=== PATIENT | female | born 1955 | race Caucasian/White ===

== ENCOUNTER 2017-06-20 05:50 | Day surgery (SDC) | payer MEDICARE, OTHER ==
[~2017-06-20] VITALS: Ht 160 cm; Wt 129.3 kg
[~2017-06-20 05:50] MED LIST: GABAPENTIN300 MG PO; LISINOPRIL-HCT1 EAC1 PO; LISINOPRIL-HCT1 EACH PO; MELOXICAM15 MG PO; NOVOLOG FL100 UNIT/1 SUB-Q; NYSTOP60 GM TOP; PROMETHAZINE HC25 M1 PO; PROVENTIL HFA6.7 GM INH; SERTRALINE HCL100 MG PO; SIMVASTATIN10 MG PO; SPACE CHAMBER1 EACH MC; TOUJEO SOL300 UNIT/1 SUB-Q; ZOFRAN ODT4 MG SL
--- NOTE | 2017-06-20 06:44 | NUR ---
0600 VOMITING APPROX 50MLS YELLOW BILE FLUID.NEED BLOOD DRAW AND IV START.
--- NOTE | 2017-06-20 08:19 | NUR ---
06/20/17 0819 [facility] 97% O2 REMOVED. PT PASSING LARGE AMOUNTS OF AIR FROM COLON.
--- NOTE | 2017-06-21 09:22 | OR ---
[facility] [address], [place] [address] Signed DATE OF PROCEDURE: 06/20/17 PREOPERATIVE DIAGNOSES Nausea and vomiting. Diabetic gastroparesis. History of diarrhea. Gastroesophageal reflux disease. POSTOPERATIVE DIAGNOSES Moderate gastroduodenitis. Multiple shallow antral gastric ulcers. Moderate distal esophagitis. Internal hemorrhoids. PROCEDURES PERFORMED Esophagogastroduodenoscopy with CLOtest and biopsies of the duodenum, pyloric bulb antrum and GE junction. Colonoscopy with random colon biopsies. ESTIMATED BLOOD LOSS: None. INDICATIONS A 62-year-old, diabetic f emale with known gastroparesis and acid reflux. She also has a long history of diarrhea. Lately, she has been having more and more trouble with nausea and vomiting. She tells me she has never had upper endoscopy. She did have a colonoscopy more than 10 years ago and to her knowledge that was negative. It was performed by Dr. Lorenz in [place], [place]. There is no family history of colon cancer or polyps. In the office, I gave her a pamphlet on both upper and lower endoscopy. We reviewed the nature of the 2 tests along with the risks including, but not limited to gas bloating, crampy abdominal pain bleeding perforation requiring surgery, and missed diagnosis. We also discussed the need for IV conscious sedation. Given her body mass index of 51 with a very heavy thick neck and her multiple medical comorbidities including her diabetes, we asked that an anesthesia provider help us with increased monitoring and sedation with Propofol. That proved to be a wide wang decision. She had expressed understanding and wished to proceed. PROCEDURE IN DETAIL Maricruz was taken into our endoscopy suite and placed in the supine semi-recumbent position. The posterior oropharynx was anesthetized with Hurricaine spray. A bite block was utilized for the case. She was given IV sedation with Propofol per our nurse cone trucker. The adult gastroscope was introduced and advanced under direct visualization of the camera out into the third portion of the duodenum. The 2nd and 3rd Electronically Signed By: GENEVA FELIX MD 06/21/17 0922 PATIENT NAME: MARICRUZ LINN OPERATIVE REPORT DATE OF : 55 PHYSICIAN: GENEVA FELIX MD REPORT #: [id number] REPORT IS CONFIDENTIAL AND NOT TO BE RELEASED WITHOUT AUTHORIZATION [facility] [address], [place] [address] Signed portions of the duodenal were unremarkable. We went ahead and took a biopsy of the duodenum because of the history of diarrhea. The pyloric channel, however, showed significant inflammatory changes but no obvious ulcerations. We went ahead and took a biopsy of the pyloric channel, as well. Once back in the stomach, she had diffuse moderate punctate hemorrhagic gastritis. She had multiple small shallow ulcers in the antrum. We went and took a biopsy of the antrum for pathologic review as well as CLOtest. Upon retroflexion of the scope, this continued in the upper stomach, although to a lesser degree. She does not appear to have an obvious hiatal hernia. There is no gastric or esophageal varices. The scope was withdrawn up through the area of the GE junction, which was compliant without stricture. The GE junction and distal esophagus were irritated consistent with vomiting. We took a biopsy at the GE junction. The middle and upper esophagus were unremarkable. After this, the gas was suctioned out the gastroscope removed. Maricruz tolerated the procedure quite well. Maricruz was then rotated into the left lateral decubitus position, she was maintained on IV sedation with the Propofol. A digital rectal exam was performed and this was unremarkable. The adult colonoscope was introduced and advanced all around into the cecum under direct visualization of the camera. Maricruz has a fairly long redundant colon. Her prep was overall good. There was some particulate stool matter I could not suction out completely. The scope was then slowly withdrawn. We saw no pathology through the entire colon or rectum. We went ahead and took several random biopsies of the colon because of the history of diarrhea. Upon retroflexion of the scope, she does have moderate internal hemorrhoid columns. After this, the gas was suctioned out and the colonoscope removed. Maricruz tolerated the procedure quite well. RECOMMENDATIONS Maricruz needs to consider doubling her proton pump inhibitor for 6-8 weeks to see if stomach will clear. If she continues to have trouble, she may need a pyloroplasty to help empty the stomach secondary to the gastroparesis. Otherwise, I will see her back in the office in 7-14 days to review her results. MD TWYLA Loya/Vivek /[id number] Electronically Signed By: GENEVA FELIX MD 06/21/17 0922 PATIENT NAME: MARICRUZ LINN [facility] OPERATIVE REPORT DATE OF : 55 PHYSICIAN: GENEVA FELIX MD REPORT #: [id number] REPORT IS CONFIDENTIAL AND NOT TO BE RELEASED WITHOUT AUTHORIZATION [place] [phone] Signed cc: JULIO Messina Electronically Signed By: GENEVA FELIX MD 06/21/17921 PATIENT NAME: MARICRUZ LINN OPERATIVE REPORT DATE OF : 55 PHYSICIAN: GENEVA FELIX MD REPORT #: [id number] REPORT IS CONFIDENTIAL AND NOT TO BE RELEASED WITHOUT AUTHORIZATION
[2017-09-22] MEDS ORDERED: FUROSEMIDE40 MG PO (12:13)
[2017-09-22] MEDS ORDERED: LISINOPRIL20 MG PO (12:13)
[2017-09-22] MEDS ORDERED: PREDNISONE20 MG PO (12:13)
== END 2017-06-20 08:53 | disposition home or self-care (01) ==
LOC: OPS 05:50 → DS 05:50 → OPS 06:45
PROVIDERS: Colon & Rectal Surgery
PROC: 0DB48ZX Excision of Esophagogastric Junction, Via Natural or Artificial Opening Endoscopic, Diagnostic (ICD-10-PCS; 2017-06-20)
PROC: 0DB68ZX Excision of Stomach, Via Natural or Artificial Opening Endoscopic, Diagnostic (ICD-10-PCS; 2017-06-20)
PROC: 0DB78ZX Excision of Stomach, Pylorus, Via Natural or Artificial Opening Endoscopic, Diagnostic (ICD-10-PCS; 2017-06-20)
PROC: 0DBE8ZX Excision of Large Intestine, Via Natural or Artificial Opening Endoscopic, Diagnostic (ICD-10-PCS; principal; 2017-06-20 06:45)
PROC: 0DB98ZX Excision of Duodenum, Via Natural or Artificial Opening Endoscopic, Diagnostic (ICD-10-PCS; 2017-06-20 06:45)
DX: K29.51 Unspecified chronic gastritis with bleeding (principal); K29.80 Duodenitis without bleeding; K64.8 Other hemorrhoids; R19.7 Diarrhea, unspecified; E11.43 Type 2 diabetes mellitus with diabetic autonomic (poly)neuropathy; K31.84 Gastroparesis; E11.42 Type 2 diabetes mellitus with diabetic polyneuropathy; K21.9 Gastro-esophageal reflux disease without esophagitis; I10 Essential (primary) hypertension; J45.909 Unspecified asthma, uncomplicated; G47.33 Obstructive sleep apnea (adult) (pediatric); E78.5 Hyperlipidemia, unspecified; E66.01 Morbid (severe) obesity due to excess calories; G89.29 Other chronic pain; M54.5 Low back pain; F32.9 Major depressive disorder, single episode, unspecified; Z90.710 Acquired absence of both cervix and uterus; Z99.81 Dependence on supplemental oxygen; Z68.43 Body mass index [BMI] 50.0-59.9, adult; Z98.890 Other specified postprocedural states; Z88.1 Allergy status to other antibiotic agents; Z79.899 Other long term (current) drug therapy
CPT/HCPCS: 00740; 80053; 86677; 88305; J2250; J2405; J2704; J3010; J7120

== ENCOUNTER 2017-08-05 00:45 | Emergency (ER) | payer MEDICARE, OTHER ==
[~2017-08-05] VITALS: Ht 160 cm; Wt 129.3 kg
[2017-08-05] MEDS ORDERED: LISINOPRIL10 MG PO (01:05)
[2017-08-05] MEDS ORDERED: SYMBICORT 16010.2 GM INH (01:06)
[2017-08-05] MEDS ORDERED: OMEPRAZOLE20 MG PO (01:06)
--- NOTE | 2017-08-05 07:28 | EKG ---
[facility] [address] [facility] [place] [address] Signed Normal sinus rhythm Septal infarct , age undetermined Abnormal ECG When compared with ECG of 14-JUN-2017 10:11, T wave inversion more evident in Lateral leads Confirmed by GREG PALOMARES MD ([id number]) on 08/05/2017 7:28:12 AM Electronically Signed By: GREG PALOMARES MD 08/05/17 0728 PATIENT NAME: LINNMARICRUZ Electrocardiogram DATE OF : 55 PHYSICIAN: GREG PALOMARES MD REPORT #: [id number] REPORT IS CONFIDENTIAL AND NOT TO BE RELEASED WITHOUT AUTHORIZATION
[2017-09-22] MEDS ORDERED: PREDNISONE20 MG PO (12:13)
[2017-09-22] MEDS ORDERED: LISINOPRIL20 MG PO (12:13)
[2017-09-22] MEDS ORDERED: FUROSEMIDE40 MG PO (12:13)
== END 2017-08-05 05:03 | disposition home or self-care (01) ==
LOC: ED 00:45
DX: J45.901 Unspecified asthma with (acute) exacerbation (principal); J18.9 Pneumonia, unspecified organism; R91.1 Solitary pulmonary nodule; I10 Essential (primary) hypertension; E78.00 Pure hypercholesterolemia, unspecified; F32.9 Major depressive disorder, single episode, unspecified; E11.43 Type 2 diabetes mellitus with diabetic autonomic (poly)neuropathy; K31.84 Gastroparesis; E66.9 Obesity, unspecified; Z90.710 Acquired absence of both cervix and uterus; Z90.89 Acquired absence of other organs; Z88.8 Allergy status to other drugs, medicaments and biological substances; Z79.899 Other long term (current) drug therapy; Z79.4 Long term (current) use of insulin
CPT/HCPCS: 71020; 71260; 80053; 83880; 84484; 85025; 85379; 93005; 93010; 96374; 99284; J2405; Q9967

== ENCOUNTER 2017-08-07 14:01 | Emergency (ER) | payer MEDICARE, OTHER ==
[~2017-08-07] VITALS: Ht 160 cm; Wt 129.3 kg
[~2017-08-07 14:01] MED LIST changes: +LISINOPRIL10 MG PO; +OMEPRAZOLE20 MG PO; +SYMBICORT 16010.2 GM INH
[2017-08-07] MEDS ORDERED: LEVAQUIN500 MG PO (14:49)
[2017-08-07] MEDS ORDERED: VIRTUSSIN AC L118 ML PO (14:49)
[2017-09-22] MEDS ORDERED: FUROSEMIDE40 MG PO (12:13)
[2017-09-22] MEDS ORDERED: PREDNISONE20 MG PO (12:13)
[2017-09-22] MEDS ORDERED: LISINOPRIL20 MG PO (12:13)
== END 2017-08-07 15:06 | disposition home or self-care (01) ==
LOC: ED 14:01
DX: J44.0 Chronic obstructive pulmonary disease with (acute) lower respiratory infection (principal); J44.1 Chronic obstructive pulmonary disease with (acute) exacerbation; J20.9 Acute bronchitis, unspecified; I10 Essential (primary) hypertension; E11.43 Type 2 diabetes mellitus with diabetic autonomic (poly)neuropathy; K31.84 Gastroparesis; E78.00 Pure hypercholesterolemia, unspecified; F32.9 Major depressive disorder, single episode, unspecified; E66.01 Morbid (severe) obesity due to excess calories; Z90.710 Acquired absence of both cervix and uterus; Z90.89 Acquired absence of other organs; Z88.8 Allergy status to other drugs, medicaments and biological substances; Z79.899 Other long term (current) drug therapy; Z79.4 Long term (current) use of insulin
CPT/HCPCS: 99283

== ENCOUNTER 2017-09-18 14:25 | Emergency (ER) | payer MEDICARE, OTHER ==
[~2017-09-18] VITALS: Ht 160 cm; Wt 140.6 kg
[~2017-09-18 14:25] MED LIST changes: +LEVAQUIN500 MG PO; +VIRTUSSIN AC L118 ML PO
[2017-09-18] MEDS ORDERED: LEVAQUIN500 MG PO (18:02)
--- NOTE | 2017-09-19 07:16 | EKG ---
[facility] [address] [facility] [place] [address] Signed Sinus tachycardia Low voltage QRS Septal infarct (cited on or before 05-AUG-2017) Abnormal ECG When compared with ECG of 05-AUG-2017 00:54, T wave inversion no longer evident in Lateral leads Confirmed by GREG PALOMARES MD ([id number]) on 09/19/2017 7:16:35 AM Electronically Signed By: GREG PALOMARES MD 09/19/17 0716 PATIENT NAME: MARICRUZ LINN SHANNA Electrocardiogram DATE OF : 55 PHYSICIAN: GREG PALOMARES MD REPORT #: [id number] REPORT IS CONFIDENTIAL AND NOT TO BE RELEASED WITHOUT AUTHORIZATION
[2017-09-22] MEDS ORDERED: PREDNISONE20 MG PO (12:13)
[2017-09-22] MEDS ORDERED: FUROSEMIDE40 MG PO (12:13)
[2017-09-22] MEDS ORDERED: LISINOPRIL20 MG PO (12:13)
== END 2017-09-18 18:37 | disposition home or self-care (01) ==
LOC: ED 14:25
DX: J40 Bronchitis, not specified as acute or chronic (principal); E11.65 Type 2 diabetes mellitus with hyperglycemia; I10 Essential (primary) hypertension; J45.909 Unspecified asthma, uncomplicated; E11.43 Type 2 diabetes mellitus with diabetic autonomic (poly)neuropathy; K31.84 Gastroparesis; Z90.710 Acquired absence of both cervix and uterus; Z79.899 Other long term (current) drug therapy; Z79.4 Long term (current) use of insulin; F32.9 Major depressive disorder, single episode, unspecified; Z86.711 Personal history of pulmonary embolism
CPT/HCPCS: 71010; 80053; 81001; 83690; 83880; 84484; 85025; 85610; 93005; 93010; 94640; 96361; 96374; 99284; J7030

== ENCOUNTER → 2017-09-22 | Emergency (ER) | payer MEDICARE, OTHER ==
[~2017-09-22] VITALS: Ht 160 cm; Wt 140.6 kg
[~2017-09-22] MED LIST changes: +FUROSEMIDE40 MG PO; +LISINOPRIL20 MG PO; +PREDNISONE20 MG PO
--- NOTE | 2017-09-22 22:06 | EKG ---
[facility] [address] [facility] [place] [address] Signed Sinus rhythm with premature atrial complexes Low voltage QRS Anteroseptal infarct (cited on or before 05-AUG-2017) Abnormal ECG When compared with ECG of 18-SEP-2017 15:41, premature atrial complexes are now present Confirmed by CONRAD SHOEMAKER MD ([id number]) on 09/22/2017 10:06:02 PM Electronically Signed By: CONRAD SHOEMAKER MD 09/22/17 2206 PATIENT NAME: MARICRUZ LINN SHANNA Electrocardiogram DATE OF : 55 PHYSICIAN: CONRAD SHOEMAKER MD REPORT #: [id number] REPORT IS CONFIDENTIAL AND NOT TO BE RELEASED WITHOUT AUTHORIZATION
== END ==
LOC: ED 10:11
DX: R06.00 Dyspnea, unspecified (principal); J81.1 Chronic pulmonary edema; R60.0 Localized edema; E11.9 Type 2 diabetes mellitus without complications; I10 Essential (primary) hypertension; E78.00 Pure hypercholesterolemia, unspecified; F32.9 Major depressive disorder, single episode, unspecified; J45.909 Unspecified asthma, uncomplicated; E66.9 Obesity, unspecified; Z90.710 Acquired absence of both cervix and uterus; Z90.89 Acquired absence of other organs; Z88.8 Allergy status to other drugs, medicaments and biological substances; Z79.899 Other long term (current) drug therapy; Z79.4 Long term (current) use of insulin
CPT/HCPCS: 80053; 83880; 85025; 93005; 93010; 94640; 99284; J7512

== ENCOUNTER 2018-02-07 04:49 | Emergency (ER) | payer MEDICARE, OTHER ==
[~2018-02-07] VITALS: Ht 160 cm; Wt 140.6 kg
[2018-02-07] MEDS ORDERED: TAMIFLU75 MG PO (05:47)
== END 2018-02-07 05:57 | disposition home or self-care (01) ==
LOC: ED 04:49
DX: J11.1 Influenza due to unidentified influenza virus with other respiratory manifestations (principal); I10 Essential (primary) hypertension; E78.00 Pure hypercholesterolemia, unspecified; F32.9 Major depressive disorder, single episode, unspecified; E11.43 Type 2 diabetes mellitus with diabetic autonomic (poly)neuropathy; K31.84 Gastroparesis; J45.909 Unspecified asthma, uncomplicated; E66.9 Obesity, unspecified; Z88.8 Allergy status to other drugs, medicaments and biological substances; Z79.899 Other long term (current) drug therapy; Z79.4 Long term (current) use of insulin
CPT/HCPCS: 96372; 99283; J1885

== ENCOUNTER 2018-02-08 07:00 | Inpatient (IN) | payer MEDICARE, OTHER ==
[~2018-02-08] VITALS: Ht 160 cm; Wt 140.7 kg
[~2018-02-08 07:00] MED LIST changes: +TAMIFLU75 MG PO
--- NOTE | 2018-02-08 10:00 | NUR ---
PATIENT TO FLOOR FROM ED, PATIENT ADMITTED WITH INFLUENZA AND PNEAMONIA. PATINET EXPERIENCEING HYPERGYLCEMIA, SLIDING SCALE INITIATED. PATIENT REPORTS SHE HAS NOT BEEN TAKING HER LASIX AND HAS NOT PROVIDED HERSELF WITH ANY INSULIN SLIDING SCALE, SECONDARY TO FEELING LOSS OF APPETITE. PATIENT ALSO REPORTED NO BM X4 DAYS, ADMINISTERED SUPPOSITORY AND MOM. PATIENT'S PANNUS EXCORIATED WITH YEASTAL INFECTION, NIO FOR NYSTATIN POWDER. DYE MACHINE TENDER ASSISTING PATIENT WITH SHOWER.
--- NOTE | 2018-02-08 11:50 | NUR ---
PATIENT ON COMMODE, NEEDED HELP WIPING AFTER.2 2 PERSON ASSIST IN SHOWER WITH THIS VASU AND JUANA. PATIENTS SKIN IS VERY INFLAMED UNDER LEFT BREAST AND PANNUS AREA, ESPECIALLY LEFT SIDE. WASHED AND DRIED THIS ARE THOROUGHLY. VISITOR IN TO SEE PATIENT. CALL LIGHT IN REACH
--- NOTE | 2018-02-08 13:05 | NUR ---
PATIENT CALLED FROM COMMODE, NEEDING HELP WIPING. THIS COUNTERSINKER ASSISTED HER AND PATIENT GOT BACK INTO BED. VISITOR BROUGHT PATIENTS CPAP AMCHINE IN AND PATIENT PLANNED ON WEARING IT WHILE NAPPING. CALL LIGHT IN REACH. NO OTHER NEEDS ATT
--- NOTE | 2018-02-08 14:21 | NUR ---
PATIENT LYING IN BED, CPAP ON. VITALS AND I/OS DONE. RT IN ROOM WITH PATIENT. CALL LIGHT IN REACH.
--- NOTE | 2018-02-08 17:57 | NUR ---
PATIENT LYING IN BED, O2 MASK ON. VITALS NIA/OS DONE. CALL LIGHT IN REACH
--- NOTE | 2018-02-08 17:57 | NUR ---
PATIENT BLOOD SUGAR 452, REPORTED TO DR. SHOEMAKER. NEW ORDER FOR INCREASED SLIDING SCALE. ADMINISTERED 35 UNITS NOVOLOG PER SLIDING SCALE. SHEREE JACOBSON AND SOLE JACOBSON VERIFIED DOSE OF INSULIN ON SLIDING SCALE. VS STABLE, PATIENT BREATHING EASY. ABLE TO AMBULATE INTO BATHROOM WITH STBY. COMPLAINTS OF HEADACHE 4/10 ON PAINS SCALE. DIMMED LIGHTS IN ROOM.
--- NOTE | 2018-02-08 18:35 | NUR ---
PATIENT ATE 100% OF DINNER, ADMINISTERED 25 UNITS OF INSULIN FOR MEAL COVERAGE PER ORDER. PATIENT RESTING BACK IN BED. ADMINISTERED TYLENOL PRN. PATIENT BREATHING EASY, OXYGEN SATURATION 95% ON 2L OXIMASK. PATIENT TOLERATING ACTIVITY IN ROOM, AMBULATING INTO BATHROOM.
--- NOTE | 2018-02-08 18:37 | NUR ---
PATIENT TO FLOOR ADMITTED WITH INFLUENZA AND PNEAMONIA. 2L OXIMASK SATURATION 95%, BREATHING EASY. CONTINIOUS PULSE OX ON, PATIENT USES CPAP WHEN NAPPING AND AT NIGHT. CBG 452 AND CONTINUES TO TREND UPWARD THROUGHOUT DAY. DR. SHOEMAKER ACTIVELY MAKING CHANGES TO SLIDING SCALE AND BASAL AMOUNT WITH MEALS. PATIENT EATING WELL, 100% AT DINNER- A OPEN FACED TURKEY SANDWHICH WITH POTATOES AND A FRUIT CUP. HAS COMPLAINTS OF MIGRAINE RATES 5/10 ON PAIN SCALE, ADMINISTERED PRN TYLENOL. PATIENT CALLS ROBERTO, HAS HX OF GLF AT HOME. LARGE BM TODAY, ADMINISTERED MOM AND SUPPOSITORY. URINE OUTPUT HAS INCREASED, ABLE TO AMBULATE INTO BATHROOM.
--- NOTE | 2018-02-08 19:15 | NUR ---
BEDSIDE REPORT RECEIVED FROM KAVON BRISCOE. PT SLEEPING IN ROOM WITH CPAP ON, SPO2 88%, RT PHONED AT THIS TIME TO ASSIST IN HAVING OXYGEN BLED INTO CPAP. PT AWAKENS, OXYMASK ON AT THIS TIME. IVF INFUSING WNL. PT HAS NO REQUESTS AT THIS TIME, BED ALARM IS SET. CALL LIGHT IN REACH.
--- NOTE | 2018-02-08 19:45 | NUR ---
BED ALARM SOUNDING, PT ASSISTED TO RESTROOM, SBA, GAIT UNSTEADY. 400 ML VOID, ASSISTED PT TO CLEAN LATANYA AREA, EDUCATION PROVIDED RE HYGIENE. PT BACK IN BED, SPO2 90% ON 2L OXYMASK. BED ALARM ON. IVF INFUSING WNL. CALL LIGHT IN REACH. EDUCATION PROVIDED TO PT TO USE CALL LIGHT.
--- NOTE | 2018-02-08 20:43 | NUR ---
VITALS, IS AND OS AND ASSESSMENT COMPLETE. RT IN ROOM FOR NEBULIZER, 2L OXGYEN BLED INTO CPAP FOR SLEEP. 30 UNITS SS INSULIN ADMINISTERED FOR CBG 436. PT SITTING UP AT SIDE OF BED 94% ON 2L OXYMASK. FINE CRACKLES AUSCULTATED BILATERALLY LOWER LUNGS. PT DENIES SOB. RATES PAIN 7/10 IN BACK, HIPS, HEADACHE IMPROVED PER PT. PT GIVEN DIET SPRITE, ICE WATER. NYSTATIN POWDER AND PILLOW CASE UNDER PANIS, REDNESS NOTED, SKIN INTACT. IV FLUSHED WNL. CALL LIGHT IN REACH.
--- NOTE | 2018-02-08 21:38 | NUR ---
Charge nurse rounding note: - Pt awake, sitting edge of bed. O2 2L oxy mask, pt takes off at times, redirected to place back on. Con tpulse ox sats 91% room air, 95% with oxymask. warm wash cloth given. pt doing own hs care. Bed alarm on, Pt continues on droplet isolation.
--- NOTE | 2018-02-08 22:19 | NUR ---
up to brp, voided dark yellow urine. Requried one assist. Back to bed, O2 2L Oxymask, cont pulse ox in place sats 92% on retunr, no c/o sob, tolerated well
--- NOTE | 2018-02-08 23:05 | NUR ---
CHECKED ON PT, PT SLEEPING, CPAP ON, 4L OXYGEN BLED INTO CPAP, SPO2 90-91%. RT KARTIK PHONED BY COOK BOAT TESHA TO NOTIFY DUE TO CONNECTION OF OXYGEN AT BASE OF MACHINE. WILL CONTINUE TO CLOSELY MONITOR. PT BREATHING NON-LABORED, EYES CLOSED.
--- NOTE | 2018-02-09 00:11 | NUR ---
REASSESSED PT, SPO2 93% ON CPAP WITH 4L OXYGEN BLED INTO CPAP MACHINE AT BASE. PT APPEARS TO BE SLEEPING ON SIDE, VISIBLE CHEST RISE. LIGHTS OFF IN ROOM.
--- NOTE | 2018-02-09 02:05 | NUR ---
CALL LIGHT ANSWERED, SBA WITH FWW TO RESTROOM FOR VOID. PT AMBULATED WELL WITH 2L OXYGEN BY NC, 96% W AMBULATION. BACK TO BED. LUNGS CLEAR IN UPPER LOBES BILATERALLY, FINE CRACKLES NOTED BILATERALLY LOWER LOBES. PT DENIES ANY PAIN AT THIS TIME. BOWEL TONES ACTIVE X 4. CPAP BACK ON PT, ASSISTED TO REPOSITION BACK TO BED, CPAP ON WITH 4L OXYGEN, SPO2 94%. LIGHTS OFF IN ROOM, CALL LIGHT IN REACH. BED ALARM SET.
--- NOTE | 2018-02-09 02:45 | NUR ---
VITAL SIGNS COMPLETE AT THIS TIME, MANUAL BP 136/78, HR 76, SPO2 92% ON CPAP WITH 4L OXYGEN, AFEBRILE. CBG REASSESSED, 249. LIGHTS OFF IN ROOM. BED ALARM SET, NEW BAG OF IVF INFUSING WNL.
--- NOTE | 2018-02-09 04:00 | NUR ---
CALL LIGHT ANSWERED, PT GIVEN ADDITIONAL PILLOW REQUESTED. SPO2 93% ON CPAP. BED ALARM SET, IVF INFUSING, CALL LIGHT IN REACH.
--- NOTE | 2018-02-09 05:46 | NUR ---
VITALS AND IS AND OS COMPLETE. PT STANDING WEIGHT 302.1 LBS, 137 KG. PT BACK IN BED, DISTANT EXW HEARD BILATERALLY UPPER LOBES, FINE CRACKLES IN BASES BILATERALLY, RT PHONED FOR PRN NEBULIZER AT THIS TIME. PT BACK IN BED, CPAP ON WITH 4L OXYGEN, PT C/O SOB AFTER AMBULATING TO RESTROOM WITH SBA AND FWW, HR 92. CALL LIGHT IN REACH. PT REQUESTING DIET SPRITE, WATER.
--- NOTE | 2018-02-09 06:34 | NUR ---
PT ON CPAP W 4L OXYGEN FOR SLEEP THROUGHOUT NIGHT, USING 2L OXYMASK AT REST WHILE AWAKE TO MAINTAIN SATURATIONS >90%. PT RECEIVED PRN NEB X 1. PAIN CONTROLLED WITH TYLENOL. PT HAS DRY COUGH THROUGHOUT SHIFT, NON-PRODUCTIVE. IVF INFUSING THROUGHOUT SHIFT WNL. SBA WITH FWW TO RESTROOM FOR VOIDS, SUFFICIENT OUTPUT.
--- NOTE | 2018-02-09 06:57 | NUR ---
CALL LIGHT ANSWERED, PT STATES "I'M GOING TO THROW UP". PT HAS EMESIS BAG, NO EMESIS AT THIS TIME. PRN ZOFRAN IV ADMINISTERED. PT SITTING UP AT SIDE OF BED, CPAP BACK ON, SPO2 94% WHEN PROMPTED, PT HAD MASK OFF AND SPO2 87%. CALL LIGHT IN REACH.
--- NOTE | 2018-02-09 07:05 | NUR ---
BEDSIDE HANDOFF REPORT RECEIVED FROM PRICING CLERK RN. PT RESTING IN BED, WEARING CPAP. IV FLUIDS INFUSING LR AT 150ML/HR. PT DENIES NEEDS AT THIS TIME. BED ALARM ON.
--- NOTE | 2018-02-09 09:15 | NUR ---
PT SITTING ON EDGE OF BED. PT NAUSEATED, VOMITING, MD NOTIFED, NEW ORDER FOR COMPAZINE, 5 MG IV COMPAZINE GIVEN. PT ON OXYMASK 2L, O2 SATS 92%, LUNG SOUNDS CLEAR WITH COARSE BASES. BOWEL TONES ACTIVE. PT ATE SMALL AMOUNT OF BREAKFAST, 25 UNITS CORRECTIONAL INSULIN HELD PER ORDER, GIVEN 5 UNITS SS NOVOLOG AND 35 UNITS LEVEMIR. PT WIHTOUT EDEMA, CMS INTACT. IV INFUSING LR AT 150 ML/HR, FLUSHED PATENT, IV ABX GIVEN. PT REQUESTING TYLENOL FOR HEADAHCE, 500 MG GIVEN. PT ASSISTED TO BATHROOM, SBA. DISCUSSED PLAN OF CARE. PT DENIES OTHER NEEDS AT THIS TIME.
--- NOTE | 2018-02-09 10:52 | EKG ---
[facility] [address] [facility] [place] [address] Signed Normal sinus rhythm with sinus arrhythmia Low voltage QRS Possible Anterolateral infarct (cited on or before 18-SEP-2017) Abnormal ECG When compared with ECG of 22-SEP-2017 10:21, premature atrial complexes are no longer present Confirmed by CONRAD SHOEMAKER MD ([id number]) on 02/09/2018 10:52:23 AM Electronically Signed By: CONRAD SHOEMAKER MD 02/09/18 1052 PATIENT NAME: MARICRUZ LINN SHANNA Electrocardiogram DATE OF : 55 PHYSICIAN: CONRAD SHOEMAKER MD REPORT #: [id number] REPORT IS CONFIDENTIAL AND NOT TO BE RELEASED WITHOUT AUTHORIZATION
--- NOTE | 2018-02-09 11:45 | NUR ---
PT WITH INCREASED WORK OF BREATHING AND OXYGEN DEMAND, PT LUNG SOUNDS WITH COARSE CRACKLES THROUGHOUT. IV INFUSION STOPPED. MD NOTIFIED AND ASKED TO COME TO BEDSIDE. VERBAL ORDER TO GIVEN 20 MG IV LASIX, GIVEN. ORDER TO PLACE RODRIGUEZ. ORDER FOR STAT CHEST XRAY. PT O2 SATS 88-90% ON 10L WITH HOME CPAP. FOLY CATH PLACED. CHEST XRAY COMPLTED. VERBAL ORDER TO DISCONTINUE IV FLUIDS. PT TO BE TRANSFERED TO CCU. RTT AT BEDSIDE, ASSISTING WITH CPAP AND OXYGEN.
--- NOTE | 2018-02-09 11:50 | NUR ---
62 YR OLD FEMALE PATIENT OF DR. SHOEMAKER ADMITTED TO CCU FROM MED-SURG VIA BED WITH DX OF RESP DISTRESS/PNEUMONIA. IS FLU +. IS IN DROPLET PRECAUTIONS. BIPAP APPLIED AT 50% FIO2 I=18, E=8. IS ABLE TO SAY FEW WORDS. IS DYSPNIC, FACE FLUSHED. RODRIGUEZ CATH PATENT.
--- NOTE | 2018-02-09 12:30 | NUR ---
ACCUCHECK-196, DR. SHOEMAKER AWARE. ROUTINE INSULIN [address] SHOEMAKER AWRE PT NOT EATING AT THIS TIME.
--- NOTE | 2018-02-09 13:30 | NUR ---
SITTING UP AT BEDSIDE WITH OXYMASK ON AT 4 L.
--- NOTE | 2018-02-09 13:45 | NUR ---
LAYING BACK DOWN. BIPAP REAPPLIED. BLOOD CULTURES DRAWN EARLIER.
--- NOTE | 2018-02-09 15:00 | NUR ---
ASLEEP WITH BIPAP ON RR-26 TO 30 BPM.
--- NOTE | 2018-02-09 18:15 | NUR ---
ASLEEP. REMAINS ON BIPAP. NO FUTHER CHANGES.
--- NOTE | 2018-02-09 19:04 | NUR ---
DR. SHOEMAKER UPDATED ON U/O. LR AT 75 ML/HR ORDERED AND HUNG.
--- NOTE | 2018-02-09 20:14 | NUR ---
PT WANTING TO SIT AT EDGE OF BED. ASSISTED TO THIS POSITION. OFF BIPAP BRIEFLY BUT BACK ON FOR NEB TX. OFF AFTERWARD TO TAKE GLUCERNA IS HUNGRY. ALSO GIVEN 500MG TYLENOL PO FOR TEMP 103.1 AND PT C/O MON[place] 06/21. LIGHTS LOW TO HLEP WITH [place]. BACK IN BED. HAS INC WORK OF BREATHING WITH ANY EXERTION. CATH CARE DONE. NYSTATIN TO REDDENED AREAS UNDER PANNIS, LT SIDE IS MORE REDDENED THAN RT.
--- NOTE | 2018-02-09 20:51 | NUR ---
DR SHOEMAKER CALLED RE BS, WHILE ON PHONE PT IN TO PSVT UP TO 185 LASTING ABOUT [address] SHOEMKAER NOW IN DEPT. PT GIVEN 5MG LOPRESSOR IV.
--- NOTE | 2018-02-09 21:16 | NUR ---
PT RESTING DOZING, RR STILL 28. TORRADOL 15MG IV GIVEN FOR [place] AND FEVER.
--- NOTE | 2018-02-09 22:22 | NUR ---
PT STARTING TO SIT AT EDGE OF BED ON OWN. REMINDED NOT TO GET UP WITHOUT CALLING. CALL LIGHT HAD JUST FALLEN TO FLOOR. ASSISTED TO SIT AT BEDSIDE. PT THEN FELT LIKE WAS GOING TO HAVE BM. ASSISTED TO COMMODE PT IS UNSTEADY ON FEET. PASSED GAS, BACK TO BED. ON OXYMASK AT 4 L NC FO THIS, OXYMETER HAD PULLED OFF DURING THIS, BUT WHEN BACK TO BED SAT 92%. LESS SOB. BACK ON BIPAP AFTER MEDS GIVEN. PT REQUESTIN BE CALLED SHE DOESN'T KNOW IF HE WAS NOTIFIED TO TRANSFER TO CCU. WILL CALL.
--- NOTE | 2018-02-09 22:30 | NUR ---
CALLED, MESSAGE LEFT HE DID NOT ANSWER.
--- NOTE | 2018-02-09 23:57 | NUR ---
HAD BEEN RESTING WELL. AWAKE NOW. GIVEN GLUCERNA AND MIKAL IT WELL. T 99.1. HAS LOOSE COUGH WITH A LOT OF UPPER AIRWAY NOISE, DIM BASES. HAS LOOSE COUGH. PT AFFIRMS THAT SHE WOULD LIKE A PRN NEB TX. RT CALLED.
--- NOTE | 2018-02-10 00:34 | NUR ---
DR SHOEMAKER CALLED RE URINE OUTPUT. WILL CONT TO MONITOR. PT CURRENTLY SITTING AT EDGE OF BED AND MKIAL BEING ON OXYMASK WELL. MIKAL NEB WELL, HAS LOOSE COUGH. CONT TO HAVE [place] WHICH DOES INC WITH COUGHING BUT OTHERWISE HAS IMPROVED, WORK OF BREATHING IS BETTER.
--- NOTE | 2018-02-10 02:42 | NUR ---
HAS BEEN SLEEPING WELL,OXYMASK IN PLACE. AWAKENED WHEN MED GIVEN. PT TURNED SELF AND THEN BIPAP BACK ON.
--- NOTE | 2018-02-10 04:06 | NUR ---
AWAKE, OFF BIPAP. HAS LOOSE COUGH WHEN FIRST AWAKENS. C/O [place] THAT WORSENS WITH COUGHING. GIVEN 15MG TORADOL IV.
--- NOTE | 2018-02-10 04:49 | NUR ---
SAT AT EDGE OF BED FOR ABOUT 30 MIN. REQUESTED HER ACAPELLA AND USED IT, STATED IT MADE HER FEEL BETTER. NAUSEATED AFTER BEING BACK IN BED. GIVEN 4MG ZOFRAN IV. STATES HAS HX OF GASTROPARESIS.
--- NOTE | 2018-02-10 05:06 | NUR ---
BAKC ON BIPAP PER PT REQUEST.
--- NOTE | 2018-02-10 06:09 | NUR ---
SLEEPING WITH BIPAP IN PLACE.
--- NOTE | 2018-02-10 08:40 | NUR ---
PT IN BED WITH BIPAP ON. PT ASSISTED TO EDGE OF BED. RT IN ROOM. CBG OBTAINED AND 107 AT THIS TIME, NOVOLOG HELD. LR RUNNING AT 125 ML/HR. C/O OF HEADACHE AND NAUSEA. PT IS FEBRILE AT 100.1F AT THIS TIME TIME, PRN TYLENOL TO BE GIVEN. ASSISTED PT TO EDGE OF BED. SPO2 NOTED TO BE 87% WHEN PT MOVING BUT RETURNED TO 95%. PT REQUESTING MILK OF MAG TO ASSIST WITH BM. LAST BM ON 02/09/18.
--- NOTE | 2018-02-10 10:40 | NUR ---
PT ASSISTED TO BED SIDE COMMODE. LINDY ABDI NOTED ON BED AND FLOOR. TOTAL BED CHANGE DONE AT THIS TIME. PT CLEANED AND ASSISTED BACK TO BED. BIPAP ON AND CALL LIGHT WITHIN REACH.
--- NOTE | 2018-02-10 10:55 | NUR ---
IN ROOM TO ASSESS PT. LR RATE INCREASED TO 125ML/HR. PT ON BIPAP AT THIS TIME AND IN BED. PT ASSISTED TO CHAIR, TOLERATED WELL. SPO2 CONTINUES TO BE IN 90-95% RANGE. CALL LIGHT WITHIN REACH.
--- NOTE | 2018-02-10 12:07 | NUR ---
PT OFFERED TO LOOK AT LUNCH MENU, DECLINED. PT REQUESTING SF PUDDING AND TO REST.
--- NOTE | 2018-02-10 15:00 | NUR ---
PT REQUESTING TO CONTACT SISTER. NO NUMBER ON FILE. PT REQUESTING TO CONTACT AND ASK TO HAVE PT'S SISTER COME TO HOSPITAL TO DISCUSS BILLS THAT NEED PIAD. P/C TO PT'S , NO ANSWER, LVM AND PROVIDED RETURN PHONE NUMBER.
--- NOTE | 2018-02-10 15:06 | NUR ---
PT'S RETURNED P/C AND WILL HAVE PT'S SISTER COME TO VISIT HER.
--- NOTE | 2018-02-10 15:45 | NUR ---
PT ASSISTED TO BEDSIDE COMMODE. PT ASSISTED BACK TO BED, PT GIVEN BED BATH, PT BETWEEN BIPAP AND OXIMASK, TOLERATED WELL. IV PLACEMENT ATTEMPTED. C/O CHEST PAIN AND AIRWAY TIGHTNESS, SR AND SPO2 ABOVE 90% NOTED. RT CALLED AT THIS TIME, BREATHING TREATMENT GIVEN. PT ASSISTED BACK TO BED, BIPAP ON, PT STATES A DECREASE IN CHEST PAIN/TIGHTNESS, WILL CONTINUE TO MONITOR.
--- NOTE | 2018-02-10 16:35 | NUR ---
PT'S SISTER AT BEDSIDE. PT'S SISTER'S CONTACT INFORMATION UPDATED AT THIS TIME.
--- NOTE | 2018-02-10 19:04 | NUR ---
PROPOFOL DRIP STARTED AT 10 MCG/KG/MIN. BEDSIDE ORDER GIVEN BY . TITRATE FOR COMFORT AND RASS OF -2.
--- NOTE | 2018-02-10 19:12 | NUR ---
NG TUBE PLACED, STOMACH CONTENTS RETURNED, PLACED ON LOW INTERMITANT SUCTION. TUBE PLACED BY RONIT JACOBSON.
--- NOTE | 2018-02-10 19:19 | NUR ---
RESTRAINTS PLACE ON BILAT HANDS TO PROTECT PT AIRWAY.
--- NOTE | 2018-02-10 19:41 | NUR ---
AROUND 1730 PATIENT HAD AWOKEN FROM RESTING. PATIENT UP TO [facility] TO ATTEMPT TO HAVE ANOTHER BM AND REQUESTING A SUPPOSITORY. PT HAD REMAINED ON EITHER 4 L OXYMASK OR 35% BIPAP. PT HAS BECOME INCREASINGLY SHORT OF BREATH IN THE LAST HALF HOUR. IV SITE OBTAINED IN RIGHT UPPER ARM WITH ULTRASOUND, 18 G. PATIENT TOLERATED THIS WELL. BY 1800, PATIENT WAS STATING SHE WAS NOW FEELING MORE AND MORE ANXIOUS AND ALSO STRUGGLING TO BREATH EVEN MORE. PATIENT HAS BEEN GETTING IN AND OUT OF BED AND ATTEMPTING TO BECOME MORE COMFORTABLE, BUT UNABLE TO FIND ANY POSITION OF COMFORT. PT HAS AUDIBLE RHONCHI, THAT HAS ONLY WORSENED THROUGH THE DAY. RT CALLED AND DR. SHOEMAKER CALLED AROUND 1815. ORDER REC'D FOR CHEST XRAY AND ABG. PATIENT CONTINUES TO NEED HELP SITTING UP AT EDGE OF BED TO MAINTAIN SP02, AND HER WORK OF BREATHING WAS BETTER WHEN SITTING UP AND FORWARD. PT STATING, "I'M JUST TIRED, AND WANT TO LAY BACK DOWN." PATIENT DECOMPENSATES WHEN LYING IN BED. DECISION MADE TO INTUBATE PATIENT AND PATIENT WAS INTUBATED AT 1900 WITH A 7.0 MM ETT, SECURED AT 21 AT THE TEETH. PATIENT TOLERATED INTUBATION WELL. PATIENT WAS AGREEABLE TO INTUBATION, AND REQUESTED THIS RN TO CALL HER SISTER LATANYA, AND HER ED. BOTH FAMILY MEMBERS WERE NOTIFIED. RODRIGUEZ REMAINS PATENT DRAINING CONCENTRATED URINE. REPORT GIVEN TO NOC SHIFT RNs.
--- NOTE | 2018-02-10 20:15 | NUR ---
RR 24-26 ON VENT. T 101.[address] SHOEMAKER AWARE. PT GIVEN 1GM TYLENOL PER OGT.OGT NOW CLAMPED. HAD BEEN DRAINING GREEN FLUID. GIVEN 50MCG FENTANYL IV FOR SEDATION. PROPOFOL CURRENTLY AT 45MCG/KG/HR. COUGHING PRODUCTUIVELY OF PINK TINGED SPUTUM, ETT SUCTIONED. CALMER AND RR DEC TO 20 AFTER FENTANYL.
--- NOTE | 2018-02-10 22:15 | NUR ---
PT TRANSFERED TO [facility] PER [facility]. WAS GIVEN FENTANYL 50MCG PRIOR TO MOVING TO [facility]. REPORT GIVEN TO [facility] TEAM. SISTER LATANYA CALLED TO INFORM HER THAT PT HAD LEFT OUR FACILITY. PT'S CPAP, CELL PHONE AND WATCH WERE SENT WITH HER. SISTER WAS INFORMED OF THIS.
--- NOTE | 2018-02-10 22:59 | NUR ---
REPORT TO JOSEPHINE JACOBSON AT [facility] GIVEN AT [phone]
== END 2018-02-10 21:42 | disposition short-term general hospital (02) | DRG 208 ==
LOC: ED 07:00 → CCU 09:25 → MS 09:25 → CCU 02-09 11:50
PROVIDERS: ADMIT Internal Medicine
PROC: 5A09357 Assistance with Respiratory Ventilation, Less than 24 Consecutive Hours, Continuous Positive Airway Pressure (ICD-10-PCS; 2018-02-08)
PROC: 0BH17EZ Insertion of Endotracheal Airway into Trachea, Via Natural or Artificial Opening (ICD-10-PCS; principal; 2018-02-10)
PROC: 5A1935Z Respiratory Ventilation, Less than 24 Consecutive Hours (ICD-10-PCS; 2018-02-10)
DX: J96.01 Acute respiratory failure with hypoxia (principal); J11.08 Influenza due to unidentified influenza virus with specified pneumonia; J13 Pneumonia due to Streptococcus pneumoniae; I47.1 Supraventricular tachycardia; Z68.43 Body mass index [BMI] 50.0-59.9, adult; J96.02 Acute respiratory failure with hypercapnia; E66.01 Morbid (severe) obesity due to excess calories; E11.22 Type 2 diabetes mellitus with diabetic chronic kidney disease; E11.65 Type 2 diabetes mellitus with hyperglycemia; I12.9 Hypertensive chronic kidney disease with stage 1 through stage 4 chronic kidney disease, or unspecified chronic kidney disease; N18.3 Chronic kidney disease, stage 3 (moderate); J45.40 Moderate persistent asthma, uncomplicated; E78.5 Hyperlipidemia, unspecified; F32.9 Major depressive disorder, single episode, unspecified; G89.4 Chronic pain syndrome; G47.33 Obstructive sleep apnea (adult) (pediatric); Z88.8 Allergy status to other drugs, medicaments and biological substances; Z86.711 Personal history of pulmonary embolism; Z79.1 Long term (current) use of non-steroidal anti-inflammatories (NSAID); Z79.4 Long term (current) use of insulin; Z79.51 Long term (current) use of inhaled steroids; Z79.899 Other long term (current) drug therapy
CPT/HCPCS: 31500; 36415; 36600; 71045; 80053; 82803; 83605; 83735; 83880; 84484; 85025; 85379; 87040; 87070; 87205; 93005; 93010; 94002; 94640; 94660; 94667; 94668; 94762; J0330; J0456; J0696; J0780; J1650; J1885; J2060; J2405; J2550; J2704; J2930; J3010; J3370; J7040; J7120

== ENCOUNTER 2018-03-19 16:19 | Emergency (ER) | payer MEDICARE, OTHER ==
[~2018-03-19] VITALS: Ht 160 cm; Wt 140.6 kg
== END 2018-03-19 20:25 | disposition home or self-care (01) ==
LOC: ED 16:19
DX: K52.9 Noninfective gastroenteritis and colitis, unspecified (principal); E11.9 Type 2 diabetes mellitus without complications; I10 Essential (primary) hypertension; E66.9 Obesity, unspecified; Z88.8 Allergy status to other drugs, medicaments and biological substances; Z79.899 Other long term (current) drug therapy; Z79.4 Long term (current) use of insulin
CPT/HCPCS: 80053; 81001; 85025; 96360; 99283; J7030; J7040

== ENCOUNTER 2018-05-11 11:15 | Emergency (ER) | payer MEDICARE, OTHER ==
[~2018-05-11] VITALS: Ht 160 cm; Wt 140.6 kg
[2018-05-11] MEDS ORDERED: LORCET 5-325 M1 EACH PO (11:43)
[2018-05-11] MEDS ORDERED: CYCLOBENZAPRINE10 MG PO (11:43)
--- NOTE | 2018-05-13 07:32 | NUR ---
CHW received Case Management Referral. Since patient has PCP Jamel Keyes, referral has been directed to [facility] and [facility]. Both notified of ED visit and concerns of referral on 05/13/18.
== END 2018-05-11 12:04 | disposition home or self-care (01) ==
LOC: ED 11:15
DX: R51 Headache (principal); I10 Essential (primary) hypertension; E78.00 Pure hypercholesterolemia, unspecified; F32.9 Major depressive disorder, single episode, unspecified; J45.909 Unspecified asthma, uncomplicated; E11.43 Type 2 diabetes mellitus with diabetic autonomic (poly)neuropathy; K31.84 Gastroparesis; Z88.8 Allergy status to other drugs, medicaments and biological substances; Z79.51 Long term (current) use of inhaled steroids; Z79.899 Other long term (current) drug therapy; Z79.82 Long term (current) use of aspirin; Z79.4 Long term (current) use of insulin; W18.30XA Fall on same level, unspecified, initial encounter
CPT/HCPCS: 99283

== ENCOUNTER 2018-06-24 10:01 | Emergency (ER) | payer MEDICARE, OTHER ==
[~2018-06-24] VITALS: Ht 160 cm; Wt 122.9 kg
--- OUTSIDE RECORDS SUMMARY | ~2018-06-24 | XMS | Encounter Summary ---
Demographics + + + | Address | [address] | | | [place] [address] | + + + | Home Phone | | + + + | Preferred Language | Unknown | + + + | Marital Status | | + + + | Presybeterian Affiliation | Unknown | + + + | Race | Unknown | + + + | Ethnic Group | Unknown | + + + Author + + + | Author | [facility] | | | and Kamleshana | + + + | Organization | [facility] | | | and Kamleshana | + + + | Address | Unknown | + + + | Phone | Unavailable | + + + Support + + +---------+ + | Name | Relationship | Address | Phone | + + +---------+ + | Molina Reeves | ECON | Unknown | | + + +---------+ + Care Team Providers + +------+ + | Care Hotel Service Supervisor Name | Role | Phone | + +------+ + | Jamel Keyes NP | PCP | | + +------+ + Reason for Referral Evaluate & Treat (Routine) + + + + + + + | Status | Reason | Specialty | Diagnoses / | Referred By | Referred To | | | | | Procedures | Contact | Contact | + + + + + + + | Authorized | Specialty | Sleep | Diagnoses | [facility] | | | Services | Medicine | OLIVIA on CPAP | MD Jhon | Center [address] | | | Required | | Procedures | [address] | [place] | | | | | [place] POLYSOM | [place], | [place], | | | | | 6/>YRS | Level II | [place] [address] | | | | | SLEEP W/CPAP | [place], | Phone: | | | | | 4/> ADDL | [place] [address] | [phone] | | | | | ALAN ATTND | Phone: | Fax: | | | | | S/N ( | [phone] | [phone] | | | | | 07/17/18@8pm) | Fax: | | | | | | RM 1- | [phone] | | | | | | HOSPITAL BED | | | + + + + + + + + + | Scheduling Instructions | + + | Split night polysomnogram | + + Reason for Visit +--------+ + | Reason | Comments | +--------+ + | Asthma | Yearly Follow Up | +--------+ + Encounter Details +--------+---------+ + + + | Date | Type | Department | Care Team | Description | +--------+---------+ + + + | 06/12/ | Office | [facility] | Jhon Watt, | ARDS (adult | | 2018 | Visit | PULMONARY [address] | [address] | respiratory distress | | | | [place], | [place], Level II | syndrome) (HCC) | | | | [place] [address] | [place], [place] | (Primary Dx); OLIVIA on | | | | [phone] | [address] | CPAP; Moderate | | | | | | persistent asthma | | | | | | without | | | | | | complication; | | | | | | Pneumonia due to | | | | | | human | | | | | | metapneumovirus | | | | | | (hMPV) | +--------+---------+ + + + Social History + +-------+ +--------+------+ | Tobacco Use | Types | Packs/Day | Years | Date | | | | | Used | | + +-------+ +--------+------+ | Never Smoker | | | | | + +-------+ +--------+------+ + +---+---+---+ | Smokeless Tobacco: | | | | | Never Used | | | | + +---+---+---+ + + +---------+ + | Alcohol Use | Drinks/We | oz/Week | Comments | | | ek | | | + + +---------+ + | Yes | 0 | 0.0 | Rare | | | Standard | | | | | drinks or | | | | | | | | | | equivalen | | | | | t | | | + + +---------+ + + + + | Sex Assigned at | Date Recorded | | | | + + + | Not on file | | + + + as of this encounter Last Filed Vital Signs + + + + | Vital Sign | Reading | Time Taken | + + + + | Blood Pressure | 128/70 | 06/12/20181254 PDT | + + + + | Pulse | 82 | 06/12/20181254 PDT | + + + + | Temperature | - | - | + + + + | Respiratory Rate | - | - | + + + + | Oxygen Saturation | 94% | 06/12/20181254 PDT | + + + + | Inhaled Oxygen | - | - | | Concentration | | | + + + + | Weight | 125.3 kg (276 lb 3.8 | 06/12/2018 1255 PDT | | | oz) | | + + + + | Height | 160 cm (5' 3") | 06/12/2018 1255 PDT | + + + + | Body Mass Index | 48.93 | 06/12/2018 1255 PDT | + + + + in this encounter Progress Notes Jhon Watt MD - 06/12/2018 1300 PDTFormatting of this note may be different from mamta mendoza. Pulmonary Follow Up 06/12/2018 HPI Sarah Reeves is a 63 y.o. female patient of Jamel Keyes NP here today for follo w up of asthma. In addition since the patient's last clinic appointment Sarah has been hospitalized at [facility] with ARDS secondary to viral pneumonia. She received mechanical ventilation for approximat verenice 10 days and was hospitalized for approximately one month. The patient spent the subsequ ent month at a local senior living in [facility]. Since discharge from the senior living Sarah is had issues with weakness and falling. She i s currently working with Mr. Keyes regarding these symptoms. She is scheduled to return to his office on 06/27/18. Apparently in August 2017 the patient was noted to have a pulmonary nodule and it is uncle ar as to whether she is had follow-up for this finding. The patient's last visit was on 04/11/17. Since the last visit she feels like their asthma has been stable. They have not had any acute illnesses resulting in worsening asthma sympto ms. They have not required a burst of prednisone since our last appointment. Specifically 0 tapers of prednisone have occurred over the interval. Lastly Sarah notes 0 ED visits and 0 hospitalizations for asthma have occurred since the last appointment. Their controller medication regimen currently consists of Symbicort albeit only once a. Th ey do not feel like this medication regimen is effective at controlling their symptoms. Cur kirstintly Sarah is using their rescue albuterol, Ventolin, 3 times a day. Currently Sarah reports being able to walk 10-20 feet at their own pace on level ground bef ore becoming symptomatic from weakness. They are not exercising regularly. Current exercis e consists of minimal walking. She does cough chronically, and does not produce mucous. Sarah does not report symptoms of heartburn or acid reflux. They have not had recent sympto ms of nasal congestion, runny nose or post nasal drip. New triggers since the last appointment include none. Sarah Reeves is not smoking cigarettes. The patient is wearing CPAP at night. Sarah awakens frequently at night short of breath. She has a fullface mask. No apparent recent follow-up with her sleep provider has occurred. Past Medical History Past Medical History: Diagnosis Date Asthma 2005 Depression Diabetes mellitus (HCC) Hyperlipidemia Hypertension Low back pain Obesity Pulmonary emboli (HCC) 1976 Treated with coumadin 2-3 months Rash Sleep apnea On CPAP Thyroid nodule Allergies: Allergies Allergen Reactions Metformin Diarrhea Medications: Current Outpatient Prescriptions: aspirin 81 mg chewable tablet, Take 1 tablet by mouth Daily., Disp: , Rfl: budesonide-formoterol (SYMBICORT) 160-4.5 mcg/puff inhaler, Inhale 2 puffs into the ching ngs 2 times daily., Disp: 1 Inhaler, Rfl: 11 doxycycline (MONODOX) 100 mg capsule, Take 100 mg by mouth Daily., Disp: , Rfl: furosemide (LASIX) 40 mg tablet, Take 1 tablet by mouth as needed., Disp: , Rfl: gabapentin (NEURONTIN) 300 mg capsule, Take one capsule three times daily, Disp: , Rfl : insulin aspart (NOVOLOG) 100 units/mL injection, Inject 16 Units under the skin 3 time s daily (before meals)., Disp: , Rfl: lisinopril (PRINIVIL, ZESTRIL) 10 mg tablet, Take 10 mg by mouth Daily., Disp: , Rfl: meloxicam (MOBIC) 15 mg tablet, Take one tablet daily, Disp: , Rfl: omeprazole (PRILOSEC) 20 mg capsule, Take 1 capsule by mouth Daily., Disp: , Rfl: potassium chloride (KLOR-CON) 10 MEQ ER tablet, Take 1 tablet by mouth as needed. When taking furosemide, Disp: , Rfl: sertraline (ZOLOFT) 100 mg tablet, Take 100 mg by mouth Daily., Disp: , Rfl: simvastatin (ZOCOR) 10 mg tablet, Take 10 mg by mouth nightly., Disp: , Rfl: TOUJEO SOLOSTAR 300 UNIT/ML concentrated injection (pen), Inject 50 Units under the sk in nightly., Disp: , Rfl: VENTOLIN HFA 108 (90 BASE) MCG/ACT inhaler, Inhale 2 puffs into the lungs every 4 hour s as needed., Disp: , Rfl: Immunizations: Immunization History Administered Date(s) Administered INFLUENZA PF QUAD(PED/ADOL/ADULT),PSKT or VIAL 02/02/2016, 08/28/2016 PNEUMOCOCCAL POLYSACCHARIDE 23-VALENT (PPSV23) 02/02/2016 PPD Test 03/12/2018 Objective BP 128/70 | Pulse 82 | Ht 1.6 m (5' 3") | Wt 125.3 kg (276 lb 3.8 oz) | SpO2 94% | BMI 48.93 kg/m Appearance: Alert, cooperative, no distress, appears stated age. Head: Normocephalic, without obvious abnormality, atraumatic. Eyes: PERRL, conjunctiva/corneas clear. Nose: Nares normal, septum midline, mucosa normal, no drainage or sinus tenderness. Throat: Lips, mucosa, and tongue normal. Teeth/dentures normal. No thrush. Neck: Supple, symmetrical, no JVD. Lungs: No accessory muscle use, breath sounds are clear to auscultation bilaterally, no w heezes, crackles. Few bilateral rhonchi. No dullness to percussion. deep breathing causes coughing. Chest Wall: No tenderness or deformity. Heart: Regular rate and rhythm, S1, S2 normal, no murmur, rub or gallop. Extremities: Extremities normal, atraumatic, no cyanosis, clubbing. Trace edema. Skin: Warm and dry. Lymph nodes: Cervical and supraclavicular nodes normal. Neurologic: Gait normal. Data: Records dated 08/07/17 note the presence of a pulmonary nodule. PET/CT imaging dated 03/12/18 does not show evidence of malignancy. Diffusely increased trac er uptake was noted in the liver and multiple skeletal regions likely indicating hyperplasti c bone marrow. A chest CT report dated 03/05/18 references a right middle lobe nodule measuring 8 mm in siz e. Multiple x-ray reports in the month of February are also present. They show diffuse bilate ral extensive patchy airspace opacities. In some of the films the patient appears to have b een intubated. Assessment 1. Asthma moderate persistent. In the past Ms. Reeves has been followed for moderate persistent asthma. Her last clinic appointment for this problem was in March 2017. Per the patient's description it does not appear that she has had recent exacerbation of he r asthma. For unclear reasons the patient is decreased her Symbicort to once daily. Her us e of Ventolin has increased over the last 13 14 months. I have suggested to Sarah that she use Symbicort as typically prescribed. Specifically 2 p uffs twice a day. 2. History of ARDS apparently secondary to human metapneumovirus. Apparently required m echanical ventilation for 10 days of hospitalization at [facility] from 02/1103/14/18. Records regarding the patient's hospitalization are not available to time of this documenta tion. Residual shortness of breath above baseline is noted. I suspect that the patient has evidence of significant deconditioning related to her critic al illness. Vertical illness polyneuropathy is another possibility. Mr. Keyes is appare ntly evaluating the patient's weakness. I would like to review records from [facility]. There is question as to whether Sarah is desatur ating at night while she sleeps. 3. Obstructive sleep apnea severity unclear. Patient reports nocturnal awakening with s hortness of breath. Good compliance with CPAP is noted. We will review the patient's current CPAP prescription. I have suggested the patient that we perform nocturnal oximetry and initiate supplemental o xygen if desaturation is noted. The patient will also need a CPAP titration study. 4. Pulmonary nodule Ms. Reeves was apparently noted to have a pulmonary nodule related to imaging performed at [facility] in August 2017. The patient had a follow-up CT scan at [facility] which apparently showed a small nodule measuring 8 mm in size in the right m iddle lobe. A PET scan was negative. The size of the pulmonary nodule is too small to readily be noted on PET/CT imaging. Surve illance imaging is suggested. Total duration of the patient's clinic appointment was in excess of 40 minutes. Greater th an 50% of the time was related to counseling with respect to the patient's asthma, shortness of breath, sleep apnea and pulmonary nodule. Plan 1. Patient encouraged to increase Symbicort to 2 puffs twice daily. 2. PA/lateral chest x-ray today. 3. Request discharge summary and records from [facility]. 4. Nocturnal oximetry on CPAP/room air. 5. CPAP titration study has been ordered. 6. Pulmonary clinic follow-up appointment within the next 1 2 weeks. CC: Ruthann Carrion this encounter Plan of Treatment +--------+ + + + + | Date | Type | Specialty | Care Team | Description | +--------+ + + + + | 06/26/ | Office | Pulmonology | Jhon Watt, | | | 2017 | Visit | | MD Scott [address] | | | | | | [place], [place] | | | | | | [place] | | | | | | [address] | | | | | | | | +--------+ + + + + | 07/17/ | Appointment | Sleep Medicine | Jhon Watt, | | | 2017 | | | MD [address] | | | | | | [place], Level [place] | | | | | | [place] | | | | | | [address] | | | | | | | | +--------+ + + + + + +--------+ + + | Name | Priori | Associated Diagnoses | Order Schedule | | | ty | | | + +--------+ + + | Overnight oximetry, CPAP | Routin | OLIVIA on CPAP | Expected: | | | e | | 06/12/2018, Expires: | | | | | 06/12/2019 | + +--------+ + + + +--------+ + + | Name | Priori | Associated Diagnoses | Order Schedule | | | ty | | | + +--------+ + + | Split night polysomnogram | Routin | OLIVIA on CPAP | 1 Occurrences | | | e | | starting 06/12/2018 | | | | | until 09/12/2018 | + +--------+ + + as of this encounter Results XR Chest PA and Lateral (06/12/2018 1347) + + + | Narrative | Performed At | + + + | XR CHEST PA AND LATERAL 06/12/2018 1:47 PM HISTORY: Please | [facility] | | evaluate patient with recent ARDS and pneumonia. COMPARISON: | | | Multiple priors. Findings: Heart size is within normal limits. | | | Aorta is normal. Mediastinum is unremarkable. Central pulmonary | | | vasculature is normal. The bilateral lungs are clear with no evidence | | | for pleural effusion or pneumothorax. There is extensive | | | spondylosis. IMPRESSION - No acute findings. Dictated and | | | Signed by: Marvin Leslie MD Electronically signed: 06/12/2018 2:05 | | | PM | | + + + + + | Procedure Note | + + | Rj, Rad Results In - 06/12/2018 1408 PDT XR CHEST PA AND LATERAL 06/12/2018 1:47 PM | | | | HISTORY: Please evaluate patient with recent ARDS and pneumonia. | | | | COMPARISON: Multiple priors. | | | | Findings: | | Heart size is within normal limits. Aorta is normal. Mediastinum is | | unremarkable. Central pulmonary vasculature is normal. The bilateral lungs are | | clear with no evidence for pleural effusion or pneumothorax. There is extensive | | spondylosis. | | | | IMPRESSION - | | No acute findings. | | | | Dictated and Signed by: Marvin Leslie MD | | Electronically signed: 06/12/2018 2:05 PM | + + + +---------+ + + | Performing | Address | City/State/Zipcode | Phone Number | | Organization | | | | + +---------+ + + | [facility] | | | | + +---------+ + + in this encounter Visit Diagnoses + + | Diagnosis | + + | ARDS (adult respiratory distress syndrome) (HCC) - Primary | + + | Other pulmonary insufficiency, not elsewhere classified, following trauma and surgery | + + | OLIVIA on CPAP | + + | Obstructive sleep apnea (adult) (pediatric) | + + | Moderate persistent asthma without complication | + + | Unspecified asthma | + + | Pneumonia due to human metapneumovirus (hMPV) | + +
--- OUTSIDE RECORDS SUMMARY | ~2018-06-24 | XMS | Encounter Summary ---
Demographics + + + | Address | [address] | | | [place] [address] | + + + | Home Phone | | + + + | Preferred Language | Unknown | + + + | Marital Status | | + + + | Zoroastrian Affiliation | Unknown | + + + | Race | Unknown | + + + | Ethnic Group | Unknown | + + + Author + + + | Author | [facility] | + + + | Organization | [facility] | + + + | Address [...] Team Providers + +------+ + | Care Security Assurance Specialist Name | Role | Phone | + +------+ + | Jamel Keyes | PCP | | + +------+ + Reason for Visit + + + | Reason | Comments | + + + | Care Coordination | hard copy of RX Toian injection | + + + Encounter Details +--------+ + + + + | Date | Type | Department | Care Team | Description | +--------+ + + + + | 04/02/ | Documentati | [facility] | Jerman Bob, | Care Coordination | | 2018 | on Only | Endocrinology [address] | MD [address] | (hard copy of RX | | | | [address] | [address], [place] [address] | Toujeo injection) | | | | [place], [place] | [place] [address] | | | | | [address] | [phone] | | | | | [phone] | | | +--------+ + + + [...] + + + as of this encounter Plan of Treatment +--------+---------+ + + + | Date | Type | Specialty | Care Team | Description | +--------+---------+ + + + | 08/12/ | Office | Endocrinology | Jerman Bob, | | | 2018 | Visit | | MD Alberto [address] | | | | | | [place] | | | | | | [place] [address] | | | | | | [phone] | | | | | | | | +--------+---------+ + + + as of this encounter Visit Diagnoses Not on filein this encounter"
--- OUTSIDE RECORDS SUMMARY | ~2018-06-24 | XMS | Encounter Summary ---
Demographics + + + | Address | [address] | | | [place] [address] | + + + | Home Phone | | + + + | Preferred Language | Unknown | + + + | Marital Status | | + + + | Muslim Affiliation | Unknown | + + + | Race | Unknown | + + + | Ethnic Group | Unknown | + + + Author + + + | Author | [facility] | | | and Kamleshana | + + + | Organization | [facility] | | | and Kamleshana [...] Team Providers + +------+ + | Care Tow Boat Captain Name | Role | Phone | + +------+ + | Jamel Keyes NP | PCP | | + +------+ + Encounter Details +--------+ + + + + | Date | Type | Department | Care Team | Description | +--------+ + + + + | 04/25/ | Ancillary | [facility] | Carlene, | | | 2018 | Orders | [facility] | MD [address] | | | | | IMAGING | [address] | | | | | [phone] | [place] [address] | | +--------+ + + + + [...] as of this encounter Plan of Treatment +--------+ + + + + | Date | Type | Specialty | Care Team | Description | +--------+ + + + + | 06/26/ | Office | Pulmonology | Jhon Watt, | | | 2018 | Visit | | MD [address] [place] | | | | | | [place], [address] | | | | | | [place] | | | | | | [address] | | | | | | | | +--------+ + + + + | 07/17/ | Appointment | Sleep Medicine | Jhon Watt, | | | 2017 | | | MD Scott Garrett | | | | | | [place], [place] | | | | | | [place] | | | | | | [address] | | | | | | | | +--------+ + + + + as of this encounter Results PET CT Skull Base To Mid Thigh (03/12/2018 1225) + + + | Narrative | Performed [...] | | | + +---------+ + + CT Chest Abdomen Pelvis w Contrast (03/04/2018 1255) + + + | Narrative | Performed [...] | | | + +---------+ + + XR Chest 1 Vw (03/03/2018904) + + + | Narrative | Performed [...] | | | + +---------+ + + XR Chest 1 Vw (02/21/20182154) + + + | Narrative | Performed [...] | | | + +---------+ + + XR Chest 1 Teofilo (02/15/2018619) + + + | Narrative | Performed [...] | | | + +---------+ + + XR Chest 1 Vw (02/14/2018924) + + + | Narrative | Performed [...] | | | + +---------+ + + XR Chest 1 Vw (02/13/201855) + + + | Narrative | Performed [...] | | | + +---------+ + + XR Chest 1 Vw (02/12/2018824) + + + | Narrative | Performed [...] | | | + +---------+ + + XR Chest 1 Vw (02/11/2018 0035) + + + | Narrative | Performed [...] | | | + +---------+ + + XR Chest 1 Vw (02/10/20181919) + + + | Narrative | Performed [...] | | | + +---------+ + + XR Chest 1 Vw (02/10/2018 1905) + + + | Narrative | Performed [...] | | | + +---------+ + + XR Chest 1 Vw (02/10/2018 1825) + + + | Narrative | Performed [...] | | | + +---------+ + + XR Chest 1 Vw (02/09/2018 1130) + + + | Narrative | Performed [...] | | | + +---------+ + + XR Chest 1 Vw (02/08/201810) + + + | Narrative | Performed [...] | | | + +---------+ + + XR Chest AP Portable (09/18/2017 1525) + + + | Narrative | Performed [...]
--- OUTSIDE RECORDS SUMMARY | ~2018-06-24 | XMS | Encounter Summary ---
Demographics + + + | Address | [address] | | | [place] [address] | + + + | Home Phone | | + + + | Preferred Language | Unknown | + + + | Marital Status | | + + + | Anabaptism Affiliation | Unknown | + + + | Race | Unknown | + + + | Ethnic Group | Unknown | + + + Author + + + | Author | [facility] | | | and Kamleshana | + + + | Organization | [facility] | | | and Kamleshana [...] Team Providers + +------+ + | Care Mobile Marketing Manager Name | Role | Phone | + [...] | MED CTR [facility] | MD [address] | | | | | IMAGING | [address] | | | | | [phone] | [place] [address] | | +--------+ + + + + [...] 2018 | Visit | | MD [address] [place] | | | | | | [place], [place] | | | | | | [place] | | | | | | [address] | | | | | | | | +--------+ + + + + | 07/17/ | Appointment | Sleep Medicine | Jhon Watt, | | | 2017 | | | MD Scott [address] | | | | | | [place], [place] | | | | | | [place] | | | | | | [address] | | | | | | | [...]
--- OUTSIDE RECORDS SUMMARY | ~2018-06-24 | XMS | Clinical Summary ---
Demographics + + + | Address | [address] | | | [place] [address] | + + + | Home Phone | | + + + | Preferred Language | Unknown | + + + | Marital Status | | + + + | Anglican Affiliation | Unknown | + + + | Race | Unknown | + + + | Ethnic Group | Unknown | + + + Author + + + | Author | [facility] [email or web address] | + + + | Organization | [facility] | + + + | [...] Team Providers + +------+ + | Care Cardiac Specialist Name | Role | Phone | [...] | | Inhale two | | | 09/1 | | Activ | | budesonide-formotero | [...] + + +---------+---------+------+------+-------+ | simvastatin | Take 10 mg by mouth. | | | | | Activ | | (ZOCOR) 10 MG tablet | | | | | | e | [...] + + +---------+---------+------+------+-------+ | Potassium | Take by mouth. | | | | | Activ | | (POTASSIMIN PO) | | | | | | e | + + +---------+---------+------+------+-------+ | FUROSEMIDE PO | Take by mouth. | | | | | Activ | | | | | | | | e | [...] 18 | | | + + +---------+---------+------+------+-------+ Active Problems + + + | Problem | Noted Date | + + + | Type II [...] | +--------+ + + + + | 04/17/ | Refill | | Stella Rdz, | | | 2018 | | | CANOE INSPECTOR FINAL | | +--------+ + + + + | 04/02/ | Documentati | | Jerman Bob, | Care Coordination | | 2018 | on Only | | MD | (hard copy of RX | | | | | | Toujeo injection) | +--------+ + + + + from Last 3 Months Family History + + +------+ + | Medical History | Relation | Name | Comments | + + +------+ + | Diabetes type II | Maternal | | | | | Grandmoth | | | | | er | | | + + +------+ + | Diabetes type II | Mother | | | + + +------+ + + +------+--------+ + | Relation | Name | Status | Comments | + +------+--------+ + | Maternal Grandmother | | | | + +------+--------+ + | Mother | | | | + +------+--------+ + Social History + +-------+ +--------+------+ | [...] + + + | Blood Pressure | 136/86 | 10/31/2017 3:01 PM PST | + + + + | Pulse | 87 | 10/31/2017 3:01 PM PST | + + + + | Temperature | - | - | + + + + | Respiratory Rate | - | - | + + + + | Oxygen Saturation | 97% | 10/31/2017 3:01 PM PST | + + + + | Inhaled Oxygen | - | - | | Concentration | | | + + + + | Weight | 136.6 kg (301 lb 1.6 | 10/31/2017 3:01 PM PST | | | oz) | | + + + + | Height | - | - | + + + + | Body Mass Index | - | - | + + + + Plan of Treatment +--------+---------+ + + + | Date | Type | Specialty | Care Team | Description | +--------+---------+ + + + | 08/12/ | Office | | Jerman Bob, | | | 2017 | Visit | | MD Alberto AUGUSTINE | | | | | | [place] | | | | | | [place] [address] | | | | | | [phone] | | | | | | | [...] +------+-------+ + | MEDICARE | MEDICA | [id number] | | | [address] | | | RE | | | | [place] [address] | | | IP-OP | | | | | + +--------+ +------+-------+ + | HERSON - CHANDA - | CHAMPV | [id number] | | | [address] [place] [address] | | [place] | A | | | | [place] | | | | | | | [phone] | + +--------+ +------+-------+ + + +--------+ [...] ST | | | al/Fam | | 1954 | [phone] | [place] | | | craig | | | [phone] | [phone] | + +--------+ +--------+ + +"
--- OUTSIDE RECORDS SUMMARY | ~2018-06-24 | XMS | Encounter Summary ---
Demographics + + + | Address | [address] | | | [place] [address] | + + + | Home Phone | | + + + | Preferred Language | Unknown | + + + | Marital Status | | + + + | Shinto Affiliation | Unknown | + + + | Race | Unknown | + + + | Ethnic Group | Unknown | + + + Author + + + | Author | [facility] | | | and Kamleshana | + + + | Organization | [facility] | | | and Kamleshana [...] Team Providers + +------+ + | Care Software Support Specialist Name | Role | Phone | + +------+ + | Jamel Keyes NP | PCP | | + +------+ + Encounter Details +--------+ + + + + | Date | Type | Department | Care Team | Description | +--------+ + + + + | 06/12/ | Orders Only | [facility] | Selene Flaherty | OLIVIA on CPAP | | 2017 | | PULMONARY [address] | [place] [address] | | | | | [place], | | | | | | [place] [address] | | | | | | [phone] | | | +--------+ + + + [...] | 2017 | Visit | | MD [place] | | | | | | [place], [place] | | | | | | [place] | | | | | | [address] | | | | | | | | +--------+ + + + + | 07/17/ | Appointment | Sleep Medicine | WattGerberJhon, | | | 2018 | | | MD [place] | | | | | | [place], [facility] | | | | | | [place], [place] | | | | | | [address] | | | | | | | | +--------+ + + + + as of this encounter Visit Diagnoses + + | Diagnosis | + + | OLIVIA on CPAP | + + | Obstructive sleep apnea (adult) (pediatric) | + +"
--- OUTSIDE RECORDS SUMMARY | ~2018-06-24 | XMS | Encounter Summary ---
Demographics + + + | Address | [address] | | | [place] [address] | + + + | Home Phone | | + + + | Preferred Language | Unknown | + + + | Marital Status | | + + + | Church Affiliation | Unknown | + + + | Race | Unknown | + + + | Ethnic Group | Unknown | + + + Author + + + | Author | [facility] | + + + | Organization | [facility] | + + + [...] Team Providers + +------+ + | Care Uniform Force Captain Name | Role | Phone | + +------+ + | Jamel Keyes | PCP | | + +------+ + Encounter Details +--------+--------+ + + + | Date | Type | Department | Care Team | Description | +--------+--------+ + + + | 04/17/ | Refill | [facility] | Stella Rdz, | | | 2018 | | Endocrinology [address] | [address] | | | | | [place] [address] | | | | | | [place] | | | | | | [address] | | | | | | [phone] | | | +--------+--------+ + + + Social History + +-------+ [...] Endocrinology | Jerman Bob, | | | 2017 | Visit | | MD Alberto AUGUSTINE | | | | | | [place] | | | | | | [place] [address] | | | | | | [phone] | | | | | | | | +--------+---------+ + + + as of this encounter Visit Diagnoses Not on filein this encounter"
--- OUTSIDE RECORDS SUMMARY | ~2018-06-24 | XMS | Clinical Summary ---
Demographics + + + | Address | [address] | | | [place] [address] | + + + | Home Phone | [email or web address] | + + + | Preferred Language [...] + | BALBINA OLGUIN | ECON | [place], [place] | | | | | [address] | | + + + + + | [place] | ECON | [address] | | | | | [place] | | | | | [address] | | + + + + + | Cherelle Rea | ECON | Unknown | | + + + + + Care Team Providers + +------+ + | Care Foil Spinner Name | Role | Phone | + +------+ + | Jamel Keyes NP | PP | | + +------+ + Source Comments PATRICIA is fully live on both EpicCare Ambulatory and EpicCare InPatient.[facility] Allergies No Known Allergies Current Medications + [...] | | | | | | | Maintenance Therapy | | | | | | | | for Asthma | | | | [...] | | | + + +--------+---------+------+------+-------+ | atorvastatin 80 mg | Take 1 tablet by | 30 | 1 | 05/0 | | Activ | | oral tablet | mouth once daily. | tablet | | 4/20 | | e | | | | | | 18 | | | + + +--------+---------+------+------+-------+ | carvedilol 25 mg | Take 1 tablet by | 60 | 1 | 05/0 | | Activ | | oral tablet | mouth two times | tablet | | 4/20 | | e | | | daily. Administer | | | 18 | | | | | with food. | | | | | | + [...] | | | + + +--------+---------+------+------+-------+ | QUEtiapine 25 mg | Take 0.5 tablets by | 30 | 0 | 05/0 | | Activ | | oral tablet | mouth once daily at | tablet | | 4/20 | | e | | | bedtime. To regulate | | | 18 | | | | | sleep wake cycle | | | | | | | | and associated | | | | | | | | psychosis | | | | | | + + +--------+---------+------+------+-------+ Active [...] + | ARDS (adult respiratory distress syndrome) ([facility]) | 02/18/2018 | + + + | Pneumonia due to human metapneumovirus (hMPV) | 02/18/2018 | + + + | Severe obesity (BMI >= 40) ([facility]) | 02/18/2018 | + + + | Encephalomyelitis, autoimmune | 02/18/2018 | + + + | SVT (supraventricular tachycardia) ([facility]) | 02/18/2018 | + + + | [...] + + + | Blood Pressure | 104/50 | 03/15/2018 8:18 AM PDT | + + + + | Pulse | 69 | 03/15/2018 8:18 AM PDT | + [...] + + + + | Weight | 124.6 kg (274 lb 9.6 | 03/15/2018 4:48 AM PDT | | | oz) | | + + + + | Height | 168 cm (5' 6.14") | 02/19/2018 2:31 AM PDT | + + + + | Body Mass Index | 44.13 | 03/15/2018 4:48 AM PDT | + + + + Plan of Treatment + + + + + | Health Maintenance | Due Date | Last Done | Comments | + + + + + | INFLUENZA VACCINE | | 08/28/2016, 02/02/2016 | | | (FLU SHOT) | 8 | | | + + + + [...] + + | MEDICARE | MEDICA | xxxxxxxxxx | Medica | [id number] | [address] | | | RE A & | | re | [phone] | [place] [phone] | | | B | | | | | + +--------+ +--------+ + + | | CHAMPV | [phone] | Indemn | [phone] | | | | A | | ity | [phone] | | + +--------+ +--------+ + + + +--------+ +--------+-------+ + | Guarantor Name | Accoun | Relation to | Date | Phone | Billing Address | | | t Type | Patient | of | | | | | | | | | | + +--------+ +--------+-------+ + | MARICRUZ NESBITT | Person | Self | | | [place], | | | al/Fam | | | | [place] [address] | | | craig | | | | | + +--------+ +--------+-------+ + | MARICRUZ LINN | [place] | Self | [birth year] | | [address] | | | [place] | | 5 | | [place] [address] | | | red | | | | | + +--------+ +--------+-------+ +
--- OUTSIDE RECORDS SUMMARY | ~2018-06-24 | XMS | Encounter Summary ---
Demographics + + + | Address | [address] | | | [place] [address] | + + + | Home Phone | | + + + | Preferred Language | Unknown | + + + | Marital Status | | + + + | Yarsanism Affiliation | Unknown | + + + | Race | Unknown | + + + | Ethnic Group | Unknown | + + + Author + + + | Author | [facility] | | | and Kamleshana | + + + | Organization | [facility] | | | and [...] Team Providers + +------+ + | Care Art Display Maker Name | Role | Phone | + +------+ + | Jamel Keyes NP | PCP | | + +------+ + Encounter Details +--------+ + + + + | Date | Type | Department | Care Team | Description | +--------+ + + + + | 06/12/ | Hospital | [facility] | Jhon Watt, | ARDS (adult | | 2018 | Encounter | MED CTR XRAY [address] | MD [place] | respiratory distress | | | | [place] | [place], [place] | syndrome) ([facility]); | | | | [place] [address] | [place], [place] | Pneumonia due to | | | | [phone] | [address] | human | | | | | | metapneumovirus | | | | | | (hMPV) | +--------+ + + + + Social [...] + + + as of this encounter Medications at Time of Discharge + + +---------+---------+ + + | Medication | Sig. | Disp. | Refills | Start | End Date | | | | | | Date | | + + +---------+---------+ + + | aspirin 81 mg | Take 1 tablet by | | | 03/15/20 | | | chewable tablet | mouth Daily. | | | 18 | | + + +---------+---------+ + + | | Inhale 2 puffs into | 1 | 11 | 08/28/20 | | | budesonide-formotero | the lungs 2 times | Inhaler | | 16 | | | l (SYMBICORT) | daily. | | | | | | 160-4.5 mcg/puff | | | | | | | inhalerIndications: | | | | | | | Moderate persistent | | | | | | | asthma without | | | | | | | complication | | | | | | + + +---------+---------+ + + | doxycycline | Take 100 mg by mouth | | | 09/01/20 | | | (MONODOX) 100 mg | Daily. | | | 16 | | | capsule | | | | | | + + +---------+---------+ + + | furosemide (LASIX) | Take 1 tablet by | | | | | | 40 mg tablet | mouth as needed. | | | | | + + +---------+---------+ + + | gabapentin | Take one capsule | | | 07/24/20 | | | (NEURONTIN) 300 mg | three times daily | | | 16 | | | capsule | | | | | | + + +---------+---------+ + + | insulin aspart | Inject 16 Units | | | | | | (NOVOLOG) 100 | under the skin 3 | | | | | | units/mL injection | times daily (before | | | | | | | meals). | | | | | + + +---------+---------+ + + | lisinopril | Take 10 mg by mouth | | | 09/12/20 | | | (PRINIVIL, ZESTRIL) | Daily. | | | 16 | | | 10 mg tablet | | | | | | + + +---------+---------+ + + | meloxicam (MOBIC) | Take one tablet | | | 08/11/20 | | | 15 mg tablet | daily | | | 16 | | + + +---------+---------+ + + | omeprazole | Take 1 capsule by | | | | | | (PRILOSEC) 20 mg | mouth Daily. | | | | | | capsule | | | | | | + + +---------+---------+ + + | potassium chloride | Take 1 tablet by | | | | | | (KLOR-CON) 10 MEQ | mouth as needed. | | | | | | ER tablet | When taking | | | | | | | furosemide | | | | | + + +---------+---------+ + + | sertraline | Take 100 mg by mouth | | | | | | (ZOLOFT) 100 mg | Daily. | | | | | | tablet | | | | | | + + +---------+---------+ + + | simvastatin | Take 10 mg by mouth | | | | | | (ZOCOR) 10 mg tablet | nightly. | | | | | + + +---------+---------+ + + | TRACY FIELDS | Inject 50 Units | | | 06/28/20 | | | 300 UNIT/ML | under the skin | | | 16 | | | concentrated | nightly. | | | | | | injection (pen) | | | | | | + + +---------+---------+ + + | VENTOLIN HFA 108 | Inhale 2 puffs into | | | 06/28/20 | | | (90 BASE) MCG/ACT | the lungs every 4 | | | 16 | | | inhaler | hours as needed. | | | | | + + +---------+---------+ + + as of this encounter Plan [...] [place] | | | | | | [address] | | | | | | | | +--------+ + + + + | 07/17/ | Appointment | Sleep Medicine | WattJhon, | | | 2017 | | | MD Scott Garrett | | | | | | [place], [place] | | | | | | [place] | | | | | | [address] | | | | | | | | +--------+ + + + + as of this encounter Procedures + +--------+ + + + | Procedure Name | Priori | Date/Time | Associated Diagnosis | Comments | | | ty | | | | + +--------+ + + + | XR CHEST PA AND | Routin | 06/12/2018 | ARDS (adult | Results for this | | LATERAL | e | 1347 PDT | respiratory distress | procedure are in the | | | | | syndrome) ([facility]) | results section. | | | | | Pneumonia due to | | | | | | human | | | | | | metapneumovirus | | | | | | (hMPV) | | + +--------+ + + + in this encounter Results XR Chest PA and [...] | ARDS (adult respiratory distress syndrome) (HCC) | + + | Other pulmonary insufficiency, not elsewhere classified, following trauma and surgery | + + | Pneumonia due to human metapneumovirus (hMPV) | + +"
--- OUTSIDE RECORDS SUMMARY | ~2018-06-24 | XMS | Clinical Summary ---
Demographics + + + | Address | [address] | | | [place] [address] | + + + | Home Phone | | + + + | Preferred Language | Unknown | + + + | Marital Status | | + + + | Temple Affiliation | Unknown | + + + | Race | Unknown | + + + | Ethnic Group | Unknown | + + + Author + + + | Author | [facility] | | | and Kamleshana | + + + | Organization | [facility] | | | and Kamleshana | + + + | Address | Unknown | + + + | Phone | Unavailable | + + + Support + + +---------+ + | Name | Relationship | Address | Phone | + + +---------+ + | Molina Linn | ECON | Unknown | | + + +---------+ + Care Team Providers + +------+ + | Care Piercing Mill Operator Name | Role | Phone | + [...] + +---------+---------+------+------+-------+ | VENTOLIN HFA 108 | Inhale 2 puffs into | | | 08/1 | | Activ | | (90 BASE) MCG/ACT | the lungs every 4 | | | 7/20 | | e | | inhaler | hours as needed. | | | 16 | | | + + +---------+---------+------+------+-------+ | gabapentin | Take one capsule | | | 07/13 | | Activ | | (NEURONTIN) 300 mg | three times daily | | | 2/20 | | e | | capsule | | | | 16 | | | + + +---------+---------+------+------+-------+ | TOUJEO SOLOSTAR | Inject 50 Units | | | 08/1 | | Activ | | 300 UNIT/ML | under the skin | | | 7/20 | | e | | concentrated | nightly. | | | 16 | | | | injection (pen) | | | | | | | + + +---------+---------+------+------+-------+ | simvastatin | Take 10 mg by mouth | | | | | Activ | | (ZOCOR) 10 mg tablet | nightly. | | | | | e | + + +---------+---------+------+------+-------+ | sertraline | Take 100 mg by mouth | | | | | Activ | | (ZOLOFT) 100 mg | Daily. | | | | | e | | tablet | | | | | | | + + +---------+---------+------+------+-------+ | insulin aspart | Inject 16 Units | | | | | Activ | | (NOVOLOG) 100 | under the skin 3 | | | | | e | | units/mL injection | times daily (before | | | | | | | | meals). | | | | | | + + +---------+---------+------+------+-------+ | meloxicam (MOBIC) | Take one tablet | | | 09/3 | | Activ | | 15 mg tablet | daily | | | 0/20 | | e | | | | | | 16 | | | + + +---------+---------+------+------+-------+ | | Inhale 2 puffs into | 1 | 11 | / | | Activ | | [...] | | | + + +---------+---------+------+------+-------+ | lisinopril | Take 10 mg by mouth | | | 11/0 | | Activ | | (PRINIVIL, ZESTRIL) | Daily. | | | 1/20 | | e | | 10 mg tablet | | | | 16 | | | + + +---------+---------+------+------+-------+ | doxycycline | Take 100 mg by mouth | | | 10/2 | | Activ | | (MONODOX) 100 mg | Daily. | | | 120 | | e | | capsule | | | | 16 | | | + + +---------+---------+------+------+-------+ | aspirin 81 mg | Take 1 tablet by | | | 05/0 | | Activ | | chewable tablet | mouth Daily. | | | 20 | | e | | | | | | 18 | | | + + +---------+---------+------+------+-------+ | furosemide (LASIX) | Take 1 tablet by | | | | | Activ | | 40 mg tablet | mouth as needed. | | | | | e | + + +---------+---------+------+------+-------+ | omeprazole | Take 1 capsule by | | | | | Activ | | (PRILOSEC) 20 mg | mouth Daily. | | | | | e | | capsule | | | | | | | + + +---------+---------+------+------+-------+ | potassium chloride | Take 1 tablet by | | | | | Activ | | (KLOR-CON) 10 MEQ | mouth as needed. | | | | | e | | ER tablet | When taking | | | | | | | | furosemide | | | | | | + + +---------+---------+------+------+-------+ | | Take one tablet | | | 08/ | 08/0 | Disco | | lisinopril-hydrochlo | daily | | | 05/31 | 1/20 | ntinu | | rothiazide | | | | 16 | 18 | ed | | (PRINZIDE,ZESTORETIC | | | | | | | | ) 20-25 MG per | | | | | | | | tablet | | | | | | | + + +---------+---------+------+------+-------+ | ondansetron | Take 4 mg by mouth | | | 05/1 | 08/0 | Disco | | (ZOFRAN ODT) 4 mg | every 8 hours as | | | 8/20 | 1/20 | ntinu | | disintegrating | needed for Nausea. | | | 17 | 18 | ed | | tablet | | | | | | | + + +---------+---------+------+------+-------+ Active Problems + + + | Problem | Noted Date | + + + | OLIVIA on CPAP | 06/12/2018 | + + + | ARDS (adult respiratory distress syndrome) (HCC) | 02/18/2018 | + + + | Pneumonia due to human metapneumovirus (hMPV) | 02/18/2018 | + + + | Moderate persistent asthma without complication | 09/25/2016 | + + + Encounters +--------+ + + + + | Date | Type | Specialty | Care Team | Description | +--------+ + + + + | 06/12/ | Hospital | | Jhon Watt, | ARDS (adult | | 2017 | Encounter | | MD | respiratory distress | | | | | | syndrome) ([facility]); | | | | | | Pneumonia due to | | | | | | human | | | | | | metapneumovirus | | | | | | (hMPV) | +--------+ + + + + | 06/12/ | Office | | Jhon Wtat, | ARDS (adult | | 2017 | Visit | | MD | respiratory distress | | | | | | syndrome) ([facility]) | | | | | | (Primary Dx); OLIVIA on | | | | | | CPAP; Moderate | | | | | | persistent asthma | | | | | | without | | | | | | complication; | | | | | | Pneumonia due to | | | | | | human | | | | | | metapneumovirus | | | | | | (hMPV) | +--------+ + + + + | 06/12/ | Orders Only | | Selene Flaherty | OLIVIA on CPAP | | 2017 | | | [place] | | +--------+ + + + + | 04/25/ | Ancillary | | Provider, | | | 2017 | Orders | | MD Dani | | +--------+ + + + + from Last 3 Months Immunizations + + + + | Name | Dates Previously Given | Next Due | + + + + | INFLUENZA PF | 08/28/2016, 02/02/2016 | | | QUAD(PED/ADOL/ADULT) | | | | ,PSKT or VIAL | | | + + + + | PNEUMOCOCCAL | 02/02/2016 | | | POLYSACCHARIDE | | | | 23-VALENT (PPSV23) | | | + + + + | PPD Test | 03/12/2018 | | + + + + Family History + + +------+ + | Medical History | Relation | Name | Comments | + + +------+ + | Cancer | Brother | | ?lung | + + +------+ + | No Known Problems | Brother | | | + + [...] + | Blood Pressure | 128/70 | 06/12/2018 1255 PDT | + + + + | Pulse | 82 | 06/12/2018 1255 PDT | + + + + | Temperature | - | - | + + + + | Respiratory Rate | 20 | 09/25/2016 1542 PST | + + + + | Oxygen Saturation | 94% | 06/12/2018 1255 PDT | + + + + | Inhaled Oxygen | - | - | | Concentration | | | + + + + | Weight | 125.3 kg (276 lb 3.8 | 06/12/20185 PDT | | | oz) | | + + + + | Height | 160 cm (5' 3") | 06/12/20181254 PDT | + + + + | Body Mass Index | 48.93 | 06/12/20181254 PDT | + + + + Plan of Treatment +--------+ + + + + | Date | Type | Specialty | Care Team | Description | +--------+ + + + + | 06/26/ | Office | | Jhon Watt, | | | 2017 | Visit | | [address] | | | | | | [place], [place] | | | | | | [place] | | | | | | [address] | | | | | | | | +--------+ + + + + | 07/17/ | Appointment | | Jhon Watt, | | | 2017 | | | MD [address] | | | | | | [place], [place] | | | | | | [place] | | | | | | [address] | | | | | | | | +--------+ + + + + + + + + + | Health Maintenance | Due Date | Last Done | Comments | + + + + + | Hepatitis C | | | | | Screening | 5 | | | + + + + + | Vaccine: | | | | | Dtap/Tdap/Td (1 - | 4 | | | | Tdap) | | | | + + + + + | BREAST CANCER | | | | | SCREENING (MAMM Q2 | 5 | | | | YEARS 50-74) | | | | + + + + + | Colorectal Cancer | | | | | Screening | 5 | | | | (Colonoscopy) | | | | + + + + + | Vaccine: Influenza | | 08/28/2016, 02/02/2016 | | | (#1) | 8 | | | + + + + + | Vaccine: | Completed | 02/02/2016 | | | Pneumococcal 19-64 | [...] the | | | | | syndrome) ([facility]) | results section. | | | | | Pneumonia due to | | | | | | human | | | | | | metapneumovirus | | | | | | (hMPV) | | + +--------+ + + + from Last 3 Months Results XR Chest PA and Lateral (06/12/2018 [...] | | | + +---------+ + + from Last 3 Months Insurance + +--------+ +--------+ +---------+ | Payer | Benefi | Subscriber | Type | Phone | Address | | | t Plan | ID | | | | | | / | | | | | | | Group | | | | | + +--------+ +--------+ +---------+ | MEDICARE | MEDICA | [id number] | Medica | [phone] | | | RE | | re | [phone] | | | | PART A | | | | | | | AND B | | | | | + +--------+ +--------+ +---------+ | | CHAMPV | [id number] | Indemn | [phone] | | | A | | ity | [phone] | | + +--------+ +--------+ +---------+ + +--------+ +--------+ + + | Guarantor Name | Accoun | Relation to | Date | Phone | Billing Address | | | t Type | Patient | of | | | | | | | | | | + +--------+ +--------+ + + | MARICRUZ LINN | Person | Self [birth year] | Home: | [address] | | | al/Fam | | [phone] | [phone] | [place] [address] | | | craig | | | [phone] | | + +--------+ +--------+ + +
--- OUTSIDE RECORDS SUMMARY | ~2018-06-24 | XMS | Clinical Summary ---
Demographics + + + | Address | [address] | | | [place] [address] | + + + | Home Phone | @[employer] | + + + | Preferred Language | Unknown | + + + | Marital Status | Single | + + + | Taoism Affiliation | NON | + + + [...] + | BALBINA OLGUIN | ECON | [place], [place] | | | | | [address] | | + + + + + | Vna Linn | ECON | [address] | | | | | [place] | | | | | [address] | | + + + + + | Cherelle Rea | ECON | Unknown | | + + + + + Care Team Providers + +------+ + | Care Medical Assistant Float Name | Role | Phone | + +------+ + | Jamel Keyes NP | PP | | + +------+ + Source Comments PATRICIA is fully live on both EpicCare Ambulatory and EpicCare InPatient.[facility] Allergies No Known Allergies Current [...] ARDS (adult respiratory distress syndrome) ([facility]) | 02/18/2018 | + + + | Pneumonia due to human metapneumovirus (hMPV) | 02/18/2018 | + + + | Severe obesity (BMI >= 40) ([facility]) | 02/18/2018 | + + + | Encephalomyelitis, autoimmune | 02/18/2018 | + + + | SVT (supraventricular tachycardia) ([facility]) | 02/18/2018 | + + + [...] | MEDICA | xxxxxxxxxx | Medica | [id number] | [address] | | | RE A & | | re | [phone] | [place] [address] | | | B | | | | | + +--------+ +--------+ + + | | CHAMPV | [phone] | Indemn | [phone] | | | A | | ity | [phone] | | + +--------+ +--------+ + + [...] | al/Fam | | | | [place] [address] | | | craig | | | | | + +--------+ +--------+-------+ + | MARICRUZ LINN | [place] | Self | [birth year] | | [address] | | | [place] | | 5 | | [place] [address] | | | red | | | | | + +--------+ +--------+-------+ +
--- OUTSIDE RECORDS SUMMARY | ~2018-06-24 | XMS | Encounter Summary ---
Demographics + + + | Address | [address] | | | [place] [address] | + + + | Home Phone | | + + + | Preferred Language | Unknown | + + + | Marital Status | | + + + | Zoroastrianism Affiliation | Unknown | + + + | Race | Unknown | + + + | Ethnic Group | Unknown | + + + Author + + + | Author | [facility] | | | and Kamleshana | + + + | Organization | [facility] | | | and Kamleshana [...] Team Providers + +------+ + | Care Fur Comber Name | Role | Phone | + [...] | | | | | | [place] [address] | | | | | | [phone] | | | +--------+ + + + [...] 2017 | Visit | | MD [place] | | | | | | Yin, Level II | | | | | | [place] | | | | | | [address] | | | | | | | | +--------+ + + + + | 07/17/ | Appointment | Sleep Medicine | WattGerberJhon, | | | 2018 | | | MD [place] | | | | | | Yin, [facility] | | | | | | [place], [place] | | | | | | [address] | | | | | | | | +--------+ + + + + as of this encounter Visit Diagnoses + + | Diagnosis | + + | OLIVIA on CPAP | + + | Obstructive sleep apnea (adult) (pediatric) | + +"
--- OUTSIDE RECORDS SUMMARY | ~2018-06-24 | XMS | Encounter Summary ---
Demographics + + + | Address | [address] | | | [place] [address] | + + + | Home Phone | | + + + | Preferred Language | Unknown | + + + | Marital Status | | + + + | Catholic Affiliation | Unknown | + + + | Race | Unknown | + + + | Ethnic Group | Unknown | + + + Author + + + | Author | [facility] [employer] | + + + | Organization | [facility] | + + + | [...] Team Providers + +------+ + | Care Endocrinology Physician Name | Role | Phone | [...] + + | 04/02/ | Documentati | [facility] | Jerman Bob, | Care Coordination | | 2018 | on Only | Endocrinology [address] | MD [address] | (hard copy of RX | | | | [address] | DRIVE, [place] | Toujeo injection) | | | | [place], [place] | [place] [address] | | | | | [address] | [phone] | | | | | [phone] | | | +--------+ + + + [...] | | | | | [place] [address] | | | | | | [phone] | | | | | | | | +--------+---------+ + + + as of this encounter Visit Diagnoses Not on filein this encounter"
--- OUTSIDE RECORDS SUMMARY | ~2018-06-24 | XMS | Clinical Summary ---
Demographics + + + | Address | [address] | | | [place] [address] | + + + | Home Phone | | + + + | Preferred Language | Unknown | + + + | Marital Status | | + + + | Mosque Affiliation | Unknown | + + + | Race | Unknown | + + + | Ethnic Group | Unknown | + + + Author + + + | Author | [facility] | + + + | Organization | [facility] | + + [...] Team Providers + +------+ + | Care Studio Data Analyst Name | Role | Phone | + [...] | | | 2018 | | | LAMINATING MACHINE FEEDER | | +--------+ + + + + [...] [place] | | | | | | [place] [address] | | | | | | [phone] | | | | | | | [...] +------+-------+ + | MEDICARE | MEDICA | [id number] | | | [address] | | | RE | | | | [place] [address] | | | IP-OP | | | | | + +--------+ +------+-------+ + | HERSON - CHANDA - | CHAMPV | [id number] | | | [address] [address] | | [place] | A | | | | [place] | | | | | | | [address] | + +--------+ +------+-------+ + + +--------+ [...] | craig | | | [address]45 | [phone] | + +--------+ +--------+ + +"
--- OUTSIDE RECORDS SUMMARY | ~2018-06-24 | XMS | Encounter Summary ---
Demographics + + + | Address | [address] | | | [place] [address] | + + + | Home Phone | | + + + | Preferred Language | Unknown | + + + | Marital Status | | + + + | Congregational Affiliation | Unknown | + + + | Race | Unknown | + + + | Ethnic Group | Unknown | + + + Author + + + | Author | [facility] | | | and Kamleshana | + + + | Organization | [facility] | | | and Kamleshana [...] Team Providers + +------+ + | Care Oracle Consultant Name | Role | Phone | + +------+ + | Jamel Keyes NP | PCP | | + +------+ + Encounter Details +--------+ + + + + | Date | Type | Department | Care Team | Description | +--------+ + + + + | 06/12/ | Hospital [facility] | Jhon Watt, | ARDS (adult | | 2018 | Encounter | MED CTR XRAY [address] | MD [place] | respiratory distress | | | | [place] | [place], Level II | syndrome) ([facility]); | | | | [place] [address] | [place], [place] | Pneumonia due to | | | | [phone] | [address] | human | | | | | [...] [place] | | | | | | [address] | | | | | | | | +--------+ + + + + | 07/17/ | Appointment | Sleep Medicine | WattJhon, | | | 2017 | | | MD Scott Garrett | | | | | | Yin, Level II | | | | | | [place] | | | | | | [address] | | | | | | | [...] the | | | | | syndrome) ([facility]) | results section. | | | [...]
--- OUTSIDE RECORDS SUMMARY | ~2018-06-24 | XMS | Encounter Summary ---
Demographics + + + | Address | [address] | | | [place] [address] | + + + | Home Phone | | + + + | Preferred Language | Unknown | + + + | Marital Status | | + + + | Christian Affiliation | Unknown | + + + | Race | Unknown | + + + | Ethnic Group | Unknown | + + + Author + + + | Author | [facility] | | | and Kamleshana | + + + | Organization | [facility] | | | and Kamleshana [...] Team Providers + +------+ + | Care Six Color Press Operator Name | Role | Phone | [...] | Yin | | | | | MA POLYSOM | Yin, | [place], | | | | | 6/>YRS | Level II | [place] [address] | | | | | SLEEP W/CPAP | [place], | Phone: | | | | | 4/> ADDL | [place] [address] | [phone] | | | | | ALAN ATTND | Phone: | Fax: | | | | | S/N ( | [phone] | [phone] | | | | | 07/17/18@8pm) | Fax: | | | | | | RM 1- | [phone] | | | | | | HOSPITAL [...] + + | 06/12/ | Office | [facility] | Jhon Watt, | ARDS (adult | | 2018 | Visit | PULMONARY [address] | MD [place] | respiratory distress | | | | [place], | [place], Level II | syndrome) (HCC) | | | | [place] [address] | [place], [place] | (Primary Dx); OLIVIA on | | | | [phone] | [address] | CPAP; Moderate | | | | [...] clinic appointment Sarah has been hospitalized at [facility] with ARDS secondary to viral pneumonia. She received mechanical ventilation for approximat verenice 10 days and was hospitalized for approximately one month. The patient spent the subsequ ent month at a local penitentiary in [facility]. Since discharge from the penitentiary Sarah is had issues with weakness and [...] ventilation for 10 days of hospitalization at [facility] from 02/1103/14/18. Records regarding the patient's hospitalization are not available to time of this documenta tion. Residual shortness of breath above baseline is noted. I suspect that the patient has evidence of significant deconditioning related to her critic al illness. Vertical illness polyneuropathy is another possibility. Mr. Keyes is appare ntly evaluating the patient's weakness. I would like to review records from [facility]. There is question as to whether Sarah [...] pulmonary nodule related to imaging performed at [facility] in August 2017. The patient had a follow-up CT scan at [facility] which apparently showed a small nodule measuring [...] 3. Request discharge summary and records from [facility]. 4. Nocturnal oximetry on CPAP/room air. 5. [...] [place] | | | | | | [address] | | | | | | | | +--------+ + + + + | 07/17/ | Appointment | Sleep Medicine | Jhon Watt, | | | 2017 | | | MD [facility] | | | | | | [place], Level II | | | | | | [place] | | | | | | [address] | | | | | | | [...]
--- OUTSIDE RECORDS SUMMARY | ~2018-06-24 | XMS | Clinical Summary ---
Demographics + + + | Address | [address] | | | [place] [address] | + + + | Home Phone | | + + + | Preferred Language | Unknown | + + + | Marital Status | | + + + | Orthodox Affiliation | Unknown | + + + | Race | Unknown | + + + | Ethnic Group | Unknown | + + + Author + + + | Author | [facility] | | | and Kamleshana | + + + | Organization | [facility] | | | and [...] Team Providers + +------+ + | Care Padded Products Finisher Name | Role | Phone | + [...] | | | | | | syndrome) ([facility]); | | | | | | Pneumonia due to | | | | | | human | | | | | | metapneumovirus | | | | | | (hMPV) | +--------+ + + + + | 06/12/ | Office | | Jhon Watt, | ARDS (adult | | 2017 | Visit | | MD | respiratory distress | | | | | | syndrome) ([facility]) | | | | | | (Primary [...] | 2017 | Visit | | [address] | | | | | | [place], [place] | | | | | | [place] | | | | | | [address] | | | | | | | | +--------+ + + + + | 07/17/ | Appointment | | Jhon Watt, | | | 2017 | | | MD [address] | | | | | | [place], Level II | | | | | | [place] | | | | | | [address] | | | | | | | [...] the | | | | | syndrome) ([facility]) | results section. | | | | [...] +--------+ +---------+ | MEDICARE | MEDICA | [id number] | Medica | [phone] | | | | RE | | re | [phone] | | | | PART A | | | | | | | AND B | | | | | + +--------+ +--------+ +---------+ | | CHAMPV | [id number] | Indemn | [phone] | | | | A | | [...] Self | [birth year] | Home: | [address] | | | al/Fam | | [phone] | [place] [address] | | | craig | | | [address] | | + +--------+ +--------+ + +
--- OUTSIDE RECORDS SUMMARY | ~2018-06-24 | XMS | Encounter Summary ---
Demographics + + + | Address | [address] | | | [place] [address] | + + + | Home Phone [...] | Author | [facility] [employer] [facility] | + + + | Organization [...] Team Providers + +------+ + | Care Linoleum Layer Helper Name | Role | Phone | + +------+ + | Jamel Keyes | PCP | | + +------+ + Encounter Details +--------+--------+ + + + | Date | Type | Department | Care Team | Description | +--------+--------+ + + + | 04/17/ | Refill | [facility] | Stella Rdz, | | | 2018 | | Endocrinology [address] | STEPHANIE | | | | | [address]enny [address] | | | | | | [place] | | | | | | [address] | | | | | | [phone] | | | +--------+--------+ + + + [...] [place] | | | | | | [place] [address] | | | | | | [phone] | | | | | | | | +--------+---------+ + + + as of this encounter Visit Diagnoses Not on filein this encounter"
[~2018-06-24 10:01] MED LIST changes: +CYCLOBENZAPRINE10 MG PO; +LORCET 5-325 M1 EACH PO
[2018-06-24] MEDS ORDERED: ONDANSETRON ODT8 MG PO (11:16)
[2018-06-24] MEDS ORDERED: PHENERGAN25 MG PR (11:16)
== END 2018-06-24 12:02 | disposition home or self-care (01) ==
LOC: ED 10:01
PROC: 0T9B70Z Drainage of Bladder with Drainage Device, Via Natural or Artificial Opening (ICD-10-PCS; principal; 2018-06-24)
DX: E11.43 Type 2 diabetes mellitus with diabetic autonomic (poly)neuropathy (principal); K31.84 Gastroparesis; I10 Essential (primary) hypertension; E66.9 Obesity, unspecified; F32.9 Major depressive disorder, single episode, unspecified; E78.00 Pure hypercholesterolemia, unspecified; Z79.4 Long term (current) use of insulin; Z79.899 Other long term (current) drug therapy
CPT/HCPCS: 51701; 80053; 81001; 82150; 83690; 85025; 87088; 96361; 96374; 99284; J2405; J7030

== ENCOUNTER 2019-02-03 12:47 | Emergency (ER) | payer MEDICARE, OTHER ==
[~2019-02-03] VITALS: Ht 160 cm; Wt 127.5 kg
--- OUTSIDE RECORDS SUMMARY | ~2019-02-03 | XMS | Encounter Summary ---
Demographics + + + | Address | [address] | | | [place] [address] | + + + | Home Phone | | + + + | Preferred Language | Unknown | + + + | Marital Status | | + + + | Taoism Affiliation | Unknown | + + + | Race | Unknown | + + + | Ethnic Group | Unknown | + + + Author + + + | Author | [facility] | + + + | Organization | [facility] | + + + | Address | Unknown | + + + | Phone | Unavailable | + + + Support + + +---------+ + | Name | Relationship | Address | Phone | + + +---------+ + | Van Reeves | ECON | Unknown | | + + +---------+ + | Cherelle Rea | ECON | Unknown | | + + +---------+ + Care Team Providers + +------+ + | Care Respiratory Physician Name | Role | Phone | + +------+ + | Jamel Johnson | PCP | | + +------+ + Reason for Visit + + + | Reason | Comments | + + + | Follow-up | | + + + Consultation (Routine) + +--------+ + + + + | Status | Reason | Specialty | Diagnoses / | Referred By | Referred To | | | | | Procedures | Contact | Contact | + +--------+ + + + + | Authorized | | Neurosurgery | Diagnoses | Stephy | Izaiah Cali | | | | | | Jamel R, SHARE HOLDER | Neurosurgery | | | | | Radiculopath | [address] | [address] | | | | | y, lumbar | Alonso Cruz | [address] | | | | | region | [place], | [place] | | | | | Other | [place] [address] | [place] | | | | | symptoms and | Phone: | [phone] | | | | | signs | [phone] | Phone: | | | | | involving | Fax: | [phone] | | | | | the | [phone] | Fax: | | | | | musculoskele | | [phone] | | | | | sayda system | | | | | | | Other | | | | | | | biomechanica | | | | | | | l lesions of | | | | | | | lumbar | | | | | | | region | | | + +--------+ + + + + Encounter Details +--------+---------+ + + + | Date | Type | Department | Care Team | Description | +--------+---------+ + + + | 02// | Office | [facility] | Leif Urbina MD | Spondylolisthesis of | | 2019 | Visit | [facility] | [address] | lumbar region | | | | [address] | Drive [place], [place] | (Primary Dx); Morbid | | | | [place], [place] | [address] | obesity (HCC) | | | | [address] | | | | | | [phone] | | | +--------+---------+ + + + Social History [...] | | + + +---------+ + | No | | | | + + +---------+ + + + + | Sex Assigned at | Date Recorded | | | | + + + | Not on file | | + + + as of this encounter Last Filed Vital Signs + + + + | Vital Sign | Reading | Time Taken | + + + + | Blood Pressure | - | - | + + + + | Pulse | - | - | + + + + | Temperature | - | - | + + + + | Respiratory Rate | - | - | + + + + | Oxygen Saturation | - | - | + + + + | Inhaled Oxygen | - | - | | Concentration | | | + + + + | Weight | 129.3 kg (285 lb) | 12/17/2018 2:08 PM PST | + + + + | Height | 160 cm (5' 3") | 12/17/2018 2:08 PM PST | + + + + | Body Mass Index | 50.49 | 12/17/2018 2:08 PM PST | + + + + in this encounter Progress Notes Leif Urbina MD - 12/17/2018 2:15 PM PSTFormatting of this note may be different from t he original. Subjective: This is a follow-up visit for this 63-year-old woman. She has a history of multiple medical issues including diabetes mellitus, morbid obesity, deep vein thrombosis, chronic lower devan k pain, knee problems. She has significant lumbar issues and is having more difficulty walki ng longer distances. She is having more frequent falls. She has had back pain since she was in her youth. She is always had obesity since she was in high school. Her sister is here wit h her and is normal size. Conservative treatments tried: Conservative measures tried and worked well are T.E.N.S , heat/cold therapy, acupuncture an d physical therapy. Conservative measures tried and did not work are chiropractic treatment and massage. Medications tried are Gabapentin, Tylenol. She has not had nerve blocks or i njections for pain relief. Objective: Walks slowly with walker. Morbid obesity with very large abdominal pannus. Strength 4+/5 legs. Imaging: Xrays Impression 1. Anterior spondylolisthesis of L5 on S1 measuring up 1 cm. Question bilateral pars defects of L5. 2. Multilevel degenerative change the in thoracolumbar spine Signed by: Calin Chavez Sign Date/Time: 11/18/2018 4:43 PM Assessment/Plan: 63 year old woman with multiple medical comorbidities, chronic lower back pain which is lik verenice related to facet arthropathy as well as L5 pars defects with spondylolisthesis. This typ e of instability generally requires a lumbar instrumented fusion. She is not a medical cristofer date at this time because of her BMI greater than 50 and her poor diabetic control. She has a history of deep vein thrombosis as well on blood thinners and ARDS with 10 day ICU stay a meena GOMEZ. Overall I think the patient's medical comorbidities and risks outweigh any potential benefits from lumbar spine surgery. I would suggest she possibly consider a gastric bypass if that is what needs to be done to get her weight under control. If she is able to get her BMI down closer to 40, we could revisit the possibility of surgery. CC: JAMEL JOHNSON Note: We spent approximately 25 minutes in [id number] time of which greater than 50% was involved in counseling/coordination of care. in this encounter Plan of Treatment +--------+---------+ + + + | Date | Type | Specialty | Care Team | Description | +--------+---------+ + + + | 03/11/ | Office | Endocrinology | Jerman Bob, | | | 2018 | Visit | | MD Alberto [address]INE | | | | | | [place] | | | | | | [place] [address] | | | | | | [phone] | | | | | | | | +--------+---------+ + + + as of this encounter Visit Diagnoses + + | Diagnosis | + + | Spondylolisthesis of lumbar region - Primary | + + | Acquired spondylolisthesis | + + | Morbid obesity (HCC) | + + | Morbid obesity | + +
--- OUTSIDE RECORDS SUMMARY | ~2019-02-03 | XMS | Clinical Summary ---
Demographics + + + | Address | [address] | | | [place] [address] | + + + | Home Phone | | + + + | Preferred Language | Unknown | + + + | Marital Status | | + + + | Roman Catholic Affiliation | Unknown | + + + | Race | Unknown | + + + | Ethnic Group | Unknown | + + + Author + + + | Author | [facility] | + + + | Organization | [facility] | + + + | Address | Unknown | + + + | Phone | Unavailable | + + + Support + + +---------+ + | Name | Relationship | Address | Phone | + + +---------+ + | Van Linn | ECON | Unknown | | + + +---------+ + | Cherelle Rea | ECON | Unknown | | + + +---------+ + Care Team Providers + +------+ + | Care Slurry Control Tender Name | Role | Phone | + +------+ + | Jamel Keyes | PP | | + +------+ + Allergies + + + + + + | Active Allergy | Reactions | Severity | Noted | Comments | | | | | Date | | + + + + + + | Metformin | Diarrhea | Low | 08/01/20 | | | | | | 16 | | + + + + + + Current Medications + + +---------+---------+------+------+-------+ | Prescription | Sig. | Disp. | Refills | Star | End | Statu | | | | | | t | Date | s | | | | | | Date | | | + + +---------+---------+------+------+-------+ | VENTOLIN HFA 108 | | | | 08/1 | | Activ | | (90 BASE) MCG/ACT | | | | 05/31 | | e | | inhaler | | | | 16 | | | + + +---------+---------+------+------+-------+ | doxycycline | | | | 09/0 | | Activ | | (MONODOX) 100 MG | | | | 05/31 | | e | | capsule | | | | 16 | | | + + +---------+---------+------+------+-------+ | | Inhale two | | | / | | Activ | | budesonide-formotero | inhalations by mouth | | | 08/01 | | e | | l (SYMBICORT) | twice daily | | | 16 | | | | 160-4.5 MCG/ACT | | | | | | | | inhaler | | | | | | | + + +---------+---------+------+------+-------+ | promethazine | Take 25 mg by mouth. | | | 07/13 | | Activ | | (PHENERGAN) 25 MG | | | | 2/20 | | e | | tablet | | | | 16 | | | + + +---------+---------+------+------+-------+ | sertraline | Take 100 mg by | | | | | Activ | | (ZOLOFT) 100 MG | mouth. | | | | | e | | tablet | | | | | | | + + +---------+---------+------+------+-------+ | silver | Apply topically. | | | 07/13 | | Activ | | sulfADIAZINE | | | | 2/20 | | e | | (SILVADENE) 1 % | | | | 16 | | | | cream | | | | | | | + + +---------+---------+------+------+-------+ | simvastatin | Take 20 mg by mouth | | | | | Activ | | (ZOCOR) 10 MG tablet | nightly. | | | | | e | + + +---------+---------+------+------+-------+ | | Take 1 tablet by | | | | | Activ | | lisinopril-hydrochlo | mouth daily. | | | | | e | | rothiazide | | | | | | | | (PRINZIDE,ZESTORETIC | | | | | | | | ) 20-25 MG per | | | | | | | | tablet | | | | | | | + + +---------+---------+------+------+-------+ | Potassium | Take 10 mEq by mouth | | | | | Activ | | (POTASSIMIN PO) | daily. | | | | | e | + + +---------+---------+------+------+-------+ | FUROSEMIDE PO | Take 40 mg by mouth | | | | | Activ | | | daily. | | | | | e | + + +---------+---------+------+------+-------+ | insulin aspart | Inject 30 Units into | 90 mL | 3 | 03/1 | | Activ | | (NOVOLOG) 100 | the skin 3 (three) | | | 9/20 | | e | | UNIT/ML injection | times daily before | | | 18 | | | | | meals. | | | | | | + + +---------+---------+------+------+-------+ | TOUJEO SOLOSTAR | Inject 75 Units into | 18 mL | 3 | 06/0 | | Activ | | 300 UNIT/ML | the skin nightly. | | | 6/20 | | e | | injection | | | | 18 | | | + + +---------+---------+------+------+-------+ | Melatonin 5 MG | Take 10 mg by mouth | | | | | Activ | | CAPS | nightly. | | | | | e | + + +---------+---------+------+------+-------+ | Cholecalciferol | Take 1,000 Units by | | | | | Activ | | 1000 units capsule | mouth daily. | | | | | e | + + +---------+---------+------+------+-------+ | Coenzyme | Take 150 mg by | | | | | Activ | | [id number]-Lvykfrg E | mouth. | | | | | e | | 100-150 MG-UNIT CAPS | | | | | | | + + +---------+---------+------+------+-------+ | omeprazole | Take 20 mg by mouth | | | | | Activ | | (PRILOSEC) 20 MG | every morning before | | | | | e | | capsule | breakfast. | | | | | | + + +---------+---------+------+------+-------+ | gabapentin | Take 300 mg by mouth | | | | | Activ | | (NEURONTIN) 300 MG | 3 (three) times | | | | | e | | capsule | daily. 1 cap AM and | | | | | | | | 2 caps PM | | | | | | + + +---------+---------+------+------+-------+ | fexofenadine | Take 180 mg by mouth | | | | | Activ | | (CARTER) 180 MG | daily. | | | | | e | | tablet | | | | | | | + + +---------+---------+------+------+-------+ | apixaban (ELIQUIS) | Take 5 mg by mouth 2 | | | | | Activ | | 5 MG tablet | (two) times daily. | | | | | e | + + +---------+---------+------+------+-------+ | ondansetron | Take 4 mg by mouth 3 | | | | | Activ | | (ZOFRAN) 4 MG tablet | (three) times daily | | | | | e | | | as needed for | | | | | | | | Nausea. | | | | | | + + +---------+---------+------+------+-------+ | amoxicillin | Take 500 mg by mouth | | | | | Activ | | (AMOXIL) 500 MG | 2 (two) times | | | | | e | | capsule | daily. | | | | | | + + +---------+---------+------+------+-------+ Active Problems + + + | Problem | Noted Date | + + + | Morbid obesity (HCC) | 12/20/2018 | + + + | Spondylolisthesis of lumbar region | 12/20/2018 | + + + | Pars defect of lumbar spine | 11/19/2018 | + + + | Degeneration of intervertebral disc of lumbar region | 11/19/2018 | + + + | Herniated lumbar intervertebral disc | 11/19/2018 | + + + | Neural foraminal stenosis of lumbar spine | 11/19/2018 | + + + | Lumbar facet arthropathy | 11/19/2018 | + + + | Epidural lipomatosis | 11/19/2018 | + + + | Type II diabetes mellitus, uncontrolled | 08/01/2016 | + + + | Pure hypercholesterolemia | 08/01/2016 | + + + | Essential hypertension with goal blood pressure less than 130/80 | 08/01/2016 | + + + Encounters +--------+ + + + + | Date | Type | Specialty | Care Team | Description | +--------+ + + + + | 12/17/ | Office | | Leif Urbina MD | Spondylolisthesis of | | 2019 | Visit | | | lumbar region | | | | | | (Primary Dx); Morbid | | | | | | obesity (HCC) | +--------+ + + + + | 11/27/ | Office | | Jerman Bob, | Uncontrolled type 2 | | 2018 | Visit | | MD | diabetes mellitus | | | | | | with hyperglycemia, | | | | | | with long-term | | | | | | current use of | | | | | | insulin (HCC) | | | | | | (Primary Dx); Pure | | | | | | hypercholesterolemia | | | | | | ; Hypertension with | | | | | | goal blood pressure | | | | | | less than 140/90 | +--------+ + + + + | 11/18/ | Office | | Jose Covarrubias, | Pars defect of | | 2018 | Visit | | DOCTOR OF OSTEOPATHY | lumbar spine | | | | | | (Primary Dx); | | | | | | Degeneration of | | | | | | intervertebral disc | | | | | | of lumbar region; | | | | | | Herniated lumbar | | | | | | intervertebral disc; | | | | | | Neural foraminal | | | | | | stenosis of lumbar | | | | | | spine; Lumbar facet | | | | | | arthropathy; | | | | | | Epidural lipomatosis | +--------+ + + + + | 11/18/ | Hospital | | Jose Covarrubias, | Pain | | 2019 | Encounter | | DOCTOR OF OSTEOPATHY | | +--------+ + + + + from Last 3 Months Immunizations + + + + | Name | Dates Previously Given | Next Due | + + + + | INFLUENZA PF, | 08/28/2016, 02/02/2016 | | | QUADRIVALENT | | | | (PED/ADOL/ADULT) | | | + + + + | Influenza 4y or | 09/17/2009 | | | >,Quad derived from | | | | Tiss-cult (MDV) | | | + + + + | Influenza, PF | 08/15/2012, 09/07/2011 | | | Trivalent | | | + + + + | Influenza, Trivalent | 09/12/2010, 08/26/2009 | | | W/Preservative | | | + + + + | Pneumococcal | 06/26/2018 | | | Conjugate 13-valent | | | + + + + | Pneumococcal | 02/10/2016, 02/02/2016 | | | Polysaccharide | | | | 23-valent | | | + + + + | Tdap | 06/12/2011 | | + + + + Family History + + +------+ + | Medical History | Relation | Name | Comments | + + +------+ + | Diabetes type II | Maternal | | | | | Grandmoth | | | | | er | | | + + +------+ + | Cancer | Mother | | | + + +------+ + | Diabetes type II | Mother | | | + + +------+ + | Diabetes | Other | | | + + +------+ + + +------+ + + | Relation | Name | Status | Comments | + +------+ + + | Father | | | | + +------+ + + | Maternal Grandmother | | | | + +------+ + + | Mother | | | | + +------+ + + | Other | | | | + +------+ + + Social History + +-------+ +--------+------+ [...] on file | | + + + Last Filed Vital Signs + + + + | Vital Sign | Reading | Time Taken | + + + + | Blood Pressure | 148/76 | 11/27/2018 1:22 PM PST | + + + + | Pulse | 104 | 11/27/2018 1:22 PM PST | + + + + | Temperature | - | - | + + + + | Respiratory Rate | - | - | + + + + | Oxygen Saturation | 94% | 11/27/2018 1:22 PM PST | + + + + | Inhaled [...] PM PST | + + + + Plan of Treatment +--------+---------+ + + + | Date | Type | Specialty | Care Team | Description | +--------+---------+ + + + | 03/11/ | Office | | Jerman Bob, | | | 2019 | Visit | | MD Alberto AUGUSTINE | | | | | | [address] | | | | | | [place] [address] | | | | | | [phone] | | | | | | | | +--------+---------+ + + + + + + + + | Health Maintenance | Due Date | Last Done | Comments | + + + + + | Diabetic Eye Exam | | | | | | 5 | | | + + + + + | Hemoglobin A1c | | | | | | 5 | | | + + + + + | Microalbumin | | | | | Screening | 5 | | | + + + + + | Cervical Cancer | | | | | Screening (Pap) | 5 | | | + + + + + | Breast Cancer | | | | | Screening | 5 | | | | (Mammogram) | | | | + + + + + | Colon Cancer | | | | | Screening | 5 | | | | (Colonoscopy) | | | | + + + + + | Vaccine: Zoster (1 | | | | | of 2) | 5 | | | + + + + + | Vaccine: Influenza | | 08/28/2016, 02/02/2016, | | | (#1) | 8 | 08/15/2012, Additional history | | | | | exists | | + + + + + | Diabetic Foot Exam | | 08/13/2018 | | | | 9 | | | + + + + + | Vaccine: | | 06/12/2011 | | | Dtap/Tdap/Td (2 - | 1 | | | | Td) | | | | + + + + + | Vaccine: | Completed | 02/10/2016, 02/02/2016 | | | Pneumococcal 19-64 | | | | | (PPSV23 only) Medium | | | | | Risk | | | | + + + + + Procedures + +--------+ + + + | Procedure Name | Priori | Date/Time | Associated Diagnosis | Comments | | | ty | | | | + +--------+ + + + | XR LUMBAR SPINE 4 OR | Routin | 11/18/2018 | Pain | Results for this | | MORE VIEWS | e | 1:53 PM | | procedure are in the | | | | PST | | results section. | + +--------+ + + + from Last 3 Months Results X-ray lumbar spine 4-5 views (11/18/2018 1:53 PM) + + + | Impressions | Performed At | + + + | 1. Anterior spondylolisthesis of L5 on S1 measuring up 1 | [facility] | | cm. Question bilateral pars defects of L5. 2. Multilevel | RAD[facility]Y | | degenerative change the in thoracolumbar spine Signed by: Scott, | | | Calin Sign Date/Time: 11/18/2018 4:43 PM | | + + + + + + | Narrative | Performed At | + + + | LUMBAR SPINE FOUR VIEWS CLINICAL INFORMATION: pain COMPARISON: | [facility] | | None. FINDINGS: Alignment: Anterior spondylolisthesis of L5 on S1 | [facility] | | measuring 1 cm with flexion and 1 cm with extension. Vertebrae: | | | Vertebral heights are maintained. Lumbar Disc Levels: Multilevel disc | | | space narrowing with endplate spurring seen throughout the | | | thoracolumbar spine. This is greatest at L5-S1 which is moderate | | | to severe. Facets and Posterior Spinal Elements: With bilateral pars | | | defects of L5. Multilevel degenerative facet disease. | | + + + + + | Procedure Note | + + | Bo De La Rosa Results In 11/18/2018 4:46 PM PST LUMBAR SPINE FOUR VIEWS | | CLINICAL INFORMATION: | | pain | | COMPARISON: | | None. | | FINDINGS: | | Alignment: Anterior spondylolisthesis of L5 on S1 measuring 1 cm with | | flexion and 1 cm with extension. | | Vertebrae: Vertebral heights are maintained. | | Lumbar Disc Levels: Multilevel disc space narrowing with endplate | | spurring seen throughout the thoracolumbar spine. This is greatest at | | L5-S1 which is moderate to severe. | | Facets and Posterior Spinal Elements: With bilateral pars defects of | | L5. Multilevel degenerative facet disease. | | IMPRESSION: | | 1. Anterior spondylolisthesis of L5 on S1 measuring up 1 cm. Question | | bilateral pars defects of L5. | | 2. Multilevel degenerative change the in thoracolumbar spine | | Signed by: Calin Chavez | | Sign Date/Time: 11/18/2018 4:43 PM | + + + + + + + | Performing | Address | City/State/Zipcode | Phone Number | | Organization | | | | + + + + + | [facility] | [address] | [place] [address] | | + + + + + from Last 3 Months Insurance + +--------+ +------+-------+ + | Payer | Benefi | Subscriber | Type | Phone | Address | | | t Plan | ID | | | | | | / | | | | | | | Group | | | | | + +--------+ +------+-------+ + | MEDICARE | MEDICA | [id number] | | | [address] | | | RE | | | | [place] [address] | | | IP-OP | | | | | + +--------+ +------+-------+ + | - WPS - | CHAMPV | [id number] | | | [address] [address] | | | A | | | | [place] | | | | | | | [phone] | + +--------+ +------+-------+ + + +--------+ +--------+ + + | Guarantor Name | Accoun | Relation to | Date | Phone | Billing Address | | | t Type | Patient | of | | | | | | | | | | + +--------+ +--------+ + + | SARAH LINN | Person | Self [birth year] | Home: | [address] | | | al/Fam | | [phone] | [phone] [place] [address] | | | craig | | | [phone] | | + +--------+ +--------+ + +
--- OUTSIDE RECORDS SUMMARY | ~2019-02-03 | XMS | Encounter Summary ---
Demographics + + + | Address | [address] | | | [place] [address] | + + + | Home Phone | | + + + | Preferred Language | Unknown | + + + | Marital Status | | + + + | Rastafari Affiliation | Unknown | + + + | Race | Unknown | + + + | Ethnic Group | Unknown | + + + Author + + + | Author | [facility] | | | and [place] | + + + | Organization | [facility] | | | and [facility] [...] | | + + +---------+ + | Van Reeves | ECON | Unknown | | + + +---------+ + | Cherelle Rea | ECON | Unknown | | + + +---------+ + Care Team Providers + +------+ + | Care Infrastructure Solutions Architect Name | Role | Phone | + +------+ + | Jamel Keyes NP | PCP | | + +------+ + Encounter Details +--------+ + + + + | Date | Type | Department | Care Team | Description | +--------+ + + + + | 11/14/ | Ancillary | [facility] | Provider, | | | 2019 | Orders | [facility] | [address] | | | | | IMAGING | [place] | | | | | [phone] | [place] [address] | | +--------+ + + + + [...] this encounter Plan of Treatment Not on fileas of this encounter Results XR Chest 1 Vw (10/21/[id number]) + + + | Narrative | Performed At | + + + | External films for comparison only | [facility] | | | | | No results will be in the chart. | | + + + + +---------+ + + | Performing | Address | City/State/Zipcode | Phone Number | | Organization | | | | + +---------+ + + | [facility] | | | | + +---------+ + + in this encounter Visit Diagnoses Not on filein this encounter"
--- OUTSIDE RECORDS SUMMARY | ~2019-02-03 | XMS | Clinical Summary ---
Demographics + + + | Address | [address] | | | [place] [address] | + + + | Home Phone | | + + + | Preferred Language | Unknown | + + + | Marital Status | Single | + + + | Sabianism Affiliation | NON | + + + | Race | White | + + + | Ethnic Group | Not or | + + + Author + + + | Author | [facility] | + + + | Organization | [facility] | + + + | Address | Unknown | + + + | Phone | Unavailable | + + + Support + + + + + | Name | Relationship | Address | Phone | + + + + + | BALBINA OLGUIN | ECON | [place], [place] | | | | | [address] | | + + + + + | Van Linn | ECON | [address] | | | | | [place] | | | | | [address] | | + + + + + | Cherelle Rea | ECON | Unknown | | + + + + + Care Team Providers + +------+ + | Care Social Work Professor Name | Role | Phone | + +------+ + | Jamel Keyes NP | PP | | + +------+ + Source Comments [facility] is fully live on both [facility] and [facility] InPatient.[facility] Allergies No Known Allergies Current Medications + + +--------+---------+------+------+-------+ | Prescription | Sig. | Disp. | Refills | Star | End | Statu | | | | | | t | Date | s | | | | | | Date | | | + + +--------+---------+------+------+-------+ | sertraline 100 mg | Take 100 mg by mouth | | | | | Activ | | oral tablet | once daily. | | | | | e | + + +--------+---------+------+------+-------+ | omeprazole 20 mg | Take 20 mg by mouth | | | | | Activ | | oral capsule,delayed | once daily. | | | | | e | | release(DR/EC) | | | | | | | + + +--------+---------+------+------+-------+ | albuterol 90 | Inhale 2 puffs by | | | | | Activ | | mcg/actuation | mouth every six | | | | | e | | inhalation HFA | hours as needed. | | | | | | | aerosol inhaler | | | | | | | + + +--------+---------+------+------+-------+ | | Inhale 2 puffs by | | | | | Activ | | budesonide-formotero | mouth two times | | | | | e | | l 160-4.5 | daily. Indications: | | | | | | | mcg/actuation | Maintenance Therapy | | | | | | | inhalation HFA | for Asthma | | | | | | | aerosol | | | | | | | | inhalerIndications: | | | | | | | | Controller | | | | | | | | Medication for | | | | | | | | Asthma | | | | | | | + + +--------+---------+------+------+-------+ | potassium chloride | Take 10 mEq by mouth | | | | | Activ | | SR 10 mEq oral | once daily. | | | | | e | | tablet,ER | | | | | | | | particles/crystals | | | | | | | + + +--------+---------+------+------+-------+ | ondansetron ODT 4 | Dissolve 4 mg on | | | | | Activ | | mg oral | tongue and swallow | | | | | e | | tablet,disintegratin | three times daily as | | | | | | | g | needed. | | | | | | + + +--------+---------+------+------+-------+ | amLODIPine 10 mg | Take 1 tablet by | 30 | 1 | 05/0 | | Activ | | oral tablet | mouth once daily. | tablet | | 4/20 | | e | | | | | | 18 | | | + + +--------+---------+------+------+-------+ | aspirin chewable | Chew and swallow 1 | 30 | 1 | 05/0 | | Activ | | 81 mg oral | tablet once daily. | tablet | | 4/20 | | e | | tablet,chewable | | | | 18 | | | + + +--------+---------+------+------+-------+ | enoxaparin 40 | Inject 0.4 mL under | | | 05/0 | | Activ | | mg/0.4 mL | the skin (SUBC) once | | | 4/20 | | e | | subcutaneous syringe | daily in the | | | 18 | | | | | evening. Until | | | | | | | | patient becomes more | | | | | | | | ambulatory. | | | | | | + + +--------+---------+------+------+-------+ | insulin aspart | Inject 10 Units | | | 05/0 | | Activ | | U-100 (NOVOLOG | under the skin | | | 4/20 | | e | | FLEXPEN U-100 | (SUBC) three times | | | 18 | | | | INSULIN) 100 unit/mL | daily before meals. | | | | | | | subcutaneous | Adjust as needed | | | | | | | insulin pen | based off CBGs | | | | | | + + +--------+---------+------+------+-------+ | insulin glargine | Inject 20 Units | | | 05/0 | | Activ | | 300 unit/mL (1.5 mL) | under the skin | | | 4/20 | | e | | subcutaneous | (SUBC) once daily at | | | 18 | | | | insulin pen | bedtime. Adjust as | | | | | | | | needed based off | | | | | | | | CBGs | | | | | | + + +--------+---------+------+------+-------+ | lisinopril 10 mg | Take 1 tablet by | | | 05/0 | | Activ | | oral tablet | mouth once daily. | | | 4/20 | | e | | | | | | 18 | | | + + +--------+---------+------+------+-------+ Active Problems + + + | Problem | Noted Date | + + + | Moderate protein-calorie malnutrition (HCC) | 03/10/2018 | + + + | T2DM (type 2 diabetes mellitus) (HCC) | 02/25/2018 | + + + | Abnormal ventricular wall motion | 02/25/2018 | + + + | (HFpEF) heart failure with preserved ejection fraction (HCC) | 02/21/2018 | + + + | ARDS (adult respiratory distress syndrome) ([facility]) | 02/18/2018 | + + + | Pneumonia due to human metapneumovirus (hMPV) | 02/18/2018 | + + + | Severe obesity (BMI >= 40) ([facility]) | 02/18/2018 | + + + | Encephalomyelitis, autoimmune | 02/18/2018 | + + + | SVT (supraventricular tachycardia) ([facility]) | 02/18/2018 | + + + | HTN (hypertension) | 02/18/2018 | + + + Resolved Problems + + + + | Problem | Noted | Resolved | | | Date | Date | + + + + | Leukocytosis | 02/22/20 | | | | 18 | 8 | + + + + | CKD (chronic kidney disease) | 02/19/20 | | | | 18 | 8 | + + + + Immunizations + + + + | Name | Dates Previously Given | Next Due | + + + + | Ppd (tuberculin | 03/12/2018 | | | Purified Protein | | | | Derivative) | | | + + + + Social History + +-------+ +--------+------+ | Tobacco Use | Types | Packs/Day | Years | Date | | | | | Used | | + +-------+ +--------+------+ | Never Smoker | | | | | + +-------+ +--------+------+ + +---+---+---+ | Smokeless Tobacco: | | | | | Never Used | | | | + +---+---+---+ + + + | Sex Assigned at | Date Recorded | | | | + + + | Not on file | | + + + Last Filed Vital Signs + + + + | Vital Sign | Reading | Time Taken | + + + + | Blood Pressure | 157/71 | 07/31/2018 2:18 PM PDT | + + + + | Pulse | 83 | 07/31/2018 2:18 PM PDT | + + + + | Temperature | 36.3 C (97.3 F) | 03/15/2018 8:18 AM PDT | + + + + | Respiratory Rate | 16 | 03/15/2018 8:18 AM PDT | + + + + | Oxygen Saturation | 100% | 03/15/2018 8:18 AM PDT | + + + + | Inhaled Oxygen | - | - | | Concentration | | | + + + + | Weight | 126.1 kg (278 lb) | 07/31/2018 2:18 PM PDT | + + + + | Height | 168 cm (5' 6.14") | 02/19/2018 2:31 AM PDT | + + + + | Body Mass Index | 44.68 | 07/31/2018 2:18 PM PDT | + + + + Plan of Treatment + + + + + | Health Maintenance | Due Date | Last Done | Comments | + + + + + | Influenza (Flu) | | 08/28/2016, 02/02/2016, | | | vaccination (#1) | 8 | 09/15/2014, Additional history | | | | | exists | | + + + + + | Pneumococcal (Adult) | Completed | 06/26/2018, 02/02/2016, | | | | | 03/01/2006 | | + + + + + Results Not on filefrom Last 3 Months Insurance + +--------+ +--------+ + + | Payer | Benefi | Subscriber | Type | Phone | Address | | | t Plan | ID | | | | | | / | | | | | | | Group | | | | | + +--------+ +--------+ + + | MEDICARE | MEDICA | xxxxxxxxxxx | Medica | [phone] | [address] | | | [place] & | | re | [phone] | [place] [address] | | | B | | | | | + +--------+ +--------+ + + | | CHAMPV | xxxxxxxxx | Indemn | [phone] | | | | A | | ity | [phone] | | + +--------+ +--------+ + + + +--------+ +--------+ + + | Guarantor Name | Accoun | Relation to | Date | Phone | Billing Address | | | t Type | Patient | of | | | | | | | | | | + +--------+ +--------+ + + | MARICRUZ LINN A | Person | Self [birth year] | Home: | [address] | | | al/Fam | | 5 | +- | [place] [address] | | | craig | | | [address] | | + +--------+ +--------+ + + | MARICRUZ LINN | [place] | Self [birth year] | Home: | [address] | | | [place] | | 1954 | +- | [place] [address] | | | red | | | [address] | | + +--------+ +--------+ + +
--- OUTSIDE RECORDS SUMMARY | ~2019-02-03 | XMS | Encounter Summary ---
Demographics + + + | Address | [address] | | | [place] [address] | + + + | Home Phone | | + + + | Preferred Language | Unknown | + + + | Marital Status | | + + + | Orthodox Affiliation | Unknown | + + + | Race | Unknown | + + + | Ethnic Group | Unknown | + + + Author + + + | Author | [facility] [employer] | + + + | Organization | [facility] [employer] | + + + | Address [...] Team Providers + +------+ + | Care Electromyographic Technician Name | Role | Phone | + +------+ + | Jamel Johnson | PCP | | + +------+ + Reason for Visit + + + | Reason | Comments | + + + | Back Pain | | + + + Consultation (Routine) [...] | | | | | Jamel R, ASPHALT PAVER OPERATOR | Neurosurgery | | | | | Radiculopath | [address] | [address] | | | | | y, lumbar | [address] | [address] | | | | | region | [place], | [place] [address] | | | | | Other | [place] [address] | [place], [place] | | | | | symptoms and | Phone: | [phone] | | | | | signs | [phone] | Phone: | | | | | involving | Fax: | [phone] | | | | | the | [phone] | Fax: | | | | | musculoskele | | [phone] | | | | | sayda system [...] Description | +--------+---------+ + + + | 11/18/ | Office | [facility] | Jose Covarrubias, | Pars defect of | | 2019 | Visit | [facility] | DIRECTOR [facility] [address] | lumbar spine | | | | [address] | [address] Grier, | (Primary Dx); | | | | [place], [place] | [place] [address] | Degeneration of | | | | [phone] | [phone] | intervertebral disc | | | | [phone] | | of lumbar region; | | | | | | Herniated lumbar | | | | | | intervertebral disc; | | | | | | Neural foraminal | | | | | | stenosis of lumbar | | | | | | spine; Lumbar facet | | | | | | arthropathy; | | | | | | Epidural lipomatosis | +--------+---------+ + + + Social History [...] + + + | Blood Pressure | 150/76 | 11/18/2018 2:55 PM PST | + + + + | Pulse | 85 | 11/18/2018 2:55 PM PST | + + + + | Temperature | - | - | + + + + | Respiratory Rate | - | - | + + + + | Oxygen Saturation | - | - | + + + + | Inhaled Oxygen | - | - | | Concentration | | | + + + + | Weight | 125.6 kg (277 lb) | 11/18/2018 2:55 PM PST | + + + + | Height | 162.6 cm (5' 4") | 11/18/2018 2:55 PM PST | + + + + | Body Mass Index | 47.55 | 11/18/2018 2:55 PM PST | + + + + in this encounter Progress Notes Jose Covarrubias ARNP - 11/18/2018 3:00 PM PSTFormatting of this note may be different fro m the original. Neurosurgery Sarah Reeves is a 63 y.o. female seen in consultation at the request of Jamel Johnson. Referring Provider: Jamel Johnson Reason for Consultation: Back Pain History Obtained from: Patient Subjective History of Present Illness: Sarah Reeves is a 63 y.o. female seen in consultation at the request of Jamel Johnson FNP for complaints of pain that is located in the midline lower lumbar region. She states that she has been having difficulty walking longer distances recently. She feels as though her legs will "give out" on her. She is having more falls. Onset of pain was in 2006. She has been having low back pain ever since she was 12 years old. There was no trauma or inci ting event. Pain is constant. Pain has increased. She rates her pain at its worst a 9/10, at its least a 7/10, on average a 8/10 and is currently a 9/10. Pain feels like burning, t hrobbing, electrical and tight. walking, sitting, physical activity, standing and lying ambrosio n makes the pain worse. lying down and heat makes the pain better. Associated symptoms are increased sensitivity to touch and tingling, pins and needles. She reports going to the ED on 10/22/2018 and was diagnosed with a DVT and put on lifelong anticoagulation. She can sit, 31-45 mintues, stand, less than 15 minutes, and walk, less than 15 minutes. Sleep is interrupted by the pain not at all. Leaning forward the pain is no change. Leani ng backward the pain is no change. Conservative treatments tried: Conservative measures tried and worked well are T.E.N.S , heat/cold therapy, acupuncture an d physical therapy. Conservative measures tried and did not work are chiropractic treatment and massage. Medications tried are Gabapentin, Tylenol. She has not had nerve blocks or i njections for pain relief. History of cancer, fever, or infection?: yes, uterine cancer treated with hysterectomy in 1995. Bowel and Bladder Changes/Incontinence?: yes, urine urgency. 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 Social History Main Topics Smoking status: Never Smoker Smokeless tobacco: Never Used Alcohol use No Drug use: No Sexual activity: Not on file Other Topics Concern Not on file Social History Narrative No narrative on file Family History Problem Relation Age of Onset Diabetes type II Mother Cancer Mother Diabetes type II Maternal Grandmother Diabetes Other Current Outpatient Prescriptions: amoxicillin (AMOXIL) 500 MG capsule, Take 500 mg by mouth 2 (two) times daily., Disp: , Rfl: apixaban (ELIQUIS) 5 MG tablet, Take 5 mg by mouth 2 (two) times daily., Disp: , Rfl: budesonide-formoterol (SYMBICORT) 160-4.5 MCG/ACT inhaler, Inhale two inhalations by m outh twice daily, Disp: , Rfl: Cholecalciferol 1000 units capsule, Take 1,000 Units by mouth daily., Disp: , Rfl: Coenzyme W42-Yehjefy E 100-150 MG-UNIT CAPS, Take 150 mg by mouth., Disp: , Rfl: fexofenadine (CARTER) 180 MG tablet, Take 180 mg by mouth daily., Disp: , Rfl: FUROSEMIDE PO, Take 40 mg by mouth daily., Disp: , Rfl: gabapentin (NEURONTIN) 300 MG capsule, Take 300 mg by mouth 3 (three) times daily. 1 c ap AM and 2 caps PM, Disp: , Rfl: insulin aspart (NOVOLOG) 100 UNIT/ML injection, Inject 30 Units into the skin 3 (three ) times daily before meals., Disp: 90 mL, Rfl: 3 lisinopril-hydrochlorothiazide (PRINZIDE,ZESTORETIC) 20-25 MG per tablet, Take 1 table t by mouth daily., Disp: , Rfl: Melatonin 5 MG CAPS, Take 10 mg by mouth nightly., Disp: , Rfl: omeprazole (PRILOSEC) 20 MG capsule, Take 20 mg by mouth every morning before breakfas t., Disp: , Rfl: ondansetron (ZOFRAN) 4 MG tablet, Take 4 mg by mouth 3 (three) times daily as needed f or Nausea., Disp: , Rfl: Potassium (POTASSIMIN PO), Take 10 mEq by mouth daily., Disp: , Rfl: sertraline (ZOLOFT) 100 MG tablet, Take 100 mg by mouth., Disp: , Rfl: simvastatin (ZOCOR) 10 MG tablet, Take 20 mg by mouth nightly., Disp: , Rfl: TOUJEO SOLOSTAR 300 UNIT/ML injection, Inject 75 Units into the skin nightly., Disp: 1 8 mL, Rfl: 3 VENTOLIN HFA 108 (90 BASE) MCG/ACT inhaler, , Disp: , Rfl: doxycycline (MONODOX) 100 MG capsule, , Disp: , Rfl: promethazine (PHENERGAN) 25 MG tablet, Take 25 mg by mouth., Disp: , Rfl: silver sulfADIAZINE (SILVADENE) 1 % cream, Apply topically., Disp: , Rfl: Allergies: Allergies Allergen Reactions Metformin Diarrhea Review of Systems: ROS As per HPI, otherwise a 10 point ROS was performed and was negative OBJECTIVE: PHYSICAL EXAM: Vital Signs: Vitals: 11/18/18 1455 BP: 150/76 Pulse: 85 Body mass index is 47.55 kg/m. Constitutional: Well-developed, morbidly obese, in no apparent distress, appears stated ag e, casually dressed, well-groomed Psychiatric: She has a normal mood and affect. Her behavior is normal. Thought content no rmal. HEENT: Normocephalic, atraumatic, neck supple Skin: Skin is warm and dry. No rash or acute lesions noted. She is not diaphoretic. No corby thema. No pallor. Cardiovascular: Normal rate. Pulmonary/Chest: Effort normal. No respiratory distress. Abdominal: Soft. Nontender. Vascular: No edema, good capillary refill, pulses are palpable Musculoskeletal: Normal tone, no fasciculations or atrophy, DUSTIN negative Neck: Normal range of motion. Neurological: Mentation: Alert and oriented x 3, fluent speech Motor: 5/5 HF, HE, KF, KE, 4+/5 left DF, 4+/5 left EHL, 5-/5 left PF; Gait: Unstable walk. Uses a wheelchair. Spine Exam: Back ROM reduced in flexion/extension, SLR negative, deformity absent Sensation: LT and pin decreased to from mid calf to the ankles bilaterally. Reflexes: DTRs 2+ bilateral knees and right achilles, 1+ left achilles IMAGING STUDIES: Both the films and available radiology reports are personally reviewed. Xray lumbar spine done on 11/18/2017: Bilateral L5 pars defects. Anterolisthesis of L5 on S1. Disc degeneration most significan t at the L4-5 and L5-S1 levels. MRI lumbar spine done on 03/01/2018: Multilevel degenerative changes and lumbar spine. No high-grade central canal stenosis see n. Possible small subdural fluid collection in the ventral canal at L4-5, L5 pars defects n oted bilaterally. ASSESSMENT and PLAN: Visit Diagnoses and Associated Orders: Sarah was seen today for back pain. 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 I answered his/her questions. We reviewed treatment option s including, but not limited to, no treatment, continued medical treatment/conservative rafaela ures and surgical options. I did discuss: - The patient has complaints of pain that is located in the midline lower lumbar region. She states that she has been having difficulty walking longer distances recently. She feel s as though her legs will "give out" on her. She is having more falls. Onset of pain was i n 2006. She has been having low back pain ever since she was 12 years old. There was no tr auma or inciting event. Pain is constant. Pain has increased. - MRI lumbar spine shows Multilevel degenerative changes and lumbar spine. No high-grade central canal stenosis seen. Possible small subdural fluid collection in the ventral canal at L4-5, L5 pars defects noted bilaterally. Epidural lipomatosis also present. - Xray lumbar flexion/extension xray shows bilateral L5 pars defects. Anterolisthesis of L5 on S1. Disc degeneration most significant at the L4-5 and L5-S1 levels. - The patient is not a great and it for epidural steroid injections due to epidural lipoma tosis in the lower lumbar spine. - Her low back pain may be due to bilateral pars defects at L5. There does not appear to be significant central canal stenosis on lumbar imaging however there does appear to be com pression of bilateral L5 nerve roots and possibly S1 nerve roots. - Patient is not a great surgical candidate at this time due to her diabetes as well as hi story of deep vein thrombosis and is on lifelong anticoagulation, currently taking Eliquis. Follow Up: to be done with Dr. Urbina. Patient would like to know surgeon's recommendations . Thank you for allowing us to see Sarahlorrie Reeves. Please call me at [phone] with any q uestions or concerns. Sincerely, Jose Covarrubias, [facility] Neurosurgery [facility] Note: I spent approximately 45 minutes in qocg-ci-ajso time of which greater than 50% was involved in counseling/coordination of care. Portions of this chart may have been created with voice recognition software. Occasional wr kirby-word or "sound-alike" substitutions may have occurred, even after review, due to the inh erent limitations of voice recognition software. Please read the chart carefully and recogni ze, using context, where these substitutions have occurred. Personal communication is smai gonzalez for any clarifications. CC: JAMEL JOHNSON in this encounter Plan of Treatment +--------+---------+ + + + | Date | Type | Specialty | Care Team | Description | +--------+---------+ + + + | 03/11/ | Office | Endocrinology | Jerman Bob, | | | 2018 | Visit | | MD Alberto [address] | | | | | | [place] | | | | | | [place] [address] | | | | | | [phone] | | | | | | | | +--------+---------+ + + + as of this encounter Visit Diagnoses + + | Diagnosis | + + | Pars defect of lumbar spine - Primary | + + | Acquired spondylolisthesis | + + | Degeneration of intervertebral disc of lumbar region | + + | Herniated lumbar intervertebral disc | + + | Displacement of lumbar intervertebral disc without myelopathy | + + | Neural foraminal stenosis of lumbar spine | + + | Spinal stenosis, lumbar region, without neurogenic claudication | + + | Lumbar facet arthropathy | + + | Lumbosacral spondylosis without myelopathy | + + | Epidural lipomatosis | + + | Lipoma of other specified sites | + +
--- OUTSIDE RECORDS SUMMARY | ~2019-02-03 | XMS | Encounter Summary ---
Demographics + + + | Address | [address] | | | [place] [address] | + + + | Home Phone | | + + + | Preferred Language | Unknown | + + + | Marital Status | | + + + | Spiritism Affiliation | Unknown | + + + | Race | Unknown | + + + | Ethnic Group | Unknown | + + + Author + + + | Author | [facility] [employer] | + + + | Organization | [facility] [employer] | + + + | Address [...] Team Providers + +------+ + | Care State Comptroller Name | Role | Phone | + +------+ + | Jamel Keyes | PCP | | + +------+ + Reason for Visit + + + | Reason | Comments | + + + | Follow-up | | + + + Encounter Details +--------+---------+ + + + | Date | Type | Department | Care Team | Description | +--------+---------+ + + + | 11/27/ | Office | [facility] | Jerman Bob, | Uncontrolled type 2 | | 2019 | Visit | Endocrinology [address] | diabetes mellitus | | | | [address] | [place] | with hyperglycemia, | | | | [place], [place] | [place] [address] | with long-term | | | | [address] | [phone] | current use of | | | | [phone] | | insulin (HCC) | | | | | | (Primary Dx); Pure | | | | | | hypercholesterolemia | | | | | | ; Hypertension with | | | | | | goal blood pressure | | | | | | less than 140/90 | +--------+---------+ + + + Social History [...] + + + + | Weight | 128.9 kg (284 lb 1.6 | 11/27/2018 1:22 PM PST | | | oz) | | + + + + | Height | - | - | + + + + | Body Mass Index | 48.77 | 11/27/2018 1:22 PM PST | + + + + in this encounter Instructions Patient Instructions - Jerman Bob MD - 11/27/2018 1:00 PM PSTContinue 72 units of T oujeo Take Novolog at meals per the following scale: BG under 70 No Novolog BG 71-100 18 units BG 101-150 25 units BG 151-200 28 units BG 201-250 31 units BG 251-300 34 units BG 301-350 37 units BG 351-400 40 units Please bring your meter and a record of your blood sugar readings with you to your next pattie ointment. We will plan on seeing you again in clinic in 3 months. Please call and let us know if blood sugar levels are frequently getting over 180 or if you are having problems with your blood sugar level going below 70. in this encounter Progress Notes Jerman Bob MD - 11/27/2018 1:00 PM PSTFormatting of this note may be different from the original. [facility] Endocrinology Return Visit CHIEF COMPLAINT: Diabetes HISTORY OF PRESENT ILLNESS Sarah Reeves is a 63 y.o. female who was last seen approximately 3 ago and is here to [facility] for treatment of her diabetes mellitus. This history was obtained from the patient as well as review of medical records. To summarize her records, she has past medical histo ry is significant for type 2 diabetes, gastroparesis, neuropathy, hyperlipidemia, uterine ca ncer, and hypertension. She has a thyroid nodule that was identified 2013 and was stable o n serial imaging. She was diagnosed with diabetes in . She is currently prescribed To ujeo and NovoLog as treatment for her diabetes. Since her last visit, she reports that she was hospitalized with a deep vein thrombosis. S he is now taking a blood thinner medications. She says that sugar control is been more erra tic ever since then. She is taking 72 units of glargine once a day. She is currently takin g 20 units of NovoLog with her meals. She brought in a record of her glucose readings. Thi s shows lows are in the 40s and highs are in the 400s. She says her appetite is not been ve ry robust though she is trying to force herself to eat. Episodes of hypoglycemia typically occurred when she takes the insulin but does not wind up eating very much. She continues to have low back pain worth nerve compression. FAMILY HISTORY Family History Problem Relation Age of Onset Diabetes type II Mother Cancer Mother Diabetes type II Maternal Grandmother Diabetes Other PAST MEDICAL/SURGICAL HISTORY Past Medical History Diagnosis Date Arthritis Asthma Deep vein thrombosis (DVT) (HCC) Diabetes mellitus, type 2 (HCC) GERD (gastroesophageal reflux disease) Hyperlipidemia Hypertension Kidney failure Pulmonary embolism (HCC) Stomach ulcer Thyroid nodule Past Surgical History Procedure Laterality Date CATARACT EXTRACTION Bilateral SECTION HERNIA REPAIR HYSTERECTOMY TONSILLECTOMY SOCIAL HISTORY Social History Social History Marital status: Spouse name: N/A Number of children: 2 Years of education: 12 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 Social History Main Topics Smoking status: Never Smoker Smokeless tobacco: Never Used Alcohol use No Drug use: No Sexual activity: Not on file Other Topics Concern Not on file Social History Narrative No narrative on file MEDICATIONS Current Outpatient Prescriptions: amoxicillin (AMOXIL) 500 MG [...] by mouth daily., Disp: , Rfl: Coenzyme R55-Goqxjbk E 100-150 MG-UNIT CAPS, Take 150 mg by mouth., Disp: , Rfl: doxycycline (MONODOX) 100 MG capsule, , Disp: , Rfl: fexofenadine (CARTER) 180 MG [...] mEq by mouth daily., Disp: , Rfl: promethazine (PHENERGAN) 25 MG tablet, Take 25 mg by mouth., Disp: , Rfl: sertraline (ZOLOFT) 100 MG tablet, Take 100 mg by mouth., Disp: , Rfl: silver sulfADIAZINE (SILVADENE) 1 % cream, Apply topically., Disp: , Rfl: simvastatin (ZOCOR) 10 MG tablet, Take 20 mg by mouth nightly., Disp: , Rfl: TOUJEO SOLOSTAR 300 UNIT/ML injection, Inject 75 Units into the skin nightly., Disp: 1 8 mL, Rfl: 3 VENTOLIN HFA 108 (90 BASE) MCG/ACT inhaler, , Disp: , Rfl: REVIEW OF SYSTEMS No fevers or chills. Breathing comfortably. Denies chest pain. No recent urinary changes. Otherwise, ROS was reviewed in detail with the patient and is as per HPI or negative. PHYSICAL EXAM BP 148/76 | Pulse 104 | Wt 128.9 kg (284 lb 1.6 oz) | SpO2 94% | BMI 48.77 kg/m Constitutional: alert and oriented, well groomed Eyes: anicteric, moist Ears, Nose, Mouth, Throat: thyroid contours normal Respiratory: unlabored Musculoskeletal: no peripheral edema Skin: normal temperature and texture DATA Labs dated October 22, 2018: A1c 10.8 Labs dated October 27, 2018: Sodium 139 Potassium 4.3 Chloride 105 Creatinine 1.04 Calcium 8.5 ASSESSMENT & PLAN Sarah Reeves is a pleasant 63 y.o. with type 2 diabetes mellitus, hypertension, hyperli pidemia, neuropathy and a thyroid nodule. 1. Diabetes: After reviewing her glucose readings, Vaseretic continue 72 units of glargin e once a day. She is given a modified scale for dosing NovoLog. She was advised that she s hould not take this unless it is accompanying a meal. The scales essentially based and 25 u nits for meals with a correction of 3:50 above target of 150 mg/dL. 2. Hypertension: Blood pressure was higher, though she's been out of lisinopril. She say s that she is going to pick some up today. 3. Hyperlipidemia: She was encouraged to continue taking simvastatin. 4. Neuropathy: This was not addressed today. Sarah has been a delightful patient to work with. Thank you for allowing me to participate in her care. I will plan on seeing her again in 3 months. If you have any questions, plea se do not hesitate to call. Jerman Bob MD 11/27/2018 *This report has been prepared using a voice recognition system. The report was reviewed fo r accuracy, however, sound-alike word errors, addition and/or deletions may occur. If there is any question about this report please contact me. in this encounter Plan of Treatment +--------+---------+ + + + | Date | Type | Specialty | Care Team | Description | +--------+---------+ + + + | 03/11/ | Office | Endocrinology | Jerman Bob, | | | 2018 | Visit | | MD Alberto [address] | | | | | | [place] | | | | | | [place] [address] | | | | | | [phone] | | | | | | | | +--------+---------+ + + + as of this encounter Visit Diagnoses + + | Diagnosis | + + | Uncontrolled type 2 diabetes mellitus with hyperglycemia, with long-term current use | | of insulin (HCC) - Primary | + + | Pure hypercholesterolemia | + + | Hypertension with goal blood pressure less than 140/90 | + +"
--- OUTSIDE RECORDS SUMMARY | ~2019-02-03 | XMS | Clinical Summary ---
Demographics + + + | Address | [address] | | | [place] [address] | + + + | Home Phone | | + + + | Preferred Language | Unknown | + + + | Marital Status | | + + + | [employer] Affiliation | Unknown | + + + | Race | Unknown | + + + | Ethnic Group | Unknown | + + + Author + + + | Author | [facility] [employer] | + + + | Organization | [facility] [employer] | + + + | Address [...] Team Providers + +------+ + | Care Assembly Line Driver Name | Role | Phone | + [...] | | | | Activ | | [id number] | mouth. | | | | [...] | | 2018 | Visit | | FISHERIES OFFICER | lumbar spine | | | | [...] | | 2019 | Encounter | | FISHERIES OFFICER | | +--------+ + + + + [...] [address] | | | | | | [place] [address] | | | | | | [phone] | | | | | | | [...] | + + + + + | [facility] | [address] | [place] [address] | | + + + + + [...] +------+-------+ + | MEDICARE | MEDICA | [id number] | | | [address] | | | RE | | | | [place] [address] | | | IP-OP | | | | | + +--------+ +------+-------+ + | - [employer] - | [employer] | [id number] | | | [address] [address] | | | A | | | | [place] | | | | | | | [address] | + +--------+ +------+-------+ + + +--------+ +--------+ + + | Guarantor Name | [employer] | Relation to | Date | Phone | Billing Address | | | t Type | Patient | of | | | | | | | | | | + +--------+ +--------+ + + | SARAH LINN | Person | Self [birth year] Home: | [address] | | | al/Fam | | 1955 | [phone] [place] [address] | | | craig | | | [phone] | | + +--------+ +--------+ + +
--- OUTSIDE RECORDS SUMMARY | ~2019-02-03 | XMS | Encounter Summary ---
Demographics + + + | Address | [address] | | | [place] [address] | + + + | Home Phone | | + + + | Preferred Language | Unknown | + + + | Marital Status | | + + + | Jehovah'S Witness Affiliation | Unknown | + + + | Race | Unknown | + + + | Ethnic Group | Unknown | + + + Author + + + | Author | [facility] | + + + | Organization | [facility] | + + + | Address [...] Team Providers + +------+ + | Care Tree Expert Name | Role | Phone | + [...] + + | 11/27/ | Office | [facility] | Jerman Bob, | Uncontrolled type 2 | | 2019 | Visit | Endocrinology [address] | [address] | diabetes mellitus | | | | [address] | [place] | with hyperglycemia, | | | | [place], [place] | [place] [address] | with long-term | | | | [address] | [phone] | current use of | | | | [phone] | | insulin (HCC) | | | [...] note may be different from the original. [facility] Endocrinology Return Visit CHIEF COMPLAINT: Diabetes HISTORY OF PRESENT ILLNESS Sarah Reeves is a 63 y.o. female who was last seen approximately 3 ago and is here to [facility] for treatment of her diabetes mellitus. This [...] by mouth daily., Disp: , Rfl: Coenzyme W61-Zmnsewc E 100-150 MG-UNIT CAPS, Take 150 mg [...] [place] | | | | | | [place] [address] | | | | | | [phone] | | | | | | | [...]
--- OUTSIDE RECORDS SUMMARY | ~2019-02-03 | XMS | Clinical Summary ---
Demographics + + + | Address | [address] | | | [place] [address] | + + + | Home Phone | | + + + | Preferred Language | Unknown | + + + | Marital Status | Single | + + + | Holiness Affiliation | NON | + + + [...] + | BALBINA OLGUIN | ECON | [place], [place] | | | | | [address] | | + + + + + | [place] | ECON | [address] | | | | | [place] | | | | | [address] | | + + + + + | Cherelle Rea | ECON | Unknown | | + + + + + Care Team Providers + +------+ + | Care Financial Professional Name | Role | Phone | + +------+ + | Jamel Keyes NP | PP | | + +------+ + Source Comments [facility] is fully live [facility] both [facility] and [facility] InPatient.[facility] Allergies No Known Allergies Current Medications + [...] + | ARDS (adult respiratory distress syndrome) ([facility]) | 02/18/2018 | + + + | Pneumonia due to human metapneumovirus (hMPV) | 02/18/2018 | + + + | Severe obesity (BMI >= 40) ([facility]) | 02/18/2018 | + + + | Encephalomyelitis, autoimmune | 02/18/2018 | + + + | SVT (supraventricular tachycardia) ([facility]) | 02/18/2018 | + + + [...] | re | [address] | [place] [address] | | | B | | | [...] | 5 | +- | [place] [address] | | | craig | | | [address] | | + +--------+ +--------+ + + | MARICRUZ LINN | [place] | Self | [birth year] | Home: | [address] | | | [place] | | 1954 | +- | [place] [address] | | | red | | | [address] | | + +--------+ +--------+ + +
--- OUTSIDE RECORDS SUMMARY | ~2019-02-03 | XMS | Encounter Summary ---
Demographics + + + | Address | [address] | | | [place] [address] | + + + | Home Phone | | + + + | Preferred Language | Unknown | + + + | Marital Status | | + + + | Congregational Affiliation | Unknown | + + + | Race | Unknown | + + + | Ethnic Group | Unknown | + + + Author + + + | Author | [facility] | + + + | Organization | [facility] | + + + | Address [...] Team Providers + +------+ + | Care Solar Installation Crew Supervisor Name | Role | Phone | + +------+ + | Jamel KeyesP | PCP | | + +------+ + Encounter Details +--------+ + + + + | Date | Type | Department | Care Team | Description | +--------+ + + + + | 11/18/ | Hospital | [facility] | Jose Covarrubias, | Pain | | 2019 | Encounter | [facility] | RIVET MACHINE OPERATOR [address] | | | | | Xray [address] | [address] Grier, | | | | | [address] | [place] [address] | | | | | [place] [address] | [phone] | | | | | [phone] | | | +--------+ + + + [...] | + + +---------+---------+ + + | amoxicillin | Take 500 mg by mouth | | | | | | (AMOXIL) 500 MG | 2 (two) times | | | | | | capsule | daily. | | | | | + + +---------+---------+ + + | apixaban (ELIQUIS) | Take 5 mg by mouth 2 | | | | | | 5 MG tablet | (two) times daily. | | | | | + + +---------+---------+ + + | | Inhale two | | | 07/31/20 | | | budesonide-formotero | inhalations by mouth | | | 16 | | | l (SYMBICORT) | twice daily | | | | | | 160-4.5 MCG/ACT | | | | | | | inhaler | | | | | | + + +---------+---------+ + + | Cholecalciferol | Take 1,000 Units by | | | | | | 1000 units capsule | mouth daily. | | | | | + + +---------+---------+ + + | Coenzyme | Take 150 mg by | | | | | | N89-Kyhptqk E | mouth. | | | | | | 100-150 MG-UNIT CAPS | | | | | | + + +---------+---------+ + + | doxycycline | | | | 07/19/20 | | | (MONODOX) 100 MG | | | | 16 | | | capsule | | | | | | + + +---------+---------+ + + | fexofenadine | Take 180 mg by mouth | | | | | | (CARTER) 180 MG | daily. | | | | | | tablet | | | | | | + + +---------+---------+ + + | FUROSEMIDE PO | Take 40 mg by mouth | | | | | | | daily. | | | | | + + +---------+---------+ + + | gabapentin | Take 300 mg by mouth | | | | | | (NEURONTIN) 300 MG | 3 (three) times | | | | | | capsule | daily. 1 cap AM and | | | | | | | 2 caps PM | | | | | + + +---------+---------+ + + | insulin aspart | Inject 30 Units into | 90 mL | 3 | 01/29/20 | | | (NOVOLOG) 100 | the skin 3 (three) | | | 18 | | | UNIT/ML injection | times daily before | | | | | | | meals. | | | | | + + +---------+---------+ + + | | Take 1 tablet by | | | | | | lisinopril-hydrochlo | mouth daily. | | | | | | rothiazide | | | | | | | (PRINZIDE,ZESTORETIC | | | | | | | ) 20-25 MG per | | | | | | | tablet | | | | | | + + +---------+---------+ + + | Melatonin 5 MG | Take 10 mg by mouth | | | | | | CAPS | nightly. | | | | | + + +---------+---------+ + + | omeprazole | Take 20 mg by mouth | | | | | | (PRILOSEC) 20 MG | every morning before | | | | | | capsule | breakfast. | | | | | + + +---------+---------+ + + | ondansetron | Take 4 mg by mouth 3 | | | | | | (ZOFRAN) 4 MG tablet | (three) times daily | | | | | | | as needed for | | | | | | | Nausea. | | | | | + + +---------+---------+ + + | Potassium | Take 10 mEq by mouth | | | | | | (POTASSIMIN PO) | daily. | | | | | + + +---------+---------+ + + | promethazine | Take 25 mg by mouth. | | | 07/24/20 | | | (PHENERGAN) 25 MG | | | | 16 | | | tablet | | | | | | + + +---------+---------+ + + | sertraline | Take 100 mg by | | | | | | (ZOLOFT) 100 MG | mouth. | | | | | | tablet | | | | | | + + +---------+---------+ + + | silver | Apply topically. | | | 07/24/20 | | | sulfADIAZINE | | | | 16 | | | (SILVADENE) 1 % | | | | | | | cream | | | | | | + + +---------+---------+ + + | simvastatin | Take 20 mg by mouth | | | | | | (ZOCOR) 10 MG tablet | nightly. | | | | | + + +---------+---------+ + + | TRACY FIELDS | Inject 75 Units into | 18 mL | 3 | 04/17/20 | | | 300 UNIT/ML | the skin nightly. | | | 18 | | | injection | | | | | | + + +---------+---------+ + + | JONOOLIN HFA 108 | | | | 06/28/20 | | | (90 BASE) MCG/ACT | | | | 16 | | | inhaler | | | | | | + [...] | | | | | [place] [address] | | | | | | [phone] | | | | | | | [...] section. | + +--------+ + + + in this encounter Results X-ray lumbar spine 4-5 views (11/18/2018 [...] Procedure Note | + + | Rj, Bo Results In - 11/18/2018 4:46 PM PST LUMBAR SPINE FOUR [...] | + + + + + | [facility] | [address] | [place] [address] | | + + + + + in this encounter Visit Diagnoses + + | Diagnosis | + + | Pain | + + | Generalized pain | + +"
--- OUTSIDE RECORDS SUMMARY | ~2019-02-03 | XMS | Encounter Summary ---
Demographics + + + | Address | [address] | | | [place] [address] | + + + | Home Phone | | + + + | Preferred Language | Unknown | + + + | Marital Status | | + + + | Advent Affiliation | Unknown | + + + | Race | Unknown | + + + | Ethnic Group | Unknown | + + + Author + + + | Author | [facility] | + + + | Organization | [facility] | + + + | Address [...] Team Providers + +------+ + | Care Cooker Loader Name | Role | Phone | + +------+ + | Jamel KeyesP | PCP | | + +------+ + Encounter Details +--------+ + + + + | Date | Type | Department | Care Team | Description | +--------+ + + + + | 11/18/ | Hospital | [facility] | Jose Covarrubias, | Pain | | 2019 | Encounter | [facility] | CLAMSHELL OPERATOR [address] | | | | | Xray [address] | [address] Grier, | | | | | [address] | [place] [address] | | | | | [place] [address] | [phone] | | | | | [phone] | | | +--------+ + + + [...] by | | | | | | [address] | mouth. | | | | [...] | | | | | [place] [address] | | | | | | [phone] | | | | | | | [...] | [address] | [place] [address] | | + + + + + in this encounter Visit Diagnoses + + | Diagnosis | + + | Pain | + + | Generalized pain | + +"
--- OUTSIDE RECORDS SUMMARY | ~2019-02-03 | XMS | Clinical Summary ---
Demographics + + + | Address | [address] | | | [place] [address] | + + + | Home Phone | | + + + | Preferred Language | Unknown | + + + | Marital Status | | + + + | Mandaen Affiliation | Unknown | + + + | Race | Unknown | + + + | Ethnic Group | Unknown | + + + Author + + + | Author | [facility] | | | and Kamleshana | + + + | Organization | [facility] | | | and Kamleshana [...] | | + + +---------+ + | Vna Linn | ECON | Unknown | | + + +---------+ + | Cherelle Rea | ECON | Unknown | | + + +---------+ + Care Team Providers + +------+ + | Care Collet Gluer Name | Role | Phone | + [...] the lungs every 4 | | | / | | e | | inhaler | hours as needed. | | | 16 | | | + + +---------+---------+------+------+-------+ | gabapentin | Take 300 mg by mouth | | | 07/13 | | Activ [...] puffs into | 1 | 11 | 08/12 | | Activ | | budesonide-formotero | [...] | | | + + +---------+---------+------+------+-------+ | latanoprost | Place 1 drop into | | | | | Activ | | (XALATAN) 0.005% | both eyes nightly. | | | | | e | | ophthalmic solution | | | | | | | + + +---------+---------+------+------+-------+ | brimonidine | Place 1 drop into | | | | | Activ | | (ALPHAGAN P) 0.15% | both eyes 2 times | | | | | e | | ophthalmic solution | daily. | | | | | | + + +---------+---------+------+------+-------+ | insulin lispro | Inject 6 Units under | | 0 | 12/1 | | Activ | | (HUMALOG KWIKPEN) | the skin 3 times | | | 6/20 | | e | | 100 units/mL | daily (with meals). | | | 18 | | | | injection (pen) | | | | | | | + + +---------+---------+------+------+-------+ | insulin lispro | Inject 0-18 Units [...] + + +---------+---------+------+------+-------+ | lisinopril | Take 0.5 tablets by | 30 | 0 | 12/1 | | Activ | | (PRINIVIL, ZESTRIL) | mouth Daily. | tablet | | 6/20 | | e | | 10 mg tablet | | | | 18 | | | + + +---------+---------+------+------+-------+ | insulin glargine | Inject 50 Units [...] + | Dvt femoral (deep venous thrombosis) (HCC) | 10/27/2018 | + + + | Hypoxia | 10/22/2018 | + + + | Insulin dependent diabetes mellitus (HCC) | 10/22/2018 | + + + | Other hyperlipidemia | 10/22/2018 | + + + | Class 3 severe obesity with body mass index (BMI) of 45.0 to 49.9 | 10/22/2018 | | in adult (HCC) | | + + + | Leukocytosis [...] + + + | Acute kidney injury (HCC) | 10/22/20 | | | | 18 [...] + + | 11/14/ | Ancillary | | Provider, | | | 2019 | Orders | | Historical, MD | | +--------+ + + + + [...] | + + + + | INFLUENZA, [id number], | 09/17/2009 | | | UNSPECIFIED | [...] | Body Mass Index | 49.87 | 10/27/2018422 PST | + + + + Plan [...] + + + + | Hemoglobin A1c Q3 | | 10/22/2018 | | | Months | 9 | | | + + [...] | Area | Manufacture | Device | Expira | Model | | | | | r | | tion | / | | | | | | Identi | Date | Serial | | | | | | fier | | / Lot | + +--------+--------+ +--------+--------+--------+ | Lens Tecnis Preloaded Pcb | Generi | Right: | JAGDEEP | | 07/12/ | [id number] | | 23.0 - [id number]: | c | Eye | MEDICAL | | 2020 | 0230 | | Qty: 1 on 08/14/2018 by | | | [employer] - | | | /[id number] | | Cristhian Lewis MD | | | JEVON | | | [id number] | | | | | | | | /N/A | + +--------+--------+ +--------+--------+--------+ | Brady Pacheco - | Generi | Right: | GLAUKOS - | | 06/11/ | [id number] | | [id number]: Qty: | c | Eye | GLAU | | 2021 | L | | 1 on 08/14/2018 by Joshua, | | | | | | /[id number] | | Cristhian Vasquez MD | | | | | | [id number] | | | | | | | [...] +--------+ +---------+ | MEDICARE | MEDICA | [id number] | Medica | [phone] | | | RE | | re | [phone] | | | | PART A | | | | | | | AND B | | | | | + +--------+ +--------+ +---------+ | | CHAMPV | [id number] | Indemn | [phone] | | | A | | [...] Self | [birth year] | Home: | [address] | | | al/Fam | | 1955 | [phone] | [place] [address] | | | craig | | | [address] | | + +--------+ +--------+ + +
--- OUTSIDE RECORDS SUMMARY | ~2019-02-03 | XMS | Encounter Summary ---
Demographics + + + | Address | [address] | | | [place] [address] | + + + | Home Phone | | + + + | Preferred Language | Unknown | + + + | Marital Status | | + + + | Mandaeism Affiliation | Unknown | + + + | Race | Unknown | + + + | Ethnic Group | Unknown | + + + Author + + + | Author | [facility] | + + + | Organization | [facility] | + + + | Address [...] Team Providers + +------+ + | Care Fabric Coating Supervisor Name | Role | Phone | [...] | | | | | Jamel R, ACCORDION TUNER | Neurosurgery | | | | | Radiculopath | [address] | [address] | | | | | y, lumbar | [address] | [address] | | | | | region | [place], | [place] | | | | | Other | [place] [address] | [place] | | | | | symptoms and | Phone: | [phone] | | | | | signs | [phone] | Phone: | | | | | involving | Fax: | [phone] | | | | | the | [phone] | Fax: | | | | | musculoskele | | [phone] | | | | | sayda system [...] + + | 02// | Office | [facility] | Leif Urbina MD | Spondylolisthesis of | | 2019 | Visit | [facility] | [address] | lumbar region | | | | [address] | Drive [place], [place] | (Primary Dx); Morbid | | | | [place] | [address] | obesity (HCC) | | | | [address] | | | | | | [phone] | | | +--------+---------+ + + + [...] Note: We spent approximately 25 minutes in oajr-zs-ztgt time of which greater than 50% was [...] [place] | | | | | | [place] [address] | | | | | | [phone] | | | | | | | | +--------+---------+ + + + as of this encounter Visit Diagnoses + + | Diagnosis | + + | Spondylolisthesis of lumbar region - Primary | + + | Acquired spondylolisthesis | + + | Morbid obesity (HCC) | + + | Morbid obesity | + +
--- OUTSIDE RECORDS SUMMARY | ~2019-02-03 | XMS | Encounter Summary ---
Demographics + + + | Address | [address] | | | [place] [address] | + + + | Home Phone | | + + + | Preferred Language | Unknown | + + + | Marital Status | | + + + | Sikh Affiliation | Unknown | + + + | Race | Unknown | + + + | Ethnic Group | Unknown | + + + Author + + + | Author | [facility] | + + + | Organization | [facility] | + + + | Address [...] Team Providers + +------+ + | Care Hollow Handle Knife Assembler Name | Role | Phone | + [...] | | | | | Jamel R, SENIOR COMMUNICATIONS SPECIALIST | Neurosurgery | | | | | Radiculopath | [address] | [address] | | | | | y, lumbar | [address] | [address] | | | | | region | [place], | [place] | | | | | Other | [place] [address] | [place], [place] | | | | | symptoms and | Phone: | [phone] | | | | | signs | [phone] | Phone: | | | | | involving | Fax: | [phone] | | | | | the | [phone] | Fax: | | | | | musculoskele | | [phone] | | | | | sayda system [...] + + | 11/18/ | Office | [facility] | Jose Covarrubias, | Pars defect of | | 2019 | Visit | [facility] | PASSENGER CAR INSPECTOR [address] | lumbar spine | | | | [address] | [address] Grier, | (Primary Dx); | | | | [place], [place] | [place] [address] | 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 Please call me at [phone] with any q uestions or concerns. Sincerely, Jose Covarrubias, [facility] Neurosurgery [facility] Note: I spent approximately 45 minutes in jnuo-ei-hffc time of which greater than 50% was [...] these substitutions have occurred. Personal communication is sami gonzalez for any clarifications. CC: JAMEL JOHNSON [...] [place] | | | | | | [place] [address] | | | | | | [phone] | | | | | | | [...]
[~2019-02-03 12:47] MED LIST changes: +ONDANSETRON ODT8 MG PO; +PHENERGAN25 MG PR
--- OUTSIDE RECORDS SUMMARY | 2019-02-03 12:50 | XMS ---
PreManage Notification: [place] Security Legal Recovery Specialist Events No recent Security Events currently on file CRITERIA MET - Group Notification - [facility] CARE PROVIDERS Andreea Farmer Squaring Shear Operator/Deburr Technician 12/19/2018-Current PHONE: [phone] KATHLEEN JOHNSON Nurse Practitioner: Family 07/04/2018-Current PHONE: Unknown Justin Molina Squaring Shear Operator/Deburr Technician 12/19/2018-Current PHONE: [phone] Justin Molina Primary Care 12/19/2018-Current PHONE: [phone] Maria Del Rosario has no Care Guidelines for this patient. Care History Medical/Surgical 10/22/2018 [facility] - Patient is currently established with [facility]. If patient is seen in the ED during business hours. Please contact [facility] at [facility]. Care Recommendation: This patient has had 5 or more Emergency Department visits in the last 12 months.\T\nbsp; Patient requires education on the scope and purpose of the ED as an acute care provider not a Primary Care Provider and should not be utilized for chronic conditions.\T\nbsp; These are guidelines and the provider should exercise clinical judgment when providing care. E.D. VISIT COUNT (12 MO.) 7 [facility]. TOTAL 7 NOTE: Visits indicate total known visits. ED/UCC VISIT TRACKING (12 MO.) 02/03/2019 12:48 [facility] [place] TYPE: Emergency COMPLAINT: - R HIP/BACK PAIN 10/21/2018 21:06 [facility] [place] TYPE: Emergency COMPLAINT: - SHORTNESS OF BREATH DIAGNOSES: - Essential (primary) hypertension - Shortness of breath - Non-ST elevation (NSTEMI) myocardial infarction - Obesity, unspecified - Major depressive disorder, single episode, unspecified - Dyspnea, unspecified - Other retirement (current) drug therapy - Type 2 diabetes mellitus with hyperglycemia - Unspecified asthma, uncomplicated - Allergy status to other drugs, medicaments and biological substances status - Pure hypercholesterolemia, unspecified 06/24/2018 10:01 [facility] [place] TYPE: Emergency COMPLAINT: - VOMITING DIAGNOSES: - Type 2 diabetes mellitus with diabetic autonomic (poly)neuropathy - Gastroparesis - Obesity, unspecified - Essential (primary) hypertension - Other retirement (current) drug therapy - Pure hypercholesterolemia, unspecified - Major depressive disorder, single episode, unspecified - ornamental iron worker helper (current) use of insulin - Nausea with vomiting, unspecified 05/11/2018 11:15 [facility] [place] TYPE: Emergency COMPLAINT: - FALL DIAGNOSES: - Type 2 diabetes mellitus with diabetic autonomic (poly)neuropathy - Other intervention nurse (current) drug therapy - Pure hypercholesterolemia, unspecified - ornamental iron worker helper (current) use of aspirin - Allergy status to other drugs, medicaments and biological substances status - Essential (primary) hypertension - Fall on same level, unspecified, initial encounter - PURE HYPERCHOLESTEROLEMIA, UNSPECIFIED - Headache - Unspecified asthma, uncomplicated - ornamental iron worker helper (current) use of insulin - Major depressive disorder, single episode, unspecified - [facility] (current) use of inhaled steroids - Gastroparesis 03/19/2018 16:20 [facility] [place] TYPE: Emergency COMPLAINT: - WEAKNESS DIAGNOSES: - Obesity, unspecified - ornamental iron worker helper (current) use of insulin - Type 2 diabetes mellitus without complications - Allergy status to other drugs, medicaments and biological substances status - Other retirement (current) drug therapy - Noninfective gastroenteritis and colitis, unspecified - Essential (primary) hypertension - Vomiting, unspecified 02/08/2018 07:01 [facility] [place] TYPE: Emergency COMPLAINT: - SOB/NAUSEA/VOMITING 02/07/2018 04:50 [facility] [place] TYPE: Emergency COMPLAINT: - HEADACHE,COUGH,VOMITING DIAGNOSES: - Allergy status to other drugs, medicaments and biological substances status - PURE HYPERCHOLESTEROLEMIA, UNSPECIFIED - Type 2 diabetes mellitus with diabetic autonomic (poly)neuropathy - Obesity, unspecified - Headache - Other intervention nurse (current) drug therapy - Influenza due to unidentified influenza virus with other respiratory manifestations - ornamental iron worker helper (current) use of insulin - Major depressive disorder, single episode, unspecified - Essential (primary) hypertension - Gastroparesis - Unspecified asthma, uncomplicated INPATIENT VISIT TRACKING (12 MO.) [facility] DIAGNOSES: - Hypoxemia - Acute kidney failure, unspecified - Elevated white blood cell count, unspecified - Dependence on other enabling machines and devices - Type 2 diabetes mellitus without complications - Hyperkalemia - Moderate persistent asthma, uncomplicated - Obstructive sleep apnea (adult) (pediatric) - NSTEMI - Morbid (severe) obesity due to excess calories - ornamental iron worker helper (current) use of insulin - Other hyperlipidemia - Abnormal levels of other serum enzymes - Acute embolism and thrombosis of unspecified deep veins of unspecified proximal lower extremity - Body mass index (BMI) 45.0-49.9, adult 02/11/2018 00:12 [facility] TYPE: Internal Medicine DIAGNOSES: [address]. Pneumonia, unspecified organism [id number]. Other encephalitis and encephalomyelitis [email or web address]
[2019-02-03] MEDS ORDERED: CYCLOBENZAPRINE10 MG PO (14:10)
[2019-02-03] MEDS ORDERED: METHYLPREDNISOLO4 M1 PO (14:12)
== END 2019-02-03 14:30 | disposition home or self-care (01) ==
LOC: ED 12:47
DX: M54.41 Lumbago with sciatica, right side (principal); E11.9 Type 2 diabetes mellitus without complications; E78.00 Pure hypercholesterolemia, unspecified; I10 Essential (primary) hypertension; F32.9 Major depressive disorder, single episode, unspecified; G47.30 Sleep apnea, unspecified; J45.909 Unspecified asthma, uncomplicated; E66.9 Obesity, unspecified; Z90.710 Acquired absence of both cervix and uterus; Z88.8 Allergy status to other drugs, medicaments and biological substances; Z79.4 Long term (current) use of insulin; Z79.899 Other long term (current) drug therapy
CPT/HCPCS: 99283

== ENCOUNTER 2019-04-06 21:24 | Emergency (ER) | payer MEDICARE, OTHER ==
[~2019-04-06] VITALS: Ht 160 cm; Wt 127.5 kg
--- OUTSIDE RECORDS SUMMARY | ~2019-04-06 | XMS | Encounter Summary ---
Demographics + + + | Address | [address] | | | [place] [address] | + + + | Home Phone | | + + + | Preferred Language | Unknown | + + + | Marital Status | Single | + + + | Druze Affiliation | NON | + + + | Race | White | + + + | Ethnic Group | Not or | + + + Author + + + | Author | [facility] | + + + | Organization | [facility] | + + + | Address | Unknown | + + + | Phone | Unavailable | + + + Support + + + + + | Name | Relationship | Address | Phone | + + + + + | Caroline Gil | ECON | [place], [place] | | | | | [address] | | + + + + + | Van Reeves | ECON | [address] | | | | | [place] | | | | | [address] | | + + + + + | Cherelle Rea | ECON | Unknown | | + + + + + Care Team Providers + +------+ + | Care Spice Grinder Name | Role | Phone | + +------+ + PCP | Unavailable | + +------+ + Encounter Details +--------+ + + + + | Date | Type | Department | Care Team | Description | +--------+ + + + + | 05/17/ | Results | Registration [id number] | | | | 1994 | Only | [address] | | | | | | [facility] Mailcode: | | | | | | [id number] [place], [place] | | | | | | [address] | | | | | | [phone] | | | +--------+ + + + + Social History + +-------+ +--------+------+ | Tobacco Use | Types | Packs/Day | Years | Date | | | | | Used | | + +-------+ +--------+------+ | Never Assessed | | | | | + +-------+ +--------+------+ + + + | Sex Assigned at | Date Recorded | | | | + + + | Not on file | | + + + + + + + | Job Start Date | Occupation | Industry | + + + + | Not on file | Not on file | Not on file | + + + + + + + + | Travel History | Travel Start | Travel End | + + + + + + | No recent travel history available. | + + documented as of this encounter Plan of Treatment Not on filedocumented as of this encounter Procedures + +--------+ + + + | Procedure Name | Priori | Date/Time | Associated Diagnosis | Comments | | | ty | | | | + +--------+ + + + | CBC TESTS 2 | Routin | 07/09/1995 | | Results for this | | | e | 4:13 PM | | procedure are in the | | | | PDT | | results section. | + +--------+ + + + | CHEMISTRY TESTS 4 | Routin | 07/05/1995 | | Results for this | | | e | 2:40 PM | | procedure are in the | | | | PDT | | results section. | + +--------+ + + + | CBC TESTS 2 | Routin | 07/05/1995 | | Results for this | | | e | 2:40 PM | | procedure are in the | | | | PDT | | results section. | + +--------+ + + + | CHEMISTRY TESTS 2 | Routin | 07/05/1995 | | Results for this | | | e | 2:40 PM | | procedure are in the | | | | PDT | | results section. | + +--------+ + + + | CHEMISTRY TESTS 4 | Routin | 06/28/1995 | | Results for this | | | e | 12:31 PM | | procedure are in the | | | | PDT | | results section. | + +--------+ + + + | CBC TESTS 2 | Routin | 06/28/1995 | | Results for this | | | e | 12:31 PM | | procedure are in the | | | | PDT | | results section. | + +--------+ + + + | CHEMISTRY TESTS 2 | Routin | 06/28/1995 | | Results for this | | | e | 12:31 PM | | procedure are in the | | | | PDT | | results section. | + +--------+ + + + | CHEMISTRY TESTS 4 | Routin | 05/17/1995 | | Results for this | | | e | 3:39 PM | | procedure are in the | | | | PDT | | results section. | + +--------+ + + + | CHEMISTRY TESTS 2 | Routin | 05/17/1995 | | Results for this | | | e | 3:39 PM | | procedure are in the | | | | PDT | | results section. | + +--------+ + + + | MISCELLANEOUS | Routin | 05/17/1995 | | Results for this | | CHEMISTRY TESTS | e | 3:39 PM | | procedure are in the | | | | PDT | | results section. | + +--------+ + + + documented in this encounter Results CBC TESTS 2 (07/09/1995 4:13 PM PDT) + + + + + + | Component | Value | Ref Range | Performed | Pathologist | | | | | At | Signature | + + + + + + | WHITE CELL | 9.6 | K/CU MM | | | | COUNT | | | | | + + + + + + | RED CELL | 4.97 | M/CU MM | | | | COUNT | | | | | + + + + + + | HEMOGLOBIN | 14.4 | GM/DL | | | + + + + + + | HEMATOCRIT | 42.3 | % | | | + + + + + + | MCV | 84.9 (L) | FL | | | + + + + + + | MCH | 28.9 (L) | PG | | | + + + + + + | MCHC | 34. (H) | GM/DL | | | + + + + + + | RDW | 13.6 | % | | | + + + + + + | PLATELET | 284. | K/CU MM | | | | COUNT | | | | | + + + + + + | MPV | 7.3 (L) | FL | | | + + + + + + + + | Specimen | + + | | + + + + + + + | Performing | Address | City/State/Zipcode | Phone Number | | Organization | | | | + + + + + | [facility] | [address] | [place] [address] | | | PATHOLOGY | [address] | | | + + + + + CHEMISTRY TESTS 2 (07/05/1995 2:40 PM PDT) + + + + + + | Component | Value | Ref Range | Performed | Pathologist | | | | | At | Signature | + + + + + + | CHOLESTEROL | 200. | mg/dL | | | | (LAB) | | | | | + + + + + + + + | Specimen | + + | | + + + + + + + | Performing | Address | City/State/Zipcode | Phone Number | | Organization | | | | + + + + + | [facility] | [address] | [place] [address] | | | PATHOLOGY | [address] | | | + + + + + CHEMISTRY TESTS 4 (07/05/1995 2:40 PM PDT) + + + + + + | Component | Value | Ref Range | Performed | Pathologist | | | | | At | Signature | + + + + + + | SODIUM, | 138. | mmol/l | | | | PLASMA | | | | | | (LAB) | | | | | + + + + + + | POTASSIUM, | 4.1 | mmol/l | | | | PLASMA | | | | | | (LAB) | | | | | + + + + + + | CHLORIDE, | 101. | mmol/l | | | | PLASMA | | | | | | (LAB) | | | | | + + + + + + | TOTAL CO2, | 27. | mmol/l | | | | PLASMA | | | | | | (LAB) | | | | | + + + + + + | BUN, PLASMA | 15. | mg/dL | | | | (LAB) | | | | | + + + + + + | CREATININE | 1.1 | mg/dL | | | | PLASMA | | | | | | (LAB) | | | | | + + + + + + | GLUCOSE, | 163. (H) | mg/dL | | | | PLASMA | | | | | | (LAB) | | | | | + + + + + + | CALCIUM, | 9.1 | mg/dL | | | | PLASMA | | | | | | (LAB) | | | | | + + + + + + | MAGNESIUM,P | 2. | mg/dL | | | | LASMA | | | | | + + + + + + | PHOSPHORUS, | 2.4 | mg/dL | | | | PLASMA | | | | | | (LAB) | | | | | + + + + + + | URIC ACID, | 6.3 (H) | mg/dL | | | | PLASMA | | | | | | (LAB) | | | | | + + + + + + | AST(SGOT) | 21. | U/L | | | + + + + + + | ALT (SGPT) | 31. (H) | U/L | | | + + + + + + | ALK PHOS | 73. | U/L | | | + + + + + + | LD TOTAL, | 179. | U/L | | | | PLASMA | | | | | + + + + + + | BILIRUBIN | 0.1 | mg/dL | | | | DIRECT | | | | | + + + + + + | BILIRUBIN | 1.1 | mg/dL | | | | TOTAL | | | | | + + + + + + | TOTAL | 7.3 | GM/DL | | | | PROTEIN, | | | | | | PLASMA | | | | | | (LAB) | | | | | + + + + + + | ALBUMIN, | 4.4 | GM/DL | | | | PLASMA | | | | | | (LAB) | | | | | + + + + + + | AMYLASE,ROBIN | 32. | U/L | | | | SMA | | | | | + + + + + + + + | Specimen | + + | | + + + + + + + | Performing | Address | City/State/Zipcode | Phone Number | | Organization | | | | + + + + + | [facility] | [address] | [place] [address] | | | PATHOLOGY | [address] | | | + + + + + CBC TESTS 2 (07/05/1995 2:40 PM PDT) + + + + + + | Component | Value | Ref Range | Performed | Pathologist | | | | | At | Signature | + + + + + + | WHITE CELL | 13.8 (H) | K/CU MM | | | | COUNT | | | | | + + + + + + | RED CELL | 5.69 (H) | M/CU MM | | | | COUNT | | | | | + + + + + + | HEMOGLOBIN | 16.1 (H) | GM/DL | | | + + + + + + | HEMATOCRIT | 48.2 (H) | % | | | + + + + + + | MCV | 84.6 (L) | FL | | | + + + + + + | MCH | 28.3 (L) | PG | | | + + + + + + | MCHC | 33.4 | GM/DL | | | + + + + + + | RDW | 13.6 | % | | | + + + + + + | PLATELET | 276. | K/CU MM | | | | COUNT | | | | | + + + + + + | MPV | 7.2 (L) | FL | | | + + + + + + | NEUTROPHIL | 81. (H) | % | | | | % | | | | | + + + + + + | NEUTROPHIL | FINAL DIFF, SMEAR | % | | | | % | REVIEWED (H) | | | | + + + + + + | LYMPHOCYTE | 14. (L) | % | | | | % | | | | | + + + + + + | MONOCYTE % | 4. | % | | | + + + + + + | EOS % | 1. | % | | | + + + + + + | BASO % | 0. | % | | | + + + + + + | NEUTROPHIL | 11.2 (H) | K/CU MM | | | | # | | | | | + + + + + + | LYMPHOCYTE | 1.9 | K/CU MM | | | | # | | | | | + + + + + + | MONOCYTE # | 0.6 | K/CU MM | | | + + + + + + | EOS # | 0.1 | K/CU MM | | | + + + + + + | BASO # | 0. | K/CU MM | | | + + + + + + + + | Specimen | + + | | + + + + + + + | Performing | Address | City/State/Zipcode | Phone Number | | Organization | | | | + + + + + | [facility] | [address] | [place] [address] | | | PATHOLOGY | [address] | | | + + + + + CHEMISTRY TESTS 2 (06/28/1995 12:31 PM PDT) + + + + + + | Component | Value | Ref Range | Performed | Pathologist | | | | | At | Signature | + + + + + + | CHOLESTEROL | 231. (H) | mg/dL | | | | (LAB) | | | | | + + + + + + + + | Specimen | + + | | + + + + + + + | Performing | Address | City/State/Zipcode | Phone Number | | Organization | | | | + + + + + | [facility] | [address] | [place] [address] | | | PATHOLOGY | [address] | | | + + + + + CHEMISTRY TESTS 4 (06/28/1995 12:31 PM PDT) + + + + + + | Component | Value | Ref Range | Performed | Pathologist | | | | | At | Signature | + + + + + + | SODIUM, | 138. | mmol/l | | | | PLASMA | | | | | | (LAB) | | | | | + + + + + + | POTASSIUM, | 5.1 (H) | mmol/l | | | | PLASMA | | | | | | (LAB) | | | | | + + + + + + | CHLORIDE, | 101. | mmol/l | | | | PLASMA | | | | | | (LAB) | | | | | + + + + + + | TOTAL CO2, | 29. | mmol/l | | | | PLASMA | | | | | | (LAB) | | | | | + + + + + + | BUN, PLASMA | 12. | mg/dL | | | | (LAB) | | | | | + + + + + + | CREATININE | 1. | mg/dL | | | | PLASMA | | | | | | (LAB) | | | | | + + + + + + | GLUCOSE, | 230. (H) | mg/dL | | | | PLASMA | | | | | | (LAB) | | | | | + + + + + + | CALCIUM, | 9.2 | mg/dL | | | | PLASMA | | | | | | (LAB) | | | | | + + + + + + | MAGNESIUM,P | 2.2 | mg/dL | | | | LASMA | | | | | + + + + + + | PHOSPHORUS, | 2.4 | mg/dL | | | | PLASMA | | | | | | (LAB) | | | | | + + + + + + | URIC ACID, | 4.9 | mg/dL | | | | PLASMA | | | | | | (LAB) | | | | | + + + + + + | AST(SGOT) | 26. | U/L | | | + + + + + + | ALT (SGPT) | 33. (H) | U/L | | | + + + + + + | ALK PHOS | 74. | U/L | | | + + + + + + | LD TOTAL, | 212. (H) | U/L | | | | PLASMA | | | | | + + + + + + | BILIRUBIN | 0.1 | mg/dL | | | | DIRECT | | | | | + + + + + + | BILIRUBIN | 0.6 | mg/dL | | | | TOTAL | | | | | + + + + + + | TOTAL | 7.5 | GM/DL | | | | PROTEIN, | | | | | | PLASMA | | | | | | (LAB) | | | | | + + + + + + | ALBUMIN, | 4.3 | GM/DL | | | | PLASMA | | | | | | (LAB) | | | | | + + + + + + + + | Specimen | + + | | + + + + + + + | Performing | Address | City/State/Zipcode | Phone Number | | Organization | | | | + + + + + | [facility] | [address] | [place] [address] | | | PATHOLOGY | [address] | | | + + + + + CBC TESTS 2 (06/28/1995 12:31 PM PDT) + + + + + + | Component | Value | Ref Range | Performed | Pathologist | | | | | At | Signature | + + + + + + | WHITE CELL | 8.5 | K/CU MM | | | | COUNT | | | | | + + + + + + | RED CELL | 5.42 (H) | M/CU MM | | | | COUNT | | | | | + + + + + + | HEMOGLOBIN | 15.6 (H) | GM/DL | | | + + + + + + | HEMATOCRIT | 45.8 | % | | | + + + + + + | MCV | 84.4 (L) | FL | | | + + + + + + | MCH | 28.7 (L) | PG | | | + + + + + + | MCHC | 34. (H) | GM/DL | | | + + + + + + | RDW | 13.7 | % | | | + + + + + + | PLATELET | 252. | K/CU MM | | | | COUNT | | | | | + + + + + + | MPV | 7.3 (L) | FL | | | + + + + + + + + | Specimen | + + | | + + + + + + + | Performing | Address | City/State/Zipcode | Phone Number | | Organization | | | | + + + + + | [facility] | [address] | [place] [address] | | | PATHOLOGY | [address] | | | + + + + + CHEMISTRY TESTS 2 (05/17/1995 3:39 PM PDT) + + + + + + | Component | Value | Ref Range | Performed | Pathologist | | | | | At | Signature | + + + + + + | CHOLESTEROL | 218. (H) | mg/dL | | | | (LAB) | | | | | + + + + + + + + | Specimen | + + | | + + + + + + + | Performing | Address | City/State/Zipcode | Phone Number | | Organization | | | | + + + + + | [facility] | [address] | [place], [place] [address] | | | PATHOLOGY | [address] | | | + + + + + CHEMISTRY TESTS 4 (05/17/1995 3:39 PM PDT) + + + + + + | Component | Value | Ref Range | Performed | Pathologist | | | | | At | Signature | + + + + + + | SODIUM, | 139. | mmol/l | | | | PLASMA | | | | | | (LAB) | | | | | + + + + + + | POTASSIUM, | 4.5 | mmol/l | | | | PLASMA | | | | | | (LAB) | | | | | + + + + + + | CHLORIDE, | 99. | mmol/l | | | | PLASMA | | | | | | (LAB) | | | | | + + + + + + | TOTAL CO2, | 28. | mmol/l | | | | PLASMA | | | | | | (LAB) | | | | | + + + + + + | BUN, PLASMA | 15. | mg/dL | | | | (LAB) | | | | | + + + + + + | CREATININE | 1. | mg/dL | | | | PLASMA | | | | | | (LAB) | | | | | + + + + + + | GLUCOSE, | 178. (H) | mg/dL | | | | PLASMA | | | | | | (LAB) | | | | | + + + + + + | CALCIUM, | 10.4 | mg/dL | | | | PLASMA | | | | | | (LAB) | | | | | + + + + + + | MAGNESIUM,P | 2.1 | mg/dL | | | | LASMA | | | | | + + + + + + | PHOSPHORUS, | 3.3 | mg/dL | | | | PLASMA | | | | | | (LAB) | | | | | + + + + + + | URIC ACID, | 4.6 | mg/dL | | | | PLASMA | | | | | | (LAB) | | | | | + + + + + + | AST(SGOT) | 19. | U/L | | | + + + + + + | ALT (SGPT) | 29. | U/L | | | + + + + + + | ALK PHOS | 71. | U/L | | | + + + + + + | LD TOTAL, | 181. | U/L | | | | PLASMA | | | | | + + + + + + | BILIRUBIN | 0.1 | mg/dL | | | | DIRECT | | | | | + + + + + + | BILIRUBIN | 0.5 | mg/dL | | | | TOTAL | | | | | + + + + + + | TOTAL | 7.7 | GM/DL | | | | PROTEIN, | | | | | | PLASMA | | | | | | (LAB) | | | | | + + + + + + | ALBUMIN, | 4.7 | GM/DL | | | | PLASMA | | | | | | (LAB) | | | | | + + + + + + + + | Specimen | + + | | + + + + + + + | Performing | Address | City/State/Zipcode | Phone Number | | Organization | | | | + + + + + | [facility] | [address] | [place] [address] | | | PATHOLOGY | [address] | | | + + + + + MISCELLANEOUS CHEMISTRY TESTS (05/17/1995 3:39 PM PDT) + + + + + + | Component | Value | Ref Range | Performed | Pathologist | | | | | At | Signature | + + + + + + | TSH | 1.6 | mIU/ML | | | + + + + + + + + | Specimen | + + | | + + + + + + + | Performing | Address | City/State/Zipcode | Phone Number | | Organization | | | | + + + + + | [facility] | [address] | [place] [address] | | | PATHOLOGY | [address] | | | + + + + + documented in this encounter Visit Diagnoses Not on filedocumented in this encounter"
--- OUTSIDE RECORDS SUMMARY | ~2019-04-06 | XMS | Encounter Summary ---
Demographics + + + | Address | [address] | | | [place] [address] | + + + | Home Phone | | + + + | Preferred Language | Unknown | + + + | Marital Status | Single | + + + | Jewish Affiliation | NON | + + + | Race | White | + + + | Ethnic Group | Not or | + + + Author + + + | Organization | Unknown | + + + | Address | Unknown | + + + | Phone | Unavailable | + + + Support + + + + + | Name | Relationship | Address | Phone | + + + + + | aCroline Gil | ECON | [place], [place] | | | | | [address] | | + + + + + | Van Reeves | ECON | [address] | | | | | [place] | | | | | [address] | | + + + + + | Cherelle [place] | ECON | Unknown | | + + + + + Care Team Providers + +------+ + | Care Hotel Or Motel Room Service Supervisor Name | Role | Phone | + +------+ + PCP | Unavailable | + +------+ + Encounter Details +--------+ + + + + | Date | Type | Department | Care Team | Description | +--------+ + + + + | 12/12/ | Results | | Other, Faculty | | | 1993 | Only | | [phone] | | +--------+ + + + + [...] | + +--------+ + + + | X-RAY CHEST 2 VIEW | Routin | 12/12/1993 | | Results for this | | | e | 3:40 PM | | procedure are in the | | | | PST | | results section. | + +--------+ + + + | ARCHIVE CYTOLOGY | Routin | 12/12/1993 | | Results for this | | | e | | | procedure are in the | | | | | | results section. | + +--------+ + + + documented in this encounter Results CHEST 2 VIEW (12/12/1993 3:40 PM PST) + + + + + + | Component | Value | Ref Range | Performed | Pathologist | | | | | At | Signature | + + + + + + | CHEST, 2 | Radiologist 1: [place], | | | | | VIEWS [place] | MARIAJOSE HAYES, | | | | | STEREO | | | | | | | MARICRUZ | | | | | | | | | | | | | | | | | | [phone] [place], [place] | | | | | | AND LATERAL | | | | | | VIEWS: 12-12-93 AT | | | | | | 1540 | | | | | | HOURS | | | | | | | | | | | | | | | | | | Dictated: 12-13-93 at | | | | | | 1200 Comparison is made | | | | | | with films from 05-04-93. | | | | | | FINDINGS: The | | | | | | cardiomediastinal | | | | | | silhouette is unchanged. | | | | | | The lungs remain | | | | | | grossly clear. No | | | | | | significant effusion is | | | | | | present. IMPRESSION: No | | | | | | radiographic evidence | | | | | | of acute cardiopulmonary | | | | | | | | | | | | disease. Nosignifican | | | | | | t change relative to | | | | | | films from 04-30-93. END | | | | | | OF IMPRESSION: | | | | + + + + + + + + | Specimen | + + | | + + + + + | Narrative | Performed At | + + + | Ordered by MODESTA FERNANDEZ M.D. | | + + + + +---------+ + + | Performing | Address | City/State/Zipcode | Phone Number | | Organization | | | | + +---------+ + + | [facility] | | | | | RADIOLOGY | | | | + +---------+ + + ARCHIVE CYTOLOGY (12/12/1993) + + + + + + | Component | Value | Ref Range | Performed | Pathologist | | | | | At | Signature | + + + + + + | ARCHIVE | SOURCE OF SPECIMEN: SEE | | [facility] | | | CYTOLOGY | RESULTS | | DEPARTMENT | | | | Preliminary | | OF | | | | History:GYNECOLOGIC | | PATHOLOGY | | | | CYTOLOGY | | | | | | : | | | | | | 3 Para: | | | | | | 2 Abortus: | | | | | | 1 Last Menstrual | | | | | | Period: N/A | | | | | | Hormonal | | | | | | Therapy: Not | | | | | | given No | | | | | | therapy Replacement | | | | | | therapy Defect | | | | | | therapy Oral | | | | | | contraceptives | | | | | | Reason For Pap | | | | | | Smear: Not | | | | | | given Routine Foll | | | | | | ow-up | | | | | | xx Previous | | | | | | abnormal | | | | | | FINAL | | | | | | CYTOLOGY | | | | | | INTERPRETATION | | | | | | CERVICAL/VAGINAL SMEAR | | | | | | WITH: NO | | | | | | MALIGNANT CELLS | | | | | | IDENTIFIED LACTOBACIL | | | | | | ELSA ENDOCERVICAL | | | | | | CELLS ABSENT My | | | | | | electronic signature | | | | | | indicates that I have | | | | | | personally reviewed | | | | | | alldiagnostic slides, | | | | | | the gross and/or | | | | | | microscopic portion of | | | | | | thisreport and | | | | | | formulated the final | | | | | | diagnosis. | | | | + + + + + + + + | Specimen | + + | Other | + + + + + + + | Performing | Address | City/State/Zipcode | Phone Number | | Organization | | | | + + + + + | [facility] | [address] | [place] [address] | | | PATHOLOGY | [address] | | | + + + + + documented in this encounter Visit Diagnoses Not on filedocumented in this encounter"
--- OUTSIDE RECORDS SUMMARY | ~2019-04-06 | XMS | Encounter Summary ---
Demographics + + + | Address | [address] | | | [place] [address] | + + + | Home Phone | | + + + | Preferred Language | Unknown | + + + | Marital Status | Single | + + + | Buddhism Affiliation | NON | + + + | Race | White | + + + | Ethnic Group | Not or | + + + Author + + + | Author | [facility] | + + + | Organization | [facility] | + + + | Address | Unknown | + + + | Phone | Unavailable | + + + Support + + + + + | Name | Relationship | Address | Phone | + + + + + | Caroline iGl | ECON | [place], [place] | | | | | [address] | | + + + + + | Van Reeves | ECON | [address] | | | | | [place] | | | | | [address] | | + + + + + | Cherelle Rea | ECON | Unknown | | + + + + + Care Team Providers + +------+ + | Care Window Cutter Name | Role | Phone | + +------+ + PCP | Unavailable | + +------+ + Encounter Details +--------+ + + + + | Date | Type | Department | Care Team | Description | +--------+ + + + + | 06/28/ | Office | General Internal | Note, Outpatient | Progress Note | | 1994 | Visit-Trans | Medicine [address] | Clinic | | | | cribed | [facility] | | | | | | Road Mailcode: [address] | | | | | | Outpatient Clinic | | | | | | [facility] | | | | | | [place], [place] | | | | | | [address] | | | | | | [phone] | | | +--------+ + + + [...] + + documented as of this encounter Progress Notes Interface, Aircraft Instrument Repairer In - 02/22/2007 5:01 AM PDT CLINIC DATE: 06/28/95 GENERAL MEDICINE CLINIC: Ms. Cuevas comes in today complaining of about two weeks of epigastric pain, which is exacerbated by eating and then tends to go away about a half an hour after eating. She has not had fevers, chills, melena, bright red blood per rectum, dizziness or emesis. The pain may occasionally radiate to the right upper quadrant slightly, but overall it is primarily epigastric pain. She doesn't feel today as if this is similar to ulcer pain that she had in 1987, when she had a pyloric channel ulcer, although the first time I met her, she was having mild epigastric pains which she did think were the same type. PHYSICAL EXAMINATION: Weight was 266. Blood pressure was 124/84. Pulse was 80. GENERAL: She looks well. Temperature is 37.4. LUNGS: Clear to auscultation and percussion. HEART: There is a regular rate and rhythm, without murmurs, gallops or rubs. The abdomen is soft and nondistended but there is some epigastric tenderness. IMPRESSION: Epigastric pain. We need to rule out a recurrence of her peptic ulcer disease. I have ordered a upper GI today. I have also started Prilosec 20 mg per day empirically and I dispensed samples for one month. I will order a CBC and chemistry battery to rule out infection or liver enzyme abnormalities which might point toward biliary tract disease. I gave her strict instructions to call if she has increasing pain, fever, nausea, vomiting or blood in her stools. She will follow up with me after the upper GI. Forest Matos M.D. Care Nurse Rn, Medicine /link documented in this encounter Plan of Treatment Not on filedocumented as of this encounter Visit Diagnoses Not on filedocumented in this encounter"
--- OUTSIDE RECORDS SUMMARY | ~2019-04-06 | XMS | Encounter Summary ---
Demographics + + + | Address | [address] | | | [place] [address] | + + + | Home Phone | | + + + | Preferred Language | Unknown | + + + | Marital Status | Single | + + + | Methodist Affiliation | NON | + + + | Race | White | + + + | Ethnic Group | Not or | + + + Author + + + | Author | [facility] | + + + | Organization | [facility] | + + + | Address | Unknown | + + + | Phone | Unavailable | + + + Support + + + + + | Name | Relationship | Address | Phone | + + + + + | Caroline Gil | ECON | [place], [place] | | | | | [address] | | + + + + + | Van Reeves | ECON | [address] | | | | | [place] | | | | | [address] | | + + + + + | Cherelle Rea | ECON | Unknown | | + + + + + Care Team Providers + +------+ + | Care Patient Care Provider Name | Role | Phone | + +------+ + PCP | Unavailable | + +------+ + Encounter Details +--------+ + + + + | Date | Type | Department | Care Team | Description | +--------+ + + + + | 08/16/ | Results | [facility] [address] | [facility] | | | 1992 | Only | [address] | [phone] | | | | | Road [place], [place] | | | | | | [address] | | | | | | [phone] | | | +--------+ + + + [...] + | [facility] | Routin | 08/16/1993 | | Results for this | | | e | | | procedure are in the | | | | | | results section. | + +--------+ + + + documented in this encounter Results [facility] (08/16/1993) + + + + + + | [...] CYTOLOGY | | | | | | | | | | | | : | | | | | | Para: | | | | | | | | | | | | Abortus: Last | | | | | | Menstrual Period: | | | | | | GRETEL-BSO EM CA | | | | | | Hormonal | | | | | | Therapy: Not | | | | | | given No | | | | | | therapy | | | | | | xx Replacement | | | | | | [...] | + + + + + | [facility] | [address] | [place] [address] | | | PATHOLOGY | [address] | | | + + + + + documented in this encounter Visit Diagnoses Not on filedocumented in this encounter"
--- OUTSIDE RECORDS SUMMARY | ~2019-04-06 | XMS | Encounter Summary ---
Demographics + + + | Address | [address] | | | [place] [address] | + + + | Home Phone | | + + + | Preferred Language | Unknown | + + + | Marital Status | Single | + + + | Mosque Affiliation | NON | + + + | Race | White | + + + | Ethnic Group | Not or | + + + Author + + + | Author | [facility] | + + + | Organization | [facility] | + + + | Address | Unknown | + + + | Phone | Unavailable | + + + Support + + + + + | Name | Relationship | Address | Phone | + + + + + | Caroline Gil | ECON | [place], [place] | | | | | [address] | | + + + + + | Van Reeves | ECON | [address] | | | | | [place] | | | | | [address] | | + + + + + | Cherelle Rea | ECON | Unknown | | + + + + + Care Team Providers + +------+ + | Care Acid Tester Name | Role | Phone | + +------+ + | Jamel Keyes NP | PCP | | + +------+ + Encounter Details +--------+ + + + + | Date | Type | Department | Care Team | Description | +--------+ + + + + | 02/28/ | Procedure | Diagnostic Imaging | | | | 2017 | Pass | Services at [facility] | | | | | | [address] | | | | | | [facility] | | | | | | Mailcode: [address] | | | | | | [facility] | | | | | | [place], [place] | | | | | | [address] | | | | | | [phone] | | | +--------+ + + + [...] + + documented as of this encounter Functional Status + + + + | Functional Status | Response | Date of Assessment | + + + + | Because of a physical, mental, or emotional | No | 02/11/2018 | | condition, do you have serious difficulty | | | | doing errands alone such as visiting the | | | | doctor? | | | + + + + + + + + | Cognitive Status | Response | Date of Assessment | + + + + | Because of a physical, mental, or emotional | No | 02/11/2018 | | condition, do you have serious difficulty | | | | concentrating, remembering, or making | | | | decisions? (5 years old or older) | | | + + + + documented as of this encounter Plan of Treatment Not on filedocumented as of this encounter Visit Diagnoses Not on filedocumented in this encounter"
--- OUTSIDE RECORDS SUMMARY | ~2019-04-06 | XMS | Encounter Summary ---
Demographics + + + | Address | [address] | | | [place] [address] | + + + | Home Phone | | + + + | Preferred Language | Unknown | + + + | Marital Status | Single | + + + | Advent Affiliation | NON | + + + | Race | White | + + + | Ethnic Group | Not or | + + + Author + + + | Author | [facility] | + + + | Organization | [facility] | + + + | Address | Unknown | + + + | Phone | Unavailable | + + + Support + + + + + | Name | Relationship | Address | Phone | + + + + + | Caroline Gil | ECON | [place], [place] | | | | | [address] | | + + + + + | Van Reeves | ECON | [address] | | | | | [place] | | | | | [address] | | + + + + + | Cherelle Rea | ECON | Unknown | | + + + + + Care Team Providers + +------+ + | Care Machine Stitcher Name | Role | Phone | + +------+ + PCP | Unavailable | + +------+ + Encounter Details +--------+ + + + + | Date | Type | Department | Care Team | Description | +--------+ + + + + | 11/23/ | Office | General Internal | Note, Outpatient | Progress Note | | 1995 | Visit-Trans | Medicine [address] | Clinic | | | | cribed | [facility] | | | | | | Road Mailcode: [address] | | | | | | Outpatient Clinic | | | | | | [facility], [address] | | | | | | [place], [place] | | | | | | [address] | | | | | | [phone] | | | +--------+ + + + [...] as of this encounter Progress Notes Interface, Etl Developer In - 02/13/2007 7:26 AM PDT CLINIC DATE: 11/23/95 INTERNAL MEDICINE CLINIC SUBJECTIVE: Ms. Cuevas returns complaining of periumbilical irritation for about four days. She also reports that she has another Primary care physician since she has now lived in [place] and is only here to deal with this problem. About four days ago she noticed some irritation, and it has gotten slightly worse. She has no pain, but she has very little sensation in the area anyway because of scarring. She has had no nausea, vomiting, fever, diarrhea, constipation, or other signs of systemic illness. The area of irritation has not drained any fluid. She reports that her diabetes has been under good control and not worse in the last few days. PHYSICAL EXAMINATION: VITAL SIGNS: Weight is 259 pounds, blood pressure 118/70, pulse of 84. GENERAL: She looks well and comfortable. ABDOMEN: Protuberant. There is a large protuberant umbilicus above a vertical abdominal incision. At the edge of the umbilicus at about 10 o'clock there is a small area of ulceration less than 1 cm in diameter surrounded by only a few millimeters of erythema. The ulceration is not deep, and there is no discharge. It is possible to get fingers around and underneath the whole area of irritation and there clearly is no fluctuance or pus pocket there. IMPRESSION: Probable periumbilical fungal infection in a diabetic. I prescribed Nizoral cream to be used b.i.d. This is a very small problem now, but given the amount of surgery that she has had in the area, and her diabetes, a cellulitis or larger ulceration in the area could grow to be a chronic problem. For that reason, I would like to see her back in four to five days. She will followup with another provider in our clinic at that time in my absence. I gave her strict instructions to call for help if she has increasing pain, swelling, discharge, fever or signs of systemic illness. Forest Matos M.D. Family Nurse Practitioner, Medicine :joya documented in this encounter Plan of Treatment Not on filedocumented as of this encounter Visit Diagnoses Not on filedocumented in this encounter"
--- OUTSIDE RECORDS SUMMARY | ~2019-04-06 | XMS | Encounter Summary ---
Demographics + + + | Address | [address] | | | [place] [address] | + + + | Home Phone | | + + + | Preferred Language | Unknown | + + + | Marital Status | Single | + + + | Scientologist Affiliation | NON | + + + | Race | White | + + + | Ethnic Group | Not or | + + + Author + + + | Author | [facility] | + + + | Organization | [facility] | + + + | Address | Unknown | + + + | Phone | Unavailable | + + + Support + + + + + | Name | Relationship | Address | Phone | + + + + + | Caroline Gil | ECON | [place], [place] | | | | | [address] | | + + + + + | Van Reeves | ECON | [address] | | | | | [place] | | | | | [address] | | + + + + + | Cherelle Rea | ECON | Unknown | | + + + + + Care Team Providers + +------+ + | Care Digital Production Artist Name | Role | Phone | + +------+ + PCP | Unavailable | + +------+ + Encounter Details +--------+ + + + + | Date | Type | Department | Care Team | Description | +--------+ + + + + | 07/06/ | Office | General Internal | Note, Outpatient | Progress Note | | 1994 | Visit-Trans | Medicine [address] | Clinic | | | | cribed | [facility] | | | | | | Road Mailcode: [address] | | | | | | Outpatient Clinic | | | | | | [facility], [address] | | | | | | [place], [place] | | | | | | [address] | | | | | | [phone] | | | +--------+ + + + [...] as of this encounter Progress Notes Interface, Civil Cad Designer In - 02/22/2007 5:01 AM PDT CLINIC DATE: 07/06/95 GENERAL MEDICINE CLINIC: Ms. Cuevas returns today at my request for follow-up of abdominal pain and low fever. She reports that she had a much better night last night than in the previous week. She had no emesis and was able to keep down quite a bit of clear fluids. She took her temperature early in the morning and it was about 100 degrees, but she has felt better in the last few hours. She still has a vague discomfort in her stomach. She is afraid to eat food because she feels that the pain in her belly will return. She also reports some left lower quadrant mild discomfort associated with her incisional hernia. However, this is in a different location than the epigastric pain she has been complaining of now for a couple of weeks. PHYSICAL EXAMINATION: VITAL SIGNS: Weight 260, blood pressure, supine, 100/70, with a pulse of 84; standing, 115/85, with a pulse of 96. Temperature is 97.1. GENERAL: She looks well today, and not ill like she did yesterday. Notably, she is no longer tachycardic. LUNGS: Clear to auscultation and percussion. HEART: Heart shows a regular rate and rhythm without murmurs. ABDOMEN: Abdomen shows mild epigastric tenderness. There is also a persistent, vague, rather large, left lower quadrant mass consistent with a hernia that is just slightly tender. After our visit, she went for an abdominal ultrasound which showed a liver with fatty infiltration. Upper gastrointestinal series today by phone report showed a mild duodenitis. IMPRESSION: Abdominal pain. From the beginning, the pain in her belly has been most consistent with duodenitis or duodenal ulcer since it is exacerbated by eating. The upper gastrointestinal series finding is not surprising. On the other hand, this does not adequately explain her elevated white blood count or low fever that she had yesterday. For the time being, I will treat her empirically with Prilosec 20 mg b.i.d. over the weekend. I gave her strict instructions to call back if she has increasing fever, abdominal pain, dizziness, or other feelings of systemic illness. I have a low suspicion for intra-abdominal abscess, incarcerated hernia, or perforated ulcer. Forest Matos M.D. Regional Tanker Truck Driver, Medicine :shirley documented in this encounter Plan of Treatment Not on filedocumented as of this encounter Visit Diagnoses Not on filedocumented in this encounter"
--- OUTSIDE RECORDS SUMMARY | ~2019-04-06 | XMS | Clinical Summary ---
Demographics + + + | Address | [address] | | | [place] [address] | + + + | Home Phone | | + + + | Preferred Language | Unknown | + + + | Marital Status | | + + + | Jainism Affiliation | Unknown | + + + | Race | Unknown | + + + | Ethnic Group | Unknown | + + + Author + + + | Author | [facility] | | | and [place] | + + + | Organization | [facility] | | | and [place]leshana | [...] Team Providers + +------+ + | Care Crocheter Hand Name | Role | Phone | + +------+ + | Jamel Keyes NP | PP | | + +------+ + Allergies + + + + + + | Active Allergy | Reactions | Severity | Noted | Comments | | | | | Date | | + + + + + + | Metformin | Diarrhea | Low | 07/31/20 | | | | | | 16 | | + + + + + + Medications + + + +---------+------+------+-------+ | Medication | Sig | Dispensed | Refills | Star | End | Statu | | | | | | t | Date | s | | | | | | Date | | | + + + +---------+------+------+-------+ | VENTOLIN HFA 108 | Inhale 2 puffs into | | 0 | 08/1 | | Activ | | (90 BASE) MCG/ACT | the lungs every 4 | | | /20 | | e | | inhaler | hours as needed. | | | 16 | | | + + + +---------+------+------+-------+ | gabapentin | Take 300 mg by mouth | | 0 | 07/13 | | Activ | | (NEURONTIN) 300 mg | Daily. | | | 01/01 | | e | | capsule | | | | 16 | | | + + + +---------+------+------+-------+ | simvastatin | Take 20 mg by mouth | | 0 | | | Activ | | (ZOCOR) 10 mg tablet | nightly. | | | | | e | + + + +---------+------+------+-------+ | sertraline | Take 100 mg by mouth | | 0 | | | Activ | | (ZOLOFT) 100 mg | Daily. | | | | | e | | tablet | | | | | | | + + + +---------+------+------+-------+ | | Inhale 2 puffs into | 1 | 11 | 10/1 | | Activ | | budesonide-formotero | the lungs 2 times | Inhaler | | 05/31 | | e | | l (SYMBICORT) | daily. | | | 16 | | | | 160-4.5 mcg/puff | | | | | | | | inhalerIndications: | | | | | | | | Moderate persistent | | | | | | | | asthma without | | | | | | | | complication | | | | | | | + + + +---------+------+------+-------+ | aspirin 81 mg | Take 1 tablet by | | 0 | 05/0 | | Activ | | chewable tablet | mouth Daily. | | | 03/01 | | e | | | | | | 18 | | | + + + +---------+------+------+-------+ | omeprazole | Take 1 capsule by | | 0 | | | Activ | | (PRILOSEC) 20 mg | mouth Daily. | | | | | e | | capsule | | | | | | | + + + +---------+------+------+-------+ | latanoprost | Place 1 drop into | | 0 | | | Activ | | (XALATAN) 0.005% | both eyes nightly. | | | | | e | | ophthalmic solution | | | | | | | + + + +---------+------+------+-------+ | brimonidine | Place 1 drop into | | 0 | | | Activ | | (ALPHAGAN P) 0.15% | both eyes 2 times | | | | | e | | ophthalmic solution | daily. | | | | | | + + + +---------+------+------+-------+ | insulin lispro | Inject 6 Units under | | 0 | 12/1 | | Activ | | (HUMALOG KWIKPEN) | the skin 3 times | | | 6/20 | | e | | 100 units/mL | daily (with meals). | | | 18 | | | | injection (pen) | | | | | | | + + + +---------+------+------+-------+ | insulin lispro | Inject 0-18 Units | | 0 | 12/1 | | Activ | | (HUMALOG KWIKPEN) | under the skin 4 | | | 6/20 | | e | | 100 units/mL | times daily (with | | | 18 | | | | injection (pen) | meals and nightly). | | | | | | + + + +---------+------+------+-------+ | lisinopril | Take 0.5 tablets by | 30 | 0 | 12/1 | | Activ | | (PRINIVIL, ZESTRIL) | mouth Daily. | tablet | | 6/20 | | e | | 10 mg tablet | | | | 18 | | | + + + +---------+------+------+-------+ | insulin glargine | Inject 50 Units | | 0 | 12/1 | | Activ | | (LANTUS SOLOSTAR) | under the skin every | | | 7/20 | | e | | 100 units/mL | morning. | | | 18 | | | | injection (pen) | | | | | | | + + + +---------+------+------+-------+ | apixaban (ELIQUIS) | Take 5 mg twice | 60 | 2 | 12/2 | | Activ | | 5 mg tablet | daily. | tablet | | 0/20 | | e | | | | | | 18 | | | + + + +---------+------+------+-------+ Active Problems + + + | Problem | Noted Date | + + + | Dvt femoral (deep venous thrombosis) | 10/27/2018 | + + + | Hypoxia | 10/22/2018 | + + + | Insulin dependent diabetes mellitus | 10/22/2018 | + + + | Other hyperlipidemia | 10/22/2018 | + + + | Class 3 severe obesity with body mass index (BMI) of 45.0 to 49.9 | 10/22/2018 | | in adult | | + + + | Leukocytosis | 10/22/2018 | + + + | OLIVIA on CPAP | 06/12/2018 | + + + | ARDS (adult respiratory distress syndrome) | 02/18/2018 | + + + | Pneumonia due to human metapneumovirus (hMPV) | 02/18/2018 | + + + | Moderate persistent asthma without complication | 09/25/2016 | + + + Resolved Problems + + + + | Problem | Noted | Resolved | | | Date | Date | + + + + | Acute kidney injury | 10/22/20 | | | | 18 | 8 | + + + + | Hyperkalemia | 10/22/20 | | | | 18 | 8 | + + + + | Elevated troponin | 10/22/20 | | | | 18 | 8 | + + + + Immunizations + + + + | Name | Dates Previously Given | Next Due | + + + + | INFLUENZA PF 18 Y OR | 08/15/2012, 09/07/2011 | | | >,QUADRIVALENT | | | | RECOMBINANT | | | + + + + | INFLUENZA PF | 08/28/2016, 02/02/2016 | | | QUAD(PED/ADOL/ADULT) | | | | ,PSKT or VIAL | | | + + + + | INFLUENZA PF | 08/05/2018, 09/15/2014, 08/15/2012, | | | TRIVALENT(PED/ADOL/A | 09/07/2011 | | | DULFlor) PSKT | | | + + + + | INFLUENZA, [id number], | 09/17/2009 | | | UNSPECIFIED | | | + + + + | INFLUENZA, | 09/26/2013, 09/12/2010, 08/26/2009, | | | UNSPECIFIED | 09/14/2008, 09/11/2007, 10/25/2006 | | | FORMULATION | | | + + + + | PNEUMOCOCCAL | 06/26/2018 | | | CONJUGATE 13-VALENT | | | | (PCV13) | | | + + + + | PNEUMOCOCCAL | 02/02/2016, 03/01/2006 | | | POLYSACCHARIDE | | | | 23-VALENT (PPSV23) | | | + + + + | PPD Test | 03/12/2018 | | + + + + | TD PF (2 LF TETANUS) | 01/28/2003 | | | (ADOL/ADULT) | | | + + + + | TDAP, (ADOL/ADULT) | 06/12/2011 | | + + + + Family History + + +------+ + | Medical History | Relation | Name | Comments | + + +------+ + | Cancer | Brother | | ?lung | + + +------+ + | No known problems | Brother | | | + + +------+ + | * | Father | | accident | + + +------+ + | Cancer | Mother | | pancreatic | + + +------+ + | Heart attack | Mother | | | + + +------+ + | * | Sister | | in sleep | + + +------+ + | Cancer | Sister | | bladder | + + +------+ + | Hepatitis C | Sister | | | + + +------+ + + +------+ + + | Relation | Name | Status | Comments | + +------+ + + | Brother | | | | + +------+ + + | Brother | | Alive | | + +------+ + + | Father | | | | + +------+ + + | Mother | | | | + +------+ + + | Sister | | | | + +------+ + + | Sister | | | | + +------+ + + | Sister | | Alive | | + +------+ + + Social [...] | | | + +---+---+---+ + + | Tobacco Cessation: Counseling Given: No | + + + + +---------+ + | Alcohol Use [...] recent travel history available. | + + Last Filed Vital Signs + + + + | Vital Sign | Reading | Time Taken | + + + + | Blood Pressure | 144/67 | 10/27/2018812 PST | + + + + | Pulse | 74 | 10/27/2018924 PST | + + + + | Temperature | 36.4 C (97.6 F) | 10/27/2018812 PST | + + + + | Respiratory Rate | 18 | 10/27/2018924 PST | + + + + | Oxygen Saturation | 93% | 10/27/2018924 PST | + + + + | Inhaled Oxygen | - | - | | Concentration | | | + + + + | Weight | 127.7 kg (281 lb 8.4 | 10/27/2018422 PST | | | oz) | | + + + + | Height | 160 cm (5' 3") | 10/22/2018132 PST | + + + + | Body Mass Index | 49.87 | 10/22/2018132 PST | + + + + Plan of Treatment + + + + + | Health Maintenance | Due Date | Last Done | Comments | + + + + + | Hepatitis C | | | | | Screening | 5 | | | + + + + + | Diabetic Eye Exam | | | | | | 3 | | | + + + + + | Diabetic Foot Exam | | | | | | 3 | | | + + + + + | Breast Cancer | | | | | Screening (Ages | 5 | | | | 50-74) | | | | + + + + + | Colorectal Cancer | | | | | Screening | 5 | | | | (Colonoscopy) | | | | + + + + + | Vaccine: Zoster (1 | | | | | of 2) | 9 | | | + + + + + | Adult Annual | | | | | Wellness Visit | 6 | | | + + + + + | Hemoglobin A1c | | 10/22/2018 | | | Screening | 9 | | | + + + + + | Vaccine: | | 06/12/2011, 01/28/2003 | | | Dtap/Tdap/Td (2 - | 1 | | | | Td) | | | | + + + + + | Vaccine: | Completed | 02/02/2016, 03/01/2006 | | | Pneumococcal 19-64 | | | | | (PPSV23 only) Medium | | | | | Risk | | | | + + + + + | Vaccine: Influenza | Completed | 08/05/2018, 08/28/2016, | | | | | 02/02/2016, Additional history | | | | | exists | | + + + + + Implants + +--------+--------+ +--------+--------+--------+ | Implanted | Type | Area | Manufacture | Device | Shelf | Model | | | | | r | | Expira | / | | | | | | Identi | tion | Serial | | | | | | fier | Date | / Lot | + +--------+--------+ +--------+--------+--------+ | Lens Tecnis Preloaded Pcb | Generi | Right: | GANNON | | 07/12/ | [id number] | | 23.0 - [id number]: | c | Eye | MEDICAL | | 2020 | 0230 | | Qty: 1 on 08/14/2018 by | | | [employer] - | | | /[id number] | | Cristhian Lewis MD | | | JEVON | | | [id number] | | | | | | | | /N/A | + +--------+--------+ +--------+--------+--------+ | Brady Pacheco - | Generi | Right: | GLAUKOS - | | 06/11/ | [id number] | | [id number]: Qty: | c | Eye | GLAU | | 2020 | L | | 1 on 08/14/2018 by Joshua, | | | | | | /[id number] | | Cristhian Vasquez MD | | | | | | [id number] | | | | | | | | 5 /N/A | + +--------+--------+ +--------+--------+--------+ Results Not on filefrom Last 3 Months Insurance + +--------+ +--------+ +---------+--------+ | Payer | Benefi | Subscriber | Effect | Phone | Address | Type | | | t Plan | ID | neo | | | | | | / | | Dates | | | | | | Group | | | | | | + +--------+ +--------+ +---------+--------+ | MEDICARE | MEDICA | [id number] | | [phone] | | Medica | | | RE | | 015-Pr | 5 | | re | | | PART A | | esent | | | | | | AND B | | | | | | + +--------+ +--------+ +---------+--------+ | | CHAMPV | [id number] | 10/25/ | [phone] | | Indemn | | | A | | 2008-P | 7 | | ity | | | | | resent | | | | + +--------+ +--------+ +---------+--------+ + +--------+ +--------+ + + | Guarantor Name | Accoun | Relation to | Date | Phone | Billing Address | | | t Type | Patient | of | | | | | | | | | | + +--------+ +--------+ + + | Sarah Reeves | Person | Self [birth year] | [address] | | al/Fam | | 1954 | [phone] | [place] [address] | | | craig | | | 5 (Home) | | + +--------+ +--------+ + + Advance Directives Patient has advance care planning documents, and code status on file. For more information, please contact:[facility] [place] [address] + + + + + | Code Status | Date | Date | Comments | | | Activated | Inactivated | | + + + + + | Full Code | 10/22/2018 | 10/27/2018 | | | | 2:10 | 14:14 | | + + + + + + + + +---+ | | | | | + + + +---+ | Full Code | 08/14/2018 | 08/14/2018 | | | | 15:55 | 17:55 | | + + + +---+
--- OUTSIDE RECORDS SUMMARY | ~2019-04-06 | XMS | Encounter Summary ---
Demographics + + + | Address | [address] | | | [place] [address] | + + + | Home Phone | | + + + | Preferred Language | Unknown | + + + | Marital Status | Single | + + + | Gnosticism Affiliation | NON | + + + | Race | White | + + + | Ethnic Group | Not or | + + + Author + + + | Author | [facility] | + + + | Organization | [facility] | + + + | Address | Unknown | + + + | Phone | Unavailable | + + + Support + + + + + | Name | Relationship | Address | Phone | + + + + + | Caroline Gil | ECON | [place], [place] | | | | | [address] | | + + + + + | Van Reeves | ECON | [address] | | | | | [place] | | | | | [address] | | + + + + + | Cherelle Rea | ECON | Unknown | | + + + + + Care Team Providers + +------+ + | Care Bowl Topper Name | Role | Phone | + +------+ + | Jamel Keyes NP | PCP | | + +------+ + Encounter Details +--------+ + + + + | Date | Type | Department | Care Team | Description | +--------+ + + + + | 02/28/ | Procedure | Diagnostic Imaging | | | | 2017 | Pass | Services at [facility] | | | | | | [address] | | | | | | [facility] | | | | | | Mailcode: [address] | | | | | | [facility] | | | | | | [place], [place] | | | | | | [address] | | | | | | [phone] | | | +--------+ + + + [...]
--- OUTSIDE RECORDS SUMMARY | ~2019-04-06 | XMS | Encounter Summary ---
Demographics + + + | Address | [address] | | | [place] [address] | + + + | Home Phone | | + + + | Preferred Language | Unknown | + + + | Marital Status | Single | + + + | Catholic Affiliation | NON | + + + | Race | White | + + + | Ethnic Group | Not or | + + + Author + + + | Author | [facility] | + + + | Organization | [facility] | + + + | Address | Unknown | + + + | Phone | Unavailable | + + + Support + + + + + | Name | Relationship | Address | Phone | + + + + + | Caroline Gil | ECON | [place], [place] | | | | | [address] | | + + + + + | Van Reeves | ECON | [address] | | | | | [place] | | | | | [address] | | + + + + + | Cherelle Rea | ECON | Unknown | | + + + + + Care Team Providers + +------+ + | Care Electric Motor Repairing Supervisor Name | Role | Phone | + +------+ + | Jamel Keyes NP | PCP | | + +------+ + Encounter Details +--------+ + + + + | Date | Type | Department | Care Team | Description | +--------+ + + + + | 03/04/ | Procedure | Diagnostic Imaging | | | | 2018 | Pass | Services at [facility] | | | | | | [address] | | | | | | [facility] | | | | | | Mailcode: [address] [facility] | | | | | | [facility], | | | | | | [place] [address] | | | | | | [phone] | | | +--------+ + + + [...]
--- OUTSIDE RECORDS SUMMARY | ~2019-04-06 | XMS | Clinical Summary ---
Demographics + + + | Address | [address] | | | [place] [address] | + + + | Home Phone | | + + + | Preferred Language | Unknown | + + + | Marital Status | | + + + | Mosque Affiliation | Unknown | + + + | Race | Unknown | + + + | Ethnic Group | Unknown | + + + Author + + + | Author | [facility] | + + + | Organization | [facility] | + + + | Address [...] Team Providers + +------+ + | Care Microfilm Duplicating Unit Supervisor Name | Role | Phone | [...] | | | | Activ | | F30-Mbquzqg E | mouth. | | | | [...] 130/80 | 08/01/2016 | + + + Immunizations + + + [...] Description | +--------+---------+ + + + | 07/17/ | Office | | Jerman Bob, | | | 2018 | Visit | | MD Alberto AUGUSTINE | | | | | | [address] [address] | | | | | | [place] [address] | | | | | | [phone] | | | | | | | [...] | | 08/28/2016, 02/02/2016, | | | (Season Ended) | 9 | 08/15/2012, Additional history | | | [...] filefrom Last 3 Months Insurance + +--------+ +------+-------+ + | Payer | Benefi | Subscriber | Type | Phone | Address | | | t Plan | ID | | | | | | / | | | | | | | Group | | | | | + +--------+ +------+-------+ + | MEDICARE | MEDICA | [id number] | | | [address] | | | RE | | | | [place] [address] | | | IP-OP | | | | | + +--------+ +------+-------+ + | HERSON - [employer] - | CHAMPV | [id number] | | | [address] [address] | | | A | | | | [place], [place] | | | | | | | [address] | + +--------+ +------+-------+ + + +--------+ +--------+ + + | Guarantor Name | Accoun | Relation to | Date | Phone | Billing Address | | | t Type | Patient | of | | | | | | | | | | + +--------+ +--------+ + + | MARICRUZ LINN | Person | Self [birth year] Home: | [address] | | | al/Hair | | 1955 | [phone] [place] [address] | | | craig | | | [phone] | | + +--------+ +--------+ + +
--- OUTSIDE RECORDS SUMMARY | ~2019-04-06 | XMS | Encounter Summary ---
Demographics + + + | Address | [address] | | | [place] [address] | + + + | Home Phone | | + + + | Preferred Language | Unknown | + + + | Marital Status | Single | + + + | Orthodox Affiliation | NON | + + + | Race | White | + + + | Ethnic Group | Not or | + + + Author + + + | Author | [facility] | + + + | Organization | [facility] | + + + | Address | Unknown | + + + | Phone | Unavailable | + + + Support + + + + + | Name | Relationship | Address | Phone | + + + + + | Caroline Gil | ECON | [place], [place] | | | | | [address] | | + + + + + | Van Reeves | ECON | [address] | | | | | [place] | | | | | [address] | | + + + + + | Cherelle Rea | ECON | Unknown | | + + + + + Care Team Providers + +------+ + | Care Pinball Machine Repairer Name | Role | Phone | + +------+ + PCP | Unavailable | + +------+ + Encounter Details +--------+ + + + + | Date | Type | Department | Care Team | Description | +--------+ + + + + | 06/12/ | Results | LAB CORE [address] | Other Faculty | | | 1993 | Only | [address] | [phone] | | | | | Road [place], [place] | | | | | | [address] | | | | | | [phone] | | | +--------+ + + + [...] + | ARCHIVE CYTOLOGY | Routin | 06/12/1994 | | Results for this | | | e | | | procedure are in the | | | | | | results section. | + +--------+ + + + documented in this encounter Results ARCHIVE CYTOLOGY (06/12/1994) + + + + + + | [...] : | | | | | | 2 Para: | | | | | | 2 Abortus: | | | | | | Last Menstrual Period: | | | | | | HYST 1992 | | | | | | Hormonal [...] | + + + + + | [facility] | [address] | [place] [address] | | | PATHOLOGY | [address] | | | + + + + + documented in this encounter Visit Diagnoses Not on filedocumented in this encounter"
--- OUTSIDE RECORDS SUMMARY | ~2019-04-06 | XMS | Encounter Summary ---
Demographics + + + | Address | [address] | | | [place] [address] | + + + | Home Phone | | + + + | Preferred Language | Unknown | + + + | Marital Status | Single | + + + | Gnosticist Affiliation | NON | + + + [...] + | Caroline Gil | ECON | [place], [place] | | | | | [address] | | + + + + + | Van Reeves | ECON | [address] | | | | | [place] | | | | | [address] | | + + + + + | Cherelle Rea | ECON | Unknown | | + + + + + Care Team Providers + +------+ + | Care Spanish Instructor Name | Role | Phone | + +------+ + | Jamel Keyes NP | PCP | | + +------+ + Reason for Visit + + + | Reason | Comments | + + + | Return Patient | | + + + Office Visit - E/M Services (Routine) + +--------+ + + + + | Status | Reason | Specialty | Diagnoses / | Referred By | Referred To | | | | | Procedures | Contact | Contact | + +--------+ + + + + | Pending | | Neurology | Procedures | Non-[facility] | Eusebio, | | Review | | | LA EST | Epic Dept | MD Marlen | | | | | PATIENT | | [address] | | | | | [address] | | [address] | | | | | | | [place], | | | | | | | [place] | | | | | | | [address] | | | | | | | Phone: | | | | | | | [phone] | | | | | | | Fax: | | | | | | | [phone] | + +--------+ + + + + Encounter Details +--------+---------+ + + + | Date | Type | Department | Care Team | Description | +--------+---------+ + + + | 07/31/ | Office | Neurology at | Marlen Kaplan, | Toxic metabolic | | 2018 | Visit | [facility] & | [address] | encephalopathy | | | | [place] [address] | (Primary Dx); | | | | [place] Mail Code: | [place], [place] | Insomnia, | | | | [address] | [address] | unspecified type; | | | | [facility], | [phone] | Obstructive sleep | | | | 8th floor [place], | | apnea on CPAP | | | | [place] [address] | | | | | | [phone] | | | +--------+---------+ + + + [...] + + documented as of this encounter Last Filed Vital Signs + + + + + | Vital Sign | Reading | Time Taken | Comments | + + + + + | Blood Pressure | 157/71 | 07/31/2018 2:18 PM | | | | | PDT | | + + + + + | Pulse | 83 | 07/31/2018 2:18 PM | | | | | PDT | | + + + + + | Temperature | - | - | | + + + + + | Respiratory Rate | - | - | | + + + + + | Oxygen Saturation | - | - | | + + + + + | Inhaled Oxygen | - | - | | | Concentration | | | | + + + + + | Weight | 126.1 kg (278 lb) | 07/31/2018 2:18 PM | | | | | PDT | | + + + + + | Height | - | - | | + + + + + | Body Mass Index | 44.68 | 02/19/2018 2:31 AM | | | | | PDT | | + + + + + documented in this encounter Functional Status + + + [...] + + documented as of this encounter Patient Instructions Patient Instructions Marlen Kaplan MD - 07/31/2018 2:40 PM PDTTry listening to music, t urning off sounds or listening to a meditation video. Discuss seroquel for sleeping with PCP. He can assist you with PT/OT as well. Electronically signed by Marlen Kaplan MD at 2017 3:35 PM PDT documented in this encounter Progress Notes Marlen Kaplan MD - 07/31/2018 2:40 PM PDTFormatting of this note might be different fro m the original. Neurology New Consult Note Author: Marlen Kaplan MD Consult Date/Time: 07/31/2018 4:10 PM HPI: Sarah Reeves is a 62 y.o. woman with OLIVIA on CPAP, asthma, HTN, CHF, DMT2 initially admitted to OSH on 02/07 with suspected pneumonia that progressed to ARDS, transferred to [facility] 02/10 and intubated. Patient was extubated on 02/20 and had persistent encephalopathy resulti ng in general neurology consultation on 03/03, workup and course significant for: - LP with an elevated protein and glucose, normal wbc, 404 rbc, CSF meningoencephalitis villarreal el negative. - EEG with non-specific generalized slowing, and normal brain MRI wwo contrast. - Given IV methylprednisolone 1000 mg x3 days (03/03-03/05), reportedly Exam significantly im proved - IVIG 2 g/kg given over 5 days (03/05-03/10). - CT C/A/P obtained and negative. - PET scan revealed increased bone marrow uptake and diffusely increased tracer uptake thro ughout the liver. Prior to this, usually cares for and house, and is independent in ADLs. Interval events: Patient went to rehab facility and discharged home with home health services from which she has graduated. Reports that she often finds she cannot finish wiping herself and so she jus t goes to bed dirty. Her , for whom she was primary caregiver prior to this, is on th e other side of the house with caregivers who "would help her if they heard her fall" but ar e not there to assist her. She reports feeling safe at home, but does sometimes feel as thou gh she will fall and hurt herself. She is still driving to the store and back, but could marty e a cab. Her main concern today is "the talking" which is an ongoing event for her. She reports play ing things over and over in her head to the point that her mind "never shuts off" and she ca nnot sleep. She has increased melatonin to 10mg but doesn't find it at all helpful. Neurologic ROS [place]: - Focal weakness: - Focal numbness: - Tingling/parasthesias: - Difficulty walking: - Difficulty with balance: - Vertigo: - [place]: - Change in vision: - Change in hearing: - Tinnitus: - Review of Systems General: Fever: - Chills: - Eyes: Change in vision: - Eye pain: - Respiratory: Shortness of breath: - Cough: - Cardiovascular: Chest pain: - Palpitations: - Gastrointestinal: N/V: - Diarrhea/Constipation: - Genitourinary: Incontinence: - Retention: - Change in urinary habits: - Psychological: Anxiety: - Depression: - Suicidal ideations: - Hallucinations: - PMH: No past medical history on file. HTN DM Nausea OLIVIA Asthma Current Meds: Current Medication List Name Sig ALBUTEROL SULFATE HFA 90 MCG/ACTUATION AEROSOL INHALER Inhale 2 puffs by mouth every six ho urs as needed. AMLODIPINE 10 MG TABLET Take 1 tablet by mouth once daily. ASPIRIN 81 MG CHEWABLE TABLET Chew and swallow 1 tablet once daily. BUDESONIDE-FORMOTEROL HFA 160 MCG-4.5 MCG/ACTUATION AEROSOL INHALER Inhale 2 puffs by mouth two times daily. Indications: Maintenance Therapy for Asthma ENOXAPARIN 40 MG/0.4 ML SUBCUTANEOUS SYRINGE Inject 0.4 mL under the skin (SUBC) once daily in the evening. Until patient becomes more ambulatory. INSULIN ASPART U-100 100 UNIT/ML SUBCUTANEOUS PEN Inject 10 Units under the skin (SUBC) th ree times daily before meals. Adjust as needed based off CBGs INSULIN GLARGINE (U-300) CONC. 300 UNIT/ML (1.5 ML) SUBCUTANEOUS PEN Inject 20 Units under the skin (SUBC) once daily at bedtime. Adjust as needed based off CBGs LISINOPRIL 10 MG TABLET Take 1 tablet by mouth once daily. OMEPRAZOLE 20 MG CAPSULE,DELAYED RELEASE Take 20 mg by mouth once daily. ONDANSETRON 4 MG DISINTEGRATING TABLET Dissolve 4 mg on tongue and swallow three times edel y as needed. POTASSIUM CHLORIDE ER 10 MEQ TABLET,EXTENDED RELEASE(PART/CRYST) Take 10 mEq by mouth once daily. SERTRALINE 100 MG TABLET Take 100 mg by mouth once daily. Allergies: No Known Allergies Social History: Social History Social History Marital status: Single Spouse name: N/A Number of children: N/A Years of education: N/A Occupational History Not on file. Social History Main Topics Smoking status: Never Smoker Smokeless tobacco: Never Used Alcohol use Not on file Drug use: Unknown Sexual activity: Not on file Other Topics Concern Not on file Social History Narrative No narrative on file Family History: Reviewed Physical Exam BP 157/71 | Pulse 83 | Wt 126.1 kg (278 lb) | BMI 44.68 kg/(m^2) Admission Weight: Weight: 126.1 kg (278 lb) (07/31/18 1418) General: Well nourished, NAD, in wheelchair HEENT: Normocephalic, atraumatic, proptosis L>R Respiratory: Breathing comfortably on room air Cardiovascular: Pulses palpable and symmetric Abdominal: Obese, BS+ Psychiatric: Affect full Mental Status: Alert, oriented to place self. Cranial Nerves: I: Not tested II: PERRL, visual bell full to confrontation bilaterally. III, IV, : Gaze conjugate, EOMI V: Sensation intact and symmetric to light touch V1-V3 VII: Symmetric facial motor function bilaterally VIII: Intact to finger rub bilaterally IX: Palate elevates symmetrically X: Normal cough XI: Normal shrug bilaterally XII: Tongue protrudes midline Motor: No drift. Normal bulk. Normal tone. Delt (C5,6) Bi (C5) Tri (C7) WE (C6) FF (C8) IO (C8,T1) HF (L3) KF KE (L3,4) DF (L4) EHL (L5) PF (S1) Left 5 5 5 5 5 5 5 5 5 5 5 5 Right 5 5 5 5 5 5 5 5 5 5 5 5 Sensation: Light touch: Intact and symmetric in the bilateral upper and lower extremities. Temp: Intact and symmetric in the bilateral upper and lower extremities. Vibration: Absent distal to knees bilaterally DTRs: Biceps Triceps Brachioradialis Knee Ankle Left 2+ 2+ 2+ 3+ 1+ Right 2+ 2+ 2+ 3+ 1+ Plantar response with withdrawal bilaterally Hoffmans sign is absent bilaterally Coordination: Reaching out with normal speed, no action tremor, and no end-point dysmetria Gait: Not assessed Labs: IMAGING:Images and reports personally reviewed. Routine EEG (02/12/2018): This awake and drowsy routine EEG is abnormal due to mild to modera te generalized slowing. This degree of slowing correlates to a mild to moderate encephalopat hy that is nonspecific in etiology. No epileptiform activity or seizures captured. MRI Brain (03/01/2018): 1. No cause for patient's encephalopathy identified. No definite acu te intracranial abnormality. 2. Generalized brain parenchymal volume loss, likely greater th an normal for patient age. 3. Scattered nonspecific parenchymal T2/flair hyperintense foci, discussed above, favored to represent sequela of prior ischemia. MRI L-spine (03/01/2018): Multilevel degenerative changes, as described above. No high-grade central canal stenosis. Possible small subdural fluid collection in the ventral canal at L4 -5, incompletely characterized here. L5 pars interarticularis defects noted bilaterally. 24 Hr EEG: (03/04/2018): This meterman EEG is abnormal due to: 1. Mild to moderate diffuse slowing 2. Frontal Intermittent Rhythmic Delta Activity (FIRDA), No seizures or epileptiform discharges were seen. Full Body PET (03/12/2018): 1. Diffusely increased bone marrow tracer uptake in the axial and appendicular skeleton, including all vertebral bodies and pelvis, multiple ribs, as well as bilateral proximal femurs. This is a nonspecific finding and likely indicates hyperplastic bone marrow of unknown etiology. 2. Diffusely increased tracer uptake throughout the liver, which may be seen in overactivation of the reticuloendothelial system. 3. No discrete eviden ce of malignancy. CSF: (03/01/2018) Meningoencephalitis panel negative WBC <1, RBC 404, Protein 85, Glucose 114 Candia Autoimmune Encephalopathy CSF Panel: Negative Candia Autoimmune Encephalopathy Serum Panel: Negative Diagnosis: Encephalopathy, resolving Insomnia Assessment: Sarah Reeves is a 62 y.o. female with PMHx of OLIVIA on CPAP, asthma, HTN, CHF, DMT2 initially admitted to OSH on 02/07 with pneumonia that progressed to ARDS thought to be secondary to metapneumovirus, transferred to [facility] 02/10 and intubated with persistent encephal opathy since extubated on 02/20, s/p IV methylprednisolone 1000 mg x3 days (03/03-03/05), IVIG 2 g/kg given over 5 days (03/05-03/10), significant improvement after she received IV steroids . Since then she reports general improvement in her mentation though she still "has a ways to go". Her insomnia may have component of anxiety - believe this patient would benefit from n ightly seroquel, was very helpful in hospital. Would consider starting at night only but if patient not driving any longer and "talking" still a problem during the day could consider a dding morning dose. May also benefit from adjustment of SSRI, though starting seroquel at [facility] would likely provide mood benefit. Recommendations - Discuss seroquel for sleep with PCP - Discuss with him outpatient PT/OT versus home health. - Try listening to guided mediation videos or sound machine tracks instead of television at night, this may help with sleep. - Will see patient on PRN basis. This patient has been staffed and seen with Dr. Kellogg, attending physician, who agrees with the above assessment and plan. Please see the attestation/note by said attending for fu rther modifications to plan. Marlen Kaplan MD, PGY2 Neurology [facility] [id number] signed by Marlen Kaplan MD at 08/20/2018 9:24 PM PDT Lizeth Kellogg MD - 07/31/2018 2:40 PM PDTNeurology Attending Attestation: I performed a history and physical examination of the patient and discussed her management with the resident and neurology team. I reviewed the resident s note and agree with the d ocumented findings and plan of care. Autoimmune antibodies negative, no need for additional immune modulating treatments. Patiann dhillon is not back to previous baseline but able to live independently, cognitively has been priya adily improving. Notes racing thoughts causing insomnia. Recommend behavioral treatments w ith wind-down routine, turning off TV and using nature or meditation CDs as she is falling a sleep. If no improvement, she should discuss with her PCP a trial of Seroquel 25-50mg. Lizeth Kellogg MD NEUROLOGY AT [address] [facility] [place] Mail Code: [address] [address] documented in thi s encounter Plan of Treatment Not on filedocumented as of this encounter Visit Diagnoses + + | Diagnosis | + + | Toxic metabolic encephalopathy - Primary Reserved for inherently not codable concepts | | WITHOUT codable children | + + | Insomnia, unspecified type | + + | Obstructive sleep apnea on CPAP Obstructive sleep apnea (adult) (pediatric) | + + documented in this encounter
--- OUTSIDE RECORDS SUMMARY | ~2019-04-06 | XMS | Encounter Summary ---
Demographics + + + | Address | [address] | | | [place] [address] | + + + | Home Phone | | + + + | Preferred Language | Unknown | + + + | Marital Status | Single | + + + | Rastafari Affiliation | NON | + + + | Race | White | + + + | Ethnic Group | Not or | + + + Author + + + | Author | [facility] | + + + | Organization | [facility] | + + + | Address | Unknown | + + + | Phone | Unavailable | + + + Support + + + + + | Name | Relationship | Address | Phone | + + + + + | Caroline Gil | ECON | [place], [place] | | | | | [address] | | + + + + + | Van Reeves | ECON | [address] | | | | | [place] | | | | | [address] | | + + + + + | Cherelle Rea | ECON | Unknown | | + + + + + Care Team Providers + +------+ + | Care General Ii Farmworker Name | Role | Phone | + +------+ + PCP | Unavailable | + +------+ + Encounter Details +--------+ + + + + | Date | Type | Department | Care Team | Description | +--------+ + + + + | 02/13/ | Results | LAB CORE [address] | Other Faculty | | | 1993 | Only | [address] | [phone] | | | | | Road [place], [place] | | | | | | [address] | | | | | | [phone] | | | +--------+ + + + [...] + | ARCHIVE CYTOLOGY | Routin | 02/13/1994 | | Results for this | | | e | | | procedure are in the | | | | | | results section. | + +--------+ + + + documented in this encounter Results ARCHIVE CYTOLOGY (02/13/1994) + + + + + + | [...] | | | | | | Period: HYST EM | | | | | | ADENOCA | | | | | | Hormonal [...] | | | | | | IDENTIFIED BACTERIA | | | | | | IDENTIFIED ENDOCERVIC | | | | | | AL CELLS ABSENT | | | | | | My electronic signature | | | | | [...] | + + + + + | [facility] | [address] | [place] [address] | | | PATHOLOGY | [address] | | | + + + + + documented in this encounter Visit Diagnoses Not on filedocumented in this encounter"
--- OUTSIDE RECORDS SUMMARY | ~2019-04-06 | XMS | Encounter Summary ---
Demographics + + + | Address | [address] | | | [place] [address] | + + + | Home Phone | | + + + | Preferred Language | Unknown | + + + | Marital Status | Single | + + + | Judaism Affiliation | NON | + + + [...] + | Caroline Gil | ECON | [place], [place] | | | | | [address] | | + + + + + | Van Reeves | ECON | [address] | | | | | [place] | | | | | [address] | | + + + + + | Cherelle Poneto | ECON | Unknown | | + + + + + Care Team Providers + +------+ + | Care Emblem Fuser Tender Name | Role | Phone | + +------+ + PCP | Unavailable | + +------+ + Encounter Details +--------+ + + + + | Date | Type | Department | Care Team | Description | +--------+ + + + + | 05/04/ | Results | | Other, Faculty | | | 1992 | Only | | [phone] | | +--------+ + + + + [...] X-RAY CHEST 2 VIEW | Routin | 05/04/1993 | | Results for this | | | e | 5:20 PM | | procedure are in the | | | | PDT | | results section. | + +--------+ + + + documented in this encounter Results CHEST 2 VIEW (05/04/1993 5:20 PM PDT) + + + + + + | Component | Value | Ref Range | Performed | Pathologist | | | | | At | Signature | + + + + + + | CHEST, 2 | Radiologist 1: [place], | | | | | VIEWS [place] | KATY GRANADOS, | | | | | STEREO | [place] | | | | | | A. | | | | | | | | | | | | 96 | | | | | | -- CHEST, PA AND | | | | | | LEFT | | | | | | LATERAL: 05-04-93 D | | | | | | ictated: 05-05-93 at | | | | | | 0930 hrs. Previous films | | | | | | are not available for | | | | | | comparison. CLINICAL | | | | | | HISTORY: Preop. | | | | | | FINDINGS: On the present | | | | | | examination, the | | | | | | patient is rather | | | | | | obese. The | | | | | | bones,diaphragms and | | | | | | cardiomediastinal | | | | | | silhouette are within | | | | | | normal limits.The lungs | | | | | | are clear and the | | | | | | pulmonary vascular | | | | | | pattern is normal. | | | | | | IMPRESSION: Chest within | | | | | | normal limits. END OF | | | | | | IMPRESSION: | | | | + + + + + + + + | Specimen | + + | | + + + + + | Narrative | Performed At | + + + | Ordered by DARWIN THOMASON | | + + + + +---------+ + + | Performing | Address | City/State/Zipcode | Phone Number | | Organization | | | | + +---------+ + + | [facility] DEPARTMENT OF | | | | | RADIOLOGY | | | | + +---------+ + + documented in this encounter Visit Diagnoses Not on filedocumented in this encounter"
--- OUTSIDE RECORDS SUMMARY | ~2019-04-06 | XMS | Encounter Summary ---
Demographics + + + | Address | [address] | | | [place] [address] | + + + | Home Phone | | + + + | Preferred Language | Unknown | + + + | Marital Status | Single | + + + | Yarsani Affiliation | NON | + + + [...] + | Caroline Gil | ECON | [place], [place] | | | | | [address] | | + + + + + | Van Reeves | ECON | [address] | | | | | [place] | | | | | [address] | | + + + + + | Cherelle Houston | ECON | Unknown | | + + + + + Care Team Providers + +------+ + | Care Head Golf Professional Name | Role | Phone | + +------+ + PCP | Unavailable | + +------+ + Encounter Details +--------+ + + + + | Date | Type | Department | Care Team | Description | +--------+ + + + + | 07/05/ | Results | | Other, Faculty | | | 1994 | Only | | [phone] | | +--------+ + + + + [...] | + +--------+ + + + | US ABDOMEN COMPLETE | Routin | 07/06/1995 | | Results for this | | | e | 10:00 AM | | procedure are in the | | | | PDT | | results section. | + +--------+ + + + | UPPER EDILIA W/O KRISTEL | Routin | 07/06/1995 | | Results for this | | AIR CONTRAST | e | 9:15 AM | | procedure are in the | | | | PDT | | results section. | + +--------+ + + + | X-RAY ABDOMEN 1 VIEW | Routin | 07/05/1995 | | Results for this | | | e | 3:46 PM | | procedure are in the | | | | PDT | | results section. | + +--------+ + + + | MAMMOGRAPHY, | Routin | 07/05/1995 | | Results for this | | BILATERAL SCREEN | e | 11:53 AM | | procedure are in the | | | | PDT | | results section. | + +--------+ + + + documented in this encounter Results US ABDOMEN COMPLETE (07/06/1995 10:00 AM PDT) + + + + + + | Component | Value | Ref Range | Performed | Pathologist | | | | | At | Signature | + + + + + + | US ABDOMEN | Radiologist 1: MAYELA, | | | | | COMPLETE | JAKE Owens | | | | | | Anderson-Radiologist 2: | | | | | | JAKE PEDRO, | | | | | | MMARICRUZ NATION | | | | | | A | | | | | | | | | | | | | | | | | | [phone] | | | | | | ABDOMINAL | | | | | | ULTRASOUND: 07/06/95 | | | | | | at 10:00 Dictated | | | | | | 07/06/95 CLINICAL | | | | | | HISTORY: 40-year-old | | | | | | obese female with mid | | | | | | epigastric | | | | | | pain,particularly | | | | | | postprandial. | | | | | | FINDINGS: The liver | | | | | | is enlarged with | | | | | | diffusely increased | | | | | | echodensity. No focal | | | | | | liver parenchymal | | | | | | abnormalities are | | | | | | seen. Thegallbladder | | | | | | is distended, with no | | | | | | intraluminal gallstones, | | | | | | wallthickening or | | | | | | pericholecystic | | | | | | fluid. The | | | | | | intrahepatic | | | | | | andextrahepatic biliary | | | | | | ducts are of normal | | | | | | caliber with the common | | | | | | bileduct diameter | | | | | | measuring 3 mm. The | | | | | | spleen has normal | | | | | | uniform echotexture and | | | | | | measures 12.7 cm in | | | | | | greatest | | | | | | dimension. Both | | | | | | kidneys havenormal | | | | | | ultrasound appearance | | | | | | and contour. Good | | | | | | corticomedullarydifferen | | | | | | tiation is seen | | | | | | bilaterally. The | | | | | | right kidney measures | | | | | | 11.2cm and the left | | | | | | kidney measures 10.7 cm | | | | | | in longitudinal | | | | | | dimensions.No free | | | | | | intraperitoneal fluid is | | | | | | seen. The midline | | | | | | abdomen, particularly | | | | | | the pancreas, was not | | | | | | optimallyvisualized | | | | | | secondary to overlying | | | | | | bowel gas and | | | | | | subcutaneous fat. | | | | | | IMPRESSION: | | | | | | 1. Hepatic | | | | | | parenchymal changes | | | | | | consistent with diffuse | | | | | | fattyinfiltration. Mi | | | | | | ld hepatomegaly. | | | | | | 2. Poor visualization | | | | | | of the midline abdomen. | | | | | | END OF IMPRESSION: | | | | + + + + + + + + | Specimen | + + | | + + + + + | Narrative | Performed At | + + + | Ordered by ALBINA NOLAND M.D. | | + + + + +---------+ + + | Performing | Address | City/State/Zipcode | Phone Number | | Organization | | | | + +---------+ + + | [facility] DEPARTMENT OF | | | | | RADIOLOGY | | | | + +---------+ + + UPPER GI, W/O KRISTEL AIR CONTRAST (07/06/1995 9:15 AM PDT) + + + + + + | Component | Value | Ref Range | Performed | Pathologist | | | | | At | Signature | + + + + + + | UPPER GI, | Radiologist 1: MAYELA, | | | | | W/O KUB AIR | JAKE Owens, | | | | | CONTRAST | M.D.-Radiologist 2: | | | | | | JAKE PEDRO, | | | | | | M.DMARICRUZ CALDERON | | | | | | A | | | | | | | | | | | | | | | | | | - UPPER | | | | | | GI: 07/06/95 at 1130 | | | | | | hours. Dictated: | | | | | | 07/06/95 | | | | | | FINDINGS: The | | | | | | esophagus is normal in | | | | | | position, caliber, and | | | | | | motility.No mucosal | | | | | | lesions or reflux is | | | | | | identified. The rugal | | | | | | folds in the stomach are | | | | | | slightly prominent, but | | | | | | this islikely due to | | | | | | poor distention. No | | | | | | mucosal lesions or | | | | | | scarring | | | | | | wasidentified. The | | | | | | duodenal bulb has | | | | | | prominent folds but no | | | | | | ulcer ordeformity is | | | | | | seen. The rest of the | | | | | | duodenum is | | | | | | unremarkable. | | | | | | IMPRESSION: Prominent | | | | | | folds in duodenum bulb | | | | | | which could represent a | | | | | | duodenitis.The rest of | | | | | | the exam is | | | | | | unremarkable. END OF | | | | | | IMPRESSION: | | | | + + + + + + + + | Specimen | + + | | + + + + + | Narrative | Performed At | + + + | Ordered by ALBINA NOLAND M.D. | | + + + + +---------+ + + | Performing | Address | City/State/Zipcode | Phone Number | | Organization | | | | + +---------+ + + | [facility] DEPARTMENT OF | | | | | RADIOLOGY | | | | + +---------+ + + ABDOMEN 1 VIEW (07/05/1995 3:46 PM PDT) + + + + + + | Component | Value | Ref Range | Performed | Pathologist | | | | | At | Signature | + + + + + + | ABDOMEN, 1 | Radiologist 1: SARA, | | | | | VIEW (KRISTEL) | KATY ROBLERO, | | | | | | MARICRUZ | | | | | | | | | | | | | | | | | | [phone] | | | | | | ABDOMEN, SINGLE VIEW, | | | | | | 07/05/95 AT 1546: | | | | | | Dictated: 07/06/95 | | | | | | FINDINGS: Supine abdomen | | | | | | is submitted. The | | | | | | bowel gas pattern is | | | | | | within | | | | | | normallimits. No | | | | | | abnormal calcification | | | | | | is noted. IMPRESSION: | | | | | | Within normal limits. | | | | | | END OF IMPRESSION: | | | | | | | | | | + + + + + + + + | Specimen | + + | | + + + + + | Narrative | Performed At | + + + | Ordered by ALBINA NOLAND M.D. | | + + + + +---------+ + + | Performing | Address | City/State/Zipcode | Phone Number | | Organization | | | | + +---------+ + + | [facility] DEPARTMENT OF | | | | | RADIOLOGY | | | | + +---------+ + + MAMMOGRAPHY, BILATERAL SCREEN (07/05/1995 11:53 AM PDT) + + + + + + | Component | Value | Ref Range | Performed | Pathologist | | | | | At | Signature | + + + + + + | MAMMOGRAPHY | Radiologist 1: | | | | | , BILATERAL | JESSE MONTEMAYOR, | | | | | SCREEN | MARICRUZ BURNS | | | | | | A | | | | | | | | | | | | | | | | | | BILATERAL | | | | | | SCREENING | | | | | | MAMMOGRAM: 07/05/95 | | | | | | at 11:53 Dictated | | | | | | 07/05/95 CLINICAL | | | | | | HISTORY: 40-year-old | | | | | | asymptomatic patient | | | | | | with no familyhistory of | | | | | | breast cancer. | | | | | | FINDINGS: This is a | | | | | | baseline | | | | | | mammogram. The | | | | | | breasts are | | | | | | minimallydense and | | | | | | symmetric. No | | | | | | suspicious | | | | | | calcifications, | | | | | | spiculations ordominant | | | | | | masses are seen in | | | | | | either breast. | | | | | | IMPRESSION: Negative | | | | | | baseline | | | | | | mammogram. Recommend | | | | | | repeat mammogram in one | | | | | | year. END OF | | | | | | IMPRESSION: | | | | + + + + + + + + | Specimen | + + | | + + + + + | Narrative | Performed At | + + + | Ordered by GREG VOGEL | | + + + + +---------+ + + | Performing | Address | City/State/Zipcode | Phone Number | | Organization | | | | + +---------+ + + | [facility] DE[facility] | | | | | RADIOLOGY | | | | + +---------+ + + documented in this encounter Visit Diagnoses Not on filedocumented in this encounter"
--- OUTSIDE RECORDS SUMMARY | ~2019-04-06 | XMS | Encounter Summary ---
Demographics + + + | Address | [address] | | | [place] [address] | + + + | Home Phone | | + + + | Preferred Language | Unknown | + + + | Marital Status | Single | + + + | Latter-Day Affiliation | NON | + + + | Race | White | + + + | Ethnic Group | Not or | + + + Author + + + | Author | [facility] | + + + | Organization | [facility] | + + + | Address | Unknown | + + + | Phone | Unavailable | + + + Support + + + + + | Name | Relationship | Address | Phone | + + + + + | Caroline Gil | ECON | [place], [place] | | | | | [address] | | + + + + + | Van Reeves | ECON | [address] | | | | | [place] | | | | | [address] | | + + + + + | Cherelle Rea | ECON | Unknown | | + + + + + Care Team Providers + +------+ + | Care Fruit And Vegetable Packer Name | Role | Phone | + [...] Clinic | | | | cribed | [facility] | | | | | | Road Mailcode: [address] | | | | | | Outpatient Clinic | | | | | | [facility], [address] | | | | | | [place], [place] | | | | | | [address] | | | | | | [phone] | | | +--------+ + + + [...] as of this encounter Progress Notes Interface, Ironing Machine Operator In - 02/13/2007 7:26 AM PDT CLINIC [...] signs of systemic illness. Forest Matos M.D. Budget Controller, Medicine :joya documented in this encounter Plan of Treatment Not on filedocumented as of this encounter Visit Diagnoses Not on filedocumented in this encounter"
--- OUTSIDE RECORDS SUMMARY | ~2019-04-06 | XMS | Encounter Summary ---
Demographics + + + | Address | [address] | | | [place] [address] | + + + | Home Phone [...] + | Caroline Gil | ECON | [place], [place] | | | | | [address] | | + + + + + | Van Reeves | ECON | [address] | | | | | [place] | | | | | [address] | | + + + + + | Cherelle Rea | ECON | Unknown | | + + + + + Care Team Providers + +------+ + | Care Oxidation Engineer Name | Role | Phone | + [...] Clinic | | | | | | [facility], [address] | | | | | | [place], [place] | | | | | | [address] | | | | | | [phone] | | | +--------+ + + + [...] as of this encounter Progress Notes Interface, Clinical Medical Transcriptionist In - 02/22/2007 5:01 AM PDT CLINIC [...] after the upper GI. Forest Matos M.D. Entry Level Administrative Assistant, Medicine /link documented in this encounter Plan of Treatment Not on filedocumented as of this encounter Visit Diagnoses Not on filedocumented in this encounter"
--- OUTSIDE RECORDS SUMMARY | ~2019-04-06 | XMS | Encounter Summary ---
Demographics + + + | Address | [address] | | | [place] [address] | + + + | Home Phone | | + + + | Preferred Language | Unknown | + + + | Marital Status | Single | + + + | Spiritism Affiliation | NON | + + + | Race | White | + + + | Ethnic Group | Not or | + + + Author + + + | Author | [facility] | + + + | Organization | [facility] | + + + | Address | Unknown | + + + | Phone | Unavailable | + + + Support + + + + + | Name | Relationship | Address | Phone | + + + + + | Caroline Gil | ECON | [place], [place] | | | | | [address] | | + + + + + | Van Reeves | ECON | [address] | | | | | [place] | | | | | [address] | | + + + + + | Cherelle Rea | ECON | Unknown | | + + + + + Care Team Providers + +------+ + | Care Skein Drier Name | Role | Phone | + [...] Eusebio, | | Review | | | ME EST | Epic Dept | MD Marlen | | | | | PATIENT | | [address] | | | | | [address] | | [address] | | | | | | | [place], | | | | | | | [place] | | | | | | | [address] | | | | | | | Phone: | | | | | | | [phone] | | | | | | | Fax: | | | | | | | [phone] | + +--------+ + + + + Encounter Details +--------+---------+ + + + | Date | Type | Department | Care Team | Description | +--------+---------+ + + + | 07/31/ | Office | Neurology at | Marlen Kaplan, | Toxic metabolic | | 2018 | Visit | [facility] & | [address] | encephalopathy | | | | [place] [address] | (Primary Dx); | | | | Waldo Dunn Mail Code: | [place], [place] | Insomnia, | | | | [address] | [address] | unspecified type; | | | | [facility], | [phone] | Obstructive sleep | | | | 8th floor [place], | | apnea on CPAP | | | | [place] [address] | | | | | | [phone] | | | +--------+---------+ + + + [...] pneumonia that progressed to ARDS, transferred to [facility] 02/10 and intubated. Patient was [...] noted bilaterally. 24 Hr EEG: (03/04/2018): This director long term care EEG is abnormal due to: 1. Mild [...] <1, RBC 404, Protein 85, Glucose 114 [place] Autoimmune Encephalopathy CSF Panel: Negative [place] Autoimmune Encephalopathy Serum Panel: Negative Diagnosis: Encephalopathy, resolving Insomnia Assessment: Sarah Reeves is a 62 y.o. female with PMHx of OLIVIA on CPAP, asthma, HTN, CHF, DMT2 initially admitted to OSH on 02/07 with pneumonia that progressed to ARDS thought to be secondary to metapneumovirus, transferred to [facility] 02/10 and intubated with persistent encephal opathy [...] adjustment of SSRI, though starting seroquel at [facility] would likely provide mood benefit. Recommendations [...] to plan. Marlen Kaplan MD, PGY2 Neurology [facility] [id number] signed by Marlen Kaplan MD at 08/20/2018 [...] Seroquel 25-50mg. Lizeth Kellogg MD NEUROLOGY AT [address] Bhup[address] [place] [place] Mail Code: [place] [address] documented in thi s encounter [...]
--- OUTSIDE RECORDS SUMMARY | ~2019-04-06 | XMS | Encounter Summary ---
Demographics + + + | Address | [address] | | | [place] [address] | + + + | Home Phone [...] + | Caroline Gil | ECON | [place], [place] | | | | | [address] | | + + + + + | Van Reeves | ECON | [address] | | | | | [place] | | | | | [address] | | + + + + + | Cherelle Greeley | ECON | Unknown | | + + + + + Care Team Providers + +------+ + | Care Plastics Bench Mechanic Name | Role | Phone | + +------+ + PCP | Unavailable | + +------+ + Encounter Details +--------+ + + + + | Date | Type | Department | Care Team | Description | +--------+ + + + + | 12/20/ | Results | | Other, Faculty | | | 1994 | Only | | [phone] | | +--------+ + + + + [...] | + +--------+ + + + | CT SINUSITIS SCREEN | Routin | 01/17/1995 | | Results for this | | | e | 1:45 PM | | procedure are in the | | | | PST | | results section. | + +--------+ + + + | X-RAY CHEST 2 VIEW | Routin | 12/20/1994 | | Results for this | | | e | 4:35 PM | | procedure are in the | | | | PST | | results section. | + +--------+ + + + documented in this encounter Results CT SINUSITIS SCREEN (01/17/1995 1:45 PM PST) + + + + + + | Component | Value | Ref Range | Performed | Pathologist | | | | | At | Signature | + + + + + + | CT | Radiologist 1: | | | | | SINUSITIS | LISBETH-JUANITA CHIN, | | | | | SCREEN | KATY, | | | | | | MARICRUZ | | | | | | | | | | | | | | | | | | CT | | | | | | SINUS SCREEN, 01/17/95 AT | | | | | | 1345: Dictated: | | | | | | FINDINGS: The | | | | | | frontal, ethmoid, | | | | | | maxillary and sphenoid | | | | | | sinuses are well | | | | | | formedand well aerated | | | | | | bilaterally. There is | | | | | | some leftward deviation | | | | | | of thenasal | | | | | | septum. The | | | | | | ostiomeatal units are | | | | | | visualized on images 5 | | | | | | and 6.No bony expansion | | | | | | or bony destruction is | | | | | | noted. IMPRESSION: No | | | | | | evidence of sinusitis. | | | | | | END OF IMPRESSION: | | | | + + + + + + + + | Specimen | + + | | + + + + + | Narrative | Performed At | + + + | Ordered by MARIO CARMONA | | + + + + +---------+ + + | Performing | Address | City/State/Zipcode | Phone Number | | Organization | | | | + +---------+ + + | [facility] DEPARTMENT OF | | | | | RADIOLOGY | | | | + +---------+ + + CHEST 2 VIEW (12/20/1994 4:35 PM PST) + + + + + + | Component | Value | Ref Range | Performed | Pathologist | | | | | At | Signature | + + + + + + | CHEST, 2 | Radiologist 1: DOUGLAS, | | | | | VIEWS [place] | MARIAJOSE HAYES, | | | | | CHRIS | [place]UZ | | | | | | Roman | | | | | | | | | | | | | | | | | | CHEST, PA | | | | | | AND LATERAL | | | | | | VIEWS: 12-20-94 at 1635 | | | | | | | | | | | | hours Dictate | | | | | | d: 12-22-94 Comparison | | | | | | is made with 12-12-93. | | | | | | FINDINGS: The | | | | | | cardiomediastinal | | | | | | silhouette is unaltered. | | | | | | The lungs are grossly | | | | | | clear. No pleural | | | | | | effusions. IMPRESSION: | | | | | | Clear lungs. END OF | | | | | | IMPRESSION: | | | | + + + + + + + + | Specimen | + + | | + + + + + | Narrative | Performed At | + + + | Ordered by ENID ZAVALA M.D. | | + + + + +---------+ + + | Performing | Address | City/State/Zipcode | Phone Number | | Organization | | | | + +---------+ + + | [facility] DEPARTMENT | | | | | RADIOLOGY | | | | + +---------+ + + documented in this encounter Visit Diagnoses Not on filedocumented in this encounter"
--- OUTSIDE RECORDS SUMMARY | ~2019-04-06 | XMS | Encounter Summary ---
Demographics + + + | Address | [address] | | | [place] [address] | + + + | Home Phone | | + + + | Preferred Language | Unknown | + + + | Marital Status | Single | + + + | Zoroastrian Affiliation | NON | + + + | Race | White | + + + | Ethnic Group | Not or | + + + Author + + + | Author | [facility] | + + + | Organization | [facility] | + + + | Address | Unknown | + + + | Phone | Unavailable | + + + Support + + + + + | Name | Relationship | Address | Phone | + + + + + | Caroline Gil | ECON | [place], [place] | | | | | [address] | | + + + + + | Van Reeves | ECON | [address] | | | | | [place] | | | | | [address] | | + + + + + | Cherelle Rea | ECON | Unknown | | + + + + + Care Team Providers + +------+ + | Care Powerhouse Electrician Apprentice Name | Role | Phone | + +------+ + PCP | Unavailable | + +------+ + Encounter Details +--------+ + + + + | Date | Type | Department | Care Team | Description | +--------+ + + + + | 03/02/ | Results | Registration [id number] | | | | 1994 | Only | [address] | | | | | | [facility] Mailcode: | | | | | | [address] [place], [place] | | | | | | [address] | | | | | | [phone] | | | +--------+ + + + [...] | CHEMISTRY TESTS 4 | Routin | 03/02/1995 | | Results for this | | | e | 5:06 PM | | procedure are in the | | | | PDT | | results section. | + +--------+ + + + documented in this encounter Results CHEMISTRY TESTS 4 (03/02/1995 5:06 PM PDT) + + + + + + | Component | Value | Ref Range | Performed | Pathologist | | | | | At | Signature | + + + + + + | CALCULATED | 8.3 (H) | % | | | | HB A1C | | | | | + + + + + + | GLYCOSYLATE | 11.9 (H) | % | | | | D HB.TOTAL | | | | | + + + + + + + + | Specimen | + + | | + + + + + + + | Performing | Address | City/State/Zipcode | Phone Number | | Organization | | | | + + + + + | [facility] | [address] | [place] [address] | | | PATHOLOGY | [address] | | | + + + + + documented in this encounter Visit Diagnoses Not on filedocumented in this encounter"
--- OUTSIDE RECORDS SUMMARY | ~2019-04-06 | XMS | Encounter Summary ---
Demographics + + + | Address | [address] | | | [place] [address] | + + + | Home Phone | | + + + | Preferred Language | Unknown | + + + | Marital Status | Single | + + + | Oriental Orthodox Affiliation | NON | + + + | Race | White | + + + | Ethnic Group | Not or | + + + Author + + + | Author | [facility] | + + + | Organization | [facility] | + + + | Address | Unknown | + + + | Phone | Unavailable | + + + Support + + + + + | Name | Relationship | Address | Phone | + + + + + | Caroline Gil | ECON | [place], [place] | | | | | [address] | | + + + + + | Van Reeves | ECON | [address] | | | | | [place] | | | | | [address] | | + + + + + | Cherelle Rea | ECON | Unknown | | + + + + + Care Team Providers + +------+ + | Care Track Inspecting Supervisor Name | Role | Phone | + +------+ + PCP | Unavailable | + +------+ + Encounter Details +--------+ + + + + | Date | Type | Department | Care Team | Description | +--------+ + + + + | 12/21/ | Results | LAB CORE [address] | Diogenes Canales | | | 1994 | Only | [address] | [phone] | | | | | Road [place], [place] | | | | | | [address] | | | | | | [phone] | | | +--------+ + + + [...] + | ARCHIVE CYTOLOGY | Routin | 12/21/1994 | | Results for this | | | e | | | procedure are in the | | | | | | results section. | + +--------+ + + + documented in this encounter Results ARCHIVE CYTOLOGY (12/21/1994) + + + + + + | [...] CYTOLOGY | | | | | | CLINICAL | | | | | | HISTORY: Source | | | | | | of material:Vagina | | | | | | Number of Slides:1Reason | | | | | | for examination: | | | | | | RoutineLast Menstrual | | | | | | Period: 18 mos | | | | | | agoPrevious Diagnoses | | | | | | and/or Therapy: | | | | | | Hysterectomy for | | | | | | EndometrialCa | | | | | | FINAL | | | | | | DIAGNOSIS | | | | | | I. SPECIMEN | | | | | | ADEQUACY:Satisfactory | | | | | | for evaluation | | | | | | II. GENERAL | | | | | | CATEGORIZATION:Within | | | | | | Normal Limits | | | | | | Case screened by: Ellie | | | | | | Tucker Garza. | | | | | | My [...] | + + + + + | [facility] | [address] | [place] [address] | | | PATHOLOGY | [address] | | | + + + + + documented in this encounter Visit Diagnoses Not on filedocumented in this encounter"
--- OUTSIDE RECORDS SUMMARY | ~2019-04-06 | XMS | Encounter Summary ---
Demographics + + + | Address | [address] | | | [place] [address] | + + + | Home Phone | | + + + | Preferred Language | Unknown | + + + | Marital Status | Single | + + + | Anglican Affiliation | NON | + + + | Race | White | + + + | Ethnic Group | Not or | + + + Author + + + | Author | [facility] | + + + | Organization | [facility] | + + + | Address | Unknown | + + + | Phone | Unavailable | + + + Support + + + + + | Name | Relationship | Address | Phone | + + + + + | Caroline Gil | ECON | [place], [place] | | | | | [address] | | + + + + + | Van Reeves | ECON | [address] | | | | | [place] | | | | | [address] | | + + + + + | Cherelle Rea | ECON | Unknown | | + + + + + Care Team Providers + +------+ + | Care Maintenance Director Name | Role | Phone | + [...] | Only | [address] | [phone] | | | | | Road [place], [place] | | | | | | [address] | | | | | | [phone] | | | +--------+ + + + [...] + + + + + | [facility] | [address] | [place] [address] | | | PATHOLOGY | [address] | | | + + + + + documented in this encounter Visit Diagnoses Not on filedocumented in this encounter"
--- OUTSIDE RECORDS SUMMARY | ~2019-04-06 | XMS | Clinical Summary ---
Demographics + + + | Address | [address] | | | [place] [address] | + + + | Home Phone [...] + | Caroline Gil | ECON | [place], [place] | | | | | [address] | | + + + + + | Van Reeves | ECON | [address] | | | | | [place] | | | | | [address] | | + + + + + | Cherelle Rea | ECON | Unknown | | + + + + + Care Team Providers + +------+ + | Care Boat Hoist Operator Name | Role | Phone | + +------+ + | Jamel Keyes NP | PP | | + +------+ + Source Comments [facility] is fully live [facility] and [facility] Allergies No Known Allergies Medications + + + +---------+------+------+-------+ | Medication | Sig | Dispensed | Refills | Star | End | Statu | | | | | | t | Date | s | | | | | | Date | | | + + + +---------+------+------+-------+ | sertraline 100 mg | Take 100 mg by mouth | | 0 | | | Activ | | oral tablet | once daily. | | | | | e | + + + +---------+------+------+-------+ | omeprazole 20 mg | Take 20 mg by mouth | | 0 | | | Activ | | oral capsule,delayed | once daily. | | | | | e | | release(DR/EC) | | | | | | | + + + +---------+------+------+-------+ | albuterol 90 | Inhale 2 puffs by | | 0 | | | Activ | | mcg/actuation | mouth every six | | | | | e | | inhalation HFA | hours as needed. | | | | | | | aerosol inhaler | | | | | | | + + + +---------+------+------+-------+ | | Inhale 2 puffs by | | 0 | | | Activ | | budesonide-formotero [...] | | + + + +---------+------+------+-------+ | potassium chloride | Take 10 mEq by mouth | | 0 | | | Activ | | SR 10 mEq oral | once daily. | | | | | e | | tablet,ER | | | | | | | | particles/crystals | | | | | | | + + + +---------+------+------+-------+ | ondansetron ODT 4 | Dissolve 4 mg on | | 0 | | | Activ | | mg oral | tongue and swallow | | | | | e | | tablet,disintegratin | three times daily as | | | | | | | g | needed. | | | | | | + + + +---------+------+------+-------+ | amLODIPine 10 mg | Take 1 tablet by | 30 | 1 | 05/0 | | Activ | | oral tablet | mouth once daily. | tablet | | 4/20 | | e | | | | | | 18 | | | + + + +---------+------+------+-------+ | aspirin chewable | Chew and swallow 1 | 30 | 1 | 05/0 | | Activ | | 81 mg oral | tablet once daily. | tablet | | 4/20 | | e | | tablet,chewable | | | | 18 | | | + + + +---------+------+------+-------+ | enoxaparin 40 | Inject 0.4 mL under | | 0 | 05/0 | | [...] | + + + +---------+------+------+-------+ | insulin aspart | Inject 10 Units | | 0 | 05/0 | | [...] + +---------+------+------+-------+ | insulin glargine | Inject 20 Units | | 0 | 05/0 | | [...] | + + + +---------+------+------+-------+ | lisinopril 10 mg | Take 1 [...] + + + | Moderate protein-calorie malnutrition | 03/10/2018 | + + + | T2DM (type 2 diabetes mellitus) | 02/25/2018 | + + + | Abnormal ventricular wall motion | 02/25/2018 | + + + | (HFpEF) heart failure with preserved ejection fraction | 02/21/2018 | + + + | ARDS (adult respiratory distress syndrome) | 02/18/2018 | + + + | Pneumonia due to human metapneumovirus (hMPV) | 02/18/2018 | + + + | Severe obesity (BMI >= 40) | 02/18/2018 | + + + | Encephalomyelitis, autoimmune | 02/18/2018 | + + + | SVT (supraventricular tachycardia) | 02/18/2018 | + + + | [...] | 8 | + + + + Encounters +--------+ + + + + | Date | Type | Specialty | Care Team | Description | +--------+ + + + + | 02/07/ | Abstract | | Clinic, Surgery | | | 2018 | | | | | +--------+ + + + + from Last 3 Months Immunizations + + + + | Name | Administration Dates | Next Due | + + + [...] C (97.3 F) | 03/15/2018 8:18 AM | | | | | PDT | | + + + + + | Respiratory Rate | 16 | 03/15/2018 8:18 AM | | | | | PDT | | + + + + + | Oxygen Saturation | 100% | 03/15/2018 8:18 AM | | | | | PDT [...] cm (5' 6.14") | 02/19/2018 2:31 AM | | | | | PDT | | + + + + + | Body Mass Index | 44.68 | 02/19/2018 2:31 AM | | | | | PDT | | + + + + + Plan of Treatment + + + + + | Health Maintenance | Due Date | Last Done | Comments | + + + + + | Pneumococcal | | | | | vaccination (1 of 1 | 1 | | | | - PPSV23) | | | | + + + + + | Influenza (Flu) | | 08/28/2016, 02/02/2016, | | | vaccination (Season | 9 | 09/15/2014, Additional history | | | Ended) | | exists | | + + + + + Results Not on filefrom Last 3 Months Insurance + +--------+ +--------+ + +--------+ | Payer | Benefi | Subscriber | Effect | Phone | Address | Type | | | t Plan | ID | neo | | | | | | / | | Dates | | | | | | Group | | | | | | + +--------+ +--------+ + +--------+ | MEDICARE | MEDICA | xxxxxxxxxxx | | [phone] | [address] | [address] | | | RE A & | | [phone] | | | [address] | | esent | | [place], [place] | | | | | | | | [address] | | + +--------+ +--------+ + +--------+ | | CHAMPV | xxxxxxxxx | 10/25/ | [phone] | | Indemn | | | A | | 2009-P | 7 | | ity | | | | | resent | | | | + +--------+ +--------+ + +--------+ + +--------+ +--------+ + + | Guarantor Name | Accoun | Relation to | Date | Phone | Billing Address | | | t Type | Patient | of | | | | | | | | | | + +--------+ +--------+ + + | Sarah Reeves | Person | Self [birth year] | [address] | | | al/Fam | | 1954 | [id number] | [place] [address] | | | craig | | | 5 (Home) | | + +--------+ +--------+ + + | Sarah Reeves | [place] | Self | [birth year] | [address] | | | Sponso | | 1954 | [id number] | [place] [address] | | | red | | | 5 (Home) | | + +--------+ +--------+ + + Advance Directives + + + + + | Code Status | Date | Date | Comments | | | Activated | Inactivated | | + + + + + | Full Code | 02/11/2018 | 03/15/2018 | | | | 12:19 AM | 4:26 PM | | + + + + +
--- OUTSIDE RECORDS SUMMARY | ~2019-04-06 | XMS | Encounter Summary ---
Demographics + + + | Address | [address] | | | [place] [address] | + + + | Home Phone | | + + + | Preferred Language | Unknown | + + + | Marital Status | Single | + + + | Church Affiliation | NON | + + + | Race | White | + + + | Ethnic Group | Not or | + + + Author + + + | Author | [facility] | + + + | Organization | [facility] | + + + | Address | Unknown | + + + | Phone | Unavailable | + + + Support + + + + + | Name | Relationship | Address | Phone | + + + + + | Caroline Gil | ECON | [place], [place] | | | | | [address] | | + + + + + | Van Reeves | ECON | [address] | | | | | [place] | | | | | [address] | | + + + + + | Cherelle Rea | ECON | Unknown | | + + + + + Care Team Providers + +------+ + | Care Cloth Folder Hand Name | Role | Phone | + +------+ + PCP | Unavailable | + +------+ + Encounter Details +--------+ + + + + | Date | Type | Department | Care Team | Description | +--------+ + + + + | 05/16/ | Results | LAB [facility]ORE [address] | Diogenes Canales | | | 1992 | Only | [address] | [phone] | | | | | Road [place], [place] | | | | | | [address] | | | | | | [phone] | | | +--------+ + + + [...] + | ARCHIVE CYTOLOGY | Routin | 05/16/1993 | | Results for this | | | e | | | procedure are in the | | | | | | results section. | + +--------+ + + + | SURGICAL PATHOLOGY | Routin | 05/16/1993 | | Results for this | | | e | | | procedure are in the | | | | | | results section. | + +--------+ + + + documented in this encounter Results SURGICAL PATHOLOGY (05/16/1993) + + + + + + | Component | Value | Ref Range | Performed | Pathologist | | | | | At | Signature | + + + + + + | SURGICAL | SOURCE OF SPECIMEN: SEE | | [facility] | | | PATHOLOGY | RESULTS | | DEPARTMENT | | | | Preliminary History:OR | | OF | | | | CONSULTATIONCALLED TO | | PATHOLOGY | | | | EVALUATE DEPTH OF | | | | | | ENDOMETRIAL CARCINOMA | | | | | | INVASION INTO UTERUS | | | | | | -REPORTED DEPTH AT | | | | | | 30-40% OF MYOMETRIAL | | | | | | THICKNESS | | | | | | CLINICAL HISTORYThe | | | | | | patient is a 37 year old | | | | | | 3, para 2, | | | | | | abortus 1, woman who | | | | | | had18 months of | | | | | | amenorrhea followed by | | | | | | heavy vaginal bleeding | | | | | | for 2-3 daysin February, | | | | | | 1992. 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 | | | | | | GROSS DESCRIPTIONFour | | | | | | specimens are received | | | | | | labeled as | | | | | | follows: #1 | | | | | | UTERUS, CERVIX, TWO | | | | | | TUBES, TWO OVARIES: The | | | | | | specimen is | | | | | | receivedfresh and | | | | | | consists of an intact | | | | | | uterus and attached | | | | | | bilateral fallopiantubes | | | | | | and ovaries. The uterus | | | | | | weighs 120 gms. and | | | | | | measures 7 cm. inlength, | | | | | | 5 cm. in width, with a | | | | | | 1.8 cm. myometrial depth | | | | | | and a 0.2 | | | | | | cm.endometrial | | | | | | thickness. The | | | | | | endometrial cavity | | | | | | measures 0.2 cm. in | | | | | | depth.Emanating from the | | | | | | anterior endometrium | | | | | | and invading into the | | | | | | myometriumto a depth of | | | | | | 30-40% of the myometrial | | | | | | thickness is a large 4 | | | | | | cm. ingreatest | | | | | | dimension, bustillos, polypoid | | | | | | mass. This mass does | | | | | | not grosslyextend into | | | | | | the endocervical canal. | | | | | | The | | | | | | posteriorendometrial/end | | | | | | ocervical junction shows | | | | | | a small 1 cm. in | | | | | | greatestdimension, bustillos | | | | | | polypoid lesion. The | | | | | | attached bilateral | | | | | | tubes, ovariesand | | | | | | parametrium are | | | | | | unremarkable. The cervix | | | | | | in unremarkable. | | | | | | Surgicalmargins are | | | | | | inked black. The | | | | | | fallopian tubes | | | | | | bilaterally have | | | | | | previouslybeen ligated | | | | | | by martha and are | | | | | | cystically dilated on | | | | | | either side of | | | | | | theligature. The right | | | | | | ovary measures 3 x 1.4 x | | | | | | 2 cm. and shows one | | | | | | smalldark brown nodule | | | | | | on its surface and a 1 | | | | | | cm. in greatest | | | | | | dimensioncystic space | | | | | | filled with | | | | | | serosanguineous type | | | | | | fluid. The left | | | | | | ovarymeasures 2.3 x 1.5 | | | | | | x 1 cm. and is | | | | | | unremarkable. #2 | | | | | | ANTERIOR VAGINAL | | | | | | MARGIN: The specimen is | | | | | | received in SAMMY fixative | | | | | | andconsists of a | | | | | | fragment of vagina | | | | | | measuring 1.5 x 0.4 x | | | | | | 0.4 cm. It isinked in | | | | | | its entirety and | | | | | | serially | | | | | | sectioned. | | | | | | #3 POSTERIOR | | | | | | VAGINAL MARGIN: The | | | | | | specimen is received in | | | | | | SAMMY fixative andconsists | | | | | | of a fragment of vagina | | | | | | measuring 1.5 x 1 x 0.5 | | | | | | cm. Thespecimen is inked | | | | | | in its entirety and | | | | | | serially | | | | | | sectioned. #4 | | | | | | LEFT PARAMETRIUM: The | | | | | | specimen is received in | | | | | | SAMMY fixative andconsists | | | | | | of a 1.1 x 0.7 x 0.3 cm. | | | | | | pink-bustillos fragment of | | | | | | tissue which isserially | | | | | | sectioned. Slide | | | | | | Index:UTERUS, CERVIX, | | | | | | TWO TUBES, TWO | | | | | | OVARIES:cassette 1, 6:00 | | | | | | cervixcassette 2, 12:00 | | | | | | cervixcassette 3-4, | | | | | | uterus and tumorcassette | | | | | | 5, polypoid posterior | | | | | | lesioncassette 6, | | | | | | posterior | | | | | | endometriumcassette 7, | | | | | | endocervix below | | | | | | tumorcassette 8, right | | | | | | ovary and tubecassette | | | | | | 9, left ovary and | | | | | | tubecassettes 10-11, | | | | | | right | | | | | | parametriumcassette 12, | | | | | | left parametriumANTERIOR | | | | | | VAGINAL MARGIN:cassette | | | | | | 13, specimen submitted | | | | | | in totoPOSTERIOR VAGINAL | | | | | | MARGIN:cassette 14, | | | | | | specimen submitted in | | | | | | totoLEFT | | | | | | PARAMETRIUM:cassette 15, | | | | | | specimen submitted in | | | | | | totoDictated by: Keaton | | | | | | Romien, M.Sushil./dj | | | | | | FINAL | | | | | | DIAGNOSISUTERUS, CERVIX, | | | | | | TWO TUBES AND TWO | | | | | | OVARIES: CERVIX: | | | | | | ENDOCERVICAL | | | | | | LEIOMYOMA ENDOMETRIUM | | | | | | : GRADE I | | | | | | ENDOMETRIAL | | | | | | ADENOCARCINOMA WITH LESS | | | | | | THAN | | | | | | ONE-THIRD INV | | | | | | ASION SIMPLE | | | | | | COMPLEX HYPERPLASIA | | | | | | WITHOUT | | | | | | ATYPIA MYOMETRIUM: | | | | | | ADENOMYOSIS SPEC | | | | | | IMENS LABELED RIGHT AND | | | | | | LEFT OVARIES AND RIGHT | | | | | | AND LEFT FALLOPIAN | | | | | | TUBES: NO | | | | | | DIAGNOSTIC | | | | | | ABNORMALITIESSPECIMENS | | | | | | LABELED ANTERIOR VAGINAL | | | | | | MARGIN AND POSTERIOR | | | | | | VAGINAL | | | | | | MARGIN: HISTOLOGICALL | | | | | | Y UNREMARKABLE VAGINAL | | | | | | MUCOSALEFT | | | | | | PARAMETRIUM: FIBROUS | | | | | | TISSUE WITHOUT | | | | | | TUMOR Case | | | | | | reviewed by: Imtiaz | | | | | | Anish Simeon, | | | | | | M.D. :celia | | | | | | My [...] | + + + + + | [facility] | [address] | [place] [address] | | | PATHOLOGY | [address] | | | + + + + + ARCHIVE CYTOLOGY (05/16/1993) + + + + + + | Component | Value | Ref Range | Performed | Pathologist | | | | | At | Signature | + + + + + + | ARCHIVE | SOURCE OF SPECIMEN: SEE | | [facility] | | | CYTOLOGY | RESULTS | | DEPARTMENT | | | | Preliminary | | OF | | | | History:NONGYNECOLOGIC | | PATHOLOGY | | | | CYTOLOGY Body | | | | | | Site: | | | | | | PERITONEAL Sp | | | | | | ecimen Type: PERITONEAL | | | | | | WASHING | | | | | | Reason for | | | | | | Procedure: Rule out | | | | | | organisms Rule out | | | | | | inflammatory | | | | | | changes Rule out | | | | | | malignancy | | | | | | xx Rule out | | | | | | metastatic | | | | | | disease Routine Fo | | | | | | llow-up Not | | | | | | given | | | | | | FINAL CYTOLOGY | | | | | | INTERPRETATION | | | | | | NO MALIGNANT | | | | | | CELLS IDENTIFIEDBLOODFEW | | | | | | INFLAMMATORY | | | | | | CELLS | | | | | | NOTE: SPECIMEN JAR | | | | | | LABELLED PAN SANCHES, | | | | | | BUT VERIFIED TO RICKEY | | | | | | LAZ BY RESIDENT | | | | | | RENA PRINGLE. | | | | | | 05/18/93. | | | | | | | | | | | | | | | | | | LAZ Claudio | | | | | | electronic [...] | + + + + + | [facility] | [address] | [place] [address] | | | PATHOLOGY | [address] | | | + + + + + documented in this encounter Visit Diagnoses Not on filedocumented in this encounter"
--- OUTSIDE RECORDS SUMMARY | ~2019-04-06 | XMS | Encounter Summary ---
Demographics + + + | Address | [address] | | | [place] [address] | + + + | Home Phone | | + + + | Preferred Language | Unknown | + + + | Marital Status | Single | + + + | Anabaptism Affiliation | NON | + + + | Race | White | + + + | Ethnic Group | Not or | + + + Author + + + | Author | [facility] | + + + | Organization | [facility] | + + + | Address | Unknown | + + + | Phone | Unavailable | + + + Support + + + + + | Name | Relationship | Address | Phone | + + + + + | Caroline Gil | ECON | [place], [place] | | | | | [address] | | + + + + + | Van Reeves | ECON | [address] | | | | | [place] | | | | | [address] | | + + + + + | Cherelle Rea | ECON | Unknown | | + + + + + Care Team Providers + +------+ + | Care Traffic Maintenance Supervisor Name | Role | Phone | + +------+ + | Jamel Keyes NP | PCP | | + +------+ + Encounter Details +--------+ + + + + | Date | Type | Department | Care Team | Description | +--------+ + + + + | 02/13/ | Document-Sc | UNKNOWN DEPARTMENT | Unknown . | | | 2018 | anned | [address] | | | | | | [facility] | | | | | | [place], [place] | | | | | | [address] | | | +--------+ + + + [...]
--- OUTSIDE RECORDS SUMMARY | ~2019-04-06 | XMS | Encounter Summary ---
Demographics + + + | Address | [address] | | | [place] [address] | + + + | Home Phone | | + + + | Preferred Language | Unknown | + + + | Marital Status | Single | + + + | Sikhism Affiliation | NON | + + + [...] + | Caroline Gil | ECON | [place], [place] | | | | | [address] | | + + + + + | Van Reeves | ECON | [address] | | | | | [place] | | | | | [address] | | + + + + + | Cherelle Rea | ECON | Unknown | | + + + + + Care Team Providers + +------+ + | Care Carriage Feeder Name | Role | Phone | + [...] [place] | | | | | | [facility] Mailcode: | | | | | | [id number] [place], [place] | | | | | | [address] | | | | | | [phone] | | | +--------+ + + + [...] + + + + + | [facility] | [address] | [place] [address] | | | PATHOLOGY | [address] | | | + + + + + documented in this encounter Visit Diagnoses Not on filedocumented in this encounter"
--- OUTSIDE RECORDS SUMMARY | ~2019-04-06 | XMS | Encounter Summary ---
Demographics + + + | Address | [address] | | | [place] [address] | + + + | Home Phone | | + + + | Preferred Language | Unknown | + + + | Marital Status | Single | + + + | Amish Affiliation | NON | + + + | Race | White | + + + | Ethnic Group | Not or | + + + Author + + + | Author | [facility] | + + + | Organization | [facility] | + + + | Address | Unknown | + + + | Phone | Unavailable | + + + Support + + + + + | Name | Relationship | Address | Phone | + + + + + | Caroline Gil | ECON | [place], [place] | | | | | [address] | | + + + + + | Van Reeves | ECON | [address] | | | | | [place] | | | | | [address] | | + + + + + | Cherelle Rea | ECON | Unknown | | + + + + + Care Team Providers + +------+ + | Care Fish Seiner Name | Role | Phone | + +------+ + PCP | Unavailable | + +------+ + Encounter Details +--------+ + + + + | Date | Type | Department | Care Team | Description | +--------+ + + + + | 07/05/ | Office | General Internal | Note, Outpatient | Progress Note | | 1994 | Visit-Trans | Medicine [address] | Clinic | | | | cribed | [facility] | | | | | | Road Mailcode: [address] | | | | | | Outpatient Clinic | | | | | | [facility] | | | | | | [place], [place] | | | | | | [address] | | | | | | [phone] | | | +--------+ + + + [...] as of this encounter Progress Notes Interface, Corporate Responsibility Officer In - 02/22/2007 5:01 AM PDT CLINIC DATE: 07/05/95 GENERAL MEDICINE CLINIC: SUBJECTIVE: Ms. Cuevas comes in today complaining of increasing nausea and vomiting. Her epigastric pains, which a week or two ago, were just associated with meals had now become more constant. Of more distress to her, however, is her inability to keep food or drink down for the last couple of days. She was apparently seen in another Emergency Room two nights ago after vomiting several times throughout the day. She brings in laboratories showing a white blood cell count 11,500, hematocrit 49.5, and normal electrolytes except for a potassium of 5.5. She reports that in the last two days she has had persistent nausea with emesis of nearly anything she tries to eat or drink. She has been barely been able to keep any fluids down. She had tried some sort suppositories for nausea but they have not been helpful. She has not felt feverish and denies melena and bright red blood per rectum. She has had water stools today only. She has had not had cough, shortness of breath, pleurisy, or chest pains. She still locates most of her symptoms in the high to mid-epigastric area. OBJECTIVE: PHYSICAL EXAMINATION: VITAL SIGNS: Blood pressure lying 124/90 with a pulse of 116. Standing 110/84 with a pulse of 120. Temperature 100.3. GENERAL: She looks generally well, although somewhat tired. She is in no acute distress. HEENT: There are no oral lesions. LUNGS: Clear to auscultation and percussion. HEART: Regular rate and rhythm, S1 and S2, without murmurs, rubs, or gallops. ABDOMEN: Protuberant. She still complains of tenderness in the epigastrium but there is no guarding or rebound. There is no organomegaly that I can identify. LABORATORIES: Dip urine in clinic today was positive for protein and ketones but negative for blood, glucose, white blood cells, and nitrates. KUB to my preliminary examination shows a paucity of air and a possibly enlarged kidney on the left side but no air-fluid levels, bowel distention, or free air. Amylase was 32, electrolytes are unremarkable, and her potassium has decreased to 4.3. Glucose was 163. Liver function tests are normal. Her white blood cell count is elevated at 13,800 with a differential showing neutrophils but no bands noted. Her hematocrit is 48.2. Electrocardiogram in clinic today shows a sinus tachycardia at a rate of 108 but is otherwise normal. ASSESSMENT: The etiology of her epigastric pain still seems most likely to be peptic ulcer disease given her past history of duodenal ulcer. However, this does not correlate well with her fever and elevated white blood cell count. I am at a loss to explain these today. She looks generally well. She received 500 cc of normal saline by I.V. in clinic today and felt somewhat better after that. A repeat temperature as she was leaving clinic was 100 degrees. I have a low suspicion that she could have appendicitis, a perforated ulcer, or an acute cholecystitis. Pneumonia also seems unlikely without any respiratory symptoms or pleurisy. PLANS: I plan at this point to see her back again tomorrow morning at 8:30. I have asked her to take a Compazine suppository tonight and to try to drink fluids. She is to call for help if she has increasing fever or any other symptoms. Forest Matos M.D. Sewer Repairer, Medicine /jacqueline P STAT documented in this encounter Plan of Treatment Not on filedocumented as of this encounter Visit Diagnoses Not on filedocumented in this encounter"
--- OUTSIDE RECORDS SUMMARY | ~2019-04-06 | XMS | Encounter Summary ---
Demographics + + + | Address | [address] | | | [place] [address] | + + + | Home Phone | | + + + | Preferred Language | Unknown | + + + | Marital Status | Single | + + + | Tenriism Affiliation | NON | + + + | Race | White | + + + | Ethnic Group | Not or | + + + Author + + + | Author | [facility] | + + + | Organization | [facility] | + + + | Address | Unknown | + + + | Phone | Unavailable | + + + Support + + + + + | Name | Relationship | Address | Phone | + + + + + | Caroline Gil | ECON | [place], [place] | | | | | [address] | | + + + + + | Van Reeves | ECON | [address] | | | | | [place] | | | | | [address] | | + + + + + | Cherelle Rea | ECON | Unknown | | + + + + + Care Team Providers + +------+ + | Care Power Tool Repair Technician Name | Role | Phone | [...] Clinic | | | | cribed | [facility] | | | | | | Road Mailcode: [address] | | | | | | Outpatient Clinic | | | | | | [facility], [address] | | | | | | [place], [place] | | | | | | [address] | | | | | | [phone] | | | +--------+ + + + [...] as of this encounter Progress Notes Interface, Forestry Professor In - 02/22/2007 5:01 AM PDT CLINIC [...] or any other symptoms. Forest Matos M.D. Director [employer], Medicine /jacqueline P STAT documented in this encounter Plan of Treatment Not on filedocumented as of this encounter Visit Diagnoses Not on filedocumented in this encounter"
--- OUTSIDE RECORDS SUMMARY | ~2019-04-06 | XMS | Encounter Summary ---
Demographics + + + | Address | [address] | | | [place] [address] | + + + | Home Phone | | + + + | Preferred Language | Unknown | + + + | Marital Status | Single | + + + | Lutheran Affiliation | NON | + + + | Race | White | + + + | Ethnic Group | Not or | + + + Author + + + | Author | [facility] | + + + | Organization | [facility] | + + + | Address | Unknown | + + + | Phone | Unavailable | + + + Support + + + + + | Name | Relationship | Address | Phone | + + + + + | Caroline Gil | ECON | [place], [place] | | | | | [address] | | + + + + + | Van Reeves | ECON | [address] | | | | | [place] | | | | | [address] | | + + + + + | Cherelle Rea | ECON | Unknown | | + + + + + Care Team Providers + +------+ + | Care Coremaker Apprentice Name | Role | Phone | + +------+ + PCP | Unavailable | + +------+ + Encounter Details +--------+ + + + + | Date | Type | Department | Care Team | Description | +--------+ + + + + | 05/17/ | Office | General Internal | Note, Outpatient | Progress Note | | 1994 | Visit-Trans | Medicine [address] | Clinic | | | | cribed | [facility] | | | | | | Road Mailcode: L475 | | | | | | Outpatient Clinic | | | | | | [facility], [address] | | | | | | [place], [place] | | | | | | [address] | | | | | | [phone] | | | +--------+ + + + [...] as of this encounter Progress Notes Interface, Window Machine Operator In - 02/24/2007 5:01 AM PDT CLINIC DATE: 05/16/95 INTERNAL MEDICINE CLINIC Ms. Cuevas is a 40-year-old woman and is referred by Dr. Edith Javier for establishment of primary care. She complains of intermittent right hip pain for several years. She suspects that she has arthritis in her hip and has learned to live with the pain. She had been on nonsteroidals for awhile but discontinued them when she started metformin. She has tried to take Tylenol but this has not provided much relief. She also complains of recurrent epigastric pain similar to that which she had in 1987 when she had a pyloric channel ulcer on upper gastrointestinal series. The pain is mild now compared to then, but it seems to be increasing to some degree in severity. She also complains of a ganglion on her right wrist. PAST MEDICAL HISTORY: 1. Type II diabetes mellitus. Diagnosis was in approximately 1991. She has neuropathy but no evidence of retinopathy on an eye exam in May 1994. She checks her blood sugars two times a day and they have recently been running in the 130s to 140s on both Metformin and Glyburide. She had a trial of Metformin alone but her blood sugars arose to over 300. 2. Uterine cancer, , stage IB, grade 1. Treated with hysterectomy and bilateral salpingo-oophorectomy. Follow up has showed no evidence of recurrence including a negative pap smear in December 1994. 3. History of pulmonary embolism in the 1970s. She was apparently ill for about six months and spent a lot of time in bed while she was also taking control pills. She had a pulmonary embolism the night before she was scheduled to have a bowel resection. She was treated with heparin and then had her bowel resection a month later. 4. Bowel resection, as noted above, for unclear reasons. 5. Pyloric channel ulcer, 1987, noted on upper gastrointestinal series. MEDICATIONS: Metformin and Glyburide 5 mg q.d. ALLERGIES: None. HABITS: Smoking, alcohol and drugs - none. FAMILY HISTORY: Notable for diabetes but there is no family history of cancer. SOCIAL HISTORY: She lives with her aunt in a trailer. She has no other family members in [place]. 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 PHYSICAL EXAMINATION: Weight 269 lb, blood pressure 132/84, pulse 98. GENERAL: Woman in no acute distress with notable android obesity. HEENT: There are no oral lesions. NECK: Supple without nodes. LUNGS: Clear to auscultation and percussion. HEART: There is a regular rate and rhythm. S1, S2 without murmurs, gallops or rubs. BREAST: Deferred. ABDOMEN: Protuberant without obvious organomegaly. EXTREMITIES: No edema. IMPRESSION: 1. Type II diabetes mellitus. Will check a chemistry battery today to insure that she has no complications from metformin. She should continue checking her blood sugars twice a day and has a good understanding of acceptable levels. Her hemoglobin A1C in February 1995 was 8.3. 2. Hip pain. This is probably early osteoarthritis, and we will evaluate it more if she has increasing symptoms. 3. Right wrist ganglion. We did not discuss this issue today. 4. Obesity. She thinks she would be able to lose 15-20 lb fairly easily and I have encouraged her to do that. She is pessimistic about being able to lose more weight than that. Follow up in six months. Forest Matos M.D. Material Handling Warehouse Supervisor, Medicine :joanna cc: EDITH JAVIER MD DEPARTMENT OF MEDICINE [facility] documented in this encounter Plan of Treatment Not on filedocumented as of this encounter Visit Diagnoses Not on filedocumented in this encounter"
--- OUTSIDE RECORDS SUMMARY | ~2019-04-06 | XMS | Encounter Summary ---
Demographics + + + | Address | [address] | | | [place] [address] | + + + | Home Phone | | + + + | Preferred Language | Unknown | + + + | Marital Status | Single | + + + | Faith Affiliation | NON | + + + | Race | White | + + + | Ethnic Group | Not or | + + + Author + + + | Author | [facility] | + + + | Organization | [facility] | + + + | Address | Unknown | + + + | Phone | Unavailable | + + + Support + + + + + | Name | Relationship | Address | Phone | + + + + + | Caroline Gil | ECON | [place], [place] | | | | | [address] | | + + + + + | Van Reeves | ECON | [address] | | | | | [place] | | | | | [address] | | + + + + + | Cherelle Rea | ECON | Unknown | | + + + + + Care Team Providers + +------+ + | Care Assistant Professor Of Nursing Name | Role | Phone | + +------+ + PCP | Unavailable | + +------+ + Encounter Details +--------+ + + + + | Date | Type | Department | Care Team | Description | +--------+ + + + + | 06/27/ | Transcribed | Allergy Clinic at | Dictation, Other | Transcribed | | 1994 | | [facility] [address] | | | | | | [facility] | | | | | | Mailcode: [address] | | | | | | [facility] | | | | | | [facility], | | | | | | [place] [address] | | | | | | [phone] | | | +--------+ + + + [...] as of this encounter Progress Notes Interface, Media Supervisor In - 02/22/2007 5:01 AM PDT [facility] [address], [place] [address] or Department of Obstetrics and Gynecology, L466 Oncology [facility] June 27, 1995 CHILANGO ASIF MD [address] [place] [address] [place] [address] RE:Sarah Cuevas MR#:[id number] Dear Doctor Chantal: Sarah Cuevas is a 40-year-old 3, para 2-1-2 female, who is now 25 months status post a total abdominal hysterectomy with bilateral salpingo-oophorectomy, and upper vaginectomy for a stage IB, Grade 1 endometrial adenocarcinoma. She was seen in the [facility] today for routine follow-up. Sarah has done very well since her surgery with complaints today only of some upper abdominal pain, which she notes is worse after meals. She also notes some nausea after eating. The pain she describes is sharp like a bad cramp. She has normal bowel movements with a good appetite. She denies any bleeding or discharge. She receives follow up visits in the Internal Medicine Clinic at [facility] for routine health problems and has an appointment tomorrow for an evaluation of this upper abdominal pain. She denies any fever or chills. She has no urinary tract symptoms. She denies any breast lumps on self-breast examination and has never noted any discharge from her breast. On examination, Sarah is an obese female who is in no apparent distress at the time of the examination. Her lungs are clear to auscultation bilaterally. Her cardiovascular exam reveals a regular rate and rhythm. Her abdomen is soft, nontender, and obese with a well-healed midline scar. There is a periumbilical hernia which is approximately 12 x 12 cm. There is also a smaller, (approximately 2 cm in diameter) hernia localized within the larger hernia. The breast examination revealed large, pendulous breast bilaterally; there are no masses, discharge, and no axillary adenopathy on examination. Her back is nontender. Her extremities are without clubbing, cyanosis, or edema. On genitourinary examination, the speculum reveals a normal vaginal discharge. The vaginal cuff is without lesions and appears normal. The vaginal hunter are pink and without lesions. There is normal female external genitalia present. Bimanual examination revealed a smooth vaginal cuff without lesions. It is not possible to palpate the pelvis well, secondary to obesity, but there are no masses appreciated. Rectovaginal examination reveals no masses that are palpable. The stool is hem-negative. In summary, Sarah is 25 months out from her surgery. She has done well during the intervening time. She has had normal pap smears since her surgery. She has had normal chest x-rays since her surgery. Given that the highest risk period for recurrence has now passed, we believe that Sarah no longer needs to be seen in the [facility]. She has chosen to continue her follow-up with you. We discussed the plan with her to see you every six months for pap smear and pelvic examination the next three years. She also needs an annual chest x-ray for the next three years. Once she passes the five year ashok, she could return annual examinations if there has been no evidence of recurrence. The prognosis for Sarah is very good since she had a grade 1 tumor which was limited to the inner one-third of the myometrium, and had no lymphatic-vascular space involvement. We recommend a total of five years of close follow-up with pap smears every six months and chest x-rays yearly during this time period. Sarah plans to continue to see Dr. Javier at the [facility] for care of her diabetes and to see Dr. Matos at [facility] for her routine medical problems. Please call us if you have any questions. Thank you again for referring aSrah to us originally. We have enjoyed taking care of her and look forward to working with you in the future as well. Sincerely, Alix Krueger M.D. Resident, Obstetrics and Gynecology Sam Araujo M.D. Business Support Administrator, Obstetrics and Gynecology Division of Gynecologic Oncology GILMER /nguyen P C: 07/05/95 avm cc: EDITH JAVIER MD DEPT OF MEDICINE [facility] ALBINA MATOS MD DEPT OF MEDICINE [facility] documented in this encounter Plan of Treatment Not on filedocumented as of this encounter Visit Diagnoses Not on filedocumented in this encounter"
--- OUTSIDE RECORDS SUMMARY | ~2019-04-06 | XMS | Encounter Summary ---
Demographics + + + | Address | [address] | | | [place] [address] | + + + | Home Phone | | + + + | Preferred Language | Unknown | + + + | Marital Status | Single | + + + | Quaker Affiliation | NON | + + + | Race | White | + + + | Ethnic Group | Not or | + + + Author + + + | Author | [facility] | + + + | Organization | [facility] | + + + | Address | Unknown | + + + | Phone | Unavailable | + + + Support + + + + + | Name | Relationship | Address | Phone | + + + + + | Caroline Gil | ECON | [place], [place] | | | | | [address] | | + + + + + | Van Reeves | ECON | [address] | | | | | [place] | | | | | [address] | | + + + + + | Cherelle Rea | ECON | Unknown | | + + + + + Care Team Providers + +------+ + | Care It Technical Architect Name | Role | Phone | + +------+ + | Jamel Keyes NP | PCP | | + +------+ + Reason for Visit + + + | Reason | Comments | + + + | Nurse Visit | RESIDENT CALL - PRE CHECK IN | + + + Encounter Details +--------+ + + + + | Date | Type | Department | Care Team | Description | +--------+ + + + + | 06/27/ | Telephone | Neurology at | Marlen Kaplan, | Nurse Visit | | 2018 | | [facility] & | MD [address] | (RESIDENT CALL - PRE | | | | Healing [address] | CHECK IN) | | | | [address] Mail Code: | [place], [place] | | | | | [address] | [address] | | | | | [facility], | [phone] | | | | | [address] [place] [address], | | | | | | [place] [address] | | | | | | [phone] | | | +--------+ + + + [...]
--- OUTSIDE RECORDS SUMMARY | ~2019-04-06 | XMS | Encounter Summary ---
Demographics + + + | Address | [address] | | | [place] [address] | + + + | Home Phone [...] Author + + + | Author | [facility] | + + + | Organization | [facility] | + + + | Address | Unknown | + + + | Phone | Unavailable | + + + Support + + + + + | Name | Relationship | Address | Phone | + + + + + | Caroline Gil | ECON | [place], [place] | | | | | [address] | | + + + + + | Van Reeves | ECON | [address] | | | | | [place] | | | | | [address] | | + + + + + | Cherelle Rea | ECON | Unknown | | + + + + + Care Team Providers + +------+ + | Care Contact Centre Supervisor Name | Role | Phone | [...] | Only | [address] | [phone] | | | | | Road [place], [place] | | | | | | [address] | | | | | | [phone] | | | +--------+ + + + [...] | + + + + + | [facility] | [address] | [place] [address] | | | PATHOLOGY | [address] | | | + + + + + documented in this encounter Visit Diagnoses Not on filedocumented in this encounter"
--- OUTSIDE RECORDS SUMMARY | ~2019-04-06 | XMS | Encounter Summary ---
Demographics + + + | Address | [address] | | | [place] [address] | + + + | Home Phone | | + + + | Preferred Language | Unknown | + + + | Marital Status | Single | + + + | Episcopalian Affiliation | NON | + + + | Race | White | + + + | Ethnic Group | Not or | + + + Author + + + | Author | [facility] | + + + | Organization | [facility] | + + + | Address | Unknown | + + + | Phone | Unavailable | + + + Support + + + + + | Name | Relationship | Address | Phone | + + + + + | Caroline Gil | ECON | [place], [place] | | | | | [address] | | + + + + + | Van Reeves | ECON | [address] | | | | | [place] | | | | | [address] | | + + + + + | Cherelle Rea | ECON | Unknown | | + + + + + Care Team Providers + +------+ + | Care Change Number Operator Name | Role | Phone | + +------+ + PCP | Unavailable | + +------+ + Encounter Details +--------+ + + + + | Date | Type | Department | Care Team | Description | +--------+ + + + + | 05/05/ | Results | LAB CORE [address] | [address] | | | 1992 | Only | [address] | [phone] | | | | | Road [place], [place] | | | | | | [address] | | | | | | [phone] | | | +--------+ + + + [...] + | SURGICAL PATHOLOGY | Routin | 05/05/1993 | | Results for this | | | e | | | procedure are in the | | | | | | results section. | + +--------+ + + + documented in this encounter Results SURGICAL PATHOLOGY (05/05/1993) + + + + + + | Component | Value | Ref Range | Performed | Pathologist | | | | | At | Signature | + + + + + + | SURGICAL | SOURCE OF SPECIMEN: SEE | | [facility] | | | PATHOLOGY | RESULTS | | DEPARTMENT | | | | Preliminary | | OF | | | | History:CLINICAL | | PATHOLOGY | | | | HISTORYThe patient is a | | | | | | 37 year old woman with | | | | | | endometrialadenocarcinom | | | | | | a found on curettage at | | | | | | [facility] | | [facility]. GROSS | | | | | | DESCRIPTIONReceived from | | | | | | [facility] | | | | | | [facility], [place], | | | | | | [place], are twoslides | | | | | | bearing accession number | | | | | | [id number] (1B1 and | | | | | | 2B1). Thecorresponding | | | | | | pathology report is | | | | | | dated 04/25/93, and | | | | | | identifies thespecimen | | | | | | as endocervical and | | | | | | endometrial | | | | | | curettings. | | | | | | MICROSCOPIC | | | | | | DESCRIPTIONThe | | | | | | endometrial curettage | | | | | | specimen has a fragment | | | | | | of a neoplasticprocess | | | | | | composed of trabeculated | | | | | | interlacing glands | | | | | | which are denselypacked | | | | | | except for a scant | | | | | | amount of stroma. The | | | | | | glandular | | | | | | epithelialcells are | | | | | | columnar with somewhat | | | | | | cleared nuclei present | | | | | | withinconspicuous | | | | | | nucleoli and variably | | | | | | amounts of eosinophilic | | | | | | to | | | | | | clearedcytoplasm. The | | | | | | nuclei are generally | | | | | | round to oval but | | | | | | somewhatpleomorphic in | | | | | | shape. Numerous | | | | | | mitotic figures are | | | | | | observedthroughout | | | | | | various regions of the | | | | | | neoplastic | | | | | | epithelium. The | | | | | | stromais | | | | | | unremarkable. In | | | | | | other regions the | | | | | | endometrial glands show | | | | | | a morenormal | | | | | | arrangement; however | | | | | | they are | | | | | | somewhat dilated with | | | | | | minorbranchings, | | | | | | consistent with | | | | | | hyperplasia. Fragment | | | | | | s of endocervicaltissue | | | | | | show normal glandular | | | | | | epithelium and | | | | | | stroma. FINAL | | | | | | DIAGNOSISENDOMETRIAL | | | | | | CURETTAGE: WELL | | | | | | DIFFERENTIATED | | | | | | ENDOMETRIAL | | | | | | CARCINOMA ENDOMETRIAL | | | | | | COMPLEX | | | | | | HYPERPLASIAENDOCERVICAL | | | | | | CURETTAGE: NO DIAGNOSTIC | | | | | | ABNORMALITY(outside | | | | | | slides) Case | | | | | | dictated by: Davis | | | | | | Anderson HenryCase reviewed | | | | | | by: Saúl Carroll | | | | | | AndersonTwo slides returned | | | | | | with | | | | | | report. :td | | | | | | My electronic | | | | | | signature indicates that | | | | | | I have personally | | | | | | reviewed alldiagnostic | | | | | | slides, the gross and/or | | | | [...] + + + + | [facility] | [address] | [place] [address] | | | PATHOLOGY | [address] | | | + + + + + documented in this encounter Visit Diagnoses Not on filedocumented in this encounter"
--- OUTSIDE RECORDS SUMMARY | ~2019-04-06 | XMS | Encounter Summary ---
Demographics + + + | Address | [address] | | | [place] [address] | + + + | Home Phone | | + + + | Preferred Language | Unknown | + + + | Marital Status | Single | + + + | Yazdanism Affiliation | NON | + + + | Race | White | + + + | Ethnic Group | Not or | + + + Author + + + | Author | [facility] | + + + | Organization | [facility] | + + + | Address | Unknown | + + + | Phone | Unavailable | + + + Support + + + + + | Name | Relationship | Address | Phone | + + + + + | Caroline Gil | ECON | [place], [place] | | | | | [address] | | + + + + + | Van Reeves | ECON | [address] | | | | | [place] | | | | | [address] | | + + + + + | Cherelle Rea | ECON | Unknown | | + + + + + Care Team Providers + +------+ + | Care Account Resolution Specialist Name | Role | Phone | + +------+ + | Jamel Keyes NP | PCP | | + +------+ + Encounter Details +--------+ + + + + | Date | Type | Department | Care Team | Description | +--------+ + + + + | 02/07/ | Abstract | Digestive Health | Clinic, Surgery | | | 2019 | | [place] [facility] [address] | | | | | | [facility] | | | | | | Mailcode: [place] | | | | | | [facility] and | | | | | | [facility] [address] | | | | | | [place], [place] | | | | | | [address] | | | | | | [phone] | | | +--------+ + + + [...]
--- OUTSIDE RECORDS SUMMARY | ~2019-04-06 | XMS | Encounter Summary ---
Demographics + + + | Address | [address] | | | [place] [address] | + + + | Home Phone | | + + + | Preferred Language | Unknown | + + + | Marital Status | Single | + + + | Protestant Affiliation | NON | + + + | Race | White | + + + | Ethnic Group | Not or | + + + Author + + + | Author | [facility] | + + + | Organization | [facility] | + + + | Address | Unknown | + + + | Phone | Unavailable | + + + Support + + + + + | Name | Relationship | Address | Phone | + + + + + | Caroline Gil | ECON | [place], [place] | | | | | [address] | | + + + + + | Van Reeves | ECON | [address] | | | | | [place] | | | | | [address] | | + + + + + | Cherelle Rea | ECON | Unknown | | + + + + + Care Team Providers + +------+ + | Care Elastic Yarn Twister Name | Role | Phone | + [...] Clinic | | | | cribed | [facility] | | | | | | Road Mailcode: L475 | | | | | | Outpatient Clinic | | | | | | [facility], [address] | | | | | | [place], [place] | | | | | | [address] | | | | | | [phone] | | | +--------+ + + + [...] as of this encounter Progress Notes Interface, Dinkey Skinner In - 02/24/2007 5:01 AM PDT CLINIC [...] She has no other family members in [place]. 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 Forest Matos M.D. Stamp Maker, Medicine :joanna cc: EDITH JAVIER MD DEPARTMENT OF MEDICINE [facility] documented in this encounter Plan of Treatment Not on filedocumented as of this encounter Visit Diagnoses Not on filedocumented in this encounter"
--- OUTSIDE RECORDS SUMMARY | ~2019-04-06 | XMS | Encounter Summary ---
Demographics + + + | Address | [address] | | | [place] [address] | + + + | Home Phone [...] Author + + + | Author | [facility] | + + + | Organization | [facility] | + + + | Address | Unknown | + + + | Phone | Unavailable | + + + Support + + + + + | Name | Relationship | Address | Phone | + + + + + | Caroline Gil | ECON | [place], [place] | | | | | [address] | | + + + + + | Van Reeves | ECON | [address] | | | | | [place] | | | | | [address] | | + + + + + | Cherelle Rea | ECON | Unknown | | + + + + + Care Team Providers + +------+ + | Care Rehab Director Occupational Therapist Name | Role | Phone | + [...] Nurse Visit | | 2018 | | [facility] & | MD [address] | (RESIDENT CALL - PRE | | | | Healing [address] | CHECK IN) | | | | [address] Mail Code: | [place], [place] | | | | | [address] | [address] | | | | | [facility], | [phone] | | | | | [address] [place] [address], | | | | | | [place] [address] | | | | | | [phone] | | | +--------+ + + + [...]
--- OUTSIDE RECORDS SUMMARY | ~2019-04-06 | XMS | Encounter Summary ---
Demographics + + + | Address | [address] | | | [place] [address] | + + + | Home Phone [...] + + + | Author | [facility] | + + + | Organization | [facility] | + + + | Address | Unknown | + + + | Phone | Unavailable | + + + Support + + + + + | Name | Relationship | Address | Phone | + + + + + | Caroline Gil | ECON | [place], [place] | | | | | [address] | | + + + + + | Van Reeves | ECON | [address] | | | | | [place] | | | | | [address] | | + + + + + | Cherelle Rea | ECON | Unknown | | + + + + + Care Team Providers + +------+ + | Care Patient Services Clerk Name | Role | Phone | + [...] | Only | [address] | [phone] | | | | | Road [place], [place] | | | | | | [address] | | | | | | [phone] | | | +--------+ + + + [...] | + + + + + | [facility] | [address] | [place] [address] | | | PATHOLOGY | [address] | | | + + + + + documented in this encounter Visit Diagnoses Not on filedocumented in this encounter"
--- OUTSIDE RECORDS SUMMARY | ~2019-04-06 | XMS | Encounter Summary ---
Demographics + + + | Address | [address] | | | [place] [address] | + + + | Home Phone [...] + | Caroline Gil | ECON | [place], [place] | | | | | [address] | | + + + + + | Van Reeves | ECON | [address] | | | | | [place] | | | | | [address] | | + + + + + | Cherelle Payson | ECON | Unknown | | + + + + + Care Team Providers + +------+ + | Care Supervisor Bottle House Cleaners Name | Role | Phone | + +------+ + PCP | Unavailable | + +------+ + Encounter Details +--------+ + + + + | Date | Type | Department | Care Team | Description | +--------+ + + + + | 12/20/ | Results | | Other, Faculty | | | 1994 | Only | | [phone] | | +--------+ + + + + [...] | | + +---------+ + + | [facility] DEPARTMENT OF | | | | [...] | | + +---------+ + + | [facility] DEPARTMENT | | | | | RADIOLOGY | | | | + +---------+ + + documented in this encounter Visit Diagnoses Not on filedocumented in this encounter"
--- OUTSIDE RECORDS SUMMARY | ~2019-04-06 | XMS | Encounter Summary ---
Demographics + + + | Address | [address] | | | [place] [address] | + + + | Home Phone | | + + + | Preferred Language | Unknown | + + + | Marital Status | Single | + + + | Roman Catholic Affiliation | NON | + + [...] + | Caroline Gil | ECON | [place], [place] | | | | | [address] | | + + + + + | Van Reeves | ECON | [address] | | | | | [place] | | | | | [address] | | + + + + + | Cherelle Rea | ECON | Unknown | | + + + + + Care Team Providers + +------+ + | Care Metal Pickling Equipment Operator Name | Role | Phone | + +------+ + PCP | Unavailable | + +------+ + Encounter Details +--------+ + + + + | Date | Type | Department | Care Team | Description | +--------+ + + + + | 06/27/ | Results | LAB CORE [address] | Diogenes Canales | | | 1994 | Only | [address] | [phone] | | | | | Road [place], [place] | | | | | | [address] | | | | | | [phone] | | | +--------+ + + + [...] + | ARCHIVE CYTOLOGY | Routin | 06/27/1995 | | Results for this | | | e | | | procedure are in the | | | | | | results section. | + +--------+ + + + documented in this encounter Results ARCHIVE CYTOLOGY (06/27/1995) + + + + + + | [...] | | | | | | of material: Vaginal | | | | | | cuff Number of | | | | | | slides: 1Reason for | | | | | | examination: RoutineLast | | | | | | Menstrual Period: 25 | | | | | | mos ago, s/p | | | | | | GRETEL/BSOPrevious | | | | | | Diagnoses and/or | | | | | | Therapy: hx Adenoca | | | | | | of Em | | | | | | FINAL DIAGNOSIS | | | | | | I. SPECIMEN | | | | | | ADEQUACY:Satisfactory | | | | | | for evaluation | | | | | | II. GENERAL | | | | | | CATEGORIZATION:Within | | | | | | Normal Limits | | | | | | Case screened by: Ellie | | | | | | Kayla CXimenaT.Also | | | | | | seen by: Elena Rapp, | | | | | | C.T. My | | | | | | [...] | + + + + + | [facility] | [address] | [place] [address] | | | PATHOLOGY | [address] | | | + + + + + documented in this encounter Visit Diagnoses Not on filedocumented in this encounter"
--- OUTSIDE RECORDS SUMMARY | ~2019-04-06 | XMS | Encounter Summary ---
Demographics + + + | Address | [address] | | | [place] [address] | + + + | Home Phone | | + + + | Preferred Language | Unknown | + + + | Marital Status | Single | + + + | Restoration Affiliation | NON | + + + | Race | White | + + + | Ethnic Group | Not or | + + + Author + + + | Author | [facility] | + + + | Organization | [facility] | + + + | Address | Unknown | + + + | Phone | Unavailable | + + + Support + + + + + | Name | Relationship | Address | Phone | + + + + + | Caroline Gil | ECON | [place], [place] | | | | | [address] | | + + + + + | Van Reeves | ECON | [address] | | | | | [place] | | | | | [address] | | + + + + + | Cherelle Rea | ECON | Unknown | | + + + + + Care Team Providers + +------+ + | Care Offal Baler Name | Role | Phone | + [...] cribed | [facility] | | | | | | Road Mailcode: L475 | | | | | | Outpatient Clinic | | | | | | [facility], [address] | | | | | | [place], [place] | | | | | | [address] | | | | | | [phone] | | | +--------+ + + + [...] as of this encounter Progress Notes Interface, Tack Welder In - 02/22/2007 5:01 AM PDT CLINIC [...] hernia, or perforated ulcer. Forest Matos M.D. Salad Maker, Medicine :shirley documented in this encounter Plan of Treatment Not on filedocumented as of this encounter Visit Diagnoses Not on filedocumented in this encounter"
--- OUTSIDE RECORDS SUMMARY | ~2019-04-06 | XMS | Encounter Summary ---
Demographics + + + | Address | [address] | | | [place] [address] | + + + | Home Phone | | + + + | Preferred Language | Unknown | + + + | Marital Status | Single | + + + | Confucianist Affiliation | NON | + + + | Race | White | + + + | Ethnic Group | Not or | + + + Author + + + | Author | [facility] | + + + | Organization | [facility] | + + + | Address | Unknown | + + + | Phone | Unavailable | + + + Support + + + + + | Name | Relationship | Address | Phone | + + + + + | Caroline Gil | ECON | [place], [place] | | | | | [address] | | + + + + + | Van Reeves | ECON | [address] | | | | | [place] | | | | | [address] | | + + + + + | Cherelle Rea | ECON | Unknown | | + + + + + Care Team Providers + +------+ + | Care Surgical Product Sales Consultant Name | Role | Phone | + +------+ + | Jamel Keyes NP | PCP | | + +------+ + Encounter Details +--------+ + + + + | Date | Type | Department | Care Team | Description | +--------+ + + + + | 03/04/ | Procedure | Diagnostic Imaging | | | | 2018 | Pass | Services at [facility] | | | | | | [address] | | | | | | [facility] | | | | | | Mailcode: L[address] [facility] | | | | | | [place], | | | | | | [place] [address] | | | | | | [phone] | | | +--------+ + + + [...]
--- OUTSIDE RECORDS SUMMARY | ~2019-04-06 | XMS | Encounter Summary ---
Demographics + + + | Address | [address] | | | [place] [address] | + + + | Home Phone | | + + + | Preferred Language | Unknown | + + + | Marital Status | Single | + + + | Islam Affiliation | NON | + + + | Race | White | + + + | Ethnic Group | Not or | + + + Author + + + | Author | [facility] | + + + | Organization | [facility] | + + + | Address | Unknown | + + + | Phone | Unavailable | + + + Support + + + + + | Name | Relationship | Address | Phone | + + + + + | Caroline Gil | ECON | [place], [place] | | | | | [address] | | + + + + + | Van Reeves | ECON | [address] | | | | | [place] | | | | | [address] | | + + + + + | Cherelle Rea | ECON | Unknown | | + + + + + Care Team Providers + +------+ + | Care Stick Welder Name | Role | Phone | + +------+ + PCP | Unavailable | + +------+ + Encounter Details +--------+ + + + + | Date | Type | Department | Care Team | Description | +--------+ + + + + | 06/27/ | Transcribed | Allergy Clinic at | Dictation, Other | Transcribed | | 1994 | | [facility] [address] | | | | | | [facility] | | | | | | Mailcode: OP34 [address] | | | | | | [facility] | | | | | | [facility], | | | | | | [place] [address] | | | | | | [phone] | | | +--------+ + + + [...] as of this encounter Progress Notes Interface, Rotary Furnace Operator In - 02/22/2007 5:01 AM PDT [facility], [place] [address] or Department of Obstetrics and Gynecology, L466 Oncology [facility] June 27, 1995 CHILANGO ASIF MD [address] [place] [address] [place] [address] RE:Sarah Cuevas MR#:[id number] Dear Doctor Chantal: Sarah [...] visits in the Internal Medicine Clinic at [facility] for routine health problems and has an [...] continue to see Dr. Javier at the [facility] for care of her diabetes and to see Dr. Matos at [facility] for her routine medical problems. Please call us if you have any questions. Thank you again for referring Sarah to us originally. We have enjoyed taking care of her and look forward to working with you in the future as well. Sincerely, Alix Krueger M.D. Resident, Obstetrics and Gynecology Sam Araujo M.D. Lacing String Cutter, Obstetrics and Gynecology Division of Gynecologic Oncology GILMER /nguyen P C: 07/05/95 avm cc: EDITH JAVIER MD [facility] ALBINA MATOS MD [facility] documented in this encounter Plan of Treatment Not on filedocumented as of this encounter Visit Diagnoses Not on filedocumented in this encounter"
--- OUTSIDE RECORDS SUMMARY | ~2019-04-06 | XMS | Encounter Summary ---
Demographics + + + | Address | [address] | | | [place] [address] | + + + | Home Phone [...] Author + + + | Author | [facility] | + + + | Organization | [facility] | + + + | Address | Unknown | + + + | Phone | Unavailable | + + + Support + + + + + | Name | Relationship | Address | Phone | + + + + + | Caroline Gil | ECON | [place], [place] | | | | | [address] | | + + + + + | Van Reeves | ECON | [address] | | | | | [place] | | | | | [address] | | + + + + + | Cherelle Rea | ECON | Unknown | | + + + + + Care Team Providers + +------+ + | Care Hand Folder Name | Role | Phone | + +------+ + PCP | Unavailable | + +------+ + Encounter Details +--------+ + + + + | Date | Type | Department | Care Team | Description | +--------+ + + + + | 07/09/ | Office | General Internal | Note, Outpatient | Progress Note | | 1994 | Visit-Trans | Medicine [address] | Clinic | | | | cribed | [facility] | | | | | | Road Mailcode: L475 | | | | | | Outpatient Clinic | | | | | | [facility], [address] | | | | | | [place], [place] | | | | | | [address] | | | | | | [phone] | | | +--------+ + + + [...] as of this encounter Progress Notes Interface, Cdl Truck Driver In - 02/22/2007 5:01 AM PDT CLINIC DATE: 07/09/95 INTERNAL MEDICINE CLINIC SUBJECTIVE: Ms. Cuevas returns today and reports that over the weekend she has been feeling much better. She has not had any emesis now in at least four days. She has been able to keep down fluids well as well as some rice and mashed potatoes. A bologna sandwich did cause a recurrence of her epigastric pain. She thinks that she has had low-grade fevers up to a maximum of 100, but overall feels that she is getting better. PHYSICAL EXAMINATION: VITAL SIGNS: Weight is 263 pounds. Blood pressure is 118/75, pulse of 80. Temperature is 37.7. GENERAL: She looks very well. No further examination was done today. LABORATORY DATA: Her abdominal ultrasound last week showed only a fatty liver. The reading on her upper gastrointestinal series from last Sunday shows prominent folds in the duodenal bulb which could represent duodenitis. IMPRESSION: She still has symptoms most consistent with dyspepsia or peptic ulcer disease. This does not account for her fever and high white blood cell count. Her white blood cell count has returned to normal today however, and she doesn't have a fever at this time. PLAN: For the moment I will continue to give her antacid therapy. I gave her samples of Zantac 150 mg to be taken b.i.d. for the next two months. (She could not afford Prilosec). I will see her back in one month, but I gave her strict instructions to call if she has recurrence of fever, emesis or systemic illness. Forest Matos M.D. Stone Product Fabricator, Medicine :joya documented in this encounter Plan of Treatment Not on filedocumented as of this encounter Visit Diagnoses Not on filedocumented in this encounter"
--- OUTSIDE RECORDS SUMMARY | ~2019-04-06 | XMS | Encounter Summary ---
Demographics + + + | Address | [address] | | | [place] [address] | + + + | Home Phone [...] + | Caroline Gil | ECON | [place], [place] | | | | | [address] | | + + + + + | Van Reeves | ECON | [address] | | | | | [place] | | | | | [address] | | + + + + + | [place] | ECON | Unknown | | + + + + + Care Team Providers + +------+ + | Care Antisqueak Filler Name | Role | Phone | + +------+ + PCP | Unavailable | + +------+ + Encounter Details +--------+ + + + + | Date | Type | Department | Care Team | Description | +--------+ + + + + | 07/05/ | Results | | Other, Faculty | | | 1994 | Only | | [phone] | | +--------+ + + + + [...] | | + +---------+ + + | [facility] DEPARTMENT OF | | | | | [...] | | + +---------+ + + | [facility] DEPARTMENT OF | | | | | [...] | | + +---------+ + + | [facility] DEPARTMENT OF | | | | | [...] | | + +---------+ + + | [facility] DEPARTMENT | | | | | RADIOLOGY | | | | + +---------+ + + documented in this encounter Visit Diagnoses Not on filedocumented in this encounter"
--- OUTSIDE RECORDS SUMMARY | ~2019-04-06 | XMS | Encounter Summary ---
Demographics + + + | Address | [address] | | | [place] [address] | + + + | Home Phone [...] + + + | Author | [facility] | + + + | Organization | [facility] | + + + | Address | Unknown | + + + | Phone | Unavailable | + + + Support + + + + + | Name | Relationship | Address | Phone | + + + + + | Caroline Gil | ECON | [place], [place] | | | | | [address] | | + + + + + | Van Reeves | ECON | [address] | | | | | [place] | | | | | [address] | | + + + + + | Cherelle Rea | ECON | Unknown | | + + + + + Care Team Providers + +------+ + | Care Joint Setter Name | Role | Phone | + [...] | Only | [address] | [phone] | | | | | Road [place], [place] | | | | | | [address] | | | | | | [phone] | | | +--------+ + + + [...] [facility] | [address] | [place] [address] | | | PATHOLOGY | [address] [...] [facility] | [address] | [place] [address] | | | PATHOLOGY | [address] | | | + + + + + documented in this encounter Visit Diagnoses Not on filedocumented in this encounter"
--- OUTSIDE RECORDS SUMMARY | ~2019-04-06 | XMS | Encounter Summary ---
Demographics + + + | Address | [address] | | | [place] [address] | + + + | Home Phone | | + + + | Preferred Language | Unknown | + + + | Marital Status | Single | + + + | Presybeterian Affiliation | NON | + + + | Race | White | + + + | Ethnic Group | Not or | + + + Author + + + | Author | [facility] | + + + | Organization | [facility] | + + + | Address | Unknown | + + + | Phone | Unavailable | + + + Support + + + + + | Name | Relationship | Address | Phone | + + + + + | Caroline Gil | ECON | [place], [place] | | | | | [address] | | + + + + + | Van Reeves | ECON | [address] | | | | | [place] | | | | | [address] | | + + + + + | Cherelle Rea | ECON | Unknown | | + + + + + Care Team Providers + +------+ + | Care Letter Stamping Machine Operator Name | Role | Phone | + +------+ + | Jamel Keyes NP | PCP | | + +------+ + Encounter Details +--------+ + + + + | Date | Type | Department | Care Team | Description | +--------+ + + + + | 02/13/ | Document-Sc | UNKNOWN DEPARTMENT | Unknown . | | | 2018 | anned | [address] | | | | | | [facility] | | | | | | [place], [place] | | | | | | [address] | | | +--------+ + + + [...]
--- OUTSIDE RECORDS SUMMARY | ~2019-04-06 | XMS | Encounter Summary ---
Demographics + + + | Address | [address] | | | [place] [address] | + + + | Home Phone [...] Author + + + | Author | [facility] | + + + | Organization | [facility] | + + + | Address | Unknown | + + + | Phone | Unavailable | + + + Support + + + + + | Name | Relationship | Address | Phone | + + + + + | Caroline Gil | ECON | [place], [place] | | | | | [address] | | + + + + + | Van Reeves | ECON | [address] | | | | | [place] | | | | | [address] | | + + + + + | Cherelle Rea | ECON | Unknown | | + + + + + Care Team Providers + +------+ + | Care Disk Operator Name | Role | Phone | + +------+ + | Jamel Keyes NP | PCP | | + +------+ + Encounter Details +--------+ + + + + | Date | Type | Department | Care Team | Description | +--------+ + + + + | 02/07/ | Abstract | Digestive Health | Clinic, Surgery | | | 2019 | | [place] [facility] [address] | | | | | | [facility] | | | | | | Mailcode: [place] | | | | | | [facility] | | | | | | [facility] [address] | | | | | | [place], [place] | | | | | | [address] | | | | | | [phone] | | | +--------+ + + + [...]
--- OUTSIDE RECORDS SUMMARY | ~2019-04-06 | XMS | Encounter Summary ---
Demographics + + + | Address | [address] | | | [place] [address] | + + + | Home Phone [...] + | Caroline Gil | ECON | [place], [place] | | | | | [address] | | + + + + + | Van Reeves | ECON | [address] | | | | | [place] | | | | | [address] | | + + + + + | Cherelle Thomas | ECON | Unknown | | + + + + + Care Team Providers + +------+ + | Care Psychology Physician Name | Role | Phone | + +------+ + PCP | Unavailable | + +------+ + Encounter Details +--------+ + + + + | Date | Type | Department | Care Team | Description | +--------+ + + + + | 05/04/ | Results | | Other, Faculty | | | 1992 | Only | | [phone] | | +--------+ + + + + [...] | | + +---------+ + + | [facility] DEPARTMENT OF | | | | | RADIOLOGY | | | | + +---------+ + + documented in this encounter Visit Diagnoses Not on filedocumented in this encounter"
--- OUTSIDE RECORDS SUMMARY | ~2019-04-06 | XMS | Clinical Summary ---
Demographics + + + | Address | [address] | | | [place] [address] | + + + | Home Phone | | + + + | Preferred Language | Unknown | + + + | Marital Status | | + + + | Jewish Affiliation | Unknown | + + + | Race | Unknown | + + + | Ethnic Group | Unknown | + + + Author + + + | Author | [facility] | | | and [place] | + + + | Organization | [facility] | | | and [place] | + + + | Address | [...] Team Providers + +------+ + | Care Packer Inspector Name | Role | Phone | + [...] | + + + + | INFLUENZA, [id number], | 09/17/2009 | | | UNSPECIFIED | [...] Right: | GANNON | | 07/12/ | [id number] | | 23.0 - [id number]: | c | Eye | MEDICAL | | 2020 | 0230 | | Qty: 1 on 08/14/2018 by | | | [employer] - | | | /[id number] | | Cristhian Lewis MD | | | [place]ON | | | [address] | | | | | | | | /N/A | + +--------+--------+ +--------+--------+--------+ | Brady Pacheco - | Generi | Right: | GLAUKOS - | | 06/11/ | [id number] | | [id number]: Qty: | c | Eye | GLAU | | 2020 | L | | 1 on 08/14/2018 by Joshua, | | | | | | /[id number] | | Cristhian Vasquez MD | | | | | | [id number] | | | | | | | [...] +--------+ +---------+--------+ | MEDICARE | MEDICA | [id number] | | [phone] | | Medica | | | RE | | 015-Pr | 5 | | re | | | PART A | | esent | | | | | | AND B | | | | | | + +--------+ +--------+ +---------+--------+ | | CHAMPV | [id number] | 10/25/ | [phone] | | Indemn | | | A [...] | | al/Fam | | 1954 | [phone] | [place] [address] | | | craig | | | 5 (Home) | | + +--------+ +--------+ + + Advance Directives Patient has advance care planning documents, and code status on file. For more information, please contact:[facility] [place] [address] + + + + + | Code [...]
--- OUTSIDE RECORDS SUMMARY | ~2019-04-06 | XMS | Encounter Summary ---
Demographics + + + | Address | [address] | | | [place] [address] | + + + | Home Phone | | + + + | Preferred Language | Unknown | + + + | Marital Status | Single | + + + | Evangelical Affiliation | NON | + + + | Race | White | + + + | Ethnic Group | Not or | + + + Author + + + | Author | [facility] | + + + | Organization | [facility] | + + + | Address | Unknown | + + + | Phone | Unavailable | + + + Support + + + + + | Name | Relationship | Address | Phone | + + + + + | Caroline Gil | ECON | [place], [place] | | | | | [address] | | + + + + + | Van Reeves | ECON | [address] | | | | | [place] | | | | | [address] | | + + + + + | Latanya Rea | ECON | Unknown | | + + + + + Care Team Providers + +------+ + | Care Team Cdl Driver Name | Role | Phone | + +------+ + | Jamel Johnson NP | PCP | | + +------+ + Reason for Referral Speech Therapy (Routine) + +--------+ + + + + | Status | Reason | Specialty | Diagnoses / | Referred By | Referred To | | | | | Procedures | Contact | Contact | + +--------+ + + + + | New Request | | Speech | Diagnoses | Lupe, | | | | | Therapy | Pneumonia | George Zepeda MD | | | | | | due to | [address] | | | | | | infectious | [address] | | | | | | organism, | Rd | | | | | | unspecified | [place], [place] | | | | | | laterality, | [address] | | | | | | unspecified | Phone: | | | | | | part of lung | [phone] | | | | | | | Fax: | | | | | | Encephalomye | [phone] | | | | | | litis, | | | | | | | autoimmune | | | | | | | Procedures | | | | | | | SPEECH | | | | | | | THERAPY | | | | | | | REFERRAL | | | + +--------+ + + + + Occupational Therapy (Routine) + +--------+ + + + + | Status | Reason | Specialty | Diagnoses / | Referred By | Referred To | | | | | Procedures | Contact | Contact | + +--------+ + + + + | New Request | | Occupational | Diagnoses | Lupe, | | | | | Therapy | Pneumonia | George Zepeda MD | | | | | | due to | [address] | | | | | | infectious | [address] | | | | | | organism, | Rd | | | | | | unspecified | [place], [place] | | | | | | laterality, | [address] | | | | | | unspecified | Phone: | | | | | | part of lung | [phone] | | | | | | | Fax: | | | | | | Encephalomye | [phone] | | | | | | litis, | | | | | | | autoimmune | | | | | | | Procedures | | | | | | | OCCUPATIONAL | | | | | | | THERAPY | | | | | | | REFERRAL | | | + +--------+ + + + + Physical Therapy (Routine) + +--------+ + + + + | Status | Reason | Specialty | Diagnoses / | Referred By | Referred To | | | | | Procedures | Contact | Contact | + +--------+ + + + + | New Request | | Physical | Diagnoses | Lupe, | | | | | Therapy | Pneumonia | George Zepeda MD | | | | | | due to | [address] | | | | | | infectious | [facility] | | | | | | organism, | Rd | | | | | | unspecified | [place], [place] | | | | | | laterality, | [address] | | | | | | unspecified | Phone: | | | | | | part of lung | [phone] | | | | | | | Fax: | | | | | | Encephalomye | [phone] | | | | | | litis, | | | | | | | autoimmune | | | | | | | Procedures | | | | | | | PHYSICAL | | | | | | | THERAPY | | | | | | | REFERRAL | | | + +--------+ + + + + Reason for Visit + + + | Reason | Comments | + + + | Respiratory Failure | | + + + AUTH/CERT +--------+--------+ + + + + | Status | Reason | Specialty | Diagnoses / | Referred By | Referred To | | | | | Procedures | Contact | Contact | +--------+--------+ + + + + | | | | | | | +--------+--------+ + + + + Encounter Details +--------+ + + + + | Date | Type | Department | Care Team | Description | +--------+ + + + + | 02/11/ | Hospital | [facility] [address] | [place], | | | 2018 - | Encounter | [address] | [address] [facility] | | | | | [address] [facility] | [address] | | | 03/15/ | | [place], [place] | [place], [place] | | | 2018 | | [address] | [address] | | | | | [phone] | [phone] | | | | | | | | | | | | Leif Matamoros MD | | | | | | [address] | | | | | | [facility] | | | | | | [place], [place] | | | | | | [address] | | | | | | [phone] | | | | | | | | | | | | Sergio Sanchez MD | | | | | | [address] | | | | | | [address] [place], | | | | | | [place] [address] | | | | | | [phone] | | | | | | | | | | | | Sierra Rizo, | | | | | | DO [address] | | | | | | [facility] | | | | | | [place], [place] | | | | | | [address] | | | | | | [phone] | | | | | | | | | | | | Lori Freeman MD | | | | | | [address] | | | | | | [facility], | | | | | | [place] [address] | | | | | | [phone] | | | | | | | | | | | | Radha Velarde MD | | | | | | [address] [place] | | | | | | [facility], | | | | | | [place] [address] | | | | | | [phone] | | | | | | | [...] Pressure | 104/50 | 03/15/2018 8:18 AM | | | | | PDT | | + + + + + | Pulse | 69 | 03/15/2018 8:18 AM | | | [...] (274 lb 9.6 | 03/15/2018 4:48 AM | | | | oz) | PDT | | + + + + + | Height | 168 cm (5' 6.14") | 02/19/2018 2:31 AM | | | | | PDT | | + + + + + | Body Mass Index | 44.13 | 02/19/2018 2:31 AM | | | [...] + + documented as of this encounter Discharge Summaries George Andrade MD - 03/15/2018 10:02 AM PDT [facility] Discharge Summary Discharging Provider: George Andrade MD Discharging Attending Physician: Radha Velarde MD PCP: Jamel Johnson NP Admission Date: 02/11/2018 Discharge Date: 03/15/2018 Hospital Stay: 32 day(s) Reason for Admission: Sarah Reeves is a 62 y.o. Femalewith HTN, HFpEF, T2DM, OLIVIA initially transferred from [facility] to MICU for acute hypoxic respiratory failure requiring intubation (02/07) secondary to me tapneumovirus PNA. Extubated 02/20, transferred out of ICU 02/22. Hospital course complicated by superimposed bacterial PNA, ARDS, and now persistent toxic metabolic encephalopathy of un known etiology. Principal Final Diagnosis: 1) *Encephalopathy Additional Diagnoses: 3) ARDS (adult respiratory distress syndrome) ([facility]) 4) Pneumonia due to human metapneumovirus (hMPV) 5) HTN (hypertension) 6) SVT (supraventricular tachycardia) ([facility]) 7) Severe obesity (BMI >= 40) ([facility]) 8) (HFpEF) heart failure with preserved ejection fraction ([facility]) 9) T2DM (type 2 diabetes mellitus) ([facility]) 10) Abnormal ventricular wall motion 11) Moderate protein-calorie malnutrition ([facility]) Resolved Hospital Problems 12) Leukocytosis 13) CKD (chronic kidney disease) Procedures: Intubated 02/07 - 02/20 Lumbar Puncture: 02/27 (unsuccessful) & 03/01 Hospital Course by Problem (with follow-up plan/instructions): 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 She was extuba lisa on 02/20 but had persistent encephalopathy longer than expected for ICU delirium or sedat ion from intubation. She was primarily non-verbal, mainly somnolent but had periods of alert ness but not following any commands. A broad neurologic and infectious work-up was done. Her MRI had non specific findings and her CSF was reassuring. EEG also with nonspecific signs, and no seizure like activity. Further history was obtained from her who reported th at [facility] for 1-2 months prior to her admission had progressive decline in her function, need ing a walker for ambulation. 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 She received 3 days of IV Solumedrol. She was noted to have some improvement in her encepha lopathy after her first dose of solumedrol. She was able to speak small 1-3 word phrases, fo llow basic commands, answer simple questions. She was then administered 5 days of IVIG (03/06 -03/10). Neuroimmunology was then consulted to see if she would indicate needing rituximab th era. Her history was reviewed and given that she had non specific MRI findings, a negative encephalitis panel, negative CSF encephalitis panel and a pending serum encephalitis, the d ecision was made to wait for the results of the serum Dowell autoimmune encephalitis panel izabel or to starting any further medications. She was thus discharged to a SNF for further rehabil itation. -Follow up serum Dowell auto-immune encephalitis panel - drawn on 03/02 - takes 2-3 weeks to come back. -Neurology follow up in 1-2 months - neurology will coordinate follow up and encephalitis panel follow up Pneumonia due to human metapneumovirus ARDS Aspiration Pneumonia Presented for metapneumovirus pneumonia with ARDS and required intubation 02/11-02/20. She was treated for a possible superimposed bacterial aspiration PNA here. In hind site, think her neurologic weakness happening 1-2 months prior to presentation was likely cause of aspiratio n and pneumonia admission. She was comfortably on room air upon discharge. T2DM - Patient's home insulin is glargine 75u and aspart 30u TID with meals prior to admission. Gi jaquan her encephalopathy, she required tube feeds and was switched to NPH. Her dobhoff was pul led on 03/14 and she was able to eat by mouth - mechanical soft foods. -transitioned back to lantus 20u + lispro 10u TID with meals -follow CBGs and adjust as needed Pertinent Findings: Labs: Lab Results Component Value Date NA 139 03/15/2018 K 4.6 03/15/2018 CL 107 03/15/2018 BICARB 26 03/15/2018 BUN 39 03/15/2018 EGFRAFRICAN >60 03/15/2018 EGFRNONAFR 56 03/15/2018 CR 1.00 03/15/2018 GLU 199 03/15/2018 CA 8.9 03/15/2018 ANIONGAP 6 03/15/2018 ANIONALBCOR 9 03/15/2018 Lab Results Component Value Date WBC 9.06 03/15/2018 HB 12.2 03/15/2018 HCT 37.0 03/15/2018 PLT 238 03/15/2018 MCV 84.7 03/15/2018 RDW 45.1 03/15/2018 ESR 42 CRP 15.7 RF 25 RIKA negative JONATHAN negative SSA/SSB negative Hepatitis B surface antibody positive Hepatitis B core antibody positive Hepatitis B Antigen negative Vitamin E within normal limits Quantiferon gold - negative PPD - negative CSF: (03/01/2018) Meningoencephalitis panel negative WBC <1, RBC 404, Protein 85, Glucose 114 Dowell Autoimmune Encephalopathy CSF Panel: Negative Imaging: Routine EEG (02/12/2018): This awake and drowsy [...] noted bilaterally. 24 Hr EEG: (03/04/2018): This detention EEG is abnormal due to: 1. Mild [...] 3. No discrete eviden ce of malignancy. Outstanding or Pending Labs/Studies: Dowell Autoimmune Encephalopathy Serum Panel: Pending ([phone]; expect results 12-14 business days from 03/05) Consultants (service/attending name): Neurology Neuroimmunology Hematology Discharge Medications: Medication List START taking these medications amLODIPine 10 mg Tab Commonly known as: NORVASC Take 1 tablet by mouth once daily. aspirin chewable 81 mg Chew Chew and swallow 1 tablet once daily. atorvastatin 80 mg Tab Commonly known as: LIPITOR Take 1 tablet by mouth once daily. carvedilol 25 mg Tab Commonly known as: COREG Take 1 tablet by mouth two times daily. Administer with food. enoxaparin 40 mg/0.4 mL Syrg Commonly known as: LOVENOX Inject 0.4 mL under the skin (SUBC) once daily in the evening. Until patient becomes more a mbulatory. QUEtiapine 25 mg Tab Commonly known as: SEROQUEL Take 0.5 tablets by mouth once daily at bedtime. CHANGE how you take these medications insulin glargine 300 unit/mL (1.5 mL) Inpn Inject 20 Units under the skin (SUBC) once daily at bedtime. Adjust as needed based off CBG s What changed: how much to take additional instructions lisinopril 10 mg Tab Commonly known as: PRINIVIL Take 1 tablet by mouth once daily. What changed: medication strength how much to take NovoLOG Flexpen U-100 Insulin 100 unit/mL Inpn Generic drug: insulin aspart U-100 Inject 10 Units under the skin (SUBC) three times daily before meals. Adjust as needed base d off CBGs What changed: how much to take additional instructions CONTINUE taking these medications albuterol 90 mcg/actuation Hfaa Commonly known as: PROVENTIL, VENTOLIN Inhale 2 puffs by mouth every six hours as needed. budesonide-formoterol 160-4.5 mcg/actuation Hfaa Commonly known as: SYMBICORT Inhale 2 puffs by mouth two times daily. Indications: Maintenance Therapy for Asthma omeprazole 20 mg Cpdr Commonly known as: PRILOSEC Take 20 mg by mouth once daily. ondansetron ODT 4 mg Tbdi Commonly known as: ZOFRAN ODT Dissolve 4 mg on tongue and swallow three times daily as needed. potassium chloride SR 10 mEq Tbtq Commonly known as: K-DUR Take 10 mEq by mouth once daily. sertraline 100 mg Tab Commonly known as: ZOLOFT Take 100 mg by mouth once daily. STOP taking these medications furosemide 40 mg Tab Commonly known as: LASIX gabapentin 300 mg Cap Commonly known as: NEURONTIN meloxicam 15 mg Tab Commonly known as: MOBIC simvastatin 20 mg Tab Commonly known as: ZOCOR triamcinolone acetonide 0.1 % Crea Commonly known as: KENALOG Rationale for Medication Changes: Adjusted insulin back to home insulin types but decreased doses Allergies: No Known Allergies Code Status: Full POLST completed: no Additional Instructions: Code Status for Facility Status: Full Code Condition on Discharge Fair Discharge Follow Up - Facility MD to follow Facility MD to follow patient. Patient with prolonged encephalopathy post ICU extubation for ARDS, Pneumonia. Extensive ne urologic work-up. Initial concern was for autoimmune encephalitis so patient received 3 days of solumedrol followed by 5 days of IVIG. Patient showed some improvement from this but not complete. Neuroimmunology assessed Patient 03/13 - recommended to hold off on additional medications given nonspecific findings and to wait for serum autoimmune encephalitis panel w [facility] is still pending. This will take weeks to come back. The neurology team at [facility] will fo llow up on this and coordinate outpatient neurology follow up. She was transitioned off tube feeds on 03/14. Her insulin was down-scaled to glargine 2 0u with lispro 10u TID. Please watch her blood sugars and adjust as needed. Prior to coming to the hospital, she was on glargine 75u with 30u TID lispro. Stop her enoxaparin when she is more ambulatory. Vital Signs Per policy PPD for Facility Administer PPD upon arrival Diet Regular Regular diet- There are no restrictions to your diet. You may eat or drink whatever you pr efer, though healthy food choices are recommended. Restrictions- Please follow a diet with the following restrictions: Texture restriction: Mechanical soft- You should eat foods that are ground, chopped or soft so that it is easy for you to chew and swallow. Activity No activity restrictions Discharge Destination - Selection Complete Service Request Status Selected Specialties Address Phone Number Fax Number [facility] Selected [facility] [address] [place] [address] [facility] No service has been selected for the patient. Social Care Services No service has been selected for the patient. Follow Up: Future Appointments Department Dept Phone Center 02/11/2018 12:12 AM [facility] 14C [phone] Contact information for other follow-up providers JAMEL JOHNSON NP . Specialty: Nurse Practitioner Adult Health Contact information [facility] [address] [facility] [place] [address] Contact information for after-discharge care Discharge Destination [facility] . Specialty: [facility] Facility Contact information [phone] [phone] Discharge Physical Exam: Last 24 hour min/max Temp: 36.3 C (97.3 F) Temp Min: 36.3 C (97.3 F) Max: 36.9 C (98.4 F) Pulse: 69 Pulse Min: 65 Max: 94 Resp: 16 Resp Min: 15 Max: 18 BP: 104/50 BP Min: 104/50 Max: 124/94 SpO2: 100 % SpO2 Min: 90 % Max: 100 % Body mass index is 44.13 kg/m. General: no acute distress, pleasant HEENT/Neck: moist mucous membranes Cardiovascular: rrr Pulmonary: CTA-anteriorly Abdominal: soft, nt, nd, +bs Skin: warm, dry Musculoskeletal: moving all extremities Neuro: Alert, following commands and speaking in small sentences, eyes tracking, smiling, l aughing at jokes (patient does go through periods of somnolence still) Kassi Andrade MD Family Medicine, PGY-3 [facility] Pager # [phone] Associated attestation - Radha Velarde MD - 03/15/2018 10:50 AM PDTGeneral Medicine Team 2 Attending Note I have seen and examined Ms. Reeves and agree with discharge summary as documented by Dr. Andrade. Briefly, pt is a 62 y/o lady with HFpEF, HTN, DM II, OLIVIA transferred from OSH to [facility] MICU with acute hypoxic respiratory failure secondary to metapneumovirus PNA with hospital course complicated by superimposed bacterial PNA, ARDS and toxic metabolic encephalopathy. She is medically stable for discharge to [facility] with Neurology follow- up as outpatient. RADHA VELARDE MD Pager - [phone] [employer] Development Engineerbinding end stitcher Director, Clinical Hospitalist Service Clinical and Medicine Teaching Hospitalist Services [facility] I spent more than 25 minutes [id number] with the patient of which greater than 50% was sp ent counseling the patient regarding encephalopathy. documented in this encounter Medications at Time of Discharge + + + +---------+ + + | Medication | Sig | Dispensed | Refills | Start | End Date | | | | | | Date | | + + + +---------+ + + | albuterol 90 | Inhale 2 puffs by | | 0 | | | | mcg/actuation | mouth every six | | | | | | inhalation HFA | hours as needed. | | | | | | aerosol inhaler | | | | | | + + + +---------+ + + | amLODIPine 10 mg | Take 1 tablet by | 30 | 1 | 03/15/20 | | | oral tablet | mouth once daily. | tablet | | 18 | | + + + +---------+ + + | aspirin chewable | Chew and swallow 1 | 30 | 1 | 03/15/20 | | | 81 mg oral | tablet once daily. | tablet | | 18 | | | tablet,chewable | | | | | | + + + +---------+ + + | | Inhale 2 puffs by | | 0 | | | | budesonide-formotero | mouth two times | | | | | | l 160-4.5 | daily. Indications: | | | | | | mcg/actuation | Maintenance Therapy | | | | | | inhalation HFA | for Asthma | | | | | | aerosol | | | | | | | inhalerIndications: | | | | | | | Maintenance Therapy | | | | | | | for Asthma | | | | | | + + + +---------+ + + | enoxaparin 40 | Inject 0.4 mL under | | 0 | 03/15/20 | | | mg/0.4 mL | the skin (SUBC) once | | | 18 | | | subcutaneous syringe | daily in the | | | | | | | evening. Until | | | | | | | patient becomes more | | | | | | | ambulatory. | | | | | + + + +---------+ + + | insulin aspart | Inject 10 Units | | 0 | 03/15/20 | | | U-100 (NOVOLOG | under the skin | | | 18 | | | FLEXPEN U-100 | (SUBC) three times | | | | | | INSULIN) 100 unit/mL | daily before meals. | | | | | | subcutaneous | Adjust as needed | | | | | | insulin pen | based off CBGs | | | | | + + + +---------+ + + | insulin glargine | Inject 20 Units | | 0 | 03/15/20 | | | 300 unit/mL (1.5 mL) | under the skin | | | 18 | | | subcutaneous | (SUBC) once daily at | | | | | | insulin pen | bedtime. Adjust as | | | | | | | needed based off | | | | | | | CBGs | | | | | + + + +---------+ + + | lisinopril 10 mg | Take 1 tablet by | | 0 | 03/15/20 | | | oral tablet | mouth once daily. | | | 18 | | + + + +---------+ + + | omeprazole 20 mg | Take 20 mg by mouth | | 0 | | | | oral capsule,delayed | once daily. | | | | | | release(DR/EC) | | | | | | + + + +---------+ + + | ondansetron ODT 4 | Dissolve 4 mg on | | 0 | | | | mg oral | tongue and swallow | | | | | | tablet,disintegratin | three times daily as | | | | | | g | needed. | | | | | + + + +---------+ + + | potassium chloride | Take 10 mEq by mouth | | 0 | | | | SR 10 mEq oral | once daily. | | | | | | tablet,ER | | | | | | | particles/crystals | | | | | | + + + +---------+ + + | sertraline 100 mg | Take 100 mg by mouth | | 0 | | | | oral tablet | once daily. | | | | | + + + +---------+ + + documented as of this encounter Progress Notes George Andrade MD - 03/14/2018 9:38 AM PDT General Internal Medicine 2 Progress Note 24 Hour Events: Neuroimmunology saw patient yesterday -> less concerned for autoimmune process PET scan reviewed by hematology No acute events overnight Current Symptoms: Sleeping comfortably initially this morning Easily arousable Feeling cold this morning. Not hungry. Thinks her day yesterday went well. No pain. "miserable not being able to think" Ate 100% of her meal yesterday Physical Examination: Last 24 hour min/max Temp: 36.7 C (98.1 F) Temp Min: 36.7 C (98.1 F) Max: 37.1 C (98.8 F) Pulse: 77 Pulse Min: 66 Max: 78 Resp: 18 Resp Min: 16 Max: 20 BP: 124/68 BP Min: 112/50 Max: 134/55 SpO2: 98 % SpO2 Min: 94 % Max: 99 % Body mass index is 45.43 kg/m. General: no acute distress, pleasant, responding more quickly to questions HEENT: NG tube in place Lungs: ct-A anteriorly Heart: rrr Abd: soft, nt, nd Neuro: alert, tracking with eyes, responding to simple questions Laboratory: BMP unremarkable CB > 160 > 187 > 216 Serum encephalitis panel still pending Imaging Interpretation: No new imaging Brief Summary: Sarah Reeves is a 62 y.o. Femalewith HTN, HFpEF, T2DM, OLIVIA initially transferred from [facility] to MICU for acute hypoxic respiratory failure requiring intubation (02/07) secondary to me tapneumovirus PNA. Extubated 02/20, transferred out of ICU 02/22. Hospital course complicated by superimposed bacterial PNA, ARDS, and now persistent toxic metabolic encephalopathy of un known etiology. Assessment and Plan Patients Hospital Problem List: Active Hospital Problems 1) Encephalopathy 3) ARDS (adult respiratory distress syndrome) ([facility]) 4) Pneumonia due to human metapneumovirus (hMPV) 5) HTN (hypertension) 6) SVT (supraventricular tachycardia) ([facility]) 7) Severe obesity (BMI >= 40) ([facility]) 8) (HFpEF) heart failure with preserved ejection fraction ([facility]) 9) T2DM (type 2 diabetes mellitus) ([facility]) 10) Abnormal ventricular wall motion 11) Moderate protein-calorie malnutrition (HCC) Resolved Hospital Problems 12) Leukocytosis 13) CKD (chronic kidney disease) #Toxic metabolic encephalopathy: s/p 3 days of IV steroids and finished 5 days of IVIG (last dose Sun 03/10). Neurology follo wing. Will consider starting Rituximab in house. Quant gold negative. PET scan reviewed by h ematology and less concerning for underlying hematologic malignancy. Neuroimmunology evaluat ed patient yesterday. Initial concern was for autoimmune encephalitis but now neuroimmunolog y yesterday less convinced of this fact and not recommending additional medications. -continue to monitor daily - watch for recovery -appreciate neurology and neuroimmunology recs as necessary -neurology to coordinate outpatient neurology f/u -f/u serum encephalitis panel -will anticipate discharge tomorrow to SNF #T2DM: CBGs stable over last 24 hours. However now NG tube being pulled, patient taking 100% PO. W ill transition back to her home insulin types, glargine and aspart. Home insulin is 75u and aspart 30u TID. -will start with glargine 20u, lispro 10u TID with meals, + ISS moderate. -adjust insulins as necessary No significant changes to rest of plan below Pneumonia, aspiration ARDS (adult respiratory distress syndrome) (HCC) Pneumonia due to human metapneumovirus (hMPV) Completed course of antibiotics for PNA while still in ICU. Pt's presentation was more cons istent with aspiration rather than pneumonia -No further therapy required Sinusitis-treated with augmentin Chronic heart failure with preserved ejection fraction (HCC) Regional wall movement abnormality, presumed coronary artery disease. No evidence of he art failure thus far. -baby aspirin -continue atorvastin 80mg -[id number] -carvedilol HTN(hypertension): -continue carvedilol, lisinopril CKD (chronic kidney disease):Cr peakedat 1.56, stable Cr with no evidence of volume ove rload or hypovolemic state SVT (supraventricular tachycardia):Transitioned form metop to carvedilol at OSH with no p ersistent SVT in house Stable Chronic Issues #Severe obesity (BMI >= 40) Diet: soft mechanical -> appreciate speech swallow repeat eval Prophylaxis:enoxaparin 40 Code:full Surrogate Decision Maker Primary Surrogate Decision Maker Latanya Gunter Sister [phone] Secondary Surrogate Decision Maker Mr. Reeves Dispo: likely tomorrow to SNF Seen and evaluated with attending Radha Velarde MD who agrees with my assessment and plan u nless otherwise stated. Kassi Andrade MD Family Medicine, PGY-3 [facility] Pager # [phone] Radha Li MD - 01/2018 9:35 AM PDT GENERAL INTERNAL MEDICINE FACULTY PROGRESS NOTE - GM 2 Attending Physician: Radha Velarde MD Hospital Day: 31 PCP: Jamel Johnson NP Patient's Name: Sarah Reeves Today's Date: 03/14/2018 I personally interviewed the patient, performed the marcano elements of the physical examinatio n, and personally formulated the assessment and plan with the resident. I agree with Dr. Hayes's documentation, except as noted or expanded upon below. Current Medications Current Facility-Administered Medications Medication Dose Route Frequency Last Rate amLODIPine (NORVASC) tablet 10 mg 10 mg feeding tube DAILY aspirin chewable tablet 81 mg 81 mg feeding tube DAILY atorvastatin (LIPITOR) tablet 80 mg 80 mg feeding tube DAILY budesonide (PULMICORT) 0.5 mg/2 mL nebulizer suspension 0.5 mg 0.5 mg inhalation BID carvedilol (COREG) tablet 25 mg 25 mg feeding tube BID enoxaparin (LOVENOX) injection 40 mg 40 mg subcutaneous QPM guar gum (BENEFIBER) oral powder 1 packet 1 packet feeding tube DAILY insulin glargine (LANTUS) injection 20 Units 20 Units subcutaneous QAM insulin lispro (HUMALOG) injection 10 Units 10 Units subcutaneous TID W/MEALS insulin lispro (HUMALOG) injection subcutaneous QID lisinopril (PRINIVIL) tablet 10 mg 10 mg oral DAILY melatonin tablet 3 mg 3 mg feeding tube QPM miconazole (SECURA) 2 % extra thick cream topical BID nystatin (MYCOSTATIN) powder topical BID nystatin-zinc oxide-lidocaine (NDX) ointment (compound) topical TID probiotic kefir (KEYONNA'S KEFIR) feeding tube TID probiotic yogurt (KEYONNA'S YOGURT) oral BID QUEtiapine (SEROQUEL) tablet 25 mg 25 mg feeding tube QPM sertraline (ZOLOFT) tablet 100 mg 100 mg feeding tube DAILY Current Facility-Administered Medications Medication Dose Route Frequency Last Rate dextrose 50 % in water IV 25 mL 25 mL intravenous PRN glucagon (GLUCAGEN) injection 1 mg 1 mg intramuscular PRN glucose chewable tablet 16 g 16 g oral PRN influenza vaccine (FLUZONE) (PF) IM injection (age 3 years or greater) 0.5 mL 0.5 mL i ntramuscular Day of Discharge ipratropium-albuterol (DUO-NEB) nebulizer solution 3 mL 3 mL inhalation Q6H PRN menthol-zinc oxide (CALAZIME) topical paste 0.2%-16.5% topical QID PRN polyethylene glycol (MIRALAX) packet 34 g 34 g feeding tube TID PRN senna (SENOKOT) liquid 17.6 mg 10 mL feeding tube BID PRN white petrolatum-mineral oil-lanolin (LACRILUBE) 83-15 % ophthalmic ointment Both Eye s PRN ASSESSMENT/PLAN Problem List: 1. Acute hypoxic respiratory failure secondary to metapneumovirus PNA 2. Superimposed bacterial PNA 3. ARDS 4. Toxic metabolic encephalopathy 5. Moderate protein-calorie malnutrition 6. Right gluteal wound 7. Hyponatremia 8. HFpEF 9. HTN 10. DM II 11. OLIVIA Mr. Reeves is a 62 y/o lady with HFpEF, HTN, DM II, OLIVIA transferred from OSH to [facility] MICU with acute hypoxic respiratory failure secondary to metapneumovirus PNA with hospital cours e complicated by superimposed bacterial PNA, ARDS and toxic metabolic encephalopathy. Patient seen by Neurology and Neuroimmunology and thought autoimmune encephalitis less like ly and would not start rituximab. S/p course of IVIG and steroids. Follow-up pending serum/a utoimmune epilepsy panel. Can discontinue DHT today, adjust insulin. Appreciate Hematology, Neurology and Neuroimmunology involvement. Anticipate dc to SNF tomorrow. RADHA VELARDE MD Pager - [phone] [employer] Development Engineerbinding end stitcher Director, Clinical Hospitalist Service Clinical and Medicine Teaching Hospitalist Services [facility] I have spent more than 35 minutes with the patient of which more than 50% was spent day camp counselor ing regarding toxic metabolic encephalopathy. George Schilling MD - 12/2017 10:32 AM PDT General Internal Medicine 2 Progress Note 24 Hour Events: -PET Scan Yesterday -calorie count 300 - however NPO yesterday for breakfast and lunch Current Symptoms: -doing well this morning, feels cold. Not hungry. Not in pain. Doesn't know how she always gets twisted up in bed. -remembers some of her scan yesterday, was kind of a blur though. Had ativan with CT Physical Examination: Last 24 hour min/max Temp: 36.6 C (97.9 F) Temp Min: 36.2 C (97.2 F) Max: 36.7 C (98.1 F) Pulse: 68 Pulse Min: 63 Max: 76 Resp: 20 Resp Min: 16 Max: 20 BP: 109/51 BP Min: 109/51 Max: 134/73 SpO2: 96 % SpO2 Min: 91 % Max: 98 % Body mass index is 45.11 kg/m. General: no acute distress, alert, tracking with eyes, responding to simple questions HEENT: moist mucous membranes, NG tube in place Lungs: CTA anteriorly Heart: rrr, no m/r/g Abd: soft, nt, nd Neuro: alert, tracking with eyes Laboratory Interpretation: BMP Unremarkable Glucose: 170 > 158 > 135 > 129 > 106 Quant gold- negative 03/03 [facility]immune [facility] panel - villarreal negative Meningitis/Encephalitis PCR - negative Imaging Interpretation: PET Head and Neck to Mid Thighs 03/12/2018 IMPRESSION: 1. Diffusely increased bone marrow tracer uptake in the axial and appendicular skeleton, in cluding all vertebral bodies and pelvis, multiple ribs, as well as bilateral proximal femurs . This is a nonspecific finding and likely indicates hyperplastic bone marrow of unknown suzi ology. 2. Diffusely increased tracer uptake throughout the liver, which may be seen in overactivat ion of the reticuloendothelial system. 3. No discrete evidence of malignancy. Brief Summary: Sarah Reeves is a 62 y.o. Femalewith HTN, HFpEF, T2DM, OLIVIA initially transferred from [facility] to MICU for acute hypoxic respiratory failure requiring intubation (02/07) secondary to me tapneumovirus PNA. Extubated 02/20, transferred out of ICU 02/22. Hospital course complicated by superimposed bacterial PNA, ARDS, and now persistent toxic metabolic encephalopathy likel y secondary to autoimmune encephalitis. Assessment and Plan Patients Hospital Problem List: Active Hospital Problems 1) *Encephalomyelitis, autoimmune 3) ARDS (adult respiratory distress syndrome) (HCC) 4) Pneumonia due to human metapneumovirus (hMPV) 5) Leukocytosis 6) HTN (hypertension) 7) SVT (supraventricular tachycardia) (HCC) 8) Severe obesity (BMI >= 40) (HCC) 9) (HFpEF) heart failure with preserved ejection fraction (HCC) 10) T2DM (type 2 diabetes mellitus) (HCC) 11) Abnormal ventricular wall motion 12) Moderate protein-calorie malnutrition (HCC) Resolved Hospital Problems 13) CKD (chronic kidney disease) #Toxic metabolic encephalopathy: #Autoimmune Encephalitis s/p 3 days of IV steroids and finished 5 days of IVIG (last dose Sun 03/10). Neurology follo wing. Will consider starting Rituximab in house. Quant gold negative. -discussed PET scan with Hematology - not too concerned based of PET scan read of hematolo gic malignancy from the read but will discuss. -appreciate neurology and neuroimmunology recs as necessary - clarification of outpatient plan for SNF discharge purposes (where to get neurology fol low up- patient from [facility], Sister lives in [facility]) -f/u serum encephalitis panel #T2DM: Endotool discontinued on 03/08. Patient now trending normoglycemic. -will adjust NPH down to 22u TID with meals to prevent hypoglycemia -once NG tube out (possibly by tomorrow) and if eating well, will transition back to glarg ine, aspart. (patient's home dose was 75u glargine, aspart 30u TID, will not start at this h igh of dose though) No significant changes to rest of plan below Pneumonia, aspiration ARDS (adult respiratory distress syndrome) (HCC) Pneumonia due to human metapneumovirus (hMPV) Completed course of antibiotics for PNA while still in ICU. Pt's presentation was more cons istent with aspiration rather than pneumonia -No further therapy required Sinusitis-treated with augmentin Chronic heart failure with preserved ejection fraction (HCC) Regional wall movement abnormality, presumed coronary artery disease. No evidence of he art failure thus far. -baby aspirin -continue atorvastin 80mg -[id number] -carvedilol HTN(hypertension): -continue carvedilol, lisinopril CKD (chronic kidney disease):Cr peakedat 1.56, stable Cr with no evidence of volume ove rload or hypovolemic state SVT (supraventricular tachycardia):Transitioned form metop to carvedilol at OSH with no p ersistent SVT in house Stable Chronic Issues #Severe obesity (BMI >= 40) Diet: tube feeding - PO soft mechanical as able - needs assistance with this Prophylaxis:enoxaparin 40 Code:full Surrogate Decision Maker Primary Surrogate Decision Maker Latanya Gunter Sister [phone] Secondary Surrogate Decision Maker Mr. Reeves Dispo: possibly by Sunday - pending Neuro and Neuroimmunology plan Seen and evaluated with attending Radha Velarde MD who agrees with my assessment and plan u nless otherwise stated. Kassi Andrade MD Family Medicine, PGY-3 [facility] Pager # [phone] Radha Li MD - 12/2017 9:46 AM PDT GENERAL INTERNAL MEDICINE FACULTY PROGRESS NOTE - GM 2 Attending Physician: Radha Velarde MD Hospital Day: 30 PCP: Jamel Johnson NP Patient's Name: Sarah Reeves Today's Date: 03/13/2018 I personally interviewed the patient, performed the marcano elements of the physical examinatio n, and personally formulated the assessment and plan with the resident. I agree with Dr. Hayes's documentation, except as noted or expanded upon below. Current Medications Current Facility-Administered Medications Medication Dose Route Frequency Last Rate amLODIPine (NORVASC) tablet 10 mg 10 mg feeding tube DAILY aspirin chewable tablet 81 mg 81 mg feeding tube DAILY atorvastatin (LIPITOR) tablet 80 mg 80 mg feeding tube DAILY budesonide (PULMICORT) 0.5 mg/2 mL nebulizer suspension 0.5 mg 0.5 mg inhalation BID carvedilol (COREG) tablet 25 mg 25 mg feeding tube BID enoxaparin (LOVENOX) injection 40 mg 40 mg subcutaneous QPM guar gum (BENEFIBER) oral powder 1 packet 1 packet feeding tube DAILY insulin lispro (HUMALOG) injection subcutaneous QID insulin NPH (HUMULIN N) injection 22 Units 22 Units subcutaneous TID lisinopril (PRINIVIL) tablet 10 mg 10 mg oral DAILY melatonin tablet 3 mg 3 mg feeding tube QPM miconazole (SECURA) 2 % extra thick cream topical BID nystatin (MYCOSTATIN) powder topical BID nystatin-zinc oxide-lidocaine (NDX) ointment (compound) topical TID probiotic kefir (KEYONNA'S KEFIR) feeding tube TID QUEtiapine (SEROQUEL) tablet 25 mg 25 mg feeding tube QPM sertraline (ZOLOFT) tablet 100 mg 100 mg feeding tube DAILY Current Facility-Administered Medications Medication Dose Route Frequency Last Rate dextrose 50 % in water IV 25 mL 25 mL intravenous PRN glucagon (GLUCAGEN) injection 1 mg 1 mg intramuscular PRN glucose chewable tablet 16 g 16 g oral PRN influenza vaccine (FLUZONE) (PF) IM injection (age 3 years or greater) 0.5 mL 0.5 mL i ntramuscular Day of Discharge ipratropium-albuterol (DUO-NEB) nebulizer solution 3 mL 3 mL inhalation Q6H PRN menthol-zinc oxide (CALAZIME) topical paste 0.2%-16.5% topical QID PRN polyethylene glycol (MIRALAX) packet 34 g 34 g feeding tube TID PRN senna (SENOKOT) liquid 17.6 mg 10 mL feeding tube BID PRN white petrolatum-mineral oil-lanolin (LACRILUBE) 83-15 % ophthalmic ointment Both Eye s PRN ASSESSMENT/PLAN Problem List: 1. Acute hypoxic respiratory failure secondary to metapneumovirus PNA 2. Superimposed bacterial PNA 3. ARDS 4. Toxic metabolic encephalopathy secondary to autoimmune encephalitis 5. Moderate protein-calorie malnutrition 6. Right gluteal wound 7. Hyponatremia 8. HFpEF 9. HTN 10. DM II 11. OLIVIA Mr. Reeves is a 62 y/o lady with HFpEF, HTN, DM II, OLIVIA transferred from OSH to [facility] MICU with acute hypoxic respiratory failure secondary to metapneumovirus PNA with hospital cours e complicated by superimposed bacterial PNA, ARDS and toxic metabolic encephalopathy seconda ry to autoimmune encephalitis. Now s/p course of IVIG and steroids. May start rituximab. Decrease insulin regimen. Will di scuss results of PET with Hematology. Follow-up pending serum/autoimmune epilepsy panel. Con tinue calorie count and anticipate may be able to discontinue DHT in 48-72 hours. Appreciate Hematology, Neurology and Neuroimmunology involvement. RADHA VELARDE MD Pager - [phone] Materials Development Engineerbinding end stitcher Director, Clinical Hospitalist Service Clinical and Medicine Teaching Hospitalist Services [facility] I have spent more than 35 minutes with the patient of which more than 50% was spent day camp counselor ing regarding autoimmune encephalitis. aMarvin england RN - 11/2017 3:51 PM PDTWound location: R gluteal Follow up for on admission perineal and R gluteal skin breakdown in the setting of decrease d activity, AMS, incontinence of stool and urine. Perineal and intergluteal skin is moist, pink, erythematous with scaling consistent with cu taneous candidiasis. There is an ~ 3 cm x 0.75 cm x unknown depth eschar present on the R gl table mountain that is lifting at the edges. There are also 2 oval wounds in the intergluteal cleft th at extend from the eschar of the original wound. Distal wound is 2 cm x 0.5 cm x 0.2 cm and proximal wound is 1 cm x 0.5 cm x 0.2 cm - both with pink wound bed. Due to frequent incontinence episodes, it will be extremely difficult to keep a dressing in tact in that area. Continue with Barrier cream which will be the dressing, promoting autoly tic debridement in a moist wound environment. Continue with the zinc based barrier cream wi th antifungal coverage- secura extra thick (zinc + 2% miconazole). Incontinence: 1. Cleanse skin with a gentle barrier wipe 2. Apply a thick layer of barrier cream - Secura Extra Thick 3. With subsequent incontinent episodes, clean off stool/urine and the top layer of the bar rier cream only. Do not clean down to skin level more than once daily- this reduces the amou nt of mechanical friction to irritated skin 5. Do not use incontinence briefs as these trap moisture and heat against the irritated ski n. Place incontinence pad under patient and change as needed - if briefs are used leave them open on the sides to promote air flow. Please leave the briefs OPEN!! 6. Provide frequent (at least q 2 hours) pericare. If possible initiate q 2 hour toileting program- offer bedpan/urinal q2 hours and prnElectronically signed by Marvin Waddell RN at 11/2017 3:58 PM Shakir, George Zepeda MD - 03/12/2018 10:33 AM PDT General Internal Medicine 2 Progress Note 24 Hour Events: -no acute events overnight -NPO at 4AM for planned PET -ate ~1000 calories yesterday Current Symptoms: Responding in 1-3 word answers, shaking head yes and no as well -feels tired and cold this morning -not hungry. Not in pain. Doesn't want to watch TV this morning -likes the cooking channel Physical Examination: Last 24 hour min/max Temp: 36.8 C (98.2 F) Temp Min: 36.7 C (98.1 F) Max: 37.3 C (99.1 F) Pulse: 70 Pulse Min: 68 Max: 80 Resp: 16 Resp Min: 16 Max: 18 BP: 118/63 BP Min: 117/57 Max: 138/54 SpO2: 92 % SpO2 Min: 92 % Max: 98 % Body mass index is 44.31 kg/m. General: no acute distress, alert, tracking with eyes, responding to simple questions HEENT: moist mucous membranes, NG tube in place Lungs: CTA anteriorly Heart: rrr, no m/r/g Abd: soft, nt, nd Neuro: alert, tracking with eyes Laboratory Interpretation: CMP, BMP unremarkable Glucose: 185 > 250 > 286 > 284 > 255 Quant gold - in process [facility] 1 serum autoimmune encephalitis panel - in process [facility] 1 CSF autoimmune encephalitis panel - villarreal negative Meningitis/Encephalitis PCR - negative Imaging Interpretation: No new Brief Summary: Sarah Reeves is a 62 y.o. Femalewith HTN, HFpEF, T2DM, OLIVIA initially transferred from [facility] to MICU for acute hypoxic respiratory failure requiring intubation (02/07) secondary to me tapneumovirus PNA. Extubated 02/20, transferred out of ICU 02/22. Hospital course complicated by superimposed bacterial PNA, ARDS, and now persistent toxic metabolic encephalopathy likel y secondary to autoimmune encephalitis. Assessment and Plan Patients Hospital Problem List: Active Hospital Problems 1) *Encephalomyelitis, autoimmune 3) ARDS (adult respiratory distress syndrome) (HCC) 4) Pneumonia due to human metapneumovirus (hMPV) 5) Leukocytosis 6) HTN (hypertension) 7) SVT (supraventricular tachycardia) (HCC) 8) Severe obesity (BMI >= 40) (HCC) 9) (HFpEF) heart failure with preserved ejection fraction (HCC) 10) T2DM (type 2 diabetes mellitus) (HCC) 11) Abnormal ventricular wall motion 12) Moderate protein-calorie malnutrition (HCC) Resolved Hospital Problems 13) CKD (chronic kidney disease) Obtaining PET scan today at 10AM. Discussed pending quant gold with lab - reports should be back by later today. Otherwise no significant changes to the plan. Appreciate neurology rec ommendations as necessary. #Toxic metabolic encephalopathy: #Autoimmune Encephalitis s/p 3 days of IV steroids and finished 5 days of IVIG (last dose Sun 03/10). Neurology follo wing. Recommending getting PET Scan. Will consider starting Rituximab in house. -appreciate neurology recs as necessary - clarification of outpatient plan for SNF discharge purposes (where to get neurology follow up- patient from [facility], Sister henny ledezma in [facility]) -PET scan today -f/u serum encephalitis panel #T2DM: Endotool discontinued on 03/08. Hyperglycemic since off, ~200 range. -increase NPH to 30u TID with SSI -up-titrate NPH as necessary - missed morning NPH due to PET. No significant changes to rest of plan below Pneumonia, aspiration ARDS (adult respiratory distress syndrome) (HCC) Pneumonia due to human metapneumovirus (hMPV) Completed course of antibiotics for PNA while still in ICU. Pt's presentation was more cons istent with aspiration rather than pneumonia -No further therapy required Sinusitis-treated with augmentin Chronic heart failure with preserved ejection fraction (HCC) Regional wall movement abnormality, presumed coronary artery disease. No evidence of he art failure thus far. -baby aspirin -continue atorvastin 80mg -[id number] -carvedilol HTN(hypertension): -continue carvedilol, lisinopril CKD (chronic kidney disease):Cr peakedat 1.56, stable Cr with no evidence of volume ove rload or hypovolemic state SVT (supraventricular tachycardia):Transitioned form metop to carvedilol at OSH with no p ersistent SVT in house Stable Chronic Issues #Severe obesity (BMI >= 40) Diet: tube feeding - PO soft mechanical as able - needs assistance with this Prophylaxis:enoxaparin 40 Code:full Surrogate Decision Maker Primary Surrogate Decision Maker Latanya Gunter Sister [phone] Secondary Surrogate Decision Maker Mr. Reeves Dispo: pending Neurology, rituximab plan Seen and evaluated with attending Radha Velarde MD who agrees with my assessment and plan u nless otherwise stated. Kassi Andrade MD Family Medicine, PGY-3 [facility] Pager # [phone] adha Velarde MD - 11/2017 9:57 AM PDT GENERAL INTERNAL MEDICINE FACULTY PROGRESS NOTE - GM 2 Attending Physician: Radha Velarde MD Hospital Day: 29 PCP: Jamel Johnson NP Patient's Name: Sarah Reeves Today's Date: 03/12/2018 I personally interviewed the patient, performed the marcano elements of the physical examinatio n, and personally formulated the assessment and plan with the resident. I agree with Dr. Hayes's documentation, except as noted or expanded upon below. Current Medications Current Facility-Administered Medications Medication Dose Route Frequency Last Rate amLODIPine (NORVASC) tablet 10 mg 10 mg feeding tube DAILY aspirin chewable tablet 81 mg 81 mg feeding tube DAILY atorvastatin (LIPITOR) tablet 80 mg 80 mg feeding tube DAILY budesonide (PULMICORT) 0.5 mg/2 mL nebulizer suspension 0.5 mg 0.5 mg inhalation BID carvedilol (COREG) tablet 25 mg 25 mg feeding tube BID enoxaparin (LOVENOX) injection 40 mg 40 mg subcutaneous QPM guar gum (BENEFIBER) oral powder 1 packet 1 packet feeding tube DAILY insulin lispro (HUMALOG) injection subcutaneous QID insulin NPH (HUMULIN N) injection 30 Units 30 Units subcutaneous TID lisinopril (PRINIVIL) tablet 10 mg 10 mg oral DAILY melatonin tablet 3 mg 3 mg feeding tube QPM miconazole (SECURA) 2 % extra thick cream topical BID nystatin (MYCOSTATIN) powder topical BID nystatin-zinc oxide-lidocaine (NDX) ointment (compound) topical TID probiotic kefir (KEYONNA'S KEFIR) feeding tube TID QUEtiapine (SEROQUEL) tablet 25 mg 25 mg feeding tube QPM sertraline (ZOLOFT) tablet 100 mg 100 mg feeding tube DAILY tuberculin (TUBERSOL, APLISOL) injection 5 Units 5 Units intradermal ONCE Current Facility-Administered Medications Medication Dose Route Frequency Last Rate dextrose 50 % in water IV 25 mL 25 mL intravenous PRN glucagon (GLUCAGEN) injection 1 mg 1 mg intramuscular PRN glucose chewable tablet 16 g 16 g oral PRN influenza vaccine (FLUZONE) (PF) IM injection (age 3 years or greater) 0.5 mL 0.5 mL i ntramuscular Day of Discharge ipratropium-albuterol (DUO-NEB) nebulizer solution 3 mL 3 mL inhalation Q6H PRN LORazepam (ATIVAN) injection 1 mg 1 mg intravenous ONCE NEEDED menthol-zinc oxide (CALAZIME) topical paste 0.2%-16.5% topical QID PRN polyethylene glycol (MIRALAX) packet 34 g 34 g feeding tube TID PRN senna (SENOKOT) liquid 17.6 mg 10 mL feeding tube BID PRN white petrolatum-mineral oil-lanolin (LACRILUBE) 83-15 % ophthalmic ointment Both Eye s PRN ASSESSMENT/PLAN Problem List: 1. Acute hypoxic respiratory failure secondary to metapneumovirus PNA 2. Superimposed bacterial PNA 3. ARDS 4. Toxic metabolic encephalopathy secondary to autoimmune encephalitis 5. Moderate protein-calorie malnutrition 6. Hyponatremia 7. HFpEF 8. HTN 9. DM II 10. OLIVIA Mr. Reeves is a 62 y/o lady with HFpEF, HTN, DM II, OLIVIA transferred from OSH to [facility] MICU with acute hypoxic respiratory failure secondary to metapneumovirus PNA with hospital cours e complicated by superimposed bacterial PNA, ARDS and toxic metabolic encephalopathy seconda ry to autoimmune encephalitis. Now s/p course of IVIG and steroids. Plan for PET today at 10 am. Follow-up quant gold and pending serum/autoimmune epilepsy panel. Continue calorie count. Change CBC checks to q 72 h ours given stability. Appreciate Neurology involvement. RADHA VELARDE MD Pager - [phone] Materials Development Engineerbinding end stitcher Director, Clinical Hospitalist Service Clinical and Medicine Teaching Hospitalist Services [facility] I have spent more than 35 minutes with the patient of which more than 50% was spent day camp counselor ing regarding autoimmune encephalitis. George Schilling MD - 10:51 AM PDT General Internal Medicine 2 Progress Note 24 Hour Events: No acute events overnight Current Symptoms: -awake this morning, shaking head in response to questions -reports being OK this morning, answer to how was her night "miserable" -denies pain. -will latanya be here today? "probably" Physical Examination: Last 24 hour min/max Temp: 36.9 C (98.4 F) Temp Min: 36.3 C (97.3 F) Max: 37 C (98.6 F) Pulse: 72 Pulse Min: 69 Max: 80 Resp: 18 Resp Min: 18 Max: 20 BP: 125/46 BP Min: 109/60 Max: 153/66 SpO2: 95 % SpO2 Min: 94 % Max: 97 % Body mass index is 44.36 kg/m. Date 03/11/18 0700 - 03/12/18 0659 Shift 5153-7991 7791-8209 9791-6125 24 Hour Total I N T A K E I.V. 13 13 Other 1456 1456 Shift Total 1469 1469 O U T P U T Shift Total (mL/kg) Weight (kg) 125.2 125.2 125.2 125.2 General: no acute distress HEENT: moist mucous membranes Lungs: ct auscultation anterior Heart: rrr, no m/r/g Abd: soft, nt, nd Neuro: alert and oriented Laboratory Interpretation: CMP, BMP unremarkable Glucose: 185 > 250 > 286 > 284 > 255 Quant gold - in process Frost-ESN 1 serum autoimmune encephalitis panel - in process Frost-ESN 1 CSF autoimmune encephalitis panel - villarreal negative Meningitis/Encephalitis PCR - negative Imaging Interpretation: No new imaging Brief Summary: Sarah Reeves is a 62 y.o. Femalewith HTN, HFpEF, T2DM, OLIVIA initially transferred from [facility] to MICU for acute hypoxic respiratory failure requiring intubation (02/07) secondary to me tapneumovirus PNA. Extubated 02/20, transferred out of ICU 02/22. Hospital course complicated by superimposed bacterial PNA, ARDS, and now persistent toxic metabolic encephalopathy likel y secondary to autoimmune encephalitis. 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 Neurology follo wing. Recommending getting PET Scan. Will consider starting Rituximab in house. -appreciate neurology recs as necessary - clarification of outpatient plan for SNF dischar ge purposes (where to get neurology follow up- patient from [facility], Sister lives in her [place]) -PET scan scheduled for tomorrow at 10AM. NPO 6 hours prior (4AM) #T2DM: Endotool discontinued on 03/08. Hyperglycemic since off, ~200 range. -increase NPH to 30u TID with SSI -up-titrate NPH as necessary No significant changes to rest of plan below Pneumonia, aspiration ARDS (adult respiratory distress syndrome) (HCC) Pneumonia due to human metapneumovirus (hMPV) Completed course of antibiotics for PNA while still in ICU. Pt's presentation was more cons istent with aspiration rather than pneumonia -No further therapy required Sinusitis-treated with augmentin Chronic heart failure with preserved ejection fraction (HCC) Regional wall movement abnormality, presumed coronary artery disease. No evidence of he art failure thus far. -baby aspirin -continue atorvastin 80mg -[id number] -carvedilol HTN(hypertension): -continue carvedilol, lisinopril CKD (chronic kidney disease):Cr peakedat 1.56, stable Cr with no evidence of volume ove rload or hypovolemic state SVT (supraventricular tachycardia):Transitioned form metop to carvedilol at OSH with no p ersistent SVT in house Stable Chronic Issues #Severe obesity (BMI >= 40) Diet: tube feeding - PO soft mechanical as able - needs assistance with this Prophylaxis: enoxaparin 40 Code: full Surrogate Decision Maker Primary Surrogate Decision Maker Latanya Gunter Sister [phone] Secondary Surrogate Decision Maker Mr. Reeves Dispo: possibly end of this week - pending rituximab plan Seen and evaluated with attending Radah Velarde MD who agrees with my assessment and plan u nless otherwise stated. Kassi Andrade MD Family Medicine, PGY-3 [facility] Pager # [phone] Radha Li MD - 10:40 AM PDT GENERAL INTERNAL MEDICINE FACULTY PROGRESS NOTE - GM 2 Attending Physician: Radha Velarde MD Hospital Day: 28 PCP: Jamel Johnson NP Patient's Name: Sarah Reeves Today's Date: 03/11/2018 I personally interviewed the patient, performed the marcano elements of the physical examinatio n, and personally formulated the assessment and plan with the resident. I agree with Dr. Hayes's documentation, except as noted or expanded upon below. Current Medications Current Facility-Administered Medications Medication Dose Route Frequency Last Rate amLODIPine (NORVASC) tablet 10 mg 10 mg feeding tube DAILY aspirin chewable tablet 81 mg 81 mg feeding tube DAILY atorvastatin (LIPITOR) tablet 80 mg 80 mg feeding tube DAILY budesonide (PULMICORT) 0.5 mg/2 mL nebulizer suspension 0.5 mg 0.5 mg inhalation BID carvedilol (COREG) tablet 25 mg 25 mg feeding tube BID enoxaparin (LOVENOX) injection 40 mg 40 mg subcutaneous QPM guar gum (BENEFIBER) oral powder 1 packet 1 packet feeding tube DAILY insulin lispro (HUMALOG) injection subcutaneous QID insulin NPH (HUMULIN N) injection 30 Units 30 Units subcutaneous TID lisinopril (PRINIVIL) tablet 10 mg 10 mg oral DAILY melatonin tablet 3 mg 3 mg feeding tube QPM miconazole (SECURA) 2 % extra thick cream topical BID nystatin (MYCOSTATIN) powder topical BID nystatin-zinc oxide-lidocaine (NDX) ointment (compound) topical TID probiotic kefir (KEYONNA'S KEFIR) feeding tube TID QUEtiapine (SEROQUEL) tablet 50 mg 50 mg feeding tube QPM sertraline (ZOLOFT) tablet 100 mg 100 mg feeding tube DAILY Current Facility-Administered Medications Medication Dose Route Frequency Last Rate dextrose 50 % in water IV 25 mL 25 mL intravenous PRN glucagon (GLUCAGEN) injection 1 mg 1 mg intramuscular PRN glucagon (GLUCAGEN) injection 1 mg 1 mg intramuscular PRN glucose chewable tablet 16 g 16 g oral PRN influenza vaccine (FLUZONE) (PF) IM injection (age 3 years or greater) 0.5 mL 0.5 mL i ntramuscular Day of Discharge ipratropium-albuterol (DUO-NEB) nebulizer solution 3 mL 3 mL inhalation Q6H PRN menthol-zinc oxide (CALAZIME) topical paste 0.2%-16.5% topical QID PRN polyethylene glycol (MIRALAX) packet 34 g 34 g feeding tube TID PRN senna (SENOKOT) liquid 17.6 mg 10 mL feeding tube BID PRN white petrolatum-mineral oil-lanolin (LACRILUBE) 83-15 % ophthalmic ointment Both Eye s PRN ASSESSMENT/PLAN Problem List: 1. Acute hypoxic respiratory failure secondary to metapneumovirus PNA 2. Superimposed bacterial PNA 3. ARDS 4. Toxic metabolic encephalopathy secondary to autoimmune encephalitis 5. Moderate protein-calorie malnutrition 6. Hyponatremia 7. HFpEF 8. HTN 9. DM II 10. OLIVIA Mr. Reeves is a 62 y/o lady with HFpEF, HTN, DM II, OLIVIA transferred from OSH to [facility] MICU with acute hypoxic respiratory failure secondary to metapneumovirus PNA with hospital cours e complicated by superimposed bacterial PNA, ARDS and toxic metabolic encephalopathy seconda ry to autoimmune encephalitis. Finished course of IVIG yesterday. Plan for PET tomorrow at 10 am. Appreciate Neurology inv olvement. RADHA VELARDE MD Pager - [phone] Materials Development Engineerbinding end stitcher Director, Clinical Hospitalist Service Clinical and Medicine Teaching Hospitalist Services [facility] I have spent more than 35 minutes with the patient of which more than 50% was spent day camp counselor ing regarding autoimmune encephalitis. Lori Lowe MD - 03/10 7:35 AM PDT ATTENDING GM2 PROGRESS NOTE TODAY'S DATE: 03/10/2018 (HOSPITAL DAY 27) I personally interviewed the patient, performed the marcano elements of the physical examinatio n, and have noted my assessment and plan below 24 Hour Events none Subjective Pt much more talkative today. 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 She asked me about the "mystery of life" and then said "you have to keep moving along with life and you can't stop". Did not endorse pain of any kind; stated she slept well. Did not want the tv volume up but said "I like watching the pi ctures" Physical Examination BP 150/63 | Pulse 69 | Temp 36.7 C (98.1 F) | RR 17 | Ht 1.68 m (5' 6.14") | Wt 125.2 k g (276 lb) | SpO2 93% | BMI 44.36 kg/(m^2) Gen: more interactive; sometimes hesitant or slow response time CV: RRR with S1 S2 no change in soft murmur Lungs: clear anteriorly ABD: Pos BS, soft, non tender, no masses Ext: no change in mild edema Meds: No change in carvedilol, amlodipine, lisinopril; D4 of IVIG Labs Na 135, Bun 39, Cr 0.81 CBG>200 Assessment and Plan Toxic metabolic encephalopathy:Overall trajectory now understanding pt's history prior to admission fits with autoimmune encephalitis for which she has received 3 doses of high dose steroids and is currently on IVIG. Workup for a malignant cause has been negative except for 8mm nodule in chest (seen on chest CT). Pt still needs mammogram, c-scope and PET scan to complete malignancy workup. Cannot as of yet do PET scan due to hyperglycemia and need f or ongoing adjustment in insulin. Will plan accordingly. Await information from Neurology about immunosuppression given hepatitis b screen showing prior infection with now resolution as it may affect ability to give Rituxan. Overall, pt has had best day today in terms of engagement, level of arousal and participation. -Continue ivig --last day today -Await advice from neuroimmunology before moving to immunosuppressive agent -PET scan when hyperglycemia improved; outpt mammogram and c-scope to complete malignancy w orkup T2DM:Home regimen glargine 75+ 30u lispro with meals. With tube feeds, eating, high dose steroids and now IVIG in D5, pt's hyperglycemia required an insulin drip initially. Now adj usting scheduled insulin. Given ongoing hyperglycemia and high amounts of sliding scale insu jesse will increase NPH again today (1 unit in this pt drops CBG by 16 mg/dl) -increase NPH tid to 27 unit -Will need to monitor closely once ivig in D5 is stopped Tube feeds Protein calorie malnutrition, moderate Tube feeds required due to initial encephalopathy but now improving and pt is taking in ora ls with 1:1 assist. Given desire to remove tube when feasible, will start calorie count tod ay. -Calorie count x 3 day -1:1 assist for pt in eating given encephalopathy Pneumonia, aspiration ARDS (adult respiratory distress syndrome) (HCC) Pneumonia due to human metapneumovirus (hMPV) Pt's presentation in the ICU was more consistent with aspiration rather than pneumonia; how ever received full course of treatment Sinusitis-treated with augmentin Chronic heart failure with preserved ejection fraction (HCC) Regional wall movement abnormality, presumed coronary artery disease. No evidence of hea rt failure on exam though difficult -baby aspirin -statin increased from 10->80mg atorva daily -lisinopril restarted at 10mg -carvedilol 25 mg po bid HTN(hypertension): -continue carvedilol, lisinopril CKD (chronic kidney disease):Cr peakedat 1.56, stable Cr with no evidence of volume ove rload or hypovolemic state SVT (supraventricular tachycardia):Transitioned form metop to carvedilol at OSH with no p ersistent SVT in house Stable Chronic Issues #Severe obesity (BMI >= 40) Dispo: Dependent on next steps after IVIG which will finish tomorrow. Still need to obtain PET scan but can't do so until cbg better controlled. Will ask CM to start looking for jatin cement for later this week. Will need to establish full plan with neurology about treatment after IVIG. Lori Freeman MD Shakir, George Zepeda MD - 03/09 1:17 PM PDT General Internal Medicine 2 Progress Note 24 Hour Events: Transitioned off endotool yesterday Was able to eat some food PO yesterday with assistance of sister Latanya Current Symptoms: Latanya at bedside, has questions regarding detention plan and placement Sarah minimally interactive, responsive this morning. Denies being in pain. Physical Examination: Last 24 hour min/max Temp: 36.7 C (98.1 F) Temp Min: 36.5 C (97.7 F) Max: 36.8 C (98.2 F) Pulse: 69 Pulse Min: 64 Max: 79 Resp: 20 Resp Min: 16 Max: 20 BP: 122/51 BP Min: 116/51 Max: 177/105 SpO2: 97 % SpO2 Min: 94 % Max: 97 % Body mass index is 44.36 kg/m. Intake/Output Summary (Last 24 hours) at 03/09/18 1317 Last data filed at 03/09/18 1015 Gross per 24 hour Intake 1340 ml Output 0 ml Net 1340 ml General: NAD, awake, opening eyes and responding to name, intermittently smiling to jokes HEENT: moist mucous membranes, NG tube in place Lungs: clear Heart: rrr Abd: soft, nt, nd, +bs Neuro: alert, not vocalizing much this morning, not following commands Laboratory Interpretation: BMP - unremarkable Hep B core: + Hep B Surface Ab: + Hep B surface Ag: - Frost encephalitis panel PCR serum and CSF - in process CB > 244 > 260 > 268 > 251 Imaging Interpretation: No new imaging Brief Summary: Sarah Reeves is a 62 y.o. Femalewith HTN, HFpEF, T2DM, OLIVIA initially transferred from [facility] to MICU for acute hypoxic respiratory failure requiring intubation (02/07) secondary to me tapneumovirus PNA. Extubated 02/20, transferred out of ICU 02/22. Hospital course complicated by superimposed bacterial PNA, ARDS, and now persistent toxic metabolic encephalopathy likel y secondary to autoimmune encephalitis. Assessment and Plan No significant changes to the plan today. Toxic metabolic encephalopathy:Overall trajectory now understanding pt's history prior to admission fits with autoimmune encephalitis for which she has received 3 doses of high dose steroids and is currently on IVIG. 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 Wo rkup for a malignant cause has been negative except for 8mm nodule in chest (seen on chest C T). Pt still needs mammogram and c-scope to complete malignancy workup. -Continue IVIG, day 4/ today. Last dose tomorrow. -Hep B panel with evidence of prior infection with recovery. Per neurology, will discuss neuroimmunology tomorrow. -QF gold pending -will attempt PET scan on Sunday - patient must be able to sit still for 20 mins and off in sulin for a few hours. -may be starting rituximab on Sunday -Await QF gold and Hep B before initiation of rituxan therapy T2DM: Endotool discontinued on 03/08. Hyperglycemic since off, ~200 range. -increase NPH to 23u TID with aggressive SSI -up-titrate NPH as necessary Pneumonia, aspiration ARDS (adult respiratory distress syndrome) (HCC) Pneumonia due to human metapneumovirus (hMPV) Completed course of antibiotics for PNA while still in ICU. Pt's presentation was more cons istent with aspiration rather than pneumonia -No further therapy required Sinusitis-treated with augmentin Chronic heart failure with preserved ejection fraction (HCC) Regional wall movement abnormality, presumed coronary artery disease. No evidence of hea rt failure thus far. -baby aspirin -continue atorvastin 80mg -[id number] -carvedilol HTN(hypertension): -continue carvedilol, lisinopril CKD (chronic kidney disease):Cr peakedat 1.56, stable Cr with no evidence of volume ove rload or hypovolemic state SVT (supraventricular tachycardia):Transitioned form metop to carvedilol at OSH with no p ersistent SVT in house Stable Chronic Issues #Severe obesity (BMI >= 40) Diet: tube feeding - PO soft mechanical as able - needs assistance with this Prophylaxis: enoxaparin 40 Code: full Surrogate Decision Maker Primary Surrogate Decision Maker Latanya Gunter Sister [phone] Secondary Surrogate Decision Maker Mr. Reeves Dispo: possibly mid to late next week pending rituximab plan. Latanya prefers placement in [place] or closer to her home ([place]) but wherever would be best for her neurologic c are trumps her preferences. (e.x. She would be willing to drive to [place] if that is what she needs). Will discuss with CM. Seen and evaluated with attending Lori Freeman MD who agrees with my assessment and plan unl ess otherwise stated. Kassi Andrade MD Family Medicine, PGY-3 [facility] Pager # [phone] Associated attestation - Lori Freeman MD - 03/09/2018 1:38 PM PDTGENERAL MEDICINE ATTENDIN G PROGRESS NOTE ADMIT DATE: 02/11/2018 12:12 AM TODAY'S DATE: 03/09/2018 (HOSPITAL DAY 26) I personally interviewed the patient, performed the pertinent parts of the physical examina tion and personally formulated the plan with the GM resident, Dr. Andrade. I agree with the r esident's documentation and have documented any additions or exceptions. Discussed Hep B st atus (immune) with Neurology who will discuss with neuroimmunology to determine course of ac tion with rituxan or other immunosuppressive agents. Agree with plan to increase insulin. CM to start planning process for later next week. Problem List 1) *Toxic metabolic encephalopathy 2) ARDS (adult respiratory distress syndrome) (HCC) 3) Pneumonia due to human metapneumovirus (hMPV) 4) Leukocytosis 5) HTN (hypertension) 6) CKD (chronic kidney disease) 7) SVT (supraventricular tachycardia) (HCC) 8) Severe obesity (BMI >= 40) (HCC) 9) (HFpEF) heart failure with preserved ejection fraction (HCC) 10) T2DM (type 2 diabetes mellitus) (HCC) 11) Abnormal ventricular wall motion Lori Freeman MD Erikarashawn Barb Katelyn - 03/08/2018 1:09 PM PDT Neurology Inpatient [facility] Progress Note ID: Sarah Reeves is a 62 year old obese woman who presented on 02/10/18 in ARDS in the set ting of pneumonia, was extubated on 02/21/18 and has consistently been encephalopathic initia lly thought to have been metabolic in nature but further workup suggests a possible autoimmu ne or paraneoplastic etiology. Interval Events: - Day 3/5 of IVIG - Quantiferon gold sent out, can take up to 7 days to result - Hep B core and surface AB detected but Hep B surface antigen not detected - Spoke with sister today stating that the patient has had a long history of falls - SSA/SSB negative Neurologic ROS: Unable to assess due to encephalopathy, pt denies pain General ROS: Unable to assess due to encephalopathy states "She doesn't think so" PE: Constitutional: Obese woman lying comfortable in bed with NG tube in place. Neurological: Mental Status: Awake and alert, reports she is in a hospital but does not know the town or date. Can name phone and pen but not knuckles or pen point. Impaired recall. Can follow simp le commands Cranial Nerves: PERRL, Gaze conjugate, no preference. EOMI. Sensation intact V1-3 bilatera lly. No facial asymmetry. Hearing grossly intact. Palate elevates symmetrically, tongue m idline. Jarrell intact. Motor: Moves all extremities spontaneously against gravity, resistance with tone testing Sensation: Withdraws to noxious stimuli DTRs: Biceps Triceps Brachioradialis Knee Ankle Left 2+ 3+ 2+ 3+ 1+ Right 2+ 3+ 2+ 3+ 1+ Plantar response is flexors bilaterally HEENT: non icteric sclera; moist mucus membranes Cardiovascular: RRR Respiratory: normal work of breathing, room air Skin: no visible rash Labs: Recent Labs 03/08/18 0830 WBC 8.47 HB 12.4 HCT 39.9 PLT 256 Recent Labs 03/06/18 0526 03/07/18 0506 03/08/18 0830 NA 137 141 144 K 4.3 4.2 4.2 CL 106 108 109* BICARB 25 28 29 BUN 45* 47* 45* CR 1.02 1.05 0.90 CA 9.1 8.7 8.2* PO4 2.6 2.8 3.1 Recent Labs 03/06/18 0526 03/07/18 0506 03/08/18 0830 ALB 2.9* 2.8* 2.5* Hep B Core AB detected Hep B surface AB detected Hep B surface AG not detected IMAGING: No recent imaging Diagnosis: #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 Reeves is a 63 year old obese woman with persistent encephalopathy since 02/21 which was preceded by two months of increasing confusion, weakness and falls. Based o n time course this is not believed to be a metabolic encephalopathy and due to her robust im provement with steroids thought to be autoimmune vs paraneoplastic in nature. Pt continues to improve with IVIG. Imaging and labs have not revealed any signs of malignancy however a paraneoplastic panel is stille pending. Pt did have an elevated RF, CRP and ESR however this could also be due to her recent ARDS and pneumonia. No positive antibodies have been detec lisa. When pt is off insulin drip and can tolerate lying still for 20 minutes we will get a PET scan to finish malignancy workup. Due to the fact that her lab work shows evidence of a prior Hep B infection she is at risk for reactivation with rituximab, according to [facility] cristian delines they recommend the below in regards to monitoring a pt on rituximab who is at risk f or reactivation: To decrease the risk of HBV reactivation, we recommend that health care professional: Screen all patients for HBV infection before starting treatment with Arzerra or Rituxan by measuring hepatitis B surface antigen (HBsAg) and hepatitis B core antibody (anti-HBc). Consult with hepatitis experts regarding monitoring and use of HBV antiviral therapy when s creening identifies patients at risk of HBV reactivation due to evidence of prior HBV infect ion. Monitor patients with evidence of prior HBV infection for clinical and laboratory signs of hepatitis B or HBV reactivation during Arzerra or Rituxan therapy and for several months the reafter, since reactivations have occurred several months following completion of therapy wi th these drugs. In patients who develop reactivation of HBV while on Arzerra or Rituxan, immediately discon tinue the drug and start appropriate treatment for HBV. Also discontinue any chemotherapy th e patient is receiving until the HBV infection is controlled or resolved. Because of insuffi cient data, no recommendation can be made regarding the resumption of Arzerra or Rituxan in patients who develop HBV reactivation hepatitis. Plan: - Continue IVIG x5 days (today is day 3/5) - Follow up with [facility] on Sunday regarding paraneoplastic panel - F/U quantiferon test - Consult hepatology regarding use of Rituximab #Diet: NG tubes feeds at night, Diabetic diet during the day #DVT Ppx: Lovenox #Dispo: Pending IVIG course This patient has been seen and staffed with Dr. Fraire, attending neurologist, who agree s with the above assessment and plan. Barb Katelyn Marta Tam MD Pager #[phone] Associated attestation - Ramonita Tam MD - 03/11/2018 12:52 PM PDTI agree with [facility] medical student note. Please see my and my attending's note from this date for any update s or changes to the assessment and plan. Ramonita Tam Pager #[phone] Lori Freeman MD - 03/08/2018 11:56 AM PDTFormatting of this note might be different from e original. ATTENDING 2 PROGRESS NOTE TODAY'S DATE: 03/08/2018 (HOSPITAL DAY 25) I personally interviewed the patient, performed the marcano elements of the physical examinati on, and have noted my assessment and plan. This serves as the note of the day for the 2 t [facility] 24 Hour Events Pt continues to intermittently vocalize but still restless and not able to fully follow all questions or asks Subjective Per Latanya, pt continues to talk with her more than we are seeing; still restless especially at night Physical Examination BP 135/58 | Pulse 65 | Temp 36.8 C (98.2 F) | RR 20 | Ht 1.68 m (5' 6.14") | Wt 125.2 k g (276 lb) | SpO2 96% | BMI 44.36 kg/(m^2) Gen:NAD, always sleepier in the morning compared to afternoon CV: RRR with S1 S2, no change in soft murmur; no change in mild tenderness at right upper c hest Lungs: clear but performed anteriorly ABD: Pos BS, soft, non tender, no masses Ext: no change in edema Meds: Reviewed; no changes; remains on insulin drip Labs Bun 45, normal Cbc RIKA panel neg Encephalitis panel negative Paraneoplastic panel pending HIV negative Pending QF gold, Hep B Assessment and Plan Toxic metabolic encephalopathy:Overall trajectory now understanding pt's history prior to admission fits with autoimmune encephalitis for which she has received 3 doses of high dose steroids and is currently on IVIG. 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 Wo rkup for a malignant cause has been negative except for 8mm nodule in chest (seen on chest C T). Pt still needs mammogram and c-scope to complete malignancy workup. Cannot as of yet d o PET scan due to hyperglycemia and need for insulin drip. Will plan accordingly. -Continue ivig for 3 more days -Await QF gold and Hep B before initiation of rituxan therapy T2DM:Home regimen glargine 75+ 30u lispro with meals. With tube feeds, eating, high dose steroids and now IVIG in D5, pt's hyperglycemia required an insulin drip. Will plan for tra nsition today if possible given first time of stability. -If stable, will plan transition to NPH tid Pneumonia, aspiration ARDS (adult respiratory distress syndrome) (HCC) Pneumonia due to human metapneumovirus (hMPV) Completed course of antibiotics for PNA while still in ICU. Pt's presentation was more cons istent with aspiration rather than pneumonia -No further therapy required Sinusitis-treated with augmentin Chronic heart failure with preserved ejection fraction (HCC) Regional wall movement abnormality, presumed coronary artery disease. No evidence of hea rt failure thus far. -baby aspirin -statin increased from 10->80mg atorva daily -lisinopril restarted at 10mg -carvedilol HTN(hypertension): -continue carvedilol, lisinopril CKD (chronic kidney disease):Cr peakedat 1.56, stable Cr with no evidence of volume ove rload or hypovolemic state SVT (supraventricular tachycardia):Transitioned form metop to carvedilol at OSH with no p ersistent SVT in house Stable Chronic Issues #Severe obesity (BMI >= 40) Dispo-Early next week after completion of IVIG; pt will need detention close follow up with Neurology. Pt from [place] so will ask CM to work on a place closer to home. Lori Freeman MD Lori Lowe MD - 018 10:17 AM PDT ATTENDING GM2 PROGRESS NOTE TODAY'S DATE: 03/07/2018 (HOSPITAL DAY 24) I personally interviewed the patient, performed the marcano elements of the physical examinatio n, and have noted my assessment and plan. This serves as the note of the day for the GM2 te am 24 Hour Events No events except for continued adjustment of insulin drip Subjective Pt more awake, talking about food, sister when asked; still inconsistent in responses Physical Examination BP 129/65 | Pulse 72 | Temp 36.6 C (97.9 F) | RR 20 | Ht 1.68 m (5' 6.14") | Wt 125.2 k g (276 lb) | SpO2 94% | BMI 44.36 kg/(m^2) Gen: more awake compared to prior days CV: RRR with S1 S2, soft murmur with no change Lungs: clear anteriorly ABD: Pos BS, soft, non tender, no masses Ext: no change in mild edema Meds: reviewed Labs Bun 47, cr 1.05 Assessment and Plan Toxic metabolic encephalopathy:initiation of high dose steroids and ivig for 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 with sm all 8mm nodule that will require follow up otherwise no evidence to suggest a malignancy. EEG with no evidence of epileptiform activity but generalized slowing. Overall trajectory n ow understanding pt's history prior to admission fits with autoimmune encephalitis. -Continue ivig for 4 more days -await encephalitis panel T2DM:Home regimen glargine 75+ 30u lispro with meals. On NPH TID while on tube feeds but inadequate control with eating, tube feeds and IV steroids -continue insulin drip for now given D5 in IVIG solution, pt on tube feeds and eating Pneumonia ARDS (adult respiratory distress syndrome) (HCC) Pneumonia due to human metapneumovirus (hMPV) Completed course of antibiotics for PNA while still in ICU. Pt's presentation was more cons istent with aspiration which could fit overall downward trajectory was noting. -No further therapy required Sinusitis-treated with augmentin Chronic heart failure with preserved ejection fraction (HCC) Regional wall movement abnormality, presumed coronary artery disease -baby aspirin -statin increased from 10->80mg atorva daily -lisinopril restarted at 10mg -carvedilol HTN(hypertension): -continue carvedilol, lisinopril CKD (chronic kidney disease):Cr peakedat 1.56, However, BUN and Cr slowly rising sugges ting volume depletion state. Concern though for CHF but has been difficulty to assess JVP. Will monitor and if worse tomorrow will start with fluid resuscitation. SVT (supraventricular tachycardia):Transitioned form metop to carvedilol at OSH with no p ersistent SVT in house Stable Chronic Issues #Severe obesity (BMI >= 40) (HCC) Lori Freeman MD arb Lozano - 02/11 8:45 AM PDT [facility] Progress Note ID: Sarah Reeves is a 62 year old obese woman who presented on 02/10/18 in ARDS in the set ting of pneumonia, was extubated on 02/21/18 and has consistently been encephalopathic initia lly thought to have been metabolic in nature but further workup suggests a possible autoimmu ne or paraneoplastic etiology. Interval Events: -- Day 33 of her steroids -- First does of IVIG yesterday Neurologic ROS: Unable to fully assess due to encephalopathy General ROS: Unable to assess due to encephalopathy, patient denies pain and states "She th inks she is doing ok" Current Facility-Administered Medications Medication Dose Route Frequency Provider Last Rate Last Dose acetaminophen (TYLENOL) tablet 325-650 mg 325-650 mg oral Q4H PRN Lori Freeman MD amLODIPine (NORVASC) tablet 10 mg 10 mg feeding tube DAILY Van Palma MD 10 m g at 03/07/18 0817 aspirin chewable tablet 81 mg 81 mg feeding tube DAILY Sierra Rizo DO 81 mg at 03/07/18 0817 atorvastatin (LIPITOR) tablet 80 mg 80 mg feeding tube DAILY Sierra Rizo DO 80 mg at 03/07/18 0818 budesonide (PULMICORT) 0.5 mg/2 mL nebulizer suspension 0.5 mg 0.5 mg inhalation BID M farrukh Carrasco MD 0.5 mg at 03/07/18 1014 carvedilol (COREG) tablet 25 mg 25 mg feeding tube BID Sierra Rizo DO 25 mg at 03/07/18 0818 dextrose 5%-NaCl 0.45% IV infusion 5-400 mL intravenous PRN Lori Freeman MD dextrose 50 % in water IV 15-150 mL 15-150 mL intravenous PRN Lori Freeman MD diphenhydrAMINE (BENADRYL) injection 25-50 mg 25-50 mg intravenous PRN Lori Freeman MD enoxaparin (LOVENOX) injection 40 mg 40 mg subcutaneous QPM George Katelyn Andrade MD 40 mg a t 03/06/182129 EPINEPHrine HCl (PF) (ADRENALIN PF) injection 0.3 mg 0.3 mg intramuscular PRN Lori nicole MD famotidine (PEPCID) injection 20 mg 20 mg intravenous PRN Lori Freeman MD glucagon (GLUCAGEN) injection 1 mg 1 mg intramuscular PRN Danette Cole MD glucose chewable tablet 4-40 g 4-40 g oral PRN Lori Freeman MD guar gum (BENEFIBER) oral powder 1 packet 1 packet feeding tube DAILY Lori Freeman MD 1 packet at 03/07/18 08 hydrocortisone sodium succinate (PF) (SOLU-CORTEF) injection 100 mg 100 mg intravenous PRN Lori Freeman MD immune globulin (GAMMAGARD) 5% IV 35 g intravenous Q24H George Katelyn Andrade MD Stopped at 03/06/18 1940 influenza vaccine (FLUZONE) (PF) IM injection (age 3 years or greater) 0.5 mL 0.5 mL i ntramuscular Day of Discharge Van Palma MD insulin regular bolus from continuous infusion 1-50 Units 1-50 Units intravenous NE EDSARAH (BOLUS) Lori Freeman MD 33 Units at 03/06/18 1425 insulin regular in NaCl 0.9% IV infusion (1 unit/mL) 0.1-50 Units/hr intravenous ROMARIO NUOUS Lori Freeman MD 8 mL/hr at 03/07/18 1301 8 Units/hr at 03/07/18 1301 ipratropium-albuterol (DUO-NEB) nebulizer solution 3 mL 3 mL inhalation Q6H PRN Sierra Rizo DO 3 mL at 03/01/18 0812 lisinopril (PRINIVIL) tablet 10 mg 10 mg oral DAILY Lori Freeman MD 10 mg at 03/07/18 0817 melatonin tablet 3 mg 3 mg feeding tube QPM Sierra Rizo DO 3 mg at 03/06/182129 menthol-zinc oxide (CALAZIME) topical paste 0.2%-16.5% topical QID PRN Angel Renee MD miconazole (SECURA) 2 % extra thick cream topical BID Fidencio Arreaga MD nystatin (MYCOSTATIN) powder topical BID Fercho Carrasco MD nystatin-zinc oxide-lidocaine (NDX) ointment (compound) topical TID Sierra wise, DO polyethylene glycol (MIRALAX) packet 34 g 34 g feeding tube TID PRN Katelyn Matias probiotic kefir (KEYONNA'S KEFIR) feeding tube TID Sierra Rizo DO QUEtiapine (SEROQUEL) tablet 50 mg 50 mg feeding tube QPM Lori Freeman MD 50 mg at 2130 senna (SENOKOT) liquid 17.6 mg 10 mL feeding tube BID PRN Van Palma MD 17.6 mg at 02/22/18 1400 sertraline (ZOLOFT) tablet 100 mg 100 mg feeding tube DAILY Lori Freeman MD 100 mg at 03/07/18 0817 sodium chloride 0.9% IV infusion 1,000 mL intravenous PRN Lori Freeman MD thiamine (VITAMIN B-1) IV 250 mg 250 mg intravenous DAILY Lori Freeman MD Stopped at 03/07/18 1007 white petrolatum-mineral oil-lanolin (LACRILUBE) 83-15 % ophthalmic ointment Both Eye s PRN Van Palma MD PE: Constitutional: Elderly obese woman, lying in bed Neurological: Mental Status: Awake and alert, oriented to self, knows she is in the hospital, does not kn ow what city she is in, can identify her sister but does not remember her sister's name. Sh e can name watch, pen and thumb but not knuckles or nail. Repetition is intact but impaired recall and attention. Impaired insight but knows "something bad happened" Cranial Nerves: PERRL, Gaze conjugate, no preference. EOMI. No facial asymmetry. Hearing grossly intact. Palate elevates symmetrically, tongue midline. Motor: Resistance with tone testing, moves all extremities spontaneously against gravity Sensation: Withdraws to noxious stimuli DTRs: Biceps Triceps Brachioradialis Knee Ankle Left 2+ 3+ 2+ 3+ 1+ Right 2+ 3+ 2+ 3+ 1+ Plantar response is mute bilaterally Coordination: Unable to assess HEENT: non icteric sclera; moist mucus membranes Cardiovascular: RRR Respiratory: normal work of breathing, room air GI: NGT in place Skin: no visible rash Labs: No results for input(s): WBC, HB, HCT, PLT, NEUTROPERC, LYMPHPERC, MONOPERC, BASOPERC, EOSP ERC in the last 72 hours. 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 Reeves is a 63 year old obese woman with persistent encephalopathy since 02/21 which was preceded by two months of increasing confusion, weakness and falls. Based o n time course this is not believed to be a metabolic encephalopathy and due to her robust im provement with steroids thought to be autoimmune vs paraneoplastic in nature. Pt has improv ed with first does of IVIG. Imaging and labs have not revealed any signs of malignancy resendiz coy a paraneoplastic panel is stille pending. Pt did have an elevated RF, CRP and ESR howeve r this could also be due to her recent ARDS and pneumonia. SSA and SSB are still pending. W ill continue with IVIG x5 days and consider starting her on Rituximab as she will need immun osuppression as outpatient and it takes a while to kick in. Before starting rituximab we wi ll get a PET CT to round out her malignancy workup. Plan: - IVIG x5 days (day 2/5) - PET scan tomorrow am, NPO for 8 hours - Start rituximab following PET scan #Diet: Tube feeds and soft diet #DVT Ppx: Lovenox #Dispo: Pending IVIG response This patient has been seen and staffed with Dr. Jade attending neurologist, who agrees with the above assessment and plan. Barb Tam MD Pager #[phone] Associated attestation - Ramonita Tam MD - 03/07/2018 2:03 PM PDTI agree with medical student note. Please see my and my attending's note from this date for any updates or subramanian es to the assessment and plan. Ramonita Tam Pager #[phone] Lori Freeman MD - 03/06/2018 10:52 AM PDTFormatting of this note might be different from th e original. ATTENDING GM2 PROGRESS NOTE TODAY'S DATE: 03/06/2018 (HOSPITAL DAY 23) I personally interviewed the patient, performed the marcano elements of the physical examinatio n, and have noted my assessment and plan. This will serve as the note of the day for the te am. 24 Hour Events More awake; required initiation of insulin drip Subjective Slow to respond but eyes open; answered yes to wanting pizza; wasn't sure where she was; ot herwise less verbal today Physical Examination BP 141/65 | Pulse 80 | Temp 36.2 C (97.2 F) | RR 16 | Ht 1.68 m (5' 6.14") | Wt 125.2 k g (276 lb) | SpO2 98% | BMI 44.36 kg/(m^2) Gen: eyes open, occasionally answering CV: RRR with S1 S2, distant Lungs: clear anteriorly but distant ABD: Pos BS, soft, non tender, no masses Ext: no change in edema Meds: reviewed Labs Bun 45, Alb 2.9 Assessment and Plan Toxic metabolic encephalopathy:with initiation of high dose steroids for presumed autoimm une encephalitis, pt has had overall improvement compared to prior [address] with small 8 mm nodule that will require follow up otherwise no evidence to suggest a malignancy. EEG wi no evidence of epileptiform activity but generalized slowing. Will plan for IVIG as soon as IgA level is back Overall trajectory now understanding pt's history prior to admission fits with autoimmune e ncephalitis. Will discuss with neuro about next steps. -Continue iv steroids for today -Initiate IVIG for 5 days after IgA level back T2DM:Home regimen glargine 75+ 30u lispro with meals. On NPH TID while on tube feeds but inadequate control with eating, tube feeds and IV steroids -continue insulin drip for now Pneumonia ARDS (adult respiratory distress syndrome) (HCC) Pneumonia due to human metapneumovirus (hMPV) Completed course of antibiotics for PNA while still in ICU. Still feel pt's presentation wa s more consistent with aspiration which could fit overall downward trajectory was no ting. -No further therapy required Leukocytosis:suspected sinusitis based on Head CT findings and tenderness over maxillary sinuses on exam. Leukocytosis resolved and sinusitis treatment complete Chronic heart failure with preserved ejection fraction (HCC) Regional wall movement abnormality -baby aspirin -statin increased from 10->80mg atorva daily -lisinopril restarted at 10mg -carvedilol HTN(hypertension): -continue carvedilol, lisinopril CKD (chronic kidney disease):Cr peakedat 1.56, Now normal SVT (supraventricular tachycardia):Transitioned form metop to carvedilol at OSH with no p ersistent SVT in house Stable Chronic Issues #Severe obesity (BMI >= 40) (HCC) Dispo-Expect next /Sun due to need for IVIG which cannot be started until IgA level ret urns (likely tomorrow). Lori Freeman MD Barb Gonzalez - 02/11 8:37 AM PDT [facility] Progress Note ID: Sarah Reeves is a 62 year old who presented on 02/10 due to ARDS in the setting of pne umonia, who has continued to be encephalopathic since extubation thought to be due to an aut oimmune or paraneoplastic progress, responding to steroids. Interval Events: -- Passed swallow test -- More alert yesterday, answering questions, asking for pizza -- Seen by PT/OT -- JONATHAN negative -- Day 3/3 of steroids -- Sugars much more controlled over the past 24 hours Neurologic ROS: Unable to assess due to altered mental status General ROS: Denies pain but otherwise difficult to assess due to altered mental status PE: Constitutional: Elderly obese woman lying sideways in bed, uncoop[erative on exam, drowsi Neurological: Mental Status: Drowsy, not answering questions or following commands. Would not keep eyes o pen, grunting and trying to turn away from me. Not answering questions. Cranial Nerves: PERRL, Gaze conjugate, no preference. EOMI. No facial asymmetry. Hearing g rossly intact. Palate elevates symmetrically, tongue midline. . Motor: Resitance to tone testing, moves all extremities bilaterally Sensation: Withdraws to noxious stimuli DTRs: Biceps Triceps Brachioradialis Knee Ankle Left 3+ 3+ 3+ 3+ 2+ Right 3+ 3+ 3+ 3+ 2+ Plantar response is flexors bilaterally Unable to assess coordination or gait however whenever she would open her eyes she would ro ll her hands together. HEENT: non icteric sclera; moist mucus membranes Cardiovascular: RRR Respiratory: normal work of breathing, room air Skin: no visible rash Labs: No results for input(s): WBC, HB, HCT, PLT, NEUTROPERC, LYMPHPERC, MONOPERC, BASOPERC, EOSP ERC in the last 72 hours. 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 Due to her robust response to steroids, the plan is to continue the 3 da y course of steroids and start IVIG x 5 days, IGA is normal and ok to start. Plan: - Start IVIG today - Follow up autoimmune labs and NMDA #Diet: Tube feeds #DVT Ppx: Lovenox #Dispo: Pending IVIG response This patient has been seen and staffed with Dr. Jade, attending neurologist, who agree s with the above assessment and plan. Barb Tam MD Pager #[phone] Associated attestation - Ramonita Tam MD - 03/06/2018 5:56 PM PDTI agree with [facility] medical student note. Please see my and my attending's note from this date for any update s or changes to the assessment and plan. Ramonita Tam Pager #[phone] Barb Lozano - 03/05/2018 2:33 PM PDT [facility] Progress Note ID: Sarah Reeves is a 62 year old woman admitted on 02/10 due to ARDS in the setting of m etapneumovirus, she was extubated on 02/21 and has been continuously encephalopathis. Neurol ogy was consulted due to failure to return to baseline despite workup, and normal MRI. Interval Events: -- Internal medicine was able to talk with the pt's yesterday who mention that the pt had about a month history of progressive confusion, she had dizziness and frequent falls as well as sleeping more throughout the day. She became dependent on her walker due to weak ness and had EMS come to her home at one point due to fall. -- Started on Solumedrol 1g -- 24 hour EEG showed diffuse mild slowing -- CT of the neck showed 1.5 cm calcified nodule in the thyroid, and CT of chest showed an 8mm lung nodule -- ACTH stim test showed no adrenal insufficiency -- NMDA sent Neurologic ROS: Unable to assess due to altered mental status General ROS: Unable to assess due to AMS PE: Constitutional: Elderly obese woman, lying in bed, in NAD Neurological: Mental Status: Awake, alert, Regards and tracks, was following simple commands (could touch her nose, squeeze fingers, could not touch her ear) Speaking in full sentences but does no t answer all questions. Not oriented to time, place, or situation. Cranial Nerves: PERRL, Gaze conjugate, no preference. EOMI. Cough reflex intact, face is s ymetric at rest. Motor: Moves all limbs spontaneously against gravity, resists tone testing, no tremor or fa siculations. Sensation: Withdraws to noxious stimuli in all extremities. Denies pain but withdraws when you touch her shins bilaterally DTRs: Biceps Triceps Brachioradialis Knee Ankle Left 2+ 2+ 2+ 3+ 1+ Right 2+ 2+ 2+ 3+ 1+ Plantar response is flexors bilaterally Coordination: Reaches for hand without tremor or ataxia Gait: Unable to assess ROMBERG: Unable to assess HEENT: non icteric sclera; moist mucus membranes Cardiovascular: RRR Respiratory: normal work of breathing, room air Skin: no visible rash Labs: Recent Labs 03/03/18 0720 WBC 8.22 HB 12.9 HCT 41.7 PLT 253 NEUTROPERC 60.2 LYMPHPERC 27.0 MONOPERC 9.0 BASOPERC 0.7 EOSPERC 2.9 Recent Labs 03/03/18 0720 03/04/18 1005 03/05/18 0602 03/05/18 0847 NA 138 136 126* 133* K 3.9 4.2 6.5* 4.9 CL 104 102 101 100 BICARB 29 27 17* 24 BUN 29* 30* 36* 36* CR 0.88 1.02 0.69 0.87 CA 8.5* 8.9 9.0 9.2 PO4 3.2 2.4 2.7 -- Recent Labs 03/03/18 0720 03/04/18 1005 03/05/18 0602 ALB 2.7* 2.7* 2.4* IMAGING: CT C/A/P 03/04/18 IMPRESSION: No evidence of thoracic, abdominal, or pelvic infection. Right middle lobe 8mm nodule CT Neck 03/04/18 IMPRESSION: Heavily calcified 1.5 cm thyroid nodule. Remainder of the neck is unremarkable with no evidence of abscess or mass. EEG 03/04- IMPRESSION This detention EEG is abnormal due to: 1. Mild to moderate diffuse slowing 2. Frontal Intermittent Rhythmic Delta Activity (FIRDA) No seizures or epileptiform discharges were seen. Diagnosis: # Encephalopathy Assessment: Mrs. Reeves is a 62 year old female presented on 02/10 in ARDS in the setting of metapneumovirus thought to be due to aspiration in the setting of this 2 month progressiv e somnolence, confusion, weakness and ataxia. She was started on IV solumedrol 1g x3 days a nd did not respond after the first dose but following the second dose showed much improvemen t in her mental status, she was speaking in full sentences, could answer some questions appr opriately and follow simple one step commands. Although CT imaging and lab work has not rev ealed any source of malignancy and autoimmune panel and paraneoplastic panel is pending, the brisk response to steroids suggests an autoimmune/paraneoplastic etiology. We will continu e to treat with steroids and consutl neuroimmunolgy regarding starting IVIG while on steroid s. Plan: - Disontinue EEG due to no signs of seizure activity - Continue 1000mg IV solumedrol x3days (day 2/3) - Consult neuroimmunology - Follow-up antibody and paraneoplastic panel #Diet: Continuous tube feeds #DVT Ppx: Lovenox, SCDs #Dispo: Pending neuroimmunolgy consult and IVIG This patient has been seen and staffed with Dr. Jade, attending neurologist, who agree s with the above assessment and plan. Barb Tam MD Pager #[phone] Associated attestation - Ramonita Tam MD - 03/06/2018 5:55 PM PDTI agree with [facility] medical student note. Please see my and my attending's note from this date for any update s or changes to the assessment and plan. Ramonita Tam Pager #[phone] Lori Freeman MD - 03/05/2018 5:32 AM PDTFormatting of this note might be different from th e original. ATTENDING GM2 PROGRESS NOTE TODAY'S DATE: 03/05/2018 (HOSPITAL DAY 22) I personally interviewed the patient, performed the marcano elements of the physical examinatio n, and have noted my assessment and plan below 24 Hour Events Started methypred for possible autoimmune encephalitis; EEG monitoring initiated Subjective Pt completely awake, stating that "we need to work on something" when discussing ability to start eating; did not know where she was when asked but understood she was at [facility]. Wants to eat pizza. Worked with speech and did well. Physical Examination BP 113/83 | Pulse 72 | Temp 36.7 C (98.1 F) | RR 16 | Ht 1.68 m (5' 6.14") | Wt 123.8 k g (272 lb 14.9 oz) | SpO2 94% | BMI 43.86 kg/(m^2) Gen:now awake, conversing, asking to eat CV: RRR with S1 S2, distant Lungs: clear but with small inspiration ABD: Pos BS, soft, non tender, no masses Ext: no change in edema Meds: Reviewed; changed diet Increased nph to 26 units (with meals) Labs K 4.9, Bun [address] C/A/P Visualized neck: Right thyroid nodule demonstrate a ring calcification is noted. CHEST: There is a rim calcified 10 mm right lobe thyroid nodule. The heart and great vessel s are unremarkable. No hilar, mediastinal, or axillary adenopathy. Nodule within the right m iddle lobe measuring 8 mm (72/4). Low lung volumes. Second right lower lobe nodule measuring 4 mm (84/4). Bibasilar atelectasis. ADRENALS: Nodular thickening of the adrenal glands, bilaterally. PELVIC ORGANS/BLADDER: The uterus and ovaries are surgically absent. VESSELS: Moderate atherosclerotic burden. No aneurysm. Contrast noted within the mesenteric vasculature. BONES AND SOFT TISSUES: Chronic bilateral L5 pars defects with grade 1 anterolisthesis of L 5 on S1. Mild stranding of the subcutaneous fat without evidence of discrete fluid collectio n. Small periumbilical hernia measuring 3.4 cm without evidence of angulation. Assessment and Plan Toxic metabolic encephalopathy:with initiation of high dose steroids for presumed autoimm une encephalitis, pt has is now awake and conversing. CT with small 8mm nodule that will re quire follow up otherwise no evidence to suggest a malignancy. EEG with no evidence of epil eptiform activity but generalized slowing. Overall trajectory now understanding pt's history prior to admission fits with autoimmune e ncephalitis. Will discuss with neuro about next steps. -DC EEG -Advance diet -Continue iv steroids x 2 more days -Initiate IVIG tomorrow for 5 days -IgA level pending for tomorrow (send out lab) Pneumonia ARDS (adult respiratory distress syndrome) ([facility]) Pneumonia due to human metapneumovirus (hMPV) Completed course of antiobiotics for PNA while still in ICU. Still feel pt's presentation w as more consistent with aspiration which could fit overall downward trajectory was n oting. -No further therapy required Leukocytosis:suspected sinusitis based on Head CT findings and tenderness over maxillary sinuses on exam. Leukocytosis resolved and sinusitis treatment complete Chronic heart failure with preserved ejection fraction ([facility]) Regional wall movement abnormality -baby aspirin -statin increased from 10->80mg atorva daily -lisinopril restarted at 10mg HTN(hypertension): -continue carvedilol, lisinopril CKD (chronic kidney disease):Cr peakedat 1.56, Now normal SVT (supraventricular tachycardia):Transitioned form metop to carvedilol at OSH with no p ersistent SVT in house T2DM:Home regimen glargine 75+ 30u lispro with meals. On NPH TID while on tube feeds -increasing NPH to 26 units tid with plan to give with meals given ok by speech to advance diet; expect will be able to stop tube feeds by tomorrow which will allow further readjustme nt -Insulin drip if CBG remain too high today -Addendum: CBG>350, will start insulin drip Stable Chronic Issues #Severe obesity (BMI >= 40) ([facility]) Lori Freeman MD Juana Patton MD - 5:59 PM PDTI received a page from the on-call EEG reader that the EEG shows mildly diffuse slowing but no epileptiform or seizure activity noted. Juana Jacinto MD PGY2 Neurology Pager [phone] signed by Juana Jacinto MD at 03/04/2018 6:00 PM PDTStair Felicita ly - 03/04/2018 4:54 PM PDTPatient is connected to [facility] with [facility]/CT compatible jennifer ds. Please page #[phone] (all hours) with questions or to discontinue EEG. Lori Lowe MD - 03/04/2018 12:19 PM PDT ATTENDING GM2 PROGRESS NOTE TODAY'S DATE: 03/04/2018 (HOSPITAL DAY 21) I personally interviewed the patient, performed the marcano elements of the physical examinatio n, and have noted my assessment and plan below. This note will serve as the note of the day 24 Hour Events No change except continued restlessness Subjective Opens eyes to voice but then closes it; still keeps right arm up in the air; not responding purposefully Discussion with /caregiver: Prior to coming to hospital, pt had developed dizziness which caused pt to fall over "onto her face". Called ambulance 3 times to help pt up. Also noted to have periods of confusion in which she forgot where she would put her keys or her medical bracelet. Also had increas ing weakness of her legs which required using a walker when prior she was not using it (deny r was going to physical therapy and working out slowly at a gym). Pt also had increasing so mnolence, sleeping up to 16 hours a day. Finally, pt had repeat episodes of dyspnea prior t o coming in with at least 2 visits to the ED but with no dx Physical Examination BP 106/49 | Pulse 78 | Temp 37 C (98.6 F) | RR 16 | Ht 1.68 m (5' 6.14") | Wt 123.8 kg (272 lb 14.9 oz) | SpO2 94% | BMI 43.86 kg/(m^2) Gen: NAD; as above CV: RRR with S1 S2-distant Chest wall-still very tender to palpation with no obvious skin changes or masses; only time pt purposefully moves arm away Lungs: clear anteriorly but again very distant ABD: Pos BS, soft, non tender, no masses Ext: no change in edema Meds: reviewed Labs Bun 30, alb 2.7 Reviewed MRI again with neuroradiology-no specific enhancement in limbic, mammary bodies, m eninges, etc Assessment and Plan Toxic metabolic encephalopathy:overall trajectory continues to be out of proportion to ex pected recovery and with history from 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 Her t clifford-frame, her symptoms and her current condition all fit. Will plan for CT neck, chest, ab d and pelvis to look for any possible malignancy. If ct can't be done, will get transvagina l and abd ultrasound as well as ultrasound of right side of chest. -paraneoplastic serum and CSF -would like to start steroids given new history but will await neuro rec -CT as noted above Pneumonia ARDS (adult respiratory distress syndrome) ([facility]) Pneumonia due to human metapneumovirus (hMPV) Completed course of antiobiotics for PNA while still in ICU. Still feel pt did not have SUSANNA S due to pneumonia. Will obtain records from ED in [place] since pt had presented at [facility] 3-5 times there and see if cxr was done. Suspect pt either had aspiration pneumonitis and then presented with ARDS. Suspect it is due to pt having increasing encephalopathy Leukocytosis:suspected sinusitis based on Head CT findings and tenderness over maxillary sinuses on exam. Leukocytosis resolved and sinusitis treatment complete Chronic heart failure with preserved ejection fraction ([facility]) Regional wall movement abnormality -baby aspirin -statin increased from 10->80mg atorva daily -lisinopril restarted at 10mg HTN(hypertension): Challening fluid status exam, seems to be euvolemic today but difficult exam -continue carvedilol, lisinopril CKD (chronic kidney disease):Cr peakedat 1.56, Now normal rnage SVT (supraventricular tachycardia):Transitioned form metop to carvedilol at OSH with no p ersistent SVT in house T2DM:Home regimen glargine 75+ 30u lispro with meals. On NPH TID while on tube feeds -increasing NPH given marked increase in hyperglycemia and additional lispro dosing -if steroids given pt will need insulin drip. Stable Chronic Issues #Severe obesity (BMI >= 40) ([facility]) Lori Freeman MD Barb Gonzalez - 02/11 12:12 PM PDT Neurology [facility] Progress Note ID: Sarah Reeves is a 62 year old woman admitted on 02/10 due to ARDS in the setting of m etapneumovirus, she was extubated on 02/21 and has been progressively been encephalopathic. Neurology was consulted due to failure to return to baseline despite workup, and normal MRI. Interval Events: -- Paraneoplastic panel sent -- Meningitis/Encephalitis panel was negative -- CSF cultures negative -- CXR clear -- RF elevated to 25 Neurologic ROS: Unable to assess due to AMS General ROS: Point tenderness in the left torso just below the mid-clavicular line PE: Constitutional: Obese women, lying on her side in bed, in no acute distress Neurological: Mental Status: Awake, alert, she will track and intermittently regar. Not following comman ds but will intermittently answer questions . Speaks in 1-3 word sentences up to "I don't t hink so" Cranial Nerves: PERRL, Gaze conjugate, no preference. EOMI. Face is ssymmetric. Hard to ass ess due to inability to follow commands. Motor: Resistant with tone testing in the bilateral upper extremities, moves all extremitie s spontaneously Sensation: Withdraws to noxious stimuli in all extremities and will say ouch. DTRs: Biceps Triceps Brachioradialis Knee Ankle Left 2+ 2+ 2+ 3+ 1+ Right 2+ 2+ 2+ 3+ 1+ Plantar response is mute bilaterally Coordination: Reaches arm out spontaneously with no tremor or ataxia Gait: Unable to assess HEENT: non icteric sclera; moist mucus membranes Cardiovascular: RRR Respiratory: normal work of breathing, room air GI: Obese, NG tube in Skin: no visible rash, dry skin, nails done Labs: Recent Labs 03/02/18 0827 03/03/18 0720 WBC 10.86* 8.22 HB 13.1 12.9 HCT 42.6 41.7 PLT 293 253 NEUTROPERC 66.8 60.2 LYMPHPERC 20.2 27.0 MONOPERC 10.0* 9.0 BASOPERC 0.6 0.7 EOSPERC 2.1 2.9 Recent Labs 03/02/18 0827 03/03/18 0720 03/04/18 1005 NA 140 138 136 K 4.0 3.9 4.2 CL 106 104 102 BICARB 28 29 27 BUN 37* 29* 30* CR 1.02 0.88 1.02 CA 8.7 8.5* 8.9 PO4 3.2 3.2 2.4 Recent Labs 03/02/18 0827 03/03/18 0720 03/04/18 1005 ALB 2.7* 2.7* 2.7* IMAGING: Mri Brain Wwo Contrast Result Date: 03/01/2018 EXAM: MRI brain without and with contrast HISTORY: Encephalopathy COMPARISON: Head CT TECHNIQUE: Multiplanar multi-sequence MRI of the brain without and with gadolinium based in travenous contrast. FINDINGS: Brain: Subcentimeter focus of nonenhancing T2/flair hyperintensity in the right occipital l obe is too small to actually characterize though is favored to represent encephalomalacia, t his is from prior ischemia. Nonenhancing T2/flair hyperintensity is present in the posterior inferior right putamen, also possibly representing sequela of prior ischemia though nonspec ific. There is generalized brain parenchymal volume loss which is slightly greater than norm al for patient age, with distal portion at mesial temporal atrophy. No hydrocephalus, hernia tion or mass. No acute infarction. No abnormal enhancement, otherwise. Soft tissues and marrow: Unremarkable Face and orbits: Sphenoid sinus fluid and mucosal thi ckening noted. IMPRESSION: 1. No cause for patient's encephalopathy identified. No definite acute intracranial abnorma lity. 2. Generalized brain parenchymal volume loss, likely greater than normal for patient a ge. 3. Scattered nonspecific parenchymal T2/flair hyperintense foci, discussed above, favore d to represent sequela of prior ischemia. I have personally reviewed the images and, if necessary, edited the report. I agree with t he report as now presented. EEG 02/28/2018 IMPRESSION This awake and drowsy routine EEG is abnormal due to mild to moderate generalized slowing. This degree of slowing correlates to a mild to moderate encephalopathy that is nonspecific i n etiology. No epileptiform activity or seizures captured. Diagnosis: # Persistent encephalopathy in the setting of ARDS Assessment: Sarah Reeves is a 62 year old female who presented with ARDS in the setting of pneumonia on 02/10 from an outside hospital who was stabilizing to the point of extubation on 02/21 however due to persistent encephalopathy since extubation neurology ws consulted. T he initial working diagnosis was toxic-metabolic encephalopathy in the setting of her ARDS h owever, she has failed to improve and normal labs would suggest that this she should have cl eared by now. There was concern for sinusitis and was started on augmentin with no improveme nt. Infectious workup this far has been negative, she has not had any improvement with edward ine to rule out Wernicke encephalitis. She did have an elevated ESR, CRP and RF however due to recent infection and hospital course this could also explain thos abnormalities. Elevat ed RF factor can also be seen in malignancy, inflammatory disorders and other autoimmune dis orders. We have sent for SSA, SSB, JONATHAN and RIKA to rule out autoimmune disorders, at CT of th e chest, abdomen and pelvis were ordered to rule out occult malignancy and a paraneoplastic profile was sent. Due to body habitus, an ACTH stim study was ordered. We will also recomme nd 24 hour EEG monitoring due to her waxing and waning mental status. We will also consider Neuro angio to rule out vasculitic etiologies. At this juncture if the pt does not improve t hroughout the day we will trial her on steroid 1g methylprednisolone x3 days Plan: # Acute encephalopathy -- Follow up paraneoplastic panel -- Follow up antibody labs -- Follow up ACTH Stim test -- Follow up imaging -- 24 hour EEG monitoring -- 1gm Methylprednisolone x3 days #Diet: Tube feeds #DVT Ppx: Lovenox #Dispo: Likely to SNF, refer to primary team This patient has been seen and staffed with Dr. Buenrostro, attending neurologist, who agrees with the above assessment and plan. Barb Tam MD Pager #[phone] Associated attestation - Ramonita Tam MD - 03/04/2018 4:32 PM PDTI agree with [facility] medical student note. Please see my and my attending's note from this date for any update s or changes to the assessment and plan. Ramonita Tam Pager #[phone] George Andrade MD - 03/03/2018 11:13 AM PDT General Internal Medicine 2 Progress Note 24 Hour Events: Neurology consulted yesterday No significant events overnight Current Symptoms: Latanya not at bedside this morning Patient opening eyes, nodding head and shaking. Unable to vocalize. Physical Examination: Last 24 hour min/max Temp: 36.4 C (97.5 F) Temp Min: 36.4 C (97.5 F) Max: 36.5 C (97.7 F) Pulse: 88 Pulse Min: 76 Max: 88 Resp: 12 Resp Min: 12 Max: 20 BP: 150/67 BP Min: 133/49 Max: 150/67 SpO2: 96 % SpO2 Min: 90 % Max: 96 % Body mass index is 43.68 kg/m. General: no acute distress HEENT: EOMI, NG tube in place Lungs: CTA-bilaterally but distant Heart: regular rate and rhythm, distance Abd: soft, nt, nd, +bs Extremity: flinching when palpating right anterior pec Neuro: alert, opening eyes to command, shaking head yes/no to questions, unable to vocalize , moving upper extremities, right arm primarily, flinching in pain. Laboratory Interpretation: ESR: 42 CRP: 15.7 BMP unremarkable CBC unremarkable Glucose: 244 > 275 > 284 > 237 > 235 Imaging Interpretation: CXR Portable Chest 03/03/18 - my prelim read, rotated, no acute pathology identified Brief Summary: Sarah Reeves is a 62 y.o. Female with HTN, HFpEF, T2DM, OLIVIA initially transferred from [facility] to MICU for acute hypoxic respiratory failure requiring intubation (02/07) secondary to met apneumovirus PNA. Extubated 02/20, transferred out of ICU 02/22. Hospital course complicated b y superimposed bacterial PNA, ARDS, and now persistent toxic metabolic encephalopathy. Assessment and Plan Patients Hospital Problem List: 1) *Toxic metabolic encephalopathy Seems to be more alert today, opening eyes and shaking head yes/no. Unable to vocalize. May be sign of improvement of encephalopathy. Neurology formally consulted yesterday and added on additional tests per their recommendations. -f/u JONATHAN, RIKA, RF, SSA, SSB, May ESN-1 autoimmune panel -will continue IV thiamine for now (day 2 of 500mg) -continue to monitor encephalopathy daily, will start looking into SNFs/ICFs/pl acement options -appreciate insights from Neurology as necessary #Pain? Patient did have some right pectoral and shoulder pain and flinching today, and noted on da ys prior. Patient unable to vocalize and not clearly able to localize pain. CXR obtained to evaluate, no significant etiology. Since encephalopathy seems to be somewhat improving, will continue to monitor pain/flinching for now. If continues to worsen or bother her, and/or if she is able to vocalize more in the next couple of days, may consider CT Chest to evaluate right sided pain further. Rest of problems below stable without significant changes 3) ARDS (adult respiratory distress syndrome) ([facility]) 4) Pneumonia due to human metapneumovirus (hMPV) 5) Leukocytosis Now resolved. s/p vanc 02/11-02/12. Zosyn 02/12-02/13. azithromycin 02/11 - 02/13. CTX 2gm 02/13-02/14. s/ p augmentin 02/25 - 03/02 for possible sinusitis. Afebrile and hemodynamically stable. -continue budesonide -continue CPAP at night. 6) HTN (hypertension) - continue amlodipine 10mg daily, carvedilol 25mg BID. Holding home furosemide 40mg for now. -BP beginning to rise again so will resume lisinopril at 10mg 7) CKD (chronic kidney disease) - creatinine stable. 8) SVT (supraventricular tachycardia) ([facility]) - resolved. Had episodes of SVT at OSH and was started on metoprolol. Holding home metoprolol 25mg BID currently. Continue to monitor. 9) Severe obesity (BMI >= 40) ([facility]) - stable. 10) (HFpEF) heart failure with preserved ejection fraction ([facility]) 12) Abnormal ventricular wall motion ECHO 02/11/18 with regional wall motion abnormality. Does not appear significantly volume o verloaded. -baby aspirin -continue atorvastatin 80mg once daily -resume lisinopril 10mg 11) T2DM (type 2 diabetes mellitus) ([facility]) -NPH adjusted to 12 to 15u q8H + SSI -adjust insulin as necessary Diet: tube feeding 55ml/hr - high protein with fiver 1kcal/ml Prophylaxis: enoxaparin Code: full Surrogate Decision Maker Primary Surrogate Decision Maker Latanya Gunter Sister [phone] Secondary Surrogate Decision Maker Mr. Reeves Dispo: pending placement at this point Seen and evaluated with attending Lori Freeman MD who agrees with my assessment and plan unl ess otherwise stated. Kassi Andrade MD Family Medicine, PGY-3 [facility] Pager # [phone] Associated attestation - Lori Freeman MD - 03/03/2018 12:20 PM PDTGENERAL MEDICINE ATTENDIN Liang PROGRESS NOTE ADMIT DATE: 02/11/2018 12:12 AM TODAY'S DATE: 03/03/2018 (HOSPITAL DAY 20) I personally interviewed the patient, performed the pertinent parts of the physical examina tion and personally formulated the plan with the [facility] resident, Dr. Andrade. I agree with the zach isaac's documentation and have documented any additions or exceptions. Interval Hx: pt nodded no purposefully to Dr. Andrade's 3 questions; still keeping right arm in the air; mostly lying on left side; continues with same frequency bm; no other new events per RN; Sister not at bedside today Exam notable for: BP 150/67 | Pulse 88 | Temp 36.4 C (97.5 F) | RR 12 | Ht 1.68 m (5' 6.14") | Wt 123.3 k g (271 lb 12.8 oz) | SpO2 96% | BMI 43.68 kg/(m^2) As noted and confirmed by me. Tenderness by facial grimace and voice to palpation of right chest wall (noted on prior 2 day but more prominent due to specific exam) Labs/imaging notable for: nl bms, wbc normal Problem List 1) *Toxic metabolic encephalopathy 2) ARDS (adult respiratory distress syndrome) ([facility]) 3) Pneumonia due to human metapneumovirus (hMPV) 4) Leukocytosis 5) HTN (hypertension) 6) CKD (chronic kidney disease) 7) SVT (supraventricular tachycardia) (HCC) 8) Severe obesity (BMI >= 40) ([facility]) 9) (HFpEF) heart failure with preserved ejection fraction (HCC) 10) T2DM (type 2 diabetes mellitus) ([facility]) 11) Abnormal ventricular wall motion Assessment and Plan Toxic metabolic encephalopathy: overall trajectory continues to be out of proportion to exp ected recovery. Consideration given to paraneoplastic syndromes so serum study sent. Neelam serrano what effect thiamine iv is having given pt's slight improvement today and this is day 2 of high dose thiamine. Unsure of how to tie tenderness of right chest wall to current symptom s; Cxr does not show an obvious fracture, abscess, etc and breast palpation does not reveal a mass. Will continue to monitor this area and encephalopathy and decide next best step. -seroquel at bedtime -monitor right chest wall area for progression of symptoms -paraneoplastic panel pending Pneumonia ARDS (adult respiratory distress syndrome) ([facility]) Pneumonia due to human metapneumovirus (hMPV) Completed course of antiobiotics for PNA while still in ICU. No lingering evidence of PNA o n CXR thus suspect initial event was aspiration but unclear as well why that would have happ ened. Leukocytosis: suspected sinusitis based on Head CT findings and tenderness over maxillary s inuses on exam. Leukocytosis resolved and sinusitis treatment complete Chronic heart failure with preserved ejection fraction ([facility]) Regional wall movement abnormality -baby aspirin -statin increased from 10->80mg atorva daily -lisinopril restarted at 10mg HTN(hypertension): Challening fluid status exam, seems to be euvolemic today but difficult exam -continue carvedilol, lisinopril CKD (chronic kidney disease): Cr peakedat 1.56, Now normal rnage SVT (supraventricular tachycardia): Transitioned form metop to carvedilol at OSH with no pe rsistent SVT in house T2DM: Home regimen glargine 75+ 30u lispro with meals. On NPH TID while on tube feeds -increasing NPH given marked increase in hyperglycemia and additional lispro dosing Stable Chronic Issues #Severe obesity (BMI >= 40) ([facility]) Lori Andrade, George Zepeda MD - 03/02/2018 12:53 PM PDT General Internal Medicine 2 Progress Note 24 Hour Events: Underwent MRI, LP yesterday No acute events overnight Current Symptoms: Unresponsive, opening eyes but not following commands SisterLatanya at bedside. Restless night. Wondering dispo planning for her. Tube feeds running. Physical Examination: Last 24 hour min/max Temp: 36.7 C (98.1 F) Temp Min: 36.3 C (97.3 F) Max: 36.9 C (98.4 F) Pulse: 83 Pulse Min: 60 Max: 96 Resp: 18 Resp Min: 13 Max: 23 BP: 125/56 BP Min: 124/60 Max: 191/81 SpO2: 95 % SpO2 Min: 93 % Max: 98 % Body mass index is 43.68 kg/m. Intake/Output Summary (Last 24 hours) at 03/02/18 1254 Last data filed at 03/02/18 1200 Gross per 24 hour Intake 2330 ml Output 0 ml Net 2330 ml General: no acute distress, intermittently opening eyes, moving arms, not following command s HEENT: dry lips, NG tube in place Lungs: CTA-b Heart: rrr, no m/r/g, distant heart sounds Abd: soft, nt, +bs Neuro: not alert and oriented, able to open eyes, moving upper extremities Laboratory Interpretation: BMP unremarkable CBC unremarkable CSF: Lab Results Component Value Date RBCCSF 404 (H) 03/01/2018 WBCCSF <1 03/01/2018 PROTEINCSF 85 (H) 03/01/2018 GLUCOSECSF 114 (H) 03/01/2018 CSFAPP Bl Tinged (A) 03/01/2018 Imaging Interpretation: MRI Brain WWO Contrast 03/01/2018 IMPRESSION: 1. No cause for patient's encephalopathy identified. No definite acute intracranial abnorma lity. 2. Generalized brain parenchymal volume loss, likely greater than normal for patient age. 3. Scattered nonspecific parenchymal T2/flair hyperintense foci, discussed above, favored t o represent sequela of prior ischemia. MRI Spine Lumbar WO Contrast 03/01/18 IMPRESSION: Multilevel degenerative changes, as described above. No high-grade central canal stenosis. Possible small subdural fluid collection in the ventral canal at L4-5, incompletely charact erized here. L5 pars interarticularis defects noted bilaterally. Brief Summary: Sarah Reeves is a 62 y.o. Female with HTN, HFpEF, T2DM, OLIVIA initially transferred from [facility] to MICU for acute hypoxic respiratory failure requiring intubation (02/07) secondary to met apneumovirus PNA. Extubated 02/20, transferred out of ICU 02/22. Hospital course complicated b y superimposed bacterial PNA, ARDS, and now persistent toxic metabolic encephalopathy. Assessment and Plan Patients Hospital Problem List: Active Hospital Problems 1) *Toxic metabolic encephalopathy Patient continues to be encephalopathic, longer than expected for ICU delirium and intubati on. MRI and CSF work-up unremarkable. Unclear how long it will take for her to recover from this or if she will. Discussed this with sister at bedside. -formally consult Neurology today for further encephalopathy investigation - appreciate re cs as necessary -if no additional w/u for this, will need to start looking into placement. May not be skil lable, spoke to CM who will investigate ICF options 3) ARDS (adult respiratory distress syndrome) ([facility]) 4) Pneumonia due to human metapneumovirus (hMPV) 5) Leukocytosis Now resolved. s/p vanc 02/11-02/12. Zosyn 02/12-02/13. azithromycin 02/11 - 02/13. CTX 2gm 02/13-02/14. s/ p augmentin 02/25 - 03/02 for possible sinusitis. Afebrile and hemodynamically stable. -continue budesonide -continue CPAP at night. 6) HTN (hypertension) - Stable, continue amlodipine 10mg daily, carvedilol 25mg BID. Holdi ng home lisinopril 20mg, furosemide 40mg for now. 7) CKD (chronic kidney disease) - creatinine stable. 8) SVT (supraventricular tachycardia) ([facility]) - resolved. Had episodes of SVT at OSH and was started on metoprolol. Holding home metoprolol 25mg BID currently. Continue to monitor. 9) Severe obesity (BMI >= 40) ([facility]) - stable. 10) (HFpEF) heart failure with preserved ejection fraction ([facility]) 12) Abnormal ventricular wall motion ECHO 02/11/18 with regional wall motion abnormality. Does not appear significantly volume o verloaded. -baby aspirin -continue atorvastatin 80mg once daily -SARAVANAN on hold for now 11) T2DM (type 2 diabetes mellitus) ([facility]) -continue NPH 12u q8H + SSI -adjust insulin as necessary Diet: tube feeding 55ml/hr - high protein with fiver 1kcal/ml Prophylaxis: enoxaparin Code: full Surrogate Decision Maker Primary Surrogate Decision Maker Latanya Gunter Sister [phone] Secondary Surrogate Decision Maker Mr. Reeves Dispo: pending further work-up of encephalopathy. If no additional work up after Neurology recs today, will start discharge planning. Seen and evaluated with attending Lori Freeman MD who agrees with my assessment and plan unl ess otherwise stated. Kassi Andrade MD Family Medicine, PGY-3 [facility] [place] Pager # [phone] Associated attestation - Lori Freeman MD - 03/02/2018 1:58 PM [facility] ATTENDIN Liang PROGRESS NOTE ADMIT DATE: 02/11/2018 12:12 AM TODAY'S DATE: 03/02/2018 (HOSPITAL DAY 19) I personally interviewed the patient, performed the pertinent parts of the physical examina tion and personally formulated the plan with the resident, Dr. Andrade. I agree with the r esident's documentation and have documented any additions or exceptions. Interval Hx: MRI spine, brain and LP completed; pt remains restless per Latanya; some vocaliza tion to stop it or no but otherwise no change Exam notable for: BP 125/56 | Pulse 83 | Temp 36.7 C (98.1 F) | RR 18 | Ht 1.68 m (5' 6.14") | Wt 123.3 k g (271 lb 12.8 oz) | SpO2 95% | BMI 43.68 kg/(m^2) As noted by Dr. Andrade and confirmed by me Neuro-no purposeful movement with command; EOM not fully assessed though pt moves eyes abou t in room; moves both arms spontaneously (either up in air or grabbing railing) and both LE move again without purpose; reflex 1+ ue and none obtained in LE Labs/imaging notable for: glc 206, wbc 10.86, CSF-rbc 404, wbc<1, TP 85, gl 114; MRI of spi ne and head reviewed Problem List 1) *Toxic metabolic encephalopathy 2) ARDS (adult respiratory distress syndrome) ([facility]) 3) Pneumonia due to human metapneumovirus (hMPV) 4) Leukocytosis 5) HTN (hypertension) 6) CKD (chronic kidney disease) 7) SVT (supraventricular tachycardia) ([facility]) 8) Severe obesity (BMI >= 40) ([facility]) 9) (HFpEF) heart failure with preserved ejection fraction ([facility]) 10) T2DM (type 2 diabetes mellitus) ([facility]) 11) Abnormal ventricular wall motion Assessment and Plan Older woman with recent admit for ARDS thought due to metapneumovirus requiring intubation and sedation now nearly 2 weeks post extubation with no change in encephalopathy. Short EEG and LP/MRI of head are unrevealing for a source. Do not believe medications are at play es pecially since sister described pt doing better with seroquel. Feeling at a loss as to reas on for current encephalopathy. Appreciate Neuro assistance for further recommendations. Have discussed with sister about next steps if we are not able to find a reason. 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 No other reason to suspect wernicke's or adrenal insufficiency though team started high dose thiamine in case. No reas on to think pt has a paraneoplastic syndrome but might add to remaining CSF (will discuss wi neuro). Will complete sinusitis treatment today. Lori Singh MD, MD - 03/01/2018 11:11 AM PDTFormatting of this note might be different from e original. ATTENDING [facility] PROGRESS NOTE TODAY'S DATE: 03/01/2018 (HOSPITAL DAY 18) I personally interviewed the patient, performed the marcano elements of the physical examinatio n, and noted my assessment and plan as outlined in the note. My note will serve as the note of the day. 24 Hour Events EEG monitoring Subjective Still not responding much; awaiting coordination with anesthesia and neuroradiology; sister , Latanya, states pt is restless and did not get much sleep. Pt moves our hand away during the exam but otherwise does not answer Physical Examination BP 137/93 | Pulse 81 | Temp 36.4 C (97.5 F) | RR 16 | Ht 1.68 m (5' 6.14") | Wt 125 kg (275 lb 9.6 oz) | SpO2 95% | BMI 44.29 kg/(m^2) Gen: as above CV: RRR with S1 S2, distant Lungs: clear but distant ABD: Pos BS, soft, non tender, no masses-moves hand away Ext: mild edema Meds: reviewed Labs Bun 32 EEG: IMPRESSION This awake and drowsy routine EEG is abnormal due to mild to moderate generalized slowing. This degree of slowing correlates to a mild to moderate encephalopathy that is nonspecific i n etiology. No epileptiform activity or seizures captured. Problem List 1) *Toxic metabolic encephalopathy 2) ARDS (adult respiratory distress syndrome) (H[facility]) 3) Pneumonia due to human metapneumovirus (hMPV) 4) Leukocytosis 5) HTN (hypertension) 6) CKD (chronic kidney disease) 7) SVT (supraventricular tachycardia) (H[facility]) 8) Severe obesity (BMI >= 40) (HCC) 9) (HFpEF) heart failure with preserved ejection fraction (HCC) 10) T2DM (type 2 diabetes mellitus) ([facility]) 11) Abnormal ventricular wall motion Assessment and Plan Toxic metabolic encephalopathy: overall trajectory continues to be out of proportion to exp ected recovery. VBG did not show evidence of significant retention as cause of encephalopath y; Anesthesia and Neuroradiology now coordinated for MRI of head, L spine and LP today. EEG for 30 min with photostimulation showed only generalized slowing and no evidence of seizure activity. Will await above studies to determine next steps. -Seroquel 50mg HS -Maintain dobhoff, still unable to PO safely -LP under sedation with MRI of L spine and head Pneumonia ARDS (adult respiratory distress syndrome) ([facility]) Pneumonia due to human metapneumovirus (hMPV) Completed course of antiobiotics for PNA while still in ICU. No lingering evidence of PNA o n CXR thus suspect initial event was aspiration but unclear as well why that would have happ ened. Will call to see if we can obtain collateral information on how pt was doing prior to this event -VBG as noted above Leukocytosis: suspected sinusitis based on Head CT findings and tenderness over maxillary s inuses on exam. Leukocytosis resolved -Complete augementin therapy tomorrow for sinusitis -Flonase Chronic heart failure with preserved ejection fraction (HCC) Regional wall movement abnormality -baby aspirin -statin increased from 10->80mg atorva daily -SARAVNAAN/BB on hold for now as we monitor BP which has trended down sli ghtly HTN(hypertension): Challening fluid status exam, seems to be euvolemic today but difficult exam -amlodipine 10mg daily -Carvedilol 18.75->25mg BID CKD (chronic kidney disease): Cr peakedat 1.56, now down to baseline. BUN stable SVT (supraventricular tachycardia): Transitioned form metop to carvedilol at OSH with no pe rsistent SVT in house T2DM: Home regimen glargine 75+ 30u lispro with meals. On NPH TID while on tube feeds -NPH to be reinitiated after procedure- -SSI Stable Chronic Issues #Severe obesity (BMI >= 40) ([facility]) No DVT prophy due to changing schedule of LP and sedation; will reinitiate after procedure. Lori Freeman MD Lori Lowe MD - 018 12:00 PM PDT ATTENDING [facility] PROGRESS NOTE TODAY'S DATE: 02/28/2018 (HOSPITAL DAY 17) I personally interviewed the patient, performed the marcano elements of the physical examinatio n, and have noted my assessment and plan as outlined in the note. This will serve as the not e of the day for the [facility] team 24 Hour Events none Subjective Pt opens eyes occasionally, shook her head no when we asked to listen but otherwise restles s in the bed, reaching into the air and for the siderail; sister does not see any difference -thought pt was more agitated last night Physical Examination BP 119/49 | Pulse 81 | Temp 36.8 C (98.2 F) | RR 16 | Ht 1.68 m (5' 6.14") | Wt 125 kg (275 lb 9.6 oz) | SpO2 92% | BMI 44.29 kg/(m^2) Gen: as above, restless CV: RRR but difficult to hear with habitus and positioning Lungs: difficult to hear due to positioning and encephalopathy ABD: Pos BS, soft, non tender, no masses though obese Ext: no change in edema Meds: reviewed Labs Wbc 10.97, Na 141, Bun 36 Problem List 1) *Toxic metabolic encephalopathy 2) ARDS (adult respiratory distress syndrome) ([facility]) 3) Pneumonia due to human metapneumovirus (hMPV) 4) Leukocytosis 5) HTN (hypertension) 6) CKD (chronic kidney disease) 7) SVT (supraventricular tachycardia) ([facility]) 8) Severe obesity (BMI >= 40) ([facility]) 9) (HFpEF) heart failure with preserved ejection fraction ([facility]) 10) T2DM (type 2 diabetes mellitus) ([facility]) 11) Abnormal ventricular wall motion Assessment and Plan Toxic metabolic encephalopathy: overall trajectory continues to be out of proportion to exp ected recovery. Attempted LP yesterday and despite trying, only able to obtain 1ml due to pt 's movement and then bowel movements. Working with anesthesia to schedule sedation for MRI of the brain, L spine (per neurorad request) and the MRI scanner dept. Suspect it will be t omorrow. Will also schedule EEG today to look into possibility of pt having sub-clinical st atus which is leading to current presentation. Will also check VBG to assess for hypercarbia since pt did not use CPAP. -Seroquel 50mg HS -Maintain dobhoff, still unable to PO safely -LP under sedation tomorrow with MRI of L spine and head -EEG monitoring today Pneumonia ARDS (adult respiratory distress syndrome) ([facility]) Pneumonia due to human metapneumovirus (hMPV) Completed course of antiobiotics for PNA while still in ICU. No lingering evidence of PNA o n CXR thus suspect initial event was aspiration but unclear as well why that would have happ ened. Will call to see if we can obtain collateral information on how pt was doing prior to this event -VBG as noted above Leukocytosis: suspected sinusitis based on Head CT findings and tenderness over maxillary s inuses on exam. Mild residual leukocytosis but improving -Complete augementin therapy tomorrow for sinusitis -Flonase Chronic heart failure with preserved ejection fraction ([facility]) Regional wall movement abnormality -baby aspirin -statin increased from 10->80mg atorva daily -SARAVANAN/BB on hold for now as we monitor BP which has trended down sli ghtly HTN(hypertension): Challening fluid status exam, seems to be euvolemic today but difficult exam -amlodipine 10mg daily -Carvedilol 18.75->25mg BID CKD (chronic kidney disease): Cr peaked at 1.56, now down to baseline. BUN stable SVT (supraventricular tachycardia) ([facility]): Transitioned form metop to carvedilol at OSH with no persistent SVT in house T2DM: Home regimen glargine 75+ 30u lispro with meals. On NPH TID while on tube feeds -NPH to be reinitiated after procedure-12 units but will need incre ase likely given hyperglycemia -SSI Stable Chronic Issues #Severe obesity (BMI >= 40) ([facility]) Lori Freeman MD Lori Lowe MD - 018 1:40 PM PDT ATTENDING [facility] PROGRESS NOTE TODAY'S DATE: 02/27/2018 (HOSPITAL DAY 16) I personally interviewed the patient, performed the marcano elements of the physical examinatio n, and have noted my assessment and plan as outlined in the note. This note serves as the no te of the day for the team. 24 Hour Events none Subjective Pt's sister at bedside today; states the pt remains very far off baseline; on occasion pt w ould respond to question or request by sister but with a small smile and only one word-stop; no other change Physical Examination BP 111/58 | Pulse 68 | Temp 37.1 C (98.8 F) | RR 18 | Ht 1.68 m (5' 6.14") | Wt 125.7 k g (277 lb 3.2 oz) | SpO2 94% | BMI 44.55 kg/(m^2) Gen: often staring off and at times will engage in eye contact; no purposeful movement or a nswering questions CV: RRR with S1 S2, distant Lungs: clear but also distant ABD: Pos BS, soft, non tender, no masses; obese Ext: +mild edema; states tenderness when palpated (both lower legs) Meds: Reviewed; no changes in medications Labs Alb 2.6, wbc 11, plt 325, na 142, k 4.1, bun 33, cr 0.81 Problem List 1) *Toxic metabolic encephalopathy 2) ARDS (adult respiratory distress syndrome) (H[facility]) 3) Pneumonia due to human metapneumovirus (hMPV) 4) Leukocytosis 5) HTN (hypertension) 6) CKD (chronic kidney disease) 7) SVT (supraventricular tachycardia) ([facility]) 8) Severe obesity (BMI >= 40) ([facility]) 9) (HFpEF) heart failure with preserved ejection fraction ([facility]) 10) T2DM (type 2 diabetes mellitus) ([facility]) 11) Abnormal ventricular wall motion Assessment and Plan Toxic metabolic encephalopathy: overall trajectory seems out of proportion to expected micaela very. Given ongoing encephalopathy with minimal change in last few days will plan for LP to day via neuroradiology. If negative, unsure what next steps will be. -Seroquel 50mg HS -Maintain dobhoff, still unable to PO safely -LP today- holding lovenox prophy Pneumonia ARDS (adult respiratory distress syndrome) (HCC) Pneumonia due to human metapneumovirus (hMPV) Completed course of antiobiotics for PNA while still in ICU. No lingering evidence of PNA o n CXR thus suspect initial event was aspiration but unclear as well why that would have happ ened -CPAP overnight Leukocytosis: suspected sinusitis based on Head CT findings and tenderness over maxillary s inuses on exam. Pt completing current therapy for sinusitis today. Mild residual leukocytos is -Continue augmentin (day 03/16) -Flonase Chronic heart failure with preserved ejection fraction (HCC) Regional wall movement abnormality -baby aspirin -statin increased from 10->80mg atorva daily -SARAVANAN/BB/Loop as above HTN(hypertension): Challening fluid status exam, seems to be euvolemic today. Will resume SARAVANAN/lasix tomorrow. Outs not quantified. -amlodipine 10mg daily -Carvedilol 18.75->25mg BID -Holding lisinopril/furosemide pending tomorrow's creatinine CKD (chronic kidney disease): Cr peaked at 1.56, now down to baseline. BUN stable SVT (supraventricular tachycardia) ([facility]): Transitioned form metop to carvedilol at OSH with no persistent SVT in house T2DM: Home regimen glargine 75+ 30u lispro with meals. On NPH TID while on tube feeds -NPH to be reinitiated after procedure-19 units but will need incre ase likely given hyperglycemia -SSI Stable Chronic Issues #Severe obesity (BMI >= 40) ([facility]) Lori Freeman MD Fidencio Plasencia MD - 02/26/2018 7:48 PM PDT General Internal Medicine 2 Progress Note 24 Hour Events: -No acute 24 hr events Current Symptoms: Not interactive, said 'there is a fungus among us' to the nurse but will not verbalize with us. Physical Examination: Last 24 hour min/max Temp: 36.6 C (97.9 F) Temp Min: 36.6 C (97.8 F) Max: 36.7 C (98.1 F) Pulse: 80 Pulse Min: 69 Max: 80 Resp: 20 Resp Min: 16 Max: 20 BP: 155/89 BP Min: 147/87 Max: 184/83 SpO2: 95 % SpO2 Min: 95 % Max: 98 % Body mass index is 47.04 kg/m. Date 02/26/18 0700 - 02/27/18 0659 Shift [id number] [id number] 3988-2073 24 Hour Total I N T A K E I.V. 10 10 Other 607 596 7582 Shift Total 223 941 1575 O U T P U T Shift Total (mL/kg) Weight (kg) 132.8 132.8 132.8 132.8 General: Encephalopathic adult female sideways in bed HEENT: Normocephalic, atraumatic, MM dry Lungs: Poor airmovement 2/2 to poor cooperation Heart: RRR, no murmurs rubs or gallops Abd: BS+, soft, non-tender Neuro: No focal deficits, reacted to her own joke but otherwise would not verbalize with us . Was able to follow command to squeeze hand. Laboratory Interpretation: Chemistries: Last 72 Hours (or 3 results): Recent Labs 02/24/18 0842 02/25/18 0621 02/26/18 0818 02/26/18 1234 02/26/18 1727 NA 146* -- 145 -- 144 -- -- K 4.0 -- 4.3 -- 3.9 -- -- CL 113* -- 111* -- 108 -- -- BICARB 28 -- 29 -- 29 -- -- BUN 39* -- 33* -- 33* -- -- EGFRAFRICAN >60 -- >60 -- >60 -- -- CR 0.80 -- 0.74 -- 0.76 -- -- GLU 297* < > 270* < > 242* 254* 211* CA 9.1 -- 9.1 -- 9.6 -- -- PO4 2.4 -- 2.4 -- 2.3* -- -- < > = values in this interval not displayed. CBC with diff last 72 hours (or 3 results) Recent Labs 02/24/18 0842 02/25/1862002/26/18817 WBC 13.98* 12.05* 11.41* HB 13.3 12.7 13.1 HCT 43.7 39.3 41.0 PLT 409* 320 339 NEUTROPERC 75.0* 70.3* 71.4* LYMPHPERC 15.2* 17.8* 18.5 MONOPERC 6.8 7.7 6.5 BASOPERC 0.6 0.6 0.8 EOSPERC 2.0 2.5 2.5 Imaging Interpretation: None New Brief Summary: 62 yo female w PMH of HTN, HFpEF, T2DM, OLIVIA and obesity admitted for acute hypoxic respirat ory in the setting of metapneumovirus and B/L pneumonia requiring intubation. Assessment and Plan # Toxic metabolic encephalopathy: Seemed improved yesterday but back to her recent baseline again, now believe that she requires LP. Discussed with LATANYA who is able to provide consent for the procedure - we did not obtain consent as we will not be performing procedure. -Seroquel 50mg HS -Maintain dobhoff, still unable to PO safely -LP tomorrow - holding lovenox prophy -Tube feeds off at midnight # Pneumonia # ARDS (adult respiratory distress syndrome) (HCC) # Pneumonia due to human metapneumovirus (hMPV) Completed course of antiobiotics for PNA while still in ICU. No lingering evidence of PNA o n CXR. Not on oxygen today while team was in the room. -Continues to improve -CPAP overnight -Benadryl cream for itchy nose # Leukocytosis: suspected sinusitis based on Head CT findings and tenderness over maxillar y sinuses on exam. Urine initially concerning for UTI was culture negative. -Continue augmentin (day 4/5) -Flonase # (HFpEF) heart failure with preserved ejection fraction (HCC) # HTN(hypertension): Challening fluid status exam, seems to be euvolemic today. Will resume SARAVANAN/lasix tomorrow. Outs not quantified. -amlodipine 10mg daily -Carvedilol 18.75->25mg BID -Holding lisinopril/furosemide pending tomorrow's creatinine # CKD (chronic kidney disease): Cr crested at 1.56, now down to baseline. BUN also now down trending. # SVT (supraventricular tachycardia) (HCC): Transitioned form metop to carvedilol at OSH wi th no persistent SVT. #T2DM: Home regimen is impressive, glargine 75+ 30u lispro with meals. On NPH TID while on tube feeds -NPH 16u-19u TID while on Tube feeds -SSI # Regional wall movement abnormality -baby aspirin -statin increased from 10->80mg atorva daily -SARAVANAN/BB/Loop as above Stable Chronic Issues # Severe obesity (BMI >= 40) ([facility]) Diet: Tube feeds (hold at midnight) Code: Full DVT: Holding for LP Dispo: In house likely through Sunday pending resolution of encephalopathy. Fidencio Arreaga MD/MPH PGY-3, Family Medicine Pager:[phone] Associated attestation - Lori Freeman MD - 02/26/2018 8:46 PM [facility]IC[facility] ATTENDIN G PROGRESS NOTE ADMIT DATE: 02/11/2018 12:12 AM TODAY'S DATE: 02/26/2018 (HOSPITAL DAY 15) I personally interviewed the patient, performed the pertinent parts of the physical examina tion and personally formulated the plan with the [facility] resident, Dr. Arreaga. I agree with the resident's documentation and have documented any additions or exceptions. Problem List 1) *Toxic metabolic encephalopathy 2) ARDS (adult respiratory distress syndrome) ([facility]) 3) Pneumonia due to human metapneumovirus (hMPV) 4) Leukocytosis 5) HTN (hypertension) 6) CKD (chronic kidney disease) 7) SVT (supraventricular tachycardia) ([facility]) 8) Severe obesity (BMI >= 40) ([facility]) 9) (HFpEF) heart failure with preserved ejection fraction ([facility]) 10) T2DM (type 2 diabetes mellitus) ([facility]) 11) Abnormal ventricular wall motion Assessment and Plan Pt remains encephalopathic more than we would expect this far into her hospitalization desp ite the number of sedating medications she has received. We will plan for LP in the am to r ule out meningitis (?fungal). Also, seems unusual that the pt developed ARDS but now her cx r is improved to normal. Given this it seems more consistent with aspiration pneumonitis bu t perhaps made worse by viral pneumonia. Fidencio Whitaker MD, MD - 02/25/2018 7:14 AM PDT General Internal Medicine 2 Progress Note 24 Hour Events: -Didn't wear CPAP last night because of an itchy nose -Fluids off overnight Current Symptoms: More alert and interactive today. When asked where she is she looks at her armband to try a nd read the hospital name. States her 's name and says that she is not in any pain. Physical Examination: Last 24 hour min/max Temp: 36.7 C (98.1 F) Temp Min: 36.4 C (97.5 F) Max: 37 C (98.6 F) Pulse: 82 Pulse Min: 74 Max: 85 Resp: 20 Resp Min: 18 Max: 20 BP: 168/82 BP Min: 112/87 Max: 168/82 SpO2: 94 % SpO2 Min: 92 % Max: 97 % Body mass index is 45.74 kg/m. General: Adult female in NAD, resting in bed HEENT: Normocephalic atraumatic, white plaques on tongue Lungs: decreased breath sounds in the bases with RLL crackles, otherwise poor aeration Heart: RRR, no murmurs rubs or gallops Abd: bs+, soft, non-tender Neuro: Alert and interactive, much improved from yesterday but still only oriented x1 Laboratory Interpretation: Chemistries: Last 72 Hours (or 3 results): Recent Labs 02/23/18 0602/24/18 0842 02/25/18 0621 02/25/18 1224 02/25/18 1413 NA 145 -- 146* -- 145 -- -- K 3.9 -- 4.0 -- 4.3 -- -- CL 112* -- 113* -- 111* -- -- BICARB 25 -- 28 -- 29 -- -- BUN 54* -- 39* -- 33* -- -- EGFRAFRICAN >60 -- >60 -- >60 -- -- CR 0.92 -- 0.80 -- 0.74 -- -- GLU 313* < > 297* < > 270* 258* 214* CA 9.6 -- 9.1 -- 9.1 -- -- PO4 2.6 -- 2.4 -- 2.4 -- -- < > = values in this interval not displayed. CBC with diff last 72 hours (or 3 results) Recent Labs 02/23/18 0620 02/24/18 0842 02/25/18 0621 WBC 15.30* 13.98* 12.05* HB 13.5 13.3 12.7 HCT 44.0 43.7 39.3 PLT 428* 409* 320 NEUTROPERC 78.7* 75.0* 70.3* LYMPHPERC 12.5* 15.2* 17.8* MONOPERC 6.9 6.8 7.7 BASOPERC 0.5 0.6 0.6 EOSPERC 1.0 2.0 2.5 Imaging Interpretation: None new Brief Summary: 62 yo female w PMH of HTN, HFpEF, T2DM, OLIVIA and obesity admitted for acute hypoxic respirat ory in the setting of metapneumovirus and B/L pneumonia requiring intubation. Assessment and Plan # Toxic metabolic encephalopathy: Significant improvement today compared to yesterday but s till a long way to go. Suspect encephalopathy secondary to prolonged MICU stay requiring int ubation as well as sepsis. Now appears to be slowly clearing -Seroquel 50mg HS -Maintain dobhoff, still unable to PO safely -Low threshold for LP if encephalopathy worsens # Pneumonia # ARDS (adult respiratory distress syndrome) ([facility]) # Pneumonia due to human metapneumovirus (hMPV) Completed course of antiobiotics for PNA while still in ICU. No lingering evidence of PNA o n CXR. Not on oxygen today while team was in the room. -Continues to improve -CPAP overnight -Benadryl cream for itchy nose # Leukocytosis: suspected sinusitis based on Head CT findings and tenderness over maxillar y sinuses on exam. Urine initially concerning for UTI was culture negative. -Continue augmentin (day 3/5) -Flonase # (HFpEF) heart failure with preserved ejection fraction (HCC) # HTN(hypertension): Challening fluid status exam, seems to be euvolemic today. Will resume SARAVANAN/lasix as creatin ine allows if remains hypertesive. -amlodipine 10mg daily -Carvedilol 18.75->25mg BID -Holding lisinopril/furosemide in the setting of NANCY # CKD (chronic kidney disease): Cr crested at 1.56, now down to baseline. BUN also now down trending. # SVT (supraventricular tachycardia) ([facility]): Transitioned form metop to carvedilol at OSH wi th no persistent SVT. #T2DM: Home regimen is impressive, glargine 75+ 30u lispro with meals. On NPH TID while on tube feeds -NPH 14u -> 16u TID -SSI # Regional wall movement abnormality -baby aspirin -statin increased from 10->80mg atorva daily -SARAVANAN/BB/Loop as above Stable Chronic Issues # Severe obesity (BMI >= 40) (HCC) Diet: TF DVT: Lovenox Code: Full Dispo: Likely in house through the week as she continues to clear. Fidencio Arreaga MD/MPH PGY-3, Family Medicine Pager:[phone] Associated attestation - Lori Freeman MD - 02/25/2018 7:01 PM PDTGENERAL MEDICINE ATTENDIN G PROGRESS NOTE ADMIT DATE: 02/11/2018 12:12 AM TODAY'S DATE: 02/25/2018 (HOSPITAL DAY 14) I personally interviewed the patient, performed the pertinent parts of the physical examina tion and personally formulated the plan with the [facility] resident, Dr. Arreaga. I agree with the resident's documentation and have documented any additions or exceptions. Interval Hx: awake, answered questions with one word but somewhat intelligible and sensical Exam notable for: BP 165/69 | Pulse 74 | Temp 36.8 C (98.2 F) | RR 18 | Ht 1.68 m (5' 6.14") | Wt 134.3 k g (296 lb) | SpO2 94% | BMI 47.57 kg/(m^2) As noted by Dr. Arreaga and confirmed by me. Labs/imaging notable for: BMS normal, wbc 12 Problem List 1) *Toxic metabolic encephalopathy-much improved from yesterday; if improvement does not c ontinue, will plan for LP. Continue seroquel 2) ARDS (adult respiratory distress syndrome) due to aspiration given marked improvement i n cxr 3) Pneumonia due to human metapneumovirus (hMPV) 4) Leukocytosis-improving since initiation of augmentin for possible sinusitis 5) HTN (hypertension) 6) CKD (chronic kidney disease) 7) SVT (supraventricular tachycardia)-resolved in ICU 8) Severe obesity (BMI >= 40) ([facility]) 9) (HFpEF) heart failure with preserved ejection fraction-increased carvedilol, continued amlodipine; lisinopril and lasix on hold but will restart tomorrow if Cr remains normal 10) T2DM (type 2 diabetes mellitus) (HCC) 11) Abnormal ventricular wall motion Sierra Lynne MD, DO - 02/24/2018 11:42 AM PDT GM2 ATTENDING PROGRESS NOTE PATIENT'S NAME/MRN: Sarah Reeves/[id number] HOSPITAL DAY: #13 24-HOUR EVENTS: -No acute events -Increased NPH from 7 to 11, remains hyperglycemic to 200s (from 300s) -Stopped cephlexin for UTI, started amoxicillin-clavulanate for sinusitis -Started maintenance fluids yesterday -Started qhs quetiapine yesterday, per noc RN, slept better but still restless at times -Remains on 3L oxygen [place] SUBJECTIVE: Nods to answer questions: denies pain. Nonverbal otherwise. Latanya not at bedsid e today. Inpatient Medication list has been reviewed by me today. Current Facility-Administered Medications: acetaminophen (TYLENOL) oral suspension 1,000 mg , 1,000 mg, feeding tube, TID PRN, Angel Renee MD, 1,000 mg at 02/19/18 1601 amLODIPine (NORVASC) tablet 10 mg, 10 mg, feeding tube, DAILY, Van Palma MD, 10 mg at 02/24/18 0941 amoxicillin-clavulanate (AUGMENTIN) 875-125 mg 875 mg, 875 mg, oral, BID, Sierra wise DO, 875 mg at 02/24/18 0941 aspirin chewable tablet 81 mg, 81 mg, feeding tube, DAILY, Sierra Rizo DO, 81 mg at 02/24/18 0940 atorvastatin (LIPITOR) tablet 80 mg, 80 mg, feeding tube, DAILY, Sierra Rizo DO, 80 mg at 02/24/18 0941 budesonide (PULMICORT) 0.5 mg/2 mL nebulizer suspension 0.5 mg, 0.5 mg, inhalation, BID, Osiris Carrasco MD, 0.5 mg at 02/24/18 1017 carvedilol (COREG) tablet 18.75 mg, 18.75 mg, feeding tube, BID, Leif Matamoros MD, 18.75 mg at 02/24/18 0940 dextrose 50 % in water IV 25 mL, 25 mL, intravenous, PRN, Sierra Rizo DO diphenhydrAMINE-zinc acetate (BENADRYL ITCH STOPPING) 2-0.1 % cream, , topical, QID PRN, Ronaldo Rizo DO enoxaparin (LOVENOX) injection 40 mg, 40 mg, subcutaneous, Q12H (Scheduled), Will Mcclure MD, 40 mg at 02/24/18 0940 fluticasone (FLONASE) 50 mcg/actuation nasal spray 2 spray, 2 spray, both nostrils, BID, Ronaldo Rizo DO, 2 spray at 02/23/182058 glucagon (GLUCAGEN) injection 1 mg, 1 mg, intramuscular, PRN, Danette Cole MD glucose chewable tablet 4-40 g, 4-40 g, oral, PRN, Will Mcclure MD guar gum (BENEFIBER) oral powder 1 packet, 1 packet, oral, DAILY, Sierra Rizo DO, 1 packet at 02/24/18 0939 influenza vaccine (FLUZONE) (PF) IM injection (age 3 years or greater) 0.5 mL, 0.5 mL, intr amuscular, Day of Discharge, Van Palma MD insulin lispro (HUMALOG) injection, , subcutaneous, QID, Fidencio Arreaga MD, 4 Units at 02/24/18 0612 insulin NPH (HUMULIN N) injection 14 Units, 14 Units, subcutaneous, Q8H, Fidencio Arreaga MD ipratropium-albuterol (DUO-NEB) nebulizer solution 3 mL, 3 mL, inhalation, Q6H PRN, Sierra Rizo DO lactated Ringers IV, 125 mL/hr, intravenous, CONTINUOUS, Sierra Rizo DO, Last Rate: 125 mL/hr at 02/24/18 0736, 125 mL/hr at 02/24/18 0736 melatonin tablet 3 mg, 3 mg, feeding tube, QPM, Sierra Rizo DO, 3 mg at 02/23/18 20 51 menthol-zinc oxide (CALAZIME) topical paste 0.2%-16.5%, , topical, QID PRN, Angel Renee MD nystatin (MYCOSTATIN) powder, , topical, BID, Fercho Carrasco MD nystatin-zinc oxide-lidocaine (NDX) ointment (compound), , topical, TID, Sierra [place] , polyethylene glycol (MIRALAX) packet 34 g, 34 g, feeding tube, TID PRN, Leif Matamoros MD probiotic kefir (KEYONNA'S KEFIR), , feeding tube, TID, Sierra [place], DO QUEtiapine (SEROQUEL) tablet 50 mg, 50 mg, oral, QPM, Sierra [place], senna (SENOKOT) liquid 17.6 mg, 10 mL, feeding tube, BID PRN, Van Palma MD, 17.6 mg at 02/22/18 1400 sertraline (ZOLOFT) tablet 100 mg, 100 mg, oral, DAILY, Van Palma MD, 100 mg at 0941 white petrolatum-mineral oil-lanolin (LACRILUBE) 83-15 % ophthalmic ointment, , Both Eyes, PRN, Van Palma MD OBJECTIVE: Last Vitals: BP 149/64 | Pulse 68 | Temp 36.6 C (97.9 F) | RR 16 | Ht 1.68 m (5' 6.14") | Wt 129.1 kg (284 lb 9.6 oz) | SpO2 94% | BMI 45.74 kg/(m^2) 24 Hour Vital Min/Max: Systolic (24hrs), Av , Min:118 , Max:168 Diastolic (24hrs), Av, Min:50, Max:108 Pulse Min: 68 Max: 85 Temp Min: 36.4 C (97.5 F) Max: 37 C (98.6 F) Resp Min: 16 Max: 20 SpO2 Min: 94 % Max: 97 % Intake/Output Summary (Last 24 hours) at 02/24/18 1147 Last data filed at 02/24/18 0813 Gross per 24 hour Intake 1490 ml Output 0 ml Net 1490 ml 4 BM PHYSICAL EXAMINATION: General: No distress, lying in bed, alert and oriented x0, nods yes/no to questions HEENT: MMM, no scleral icterus/conjunctival injection, plethoric Neck: Supple, JVP not elevated Cardiovascular: RRR, S1S2, no murmurs, gallops, or rubs Lungs: Unlabored breathing, occasional dry cough. Clear to auscultation bilaterally without crackles, rhonchi, or wheezes. Abdomen: Obese. Bowel sounds present.Soft, nontender, and nondistended. No guarding or rebound. Ext: Warm and well-perfused. No peripheral edema. No rashes appreciated. Neuro: Nonfocal. Face symmetric. Moving all 4 extremities equally. Follows commands (hand s queeze). LABS/IMAGING/EKG: I have reviewed new data available in the electronic medical record. Not able findings Include: Chemistries: Last 72 Hours (or 3 results) - Refreshable Recent Labs 02/22/18 0544 02/23/18 0620 02/23/18 2336 02/24/18 0603 02/24/18 0842 NA 148* -- 145 -- -- -- 146* K 3.8 -- 3.9 -- -- -- 4.0 CL 115* -- 112* -- -- -- 113* BICARB 25 -- 25 -- -- -- 28 BUN 45* -- 54* -- -- -- 39* EGFRAFRICAN >60 -- >60 -- -- -- >60 CR 0.89 -- 0.92 -- -- -- 0.80 GLU 163* < > 313* < > 220* 240* 297* CA 9.6 -- 9.6 -- -- -- 9.1 MG 2.4 -- -- -- -- -- -- PO4 2.4 -- 2.6 -- -- -- 2.4 < > = values in this interval not displayed. Recent Labs 02/11/18 0036 02/22/18 0544 02/23/18 0620 02/24/18 0842 AST 40 -- -- 44* -- ALT 22 -- -- 53 -- TBILI 0.5 -- -- 0.4 -- AP 59 -- -- 66 -- ALB 2.6* < > 2.7* 2.7* | 2.6* 2.7* TP 6.4 -- -- 7.8 -- < > = values in this interval not displayed. CBC with diff last 72 hours (or 3 results) - Refreshable Recent Labs 02/22/18 0544 02/23/18 0620 02/24/18 0842 WBC 17.11* 15.30* 13.98* HB 13.6 13.5 13.3 HCT 44.2 44.0 43.7 PLT 401* 428* 409* NEUTROPERC 78.7* 78.7* 75.0* LYMPHPERC 11.9* 12.5* 15.2* MONOPERC 6.8 6.9 6.8 BASOPERC 0.6 0.5 0.6 EOSPERC 1.4 1.0 2.0 Lab Results Component Value Date CHOL 151 02/23/2018 LDL 83 02/23/2018 HDL 34 02/23/2018 TRI 170 02/23/2018 Lab Results Component Value Date TSH 1.80 02/23/2018 CBGs 220-316 VBG 7.42/43 UA with 29 WBC, few squamous cells Urine culture with no growth (<1000 cfu/mL) after 24 hours C. Diff toxin indeterminate, negative by PCR CT head, 02/22 Frothy secretions fill the paranasal sinuses, which may be seen in the setting of sinusitis . No acute intracranial abnormality. CXR, 02/21 Overall improved aeration with resolution of bilateral opacities. Minimal residual left low er lobe atelectasis. Abdominal feeding tube, 02/22 Single frontal view of the abdomen obtained. The tip of the feeding tube is in the gastric fundus, pointing to the left. TTE, 02/11 1. The left ventricular cavity size is normal. 2. The LV function is normal. 3. Left ventricular systolic thickening is segmentally abnormal (see comments below). Findi ngs suggest prior LAD territory infarct. 4. Right ventricular size, thickness and function are normal. 5. There are no prior exams available for comparison. ASSESSMENT/PLAN: Sarah Reeves is a 62 year-old woman with OLIVIA on CPAP, persistent asthma, HTN, HFpEF (EF 6 5-70% 10/2017), and DM2 (A1c 10.6%) who was initially transferred from OSH to [facility] MICU 02/10 for further management of acute hypoxemic respiratory failure secondary to metapneumovirus w ith superimposed bacterial infection, course complicated by dense, slow to improve toxic met abolic encephalopathy, uremia, and suspected bacterial sinusitis. Toxic metabolic encephalopathy Biggest clinical concern at this time is toxic metabolic encephalopathy: dense and slow to improve since extubation on 02/20 and likely multifactorial. Suspect related to prolonged ICU stay and severe illness, but also medications may be contributing (propofol, midazolam whil e intubated as well as intermittent oxycodone and IV hydromorphone while in the MICU)--as we ll as with contributions from possible sinusitis, elevated BUN (peak 54), and mild hypernatr emia (peak 148). Urine culture negative, repeat CXR improving. C. difficile negative. CT hea d with no acute findings (except possible sinusitis). No CO2 retention. TSH normal. EKG with out acute ischemia (LAD infarct old). Complication of encephalopathy is poor by mouth intake , so Dobbhoff tube replaced 02/22. -Treatment for suspected sinusitis as below -Fluids as below -Will hold all centrally-acting meds at this time including opiates and gabapentin -Continue scheduled melatonin qhs and increase seroquel 25mg--> 50mg qhs to regulate sleep wake cycle -Doing other standard delirium precautions: keep patient as active as possible, frequent r eorientation, caregivers at bedside, reduce tethers, ensure bowel regularity -Continue NPO status and Dobbhoff tube for tube feeds/enteral access -Appreciate WRINGER OPERATOR continuing to reevaluate swallow, transition to PO when safe per WRINGER OPERATOR -Scheduled voids with turning q2 hours BUN elevated out of proportion to Cr Hypernatremia Cr improving over course of hospitalization(1.5--> 0.8), but BUN on the rise (21--> 54). Florence spect dehydration/prerenal picture in the setting of aggressive diuresis in the MICU and the n poor PO intake for 2 days after extubation, now improving to 39 today with IV maintenance fluids yesterday; will also increase free water flushes in tube feeds. No evidence of worsen ing anemia to suggest GIB, no recent corticosteroids to explain elevated BUN. Na also elevat ed to 146, so will increase free water for this. -continue IV maintenance fluids today at 125mL/hour (LR) with caution given history of hea rt failure, stop time at 9pm tonight -increase free water flushes from 300mL q8 to q4 hours -daily BMP and continue to adjust as needed Suspected bacterial sinusitis Leukocytosis Improving WBC from peak of 20 down to 13 today. Neutrophil predominance. Possibly due to ba cterial sinusitis given radiographic appearance of frothy secretions, nasal congestion, and maxillary tenderness on exam. -continue Augmentin BID for 5 day course (day 2) -continue fluticasone nasal spray BID -daily CBC for now DM2 CBGs not at goal, up to nearly 300 this AM, but improved from yesterday. Likely exacerbated by starting tube feeding. -increase NPH q8 hours from 11 to 14 U today (home dose 75 glargine qhs and 30 lispro TID with meals) -continue mild sliding scale insulin -CBGs qac and qhs -hypoglycemia protocol in place HTN Improved with home meds via Dobbhoff tube yesterday, but still above goal in the 150/90s, s o will increase carvedilol today. -continue amlodipine 10mg daily -increase carvedilol from 18.75--> 25mg BID -holding home lisinopril/furosemide given concern for/risk of renal injury ARDS (adult respiratory distress syndrome), improving Pneumonia due to human metapneumovirus (hMPV) Secondary bacterial pneumonia, treated History of asthma Treated empirically in MICU with vancomycin and piperacillin/tazobactam, found to have meta pneumovirus but with concern for secondary bacterial pneumonia as well as ARDS. Intubated 02/11-02/20, delayed extubation for AMS (passing SBTs 2 days prior). Respiratory status improving , but slowly in setting of OLIVIA (and possibly OHS) improving. -Continue to wean supplemental oxygen as able, likely will need oxygen on discharge -Budesonide BID -Duonebs PRN Hypercalcemia Mild to 10.7--10.1 today, ical 1.3. Possibly due to immobility given prolonged course, but alk phos normal. Continue to monitor for now. -gentle IV fluids as above Suspected CAD Given wall motion abnormalities on TTE in MICU with LAD territory down and EKG with old ant erior infarct. EKG yesterday without acute infarct. -continue baby aspirin daily (started 02/23) -continue atorvastatin 80mg daily (increased from 10mg on 02/23) -continue carvedilol as above -holding home lisinopril for now -outpatient cardiology evaluation HFpEF Appears euvolemic to hypovolemic. -Hold off on diuresis today (home furosemide 40mg daily) -Gentle IV fluids -Daily weights -Strict I/Os Thrombocytosis 401 to 428 peak, now 409. Possibly reactive in setting of acute sinusitis? -trend CBC for now Diarrhea C. Diff PCR negative. Possibly related to tube feeds. -probiotics for C. Diff prevention -aded fiber to tube feeds (Benefiber 1 packet daily) OLIVIA -continue home CPAP at night CODE status: FULL Thromboembolic prophylaxis: SQ enoxaparin Dispo plans: discharge pending improvement in encephalopathy, anticipate discharge to skill ed nursing facility likely mid- week, ~02/27 I spent 36 minutes in the care of this patient while on the medical unit today of which gre ater than 50% was spent counseling and coordinating care for the patient. Sierra Rizo DO Materials Development Engineerbinding end stitcher Clinical Hospitalist and Medicine Teaching Service Division of Hospital Medicine [facility] Pager [phone] [facility] DEPARTMENT: Hosp- [phone] Place of Service: - [id number] CSN: [id number] Modifiers:GC Resident Involved: No Suggested CPT: 50435 Subsequent Visit Detailed/High complexity 35 min Rasheeda Ocampo DO - 02/23/2018 7:37 AM PDT . GM2 ATTENDING PROGRESS NOTE PATIENT'S NAME/MRN: Sarah Reeves/[id number] HOSPITAL DAY: #12 24-HOUR EVENTS: -No acute events -Dobbhoff tube placed and tube feeds started -Started Keflex for possible UTI -C. Diff checked -Transitioned from Endotool to SC insulin -Remains on 3L oxygen [place] SUBJECTIVE: Denies pain, shortness of breath. Sister Latanya notes she was restless last night and also is having difficulty waiting to urinate until someone can help her. Inpatient Medication list has been reviewed by me today. Current Facility-Administered Medications: acetaminophen (TYLENOL) oral suspension 1,000 mg , 1,000 mg, feeding tube, TID PRN, Angel Renee MD, 1,000 mg at 02/19/18 1601 amLODIPine (NORVASC) tablet 10 mg, 10 mg, feeding tube, DAILY, Van Palma MD, 10 mg at 02/22/18 140 atorvastatin (LIPITOR) tablet 10 mg, 10 mg, feeding tube, DAILY, Fercho Carrasco MD, 10 mg at 02/22/181400 budesonide (PULMICORT) 0.5 mg/2 mL nebulizer suspension 0.5 mg, 0.5 mg, inhalation, BID, Mi sunni Carrasco MD, 0.5 mg at 02/22/182030 carvedilol (COREG) tablet 18.75 mg, 18.75 mg, feeding tube, BID, Leif Matamoros MD, 18.75 mg at 02/22/182032 cephALEXin (KEFLEX) suspension 250 mg, 250 mg, feeding tube, Q6H, Fidencio Arreaga MD, 25 0 mg at 02/23/18618 enoxaparin (LOVENOX) injection 40 mg, 40 mg, subcutaneous, Q12H (Scheduled), Will Mcclure MD, 40 mg at 02/22/182032 glucagon (GLUCAGEN) injection 1 mg, 1 mg, intramuscular, PRN, Danette Cole MD glucose chewable tablet 4-40 g, 4-40 g, oral, PRN, Will Mcclure MD influenza vaccine (FLUZONE) (PF) IM injection (age 3 years or greater) 0.5 mL, 0.5 mL, intr amuscular, Day of Discharge, Van Palma MD insulin lispro (HUMALOG) injection, , subcutaneous, QID, Fidencio Arreaga MD, 8 Units at 02/23/18 0039 insulin NPH (HUMULIN N) injection 7 Units, 7 Units, subcutaneous, Q8H, Katelyn Ray, 7 Units at 02/23/18618 ipratropium-albuterol (DUO-NEB) nebulizer solution 3 mL, 3 mL, inhalation, Q6H PRN, Sierra Rizo DO melatonin tablet 3 mg, 3 mg, feeding tube, QPM, Sierra Rizo DO, 3 mg at 02/22/18 20 34 menthol-zinc oxide (CALAZIME) topical paste 0.2%-16.5%, , topical, QID PRN, Angel Renee MD nystatin (MYCOSTATIN) powder, , topical, BID, Fercho Carrasco MD polyethylene glycol (MIRALAX) packet 34 g, 34 g, feeding tube, TID PRN, Leif Matamoros MD senna (SENOKOT) liquid 17.6 mg, 10 mL, feeding tube, BID PRN, Van Palma MD, 17.6 mg at 02/22/18 1400 sertraline (ZOLOFT) tablet 100 mg, 100 mg, oral, DAILY, Van Palma MD, 100 mg at 1401 white petrolatum-mineral oil-lanolin (LACRILUBE) 83-15 % ophthalmic ointment, , Both Eyes, PRN, Van Palma MD OBJECTIVE: Last Vitals: BP 117/53 | Pulse 74 | Temp 37 C (98.6 F) | RR 18 | Ht 1.68 m (5' 6.14") | Wt 129.1 kg (284 lb 9.6 oz) | SpO2 97% | BMI 45.74 kg/(m^2) 24 Hour Vital Min/Max: Systolic (24hrs), Av , Min:103 , Max:172 Diastolic (24hrs), Av, Min:42, Max:74 Pulse Min: 70 Max: 87 Temp Min: 36.3 C (97.3 F) Max: 37 C (98.6 F) Resp Min: 20 Max: 21 SpO2 Min: 91 % Max: 96 % Intake/Output Summary (Last 24 hours) at 02/23/18 0737 Last data filed at 02/23/18 0636 Gross per 24 hour Intake 1683 ml Output 5 unmeasured urine Net 1683 ml 3 BM PHYSICAL EXAMINATION: General: No distress, lying in bed, alert and oriented x0, only nods yes/no to questions HEENT: MMM, no scleral icterus/conjunctival injection Neck: Supple, JVP not elevated Cardiovascular: RRR, S1S2, no murmurs, gallops, or rubs Lungs: Unlabored breathing. Clear to auscultation bilaterally without crackles, rhonchi, or wheezes. Abdomen: Obese. Bowel sounds present.Soft, nontender, and nondistended. No guarding or rebound. Ext: Warm and well-perfused. No peripheral edema. No rashes appreciated. Neuro: Nonfocal. Face symmetric. Moving all 4 extremities equally. Picking at her sheets, h ands. Intermittently follows commands. LABS/IMAGING/EKG: I have reviewed new data available in the electronic medical record. Not able findings Include: Chemistries: Last 72 Hours (or 3 results) - Refreshable Recent Labs 02/21/1842902/22/1844 02/23/18 0028 02/23/18 0611 02/23/18 0620 NA 145 -- 148* -- -- -- 145 K 4.2 -- 3.8 -- -- -- 3.9 CL 110* -- 115* -- -- -- 112* BICARB 26 -- 25 -- -- -- 25 BUN 49* -- 45* -- -- -- 54* EGFRAFRICAN >60 -- >60 -- -- -- >60 CR 1.09 -- 0.89 -- -- -- 0.92 GLU 177* < > 163* < > 309* 294* 313* CA 9.6 -- 9.6 -- -- -- 9.6 MG 2.3 -- 2.4 -- -- -- -- PO4 3.0 -- 2.4 -- -- -- 2.6 < > = values in this interval not displayed. Recent Labs 02/11/18 0036 02/21/1842902/22/1854302/23/18 0620 AST 40 -- -- -- 44* ALT 22 -- -- -- 53 TBILI 0.5 -- -- -- 0.4 AP 59 -- -- -- 66 ALB 2.6* < > 2.7* 2.7* 2.7* | 2.6* TP 6.4 -- -- -- 7.8 < > = values in this interval not displayed. CBC with diff last 72 hours (or 3 results) - Refreshable Recent Labs 02/21/1842902/22/1854302/23/18 0620 WBC 20.38* 17.11* 15.30* HB 13.3 13.6 13.5 HCT 43.1 44.2 44.0 PLT 394 401* 428* NEUTROPERC 77.9* 78.7* 78.7* LYMPHPERC 12.2* 11.9* 12.5* MONOPERC 7.3 6.8 6.9 BASOPERC 0.5 0.6 0.5 EOSPERC 1.5 1.4 1.0 Lab Results Component Value Date CHOL 151 02/23/2018 LDL 83 02/23/2018 HDL 34 02/23/2018 TRI 170 02/23/2018 Lab Results Component Value Date TSH 1.80 02/23/2018 CBGs 136-313 VBG 7.42/43 UA with 29 WBC, few squamous cells Urine culture with no growth (<1000 cfu/mL) after 24 hours C. Diff toxin indeterminate, negative by PCR CT head, 02/22 Frothy secretions fill the paranasal sinuses, which may be seen in the setting of sinusitis . No acute intracranial abnormality. CXR, 02/21 Overall improved aeration with resolution of bilateral opacities. Minimal residual left low er lobe atelectasis. Abdominal feeding tube, 02/22 Single frontal view of the abdomen obtained. The tip of the feeding tube is in the gastric fundus, pointing to the left. TTE, 02/11 1. The left ventricular cavity size is normal. 2. The LV function is normal. 3. Left ventricular systolic thickening is segmentally abnormal (see comments below). Findi ngs suggest prior LAD territory infarct. 4. Right ventricular size, thickness and function are normal. 5. There are no prior exams available for comparison. ASSESSMENT/PLAN: Sarah Reeves is a 62 year-old woman with OLIVIA on CPAP, persistent asthma, HTN, HFpEF (EF 6 5-70% 10/2017), aand DM2 (A1c 10.6%) who was initially transferred from OSH to [facility] MICU 11/2017 for further management of acute hypoxemic respiratory failure secondary to metapneum ovirus with superimposed bacterial infection, course complicated by dense, slow to improve t oxic metabolic encephalopathy, uremia, and suspected bacterial sinusitis. Toxic metabolic encephalopathy Biggest clinical concern at this time is toxic metabolic encephalopathy: dense and slow to improve since extubation on 02/20 and likely multifactorial. Suspect related to prolonged ICU stay and severe illness, but also medications may be contributing (propofol, midazolam whil e intubated as well as intermittent oxycodone and IV hydromorphone while in the MICU). Diffe rential also includes infection given leukocytosis--and found to have pyuria on UA, but urin e culture negative. Repeat CXR improving. C. difficile negative. CT head with no acute findi ngs except possible sinusitis. No CO2 retention. Mild hypernatremia to 148 possibly contribu ting, improved with free water yesterday to 145 today. Also, BUN rising in recent days to th e 50s so possibly uremia is contributing. Complication of encephalopathy is poor by mouth in take, so Dobbhoff tube replaced 02/22. -Treatment for suspected sinusitis as below -Stopped Keflex for UTI given culture negative -Will hold all centrally-acting meds at this time including opiates and gabapentin -Add on TSH and repeat EKG for thoroughness today -Continue scheduled melatonin qhs and START seroquel 25mg qhs to regulate sleep wake cycle -Doing other standard delirium precautions: keep patient as active as possible, frequent r eorientation, caregivers at bedside, reduce tethers, ensure bowel regularity -Continue NPO status and Dobbhoff tube for tube feeds/enteral access -Appreciate WRINGER OPERATOR continuing to reevaluate swallow, transition to PO when safe per WRINGER OPERATOR -Scheduled voids with turning q2 hours BUN elevated out of proportion to Cr Cr improving over course of hospitalization, but BUN on the rise. Suspect dehydration/prere nal picture in the setting of aggressive diuresis in the MICU and then poor PO intake for 2 days after extubation. No evidence of worsening anemia to suggest GIB contributing to this, no recent corticosteroids. Tube feeds with high protein but also possible catabolic state gi jaquan recent severe critical illness. -start IV maintenance fluids today at 125mL/hour (LR) with caution given history of heart failure -hold off on changing tube feeds protein content for now -daily BMP/CBC Suspected bacterial sinusitis Leukocytosis Improving WBC from peak of 20 down to 15 today. Neutrophil predominance. Possibly due to ba cterial sinusitis given radiographic appearance of frothy secretions, nasal congestion, and maxillary tenderness on exam. -start Augmentin BID for 5 day course -start fluticasone nasal spray BID -daily CBC for now DM2 CBGs not at goal, up to >300 this AM. Likely exacerbated by starting tube feeding yesterday and coming off Endotool. -increase NPH q8 hours from 7 to 11 U today -continue mild sliding scale insulin -CBGs qac and qhs -hypoglycemia protocol in place HTN Worsening hypertension yesterday related to her not getting her home carvedilol twice a day or amlodipine given not taking PO--improved with home meds via Dobbhoff tube yesterday. -continue amlodipine 10mg daily and carvedilol 18.75 BID -holding home lisinopril given concern for/risk of renal injury ARDS (adult respiratory distress syndrome), improving Pneumonia due to human metapneumovirus (hMPV) Secondary bacterial pneumonia, treated History of asthma Treated empirically in MICU with vancomycin and piperacillin/tazobactam, found to have meta pneumovirus but with concern for secondary bacterial pneumonia as well as ARDS. Intubated 02/11-02/20, delayed extubation for AMS (passing SBTs 2 days prior). Respiratory status improving , but slowly in setting of OLIVIA (and possibly OHS) improving. -Continue to wean supplemental oxygen as able, likely will need oxygen on discharge -Budesonide BID -Duonebs PRN Hypercalcemia Mild to 10.7. Possibly due to immobility given prolonged course. -check alk phos today and ionized calcium tomorrow -gentle IV fluids as above Hypernatremia Secondary to poor PO/dehydration. Improving with free water flushes via DHT. -continue daily BMP and adjust free water flushes as needed Suspected CAD Given wall motion abnormalities on TTE in MICU with LAD territory down and EKG with old ant erior infarct. -start baby aspirin daily today -increase atorvastatin from 10 to 80mg daily, check lipid set today -continue carvedilol as above -holding home lisinopril for now -outpatient cardiology evaluation HFpEF Appears euvolemic to hypovolemic. -Hold off on diuresis today. -Gentle IV fluids -Daily weights -Strict I/Os Thrombocytosis 401 to 428 today. Possibly reactive in setting of acute sinusitis? -trend CBC for now Diarrhea C. Diff PCR negative. Possibly related to tube feeds. -start probiotics for C. Diff prevention -add fiber to tube feeds today (Benefiber 1 packet daily) OLIVIA -continue home CPAP at night CODE status: FULL Thromboembolic prophylaxis: SQ enoxaparin Dispo plans: discharge pending improvement in encephalopathy, anticipate discharge to [facility] nursing facility likely mid- week, ~02/27 I spent 40 minutes in the care of this patient while on the medical unit today of which gre ater than 50% was spent counseling and coordinating care for the patient. Sierra Rizo DO Materials Development Engineerbinding end stitcher Clinical Hospitalist and Medicine Teaching Service Division of Hospital Medicine [facility] Pager [phone] [facility] DEPARTMENT: Hosp- [phone] Place of Service: - CSN: [id number] Modifiers:GC Resident Involved: No Suggested CPT: 40036 Subsequent Visit Detailed/High complexity 35 min idencio Arreaga MD - 02/22/2018 9:00 PM PDT General Internal Medicine 2 Progress Note 24 Hour Events: -Transferred out of MICU -Remains minimally interactive but responsive Current Symptoms: Denies pain. Per sister Latanya, has had diarrhea, had rectaltube in MICU. She is no where ne ar her baseline. Answers yes no questions and follows simple commands but otherwise just sta irs at you and lays her head on pillow when she can't come up with an answer. Physical Examination: Last 24 hour min/max Temp: 37 C (98.6 F) Temp Min: 36.7 C (98.1 F) Max: 37 C (98.6 F) Pulse: 74 Pulse Min: 74 Max: 86 Resp: 20 Resp Min: 16 Max: 23 BP: 127/48 BP Min: 103/55 Max: 172/72 SpO2: 96 % SpO2 Min: 93 % Max: 97 % Body mass index is 45.74 kg/m. Date 02/22/18 0700 - 02/23/18 0659 Shift 3381-4354 7409-3752 6407-3998 24 Hour Total I N T A K E Other 430 430 Shift Total 430 430 O U T P U T Shift Total (mL/kg) Weight (kg) 129.1 129.1 129.1 129.1 General: Chronically ill appearing adult female in NAD HEENT: normocephalic, atrauamtic Lungs: CTA in anterior bell Heart: Distant sounds, regular Abd: soft, non-tender Neuro: Altered, able to follow commands but not able to answer complex questions. Laboratory Interpretation: CBC with diff last 72 hours (or 3 results) Recent Labs 02/20/18 0453 02/21/18 0430 02/22/18 0544 WBC 17.96* 20.38* 17.11* HB 12.9 13.3 13.6 HCT 41.6 43.1 44.2 PLT 351 394 401* NEUTROPERC 78.8* 77.9* 78.7* LYMPHPERC 11.5* 12.2* 11.9* MONOPERC 7.0 7.3 6.8 BASOPERC 0.6 0.5 0.6 EOSPERC 1.3 1.5 1.4 Chemistries: Last 72 Hours (or 3 results): Recent Labs 02/20/18 0503 02/21/18 0430 02/22/18 0544 02/22/18 1341 02/22/18 1452 02/22/18 1809 NA 142 -- 145 -- 148* -- -- -- -- K 4.0 -- 4.2 -- 3.8 -- -- -- -- CL 110* -- 110* -- 115* -- -- -- -- BICARB 24 -- 26 -- 25 -- -- -- -- BUN 49* -- 49* -- 45* -- -- -- -- EGFRAFRICAN >60 -- >60 -- >60 -- -- -- -- CR 1.05 -- 1.09 -- 0.89 -- -- -- -- GLU 163* < > 177* < > 163* < > 171* 145* 189* CA 8.9 -- 9.6 -- 9.6 -- -- -- -- MG 2.0 -- 2.3 -- 2.4 -- -- -- -- PO4 3.2 -- 3.0 -- 2.4 -- -- -- -- < > = values in this interval not displayed. Lab Results Component Value Date VBGEXCESS 2.9 02/22/2018 VBGPH 7.42 02/22/2018 VBGPCO2 43 02/22/2018 VBGPO2 58 (H) 02/22/2018 VBGHCO3 27 02/22/2018 NH4:11 UA 10 DIP POC No results found for this or any previous visit. URINE MICRO Results for orders placed or performed during the hospital encounter of 02/11/18 URINE, MICROSCOPIC EXAM Result Value Ref Range RED CELLS 3 0 - 3 /hpf WHITE CELLS 29 (H) 0 - 5 /hpf BACTERIA None None /hpf YEAST (LAB) None None /hpf SQUAMOUS EPITHELIAL Few (A) None /hpf MUCOUS Few (A) None /hpf TRICHOMONAS None None /hpf NON-SQUAMOUS EPITH None None /hpf HYALINE CASTS 0 0 - 2 /lpf GRANULAR CASTS 0 0 - 2 /lpf CELLULAR CASTS 0 <=0 /lpf TRIPLE P04 CRYSTALS None None /hpf CALCIUM OXALATE SEKOU None None /hpf URIC ACID CRYSTALS None None /hpf AMORPHOUS CRYSTALS None None /hpf Imaging Interpretation: CT head: Frothy secretions fill the paranasal sinuses, which may be seen in the setting of sinusitis .No acute intracranial abnormality. CXR: Single frontal view of the abdomen obtained. The tip of the feeding tube is in the gastric fundus, pointing to the left. Brief Summary: 62 yo female w PMH of HTN, HFpEF, T2DM, OLIVIA and obesity admitted for acute hypoxic respirat ory in the setting of metapneumovirus and B/L pneumonia requiring intubation. Assessment and Plan # Pneumonia # ARDS (adult respiratory distress syndrome) (HCC) #Pneumonia due to human metapneumovirus (hMPV) # OLIVIA S/p treatment for pneumonia with slowly improving respiratory status. Expect slow improveme nt espeicially given obesity. Continue oxygen to keep O2 > 92% -CPAP overnight -Budesonide BID -Duonebs PRN # Toxic metabolic encephalopathy: Head CT WNL limits, seems to be slowly improving, margina lly improved from yesterday, ammonia normal this morning. Etiology unclear, could be ICU de lirium, at this point remain cautiously optimistic that she will improve with time. -Replace dobhoff, failed bedside swallow #T2DM: Unclear home regimen -NPH 7u TID per endotool recs while on continues enteral feeds # Pyuria # Leukocytosis: Was having diarrhea in ICU per sister Latanya, will check C-diff. Will also tr eat for possible UTI based on pyuria -D. Diff -Will treat UTI w/ Keflex, DC if culture negative # HFpEF # HTN (hypertension): Net negative 10L throughout stay, challenging fluid status exam. No diuresis today but also no PO . On lisinopril which was held for NANCY, now stable on amlodipi ne. -Amlodipine 10mg -Carvedilol 18.75 BID -Holding lisinopril #Hypernatremia: Almost no intake after dobhoff removed and failed speech. Will replace dobh off as above and start free water flushes. -Will consider IVF if worsens but want to be careful in the setting of CHF. #NANCY #CKD (chronic kidney disease): Unclear what her baseline is but seems to be close to it. -AM BMP #SVT (supraventricular tachycardia) ([facility]): At OSH - none here. Switched from metop -> carv edilol for improved BP control. Stable Chronic Medical Issues # Severe obesity (BMI >= 40) (HCC) # Fibromyalgia: gabapentin 300TID -> 100 TID # Depression: Sertraline Diet: NPO DVT: Lovenox Code: Full Dispo: Expect prolonged hospital stay pending clearing of encephalopathy. WIll likely need oxygen at discharge. Fidencio Arreaga MD/MPH PGY-3, Family Medicine Pager:[phone] Associated attestation - Sierra Rizo DO - 02/22/2018 10:14 PM PDTI saw and evaluat ed the patient. I agree with the findings and the plan of care as documented in the resident s note. Please see my attestation from note on 02/21 for updates for today, additions, exceptions. Sierra Rizo DO Materials Development Engineerbinding end stitcher Clinical Hospitalist and Medicine Teaching Service Division of [facility] Medicine Pager [phone] Sergio Sanchez MD - 02/21/2018 10:49 AM PDTFormatting of this note might be different from e original. MICU ATTENDING PROGRESS NOTE Author: SERGIO SANCHEZ MD Attending Physician: Sergio Sanchez MD Patients Hospital Problem List: Active Hospital Problems 1) Pneumonia 2) ARDS (adult respiratory distress syndrome) (HCC) 3) Pneumonia due to human metapneumovirus (hMPV) 4) Severe obesity (BMI >= 40) (HCC) 5) Toxic metabolic encephalopathy 6) SVT (supraventricular tachycardia) (HCC) 7) CKD (chronic kidney disease) 8) HTN (hypertension) Assessment and Plan: I personally performed the marcano elements of the physical examination, and personally formul ated the assessment and plan with the MICU resident and the team. See resident note for irina cisse. Hospital day # 10. Sarah is a 62 y.o. female with ARDS from Metapneumovirus, remains intubated, has ICU neuopa thy. Neuro: Continues to improve every day, used own CPAP at night, decrease gabapentin to 10 0 mg TID Resp: patient on face mask, will try off BiPAP CVS: Hemodynamically stable ID: No issues. GI / Hepatology/ Nutrition: Speech eval is pending Renal / Electrolytes:No Issues Hem-Onc: leukocytosis will follow. Endo: Change to SQ insulin Code status/Family: Full code. Intermediate level fo care starting today. SERGIO SANCHEZ MD [facility] [address] [place] [address] I spent 31 min in critical care. Current Meds: Current Facility-Administered Medications Medication Dose Route Frequency acetaminophen (TYLENOL) oral suspension 1,000 mg 1,000 mg feeding tube TID PRN amLODIPine (NORVASC) tablet 10 mg 10 mg feeding tube DAILY atorvastatin (LIPITOR) tablet 10 mg 10 mg feeding tube DAILY bisacodyl (DULCOLAX) suppository 10 mg 10 mg rectal DAILY PRN budesonide (PULMICORT) 0.5 mg/2 mL nebulizer suspension 0.5 mg 0.5 mg inhalation BID carvedilol (COREG) tablet 18.75 mg 18.75 mg feeding tube BID chlorhexidine (PERIDEX) mouthwash 15 mL 15 mL oral Q6H dextrose 5%-NaCl 0.45% IV infusion 5-400 mL intravenous PRN dextrose 50 % in water IV 15-150 mL 15-150 mL intravenous PRN enoxaparin (LOVENOX) injection 40 mg 40 mg subcutaneous Q12H (Scheduled) famotidine (PEPCID) tablet 20 mg 20 mg feeding tube BID gabapentin (NEURONTIN) liquid 300 mg 300 mg feeding tube TID glucagon (GLUCAGEN) injection 1 mg 1 mg intramuscular PRN glucose chewable tablet 4-40 g 4-40 g oral PRN hydrALAZINE (APRESOLINE) injection 10 mg 10 mg intravenous Q4H PRN HYDROmorphone (DILAUDID) injection 0.5-1.5 mg 0.5-1.5 mg intravenous Q2H PRN influenza vaccine (FLUZONE) (PF) IM injection (age 3 years or greater) 0.5 mL 0.5 mL i ntramuscular Day of Discharge insulin regular bolus from continuous infusion 1-50 Units 1-50 Units intravenous NE EDED (BOLUS) insulin regular in NaCl 0.9% IV infusion (1 unit/mL) 0.1-50 Units/hr intravenous ROMARIO NUOUS ipratropium-albuterol (DUO-NEB) nebulizer solution 3 mL 3 mL inhalation Q6H PRN menthol-zinc oxide (CALAZIME) topical paste 0.2%-16.5% topical QID PRN nystatin (MYCOSTATIN) powder topical BID polyethylene glycol (MIRALAX) packet 34 g 34 g feeding tube TID PRN senna (SENOKOT) liquid 17.6 mg 10 mL feeding tube BID PRN sertraline (ZOLOFT) tablet 100 mg 100 mg oral DAILY white petrolatum-mineral oil-lanolin (LACRILUBE) 83-15 % ophthalmic ointment Both Eye s PRN Physical Exam: BP 155/64 | Pulse 84 | Temp 37 C (98.6 F) | RR 27 | Ht 1.68 m (5' 6.14") | Wt 148.8 kg (328 lb 0.7 oz) | SpO2 98% | BMI 52.72 kg/(m^2) Systolic (24hrs), Av , Min:125 , Max:169 Diastolic (24hrs), Av, Min:57, Max:94 Pulse Av.2 Min: 78 Max: 89 Temp Av.3 C (99.1 F) Min: 37 C (98.6 F) Max: 37.8 C (100 F) Resp Av.7 Min: 16 Max: 28 SpO2 Av.7 % Min: 91 % Max: 98 % Intake/Output Summary (Last 24 hours) at 02/21/18 1049 Last data filed at 02/21/18 1016 Gross per 24 hour Intake 188.5 ml Output 3010 ml Net -2821.5 ml Intake/Output Summary (since admission) at 02/11/18 0012 Last data filed at 02/21/18 1016 Gross for the last 10 days Intake 24372.87 ml Output 66699 ml Net since Admission -73303.13 ml Mechanical Ventilation [place] body weight: 59.6 kg (131 lb 7.2 oz) Adjusted ideal body weight: 95.3 kg (210 lb 1.4 oz) $ Ventilator Mode - Adult: Vent DC'd and Patient Extubated (02/20/18 1303) Set VT: 270 ml (02/15/18808) , Ordered mL/K mL/Kg (02/19/18 0231) Set Rate: 4 bpm (02/20/182031) -- Total Rate: 22 bpm (02/20/182031) VE: 12.1 L/MIN (02/20/182031) PEEP/CPAP: 5 cm H2O (02/20/18 0845) Current FIO2 (%): 30 fraction of O2 (02/21/18 0000) SpO2: 98 % (02/21/18 1000) Last PaO2/FiO2 ratio: Plateau: Plat Press: 13 cm H2O (02/15/18808) Driving Pressure: Driving Pressure (DP): 5 cm H2O (02/15/18808) PAO2/FIO2 RATIO Date/Time Value Ref Range Status 02/13/2018 09:39 PM 158 (L) >300 mmHg Final 02/13/2018 11:05 AM 198 (L) >300 mmHg Final 02/13/2018 05:29 AM 148 (L) >300 mmHg Final 02/13/2018 01:34 AM 134 (L) >300 mmHg Final 02/12/2018 07:11 PM 108 (L) >300 mmHg Final 02/12/2018 10:24 AM 160 (L) >300 mmHg Final 02/12/2018 06:31 AM 175 (L) >300 mmHg Final Lab Results Component Value Date PH 7.45 (H) 02/14/2018 PCO2 44 (H) 02/14/2018 PO2 64 (L) 02/14/2018 HCO3 30 (H) 02/14/2018 [id number] 94.2 02/14/2018 FIO2 0.40 02/13/2018 [id number] 158 (L) 02/13/2018 Lab Results Component Value Date VBGEXCESS 1.6 02/21/2018 VBGPH 7.38 02/21/2018 VBGPCO2 46 02/21/2018 VBGPO2 49 02/21/2018 VBGHCO3 27 02/21/2018 Up to Last 5 ABGs in 72 hours: No results for input(s): PH, PCO2, PO2, HCO3, XJESO1MYC, V3EMXYEG, J8ZDCKTUX, FIO2 in the l ast 72 hours. Lab Results Component Value Date PH 7.45 (H) 02/14/2018 PH 7.46 (H) 02/13/2018 PH 7.33 (L) 02/13/2018 PH 7.34 (L) 02/13/2018 PH 7.34 (L) 02/13/2018 PH 7.35 (L) 02/12/2018 PCO2 44 (H) 02/14/2018 PCO2 42 02/13/2018 PCO2 56 (H) 02/13/2018 PCO2 55 (H) 02/13/2018 PCO2 56 (H) 02/13/2018 PCO2 54 (H) 02/12/2018 PO2 64 (L) 02/14/2018 PO2 63 (L) 02/13/2018 PO2 79 02/13/2018 PO2 74 02/13/2018 PO2 67 (L) 02/13/2018 PO2 65 (L) 02/12/2018 HCO3 30 (H) 02/14/2018 HCO3 30 (H) 02/13/2018 HCO3 29 (H) 02/13/2018 HCO3 29 (H) 02/13/2018 HCO3 29 (H) 02/13/2018 HCO3 29 (H) 02/12/2018 E4FETHHA 94.2 02/14/2018 L6ZKUEUT 93.2 02/13/2018 F8FUPJPM 96.3 02/13/2018 I2KHIPOM 95.3 02/13/2018 B9OZNNRL 94.0 02/13/2018 A2CZMQBY 91.6 (L) 02/12/2018 FIO2 0.40 02/13/2018 FIO2 0.40 02/13/2018 FIO2 0.50 02/13/2018 FIO2 0.50 02/13/2018 FIO2 0.60 02/12/2018 FIO2 0.40 02/12/2018 [id number] 158 (L) 02/13/2018 XYL6FXL0 198 (L) 02/13/2018 ZUZ2BMU8 148 (L) 02/13/2018 TZW9DDU9 134 (L) 02/13/2018 LPB7VMK5 108 (L) 02/12/2018 SLE8QPA5 160 (L) 02/12/2018 Recent Labs 02/11/18 0036 02/19/18 0317 02/20/18 0503 02/21/18 0430 02/21/18 0737 02/21/18 0908 02/21/18 1016 NA 135* < > 144 -- 142 -- 145 -- -- -- -- K 4.5 < > 3.4 -- 4.0 -- 4.2 -- -- -- -- CL 103 < > 111* -- 110* -- 110* -- -- -- -- BICARB 23 < > 27 -- 24 -- 26 -- -- -- -- BUN 29* < > 48* -- 49* -- 49* -- -- -- -- CR 1.23* < > 1.09 -- 1.05 -- 1.09 -- -- -- -- GLU 158* < > 147* < > 163* < > 177* < > 188* 184* 184* CA 7.6* < > 8.5* -- 8.9 -- 9.6 -- -- -- -- AST 40 -- -- -- -- -- -- -- -- -- -- ALT 22 -- -- -- -- -- -- -- -- -- -- AP 59 -- -- -- -- -- -- -- -- -- -- TBILI 0.5 -- -- -- -- -- -- -- -- -- -- TP 6.4 -- -- -- -- -- -- -- -- -- -- ALB 2.6* < > 2.3* -- 2.4* -- 2.7* -- -- -- -- ANIONGAP 9 < > 6 -- 8 -- 9 -- -- -- -- ANIONALBCOR 12* < > 10 -- 12* -- 12* -- -- -- -- < > = values in this interval not displayed. CBC with diff last 72 hours (or 3 results) - Refreshable Recent Labs 02/20/18 0453 02/21/18 0430 WBC 17.96* 20.38* HB 12.9 13.3 HCT 41.6 43.1 PLT 351 394 NEUTROPERC 78.8* 77.9* LYMPHPERC 11.5* 12.2* MONOPERC 7.0 7.3 BASOPERC 0.6 0.5 EOSPERC 1.3 1.5 No results found for: APTT, FIBRINOGEN No results found for: [id number] No results found for: URICACID No results found for: FREET4, TSH, TPOAB, THYROGLOB, THYROGLOBAB, N5EVLNA No results found for: IRON, IRONBINDCAP, SATTRANSFERR, FERRITIN No results found for: CK Lab Results Component Value Date TROPONIN <0.02 02/11/2018 Lab Results Component Value Date NTPROBNP 2,080 02/11/2018 No results found for: LIPASE No results found for: AMYLASEPLAS Lab Results Component Value Date VANCOTROUGH 29.3 (H) 02/12/2018 Lab Results Component Value Date LACTICACID 1.1 02/11/2018 Lab Results Component Value Date MG 2.3 02/21/2018 MG 2.0 02/20/2018 MG 2.1 02/19/2018 MG 2.7 (H) 02/17/2018 MG 2.9 (H) 02/16/2018 Lab Results Component Value Date PO4 3.0 02/21/2018 PO4 3.2 02/20/2018 PO4 3.0 02/19/2018 PO4 2.8 02/17/2018 PO4 3.6 02/16/2018 Lab Results Component Value Date CR 1.09 02/21/2018 CR 1.05 02/20/2018 CR 1.09 02/19/2018 CR 1.14 (H) 02/18/2018 CR 1.04 02/17/2018 No results found for: URICACID No results found for: FK506 No results found for: INRPT Lab Results Lab Test Name Results Date/Time QTCB 497 02/14/18 QTCB 468 02/11/18 QTCB 474 02/11/18 Results for orders placed or performed during the hospital encounter of 02/11/18 12 LEAD ECG Result Value Ref Range VENTRICULAR RATE 123 bpm ATRIAL RATE 57 ms P-R INTERVAL 163 ms P AXIS 44 deg QRS DURATION 77 ms QT 347 ms QTCB 497 ms R AXIS 268 deg T AXIS 51 deg ECG IMPRESSION Sinus tachycardia ECG IMPRESSION Atrial premature complexes with aberrant conduction ECG IMPRESSION Low voltage, precordial leads ECG IMPRESSION Anteroseptal infarct, old- ABNORMAL ECG - ECG IMPRESSION Electronically signed by: SHAHAB RENNER 02-16-2018 08:21:03 No results found for: RVSP No results found for: URINECOLOR, URAPPEARANCE, URINELE, URINENITRITE, URINEUROBILI, URINEP ROTEIN, URINEPH, URINEBLOOD, URSPECGRAV, URINEKETONES, URINEBILI, URINEGLUCOSE No results found for: URINEAMPPHOS, URINEBACTERI, URINECAOX, URINECAST, URINECLUE, URINEGRA NCAS, URINEHYALINE, URINEMUCOUS, URINEEPITH, URINEREDCELL, URINESQEPI, URINEPO4, URINEWBC, U RINEYEAST X-ray Chest 1 View Result Date: 02/13/2018 EXAM: CHEST 1 VIEW HISTORY: Hypoxemia. Evaluate endotracheal tube. COMPARISON: 02/12/18, 02/11/18 FINDINGS: The endotracheal tube is unchanged in position, terminating 5 cm above the jim. Enteric tube courses below the diaphragm and terminates outside the field of view. Evaluation of the lungs is somewhat limited due to large amount of overlying soft tissue. There is persistent left lower lobe retrocardiac consolidation, overall similar compared wit h 02/11/18. There is right infrahilar consolidative opacity, relatively similar to prior. Pa tchy opacity in the right upper lobe has decreased in conspicuity. No large pleural effusio n or pneumothorax is evident. The cardiomediastinal silhouette is stable, given differences in technique. IMPRESSION: Dense retrocardiac opacification and nodular right infrahilar opacities most suggestive of aspiration or pneumonia. I have personally reviewed the images and, if necessary, edited the report. I agree with t he report as now presented. X-ray Portable Chest 1 View Result Date: 02/15/2018 EXAM: ME CHEST 1 VIEW 02/15/18 06:12:20 HISTORY: Worsening hypoxia COMPARISON: Yesterday FINDINGS: The support equipment is unchanged. The cardiomediastinal silhouette is stable. Right lung groundglass is unchanged. There is minimally improved left lower lobe atelectasis. There is no pneumothorax. IMPRESSION: Minimal improvement left lower lobe consolidation likely combination of atelectasis and pos sible aspiration. I have personally reviewed the images and, if necessary, edited the report. I agree with t jhonathan report as now presented. X-ray Portable Chest 1 View Result Date: 02/14/2018 EXAM: ME CHEST 1 VIEW HISTORY: Fever of unknown origin. COMPARISON: 02/13/2018. FINDINGS: Endotracheal tube tip terminates 4 cm above the jim. Enteric tube courses below the diap hragm, out of the iucnh-ci-anfe. Cardiomediastinal contour is stable. Increased, dense retro cardiac consolidation. Right infrahilar opacity and right lung groundglass is not significan tly changed. No large pleural effusion or pneumothorax. IMPRESSION: Increased dense retrocardiac and stable infrahilar opacification, most likely aspiration or developing pneumonia. I have personally reviewed the images and, if necessary, edited the report. I agree with t jhonathan report as now presented. X-ray Portable Chest 1 View Result Date: 02/12/2018 STUDY: ME CHEST 1 VIEW HISTORY: Endotracheal tube placement. COMPARISON: February 11, 2018 FINDINGS: The patient is imaged in prone position, limiting assessment of the lungs. The endotracheal tube terminates at the level of the clavicles, approximately 6.7 cm above the jim. The t ransesophageal sump tube terminates off the disfe-st-fjtu. Lung opacities are mostly obscure d. IMPRESSION: Endotracheal tube terminates in the high trachea, 6.7 cm above the jim. I have personally reviewed the images and, if necessary, edited the report. I agree with t jhonathan report as now presented. X-ray Portable Chest 1 View Result Date: 02/11/2018 STUDY: Portable chest radiograph HISTORY: Intubated COMPARISON: 02/10/2018 FINDINGS: Endotracheal tube tip terminates approximately 5 cm above the jim. An enteric tube trave ls caudally beyond the ploch-qx-resz. Low lung volumes. Unchanged appearance of the cardiome diastinal silhouette which is partially obscured by the bilateral diffuse airspace opacities . No large pneumothorax. Probable small bilateral pleural effusions. The distribution of the air space opacities have not significantly changed. No acute osseous abnormalities. IMPRESSION: Redemonstration of diffuse bilateral extensive patchy airspace opacities. Enteric tube tip terminates approximately 5 cm above the jim. I have personally reviewed the images and, if necessary, edited the report. I agree with t he report as now presented. No results found for: CTCHEST No results found for: ABD No results found for: CTHEAD CULTURE RESULT Date Value Ref Range Status 02/14/2018 Final Final Report:No Bacteria or Yeast isolated at 5 days. 02/14/2018 Final Final Report:No Bacteria or Yeast isolated at 5 days. 02/11/2018 Final Final Report:No Bacteria or Yeast isolated at 5 days. 02/11/2018 Final Final Report:No Bacteria or Yeast isolated at 5 days. Last Drug Screen: No results found for: AMPHETAMINES, METHAMPHETAM, BARBITURATE, BENZO, CA NNABIS, COCAINE, ETOH, ETHANOL, OPIATE, ORGBASES, OXYCODONE, METHADONE Van Saucedo MD - 0 02/21/2018 6:03 AM PDT [facility] MEDICAL ICU - PROGRESS NOTE Hospital Day: 10 | ICU Day: 11 ID/CC: Sarah Reeves is a 62 y.o. woman admitted to the MICU for acute hypoxemic respirato ry failure in setting of moderate ARDS 2/2 metapneumovirus and suspected bilateral pneumonia . Consultants: Nutrition 24 Hour Events: -Extubated at ~1300 yesterday. -Stayed on BiPAP --> home CPAP overnight. -60 mg IV lasix x1. -Remained afebrile overnight. SBPs 130s-150s. -BiPAP initially 40-50% FiO2 --> 30% FiO2 prior to switching to CPAP. Subjective: -Pt off sedation and shakes head yes or no. Per nursing, did at one point get [facility]. -This am, pt not wanting to verbalize. -Denies fever, chills, chest pain, dyspnea, abd pain, nausea, vomiting. Vital Signs: Cuff BP 153/74 (02/21/18 0600) | BP Min: 125/57 Max: 158/72 Cuff MAP 95 mmHg (04/12/18 0600) | BP Mean Min: 77 mmHg Max: 112 mmHg Art Line BP | No Data Recorded Art Line MAP | No Data Recorded HR 86 (02/21/18 06) | Pulse Min: 78 Max: 93 | Cardiac Rhythm: PVCs;Normal Sinus Rhythm (02/21/18 040) Temp 37.2 C (99 F) (02/21/18 0400) | Temp Min: 37.1 C (98.8 F) Max: 37.8 C (100 F) RR 18 (02/21/18 06) | Resp Min: 16 Max: 28 SpO2 93 % (02/21/18599) | SpO2 Min: 91 % Max: 97 % O2 Device CPAP (02/21/18 040) | Vent DC'd and Patient Extubated (02/20/18 1303) Ventilator Settings PSV: PSV: 10 cm H2O PEEP Set: 5 cm H2O RR: 4 bpm FiO2: 30 fraction of O2 Observed Ventilation Vex: Mandatory 350 ml | Spontaneous 470 ml [place] BW: 59.6 kg RR: 22 bpm Minute Ventilation: 12.1 L/MIN SpO2: 93 % Ventilator Diagnostics (Past 24 hrs) Pplat | Driving Pressure Total PEEP | AutoPEEP SBT Assessed Yes (02/20/18 0743) | SBT Outcome Pass SBT, ready for extubation (02/20/18 084 5) Cam/RASS Flowsheet Row Most Recent Value CAM (Confusion Assessment Method) Positive (probable delirium) RASS Scale 0 CPOT 0 (02/20/18 1807) Intake/Output Summary (Last 24 hours) at 02/21/18 0712 Last data filed at 02/21/18 0600 Gross per 24 hour Intake 425.63 ml Output 2945 ml Net -2519.37 ml Intake/Output Summary (since admission) at 02/11/18 0012 Last data filed at 02/21/18 0600 Gross for the last 10 days Intake 73429.1 ml Output 35943 ml Net since Admission -40142.9 ml BMI: 57.5 Weights 156 kg (343 lb 14.7 oz) (02/17/18 1100) 162 kg (357 lb 2.3 oz) (02/11/18 0054) Admit Wt: 162 kg (357 lb 2.3 oz) Physical Exam: GENERAL: Obese female, now extubated and off sedation. CARDIAC: RRR. No m/r/g. RESPIRATORY: Diminished breath sounds bilaterally. ABDOMEN: soft, nontender, obese abd. No rebound/guarding. Normoactive bowel sounds. EXTREMITIES: trace/1+ pitting edema to BLE. NEUROLOGICAL: off sedation, arouses to voice. Able to track and follow commands, but still very weak. Able to wiggle bilateral toes. Able to move bilateral upper extremities. Alert en ough to answer appropriately to yes/no questions. SKIN: Skin normal color, texture and turgor with no lesions or eruptions. Laboratories: Recent Labs 02/20/18 1449 02/20/18 1645 02/21/18 0419 VBGPH 7.33* 7.34* 7.38 VBGPCO2 54* 52* 46 VBGHCO3 27 27 27 Recent Labs 02/20/18 0453 02/21/18 0430 WBC 17.96* 20.38* HB 12.9 13.3 HCT 41.6 43.1 MCV 89.8 89.8 PLT 351 394 NEUTROPHILCO 14.15* 15.87* LYMPHSABS 2.07 2.49 MONOCYTECO 1.26* 1.49* EOSCO 0.23 0.31 BASOPHILCO 0.11* 0.10 IMGRANABS 0.14* 0.12* No results for input(s): INRPT, APTT, FIBRINOGEN in the last 720 hours. Recent Labs 02/19/1831602/20/18 0503 02/21/18 0430 NA 144 142 145 K 3.4 4.0 4.2 CL 111* 110* 110* BICARB 27 24 26 BUN 48* 49* 49* CR 1.09 1.05 1.09 CA 8.5* 8.9 9.6 MG 2.1 2.0 2.3 PO4 3.0 3.2 3.0 ANIONGAP 6 8 9 Recent Labs 02/20/18 2354 02/21/18 0108 02/21/18 0200 02/21/18 0304 02/21/18 0418 02/21/18 0430 02/21/18 0522 02/21/18 0628 GLU 160* 166* 155* 162* 146* 177* 195* 198* Recent Labs 02/19/18 0317 02/20/18 0503 02/21/18 0430 ALB 2.3* 2.4* 2.7* Lab Orders - In Process (Through next 24h) Start Ordered 02/14/18 0845 CULTURE, BLOOD BACTI & YEAST ONCE 02/14/18 0836 02/14/18 0845 CULTURE, BLOOD BACTI & YEAST ONCE 02/14/18 0836 Microbiology: Sputum Cx from ETT (02/14/2018): 1+ oral francisco. Rare squams; no PMNs, no orgs. BCx (02/14/2018): NGTD x2 at 5 days. RVP (02/11/2018): positive metanpneumovirus. BCx (02/11/2018): NGTD Urine S. Pneumonia Ag (02/11/2018): negative. Urine Legionella Ag (02/11/2018): negative. Sputum Cx from ETT (02/11/2018): NGTD. No squams, mod PMNs, no orgs. MSSA/MRSA Nares (02/11/2018):neg. Imaging: CXR 02/15/2018: Minimal improvement left lower lobe consolidation likely combination of atelectasis and pos sible aspiration. CXR 02/14/2018: Increased dense retrocardiac and stable infrahilar opacification, most likely aspiration or developing pneumonia. CXR 02/13/2018: obtained post-supination Dense retrocardiac opacification and nodular right infrahilar opacities most suggestive of aspiration or pneumonia. CXR 02/12/2018: Endotracheal tube terminates in the high trachea, 6.7 cm above the jim. Abd XR Feeding Tube Eval 02/12/2018: Of note, the patient is prone, and images have not been corrected. An orogastric tube is id entified terminating below the diaphragm likely within the body of the stomach. CXR 02/10/2018: 1. Redemonstration of diffuse bilateral extensive patchy airspace opacities. 2. Enteric tube tip terminates approximately 5 cm above the jim. EKG/Echocardiogram: none. Current Facility-Administered Medications Medication Dose Route Frequency Last Rate insulin regular in NaCl 0.9% IV infusion (1 unit/mL) 0.1-50 Units/hr intravenous ROMARIO NUOUS 0.1 Units/hr (02/21/18 0628) Current Facility-Administered Medications Medication Dose Route Frequency Last Rate amLODIPine (NORVASC) tablet 10 mg 10 mg feeding tube DAILY atorvastatin (LIPITOR) tablet 10 mg 10 mg feeding tube DAILY budesonide (PULMICORT) 0.5 mg/2 mL nebulizer suspension 0.5 mg 0.5 mg inhalation BID carvedilol (COREG) tablet 18.75 mg 18.75 mg feeding tube BID chlorhexidine (PERIDEX) mouthwash 15 mL 15 mL oral Q6H enoxaparin (LOVENOX) injection 40 mg 40 mg subcutaneous Q12H (Scheduled) famotidine (PEPCID) tablet 20 mg 20 mg feeding tube BID gabapentin (NEURONTIN) liquid 300 mg 300 mg feeding tube TID nystatin (MYCOSTATIN) powder topical BID probiotic kefir (KEYONNA'S KEFIR) oral BID sertraline (ZOLOFT) tablet 100 mg 100 mg oral DAILY Current Facility-Administered Medications Medication Dose Route Frequency Last Rate acetaminophen (TYLENOL) oral suspension 1,000 mg 1,000 mg feeding tube TID PRN bisacodyl (DULCOLAX) suppository 10 mg 10 mg rectal DAILY PRN dextrose 5%-NaCl 0.45% IV infusion 5-400 mL intravenous PRN dextrose 50 % in water IV 15-150 mL 15-150 mL intravenous PRN glucagon (GLUCAGEN) injection 1 mg 1 mg intramuscular PRN glucose chewable tablet 4-40 g 4-40 g oral PRN hydrALAZINE (APRESOLINE) injection 10 mg 10 mg intravenous Q4H PRN HYDROmorphone (DILAUDID) injection 0.5-1.5 mg 0.5-1.5 mg intravenous Q2H PRN influenza vaccine (FLUZONE) (PF) IM injection (age 3 years or greater) 0.5 mL 0.5 mL i ntramuscular Day of Discharge insulin regular bolus from continuous infusion 1-50 Units 1-50 Units intravenous NE EDED (BOLUS) ipratropium-albuterol (DUO-NEB) nebulizer solution 3 mL 3 mL inhalation Q6H PRN menthol-zinc oxide (CALAZIME) topical paste 0.2%-16.5% topical QID PRN polyethylene glycol (MIRALAX) packet 34 g 34 g feeding tube TID PRN senna (SENOKOT) liquid 17.6 mg 10 mL feeding tube BID PRN white petrolatum-mineral oil-lanolin (LACRILUBE) 83-15 % ophthalmic ointment Both Eye s PRN Assessment & Plan: Sarah Reeves is a 62 y.o. woman admitted to the MICU for acute hypoxemic respiratory fail ure in setting of moderate ARDS 2/2 metapneumovirus and suspected bilateral pneumonia. Impro ving from respiratory standpoint, having passed SBT since 02/17, with gradual improvement in mental status since then. Neurologic #Sedation -None required as pt extubated as of 02/20. #Chronic pain - Oxycodone 2.5-5 mg Q4H prn 1st line pain overnight. - Hydromorphone 0.2-0.5 mg IV Q2H PRN overnight. - CPOT goal 0 to +1. - Decreasegabapentin 300 mg --> 100 mg TID in hopes will improve p t's engagement with other staff. Cardiovascular #Paroxysmal SVT, Resolved Patient had multiple asymptomatic runs of SVT at the outside hospital which subsided after starting metoprolol 25 mg/bid. Transitioned to coreg on 02/16 for BP control. Pt's episodes have since resolved since starting carvedilol on 02/15. - Carvedilol to 18.75 mg PO BID. #HTN #HFpEF Normotensive on arrival with progressive rise in BP likely due to hypervolemia and improvin g sepsis. Last TTE 10/2017 showed LVEF 65-70% with grade 1 diastolic dysfunction with norm al RV size and function. - Amlodipine 10 mg QDAY (started 02/14). - Carvedilol to 18.75 mg PO BID. - Hold off diuresis. Goal net even. Respiratory #Acute hypoxemic hypercapnic respiratory failure requiring intubation #ARDS moderate #Metapneumovirus Etiologies: metapneumovirus +/- superimposed bacterial pneumonia with component of hypervol emia from HFpEF in setting of chronic lung disease (moderate asthma). Empirically s/p oselta mivir x 5d course at OSH then treated with IV CTX + azithro x 3d (02/08-02/10) and vancomyci n added 02/10 at [facility] STALLION MANAGER. Pt already with poor baseline pulm function in setting of OLIVIA. Uri ne S. pneumo and legionella ag neg. MRSA nares neg. Completed 7 day abx course (01/12-02/14) . Blood Cx and sputum cx negative. Overall significantly improving PS needs. Has been passin g SBT daily since 02/17, with mentation being largest barrier to extubation. Extubated to Bi PAP on 02/20 (FiO2 from 50% --> 30%) and then home CPAP settings at night. - Now on oxymask, satting well. See how she tolerates without BiPAP but may need. - Home CPAP at night. - Monitor. #OLIVIA - As outlined above. #Moderate persistent bronchial asthma - Home budesonide BID - Duonebs Q4H rajeev. GI / Nutrition #OG tube, Removed 02/20 - F/u WRINGER OPERATOR consult on 02/21 prior to re-starting diet. / Renal No Active Issues. Infectious Disease See respiratory Hematology / Oncology # Leukocytosis: Unclear etiology but likely reactive 2/2 stress vs. Hemoconcentration (sea as net neg 2 lit ers over past 24h). Unlikely 2/2 infection (although did previously think about VAP), becaus e of improved opacity on CXR 02/15, remaining afebrile, and no hypotension to suggest sepsis . - Monitor for e/o sepsis. Endocrine #DMII (Last A1c was 10.6mg/dl per outside hospital records): - Cont IV insulin via endotool. - Anticipate transitioning to SC insulin once resp plan stable PO regimen in place. Dispo -Intermediate level of care as of 02/21/2018. -Ideally would have bed available for overnight. However, if not likely to happen, already communicated with tank charger, Leodan to possibly have bed coordinator start looking for beds at [facility] (pt lives in [place], so this is closest [facility] affiliation to that area). RESOLVED/CHRONIC ISSUES: #Non-oligouric NANCY on CKD stage III Baseline Cr 1.3. Etiology: pre-renal in setting of aggressive diuresis from 02/11-02/12. -IV diuresis 02/17. SCr 1.0 -> 1.14. #HLD - Continue atorvastatin 10 mg QDAY. #Depression - Continue sertraline 100 mg QDAY Consultants:Nutrition Feeding: NPO. Awaiting WRINGER OPERATOR eval 02/21 prior to starting diet. Analgesia: Oxycodone, Hydromorphone PRN Sedation:None. Rass goal 0. Thromboprophylaxis: LMWH SC Head of Bed: > 30 Ulcer Prophylaxis: H2 shane Glycemic control: IV insulin via Endotool. MobilityGoal:Passive ROM Lines/Tubes/Drains/Airways: PIV x2, [place], Rectal tube. -Plan to D/C Mendiola and rectal tube today Code Status Code Status Full Code Surrogate Decision Maker Documentation: Surrogate Decision Maker Primary Surrogate Decision Maker Latanya Gunter Sister [phone] Secondary Surrogate Decision Maker Mr. Reeves This patient was staffed with Dr. Sanchez, attending physician. VAN PALMA MD Template created by TABITHA 2017 Gely Thomas MD - 02/20/2018 10:50 PM PDT MICU Attg. Progress Note Overnight Events: extubated earlier today by day team. Did have a little time off bipap thi s afternoon and did ok. Back on bipap tonight. Hospital Day: 9 Code Status: FULL A/P: 62F with acute hypoxemic respiratory failure secondary to ARDS secondary to metapneumo virus, now past the acute phase and in recovery. Recovering ICU weakness. Now extubated but on BIPAP. Starting to have stronger cough. Neuro: ICU weakness improving/resolving. Moving all 4, awake, alert, follows commands. Is s till weak. PT/OT consult! Mobility. CV: Hemodynamically stable I/O goal negative. 1-2L Pulm: Patient with recovery from ARDS. Is on home CPAP, but right now requiring BIPAP 15/6 . Will leave on bipap tonight and see how she does off in the am. NPO for now. Cannot assess swallow. ID: metapneumovirus induced ards. Recovering. Renal: CKD, Cr stable.1.05 I examined the patient myself. I have read and agree with the plan as outlined in the sanchezi ottoniel note, except as otherwise noted above. Critical Care Time = 33 min exclusive of proced ures. Last Vitals: BP 152/61 | Pulse 85 | Temp 37.8 C (100 F) | RR 22 | Ht 1.68 m (5' 6.14") | Wt 156 kg (343 lb 14.7 oz) | SpO2 97% | BMI 55.27 kg/(m^2) 24 Hour Vital Min/Max: Systolic (24hrs), Av , Min:125 , Max:169 Diastolic (24hrs), Av, Min:55, Max:78 Pulse Min: 78 Max: 99 Temp Min: 37.1 C (98.8 F) Max: 37.8 C (100 F) Resp Min: 16 Max: 30 SpO2 Min: 92 % Max: 97 % Intake/Output Summary (Last 24 hours) at 02/20/182249 Last data filed at 02/20/182199 Gross per 24 hour Intake 1584.44 ml Output 4115 ml Net -2530.56 ml Mechanical Ventilation $ Ventilator Mode - Adult: Vent DC'd and Patient Extubated (02/20/18 1303) Set VT: 270 ml (02/15/18808) , Ordered mL/K mL/Kg (02/19/18 023) Set Rate: 4 bpm (02/20/182031) -- Total Rate: 22 bpm (02/20/182031) VE: 12.1 L/MIN (02/20/182031) PEEP/CPAP: 5 cm H2O (02/20/18844) Current FIO2 (%): 30 fraction of O2 (02/20/182031) SpO2: 97 % (02/20/182199) Last PaO2/FiO2 ratio: Plateau: Plat Press: 13 cm H2O (02/15/18808) Driving Pressure: Driving Pressure (DP): 5 cm H2O (02/15/18808) Current Facility-Administered Medications Medication Dose Route Frequency Provider Last Rate Last Dose acetaminophen (TYLENOL) oral suspension 1,000 mg 1,000 mg feeding tube TID PRN Angel Renee MD 1,000 mg at 02/19/18 1601 amLODIPine (NORVASC) tablet 10 mg 10 mg feeding tube DAILY Van Palma MD 10 m g at 02/20/18 0903 atorvastatin (LIPITOR) tablet 10 mg 10 mg feeding tube DAILY Fercho Carrasco MD 1 0 mg at 02/20/18 0904 bisacodyl (DULCOLAX) suppository 10 mg 10 mg rectal DAILY PRN Leif G Saturnino, MD budesonide (PULMICORT) 0.5 mg/2 mL nebulizer suspension 0.5 mg 0.5 mg inhalation BID Katelyn Carrasco MD 0.5 mg at 02/20/182026 carvedilol (COREG) tablet 18.75 mg 18.75 mg feeding tube BID Leif Matamoros MD 18. 75 mg at 02/20/18 0904 chlorhexidine (PERIDEX) mouthwash 15 mL 15 mL oral Q6H Constanza Byrd MD 15 mL at 09/29 1600 dextrose 5%-NaCl 0.45% IV infusion 5-400 mL intravenous PRN Will Mcclure MD dextrose 50 % in water IV 15-150 mL 15-150 mL intravenous PRN Katelyn Rosas enoxaparin (LOVENOX) injection 40 mg 40 mg subcutaneous Q12H (Scheduled) Will Mcclure MD 40 mg at 02/20/186 famotidine (PEPCID) tablet 20 mg 20 mg feeding tube BID Constanza Byrd MD 20 mg at 0904 gabapentin (NEURONTIN) liquid 300 mg 300 mg feeding tube TID Van Palma MD 30 0 mg at 02/20/18 0933 glucagon (GLUCAGEN) injection 1 mg 1 mg intramuscular PRN Danette Cole MD glucose chewable tablet 4-40 g 4-40 g oral PRN Will Mcclure MD hydrALAZINE (APRESOLINE) injection 10 mg 10 mg intravenous Q4H PRN Marcela Resendiz MD 10 mg at 02/17/18 0810 HYDROmorphone (DILAUDID) injection 0.5-1.5 mg 0.5-1.5 mg intravenous Q2H PRN Constanza huntley MD influenza vaccine (FLUZONE) (PF) IM injection (age 3 years or greater) 0.5 mL 0.5 mL i ntramuscular Day of Discharge Van Palma MD insulin regular bolus from continuous infusion 1-50 Units 1-50 Units intravenous NE EDED (BOLUS) Will Mcclure MD insulin regular in NaCl 0.9% IV infusion (1 unit/mL) 0.1-50 Units/hr intravenous ROMARIO NUOUS Will Mcclure MD 2.6 mL/hr at 02/20/182145 2.6 Units/hr at 02/20/18 214 ipratropium-albuterol (DUO-NEB) nebulizer solution 3 mL 3 mL inhalation Q6H PRN Sergio Sanchez MD menthol-zinc oxide (CALAZIME) topical paste 0.2%-16.5% topical QID PRN Angel Renee MD nystatin (MYCOSTATIN) powder topical BID Fercho Carrasco MD polyethylene glycol (MIRALAX) packet 34 g 34 g feeding tube TID PRN Katelyn Matias kefir (KEYONNA'S KEFIR) oral BID aVn Palma MD senna (SENOKOT) liquid 17.6 mg 10 mL feeding tube BID PRN Van Palma MD sertraline (ZOLOFT) tablet 100 mg 100 mg oral DAILY Van Palma MD 100 mg at 0 02/20/18 0904 white petrolatum-mineral oil-lanolin (LACRILUBE) 83-15 % ophthalmic ointment Both Eye s PRN Van Palma MD Chemistries: Last 72 Hours (or 3 results): Recent Labs 02/18/18 0343 02/19/18 0317 02/20/18 0503 02/20/18 1932 02/20/18204102/20/182144 NA 144 -- 144 -- 142 -- -- -- -- K 3.8 -- 3.4 -- 4.0 -- -- -- -- CL 111* -- 111* -- 110* -- -- -- -- BICARB 26 -- 27 -- 24 -- -- -- -- BUN 53* -- 48* -- 49* -- -- -- -- CR 1.14* -- 1.09 -- 1.05 -- -- -- -- GLU 148* < > 147* < > 163* < > 165* 168* 180* CA 8.9 -- 8.5* -- 8.9 -- -- -- -- MG -- -- 2.1 -- 2.0 -- -- -- -- PO4 -- -- 3.0 -- 3.2 -- -- -- -- < > = values in this interval not displayed. CBC with diff last 72 hours (or 3 results) Recent Labs 02/18/18 0343 02/20/18 0453 WBC 11.86* 17.96* HB 12.4 12.9 HCT 40.6 41.6 PLT 314 351 NEUTROPERC -- 78.8* LYMPHPERC -- 11.5* MONOPERC -- 7.0 BASOPERC -- 0.6 EOSPERC -- 1.3 Liver Tests: Last 72 hours (or 3 results) Recent Labs 02/19/18 0317 02/20/18 0503 ALB 2.3* 2.4* Up to Last 5 ABGs in 72 hours: No results for input(s): PH, PCO2, PO2, HCO3, EOGHE9AAI, W0QINYNN, Q6COQCQUB, FIO2 in the l ast 72 hours. No results found for: INRPT @lastlactase3@ CBG Result Av Min: 127 Max: 184 LastCBG Intervention: Medication given (2.6) (02/20/182145) Last CBG's POC Lab Results Component Value Date GLU 180 (H) 02/20/2018 GLU 168 (H) 02/20/2018 GLU 165 (H) 02/20/2018 No results found for: CXR Sergio Ta MD - 02/20/2018 10:15 AM PDT MICU ATTENDING PROGRESS NOTE Author: SERGIO SANCHEZ MD Attending Physician: Sergio Sanchez MD Patients Hospital Problem List: Active Hospital Problems 1) Pneumonia 2) ARDS (adult respiratory distress syndrome) (HCC) 3) Pneumonia due to human metapneumovirus (hMPV) 4) Severe obesity (BMI >= 40) (HCC) 5) Toxic metabolic encephalopathy 6) SVT (supraventricular tachycardia) (HCC) 7) CKD (chronic kidney disease) 8) HTN (hypertension) Assessment and Plan: I personally performed the marcano elements of the physical examination, and personally formula lisa the assessment and plan with the MICU resident and the team. See resident note for detai ls. Hospital day # 9. Sarah is a 62 y.o. female with ARDS from Metapneumovirus, remains intubated, has ICU neuopa thy. Neuro: Patient more alert but not following commands. Resp: Tolerating PSV CVS: Continue Amlodipine, ID: Continue to watch leukocytosis GI / Hepatology/ Nutrition: Hold tube feeding for possible extubation today Renal / Electrolytes: I/O goal -1000 ml Hem-Onc: leucocytosis unclear source, Endo: On Insulin Code status/Family: Full code. SERGIO SANCHEZ MD [facility] [address] [place] [address] I spent 32 min in critical care. Current Meds: Current Facility-Administered Medications Medication Dose Route Frequency acetaminophen (TYLENOL) oral suspension 1,000 mg 1,000 mg feeding tube TID PRN amLODIPine (NORVASC) tablet 10 mg 10 mg feeding tube DAILY atorvastatin (LIPITOR) tablet 10 mg 10 mg feeding tube DAILY bisacodyl (DULCOLAX) suppository 10 mg 10 mg rectal DAILY PRN budesonide (PULMICORT) 0.5 mg/2 mL nebulizer suspension 0.5 mg 0.5 mg inhalation BID carvedilol (COREG) tablet 18.75 mg 18.75 mg feeding tube BID chlorhexidine (PERIDEX) mouthwash 15 mL 15 mL oral Q6H dextrose 5%-NaCl 0.45% IV infusion 5-400 mL intravenous PRN dextrose 50 % in water IV 15-150 mL 15-150 mL intravenous PRN enoxaparin (LOVENOX) injection 40 mg 40 mg subcutaneous Q12H (Scheduled) famotidine (PEPCID) tablet 20 mg 20 mg feeding tube BID gabapentin (NEURONTIN) liquid 300 mg 300 mg feeding tube TID glucagon (GLUCAGEN) injection 1 mg 1 mg intramuscular PRN glucose chewable tablet 4-40 g 4-40 g oral PRN hydrALAZINE (APRESOLINE) injection 10 mg 10 mg intravenous Q4H PRN HYDROmorphone (DILAUDID) injection 0.5-1.5 mg 0.5-1.5 mg intravenous Q2H PRN influenza vaccine (FLUZONE) (PF) IM injection (age 3 years or greater) 0.5 mL 0.5 mL i ntramuscular Day of Discharge insulin regular bolus from continuous infusion 1-50 Units 1-50 Units intravenous NE EDED (BOLUS) insulin regular in NaCl 0.9% IV infusion (1 unit/mL) 0.1-50 Units/hr intravenous ROMARIO NUOUS ipratropium-albuterol (DUO-NEB) nebulizer solution 3 mL 3 mL inhalation Q6H menthol-zinc oxide (CALAZIME) topical paste 0.2%-16.5% topical QID PRN nystatin (MYCOSTATIN) powder topical BID oxyCODONE (immediate release) (ROXICODONE) tablet 2.5-5 mg 2.5-5 mg feeding tube Q4H P RN polyethylene glycol (MIRALAX) packet 34 g 34 g feeding tube TID PRN probiotic kefir (KEYONNA'S KEFIR) oral BID senna (SENOKOT) liquid 17.6 mg 10 mL feeding tube BID PRN sertraline (ZOLOFT) tablet 100 mg 100 mg oral DAILY white petrolatum-mineral oil-lanolin (LACRILUBE) 83-15 % ophthalmic ointment Both Eye s PRN Physical Exam: BP 138/62 | Pulse 90 | Temp 37.1 C (98.8 F) | RR 22 | Ht 1.68 m (5' 6.14") | Wt 156 kg (343 lb 14.7 oz) | SpO2 94% | BMI 55.27 kg/(m^2) Systolic (24hrs), Av , Min:114 , Max:169 Diastolic (24hrs), Av, Min:55, Max:95 Pulse Av.3 Min: 81 Max: 99 Temp Av.2 C (99 F) Min: 37 C (98.6 F) Max: 37.5 C (99.5 F) Resp Av.8 Min: 16 Max: 30 SpO2 Av.6 % Min: 91 % Max: 96 % Intake/Output Summary (Last 24 hours) at 02/20/18 1015 Last data filed at 02/20/18 0942 Gross per 24 hour Intake 2951.15 ml Output 2725 ml Net 226.15 ml Intake/Output Summary (since admission) at 02/11/18 0012 Last data filed at 02/20/18 0942 Gross for the last 9 days Intake 83075.47 ml Output 40007 ml Net since Admission -28318.53 ml Mechanical Ventilation [place] body weight: 59.6 kg (131 lb 7.2 oz) Adjusted ideal body weight: 98.2 kg (216 lb 7 oz) $ Ventilator Mode - Adult: Pressure Support (02/20/18844) Set VT: 270 ml (02/15/18808) , Ordered mL/K mL/Kg (02/19/18230) Set Rate: 24 bpm (02/15/18808) -- Total Rate: 20 bpm (02/20/18844) VE: 7.2 L/MIN (02/20/18844) PEEP/CPAP: 5 cm H2O (02/20/18844) Current FIO2 (%): 40 fraction of O2 (02/20/18844) SpO2: 94 % (02/20/18899) Last PaO2/FiO2 ratio: Plateau: Plat Press: 13 cm H2O (02/15/18808) Driving Pressure: Driving Pressure (DP): 5 cm H2O (02/15/18808) PAO2/FIO2 RATIO Date/Time Value Ref Range Status 02/13/2018 09:39 PM 158 (L) >300 mmHg Final 02/13/2018 11:05 AM 198 (L) >300 mmHg Final 02/13/2018 05:29 AM 148 (L) >300 mmHg Final 02/13/2018 01:34 AM 134 (L) >300 mmHg Final 02/12/2018 07:11 PM 108 (L) >300 mmHg Final 02/12/2018 10:24 AM 160 (L) >300 mmHg Final 02/12/2018 06:31 AM 175 (L) >300 mmHg Final Lab Results Component Value Date PH 7.45 (H) 02/14/2018 PCO2 44 (H) 02/14/2018 PO2 64 (L) 02/14/2018 HCO3 30 (H) 02/14/2018 [id number] 94.2 02/14/2018 FIO2 0.40 02/13/2018 [id number] 158 (L) 02/13/2018 Lab Results Component Value Date VBGEXCESS 0.4 02/15/2018 VBGPH 7.34 (L) 02/15/2018 VBGPCO2 49 02/15/2018 VBGPO2 61 (H) 02/15/2018 VBGHCO3 26 02/15/2018 Up to Last 5 ABGs in 72 hours: No results for input(s): PH, PCO2, PO2, HCO3, XFHXD6LKQ, K8WMHCPR, Y1HUAMJUQ, FIO2 in the l ast 72 hours. Lab Results Component Value Date PH 7.45 (H) 02/14/2018 PH 7.46 (H) 02/13/2018 PH 7.33 (L) 02/13/2018 PH 7.34 (L) 02/13/2018 PH 7.34 (L) 02/13/2018 PH 7.35 (L) 02/12/2018 PCO2 44 (H) 02/14/2018 PCO2 42 02/13/2018 PCO2 56 (H) 02/13/2018 PCO2 55 (H) 02/13/2018 PCO2 56 (H) 02/13/2018 PCO2 54 (H) 02/12/2018 PO2 64 (L) 02/14/2018 PO2 63 (L) 02/13/2018 PO2 79 02/13/2018 PO2 74 02/13/2018 PO2 67 (L) 02/13/2018 PO2 65 (L) 02/12/2018 HCO3 30 (H) 02/14/2018 HCO3 30 (H) 02/13/2018 HCO3 29 (H) 02/13/2018 HCO3 29 (H) 02/13/2018 HCO3 29 (H) 02/13/2018 HCO3 29 (H) 02/12/2018 [id number] 94.2 02/14/2018 [id number] 93.2 02/13/2018 M1ZJWQMB 96.3 02/13/2018 B3JSNCPR 95.3 02/13/2018 N3XWKOCS 94.0 02/13/2018 [id number] 91.6 (L) 02/12/2018 FIO2 0.40 02/13/2018 FIO2 0.40 02/13/2018 FIO2 0.50 02/13/2018 FIO2 0.50 02/13/2018 FIO2 0.60 02/12/2018 FIO2 0.40 02/12/2018 [id number] 158 (L) 02/13/2018 [id number] 198 (L) 02/13/2018 [id number] 148 (L) 02/13/2018 [id number] 134 (L) 02/13/2018 VAT7ABV2 108 (L) 02/12/2018 [id number] 160 (L) 02/12/2018 Recent Labs 02/11/18 0036 02/17/18 0403 02/18/18 0343 02/19/18 0317 02/20/18 0503 02/20/18 0713 02/20/18 0837 02/20/18 0945 NA 135* < > 147* -- 144 -- 144 -- 142 -- -- -- -- K 4.5 < > 3.8 -- 3.8 -- 3.4 -- 4.0 -- -- -- -- CL 103 < > 114* -- 111* -- 111* -- 110* -- -- -- -- BICARB 23 < > 28 -- 26 -- 27 -- 24 -- -- -- -- BUN 29* < > 46* -- 53* -- 48* -- 49* -- -- -- -- CR 1.23* < > 1.04 -- 1.14* -- 1.09 -- 1.05 -- -- -- -- GLU 158* < > 149* < > 148* < > 147* < > 163* < > 155* 149* 127* CA 7.6* < > 8.7 -- 8.9 -- 8.5* -- 8.9 -- -- -- -- AST 40 -- -- -- -- -- -- -- -- -- -- -- -- ALT 22 -- -- -- -- -- -- -- -- -- -- -- -- AP 59 -- -- -- -- -- -- -- -- -- -- -- -- TBILI 0.5 -- -- -- -- -- -- -- -- -- -- -- -- TP 6.4 -- -- -- -- -- -- -- -- -- -- -- -- ALB 2.6* < > 2.3* -- -- -- 2.3* -- 2.4* -- -- -- -- ANIONGAP 9 < > 5 -- 7 -- 6 -- 8 -- -- -- -- ANIONALBCOR 12* < > 9 -- -- -- 10 -- 12* -- -- -- -- < > = values in this interval not displayed. CBC with diff last 72 hours (or 3 results) - Refreshable Recent Labs 02/18/18 0343 02/20/18 0453 WBC 11.86* 17.96* HB 12.4 12.9 HCT 40.6 41.6 PLT 314 351 NEUTROPERC -- 78.8* LYMPHPERC -- 11.5* MONOPERC -- 7.0 BASOPERC -- 0.6 EOSPERC -- 1.3 No results found for: APTT, FIBRINOGEN No results found for: [id number] No results found for: URICACID No results found for: FREET4, TSH, TPOAB, THYROGLOB, THYROGLOBAB, [id number] No results found for: IRON, IRONBINDCAP, SATTRANSFERR, FERRITIN No results found for: CK Lab Results Component Value Date TROPONIN <0.02 02/11/2018 Lab Results Component Value Date NTPROBNP 2,080 02/11/2018 No results found for: LIPASE No results found for: AMYLASEPLAS Lab Results Component Value Date VANCOTROUGH 29.3 (H) 02/12/2018 Lab Results Component Value Date LACTICACID 1.1 02/11/2018 Lab Results Component Value Date MG 2.0 02/20/2018 MG 2.1 02/19/2018 MG 2.7 (H) 02/17/2018 MG 2.9 (H) 02/16/2018 MG 2.6 02/15/2018 Lab Results Component Value Date PO4 3.2 02/20/2018 PO4 3.0 02/19/2018 PO4 2.8 02/17/2018 PO4 3.6 02/16/2018 PO4 4.0 02/15/2018 Lab Results Component Value Date CR 1.05 02/20/2018 CR 1.09 02/19/2018 CR 1.14 (H) 02/18/2018 CR 1.04 02/17/2018 CR 1.36 (H) 02/16/2018 No results found for: URICACID No results found for: FK506 No results found for: INRPT Lab Results Lab Test Name Results Date/Time QTCB 497 02/14/18 QTCB 468 02/11/18 QTCB 474 02/11/18 Results for orders placed or performed during the hospital encounter of 02/11/18 12 LEAD ECG Result Value Ref Range VENTRICULAR RATE 123 bpm ATRIAL RATE 57 ms P-R INTERVAL 163 ms P AXIS 44 deg QRS DURATION 77 ms QT 347 ms QTCB 497 ms R AXIS 268 deg T AXIS 51 deg ECG IMPRESSION Sinus tachycardia ECG IMPRESSION Atrial premature complexes with aberrant conduction ECG IMPRESSION Low voltage, precordial leads ECG IMPRESSION Anteroseptal infarct, old- ABNORMAL ECG - ECG IMPRESSION Electronically signed by: SHAHAB RENNER 02-16-2018 08:21:03 No results found for: RVSP No results found for: URINECOLOR, URAPPEARANCE, URINELE, URINENITRITE, URINEUROBILI, URINEP ROTEIN, URINEPH, URINEBLOOD, URSPECGRAV, URINEKETONES, URINEBILI, URINEGLUCOSE No results found for: URINEAMPPHOS, URINEBACTERI, URINECAOX, URINECAST, URINECLUE, URINEGRA NCAS, URINEHYALINE, URINEMUCOUS, URINEEPITH, URINEREDCELL, URINESQEPI, URINEPO4, URINEWBC, U RINEYEAST X-ray Chest 1 View Result Date: 02/13/2018 EXAM: CHEST 1 VIEW HISTORY: Hypoxemia. Evaluate endotracheal tube. COMPARISON: 02/12/18, 02/11/18 FINDINGS: The endotracheal tube is unchanged in position, terminating 5 cm above the jim. Enteric tube courses below the diaphragm and terminates outside the field of view. Evaluation of the lungs is somewhat limited due to large amount of overlying soft tissue. There is persistent left lower lobe retrocardiac consolidation, overall similar compared wit h 02/11/18. There is right infrahilar consolidative opacity, relatively similar to prior. Pa tchy opacity in the right upper lobe has decreased in conspicuity. No large pleural effusio n or pneumothorax is evident. The cardiomediastinal silhouette is stable, given differences in technique. IMPRESSION: Dense retrocardiac opacification and nodular right infrahilar opacities most suggestive of aspiration or pneumonia. I have personally reviewed the images and, if necessary, edited the report. I agree with t he report as now presented. X-ray Portable Chest 1 View Result Date: 02/15/2018 EXAM: ME CHEST 1 VIEW 04/06/18 06:12:20 HISTORY: Worsening hypoxia COMPARISON: Yesterday FINDINGS: The support equipment is unchanged. The cardiomediastinal silhouette is stable. Right lung groundglass is unchanged. There is minimally improved left lower lobe atelectasis. There is no pneumothorax. IMPRESSION: Minimal improvement left lower lobe consolidation likely combination of atelectasis and pos sible aspiration. I have personally reviewed the images and, if necessary, edited the report. I agree with t he report as now presented. X-ray Portable Chest 1 View Result Date: 02/14/2018 EXAM: ME CHEST 1 VIEW HISTORY: Fever of unknown origin. COMPARISON: 02/13/2018. FINDINGS: Endotracheal tube tip terminates 4 cm above the jim. Enteric tube courses below the diap hragm, out of the [id number]. Cardiomediastinal contour is stable. Increased, dense retro cardiac consolidation. Right infrahilar opacity and right lung groundglass is not significan tly changed. No large pleural effusion or pneumothorax. IMPRESSION: Increased dense retrocardiac and stable infrahilar opacification, most likely aspiration or developing pneumonia. I have personally reviewed the images and, if necessary, edited the report. I agree with t he report as now presented. X-ray Portable Chest 1 View Result Date: 02/12/2018 STUDY: ME CHEST 1 VIEW HISTORY: Endotracheal tube placement. COMPARISON: February 11, 2018 FINDINGS: The patient is imaged in prone position, limiting assessment of the lungs. The endotracheal tube terminates at the level of the clavicles, approximately 6.7 cm above the jim. The t ransesophageal sump tube terminates off the [id number]. Lung opacities are mostly obscure d. IMPRESSION: Endotracheal tube terminates in the high trachea, 6.7 cm above the jim. I have personally reviewed the images and, if necessary, edited the report. I agree with t he report as now presented. X-ray Portable Chest 1 View Result Date: 02/11/2018 STUDY: Portable chest radiograph HISTORY: Intubated COMPARISON: 02/10/2018 FINDINGS: Endotracheal tube tip terminates approximately 5 cm above the jim. An enteric tube trave ls caudally beyond the vmwpb-[id number]-sipe. Low lung volumes. Unchanged appearance of the cardiome diastinal silhouette which is partially obscured by the bilateral diffuse airspace opacities . No large pneumothorax. Probable small bilateral pleural effusions. The distribution of the air space opacities have not significantly changed. No acute osseous abnormalities. IMPRESSION: Redemonstration of diffuse bilateral extensive patchy airspace opacities. Enteric tube tip terminates approximately 5 cm above the jim. I have personally reviewed the images and, if necessary, edited the report. I agree with t he report as now presented. No results found for: CTCHEST No results found for: ABD No results found for: CTHEAD CULTURE RESULT Date Value Ref Range Status 02/14/2018 Final Final Report:No Bacteria or Yeast isolated at 5 days. 02/14/2018 Final Final Report:No Bacteria or Yeast isolated at 5 days. 02/11/2018 Final Final Report:No Bacteria or Yeast isolated at 5 days. 02/11/2018 Final Final Report:No Bacteria or Yeast isolated at 5 days. Last Drug Screen: No results found for: AMPHETAMINES, METHAMPHETAM, BARBITURATE, BENZO, CA NNABIS, COCAINE, ETOH, ETHANOL, OPIATE, ORGBASES, OXYCODONE, METHADONE an Palma MD - 0 02/20/2018 6:07 AM PDT [facility] MEDICAL ICU - PROGRESS NOTE Hospital Day: 9 | ICU Day: 10 ID/CC: Sarah Reeves is a 62 y.o. woman admitted to the MICU for acute hypoxemic respirato ry failure in setting of moderate ARDS 2/2 metapneumovirus and suspected bilateral pneumonia . Consultants: Nutrition 24 Hour Events: -Pt trialed SBT 02/19 for 1.5 hours. NIF -15. -Delayed evening SBT until the morning due to pt fatigue. -40 mg IV lasix. -Re-started tube feeds. -Had another SBT this am, tolerated for 45 minutes. Repeat NIF -12. Subjective: -Pt off sedation. Opens eyes to verbal/physical stimuli, but more sleepy-appearing compared to yesterday. Vital Signs: Cuff BP 138/62 (02/20/18 0900) | BP Min: 114/95 Max: 169/78 Cuff MAP 81 mmHg (04/11/18 0900) | BP Mean Min: 77 mmHg Max: 104 mmHg Art Line BP | No Data Recorded Art Line MAP | No Data Recorded HR 90 (02/20/18899) | Pulse Min: 81 Max: 99 | Cardiac Rhythm: Normal Sinus Rhythm (02/10) Temp 37.1 C (98.8 F) (02/20/18 0400) | Temp Min: 37 C (98.6 F) Max: 37.5 C (99. 5 F) RR 22 (02/20/18899) | Resp Min: 16 Max: 30 SpO2 94 % (02/20/18899) | SpO2 Min: 91 % Max: 96 % O2 Device Endotracheal tube (02/20/18844) | Pressure Support (02/20/18844) Ventilator Settings PSV: PSV: 10 cm H2O PEEP Set: 5 cm H2O RR: 24 bpm FiO2: 40 fraction of O2 Observed Ventilation Vex: Mandatory 350 ml | Spontaneous 370 ml [place] BW: 59.6 kg RR: 20 bpm Minute Ventilation: 7.2 L/MIN SpO2: 94 % Ventilator Diagnostics (Past 24 hrs) Pplat | Driving Pressure Total PEEP 5 cm H2O (02/19/18 1900) | AutoPEEP SBT Assessed Yes (02/20/18 0743) | SBT Outcome Pass SBT, ready for extubation (02/20/18 084 5) Cam/RASS Flowsheet Row Most Recent Value CAM (Confusion Assessment Method) Positive (probable delirium) RASS Scale 0 CPOT 4 (02/20/18 0933) Intake/Output Summary (Last 24 hours) at 02/20/18 0610 Last data filed at 02/20/18 0300 Gross per 24 hour Intake 2234.29 ml Output 2362 ml Net -127.71 ml Intake/Output Summary (since admission) at 02/11/18 0012 Last data filed at 02/20/18 0300 Gross for the last 9 days Intake 85854.86 ml Output 97423 ml Net since Admission -59252.14 ml BMI: 57.5 Weights 156 kg (343 lb 14.7 oz) (02/17/18 1100) 162 kg (357 lb 2.3 oz) (02/11/18 0054) Admit Wt: 162 kg (357 lb 2.3 oz) Physical Exam: GENERAL: Obese female, intubated, off sedation. CARDIAC: RRR. No m/r/g. RESPIRATORY: Coarse mech vent breath sounds bilaterally. ABDOMEN: soft, obese abd. Normoactive bowel sounds. EXTREMITIES: trace/1+ pitting edema to BLE. NEUROLOGICAL: off sedation, arouses to verbal/physical stimuli. Able to move extremities in response to pain/tactile stimuli (lower extremities > upper extremities). SKIN: Skin normal color, texture and turgor with no lesions or eruptions. LINES/TUBES: L foot PIV, RUE PIV; R wrist PIV; ETT; Mendiola; OG tube. Laboratories: Recent Labs 02/18/18 0343 02/20/18 0453 WBC 11.86* 17.96* HB 12.4 12.9 HCT 40.6 41.6 MCV 89.0 89.8 PLT 314 351 NEUTROPHILCO -- 14.15* LYMPHSABS -- 2.07 MONOCYTECO -- 1.26* EOSCO -- 0.23 BASOPHILCO -- 0.11* IMGRANABS -- 0.14* No results for input(s): INRPT, APTT, FIBRINOGEN in the last 720 hours. Recent Labs 02/18/18 0343 02/19/18 0317 02/20/18 0503 NA 144 144 142 K 3.8 3.4 4.0 CL 111* 111* 110* BICARB 26 27 24 BUN 53* 48* 49* CR 1.14* 1.09 1.05 CA 8.9 8.5* 8.9 MG -- 2.1 2.0 PO4 -- 3.0 3.2 ANIONGAP 7 6 8 Recent Labs 02/20/18 0256 02/20/18 0401 02/20/18 0503 02/20/18 0504 02/20/18 0609 02/20/18 0713 02/20/18 0837 02/20/18 0945 GLU 157* 163* 163* 148* 162* 155* 149* 127* Recent Labs 02/19/18 0317 02/20/18 0503 ALB 2.3* 2.4* Lab Orders - In Process (Through next 24h) Start Ordered 02/14/18 0845 CULTURE, BLOOD BACTI & YEAST ONCE 02/14/18 0836 02/14/18 0845 CULTURE, BLOOD BACTI & YEAST ONCE 02/14/18 0836 Microbiology: Sputum Cx from ETT (02/14/2018): 1+ oral francisco. Rare squams; no PMNs, no orgs. BCx (02/14/2018): NGTD x2 at 5 days. RVP (02/11/2018): positive metanpneumovirus. BCx (02/11/2018): NGTD Urine S. Pneumonia Ag (02/11/2018): negative. Urine Legionella Ag (02/11/2018): negative. Sputum Cx from ETT (02/11/2018): NGTD. No squams, mod PMNs, no orgs. MSSA/MRSA Nares (02/11/2018):neg. Imaging: CXR 02/15/2018: Minimal improvement left lower lobe consolidation likely combination of atelectasis and pos sible aspiration. CXR 02/14/2018: Increased dense retrocardiac and stable infrahilar opacification, most likely aspiration or developing pneumonia. CXR 02/13/2018: obtained post-supination Dense retrocardiac opacification and nodular right infrahilar opacities most suggestive of aspiration or pneumonia. CXR 02/12/2018: Endotracheal tube terminates in the high trachea, 6.7 cm above the jim. Abd XR Feeding Tube Eval 02/12/2018: Of note, the patient is prone, and images have not been corrected. An orogastric tube is id entified terminating below the diaphragm likely within the body of the stomach. CXR 02/10/2018: 1. Redemonstration of diffuse bilateral extensive patchy airspace opacities. 2. Enteric tube tip terminates approximately 5 cm above the jim. EKG/Echocardiogram: none. Current Facility-Administered Medications Medication Dose Route Frequency Last Rate insulin regular in NaCl 0.9% IV infusion (1 unit/mL) 0.1-50 Units/hr intravenous ROMARIO NUOUS 0.9 Units/hr (02/20/18 0948) Current Facility-Administered Medications Medication Dose Route Frequency Last Rate amLODIPine (NORVASC) tablet 10 mg 10 mg feeding tube DAILY atorvastatin (LIPITOR) tablet 10 mg 10 mg feeding tube DAILY budesonide (PULMICORT) 0.5 mg/2 mL nebulizer suspension 0.5 mg 0.5 mg inhalation BID carvedilol (COREG) tablet 18.75 mg 18.75 mg feeding tube BID chlorhexidine (PERIDEX) mouthwash 15 mL 15 mL oral Q6H enoxaparin (LOVENOX) injection 40 mg 40 mg subcutaneous Q12H (Scheduled) famotidine (PEPCID) tablet 20 mg 20 mg feeding tube BID furosemide (LASIX) injection 60 mg 60 mg intravenous ONCE gabapentin (NEURONTIN) liquid 300 mg 300 mg feeding tube TID ipratropium-albuterol (DUO-NEB) nebulizer solution 3 mL 3 mL inhalation Q6H nystatin (MYCOSTATIN) powder topical BID potassium chloride SR (K-DUR) tablet 40 mEq 40 mEq oral ONCE probiotic kefir (KEYONNA'S KEFIR) oral BID sertraline (ZOLOFT) tablet 100 mg 100 mg oral DAILY Current Facility-Administered Medications Medication Dose Route Frequency Last Rate acetaminophen (TYLENOL) oral suspension 1,000 mg 1,000 mg feeding tube TID PRN bisacodyl (DULCOLAX) suppository 10 mg 10 mg rectal DAILY PRN dextrose 5%-NaCl 0.45% IV infusion 5-400 mL intravenous PRN dextrose 50 % in water IV 15-150 mL 15-150 mL intravenous PRN glucagon (GLUCAGEN) injection 1 mg 1 mg intramuscular PRN glucose chewable tablet 4-40 g 4-40 g oral PRN hydrALAZINE (APRESOLINE) injection 10 mg 10 mg intravenous Q4H PRN HYDROmorphone (DILAUDID) injection 0.5-1.5 mg 0.5-1.5 mg intravenous Q2H PRN influenza vaccine (FLUZONE) (PF) IM injection (age 3 years or greater) 0.5 mL 0.5 mL i ntramuscular Day of Discharge insulin regular bolus from continuous infusion 1-50 Units 1-50 Units intravenous NE EDED (BOLUS) menthol-zinc oxide (CALAZIME) topical paste 0.2%-16.5% topical QID PRN oxyCODONE (immediate release) (ROXICODONE) tablet 2.5-5 mg 2.5-5 mg feeding tube Q4H P RN polyethylene glycol (MIRALAX) packet 34 g 34 g feeding tube TID PRN senna (SENOKOT) liquid 17.6 mg 10 mL feeding tube BID PRN white petrolatum-mineral oil-lanolin (LACRILUBE) 83-15 % ophthalmic ointment Both Eye s PRN Assessment & Plan: Sarah Reeves is a 62 y.o. woman admitted to the MICU for acute hypoxemic respiratory fail ure in setting of moderate ARDS 2/2 metapneumovirus and suspected bilateral pneumonia. Impro ving from respiratory standpoint, having passed SBT since 02/17, with gradual improvement in mental status since then. Neurologic #Sedation Sedation has been barrier to extubation. Significant PSVT at prior attempt. TG downtrending . -Off propofol as of 02/17 at 10:30. RASS goal 0. #Chronic pain - Oxycodone 2.5-5 mg Q4H prn 1st line pain overnight. - Hydromorphone 0.2-0.5 mg IV Q2H PRN overnight. - CPOT goal 0 to +1. - Cont gabapentin 300 mg TID. Cardiovascular #Paroxysmal SVT, Resolved Patient had multiple asymptomatic runs of SVT at the outside hospital which subsided after starting metoprolol 25 mg/bid. Transitioned to coreg on 02/16 for BP control. Pt's episodes have since resolved since starting carvedilol on 02/15. - Carvedilol to 18.75 mg PO BID. #HTN #HFpEF Normotensive on arrival with progressive rise in BP likely due to hypervolemia and improvin g sepsis. Last TTE 10/2017 showed LVEF 65-70% with grade 1 diastolic dysfunction with norm al RV size and function. - Amlodipine 10 mg QDAY (started 02/14). - Carvedilol to 18.75 mg PO BID. - 60 mg IV lasix x1 + 40 KCl. -Goal net neg 1.0 L. Respiratory #Acute hypoxemic hypercapnic respiratory failure requiring intubation #ARDS moderate #Metapneumovirus Etiologies: metapneumovirus +/- superimposed bacterial pneumonia with component of hypervol emia from HFpEF in setting of chronic lung disease (moderate asthma). Empirically s/p oselta mivir x 5d course at OSH then treated with IV CTX + azithro x 3d (02/08-02/10) and vancomyci n added 02/10 at [facility]. Pt already with poor baseline pulm function in setting of OLIVIA. Uri ne S. pneumo and legionella ag neg. MRSA nares neg. Completed 7 day abx course (01/12-02/14) . Blood Cx and sputum cx negative. Overall significantly improving PS needs. Has been passin g SBT daily since 02/17, with mentation being largest barrier to extubation. - Plan to extubate to BiPAP today, 02/20. -Needs to change to different bariatric bed that will allow pt to remain seated in uprigh t position. - Nursing to try work on motor exercises. PT already consulted. - Monitor. #OLIVIA - As outlined above. #Moderate persistent bronchial asthma - Home budesonide BID - Duonebs Q4H rajeev. GI / Nutrition #OG tube - Holding TF fr nowdue to plans for extubation 02/20. / Renal # Hypervolemic hypernatremia, Resolved: Likely 2/2 increase in TF. - Continue free water flushes 250 mL Q4H Infectious Disease See respiratory Hematology / Oncology # Leukocytosis: Unclear etiology but likely reactive 2/2 stress vs. Hemoconcentration. Unlikely 2/2 infecti on (although did previously think about VAP), because of improved opacity on CXR 02/15, joseph ining afebrile, and no hypotension to suggest sepsis. - Monitor for e/o sepsis. Endocrine #DMII (Last A1c was 10.6mg/dl per outside hospital records): - Cont IV insulin via endotool. - Anticipate transitioning to SC insulin once resp plan stable. RESOLVED/CHRONIC ISSUES: #Non-oligouric NANCY on CKD stage III Baseline Cr 1.3. Etiology: pre-renal in setting of aggressive diuresis from 02/11-02/12. -IV diuresis 02/17. SCr 1.0 -> 1.14. #HLD - Continue atorvastatin 10 mg QDAY. #Depression - Continue sertraline 100 mg QDAY Consultants:Nutrition Feeding: Tube Feeds Analgesia: Oxycodone, Hydromorphone PRN Sedation:None. Rass goal 0. Thromboprophylaxis: LMWH SC Head of Bed: > 30 Ulcer Prophylaxis: H2 shane Glycemic control: IV insulin via Endotool. MobilityGoal:Passive ROM Lines/Tubes/Drains/Airways: PIV x2, Mendiola, Rectal tube, OG tube, and ETT. Code Status Code Status Full Code Surrogate Decision Maker Documentation: Surrogate Decision Maker Primary Surrogate Decision Maker Latanya Gunter Sister [phone] Secondary Surrogate Decision Maker Mr. Reeves This patient was staffed with Dr. Sanchez, attending physician. VAN PALMA MD Template created by TABITHA 2017 Gely Thomas MD - 02/19/2018 8:47 PM PDT MICU Attg. Progress Note Overnight Events: intermittently following commands Moving hands and feet! Did SBT this am x1 hour, but barely passed with RSBI ~101. Mental status and weakness remain barriers to extubation. Hospital Day: 8 Code Status: FULL A/P: 62F with acute hypoxemic respiratory failure secondary to ARDS secondary to metapneumo virus, now past the acute phase and in recovery. Main issue is ICU weakness which is slowly recovering. Neuro: Improving. Starting to follow commands, move hands/feet. No need for emg. Needs PT/OT. OOB if possible. Minimize sedation. CV: Hemodynamically stable. SVTs resolved. On carvedilol. Pulm: Recovery phase of ARDS, on PSV 08/16. Nearing ability to pass SBT. Needs to be more awake and able to cough/manage secretions before extubation. SBT in am. I/O goal even to negative. ID: metapneumovirus Renal: CKD now back to stable CR. Replete K with diuresis. Continue free water for hypernatremia. Na stable at 144 GI/Liver: On tube feeds at goal. I examined the patient myself. I have read and agree with the plan as outlined in the sanchezi dent note, except as otherwise noted above. Critical Care Time = 35 min exclusive of procedures. Last Vitals: BP 152/73 | Pulse 94 | Temp 37.2 C (99 F) | RR 24 | Ht 1.68 m (5' 6.14") | Wt 156 kg (343 lb 14.7 oz) | SpO2 95% | BMI 55.27 kg/(m^2) 24 Hour Vital Min/Max: Systolic (24hrs), Av , Min:114 , Max:152 Diastolic (24hrs), Av, Min:60, Max:95 Pulse Min: 81 Max: 101 Temp Min: 37.2 C (99 F) Max: 37.7 C (99.9 F) Resp Min: 16 Max: 30 SpO2 Min: 90 % Max: 97 % Intake/Output Summary (Last 24 hours) at 02/19/182046 Last data filed at 02/19/182027 Gross per 24 hour Intake 2426.12 ml Output 1792 ml Net 634.12 ml Mechanical Ventilation $ Ventilator Mode - Adult: Pressure Support (02/19/181899) Set VT: 270 ml (02/15/18808) , Ordered mL/K mL/Kg (02/19/18230) Set Rate: 24 bpm (02/15/18808) -- Total Rate: 22 bpm (02/19/181899) VE: 8 L/MIN (02/19/181899) PEEP/CPAP: 5 cm H2O (02/19/181899) Current FIO2 (%): 40 fraction of O2 (02/19/181899) SpO2: 95 % (02/19/181899) Last PaO2/FiO2 ratio: Plateau: Plat Press: 13 cm H2O (02/15/18808) Driving Pressure: Driving Pressure (DP): 5 cm H2O (02/15/18808) Current Facility-Administered Medications Medication Dose Route Frequency Provider Last Rate Last Dose acetaminophen (TYLENOL) oral suspension 1,000 mg 1,000 mg feeding tube TID PRN Angel Renee MD 1,000 mg at 02/19/18 1601 amLODIPine (NORVASC) tablet 10 mg 10 mg feeding tube DAILY Van Palma MD 10 m g at 02/19/18847 atorvastatin (LIPITOR) tablet 10 mg 10 mg feeding tube DAILY Fercho Carrasco MD 1 0 mg at 02/19/18847 bisacodyl (DULCOLAX) suppository 10 mg 10 mg rectal DAILY PRN Leif Matamoros MD budesonide (PULMICORT) 0.5 mg/2 mL nebulizer suspension 0.5 mg 0.5 mg inhalation BID M farrukh Carrasco MD 0.5 mg at 02/19/181958 carvedilol (COREG) tablet 18.75 mg 18.75 mg feeding tube BID Leif Matamoros MD 18. 75 mg at 02/19/18 0849 chlorhexidine (PERIDEX) mouthwash 15 mL 15 mL oral Q6H Constanza Byrd MD 15 mL at 08/29 1613 dextrose 5%-NaCl 0.45% IV infusion 5-400 mL intravenous PRN Will Mcclure MD dextrose 50 % in water IV 15-150 mL 15-150 mL intravenous PRN Katelyn Rosas enoxaparin (LOVENOX) injection 40 mg 40 mg subcutaneous Q12H (Scheduled) Will Mcclure MD 40 mg at 02/19/18 0846 famotidine (PEPCID) tablet 20 mg 20 mg feeding tube BID Constanza Byrd MD 20 mg at 0848 gabapentin (NEURONTIN) liquid 300 mg 300 mg feeding tube TID Van Palma MD 30 0 mg at 02/19/18 1601 glucagon (GLUCAGEN) injection 1 mg 1 mg intramuscular PRN Danette Cole MD glucose chewable tablet 4-40 g 4-40 g oral PRN Will Mcclure MD hydrALAZINE (APRESOLINE) injection 10 mg 10 mg intravenous Q4H PRN Marcela Resendiz MD 10 mg at 02/17/18 0810 HYDROmorphone (DILAUDID) injection 0.5-1.5 mg 0.5-1.5 mg intravenous Q2H PRN Constanza huntley MD influenza vaccine (FLUZONE) (PF) IM injection (age 3 years or greater) 0.5 mL 0.5 mL i ntramuscular Day of Discharge Van Palma MD insulin regular bolus from continuous infusion 1-50 Units 1-50 Units intravenous NE EDED (BOLUS) Will Mcclure MD insulin regular in NaCl 0.9% IV infusion (1 unit/mL) 0.1-50 Units/hr intravenous ROMARIO NUOUS Will Mcclure MD 5.5 mL/hr at 02/19/181911 5.5 Units/hr at 02/19/181911 ipratropium-albuterol (DUO-NEB) nebulizer solution 3 mL 3 mL inhalation Q6H Sergio Sanchez MD 3 mL at 02/19/181957 menthol-zinc oxide (CALAZIME) topical paste 0.2%-16.5% topical QID PRN Angel Renee MD nystatin (MYCOSTATIN) powder topical BID Fercho Carrasco MD oxyCODONE (immediate release) (ROXICODONE) tablet 2.5-5 mg 2.5-5 mg feeding tube Q4H P RN Edwin Villa MD 2.5 mg at 02/19/181827 polyethylene glycol (MIRALAX) packet 34 g 34 g feeding tube TID PRN Katelyn Matias kefir (KEYONNA'S KEFIR) oral BID Van Palma MD senna (SENOKOT) liquid 17.6 mg 10 mL feeding tube BID PRN Van Palma MD sertraline (ZOLOFT) tablet 100 mg 100 mg oral DAILY Van Palma MD 100 mg at 0 02/19/18 0848 white petrolatum-mineral oil-lanolin (LACRILUBE) 83-15 % ophthalmic ointment Both Eye s PRN Van Palma MD Chemistries: Last 72 Hours (or 3 results): Recent Labs 02/17/18 0403 02/18/18 0343 02/19/18 0317 02/19/18 1806 02/19/18 1912 02/19/182027 NA 147* -- 144 -- 144 -- -- -- -- K 3.8 -- 3.8 -- 3.4 -- -- -- -- CL 114* -- 111* -- 111* -- -- -- -- BICARB 28 -- 26 -- 27 -- -- -- -- BUN 46* -- 53* -- 48* -- -- -- -- CR 1.04 -- 1.14* -- 1.09 -- -- -- -- GLU 149* < > 148* < > 147* < > 181* 164* 164* CA 8.7 -- 8.9 -- 8.5* -- -- -- -- MG 2.7* -- -- -- 2.1 -- -- -- -- PO4 2.8 -- -- -- 3.0 -- -- -- -- < > = values in this interval not displayed. CBC with diff last 72 hours (or 3 results) Recent Labs 02/17/18 0403 02/18/18 0343 WBC 13.88* 11.86* HB 13.2 12.4 HCT 44.5 40.6 PLT 293 314 NEUTROPERC 73.2* -- LYMPHPERC 13.8* -- MONOPERC 7.8 -- BASOPERC 0.6 -- EOSPERC 2.9 -- Liver Tests: Last 72 hours (or 3 results) Recent Labs 02/17/18 0403 02/19/18 0317 ALB 2.3* 2.3* No results found for: INRPT @lastlactase3@ CBG Result Av.6 Min: 120 Max: 181 LastCBG Intervention: -- (6.5) (02/18/18 0453) Last CBG's POC Lab Results Component Value Date GLU 164 (H) 02/19/2018 GLU 164 (H) 02/19/2018 GLU 181 (H) 02/19/2018 No results found for: CXR Sergio Ta MD - 02/19/2018 11:20 AM PDT MICU ATTENDING PROGRESS NOTE Author: SERGIO SANCHEZ MD Attending Physician: Sergio Sanchez MD Patients Hospital Problem List: Active Hospital Problems 1) Pneumonia 2) ARDS (adult respiratory distress syndrome) (HCC) 3) Pneumonia due to human metapneumovirus (hMPV) 4) Severe obesity (BMI >= 40) (HCC) 5) Toxic metabolic encephalopathy 6) SVT (supraventricular tachycardia) (HCC) 7) CKD (chronic kidney disease) 8) HTN (hypertension) Assessment and Plan: I personally performed the marcano elements of the physical examination, and personally formula lisa the assessment and plan with the MICU resident and the team. See resident note for [facility] day # 8. Sarah is a 62 y.o. female with ARDS from Metapneumovirus, remains intubated, has ICU neuopa thy. Neuro: patient still not fully responsive, improvement in mobility. Resp: Tolerating PSV, intermittently lower volumes. CVS: Hemodynamically stable, coreg stable ID: No issues GI / Hepatology/ Nutrition: Tube feeding to restart Renal / Electrolytes: Hypokalemia being repleted. Hem-Onc: No issues Endo: IV Insulin Code status/Family: Full code. Will try physical therapy. SERGIO SANCHEZ MD [facility] [address] [place] [address] I spent 31 min in critical care. Current Meds: Current Facility-Administered Medications Medication Dose Route Frequency acetaminophen (TYLENOL) oral suspension 1,000 mg 1,000 mg feeding tube TID PRN amLODIPine (NORVASC) tablet 10 mg 10 mg feeding tube DAILY atorvastatin (LIPITOR) tablet 10 mg 10 mg feeding tube DAILY bisacodyl (DULCOLAX) suppository 10 mg 10 mg rectal DAILY PRN budesonide (PULMICORT) 0.5 mg/2 mL nebulizer suspension 0.5 mg 0.5 mg inhalation BID carvedilol (COREG) tablet 18.75 mg 18.75 mg feeding tube BID chlorhexidine (PERIDEX) mouthwash 15 mL 15 mL oral Q6H dextrose 5%-NaCl 0.45% IV infusion 5-400 mL intravenous PRN dextrose 50 % in water IV 15-150 mL 15-150 mL intravenous PRN enoxaparin (LOVENOX) injection 40 mg 40 mg subcutaneous Q12H (Scheduled) famotidine (PEPCID) tablet 20 mg 20 mg feeding tube BID gabapentin (NEURONTIN) liquid 300 mg 300 mg feeding tube TID glucagon (GLUCAGEN) injection 1 mg 1 mg intramuscular PRN glucose chewable tablet 4-40 g 4-40 g oral PRN hydrALAZINE (APRESOLINE) injection 10 mg 10 mg intravenous Q4H PRN HYDROmorphone (DILAUDID) injection 0.5-1.5 mg 0.5-1.5 mg intravenous Q2H PRN influenza vaccine (FLUZONE) (PF) IM injection (age 3 years or greater) 0.5 mL 0.5 mL i ntramuscular Day of Discharge insulin regular bolus from continuous infusion 1-50 Units 1-50 Units intravenous NE EDED (BOLUS) insulin regular in NaCl 0.9% IV infusion (1 unit/mL) 0.1-50 Units/hr intravenous ROMARIO NUOUS ipratropium-albuterol (DUO-NEB) nebulizer solution 3 mL 3 mL inhalation Q6H menthol-zinc oxide (CALAZIME) topical paste 0.2%-16.5% topical QID PRN nystatin (MYCOSTATIN) powder topical BID oxyCODONE (immediate release) (ROXICODONE) tablet 2.5-5 mg 2.5-5 mg feeding tube Q4H P RN polyethylene glycol (MIRALAX) packet 34 g 34 g feeding tube TID PRN probiotic kefir (KEYONNA'S KEFIR) oral BID senna (SENOKOT) liquid 17.6 mg 10 mL feeding tube BID PRN sertraline (ZOLOFT) tablet 100 mg 100 mg oral DAILY white petrolatum-mineral oil-lanolin (LACRILUBE) 83-15 % ophthalmic ointment Both Eye s PRN Physical Exam: BP 137/67 | Pulse 89 | Temp 37.2 C (99 F) | RR 23 | Ht 1.68 m (5' 6.14") | Wt 156 kg (3 43 lb 14.7 oz) | SpO2 91% | BMI 55.27 kg/(m^2) Systolic (24hrs), Av , Min:118 , Max:153 Diastolic (24hrs), Av, Min:60, Max:95 Pulse Av.3 Min: 88 Max: 103 Temp Av.5 C (99.5 F) Min: 37.2 C (99 F) Max: 37.8 C (100 F) Resp Av.3 Min: 16 Max: 27 SpO2 Av.3 % Min: 90 % Max: 97 % Intake/Output Summary (Last 24 hours) at 02/19/18 1120 Last data filed at 02/19/18 1107 Gross per 24 hour Intake 1592.81 ml Output 4162 ml Net -2569.19 ml Intake/Output Summary (since admission) at 02/11/18 0012 Last data filed at 02/19/18 1107 Gross for the last 8 days Intake 87159.89 ml Output 17424 ml Net since Admission -55557.11 ml Mechanical Ventilation [place] body weight: 59.6 kg (131 lb 7.2 oz) Adjusted ideal body weight: 98.2 kg (216 lb 7 oz) $ Ventilator Mode - Adult: Pressure Support (02/19/18943) Set VT: 270 ml (02/15/18808) , Ordered mL/K mL/Kg (02/19/18230) Set Rate: 24 bpm (02/15/18808) -- Total Rate: 26 bpm (02/19/18813) VE: 10.3 L/MIN (02/19/18813) PEEP/CPAP: 5 cm H2O (02/19/18943) Current FIO2 (%): 40 fraction of O2 (02/19/181099) SpO2: 91 % (02/19/181099) Last PaO2/FiO2 ratio: Plateau: Plat Press: 13 cm H2O (02/15/18808) Driving Pressure: Driving Pressure (DP): 5 cm H2O (02/15/18808) PAO2/FIO2 RATIO Date/Time Value Ref Range Status 02/13/2018 09:39 PM 158 (L) >300 mmHg Final 02/13/2018 11:05 AM 198 (L) >300 mmHg Final 02/13/2018 05:29 AM 148 (L) >300 mmHg Final 02/13/2018 01:34 AM 134 (L) >300 mmHg Final 02/12/2018 07:11 PM 108 (L) >300 mmHg Final 02/12/2018 10:24 AM 160 (L) >300 mmHg Final 02/12/2018 06:31 AM 175 (L) >300 mmHg Final Lab Results Component Value Date PH 7.45 (H) 02/14/2018 PCO2 44 (H) 02/14/2018 PO2 64 (L) 02/14/2018 HCO3 30 (H) 02/14/2018 [id number] 94.2 02/14/2018 FIO2 0.40 02/13/2018 [id number] 158 (L) 02/13/2018 Lab Results Component Value Date VBGEXCESS 0.4 02/15/2018 VBGPH 7.34 (L) 02/15/2018 VBGPCO2 49 02/15/2018 VBGPO2 61 (H) 02/15/2018 VBGHCO3 26 02/15/2018 Up to Last 5 ABGs in 72 hours: No results for input(s): PH, PCO2, PO2, HCO3, [id number], K3UEFHNM, N0LLGYQFN, FIO2 in the l ast 72 hours. Lab Results Component Value Date PH 7.45 (H) 02/14/2018 PH 7.46 (H) 02/13/2018 PH 7.33 (L) 02/13/2018 PH 7.34 (L) 02/13/2018 PH 7.34 (L) 02/13/2018 PH 7.35 (L) 02/12/2018 PCO2 44 (H) 02/14/2018 PCO2 42 02/13/2018 PCO2 56 (H) 02/13/2018 PCO2 55 (H) 02/13/2018 PCO2 56 (H) 02/13/2018 PCO2 54 (H) 02/12/2018 PO2 64 (L) 02/14/2018 PO2 63 (L) 02/13/2018 PO2 79 02/13/2018 PO2 74 02/13/2018 PO2 67 (L) 02/13/2018 PO2 65 (L) 02/12/2018 HCO3 30 (H) 02/14/2018 HCO3 30 (H) 02/13/2018 HCO3 29 (H) 02/13/2018 HCO3 29 (H) 02/13/2018 HCO3 29 (H) 02/13/2018 HCO3 29 (H) 02/12/2018 [id number] 94.2 02/14/2018 T0AVPPPI 93.2 02/13/2018 [id number] 96.3 02/13/2018 W3BLVVCK 95.3 02/13/2018 [id number] 94.0 02/13/2018 [id number] 91.6 (L) 02/12/2018 FIO2 0.40 02/13/2018 FIO2 0.40 02/13/2018 FIO2 0.50 02/13/2018 FIO2 0.50 02/13/2018 FIO2 0.60 02/12/2018 FIO2 0.40 02/12/2018 [id number] 158 (L) 02/13/2018 TCE0EPO9 198 (L) 02/13/2018 PAL4HIY8 148 (L) 02/13/2018 FJK4TBD9 134 (L) 02/13/2018 GUO9UMP8 108 (L) 02/12/2018 EJV3VGE5 160 (L) 02/12/2018 Recent Labs 02/11/18 0036 02/16/18 0120 02/17/18 0403 02/18/18 0343 02/19/18 0317 02/19/18 0859 02/19/18 1002 02/19/18 1107 NA 135* < > 146* -- 147* -- 144 -- 144 -- -- -- -- K 4.5 < > 4.4 -- 3.8 -- 3.8 -- 3.4 -- -- -- -- CL 103 < > 112* -- 114* -- 111* -- 111* -- -- -- -- BICARB 23 < > 27 -- 28 -- 26 -- 27 -- -- -- -- BUN 29* < > 49* -- 46* -- 53* -- 48* -- -- -- -- CR 1.23* < > 1.36* -- 1.04 -- 1.14* -- 1.09 -- -- -- -- GLU 158* < > 191* < > 149* < > 148* < > 147* < > 164* 181* 180* CA 7.6* < > 8.4* -- 8.7 -- 8.9 -- 8.5* -- -- -- -- AST 40 -- -- -- -- -- -- -- -- -- -- -- -- ALT 22 -- -- -- -- -- -- -- -- -- -- -- -- AP 59 -- -- -- -- -- -- -- -- -- -- -- -- TBILI 0.5 -- -- -- -- -- -- -- -- -- -- -- -- TP 6.4 -- -- -- -- -- -- -- -- -- -- -- -- ALB 2.6* < > 2.4* -- 2.3* -- -- -- 2.3* -- -- -- -- ANIONGAP 9 < > 7 -- 5 -- 7 -- 6 -- -- -- -- ANIONALBCOR 12* < > 11 -- 9 -- -- -- 10 -- -- -- -- < > = values in this interval not displayed. CBC with diff last 72 hours (or 3 results) - Refreshable Recent Labs 02/17/18 0403 02/18/18 0343 WBC 13.88* 11.86* HB 13.2 12.4 HCT 44.5 40.6 PLT 293 314 NEUTROPERC 73.2* -- LYMPHPERC 13.8* -- MONOPERC 7.8 -- BASOPERC 0.6 -- EOSPERC 2.9 -- No results found for: APTT, FIBRINOGEN No results found for: [id number] No results found for: URICACID No results found for: FREET4, TSH, TPOAB, THYROGLOB, THYROGLOBAB, J0GMLBD No results found for: IRON, IRONBINDCAP, SATTRANSFERR, FERRITIN No results found for: CK Lab Results Component Value Date TROPONIN <0.02 02/11/2018 Lab Results Component Value Date NTPROBNP 2,080 02/11/2018 No results found for: LIPASE No results found for: AMYLASEPLAS Lab Results Component Value Date VANCOTROUGH 29.3 (H) 02/12/2018 Lab Results Component Value Date LACTICACID 1.1 02/11/2018 Lab Results Component Value Date MG 2.1 02/19/2018 MG 2.7 (H) 02/17/2018 MG 2.9 (H) 02/16/2018 MG 2.6 02/15/2018 MG 2.6 02/15/2018 Lab Results Component Value Date PO4 3.0 02/19/2018 PO4 2.8 02/17/2018 PO4 3.6 02/16/2018 PO4 4.0 02/15/2018 PO4 2.0 (L) 02/14/2018 Lab Results Component Value Date CR 1.09 02/19/2018 CR 1.14 (H) 02/18/2018 CR 1.04 02/17/2018 CR 1.36 (H) 02/16/2018 CR 1.38 (H) 02/15/2018 No results found for: URICACID No results found for: FK506 No results found for: INRPT Lab Results Lab Test Name Results Date/Time QTCB 497 02/14/18 QTCB 468 02/11/18 QTCB 474 02/11/18 Results for orders placed or performed during the hospital encounter of 02/11/18 12 LEAD ECG Result Value Ref Range VENTRICULAR RATE 123 bpm ATRIAL RATE 57 ms P-R INTERVAL 163 ms P AXIS 44 deg QRS DURATION 77 ms QT 347 ms QTCB 497 ms R AXIS 268 deg T AXIS 51 deg ECG IMPRESSION Sinus tachycardia ECG IMPRESSION Atrial premature complexes with aberrant conduction ECG IMPRESSION Low voltage, precordial leads ECG IMPRESSION Anteroseptal infarct, old- ABNORMAL ECG - ECG IMPRESSION Electronically signed by: SHAHAB RENNER 02-16-2018 08:21:03 No results found for: RVSP No results found for: URINECOLOR, URAPPEARANCE, URINELE, URINENITRITE, URINEUROBILI, URINEP ROTEIN, URINEPH, URINEBLOOD, URSPECGRAV, URINEKETONES, URINEBILI, URINEGLUCOSE No results found for: URINEAMPPHOS, URINEBACTERI, URINECAOX, URINECAST, URINECLUE, URINEGRA NCAS, URINEHYALINE, URINEMUCOUS, URINEEPITH, URINEREDCELL, URINESQEPI, URINEPO4, URINEWBC, U RINEYEAST X-ray Chest 1 View Result Date: 02/13/2018 EXAM: CHEST 1 VIEW HISTORY: Hypoxemia. Evaluate endotracheal tube. COMPARISON: 02/12/18, 02/11/18 FINDINGS: The endotracheal tube is unchanged in position, terminating 5 cm above the jim. Enteric tube courses below the diaphragm and terminates outside the field of view. Evaluation of the lungs is somewhat limited due to large amount of overlying soft tissue. There is persistent left lower lobe retrocardiac consolidation, overall similar compared wit h 02/11/18. There is right infrahilar consolidative opacity, relatively similar to prior. Pa tchy opacity in the right upper lobe has decreased in conspicuity. No large pleural effusio n or pneumothorax is evident. The cardiomediastinal silhouette is stable, given differences in technique. IMPRESSION: Dense retrocardiac opacification and nodular right infrahilar opacities most suggestive of aspiration or pneumonia. I have personally reviewed the images and, if necessary, edited the report. I agree with t he report as now presented. X-ray Portable Chest 1 View Result Date: 02/15/2018 EXAM: ME CHEST 1 VIEW 02/15/18 06:12:20 HISTORY: Worsening hypoxia COMPARISON: Yesterday FINDINGS: The support equipment is unchanged. The cardiomediastinal silhouette is stable. Right lung groundglass is unchanged. There is minimally improved left lower lobe atelectasis. There is no pneumothorax. IMPRESSION: Minimal improvement left lower lobe consolidation likely combination of atelectasis and pos sible aspiration. I have personally reviewed the images and, if necessary, edited the report. I agree with t jhonathan report as now presented. X-ray Portable Chest 1 View Result Date: 02/14/2018 EXAM: ME CHEST 1 VIEW HISTORY: Fever of unknown origin. COMPARISON: 02/13/2018. FINDINGS: Endotracheal tube tip terminates 4 cm above the jim. Enteric tube courses below the diap hragm, out of the [id number]. Cardiomediastinal contour is stable. Increased, dense retro cardiac consolidation. Right infrahilar opacity and right lung groundglass is not significan tly changed. No large pleural effusion or pneumothorax. IMPRESSION: Increased dense retrocardiac and stable infrahilar opacification, most likely aspiration or developing pneumonia. I have personally reviewed the images and, if necessary, edited the report. I agree with meena ring report as now presented. X-ray Portable Chest 1 View Result Date: 02/12/2018 STUDY: ME CHEST 1 VIEW HISTORY: Endotracheal tube placement. COMPARISON: February 11, 2018 FINDINGS: The patient is imaged in prone position, limiting assessment of the lungs. The endotracheal tube terminates at the level of the clavicles, approximately 6.7 cm above the jim. The t ransesophageal sump tube terminates off the [id number]. Lung opacities are mostly obscure d. IMPRESSION: Endotracheal tube terminates in the high trachea, 6.7 cm above the jim. I have personally reviewed the images and, if necessary, edited the report. I agree with meena ring report as now presented. X-ray Portable Chest 1 View Result Date: 02/11/2018 STUDY: Portable chest radiograph HISTORY: Intubated COMPARISON: 02/10/2018 FINDINGS: Endotracheal tube tip terminates approximately 5 cm above the jim. An enteric tube trave ls caudally beyond the [id number]. Low lung volumes. Unchanged appearance of the cardiome diastinal silhouette which is partially obscured by the bilateral diffuse airspace opacities . No large pneumothorax. Probable small bilateral pleural effusions. The distribution of the air space opacities have not significantly changed. No acute osseous abnormalities. IMPRESSION: Redemonstration of diffuse bilateral extensive patchy airspace opacities. Enteric tube tip terminates approximately 5 cm above the jim. I have personally reviewed the images and, if necessary, edited the report. I agree with t he report as now presented. No results found for: CTCHEST No results found for: ABD No results found for: CTHEAD CULTURE RESULT Date Value Ref Range Status 02/14/2018 Preliminary No growth to date. 02/14/2018 Preliminary No growth to date. 02/11/2018 Final Final Report:No Bacteria or Yeast isolated at 5 days. 02/11/2018 Final Final Report:No Bacteria or Yeast isolated at 5 days. Last Drug Screen: No results found for: AMPHETAMINES, METHAMPHETAM, BARBITURATE, BENZO, CA NNABIS, COCAINE, ETOH, ETHANOL, OPIATE, ORGBASES, OXYCODONE, METHADONE Van Saucedo MD - 0 02/19/2018 6:01 AM PDT [facility] MEDICAL ICU - PROGRESS NOTE Hospital Day: 8 | ICU Day: 9 ID/CC: Sarah Reeves is a 62 y.o. woman admitted to the MICU for acute hypoxemic respirato ry failure in setting of moderate ARDS 2/2 metapneumovirus and suspected bilateral pneumonia . Consultants: Nutrition 24 Hour Events: -K 3.4, given 80 mEq. -Thought strength slowly improving per night team, so deferred EMGs. Subjective: -Pt off sedation. Opens eyes to verbal commands and answers yes/no questions. -Denied any chest pain, abd pain, nausea. Vital Signs: Cuff BP 151/68 (02/19/18 1200) | BP Min: 118/95 Max: 153/69 Cuff MAP 93 mmHg (02/19/18 1200) | BP Mean Min: 82 mmHg Max: 103 mmHg Art Line BP | No Data Recorded Art Line MAP | No Data Recorded HR 96 (02/19/18 1200) | Pulse Min: 88 Max: 103 | Cardiac Rhythm: Normal Sinus Rhythm (08/29 1200) Temp 37.2 C (99 F) (02/19/18 0930) | Temp Min: 37.2 C (99 F) Max: 37.7 C (99.9 F) RR 24 (02/19/18 1200) | Resp Min: 16 Max: 27 SpO2 92 % (02/19/181199) | SpO2 Min: 90 % Max: 97 % O2 Device Endotracheal tube (02/19/181199) | Pressure Support (02/19/18943) Ventilator Settings PSV: PSV: 5 cm H2O PEEP Set: 5 cm H2O RR: 24 bpm FiO2: 40 fraction of O2 Observed Ventilation Vex: Mandatory 350 ml | Spontaneous 41 ml [place] BW: 59.6 kg RR: 26 bpm Minute Ventilation: 10.3 L/MIN SpO2: 92 % Ventilator Diagnostics (Past 24 hrs) Pplat | Driving Pressure Total PEEP | AutoPEEP SBT Assessed Yes (02/19/18943) | SBT Outcome Cam/RASS Flowsheet Row Most Recent Value CAM (Confusion Assessment Method) Positive (probable delirium) RASS Scale -1 CPOT 1 (02/19/18 0800) Intake/Output Summary (Last 24 hours) at 02/19/18 0701 Last data filed at 02/19/18 0600 Gross per 24 hour Intake 1663.21 ml Output 4190 ml Net -2526.79 ml Intake/Output Summary (since admission) at 02/11/18 0012 Last data filed at 02/19/18 0600 Gross for the last 8 days Intake 51315.57 ml Output 16757 ml Net since Admission -13330.43 ml BMI: 57.5 Weights 156 kg (343 lb 14.7 oz) (02/17/18 1100) 162 kg (357 lb 2.3 oz) (02/11/18 0054) Admit Wt: 162 kg (357 lb 2.3 oz) Physical Exam: GENERAL: Obese female, intubated, off sedation. CARDIAC: RRR. No m/r/g. RESPIRATORY: Coarse mech vent breath sounds bilaterally. ABDOMEN: soft, obese abd. Normoactive bowel sounds. EXTREMITIES: trace/1+ pitting edema to BLE. NEUROLOGICAL: off sedation, arouses to verbal stimuli. Able to wiggle bilateral toes and fi ngers to command. Able to track eye movements. SKIN: Skin normal color, texture and turgor with no lesions or eruptions. LINES/TUBES: L foot PIV, RUE PIV; R wrist PIV; ETT; [place]; OG tube. Laboratories: Recent Labs 02/17/18 0403 02/18/18 0343 WBC 13.88* 11.86* HB 13.2 12.4 HCT 44.5 40.6 MCV 92.5 89.0 PLT 293 314 NEUTROPHILCO 10.16* -- LYMPHSABS 1.92 -- MONOCYTECO 1.08* -- EOSCO 0.40 -- BASOPHILCO 0.09 -- IMGRANABS 0.23* -- No results for input(s): INRPT, APTT, FIBRINOGEN in the last 720 hours. Recent Labs 02/17/18 0403 02/18/18 0343 02/19/18 0317 NA 147* 144 144 K 3.8 3.8 3.4 CL 114* 111* 111* BICARB 28 26 27 BUN 46* 53* 48* CR 1.04 1.14* 1.09 CA 8.7 8.9 8.5* MG 2.7* -- 2.1 PO4 2.8 -- 3.0 ANIONGAP 5 7 6 Recent Labs 02/19/18 0323 02/19/18 0431 02/19/18 0535 02/19/18 0641 02/19/18 0745 02/19/18 0859 02/19/18 1002 02/19/18 1107 GLU 166* 168* 148* 159* 125* 164* 181* 180* Recent Labs 02/17/18 0403 02/19/18 0317 ALB 2.3* 2.3* Lab Orders - In Process (Through next 24h) Start Ordered 02/14/18 0845 CULTURE, BLOOD BACTI & YEAST ONCE 02/14/18 0836 02/14/18 0845 CULTURE, BLOOD BACTI & YEAST ONCE 02/14/18 0836 Microbiology: Sputum Cx from ETT (02/14/2018): 1+ oral francisco. Rare squams; no PMNs, no orgs. BCx (02/14/2018): NGTD x2. RVP (02/11/2018): positive metanpneumovirus. BCx (02/11/2018): NGTD Urine S. Pneumonia Ag (02/11/2018): negative. Urine Legionella Ag (02/11/2018): negative. Sputum Cx from ETT (02/11/2018): NGTD. No squams, mod PMNs, no orgs. MSSA/MRSA Nares (02/11/2018):neg. Imaging: CXR 02/15/2018: Minimal improvement left lower lobe consolidation likely combination of atelectasis and pos sible aspiration. CXR 02/14/2018: Increased dense retrocardiac and stable infrahilar opacification, most likely aspiration or developing pneumonia. CXR 02/13/2018: obtained post-supination Dense retrocardiac opacification and nodular right infrahilar opacities most suggestive of aspiration or pneumonia. CXR 02/12/2018: Endotracheal tube terminates in the high trachea, 6.7 cm above the jim. Abd XR Feeding Tube Eval 02/12/2018: Of note, the patient is prone, and images have not been corrected. An orogastric tube is id entified terminating below the diaphragm likely within the body of the stomach. CXR 02/10/2018: 1. Redemonstration of diffuse bilateral extensive patchy airspace opacities. 2. Enteric tube tip terminates approximately 5 cm above the jim. EKG/Echocardiogram: none. Current Facility-Administered Medications Medication Dose Route Frequency Last Rate insulin regular in NaCl 0.9% IV infusion (1 unit/mL) 0.1-50 Units/hr intravenous ROMARIO NUOUS 4.6 Units/hr (02/19/18 1100) Current Facility-Administered Medications Medication Dose Route Frequency Last Rate amLODIPine (NORVASC) tablet 10 mg 10 mg feeding tube DAILY atorvastatin (LIPITOR) tablet 10 mg 10 mg feeding tube DAILY budesonide (PULMICORT) 0.5 mg/2 mL nebulizer suspension 0.5 mg 0.5 mg inhalation BID carvedilol (COREG) tablet 18.75 mg 18.75 mg feeding tube BID chlorhexidine (PERIDEX) mouthwash 15 mL 15 mL oral Q6H enoxaparin (LOVENOX) injection 40 mg 40 mg subcutaneous Q12H (Scheduled) famotidine (PEPCID) tablet 20 mg 20 mg feeding tube BID gabapentin (NEURONTIN) liquid 300 mg 300 mg feeding tube TID ipratropium-albuterol (DUO-NEB) nebulizer solution 3 mL 3 mL inhalation Q6H nystatin (MYCOSTATIN) powder topical BID probiotic kefir (KEYONNA'S KEFIR) oral BID sertraline (ZOLOFT) tablet 100 mg 100 mg oral DAILY Current Facility-Administered Medications Medication Dose Route Frequency Last Rate acetaminophen (TYLENOL) oral suspension 1,000 mg 1,000 mg feeding tube TID PRN bisacodyl (DULCOLAX) suppository 10 mg 10 mg rectal DAILY PRN dextrose 5%-NaCl 0.45% IV infusion 5-400 mL intravenous PRN dextrose 50 % in water IV 15-150 mL 15-150 mL intravenous PRN glucagon (GLUCAGEN) injection 1 mg 1 mg intramuscular PRN glucose chewable tablet 4-40 g 4-40 g oral PRN hydrALAZINE (APRESOLINE) injection 10 mg 10 mg intravenous Q4H PRN HYDROmorphone (DILAUDID) injection 0.5-1.5 mg 0.5-1.5 mg intravenous Q2H PRN influenza vaccine (FLUZONE) (PF) IM injection (age 3 years or greater) 0.5 mL 0.5 mL i ntramuscular Day of Discharge insulin regular bolus from continuous infusion 1-50 Units 1-50 Units intravenous NE EDED (BOLUS) menthol-zinc oxide (CALAZIME) topical paste 0.2%-16.5% topical QID PRN oxyCODONE (immediate release) (ROXICODONE) tablet 2.5-5 mg 2.5-5 mg feeding tube Q4H P RN polyethylene glycol (MIRALAX) packet 34 g 34 g feeding tube TID PRN senna (SENOKOT) liquid 17.6 mg 10 mL feeding tube BID PRN white petrolatum-mineral oil-lanolin (LACRILUBE) 83-15 % ophthalmic ointment Both Eye s PRN Assessment & Plan: Sarah Reeves is a 62 y.o. woman admitted to the MICU for acute hypoxemic respiratory fail ure in setting of moderate ARDS 2/2 metapneumovirus and suspected bilateral pneumonia. Impro ving from respiratory standpoint, having passed SBT since 02/17, with gradual improvement in mental status since then. Neurologic #Sedation Sedation has been barrier to extubation. Significant PSVT at prior attempt. TG downtrending . -Off propofol as of 02/17 at 10:30. RASS goal 0. #Chronic pain - Oxycodone 2.5-5 mg Q4H prn 1st line pain overnight. - Hydromorphone 0.2-0.5 mg IV Q2H PRN overnight. - CPOT goal 0 to +1. - Cont gabapentin 300 mg TID. Cardiovascular #Paroxysmal SVT, Resolved Patient had multiple asymptomatic runs of SVT at the outside hospital which subsided after starting metoprolol 25 mg/bid. Transitioned to coreg on 02/16 for BP control. Pt's episodes have since resolved since starting carvedilol on 02/15. - Carvedilol to 18.75 mg PO BID. #HTN #HFpEF Normotensive on arrival with progressive rise in BP likely due to hypervolemia and improvin g sepsis. Last TTE 10/2017 showed LVEF 65-70% with grade 1 diastolic dysfunction with norm al RV size and function. - Amlodipine 10 mg QDAY (started 02/14). - Carvedilol to 18.75 mg PO BID. - Hold diuresis today as still overall net neg for admission. Respiratory #Acute hypoxemic hypercapnic respiratory failure requiring intubation #ARDS moderate #Metapneumovirus Etiologies: metapneumovirus +/- superimposed bacterial pneumonia with component of hypervol emia from HFpEF in setting of chronic lung disease (moderate asthma). Empirically s/p oselta mivir x 5d course at OSH then treated with IV CTX + azithro x 3d (02/08-02/10) and vancomyci n added 02/10 at [facility]. Pt already with poor baseline pulm function in setting of OLIVIA. Uri ne S. pneumo and legionella ag neg. MRSA nares neg. Completed 7 day abx course (01/12-02/14) . Blood Cx and sputum cx negative. Overall significantly improving PS needs. Has been passin g SBT daily since 02/17, with mentation being largest barrier to extubation. - Neuro status continues to gradually and slowly improve, being able to wiggle bilateral toes/fingers and track eye movements. - Plan for another SBT today. - Plan for NIF today. If more than neg 30, pt has adequate neuro functioning and can tri al extubation. If does not pass, will put back on PSV 10/5 until trial 02/20. - SBT daily. If mentation ok, may extubate to BiPAP. - Nursing to try work on motor exercises. PT already consulted. - Monitor. #OLIVIA - As outlined above. - F/U with RT regarding home CPAP settings to help guide. #Moderate persistent bronchial asthma - Home budesonide BID - Duonebs Q4H rajeev. GI / Nutrition #OG tube - Hold TF this am, for SBT trial. - Plan to increase TF to goal 60 mL/hr post-extubation plans. / Renal # Hypervolemic hypernatremia: Likely 2/2 increase in TF. - Continue free water flushes 250 mL Q4H Infectious Disease See respiratory Hematology / Oncology # Leukocytosis, Resolving: Likely 2/2 stress vs. Borderline infection of pulmonary etiology. Looking less likely 2/2 i nfection (although did previously think about VAP), because of improved opacity on CXR 02/15 and downtrending WBC as of 02/18 with overall improvement. - Monitor. Endocrine #DMII (Last A1c was 10.6mg/dl per outside hospital records): - Cont IV insulin via endotool. - Anticipate transitioning to SC insulin once resp plan stable. RESOLVED/CHRONIC ISSUES: #Non-oligouric NANCY on CKD stage III Baseline Cr 1.3. Etiology: pre-renal in setting of aggressive diuresis from 02/11-02/12. -IV diuresis 02/17. SCr 1.0 -> 1.14. #HLD - Continue atorvastatin 10 mg QDAY. #Depression - Continue sertraline 100 mg QDAY Consultants:Nutrition Feeding: Tube Feeds Analgesia: Oxycodone, Hydromorphone PRN Sedation:None. Rass goal 0. Thromboprophylaxis: LMWH SC Head of Bed: > 30 Ulcer Prophylaxis: H2 shane Glycemic control: IV insulin via Endotool. MobilityGoal:Passive ROM Lines/Tubes/Drains/Airways: PIV x2 (nursing to place another upper extremity PIV), Mendiola, R ectal tube, OG tube, and ETT. Code Status Code Status Full Code Surrogate Decision Maker Documentation: Surrogate Decision Maker Primary Surrogate Decision Maker Latanya Gunter Sister [phone] Secondary Surrogate Decision Maker Mr. Lala Mendoza This patient was staffed with Dr. Sanchez, attending physician. VAN PALMA MD Template created by TABITHA 2017 Gely Thomas MD - 02/18/2018 10:46 PM PDT MICU Attg. Progress Note Overnight Events: still not moving arms/legs, but IS moving head and tracks with eyes. Hospital Day: 7 Code Status: FULL A/P: 62F with ARDS secondary to metapneumovirus, now past the acute phase and in recovery. Main issue is ICU weakness. Neuro: Off of sedation since yesterday and SLOWLY improving. Opens eyes and tracks, but queen sn't follow other commands. Moves head but no other movement. Likely needs some time, but i f not improving over next day, may pursue emg studies. PT/OT when able. CV: Hemodynamically stable. Hypertension and SVT improved on carvedilol. Pulm: Recovering from ARDS. Remains on vent, day 7 ICU stay at [facility]. PSV wean, down to 8/5 now but marginal. Formal SBT in am, her weakness is a concern for extubation. Need to be able to protect her airway, cough up secretions. ID: S/p metapneumovirus Renal: CKD, back to baseline cr. Replete K aggressively while diuresing well. On free water for hypernatremia, 147-->144. GI/Liver: On tube feeds. I examined the patient myself. I have read and agree with the plan as outlined in the ronald alcazar note, except as otherwise noted above. Critical Care Time = 30 min exclusive of procedures. Last Vitals: BP 138/64 | Pulse 99 | Temp 37.4 C (99.3 F) | RR 23 | Ht 1.68 m (5' 6.14") | Wt 156 kg (343 lb 14.7 oz) | SpO2 93% | BMI 55.27 kg/(m^2) 24 Hour Vital Min/Max: Systolic (24hrs), Av , Min:122 , Max:172 Diastolic (24hrs), Av, Min:57, Max:99 Pulse Min: 87 Max: 106 Temp Min: 37.4 C (99.3 F) Max: 37.8 C (100.1 F) Resp Min: 17 Max: 28 SpO2 Min: 92 % Max: 95 % Intake/Output Summary (Last 24 hours) at 02/18/182245 Last data filed at 02/18/182199 Gross per 24 hour Intake 1619 ml Output 5055 ml Net -3436 ml Mechanical Ventilation $ Ventilator Mode - Adult: Pressure Support (02/18/182099) Set VT: 270 ml (02/15/18808) , Ordered mL/K mL/Kg (02/18/182099) Set Rate: 24 bpm (02/15/18808) -- Total Rate: 19 bpm (02/18/182099) VE: 6.2 L/MIN (02/18/182099) PEEP/CPAP: 5 cm H2O (02/18/182099) Current FIO2 (%): 30 fraction of O2 (02/18/182099) SpO2: 93 % (02/18/182199) Last PaO2/FiO2 ratio: Plateau: Plat Press: 13 cm H2O (02/15/18808) Driving Pressure: Driving Pressure (DP): 5 cm H2O (02/15/18808) Current Facility-Administered Medications Medication Dose Route Frequency Provider Last Rate Last Dose acetaminophen (TYLENOL) oral suspension 1,000 mg 1,000 mg feeding tube TID PRN Angel Renee MD 1,000 mg at 02/17/18 1843 albuterol 0.5% (PROVENTIL,VENTOLIN) 2.5 mg/0.5 mL nebulizer solution 2.5 mg 2.5 mg inh alation Q2H PRN Leif Matamoros MD amLODIPine (NORVASC) tablet 10 mg 10 mg feeding tube DAILY Van Palma MD 10 m g at 02/18/18 1009 atorvastatin (LIPITOR) tablet 10 mg 10 mg feeding tube DAILY Fercho Carrasco MD 1 0 mg at 02/18/18 1009 bisacodyl (DULCOLAX) suppository 10 mg 10 mg rectal DAILY PRN Leif Matamoros MD budesonide (PULMICORT) 0.5 mg/2 mL nebulizer suspension 0.5 mg 0.5 mg inhalation BID M farrukh Carrasco MD 0.5 mg at 02/18/182106 carvedilol (COREG) tablet 18.75 mg 18.75 mg feeding tube BID Leif Matamoros MD 18. 75 mg at 02/18/182019 chlorhexidine (PERIDEX) mouthwash 15 mL 15 mL oral Q6H Constanza Byrd MD 15 mL at 07/30 dextrose 5%-NaCl 0.45% IV infusion 5-400 mL intravenous PRN Will Mcclure MD dextrose 50 % in water IV 15-150 mL 15-150 mL intravenous PRN Katelny Rosas enoxaparin (LOVENOX) injection 40 mg 40 mg subcutaneous Q12H (Scheduled) Will Mcclure MD 40 mg at 02/18/182018 famotidine (PEPCID) tablet 20 mg 20 mg feeding tube BID Constanza Byrd MD 20 mg at 2019 gabapentin (NEURONTIN) liquid 300 mg 300 mg feeding tube TID Van Palma MD 30 0 mg at 02/18/182109 glucagon (GLUCAGEN) injection 1 mg 1 mg intramuscular PRN Danette Cole MD glucose chewable tablet 4-40 g 4-40 g oral PRN Will Mcclure MD hydrALAZINE (APRESOLINE) injection 10 mg 10 mg intravenous Q4H PRN Marcela Resendiz MD 10 mg at 02/17/18 0810 HYDROmorphone (DILAUDID) injection 0.5-1.5 mg 0.5-1.5 mg intravenous Q2H PRN Constanza huntley MD insulin regular bolus from continuous infusion 1-50 Units 1-50 Units intravenous NE EDED (BOLUS) Will Mcclure MD insulin regular in NaCl 0.9% IV infusion (1 unit/mL) 0.1-50 Units/hr intravenous ROMARIO NUOUS Will Mcclure MD 4 mL/hr at 02/18/181938 4 Units/hr at 02/18/181938 ipratropium-albuterol (DUO-NEB) nebulizer solution 3 mL 3 mL inhalation Q4H Fercho Carrasco MD 3 mL at 02/18/182029 menthol-zinc oxide (CALAZIME) topical paste 0.2%-16.5% topical QID PRN Angel Renee MD nystatin (MYCOSTATIN) powder topical BID Fercho Carrasco MD oxyCODONE (immediate release) (ROXICODONE) tablet 2.5-5 mg 2.5-5 mg feeding tube Q4H P KAVON Villa MD polyethylene glycol (MIRALAX) packet 34 g 34 g feeding tube TID PRN Katelyn Matias kefir (KEYONNA'S KEFIR) oral BID Van Palma MD senna (SENOKOT) liquid 17.6 mg 10 mL feeding tube BID PRN Van Palma MD sertraline (ZOLOFT) tablet 100 mg 100 mg oral DAILY Van Palma MD 100 mg at 0 02/18/18 1009 white petrolatum-mineral oil-lanolin (LACRILUBE) 83-15 % ophthalmic ointment Both Eye s PRN Van Palma MD Chemistries: Last 72 Hours (or 3 results): Recent Labs 02/16/18 01202/17/18 0403 02/18/18 0343 02/18/18 1659 02/18/18 1855 02/18/18 2108 NA 146* -- 147* -- 144 -- -- -- -- K 4.4 -- 3.8 -- 3.8 -- -- -- -- CL 112* -- 114* -- 111* -- -- -- -- BICARB 27 -- 28 -- 26 -- -- -- -- BUN 49* -- 46* -- 53* -- -- -- -- CR 1.36* -- 1.04 -- 1.14* -- -- -- -- GLU 191* < > 149* < > 148* < > 149* 136* 139* CA 8.4* -- 8.7 -- 8.9 -- -- -- -- MG 2.9* -- 2.7* -- -- -- -- -- -- PO4 3.6 -- 2.8 -- -- -- -- -- -- < > = values in this interval not displayed. CBC with diff last 72 hours (or 3 results) Recent Labs 02/16/18 01202/17/18 0403 02/18/18 0343 WBC 12.62* 13.88* 11.86* HB 13.1 13.2 12.4 HCT 43.4 44.5 40.6 PLT 276 293 314 NEUTROPERC 77.2* 73.2* -- LYMPHPERC 12.6* 13.8* -- MONOPERC 6.5 7.8 -- BASOPERC 0.6 0.6 -- EOSPERC 1.7 2.9 -- Liver Tests: Last 72 hours (or 3 results) Recent Labs 02/16/18 0120 02/17/18 0403 ALB 2.4* 2.3* Up to Last 5 ABGs in 72 hours: No results for input(s): PH, PCO2, PO2, HCO3, WOSIT0SDZ, W6QQQYUJ, R1CNHXOIP, FIO2 in the l ast 72 hours. No results found for: INRPT @lastlactase3@ CBG Result Av.3 Min: 80 Max: 170 LastCBG Intervention: -- (6.5) (02/18/18 0453) Last CBG's POC Lab Results Component Value Date GLU 139 (H) 02/18/2018 GLU 136 (H) 02/18/2018 GLU 149 (H) 02/18/2018 No results found for: CXR Sergio Ta MD - 02/18/2018 9:50 AM PDT MICU ATTENDING PROGRESS NOTE Author: SERGIO SANCHEZ MD Attending Physician: Leif Matamoros MD Patients Hospital Problem List: Active Hospital Problems 1) Pneumonia 2) ARDS (adult respiratory distress syndrome) (HCC) 3) Pneumonia due to human metapneumovirus (hMPV) 4) Severe obesity (BMI >= 40) (HCC) 5) Toxic metabolic encephalopathy 6) SVT (supraventricular tachycardia) (HCC) 7) CKD (chronic kidney disease) 8) HTN (hypertension) Assessment and Plan: I personally performed the marcano elements of the physical examination, and personally formul ated the assessment and plan with the MICU resident and the team. See resident note for irina cisse. Hospital day # 7. Sarah is a 62 y.o. female with ARDS from Metapneumovirus. Neuro: Toxic metabolic encephalopathy, off all sedatives. On Oxycodone Resp: If slight improvement in mental status, will consider extubation to BiPAP. CVS: SVT improved. Increase Coreg. ID: No antibiotics. GI / Hepatology/ Nutrition: On tube feeding. Renal / Electrolytes: I/O goal ~ negative 3128-9018 ml, Hypernatremia improving. Hem-Onc: Leukocytosis resolving Endo: On Insulin drip. Code status/Family: Full code. SERGIO SANCHEZ MD [facility] [address] [place] [address] I spent 33 min in critical care. Current Meds: Current Facility-Administered Medications Medication Dose Route Frequency acetaminophen (TYLENOL) oral suspension 1,000 mg 1,000 mg feeding tube TID PRN albuterol 0.5% (PROVENTIL,VENTOLIN) 2.5 mg/0.5 mL nebulizer solution 2.5 mg 2.5 mg inh alation Q2H PRN amLODIPine (NORVASC) tablet 10 mg 10 mg feeding tube DAILY atorvastatin (LIPITOR) tablet 10 mg 10 mg feeding tube DAILY bisacodyl (DULCOLAX) suppository 10 mg 10 mg rectal DAILY PRN budesonide (PULMICORT) 0.5 mg/2 mL nebulizer suspension 0.5 mg 0.5 mg inhalation BID carvedilol (COREG) tablet 12.5 mg 12.5 mg oral QAM carvedilol (COREG) tablet 18.75 mg 18.75 mg oral QPM chlorhexidine (PERIDEX) mouthwash 15 mL 15 mL oral Q6H dextrose 5%-NaCl 0.45% IV infusion 5-400 mL intravenous PRN dextrose 50 % in water IV 15-150 mL 15-150 mL intravenous PRN docusate sodium liquid 100 mg 100 mg feeding tube BID PRN enoxaparin (LOVENOX) injection 40 mg 40 mg subcutaneous Q12H (Scheduled) famotidine (PEPCID) tablet 20 mg 20 mg feeding tube BID gabapentin (NEURONTIN) liquid 300 mg 300 mg feeding tube TID glucagon (GLUCAGEN) injection 1 mg 1 mg intramuscular PRN glucose chewable tablet 4-40 g 4-40 g oral PRN hydrALAZINE (APRESOLINE) injection 10 mg 10 mg intravenous Q4H PRN HYDROmorphone (DILAUDID) injection 0.2-0.5 mg 0.2-0.5 mg intravenous Q2H PRN insulin regular bolus from continuous infusion 1-50 Units 1-50 Units intravenous NE EDED (BOLUS) insulin regular in NaCl 0.9% IV infusion (1 unit/mL) 0.1-50 Units/hr intravenous ROMARIO NUOUS ipratropium-albuterol (DUO-NEB) nebulizer solution 3 mL 3 mL inhalation Q4H menthol-zinc oxide (CALAZIME) topical paste 0.2%-16.5% topical QID PRN nystatin (MYCOSTATIN) powder topical BID oxyCODONE (immediate release) (ROXICODONE) tablet 2.5-5 mg 2.5-5 mg feeding tube Q4H P RN polyethylene glycol (MIRALAX) packet 34 g 34 g feeding tube TID PRN probiotic kefir (KEYONNA'S KEFIR) oral BID propofol (DIPRIVAN) bolus from continuous infusion 10-20 mg 10-20 mg intravenous Q15MI N PRN propofol (DIPRIVAN) injection 0.5-50 mcg/kg/min (Dosing Weight) intravenous CONTINUOUS senna (SENOKOT) liquid 17.6 mg 10 mL feeding tube BID sertraline (ZOLOFT) tablet 100 mg 100 mg oral DAILY white petrolatum-mineral oil-lanolin (LACRILUBE) 83-15 % ophthalmic ointment Both Eye s PRN Physical Exam: BP 158/69 | Pulse 98 | Temp 37.8 C (100.1 F) | RR 24 | Ht 1.68 m (5' 6.14") | Wt 156 kg (343 lb 14.7 oz) | SpO2 92% | BMI 55.27 kg/(m^2) Systolic (24hrs), Av , Min:122 , Max:166 Diastolic (24hrs), Av, Min:56, Max:73 Pulse Av.2 Min: 87 Max: 104 Temp Av.6 C (99.6 F) Min: 37.3 C (99.1 F) Max: 37.8 C (100.1 F) Resp Av.8 Min: 16 Max: 30 SpO2 Av.6 % Min: 92 % Max: 97 % Intake/Output Summary (Last 24 hours) at 02/18/1850 Last data filed at 02/18/18811 Gross per 24 hour Intake 2398.17 ml Output 4400 ml Net -2001.83 ml Intake/Output Summary (since admission) at 02/11/18 001 Last data filed at 02/18/18811 Gross for the last 7 days Intake 40417.01 ml Output 96106 ml Net since Admission -08870.99 ml Mechanical Ventilation [place] body weight: 59.6 kg (131 lb 7.2 oz) Adjusted ideal body weight: 98.2 kg (216 lb 7 oz) $ Ventilator Mode - Adult: Pressure Support (02/18/18834) Set VT: 270 ml (02/15/18808) , Ordered mL/K.5 mL/Kg (02/15/18402) Set Rate: 24 bpm (02/15/18808) -- Total Rate: 25 bpm (02/18/18834) VE: 9.4 L/MIN (02/18/18834) PEEP/CPAP: 5 cm H2O (02/18/18834) Current FIO2 (%): 30 fraction of O2 (02/18/18834) SpO2: 92 % (02/18/18834) Last PaO2/FiO2 ratio: Plateau: Plat Press: 13 cm H2O (02/15/18808) Driving Pressure: Driving Pressure (DP): 5 cm H2O (02/15/18808) PAO2/FIO2 RATIO Date/Time Value Ref Range Status 02/13/2018 09:39 PM 158 (L) >300 mmHg Final 02/13/2018 11:05 AM 198 (L) >300 mmHg Final 02/13/2018 05:29 AM 148 (L) >300 mmHg Final 02/13/2018 01:34 AM 134 (L) >300 mmHg Final 02/12/2018 07:11 PM 108 (L) >300 mmHg Final 02/12/2018 10:24 AM 160 (L) >300 mmHg Final 02/12/2018 06:31 AM 175 (L) >300 mmHg Final Lab Results Component Value Date PH 7.45 (H) 02/14/2018 PCO2 44 (H) 02/14/2018 PO2 64 (L) 02/14/2018 HCO3 30 (H) 02/14/2018 [id number] 94.2 02/14/2018 FIO2 0.40 02/13/2018 [id number] 158 (L) 02/13/2018 Lab Results Component Value Date VBGEXCESS 0.4 02/15/2018 VBGPH 7.34 (L) 02/15/2018 VBGPCO2 49 02/15/2018 VBGPO2 61 (H) 02/15/2018 VBGHCO3 26 02/15/2018 Up to Last 5 ABGs in 72 hours: No results for input(s): PH, PCO2, PO2, HCO3, WXJXV2XPL, J2SIAIMQ, G2BSAMYNN, FIO2 in the l ast 72 hours. Lab Results Component Value Date PH 7.45 (H) 02/14/2018 PH 7.46 (H) 02/13/2018 PH 7.33 (L) 02/13/2018 PH 7.34 (L) 02/13/2018 PH 7.34 (L) 02/13/2018 PH 7.35 (L) 02/12/2018 PCO2 44 (H) 02/14/2018 PCO2 42 02/13/2018 PCO2 56 (H) 02/13/2018 PCO2 55 (H) 02/13/2018 PCO2 56 (H) 02/13/2018 PCO2 54 (H) 02/12/2018 PO2 64 (L) 02/14/2018 PO2 63 (L) 02/13/2018 PO2 79 02/13/2018 PO2 74 02/13/2018 PO2 67 (L) 02/13/2018 PO2 65 (L) 02/12/2018 HCO3 30 (H) 02/14/2018 HCO3 30 (H) 02/13/2018 HCO3 29 (H) 02/13/2018 HCO3 29 (H) 02/13/2018 HCO3 29 (H) 02/13/2018 HCO3 29 (H) 02/12/2018 O4VIWYEQ 94.2 02/14/2018 X1NHIYTY 93.2 02/13/2018 V0HPWIQK 96.3 02/13/2018 O9XNBWRL 95.3 02/13/2018 L4FXRVKB 94.0 02/13/2018 W4LTECOZ 91.6 (L) 02/12/2018 FIO2 0.40 02/13/2018 FIO2 0.40 02/13/2018 FIO2 0.50 02/13/2018 FIO2 0.50 02/13/2018 FIO2 0.60 02/12/2018 FIO2 0.40 02/12/2018 VZR5RPI5 158 (L) 02/13/2018 BRC1FYA9 198 (L) 02/13/2018 EMD2ZWT3 148 (L) 02/13/2018 IQP3ISE4 134 (L) 02/13/2018 XHU6ZAE5 108 (L) 02/12/2018 YYG5ZJW8 160 (L) 02/12/2018 Recent Labs 02/11/18 0036 02/15/18 0401 02/16/18 0120 02/17/18 0403 02/18/18 0343 02/18/18 0811 02/18/18 0925 02/18/18 0928 NA 135* < > 145 < > 146* -- 147* -- 144 -- -- -- -- K 4.5 < > 4.4 < > 4.4 -- 3.8 -- 3.8 -- -- -- -- CL 103 < > 110* < > 112* -- 114* -- 111* -- -- -- -- BICARB 23 < > 27 < > 27 -- 28 -- 26 -- -- -- -- BUN 29* < > 32* < > 49* -- 46* -- 53* -- -- -- -- CR 1.23* < > 1.50* < > 1.36* -- 1.04 -- 1.14* -- -- -- -- GLU 158* < > 152* < > 191* < > 149* < > 148* < > 127* 80 136* CA 7.6* < > 7.9* < > 8.4* -- 8.7 -- 8.9 -- -- -- -- AST 40 -- -- -- -- -- -- -- -- -- -- -- -- ALT 22 -- -- -- -- -- -- -- -- -- -- -- -- AP 59 -- -- -- -- -- -- -- -- -- -- -- -- TBILI 0.5 -- -- -- -- -- -- -- -- -- -- -- -- TP 6.4 -- -- -- -- -- -- -- -- -- -- -- -- ALB 2.6* < > 2.2* -- 2.4* -- 2.3* -- -- -- -- -- -- ANIONGAP 9 < > 8 < > 7 -- 5 -- 7 -- -- -- -- ANIONALBCOR 12* < > 12* -- 11 -- 9 -- -- -- -- -- -- < > = values in this interval not displayed. CBC with diff last 72 hours (or 3 results) - Refreshable Recent Labs 02/16/18 0120 02/17/18 0403 02/18/18 0343 WBC 12.62* 13.88* 11.86* HB 13.1 13.2 12.4 HCT 43.4 44.5 40.6 PLT 276 293 314 NEUTROPERC 77.2* 73.2* -- LYMPHPERC 12.6* 13.8* -- MONOPERC 6.5 7.8 -- BASOPERC 0.6 0.6 -- EOSPERC 1.7 2.9 -- No results found for: APTT, FIBRINOGEN No results found for: [id number] No results found for: URICACID No results found for: FREET4, TSH, TPOAB, THYROGLOB, THYROGLOBAB, N8BPZEG No results found for: IRON, IRONBINDCAP, SATTRANSFERR, FERRITIN No results found for: CK Lab Results Component Value Date TROPONIN <0.02 02/11/2018 Lab Results Component Value Date NTPROBNP 2,080 02/11/2018 No results found for: LIPASE No results found for: AMYLASEPLAS Lab Results Component Value Date VANCOTROUGH 29.3 (H) 02/12/2018 Lab Results Component Value Date LACTICACID 1.1 02/11/2018 Lab Results Component Value Date MG 2.7 (H) 02/17/2018 MG 2.9 (H) 02/16/2018 MG 2.6 02/15/2018 MG 2.6 02/15/2018 MG 2.2 02/14/2018 Lab Results Component Value Date PO4 2.8 02/17/2018 PO4 3.6 02/16/2018 PO4 4.0 02/15/2018 PO4 2.0 (L) 02/14/2018 PO4 3.4 02/13/2018 Lab Results Component Value Date CR 1.14 (H) 02/18/2018 CR 1.04 02/17/2018 CR 1.36 (H) 02/16/2018 CR 1.38 (H) 02/15/2018 CR 1.50 (H) 02/15/2018 No results found for: URICACID No results found for: FK506 No results found for: INRPT Lab Results Lab Test Name Results Date/Time QTCB 497 02/14/18 QTCB 468 02/11/18 QTCB 474 02/11/18 Results for orders placed or performed during the hospital encounter of 02/11/18 12 LEAD ECG Result Value Ref Range VENTRICULAR RATE 123 bpm ATRIAL RATE 57 ms P-R INTERVAL 163 ms P AXIS 44 deg QRS DURATION 77 ms QT 347 ms QTCB 497 ms R AXIS 268 deg T AXIS 51 deg ECG IMPRESSION Sinus tachycardia ECG IMPRESSION Atrial premature complexes with aberrant conduction ECG IMPRESSION Low voltage, precordial leads ECG IMPRESSION Anteroseptal infarct, old- ABNORMAL ECG - ECG IMPRESSION Electronically signed by: SHAHAB RENNER 02-16-2018 08:21:03 No results found for: RVSP No results found for: URINECOLOR, URAPPEARANCE, URINELE, URINENITRITE, URINEUROBILI, URINEP ROTEIN, URINEPH, URINEBLOOD, URSPECGRAV, URINEKETONES, URINEBILI, URINEGLUCOSE No results found for: URINEAMPPHOS, URINEBACTERI, URINECAOX, URINECAST, URINECLUE, URINEGRA NCAS, URINEHYALINE, URINEMUCOUS, URINEEPITH, URINEREDCELL, URINESQEPI, URINEPO4, URINEWBC, U RINEYEAST X-ray Chest 1 View Result Date: 02/13/2018 EXAM: CHEST 1 VIEW HISTORY: Hypoxemia. Evaluate endotracheal tube. COMPARISON: 02/12/18, 02/11/18 FINDINGS: The endotracheal tube is unchanged in position, terminating 5 cm above the jim. Enteric tube courses below the diaphragm and terminates outside the field of view. Evaluation of the lungs is somewhat limited due to large amount of overlying soft tissue. There is persistent left lower lobe retrocardiac consolidation, overall similar compared wit h 02/11/18. There is right infrahilar consolidative opacity, relatively similar to prior. Pa tchy opacity in the right upper lobe has decreased in conspicuity. No large pleural effusio n or pneumothorax is evident. The cardiomediastinal silhouette is stable, given differences in technique. IMPRESSION: Dense retrocardiac opacification and nodular right infrahilar opacities most suggestive of aspiration or pneumonia. I have personally reviewed the images and, if necessary, edited the report. I agree with t he report as now presented. X-ray Portable Chest 1 View Result Date: 02/15/2018 EXAM: ME CHEST 1 VIEW 02/15/18 06:12:20 HISTORY: Worsening hypoxia COMPARISON: Yesterday FINDINGS: The support equipment is unchanged. The cardiomediastinal silhouette is stable. Right lung groundglass is unchanged. There is minimally improved left lower lobe atelectasis. There is no pneumothorax. IMPRESSION: Minimal improvement left lower lobe consolidation likely combination of atelectasis and pos sible aspiration. I have personally reviewed the images and, if necessary, edited the report. I agree with t he report as now presented. X-ray Portable Chest 1 View Result Date: 02/14/2018 EXAM: ME CHEST 1 VIEW HISTORY: Fever of unknown origin. COMPARISON: 02/13/2018. FINDINGS: Endotracheal tube tip terminates 4 cm above the jim. Enteric tube courses below the diap hragm, out of the ialhy-og-dufn. Cardiomediastinal contour is stable. Increased, dense retro cardiac consolidation. Right infrahilar opacity and right lung groundglass is not significan tly changed. No large pleural effusion or pneumothorax. IMPRESSION: Increased dense retrocardiac and stable infrahilar opacification, most likely aspiration or developing pneumonia. I have personally reviewed the images and, if necessary, edited the report. I agree with t he report as now presented. X-ray Portable Chest 1 View Result Date: 02/12/2018 STUDY: ME CHEST 1 VIEW HISTORY: Endotracheal tube placement. COMPARISON: February 11, 2018 FINDINGS: The patient is imaged in prone position, limiting assessment of the lungs. The endotracheal tube terminates at the level of the clavicles, approximately 6.7 cm above the jim. The t ransesophageal sump tube terminates off the vddpv-ca-suia. Lung opacities are mostly obscure d. IMPRESSION: Endotracheal tube terminates in the high trachea, 6.7 cm above the jim. I have personally reviewed the images and, if necessary, edited the report. I agree with t he report as now presented. X-ray Portable Chest 1 View Result Date: 02/11/2018 STUDY: Portable chest radiograph HISTORY: Intubated COMPARISON: 02/10/2018 FINDINGS: Endotracheal tube tip terminates approximately 5 cm above the jim. An enteric tube trave ls caudally beyond the enzax-gf-ckxn. Low lung volumes. Unchanged appearance of the cardiome diastinal silhouette which is partially obscured by the bilateral diffuse airspace opacities . No large pneumothorax. Probable small bilateral pleural effusions. The distribution of the air space opacities have not significantly changed. No acute osseous abnormalities. IMPRESSION: Redemonstration of diffuse bilateral extensive patchy airspace opacities. Enteric tube tip terminates approximately 5 cm above the jim. I have personally reviewed the images and, if necessary, edited the report. I agree with t he report as now presented. No results found for: CTCHEST No results found for: ABD No results found for: CTHEAD CULTURE RESULT Date Value Ref Range Status 02/14/2018 Preliminary No growth to date. 02/14/2018 Preliminary No growth to date. 02/11/2018 Final Final Report:No Bacteria or Yeast isolated at 5 days. 02/11/2018 Final Final Report:No Bacteria or Yeast isolated at 5 days. Last Drug Screen: No results found for: AMPHETAMINES, METHAMPHETAM, BARBITURATE, BENZO, CA NNABIS, COCAINE, ETOH, ETHANOL, OPIATE, ORGBASES, OXYCODONE, METHADONE Van Saucedo MD - 0 02/18/2018 6:07 AM PDT [facility] MEDICAL ICU - PROGRESS NOTE Hospital Day: 7 | ICU Day: 8 ID/CC: Sarah Reeves is a 62 y.o. woman admitted to the MICU for acute hypoxemic respirato ry failure in setting of moderate ARDS 2/2 metapneumovirus and suspected bilateral pneumonia . Consultants: Nutrition 24 Hour Events: -Passed SBT trial 02/17. Mentation is major barrier to extubation. -Decreased oxy and dilaudid doses. -Afebrile overnight (borderline, Tmax 100.1F). -IV lasix 40 mg x1. No hypotension, SBPs more 140s-150s. Subjective: -Pt off sedation, will open eyes to physical stimuli, but unable to ascertain any pain. Vital Signs: Cuff BP 158/69 (02/18/18799) | BP Min: 122/57 Max: 166/63 Cuff MAP 95 mmHg (02/18/18799) | BP Mean Min: 76 mmHg Max: 97 mmHg Art Line BP | No Data Recorded Art Line MAP | No Data Recorded HR 98 (02/18/18834) | Pulse Min: 87 Max: 104 | Cardiac Rhythm: Regular (02/18/18799) Temp 37.8 C (100.1 F) (02/18/18799) | Temp Min: 37.3 C (99.1 F) Max: 37.8 C ( 100.1 F) RR 24 (02/18/18799) | Resp Min: 16 Max: 30 SpO2 92 % (02/18/18834) | SpO2 Min: 92 % Max: 97 % O2 Device Endotracheal tube (02/18/18799) | Pressure Support (02/18/18834) Ventilator Settings PSV: PSV: 10 cm H2O PEEP Set: 5 cm H2O RR: 24 bpm FiO2: 30 fraction of O2 Observed Ventilation Vex: Mandatory 350 ml | Spontaneous 390 ml [place] BW: 59.6 kg RR: 25 bpm Minute Ventilation: 9.4 L/MIN SpO2: 92 % Ventilator Diagnostics (Past 24 hrs) Pplat | Driving Pressure Total PEEP | AutoPEEP SBT Assessed Yes (02/17/18 1253) | SBT Outcome Pass SBT, ready for extubation (02/17/18 135 1) Cam/RASS Flowsheet Row Most Recent Value CAM (Confusion Assessment Method) Positive (probable delirium) RASS Scale -3 [not receiving sedation] CPOT 0 (02/18/18799) Intake/Output Summary (Last 24 hours) at 02/18/18 0700 Last data filed at 02/18/18 0455 Gross per 24 hour Intake 2542.83 ml Output 3510 ml Net -967.17 ml Intake/Output Summary (since admission) at 02/11/18 0012 Last data filed at 02/18/18 0455 Gross for the last 7 days Intake 29471.36 ml Output 83647 ml Net since Admission -9893.64 ml BMI: 57.5 Weights 156 kg (343 lb 14.7 oz) (02/17/18 1100) 162 kg (357 lb 2.3 oz) (02/11/18 0054) Admit Wt: 162 kg (357 lb 2.3 oz) Physical Exam: GENERAL: Obese female, intubated, off sedation. CARDIAC: RRR. No m/r/g. RESPIRATORY: Coarse mech vent breath sounds bilaterally. ABDOMEN: soft, obese abd. Normoactive bowel sounds. EXTREMITIES: trace/1+ pitting edema to BLE. NEUROLOGICAL: Sedated and intubated and proned. SKIN: Skin normal color, texture and turgor with no lesions or eruptions. LINES/TUBES: L foot PIV, RUE PIV; R wrist PIV; ETT; Mendiola; OG tube. Laboratories: Recent Labs 02/15/18 0958 VBGPH 7.34* VBGPCO2 49 VBGHCO3 26 Recent Labs 02/16/18 0120 02/17/18 0403 02/18/18 0343 WBC 12.62* 13.88* 11.86* HB 13.1 13.2 12.4 HCT 43.4 44.5 40.6 MCV 92.3 92.5 89.0 PLT 276 293 314 NEUTROPHILCO 9.75* 10.16* -- LYMPHSABS 1.59 1.92 -- MONOCYTECO 0.82 1.08* -- EOSCO 0.21 0.40 -- BASOPHILCO 0.07 0.09 -- IMGRANABS 0.18* 0.23* -- No results for input(s): INRPT, APTT, FIBRINOGEN in the last 720 hours. Recent Labs 02/15/18 1319 02/16/18 0120 02/17/18 0403 02/18/18 0343 NA 141 146* 147* 144 K 4.9 4.4 3.8 3.8 CL 108 112* 114* 111* BICARB 24 27 28 26 BUN 41* 49* 46* 53* CR 1.38* 1.36* 1.04 1.14* CA 7.8* 8.4* 8.7 8.9 MG 2.6 2.9* 2.7* -- PO4 -- 3.6 2.8 -- ANIONGAP 9 7 5 7 Recent Labs 02/18/18 0119 02/18/18 0223 02/18/18 0342 02/18/18 0343 02/18/18 0453 02/18/18 0601 02/18/18 0706 02/18/18 0811 GLU 136* 126* 149* 148* 157* 170* 151* 127* Recent Labs 02/16/18 0120 02/17/18 0403 ALB 2.4* 2.3* Lab Orders - In Process (Through next 24h) Start Ordered 02/14/18 0845 CULTURE, BLOOD BACTI & YEAST ONCE 02/14/18 0836 02/14/18 0845 CULTURE, BLOOD BACTI & YEAST ONCE 02/14/18 0836 Microbiology: Sputum Cx from ETT (02/14/2018): 1+ oral francisco. Rare squams; no PMNs, no orgs. BCx (02/14/2018): NGTD x2. RVP (02/11/2018): positive metanpneumovirus. BCx (02/11/2018): NGTD Urine S. Pneumonia Ag (02/11/2018): negative. Urine Legionella Ag (02/11/2018): negative. Sputum Cx from ETT (02/11/2018): NGTD. No squams, mod PMNs, no orgs. MSSA/MRSA Nares (02/11/2018):neg. Imaging: CXR 02/15/2018: Minimal improvement left lower lobe consolidation likely combination of atelectasis and pos sible aspiration. CXR 02/14/2018: Increased dense retrocardiac and stable infrahilar opacification, most likely aspiration or developing pneumonia. CXR 02/13/2018: obtained post-supination Dense retrocardiac opacification and nodular right infrahilar opacities most suggestive of aspiration or pneumonia. CXR 02/12/2018: Endotracheal tube terminates in the high trachea, 6.7 cm above the jim. Abd XR Feeding Tube Eval 02/12/2018: Of note, the patient is prone, and images have not been corrected. An orogastric tube is id entified terminating below the diaphragm likely within the body of the stomach. CXR 02/10/2018: 1. Redemonstration of diffuse bilateral extensive patchy airspace opacities. 2. Enteric tube tip terminates approximately 5 cm above the jim. EKG/Echocardiogram: none. Current Facility-Administered Medications Medication Dose Route Frequency Last Rate insulin regular in NaCl 0.9% IV infusion (1 unit/mL) 0.1-50 Units/hr intravenous ROMARIO NUOUS 3 Units/hr (02/18/18 0812) propofol (DIPRIVAN) injection 0.5-50 mcg/kg/min (Dosing Weight) intravenous CONTINUOUS Stopped (02/17/18 1030) Current Facility-Administered Medications Medication Dose Route Frequency Last Rate amLODIPine (NORVASC) tablet 10 mg 10 mg feeding tube DAILY atorvastatin (LIPITOR) tablet 10 mg 10 mg feeding tube DAILY budesonide (PULMICORT) 0.5 mg/2 mL nebulizer suspension 0.5 mg 0.5 mg inhalation BID carvedilol (COREG) tablet 12.5 mg 12.5 mg oral QAM carvedilol (COREG) tablet 18.75 mg 18.75 mg oral QPM chlorhexidine (PERIDEX) mouthwash 15 mL 15 mL oral Q6H enoxaparin (LOVENOX) injection 40 mg 40 mg subcutaneous Q12H (Scheduled) famotidine (PEPCID) tablet 20 mg 20 mg feeding tube BID gabapentin (NEURONTIN) liquid 300 mg 300 mg feeding tube TID ipratropium-albuterol (DUO-NEB) nebulizer solution 3 mL 3 mL inhalation Q4H nystatin (MYCOSTATIN) powder topical BID probiotic kefir (KEYONNA'S KEFIR) oral BID senna (SENOKOT) liquid 17.6 mg 10 mL feeding tube BID sertraline (ZOLOFT) tablet 100 mg 100 mg oral DAILY Current Facility-Administered Medications Medication Dose Route Frequency Last Rate acetaminophen (TYLENOL) oral suspension 1,000 mg 1,000 mg feeding tube TID PRN albuterol 0.5% (PROVENTIL,VENTOLIN) 2.5 mg/0.5 mL nebulizer solution 2.5 mg 2.5 mg inh alation Q2H PRN bisacodyl (DULCOLAX) suppository 10 mg 10 mg rectal DAILY PRN dextrose 5%-NaCl 0.45% IV infusion 5-400 mL intravenous PRN dextrose 50 % in water IV 15-150 mL 15-150 mL intravenous PRN docusate sodium liquid 100 mg 100 mg feeding tube BID PRN glucagon (GLUCAGEN) injection 1 mg 1 mg intramuscular PRN glucose chewable tablet 4-40 g 4-40 g oral PRN hydrALAZINE (APRESOLINE) injection 10 mg 10 mg intravenous Q4H PRN HYDROmorphone (DILAUDID) injection 0.2-0.5 mg 0.2-0.5 mg intravenous Q2H PRN insulin regular bolus from continuous infusion 1-50 Units 1-50 Units intravenous NE EDED (BOLUS) menthol-zinc oxide (CALAZIME) topical paste 0.2%-16.5% topical QID PRN oxyCODONE (immediate release) (ROXICODONE) tablet 2.5-5 mg 2.5-5 mg feeding tube Q4H P RN polyethylene glycol (MIRALAX) packet 34 g 34 g feeding tube TID PRN propofol (DIPRIVAN) bolus from continuous infusion 10-20 mg 10-20 mg intravenous Q15MI N PRN white petrolatum-mineral oil-lanolin (LACRILUBE) 83-15 % ophthalmic ointment Both Eye s PRN Assessment & Plan: Sarah Reeves is a 62 y.o. woman admitted to the MICU for acute hypoxemic respiratory fail ure in setting of moderate ARDS 2/2 metapneumovirus and suspected bilateral pneumonia. Impro ving from respiratory standpoint, having passed SBT 02/17, but mentation major barrier to ex tubation. Neurologic #Sedation Sedation has been barrier to extubation. Significant PSVT at prior attempt. TG downtrending . -Off propofol as of 02/17 at 10:30. RASS goal 0. #Chronic pain - Decreased oxycodone 2.5-5 mg Q4H prn 1st line pain overnight. - Decreased Hydromorphone 0.2-0.5 mg IV Q2H PRN overnight. - CPOT goal 0 to +1. - Cont gabapentin 300 mg TID. Cardiovascular #Paroxysmal SVT Patient had multiple asymptomatic runs of SVT at the outside hospital which subsided after starting metoprolol 25 mg/bid. Transitioned to coreg on 02/16 for BP control. - Increase carvedilol to 18.75 mg PO BID (started lower dose 02/15) . #HTN #HFpEF Normotensive on arrival with progressive rise in BP likely due to hypervolemia and improvin g sepsis. Last TTE 10/2017 showed LVEF 65-70% with grade 1 diastolic dysfunction with norm al RV size and function. - Amlodipine 10 mg QDAY (started 02/14). - Increase carvedilol to 18.75 mg PO BID (started lower dose 02/15). - IV lasix 40 mg x1 + 40 KCl on 02/18. -Goal net neg 0.5-1.0 L. Respiratory #Acute hypoxemic hypercapnic respiratory failure requiring intubation #ARDS moderate #Metapneumovirus Etiologies: metapneumovirus +/- superimposed bacterial pneumonia with component of hypervol emia from HFpEF in setting of chronic lung disease (moderate asthma). Empirically s/p oselta mivir x 5d course at OSH then treated with IV CTX + azithro x 3d (02/08-02/10) and vancomyci n added 02/10 at [facility]. Pt already with poor baseline pulm function in setting of OLIVIA. Uri ne S. pneumo and legionella ag neg. MRSA nares neg. Completed 7 day abx course (01/12-02/14) . Blood Cx and sputum cx negative. Overall significantly improving PS needs. - Unlikely with underlying newly-developing pneumonia, given improvement in opacity 04/29 and downtrending WBCs as of 02/18, along with persistent improvements from respiratory standpoint. - SBT daily. If mentation ok, might extubate to BiPAP. - Monitor. #OLIVIA - As outlined above. - F/U with RT regarding home CPAP settings to help guide. #Moderate persistent bronchial asthma - Home budesonide BID - Duonebs Q4H rajeev. GI / Nutrition #OG tube - Cont TF at goal 35 mL/hr per nutrition. - Hold TF 1 hour prior to SBT. - Plan to increase TF to goal 60 mL/hr post-extubation plans. / Renal # Hypervolemic hypernatremia: Likely 2/2 increase in TF. - Continue free water flushes 250 mL Q4H Infectious Disease See respiratory Hematology / Oncology # Leukocytosis: Likely 2/2 stress vs. Borderline infection of pulmonary etiology. Looking less likely 2/2 i nfection (although did previously think about VAP), because of improved opacity on CXR 04/06 and downtrending WBC as of 02/18 with overall improvement. - Monitor. Endocrine #DMII (Last A1c was 10.6mg/dl per outside hospital records): - Cont IV insulin via endotool. - Anticipate transitioning to SC insulin once resp plan stable. RESOLVED/CHRONIC ISSUES: #Non-oligouric NANCY on CKD stage III Baseline Cr 1.3. Etiology: pre-renal in setting of aggressive diuresis from 02/11-02/12. -IV diuresis 02/17. SCr 1.0 -> 1.14. #HLD - Continue atorvastatin 10 mg QDAY. #Depression - Continue sertraline 100 mg QDAY Consultants:Nutrition Feeding: Tube Feeds Analgesia: Oxycodone, Hydromorphone PRN Sedation:None Thromboprophylaxis: LMWH SC Head of Bed: > 30 Ulcer Prophylaxis: H2 shane Glycemic control: Endotool. MobilityGoal:Bed rest. Lines/Tubes/Drains/Airways: L foot PIV, RUE PIV, R wrist PIV, Mendiola, Rectal tube, OG tube, and ETT Code Status Code Status Full Code Surrogate Decision Maker Documentation: Surrogate Decision Maker Primary Surrogate Decision Maker Latanya Gunter Sister [phone] Secondary Surrogate Decision Maker Mr. Lala Mendoza This patient was staffed with Dr. Sanchez, attending physician. VAN PALMA MD Template created by [facility] 2017 Ron Friedman MD - 02/17/2018 8:48 PM PDT MICU Attending Note I have rounded with the critical care team and personally reviewed Sarah Reeves's availab le data, including medical history, significant events, physical examination and test result s. I agree with the MICU team's assessment and documentation and have participated in the cr eation of today's plan of care, with additions or exceptions as noted. Ht 1.68 m (5' 6.14"), Wt 156 kg (343 lb 14.7 oz), BP 157/66, Pulse 91, Temperature 37.8 C (100 F), RR 22, SpO2 93%, BMI 55.27 kg/(m^2). Body mass index is 55.27 kg/m. Lab Results Component Value Date PH 7.45 (H) 02/14/2018 PCO2 44 (H) 02/14/2018 PO2 64 (L) 02/14/2018 HCO3 30 (H) 02/14/2018 O6DPESDI 94.2 02/14/2018 FIO2 0.40 02/13/2018 [id number] 158 (L) 02/13/2018 Critical Diagnoses Hypoxic resp failure ARDS moderate Chronic pain metapneumovirus PNA Asthma OLIVIA Obesity pEFHF Anemia NOS NANCY Febrile Frequent PACs HTN Assessment/Plan PS ventilation, weaning support; MS still the rate-limiting step Completed Ceftriaxone course Amlodipine and coreg for HTN Diuresis 1-2L negative Propofol for sedation/pain with oxycodone; also on home gabapentin Continue home SSRI Insulin gtt Ron Meeks MD, MA [employer] Development Engineer Division of Pulmonary & Critical Care Medicine Pager: [phone] Critical Care Time: I spent 16 minutes in the care and magagement of this patient who is cr itically ill (managing issues that acutely impair one or more vital organ systems such that there is a high probability of imminent or life threatening deterioration in the patient's c ondition). Jones Blum MD - 02/17/2018 11:47 AM PDTFormatting of this note might be different from the [facility]. [facility] Attending Note Hospital Admission Date: 02/11/2018 Hospital Day: 6 ID: Sarah Reeves is a 62 y.o. female s/p ARDS 2/2 metapneumovirus. 24 Hour Events: Uneventful night No addl runs of SVT since starting coreg Not yet mentating - remains primary barrier to extubation 24 Hour Net IO = +800 ml ASSESSMENT/PLAN: Active Diagnoses: #. ARDS, moderate, resolved //passed SBT from pulm standpoint, but not following commands //rass goal 0, hold propofol //Mentation is primary extubation barrier at this point. //habitus may necessitate extubation to cpap/bipap //io goal neg 1 L #. Encephalopathy #. Metapneumovirus URI #. Fevers, resolved #. Morbid Obesity #. CKD #. DM2 #. HTN //on amlodipine #. SVT //cont coreg #. Hypernatremia //increase free water ICU Bundle: #. Nutrition: TF #. Mobility Plan: prom #. Lines: ett, ng, piv, mendiola, rectal tube #. DVT: enox #. GI: famotidine #. Glycemic Control: endotool ATTESTATION: I evaluated the patient at the bedside with the MICU team. Please see their n ote for a detailed rounding summary. I reviewed the documented findings, relevant data, and recent imaging. I agree with the assessment and plan as described in the resident's note w ith the following exceptions/additions as noted above. I spent a total of 45 minutes in the care and management, not including procedural time, of this patient who is critically ill. Leif Matamoros MD [facility] [address] [place] [address] Constanza Reilly MD - 02/17/2018 6:30 AM PDT MEDICAL ICU PROGRESS NOTE Author: CONSTANZA BYRD MD Attending Physician: Leif Matamoros MD Hospital Day: 6 ID: Sarah Reeves is a 62 y.o. woman admitted to the MICU for acute hypoxemic respiratory fail ure in setting of moderate ARDS 2/2 metapneumovirus and suspected bilateral pneumonia. 24 Hour Events: - No acute events overnight: remained on PS 12/8 Subjective - Unable to obtain. Current Facility-Administered Medications Medication Dose Route Frequency acetaminophen (TYLENOL) oral suspension 1,000 mg 1,000 mg feeding tube TID PRN albuterol 0.5% (PROVENTIL,VENTOLIN) 2.5 mg/0.5 mL nebulizer solution 2.5 mg 2.5 mg inh alation Q2H PRN amLODIPine (NORVASC) tablet 10 mg 10 mg feeding tube DAILY atorvastatin (LIPITOR) tablet 10 mg 10 mg feeding tube DAILY bisacodyl (DULCOLAX) suppository 10 mg 10 mg rectal DAILY PRN budesonide (PULMICORT) 0.5 mg/2 mL nebulizer suspension 0.5 mg 0.5 mg inhalation BID carvedilol (COREG) tablet 12.5 mg 12.5 mg oral BID W/MEALS chlorhexidine (PERIDEX) mouthwash 15 mL 15 mL oral Q6H dextrose 5%-NaCl 0.45% IV infusion 5-400 mL intravenous PRN dextrose 50 % in water IV 15-150 mL 15-150 mL intravenous PRN docusate sodium liquid 100 mg 100 mg feeding tube BID PRN enoxaparin (LOVENOX) injection 40 mg 40 mg subcutaneous Q12H (Scheduled) famotidine (PEPCID) tablet 20 mg 20 mg feeding tube BID gabapentin (NEURONTIN) liquid 300 mg 300 mg feeding tube TID glucagon (GLUCAGEN) injection 1 mg 1 mg intramuscular PRN glucose chewable tablet 4-40 g 4-40 g oral PRN hydrALAZINE (APRESOLINE) injection 10 mg 10 mg intravenous Q4H PRN HYDROmorphone (DILAUDID) injection 0.5-1.5 mg 0.5-1.5 mg intravenous Q2H PRN insulin regular bolus from continuous infusion 1-50 Units 1-50 Units intravenous NE EDED (BOLUS) insulin regular in NaCl 0.9% IV infusion (1 unit/mL) 0.1-50 Units/hr intravenous ROMARIO NUOUS ipratropium-albuterol (DUO-NEB) nebulizer solution 3 mL 3 mL inhalation Q4H menthol-zinc oxide (CALAZIME) topical paste 0.2%-16.5% topical QID PRN nystatin (MYCOSTATIN) powder topical BID oxyCODONE (immediate release) (ROXICODONE) tablet 5-10 mg 5-10 mg feeding tube Q4H PRN polyethylene glycol (MIRALAX) packet 34 g 34 g feeding tube TID PRN probiotic kefir (KEYONNA'S KEFIR) oral BID propofol (DIPRIVAN) bolus from continuous infusion 10-20 mg 10-20 mg intravenous Q15MI N PRN propofol (DIPRIVAN) injection 0.5-50 mcg/kg/min (Dosing Weight) intravenous CONTINUOUS senna (SENOKOT) liquid 17.6 mg 10 mL feeding tube BID sertraline (ZOLOFT) tablet 100 mg 100 mg oral DAILY white petrolatum-mineral oil-lanolin (LACRILUBE) 83-15 % ophthalmic ointment Both Eye s PRN Physical Exam: BP 162/77 | Pulse 93 | Temp 37.5 C (99.5 F) | RR 22 | Ht 1.68 m (5' 6.14") | Wt 162 kg (357 lb 2.3 oz) | SpO2 96% | BMI 57.4 kg/(m^2) Systolic (24hrs), Av , Min:119 , Max:182 Diastolic (24hrs), Av, Min:62, Max:94 Pulse Av.1 Min: 76 Max: 130 Temp Av.3 C (99.2 F) Min: 37.2 C (99 F) Max: 37.5 C (99.5 F) Resp Av.9 Min: 16 Max: 26 SpO2 Av.5 % Min: 83 % Max: 99 % Intake/Output Summary (Last 24 hours) at 02/17/18 0630 Last data filed at 02/17/18 0600 Gross per 24 hour Intake 3052.43 ml Output 2250 ml Net 802.43 ml Ventilator Settings Mode PS FiO2: 40 PEEP: 8 PS: 12 Physical Exam: GENERAL: Obese female, sedated and intubated. CARDIAC: RRR. No m/r/g. RESPIRATORY: Coarse mech vent breath sounds bilaterally. ABDOMEN: soft, obese abd. Normoactive bowel sounds. EXTREMITIES: 2+ pitting edema to BLE. NEUROLOGICAL: Sedated and intubated and proned. SKIN: Skin normal color, texture and turgor with no lesions or eruptions. LINES/TUBES: L foot PIV, RUE PIV; R wrist PIV; ETT; Mendiola; OG tube Labs: CBC with diff last 72 hours (or 3 results) Recent Labs 02/15/18 0400 02/16/18 0120 02/17/18 0403 WBC 12.15* 12.62* 13.88* HB 12.8 13.1 13.2 HCT 42.3 43.4 44.5 PLT 261 276 293 NEUTROPERC 77.3* 77.2* 73.2* LYMPHPERC 12.6* 12.6* 13.8* MONOPERC 5.8 6.5 7.8 BASOPERC 0.6 0.6 0.6 EOSPERC 2.3 1.7 2.9 Chemistries: Last 72 Hours (or 3 results): Recent Labs 02/15/18 0401 02/15/18 1319 02/16/18 0120 02/17/18 0403 02/17/18 0419 02/17/18 0503 02/17/18 0608 NA 145 -- 141 -- 146* -- 147* -- -- -- K 4.4 -- 4.9 -- 4.4 -- 3.8 -- -- -- CL 110* -- 108 -- 112* -- 114* -- -- -- BICARB 27 -- 24 -- 27 -- 28 -- -- -- BUN 32* -- 41* -- 49* -- 46* -- -- -- CR 1.50* -- 1.38* -- 1.36* -- 1.04 -- -- -- GLU 152* < > 309* < > 191* < > 149* 196* 138* 137* CA 7.9* -- 7.8* -- 8.4* -- 8.7 -- -- -- MG 2.6 -- 2.6 -- 2.9* -- 2.7* -- -- -- PO4 4.0 -- -- -- 3.6 -- 2.8 -- -- -- < > = values in this interval not displayed. No results found for this basename: inr,pt,ptt,aptt,fibrinogen Microbiology: Sputum Cx from ETT (02/14/2018): 1+ oral francisco. Rare squams; no PMNs, no orgs. BCx (02/14/2018): NGTD RVP (02/11/2018): positive metanpneumovirus. BCx (02/11/2018): NGTD Urine S. Pneumonia Ag (02/11/2018): negative. Urine Legionella Ag (02/11/2018): negative. Sputum Cx from ETT (02/11/2018): NGTD. No squams, mod PMNs, no orgs. MSSA/MRSA Nares (02/11/2018):neg. Imaging: CXR 02/15/2018: Minimal improvement left lower lobe consolidation likely combination of atelectasis and pos sible aspiration. CXR 02/14/2018: Increased dense retrocardiac and stable infrahilar opacification, most likely aspiration or developing pneumonia. CXR 02/13/2018: obtained post-supination Dense retrocardiac opacification and nodular right infrahilar opacities most suggestive of aspiration or pneumonia. CXR 02/12/2018: Endotracheal tube terminates in the high trachea, 6.7 cm above the jim. Abd XR Feeding Tube Eval 02/12/2018: Of note, the patient is prone, and images have not been corrected. An orogastric tube is id entified terminating below the diaphragm likely within the body of the stomach. CXR 02/10/2018: 1. Redemonstration of diffuse bilateral extensive patchy airspace opacities. 2. Enteric tube tip terminates approximately 5 cm above the jim. EKG/Echocardiogram: no Problem List: Patients Hospital Problem List: Active Hospital Problems 1) Pneumonia Assessment and Plan: 62 y.o. woman admitted to the MICU for acute hypoxemic respiratory failure in moderate ARDS likely 2/2 metapneumovirus. Neurologic #Sedation Sedation has been barrier to extubation. Significant PSVT at prior attempt. TG downtrending #Chronic pain - Oxycodone 5-10 mg Q4H prn 1st line pain - Hydromorphone 0.5-1.5 mg IV Q2H PRN - CPOT goal 0-+1 - Cont abapentin 300 mg TID Cardiovascular #Paroxysmal SVT Patient had multiple asymptomatic runs of SVT at the outside hospital which subsided after starting metoprolol 25 mg/bid. Transitioned to coreg for BP control. - Cont carvedilol 25 mg PO BID #HTN #HFpEF Normotensive on arrival with progressive rise in BP likely due to hypervolemia and improvin g sepsis.Last TTE 10/2017 showed LVEF 65-70% with grade 1 diastolic dysfunction with carlos l RV size and function. - Amlodipine 10 mg QDAY (started 02/14). - Cont carvedilol 25 mg PO BID - Furosemide 40 mg IV once to goal -1L Respiratory #Acute hypoxemic hypercapnic respiratory failure requiring intubation #ARDS moderate #Metapneumovirus Etiologies: metapneumovirus +/- superimposed bacterial pneumonia with component of hypervo lemia from HFpEF in setting of chronic lung disease (moderate asthma). Empirically s/p oselt amivir x 5d course at OSH then treated with IV CTX + azithro x 3d (02/08-02/10) and vancomyc in added 02/10 at [facility]. Pt already with poor baseline pulm function in setting of OLIVIA. Ur ine S. pneumo and legionella ag neg. MRSA nares neg. Completed 7 day abx course (01/12-02/14 ). Blood Cx and sputum cx negative. Overall significantly improving PS needs. - SBT daily #OLIVIA - On PSV as above #Moderate persistent bronchial asthma - Home budesonide BID - Duonebs Q4H rajeev. GI / Nutrition #OG tube - Cont TF at goal 35 mL/hr / Renal # Hypervolemic hypernatremia: Likely 2/2 increase in TF. - Increase free water flushes 250 mL Q4 Infectious Disease See respiratory Hematology / Oncology # Leukocytosis: Likely 2/2 stress vs. Borderline infection of pulmonary etiology. -Deferring abx for now as pt with only borderline fevers and improving consoli dation based on CXR 02/15. Endocrine #DMII (Last A1c was 10.6mg/dl per outside hospital records) - Cont endotool RESOLVED/CHRONIC ISSUES: #Non-oligouric NANCY on CKD stage III Baseline Cr 1.3. Etiology: pre-renal in setting of aggressive diuresis from 02/11-02/12. #HLD - Continue atorvastatin 10 mg QDAY. #Depression - Continue sertraline 100 mg QDAY Consultants: Nutrition Feeding: Tube Feeds Analgesia: Oxycodone, Hydromorphone PRN Sedation: None Thromboprophylaxis: LMWH SC Head of Bed: > 30 Ulcer Prophylaxis: H2 shane Glycemic control: Endotool. Mobility Goal: Bed rest. Lines/Tubes/Drains/Airways: L foot PIV, RUE PIV, R wrist PIV, Mendiola, Rectal tube, OG tube, and ETT This patient was seen by and discussed with Dr. Matamoros, attending physician, who agrees with the above assessment & plan. CONSTANZA BYRD MD [facility] [address] [place] [address] ] Leif Rico RCP - 02/17/2018 6:11 AM PDTFormatting of this note might be different from the or iginal. Events: Pt remains on ventilator overnight with Q4 Duoneb and BID pulmicort. Has been doing well on 10/19 40% PS t/o night. 7.0 ETT 24 at teeth. Possible Scans: Ventilator, Airway or assessment Changes: Mode: $ Ventilator Mode - Adult: Pressure Support (02/17/18199) Vt ml/kg:Exh Michi Vt - mL/k.7 mL/kg (02/15/18 040) Plat: Plat Press: 13 cm H2O (02/15/18 08) RRtotal: Total Rate: 15 bpm (02/17/18199) PEEP: PEEP/CPAP: 8 cm H2O (02/17/18199) Total PEEP: TOTAL PEEP: 8 cm H2O (02/17/18199) FIO2: Current FIO2 (%): 40 fraction of O2 (02/17/18399) SpO2: SpO2: 96 % (02/17/18 0600) ETCO2: ETCO2: 41 mmHg (02/14/18 0334) Goals for the Day: 7am-7pm: 7pm-7am: Respiratory Therapy modalities and medication: Vital signs: BP Readings from Last 1 Encounters: 02/17/18 162/77 Pulse Readings from Last 1 Encounters: 02/17/18 93 Resp Readings from Last 1 Encounters: 02/17/18 22 Wt Readings from Last 1 Encounters: 02/11/18 162 kg (357 lb 2.3 oz) Temp Readings from Last 1 Encounters: 02/17/18 37.5 C (99.5 F) Body mass index is 57.4 kg/m. ABG Lab Results Component Value Date PH 7.45 (H) 02/14/2018 PCO2 44 (H) 02/14/2018 PO2 64 (L) 02/14/2018 HCO3 30 (H) 02/14/2018 [id number] 94.2 02/14/2018 FIO2 0.40 02/13/2018 [id number] 158 (L) 02/13/2018 [id number] 198 (L) 02/13/2018 [id number] 148 (L) 02/13/2018 [id number] 134 (L) 02/13/2018 P/F ratio: Improving/worsening Today Previous day ECMO or ARDS vents only Driving pressure: Plat Press: 13 cm H2O (02/15/18808) - TOTAL PEEP: 8 cm H2O (02/17/18199) = Driving Pressure (DP): 5 cm H2O (02/15/18808) Plat Press: 13 cm H2O Dynamic Lung Compliance: 9 ml/cm CRS Static: 54.00 (02/15/18808) CXR No results found for: CXR SBT/RIKI: Failures reasons: Barriers: Mobility Plan: Ron Alberts MD - 02/16/2018 9:57 PM PDTFormatting of this note might be different fro m the original. MICU Attending Note I have rounded with the critical care team and personally reviewed Sarah Reeves's availab le data, including medical history, significant events, physical examination and test result s. I agree with the MICU team's assessment and documentation and have participated in the cr eation of today's plan of care, with additions or exceptions as noted. Ht 1.68 m (5' 6.14"), Wt 162 kg (357 lb 2.3 oz), BP 167/67, Pulse 98, Temperature 37.2 C (99 F), RR 23, SpO2 96%, BMI 57.4 kg/(m^2). Body mass index is 57.4 kg/m. Lab Results Component Value Date PH 7.45 (H) 02/14/2018 PCO2 44 (H) 02/14/2018 PO2 64 (L) 02/14/2018 HCO3 30 (H) 02/14/2018 [id number] 94.2 02/14/2018 FIO2 0.40 02/13/2018 [id number] 158 (L) 02/13/2018 Critical Diagnoses Hypoxic resp failure ARDS moderate Chronic pain metapneumovirus PNA Asthma OLIVIA Obesity pEFHF Anemia NOS NANCY Febrile Frequent PACs HTN Assessment/Plan PS ventilation, weaning support ceftriaxone Amlodipine and coreg started Propofol for sedation/pain with oxycodone; also on home gabapentin Continue home SSRI Insulin gtt Ron Meeks MD, MA Materials Development Engineer Division of Pulmonary & Critical Care Medicine Pager: [phone] Critical Care Time: I spent 16 minutes in the care and magagement of this patient who is cr itically ill (managing issues that acutely impair one or more vital organ systems such that there is a high probability of imminent or life threatening deterioration in the patient's c ondition). Jones Blum MD - 02/16/2018 9:35 AM PDTFormatting of this note might be different from the marcos sean. MICU Attending Note Hospital Admission Date: 02/11/2018 Hospital Day: 5 ID: Sarah Reeves is a 62 y.o. female with ARDS 2/2 metapneumovirus. 24 Hour Events: Runs of svt when agitated Remains hypertensive Fevers improved Not following commands 24 Hour Net IO = +200 ml ASSESSMENT/PLAN: Active Diagnoses: #. ARDS, moderate, resolved //cont PSV now, wean Ps //rass goal -2 //sedation holiday daily -- not following commands, prop for sedation //io goal even #. Encephalopathy #. Metapneumovirus URI #. Fevers, resolved #. Morbid Obesity #. CKD #. DM2 #. HTN //on amlodipine #. SVT //start coreg #. Hypernatremia //free water ICU Bundle: #. Nutrition: tf #. Mobility Plan: prom #. Lines: ett, mendiola, piv, rectal tube, og #. DVT: enox #. GI: famotidine #. Glycemic Control: endotool ATTESTATION: I evaluated the patient at the bedside with the MICU team. Please see their n ote for a detailed rounding summary. I reviewed the documented findings, relevant data, and recent imaging. I agree with the assessment and plan as described in the resident's note w ith the following exceptions/additions as noted above. I spent a total of 35 minutes in the care and management, not including procedural time, of this patient who is critically ill. Leif Matamoros MD [facility] [address] [place] [address] Pantera Armendariz RCP - 02/16/2018 9:07 AM PDTAdvanced oett 2cm . bs bilat Van Saucedo MD - 02/16/2018 6:03 AM PDTFormatting o f this note might be different from the original. [facility] MEDICAL ICU - PROGRESS NOTE Hospital Day: 5 | ICU Day: 6 ID/CC: Sarah Reeves is a 62 y.o. woman admitted to the MICU for acute hypoxemic respirato ry failure in setting of moderate ARDS 2/2 metapneumovirus and suspected bilateral pneumonia . Consultants: None. 24 Hour Events: -Transitioned to PSV, continues to wean slowly. -Re-started endotool for high CBGs > 300. -Weaned down propofol sedation yest with RASS goal 0 o -1 since on PSV. -Persistently getting more tachycardic with less sedation (up to 140s-160s). -1L IV LR. -Started metop tart 25 mg PO BID. Subjective: Pt is intubated and was still on sedation during the exam.. Vital Signs: Cuff BP 180/65 (02/16/18 1000) | BP Min: 129/73 Max: 186/91 Cuff MAP 95 mmHg (02/16/18 1000) | BP Mean Min: 78 mmHg Max: 117 mmHg Art Line BP | No Data Recorded Art Line MAP | No Data Recorded HR 103 (02/16/18 1000) | Pulse Min: 91 Max: 185 | Cardiac Rhythm: Sinus Tachycardia;PVCs (02/16/18 06) Temp 37.8 C (100 F) (02/16/18 0400) | Temp Min: 36.9 C (98.4 F) Max: 38 C (100. 4 F) RR 17 (02/16/18 1000) | Resp Min: 16 Max: 37 SpO2 96 % (02/16/18 1000) | SpO2 Min: 83 % Max: 99 % O2 Device Endotracheal tube (02/16/18 06) | Pressure Support (02/16/18 0905) Ventilator Settings PSV: PSV: 12 cm H2O PEEP Set: 8 cm H2O RR: 24 bpm FiO2: 40 fraction of O2 Observed Ventilation Vex: Mandatory 350 ml | Spontaneous 430 ml [place] BW: 59.6 kg RR: 18 bpm Minute Ventilation: 7.8 L/MIN SpO2: 96 % Ventilator Diagnostics (Past 24 hrs) Pplat | Driving Pressure Total PEEP 8 cm H2O (02/15/18 1557) | AutoPEEP SBT Assessed | SBT Outcome Cam/RASS Flowsheet Row Most Recent Value CAM (Confusion Assessment Method) Unable to complete assessment (see comments) RASS Scale -2 CPOT 0 (02/16/18 0400) Intake/Output Summary (Last 24 hours) at 02/16/18 1056 Last data filed at 02/16/18 1000 Gross per 24 hour Intake 3250.46 ml Output 2435 ml Net 815.46 ml Intake/Output Summary (since admission) at 02/11/18 0012 Last data filed at 02/16/18 1000 Gross for the last 5 days Intake 17858.79 ml Output 12839 ml Net since Admission -9527.21 ml BMI: 57.5 Weights 162 kg (357 lb 2.3 oz) (02/11/18 0054) Admit Wt: 162 kg (357 lb 2.3 oz) Physical Exam: GENERAL: Obese female, sedated and intubated. CARDIAC: RRR. No m/r/g. RESPIRATORY: Coarse mech vent breath sounds bilaterally. ABDOMEN: soft, obese abd. Normoactive bowel sounds. EXTREMITIES: 2+ pitting edema to BLE. NEUROLOGICAL: Sedated and intubated and proned. SKIN: Skin normal color, texture and turgor with no lesions or eruptions. LINES/TUBES: L foot PIV, RUE PIV; R wrist PIV; ETT; Mendiola; OG tube. Laboratories: Recent Labs 02/13/18 1105 02/13/18 2139 02/14/18 0457 02/15/18 0958 PH 7.33* 7.46* 7.45* -- PCO2 56* 42 44* -- PO2 79 63* 64* -- HCO3 29* 30* 30* -- [id number] 198* 158* -- -- VBGPH -- -- -- 7.34* VBGPCO2 -- -- -- 49 VBGHCO3 -- -- -- 26 Recent Labs 02/15/18 0400 02/16/18 0120 WBC 12.15* 12.62* HB 12.8 13.1 HCT 42.3 43.4 MCV 91.2 92.3 PLT 261 276 NEUTROPHILCO 9.40* 9.75* LYMPHSABS 1.53 1.59 MONOCYTECO 0.70 0.82 EOSCO 0.28 0.21 BASOPHILCO 0.07 0.07 IMGRANABS 0.17* 0.18* No results for input(s): INRPT, APTT, FIBRINOGEN in the last 720 hours. Recent Labs 02/14/18 0457 02/15/18 0401 02/15/18 1319 02/16/18 0120 NA 145 < > 145 141 146* K 3.3* < > 4.4 4.9 4.4 CL 108 < > 110* 108 112* BICARB 28 < > 27 24 27 BUN 23* < > 32* 41* 49* CR 1.36* < > 1.50* 1.38* 1.36* CA 7.6* < > 7.9* 7.8* 8.4* MG 2.0 < > 2.6 2.6 2.9* PO4 2.0* -- 4.0 -- 3.6 ANIONGAP 9 < > 8 9 7 < > = values in this interval not displayed. Recent Labs 02/16/18 0208 02/16/18 0325 02/16/18 0429 02/16/18 0533 02/16/18 0636 02/16/18 0743 02/16/18 0922 02/16/18 1028 GLU 180* 161* 138* 187* 163* 144* 146* 152* Recent Labs 02/14/18 0457 02/15/18 0401 02/16/18 0120 ALB 2.1* 2.2* 2.4* Lab Orders - In Process (Through next 24h) Start Ordered 02/11/18 0015 CULTURE, BLOOD BACTI & YEAST ONCE 02/11/18 0019 02/11/18 0015 CULTURE, BLOOD BACTI & YEAST ONCE 02/11/18 0019 Microbiology: Sputum Cx from ETT (02/14/2018): 1+ oral francisco. -Rare squams; no PMNs, no orgs. BCx (02/14/2018): NGTD x2. RVP (02/11/2018): positive metanpneumovirus. BCx (02/11/2018): NGTD x2. Urine S. Pneumonia Ag (02/11/2018): negative. Urine Legionella Ag (02/11/2018): negative. Sputum Cx from ETT (02/11/2018): NGTD. -No squams, mod PMNs, no orgs. MSSA/MRSA Nares (02/11/2018): neg. Imaging: CXR 02/15/2018: IMPRESSION: Minimal improvement left lower lobe consolidation likely combination of atelectasis and pos sible aspiration. CXR 02/14/2018: IMPRESSION: Increased dense retrocardiac and stable infrahilar opacification, most likely aspiration or developing pneumonia. CXR 02/13/2018: obtained post-supination IMPRESSION: Dense retrocardiac opacification and nodular right infrahilar opacities most suggestive of aspiration or pneumonia. CXR 02/12/2018: IMPRESSION: Endotracheal tube terminates in the high trachea, 6.7 cm above the jim. Abd XR Feeding Tube Eval 02/12/2018: IMPRESSION: Of note, the patient is prone, and images have not been corrected. An orogastric tube is id entified terminating below the diaphragm likely within the body of the stomach. CXR 02/10/2018: IMPRESSION: 1. Redemonstration of diffuse bilateral extensive patchy airspace opacities. 2. Enteric tube tip terminates approximately 5 cm above the jim. EKG/Echocardiogram: No new. Current Facility-Administered Medications Medication Dose Route Frequency Last Rate insulin regular in NaCl 0.9% IV infusion (1 unit/mL) 0.1-50 Units/hr intravenous ROMARIO NUOUS 6.5 Units/hr (02/16/18 1028) propofol (DIPRIVAN) injection 0.5-50 mcg/kg/min (Dosing Weight) intravenous CONTINUOUS 20 mcg/kg/min (02/16/18 1000) Current Facility-Administered Medications Medication Dose Route Frequency Last Rate amLODIPine (NORVASC) tablet 10 mg 10 mg feeding tube DAILY atorvastatin (LIPITOR) tablet 10 mg 10 mg feeding tube DAILY budesonide (PULMICORT) 0.5 mg/2 mL nebulizer suspension 0.5 mg 0.5 mg inhalation BID carvedilol (COREG) tablet 12.5 mg 12.5 mg oral BID W/MEALS chlorhexidine (PERIDEX) mouthwash 15 mL 15 mL oral Q6H enoxaparin (LOVENOX) injection 40 mg 40 mg subcutaneous Q12H (Scheduled) famotidine (PEPCID) tablet 20 mg 20 mg feeding tube BID gabapentin (NEURONTIN) liquid 300 mg 300 mg feeding tube TID ipratropium-albuterol (DUO-NEB) nebulizer solution 3 mL 3 mL inhalation Q4H nystatin (MYCOSTATIN) powder topical BID probiotic kefir (KEYONNA'S KEFIR) oral BID senna (SENOKOT) liquid 17.6 mg 10 mL feeding tube BID Current Facility-Administered Medications Medication Dose Route Frequency Last Rate acetaminophen (TYLENOL) oral suspension 1,000 mg 1,000 mg feeding tube TID PRN albuterol 0.5% (PROVENTIL,VENTOLIN) 2.5 mg/0.5 mL nebulizer solution 2.5 mg 2.5 mg inh alation Q2H PRN bisacodyl (DULCOLAX) suppository 10 mg 10 mg rectal DAILY PRN dextrose 5%-NaCl 0.45% IV infusion 5-400 mL intravenous PRN dextrose 50 % in water IV 15-150 mL 15-150 mL intravenous PRN docusate sodium liquid 100 mg 100 mg feeding tube BID PRN glucagon (GLUCAGEN) injection 1 mg 1 mg intramuscular PRN glucose chewable tablet 4-40 g 4-40 g oral PRN hydrALAZINE (APRESOLINE) injection 10 mg 10 mg intravenous Q4H PRN HYDROmorphone (DILAUDID) injection 0.5-1.5 mg 0.5-1.5 mg intravenous Q2H PRN insulin regular bolus from continuous infusion 1-50 Units 1-50 Units intravenous NE EDED (BOLUS) menthol-zinc oxide (CALAZIME) topical paste 0.2%-16.5% topical QID PRN oxyCODONE (immediate release) (ROXICODONE) tablet 5-10 mg 5-10 mg feeding tube Q4H PRN polyethylene glycol (MIRALAX) packet 34 g 34 g feeding tube TID PRN propofol (DIPRIVAN) bolus from continuous infusion 10-20 mg 10-20 mg intravenous Q15MI N PRN white petrolatum-mineral oil-lanolin (LACRILUBE) 83-15 % ophthalmic ointment Both Eye s PRN Assessment & Plan: Sarah Reeves is a 62 y.o. woman admitted to the MICU for acute hypoxemic respiratory fail ure in s/o moderate ARDS likely 2/2 metapneumovirus. Neurological #Sedated: Current sedation package includes propofol with hydromorphone prn for pain relief . -Continue weaning down on propofol. RASS goal-2. -Daily sedation vacation -Repeat TG level 02/17 am. -Triglycerides 305 H on 02/13 --> 466 on 02/15. #Chronic pain: -Oxycodone 5-10 mg Q4H prn 1st line pain. -Hydromorphone 0.5-1.5 mg IV Q2H prn. -CPOT goal of (0 to +1). -Home gabapentin 300 mg TID. #Depression: -Continue sertraline 100 mg QDAY. Cardiovascular #Paroxysmal supraventricular tachycardia: Patient had multiple asymptomatic runs of SVT at the outside hospital which subsided after starting metoprolol 25 mg/bid. -Started metoprolol tart 25 mg BID overnight 02/15-02/16. D/C metop . -Transition to carvedilol 25 mg PO BID (first dose 02/16) to help with pSVT and HTN. -CTM. #HTN: Normotensive on arrival, will hold any antihypertensives at this time in the setting of acu te infection. Home lisinopril 20 mg QDAY was held upon arrival to [facility] 02/10. -Amlodipine 10 mg QDAY (started 02/14). -Start carvedilol 25 mg PO BID. -Hydralazine 10 mg IV prn SBP > 180. #HLD: -Continue atorvastatin 10 mg QDAY. #Presumed HFpEF: Last TTE 10/2017 showed LVEF 65-70% with grade 1 diastolic dysfunction with normal RV size and function. BNP 2,080 on arrival. Likely volume overload on exam. IV lasix 40 mg x2 on . -Hold diuresis. Goal net even. -Strict I/Os. Daily weights. -Monitor. Respiratory #Fever #Acute hypoxemic hypercapnic respiratory failure requiring intubation #ARDS, Moderate #Metapneumovirus #Hypervolemia Hypoxemic respiratory failure likely 2/2 metapneumovirus +/- superimposed bacterial pneumon ia with component of hypervolemia in setting of presumed HFpEF (NTproBNP on arrival ). Course complicated by moderate ARDS based off ABG 02/11 (PaO2/FiO2 ~157), bilateral opacitie s on CXR, etc. Empirically s/p oseltamivir x5d course at OSH (unclear influenza PCR positivi ty at OSH). Pt was initially treated with IV CTX + azithro x3d (02/08-02/10) and vanco added 02/10 at OSH [facility]. Pt already with poor baseline pulm function in setting of OLIVIA. Urine S. p neumo and legionella ag neg. MRSA nares neg. Vanc D/C 02/12. D/C azithro 02/13 as completed 5 day course (02/08-02/12). D/C zosyn (02/11-02/13). Pt off petal as of 02/14/2018. Complete d 7 day abx course (01/12-02/14). -Now on PSV. Doing well. Continue titrating down on PSV. -Goal Pplateau <30. -There have been occasional borderline fevers, but CXR 02/15 noted improvement of possibl e LLL consolidation (? Atelectasis vs. Aspiration pneumonia). Although WBC elevated, because of only borderline fevers will defer abx at this time after discussion with team. -Consider starting vanc/zosyn if pt peristently spikes fever or starts to show other sign s of sepsis. -F/u repeat BCx 02/14 - NGTD x2. -F/u repeat sputum cx () - 1+ oral francisco. Rare squams, no PMNs, no orgs. -F/u sputum cx (02/11) - mod PMNs, no orgs. #OLIVIA -On PSV as above. #Moderate persistent bronchial asthma -Home budesonide BID. -Duonebs Q4H rajeev. #Presumed Influenza at OSH: No clear documentation of positivity, s/p 5 days of Tamiflu [employer]. On arrival to [facility], influe nza A/B negative on 02/11/2018. GI / Nutrition #OG tube -Nutrition consulted 02/11. -TF started 02/11. At goal 35 mL/hr while on propfol per nutrition. -Keyonna kefir 1/2 container BID, per nutrition. / Renal # Mild Hypernatremia: Likely 2/2 increase in TF. -Start free water flushes 250 mL Q8H. #NANCY on CKD stage III (Baseline creatinine 1.3mg/dl per chart review) Likely pre-renal in setting of aggressive diuresis on 02/11-02/12. - SCr now back to baseline 1.3. - Hold diuresis today as pt got 1L IV LR overnight. - Continue to monitor daily Infectious Disease # Fever: D/C'd vanc/azithro 02/13 and transitioned from zosyn -> IV CTX until 02/14 for 7 day total abx course. -Low threshold to start vanc/zosyn for possible VAP if having persistent fevers. -F/u repeat BCx 02/14 - NGTD x2. -F/u repeat sputum cx 02/14 - 1+ oral francisco. Rare squams, no PMNs, no orgs. -APAP prn. # See respiratory section. Hematology / Oncology # Leukocytosis: Likely 2/2 stress vs. Borderline infection of pulmonary etiology. -Deferring abx for now as pt with only borderline fevers and improving consolidation based on CXR 02/15. Endocrine #DMII (Last A1c was 10.6mg/dl per outside hospital records) -Back on endotool 02/15-present. -Hypoglycemic precautions started. Consultants: Nutrition Feeding: Tube Feeds Analgesia: Oxycodone, Hydromorphone Sedation: Propofol (RASS Goal 0-2). Thromboprophylaxis: LMWH SC Head of Bed: > 30 Ulcer Prophylaxis: H2 shane Glycemic control: Endotool. Mobility Goal: Bed rest. Lines/Tubes/Drains/Airways: L foot PIV, RUE PIV, R wrist PIV, Mendiola, Rectal tube, OG tube, and ET Tube. Code Status Code Status Full Code Surrogate Decision Maker Documentation: Surrogate Decision Maker Primary Surrogate Decision Maker Latanya Gunter Sister [phone] Secondary Surrogate Decision Maker Mr. Lala Mendoza This patient was staffed with Dr. Leif Matamoros, attending physician. VAN PALMA MD Template created by TABITHA 2017 11: 10 AM KISHANSuRon chan MD - 02/15/2018 7:42 PM PDTFormatting of this note might be di fferent from the original. MICU Attending Note I have rounded with the critical care team and personally reviewed Sarah Reeves's availab le data, including medical history, significant events, physical examination and test result s. I agree with the MICU team's assessment and documentation and have participated in the cr eation of today's plan of care, with additions or exceptions as noted. Ht 1.68 m (5' 6.14"), Wt 162 kg (357 lb 2.3 oz), BP 153/59, Pulse 100, Temperature 37.7 C (99.9 F), RR 29, SpO2 96%, BMI 57.4 kg/(m^2). Body mass index is 57.4 kg/m. Lab Results Component Value Date PH 7.45 (H) 02/14/2018 PCO2 44 (H) 02/14/2018 PO2 64 (L) 02/14/2018 HCO3 30 (H) 02/14/2018 [id number] 94.2 02/14/2018 FIO2 0.40 02/13/2018 [id number] 158 (L) 02/13/2018 Critical Diagnoses Hypoxic resp failure ARDS moderate Chronic pain metapneumovirus PNA Asthma OLIVIA Obesity pEFHF Anemia NOS NANCY Febrile Frequent PACs HTN Assessment/Plan PS ventilation Diuresis 1L negative overnight; Cr recovery Vanc/zosyn and azithromycin stopped and ceftriaxone started for 7 days more Amlodipine started; should add hydralazine three times daily for BP >150 My need to investigate LLL for effusion, may just be consolidation/ atelectasis slow to resolve if leukocytosis persists Propofol for sedation/pain with oxycodone; also on home gabapentin Continue home SSRI Insulin gtt Ron Meeks MD, MA Materials Development Engineer Division of Pulmonary & Critical Care Medicine Pager: [phone] Critical Care Time: I spent 16 minutes in the care and magagement of this patient who is cr itically ill (managing issues that acutely impair one or more vital organ systems such that there is a high probability of imminent or life threatening deterioration in the patient's c ondition). Jones Blum MD - 02/15/2018 1:03 PM PDTFormatting of this note might be different from the marcos ginal. MICU Attending Note Hospital Admission Date: 02/11/2018 Hospital Day: 4 ID: Sarah Reeves is a 62 y.o. female with metapneumovirus induced ARDS. 24 Hour Events: Transitioned to Ps Spiking temps More tachy on sedation hold now 24 Hour Net IO = -2.7L Pertinent Diagnostics: CXR 02/15/2018 IMPRESSION: Minimal improvement left lower lobe consolidation likely combination of atelectasis and pos sible aspiration. ASSESSMENT/PLAN: Active Diagnoses: #. ARDS, moderate //cont Ps now //wean Ps //rass goal 0 to -1 //sedation holiday daily -- opens eyes, moving head, not following commands, restart prop, cont opioids prn, avoid addl benzos if possible //io goal even today given bump in Cr //low threshold for new abx given fevers #. Metapneumovirus URI #. Fevers //remove mendiola, remove art line #. Morbid Obesity #. CKD #. SVT #. DM2 #. HTN #. SVT //fu lytes, replace ICU Bundle: #. Nutrition: TF #. Mobility Plan: prom #. Lines: piv, mendiola, rectal tube, og egg #. DVT: enox #. GI: famotidine #. Glycemic Control: above goal ATTESTATION: I evaluated the patient at the bedside with the MICU team. Please see their n ote for a detailed rounding summary. I reviewed the documented findings, relevant data, and recent imaging. I agree with the assessment and plan as described in the resident's note w ith the following exceptions/additions as noted above. I spent a total of 35 minutes in the care and management, not including procedural time, of this patient who is critically ill. Leif Matamoros MD [facility] [address] [place] [address] Van Saucedo M D - 02/15/2018 6:01 AM PDT [facility] MEDICAL ICU - PROGRESS NOTE Hospital Day: 4 | ICU Day: 5 ID/CC: Sarah Reeves is a 62 y.o. woman admitted to the MICU for acute hypoxemic respirato ry failure in setting of moderate ARDS 2/2 metapneumovirus and suspected bilateral pneumonia . Consultants: None. 24 Hour Events: -Increased ectopy. Add'l 40 KCl and 2 Mg. Ectopy had resolved. -Discontinued art line. -Transitioned off endotool at 04:30 --> 33U NPH TID. -RR 28 --> 24 to work towards extubation. -More agitated, RT though sounded obstructed. Ppeak elevated. Nebs x2. SpO2 90s. -Started dilaudid prn. -IV lasix 60 mg x1 yest. -Still spiking temps, with elevated WBC. -Re-started propofol yest am. RASS goal changed to neg 2. -PEEP decreased to 8. -Amlodipine 10 mg QDAY started 02/14. Subjective: Pt is intubated and was still on sedation during the exam.. Vital Signs: Cuff BP 156/74 (02/15/18399) | BP Min: 100/45 Max: 191/165 Cuff MAP 97 mmHg (02/15/18399) | BP Mean Min: 60 mmHg Max: 174 mmHg Art Line BP 94/42 (02/15/18 0000) | ART Line BP Min: 94/42 Max: 185/75 Art Line MAP 57 mmHg (02/15/18 0000) | ART Line BP Mean Min: 57 mmHg Max: 120 mmHg HR 106 (02/15/18402) | Pulse Min: 88 Max: 124 | Cardiac Rhythm: Normal Sinus Rhythm;PAC s;PVCs (02/15/18399) Temp 37.4 C (99.3 F) (02/15/18399) | Temp Min: 37.4 C (99.3 F) Max: 38.5 C (1 01.3 F) RR 24 (02/15/180) | Resp Min: 22 Max: 32 SpO2 94 % (02/15/18402) | SpO2 Min: 90 % Max: 99 % O2 Device Endotracheal tube (02/15/18399) | Volume AC (02/15/18402) Ventilator Settings Vt: 4.5 mL/Kg (268.2 mL) RR: 24 bpm [place] BW: 59.6 kg FiO2 40 fraction of O2 PEEP Set 8 cm H2O Observed Ventilation Vex: Mandatory 340 ml | Spontaneous 320 ml RR: 24 bpm Minute Ventilation: 8.3 L/MIN SpO2 94 % Ventilator Diagnostics (Past 24 hrs) Pplat 13 cm H2O (02/15/18402) | Driving Pressure 3 cm H2O (02/15/18402) Total PEEP 10 cm H2O (02/15/18402) | AutoPEEP SBT Assessed | SBT Outcome Cam/RASS Flowsheet Row Most Recent Value CAM (Confusion Assessment Method) Positive (probable delirium) RASS Scale -4 CPOT 0 (02/15/18 0200) Intake/Output Summary (Last 24 hours) at 02/15/18 06 Last data filed at 02/15/18 044 Gross per 24 hour Intake 1533.48 ml Output 4170 ml Net -2636.52 ml Intake/Output Summary (since admission) at 02/11/18 0012 Last data filed at 02/15/18 044 Gross for the last 4 days Intake 8176.57 ml Output 29410 ml Net since Admission -9890.43 ml BMI: 57.5 Weights 162 kg (357 lb 2.3 oz) (02/11/18 0054) Admit Wt: 162 kg (357 lb 2.3 oz) Physical Exam: GENERAL: Obese female, sedated and intubated. CARDIAC: RRR. No m/r/g. RESPIRATORY: Coarse mech vent breath sounds bilaterally. ABDOMEN: soft, obese abd. Normoactive bowel sounds. EXTREMITIES: trace/1+ pitting edema to BLE. NEUROLOGICAL: Sedated and intubated and proned. SKIN: Skin normal color, texture and turgor with no lesions or eruptions. LINES/TUBES: L foot PIV, RUE PIV; R wrist PIV; ETT; Mendiola; OG tube. Laboratories: Recent Labs 02/13/18 0529 02/13/18 1105 02/13/18 2139 02/14/18 0457 PH 7.34* 7.33* 7.46* 7.45* PCO2 55* 56* 42 44* PO2 74 79 63* 64* HCO3 29* 29* 30* 30* [id number] 148* 198* 158* -- Recent Labs 02/13/18 0134 02/15/18 0400 WBC 7.38 12.15* HB 11.4* 12.8 HCT 36.2 42.3 MCV 89.4 91.2 PLT 189 261 NEUTROPHILCO -- 9.40* LYMPHSABS -- 1.53 MONOCYTECO -- 0.70 EOSCO -- 0.28 BASOPHILCO -- 0.07 IMGRANABS -- 0.17* No results for input(s): INRPT, APTT, FIBRINOGEN in the last 720 hours. Recent Labs 02/13/18 0134 02/14/18 0457 02/14/18 1829 02/15/18 0401 NA 144 145 144 145 K 3.9 3.3* 4.1 4.4 CL 106 108 108 110* BICARB 28 28 28 27 BUN 23* 23* 25* 32* CR 1.48* 1.36* 1.38* 1.50* CA 7.2* 7.6* 8.0* 7.9* MG 2.1 2.0 2.2 2.6 PO4 3.4 2.0* -- 4.0 ANIONGAP 10 9 8 8 Recent Labs 02/14/18 2317 02/15/18 0023 02/15/18 0129 02/15/18 0234 02/15/18 0337 02/15/18 0401 02/15/18 0442 02/15/18 0551 GLU 169* 158* 132* 150* 159* 152* 178* 180* Recent Labs 02/13/18 0134 02/14/18 0457 02/15/18 0401 ALB 2.1* 2.1* 2.2* Lab Orders - In Process (Through next 24h) Start Ordered 02/11/18 0015 CULTURE, BLOOD BACTI & YEAST ONCE 02/11/18 0019 02/11/18 0015 CULTURE, BLOOD BACTI & YEAST ONCE 02/11/18 0019 Microbiology: Sputum Cx from ETT (02/14/2018): 1+ oral francisco. -Rare squams; no PMNs, no orgs. BCx (02/14/2018): pending x2. RVP (02/11/2018): positive metanpneumovirus. BCx (02/11/2018): NGTD x2. Urine S. Pneumonia Ag (02/11/2018): negative. Urine Legionella Ag (02/11/2018): negative. Sputum Cx from ETT (02/11/2018): NGTD. -No squams, mod PMNs, no orgs. MSSA/MRSA Nares (02/11/2018): neg. Imaging: CXR 02/15/2018: IMPRESSION: Minimal improvement left lower lobe consolidation likely combination of atelectasis and pos sible aspiration. CXR 02/14/2018: IMPRESSION: Increased dense retrocardiac and stable infrahilar opacification, most likely aspiration or developing pneumonia. CXR 02/13/2018: obtained post-supination IMPRESSION: Dense retrocardiac opacification and nodular right infrahilar opacities most suggestive of aspiration or pneumonia. CXR 02/12/2018: IMPRESSION: Endotracheal tube terminates in the high trachea, 6.7 cm above the jim. Abd XR Feeding Tube Eval 02/12/2018: IMPRESSION: Of note, the patient is prone, and images have not been corrected. An orogastric tube is id entified terminating below the diaphragm likely within the body of the stomach. CXR 02/10/2018: IMPRESSION: 1. Redemonstration of diffuse bilateral extensive patchy airspace opacities. 2. Enteric tube tip terminates approximately 5 cm above the jim. EKG/Echocardiogram: No new. Current Facility-Administered Medications Medication Dose Route Frequency Last Rate insulin regular in NaCl 0.9% IV infusion (1 unit/mL) 0.1-50 Units/hr intravenous ROMARIO NUOUS 13 Units/hr (02/15/18 0552) propofol (DIPRIVAN) injection 0.5-50 mcg/kg/min (Dosing Weight) intravenous CONTINUOUS 20 mcg/kg/min (02/15/18 0300) Current Facility-Administered Medications Medication Dose Route Frequency Last Rate amLODIPine (NORVASC) tablet 10 mg 10 mg feeding tube DAILY atorvastatin (LIPITOR) tablet 10 mg 10 mg feeding tube DAILY budesonide (PULMICORT) 0.5 mg/2 mL nebulizer suspension 0.5 mg 0.5 mg inhalation BID chlorhexidine (PERIDEX) mouthwash 15 mL 15 mL oral Q6H docusate sodium liquid 100 mg 100 mg feeding tube BID enoxaparin (LOVENOX) injection 40 mg 40 mg subcutaneous Q12H (Scheduled) famotidine (PEPCID) tablet 20 mg 20 mg feeding tube BID gabapentin (NEURONTIN) liquid 300 mg 300 mg feeding tube TID insulin NPH (HUMULIN N) injection 33 Units 33 Units subcutaneous Q8H ipratropium-albuterol (DUO-NEB) nebulizer solution 3 mL 3 mL inhalation Q4H nystatin (MYCOSTATIN) powder topical BID polyethylene glycol (MIRALAX) packet 17 g 17 g feeding tube DAILY probiotic kefir (KEYONNA'S KEFIR) oral BID senna (SENOKOT) liquid 17.6 mg 10 mL feeding tube BID sertraline (ZOLOFT) tablet 100 mg 100 mg feeding tube DAILY Current Facility-Administered Medications Medication Dose Route Frequency Last Rate acetaminophen (TYLENOL) oral suspension 1,000 mg 1,000 mg feeding tube TID PRN albuterol 0.5% (PROVENTIL,VENTOLIN) 2.5 mg/0.5 mL nebulizer solution 2.5 mg 2.5 mg inh alation Q2H PRN bisacodyl (DULCOLAX) suppository 10 mg 10 mg rectal DAILY PRN dextrose 5%-NaCl 0.45% IV infusion 5-400 mL intravenous PRN dextrose 50 % in water IV 15-150 mL 15-150 mL intravenous PRN glucagon (GLUCAGEN) injection 1 mg 1 mg intramuscular PRN glucose chewable tablet 4-40 g 4-40 g oral PRN hydrALAZINE (APRESOLINE) injection 10 mg 10 mg intravenous Q4H PRN HYDROmorphone (DILAUDID) injection 0.5-1.5 mg 0.5-1.5 mg intravenous Q2H PRN insulin regular bolus from continuous infusion 1-50 Units 1-50 Units intravenous NE EDED (BOLUS) menthol-zinc oxide (CALAZIME) topical paste 0.2%-16.5% topical QID PRN oxyCODONE (immediate release) (ROXICODONE) tablet 5-10 mg 5-10 mg feeding tube Q4H PRN polyethylene glycol (MIRALAX) packet 34 g 34 g feeding tube TID PRN propofol (DIPRIVAN) bolus from continuous infusion 10-20 mg 10-20 mg intravenous Q15MI N PRN white petrolatum-mineral oil-lanolin (LACRILUBE) 83-15 % ophthalmic ointment Both Eye s PRN Assessment & Plan: Sarah Reeves is a 62 y.o. woman admitted to the MICU for acute hypoxemic respiratory fail ure in s/o moderate ARDS likely 2/2 metapneumovirus. Neurological #Sedated: Current sedation package includes propofol with hydromorphone prn for pain relief . -Continue weaning down on propofol. RASS goal 0 to -1 (pt now on PSV). -Daily sedation vacation -Triglycerides 305 H on 02/13 --> 466 on 02/15. #Chronic pain: -Oxycodone 5-10 mg Q4H prn 1st line pain. -Restarted hydromorphone overnight. -CPOT goal of (0 to +2). -Home gabapentin 300 mg TID. #Depression: -Continue sertraline 100 mg QDAY. Cardiovascular #Paroxysmal supraventricular tachycardia: Patient had multiple asymptomatic runs of SVT at the outside hospital which subsided after starting metoprolol 25 mg/bid. -Hold metoprolol tart 25 mg BID. -CTM. #HTN: Normotensive on arrival, will hold any antihypertensives at this time in the setting of acu te infection. Home lisinopril 20 mg QDAY was held upon arrival to [facility] 02/10. -Amlodipine 10 mg QDAY (started 02/14). -Hydralazine 10 mg IV prn SBP > 180. #HLD: -Continue atorvastatin 10 mg QDAY. #Presumed HFpEF: Last TTE 10/2017 showed LVEF 65-70% with grade 1 diastolic dysfunction with normal RV size and function. BNP 2,080 on arrival. Likely volume overload on exam. IV lasix 40 mg x2 on . -SCr inceased 1.3 --> 1.5. Hold diuresis today in s/o spiking fevers, rising W BC, and c/f VAP. -Strict I/Os. Daily weights. -Monitor. Respiratory #Fever #Acute hypoxemic hypercapnic respiratory failure requiring intubation #ARDS, Moderate #Metapneumovirus #Hypervolemia Hypoxemic respiratory failure likely 2/2 metapneumovirus +/- superimposed bacterial pneumon ia with component of hypervolemia in setting of presumed HFpEF (NTproBNP on arrival ). Course complicated by moderate ARDS based off ABG 02/11 (PaO2/FiO2 ~157), bilateral opacitie s on CXR, etc. Empirically s/p oseltamivir x5d course at OSH (unclear influenza PCR positivi ty at OSH). Pt was initially treated with IV CTX + azithro x3d (02/08-02/10) and vanco added 02/10 at OSH [facility]. Pt already with poor baseline pulm function in setting of OLIVIA. Urine S. p neumo and legionella ag neg. MRSA nares neg. Vanc D/C 02/12. D/C azithro 02/13 as completed 5 day course (02/08-02/12). D/C zosyn (02/11-02/13) -Pt off petal as of 02/14/2018. -Now on PSV. Doing well. -Goal Pplateau <30. -Completed 7 day abx course (01/12-02/14). -There have been occasional borderline fevers, but CXR 02/15 noted improvement of possibl e LLL consolidation (? Atelectasis vs. Aspiration pneumonia). Although WBC elevated, because of only borderline fevers will defer abx at this time after discussion with team. -Consider starting vanc/zosyn if pt peristently spikes fever or starts to show other sign s of sepsis. -F/u repeat BCx 02/14. -F/u repeat sputum cx () - 1+ oral francisco. Rare squams, no PMNs, no orgs. -F/u sputum cx (02/11) - mod PMNs, no orgs. #OLIVIA -On PSV as above. #Moderate persistent bronchial asthma -Home budesonide BID. -Duonebs Q4H rajeev. #Presumed Influenza at OSH: No clear documentation of positivity, s/p 5 days of Tamiflu [employer]. On arrival to [facility], influe nza A/B negative on 02/11/2018. GI / Nutrition #OG tube -Nutrition consulted 02/11. -TF started 02/11. Continue increasing to goal 35 mL/hr while on propfol per n utrition. -Keyonna kefir 1/2 container BID, per nutrition. / Renal #NANCY on CKD stage III (Baseline creatinine 1.3mg/dl per chart review) Likely pre-renal in setting of aggressive diuresis on 02/11-02/12. -SCr 1.3 --> 1.5 after diuresis. -Hold diuresis in s/o spiking fevers and worsening leukocytosis. -Continue to monitor daily #Metabolic Alkalosis: Likely 2/2 in setting of aggressive diuresis. -Monitor. Infectious Disease # Fever: D/C'd vanc/azithro 02/13 and transitioned from zosyn -> IV CTX until 02/14 for 7 day total abx course. -Low threshold to start vanc/zosyn for possible VAP if having persistent fevers. -F/u repeat BCx 02/14. -F/u repeat sputum cx 02/14. -APAP prn. # See respiratory section. Hematology / Oncology No acute active issues. Endocrine #DMII (Last A1c was 10.6mg/dl per outside hospital records) -Transitioned from Endotool --> NPH 30U TID on 02/14 overnight. -Aggressive SSI. -Hypoglycemic precautions started. Consultants: Nutrition Feeding: Tube Feeds Analgesia: Oxycodone, Hydromorphone Sedation: Propofol (RASS Goal 0 to -1). Thromboprophylaxis: LMWH SC Head of Bed: > 30 Ulcer Prophylaxis: H2 shane Glycemic control: SC insulin. Mobility Goal: Passive ROM Lines/Tubes/Drains/Airways: L foot PIV, RUE PIV, R wrist PIV, Mendiola, Rectal tube, OG tube, and ET Tube. Code Status Code Status Full Code Surrogate Decision Maker Documentation: Surrogate Decision Maker Primary Surrogate Decision Maker Latanya Gunter Sister [phone] Secondary Surrogate Decision Maker Mr. Reeves This patient was staffed with Dr. Leif Matamoros, attending physician. VAN PALMA MD Template created by [facility] 2017 2: 47 PM Ron Friedman MD - 02/14/2018 5:59 PM PDTFormatting of this note might be di fferent from the original. MICU Attending Note I have rounded with the critical care team and personally reviewed Sarah Reeves's availab le data, including medical history, significant events, physical examination and test result s. I agree with the MICU team's assessment and documentation and have participated in the cr eation of today's plan of care, with additions or exceptions as noted. Ht 1.68 m (5' 6.14"), Wt 162 kg (357 lb 2.3 oz), BP 126/58, Pulse 110, Temperature 37.5 C (99.5 F), RR 28, SpO2 95%, BMI 57.4 kg/(m^2). Body mass index is 57.4 kg/m. Lab Results Component Value Date PH 7.45 (H) 02/14/2018 PCO2 44 (H) 02/14/2018 PO2 64 (L) 02/14/2018 HCO3 30 (H) 02/14/2018 [id number] 94.2 02/14/2018 FIO2 0.40 02/13/2018 [id number] 158 (L) 02/13/2018 Critical Diagnoses Hypoxic resp failure ARDS moderate Chronic pain metapneumovirus PNA Asthma OLIVIA Obesity pEFHF Anemia NOS NANCY Febrile Frequent PACs HTN Assessment/Plan Weaning PEEP with improved p/f ratio; now at 8 Pull a-line Can start liberalizing LTV and progress to PS for comfort as tolerated Will wean sedation and reduce support; volume AC RR down from 28 to 20 given met alkalos is- with increased WOB ectopy worsened, will try to correct electrolytes and retrial RR wean Diuresis as tolerated; maybe 1-2L negative today [place] study = non-paralysis group Vanc/zosyn and azithromycin stopped and ceftriaxone started for 7 days more Amlodipine started Fever work-up; may need to investigate LLL for effusion, may just be consolidation/ atel ectasis slow to resolve Propofol for sedation/pain with oxycodone; also on home gabapentin Continue home SSRI Ron Meeks MD, MA Materials Development Engineer Division of Pulmonary & Critical Care Medicine Pager: [phone] Critical Care Time: I spent 27 minutes in the care and magagement of this patient who is cr itically ill (managing issues that acutely impair one or more vital organ systems such that there is a high probability of imminent or life threatening deterioration in the patient's c ondition). Annalee Arias, [employer]ER - 02/14/2018 4:52 PM PDTFormatting of this note might be different from the origina l. Events: PEEP weaned to +8 today, scheduled duonebs given Q4, Pulmicort BID. [place] study rem karen today. No plans to prone again. Sputum sent to lab for new fevers. Possible Scans: Ventilator, Airway or assessment Changes: Mode: $ Ventilator Mode - Adult: Volume AC (02/14/181600) Vt ml/kg:Exh Michi Vt - mL/k.3 mL/kg (02/14/18333) Plat: Plat Press: 29 cm H2O (02/14/181600) RRtotal: Total Rate: 28 bpm (02/14/181600) PEEP: PEEP/CPAP: 8 cm H2O (02/14/181600) Total PEEP: TOTAL PEEP: 8 cm H2O (02/14/181600) FIO2: Current FIO2 (%): 40 fraction of O2 (02/14/181600) SpO2: SpO2: 93 % (02/14/181600) ETCO2: ETCO2: 41 mmHg (02/14/18333) Goals for the Day: 7am-7pm: 7pm-7am: maintain vent settings, wean as tolerated Respiratory Therapy modalities and medication: Vital signs: BP Readings from Last 1 Encounters: 02/11/18 126/58 Pulse Readings from Last 1 Encounters: 02/14/18 92 Resp Readings from Last 1 Encounters: 02/14/18 (!) 28 Wt Readings from Last 1 Encounters: 02/11/18 162 kg (357 lb 2.3 oz) Temp Readings from Last 1 Encounters: 02/14/18 37.5 C (99.5 F) Body mass index is 57.4 kg/m. ABG Lab Results Component Value Date PH 7.45 (H) 02/14/2018 PCO2 44 (H) 02/14/2018 PO2 64 (L) 02/14/2018 HCO3 30 (H) 02/14/2018 [id number] 94.2 02/14/2018 FIO2 0.40 02/13/2018 [id number] 158 (L) 02/13/2018 [id number] 198 (L) 02/13/2018 [id number] 148 (L) 02/13/2018 [id number] 134 (L) 02/13/2018 P/F ratio: Improving/worsening Today Previous day ECMO or ARDS vents only Driving pressure: Plat Press: 29 cm H2O (02/14/181600) - TOTAL PEEP: 8 cm H2O (04/05/18 1601) = Driving Pressure (DP): 21 cm H2O (02/14/18 1601) Plat Press: 29 cm H2O Dynamic Lung Compliance: 8 ml/cm CRS Static: 12.86 (02/14/18 160) CXR No results found for: CXR SBT/RIKI: Failures reasons: Barriers: Mobility Plan: Katelyn Blum MD - 02/14/2018 10:57 AM PDTFormatting of this note might be different from the or iginal. MICU Attending Note Hospital Admission Date: 02/11/2018 Hospital Day: 3 ID: Sarah Reeves is a 62 y.o. female with metapneumovirus induced ARDS. Severe. 24 Hour Events: Isolated fever this am BP rising off sedation 24 Hour Net IO = -1.3L Pertinent Diagnostics: CXR 02/14/2018 IMPRESSION: Increased dense retrocardiac and stable infrahilar opacification, most likely aspiration or developing pneumonia. ASSESSMENT/PLAN: Active Diagnoses: #. ARDS, moderate //cont low Vt vent -- 4.5 ml/kg, plat 28 on peep 10 //wean peep, decrease RR now that she is alkalotic //rass goal -2, restart prop, cont opioids prn, avoid addl benzos if possible //io goal negative, cont lasix //on PETAL, randomized to non-paralytic armed //io goal negative //last day of ceftriaxone today #. Metapneumovirus URI #. New Fevers //concern for developing bacterial process in retrocardiac space //send ett culture, bcx //low threshold for vanco, zosyn if clinically worsening #. Morbid Obesity #. CKD #. SVT #. DM2 #. HTN //sedation, prn hydral ICU Bundle: #. Nutrition: TF #. Mobility Plan: prom #. Lines: og, piv, art line, mendiola, ett #. DVT: enox #. GI: famotidine #. Glycemic Control: above goal, endotool ATTESTATION: I evaluated the patient at the bedside with the MICU team. Please see their n ote for a detailed rounding summary. I reviewed the documented findings, relevant data, and recent imaging. I agree with the assessment and plan as described in the resident's note w ith the following exceptions/additions as noted above. I spent a total of 50 minutes in the care and management, not including procedural time, of this patient who is critically ill. Leif Matamoros MD [facility] [address] [place] [address] Van Saucedo M D - 02/14/2018 5:56 AM PDT [facility] MEDICAL ICU - PROGRESS NOTE Hospital Day: 3 | ICU Day: 4 ID/CC: Sarah Reeves is a 62 y.o. woman admitted to the MICU for acute hypoxemic respirato ry failure in setting of moderate ARDS 2/2 metapneumovirus and suspected bilateral pneumonia . Consultants: None. 24 Hour Events: -IV lasix 60 mg x1 yest. -Met diuresis goal, neg 1300 mL. -Weaned down on midazolam and was D/C'd 02/13 at 17:00. -Continued to wean propofol. RASS goal changed to neg 2. -PEEP decreased to 10. -BP high overnight up to 180s. Started 5 mg oxy PO x1, 10 mg IV labetalol x1. -ABG 02/13 21:39 - 7.46 / 42 / 63 / 30 with P/F 158 (down from 198 prior). -ABG 02/14 04:57 - 7.45 / 44 / 64 / 30. Subjective: Pt is intubated and was still on sedation during the exam.. Vital Signs: Cuff BP | No Data Recorded Cuff MAP | No Data Recorded Art Line BP 178/77 (02/14/18 1100) | ART Line BP Min: 100/43 Max: 189/94 Art Line MAP 117 mmHg (02/14/18 1100) | ART Line BP Mean Min: 62 mmHg Max: 120 mmHg HR 115 (02/14/18 1120) | Pulse Min: 74 Max: 115 | Cardiac Rhythm: Sinus Tachycardia;PACs; PVCs (02/14/18 1000) Temp 37.8 C (100 F) (02/14/18 1200) | Temp Min: 36.6 C (97.9 F) Max: 38.5 C (10 1.3 F) RR (!) 31 (02/14/18 1120) | Resp Min: 31 Max: 32 SpO2 95 % (02/14/18 1120) | SpO2 Min: 93 % Max: 99 % O2 Device Endotracheal tube (02/14/181119) | Volume AC (02/14/181119) Ventilator Settings Vt: 4.5 mL/Kg (268.2 mL) RR: 28 bpm [place] BW: 59.6 kg FiO2 40 fraction of O2 PEEP Set 8 cm H2O Observed Ventilation Vex: Mandatory 310 ml | Spontaneous 320 ml RR: 31 bpm Minute Ventilation: 9.6 L/MIN SpO2 95 % Ventilator Diagnostics (Past 24 hrs) Pplat 22 cm H2O (02/14/18 112) | Driving Pressure 14 cm H2O (02/14/181119) Total PEEP 8 cm H2O (02/14/181119) | AutoPEEP SBT Assessed | SBT Outcome Cam/RASS Flowsheet Row Most Recent Value CAM (Confusion Assessment Method) Positive (probable delirium) RASS Scale -2 CPOT 0 (02/14/18 1000) Intake/Output Summary (Last 24 hours) at 02/14/18 0700 Last data filed at 02/14/18 0454 Gross per 24 hour Intake 1521.61 ml Output 2845 ml Net -1323.39 ml Intake/Output Summary (since admission) at 02/11/18 0012 Last data filed at 02/14/18 0454 Gross for the last 3 days Intake 6643.09 ml Output 67812 ml Net since Admission -7128.91 ml BMI: 57.5 Weights 162 kg (357 lb 2.3 oz) (02/11/18 0054) Admit Wt: 162 kg (357 lb 2.3 oz) Physical Exam: GENERAL: Obese female, sedated and intubated. CARDIAC: RRR. No m/r/g. RESPIRATORY: Coarse mech vent breath sounds bilaterally. ABDOMEN: soft, obese abd. Normoactive bowel sounds. EXTREMITIES: trace/1+ pitting edema to BLE. NEUROLOGICAL: Sedated and intubated and proned. SKIN: Skin normal color, texture and turgor with no lesions or eruptions. LINES/TUBES: L foot PIV, RUE PIV; R wrist PIV; ETT; Mendiola; OG tube. Laboratories: Recent Labs 02/13/18 0529 02/13/18 1105 02/13/18 2139 02/14/187 PH 7.34* 7.33* 7.46* 7.45* PCO2 55* 56* 42 44* PO2 74 79 63* 64* HCO3 29* 29* 30* 30* [id number] 148* 198* 158* -- Recent Labs 02/12/1830402/13/18133 WBC 7.94 7.38 HB 11.4* 11.4* HCT 35.7* 36.2 MCV 87.7 89.4 PLT 185 189 NEUTROPHILCO 6.08 -- LYMPHSABS 1.62 -- MONOCYTECO 0.16 -- EOSCO 0.03 -- BASOPHILCO 0.02 -- IMGRANABS 0.03 -- No results for input(s): INRPT, APTT, FIBRINOGEN in the last 720 hours. Recent Labs 02/12/1830402/12/18200402/13/1813302/14/18456 NA 141 < > 143 144 145 K 3.0* < > 3.8 3.9 3.3* CL 103 < > 107 106 108 BICARB 28 < > 27 28 28 BUN 21* < > 23* 23* 23* CR 1.33* < > 1.56* 1.48* 1.36* CA 7.4* < > 7.1* 7.2* 7.6* MG 2.1 -- 2.1 2.1 2.0 PO4 1.6* -- -- 3.4 2.0* ANIONGAP 10 < > 9 10 9 < > = values in this interval not displayed. Recent Labs 02/14/18 0300 02/14/18 0457 02/14/18 0504 02/14/18 0632 02/14/18 0736 02/14/18 0847 02/14/18 0950 02/14/18 1055 GLU 139* 143* 152* 138* 155* 140* 162* 179* Recent Labs 02/12/18 03002/13/1813302/14/18456 ALB 2.2* 2.1* 2.1* Lab Orders - In Process (Through next 24h) Start Ordered 02/11/18 0015 CULTURE, BLOOD BACTI & YEAST ONCE 02/11/18 0019 02/11/18 0015 CULTURE, BLOOD BACTI & YEAST ONCE 02/11/18 0019 Microbiology: RVP (02/11/2018): positive metanpneumovirus. BCx (02/11/2018): NGTD x2. Urine S. Pneumonia Ag (02/11/2018): negative. Urine Legionella Ag (02/11/2018): negative. Sputum Cx from ETT (02/11/2018): NGTD. -No squams, mod PMNs, no orgs. MSSA/MRSA Nares (02/11/2018): neg. Imaging: CXR 02/14/2018: IMPRESSION: Increased dense retrocardiac and stable infrahilar opacification, most likely aspiration or developing pneumonia. CXR 02/13/2018: obtained post-supination IMPRESSION: Dense retrocardiac opacification and nodular right infrahilar opacities most suggestive of aspiration or pneumonia. CXR 02/12/2018: IMPRESSION: Endotracheal tube terminates in the high trachea, 6.7 cm above the jim. Abd XR Feeding Tube Eval 02/12/2018: IMPRESSION: Of note, the patient is prone, and images have not been corrected. An orogastric tube is id entified terminating below the diaphragm likely within the body of the stomach. CXR 02/10/2018: IMPRESSION: 1. Redemonstration of diffuse bilateral extensive patchy airspace opacities. 2. Enteric tube tip terminates approximately 5 cm above the jim. EKG/Echocardiogram: No new. Current Facility-Administered Medications Medication Dose Route Frequency Last Rate insulin regular in NaCl 0.9% IV infusion (1 unit/mL) 0.1-50 Units/hr intravenous ROMARIO NUOUS 5 Units/hr (02/14/18 1055) propofol (DIPRIVAN) injection 0.5-50 mcg/kg/min (Dosing Weight) intravenous CONTINUOUS 25 mcg/kg/min (02/14/18 1141) Current Facility-Administered Medications Medication Dose Route Frequency Last Rate atorvastatin (LIPITOR) tablet 10 mg 10 mg feeding tube DAILY budesonide (PULMICORT) 0.5 mg/2 mL nebulizer suspension 0.5 mg 0.5 mg inhalation BID cefTRIAXone (ROCEPHIN) injection 2 g 2 g intravenous Q24H chlorhexidine (PERIDEX) mouthwash 15 mL 15 mL oral Q6H docusate sodium liquid 100 mg 100 mg feeding tube BID enoxaparin (LOVENOX) injection 40 mg 40 mg subcutaneous Q12H (Scheduled) famotidine (PEPCID) tablet 20 mg 20 mg feeding tube BID gabapentin (NEURONTIN) liquid 300 mg 300 mg feeding tube TID ipratropium-albuterol (DUO-NEB) nebulizer solution 3 mL 3 mL inhalation Q4H nystatin (MYCOSTATIN) powder topical BID polyethylene glycol (MIRALAX) packet 17 g 17 g feeding tube DAILY senna (SENOKOT) liquid 17.6 mg 10 mL feeding tube BID sertraline (ZOLOFT) tablet 100 mg 100 mg feeding tube DAILY Current Facility-Administered Medications Medication Dose Route Frequency Last Rate acetaminophen (TYLENOL) oral suspension 1,000 mg 1,000 mg feeding tube TID PRN bisacodyl (DULCOLAX) suppository 10 mg 10 mg rectal DAILY PRN dextrose 5%-NaCl 0.45% IV infusion 5-400 mL intravenous PRN dextrose 50 % in water IV 15-150 mL 15-150 mL intravenous PRN glucose chewable tablet 4-40 g 4-40 g oral PRN hydrALAZINE (APRESOLINE) injection 10 mg 10 mg intravenous Q4H PRN insulin regular bolus from continuous infusion 1-50 Units 1-50 Units intravenous NE EDED (BOLUS) menthol-zinc oxide (CALAZIME) topical paste 0.2%-16.5% topical QID PRN oxyCODONE (immediate release) (ROXICODONE) tablet 5-10 mg 5-10 mg feeding tube Q4H PRN polyethylene glycol (MIRALAX) packet 34 g 34 g feeding tube TID PRN propofol (DIPRIVAN) bolus from continuous infusion 10-20 mg 10-20 mg intravenous Q15MI N PRN white petrolatum-mineral oil-lanolin (LACRILUBE) 83-15 % ophthalmic ointment Both Eye s PRN Assessment & Plan: Sarah Reeves is a 62 y.o. woman admitted to the MICU for acute hypoxemic respiratory fail ure in s/o moderate ARDS likely 2/2 metapneumovirus.. Neurological #Sedated: Current sedation package includes propofol with hydromorphone prn for pain relief . -Continue on propofol. RASS goal -2. -When propofol was weaned, was over-breathing vent with increasing HTN/tachycardia. -Daily sedation vacation -Triglycerides 305 H on 02/13. #Chronic pain: -Increase oxycodone 5-10 mg Q4H prn 1st line pain. -CPOT goal of (0 to +2). -Home gabapentin 300 mg TID. #Depression: -Continue sertraline 100 mg QDAY. Cardiovascular #Paroxysmal supraventricular tachycardia: Patient had multiple asymptomatic runs of SVT at the outside hospital which subsided after starting metoprolol 25 mg/bid. -Hold metoprolol tart 25 mg BID. -CTM. #HTN: Normotensive on arrival, will hold any antihypertensives at this time in the setting of acu te infection. Home lisinopril 20 mg QDAY was [facility] [facility] 02[facility]. -HTN was improving s/p diuresis initially. However, as sedation was being weaned and in s/o hydromorphone being D/C'd overnight on 02/13, became more hypertens neo with SBP 180s-190s. -Monitor for now, and anticipate BP to decrease when back on proper sedation. -Hydralazine 10 mg IV prn SBP > 180. #HLD: -Continue atorvastatin 10 mg QDAY. #Presumed HFpEF: Last TTE 10/2017 showed LVEF 65-70% with grade 1 diastolic dysfunction with normal RV size and function. BNP 2,080 on arrival. Likely volume overload on exam. IV lasix 40 mg x2 on . -SCr improving with diuresis, add'l IV lasix 60 mg + 40 KCl. -Goal net neg 0.5-1.0L. -Strict I/Os. Daily weights. -Monitor. Respiratory #Fever #Acute hypoxemic hypercapnic respiratory failure requiring intubation #ARDS, Moderate #Metapneumovirus #Hypervolemia Hypoxemic respiratory failure likely 2/2 metapneumovirus +/- superimposed bacterial pneumon ia with component of hypervolemia in setting of presumed HFpEF (NTproBNP on arrival 2000s). Course complicated by moderate ARDS based off ABG 02/11 (PaO2/FiO2 ~157), bilateral opacitie s on CXR, etc. Empirically s/p oseltamivir x5d course at OSH (unclear influenza PCR positivi ty at OSH). Pt was initially treated with IV CTX + azithro x3d (02/08-02/10) and vanco added 02/10 at OSH [facility]. Pt already with poor baseline pulm function in setting of OLIVIA. Urine S. p neumo and legionella ag neg. MRSA nares neg. Vanc D/C 02/12. D/C azithro 02/13 as completed 5 day course (02/08-02/12). D/C zosyn (02/11-02/13) -Continue weaning down PEEP per PETAL protocol. -Goal Pplateau <30. -Cont CTX 2g IV Q24H for total 7 day abx course (01/12-02/14). -May need to elongate course if developing leukocytosis. -F/u repeat BCx 02/14. -F/u repeat sputum cx (). -F/u sputum cx (02/11) - mod PMNs, no orgs. #OLIVIA -On V-AC as above. #Moderate persistent bronchial asthma -Home budesonide BID. -Duonebs Q4H rajeev. #Presumed Influenza at OSH: No clear documentation of positivity, s/p 5 days of Tamiflu [employer]NAGER. On arrival to [facility], influe nza A/B negative on 02/11/2018. GI / Nutrition #OG tube -Nutrition consulted 02/11. -TF started 02/11. Continue increasing to goal 30 mL/hr while on propfol per n utrition. -Keyonna kefir 1/2 container BID, per nutrition. / Renal #NANCY on CKD stage III (Baseline creatinine 1.3mg/dl per chart review) Likely pre-renal in setting of aggressive diuresis on 02/11-02/12. -BUN/Cr continues to improve with diuresis. -IV lasix 60 mg as above. -Continue to monitor daily #Metabolic Alkalosis: Likely 2/2 in setting of aggressive diuresis. -Monitor. Infectious Disease # Fever: D/C'd vanc/azithro 02/13 and transitioned from zosyn -> IV CTX until 02/14 for 7 day total abx course. -F/u repeat BCx 02/14. -F/u repeat sputum cx 02/14. -APAP prn. # See respiratory section. Hematology / Oncology No acute active issues. Endocrine #DMII (Last A1c was 10.6mg/dl per outside hospital records) -On endotool. -Hypoglycemic precautions started. Consultants: Nutrition Feeding: Tube Feeds Analgesia: Oxycodone Sedation: Propofol (RASS Goal -2 (light sedation)) Thromboprophylaxis: LMWH SC Head of Bed: > 30 Ulcer Prophylaxis: H2 shnae Glycemic control: Endotool insulin infusion Mobility Goal: Passive ROM Lines/Tubes/Drains/Airways: L foot PIV, RUE PIV, R wrist PIV, R arterial line, Mendiola and ET Tube. Code Status Code Status Full Code Surrogate Decision Maker Documentation: Surrogate Decision Maker Primary Surrogate Decision Maker Latanya Gunter Sister [phone] Secondary Surrogate Decision Maker Mr. Reeves This patient was staffed with Dr. Leif Matamoros, attending physician. VAN PALMA MD Template created by [facility] 2017 Ron Friedman MD - 02/13/2018 6:28 PM PDT MICU Attending Note I have rounded with the critical care team and personally reviewed Sarah Reeves's availab le data, including medical history, significant events, physical examination and test result s. I agree with the MICU team's assessment and documentation and have participated in the cr eation of today's plan of care, with additions or exceptions as noted. Ht 1.68 m (5' 6.14"), Wt 162 kg (357 lb 2.3 oz), BP 126/58, Pulse 76, Temperature 36.8 C (98.2 F), RR 32, SpO2 94%, BMI 57.4 kg/(m^2). Body mass index is 57.4 kg/m. Lab Results Component Value Date PH 7.33 (L) 02/13/2018 PCO2 56 (H) 02/13/2018 PO2 79 02/13/2018 HCO3 29 (H) 02/13/2018 [id number] 96.3 02/13/2018 FIO2 0.40 02/13/2018 [id number] 198 (L) 02/13/2018 Critical Diagnoses Hypoxic resp failure ARDS moderate Chronic pain metapneumovirus PNA Asthma OLIVIA Obesity pSVTs pEFHF Anemia NOS NANCY Assessment/Plan Stopped prone positioning with improved p/f ratio LTV ventilation (4.5ml/kg), pplat ~28-29; peep 12/fio2 40 Had a few episodes today with increased RR- seems to be a vent flow trigger isseu where the patient was breathing ~30 and vent sensing >50RR; increasing the flow trigger corrected this. Opted to exchange the vent as a first step May need a bronchoscopy to ensure no ball-valve obstruction at level of ETT contributing Diuresis as tolerated; maybe 1L negative today given increasing creatinine [place] study = non-paralysis group Vanc/zosyn and azithromycin stopped and ceftriaxone started for 7 days more Propofol/dilaudid for sedation/pain; also on home gabapentin- may need to reduce with AK I Ron Meeks MD, MA Materials Development Engineer Division of Pulmonary & Critical Care Medicine Pager: [phone] Critical Care Time: I spent 25 minutes in the care and magagement of this patient who is cr itically ill (managing issues that acutely impair one or more vital organ systems such that there is a high probability of imminent or life threatening deterioration in the patient's c ondition). Jones Blum MD - 02/13/2018 11:58 AM PDTFormatting of this note might be different from the marcos estrada. MICU Attending Note Hospital Admission Date: 02/11/2018 Hospital Day: 2 ID: Sarah Reeves is a 62 y.o. female with metapneumovirus induced ARDS. Severe. 24 Hour Events: Re-proned at 12:30 am due to low PF Rapid vent triggering and high peak P today - concern for kinked tube, pt flipped to sup ine at 10 am with improvement in peaks and PF vanco stopped when mrsa swab neg Sputum culture remains ngtd 24 Hour Net IO = -1L Pertinent Diagnostics: CXR 02/13/2018 IMPRESSION: Dense retrocardiac opacification and nodular right infrahilar opacities most suggestive of aspiration or pneumonia. ETT 5 cm above jim. ASSESSMENT/PLAN: Active Diagnoses: #. ARDS, moderate //decrease Vt to 5ml/kg, peep down to 14, fio2 40 with plat 28 //wean midaz, rass goal -2 //io goal negative, cont lasix //ceftriaxone for 2 addl days - 7 total, stop azithro today //on PETAL, randomized to non-paralytic armed //io goal negative #. Metapneumovirus URI #. Morbid Obesity #. CKD #. SVT #. DM2 Surrogate: has and sister Latanya. Latanya was involved in rounds today and updated. ICU Bundle: #. Nutrition: TF #. Mobility Plan: prom #. Lines: Piv, R rad art line, mendiola, ett, og #. DVT: enox #. GI: famotidine #. Glycemic Control: at goal ATTESTATION: I evaluated the patient at the bedside with the MICU team. Please see their n ote for a detailed rounding summary. I reviewed the documented findings, relevant data, and recent imaging. I agree with the assessment and plan as described in the resident's note w ith the following exceptions/additions as noted above. I spent a total of 55 minutes in the care and management, not including procedural time, of this patient who is critically ill. Leif Matamoros MD [facility] [address] [place] [phone] Van Saucedo M D - 02/13/2018 5:53 AM PDT [facility] MEDICAL ICU - PROGRESS NOTE Hospital Day: 2 | ICU Day: 3 ID/CC: Sarah Reeves is a 62 y.o. Woman w/ admitted to the MICU for acute hypoxemic hyperc arbic respiratory failure in setting of moderate ARDS 2/2 metapneumovirus and suspected bila teral pneumonia. Consultants: None. 24 Hour Events: -IV lasix 40 mg x2 + 20 KCl. -Midaz 2 mg x2. -FiO2 increased to 50-60%; PEEP increased to 14. -Supined at 18:00. P/F 108. -Re-proned overnight. -Vanc D/C'd 2/2 neg MRSA/MSSA neg. -Increased peak pressures and concern for difficulty passing deep suction catheter with inc reased hypertension 02/13 am while pt proned. Subjective: -Pt sedated, intubated, and proned so unable to obtain hx. Vital Signs: Cuff BP | No Data Recorded Cuff MAP | No Data Recorded Art Line BP 122/56 (02/13/180) | ART Line BP Min: 99/51 Max: 161/71 Art Line MAP 79 mmHg (02/13/18499) | ART Line BP Mean Min: 66 mmHg Max: 102 mmHg HR 78 (02/13/18499) | Pulse Min: 66 Max: 106 | Cardiac Rhythm: Normal Sinus Rhythm;PACs ;PVCs (02/13/18399) Temp 36.5 C (97.7 F) (02/13/18399) | Temp Min: 36.4 C (97.5 F) Max: 37.3 C (9 9.1 F) RR (!) 32 (02/13/18499) | Resp Min: 20 Max: 36 SpO2 96 % (02/13/18499) | SpO2 Min: 90 % Max: 98 % O2 Device Endotracheal tube (02/13/18399) | Volume AC (02/13/18433) Ventilator Settings Vt: 4.5 mL/Kg (268.2 mL) RR: 32 bpm [place] BW: 59.6 kg FiO2 50 fraction of O2 PEEP Set 16 cm H2O Observed Ventilation Vex: Mandatory 280 ml | Spontaneous 320 ml RR: 32 bpm Minute Ventilation: 9.1 L/MIN SpO2 96 % Ventilator Diagnostics (Past 24 hrs) Pplat 29 cm H2O (02/13/18433) | Driving Pressure 11 cm H2O (02/13/18433) Total PEEP 18 cm H2O (02/13/18433) | AutoPEEP SBT Assessed | SBT Outcome Cam/RASS Flowsheet Row Most Recent Value CAM (Confusion Assessment Method) Unable to complete assessment (see comments) RASS Scale -3 CPOT 0 (02/13/18399) Intake/Output Summary (Last 24 hours) at 02/13/18611 Last data filed at 02/13/18499 Gross per 24 hour Intake 1888.21 ml Output 2895 ml Net -1006.79 ml Intake/Output Summary (since admission) at 02/11/18 0012 Last data filed at 02/13/18 0500 Gross for the last 2 days Intake 4989.61 ml Output 30114 ml Net since Admission -5872.39 ml BMI: 57.5 Weights 162 kg (357 lb 2.3 oz) (02/11/18 0054) Admit Wt: 162 kg (357 lb 2.3 oz) Physical Exam: GENERAL: Obese female, sedated and intubated and proned. CARDIAC: unable to assess 2/2 pronation. RESPIRATORY: Coarse mech vent breath sounds bilaterally. ABDOMEN: unable to assess 2/2 pronation. EXTREMITIES: WWP. 2+ pitting edema to BLE. NEUROLOGICAL: Sedated and intubated and proned. SKIN: Skin normal color, texture and turgor with no lesions or eruptions. LINES/TUBES: L foot PIV, RUE PIV; R wrist PIV; ETT; Mendiola; OG tube. Laboratories: Recent Labs 02/12/18191002/13/1813302/13/18 05 PH 7.35* 7.34* 7.34* PCO2 54* 56* 55* PO2 65* 67* 74 HCO3 29* 29* 29* [id number] 108* 134* 148* Recent Labs 02/11/186 02/12/1830402/13/18133 WBC 10.69 7.94 7.38 HB 11.7* 11.4* 11.4* HCT 37.0 35.7* 36.2 MCV 89.2 87.7 89.4 PLT 168 185 189 NEUTROPHILCO 9.65* 6.08 -- LYMPHSABS 0.75* 1.62 -- MONOCYTECO 0.21 0.16 -- EOSCO 0.00 0.03 -- BASOPHILCO 0.03 0.02 -- IMGRANABS 0.05 0.03 -- No results for input(s): INRPT, APTT, FIBRINOGEN in the last 720 hours. Recent Labs 02/11/18 00302/12/1830402/12/18 0802/12/18200402/13/18 013 NA 135* 141 142 143 144 K 4.5 3.0* 3.9 3.8 3.9 CL 103 103 107 107 106 BICARB 23 28 29 27 28 BUN 29* 21* 21* 23* 23* CR 1.23* 1.33* 1.39* 1.56* 1.48* CA 7.6* 7.4* 7.2* 7.1* 7.2* MG 2.1 2.1 -- 2.1 2.1 PO4 1.8* 1.6* -- -- 3.4 ANIONGAP 9 10 6 9 10 Recent Labs 02/12/18 2237 02/12/18 2341 02/13/18 0055 02/13/18 0134 02/13/18 0159 02/13/18 0306 02/13/18 0410 02/13/18 0529 GLU 174* 164* 181* 170* 164* 165* 156* 160* Recent Labs 02/11/18 0036 02/12/18 0305 02/13/18 0134 AST 40 -- -- ALT 22 -- -- TBILI 0.5 -- -- AP 59 -- -- ALB 2.6* 2.2* 2.1* TP 6.4 -- -- Recent Labs 02/11/18 0036 02/11/18 0040 LACTICACID -- 1.1 TROPONIN <0.02 -- NTPROBNP 2,080* -- Microbiology: RVP (02/11/2018): positive metanpneumovirus. BCx (02/11/2018): NGTD x2. Urine S. Pneumonia Ag (02/11/2018): negative. Urine Legionella Ag (02/11/2018): pending. Sputum Cx from ETT (02/11/2018): NGTD. -No squams, mod PMNs, no orgs. MSSA/MRSA Nares (02/11/2018): neg. Imaging: CXR 02/13/2018: obtained post-supination IMPRESSION: Dense retrocardiac opacification and nodular right infrahilar opacities most suggestive of aspiration or pneumonia. CXR 02/12/2018: IMPRESSION: Endotracheal tube terminates in the high trachea, 6.7 cm above the jim. Abd XR Feeding Tube Eval 02/12/2018: IMPRESSION: Of note, the patient is prone, and images have not been corrected. An orogastric tube is id entified terminating below the diaphragm likely within the body of the stomach. CXR 02/10/2018: IMPRESSION: 1. Redemonstration of diffuse bilateral extensive patchy airspace opacities. 2. Enteric tube tip terminates approximately 5 cm above the jim. EKG/Echocardiogram: EKG 02/10/2018): Normal sinus rhythm, left axis, rate 64, Qtc 474. Current Facility-Administered Medications Medication Dose Route Frequency Last Rate HYDROmorphone (DILAUDID) 100 mg in dextrose 5 % 100 mL (1 mg/mL) IV infusion 0.2-4 mg/ hr intravenous CONTINUOUS 0.2 mg/hr (02/13/18 0500) insulin regular in NaCl 0.9% IV infusion (1 unit/mL) 0.1-50 Units/hr intravenous ROMARIO NUOUS 6 Units/hr (02/13/18 0410) midazolam (VERSED) 100 mg in NaCl 0.9 % 100 mL (1 mg/mL) IV infusion 0.5-10 mg/hr intr avenous CONTINUOUS 2 mg/hr (02/13/18 0540) propofol (DIPRIVAN) injection 0.5-50 mcg/kg/min (Dosing Weight) intravenous CONTINUOUS 50 mcg/kg/min (02/13/18 0531) Current Facility-Administered Medications Medication Dose Route Frequency Last Rate atorvastatin (LIPITOR) tablet 10 mg 10 mg feeding tube DAILY azithromycin (ZITHROMAX) tablet 500 mg 500 mg feeding tube Q24H budesonide (PULMICORT) 0.5 mg/2 mL nebulizer suspension 0.5 mg 0.5 mg inhalation BID chlorhexidine (PERIDEX) mouthwash 15 mL 15 mL oral Q6H docusate sodium liquid 100 mg 100 mg feeding tube BID enoxaparin (LOVENOX) injection 40 mg 40 mg subcutaneous Q12H (Scheduled) famotidine (PEPCID) tablet 20 mg 20 mg feeding tube BID gabapentin (NEURONTIN) liquid 300 mg 300 mg feeding tube TID ipratropium-albuterol (DUO-NEB) nebulizer solution 3 mL 3 mL inhalation Q4H nystatin (MYCOSTATIN) powder topical BID piperacillin-tazobactam (ZOSYN) IV 4.5 g 4.5 g intravenous Q8H Stopped (02/13/18 0400) polyethylene glycol (MIRALAX) packet 17 g 17 g feeding tube DAILY senna (SENOKOT) liquid 17.6 mg 10 mL feeding tube BID sertraline (ZOLOFT) tablet 100 mg 100 mg feeding tube DAILY thiamine tablet 100 mg 100 mg feeding tube DAILY Current Facility-Administered Medications Medication Dose Route Frequency Last Rate acetaminophen (TYLENOL) oral suspension 1,000 mg 1,000 mg feeding tube TID PRN bisacodyl (DULCOLAX) suppository 10 mg 10 mg rectal DAILY PRN dextrose 5%-NaCl 0.45% IV infusion 5-400 mL intravenous PRN dextrose 50 % in water IV 15-150 mL 15-150 mL intravenous PRN glucose chewable tablet 4-40 g 4-40 g oral PRN HYDROmorphone bolus from continuous infusion 0.5-1.5 mg 0.5-1.5 mg intravenous Q1H PRN insulin regular bolus from continuous infusion 1-50 Units 1-50 Units intravenous NE EDED (BOLUS) menthol-zinc oxide (CALAZIME) topical paste 0.2%-16.5% topical QID PRN midazolam (VERSED) bolus from continuous infusion 1-2 mg 1-2 mg intravenous Q1H PRN oxyCODONE (immediate release) (ROXICODONE) tablet 5 mg 5 mg feeding tube Q4H PRN polyethylene glycol (MIRALAX) packet 34 g 34 g feeding tube TID PRN propofol (DIPRIVAN) bolus from continuous infusion 10-20 mg 10-20 mg intravenous Q15MI N PRN Assessment & Plan: Sarah Reeves is a 62 y.o. woman admitted to the MICU for acute hypoxemic respiratory fail ure in s/o moderate ARDS likely 2/2 metapneumovirus. Neurological #Sedated: Current sedation package includes propofol with hydromorphone prn for pain relief . -Daily sedation vacation -Triglycerides 305 H on 02/13. -Consider bite block if c/f pt biting ETT causing obstruction. -Wean midazolam 02/13 with goal to remain on propofol. #Chronic pain: -Oxycodone 5 mg Q4H prn 1st line pain. -Hydromorphone 0.5-1.5 mg IV Q2H prn 2nd line pain. -CPOT goal of (0 to +2). -Home gabapentin 300 mg TID. #Depression: -Continue sertraline 100 mg QDAY. Cardiovascular #Paroxysmal supraventricular tachycardia: Patient had multiple asymptomatic runs of SVT at the outside hospital which subsided after starting metoprolol 25 mg/bid. -Hold Metoprolol tart 25 mg BID. -CTM. #HTN, Improving: Normotensive on arrival, will hold any antihypertensives at this time in the setting of acu te infection. Home lisinopril 20 mg QDAY was held upon arrival to [facility] 02/10. -HTN improving s/p diuresis. Although was increased to 150s/160s on 02/13 am, l geenaely 2/2 ETT distress in setting of proning that has since improved s/p supination. -Monitor. May need to re-start low-dose home antihypertensives once more information obati ibeth. #HLD: -Continue atorvastatin 10 mg QDAY. #Presumed HFpEF: Last TTE 10/2017 showed LVEF 65-70% with grade 1 diastolic dysfunction with normal RV size and function. BNP 2,080 on arrival. Likely volume overload on exam. IV lasix 40 mg x2 on . -SCr increased, IV lasix 60 mg + 20 KCl. -Goal net neg 0.5-1.0L. -Strict I/Os. Daily weights. -Monitor. Respiratory #Acute hypoxemic hypercapnic respiratory failure requiring intubation #ARDS, Moderate #Metapneumovirus #Bilateral lower lobe pneumonia #Hypervolemia Hypoxemic respiratory failure likely 2/2 metapneumovirus +/- superimposed bacterial pneumon ia with component of hypervolemia in setting of presumed HFpEF (NTproBNP on arrival 2000s). Course complicated by moderate ARDS based off ABG 02/11 (PaO2/FiO2 ~157), bilateral opacitie s on CXR, etc. Empirically s/p oseltamivir x5d course at OSH (unclear influenza PCR positivi ty at OSH). Pt was initially treated with IV CTX + azithro x3d (02/08-02/10) and vanco added 02/10 at OSH [facility]NAGER. Pt already with poor baseline pulm function in setting of OLIVIA. Proned from 00:00 to 18:00. Repeat ABG with decreased P/F from 160 --> 108. -Pt again proned on 02/12 at 00:30. Supinated again at 10:00 due to increased peak pressur es and concern for inadequate tidal volumes and desats. Repeat CXR showed ETT still in high position. Once supine, was able to pass deep suction catheter (was likely 2/2 tight ziptie a nd difficult head positioning contributing to eleaved peak pressures) as pressures decreased once supine. Urine S. pneumo and legionella ag neg. MRSA nares neg. -No pronation today. -Goal Pplateau <30. -Vanco D/C'd 02/12 as MRSA nares neg. -D/C azithro -D/C azithro as completed 5 day course (02/08-02/12). -Start CTX 2g IV Q24H for total 7 day abx course (01/12-02/14). -D/C zosyn (02/11-02/13); previously CTX 02/08-02/11. -F/u sputum cx (02/11) - mod PMNs, no orgs. -Plan to de-escalate abx 02/13. #OLIVIA -On V-AC as above. #Moderate persistent bronchial asthma -Home budesonide BID. -Duonebs Q4H rajeev. #Presumed Influenza at OSH: No clear documentation of positivity, s/p 5 days of Tamiflu STALLION MANAGER. On arrival to [facility], influe nza A/B negative on 02/11/2018. GI / Nutrition #OG tube -Nutrition consulted 02/11. -TF started 02/11. Increase TF to goal 50 mL/hr now that pt supine. / Renal #NANCY on CKD stage III (Baseline creatinine 1.3mg/dl per chart review) Likely pre-renal in setting of aggressive diuresis on 02/11-02/12. -BUN/Cr now 23/1.48 after IV lasix 40 x2 on 02/12. -IV lasix 60 mg as above. -Continue to monitor daily #Metabolic Alkalosis: Likely 2/2 in setting of aggressive diuresis. -Monitor. Infectious Disease # See respiratory section. Hematology / Oncology No acute active issues. Endocrine #DMII (Last A1c was 10.6mg/dl per outside hospital records) -Moderate SSI. -Hypoglycemic precautions started. Consultants: None. Feeding: TF. Analgesia: Oxycodone, Hydromorphone Sedation: Propofol (RASS Goal -3); wean midazolam. Thromboprophylaxis: LMWH SC Head of Bed: reverse trendelnberg Ulcer Prophylaxis: H2 shane Glycemic control: endotool Mobility Goal: Bed rest Lines/Tubes/Drains/Airways: L foot PIV, RUE PIV, R wrist PIV; Mendiola, ET Tube, OG tube. Code Status Code Status Full Code Surrogate Decision Maker Documentation: Surrogate Decision Maker Primary Surrogate Decision Maker Latanya Gunter Sister [phone] Secondary Surrogate Decision Maker Mr. Reeves This patient was staffed with Dr. Leif Matamoros, attending physician. VAN PALMA MD Template created by [employer] 2017 uRon chan MD - 02/12/2018 5:29 PM PDT MICU Attending Note I have rounded with the critical care team and personally reviewed Sarah Reeves's availab le data, including medical history, significant events, physical examination and test result s. I agree with the MICU team's assessment and documentation and have participated in the cr eation of today's plan of care, with additions or exceptions as noted. Ht 1.68 m (5' 6.14"), Wt 162 kg (357 lb 2.3 oz), BP 126/58, Pulse 84, Temperature 37.3 C (99.1 F), RR 32, SpO2 95%, BMI 57.4 kg/(m^2). Body mass index is 57.4 kg/m. Lab Results Component Value Date PH 7.35 (L) 02/12/2018 PCO2 54 (H) 02/12/2018 PO2 64 (L) 02/12/2018 HCO3 29 (H) 02/12/2018 [id number] 92.7 02/12/2018 FIO2 0.40 02/12/2018 [id number] 160 (L) 02/12/2018 Critical Diagnoses Hypoxic resp failure ARDS moderate Chronic pain metapneumovirus PNA Asthma OLIVIA Obesity pSVTs pEFHF Anemia NOS NANCY Assessment/Plan Prone positioning with improved p/f ratio LTV ventilation (4.5ml/kg), pplat ~28-29; peep 14/fio2 40 Diuresis as tolerated; maybe 1-2L negative today given increasing creatinine [place] study = non-paralysis group Vanc/zosyn and azithromycin Propofol/dilaudid for sedation/pain; also on home gabapentin- may need to reduce with AK I Ron Meeks MD, MA Materials Development Engineer Division of Pulmonary & Critical Care Medicine Pager: [phone] Critical Care Time: I spent 15 minutes in the care and magagement of this patient who is cr itically ill (managing issues that acutely impair one or more vital organ systems such that there is a high probability of imminent or life threatening deterioration in the patient's c ondition). Jones Blum MD - 02/12/2018 9:16 AM PDTFormatting of this note might be different from the marcos estrada. MICU Attending Note Hospital Admission Date: 02/11/2018 Hospital Day: 1 ID: Sarah Reeves is a 62 y.o. female with metapneumovirus induced ARDS. Severe. 24 Hour Events: Proned overnight d/t persistently P/F < 150 24 Hour Net IO = -3.1L ASSESSMENT/PLAN: #. ARDS, moderate //decrease Vt to 5 ml/kg, current plats ~ 30 with peep 8. //on PETAL, randomized to non-paralytic armed //io goal negative //cont vanco, zosyn and azithro pending cultures //mrsa nasal swab pending //RASS goal -4 with propofol and dilaudid prn //proned until 6 pm //cont diuresis #. Metapneumovirus URI #. Morbid Obesity #. CKD #. SVT #. DM2 Surrogate: has and sister Latanya. Latanya was involved in rounds today and updated. ICU Bundle: #. Nutrition: TF #. Mobility Plan: proned #. Lines: piv, ett, og, mendiola, art line #. DVT: enox #. GI: famotidine #. Glycemic Control: at goal ATTESTATION: I evaluated the patient at the bedside with the MICU team. Please see their n ote for a detailed rounding summary. I reviewed the documented findings, relevant data, and recent imaging. I agree with the assessment and plan as described in the resident's note w ith the following exceptions/additions as noted above. I spent a total of 40 minutes in the care and management, not including procedural time, of this patient who is critically ill. Leif Matamoros MD [facility] [address] [place] [phone] an Palma M D - 02/12/2018 6:07 AM PDT [facility] MEDICAL ICU - PROGRESS NOTE Hospital Day: 1 | ICU Day: 2 ID/CC: Sarah Reeves is a 62 y.o. Woman w/ admitted to the MICU for acute hypoxemic hyperc arbic respiratory failure in setting of moderate ARDS 2/2 metapneumovirus and suspected bila teral pneumonia. Consultants: None. 24 Hour Events: -Met diuresis goal, neg 3L. -Continued on IV vanc, zosyn, and azithro. -Started endotool for CBGs. -Proned patient overnight ~00:00. -Art line placed. -80 KCl PO and 20 IV this am. Subjective: -Pt sedated, intubated, and proned so unable to obtain hx. Vital Signs: Cuff BP 126/58 (02/11/18 2300) | BP Min: 126/58 Max: 182/71 Cuff MAP 79 mmHg (02/11/18 2300) | BP Mean Min: 77 mmHg Max: 105 mmHg Art Line BP 161/71 (02/12/18 0600) | ART Line BP Min: 119/52 Max: 161/71 Art Line MAP 100 mmHg (02/12/18 06) | ART Line BP Mean Min: 70 mmHg Max: 100 mmHg HR 96 (02/12/18 06) | Pulse Min: 68 Max: 99 | Cardiac Rhythm: Normal Sinus Rhythm;PVCs; PACs (02/12/18 0400) Temp 37.5 C (99.5 F) (02/12/18 0100) | Temp Min: 37.5 C (99.5 F) Max: 38.3 C (1 00.9 F) RR (!) 32 (02/12/18 06) | Resp Min: 20 Max: 37 SpO2 92 % (04/03/18 0600) | SpO2 Min: 87 % Max: 99 % O2 Device Endotracheal tube (02/12/18 0500) | Volume AC (02/12/18 0411) Ventilator Settings Vt: 5 mL/Kg (298 mL) RR: 32 bpm [place] BW: 59.6 kg FiO2 40 fraction of O2 PEEP Set 14 cm H2O Observed Ventilation Vex: Mandatory 310 ml | Spontaneous 320 ml RR: 32 bpm Minute Ventilation: 10.1 L/MIN SpO2 92 % Ventilator Diagnostics (Past 24 hrs) Pplat 28 cm H2O (02/12/18528) | Driving Pressure 14 cm H2O (02/12/18528) Total PEEP 14 cm H2O (02/12/18528) | AutoPEEP SBT Assessed | SBT Outcome Cam/RASS Flowsheet Row Most Recent Value CAM (Confusion Assessment Method) Unable to complete assessment (see comments) RASS Scale -4 CPOT 3 (02/12/18 0406) Intake/Output Summary (Last 24 hours) at 02/12/18 0625 Last data filed at 02/12/18611 Gross per 24 hour Intake 2449.88 ml Output 5502 ml Net -3052.12 ml Intake/Output Summary (since admission) at 02/11/18 0012 Last data filed at 02/12/18 06 Gross for the last 1 days Intake 3101.4 ml Output 7967 ml Net since Admission -4865.6 ml BMI: 57.5 Weights 162 kg (357 lb 2.3 oz) (02/11/18 0054) Admit Wt: 162 kg (357 lb 2.3 oz) Physical Exam: GENERAL: Obese female, sedated and intubated and proned. CARDIAC: unable to assess 2/2 pronation. RESPIRATORY: Coarse mech vent breath sounds bilaterally. ABDOMEN: unable to assess 2/2 pronation. EXTREMITIES: WWP. 2+ pitting edema to BLE. NEUROLOGICAL: Sedated and intubated and proned. SKIN: Skin normal color, texture and turgor with no lesions or eruptions. LINES/TUBES: L foot PIV, RUE PIV; R wrist PIV; ETT; Mendiola; OG tube. Laboratories: Recent Labs 02/11/180 02/12/18 0108 02/12/18 0503 PH 7.43 7.44 7.42 PCO2 45* 45* 47* PO2 54* 71* 68* HCO3 29* 30* 30* [id number] 135* 178* 170* Recent Labs 02/11/18 0036 02/12/18 0305 WBC 10.69 7.94 HB 11.7* 11.4* HCT 37.0 35.7* MCV 89.2 87.7 PLT 168 185 NEUTROPHILCO 9.65* 6.08 LYMPHSABS 0.75* 1.62 MONOCYTECO 0.21 0.16 EOSCO 0.00 0.03 BASOPHILCO 0.03 0.02 IMGRANABS 0.05 0.03 No results for input(s): INRPT, APTT, FIBRINOGEN in the last 720 hours. Recent Labs 02/11/18 0036 02/12/18 0305 NA 135* 141 K 4.5 3.0* CL 103 103 BICARB 23 28 BUN 29* 21* CR 1.23* 1.33* CA 7.6* 7.4* MG 2.1 2.1 PO4 1.8* 1.6* ANIONGAP 9 10 Recent Labs 02/11/18 2303 02/12/18 0007 02/12/18 0112 02/12/18 0215 02/12/18 0305 02/12/18 0307 02/12/18 0419 02/12/18 0510 GLU 180* 155* 138* 160* 152* 163* 127* 144* Recent Labs 02/11/18 0036 02/12/18 0305 AST 40 -- ALT 22 -- TBILI 0.5 -- AP 59 -- ALB 2.6* 2.2* TP 6.4 -- Recent Labs 02/11/18 0036 02/11/18 0040 LACTICACID -- 1.1 TROPONIN <0.02 -- NTPROBNP 2,080* -- Lab Orders - In Process (Through next 24h) Start Ordered 02/11/18 0030 STREP PNEUMONIAE AG, URINE COLLECT NOW, X1 02/11/18 0019 02/11/18 0030 LEGIONELLA AG, URINE COLLECT NOW, X1 02/11/18 0019 02/11/18 0015 CULTURE, BLOOD BACTI & YEAST ONCE 02/11/18 0019 02/11/18 0015 CULTURE, BLOOD BACTI & YEAST ONCE 02/11/18 0019 Microbiology: RVP (02/11/2018): positive metanpneumovirus. BCx (02/11/2018): pending x2. Urine S. Pneumonia Ag (02/11/2018): negative. Urine Legionella Ag (02/11/2018): pending. Sputum Cx from ETT (02/11/2018): pending. -No squams, mod PMNs, no orgs. MRSA Nares (02/11/2018): pending. Imaging: CXR 02/12/2018: IMPRESSION: Endotracheal tube terminates in the high trachea, 6.7 cm above the jim. Abd XR Feeding Tube Eval 02/12/2018: IMPRESSION: Of note, the patient is prone, and images have not been corrected. An orogastric tube is id entified terminating below the diaphragm likely within the body of the stomach. CXR 02/10/2018: IMPRESSION: 1. Redemonstration of diffuse bilateral extensive patchy airspace opacities. 2. Enteric tube tip terminates approximately 5 cm above the jim. EKG/Echocardiogram: EKG 02/10/2018): Normal sinus rhythm, left axis, rate 64, Qtc 474. Current Facility-Administered Medications Medication Dose Route Frequency Last Rate HYDROmorphone (DILAUDID) 100 mg in dextrose 5 % 100 mL (1 mg/mL) IV infusion 0.2-4 mg/ hr intravenous CONTINUOUS 0.2 mg/hr (02/12/18 0400) insulin regular in NaCl 0.9% IV infusion (1 unit/mL) 0.1-50 Units/hr intravenous ROMARIO NUOUS 4 Units/hr (02/12/18 0007) propofol (DIPRIVAN) injection 0.5-50 mcg/kg/min (Dosing Weight) intravenous CONTINUOUS 50 mcg/kg/min (02/12/18 0606) Current Facility-Administered Medications Medication Dose Route Frequency Last Rate atorvastatin (LIPITOR) tablet 10 mg 10 mg feeding tube DAILY azithromycin (ZITHROMAX) tablet 500 mg 500 mg feeding tube Q24H budesonide (PULMICORT) 0.5 mg/2 mL nebulizer suspension 0.5 mg 0.5 mg inhalation BID chlorhexidine (PERIDEX) mouthwash 15 mL 15 mL oral Q6H docusate sodium liquid 100 mg 100 mg feeding tube BID enoxaparin (LOVENOX) injection 40 mg 40 mg subcutaneous Q12H (Scheduled) famotidine (PEPCID) tablet 20 mg 20 mg feeding tube BID gabapentin (NEURONTIN) liquid 300 mg 300 mg feeding tube TID ipratropium-albuterol (DUO-NEB) nebulizer solution 3 mL 3 mL inhalation Q4H nystatin (MYCOSTATIN) powder topical BID piperacillin-tazobactam (ZOSYN) IV 4.5 g 4.5 g intravenous Q8H Stopped (02/12/18 0500) polyethylene glycol (MIRALAX) packet 17 g 17 g feeding tube DAILY potassium & sodium phosphates (K PHOS NEUTRAL) tablet 250 mg 250 mg feeding tube BID potassium chloride IV (peripheral line) 20 mEq 20 mEq intravenous ONCE senna (SENOKOT) liquid 17.6 mg 10 mL feeding tube BID sertraline (ZOLOFT) tablet 100 mg 100 mg feeding tube DAILY thiamine tablet 100 mg 100 mg feeding tube DAILY vancomycin (VANCOCIN) IV 2,000 mg 2,000 mg intravenous Q12H Stopped (02/12/18 0515) Current Facility-Administered Medications Medication Dose Route Frequency Last Rate acetaminophen (TYLENOL) oral suspension 1,000 mg 1,000 mg feeding tube TID PRN bisacodyl (DULCOLAX) suppository 10 mg 10 mg rectal DAILY PRN dextrose 5%-NaCl 0.45% IV infusion 5-400 mL intravenous PRN dextrose 50 % in water IV 15-150 mL 15-150 mL intravenous PRN glucose chewable tablet 4-40 g 4-40 g oral PRN HYDROmorphone bolus from continuous infusion 0.5-1.5 mg 0.5-1.5 mg intravenous Q1H PRN insulin regular bolus from continuous infusion 1-50 Units 1-50 Units intravenous NE EDED (BOLUS) menthol-zinc oxide (CALAZIME) topical paste 0.2%-16.5% topical QID PRN oxyCODONE (immediate release) (ROXICODONE) tablet 5 mg 5 mg feeding tube Q4H PRN polyethylene glycol (MIRALAX) packet 34 g 34 g feeding tube TID PRN propofol (DIPRIVAN) bolus from continuous infusion 10-20 mg 10-20 mg intravenous Q15MI N PRN Assessment & Plan: Sarah Reeves is a 62 y.o. woman admitted to the MICU for acute hypoxemic respiratory fail ure in s/o moderate ARDS likely 2/2 metapneumovirus. Neurological #Sedated: Current sedation package includes propofol with hydromorphone prn for pain relief . -Daily sedation vacation -Check triglycerides 02/13 am. #Chronic pain: -Oxycodone 5 mg Q4H prn 1st line pain. -Hydromorphone 0.5-1.5 mg IV Q2H prn 2nd line pain. -CPOT goal of (0 to +2). -Home gabapentin 300 mg TID. #Depression: -Continue sertraline 100 mg QDAY. Cardiovascular #Paroxysmal supraventricular tachycardia: Patient had multiple asymptomatic runs of SVT at the outside hospital which subsided after starting metoprolol 25 mg/bid. -Hold Metoprolol tart 25 mg BID. -CTM. #HTN, Improving: Normotensive on arrival, will hold any antihypertensives at this time in the setting of acu te infection. Home lisinopril 20 mg QDAY was held upon arrival to [facility] 02/10. -HTN improving s/p diuresis. -Given no significant SCr increase, add'l IV lasix 40 mg x1 + KCl. -Monitor. May need to re-start low-dose home antihypertensives once more information obati ibeth. #HLD: -Continue atorvastatin 10 mg QDAY. #Presumed HFpEF: Last TTE 10/2017 showed LVEF 65-70% with grade 1 diastolic dysfunction with normal RV size and function. BNP 2,080 on arrival. Likely volume overload on exam. -IV lasix 40 mg x1 + KCl. -Net neg 1-2L. -Strict I/Os. Daily weights. -Monitor. Respiratory #Acute hypoxemic hypercapnic respiratory failure requiring intubation #ARDS, Moderate #Metapneumovirus #Bilateral lower lobe pneumonia #Hypervolemia Hypoxemic respiratory failure likely 2/2 metapneumovirus +/- superimposed bacterial pneumon ia with component of hypervolemia in setting of presumed HFpEF (NTproBNP on arrival ). Course complicated by moderate ARDS based off ABG 02/11 (PaO2/FiO2 ~157), bilateral opacitie s on CXR, etc. Empirically s/p oseltamivir x5d course at OSH (unclear influenza PCR positivi ty at OSH). Pt was initially treated with IV CTX + azithro x3d (02/08-02/10) and vanco added 02/10 at OSH [facility]ALLION MANAGER. Pt already with poor baseline pulm function in setting of OLIVIA. -Decrease Vt to 4.5 mL/kg. Decrease PEEP to 12. Decrease RR to 28. -Goal Pplateau <30. -Repeat ABG 02/12 showing improved P/F ratio to 170 (from 120s). -Continue IV vancomycin, zosyn, and PO azithromycin (02/10-present). -F/u MRSA nares swab. If neg, can d/c vanco. -Urine S. pneumo ag neg. -F/u Urine Legionella ag to guide abx therapy. -F/u sputum cx (02/11) - mod PMNs, no orgs. -Plan to de-escalate abx 02/13. #OLIVIA -On V-AC as above. #Moderate persistent bronchial asthma -Home budesonide BID. -Duonebs Q4H rajeev. #Presumed Influenza at OSH: No clear documentation of positivity, s/p 5 days of Tamiflu STALLION MANAGER. On arrival to [facility], influe nza A/B negative on 02/11/2018. GI / Nutrition #OG tube -Nutrition consulted 02/11. -TF started 02/11. On trickle feeds 10 mL/hr while prone. / Renal #CKD stage III (Baseline creatinine 1.3mg/dl per chart review) -Creatinine 1.23mg/dl on arrival. -Continue to monitor daily Infectious Disease # See respiratory section. Hematology / Oncology No acute active issues. Endocrine #DMII (Last A1c was 10.6mg/dl per outside hospital records) -Moderate SSI. -Hypoglycemic precautions started. Consultants: None. Feeding: NPO/Bowel Rest Analgesia: Oxycodone, Hydromorphone Sedation: Propofol (RASS Goal -3) Thromboprophylaxis: LMWH SC Head of Bed: reverse trendelnberg Ulcer Prophylaxis: H2 shane Glycemic control: endotool Mobility Goal: Bed rest Lines/Tubes/Drains/Airways: L foot PIV, RUE PIV, R wrist PIV; Mendiola, ET Tube, OG tube. Code Status Code Status Full Code Surrogate Decision Maker Documentation: Surrogate Decision Maker Primary Surrogate Decision Maker Latanya Gunter Sister [phone] Secondary Surrogate Decision Maker Mr. Lala Mendoza This patient was staffed with Dr. Leif Matamoros, attending physician. VAN PALMA MD Template created by TABITHA 2017 Josr Levy M D - 02/12/2018 3:10 AM [facility] MICU Fellow Note Patient ID: 62 yo woman with history morbid obesity admitted to the MICU for acute hypoxemi c respiratory failure 2/2 metapneumovirus pneumonia --> ARDS. ARDS/ventilator management strategy Vt 5 mL/kg Plateau pressure 29 FiO2 40% PEEP 12 Repeat ABG 02/11 21:20 --> 7.43/45/54 --> P/F ratio 135 Impression: In light of refractory hypoxemia despite current respiratory care, we will tri al gas exchange augmentation via prone positioning. Paralytics considered though will defer this therapy for the time being. Plan (prone positioning protocol): - ensure adequate sedation, goal RASS -4/-5 with propofol and hydromorphone - current ventilator settings/lung physiology documented above - place a-line - ABG one-hour post prone positioning Re-assessment: ABG 7.44/45/71 --> P/F ratio 178; PEEP up-titrated from 12 --> 14; plateau pressure 29 Additional changes: Briefly this morning, cardiac oscillations --> ventilator auto-cycling; now resolved with change in flow-trigger sensitivity Josr Mcnair, [facility] fellow Ron Friedman MD - 02/11/2018 8:52 PM PDT MICU Attending Note I have rounded with the critical care team and personally reviewed Sarah Reeves's availab le data, including medical history, significant events, physical examination and test result s. I agree with the MICU team's assessment and documentation and have participated in the cr eation of today's plan of care, with additions or exceptions as noted. Ht 1.68 m (5' 6.14"), Wt 162 kg (357 lb 2.3 oz), BP 150/61, Pulse 77, Temperature 37.8 C (100 F), RR 32, SpO2 91%, BMI 57.4 kg/(m^2). Body mass index is 57.4 kg/m. Lab Results Component Value Date PH 7.45 (H) 02/11/2018 PCO2 41 02/11/2018 PO2 64 (L) 02/11/2018 HCO3 28 02/11/2018 [id number] 93.4 02/11/2018 FIO2 0.50 02/11/2018 [id number] 128 (L) 02/11/2018 Critical Diagnoses Hypoxic resp failure ARDS moderate Chronic pain metapneumovirus PNA Asthma OLIVIA Obesity pSVTs pEFHF Anemia NOS Assessment/Plan LTV ventilation, pplat ~28-29 Diuresis as tolerated [place] study = not paralyzed Vanc/zosyn and azithromycin Propofol/dilaudid for sedation/pain Serial ABGs- may consider prone positioning Latanya- sister at bedside Ron Meeks MD, MA Materials Development Engineer Division of Pulmonary & Critical Care Medicine Pager: [phone] Critical Care Time: I spent 15 minutes in the care and magagement of this patient who is cr itically ill (managing issues that acutely impair one or more vital organ systems such that there is a high probability of imminent or life threatening deterioration in the patient's c ondition). Jones Thakkar - 02/11/2018 7:10 PM PDTResearch Participation Note: Sarah Reeves is a 62 y.o. female who is being treated for Acute Respiratory Distress Synd vannesa (ARDS). She was found to be eligible for participation in the [employer] "BREANNE" Stud y (IRB # [id number]). Informed consent was obtained from the patient's LAR. The patient was subse quently enrolled in the study on 02/11/2018 at 1147 and randomized to the Control arm. The BREANNE study is an [facility]-sponsored multi-center, prospective, 2-arm, unblinded, randomized clinical trial of two management strategies [facility]. The study is assessing the efficacy and safety of early neuromuscular b lockade in reducing mortality and morbidity in patients with moderate-severe ARDS in compari son to a control group with no routine early neuromuscular blockade. Please see clinicaltria ls.gov # [id number] for more information. Informed Consent Informed consent was obtained prior to study enrollment. Due to the patient's critical illn ess and limited decision-making capacity, consent was obtained from the patient's legally au thorized provider service representative (LAR). Study: BREANNE Date and time: 02/11/2018 at 1124 Research personnel obtaining consent: Janet Garcia, Research Coordinator Consent obtained from: Latanya Rea, patient's sibling and LAR Witness: Sergio Sanchez Principle Van Loader Method: phone Discussion: The nature of the study, participation details, risks, and benefits were disc ussed. The LAR was given the opportunity to consider the study and ask questions, and these were addressed to the LAR's satisfaction. During the discussion the LAR was provided a physi vicky copy of the consent in-person, and this document was fully reviewed prior to rendering a decision. The LAR provided written authorization to proceed with study enrollment. Authorization: The LAR agreed to the following aspects of the study: Participation in [place] NMB study: YES Participation in the ventilator protocol portion of the study: YES Collection of blood sample for future genetic research in ARDS: YES Collection of blood for future genetic research in other medical conditions: YES LTO portion of the study (3, 6, and 12 month follow-up): YES Enrollment & Randomization Sarah Reeves was enrolled in the study on 02/11/2018 at 1147. She was randomized to the con trol arm. Protocol Marcano Events The study protocol requires the following marcano events: Fluid protocol Start time: Immediately following enrollment End time: Following weaning or on Day 7 (02/18/2018), whichever occurs first Ventilator protocol Start time: Attempt titration within 2 hours following enrollment End time: High PEEP protocol ends on Day 5 (02/16/2018). Weaning protocol ends on Day 28 ( 03/11/2018) Research Personnel For questions or concerns regarding this research, please contact the following individuals : Senior Loss Control Specialist Sergio Sanchez MD Office: [phone] Pager: [phone] Email: [email or web address] [employer] Mixer Helper PRISM Research Coordinator (smartweb -> Last Name -> PRISM) Pager: [phone] On-Call Coordinator Pager: [phone] (In SmartWeb type PRISM in last name) Associated attestation - Sergio Sanchez MD - 02/13/2018 8:05 AM PDTFormatting of this note m ight be different from the original. PULMONARY ATTENDING ATTESTATION I am familiar with Sarah Reeves's medical history and the current active problems. I have reviewed the written documentation above and I agree with the findings, assessment, advice, orders and plan as they are documented. SERGIO SANCHEZ MD (YOLIBS) Assoc. Prof. Pulm Crit Care | [facility] & [address] | Mailcode: [id number] | [facility] [id number] | Trent Adkins - 02/11/2018 9:09 AM PDTTransthoracic echocardiogram completed. Final report to follow. Van Saucedo MD - 12/2017 6:00 AM PDT [facility] MEDICAL ICU - PROGRESS NOTE Hospital Day: 0 | ICU Day: 1 ID/CC: Sarah Reeves is a 62 y.o. Woman w/ admitted to the MICU for acute hypoxemic hyperc arbic respiratory failure that required intubation. Consultants: None. 24 Hour Events: -Transferred from [facility] ([place], [place]) overnight. -Initially presented to ED 02/07/2018 (no labs), given tamiflu and sent home. -Returned to hospital 02/08, dx with pneumonia and admitted. -Continued Tamiflu and started on CTX + azithro for suspected CAP. -Res status continued to worsen, requiring BiPAP -> intubation. -Worsening bilateral consolidations on CXR. -Upon arrival, VSS, afebrile, normotensive, on V-AC with PEEP 10, FiO2 40%. -Upon arrival, started on IV vanc, zosyn, and azithro. Subjective: -Pt sedated and intubated, so unable to obtain hx. Vital Signs: Cuff BP 160/66 (02/11/18 1000) | BP Min: 111/84 Max: 170/77 Cuff MAP 92 mmHg (02/11/18 1000) | BP Mean Min: 75 mmHg Max: 105 mmHg Art Line BP | No Data Recorded Art Line MAP | No Data Recorded HR 84 (02/11/18 1000) | Pulse Min: 0 Max: 99 | Cardiac Rhythm: Normal Sinus Rhythm;PVCs ( 02/11/18 08) Temp 37.7 C (99.9 F) (02/11/18 0400) | Temp Min: 37.7 C (99.9 F) Max: 37.7 C (9 9.9 F) RR 23 (02/11/18 1000) | Resp Min: 0 Max: 27 SpO2 91 % (02/11/18 1000) | SpO2 Min: 49 % Max: 99 % O2 Device Endotracheal tube (02/11/18 08) | Volume AC (02/11/18 08) Ventilator Settings Vt: 8 mL/Kg (476.8 mL) RR: 22 bpm [place] BW: 59.6 kg FiO2 45 fraction of O2 PEEP Set 10 cm H2O Observed Ventilation Vex: Mandatory 490 ml | Spontaneous 470 ml RR: 22 bpm Minute Ventilation: 8.1 L/MIN SpO2 91 % Ventilator Diagnostics (Past 24 hrs) Pplat 30 cm H2O (02/11/18 08) | Driving Pressure 23 cm H2O (02/11/18 0113) Total PEEP (Patient effort detected) (02/11/18 0253) | AutoPEEP SBT Assessed | SBT Outcome Cam/RASS Flowsheet Row Most Recent Value CAM (Confusion Assessment Method) Unable to complete assessment (see comments) RASS Scale -3 CPOT 6 (02/11/18 1011) Intake/Output Summary (Last 24 hours) at 02/11/18 0700 Last data filed at 02/11/18 0600 Gross per 24 hour Intake 651.52 ml Output 2465 ml Net -1813.48 ml Intake/Output Summary (since admission) at 02/11/18 0012 Last data filed at 02/11/18 0600 Gross for the last 0 days Intake 651.52 ml Output 2465 ml Net since Admission -1813.48 ml BMI: 57.5 Weights 162 kg (357 lb 2.3 oz) (02/11/18 0054) Admit Wt: 162 kg (357 lb 2.3 oz) Physical Exam: GENERAL: Obese female, sedated and intubated. CARDIAC: Regular rate and rhythm. No rubs, murmurs, or gallops. RESPIRATORY: Coarse mech vent breath sounds bilaterally. ABDOMEN: soft, abd. Hypoactive bowel sounds. EXTREMITIES: WWP. 2+ pitting edema to BLE. NEUROLOGICAL: Sedated and intubated. SKIN: Skin normal color, texture and turgor with no lesions or eruptions. LINES/TUBES: L foot PIV, RUE PIV; ETT; Mendiola; Feeding tube. Laboratories: Recent Labs 02/11/18 0040 PH 7.39 PCO2 41 PO2 63* HCO3 24 Recent Labs 02/11/18 003 WBC 10.69 HB 11.7* HCT 37.0 MCV 89.2 PLT 168 NEUTROPHILCO 9.65* LYMPHSABS 0.75* MONOCYTECO 0.21 EOSCO 0.00 BASOPHILCO 0.03 IMGRANABS 0.05 No results for input(s): INRPT, APTT, FIBRINOGEN in the last 720 hours. Recent Labs 02/11/18 0036 NA 135* K 4.5 CL 103 BICARB 23 BUN 29* CR 1.23* CA 7.6* MG 2.1 PO4 1.8* ANIONGAP 9 Recent Labs 02/11/18 0022 02/11/18 0036 GLU 147* 158* Recent Labs 02/11/18 0036 AST 40 ALT 22 TBILI 0.5 AP 59 ALB 2.6* TP 6.4 Recent Labs 02/11/18 0036 02/11/18 0040 LACTICACID -- 1.1 TROPONIN <0.02 -- NTPROBNP 2,080* -- Lab Orders - In Process (Through next 24h) Start Ordered 02/11/18 0030 STREP PNEUMONIAE AG, URINE COLLECT NOW, X1 02/11/18 0019 02/11/18 0030 LEGIONELLA AG, URINE COLLECT NOW, X1 02/11/18 0019 02/11/18 0015 CULTURE, BLOOD BACTI & YEAST ONCE 02/11/18 0019 02/11/18 0015 CULTURE, BLOOD BACTI & YEAST ONCE 02/11/18 0019 Microbiology: RVP (02/11/2018): positive metanpneumovirus. BCx (02/11/2018): pending x2. Urine S. Pneumonia Ag (02/11/2018): pending. Urine Legionella Ag (02/11/2018): pending. Sputum Cx from ETT (02/11/2018): pending. MRSA Nares (02/11/2018): pending. Imaging: CXR 02/10/2018: IMPRESSION: 1. Redemonstration of diffuse bilateral extensive patchy airspace opacities. 2. Enteric tube tip terminates approximately 5 cm above the jim. EKG/Echocardiogram: EKG 02/10/2018): Normal sinus rhythm, left axis, rate 64, Qtc 474. Current Facility-Administered Medications Medication Dose Route Frequency Last Rate propofol (DIPRIVAN) injection 0.5-50 mcg/kg/min (Dosing Weight) intravenous CONTINUOUS 20 mcg/kg/min (02/11/18 0800) Current Facility-Administered Medications Medication Dose Route Frequency Last Rate atorvastatin (LIPITOR) tablet 10 mg 10 mg feeding tube DAILY [START ON 02/12/2018] azithromycin (ZITHROMAX) tablet 500 mg 500 mg feeding tube Q24H budesonide (PULMICORT) 0.5 mg/2 mL nebulizer suspension 0.5 mg 0.5 mg inhalation BID chlorhexidine (PERIDEX) mouthwash 15 mL 15 mL oral Q6H docusate sodium liquid 100 mg 100 mg feeding tube BID enoxaparin (LOVENOX) injection 40 mg 40 mg subcutaneous Q12H (Scheduled) famotidine (PEPCID) tablet 20 mg 20 mg feeding tube BID insulin lispro (HUMALOG) injection subcutaneous QID ipratropium-albuterol (DUO-NEB) nebulizer solution 3 mL 3 mL inhalation Q4H nystatin (MYCOSTATIN) powder topical BID piperacillin-tazobactam (ZOSYN) IV 4.5 g 4.5 g intravenous Q8H Stopped (02/11/18 1052) polyethylene glycol (MIRALAX) packet 17 g 17 g feeding tube DAILY potassium & sodium phosphates (K PHOS NEUTRAL) tablet 250 mg 250 mg oral BID senna (SENOKOT) liquid 17.6 mg 10 mL feeding tube BID sertraline (ZOLOFT) tablet 100 mg 100 mg feeding tube DAILY vancomycin (VANCOCIN) IV 2,000 mg 2,000 mg intravenous Q12H Current Facility-Administered Medications Medication Dose Route Frequency Last Rate acetaminophen (TYLENOL) oral suspension 1,000 mg 1,000 mg feeding tube TID PRN bisacodyl (DULCOLAX) suppository 10 mg 10 mg rectal DAILY PRN dextrose 50 % in water IV 25 mL 25 mL intravenous PRN glucagon (GLUCAGEN) injection 1 mg 1 mg intramuscular PRN glucose chewable tablet 16 g 16 g oral PRN HYDROmorphone (DILAUDID) injection 0.5-1.5 mg 0.5-1.5 mg intravenous Q2H PRN menthol-zinc oxide (CALAZIME) topical paste 0.2%-16.5% topical QID PRN oxyCODONE (immediate release) (ROXICODONE) tablet 5 mg 5 mg feeding tube Q4H PRN polyethylene glycol (MIRALAX) packet 34 g 34 g feeding tube TID PRN propofol (DIPRIVAN) bolus from continuous infusion 10-20 mg 10-20 mg intravenous Q15MI N PRN Assessment & Plan: Sarah Reeves is a 62 y.o. woman admitted to the MICU for acute hypoxemic respiratory fail ure likely 2/2 pneumonia. Neurological #Sedated: Current sedation package includes propofol with hydromorphone prn for pain relief . -Daily sedation vacation #Chronic pain: -Oxycodone 5 mg Q4H prn 1st line pain. -Hydromorphone 0.5-1.5 mg IV Q2H prn 2nd line pain. -CPOT goal of (0 to +2). -Home gabapentin 300 mg TID. #Depression: -Continue sertraline 100 mg QDAY. Cardiovascular #Paroxysmal supraventricular tachycardia: Patient had multiple asymptomatic runs of SVT at the outside hospital which subsided after starting metoprolol 25 mg/bid. -Hold Metoprolol tart 25 mg BID. -CTM. #HTN: Normotensive on arrival, will hold any antihypertensives at this time in the setting of acu te infection. Home lisinopril 20 mg QDAY was held upon arrival to [facility] 02/10. -Currently hypertensive with SBP 160s-170s. -IV lasix 40 mg x1 today. -Goal net neg 1.5-2.0 L. -Monitor. May need to re-start low-dose home antihypertensives once more information objesse ibeth. #HLD: -Continue atorvastatin 10 mg QDAY. #Presumed HFpEF: Last TTE 10/2017 showed LVEF 65-70% with grade 1 diastolic dysfunction with normal RV size and function. BNP 2,080 on arrival. Likely volume overload on exam. -IV lasix 40 mg x1. -Goal net neg 1.5-2.0 L. -Strict I/Os. Daily weights. -Monitor. Respiratory #Acute hypoxic hypercapnic respiratory failure requiring intubation #ARDS, Moderate #Metapneumovirus #Bilateral lower lobe pneumonia #Hypervolemia Hypoxemic respiratory failure likely 2/2 metapneumovirus +/- superimposed bacterial pneumon ia with component of hypervolemia in setting of presumed HFpEF (NTproBNP on arrival ). Course complicated by moderate ARDS based off ABG 02/11 (PaO2/FiO2 ~157), bilateral opacitie s on CXR, etc. Empirically s/p oseltamivir x5d course at OSH (unclear influenza PCR positivi ty at OSH). Pt was initially treated with IV CTX + azithro x3d (02/08-02/10) and vanco added 02/10 at OSH [facility]. Pt already with poor baseline pulm function in setting of OLIVIA. -Decrease tidal volume 8 mL/kg -> 6 mL/kg. -Goal Pplateau <30. -Repeat ABG 30 min after vent changes. -IV lasix 40 mg x1. Goal net neg 1.5-2.0 L. -F/U CT chest WO contrast 02/11. -Continue IV vancomycin, zosyn, and PO azithromycin (02/10-present). -F/u MRSA nares swab. If neg, can d/c vanco. -F/u Urine S. pneumo and Legionella ag to guide abx therapy. -F/u sputum cx (02/11). #OLIVIA -On V-AC as above. #Moderate persistent bronchial asthma -Home budesonide BID. -Duonebs Q4H rajeev. #Presumed Influenza at OSH: No clear documentation of positivity, s/p 5 days of Tamiflu [facility]. On arrival to [facility], influe nza A/B negative on 02/11/2018. GI / Nutrition #OG tube -Consult nutrition 02/11. / Renal #CKD stage III (Baseline creatinine 1.3mg/dl per chart review) -Creatinine 1.23mg/dl on arrival. -Continue to monitor daily Infectious Disease # See respiratory section. Hematology / Oncology No acute active issues. Endocrine #DMII (Last A1c was 10.6mg/dl per outside hospital records) -Moderate SSI. -Hypoglycemic precautions started. Consultants: None. Feeding: NPO/Bowel Rest Analgesia: Oxycodone, Hydromorphone Sedation: Propofol (RASS Goal -3) Thromboprophylaxis: LMWH SC Head of Bed: > 30 Ulcer Prophylaxis: H2 shane Glycemic control: SC insulin Mobility Goal: Bed rest Lines/Tubes/Drains/Airways: L foot PIV, RUE PIV, Mendiola, ET Tube, OG tube. Try to obtain ano ther PIV. Code Status Code Status Full Code Surrogate Decision Maker Documentation: Sister coming to bedside today. Will contact sister and to determine SDM status. This patient was staffed with Dr. Leif Matamoros, attending physician. VAN PALMA MD 02/11/2018, 6:01 AM Template created by [email or web address] documented in this encounter Plan of Treatment + +------+--------+ + + | Name | Type | Priori | Associated Diagnoses | Order Schedule | | | | ty | | | + +------+--------+ + + | NON REHAB LIAISON CYTOLOGY | Lab | Routin | | LABS TO BE COLLECTED | | | | e | | IN RADIOLOGY for 1 | | | | | | Occurrences starting | | | | | | 02/26/2018 until | | | | | | 02/26/2018 | + +------+--------+ + + | CELL COUNT DIFF, CSF | Lab | Routin | | LABS TO BE COLLECTED | | | | e | | IN RADIOLOGY for 1 | | | | | | Occurrences starting | | | | | | 02/26/2018 until | | | | | | 02/26/2018 | + +------+--------+ + + | CULTURE, CSF BACTI | Lab | Routin | | LABS TO BE COLLECTED | | | | e | | IN RADIOLOGY for 1 | | | | | | Occurrences starting | | | | | | 02/26/2018 until | | | | | | 02/26/2018 | + +------+--------+ + + | GRAM SMEAR ONLY, | Lab | Routin | | LABS TO BE COLLECTED | | STAT | | e | | IN RADIOLOGY for 1 | | | | | | Occurrences starting | | | | | | 02/26/2018 | + +------+--------+ + + | LDH, CSF | Lab | Routin | | LABS TO BE COLLECTED | | | | e | | IN RADIOLOGY for 1 | | | | | | Occurrences starting | | | | | | 02/26/2018 until | | | | | | 02/26/2018 | + +------+--------+ + + | GLUCOSE, CSF | Lab | Routin | | LABS TO BE COLLECTED | | | | e | | IN RADIOLOGY for 1 | | | | | | Occurrences starting | | | | | | 02/26/2018 until | | | | | | 02/26/2018 | + +------+--------+ + + | PROTEIN, CSF | Lab | Routin | | LABS TO BE COLLECTED | | | | e | | IN RADIOLOGY for 1 | | | | | | Occurrences starting | | | | | | 02/26/2018 until | | | | | | 02/26/2018 | + +------+--------+ + + | CELL COUNT DIFF, CSF | Lab | Routin | | LABS TO BE COLLECTED | | | | e | | IN RADIOLOGY for 1 | | | | | | Occurrences starting | | | | | | 02/27/2018 until | | | | | | 02/27/2018 | + +------+--------+ + + | CULTURE, CSF BACTI | Lab | Routin | | LABS TO BE COLLECTED | | | | e | | IN RADIOLOGY for 1 | | | | | | Occurrences starting | | | | | | 02/27/2018 until | | | | | | 02/27/2018 | + +------+--------+ + + | GLUCOSE, CSF | Lab | Routin | | LABS TO BE COLLECTED | | | | e | | IN RADIOLOGY for 1 | | | | | | Occurrences starting | | | | | | 02/27/2018 until | | | | | | 02/27/2018 | + +------+--------+ + + | LDH, CSF | Lab | Routin | | LABS TO BE COLLECTED | | | | e | | IN RADIOLOGY for 1 | | | | | | Occurrences starting | | | | | | 02/27/2018 until | | | | | | 02/27/2018 | + +------+--------+ + + | NON REHAB LIAISON CYTOLOGY | Lab | Routin | | LABS TO BE COLLECTED | | | | e | | IN RADIOLOGY for 1 | | | | | | Occurrences starting | | | | | | 02/27/2018 until | | | | | | 02/27/2018 | + +------+--------+ + + | PROTEIN, CSF | Lab | Routin | | LABS TO BE COLLECTED | | | | e | | IN RADIOLOGY for 1 | | | | | | Occurrences starting | | | | | | 02/27/2018 until | | | | | | 02/27/2018 | + +------+--------+ + + documented as of this encounter Procedures + +--------+ + + + | Procedure Name | Priori | Date/Time | Associated Diagnosis | Comments | | | ty | | | | + +--------+ + + + | IP IMMUNIZE - | Routin | 03/15/2018 | | Results for this | | TUBERCULIN PPD 5 | e | 9:30 AM | | procedure are in the | | UNIT/0.1 ML-BACK | | PDT | | results section. | | OFFICE | | | | | + +--------+ + + + | CAPILLARY BLOOD | Routin | 03/15/2018 | Pneumonia due to | Results for this | | GLUCOSE (NO CHG), | e | 8:53 AM | infectious organism, | procedure are in the | | POC | | PDT | unspecified | results section. | | | | | laterality, | | | | | | unspecified part of | | | | | | lung | | + +--------+ + + + | CBC AND AUTO DIFF | Routin | 03/15/2018 | | Results for this | | | e | 6:34 AM | | procedure are in the | | | | PDT | | results section. | + +--------+ + + + | CBC, WITH | Routin | 03/15/2018 | | Results for this | | DIFFERENTIAL | e | 6:34 AM | | procedure are in the | | | | PDT | | results section. | + +--------+ + + + | RENAL FUNCTION SET | Routin | 03/15/2018 | | Results for this | | (NA,K,CL,CO2,BUN,CRE | e | 6:34 AM | | procedure are in the | | AT,GLUC,CA,PHOS,ALB | | PDT | | results section. | | ) | | | | | + +--------+ + + + | CAPILLARY BLOOD | Routin | 03/14/2018 | Pneumonia due to | Results for this | | GLUCOSE (NO CHG), | e | 8:13 PM | infectious organism, | procedure are in the | | POC | | PDT | unspecified | results section. | | | | | laterality, | | | | | | unspecified part of | | | | | | lung | | + +--------+ + + + | CAPILLARY BLOOD | Routin | 03/14/2018 | Pneumonia due to | Results for this | | GLUCOSE (NO CHG), | e | 5:50 PM | infectious organism, | procedure are in the | | POC | | PDT | unspecified | results section. | | | | | laterality, | | | | | | unspecified part of | | | | | | lung | | + +--------+ + + + | CAPILLARY BLOOD | Routin | 03/14/2018 | Pneumonia due to | Results for this | | GLUCOSE (NO CHG), | e | 12:37 PM | infectious organism, | procedure are in the | | POC | | PDT | unspecified | results section. | | | | | laterality, | | | | | | unspecified part of | | | | | | lung | | + +--------+ + + + | CAPILLARY BLOOD | Routin | 03/14/2018 | Pneumonia due to | Results for this | | GLUCOSE (NO CHG), | e | 8:57 AM | infectious organism, | procedure are in the | | POC | | PDT | unspecified | results section. | | | | | laterality, | | | | | | unspecified part of | | | | | | lung | | + +--------+ + + + | RENAL FUNCTION SET | Routin | 03/14/2018 | | Results for this | | (NA,K,CL,CO2,BUN,CRE | e | 5:32 AM | | procedure are in the | | AT,GLUC,CA,PHOS,ALB | | PDT | | results section. | | ) | | | | | + +--------+ + + + | CAPILLARY BLOOD | Routin | 03/13/2018 | Pneumonia due to | Results for this | | GLUCOSE (NO CHG), | e | 11:53 PM | infectious organism, | procedure are in the | | POC | | PDT | unspecified | results section. | | | | | laterality, | | | | | | unspecified part of | | | | | | lung | | + +--------+ + + + | CAPILLARY BLOOD | Routin | 03/13/2018 | Pneumonia due to | Results for this | | GLUCOSE (NO CHG), | e | 5:58 PM | infectious organism, | procedure are in the | | POC | | PDT | unspecified | results section. | | | | | laterality, | | | | | | unspecified part of | | | | | | lung | | + +--------+ + + + | CAPILLARY BLOOD | Routin | 03/13/2018 | Pneumonia due to | Results for this | | GLUCOSE (NO CHG), | e | 1:41 PM | infectious organism, | procedure are in the | | POC | | PDT | unspecified | results section. | | | | | laterality, | | | | | | unspecified part of | | | | | | lung | | + +--------+ + + + | CAPILLARY BLOOD | Routin | 03/13/2018 | Pneumonia due to | Results for this | | GLUCOSE (NO CHG), | e | 8:26 AM | infectious organism, | procedure are in the | | POC | | PDT | unspecified | results section. | | | | | laterality, | | | | | | unspecified part of | | | | | | lung | | + +--------+ + + + | RENAL FUNCTION SET | Routin | 03/13/2018 | | Results for this | | (NA,K,CL,CO2,BUN,CRE | e | 6:22 AM | | procedure are in the | | AT,GLUC,CA,PHOS,ALB | | PDT | | results section. | | ) | | | | | + +--------+ + + + | CAPILLARY BLOOD | Routin | 03/13/2018 | Pneumonia due to | Results for this | | GLUCOSE (NO CHG), | e | 4:13 AM | infectious organism, | procedure are in the | | POC | | PDT | unspecified | results section. | | | | | laterality, | | | | | | unspecified part of | | | | | | lung | | + +--------+ + + + | CAPILLARY BLOOD | Routin | 03/12/2018 | Pneumonia due to | Results for this | | GLUCOSE (NO CHG), | e | 10:14 PM | infectious organism, | procedure are in the | | POC | | PDT | unspecified | results section. | | | | | laterality, | | | | | | unspecified part of | | | | | | lung | | + +--------+ + + + | CAPILLARY BLOOD | Routin | 03/12/2018 | Pneumonia due to | Results for this | | GLUCOSE (NO CHG), | e | 8:27 PM | infectious organism, | procedure are in the | | POC | | PDT | unspecified | results section. | | | | | laterality, | | | | | | unspecified part of | | | | | | lung | | + +--------+ + + + | CAPILLARY BLOOD | Routin | 03/12/2018 | Pneumonia due to | Results for this | | GLUCOSE (NO CHG), | e | 6:39 PM | infectious organism, | procedure are in the | | POC | | PDT | unspecified | results section. | | | | | laterality, | | | | | | unspecified part of | | | | | | lung | | + +--------+ + + + | CAPILLARY BLOOD | Routin | 03/12/2018 | Pneumonia due to | Results for this | | GLUCOSE (NO CHG), | e | 4:42 PM | infectious organism, | procedure are in the | | POC | | PDT | unspecified | results section. | | | | | laterality, | | | | | | unspecified part of | | | | | | lung | | + +--------+ + + + | CAPILLARY BLOOD | Routin | 03/12/2018 | Pneumonia due to | Results for this | | GLUCOSE (NO CHG), | e | 1:51 PM | infectious organism, | procedure are in the | | POC | | PDT | unspecified | results section. | | | | | laterality, | | | | | | unspecified part of | | | | | | lung | | + +--------+ + + + | PET HEAD AND NECK | Routin | 03/12/2018 | | Results for this | | WITH SKULL BASE TO | e | 1:34 PM | | procedure are in the | | MID-THIGH | | PDT | | results section. | + +--------+ + + + | CAPILLARY BLOOD | Routin | 03/12/2018 | Pneumonia due to | Results for this | | GLUCOSE (NO CHG), | e | 11:04 AM | infectious organism, | procedure are in the | | POC | | PDT | unspecified | results section. | | | | | laterality, | | | | | | unspecified part of | | | | | | lung | | + +--------+ + + + | CBC AND AUTO DIFF | Routin | 03/12/2018 | | Results for this | | | e | 6:21 AM | | procedure are in the | | | | PDT | | results section. | + +--------+ + + + | CBC, WITH | Routin | 03/12/2018 | | Results for this | | DIFFERENTIAL | e | 6:21 AM | | procedure are in the | | | | PDT | | results section. | + +--------+ + + + | RENAL FUNCTION SET | Routin | 03/12/2018 | | Results for this | | (NA,K,CL,CO2,BUN,CRE | e | 6:21 AM | | procedure are in the | | AT,GLUC,CA,PHOS,ALB | | PDT | | results section. | | ) | | | | | + +--------+ + + + | CAPILLARY BLOOD | Routin | 03/12/2018 | Pneumonia due to | Results for this | | GLUCOSE (NO CHG), | e | 3:52 AM | infectious organism, | procedure are in the | | POC | | PDT | unspecified | results section. | | | | | laterality, | | | | | | unspecified part of | | | | | | lung | | + +--------+ + + + | CAPILLARY BLOOD | Routin | 03/11/2018 | Pneumonia due to | Results for this | | GLUCOSE (NO CHG), | e | 9:55 PM | infectious organism, | procedure are in the | | POC | | PDT | unspecified | results section. | | | | | laterality, | | | | | | unspecified part of | | | | | | lung | | + +--------+ + + + | CAPILLARY BLOOD | Routin | 03/11/2018 | Pneumonia due to | Results for this | | GLUCOSE (NO CHG), | e | 5:47 PM | infectious organism, | procedure are in the | | POC | | PDT | unspecified | results section. | | | | | laterality, | | | | | | unspecified part of | | | | | | lung | | + +--------+ + + + | CAPILLARY BLOOD | Routin | 03/11/2018 | Pneumonia due to | Results for this | | GLUCOSE (NO CHG), | e | 1:01 PM | infectious organism, | procedure are in the | | POC | | PDT | unspecified | results section. | | | | | laterality, | | | | | | unspecified part of | | | | | | lung | | + +--------+ + + + | CAPILLARY BLOOD | Routin | 03/11/2018 | Pneumonia due to | Results for this | | GLUCOSE (NO CHG), | e | 8:39 AM | infectious organism, | procedure are in the | | POC | | PDT | unspecified | results section. | | | | | laterality, | | | | | | unspecified part of | | | | | | lung | | + +--------+ + + + | CBC (HEMOGRAM) ONLY | Routin | 03/11/2018 | | Results for this | | | e | 7:03 AM | | procedure are in the | | | | PDT | | results section. | + +--------+ + + + | RENAL FUNCTION SET | Routin | 03/11/2018 | | Results for this | | (NA,K,CL,CO2,BUN,CRE | e | 7:03 AM | | procedure are in the | | AT,GLUC,CA,PHOS,ALB | | PDT | | results section. | | ) | | | | | + +--------+ + + + | CBC ONLY | Routin | 03/11/2018 | | Results for this | | | e | 7:03 AM | | procedure are in the | | | | PDT | | results section. | + +--------+ + + + | CAPILLARY BLOOD | Routin | 03/11/2018 | Pneumonia due to | Results for this | | GLUCOSE (NO CHG), | e | 3:45 AM | infectious organism, | procedure are in the | | POC | | PDT | unspecified | results section. | | | | | laterality, | | | | | | unspecified part of | | | | | | lung | | + +--------+ + + + | CAPILLARY BLOOD | Routin | 03/10/2018 | Pneumonia due to | Results for this | | GLUCOSE (NO CHG), | e | 9:05 PM | infectious organism, | procedure are in the | | POC | | PDT | unspecified | results section. | | | | | laterality, | | | | | | unspecified part of | | | | | | lung | | + +--------+ + + + | CAPILLARY BLOOD | Routin | 03/10/2018 | Pneumonia due to | Results for this | | GLUCOSE (NO CHG), | e | 5:57 PM | infectious organism, | procedure are in the | | POC | | PDT | unspecified | results section. | | | | | laterality, | | | | | | unspecified part of | | | | | | lung | | + +--------+ + + + | CAPILLARY BLOOD | Routin | 03/10/2018 | Pneumonia due to | Results for this | | GLUCOSE (NO CHG), | e | 12:20 PM | infectious organism, | procedure are in the | | POC | | PDT | unspecified | results section. | | | | | laterality, | | | | | | unspecified part of | | | | | | lung | | + +--------+ + + + | CAPILLARY BLOOD | Routin | 03/10/2018 | Pneumonia due to | Results for this | | GLUCOSE (NO CHG), | e | 8:23 AM | infectious organism, | procedure are in the | | POC | | PDT | unspecified | results section. | | | | | laterality, | | | | | | unspecified part of | | | | | | lung | | + +--------+ + + + | RENAL FUNCTION SET | Routin | 03/10/2018 | | Results for this | | (NA,K,CL,CO2,BUN,CRE | e | 5:17 AM | | procedure are in the | | AT,GLUC,CA,PHOS,ALB | | PDT | | results section. | | ) | | | | | + +--------+ + + + | CAPILLARY BLOOD | Routin | 03/09/2018 | Pneumonia due to | Results for this | | GLUCOSE (NO CHG), | e | 10:04 PM | infectious organism, | procedure are in the | | POC | | PDT | unspecified | results section. | | | | | laterality, | | | | | | unspecified part of | | | | | | lung | | + +--------+ + + + | CAPILLARY BLOOD | Routin | 03/09/2018 | Pneumonia due to | Results for this | | GLUCOSE (NO CHG), | e | 4:55 PM | infectious organism, | procedure are in the | | POC | | PDT | unspecified | results section. | | | | | laterality, | | | | | | unspecified part of | | | | | | lung | | + +--------+ + + + | CAPILLARY BLOOD | Routin | 03/09/2018 | Pneumonia due to | Results for this | | GLUCOSE (NO CHG), | e | 12:36 PM | infectious organism, | procedure are in the | | POC | | PDT | unspecified | results section. | | | | | laterality, | | | | | | unspecified part of | | | | | | lung | | + +--------+ + + + | CAPILLARY BLOOD | Routin | 03/09/2018 | Pneumonia due to | Results for this | | GLUCOSE (NO CHG), | e | 8:54 AM | infectious organism, | procedure are in the | | POC | | PDT | unspecified | results section. | | | | | laterality, | | | | | | unspecified part of | | | | | | lung | | + +--------+ + + + | RENAL FUNCTION SET | Routin | 03/09/2018 | | Results for this | | (NA,K,CL,CO2,BUN,CRE | e | 6:03 AM | | procedure are in the | | AT,GLUC,CA,PHOS,ALB | | PDT | | results section. | | ) | | | | | + +--------+ + + + | CAPILLARY BLOOD | Routin | 03/08/2018 | Pneumonia due to | Results for this | | GLUCOSE (NO CHG), | e | 9:34 PM | infectious organism, | procedure are in the | | POC | | PDT | unspecified | results section. | | | | | laterality, | | | | | | unspecified part of | | | | | | lung | | + +--------+ + + + | CAPILLARY BLOOD | Routin | 03/08/2018 | Pneumonia due to | Results for this | | GLUCOSE (NO CHG), | e | 5:42 PM | infectious organism, | procedure are in the | | POC | | PDT | unspecified | results section. | | | | | laterality, | | | | | | unspecified part of | | | | | | lung | | + +--------+ + + + | CAPILLARY BLOOD | Routin | 03/08/2018 | Pneumonia due to | Results for this | | GLUCOSE (NO CHG), | e | 4:39 PM | infectious organism, | procedure are in the | | POC | | PDT | unspecified | results section. | | | | | laterality, | | | | | | unspecified part of | | | | | | lung | | + +--------+ + + + | CAPILLARY BLOOD | Routin | 03/08/2018 | Pneumonia due to | Results for this | | GLUCOSE (NO CHG), | e | 3:00 PM | infectious organism, | procedure are in the | | POC | | PDT | unspecified | results section. | | | | | laterality, | | | | | | unspecified part of | | | | | | lung | | + +--------+ + + + | CAPILLARY BLOOD | Routin | 03/08/2018 | Pneumonia due to | Results for this | | GLUCOSE (NO CHG), | e | 2:03 PM | infectious organism, | procedure are in the | | POC | | PDT | unspecified | results section. | | | | | laterality, | | | | | | unspecified part of | | | | | | lung | | + +--------+ + + + | CAPILLARY BLOOD | Routin | 03/08/2018 | Pneumonia due to | Results for this | | GLUCOSE (NO CHG), | e | 12:58 PM | infectious organism, | procedure are in the | | POC | | PDT | unspecified | results section. | | | | | laterality, | | | | | | unspecified part of | | | | | | lung | | + +--------+ + + + | CAPILLARY BLOOD | Routin | 03/08/2018 | Pneumonia due to | Results for this | | GLUCOSE (NO CHG), | e | 11:48 AM | infectious organism, | procedure are in the | | POC | | PDT | unspecified | results section. | | | | | laterality, | | | | | | unspecified part of | | | | | | lung | | + +--------+ + + + | CAPILLARY BLOOD | Routin | 03/08/2018 | Pneumonia due to | Results for this | | GLUCOSE (NO CHG), | e | 10:34 AM | infectious organism, | procedure are in the | | POC | | PDT | unspecified | results section. | | | | | laterality, | | | | | | unspecified part of | | | | | | lung | | + +--------+ + + + | CAPILLARY BLOOD | Routin | 03/08/2018 | Pneumonia due to | Results for this | | GLUCOSE (NO CHG), | e | 9:17 AM | infectious organism, | procedure are in the | | POC | | PDT | unspecified | results section. | | | | | laterality, | | | | | | unspecified part of | | | | | | lung | | + +--------+ + + + | HEPATITIS B SURFACE | Routin | 03/08/2018 | | Results for this | | AG W/REFLEX IF | e | 8:30 AM | | procedure are in the | | INDICATED | | PDT | | results section. | + +--------+ + + + | CBC (HEMOGRAM) ONLY | Routin | 03/08/2018 | | Results for this | | | e | 8:30 AM | | procedure are in the | | | | PDT | | results section. | + +--------+ + + + | QUANTIFERON TB GOLD, | Routin | 03/08/2018 | | Results for this | | BLOOD | e | 8:30 AM | | procedure are in the | | | | PDT | | results section. | + +--------+ + + + | RENAL FUNCTION SET | Routin | 03/08/2018 | | Results for this | | (NA,K,CL,CO2,BUN,CRE | e | 8:30 AM | | procedure are in the | | AT,GLUC,CA,PHOS,ALB | | PDT | | results section. | | ) | | | | | + +--------+ + + + | CBC ONLY | Routin | 03/08/2018 | | Results for this | | | e | 8:30 AM | | procedure are in the | | | | PDT | | results section. | + +--------+ + + + | HEPATITIS B SURFACE | Routin | 03/08/2018 | | Results for this | | AB QUAL, SERUM | e | 8:30 AM | | procedure are in the | | | | PDT | | results section. | + +--------+ + + + | HEPATITIS B CORE AB, | Routin | 03/08/2018 | | Results for this | | SERUM | e | 8:30 AM | | procedure are in the | | | | PDT | | results section. | + +--------+ + + + | CAPILLARY BLOOD | Routin | 03/08/2018 | Pneumonia due to | Results for this | | GLUCOSE (NO CHG), | e | 8:23 AM | infectious organism, | procedure are in the | | POC | | PDT | unspecified | results section. | | | | | laterality, | | | | | | unspecified part of | | | | | | lung | | + +--------+ + + + | CAPILLARY BLOOD | Routin | 03/08/2018 | Pneumonia due to | Results for this | | GLUCOSE (NO CHG), | e | 7:18 AM | infectious organism, | procedure are in the | | POC | | PDT | unspecified | results section. | | | | | laterality, | | | | | | unspecified part of | | | | | | lung | | + +--------+ + + + | CAPILLARY BLOOD | Routin | 03/08/2018 | Pneumonia due to | Results for this | | GLUCOSE (NO CHG), | e | 6:11 AM | infectious organism, | procedure are in the | | POC | | PDT | unspecified | results section. | | | | | laterality, | | | | | | unspecified part of | | | | | | lung | | + +--------+ + + + | CAPILLARY BLOOD | Routin | 03/08/2018 | Pneumonia due to | Results for this | | GLUCOSE (NO CHG), | e | 5:36 AM | infectious organism, | procedure are in the | | POC | | PDT | unspecified | results section. | | | | | laterality, | | | | | | unspecified part of | | | | | | lung | | + +--------+ + + + | CAPILLARY BLOOD | Routin | 03/08/2018 | Pneumonia due to | Results for this | | GLUCOSE (NO CHG), | e | 3:35 AM | infectious organism, | procedure are in the | | POC | | PDT | unspecified | results section. | | | | | laterality, | | | | | | unspecified part of | | | | | | lung | | + +--------+ + + + | CAPILLARY BLOOD | Routin | 03/08/2018 | Pneumonia due to | Results for this | | GLUCOSE (NO CHG), | e | 1:24 AM | infectious organism, | procedure are in the | | POC | | PDT | unspecified | results section. | | | | | laterality, | | | | | | unspecified part of | | | | | | lung | | + +--------+ + + + | CAPILLARY BLOOD | Routin | 03/07/2018 | Pneumonia due to | Results for this | | GLUCOSE (NO CHG), | e | 11:28 PM | infectious organism, | procedure are in the | | POC | | PDT | unspecified | results section. | | | | | laterality, | | | | | | unspecified part of | | | | | | lung | | + +--------+ + + + | CAPILLARY BLOOD | Routin | 03/07/2018 | Pneumonia due to | Results for this | | GLUCOSE (NO CHG), | e | 10:30 PM | infectious organism, | procedure are in the | | POC | | PDT | unspecified | results section. | | | | | laterality, | | | | | | unspecified part of | | | | | | lung | | + +--------+ + + + | CAPILLARY BLOOD | Routin | 03/07/2018 | Pneumonia due to | Results for this | | GLUCOSE (NO CHG), | e | 9:28 PM | infectious organism, | procedure are in the | | POC | | PDT | unspecified | results section. | | | | | laterality, | | | | | | unspecified part of | | | | | | lung | | + +--------+ + + + | CAPILLARY BLOOD | Routin | 03/07/2018 | Pneumonia due to | Results for this | | GLUCOSE (NO CHG), | e | 8:29 PM | infectious organism, | procedure are in the | | POC | | PDT | unspecified | results section. | | | | | laterality, | | | | | | unspecified part of | | | | | | lung | | + +--------+ + + + | CAPILLARY BLOOD | Routin | 03/07/2018 | Pneumonia due to | Results for this | | GLUCOSE (NO CHG), | e | 7:12 PM | infectious organism, | procedure are in the | | POC | | PDT | unspecified | results section. | | | | | laterality, | | | | | | unspecified part of | | | | | | lung | | + +--------+ + + + | CAPILLARY BLOOD | Routin | 03/07/2018 | Pneumonia due to | Results for this | | GLUCOSE (NO CHG), | e | 6:19 PM | infectious organism, | procedure are in the | | POC | | PDT | unspecified | results section. | | | | | laterality, | | | | | | unspecified part of | | | | | | lung | | + +--------+ + + + | CAPILLARY BLOOD | Routin | 03/07/2018 | Pneumonia due to | Results for this | | GLUCOSE (NO CHG), | e | 5:05 PM | infectious organism, | procedure are in the | | POC | | PDT | unspecified | results section. | | | | | laterality, | | | | | | unspecified part of | | | | | | lung | | + +--------+ + + + | CAPILLARY BLOOD | Routin | 03/07/2018 | Pneumonia due to | Results for this | | GLUCOSE (NO CHG), | e | 3:11 PM | infectious organism, | procedure are in the | | POC | | PDT | unspecified | results section. | | | | | laterality, | | | | | | unspecified part of | | | | | | lung | | + +--------+ + + + | CAPILLARY BLOOD | Routin | 03/07/2018 | Pneumonia due to | Results for this | | GLUCOSE (NO CHG), | e | 2:01 PM | infectious organism, | procedure are in the | | POC | | PDT | unspecified | results section. | | | | | laterality, | | | | | | unspecified part of | | | | | | lung | | + +--------+ + + + | CAPILLARY BLOOD | Routin | 03/07/2018 | Pneumonia due to | Results for this | | GLUCOSE (NO CHG), | e | 12:57 PM | infectious organism, | procedure are in the | | POC | | PDT | unspecified | results section. | | | | | laterality, | | | | | | unspecified part of | | | | | | lung | | + +--------+ + + + | CAPILLARY BLOOD | Routin | 03/07/2018 | Pneumonia due to | Results for this | | GLUCOSE (NO CHG), | e | 12:14 PM | infectious organism, | procedure are in the | | POC | | PDT | unspecified | results section. | | | | | laterality, | | | | | | unspecified part of | | | | | | lung | | + +--------+ + + + | VITAMIN E, SERUM | Routin | 03/07/2018 | | Results for this | | | e | 11:18 AM | | procedure are in the | | | | PDT | | results section. | + +--------+ + + + | HIV-1,2 AB/HIV-1 P24 | Routin | 03/07/2018 | | Results for this | | AG SCRN | e | 11:18 AM | | procedure are in the | | | | PDT | | results section. | + +--------+ + + + | FOLATE, SERUM | Routin | 03/07/2018 | Pneumonia due to | Results for this | | | e | 11:18 AM | infectious organism, | procedure are in the | | | | PDT | unspecified | results section. | | | | | laterality, | | | | | | unspecified part of | | | | | | lung | | + +--------+ + + + | VITAMIN B-12 | Routin | 03/07/2018 | | Results for this | | | e | 11:18 AM | | procedure are in the | | | | PDT | | results section. | + +--------+ + + + | CAPILLARY BLOOD | Routin | 03/07/2018 | Pneumonia due to | Results for this | | GLUCOSE (NO CHG), | e | 11:10 AM | infectious organism, | procedure are in the | | POC | | PDT | unspecified | results section. | | | | | laterality, | | | | | | unspecified part of | | | | | | lung | | + +--------+ + + + | CAPILLARY BLOOD | Routin | 03/07/2018 | Pneumonia due to | Results for this | | GLUCOSE (NO CHG), | e | 10:07 AM | infectious organism, | procedure are in the | | POC | | PDT | unspecified | results section. | | | | | laterality, | | | | | | unspecified part of | | | | | | lung | | + +--------+ + + + | CAPILLARY BLOOD | Routin | 03/07/2018 | Pneumonia due to | Results for this | | GLUCOSE (NO CHG), | e | 8:04 AM | infectious organism, | procedure are in the | | POC | | PDT | unspecified | results section. | | | | | laterality, | | | | | | unspecified part of | | | | | | lung | | + +--------+ + + + | CAPILLARY BLOOD | Routin | 03/07/2018 | Pneumonia due to | Results for this | | GLUCOSE (NO CHG), | e | 6:53 AM | infectious organism, | procedure are in the | | POC | | PDT | unspecified | results section. | | | | | laterality, | | | | | | unspecified part of | | | | | | lung | | + +--------+ + + + | CAPILLARY BLOOD | Routin | 03/07/2018 | Pneumonia due to | Results for this | | GLUCOSE (NO CHG), | e | 5:49 AM | infectious organism, | procedure are in the | | POC | | PDT | unspecified | results section. | | | | | laterality, | | | | | | unspecified part of | | | | | | lung | | + +--------+ + + + | RENAL FUNCTION SET | Routin | 03/07/2018 | | Results for this | | (NA,K,CL,CO2,BUN,CRE | e | 5:06 AM | | procedure are in the | | AT,GLUC,CA,PHOS,ALB | | PDT | | results section. | | ) | | | | | + +--------+ + + + | CAPILLARY BLOOD | Routin | 03/07/2018 | Pneumonia due to | Results for this | | GLUCOSE (NO CHG), | e | 4:39 AM | infectious organism, | procedure are in the | | POC | | PDT | unspecified | results section. | | | | | laterality, | | | | | | unspecified part of | | | | | | lung | | + +--------+ + + + | CAPILLARY BLOOD | Routin | 03/07/2018 | Pneumonia due to | Results for this | | GLUCOSE (NO CHG), | e | 3:30 AM | infectious organism, | procedure are in the | | POC | | PDT | unspecified | results section. | | | | | laterality, | | | | | | unspecified part of | | | | | | lung | | + +--------+ + + + | CAPILLARY BLOOD | Routin | 03/07/2018 | Pneumonia due to | Results for this | | GLUCOSE (NO CHG), | e | 2:24 AM | infectious organism, | procedure are in the | | POC | | PDT | unspecified | results section. | | | | | laterality, | | | | | | unspecified part of | | | | | | lung | | + +--------+ + + + | CAPILLARY BLOOD | Routin | 03/07/2018 | Pneumonia due to | Results for this | | GLUCOSE (NO CHG), | e | 1:37 AM | infectious organism, | procedure are in the | | POC | | PDT | unspecified | results section. | | | | | laterality, | | | | | | unspecified part of | | | | | | lung | | + +--------+ + + + | CAPILLARY BLOOD | Routin | 03/07/2018 | Pneumonia due to | Results for this | | GLUCOSE (NO CHG), | e | 1:07 AM | infectious organism, | procedure are in the | | POC | | PDT | unspecified | results section. | | | | | laterality, | | | | | | unspecified part of | | | | | | lung | | + +--------+ + + + | CAPILLARY BLOOD | Routin | 03/07/2018 | Pneumonia due to | Results for this | | GLUCOSE (NO CHG), | e | 12:01 AM | infectious organism, | procedure are in the | | POC | | PDT | unspecified | results section. | | | | | laterality, | | | | | | unspecified part of | | | | | | lung | | + +--------+ + + + | CAPILLARY BLOOD | Routin | 03/06/2018 | Pneumonia due to | Results for this | | GLUCOSE (NO CHG), | e | 11:17 PM | infectious organism, | procedure are in the | | POC | | PDT | unspecified | results section. | | | | | laterality, | | | | | | unspecified part of | | | | | | lung | | + +--------+ + + + | CAPILLARY BLOOD | Routin | 03/06/2018 | Pneumonia due to | Results for this | | GLUCOSE (NO CHG), | e | 10:44 PM | infectious organism, | procedure are in the | | POC | | PDT | unspecified | results section. | | | | | laterality, | | | | | | unspecified part of | | | | | | lung | | + +--------+ + + + | CAPILLARY BLOOD | Routin | 03/06/2018 | Pneumonia due to | Results for this | | GLUCOSE (NO CHG), | e | 10:01 PM | infectious organism, | procedure are in the | | POC | | PDT | unspecified | results section. | | | | | laterality, | | | | | | unspecified part of | | | | | | lung | | + +--------+ + + + | CAPILLARY BLOOD | Routin | 03/06/2018 | Pneumonia due to | Results for this | | GLUCOSE (NO CHG), | e | 9:26 PM | infectious organism, | procedure are in the | | POC | | PDT | unspecified | results section. | | | | | laterality, | | | | | | unspecified part of | | | | | | lung | | + +--------+ + + + | CAPILLARY BLOOD | Routin | 03/06/2018 | Pneumonia due to | Results for this | | GLUCOSE (NO CHG), | e | 8:45 PM | infectious organism, | procedure are in the | | POC | | PDT | unspecified | results section. | | | | | laterality, | | | | | | unspecified part of | | | | | | lung | | + +--------+ + + + | CAPILLARY BLOOD | Routin | 03/06/2018 | Pneumonia due to | Results for this | | GLUCOSE (NO CHG), | e | 8:11 PM | infectious organism, | procedure are in the | | POC | | PDT | unspecified | results section. | | | | | laterality, | | | | | | unspecified part of | | | | | | lung | | + +--------+ + + + | CAPILLARY BLOOD | Routin | 03/06/2018 | Pneumonia due to | Results for this | | GLUCOSE (NO CHG), | e | 7:16 PM | infectious organism, | procedure are in the | | POC | | PDT | unspecified | results section. | | | | | laterality, | | | | | | unspecified part of | | | | | | lung | | + +--------+ + + + | CAPILLARY BLOOD | Routin | 03/06/2018 | Pneumonia due to | Results for this | | GLUCOSE (NO CHG), | e | 6:41 PM | infectious organism, | procedure are in the | | POC | | PDT | unspecified | results section. | | | | | laterality, | | | | | | unspecified part of | | | | | | lung | | + +--------+ + + + | CAPILLARY BLOOD | Routin | 03/06/2018 | Pneumonia due to | Results for this | | GLUCOSE (NO CHG), | e | 5:43 PM | infectious organism, | procedure are in the | | POC | | PDT | unspecified | results section. | | | | | laterality, | | | | | | unspecified part of | | | | | | lung | | + +--------+ + + + | CAPILLARY BLOOD | Routin | 03/06/2018 | Pneumonia due to | Results for this | | GLUCOSE (NO CHG), | e | 5:10 PM | infectious organism, | procedure are in the | | POC | | PDT | unspecified | results section. | | | | | laterality, | | | | | | unspecified part of | | | | | | lung | | + +--------+ + + + | CAPILLARY BLOOD | Routin | 03/06/2018 | Pneumonia due to | Results for this | | GLUCOSE (NO CHG), | e | 4:39 PM | infectious organism, | procedure are in the | | POC | | PDT | unspecified | results section. | | | | | laterality, | | | | | | unspecified part of | | | | | | lung | | + +--------+ + + + | CAPILLARY BLOOD | Routin | 03/06/2018 | Pneumonia due to | Results for this | | GLUCOSE (NO CHG), | e | 4:09 PM | infectious organism, | procedure are in the | | POC | | PDT | unspecified | results section. | | | | | laterality, | | | | | | unspecified part of | | | | | | lung | | + +--------+ + + + | CAPILLARY BLOOD | Routin | 03/06/2018 | Pneumonia due to | Results for this | | GLUCOSE (NO CHG), | e | 3:30 PM | infectious organism, | procedure are in the | | POC | | PDT | unspecified | results section. | | | | | laterality, | | | | | | unspecified part of | | | | | | lung | | + +--------+ + + + | CAPILLARY BLOOD | Routin | 03/06/2018 | Pneumonia due to | Results for this | | GLUCOSE (NO CHG), | e | 3:02 PM | infectious organism, | procedure are in the | | POC | | PDT | unspecified | results section. | | | | | laterality, | | | | | | unspecified part of | | | | | | lung | | + +--------+ + + + | CAPILLARY BLOOD | Routin | 03/06/2018 | Pneumonia due to | Results for this | | GLUCOSE (NO CHG), | e | 2:09 PM | infectious organism, | procedure are in the | | POC | | PDT | unspecified | results section. | | | | | laterality, | | | | | | unspecified part of | | | | | | lung | | + +--------+ + + + | CAPILLARY BLOOD | Routin | 03/06/2018 | Pneumonia due to | Results for this | | GLUCOSE (NO CHG), | e | 1:30 PM | infectious organism, | procedure are in the | | POC | | PDT | unspecified | results section. | | | | | laterality, | | | | | | unspecified part of | | | | | | lung | | + +--------+ + + + | CAPILLARY BLOOD | Routin | 03/06/2018 | Pneumonia due to | Results for this | | GLUCOSE (NO CHG), | e | 12:40 PM | infectious organism, | procedure are in the | | POC | | PDT | unspecified | results section. | | | | | laterality, | | | | | | unspecified part of | | | | | | lung | | + +--------+ + + + | CAPILLARY BLOOD | Routin | 03/06/2018 | Pneumonia due to | Results for this | | GLUCOSE (NO CHG), | e | 10:11 AM | infectious organism, | procedure are in the | | POC | | PDT | unspecified | results section. | | | | | laterality, | | | | | | unspecified part of | | | | | | lung | | + +--------+ + + + | CAPILLARY BLOOD | Routin | 03/06/2018 | Pneumonia due to | Results for this | | GLUCOSE (NO CHG), | e | 8:37 AM | infectious organism, | procedure are in the | | POC | | PDT | unspecified | results section. | | | | | laterality, | | | | | | unspecified part of | | | | | | lung | | + +--------+ + + + | CAPILLARY BLOOD | Routin | 03/06/2018 | Pneumonia due to | Results for this | | GLUCOSE (NO CHG), | e | 6:48 AM | infectious organism, | procedure are in the | | POC | | PDT | unspecified | results section. | | | | | laterality, | | | | | | unspecified part of | | | | | | lung | | + +--------+ + + + | CAPILLARY BLOOD | Routin | 03/06/2018 | Pneumonia due to | Results for this | | GLUCOSE (NO CHG), | e | 5:48 AM | infectious organism, | procedure are in the | | POC | | PDT | unspecified | results section. | | | | | laterality, | | | | | | unspecified part of | | | | | | lung | | + +--------+ + + + | RENAL FUNCTION SET | Routin | 03/06/2018 | | Results for this | | (NA,K,CL,CO2,BUN,CRE | e | 5:26 AM | | procedure are in the | | AT,GLUC,CA,PHOS,ALB | | PDT | | results section. | | ) | | | | | + +--------+ + + + | IGA, SERUM | Routin | 03/06/2018 | | Results for this | | | e | 5:26 AM | | procedure are in the | | | | PDT | | results section. | + +--------+ + + + | CAPILLARY BLOOD | Routin | 03/06/2018 | Pneumonia due to | Results for this | | GLUCOSE (NO CHG), | e | 4:40 AM | infectious organism, | procedure are in the | | POC | | PDT | unspecified | results section. | | | | | laterality, | | | | | | unspecified part of | | | | | | lung | | + +--------+ + + + | CAPILLARY BLOOD | Routin | 03/06/2018 | Pneumonia due to | Results for this | | GLUCOSE (NO CHG), | e | 3:23 AM | infectious organism, | procedure are in the | | POC | | PDT | unspecified | results section. | | | | | laterality, | | | | | | unspecified part of | | | | | | lung | | + +--------+ + + + | CAPILLARY BLOOD | Routin | 03/06/2018 | Pneumonia due to | Results for this | | GLUCOSE (NO CHG), | e | 2:15 AM | infectious organism, | procedure are in the | | POC | | PDT | unspecified | results section. | | | | | laterality, | | | | | | unspecified part of | | | | | | lung | | + +--------+ + + + | CAPILLARY BLOOD | Routin | 03/06/2018 | Pneumonia due to | Results for this | | GLUCOSE (NO CHG), | e | 1:02 AM | infectious organism, | procedure are in the | | POC | | PDT | unspecified | results section. | | | | | laterality, | | | | | | unspecified part of | | | | | | lung | | + +--------+ + + + | CAPILLARY BLOOD | Routin | 03/05/2018 | Pneumonia due to | Results for this | | GLUCOSE (NO CHG), | e | 11:49 PM | infectious organism, | procedure are in the | | POC | | PDT | unspecified | results section. | | | | | laterality, | | | | | | unspecified part of | | | | | | lung | | + +--------+ + + + | CAPILLARY BLOOD | Routin | 03/05/2018 | Pneumonia due to | Results for this | | GLUCOSE (NO CHG), | e | 10:46 PM | infectious organism, | procedure are in the | | POC | | PDT | unspecified | results section. | | | | | laterality, | | | | | | unspecified part of | | | | | | lung | | + +--------+ + + + | CAPILLARY BLOOD | Routin | 03/05/2018 | Pneumonia due to | Results for this | | GLUCOSE (NO CHG), | e | 10:10 PM | infectious organism, | procedure are in the | | POC | | PDT | unspecified | results section. | | | | | laterality, | | | | | | unspecified part of | | | | | | lung | | + +--------+ + + + | CAPILLARY BLOOD | Routin | 03/05/2018 | Pneumonia due to | Results for this | | GLUCOSE (NO CHG), | e | 9:40 PM | infectious organism, | procedure are in the | | POC | | PDT | unspecified | results section. | | | | | laterality, | | | | | | unspecified part of | | | | | | lung | | + +--------+ + + + | CAPILLARY BLOOD | Routin | 03/05/2018 | Pneumonia due to | Results for this | | GLUCOSE (NO CHG), | e | 8:50 PM | infectious organism, | procedure are in the | | POC | | PDT | unspecified | results section. | | | | | laterality, | | | | | | unspecified part of | | | | | | lung | | + +--------+ + + + | CAPILLARY BLOOD | Routin | 03/05/2018 | Pneumonia due to | Results for this | | GLUCOSE (NO CHG), | e | 8:14 PM | infectious organism, | procedure are in the | | POC | | PDT | unspecified | results section. | | | | | laterality, | | | | | | unspecified part of | | | | | | lung | | + +--------+ + + + | CAPILLARY BLOOD | Routin | 03/05/2018 | Pneumonia due to | Results for this | | GLUCOSE (NO CHG), | e | 7:38 PM | infectious organism, | procedure are in the | | POC | | PDT | unspecified | results section. | | | | | laterality, | | | | | | unspecified part of | | | | | | lung | | + +--------+ + + + | CAPILLARY BLOOD | Routin | 03/05/2018 | Pneumonia due to | Results for this | | GLUCOSE (NO CHG), | e | 6:58 PM | infectious organism, | procedure are in the | | POC | | PDT | unspecified | results section. | | | | | laterality, | | | | | | unspecified part of | | | | | | lung | | + +--------+ + + + | CAPILLARY BLOOD | Routin | 03/05/2018 | Pneumonia due to | Results for this | | GLUCOSE (NO CHG), | e | 6:24 PM | infectious organism, | procedure are in the | | POC | | PDT | unspecified | results section. | | | | | laterality, | | | | | | unspecified part of | | | | | | lung | | + +--------+ + + + | CAPILLARY BLOOD | Routin | 03/05/2018 | Pneumonia due to | Results for this | | GLUCOSE (NO CHG), | e | 4:59 PM | infectious organism, | procedure are in the | | POC | | PDT | unspecified | results section. | | | | | laterality, | | | | | | unspecified part of | | | | | | lung | | + +--------+ + + + | CAPILLARY BLOOD | Routin | 03/05/2018 | Pneumonia due to | Results for this | | GLUCOSE (NO CHG), | e | 12:21 PM | infectious organism, | procedure are in the | | POC | | PDT | unspecified | results section. | | | | | laterality, | | | | | | unspecified part of | | | | | | lung | | + +--------+ + + + | BASIC METABOLIC SET | Routin | 03/05/2018 | | Results for this | | (NA, K, CL, TCO2, | e | 8:47 AM | | procedure are in the | | BUN, CR, GLU, CA) | | PDT | | results section. | + +--------+ + + + | CAPILLARY BLOOD | Routin | 03/05/2018 | Pneumonia due to | Results for this | | GLUCOSE (NO CHG), | e | 8:23 AM | infectious organism, | procedure are in the | | POC | | PDT | unspecified | results section. | | | | | laterality, | | | | | | unspecified part of | | | | | | lung | | + +--------+ + + + | CAPILLARY BLOOD | Routin | 03/05/2018 | Pneumonia due to | Results for this | | GLUCOSE (NO CHG), | e | 6:15 AM | infectious organism, | procedure are in the | | POC | | PDT | unspecified | results section. | | | | | laterality, | | | | | | unspecified part of | | | | | | lung | | + +--------+ + + + | RENAL FUNCTION SET | Routin | 03/05/2018 | | Results for this | | (NA,K,CL,CO2,BUN,CRE | e | 6:02 AM | | procedure are in the | | AT,GLUC,CA,PHOS,ALB | | PDT | | results section. | | ) | | | | | + +--------+ + + + | CAPILLARY BLOOD | Routin | 03/05/2018 | Pneumonia due to | Results for this | | GLUCOSE (NO CHG), | e | 12:33 AM | infectious organism, | procedure are in the | | POC | | PDT | unspecified | results section. | | | | | laterality, | | | | | | unspecified part of | | | | | | lung | | + +--------+ + + + | CT CHEST, ABDOMEN | Routin | 03/04/2018 | | Results for this | | AND PELVIS W IV | e | 8:23 PM | | procedure are in the | | CONTRAST | | PDT | | results section. | + +--------+ + + + | CT NECK SOFT TISSUE | Routin | 03/04/2018 | | Results for this | | W CONTRAST | e | 8:23 PM | | procedure are in the | | | | PDT | | results section. | + +--------+ + + + | CAPILLARY BLOOD | Routin | 03/04/2018 | Pneumonia due to | Results for this | | GLUCOSE (NO CHG), | e | 5:00 PM | infectious organism, | procedure are in the | | POC | | PDT | unspecified | results section. | | | | | laterality, | | | | | | unspecified part of | | | | | | lung | | + +--------+ + + + | EEG CONTINUOUS, | Routin | 03/04/2018 | | Results for this | | ADULT | e | 4:54 PM | | procedure are in the | | | | PDT | | results section. | + +--------+ + + + | CAPILLARY BLOOD | Routin | 03/04/2018 | Pneumonia due to | Results for this | | GLUCOSE (NO CHG), | e | 12:16 PM | infectious organism, | procedure are in the | | POC | | PDT | unspecified | results section. | | | | | laterality, | | | | | | unspecified part of | | | | | | lung | | + +--------+ + + + | NIK ACTH STM 60 | Routin | 03/04/2018 | | Results for this | | | e | 11:02 AM | | procedure are in the | | | | PDT | | results section. | + +--------+ + + + | NIK ACTH STM 30 | Routin | 03/04/2018 | | Results for this | | | e | 10:34 AM | | procedure are in the | | | | PDT | | results section. | + +--------+ + + + | NIK ACTH STM 0 | Routin | 03/04/2018 | | Results for this | | | e | 10:05 AM | | procedure are in the | | | | PDT | | results section. | + +--------+ + + + | ACTH STIMULATION | Routin | 03/04/2018 | | Results for this | | TEST (0,30,60), | e | 10:05 AM | | procedure are in the | | SERUM | | PDT | | results section. | + +--------+ + + + | ACTH, PLASMA | Routin | 03/04/2018 | | Results for this | | | e | 10:05 AM | | procedure are in the | | | | PDT | | results section. | + +--------+ + + + | RENAL FUNCTION SET | Routin | 03/04/2018 | | Results for this | | (NA,K,CL,CO2,BUN,CRE | e | 10:05 AM | | procedure are in the | | AT,GLUC,CA,PHOS,ALB | | PDT | | results section. | | ) | | | | | + +--------+ + + + | CAPILLARY BLOOD | Routin | 03/04/2018 | Pneumonia due to | Results for this | | GLUCOSE (NO CHG), | e | 8:36 AM | infectious organism, | procedure are in the | | POC | | PDT | unspecified | results section. | | | | | laterality, | | | | | | unspecified part of | | | | | | lung | | + +--------+ + + + | CAPILLARY BLOOD | Routin | 03/03/2018 | Pneumonia due to | Results for this | | GLUCOSE (NO CHG), | e | 11:56 PM | infectious organism, | procedure are in the | | POC | | PDT | unspecified | results section. | | | | | laterality, | | | | | | unspecified part of | | | | | | lung | | + +--------+ + + + | CAPILLARY BLOOD | Routin | 03/03/2018 | Pneumonia due to | Results for this | | GLUCOSE (NO CHG), | e | 5:04 PM | infectious organism, | procedure are in the | | POC | | PDT | unspecified | results section. | | | | | laterality, | | | | | | unspecified part of | | | | | | lung | | + +--------+ + + + | CAPILLARY BLOOD | Routin | 03/03/2018 | Pneumonia due to | Results for this | | GLUCOSE (NO CHG), | e | 1:49 PM | infectious organism, | procedure are in the | | POC | | PDT | unspecified | results section. | | | | | laterality, | | | | | | unspecified part of | | | | | | lung | | + +--------+ + + + | LAB OTHER | Routin | 03/03/2018 | | Results for this | | | e | 12:41 PM | | procedure are in the | | | | PDT | | results section. | + +--------+ + + + | CAPILLARY BLOOD | Routin | 03/03/2018 | Pneumonia due to | Results for this | | GLUCOSE (NO CHG), | e | 12:08 PM | infectious organism, | procedure are in the | | POC | | PDT | unspecified | results section. | | | | | laterality, | | | | | | unspecified part of | | | | | | lung | | + +--------+ + + + | X-RAY PORTABLE CHEST | Routin | 03/03/2018 | | Results for this | | 1 VIEW | e | 9:08 AM | | procedure are in the | | | | PDT | | results section. | + +--------+ + + + | RIKA SCREEN | Routin | 03/03/2018 | | Results for this | | | e | 7:20 AM | | procedure are in the | | | | PDT | | results section. | + +--------+ + + + | JONATHAN BY SANDHYA | Routin | 03/03/2018 | | Results for this | | W/REFLEX TO IFA | e | 7:20 AM | | procedure are in the | | PATTERN & AB ID WHEN | | PDT | | results section. | | INDICATED | | | | | + +--------+ + + + | CBC AND AUTO DIFF | Routin | 03/03/2018 | | Results for this | | | e | 7:20 AM | | procedure are in the | | | | PDT | | results section. | + +--------+ + + + | SSB AB | Routin | 03/03/2018 | | Results for this | | | e | 7:20 AM | | procedure are in the | | | | PDT | | results section. | + +--------+ + + + | SSA AB | Routin | 03/03/2018 | | Results for this | | | e | 7:20 AM | | procedure are in the | | | | PDT | | results section. | + +--------+ + + + | CBC, WITH | Routin | 03/03/2018 | | Results for this | | DIFFERENTIAL | e | 7:20 AM | | procedure are in the | | | | PDT | | results section. | + +--------+ + + + | RENAL FUNCTION SET | Routin | 03/03/2018 | | Results for this | | (NA,K,CL,CO2,BUN,CRE | e | 7:20 AM | | procedure are in the | | AT,GLUC,CA,PHOS,ALB | | PDT | | results section. | | ) | | | | | + +--------+ + + + | RHEUMATOID FACTOR, | Routin | 03/03/2018 | | Results for this | | SERUM | e | 7:20 AM | | procedure are in the | | | | PDT | | results section. | + +--------+ + + + | C-REACTIVE PROTEIN | Routin | 03/03/2018 | | Results for this | | | e | 7:20 AM | | procedure are in the | | | | PDT | | results section. | + +--------+ + + + | SEDIMENTATION RATE | Routin | 03/03/2018 | | Results for this | | | e | 7:20 AM | | procedure are in the | | | | PDT | | results section. | + +--------+ + + + | CAPILLARY BLOOD | Routin | 03/03/2018 | Pneumonia due to | Results for this | | GLUCOSE (NO CHG), | e | 6:24 AM | infectious organism, | procedure are in the | | POC | | PDT | unspecified | results section. | | | | | laterality, | | | | | | unspecified part of | | | | | | lung | | + +--------+ + + + | CAPILLARY BLOOD | Routin | 03/02/2018 | Pneumonia due to | Results for this | | GLUCOSE (NO CHG), | e | 11:22 PM | infectious organism, | procedure are in the | | POC | | PDT | unspecified | results section. | | | | | laterality, | | | | | | unspecified part of | | | | | | lung | | + +--------+ + + + | CAPILLARY BLOOD | Routin | 03/02/2018 | Pneumonia due to | Results for this | | GLUCOSE (NO CHG), | e | 6:22 PM | infectious organism, | procedure are in the | | POC | | PDT | unspecified | results section. | | | | | laterality, | | | | | | unspecified part of | | | | | | lung | | + +--------+ + + + | CAPILLARY BLOOD | Routin | 03/02/2018 | Pneumonia due to | Results for this | | GLUCOSE (NO CHG), | e | 2:41 PM | infectious organism, | procedure are in the | | POC | | PDT | unspecified | results section. | | | | | laterality, | | | | | | unspecified part of | | | | | | lung | | + +--------+ + + + | CAPILLARY BLOOD | Routin | 03/02/2018 | Pneumonia due to | Results for this | | GLUCOSE (NO CHG), | e | 12:20 PM | infectious organism, | procedure are in the | | POC | | PDT | unspecified | results section. | | | | | laterality, | | | | | | unspecified part of | | | | | | lung | | + +--------+ + + + | PROCEDURE NOTE | Routin | 03/02/2018 | | Results for this | | | e | 12:17 PM | | procedure are in the | | | | PDT | | results section. | + +--------+ + + + | CBC AND AUTO DIFF | Routin | 03/02/2018 | | Results for this | | | e | 8:27 AM | | procedure are in the | | | | PDT | | results section. | + +--------+ + + + | CBC, WITH | Routin | 03/02/2018 | | Results for this | | DIFFERENTIAL | e | 8:27 AM | | procedure are in the | | | | PDT | | results section. | + +--------+ + + + | RENAL FUNCTION SET | Routin | 03/02/2018 | | Results for this | | (NA,K,CL,CO2,BUN,CRE | e | 8:27 AM | | procedure are in the | | AT,GLUC,CA,PHOS,ALB | | PDT | | results section. | | ) | | | | | + +--------+ + + + | CAPILLARY BLOOD | Routin | 03/02/2018 | Pneumonia due to | Results for this | | GLUCOSE (NO CHG), | e | 5:56 AM | infectious organism, | procedure are in the | | POC | | PDT | unspecified | results section. | | | | | laterality, | | | | | | unspecified part of | | | | | | lung | | + +--------+ + + + | CAPILLARY BLOOD | Routin | 03/01/2018 | Pneumonia due to | Results for this | | GLUCOSE (NO CHG), | e | 11:22 PM | infectious organism, | procedure are in the | | POC | | PDT | unspecified | results section. | | | | | laterality, | | | | | | unspecified part of | | | | | | lung | | + +--------+ + + + | X-RAY PORTABLE | Routin | 03/01/2018 | | Results for this | | ABDOMEN 1 VIEW | e | 10:38 PM | | procedure are in the | | | | PDT | | results section. | + +--------+ + + + | CAPILLARY BLOOD | Routin | 03/01/2018 | Pneumonia due to | Results for this | | GLUCOSE (NO CHG), | e | 8:15 PM | infectious organism, | procedure are in the | | POC | | PDT | unspecified | results section. | | | | | laterality, | | | | | | unspecified part of | | | | | | lung | | + +--------+ + + + | X-RAY SPINAL TAP & | Routin | 03/01/2018 | | Results for this | | ASPIRATION | e | 7:58 PM | | procedure are in the | | W/GUIDANCE | | PDT | | results section. | + +--------+ + + + | NON REHAB LIAISON CYTOLOGY | Routin | 03/01/2018 | | Results for this | | | e | 7:54 PM | | procedure are in the | | | | PDT | | results section. | + +--------+ + + + | LAB HOLD - CSF | Routin | 03/01/2018 | | | | | e | 7:43 PM | | | | | | PDT | | | + +--------+ + + + | MENINGITIS/ENCEPHALI | Routin | 03/01/2018 | | Results for this | | TIS PANEL | e | 7:43 PM | | procedure are in the | | | | PDT | | results section. | + +--------+ + + + | CELL COUNT, CSF | Routin | 03/01/2018 | | Results for this | | | e | 7:43 PM | | procedure are in the | | | | PDT | | results section. | + +--------+ + + + | DIFFERENTIAL, CSF | Routin | 03/01/2018 | | Results for this | | | e | 7:43 PM | | procedure are in the | | | | PDT | | results section. | + +--------+ + + + | LAB OTHER | Routin | 03/01/2018 | | Results for this | | | e | 7:43 PM | | procedure are in the | | | | PDT | | results section. | + +--------+ + + + | LDH, CSF | Routin | 03/01/2018 | | Results for this | | | e | 7:43 PM | | procedure are in the | | | | PDT | | results section. | + +--------+ + + + | GLUCOSE, CSF | Routin | 03/01/2018 | | Results for this | | | e | 7:43 PM | | procedure are in the | | | | PDT | | results section. | + +--------+ + + + | CELL COUNT DIFF, CSF | Routin | 03/01/2018 | | Results for this | | | e | 7:43 PM | | procedure are in the | | | | PDT | | results section. | + +--------+ + + + | CULTURE, CSF BACTI | Routin | 03/01/2018 | | Results for this | | | e | 7:43 PM | | procedure are in the | | | | PDT | | results section. | + +--------+ + + + | GRAM SMEAR ONLY, | Routin | 03/01/2018 | | Results for this | | STAT | e | 7:43 PM | | procedure are in the | | | | PDT | | results section. | + +--------+ + + + | PROTEIN, CSF | Routin | 03/01/2018 | | Results for this | | | e | 7:43 PM | | procedure are in the | | | | PDT | | results section. | + +--------+ + + + | MRI BRAIN WWO | Routin | 03/01/2018 | | Results for this | | CONTRAST | e | 6:16 PM | | procedure are in the | | | | PDT | | results section. | + +--------+ + + + | MRI SPINE LUMBAR WO | Routin | 03/01/2018 | | Results for this | | CONT | e | 5:37 PM | | procedure are in the | | | | PDT | | results section. | + +--------+ + + + | CAPILLARY BLOOD | Routin | 03/01/2018 | Pneumonia due to | Results for this | | GLUCOSE (NO CHG), | e | 12:24 PM | infectious organism, | procedure are in the | | POC | | PDT | unspecified | results section. | | | | | laterality, | | | | | | unspecified part of | | | | | | lung | | + +--------+ + + + | CBC AND AUTO DIFF | Routin | 03/01/2018 | | Results for this | | | e | 8:21 AM | | procedure are in the | | | | PDT | | results section. | + +--------+ + + + | CBC, WITH | Routin | 03/01/2018 | | Results for this | | DIFFERENTIAL | e | 8:21 AM | | procedure are in the | | | | PDT | | results section. | + +--------+ + + + | RENAL FUNCTION SET | Routin | 03/01/2018 | | Results for this | | (NA,K,CL,CO2,BUN,CRE | e | 8:21 AM | | procedure are in the | | AT,GLUC,CA,PHOS,ALB | | PDT | | results section. | | ) | | | | | + +--------+ + + + | CAPILLARY BLOOD | Routin | 03/01/2018 | Pneumonia due to | Results for this | | GLUCOSE (NO CHG), | e | 6:17 AM | infectious organism, | procedure are in the | | POC | | PDT | unspecified | results section. | | | | | laterality, | | | | | | unspecified part of | | | | | | lung | | + +--------+ + + + | ANESTHESIA/SEDATION | | 03/01/2018 | | Results for this | | | | 12:00 AM | | procedure are in the | | | | PDT | | results section. | + +--------+ + + + | CAPILLARY BLOOD | Routin | 02/28/2018 | Pneumonia due to | Results for this | | GLUCOSE (NO CHG), | e | 11:38 PM | infectious organism, | procedure are in the | | POC | | PDT | unspecified | results section. | | | | | laterality, | | | | | | unspecified part of | | | | | | lung | | + +--------+ + + + | CAPILLARY BLOOD | Routin | 02/28/2018 | Pneumonia due to | Results for this | | GLUCOSE (NO CHG), | e | 6:55 PM | infectious organism, | procedure are in the | | POC | | PDT | unspecified | results section. | | | | | laterality, | | | | | | unspecified part of | | | | | | lung | | + +--------+ + + + | EEG ROUTINE | Routin | 02/28/2018 | | Results for this | | | e | 2:52 PM | | procedure are in the | | | | PDT | | results section. | + +--------+ + + + | BLOOD GASES, VENOUS | Urgent | 02/28/2018 | | Results for this | | - LAB | | 1:16 PM | | procedure are in the | | | | PDT | | results section. | + +--------+ + + + | CAPILLARY BLOOD | Routin | 02/28/2018 | Pneumonia due to | Results for this | | GLUCOSE (NO CHG), | e | 12:29 PM | infectious organism, | procedure are in the | | POC | | PDT | unspecified | results section. | | | | | laterality, | | | | | | unspecified part of | | | | | | lung | | + +--------+ + + + | RENAL FUNCTION SET | Routin | 02/28/2018 | | Results for this | | (NA,K,CL,CO2,BUN,CRE | e | 6:46 AM | | procedure are in the | | AT,GLUC,CA,PHOS,ALB | | PDT | | results section. | | ) | | | | | + +--------+ + + + | CBC AND AUTO DIFF | Routin | 02/28/2018 | | Results for this | | | e | 6:45 AM | | procedure are in the | | | | PDT | | results section. | + +--------+ + + + | CBC, WITH | Routin | 02/28/2018 | | Results for this | | DIFFERENTIAL | e | 6:45 AM | | procedure are in the | | | | PDT | | results section. | + +--------+ + + + | CAPILLARY BLOOD | Routin | 02/28/2018 | Pneumonia due to | Results for this | | GLUCOSE (NO CHG), | e | 6:25 AM | infectious organism, | procedure are in the | | POC | | PDT | unspecified | results section. | | | | | laterality, | | | | | | unspecified part of | | | | | | lung | | + +--------+ + + + | CAPILLARY BLOOD | Routin | 02/27/2018 | Pneumonia due to | Results for this | | GLUCOSE (NO CHG), | e | 9:59 PM | infectious organism, | procedure are in the | | POC | | PDT | unspecified | results section. | | | | | laterality, | | | | | | unspecified part of | | | | | | lung | | + +--------+ + + + | CAPILLARY BLOOD | Routin | 02/27/2018 | Pneumonia due to | Results for this | | GLUCOSE (NO CHG), | e | 1:58 PM | infectious organism, | procedure are in the | | POC | | PDT | unspecified | results section. | | | | | laterality, | | | | | | unspecified part of | | | | | | lung | | + +--------+ + + + | X-RAY SPINAL TAP & | Routin | 02/27/2018 | | Results for this | | ASPIRATION | e | 1:29 PM | | procedure are in the | | W/GUIDANCE | | PDT | | results section. | + +--------+ + + + | GRAM SMEAR ONLY, | Urgent | 02/27/2018 | | Results for this | | STAT | | 1:15 PM | | procedure are in the | | | | PDT | | results section. | + +--------+ + + + | CAPILLARY BLOOD | Routin | 02/27/2018 | Pneumonia due to | Results for this | | GLUCOSE (NO CHG), | e | 10:37 AM | infectious organism, | procedure are in the | | POC | | PDT | unspecified | results section. | | | | | laterality, | | | | | | unspecified part of | | | | | | lung | | + +--------+ + + + | INR | Routin | 02/27/2018 | | Results for this | | | e | 8:51 AM | | procedure are in the | | | | PDT | | results section. | + +--------+ + + + | CAPILLARY BLOOD | Routin | 02/27/2018 | Pneumonia due to | Results for this | | GLUCOSE (NO CHG), | e | 6:24 AM | infectious organism, | procedure are in the | | POC | | PDT | unspecified | results section. | | | | | laterality, | | | | | | unspecified part of | | | | | | lung | | + +--------+ + + + | CBC AND AUTO DIFF | Routin | 02/27/2018 | | Results for this | | | e | 5:44 AM | | procedure are in the | | | | PDT | | results section. | + +--------+ + + + | CBC, WITH | Routin | 02/27/2018 | | Results for this | | DIFFERENTIAL | e | 5:44 AM | | procedure are in the | | | | PDT | | results section. | + +--------+ + + + | RENAL FUNCTION SET | Routin | 02/27/2018 | | Results for this | | (NA,K,CL,CO2,BUN,CRE | e | 5:44 AM | | procedure are in the | | AT,GLUC,CA,PHOS,ALB | | PDT | | results section. | | ) | | | | | + +--------+ + + + | CAPILLARY BLOOD | Routin | 02/26/2018 | Pneumonia due to | Results for this | | GLUCOSE (NO CHG), | e | 10:08 PM | infectious organism, | procedure are in the | | POC | | PDT | unspecified | results section. | | | | | laterality, | | | | | | unspecified part of | | | | | | lung | | + +--------+ + + + | CAPILLARY BLOOD | Routin | 02/26/2018 | Pneumonia due to | Results for this | | GLUCOSE (NO CHG), | e | 5:27 PM | infectious organism, | procedure are in the | | POC | | PDT | unspecified | results section. | | | | | laterality, | | | | | | unspecified part of | | | | | | lung | | + +--------+ + + + | CAPILLARY BLOOD | Routin | 02/26/2018 | Pneumonia due to | Results for this | | GLUCOSE (NO CHG), | e | 12:34 PM | infectious organism, | procedure are in the | | POC | | PDT | unspecified | results section. | | | | | laterality, | | | | | | unspecified part of | | | | | | lung | | + +--------+ + + + | CBC AND AUTO DIFF | Routin | 02/26/2018 | | Results for this | | | e | 8:18 AM | | procedure are in the | | | | PDT | | results section. | + +--------+ + + + | CBC, WITH | Routin | 02/26/2018 | | Results for this | | DIFFERENTIAL | e | 8:18 AM | | procedure are in the | | | | PDT | | results section. | + +--------+ + + + | RENAL FUNCTION SET | Routin | 02/26/2018 | | Results for this | | (NA,K,CL,CO2,BUN,CRE | e | 8:18 AM | | procedure are in the | | AT,GLUC,CA,PHOS,ALB | | PDT | | results section. | | ) | | | | | + +--------+ + + + | CAPILLARY BLOOD | Routin | 02/26/2018 | Pneumonia due to | Results for this | | GLUCOSE (NO CHG), | e | 6:42 AM | infectious organism, | procedure are in the | | POC | | PDT | unspecified | results section. | | | | | laterality, | | | | | | unspecified part of | | | | | | lung | | + +--------+ + + + | CAPILLARY BLOOD | Routin | 02/26/2018 | Pneumonia due to | Results for this | | GLUCOSE (NO CHG), | e | 12:48 AM | infectious organism, | procedure are in the | | POC | | PDT | unspecified | results section. | | | | | laterality, | | | | | | unspecified part of | | | | | | lung | | + +--------+ + + + | CAPILLARY BLOOD | Routin | 02/25/2018 | Pneumonia due to | Results for this | | GLUCOSE (NO CHG), | e | 6:05 PM | infectious organism, | procedure are in the | | POC | | PDT | unspecified | results section. | | | | | laterality, | | | | | | unspecified part of | | | | | | lung | | + +--------+ + + + | CAPILLARY BLOOD | Routin | 02/25/2018 | Pneumonia due to | Results for this | | GLUCOSE (NO CHG), | e | 2:13 PM | infectious organism, | procedure are in the | | POC | | PDT | unspecified | results section. | | | | | laterality, | | | | | | unspecified part of | | | | | | lung | | + +--------+ + + + | CAPILLARY BLOOD | Routin | 02/25/2018 | Pneumonia due to | Results for this | | GLUCOSE (NO CHG), | e | 12:24 PM | infectious organism, | procedure are in the | | POC | | PDT | unspecified | results section. | | | | | laterality, | | | | | | unspecified part of | | | | | | lung | | + +--------+ + + + | CBC AND AUTO DIFF | Routin | 02/25/2018 | | Results for this | | | e | 6:21 AM | | procedure are in the | | | | PDT | | results section. | + +--------+ + + + | CBC, WITH | Routin | 02/25/2018 | | Results for this | | DIFFERENTIAL | e | 6:21 AM | | procedure are in the | | | | PDT | | results section. | + +--------+ + + + | RENAL FUNCTION SET | Routin | 02/25/2018 | | Results for this | | (NA,K,CL,CO2,BUN,CRE | e | 6:21 AM | | procedure are in the | | AT,GLUC,CA,PHOS,ALB | | PDT | | results section. | | ) | | | | | + +--------+ + + + | CAPILLARY BLOOD | Routin | 02/25/2018 | Pneumonia due to | Results for this | | GLUCOSE (NO CHG), | e | 6:15 AM | infectious organism, | procedure are in the | | POC | | PDT | unspecified | results section. | | | | | laterality, | | | | | | unspecified part of | | | | | | lung | | + +--------+ + + + | CAPILLARY BLOOD | Routin | 02/24/2018 | Pneumonia due to | Results for this | | GLUCOSE (NO CHG), | e | 11:07 PM | infectious organism, | procedure are in the | | POC | | PDT | unspecified | results section. | | | | | laterality, | | | | | | unspecified part of | | | | | | lung | | + +--------+ + + + | CAPILLARY BLOOD | Routin | 02/24/2018 | Pneumonia due to | Results for this | | GLUCOSE (NO CHG), | e | 6:13 PM | infectious organism, | procedure are in the | | POC | | PDT | unspecified | results section. | | | | | laterality, | | | | | | unspecified part of | | | | | | lung | | + +--------+ + + + | CAPILLARY BLOOD | Routin | 02/24/2018 | Pneumonia due to | Results for this | | GLUCOSE (NO CHG), | e | 2:26 PM | infectious organism, | procedure are in the | | POC | | PDT | unspecified | results section. | | | | | laterality, | | | | | | unspecified part of | | | | | | lung | | + +--------+ + + + | CAPILLARY BLOOD | Routin | 02/24/2018 | Pneumonia due to | Results for this | | GLUCOSE (NO CHG), | e | 11:41 AM | infectious organism, | procedure are in the | | POC | | PDT | unspecified | results section. | | | | | laterality, | | | | | | unspecified part of | | | | | | lung | | + +--------+ + + + | CBC AND AUTO DIFF | Routin | 02/24/2018 | | Results for this | | | e | 8:42 AM | | procedure are in the | | | | PDT | | results section. | + +--------+ + + + | CBC, WITH | Routin | 02/24/2018 | | Results for this | | DIFFERENTIAL | e | 8:42 AM | | procedure are in the | | | | PDT | | results section. | + +--------+ + + + | RENAL FUNCTION SET | Routin | 02/24/2018 | | Results for this | | (NA,K,CL,CO2,BUN,CRE | e | 8:42 AM | | procedure are in the | | AT,GLUC,CA,PHOS,ALB | | PDT | | results section. | | ) | | | | | + +--------+ + + + | CALCIUM, IONIZED, | Routin | 02/24/2018 | | Results for this | | WHOLE BLOOD | e | 8:42 AM | | procedure are in the | | | | PDT | | results section. | + +--------+ + + + | CAPILLARY BLOOD | Routin | 02/24/2018 | Pneumonia due to | Results for this | | GLUCOSE (NO CHG), | e | 6:03 AM | infectious organism, | procedure are in the | | POC | | PDT | unspecified | results section. | | | | | laterality, | | | | | | unspecified part of | | | | | | lung | | + +--------+ + + + | CAPILLARY BLOOD | Routin | 02/23/2018 | Pneumonia due to | Results for this | | GLUCOSE (NO CHG), | e | 11:36 PM | infectious organism, | procedure are in the | | POC | | PDT | unspecified | results section. | | | | | laterality, | | | | | | unspecified part of | | | | | | lung | | + +--------+ + + + | CAPILLARY BLOOD | Routin | 02/23/2018 | Pneumonia due to | Results for this | | GLUCOSE (NO CHG), | e | 9:20 PM | infectious organism, | procedure are in the | | POC | | PDT | unspecified | results section. | | | | | laterality, | | | | | | unspecified part of | | | | | | lung | | + +--------+ + + + | CAPILLARY BLOOD | Routin | 02/23/2018 | Pneumonia due to | Results for this | | GLUCOSE (NO CHG), | e | 6:34 PM | infectious organism, | procedure are in the | | POC | | PDT | unspecified | results section. | | | | | laterality, | | | | | | unspecified part of | | | | | | lung | | + +--------+ + + + | CAPILLARY BLOOD | Routin | 02/23/2018 | Pneumonia due to | Results for this | | GLUCOSE (NO CHG), | e | 1:15 PM | infectious organism, | procedure are in the | | POC | | PDT | unspecified | results section. | | | | | laterality, | | | | | | unspecified part of | | | | | | lung | | + +--------+ + + + | 12 LEAD ECG | Routin | 02/23/2018 | | Results for this | | | e | 10:31 AM | | procedure are in the | | | | PDT | | results section. | + +--------+ + + + | CAPILLARY BLOOD | Routin | 02/23/2018 | Pneumonia due to | Results for this | | GLUCOSE (NO CHG), | e | 7:47 AM | infectious organism, | procedure are in the | | POC | | PDT | unspecified | results section. | | | | | laterality, | | | | | | unspecified part of | | | | | | lung | | + +--------+ + + + | CBC AND AUTO DIFF | Routin | 02/23/2018 | | Results for this | | | e | 6:20 AM | | procedure are in the | | | | PDT | | results section. | + +--------+ + + + | CBC, WITH | Routin | 02/23/2018 | | Results for this | | DIFFERENTIAL | e | 6:20 AM | | procedure are in the | | | | PDT | | results section. | + +--------+ + + + | LIVER SET | Routin | 02/23/2018 | | Results for this | | (AST,ALT,BILI | e | 6:20 AM | | procedure are in the | | TOTAL,BILI | | PDT | | results section. | | DIRECT,ALK | | | | | | PHOS,ALB,PROT TOTAL) | | | | | + +--------+ + + + | RENAL FUNCTION SET | Routin | 02/23/2018 | | Results for this | | (NA,K,CL,CO2,BUN,CRE | e | 6:20 AM | | procedure are in the | | AT,GLUC,CA,PHOS,ALB | | PDT | | results section. | | ) | | | | | + +--------+ + + + | TSH | Routin | 02/23/2018 | | Results for this | | | e | 6:20 AM | | procedure are in the | | | | PDT | | results section. | + +--------+ + + + | LIPID SET (TRIG, T | Routin | 02/23/2018 | | Results for this | | CHOL, HDL, CALC LDL) | e | 6:20 AM | | procedure are in the | | | | PDT | | results section. | + +--------+ + + + | CAPILLARY BLOOD | Routin | 02/23/2018 | Pneumonia due to | Results for this | | GLUCOSE (NO CHG), | e | 6:11 AM | infectious organism, | procedure are in the | | POC | | PDT | unspecified | results section. | | | | | laterality, | | | | | | unspecified part of | | | | | | lung | | + +--------+ + + + | CAPILLARY BLOOD | Routin | 02/23/2018 | Pneumonia due to | Results for this | | GLUCOSE (NO CHG), | e | 12:28 AM | infectious organism, | procedure are in the | | POC | | PDT | unspecified | results section. | | | | | laterality, | | | | | | unspecified part of | | | | | | lung | | + +--------+ + + + | CAPILLARY BLOOD | Routin | 02/22/2018 | Pneumonia due to | Results for this | | GLUCOSE (NO CHG), | e | 9:59 PM | infectious organism, | procedure are in the | | POC | | PDT | unspecified | results section. | | | | | laterality, | | | | | | unspecified part of | | | | | | lung | | + +--------+ + + + | CAPILLARY BLOOD | Routin | 02/22/2018 | Pneumonia due to | Results for this | | GLUCOSE (NO CHG), | e | 6:09 PM | infectious organism, | procedure are in the | | POC | | PDT | unspecified | results section. | | | | | laterality, | | | | | | unspecified part of | | | | | | lung | | + +--------+ + + + | C. DIFFICILE PCR | Routin | 02/22/2018 | | Results for this | | | e | 3:12 PM | | procedure are in the | | | | PDT | | results section. | + +--------+ + + + | C. DIFFICILE TOXIN, | Routin | 02/22/2018 | | Results for this | | W/REFLEX | e | 3:12 PM | | procedure are in the | | CONFIRMATION IF | | PDT | | results section. | | INDETERMINATE | | | | | | RESULTS | | | | | + +--------+ + + + | CAPILLARY BLOOD | Routin | 02/22/2018 | Pneumonia due to | Results for this | | GLUCOSE (NO CHG), | e | 2:52 PM | infectious organism, | procedure are in the | | POC | | PDT | unspecified | results section. | | | | | laterality, | | | | | | unspecified part of | | | | | | lung | | + +--------+ + + + | CAPILLARY BLOOD | Routin | 02/22/2018 | Pneumonia due to | Results for this | | GLUCOSE (NO CHG), | e | 1:41 PM | infectious organism, | procedure are in the | | POC | | PDT | unspecified | results section. | | | | | laterality, | | | | | | unspecified part of | | | | | | lung | | + +--------+ + + + | X-RAY ABD LTD | Routin | 02/22/2018 | | Results for this | | FEEDING TUBE EVAL | e | 12:32 PM | | procedure are in the | | | | PDT | | results section. | + +--------+ + + + | CAPILLARY BLOOD | Routin | 02/22/2018 | Pneumonia due to | Results for this | | GLUCOSE (NO CHG), | e | 12:27 PM | infectious organism, | procedure are in the | | POC | | PDT | unspecified | results section. | | | | | laterality, | | | | | | unspecified part of | | | | | | lung | | + +--------+ + + + | CAPILLARY BLOOD | Routin | 02/22/2018 | Pneumonia due to | Results for this | | GLUCOSE (NO CHG), | e | 11:17 AM | infectious organism, | procedure are in the | | POC | | PDT | unspecified | results section. | | | | | laterality, | | | | | | unspecified part of | | | | | | lung | | + +--------+ + + + | CAPILLARY BLOOD | Routin | 02/22/2018 | Pneumonia due to | Results for this | | GLUCOSE (NO CHG), | e | 10:19 AM | infectious organism, | procedure are in the | | POC | | PDT | unspecified | results section. | | | | | laterality, | | | | | | unspecified part of | | | | | | lung | | + +--------+ + + + | CT HEAD WO CONTRAST | Routin | 02/22/2018 | | Results for this | | | e | 10:08 AM | | procedure are in the | | | | PDT | | results section. | + +--------+ + + + | CAPILLARY BLOOD | Routin | 02/22/2018 | Pneumonia due to | Results for this | | GLUCOSE (NO CHG), | e | 9:10 AM | infectious organism, | procedure are in the | | POC | | PDT | unspecified | results section. | | | | | laterality, | | | | | | unspecified part of | | | | | | lung | | + +--------+ + + + | CAPILLARY BLOOD | Routin | 02/22/2018 | Pneumonia due to | Results for this | | GLUCOSE (NO CHG), | e | 8:06 AM | infectious organism, | procedure are in the | | POC | | PDT | unspecified | results section. | | | | | laterality, | | | | | | unspecified part of | | | | | | lung | | + +--------+ + + + | CAPILLARY BLOOD | Routin | 02/22/2018 | Pneumonia due to | Results for this | | GLUCOSE (NO CHG), | e | 6:52 AM | infectious organism, | procedure are in the | | POC | | PDT | unspecified | results section. | | | | | laterality, | | | | | | unspecified part of | | | | | | lung | | + +--------+ + + + | CAPILLARY BLOOD | Routin | 02/22/2018 | Pneumonia due to | Results for this | | GLUCOSE (NO CHG), | e | 5:48 AM | infectious organism, | procedure are in the | | POC | | PDT | unspecified | results section. | | | | | laterality, | | | | | | unspecified part of | | | | | | lung | | + +--------+ + + + | CBC AND AUTO DIFF | Urgent | 02/22/2018 | | Results for this | | | | 5:44 AM | | procedure are in the | | | | PDT | | results section. | + +--------+ + + + | CBC, WITH | Urgent | 02/22/2018 | | Results for this | | DIFFERENTIAL | | 5:44 AM | | procedure are in the | | | | PDT | | results section. | + +--------+ + + + | RENAL FUNCTION SET | Urgent | 02/22/2018 | | Results for this | | (NA,K,CL,CO2,BUN,CRE | | 5:44 AM | | procedure are in the | | AT,GLUC,CA,PHOS,ALB | | PDT | | results section. | | ) | | | | | + +--------+ + + + | BLOOD GASES, VENOUS | Routin | 02/22/2018 | | Results for this | | - LAB | e | 5:44 AM | | procedure are in the | | | | PDT | | results section. | + +--------+ + + + | MAGNESIUM, PLASMA | Urgent | 02/22/2018 | | Results for this | | | | 5:44 AM | | procedure are in the | | | | PDT | | results section. | + +--------+ + + + | AMMONIA, PLASMA | Routin | 02/22/2018 | | Results for this | | | e | 5:44 AM | | procedure are in the | | | | PDT | | results section. | + +--------+ + + + | CAPILLARY BLOOD | Routin | 02/22/2018 | Pneumonia due to | Results for this | | GLUCOSE (NO CHG), | e | 4:30 AM | infectious organism, | procedure are in the | | POC | | PDT | unspecified | results section. | | | | | laterality, | | | | | | unspecified part of | | | | | | lung | | + +--------+ + + + | CAPILLARY BLOOD | Routin | 02/22/2018 | Pneumonia due to | Results for this | | GLUCOSE (NO CHG), | e | 3:29 AM | infectious organism, | procedure are in the | | POC | | PDT | unspecified | results section. | | | | | laterality, | | | | | | unspecified part of | | | | | | lung | | + +--------+ + + + | CAPILLARY BLOOD | Routin | 02/22/2018 | Pneumonia due to | Results for this | | GLUCOSE (NO CHG), | e | 2:31 AM | infectious organism, | procedure are in the | | POC | | PDT | unspecified | results section. | | | | | laterality, | | | | | | unspecified part of | | | | | | lung | | + +--------+ + + + | CAPILLARY BLOOD | Routin | 02/22/2018 | Pneumonia due to | Results for this | | GLUCOSE (NO CHG), | e | 1:27 AM | infectious organism, | procedure are in the | | POC | | PDT | unspecified | results section. | | | | | laterality, | | | | | | unspecified part of | | | | | | lung | | + +--------+ + + + | CAPILLARY BLOOD | Routin | 02/22/2018 | Pneumonia due to | Results for this | | GLUCOSE (NO CHG), | e | 12:32 AM | infectious organism, | procedure are in the | | POC | | PDT | unspecified | results section. | | | | | laterality, | | | | | | unspecified part of | | | | | | lung | | + +--------+ + + + | CAPILLARY BLOOD | Routin | 02/21/2018 | Pneumonia due to | Results for this | | GLUCOSE (NO CHG), | e | 11:26 PM | infectious organism, | procedure are in the | | POC | | PDT | unspecified | results section. | | | | | laterality, | | | | | | unspecified part of | | | | | | lung | | + +--------+ + + + | CAPILLARY BLOOD | Routin | 02/21/2018 | Pneumonia due to | Results for this | | GLUCOSE (NO CHG), | e | 10:28 PM | infectious organism, | procedure are in the | | POC | | PDT | unspecified | results section. | | | | | laterality, | | | | | | unspecified part of | | | | | | lung | | + +--------+ + + + | X-RAY CHEST 1 VIEW | Routin | 02/21/2018 | | Results for this | | | e | 10:01 PM | | procedure are in the | | | | PDT | | results section. | + +--------+ + + + | CAPILLARY BLOOD | Routin | 02/21/2018 | Pneumonia due to | Results for this | | GLUCOSE (NO CHG), | e | 9:29 PM | infectious organism, | procedure are in the | | POC | | PDT | unspecified | results section. | | | | | laterality, | | | | | | unspecified part of | | | | | | lung | | + +--------+ + + + | URINE CULTURE WORKUP | Routin | 02/21/2018 | | Results for this | | | e | 9:18 PM | | procedure are in the | | | | PDT | | results section. | + +--------+ + + + | CULTURE, URINE [facility] | Routin | 02/21/2018 | | Results for this | | | e | 9:18 PM | | procedure are in the | | | | PDT | | results section. | + +--------+ + + + | URINE, MICROSCOPIC | Routin | 02/21/2018 | | Results for this | | EXAM | e | 9:18 PM | | procedure are in the | | | | PDT | | results section. | + +--------+ + + + | URINE SCREEN FOR | Routin | 02/21/2018 | | Results for this | | CULTURE | e | 9:18 PM | | procedure are in the | | | | PDT | | results section. | + +--------+ + + + | CAPILLARY BLOOD | Routin | 02/21/2018 | Pneumonia due to | Results for this | | GLUCOSE (NO CHG), | e | 8:30 PM | infectious organism, | procedure are in the | | POC | | PDT | unspecified | results section. | | | | | laterality, | | | | | | unspecified part of | | | | | | lung | | + +--------+ + + + | CAPILLARY BLOOD | Routin | 02/21/2018 | Pneumonia due to | Results for this | | GLUCOSE (NO CHG), | e | 7:29 PM | infectious organism, | procedure are in the | | POC | | PDT | unspecified | results section. | | | | | laterality, | | | | | | unspecified part of | | | | | | lung | | + +--------+ + + + | CAPILLARY BLOOD | Routin | 02/21/2018 | Pneumonia due to | Results for this | | GLUCOSE (NO CHG), | e | 6:22 PM | infectious organism, | procedure are in the | | POC | | PDT | unspecified | results section. | | | | | laterality, | | | | | | unspecified part of | | | | | | lung | | + +--------+ + + + | CAPILLARY BLOOD | Routin | 02/21/2018 | Pneumonia due to | Results for this | | GLUCOSE (NO CHG), | e | 5:09 PM | infectious organism, | procedure are in the | | POC | | PDT | unspecified | results section. | | | | | laterality, | | | | | | unspecified part of | | | | | | lung | | + +--------+ + + + | CAPILLARY BLOOD | Routin | 02/21/2018 | Pneumonia due to | Results for this | | GLUCOSE (NO CHG), | e | 3:59 PM | infectious organism, | procedure are in the | | POC | | PDT | unspecified | results section. | | | | | laterality, | | | | | | unspecified part of | | | | | | lung | | + +--------+ + + + | CAPILLARY BLOOD | Routin | 02/21/2018 | Pneumonia due to | Results for this | | GLUCOSE (NO CHG), | e | 2:51 PM | infectious organism, | procedure are in the | | POC | | PDT | unspecified | results section. | | | | | laterality, | | | | | | unspecified part of | | | | | | lung | | + +--------+ + + + | CAPILLARY BLOOD | Routin | 02/21/2018 | Pneumonia due to | Results for this | | GLUCOSE (NO CHG), | e | 1:43 PM | infectious organism, | procedure are in the | | POC | | PDT | unspecified | results section. | | | | | laterality, | | | | | | unspecified part of | | | | | | lung | | + +--------+ + + + | CAPILLARY BLOOD | Routin | 02/21/2018 | Pneumonia due to | Results for this | | GLUCOSE (NO CHG), | e | 12:39 PM | infectious organism, | procedure are in the | | POC | | PDT | unspecified | results section. | | | | | laterality, | | | | | | unspecified part of | | | | | | lung | | + +--------+ + + + | CAPILLARY BLOOD | Routin | 02/21/2018 | Pneumonia due to | Results for this | | GLUCOSE (NO CHG), | e | 11:31 AM | infectious organism, | procedure are in the | | POC | | PDT | unspecified | results section. | | | | | laterality, | | | | | | unspecified part of | | | | | | lung | | + +--------+ + + + | CAPILLARY BLOOD | Routin | 02/21/2018 | Pneumonia due to | Results for this | | GLUCOSE (NO CHG), | e | 10:16 AM | infectious organism, | procedure are in the | | POC | | PDT | unspecified | results section. | | | | | laterality, | | | | | | unspecified part of | | | | | | lung | | + +--------+ + + + | CAPILLARY BLOOD | Routin | 02/21/2018 | Pneumonia due to | Results for this | | GLUCOSE (NO CHG), | e | 9:08 AM | infectious organism, | procedure are in the | | POC | | PDT | unspecified | results section. | | | | | laterality, | | | | | | unspecified part of | | | | | | lung | | + +--------+ + + + | CAPILLARY BLOOD | Routin | 02/21/2018 | Pneumonia due to | Results for this | | GLUCOSE (NO CHG), | e | 7:37 AM | infectious organism, | procedure are in the | | POC | | PDT | unspecified | results section. | | | | | laterality, | | | | | | unspecified part of | | | | | | lung | | + +--------+ + + + | CAPILLARY BLOOD | Routin | 02/21/2018 | Pneumonia due to | Results for this | | GLUCOSE (NO CHG), | e | 6:28 AM | infectious organism, | procedure are in the | | POC | | PDT | unspecified | results section. | | | | | laterality, | | | | | | unspecified part of | | | | | | lung | | + +--------+ + + + | CAPILLARY BLOOD | Routin | 02/21/2018 | Pneumonia due to | Results for this | | GLUCOSE (NO CHG), | e | 5:22 AM | infectious organism, | procedure are in the | | POC | | PDT | unspecified | results section. | | | | | laterality, | | | | | | unspecified part of | | | | | | lung | | + +--------+ + + + | CBC AND AUTO DIFF | Urgent | 02/21/2018 | | Results for this | | | | 4:30 AM | | procedure are in the | | | | PDT | | results section. | + +--------+ + + + | CBC, WITH | Urgent | 02/21/2018 | | Results for this | | DIFFERENTIAL | | 4:30 AM | | procedure are in the | | | | PDT | | results section. | + +--------+ + + + | RENAL FUNCTION SET | Urgent | 02/21/2018 | | Results for this | | (NA,K,CL,CO2,BUN,CRE | | 4:30 AM | | procedure are in the | | AT,GLUC,CA,PHOS,ALB | | PDT | | results section. | | ) | | | | | + +--------+ + + + | MAGNESIUM, PLASMA | Urgent | 02/21/2018 | | Results for this | | | | 4:30 AM | | procedure are in the | | | | PDT | | results section. | + +--------+ + + + | BLOOD GASES, VENOUS | Urgent | 02/21/2018 | | Results for this | | - LAB | | 4:19 AM | | procedure are in the | | | | PDT | | results section. | + +--------+ + + + | CAPILLARY BLOOD | Routin | 02/21/2018 | Pneumonia due to | Results for this | | GLUCOSE (NO CHG), | e | 4:18 AM | infectious organism, | procedure are in the | | POC | | PDT | unspecified | results section. | | | | | laterality, | | | | | | unspecified part of | | | | | | lung | | + +--------+ + + + | CAPILLARY BLOOD | Routin | 02/21/2018 | Pneumonia due to | Results for this | | GLUCOSE (NO CHG), | e | 3:04 AM | infectious organism, | procedure are in the | | POC | | PDT | unspecified | results section. | | | | | laterality, | | | | | | unspecified part of | | | | | | lung | | + +--------+ + + + | CAPILLARY BLOOD | Routin | 02/21/2018 | Pneumonia due to | Results for this | | GLUCOSE (NO CHG), | e | 2:00 AM | infectious organism, | procedure are in the | | POC | | PDT | unspecified | results section. | | | | | laterality, | | | | | | unspecified part of | | | | | | lung | | + +--------+ + + + | CAPILLARY BLOOD | Routin | 02/21/2018 | Pneumonia due to | Results for this | | GLUCOSE (NO CHG), | e | 1:08 AM | infectious organism, | procedure are in the | | POC | | PDT | unspecified | results section. | | | | | laterality, | | | | | | unspecified part of | | | | | | lung | | + +--------+ + + + | CARDIOLOGY | | 02/21/2018 | | Results for this | | | | 12:00 AM | | procedure are in the | | | | PDT | | results section. | + +--------+ + + + | CAPILLARY BLOOD | Routin | 02/20/2018 | Pneumonia due to | Results for this | | GLUCOSE (NO CHG), | e | 11:54 PM | infectious organism, | procedure are in the | | POC | | PDT | unspecified | results section. | | | | | laterality, | | | | | | unspecified part of | | | | | | lung | | + +--------+ + + + | CAPILLARY BLOOD | Routin | 02/20/2018 | Pneumonia due to | Results for this | | GLUCOSE (NO CHG), | e | 10:49 PM | infectious organism, | procedure are in the | | POC | | PDT | unspecified | results section. | | | | | laterality, | | | | | | unspecified part of | | | | | | lung | | + +--------+ + + + | CAPILLARY BLOOD | Routin | 02/20/2018 | Pneumonia due to | Results for this | | GLUCOSE (NO CHG), | e | 9:45 PM | infectious organism, | procedure are in the | | POC | | PDT | unspecified | results section. | | | | | laterality, | | | | | | unspecified part of | | | | | | lung | | + +--------+ + + + | CAPILLARY BLOOD | Routin | 02/20/2018 | Pneumonia due to | Results for this | | GLUCOSE (NO CHG), | e | 8:42 PM | infectious organism, | procedure are in the | | POC | | PDT | unspecified | results section. | | | | | laterality, | | | | | | unspecified part of | | | | | | lung | | + +--------+ + + + | CAPILLARY BLOOD | Routin | 02/20/2018 | Pneumonia due to | Results for this | | GLUCOSE (NO CHG), | e | 7:32 PM | infectious organism, | procedure are in the | | POC | | PDT | unspecified | results section. | | | | | laterality, | | | | | | unspecified part of | | | | | | lung | | + +--------+ + + + | CAPILLARY BLOOD | Routin | 02/20/2018 | Pneumonia due to | Results for this | | GLUCOSE (NO CHG), | e | 7:04 PM | infectious organism, | procedure are in the | | POC | | PDT | unspecified | results section. | | | | | laterality, | | | | | | unspecified part of | | | | | | lung | | + +--------+ + + + | CAPILLARY BLOOD | Routin | 02/20/2018 | Pneumonia due to | Results for this | | GLUCOSE (NO CHG), | e | 6:12 PM | infectious organism, | procedure are in the | | POC | | PDT | unspecified | results section. | | | | | laterality, | | | | | | unspecified part of | | | | | | lung | | + +--------+ + + + | BLOOD GASES, VENOUS | Urgent | 02/20/2018 | | Results for this | | - LAB | | 4:45 PM | | procedure are in the | | | | PDT | | results section. | + +--------+ + + + | CAPILLARY BLOOD | Routin | 02/20/2018 | Pneumonia due to | Results for this | | GLUCOSE (NO CHG), | e | 4:24 PM | infectious organism, | procedure are in the | | POC | | PDT | unspecified | results section. | | | | | laterality, | | | | | | unspecified part of | | | | | | lung | | + +--------+ + + + | CAPILLARY BLOOD | Routin | 02/20/2018 | Pneumonia due to | Results for this | | GLUCOSE (NO CHG), | e | 3:03 PM | infectious organism, | procedure are in the | | POC | | PDT | unspecified | results section. | | | | | laterality, | | | | | | unspecified part of | | | | | | lung | | + +--------+ + + + | BLOOD GASES, VENOUS | Urgent | 02/20/2018 | | Results for this | | - LAB | | 2:49 PM | | procedure are in the | | | | PDT | | results section. | + +--------+ + + + | CAPILLARY BLOOD | Routin | 02/20/2018 | Pneumonia due to | Results for this | | GLUCOSE (NO CHG), | e | 1:25 PM | infectious organism, | procedure are in the | | POC | | PDT | unspecified | results section. | | | | | laterality, | | | | | | unspecified part of | | | | | | lung | | + +--------+ + + + | CAPILLARY BLOOD | Routin | 02/20/2018 | Pneumonia due to | Results for this | | GLUCOSE (NO CHG), | e | 12:01 PM | infectious organism, | procedure are in the | | POC | | PDT | unspecified | results section. | | | | | laterality, | | | | | | unspecified part of | | | | | | lung | | + +--------+ + + + | CAPILLARY BLOOD | Routin | 02/20/2018 | Pneumonia due to | Results for this | | GLUCOSE (NO CHG), | e | 10:53 AM | infectious organism, | procedure are in the | | POC | | PDT | unspecified | results section. | | | | | laterality, | | | | | | unspecified part of | | | | | | lung | | + +--------+ + + + | CAPILLARY BLOOD | Routin | 02/20/2018 | Pneumonia due to | Results for this | | GLUCOSE (NO CHG), | e | 9:45 AM | infectious organism, | procedure are in the | | POC | | PDT | unspecified | results section. | | | | | laterality, | | | | | | unspecified part of | | | | | | lung | | + +--------+ + + + | CAPILLARY BLOOD | Routin | 02/20/2018 | Pneumonia due to | Results for this | | GLUCOSE (NO CHG), | e | 8:37 AM | infectious organism, | procedure are in the | | POC | | PDT | unspecified | results section. | | | | | laterality, | | | | | | unspecified part of | | | | | | lung | | + +--------+ + + + | CAPILLARY BLOOD | Routin | 02/20/2018 | Pneumonia due to | Results for this | | GLUCOSE (NO CHG), | e | 7:13 AM | infectious organism, | procedure are in the | | POC | | PDT | unspecified | results section. | | | | | laterality, | | | | | | unspecified part of | | | | | | lung | | + +--------+ + + + | CAPILLARY BLOOD | Routin | 02/20/2018 | Pneumonia due to | Results for this | | GLUCOSE (NO CHG), | e | 6:09 AM | infectious organism, | procedure are in the | | POC | | PDT | unspecified | results section. | | | | | laterality, | | | | | | unspecified part of | | | | | | lung | | + +--------+ + + + | CAPILLARY BLOOD | Routin | 02/20/2018 | Pneumonia due to | Results for this | | GLUCOSE (NO CHG), | e | 5:04 AM | infectious organism, | procedure are in the | | POC | | PDT | unspecified | results section. | | | | | laterality, | | | | | | unspecified part of | | | | | | lung | | + +--------+ + + + | RENAL FUNCTION SET | Urgent | 02/20/2018 | | Results for this | | (NA,K,CL,CO2,BUN,CRE | | 5:03 AM | | procedure are in the | | AT,GLUC,CA,PHOS,ALB | | PDT | | results section. | | ) | | | | | + +--------+ + + + | MAGNESIUM, PLASMA | Urgent | 02/20/2018 | | Results for this | | | | 5:03 AM | | procedure are in the | | | | PDT | | results section. | + +--------+ + + + | CBC AND AUTO DIFF | Urgent | 02/20/2018 | | Results for this | | | | 4:53 AM | | procedure are in the | | | | PDT | | results section. | + +--------+ + + + | CBC, WITH | Urgent | 02/20/2018 | | Results for this | | DIFFERENTIAL | | 4:53 AM | | procedure are in the | | | | PDT | | results section. | + +--------+ + + + | CAPILLARY BLOOD | Routin | 02/20/2018 | Pneumonia due to | Results for this | | GLUCOSE (NO CHG), | e | 4:01 AM | infectious organism, | procedure are in the | | POC | | PDT | unspecified | results section. | | | | | laterality, | | | | | | unspecified part of | | | | | | lung | | + +--------+ + + + | CAPILLARY BLOOD | Routin | 02/20/2018 | Pneumonia due to | Results for this | | GLUCOSE (NO CHG), | e | 2:56 AM | infectious organism, | procedure are in the | | POC | | PDT | unspecified | results section. | | | | | laterality, | | | | | | unspecified part of | | | | | | lung | | + +--------+ + + + | CAPILLARY BLOOD | Routin | 02/20/2018 | Pneumonia due to | Results for this | | GLUCOSE (NO CHG), | e | 1:54 AM | infectious organism, | procedure are in the | | POC | | PDT | unspecified | results section. | | | | | laterality, | | | | | | unspecified part of | | | | | | lung | | + +--------+ + + + | CAPILLARY BLOOD | Routin | 02/20/2018 | Pneumonia due to | Results for this | | GLUCOSE (NO CHG), | e | 12:49 AM | infectious organism, | procedure are in the | | POC | | PDT | unspecified | results section. | | | | | laterality, | | | | | | unspecified part of | | | | | | lung | | + +--------+ + + + | CAPILLARY BLOOD | Routin | 02/19/2018 | Pneumonia due to | Results for this | | GLUCOSE (NO CHG), | e | 11:45 PM | infectious organism, | procedure are in the | | POC | | PDT | unspecified | results section. | | | | | laterality, | | | | | | unspecified part of | | | | | | lung | | + +--------+ + + + | CAPILLARY BLOOD | Routin | 02/19/2018 | Pneumonia due to | Results for this | | GLUCOSE (NO CHG), | e | 10:37 PM | infectious organism, | procedure are in the | | POC | | PDT | unspecified | results section. | | | | | laterality, | | | | | | unspecified part of | | | | | | lung | | + +--------+ + + + | CAPILLARY BLOOD | Routin | 02/19/2018 | Pneumonia due to | Results for this | | GLUCOSE (NO CHG), | e | 9:38 PM | infectious organism, | procedure are in the | | POC | | PDT | unspecified | results section. | | | | | laterality, | | | | | | unspecified part of | | | | | | lung | | + +--------+ + + + | CAPILLARY BLOOD | Routin | 02/19/2018 | Pneumonia due to | Results for this | | GLUCOSE (NO CHG), | e | 8:28 PM | infectious organism, | procedure are in the | | POC | | PDT | unspecified | results section. | | | | | laterality, | | | | | | unspecified part of | | | | | | lung | | + +--------+ + + + | CAPILLARY BLOOD | Routin | 02/19/2018 | Pneumonia due to | Results for this | | GLUCOSE (NO CHG), | e | 7:12 PM | infectious organism, | procedure are in the | | POC | | PDT | unspecified | results section. | | | | | laterality, | | | | | | unspecified part of | | | | | | lung | | + +--------+ + + + | CAPILLARY BLOOD | Routin | 02/19/2018 | Pneumonia due to | Results for this | | GLUCOSE (NO CHG), | e | 6:06 PM | infectious organism, | procedure are in the | | POC | | PDT | unspecified | results section. | | | | | laterality, | | | | | | unspecified part of | | | | | | lung | | + +--------+ + + + | CAPILLARY BLOOD | Routin | 02/19/2018 | Pneumonia due to | Results for this | | GLUCOSE (NO CHG), | e | 5:01 PM | infectious organism, | procedure are in the | | POC | | PDT | unspecified | results section. | | | | | laterality, | | | | | | unspecified part of | | | | | | lung | | + +--------+ + + + | CAPILLARY BLOOD | Routin | 02/19/2018 | Pneumonia due to | Results for this | | GLUCOSE (NO CHG), | e | 4:08 PM | infectious organism, | procedure are in the | | POC | | PDT | unspecified | results section. | | | | | laterality, | | | | | | unspecified part of | | | | | | lung | | + +--------+ + + + | CAPILLARY BLOOD | Routin | 02/19/2018 | Pneumonia due to | Results for this | | GLUCOSE (NO CHG), | e | 3:17 PM | infectious organism, | procedure are in the | | POC | | PDT | unspecified | results section. | | | | | laterality, | | | | | | unspecified part of | | | | | | lung | | + +--------+ + + + | CAPILLARY BLOOD | Routin | 02/19/2018 | Pneumonia due to | Results for this | | GLUCOSE (NO CHG), | e | 2:12 PM | infectious organism, | procedure are in the | | POC | | PDT | unspecified | results section. | | | | | laterality, | | | | | | unspecified part of | | | | | | lung | | + +--------+ + + + | CAPILLARY BLOOD | Routin | 02/19/2018 | Pneumonia due to | Results for this | | GLUCOSE (NO CHG), | e | 1:05 PM | infectious organism, | procedure are in the | | POC | | PDT | unspecified | results section. | | | | | laterality, | | | | | | unspecified part of | | | | | | lung | | + +--------+ + + + | CAPILLARY BLOOD | Routin | 02/19/2018 | Pneumonia due to | Results for this | | GLUCOSE (NO CHG), | e | 12:09 PM | infectious organism, | procedure are in the | | POC | | PDT | unspecified | results section. | | | | | laterality, | | | | | | unspecified part of | | | | | | lung | | + +--------+ + + + | CAPILLARY BLOOD | Routin | 02/19/2018 | Pneumonia due to | Results for this | | GLUCOSE (NO CHG), | e | 11:07 AM | infectious organism, | procedure are in the | | POC | | PDT | unspecified | results section. | | | | | laterality, | | | | | | unspecified part of | | | | | | lung | | + +--------+ + + + | CAPILLARY BLOOD | Routin | 02/19/2018 | Pneumonia due to | Results for this | | GLUCOSE (NO CHG), | e | 10:02 AM | infectious organism, | procedure are in the | | POC | | PDT | unspecified | results section. | | | | | laterality, | | | | | | unspecified part of | | | | | | lung | | + +--------+ + + + | CAPILLARY BLOOD | Routin | 02/19/2018 | Pneumonia due to | Results for this | | GLUCOSE (NO CHG), | e | 8:59 AM | infectious organism, | procedure are in the | | POC | | PDT | unspecified | results section. | | | | | laterality, | | | | | | unspecified part of | | | | | | lung | | + +--------+ + + + | CAPILLARY BLOOD | Routin | 02/19/2018 | Pneumonia due to | Results for this | | GLUCOSE (NO CHG), | e | 7:45 AM | infectious organism, | procedure are in the | | POC | | PDT | unspecified | results section. | | | | | laterality, | | | | | | unspecified part of | | | | | | lung | | + +--------+ + + + | CAPILLARY BLOOD | Routin | 02/19/2018 | Pneumonia due to | Results for this | | GLUCOSE (NO CHG), | e | 6:41 AM | infectious organism, | procedure are in the | | POC | | PDT | unspecified | results section. | | | | | laterality, | | | | | | unspecified part of | | | | | | lung | | + +--------+ + + + | CAPILLARY BLOOD | Routin | 02/19/2018 | Pneumonia due to | Results for this | | GLUCOSE (NO CHG), | e | 5:35 AM | infectious organism, | procedure are in the | | POC | | PDT | unspecified | results section. | | | | | laterality, | | | | | | unspecified part of | | | | | | lung | | + +--------+ + + + | CAPILLARY BLOOD | Routin | 02/19/2018 | Pneumonia due to | Results for this | | GLUCOSE (NO CHG), | e | 4:31 AM | infectious organism, | procedure are in the | | POC | | PDT | unspecified | results section. | | | | | laterality, | | | | | | unspecified part of | | | | | | lung | | + +--------+ + + + | CAPILLARY BLOOD | Routin | 02/19/2018 | Pneumonia due to | Results for this | | GLUCOSE (NO CHG), | e | 3:23 AM | infectious organism, | procedure are in the | | POC | | PDT | unspecified | results section. | | | | | laterality, | | | | | | unspecified part of | | | | | | lung | | + +--------+ + + + | RENAL FUNCTION SET | Urgent | 02/19/2018 | | Results for this | | (NA,K,CL,CO2,BUN,CRE | | 3:17 AM | | procedure are in the | | AT,GLUC,CA,PHOS,ALB | | PDT | | results section. | | ) | | | | | + +--------+ + + + | MAGNESIUM, PLASMA | Urgent | 02/19/2018 | | Results for this | | | | 3:17 AM | | procedure are in the | | | | PDT | | results section. | + +--------+ + + + | CAPILLARY BLOOD | Routin | 02/19/2018 | Pneumonia due to | Results for this | | GLUCOSE (NO CHG), | e | 2:22 AM | infectious organism, | procedure are in the | | POC | | PDT | unspecified | results section. | | | | | laterality, | | | | | | unspecified part of | | | | | | lung | | + +--------+ + + + | CAPILLARY BLOOD | Routin | 02/19/2018 | Pneumonia due to | Results for this | | GLUCOSE (NO CHG), | e | 1:16 AM | infectious organism, | procedure are in the | | POC | | PDT | unspecified | results section. | | | | | laterality, | | | | | | unspecified part of | | | | | | lung | | + +--------+ + + + | CAPILLARY BLOOD | Routin | 02/19/2018 | Pneumonia due to | Results for this | | GLUCOSE (NO CHG), | e | 12:11 AM | infectious organism, | procedure are in the | | POC | | PDT | unspecified | results section. | | | | | laterality, | | | | | | unspecified part of | | | | | | lung | | + +--------+ + + + | CAPILLARY BLOOD | Routin | 02/18/2018 | Pneumonia due to | Results for this | | GLUCOSE (NO CHG), | e | 11:08 PM | infectious organism, | procedure are in the | | POC | | PDT | unspecified | results section. | | | | | laterality, | | | | | | unspecified part of | | | | | | lung | | + +--------+ + + + | CAPILLARY BLOOD | Routin | 02/18/2018 | Pneumonia due to | Results for this | | GLUCOSE (NO CHG), | e | 9:08 PM | infectious organism, | procedure are in the | | POC | | PDT | unspecified | results section. | | | | | laterality, | | | | | | unspecified part of | | | | | | lung | | + +--------+ + + + | CAPILLARY BLOOD | Routin | 02/18/2018 | Pneumonia due to | Results for this | | GLUCOSE (NO CHG), | e | 6:55 PM | infectious organism, | procedure are in the | | POC | | PDT | unspecified | results section. | | | | | laterality, | | | | | | unspecified part of | | | | | | lung | | + +--------+ + + + | CAPILLARY BLOOD | Routin | 02/18/2018 | Pneumonia due to | Results for this | | GLUCOSE (NO CHG), | e | 4:59 PM | infectious organism, | procedure are in the | | POC | | PDT | unspecified | results section. | | | | | laterality, | | | | | | unspecified part of | | | | | | lung | | + +--------+ + + + | CAPILLARY BLOOD | Routin | 02/18/2018 | Pneumonia due to | Results for this | | GLUCOSE (NO CHG), | e | 3:57 PM | infectious organism, | procedure are in the | | POC | | PDT | unspecified | results section. | | | | | laterality, | | | | | | unspecified part of | | | | | | lung | | + +--------+ + + + | CAPILLARY BLOOD | Routin | 02/18/2018 | Pneumonia due to | Results for this | | GLUCOSE (NO CHG), | e | 2:51 PM | infectious organism, | procedure are in the | | POC | | PDT | unspecified | results section. | | | | | laterality, | | | | | | unspecified part of | | | | | | lung | | + +--------+ + + + | CAPILLARY BLOOD | Routin | 02/18/2018 | Pneumonia due to | Results for this | | GLUCOSE (NO CHG), | e | 1:48 PM | infectious organism, | procedure are in the | | POC | | PDT | unspecified | results section. | | | | | laterality, | | | | | | unspecified part of | | | | | | lung | | + +--------+ + + + | CAPILLARY BLOOD | Routin | 02/18/2018 | Pneumonia due to | Results for this | | GLUCOSE (NO CHG), | e | 12:41 PM | infectious organism, | procedure are in the | | POC | | PDT | unspecified | results section. | | | | | laterality, | | | | | | unspecified part of | | | | | | lung | | + +--------+ + + + | CAPILLARY BLOOD | Routin | 02/18/2018 | Pneumonia due to | Results for this | | GLUCOSE (NO CHG), | e | 11:32 AM | infectious organism, | procedure are in the | | POC | | PDT | unspecified | results section. | | | | | laterality, | | | | | | unspecified part of | | | | | | lung | | + +--------+ + + + | CAPILLARY BLOOD | Routin | 02/18/2018 | Pneumonia due to | Results for this | | GLUCOSE (NO CHG), | e | 10:29 AM | infectious organism, | procedure are in the | | POC | | PDT | unspecified | results section. | | | | | laterality, | | | | | | unspecified part of | | | | | | lung | | + +--------+ + + + | CAPILLARY BLOOD | Routin | 02/18/2018 | Pneumonia due to | Results for this | | GLUCOSE (NO CHG), | e | 9:28 AM | infectious organism, | procedure are in the | | POC | | PDT | unspecified | results section. | | | | | laterality, | | | | | | unspecified part of | | | | | | lung | | + +--------+ + + + | CAPILLARY BLOOD | Routin | 02/18/2018 | Pneumonia due to | Results for this | | GLUCOSE (NO CHG), | e | 9:25 AM | infectious organism, | procedure are in the | | POC | | PDT | unspecified | results section. | | | | | laterality, | | | | | | unspecified part of | | | | | | lung | | + +--------+ + + + | CAPILLARY BLOOD | Routin | 02/18/2018 | Pneumonia due to | Results for this | | GLUCOSE (NO CHG), | e | 8:11 AM | infectious organism, | procedure are in the | | POC | | PDT | unspecified | results section. | | | | | laterality, | | | | | | unspecified part of | | | | | | lung | | + +--------+ + + + | CAPILLARY BLOOD | Routin | 02/18/2018 | Pneumonia due to | Results for this | | GLUCOSE (NO CHG), | e | 7:06 AM | infectious organism, | procedure are in the | | POC | | PDT | unspecified | results section. | | | | | laterality, | | | | | | unspecified part of | | | | | | lung | | + +--------+ + + + | CAPILLARY BLOOD | Routin | 02/18/2018 | Pneumonia due to | Results for this | | GLUCOSE (NO CHG), | e | 6:01 AM | infectious organism, | procedure are in the | | POC | | PDT | unspecified | results section. | | | | | laterality, | | | | | | unspecified part of | | | | | | lung | | + +--------+ + + + | CAPILLARY BLOOD | Routin | 02/18/2018 | Pneumonia due to | Results for this | | GLUCOSE (NO CHG), | e | 4:53 AM | infectious organism, | procedure are in the | | POC | | PDT | unspecified | results section. | | | | | laterality, | | | | | | unspecified part of | | | | | | lung | | + +--------+ + + + | CBC (HEMOGRAM) ONLY | Urgent | 02/18/2018 | | Results for this | | | | 3:43 AM | | procedure are in the | | | | PDT | | results section. | + +--------+ + + + | BASIC METABOLIC SET | Urgent | 02/18/2018 | | Results for this | | (NA, K, CL, TCO2, | | 3:43 AM | | procedure are in the | | BUN, CR, GLU, CA) | | PDT | | results section. | + +--------+ + + + | CBC ONLY | Urgent | 02/18/2018 | | Results for this | | | | 3:43 AM | | procedure are in the | | | | PDT | | results section. | + +--------+ + + + | CAPILLARY BLOOD | Routin | 02/18/2018 | Pneumonia due to | Results for this | | GLUCOSE (NO CHG), | e | 3:42 AM | infectious organism, | procedure are in the | | POC | | PDT | unspecified | results section. | | | | | laterality, | | | | | | unspecified part of | | | | | | lung | | + +--------+ + + + | CAPILLARY BLOOD | Routin | 02/18/2018 | Pneumonia due to | Results for this | | GLUCOSE (NO CHG), | e | 2:23 AM | infectious organism, | procedure are in the | | POC | | PDT | unspecified | results section. | | | | | laterality, | | | | | | unspecified part of | | | | | | lung | | + +--------+ + + + | CAPILLARY BLOOD | Routin | 02/18/2018 | Pneumonia due to | Results for this | | GLUCOSE (NO CHG), | e | 1:19 AM | infectious organism, | procedure are in the | | POC | | PDT | unspecified | results section. | | | | | laterality, | | | | | | unspecified part of | | | | | | lung | | + +--------+ + + + | CAPILLARY BLOOD | Routin | 02/18/2018 | Pneumonia due to | Results for this | | GLUCOSE (NO CHG), | e | 12:14 AM | infectious organism, | procedure are in the | | POC | | PDT | unspecified | results section. | | | | | laterality, | | | | | | unspecified part of | | | | | | lung | | + +--------+ + + + | CAPILLARY BLOOD | Routin | 02/17/2018 | Pneumonia due to | Results for this | | GLUCOSE (NO CHG), | e | 11:07 PM | infectious organism, | procedure are in the | | POC | | PDT | unspecified | results section. | | | | | laterality, | | | | | | unspecified part of | | | | | | lung | | + +--------+ + + + | CAPILLARY BLOOD | Routin | 02/17/2018 | Pneumonia due to | Results for this | | GLUCOSE (NO CHG), | e | 10:01 PM | infectious organism, | procedure are in the | | POC | | PDT | unspecified | results section. | | | | | laterality, | | | | | | unspecified part of | | | | | | lung | | + +--------+ + + + | CAPILLARY BLOOD | Routin | 02/17/2018 | Pneumonia due to | Results for this | | GLUCOSE (NO CHG), | e | 9:00 PM | infectious organism, | procedure are in the | | POC | | PDT | unspecified | results section. | | | | | laterality, | | | | | | unspecified part of | | | | | | lung | | + +--------+ + + + | CAPILLARY BLOOD | Routin | 02/17/2018 | Pneumonia due to | Results for this | | GLUCOSE (NO CHG), | e | 7:47 PM | infectious organism, | procedure are in the | | POC | | PDT | unspecified | results section. | | | | | laterality, | | | | | | unspecified part of | | | | | | lung | | + +--------+ + + + | CAPILLARY BLOOD | Routin | 02/17/2018 | Pneumonia due to | Results for this | | GLUCOSE (NO CHG), | e | 6:41 PM | infectious organism, | procedure are in the | | POC | | PDT | unspecified | results section. | | | | | laterality, | | | | | | unspecified part of | | | | | | lung | | + +--------+ + + + | CAPILLARY BLOOD | Routin | 02/17/2018 | Pneumonia due to | Results for this | | GLUCOSE (NO CHG), | e | 5:42 PM | infectious organism, | procedure are in the | | POC | | PDT | unspecified | results section. | | | | | laterality, | | | | | | unspecified part of | | | | | | lung | | + +--------+ + + + | CAPILLARY BLOOD | Routin | 02/17/2018 | Pneumonia due to | Results for this | | GLUCOSE (NO CHG), | e | 4:33 PM | infectious organism, | procedure are in the | | POC | | PDT | unspecified | results section. | | | | | laterality, | | | | | | unspecified part of | | | | | | lung | | + +--------+ + + + | CAPILLARY BLOOD | Routin | 02/17/2018 | Pneumonia due to | Results for this | | GLUCOSE (NO CHG), | e | 3:21 PM | infectious organism, | procedure are in the | | POC | | PDT | unspecified | results section. | | | | | laterality, | | | | | | unspecified part of | | | | | | lung | | + +--------+ + + + | CAPILLARY BLOOD | Routin | 02/17/2018 | Pneumonia due to | Results for this | | GLUCOSE (NO CHG), | e | 2:17 PM | infectious organism, | procedure are in the | | POC | | PDT | unspecified | results section. | | | | | laterality, | | | | | | unspecified part of | | | | | | lung | | + +--------+ + + + | CAPILLARY BLOOD | Routin | 02/17/2018 | Pneumonia due to | Results for this | | GLUCOSE (NO CHG), | e | 1:14 PM | infectious organism, | procedure are in the | | POC | | PDT | unspecified | results section. | | | | | laterality, | | | | | | unspecified part of | | | | | | lung | | + +--------+ + + + | CAPILLARY BLOOD | Routin | 02/17/2018 | Pneumonia due to | Results for this | | GLUCOSE (NO CHG), | e | 12:13 PM | infectious organism, | procedure are in the | | POC | | PDT | unspecified | results section. | | | | | laterality, | | | | | | unspecified part of | | | | | | lung | | + +--------+ + + + | CAPILLARY BLOOD | Routin | 02/17/2018 | Pneumonia due to | Results for this | | GLUCOSE (NO CHG), | e | 11:05 AM | infectious organism, | procedure are in the | | POC | | PDT | unspecified | results section. | | | | | laterality, | | | | | | unspecified part of | | | | | | lung | | + +--------+ + + + | CAPILLARY BLOOD | Routin | 02/17/2018 | Pneumonia due to | Results for this | | GLUCOSE (NO CHG), | e | 9:03 AM | infectious organism, | procedure are in the | | POC | | PDT | unspecified | results section. | | | | | laterality, | | | | | | unspecified part of | | | | | | lung | | + +--------+ + + + | CAPILLARY BLOOD | Routin | 02/17/2018 | Pneumonia due to | Results for this | | GLUCOSE (NO CHG), | e | 7:00 AM | infectious organism, | procedure are in the | | POC | | PDT | unspecified | results section. | | | | | laterality, | | | | | | unspecified part of | | | | | | lung | | + +--------+ + + + | CAPILLARY BLOOD | Routin | 02/17/2018 | Pneumonia due to | Results for this | | GLUCOSE (NO CHG), | e | 6:08 AM | infectious organism, | procedure are in the | | POC | | PDT | unspecified | results section. | | | | | laterality, | | | | | | unspecified part of | | | | | | lung | | + +--------+ + + + | CAPILLARY BLOOD | Routin | 02/17/2018 | Pneumonia due to | Results for this | | GLUCOSE (NO CHG), | e | 5:03 AM | infectious organism, | procedure are in the | | POC | | PDT | unspecified | results section. | | | | | laterality, | | | | | | unspecified part of | | | | | | lung | | + +--------+ + + + | CAPILLARY BLOOD | Routin | 02/17/2018 | Pneumonia due to | Results for this | | GLUCOSE (NO CHG), | e | 4:19 AM | infectious organism, | procedure are in the | | POC | | PDT | unspecified | results section. | | | | | laterality, | | | | | | unspecified part of | | | | | | lung | | + +--------+ + + + | CBC AND AUTO DIFF | Urgent | 02/17/2018 | | Results for this | | | | 4:03 AM | | procedure are in the | | | | PDT | | results section. | + +--------+ + + + | CBC, WITH | Urgent | 02/17/2018 | | Results for this | | DIFFERENTIAL | | 4:03 AM | | procedure are in the | | | | PDT | | results section. | + +--------+ + + + | RENAL FUNCTION SET | Urgent | 02/17/2018 | | Results for this | | (NA,K,CL,CO2,BUN,CRE | | 4:03 AM | | procedure are in the | | AT,GLUC,CA,PHOS,ALB | | PDT | | results section. | | ) | | | | | + +--------+ + + + | MAGNESIUM, PLASMA | Urgent | 02/17/2018 | | Results for this | | | | 4:03 AM | | procedure are in the | | | | PDT | | results section. | + +--------+ + + + | TRIGLYCERIDES, | Urgent | 02/17/2018 | | Results for this | | PLASMA | | 4:03 AM | | procedure are in the | | | | PDT | | results section. | + +--------+ + + + | CAPILLARY BLOOD | Routin | 02/17/2018 | Pneumonia due to | Results for this | | GLUCOSE (NO CHG), | e | 3:15 AM | infectious organism, | procedure are in the | | POC | | PDT | unspecified | results section. | | | | | laterality, | | | | | | unspecified part of | | | | | | lung | | + +--------+ + + + | CAPILLARY BLOOD | Routin | 02/17/2018 | Pneumonia due to | Results for this | | GLUCOSE (NO CHG), | e | 2:06 AM | infectious organism, | procedure are in the | | POC | | PDT | unspecified | results section. | | | | | laterality, | | | | | | unspecified part of | | | | | | lung | | + +--------+ + + + | CAPILLARY BLOOD | Routin | 02/17/2018 | Pneumonia due to | Results for this | | GLUCOSE (NO CHG), | e | 12:50 AM | infectious organism, | procedure are in the | | POC | | PDT | unspecified | results section. | | | | | laterality, | | | | | | unspecified part of | | | | | | lung | | + +--------+ + + + | CAPILLARY BLOOD | Routin | 02/16/2018 | Pneumonia due to | Results for this | | GLUCOSE (NO CHG), | e | 11:59 PM | infectious organism, | procedure are in the | | POC | | PDT | unspecified | results section. | | | | | laterality, | | | | | | unspecified part of | | | | | | lung | | + +--------+ + + + | CAPILLARY BLOOD | Routin | 02/16/2018 | Pneumonia due to | Results for this | | GLUCOSE (NO CHG), | e | 10:09 PM | infectious organism, | procedure are in the | | POC | | PDT | unspecified | results section. | | | | | laterality, | | | | | | unspecified part of | | | | | | lung | | + +--------+ + + + | CAPILLARY BLOOD | Routin | 02/16/2018 | Pneumonia due to | Results for this | | GLUCOSE (NO CHG), | e | 7:48 PM | infectious organism, | procedure are in the | | POC | | PDT | unspecified | results section. | | | | | laterality, | | | | | | unspecified part of | | | | | | lung | | + +--------+ + + + | CAPILLARY BLOOD | Routin | 02/16/2018 | Pneumonia due to | Results for this | | GLUCOSE (NO CHG), | e | 6:05 PM | infectious organism, | procedure are in the | | POC | | PDT | unspecified | results section. | | | | | laterality, | | | | | | unspecified part of | | | | | | lung | | + +--------+ + + + | CAPILLARY BLOOD | Routin | 02/16/2018 | Pneumonia due to | Results for this | | GLUCOSE (NO CHG), | e | 4:12 PM | infectious organism, | procedure are in the | | POC | | PDT | unspecified | results section. | | | | | laterality, | | | | | | unspecified part of | | | | | | lung | | + +--------+ + + + | CAPILLARY BLOOD | Routin | 02/16/2018 | Pneumonia due to | Results for this | | GLUCOSE (NO CHG), | e | 2:46 PM | infectious organism, | procedure are in the | | POC | | PDT | unspecified | results section. | | | | | laterality, | | | | | | unspecified part of | | | | | | lung | | + +--------+ + + + | CAPILLARY BLOOD | Routin | 02/16/2018 | Pneumonia due to | Results for this | | GLUCOSE (NO CHG), | e | 1:08 PM | infectious organism, | procedure are in the | | POC | | PDT | unspecified | results section. | | | | | laterality, | | | | | | unspecified part of | | | | | | lung | | + +--------+ + + + | CAPILLARY BLOOD | Routin | 02/16/2018 | Pneumonia due to | Results for this | | GLUCOSE (NO CHG), | e | 11:47 AM | infectious organism, | procedure are in the | | POC | | PDT | unspecified | results section. | | | | | laterality, | | | | | | unspecified part of | | | | | | lung | | + +--------+ + + + | CAPILLARY BLOOD | Routin | 02/16/2018 | Pneumonia due to | Results for this | | GLUCOSE (NO CHG), | e | 10:28 AM | infectious organism, | procedure are in the | | POC | | PDT | unspecified | results section. | | | | | laterality, | | | | | | unspecified part of | | | | | | lung | | + +--------+ + + + | CAPILLARY BLOOD | Routin | 02/16/2018 | Pneumonia due to | Results for this | | GLUCOSE (NO CHG), | e | 9:22 AM | infectious organism, | procedure are in the | | POC | | PDT | unspecified | results section. | | | | | laterality, | | | | | | unspecified part of | | | | | | lung | | + +--------+ + + + | CAPILLARY BLOOD | Routin | 02/16/2018 | Pneumonia due to | Results for this | | GLUCOSE (NO CHG), | e | 7:43 AM | infectious organism, | procedure are in the | | POC | | PDT | unspecified | results section. | | | | | laterality, | | | | | | unspecified part of | | | | | | lung | | + +--------+ + + + | CAPILLARY BLOOD | Routin | 02/16/2018 | Pneumonia due to | Results for this | | GLUCOSE (NO CHG), | e | 6:36 AM | infectious organism, | procedure are in the | | POC | | PDT | unspecified | results section. | | | | | laterality, | | | | | | unspecified part of | | | | | | lung | | + +--------+ + + + | CAPILLARY BLOOD | Routin | 02/16/2018 | Pneumonia due to | Results for this | | GLUCOSE (NO CHG), | e | 5:33 AM | infectious organism, | procedure are in the | | POC | | PDT | unspecified | results section. | | | | | laterality, | | | | | | unspecified part of | | | | | | lung | | + +--------+ + + + | CAPILLARY BLOOD | Routin | 02/16/2018 | Pneumonia due to | Results for this | | GLUCOSE (NO CHG), | e | 4:29 AM | infectious organism, | procedure are in the | | POC | | PDT | unspecified | results section. | | | | | laterality, | | | | | | unspecified part of | | | | | | lung | | + +--------+ + + + | CAPILLARY BLOOD | Routin | 02/16/2018 | Pneumonia due to | Results for this | | GLUCOSE (NO CHG), | e | 3:25 AM | infectious organism, | procedure are in the | | POC | | PDT | unspecified | results section. | | | | | laterality, | | | | | | unspecified part of | | | | | | lung | | + +--------+ + + + | CAPILLARY BLOOD | Routin | 02/16/2018 | Pneumonia due to | Results for this | | GLUCOSE (NO CHG), | e | 2:08 AM | infectious organism, | procedure are in the | | POC | | PDT | unspecified | results section. | | | | | laterality, | | | | | | unspecified part of | | | | | | lung | | + +--------+ + + + | CBC AND AUTO DIFF | Urgent | 02/16/2018 | | Results for this | | | | 1:20 AM | | procedure are in the | | | | PDT | | results section. | + +--------+ + + + | CBC, WITH | Urgent | 02/16/2018 | | Results for this | | DIFFERENTIAL | | 1:20 AM | | procedure are in the | | | | PDT | | results section. | + +--------+ + + + | RENAL FUNCTION SET | Urgent | 02/16/2018 | | Results for this | | (NA,K,CL,CO2,BUN,CRE | | 1:20 AM | | procedure are in the | | AT,GLUC,CA,PHOS,ALB | | PDT | | results section. | | ) | | | | | + +--------+ + + + | MAGNESIUM, PLASMA | Urgent | 02/16/2018 | | Results for this | | | | 1:20 AM | | procedure are in the | | | | PDT | | results section. | + +--------+ + + + | CAPILLARY BLOOD | Routin | 02/16/2018 | Pneumonia due to | Results for this | | GLUCOSE (NO CHG), | e | 12:59 AM | infectious organism, | procedure are in the | | POC | | PDT | unspecified | results section. | | | | | laterality, | | | | | | unspecified part of | | | | | | lung | | + +--------+ + + + | CAPILLARY BLOOD | Routin | 02/15/2018 | Pneumonia due to | Results for this | | GLUCOSE (NO CHG), | e | 11:46 PM | infectious organism, | procedure are in the | | POC | | PDT | unspecified | results section. | | | | | laterality, | | | | | | unspecified part of | | | | | | lung | | + +--------+ + + + | CAPILLARY BLOOD | Routin | 02/15/2018 | Pneumonia due to | Results for this | | GLUCOSE (NO CHG), | e | 10:40 PM | infectious organism, | procedure are in the | | POC | | PDT | unspecified | results section. | | | | | laterality, | | | | | | unspecified part of | | | | | | lung | | + +--------+ + + + | CAPILLARY BLOOD | Routin | 02/15/2018 | Pneumonia due to | Results for this | | GLUCOSE (NO CHG), | e | 9:37 PM | infectious organism, | procedure are in the | | POC | | PDT | unspecified | results section. | | | | | laterality, | | | | | | unspecified part of | | | | | | lung | | + +--------+ + + + | CAPILLARY BLOOD | Routin | 02/15/2018 | Pneumonia due to | Results for this | | GLUCOSE (NO CHG), | e | 8:35 PM | infectious organism, | procedure are in the | | POC | | PDT | unspecified | results section. | | | | | laterality, | | | | | | unspecified part of | | | | | | lung | | + +--------+ + + + | CAPILLARY BLOOD | Routin | 02/15/2018 | Pneumonia due to | Results for this | | GLUCOSE (NO CHG), | e | 7:25 PM | infectious organism, | procedure are in the | | POC | | PDT | unspecified | results section. | | | | | laterality, | | | | | | unspecified part of | | | | | | lung | | + +--------+ + + + | CAPILLARY BLOOD | Routin | 02/15/2018 | Pneumonia due to | Results for this | | GLUCOSE (NO CHG), | e | 6:48 PM | infectious organism, | procedure are in the | | POC | | PDT | unspecified | results section. | | | | | laterality, | | | | | | unspecified part of | | | | | | lung | | + +--------+ + + + | CAPILLARY BLOOD | Routin | 02/15/2018 | Pneumonia due to | Results for this | | GLUCOSE (NO CHG), | e | 5:32 PM | infectious organism, | procedure are in the | | POC | | PDT | unspecified | results section. | | | | | laterality, | | | | | | unspecified part of | | | | | | lung | | + +--------+ + + + | CAPILLARY BLOOD | Routin | 02/15/2018 | Pneumonia due to | Results for this | | GLUCOSE (NO CHG), | e | 3:39 PM | infectious organism, | procedure are in the | | POC | | PDT | unspecified | results section. | | | | | laterality, | | | | | | unspecified part of | | | | | | lung | | + +--------+ + + + | BASIC METABOLIC SET | Urgent | 02/15/2018 | | Results for this | | (NA, K, CL, TCO2, | | 1:19 PM | | procedure are in the | | BUN, CR, GLU, CA) | | PDT | | results section. | + +--------+ + + + | MAGNESIUM, PLASMA | Urgent | 02/15/2018 | | Results for this | | | | 1:19 PM | | procedure are in the | | | | PDT | | results section. | + +--------+ + + + | CAPILLARY BLOOD | Routin | 02/15/2018 | Pneumonia due to | Results for this | | GLUCOSE (NO CHG), | e | 12:28 PM | infectious organism, | procedure are in the | | POC | | PDT | unspecified | results section. | | | | | laterality, | | | | | | unspecified part of | | | | | | lung | | + +--------+ + + + | CAPILLARY BLOOD | Routin | 02/15/2018 | Pneumonia due to | Results for this | | GLUCOSE (NO CHG), | e | 11:05 AM | infectious organism, | procedure are in the | | POC | | PDT | unspecified | results section. | | | | | laterality, | | | | | | unspecified part of | | | | | | lung | | + +--------+ + + + | TRIGLYCERIDES, | Urgent | 02/15/2018 | | Results for this | | PLASMA | | 10:21 AM | | procedure are in the | | | | PDT | | results section. | + +--------+ + + + | BLOOD GASES, VENOUS | Urgent | 02/15/2018 | | Results for this | | - LAB | | 9:58 AM | | procedure are in the | | | | PDT | | results section. | + +--------+ + + + | CAPILLARY BLOOD | Routin | 02/15/2018 | Pneumonia due to | Results for this | | GLUCOSE (NO CHG), | e | 8:25 AM | infectious organism, | procedure are in the | | POC | | PDT | unspecified | results section. | | | | | laterality, | | | | | | unspecified part of | | | | | | lung | | + +--------+ + + + | X-RAY PORTABLE CHEST | Routin | 02/15/2018 | | Results for this | | 1 VIEW | e | 7:15 AM | | procedure are in the | | | | PDT | | results section. | + +--------+ + + + | CAPILLARY BLOOD | Routin | 02/15/2018 | Pneumonia due to | Results for this | | GLUCOSE (NO CHG), | e | 5:51 AM | infectious organism, | procedure are in the | | POC | | PDT | unspecified | results section. | | | | | laterality, | | | | | | unspecified part of | | | | | | lung | | + +--------+ + + + | CAPILLARY BLOOD | Routin | 02/15/2018 | Pneumonia due to | Results for this | | GLUCOSE (NO CHG), | e | 4:42 AM | infectious organism, | procedure are in the | | POC | | PDT | unspecified | results section. | | | | | laterality, | | | | | | unspecified part of | | | | | | lung | | + +--------+ + + + | RENAL FUNCTION SET | Urgent | 02/15/2018 | | Results for this | | (NA,K,CL,CO2,BUN,CRE | | 4:01 AM | | procedure are in the | | AT,GLUC,CA,PHOS,ALB | | PDT | | results section. | | ) | | | | | + +--------+ + + + | MAGNESIUM, PLASMA | Urgent | 02/15/2018 | | Results for this | | | | 4:01 AM | | procedure are in the | | | | PDT | | results section. | + +--------+ + + + | CBC AND AUTO DIFF | Urgent | 02/15/2018 | | Results for this | | | | 4:00 AM | | procedure are in the | | | | PDT | | results section. | + +--------+ + + + | CBC, WITH | Urgent | 02/15/2018 | | Results for this | | DIFFERENTIAL | | 4:00 AM | | procedure are in the | | | | PDT | | results section. | + +--------+ + + + | CAPILLARY BLOOD | Routin | 02/15/2018 | Pneumonia due to | Results for this | | GLUCOSE (NO CHG), | e | 3:37 AM | infectious organism, | procedure are in the | | POC | | PDT | unspecified | results section. | | | | | laterality, | | | | | | unspecified part of | | | | | | lung | | + +--------+ + + + | CAPILLARY BLOOD | Routin | 02/15/2018 | Pneumonia due to | Results for this | | GLUCOSE (NO CHG), | e | 2:34 AM | infectious organism, | procedure are in the | | POC | | PDT | unspecified | results section. | | | | | laterality, | | | | | | unspecified part of | | | | | | lung | | + +--------+ + + + | CAPILLARY BLOOD | Routin | 02/15/2018 | Pneumonia due to | Results for this | | GLUCOSE (NO CHG), | e | 1:29 AM | infectious organism, | procedure are in the | | POC | | PDT | unspecified | results section. | | | | | laterality, | | | | | | unspecified part of | | | | | | lung | | + +--------+ + + + | CAPILLARY BLOOD | Routin | 02/15/2018 | Pneumonia due to | Results for this | | GLUCOSE (NO CHG), | e | 12:23 AM | infectious organism, | procedure are in the | | POC | | PDT | unspecified | results section. | | | | | laterality, | | | | | | unspecified part of | | | | | | lung | | + +--------+ + + + | CAPILLARY BLOOD | Routin | 02/14/2018 | Pneumonia due to | Results for this | | GLUCOSE (NO CHG), | e | 11:17 PM | infectious organism, | procedure are in the | | POC | | PDT | unspecified | results section. | | | | | laterality, | | | | | | unspecified part of | | | | | | lung | | + +--------+ + + + | CAPILLARY BLOOD | Routin | 02/14/2018 | Pneumonia due to | Results for this | | GLUCOSE (NO CHG), | e | 9:08 PM | infectious organism, | procedure are in the | | POC | | PDT | unspecified | results section. | | | | | laterality, | | | | | | unspecified part of | | | | | | lung | | + +--------+ + + + | CAPILLARY BLOOD | Routin | 02/14/2018 | Pneumonia due to | Results for this | | GLUCOSE (NO CHG), | e | 8:07 PM | infectious organism, | procedure are in the | | POC | | PDT | unspecified | results section. | | | | | laterality, | | | | | | unspecified part of | | | | | | lung | | + +--------+ + + + | CAPILLARY BLOOD | Routin | 02/14/2018 | Pneumonia due to | Results for this | | GLUCOSE (NO CHG), | e | 7:03 PM | infectious organism, | procedure are in the | | POC | | PDT | unspecified | results section. | | | | | laterality, | | | | | | unspecified part of | | | | | | lung | | + +--------+ + + + | 12 LEAD ECG | Routin | 02/14/2018 | | Results for this | | | e | 6:58 PM | | procedure are in the | | | | PDT | | results section. | + +--------+ + + + | BASIC METABOLIC SET | Urgent | 02/14/2018 | | Results for this | | (NA, K, CL, TCO2, | | 6:29 PM | | procedure are in the | | BUN, CR, GLU, CA) | | PDT | | results section. | + +--------+ + + + | MAGNESIUM, PLASMA | Urgent | 02/14/2018 | | Results for this | | | | 6:29 PM | | procedure are in the | | | | PDT | | results section. | + +--------+ + + + | CAPILLARY BLOOD | Routin | 02/14/2018 | Pneumonia due to | Results for this | | GLUCOSE (NO CHG), | e | 5:53 PM | infectious organism, | procedure are in the | | POC | | PDT | unspecified | results section. | | | | | laterality, | | | | | | unspecified part of | | | | | | lung | | + +--------+ + + + | CAPILLARY BLOOD | Routin | 02/14/2018 | Pneumonia due to | Results for this | | GLUCOSE (NO CHG), | e | 4:47 PM | infectious organism, | procedure are in the | | POC | | PDT | unspecified | results section. | | | | | laterality, | | | | | | unspecified part of | | | | | | lung | | + +--------+ + + + | CAPILLARY BLOOD | Routin | 02/14/2018 | Pneumonia due to | Results for this | | GLUCOSE (NO CHG), | e | 3:50 PM | infectious organism, | procedure are in the | | POC | | PDT | unspecified | results section. | | | | | laterality, | | | | | | unspecified part of | | | | | | lung | | + +--------+ + + + | CAPILLARY BLOOD | Routin | 02/14/2018 | Pneumonia due to | Results for this | | GLUCOSE (NO CHG), | e | 2:46 PM | infectious organism, | procedure are in the | | POC | | PDT | unspecified | results section. | | | | | laterality, | | | | | | unspecified part of | | | | | | lung | | + +--------+ + + + | CAPILLARY BLOOD | Routin | 02/14/2018 | Pneumonia due to | Results for this | | GLUCOSE (NO CHG), | e | 1:38 PM | infectious organism, | procedure are in the | | POC | | PDT | unspecified | results section. | | | | | laterality, | | | | | | unspecified part of | | | | | | lung | | + +--------+ + + + | CAPILLARY BLOOD | Routin | 02/14/2018 | Pneumonia due to | Results for this | | GLUCOSE (NO CHG), | e | 1:05 PM | infectious organism, | procedure are in the | | POC | | PDT | unspecified | results section. | | | | | laterality, | | | | | | unspecified part of | | | | | | lung | | + +--------+ + + + | CAPILLARY BLOOD | Routin | 02/14/2018 | Pneumonia due to | Results for this | | GLUCOSE (NO CHG), | e | 12:00 PM | infectious organism, | procedure are in the | | POC | | PDT | unspecified | results section. | | | | | laterality, | | | | | | unspecified part of | | | | | | lung | | + +--------+ + + + | CULTURE, SPUTUM | Routin | 02/14/2018 | | Results for this | | | e | 11:47 AM | | procedure are in the | | | | PDT | | results section. | + +--------+ + + + | CAPILLARY BLOOD | Routin | 02/14/2018 | Pneumonia due to | Results for this | | GLUCOSE (NO CHG), | e | 10:55 AM | infectious organism, | procedure are in the | | POC | | PDT | unspecified | results section. | | | | | laterality, | | | | | | unspecified part of | | | | | | lung | | + +--------+ + + + | CAPILLARY BLOOD | Routin | 02/14/2018 | Pneumonia due to | Results for this | | GLUCOSE (NO CHG), | e | 9:50 AM | infectious organism, | procedure are in the | | POC | | PDT | unspecified | results section. | | | | | laterality, | | | | | | unspecified part of | | | | | | lung | | + +--------+ + + + | X-RAY PORTABLE CHEST | Routin | 02/14/2018 | | Results for this | | 1 VIEW | e | 9:36 AM | | procedure are in the | | | | PDT | | results section. | + +--------+ + + + | CULTURE, BLOOD BACTI | Urgent | 02/14/2018 | | Results for this | | & [facility] | | 9:17 AM | | procedure are in the | | | | PDT | | results section. | + +--------+ + + + | CULTURE, BLOOD BACTI | Urgent | 02/14/2018 | | Results for this | | & [facility] | | 9:17 AM | | procedure are in the | | | | PDT | | results section. | + +--------+ + + + | CULTURE, BLOOD BACTI | Urgent | 02/14/2018 | | Results for this | | & YEAST | | 9:17 AM | | procedure are in the | | | | PDT | | results section. | + +--------+ + + + | CULTURE, BLOOD BACTI | Urgent | 02/14/2018 | | Results for this | | & YEAST | | 9:17 AM | | procedure are in the | | | | PDT | | results section. | + +--------+ + + + | CAPILLARY BLOOD | Routin | 02/14/2018 | Pneumonia due to | Results for this | | GLUCOSE (NO CHG), | e | 8:47 AM | infectious organism, | procedure are in the | | POC | | PDT | unspecified | results section. | | | | | laterality, | | | | | | unspecified part of | | | | | | lung | | + +--------+ + + + | CAPILLARY BLOOD | Routin | 02/14/2018 | Pneumonia due to | Results for this | | GLUCOSE (NO CHG), | e | 7:36 AM | infectious organism, | procedure are in the | | POC | | PDT | unspecified | results section. | | | | | laterality, | | | | | | unspecified part of | | | | | | lung | | + +--------+ + + + | CAPILLARY BLOOD | Routin | 02/14/2018 | Pneumonia due to | Results for this | | GLUCOSE (NO CHG), | e | 6:32 AM | infectious organism, | procedure are in the | | POC | | PDT | unspecified | results section. | | | | | laterality, | | | | | | unspecified part of | | | | | | lung | | + +--------+ + + + | CAPILLARY BLOOD | Routin | 02/14/2018 | Pneumonia due to | Results for this | | GLUCOSE (NO CHG), | e | 5:04 AM | infectious organism, | procedure are in the | | POC | | PDT | unspecified | results section. | | | | | laterality, | | | | | | unspecified part of | | | | | | lung | | + +--------+ + + + | RENAL FUNCTION SET | Urgent | 02/14/2018 | | Results for this | | (NA,K,CL,CO2,BUN,CRE | | 4:57 AM | | procedure are in the | | AT,GLUC,CA,PHOS,ALB | | PDT | | results section. | | ) | | | | | + +--------+ + + + | BLOOD GASES, | Routin | 02/14/2018 | | Results for this | | ARTERIAL - LAB | e | 4:57 AM | | procedure are in the | | | | PDT | | results section. | + +--------+ + + + | MAGNESIUM, PLASMA | Urgent | 02/14/2018 | | Results for this | | | | 4:57 AM | | procedure are in the | | | | PDT | | results section. | + +--------+ + + + | CAPILLARY BLOOD | Routin | 02/14/2018 | Pneumonia due to | Results for this | | GLUCOSE (NO CHG), | e | 3:00 AM | infectious organism, | procedure are in the | | POC | | PDT | unspecified | results section. | | | | | laterality, | | | | | | unspecified part of | | | | | | lung | | + +--------+ + + + | CAPILLARY BLOOD | Routin | 02/14/2018 | Pneumonia due to | Results for this | | GLUCOSE (NO CHG), | e | 12:56 AM | infectious organism, | procedure are in the | | POC | | PDT | unspecified | results section. | | | | | laterality, | | | | | | unspecified part of | | | | | | lung | | + +--------+ + + + | CAPILLARY BLOOD | Routin | 02/13/2018 | Pneumonia due to | Results for this | | GLUCOSE (NO CHG), | e | 11:51 PM | infectious organism, | procedure are in the | | POC | | PDT | unspecified | results section. | | | | | laterality, | | | | | | unspecified part of | | | | | | lung | | + +--------+ + + + | CAPILLARY BLOOD | Routin | 02/13/2018 | Pneumonia due to | Results for this | | GLUCOSE (NO CHG), | e | 10:48 PM | infectious organism, | procedure are in the | | POC | | PDT | unspecified | results section. | | | | | laterality, | | | | | | unspecified part of | | | | | | lung | | + +--------+ + + + | CAPILLARY BLOOD | Routin | 02/13/2018 | Pneumonia due to | Results for this | | GLUCOSE (NO CHG), | e | 9:43 PM | infectious organism, | procedure are in the | | POC | | PDT | unspecified | results section. | | | | | laterality, | | | | | | unspecified part of | | | | | | lung | | + +--------+ + + + | BLOOD GASES, | Routin | 02/13/2018 | | Results for this | | ARTERIAL - LAB | e | 9:39 PM | | procedure are in the | | | | PDT | | results section. | + +--------+ + + + | CAPILLARY BLOOD | Routin | 02/13/2018 | Pneumonia due to | Results for this | | GLUCOSE (NO CHG), | e | 7:48 PM | infectious organism, | procedure are in the | | POC | | PDT | unspecified | results section. | | | | | laterality, | | | | | | unspecified part of | | | | | | lung | | + +--------+ + + + | CAPILLARY BLOOD | Routin | 02/13/2018 | Pneumonia due to | Results for this | | GLUCOSE (NO CHG), | e | 6:40 PM | infectious organism, | procedure are in the | | POC | | PDT | unspecified | results section. | | | | | laterality, | | | | | | unspecified part of | | | | | | lung | | + +--------+ + + + | CAPILLARY BLOOD | Routin | 02/13/2018 | Pneumonia due to | Results for this | | GLUCOSE (NO CHG), | e | 5:41 PM | infectious organism, | procedure are in the | | POC | | PDT | unspecified | results section. | | | | | laterality, | | | | | | unspecified part of | | | | | | lung | | + +--------+ + + + | CAPILLARY BLOOD | Routin | 02/13/2018 | Pneumonia due to | Results for this | | GLUCOSE (NO CHG), | e | 4:32 PM | infectious organism, | procedure are in the | | POC | | PDT | unspecified | results section. | | | | | laterality, | | | | | | unspecified part of | | | | | | lung | | + +--------+ + + + | CAPILLARY BLOOD | Routin | 02/13/2018 | Pneumonia due to | Results for this | | GLUCOSE (NO CHG), | e | 3:30 PM | infectious organism, | procedure are in the | | POC | | PDT | unspecified | results section. | | | | | laterality, | | | | | | unspecified part of | | | | | | lung | | + +--------+ + + + | CAPILLARY BLOOD | Routin | 02/13/2018 | Pneumonia due to | Results for this | | GLUCOSE (NO CHG), | e | 2:24 PM | infectious organism, | procedure are in the | | POC | | PDT | unspecified | results section. | | | | | laterality, | | | | | | unspecified part of | | | | | | lung | | + +--------+ + + + | CAPILLARY BLOOD | Routin | 02/13/2018 | Pneumonia due to | Results for this | | GLUCOSE (NO CHG), | e | 1:14 PM | infectious organism, | procedure are in the | | POC | | PDT | unspecified | results section. | | | | | laterality, | | | | | | unspecified part of | | | | | | lung | | + +--------+ + + + | CAPILLARY BLOOD | Routin | 02/13/2018 | Pneumonia due to | Results for this | | GLUCOSE (NO CHG), | e | 12:16 PM | infectious organism, | procedure are in the | | POC | | PDT | unspecified | results section. | | | | | laterality, | | | | | | unspecified part of | | | | | | lung | | + +--------+ + + + | BLOOD GASES, | Routin | 02/13/2018 | | Results for this | | ARTERIAL - LAB | e | 11:05 AM | | procedure are in the | | | | PDT | | results section. | + +--------+ + + + | CAPILLARY BLOOD | Routin | 02/13/2018 | Pneumonia due to | Results for this | | GLUCOSE (NO CHG), | e | 11:04 AM | infectious organism, | procedure are in the | | POC | | PDT | unspecified | results section. | | | | | laterality, | | | | | | unspecified part of | | | | | | lung | | + +--------+ + + + | X-RAY CHEST 1 VIEW | Urgent | 02/13/2018 | | Results for this | | | | 10:11 AM | | procedure are in the | | | | PDT | | results section. | + +--------+ + + + | CAPILLARY BLOOD | Routin | 02/13/2018 | Pneumonia due to | Results for this | | GLUCOSE (NO CHG), | e | 10:06 AM | infectious organism, | procedure are in the | | POC | | PDT | unspecified | results section. | | | | | laterality, | | | | | | unspecified part of | | | | | | lung | | + +--------+ + + + | CAPILLARY BLOOD | Routin | 02/13/2018 | Pneumonia due to | Results for this | | GLUCOSE (NO CHG), | e | 9:04 AM | infectious organism, | procedure are in the | | POC | | PDT | unspecified | results section. | | | | | laterality, | | | | | | unspecified part of | | | | | | lung | | + +--------+ + + + | CAPILLARY BLOOD | Routin | 02/13/2018 | Pneumonia due to | Results for this | | GLUCOSE (NO CHG), | e | 7:46 AM | infectious organism, | procedure are in the | | POC | | PDT | unspecified | results section. | | | | | laterality, | | | | | | unspecified part of | | | | | | lung | | + +--------+ + + + | CAPILLARY BLOOD | Routin | 02/13/2018 | Pneumonia due to | Results for this | | GLUCOSE (NO CHG), | e | 6:41 AM | infectious organism, | procedure are in the | | POC | | PDT | unspecified | results section. | | | | | laterality, | | | | | | unspecified part of | | | | | | lung | | + +--------+ + + + | CAPILLARY BLOOD | Routin | 02/13/2018 | Pneumonia due to | Results for this | | GLUCOSE (NO CHG), | e | 5:29 AM | infectious organism, | procedure are in the | | POC | | PDT | unspecified | results section. | | | | | laterality, | | | | | | unspecified part of | | | | | | lung | | + +--------+ + + + | BLOOD GASES, | Routin | 02/13/2018 | | Results for this | | ARTERIAL - LAB | e | 5:29 AM | | procedure are in the | | | | PDT | | results section. | + +--------+ + + + | CAPILLARY BLOOD | Routin | 02/13/2018 | Pneumonia due to | Results for this | | GLUCOSE (NO CHG), | e | 4:10 AM | infectious organism, | procedure are in the | | POC | | PDT | unspecified | results section. | | | | | laterality, | | | | | | unspecified part of | | | | | | lung | | + +--------+ + + + | CAPILLARY BLOOD | Routin | 02/13/2018 | Pneumonia due to | Results for this | | GLUCOSE (NO CHG), | e | 3:06 AM | infectious organism, | procedure are in the | | POC | | PDT | unspecified | results section. | | | | | laterality, | | | | | | unspecified part of | | | | | | lung | | + +--------+ + + + | CAPILLARY BLOOD | Routin | 02/13/2018 | Pneumonia due to | Results for this | | GLUCOSE (NO CHG), | e | 1:59 AM | infectious organism, | procedure are in the | | POC | | PDT | unspecified | results section. | | | | | laterality, | | | | | | unspecified part of | | | | | | lung | | + +--------+ + + + | CBC (HEMOGRAM) ONLY | Urgent | 02/13/2018 | | Results for this | | | | 1:34 AM | | procedure are in the | | | | PDT | | results section. | + +--------+ + + + | RENAL FUNCTION SET | Urgent | 02/13/2018 | | Results for this | | (NA,K,CL,CO2,BUN,CRE | | 1:34 AM | | procedure are in the | | AT,GLUC,CA,PHOS,ALB | | PDT | | results section. | | ) | | | | | + +--------+ + + + | CBC ONLY | Urgent | 02/13/2018 | | Results for this | | | | 1:34 AM | | procedure are in the | | | | PDT | | results section. | + +--------+ + + + | BLOOD GASES, | Routin | 02/13/2018 | | Results for this | | ARTERIAL - LAB | e | 1:34 AM | | procedure are in the | | | | PDT | | results section. | + +--------+ + + + | MAGNESIUM, PLASMA | Urgent | 02/13/2018 | | Results for this | | | | 1:34 AM | | procedure are in the | | | | PDT | | results section. | + +--------+ + + + | TRIGLYCERIDES, | Urgent | 02/13/2018 | | Results for this | | PLASMA | | 1:34 AM | | procedure are in the | | | | PDT | | results section. | + +--------+ + + + | CAPILLARY BLOOD | Routin | 02/13/2018 | Pneumonia due to | Results for this | | GLUCOSE (NO CHG), | e | 12:55 AM | infectious organism, | procedure are in the | | POC | | PDT | unspecified | results section. | | | | | laterality, | | | | | | unspecified part of | | | | | | lung | | + +--------+ + + + | CAPILLARY BLOOD | Routin | 02/12/2018 | Pneumonia due to | Results for this | | GLUCOSE (NO CHG), | e | 11:41 PM | infectious organism, | procedure are in the | | POC | | PDT | unspecified | results section. | | | | | laterality, | | | | | | unspecified part of | | | | | | lung | | + +--------+ + + + | CAPILLARY BLOOD | Routin | 02/12/2018 | Pneumonia due to | Results for this | | GLUCOSE (NO CHG), | e | 10:37 PM | infectious organism, | procedure are in the | | POC | | PDT | unspecified | results section. | | | | | laterality, | | | | | | unspecified part of | | | | | | lung | | + +--------+ + + + | CAPILLARY BLOOD | Routin | 02/12/2018 | Pneumonia due to | Results for this | | GLUCOSE (NO CHG), | e | 9:22 PM | infectious organism, | procedure are in the | | POC | | PDT | unspecified | results section. | | | | | laterality, | | | | | | unspecified part of | | | | | | lung | | + +--------+ + + + | CAPILLARY BLOOD | Routin | 02/12/2018 | Pneumonia due to | Results for this | | GLUCOSE (NO CHG), | e | 8:18 PM | infectious organism, | procedure are in the | | POC | | PDT | unspecified | results section. | | | | | laterality, | | | | | | unspecified part of | | | | | | lung | | + +--------+ + + + | BASIC METABOLIC SET | Urgent | 02/12/2018 | | Results for this | | (NA, K, CL, TCO2, | | 8:05 PM | | procedure are in the | | BUN, CR, GLU, CA) | | PDT | | results section. | + +--------+ + + + | MAGNESIUM, PLASMA | Urgent | 02/12/2018 | | Results for this | | | | 8:05 PM | | procedure are in the | | | | PDT | | results section. | + +--------+ + + + | CAPILLARY BLOOD | Routin | 02/12/2018 | Pneumonia due to | Results for this | | GLUCOSE (NO CHG), | e | 7:12 PM | infectious organism, | procedure are in the | | POC | | PDT | unspecified | results section. | | | | | laterality, | | | | | | unspecified part of | | | | | | lung | | + +--------+ + + + | BLOOD GASES, | Routin | 02/12/2018 | | Results for this | | ARTERIAL - LAB | e | 7:11 PM | | procedure are in the | | | | PDT | | results section. | + +--------+ + + + | CAPILLARY BLOOD | Routin | 02/12/2018 | Pneumonia due to | Results for this | | GLUCOSE (NO CHG), | e | 6:03 PM | infectious organism, | procedure are in the | | POC | | PDT | unspecified | results section. | | | | | laterality, | | | | | | unspecified part of | | | | | | lung | | + +--------+ + + + | CAPILLARY BLOOD | Routin | 02/12/2018 | Pneumonia due to | Results for this | | GLUCOSE (NO CHG), | e | 4:32 PM | infectious organism, | procedure are in the | | POC | | PDT | unspecified | results section. | | | | | laterality, | | | | | | unspecified part of | | | | | | lung | | + +--------+ + + + | CAPILLARY BLOOD | Routin | 02/12/2018 | Pneumonia due to | Results for this | | GLUCOSE (NO CHG), | e | 3:14 PM | infectious organism, | procedure are in the | | POC | | PDT | unspecified | results section. | | | | | laterality, | | | | | | unspecified part of | | | | | | lung | | + +--------+ + + + | CAPILLARY BLOOD | Routin | 02/12/2018 | Pneumonia due to | Results for this | | GLUCOSE (NO CHG), | e | 1:40 PM | infectious organism, | procedure are in the | | POC | | PDT | unspecified | results section. | | | | | laterality, | | | | | | unspecified part of | | | | | | lung | | + +--------+ + + + | CAPILLARY BLOOD | Routin | 02/12/2018 | Pneumonia due to | Results for this | | GLUCOSE (NO CHG), | e | 12:25 PM | infectious organism, | procedure are in the | | POC | | PDT | unspecified | results section. | | | | | laterality, | | | | | | unspecified part of | | | | | | lung | | + +--------+ + + + | BLOOD GASES, | Routin | 02/12/2018 | | Results for this | | ARTERIAL - LAB | e | 10:24 AM | | procedure are in the | | | | PDT | | results section. | + +--------+ + + + | CAPILLARY BLOOD | Routin | 02/12/2018 | Pneumonia due to | Results for this | | GLUCOSE (NO CHG), | e | 10:20 AM | infectious organism, | procedure are in the | | POC | | PDT | unspecified | results section. | | | | | laterality, | | | | | | unspecified part of | | | | | | lung | | + +--------+ + + + | X-RAY ABD LTD | Urgent | 02/12/2018 | | Results for this | | FEEDING TUBE EVAL | | 9:17 AM | | procedure are in the | | | | PDT | | results section. | + +--------+ + + + | X-RAY PORTABLE CHEST | Urgent | 02/12/2018 | | Results for this | | 1 VIEW | | 9:17 AM | | procedure are in the | | | | PDT | | results section. | + +--------+ + + + | BASIC METABOLIC SET | Urgent | 02/12/2018 | | Results for this | | (NA, K, CL, TCO2, | | 8:26 AM | | procedure are in the | | BUN, CR, GLU, CA) | | PDT | | results section. | + +--------+ + + + | CAPILLARY BLOOD | Routin | 02/12/2018 | Pneumonia due to | Results for this | | GLUCOSE (NO CHG), | e | 8:05 AM | infectious organism, | procedure are in the | | POC | | PDT | unspecified | results section. | | | | | laterality, | | | | | | unspecified part of | | | | | | lung | | + +--------+ + + + | BLOOD GASES, | Routin | 02/12/2018 | | Results for this | | ARTERIAL - LAB | e | 6:31 AM | | procedure are in the | | | | PDT | | results section. | + +--------+ + + + | CAPILLARY BLOOD | Routin | 02/12/2018 | Pneumonia due to | Results for this | | GLUCOSE (NO CHG), | e | 6:12 AM | infectious organism, | procedure are in the | | POC | | PDT | unspecified | results section. | | | | | laterality, | | | | | | unspecified part of | | | | | | lung | | + +--------+ + + + | ART LINE | Routin | 02/12/2018 | | Results for this | | | e | 6:09 AM | | procedure are in the | | | | PDT | | results section. | + +--------+ + + + | CAPILLARY BLOOD | Routin | 02/12/2018 | Pneumonia due to | Results for this | | GLUCOSE (NO CHG), | e | 5:10 AM | infectious organism, | procedure are in the | | POC | | PDT | unspecified | results section. | | | | | laterality, | | | | | | unspecified part of | | | | | | lung | | + +--------+ + + + | BLOOD GASES, | Routin | 02/12/2018 | | Results for this | | ARTERIAL - LAB | e | 5:03 AM | | procedure are in the | | | | PDT | | results section. | + +--------+ + + + | CAPILLARY BLOOD | Routin | 02/12/2018 | Pneumonia due to | Results for this | | GLUCOSE (NO CHG), | e | 4:19 AM | infectious organism, | procedure are in the | | POC | | PDT | unspecified | results section. | | | | | laterality, | | | | | | unspecified part of | | | | | | lung | | + +--------+ + + + | CAPILLARY BLOOD | Routin | 02/12/2018 | Pneumonia due to | Results for this | | GLUCOSE (NO CHG), | e | 3:07 AM | infectious organism, | procedure are in the | | POC | | PDT | unspecified | results section. | | | | | laterality, | | | | | | unspecified part of | | | | | | lung | | + +--------+ + + + | CBC AND AUTO DIFF | Urgent | 02/12/2018 | | Results for this | | | | 3:05 AM | | procedure are in the | | | | PDT | | results section. | + +--------+ + + + | CBC, WITH | Urgent | 02/12/2018 | | Results for this | | DIFFERENTIAL | | 3:05 AM | | procedure are in the | | | | PDT | | results section. | + +--------+ + + + | VANCOMYCIN, TROUGH | Routin | 02/12/2018 | | Results for this | | | e | 3:05 AM | | procedure are in the | | | | PDT | | results section. | + +--------+ + + + | RENAL FUNCTION SET | Urgent | 02/12/2018 | | Results for this | | (NA,K,CL,CO2,BUN,CRE | | 3:05 AM | | procedure are in the | | AT,GLUC,CA,PHOS,ALB | | PDT | | results section. | | ) | | | | | + +--------+ + + + | MAGNESIUM, PLASMA | Urgent | 02/12/2018 | | Results for this | | | | 3:05 AM | | procedure are in the | | | | PDT | | results section. | + +--------+ + + + | CAPILLARY BLOOD | Routin | 02/12/2018 | Pneumonia due to | Results for this | | GLUCOSE (NO CHG), | e | 2:15 AM | infectious organism, | procedure are in the | | POC | | PDT | unspecified | results section. | | | | | laterality, | | | | | | unspecified part of | | | | | | lung | | + +--------+ + + + | CAPILLARY BLOOD | Routin | 02/12/2018 | Pneumonia due to | Results for this | | GLUCOSE (NO CHG), | e | 1:12 AM | infectious organism, | procedure are in the | | POC | | PDT | unspecified | results section. | | | | | laterality, | | | | | | unspecified part of | | | | | | lung | | + +--------+ + + + | BLOOD GASES, | Routin | 02/12/2018 | | Results for this | | ARTERIAL - LAB | e | 1:08 AM | | procedure are in the | | | | PDT | | results section. | + +--------+ + + + | CAPILLARY BLOOD | Routin | 02/12/2018 | Pneumonia due to | Results for this | | GLUCOSE (NO CHG), | e | 12:07 AM | infectious organism, | procedure are in the | | POC | | PDT | unspecified | results section. | | | | | laterality, | | | | | | unspecified part of | | | | | | lung | | + +--------+ + + + | 12 LEAD ECG | Routin | 02/11/2018 | | Results for this | | | e | 11:40 PM | | procedure are in the | | | | PDT | | results section. | + +--------+ + + + | CAPILLARY BLOOD | Routin | 02/11/2018 | Pneumonia due to | Results for this | | GLUCOSE (NO CHG), | e | 11:03 PM | infectious organism, | procedure are in the | | POC | | PDT | unspecified | results section. | | | | | laterality, | | | | | | unspecified part of | | | | | | lung | | + +--------+ + + + | CAPILLARY BLOOD | Routin | 02/11/2018 | Pneumonia due to | Results for this | | GLUCOSE (NO CHG), | e | 9:58 PM | infectious organism, | procedure are in the | | POC | | PDT | unspecified | results section. | | | | | laterality, | | | | | | unspecified part of | | | | | | lung | | + +--------+ + + + | BLOOD GASES, | Routin | 02/11/2018 | | Results for this | | ARTERIAL - LAB | e | 9:20 PM | | procedure are in the | | | | PDT | | results section. | + +--------+ + + + | CAPILLARY BLOOD | Routin | 02/11/2018 | Pneumonia due to | Results for this | | GLUCOSE (NO CHG), | e | 8:47 PM | infectious organism, | procedure are in the | | POC | | PDT | unspecified | results section. | | | | | laterality, | | | | | | unspecified part of | | | | | | lung | | + +--------+ + + + | CAPILLARY BLOOD | Routin | 02/11/2018 | Pneumonia due to | Results for this | | GLUCOSE (NO CHG), | e | 7:47 PM | infectious organism, | procedure are in the | | POC | | PDT | unspecified | results section. | | | | | laterality, | | | | | | unspecified part of | | | | | | lung | | + +--------+ + + + | CAPILLARY BLOOD | Routin | 02/11/2018 | Pneumonia due to | Results for this | | GLUCOSE (NO CHG), | e | 6:44 PM | infectious organism, | procedure are in the | | POC | | PDT | unspecified | results section. | | | | | laterality, | | | | | | unspecified part of | | | | | | lung | | + +--------+ + + + | CAPILLARY BLOOD | Routin | 02/11/2018 | Pneumonia due to | Results for this | | GLUCOSE (NO CHG), | e | 1:35 PM | infectious organism, | procedure are in the | | POC | | PDT | unspecified | results section. | | | | | laterality, | | | | | | unspecified part of | | | | | | lung | | + +--------+ + + + | CULTURE, R/O | Routin | 02/11/2018 | | Results for this | | MSSA/MRSA | e | 11:32 AM | | procedure are in the | | | | PDT | | results section. | + +--------+ + + + | BLOOD GASES, | Routin | 02/11/2018 | | Results for this | | ARTERIAL - LAB | e | 11:32 AM | | procedure are in the | | | | PDT | | results section. | + +--------+ + + + | TRANSTHORACIC | Routin | 02/11/2018 | | Results for this | | ECHOCARDIOGRAM, | e | 8:54 AM | | procedure are in the | | ADULT | | PDT | | results section. | + +--------+ + + + | LAB HOLD - URINE | Routin | 02/11/2018 | | | | | e | 1:00 AM | | | | | | PDT | | | + +--------+ + + + | 12 LEAD ECG | Routin | 02/11/2018 | | Results for this | | | e | 12:51 AM | | procedure are in the | | | | PDT | | results section. | + +--------+ + + + | X-RAY PORTABLE CHEST | Routin | 02/11/2018 | | Results for this | | 1 VIEW | e | 12:42 AM | | procedure are in the | | | | PDT | | results section. | + +--------+ + + + | STREP PNEUMONIAE AG, | Routin | 02/11/2018 | | Results for this | | URINE | e | 12:41 AM | | procedure are in the | | | | PDT | | results section. | + +--------+ + + + | LEGIONELLA AG, URINE | Routin | 02/11/2018 | | Results for this | | | e | 12:41 AM | | procedure are in the | | | | PDT | | results section. | + +--------+ + + + | CULTURE, BLOOD BACTI | Urgent | 02/11/2018 | | Results for this | | & YEAST [facility] | | 12:40 AM | | procedure are in the | | | | PDT | | results section. | + +--------+ + + + | CULTURE, BLOOD BACTI | Urgent | 02/11/2018 | | Results for this | | & YEAST [facility] | | 12:40 AM | | procedure are in the | | | | PDT | | results section. | + +--------+ + + + | RESPIRATORY PATHOGEN | Routin | 02/11/2018 | | Results for this | | PANEL PCR | e | 12:40 AM | | procedure are in the | | | | PDT | | results section. | + +--------+ + + + | CULTURE, SPUTUM | Routin | 02/11/2018 | | Results for this | | | e | 12:40 AM | | procedure are in the | | | | PDT | | results section. | + +--------+ + + + | CULTURE, BLOOD BACTI | Urgent | 02/11/2018 | | Results for this | | & YEAST | | 12:40 AM | | procedure are in the | | | | PDT | | results section. | + +--------+ + + + | CULTURE, BLOOD BACTI | Urgent | 02/11/2018 | | Results for this | | & YEAST | | 12:40 AM | | procedure are in the | | | | PDT | | results section. | + +--------+ + + + | LACTATE | Urgent | 02/11/2018 | | Results for this | | | | 12:40 AM | | procedure are in the | | | | PDT | | results section. | + +--------+ + + + | BLOOD GASES, | Routin | 02/11/2018 | | Results for this | | ARTERIAL - LAB | e | 12:40 AM | | procedure are in the | | | | PDT | | results section. | + +--------+ + + + | NT-PRO BNP | Urgent | 02/11/2018 | | Results for this | | | | 12:36 AM | | procedure are in the | | | | PDT | | results section. | + +--------+ + + + | CBC AND AUTO DIFF | Urgent | 02/11/2018 | | Results for this | | | | 12:36 AM | | procedure are in the | | | | PDT | | results section. | + +--------+ + + + | CBC, WITH | Urgent | 02/11/2018 | | Results for this | | DIFFERENTIAL | | 12:36 AM | | procedure are in the | | | | PDT | | results section. | + +--------+ + + + | TROPONIN I, PLASMA | Urgent | 02/11/2018 | | Results for this | | | | 12:36 AM | | procedure are in the | | | | PDT | | results section. | + +--------+ + + + | COMPLETE METABOLIC | Urgent | 02/11/2018 | | Results for this | | SET | | 12:36 AM | | procedure are in the | | (NA,K,CL,CO2,BUN,CRE | | PDT | | results section. | | AT,GLUC,CA,AST,ALT,B | | | | | | GRAZYNA TOTAL,ALK | | | | | | PHOS,ALB,PROT TOTAL) | | | | | + +--------+ + + + | PHOSPHORUS, PLASMA | Urgent | 02/11/2018 | | Results for this | | | | 12:36 AM | | procedure are in the | | | | PDT | | results section. | + +--------+ + + + | MAGNESIUM, PLASMA | Urgent | 02/11/2018 | | Results for this | | | | 12:36 AM | | procedure are in the | | | | PDT | | results section. | + +--------+ + + + | CAPILLARY BLOOD | Routin | 02/11/2018 | Pneumonia due to | Results for this | | GLUCOSE (NO CHG), | e | 12:22 AM | infectious organism, | procedure are in the | | POC | | PDT | unspecified | results section. | | | | | laterality, | | | | | | unspecified part of | | | | | | lung | | + +--------+ + + + documented in this encounter Results IP IMMUNIZE - TUBERCULIN PPD 5 UNIT/0.1 ML-BACK OFFICE (03/15/2018 9:30 AM PDT) + +-------+ + + + | Component | Value | Ref Range | Performed | Pathologist | | | | | At | Signature | + +-------+ + + + | PPD | 0 | mm | | | | INDURATION | | | | | + +-------+ + + + | PPD REDNESS | 0 | mm | | | + +-------+ + + + CAPILLARY BLOOD GLUCOSE (NO CHG), POC (03/15/2018 8:53 AM PDT) + +---------+ + + + | Component | Value | Ref Range | Performed | Pathologist | | | | | At | Signature | + +---------+ + + + | BLOOD | 199 (H) | 70 - 99 mg/dL | [facility] | | | GLUCOSE, | | | [facility] | | | POC | | | [facility] | | | | | | OF CARE | | | | | | TESTS | | + +---------+ + + + + + | Specimen | + + | | + + + + + + + | Performing | Address | City/State/Zipcode | Phone Number | | Organization | | | | + + + + + | [facility] | [address] | [place], [place] | | | [place] | [address] | [address] | | | TESTS | | | | + + + + + CBC AND AUTO DIFF (03/15/2018 6:34 AM PDT) + + + + + + | Component | Value | Ref Range | Performed | Pathologist | | | | | At | Signature | + + + + + + | WHITE CELL | 9.06 | 3.50 - 10.80 | [facility] | | | COUNT | | K/cu mm | LABORATORY | | | | | | SERVICES, | | | | | | CORE | | + + + + + + | RED CELL | 4.37 | 4.00 - 5.20 | [facility] | | | COUNT | | M/cu mm | LABORATORY | | | | | | SERVICES, | | | | | | CORE | | + + + + + + | HEMOGLOBIN | 12.2 | 12.0 - 16.0 | [facility] | | | | | g/dL | LABORATORY | | | | | | SERVICES, | | | | | | CORE | | + + + + + + | HEMATOCRIT | 37.0 | 36.0 - 46.0 % | [facility] | | | | | | LABORATORY | | | | | | SERVICES, | | | | | | CORE | | + + + + + + | MCV | 84.7 | 80.0 - 96.0 fL | [facility] | | | | | | LABORATORY | | | | | | SERVICES, | | | | | | CORE | | + + + + + + | MCHC | 33.0 | 33.0 - 35.5 | [facility] | | | | | g/dL | LABORATORY | | | | | | SERVICES, | | | | | | CORE | | + + + + + + | RDW SD | 45.1 | 35.1 - 46.3 fL | [facility] | | | | | | LABORATORY | | | | | | SERVICES, | | | | | | CORE | | + + + + + + | PLATELET | 238 | 150 - 400 K/cu | [facility] | | | COUNT | | mm | LABORATORY | | | | | | SERVICES, | | | | | | CORE | | + + + + + + | MPV | 10.3 | 9.7 - 12.3 fL | [facility] | | | | | | LABORATORY | | | | | | SERVICES, | | | | | | CORE | | + + + + + + | NRBC% | 0.3 | 0.0 - 0.3 % | [facility] | | | | | | LABORATORY | | | | | | SERVICES, | | | | | | CORE | | + + + + + + | NRBC# | 0.03 (H) | 0.00 - 0.02 | [facility] | | | | | K/cu mm | LABORATORY | | | | | | SERVICES, | | | | | | CORE | | + + + + + + | NEUTROPHIL | 60.0 | 50.0 - 70.0 % | [facility] | | | % | | | LABORATORY | | | | | | SERVICES, | | | | | | CORE | | + + + + + + | LYMPHOCYTE | 26.3 | 18.0 - 42.0 % | [facility] | | | % | | | LABORATORY | | | | | | SERVICES, | | | | | | CORE | | + + + + + + | MONOCYTE % | 11.4 (H) | 3.5 - 9.0 % | [facility] | | | | | | LABORATORY | | | | | | SERVICES, | | | | | | CORE | | + + + + + + | EOS % | 1.3 | 1.0 - 3.0 % | [facility] | | | | | | LABORATORY | | | | | | SERVICES, | | | | | | CORE | | + + + + + + | BASO % | 0.6 | 0.0 - 2.0 % | [facility] | | | | | | LABORATORY | | | | | | SERVICES, | | | | | | CORE | | + + + + + + | IG% | 0.4Comment: Increased | 0.0 - 1.0 % | [facility] | | | | immature granulocytes | | LABORATORY | | | | (IG) define a left | | SERVICES, | | | | shift. Immature | | CORE | | | | granulocytes (IG) are an | | | | | | automated count of | | | | | | metamyelocytes, | | | | | | myelocytes and | | | | | | promyelocytes. Bands | | | | | | are not included in the | | | | | | IG count. Bands are | | | | | | included in the | | | | | | neutrophil count. | | | | + + + + + + | NEUTROPHIL | 5.44 | 1.80 - 7.70 | [facility] | | | # | | K/cu mm | LABORATORY | | | | | | SERVICES, | | | | | | CORE | | + + + + + + | LYMPHOCYTE | 2.38 | 1.00 - 4.80 | [facility] | | | # | | K/cu mm | LABORATORY | | | | | | SERVICES, | | | | | | CORE | | + + + + + + | MONOCYTE # | 1.03 (H) | 0.10 - 0.90 | [facility] | | | | | K/cu mm | LABORATORY | | | | | | SERVICES, | | | | | | CORE | | + + + + + + | EOS # | 0.12 | 0.00 - 0.50 | [facility] | | | | | K/cu mm | LABORATORY | | | | | | SERVICES, | | | | | | CORE | | + + + + + + | BASO # | 0.05 | 0.00 - 0.10 | [facility] | | | | | K/cu mm | LABORATORY | | | | | | SERVICES, | | | | | | CORE | | + + + + + + | IG# | 0.04 | 0.00 - 0.10 | [facility] | | | | | K/cu mm | LABORATORY | | | | | | SERVICES, | | | | | | CORE | | + + + + + + + + | Specimen | + + | Blood | + + + + + | Narrative | Performed At | + + + | New reference ranges for IG% and IG# effective 12/02/2017. | [facility] | | Increased immature granulocytes (IG) define a left shift. Immature | LABORATORY | | granulocytes (IG) are an automated count of metamyelocytes, myelocytes | SERVICES, CORE | | and promyelocytes. Bands are not included in the IG count. Bands are | | | included in the neutrophil count. | | + + + + + + + + | Performing | Address | City/State/Zipcode | Phone Number | | Organization | | | | + + + + + | [facility] | [address] | [place] [address] | | | SERVICES, CORE | [address] | | | + + + + + RENAL FUNCTION SET (NA,K,CL,CO2,BUN,CREAT,GLUC,CA,PHOS,ALB ) (03/15/2018 6:34 AM PDT) + +---------+ + + + | Component | Value | Ref Range | Performed | Pathologist | | | | | At | Signature | + +---------+ + + + | GLUCOSE, | 154 (H) | 70 - 99 mg/dL | [facility] | | | PLASMA | | | LABORATORY | | | (LAB) | | | SERVICES, | | | | | | CORE | | + +---------+ + + + | BUN, PLASMA | 39 (H) | 6 - 20 mg/dL | [facility] | | | (LAB) | | | LABORATORY | | | | | | SERVICES, | | | | | | CORE | | + +---------+ + + + | CREATININE | 1.00 | 0.60 - 1.10 | [facility] | | | PLASMA | | mg/dL | LABORATORY | | | (LAB) | | | SERVICES, | | | | | | CORE | | + +---------+ + + + | EGFR | >60 | >60 mL/min | [facility] | | | - | | | LABORATORY | | | [place] | | | SERVICES, | | | | | | CORE | | + +---------+ + + + | EGFR NON | 56 (L) | >60 mL/min | [facility] | | | -[facility] | | | LABORATORY | | | [facility] | | | SERVICES, | | | | | | CORE | | + +---------+ + + + | SODIUM, | 139 | 136 - 145 | [facility] | | | PLASMA | | mmol/L | LABORATORY | | | (LAB) | | | SERVICES, | | | | | | CORE | | + +---------+ + + + | POTASSIUM, | 4.6 | 3.4 - 5.0 | [facility] | | | PLASMA | | mmol/L | LABORATORY | | | (LAB) | | | SERVICES, | | | | | | CORE | | + +---------+ + + + | CHLORIDE, | 107 | 97 - 108 mmol/L | [facility] | | | PLASMA | | | LABORATORY | | | (LAB) | | | SERVICES, | | | | | | CORE | | + +---------+ + + + | TOTAL CO2, | 26 | 21 - 32 mmol/L | [facility] | | | PLASMA | | | LABORATORY | | | (LAB) | | | SERVICES, | | | | | | CORE | | + +---------+ + + + | CALCIUM, | 8.9 | 8.6 - 10.2 | [facility] | | | PLASMA | | mg/dL | LABORATORY | | | (LAB) | | | SERVICES, | | | | | | CORE | | + +---------+ + + + | CALCIUM(ALB | 9.9 | 8.6 - 10.2 | [facility] | | | CORRECTED) | | mg/dL | LABORATORY | | | | | | SERVICES, | | | | | | CORE | | + +---------+ + + + | ALBUMIN, | 2.7 (L) | 3.5 - 4.7 g/dL | [facility] | | | PLASMA | | | LABORATORY | | | (LAB) | | | SERVICES, | | | | | | CORE | | + +---------+ + + + | PHOSPHORUS, | 3.5 | 2.4 - 4.7 mg/dL | [facility] | | | PLASMA | | | LABORATORY | | | (LAB) | | | SERVICES, | | | | | | CORE | | + +---------+ + + + | POTASSIUM | No Hemo | | [facility] | | | CMNT | | | LABORATORY | | | | | | SERVICES, | | | | | | CORE | | + +---------+ + + + | ANION GAP | 6 | 4 - 11 mmol/L | [facility] | | | | | | LABORATORY | | | | | | SERVICES, | | | | | | CORE | | + +---------+ + + + | ANION | 9 | 4 - 11 mmol/L | [facility] | | | GAP(ALB | | | LABORATORY | | | CORRECTED) | | | SERVICES, | | | | | | CORE | | + +---------+ + + + + + | Specimen | + + | Blood | + + + + + | Narrative | Performed At | + + + | GFR is estimated using the MDRD equation recommended by the | [facility] | | National Kidney Disease Education Program. Estimated GFR | LABORATORY | | Interpretive Information: <60 mL/min/1.73 sq | [facility], CORE | | m Chronic Kidney Disease <15 mL/min/1.73 | | | sq m Kidney Failure Estimated GFR greater | | | that 60 mL/min/1.73 sq m is of limited clinical value. The MDRD | | | equation is not valid in the following situations: - Patients under | | | 18 years of age - Severe malnutrition or obesity - Vegetarian diet | | | - Rapidly changing kidney function - Amputees, paraplegics, or other | | | muscle-wasting diseses | | + + + + + + + + | Performing | Address | City/State/Zipcode | Phone Number | | Organization | | | | + + + + + | [facility] | [address] | [place] [address] | | | [place] | [address] | | | + + + + + CAPILLARY BLOOD GLUCOSE (NO CHG), POC (03/14/2018 8:13 PM PDT) + +---------+ + + + | Component | Value | Ref Range | Performed | Pathologist | | | | | At | Signature | + +---------+ + + + | BLOOD | 160 (H) | 70 - 99 mg/dL | [facility] | | | GLUCOSE, | | | [facility] | | | POC | | | [facility] | | | | | | [facility] | | | | | | TESTS | | + +---------+ + + + + + | Specimen | + + | | + + + + + + + | Performing | Address | City/State/Zipcode | Phone Number | | Organization | | | | + + + + + | [facility] | [address] | [place], [place] | | | [facility] | [address] | [phone] | | | TESTS | | | | + + + + + CAPILLARY BLOOD GLUCOSE (NO CHG), POC (03/14/2018 5:50 PM PDT) + +---------+ + + + | Component | Value | Ref Range | Performed | Pathologist | | | | | At | Signature | + +---------+ + + + | BLOOD | 100 (H) | 70 - 99 mg/dL | [facility] - | | | GLUCOSE, | | | [facility] | | | POC | | | [facility] | | | | | | [facility] | | | | | | TESTS | | + +---------+ + + + + + | Specimen | + + | | + + + + + + + | Performing | Address | City/State/Zipcode | Phone Number | | Organization | | | | + + + + + | [facility] | [address] | [place], [place] | | | [facility] | [address] | [phone] | | | TESTS | | | | + + + + + CAPILLARY BLOOD GLUCOSE (NO CHG), POC (03/14/2018 12:37 PM PDT) + +---------+ + + + | Component | Value | Ref Range | Performed | Pathologist | | | | | At | Signature | + +---------+ + + + | BLOOD | 189 (H) | 70 - 99 mg/dL | [facility] - | | | GLUCOSE, | | | [facility] | | | POC | | | [facility] | | | | | | [facility] | | | | | | TESTS | | + +---------+ + + + + + | Specimen | + + | | + + + + + + + | Performing | Address | City/State/Zipcode | Phone Number | | Organization | | | | + + + + + | [facility] | [address] | [place], [place] | | | [facility] | [address] | [phone] | | | TESTS | | | | + + + + + CAPILLARY BLOOD GLUCOSE (NO CHG), POC (03/14/2018 8:57 AM PDT) + +---------+ + + + | Component | Value | Ref Range | Performed | Pathologist | | | | | At | Signature | + +---------+ + + + | BLOOD | 236 (H) | 70 - 99 mg/dL | [facility] | | | GLUCOSE, | | | [facility] | | | POC | | | [facility] | | | | | | OF CARE | | | | | | TESTS | | + +---------+ + + + + + | Specimen | + + | | + + + + + + + | Performing | Address | City/State/Zipcode | Phone Number | | Organization | | | | + + + + + | [facility] | [address] | [place], [place] | | | [facility] | [address] | [address] | | | TESTS | | | | + + + + + RENAL FUNCTION SET (NA,K,CL,CO2,BUN,CREAT,GLUC,CA,PHOS,ALB ) (03/14/2018 5:32 AM PDT) + +---------+ + + + | Component | Value | Ref Range | Performed | Pathologist | | | | | At | Signature | + +---------+ + + + | GLUCOSE, | 216 (H) | 70 - 99 mg/dL | [facility] | | | PLASMA | | | LABORATORY | | | (LAB) | | | SERVICES, | | | | | | CORE | | + +---------+ + + + | BUN, PLASMA | 41 (H) | 6 - 20 mg/dL | [facility] | | | (LAB) | | | LABORATORY | | | | | | SERVICES, | | | | | | CORE | | + +---------+ + + + | CREATININE | 1.00 | 0.60 - 1.10 | [facility] | | | PLASMA | | mg/dL | LABORATORY | | | (LAB) | | | SERVICES, | | | | | | CORE | | + +---------+ + + + | EGFR | >60 | >60 mL/min | [facility] | | | - | | | LABORATORY | | | [place] [facility] | | | SERVICES, | | | | | | CORE | | + +---------+ + + + | EGFR NON | 56 (L) | >60 mL/min | [facility] | | | -[facility] | | | LABORATORY | | | [facility] | | | SERVICES, | | | | | | CORE | | + +---------+ + + + | SODIUM, | 136 | 136 - 145 | [facility] | | | PLASMA | | mmol/L | LABORATORY | | | (LAB) | | | SERVICES, | | | | | | CORE | | + +---------+ + + + | POTASSIUM, | 4.3 | 3.4 - 5.0 | [facility] | | | PLASMA | | mmol/L | LABORATORY | | | (LAB) | | | SERVICES, | | | | | | CORE | | + +---------+ + + + | CHLORIDE, | 104 | 97 - 108 mmol/L | [facility] | | | PLASMA | | | LABORATORY | | | (LAB) | | | SERVICES, | | | | | | CORE | | + +---------+ + + + | TOTAL CO2, | 28 | 21 - 32 mmol/L | [facility] | | | PLASMA | | | LABORATORY | | | (LAB) | | | SERVICES, | | | | | | CORE | | + +---------+ + + + | CALCIUM, | 8.5 (L) | 8.6 - 10.2 | [facility] | | | PLASMA | | mg/dL | LABORATORY | | | (LAB) | | | SERVICES, | | | | | | CORE | | + +---------+ + + + | CALCIUM(ALB | 9.6 | 8.6 - 10.2 | [facility] | | | CORRECTED) | | mg/dL | LABORATORY | | | | | | SERVICES, | | | | | | CORE | | + +---------+ + + + | ALBUMIN, | 2.6 (L) | 3.5 - 4.7 g/dL | [facility] | | | PLASMA | | | LABORATORY | | | (LAB) | | | SERVICES, | | | | | | CORE | | + +---------+ + + + | PHOSPHORUS, | 3.4 | 2.4 - 4.7 mg/dL | [facility] | | | PLASMA | | | LABORATORY | | | (LAB) | | | SERVICES, | | | | | | CORE | | + +---------+ + + + | POTASSIUM | No Hemo | | [facility] | | | CMNT | | | LABORATORY | | | | | | SERVICES, | | | | | | CORE | | + +---------+ + + + | ANION GAP | 4 | 4 - 11 mmol/L | [facility] | | | | | | LABORATORY | | | | | | SERVICES, | | | | | | CORE | | + +---------+ + + + | ANION | 7 | 4 - 11 mmol/L | [facility] | | | GAP(ALB | | | LABORATORY | | | CORRECTED) | | | SERVICES, | | | | | | CORE | | + +---------+ + + + + + | Specimen | + + | Blood | + + + + + | Narrative | Performed At | + + + | GFR is estimated using the MDRD equation recommended by the | [facility] | | National Kidney Disease Education Program. Estimated GFR | LABORATORY | | Interpretive Information: <60 mL/min/1.73 sq | SERVICES, CORE | | m Chronic Kidney Disease <15 mL/min/1.73 | | | sq m Kidney Failure Estimated GFR greater | | | that 60 mL/min/1.73 sq m is of limited clinical value. The MDRD | | | equation is not valid in the following situations: - Patients under | | | 18 years of age - Severe malnutrition or obesity - Vegetarian diet | | | - Rapidly changing kidney function - Amputees, paraplegics, or other | | | muscle-wasting diseses | | + + + + + + + + | Performing | Address | City/State/Zipcode | Phone Number | | Organization | | | | + + + + + | [facility] | [address] [facility] | [place] [address] | | | SERVICES, CORE | [address] | | | + + + + + CAPILLARY BLOOD GLUCOSE (NO CHG), POC (03/13/2018 11:53 PM PDT) + +---------+ + + + | Component | Value | Ref Range | Performed | Pathologist | | | | | At | Signature | + +---------+ + + + | BLOOD | 218 (H) | 70 - 99 mg/dL | [facility] | | | GLUCOSE, | | | [facility] | | | POC | | | [facility] | | | | | | OF CARE | | | | | | TESTS | | + +---------+ + + + + + | Specimen | + + | | + + + + + + + | Performing | Address | City/State/Zipcode | Phone Number | | Organization | | | | + + + + + | [facility] | [address] | [place], [place] | | | [facility] | [address] | [phone] | | | TESTS | | | | + + + + + CAPILLARY BLOOD GLUCOSE (NO CHG), POC (03/13/2018 5:58 PM PDT) + +---------+ + + + | Component | Value | Ref Range | Performed | Pathologist | | | | | At | Signature | + +---------+ + + + | BLOOD | 187 (H) | 70 - 99 mg/dL | [facility] | | | GLUCOSE, | | | [facility] | | | POC | | | [facility] | | | | | | OF CARE | | | | | | TESTS | | + +---------+ + + + + + | Specimen | + + | | + + + + + + + | Performing | Address | City/State/Zipcode | Phone Number | | Organization | | | | + + + + + | [facility] | [address] | [place], [place] | | | [facility] | [address] | [phone] | | | TESTS | | | | + + + + + CAPILLARY BLOOD GLUCOSE (NO CHG), POC (03/13/2018 1:41 PM PDT) + +---------+ + + + | Component | Value | Ref Range | Performed | Pathologist | | | | | At | Signature | + +---------+ + + + | BLOOD | 160 (H) | 70 - 99 mg/dL | [facility] | | | GLUCOSE, | | | [facility] | | | POC | | | [facility] | | | | | | OF CARE | | | | | | TESTS | | + +---------+ + + + + + | Specimen | + + | | + + + + + + + | Performing | Address | City/State/Zipcode | Phone Number | | Organization | | | | + + + + + | [facility] | [address] | [place], [place] | | | [facility] | [address] | [phone] | | | TESTS | | | | + + + + + CAPILLARY BLOOD GLUCOSE (NO CHG), POC (03/13/2018 8:26 AM PDT) + +---------+ + + + | Component | Value | Ref Range | Performed | Pathologist | | | | | At | Signature | + +---------+ + + + | BLOOD | 106 (H) | 70 - 99 mg/dL | [facility] | | | GLUCOSE, | | | [facility] | | | POC | | | [facility] | | | | | | OF CARE | | | | | | TESTS | | + +---------+ + + + + + | Specimen | + + | | + + + + + + + | Performing | Address | City/State/Zipcode | Phone Number | | Organization | | | | + + + + + | [facility] | [address] | [place], [place] | | | [facility] | [address] | [phone] | | | TESTS | | | | + + + + + RENAL FUNCTION SET (NA,K,CL,CO2,BUN,CREAT,GLUC,CA,PHOS,ALB ) (03/13/2018 6:22 AM PDT) + +---------+ + + + | Component | Value | Ref Range | Performed | Pathologist | | | | | At | Signature | + +---------+ + + + | GLUCOSE, | 129 (H) | 70 - 99 mg/dL | [facility] | | | PLASMA | | | LABORATORY | | | (LAB) | | | SERVICES, | | | | | | CORE | | + +---------+ + + + | BUN, PLASMA | 46 (H) | 6 - 20 mg/dL | [facility] | | | (LAB) | | | LABORATORY | | | | | | SERVICES, | | | | | | CORE | | + +---------+ + + + | CREATININE | 0.80 | 0.60 - 1.10 | [facility] | | | PLASMA | | mg/dL | LABORATORY | | | (LAB) | | | SERVICES, | | | | | | CORE | | + +---------+ + + + | EGFR | >60 | >60 mL/min | [facility] | | | - | | | LABORATORY | | | [place] [facility] | | | SERVICES, | | | | | | CORE | | + +---------+ + + + | EGFR NON | >60 | >60 mL/min | [facility] | | | -[facility] | | | LABORATORY | | | [facility] | | | SERVICES, | | | | | | CORE | | + +---------+ + + + | SODIUM, | 136 | 136 - 145 | [facility] | | | PLASMA | | mmol/L | LABORATORY | | | (LAB) | | | SERVICES, | | | | | | CORE | | + +---------+ + + + | POTASSIUM, | 4.4 | 3.4 - 5.0 | [facility] | | | PLASMA | | mmol/L | LABORATORY | | | (LAB) | | | SERVICES, | | | | | | CORE | | + +---------+ + + + | CHLORIDE, | 104 | 97 - 108 mmol/L | [facility] | | | PLASMA | | | LABORATORY | | | (LAB) | | | SERVICES, | | | | | | CORE | | + +---------+ + + + | TOTAL CO2, | 26 | 21 - 32 mmol/L | [facility] | | | PLASMA | | | LABORATORY | | | (LAB) | | | SERVICES, | | | | | | CORE | | + +---------+ + + + | CALCIUM, | 8.7 | 8.6 - 10.2 | [facility] | | | PLASMA | | mg/dL | LABORATORY | | | (LAB) | | | SERVICES, | | | | | | CORE | | + +---------+ + + + | CALCIUM(ALB | 9.8 | 8.6 - 10.2 | [facility] | | | CORRECTED) | | mg/dL | LABORATORY | | | | | | SERVICES, | | | | | | CORE | | + +---------+ + + + | ALBUMIN, | 2.6 (L) | 3.5 - 4.7 g/dL | [facility] | | | PLASMA | | | LABORATORY | | | (LAB) | | | SERVICES, | | | | | | CORE | | + +---------+ + + + | PHOSPHORUS, | 3.6 | 2.4 - 4.7 mg/dL | [facility] | | | PLASMA | | | LABORATORY | | | (LAB) | | | SERVICES, | | | | | | CORE | | + +---------+ + + + | POTASSIUM | No Hemo | | [facility] | | | CMNT | | | LABORATORY | | | | | | SERVICES, | | | | | | CORE | | + +---------+ + + + | ANION GAP | 6 | 4 - 11 mmol/L | [facility] | | | | | | LABORATORY | | | | | | SERVICES, | | | | | | CORE | | + +---------+ + + + | ANION | 9 | 4 - 11 mmol/L | [facility] | | | GAP(ALB | | | LABORATORY | | | CORRECTED) | | | SERVICES, | | | | | | CORE | | + +---------+ + + + + + | Specimen | + + | Blood | + + + + + | Narrative | Performed At | + + + | GFR is estimated using the MDRD equation recommended by the | [facility] | | National Kidney Disease Education Program. Estimated GFR | LABORATORY | | Interpretive Information: <60 mL/min/1.73 sq | [facility] | | m Chronic Kidney Disease <15 mL/min/1.73 | | | sq m Kidney Failure Estimated GFR greater | | | that 60 mL/min/1.73 sq m is of limited clinical value. The MDRD | | | equation is not valid in the following situations: - Patients under | | | 18 years of age - Severe malnutrition or obesity - Vegetarian diet | | | - Rapidly changing kidney function - Amputees, paraplegics, or other | | | muscle-wasting diseses | | + + + + + + + + | Performing | Address | City/State/Zipcode | Phone Number | | Organization | | | | + + + + + | [facility] | [address] | [place] [address] | | | [place] | [address] | | | + + + + + CAPILLARY BLOOD GLUCOSE (NO CHG), POC (03/13/2018 4:13 AM PDT) + +---------+ + + + | Component | Value | Ref Range | Performed | Pathologist | | | | | At | Signature | + +---------+ + + + | BLOOD | 135 (H) | 70 - 99 mg/dL | [facility] - | | | GLUCOSE, | | | [facility] | | | POC | | | [facility] | | | | | | OF CARE | | | | | | TESTS | | + +---------+ + + + + + | Specimen | + + | | + + + + + + + | Performing | Address | City/State/Zipcode | Phone Number | | Organization | | | | + + + + + | [facility] | [address] | [place], [place] | | | [facility] | [facility] | [phone] | | | TESTS | | | | + + + + + CAPILLARY BLOOD GLUCOSE (NO CHG), POC (03/12/2018 10:14 PM PDT) + +---------+ + + + | Component | Value | Ref Range | Performed | Pathologist | | | | | At | Signature | + +---------+ + + + | BLOOD | 158 (H) | 70 - 99 mg/dL | [facility] | | | GLUCOSE, | | | [facility] | | | POC | | | [facility] | | | | | | OF CARE | | | | | | TESTS | | + +---------+ + + + + + | Specimen | + + | | + + + + + + + | Performing | Address | City/State/Zipcode | Phone Number | | Organization | | | | + + + + + | [facility] | [address] | [place], [place] | | | [facility] | [address] | [address] | | | TESTS | | | | + + + + + CAPILLARY BLOOD GLUCOSE (NO CHG), POC (03/12/2018 8:27 PM PDT) + +---------+ + + + | Component | Value | Ref Range | Performed | Pathologist | | | | | At | Signature | + +---------+ + + + | BLOOD | 170 (H) | 70 - 99 mg/dL | [facility] | | | GLUCOSE, | | | [facility] | | | POC | | | [facility] | | | | | | OF CARE | | | | | | TESTS | | + +---------+ + + + + + | Specimen | + + | | + + + + + + + | Performing | Address | City/State/Zipcode | Phone Number | | Organization | | | | + + + + + | [facility] | [address] | [place], [place] | | | [facility] | [facility] | [phone] | | | TESTS | | | | + + + + + CAPILLARY BLOOD GLUCOSE (NO CHG), POC (03/12/2018 6:39 PM PDT) + +---------+ + + + | Component | Value | Ref Range | Performed | Pathologist | | | | | At | Signature | + +---------+ + + + | BLOOD | 165 (H) | 70 - 99 mg/dL | [facility] | | | GLUCOSE, | | | [facility] | | | POC | | | [facility] | | | | | | OF CARE | | | | | | TESTS | | + +---------+ + + + + + | Specimen | + + | | + + + + + + + | Performing | Address | City/State/Zipcode | Phone Number | | Organization | | | | + + + + + | [facility] | [address] | [place], [place] | | | [facility] | [address] | [phone] | | | TESTS | | | | + + + + + CAPILLARY BLOOD GLUCOSE (NO CHG), POC (03/12/2018 4:42 PM PDT) + +---------+ + + + | Component | Value | Ref Range | Performed | Pathologist | | | | | At | Signature | + +---------+ + + + | BLOOD | 165 (H) | 70 - 99 mg/dL | [facility] - | | | GLUCOSE, | | | [facility] | | | POC | | | [facility] | | | | | | OF CARE | | | | | | TESTS | | + +---------+ + + + + + | Specimen | + + | | + + + + + + + | Performing | Address | City/State/Zipcode | Phone Number | | Organization | | | | + + + + + | [facility] | [address] | [place], [place] | | | [facility] | [address] | [phone] | | | TESTS | | | | + + + + + CAPILLARY BLOOD GLUCOSE (NO CHG), POC (03/12/2018 1:51 PM PDT) + +---------+ + + + | Component | Value | Ref Range | Performed | Pathologist | | | | | At | Signature | + +---------+ + + + | BLOOD | 166 (H) | 70 - 99 mg/dL | [facility] | | | GLUCOSE, | | | [facility] | | | POC | | | [facility] | | | | | | OF CARE | | | | | | TESTS | | + +---------+ + + + + + | Specimen | + + | | + + + + + + + | Performing | Address | City/State/Zipcode | Phone Number | | Organization | | | | + + + + + | [facility] | 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 Evaluate for malignancy. | RADIOLOGY VOICE | | COMPARISON: 03/04/2018 CT PROCEDURE: Following interview by | RECOGNITION | | nuclear medicine personnel, the patient uneventfully received 11.17 | | | mCi of 18-F FDG via a right forearm intravenous injection. The blood | | | glucose level at the time of injection was 144. After 60 minutes | | | in quiet conditions, a low-dose, non-contrast CT scan was performed | | | from apex of the skull to the base of the neck, and from the skull | | | base to mid thigh for attenuation correction and anatomic | | | localization. Immediately following, and without moving the patient, | | | PET imaging was done over the same area. Axial, sagittal, and coronal | | | images were available for review. Motion artifact degrades this | | | exam. FINDINGS: HEAD AND NECK: Physiologic FDG uptake is | | | seen in the brain, salivary glands, oropharynx, and vocal cords. | | | There is no pathologically enlarged or hypermetabolic lymphadenopathy. | | | CHEST: There is a right middle lobe nodule measuring | | | approximately 8 mm. Additional 4 mm right lower lobe nodule is noted. | | | Both of these findings are too small to show meaningful uptake. No | | | suspicious lung nodules are seen. There is a right lobe thyroid nodule | | | measuring approximate 1 cm, with rim calcification. There is a | | | focus of uptake in just medial to the left scapula with SUV max 6.3, | | | without anatomic correlate of uncertain but doubtful significance. No | | | pathologically enlarged or hypermetabolic mediastinal, hilar, or | | | axillary lymphadenopathy. ABDOMEN AND PELVIS: There is diffusely | | | increased tracer uptake throughout the liver. Physiologic uptake in | | | the spleen and bowel with no suspicious focal lesions. There is a | | | nasogastric tube noted with the tip terminating in the proximal | | | stomach. The adrenal glands are mildly nodular. The uterus and ovaries | | | are surgically absent. Physiologic radiotracer clearance is seen in | | | the urinary system. No pathologically enlarged or hypermetabolic | | | lymphadenopathy. The abdominal aorta is normal in caliber. There is | | | a moderate atherosclerotic burden. MUSCULOSKELETAL: There is | | | diffusely increased bone marrow tracer uptake in the axial and | | | appendicular skeleton, including all vertebral bodies and pelvis, | | | multiple ribs, as well as bilateral proximal femurs. Chronic bilateral | | | L5 pars defects. Small periumbilical hernia is noted. No suspicious | | | osseous lesions. IMPRESSION: 1. Diffusely increased bone | | | marrow tracer uptake in the axial and appendicular skeleton, including | | | all vertebral bodies and pelvis, multiple ribs, as well as bilateral | | | proximal femurs. 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 2. Diffusely | | | increased tracer uptake throughout the liver, which may be seen in | | | overactivation of the reticuloendothelial system. 3. No discrete | | | evidence of malignancy. I have personally reviewed the images | | | and, if necessary, edited the report. I agree with the report as | | | now presented. 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 | | Evaluate for malignancy. COMPARISON: 03/04/2018 CT PROCEDURE: Following interview by | | nuclear medicine personnel, the patient uneventfully received 11.17 mCi of 18-F FDG via | | a right forearm intravenous injection. The blood glucose level at the time of injection | | was 144. After 60 minutes in quiet conditions, a low-dose, non-contrast CT scan was | | performed from apex of the skull to the base of the neck, and from the skull base to mid | | thigh for attenuation correction and anatomic localization. Immediately following, and | | without moving the patient, PET imaging was done over the same area. Axial, sagittal, | | and coronal images were available for review. Motion artifact degrades this | | exam.FINDINGS: HEAD AND NECK: Physiologic FDG uptake is seen in the brain, salivary | | glands, oropharynx, and vocal cords. There is no pathologically enlarged or | | hypermetabolic lymphadenopathy. CHEST: There is a right middle lobe nodule measuring | | approximately 8 mm. Additional 4 mm right lower lobe nodule is noted. Both of these | | findings are too small to show meaningful uptake. No suspicious lung nodules are seen. | | There is a right lobe thyroid nodule measuring approximate 1 cm, with rim calcification. | | There is a focus of uptake in just medial to the left scapula with SUV max 6.3, without | | anatomic correlate of uncertain but doubtful significance.No pathologically enlarged or | | hypermetabolic mediastinal, hilar, or axillary lymphadenopathy.ABDOMEN AND PELVIS: | | There is diffusely increased tracer uptake throughout the liver. Physiologic uptake in | | the spleen and bowel with no suspicious focal lesions. There is a nasogastric tube noted | | with the tip terminating in the proximal stomach. The adrenal glands are mildly | | nodular. The uterus and ovaries are surgically absent.Physiologic radiotracer clearance | | is seen in the urinary system. No pathologically enlarged or hypermetabolic | | lymphadenopathy. The abdominal aorta is normal in caliber. There is a moderate | | atherosclerotic burden. MUSCULOSKELETAL: There is diffusely increased bone marrow tracer | | uptake in the axial and appendicular skeleton, including all vertebral bodies and | | pelvis, multiple ribs, as well as bilateral proximal femurs. Chronic bilateral L5 pars | | defects. Small periumbilical hernia is noted. No suspicious osseous lesions. IMPRESSION: | | 1. Diffusely increased bone marrow tracer uptake in the axial and appendicular | | skeleton, including all vertebral bodies and pelvis, multiple ribs, as well as bilateral | | proximal femurs. 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 Diffusely increased tracer uptake throughout the liver, | | which may be seen in overactivation of the reticuloendothelial system.3. No discrete | | evidence of malignancy.I have personally reviewed the images and, if necessary, edited | | the report. I agree with the report as now presented. | |IMPRESSION: | | | |1. Diffusely increased bone marrow tracer uptake in the axial and appendicular skeleton, in cluding all vertebral bodies and pelvis, multiple ribs, as well as bilateral proximal femurs . 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 | | | |2. Diffusely increased tracer uptake throughout the liver, which may be seen in overactivat ion of the reticuloendothelial system. | | | |3. No discrete evidence of malignancy. | | | | | |I have personally reviewed the images and, if necessary, edited the report. I agree with t he report as now presented. | + + + +---------+ + + | Performing | Address | City/State/Zipcode | Phone Number | | Organization | | | | + +---------+ + + | [facility] | | | | | VOICE RECOGNITION | | | | + +---------+ + + CAPILLARY BLOOD GLUCOSE (NO CHG), POC (03/12/2018 11:04 AM PDT) + +---------+ + + + | Component | Value | Ref Range | Performed | Pathologist | | | | | At | Signature | + +---------+ + + + | BLOOD | 144 (H) | 70 - 99 mg/dL | [facility] - | | | GLUCOSE, | | | [facility] | | | POC | | | [facility] | | | | | | OF CARE | | | | | | TESTS | | + +---------+ + + + + + | Specimen | + + | | + + + + + + + | Performing | Address | City/State/Zipcode | Phone Number | | Organization | | | | + + + + + | [facility] | [address] | [place], [place] | | | [facility] | [address] | [phone] | | | TESTS | | | | + + + + + CBC AND AUTO DIFF (03/12/2018 6:21 AM PDT) + + + + + + | Component | Value | Ref Range | Performed | Pathologist | | | | | At | Signature | + + + + + + | WHITE CELL | 8.23 | 3.50 - 10.80 | [facility] | | | COUNT | | K/cu mm | LABORATORY | | | | | | SERVICES, | | | | | | CORE | | + + + + + + | RED CELL | 4.59 | 4.00 - 5.20 | [facility] | | | COUNT | | M/cu mm | LABORATORY | | | | | | SERVICES, | | | | | | CORE | | + + + + + + | HEMOGLOBIN | 12.8 | 12.0 - 16.0 | [facility] | | | | | g/dL | LABORATORY | | | | | | SERVICES, | | | | | | CORE | | + + + + + + | HEMATOCRIT | 38.8 | 36.0 - 46.0 % | [facility] | | | | | | LABORATORY | | | | | | SERVICES, | | | | | | CORE | | + + + + + + | MCV | 84.5 | 80.0 - 96.0 fL | [facility] | | | | | | LABORATORY | | | | | | SERVICES, | | | | | | CORE | | + + + + + + | MCHC | 33.0 | 33.0 - 35.5 | [facility] | | | | | g/dL | LABORATORY | | | | | | SERVICES, | | | | | | CORE | | + + + + + + | RDW SD | 43.8 | 35.1 - 46.3 fL | [facility] | | | | | | LABORATORY | | | | | | SERVICES, | | | | | | CORE | | + + + + + + | PLATELET | 213 | 150 - 400 K/cu | [facility] | | | COUNT | | mm | LABORATORY | | | | | | SERVICES, | | | | | | CORE | | + + + + + + | MPV | 10.0 | 9.7 - 12.3 fL | [facility] | | | | | | LABORATORY | | | | | | SERVICES, | | | | | | CORE | | + + + + + + | NRBC% | 0.0 | 0.0 - 0.3 % | [facility] | | | | | | LABORATORY | | | | | | SERVICES, | | | | | | CORE | | + + + + + + | NRBC# | 0.00 | 0.00 - 0.02 | [facility] | | | | | K/cu mm | LABORATORY | | | | | | SERVICES, | | | | | | CORE | | + + + + + + | NEUTROPHIL | 56.2 | 50.0 - 70.0 % | [facility] | | | % | | | LABORATORY | | | | | | SERVICES, | | | | | | CORE | | + + + + + + | LYMPHOCYTE | 30.4 | 18.0 - 42.0 % | [facility] | | | % | | | LABORATORY | | | | | | SERVICES, | | | | | | CORE | | + + + + + + | MONOCYTE % | 10.7 (H) | 3.5 - 9.0 % | [facility] | | | | | | LABORATORY | | | | | | SERVICES, | | | | | | CORE | | + + + + + + | EOS % | 2.1 | 1.0 - 3.0 % | [facility] | | | | | | LABORATORY | | | | | | SERVICES, | | | | | | CORE | | + + + + + + | BASO % | 0.2 | 0.0 - 2.0 % | [facility] | | | | | | LABORATORY | | | | | | SERVICES, | | | | | | CORE | | + + + + + + | IG% | 0.4Comment: Increased | 0.0 - 1.0 % | [facility] | | | | immature granulocytes | | LABORATORY | | | | (IG) define a left | | SERVICES, | | | | shift. Immature | | CORE | | | | granulocytes (IG) are an | | | | | | automated count of | | | | | | metamyelocytes, | | | | | | myelocytes and | | | | | | promyelocytes. Bands | | | | | | are not included in the | | | | | | IG count. Bands are | | | | | | included in the | | | | | | neutrophil count. | | | | + + + + + + | NEUTROPHIL | 4.63 | 1.80 - 7.70 | [facility] | | | # | | K/cu mm | LABORATORY | | | | | | SERVICES, | | | | | | CORE | | + + + + + + | LYMPHOCYTE | 2.50 | 1.00 - 4.80 | [facility] | | | # | | K/cu mm | LABORATORY | | | | | | SERVICES, | | | | | | CORE | | + + + + + + | MONOCYTE # | 0.88 | 0.10 - 0.90 | [facility] | | | | | K/cu mm | LABORATORY | | | | | | SERVICES, | | | | | | CORE | | + + + + + + | EOS # | 0.17 | 0.00 - 0.50 | [facility] | | | | | K/cu mm | LABORATORY | | | | | | SERVICES, | | | | | | CORE | | + + + + + + | BASO # | 0.02 | 0.00 - 0.10 | [facility] | | | | | K/cu mm | LABORATORY | | | | | | SERVICES, | | | | | | CORE | | + + + + + + | IG# | 0.03 | 0.00 - 0.10 | [facility] | | | | | K/cu mm | LABORATORY | | | | | | SERVICES, | | | | | | CORE | | + + + + + + + + | Specimen | + + | Blood | + + + + + | Narrative | Performed At | + + + | New reference ranges for IG% and IG# effective 12/02/2017. | [facility] | | Increased immature granulocytes (IG) define a left shift. Immature | LABORATORY | | granulocytes (IG) are an automated count of metamyelocytes, myelocytes | SERVICES, CORE | | and promyelocytes. Bands are not included in the IG count. Bands are | | | included in the neutrophil count. | | + + + + + + + + | Performing | Address | City/State/Zipcode | Phone Number | | Organization | | | | + + + + + | [facility] | [address] | [place] [address] | | | SERVICES, CORE | [address] | | | + + + + + RENAL FUNCTION SET (NA,K,CL,CO2,BUN,CREAT,GLUC,CA,PHOS,ALB ) (03/12/2018 6:21 AM PDT) + +---------+ + + + | Component | Value | Ref Range | Performed | Pathologist | | | | | At | Signature | + +---------+ + + + | GLUCOSE, | 160 (H) | 70 - 99 mg/dL | [facility] | | | PLASMA | | | LABORATORY | | | (LAB) | | | SERVICES, | | | | | | CORE | | + +---------+ + + + | BUN, PLASMA | 48 (H) | 6 - 20 mg/dL | [facility] | | | (LAB) | | | LABORATORY | | | | | | SERVICES, | | | | | | CORE | | + +---------+ + + + | CREATININE | 0.90 | 0.60 - 1.10 | [facility] | | | PLASMA | | mg/dL | LABORATORY | | | (LAB) | | | SERVICES, | | | | | | CORE | | + +---------+ + + + | EGFR | >60 | >60 mL/min | [facility] | | | - | | | LABORATORY | | | [place] | | | SERVICES, | | | | | | CORE | | + +---------+ + + + | EGFR NON | >60 | >60 mL/min | [facility] | | | -[facility] | | | LABORATORY | | | [facility] | | | SERVICES, | | | | | | CORE | | + +---------+ + + + | SODIUM, | 135 (L) | 136 - 145 | [facility] | | | PLASMA | | mmol/L | LABORATORY | | | (LAB) | | | SERVICES, | | | | | | CORE | | + +---------+ + + + | POTASSIUM, | 4.8 | 3.4 - 5.0 | [facility] | | | PLASMA | | mmol/L | LABORATORY | | | (LAB) | | | SERVICES, | | | | | | CORE | | + +---------+ + + + | CHLORIDE, | 103 | 97 - 108 mmol/L | [facility] | | | PLASMA | | | LABORATORY | | | (LAB) | | | SERVICES, | | | | | | CORE | | + +---------+ + + + | TOTAL CO2, | 30 | 21 - 32 mmol/L | [facility] | | | PLASMA | | | LABORATORY | | | (LAB) | | | SERVICES, | | | | | | CORE | | + +---------+ + + + | CALCIUM, | 8.7 | 8.6 - 10.2 | [facility] | | | PLASMA | | mg/dL | LABORATORY | | | (LAB) | | | SERVICES, | | | | | | CORE | | + +---------+ + + + | CALCIUM(ALB | 9.8 | 8.6 - 10.2 | [facility] | | | CORRECTED) | | mg/dL | LABORATORY | | | | | | SERVICES, | | | | | | CORE | | + +---------+ + + + | ALBUMIN, | 2.6 (L) | 3.5 - 4.7 g/dL | [facility] | | | PLASMA | | | LABORATORY | | | (LAB) | | | SERVICES, | | | | | | CORE | | + +---------+ + + + | PHOSPHORUS, | 3.3 | 2.4 - 4.7 mg/dL | [facility] | | | PLASMA | | | LABORATORY | | | (LAB) | | | SERVICES, | | | | | | CORE | | + +---------+ + + + | POTASSIUM | No Hemo | | [facility] | | | CMNT | | | LABORATORY | | | | | | SERVICES, | | | | | | CORE | | + +---------+ + + + | ANION GAP | 2 (L) | 4 - 11 mmol/L | [facility] | | | | | | LABORATORY | | | | | | SERVICES, | | | | | | CORE | | + +---------+ + + + | ANION | 5 | 4 - 11 mmol/L | [facility] | | | GAP(ALB | | | LABORATORY | | | CORRECTED) | | | SERVICES, | | | | | | CORE | | + +---------+ + + + + + | Specimen | + + | Blood | + + + + + | Narrative | Performed At | + + + | GFR is estimated using the MDRD equation recommended by the | [facility] | | National Kidney Disease Education Program. Estimated GFR | LABORATORY | | Interpretive Information: <60 mL/min/1.73 sq | SERVICES, CORE | | m Chronic Kidney Disease <15 mL/min/1.73 | | | sq m Kidney Failure Estimated GFR greater | | | that 60 mL/min/1.73 sq m is of limited clinical value. The MDRD | | | equation is not valid in the following situations: - Patients under | | | 18 years of age - Severe malnutrition or obesity - Vegetarian diet | | | - Rapidly changing kidney function - Amputees, paraplegics, or other | | | muscle-wasting diseses | | + + + + + + + + | Performing | Address | City/State/Zipcode | Phone Number | | Organization | | | | + + + + + | [facility] | [address] | [place] [address] | | | [facility] [place] | [address] | | | + + + + + CAPILLARY BLOOD GLUCOSE (NO CHG), POC (03/12/2018 3:52 AM PDT) + +---------+ + + + | Component | Value | Ref Range | Performed | Pathologist | | | | | At | Signature | + +---------+ + + + | BLOOD | 197 (H) | 70 - 99 mg/dL | [facility] - | | | GLUCOSE, | | | [facility] | | | POC | | | [facility] | | | | | | OF CARE | | | | | | TESTS | | + +---------+ + + + + + | Specimen | + + | | + + + + + + + | Performing | Address | City/State/Zipcode | Phone Number | | Organization | | | | + + + + + | [facility] | [address] | [place], [place] | | | [facility] | [address] | [address] | | | TESTS | | | | + + + + + CAPILLARY BLOOD GLUCOSE (NO CHG), POC (03/11/2018 9:55 PM PDT) + +---------+ + + + | Component | Value | Ref Range | Performed | Pathologist | | | | | At | Signature | + +---------+ + + + | BLOOD | 162 (H) | 70 - 99 mg/dL | [facility] - | | | GLUCOSE, | | | [facility] | | | POC | | | [facility] | | | | | | OF CARE | | | | | | TESTS | | + +---------+ + + + + + | Specimen | + + | | + + + + + + + | Performing | Address | City/State/Zipcode | Phone Number | | Organization | | | | + + + + + | [facility] | [address] | [place], [place] | | | [facility] | [address] | [address] | | | TESTS | | | | + + + + + CAPILLARY BLOOD GLUCOSE (NO CHG), POC (03/11/2018 5:47 PM PDT) + +---------+ + + + | Component | Value | Ref Range | Performed | Pathologist | | | | | At | Signature | + +---------+ + + + | BLOOD | 235 (H) | 70 - 99 mg/dL | [facility] - | | | GLUCOSE, | | | [facility] | | | POC | | | [facility] | | | | | | OF CARE | | | | | | TESTS | | + +---------+ + + + + + | Specimen | + + | | + + + + + + + | Performing | Address | City/State/Zipcode | Phone Number | | Organization | | | | + + + + + | [facility] | [address] | [place], [place] | | | [facility] | [address] | [address] | | | TESTS | | | | + + + + + CAPILLARY BLOOD GLUCOSE (NO CHG), POC (03/11/2018 1:01 PM PDT) + +---------+ + + + | Component | Value | Ref Range | Performed | Pathologist | | | | | At | Signature | + +---------+ + + + | BLOOD | 255 (H) | 70 - 99 mg/dL | [facility] - | | | GLUCOSE, | | | [facility] | | | POC | | | [facility] | | | | | | OF CARE | | | | | | TESTS | | + +---------+ + + + + + | Specimen | + + | | + + + + + + + | Performing | Address | City/State/Zipcode | Phone Number | | Organization | | | | + + + + + | [facility] | [address] | [place], [place] | | | [facility] | [address] | [address] | | | TESTS | | | | + + + + + CAPILLARY BLOOD GLUCOSE (NO CHG), POC (03/11/2018 8:39 AM PDT) + +---------+ + + + | Component | Value | Ref Range | Performed | Pathologist | | | | | At | Signature | + +---------+ + + + | BLOOD | 284 (H) | 70 - 99 mg/dL | [facility] - | | | GLUCOSE, | | | [facility] | | | POC | | | [facility] | | | | | | OF CARE | | | | | | TESTS | | + +---------+ + + + + + | Specimen | + + | | + + + + + + + | Performing | Address | City/State/Zipcode | Phone Number | | Organization | | | | + + + + + | [facility] | [address] | [place], [place] | | | [facility] | [address] | [address] | | | TESTS | | | | + + + + + CBC (HEMOGRAM) ONLY (03/11/2018 7:03 AM PDT) + +-------+ + + + | Component | Value | Ref Range | Performed | Pathologist | | | | | At | Signature | + +-------+ + + + | WHITE CELL | 6.43 | 3.50 - 10.80 | [facility] | | | COUNT | | K/cu mm | LABORATORY | | | | | | SERVICES, | | | | | | CORE | | + +-------+ + + + | RED CELL | 4.45 | 4.00 - 5.20 | [facility] | | | COUNT | | M/cu mm | LABORATORY | | | | | | SERVICES, | | | | | | CORE | | + +-------+ + + + | HEMOGLOBIN | 12.3 | 12.0 - 16.0 | [facility] | | | | | g/dL | LABORATORY | | | | | | SERVICES, | | | | | | CORE | | + +-------+ + + + | HEMATOCRIT | 38.5 | 36.0 - 46.0 % | [facility] | | | | | | LABORATORY | | | | | | SERVICES, | | | | | | CORE | | + +-------+ + + + | MCV | 86.5 | 80.0 - 96.0 fL | [facility] | | | | | | LABORATORY | | | | | | SERVICES, | | | | | | CORE | | + +-------+ + + + | MCHC | 31.9 | 33.0 - 35.5 | [facility] | | | | | g/dL | LABORATORY | | | | | | SERVICES, | | | | | | CORE | | + +-------+ + + + | RDW SD | 45.5 | 35.1 - 46.3 fL | [facility] | | | | | | LABORATORY | | | | | | SERVICES, | | | | | | CORE | | + +-------+ + + + | PLATELET | 209 | 150 - 400 K/cu | [facility] | | | COUNT | | mm | LABORATORY | | | | | | SERVICES, | | | | | | CORE | | + +-------+ + + + | MPV | 10.2 | 9.7 - 12.3 fL | [facility] | | | | | | LABORATORY | | | | | | SERVICES, | | | | | | CORE | | + +-------+ + + + | NRBC% | 0.0 | 0.0 - 0.3 % | [facility] | | | | | | LABORATORY | | | | | | SERVICES, | | | | | | CORE | | + +-------+ + + + | NRBC# | 0.00 | 0.00 - 0.02 | [facility] | | | | | K/cu mm | LABORATORY | | | | | | SERVICES, | | | | | | CORE | | + +-------+ + + + + + | Specimen | + + | Blood | + + + + + + + | Performing | Address | City/State/Zipcode | Phone Number | | Organization | | | | + + + + + | [facility] | [address] | [place] [address] | | | SERVICES, CORE | [address] | | | + + + + + RENAL FUNCTION SET (NA,K,CL,CO2,BUN,CREAT,GLUC,CA,PHOS,ALB ) (03/11/2018 7:03 AM PDT) + +---------+ + + + | Component | Value | Ref Range | Performed | Pathologist | | | | | At | Signature | + +---------+ + + + | GLUCOSE, | 286 (H) | 70 - 99 mg/dL | [facility] | | | PLASMA | | | LABORATORY | | | (LAB) | | | SERVICES, | | | | | | CORE | | + +---------+ + + + | BUN, PLASMA | 48 (H) | 6 - 20 mg/dL | [facility] | | | (LAB) | | | LABORATORY | | | | | | SERVICES, | | | | | | CORE | | + +---------+ + + + | CREATININE | 0.92 | 0.60 - 1.10 | [facility] | | | PLASMA | | mg/dL | LABORATORY | | | (LAB) | | | SERVICES, | | | | | | CORE | | + +---------+ + + + | EGFR | >60 | >60 mL/min | [facility] | | | - | | | LABORATORY | | | [place] | | | SERVICES, | | | | | | CORE | | + +---------+ + + + | EGFR NON | >60 | >60 mL/min | [facility] | | | -[facility] | | | LABORATORY | | | [facility] | | | SERVICES, | | | | | | CORE | | + +---------+ + + + | SODIUM, | 133 (L) | 136 - 145 | [facility] | | | PLASMA | | mmol/L | LABORATORY | | | (LAB) | | | SERVICES, | | | | | | CORE | | + +---------+ + + + | POTASSIUM, | 4.9 | 3.4 - 5.0 | [facility] | | | PLASMA | | mmol/L | LABORATORY | | | (LAB) | | | SERVICES, | | | | | | CORE | | + +---------+ + + + | CHLORIDE, | 101 | 97 - 108 mmol/L | [facility] | | | PLASMA | | | LABORATORY | | | (LAB) | | | SERVICES, | | | | | | CORE | | + +---------+ + + + | TOTAL CO2, | 26 | 21 - 32 mmol/L | [facility] | | | PLASMA | | | LABORATORY | | | (LAB) | | | SERVICES, | | | | | | CORE | | + +---------+ + + + | CALCIUM, | 8.3 (L) | 8.6 - 10.2 | [facility] | | | PLASMA | | mg/dL | LABORATORY | | | (LAB) | | | SERVICES, | | | | | | CORE | | + +---------+ + + + | CALCIUM(ALB | 9.6 | 8.6 - 10.2 | [facility] | | | CORRECTED) | | mg/dL | LABORATORY | | | | | | SERVICES, | | | | | | CORE | | + +---------+ + + + | ALBUMIN, | 2.4 (L) | 3.5 - 4.7 g/dL | [facility] | | | PLASMA | | | LABORATORY | | | (LAB) | | | SERVICES, | | | | | | CORE | | + +---------+ + + + | PHOSPHORUS, | 3.0 | 2.4 - 4.7 mg/dL | [facility] | | | PLASMA | | | LABORATORY | | | (LAB) | | | SERVICES, | | | | | | CORE | | + +---------+ + + + | POTASSIUM | No Hemo | | [facility] | | | CMNT | | | LABORATORY | | | | | | SERVICES, | | | | | | CORE | | + +---------+ + + + | ANION GAP | 6 | 4 - 11 mmol/L | [facility] | | | | | | LABORATORY | | | | | | SERVICES, | | | | | | CORE | | + +---------+ + + + | ANION | 10 | 4 - 11 mmol/L | [facility] | | | GAP(ALB | | | LABORATORY | | | CORRECTED) | | | SERVICES, | | | | | | CORE | | + +---------+ + + + + + | Specimen | + + | Blood | + + + + + | Narrative | Performed At | + + + | GFR is estimated using the MDRD equation recommended by the | [facility] | | National Kidney Disease Education Program. Estimated GFR | LABORATORY | | Interpretive Information: <60 mL/min/1.73 sq | SERVICES, CORE | | m Chronic Kidney Disease <15 mL/min/1.73 | | | sq m Kidney Failure Estimated GFR greater | | | that 60 mL/min/1.73 sq m is of limited clinical value. The MDRD | | | equation is not valid in the following situations: - Patients under | | | 18 years of age - Severe malnutrition or obesity - Vegetarian diet | | | - Rapidly changing kidney function - Amputees, paraplegics, or other | | | muscle-wasting diseses | | + + + + + + + + | Performing | Address | City/State/Zipcode | Phone Number | | Organization | | | | + + + + + | [facility] | [address] | [place] [address] | | | [facility] [place] | [address] | | | + + + + + CAPILLARY BLOOD GLUCOSE (NO CHG), POC (03/11/2018 3:45 AM PDT) + +---------+ + + + | Component | Value | Ref Range | Performed | Pathologist | | | | | At | Signature | + +---------+ + + + | BLOOD | 250 (H) | 70 - 99 mg/dL | [facility] - | | | GLUCOSE, | | | [facility] | | | POC | | | [facility] | | | | | | OF CARE | | | | | | TESTS | | + +---------+ + + + + + | Specimen | + + | | + + + + + + + | Performing | Address | City/State/Zipcode | Phone Number | | Organization | | | | + + + + + | [facility] | [address] | [place], [place] | | | [facility] | [facility] | [phone] | | | TESTS | | | | + + + + + CAPILLARY BLOOD GLUCOSE (NO CHG), POC (03/10/2018 9:05 PM PDT) + +---------+ + + + | Component | Value | Ref Range | Performed | Pathologist | | | | | At | Signature | + +---------+ + + + | BLOOD | 185 (H) | 70 - 99 mg/dL | [facility] - | | | GLUCOSE, | | | [facility] | | | POC | | | [facility] | | | | | | OF CARE | | | | | | TESTS | | + +---------+ + + + + + | Specimen | + + | | + + + + + + + | Performing | Address | City/State/Zipcode | Phone Number | | Organization | | | | + + + + + | [facility] | [address] | [place], [place] | | | [facility] | [address] | [address] | | | TESTS | | | | + + + + + CAPILLARY BLOOD GLUCOSE (NO CHG), POC (03/10/2018 5:57 PM PDT) + +---------+ + + + | Component | Value | Ref Range | Performed | Pathologist | | | | | At | Signature | + +---------+ + + + | BLOOD | 204 (H) | 70 - 99 mg/dL | [facility] - | | | GLUCOSE, | | | [facility] | | | POC | | | [facility] | | | | | | OF CARE | | | | | | TESTS | | + +---------+ + + + + + | Specimen | + + | | + + + + + + + | Performing | Address | City/State/Zipcode | Phone Number | | Organization | | | | + + + + + | [facility] | [address] | [place], [place] | | | [facility] | [facility] | [address] | | | TESTS | | | | + + + + + CAPILLARY BLOOD GLUCOSE (NO CHG), POC (03/10/2018 12:20 PM PDT) + +---------+ + + + | Component | Value | Ref Range | Performed | Pathologist | | | | | At | Signature | + +---------+ + + + | BLOOD | 308 (H) | 70 - 99 mg/dL | [facility] - | | | GLUCOSE, | | | [facility] | | | POC | | | [facility] | | | | | | OF CARE | | | | | | TESTS | | + +---------+ + + + + + | Specimen | + + | | + + + + + + + | Performing | Address | City/State/Zipcode | Phone Number | | Organization | | | | + + + + + | [facility] | [address] | [place], [place] | | | [facility] | [facility] | [phone] | | | TESTS | | | | + + + + + CAPILLARY BLOOD GLUCOSE (NO CHG), POC (03/10/2018 8:23 AM PDT) + +---------+ + + + | Component | Value | Ref Range | Performed | Pathologist | | | | | At | Signature | + +---------+ + + + | BLOOD | 244 (H) | 70 - 99 mg/dL | [facility] - | | | GLUCOSE, | | | [facility] | | | POC | | | [facility] | | | | | | OF CARE | | | | | | TESTS | | + +---------+ + + + + + | Specimen | + + | | + + + + + + + | Performing | Address | City/State/Zipcode | Phone Number | | Organization | | | | + + + + + | [facility] | [address] | [place], [place] | | | [facility] | [address] | [phone] | | | TESTS | | | | + + + + + RENAL FUNCTION SET (NA,K,CL,CO2,BUN,CREAT,GLUC,CA,PHOS,ALB ) (03/10/2018 5:17 AM PDT) + +---------+ + + + | Component | Value | Ref Range | Performed | Pathologist | | | | | At | Signature | + +---------+ + + + | GLUCOSE, | 243 (H) | 70 - 99 mg/dL | [facility] | | | PLASMA | | | LABORATORY | | | (LAB) | | | SERVICES, | | | | | | CORE | | + +---------+ + + + | BUN, PLASMA | 39 (H) | 6 - 20 mg/dL | [facility] | | | (LAB) | | | LABORATORY | | | | | | SERVICES, | | | | | | CORE | | + +---------+ + + + | CREATININE | 0.81 | 0.60 - 1.10 | [facility] | | | PLASMA | | mg/dL | LABORATORY | | | (LAB) | | | SERVICES, | | | | | | CORE | | + +---------+ + + + | EGFR | >60 | >60 mL/min | [facility] | | | - | | | LABORATORY | | | [place] | | | SERVICES, | | | | | | CORE | | + +---------+ + + + | EGFR NON | >60 | >60 mL/min | [facility] | | | -[facility] | | | LABORATORY | | | [facility] | | | SERVICES, | | | | | | CORE | | + +---------+ + + + | SODIUM, | 135 (L) | 136 - 145 | [facility] | | | PLASMA | | mmol/L | LABORATORY | | | (LAB) | | | SERVICES, | | | | | | CORE | | + +---------+ + + + | POTASSIUM, | 4.5 | 3.4 - 5.0 | [facility] | | | PLASMA | | mmol/L | LABORATORY | | | (LAB) | | | SERVICES, | | | | | | CORE | | + +---------+ + + + | CHLORIDE, | 104 | 97 - 108 mmol/L | [facility] | | | PLASMA | | | LABORATORY | | | (LAB) | | | SERVICES, | | | | | | CORE | | + +---------+ + + + | TOTAL CO2, | 27 | 21 - 32 mmol/L | [facility] | | | PLASMA | | | LABORATORY | | | (LAB) | | | SERVICES, | | | | | | CORE | | + +---------+ + + + | CALCIUM, | 8.3 (L) | 8.6 - 10.2 | [facility] | | | PLASMA | | mg/dL | LABORATORY | | | (LAB) | | | SERVICES, | | | | | | CORE | | + +---------+ + + + | CALCIUM(ALB | 9.7 | 8.6 - 10.2 | [facility] | | | CORRECTED) | | mg/dL | LABORATORY | | | | | | SERVICES, | | | | | | CORE | | + +---------+ + + + | ALBUMIN, | 2.3 (L) | 3.5 - 4.7 g/dL | [facility] | | | PLASMA | | | LABORATORY | | | (LAB) | | | SERVICES, | | | | | | CORE | | + +---------+ + + + | PHOSPHORUS, | 2.9 | 2.4 - 4.7 mg/dL | [facility] | | | PLASMA | | | LABORATORY | | | (LAB) | | | SERVICES, | | | | | | CORE | | + +---------+ + + + | POTASSIUM | No Hemo | | [facility] | | | CMNT | | | LABORATORY | | | | | | SERVICES, | | | | | | CORE | | + +---------+ + + + | ANION GAP | 4 | 4 - 11 mmol/L | [facility] | | | | | | LABORATORY | | | | | | SERVICES, | | | | | | CORE | | + +---------+ + + + | ANION | 8 | 4 - 11 mmol/L | [facility] | | | GAP(ALB | | | LABORATORY | | | CORRECTED) | | | SERVICES, | | | | | | CORE | | + +---------+ + + + + + | Specimen | + + | Blood | + + + + + | Narrative | Performed At | + + + | GFR is estimated using the MDRD equation recommended by the | [facility] | | National Kidney Disease Education Program. Estimated GFR | LABORATORY | | Interpretive Information: <60 mL/min/1.73 sq | SERVICES, CORE | | m Chronic Kidney Disease <15 mL/min/1.73 | | | sq m Kidney Failure Estimated GFR greater | | | that 60 mL/min/1.73 sq m is of limited clinical value. The MDRD | | | equation is not valid in the following situations: - Patients under | | | 18 years of age - Severe malnutrition or obesity - Vegetarian diet | | | - Rapidly changing kidney function - Amputees, paraplegics, or other | | | muscle-wasting diseses | | + + + + + + + + | Performing | Address | City/State/Zipcode | Phone Number | | Organization | | | | + + + + + | [facility] | [id number] | [place] [address] | | | SERVICES, CORE | [address] | | | + + + + + CAPILLARY BLOOD GLUCOSE (NO CHG), POC (03/09/2018 10:04 PM PDT) + +---------+ + + + | Component | Value | Ref Range | Performed | Pathologist | | | | | At | Signature | + +---------+ + + + | BLOOD | 235 (H) | 70 - 99 mg/dL | [facility] - | | | GLUCOSE, | | | [place] | | | POC | | | [facility] | | | | | | OF CARE | | | | | | TESTS | | + +---------+ + + + + + | Specimen | + + | | + + + + + + + | Performing | Address | City/State/Zipcode | Phone Number | | Organization | | | | + + + + + | [facility] | [address] | [place], [place] | | | [facility] | [facility] | [phone] | | | TESTS | | | | + + + + + CAPILLARY BLOOD GLUCOSE (NO CHG), POC (03/09/2018 4:55 PM PDT) + +---------+ + + + | Component | Value | Ref Range | Performed | Pathologist | | | | | At | Signature | + +---------+ + + + | BLOOD | 210 (H) | 70 - 99 mg/dL | [facility] - | | | GLUCOSE, | | | [place] | | | POC | | | [facility] | | | | | | OF CARE | | | | | | TESTS | | + +---------+ + + + + + | Specimen | + + | | + + + + + + + | Performing | Address | City/State/Zipcode | Phone Number | | Organization | | | | + + + + + | [facility] | [address] | [place], [place] | | | [facility] | [address] | [address] | | | TESTS | | | | + + + + + CAPILLARY BLOOD GLUCOSE (NO CHG), POC (03/09/2018 12:36 PM PDT) + +---------+ + + + | Component | Value | Ref Range | Performed | Pathologist | | | | | At | Signature | + +---------+ + + + | BLOOD | 251 (H) | 70 - 99 mg/dL | [facility] - | | | GLUCOSE, | | | [place] | | | POC | | | [facility] | | | | | | OF CARE | | | | | | TESTS | | + +---------+ + + + + + | Specimen | + + | | + + + + + + + | Performing | Address | City/State/Zipcode | Phone Number | | Organization | | | | + + + + + | [facility] | [address] | [place], [place] | | | [facility] | [address] | [address] | | | TESTS | | | | + + + + + CAPILLARY BLOOD GLUCOSE (NO CHG), POC (03/09/2018 8:54 AM PDT) + +---------+ + + + | Component | Value | Ref Range | Performed | Pathologist | | | | | At | Signature | + +---------+ + + + | BLOOD | 268 (H) | 70 - 99 mg/dL | [facility] - | | | GLUCOSE, | | | [place] | | | POC | | | [facility] | | | | | | OF CARE | | | | | | TESTS | | + +---------+ + + + + + | Specimen | + + | | + + + + + + + | Performing | Address | City/State/Zipcode | Phone Number | | Organization | | | | + + + + + | [facility] | [address] | [place], [place] | | | [facility] | [address] | [address] | | | TESTS | | | | + + + + + RENAL FUNCTION SET (NA,K,CL,CO2,BUN,CREAT,GLUC,CA,PHOS,ALB ) (03/09/2018 6:03 AM PDT) + +---------+ + + + | Component | Value | Ref Range | Performed | Pathologist | | | | | At | Signature | + +---------+ + + + | GLUCOSE, | 260 (H) | 70 - 99 mg/dL | [facility] | | | PLASMA | | | LABORATORY | | | (LAB) | | | SERVICES, | | | | | | CORE | | + +---------+ + + + | BUN, PLASMA | 40 (H) | 6 - 20 mg/dL | [facility] | | | (LAB) | | | LABORATORY | | | | | | SERVICES, | | | | | | CORE | | + +---------+ + + + | CREATININE | 0.90 | 0.60 - 1.10 | [facility] | | | PLASMA | | mg/dL | LABORATORY | | | (LAB) | | | SERVICES, | | | | | | CORE | | + +---------+ + + + | EGFR | >60 | >60 mL/min | [facility] | | | - | | | LABORATORY | | | [place] | | | SERVICES, | | | | | | CORE | | + +---------+ + + + | EGFR NON | >60 | >60 mL/min | [facility] | | | -[facility] | | | LABORATORY | | | [facility] | | | SERVICES, | | | | | | CORE | | + +---------+ + + + | SODIUM, | 139 | 136 - 145 | [facility] | | | PLASMA | | mmol/L | LABORATORY | | | (LAB) | | | SERVICES, | | | | | | CORE | | + +---------+ + + + | POTASSIUM, | 4.4 | 3.4 - 5.0 | [facility] | | | PLASMA | | mmol/L | LABORATORY | | | (LAB) | | | SERVICES, | | | | | | CORE | | + +---------+ + + + | CHLORIDE, | 106 | 97 - 108 mmol/L | [facility] | | | PLASMA | | | LABORATORY | | | (LAB) | | | SERVICES, | | | | | | CORE | | + +---------+ + + + | TOTAL CO2, | 30 | 21 - 32 mmol/L | [facility] | | | PLASMA | | | LABORATORY | | | (LAB) | | | SERVICES, | | | | | | CORE | | + +---------+ + + + | CALCIUM, | 8.4 (L) | 8.6 - 10.2 | [facility] | | | PLASMA | | mg/dL | LABORATORY | | | (LAB) | | | SERVICES, | | | | | | CORE | | + +---------+ + + + | CALCIUM(ALB | 9.7 | 8.6 - 10.2 | [facility] | | | CORRECTED) | | mg/dL | LABORATORY | | | | | | SERVICES, | | | | | | CORE | | + +---------+ + + + | ALBUMIN, | 2.4 (L) | 3.5 - 4.7 g/dL | [facility] | | | PLASMA | | | LABORATORY | | | (LAB) | | | SERVICES, | | | | | | CORE | | + +---------+ + + + | PHOSPHORUS, | 3.0 | 2.4 - 4.7 mg/dL | [facility] | | | PLASMA | | | LABORATORY | | | (LAB) | | | SERVICES, | | | | | | CORE | | + +---------+ + + + | POTASSIUM | No Hemo | | [facility] | | | CMNT | | | LABORATORY | | | | | | SERVICES, | | | | | | CORE | | + +---------+ + + + | ANION GAP | 3 (L) | 4 - 11 mmol/L | [facility] | | | | | | LABORATORY | | | | | | SERVICES, | | | | | | CORE | | + +---------+ + + + | ANION | 7 | 4 - 11 mmol/L | [facility] | | | GAP(ALB | | | LABORATORY | | | CORRECTED) | | | SERVICES, | | | | | | CORE | | + +---------+ + + + + + | Specimen | + + | Blood | + + + + + | Narrative | Performed At | + + + | GFR is estimated using the MDRD equation recommended by the | [facility] | | National Kidney Disease Education Program. Estimated GFR | LABORATORY | | Interpretive Information: <60 mL/min/1.73 sq | SERVICES, CORE | | m Chronic Kidney Disease <15 mL/min/1.73 | | | sq m Kidney Failure Estimated GFR greater | | | that 60 mL/min/1.73 sq m is of limited clinical value. The MDRD | | | equation is not valid in the following situations: - Patients under | | | 18 years of age - Severe malnutrition or obesity - Vegetarian diet | | | - Rapidly changing kidney function - Amputees, paraplegics, or other | | | muscle-wasting diseses | | + + + + + + + + | Performing | Address | City/State/Zipcode | Phone Number | | Organization | | | | + + + + + | [facility] | [address] | [place] [address] | | | SERVICES, [place] | [address] | | | + + + + + CAPILLARY BLOOD GLUCOSE (NO CHG), POC (03/08/2018 9:34 PM PDT) + +---------+ + + + | Component | Value | Ref Range | Performed | Pathologist | | | | | At | Signature | + +---------+ + + + | BLOOD | 244 (H) | 70 - 99 mg/dL | [facility] - | | | GLUCOSE, | | | [place] | | | POC | | | [facility] | | | | | | OF CARE | | | | | | TESTS | | + +---------+ + + + + + | Specimen | + + | | + + + + + + + | Performing | Address | City/State/Zipcode | Phone Number | | Organization | | | | + + + + + | [facility] | [address] | [place], [place] | | | [facility] | [address] | [address] | | | TESTS | | | | + + + + + CAPILLARY BLOOD GLUCOSE (NO CHG), POC (03/08/2018 5:42 PM PDT) + +---------+ + + + | Component | Value | Ref Range | Performed | Pathologist | | | | | At | Signature | + +---------+ + + + | BLOOD | 125 (H) | 70 - 99 mg/dL | [facility] - | | | GLUCOSE, | | | [place] | | | POC | | | [facility] | | | | | | OF CARE | | | | | | TESTS | | + +---------+ + + + + + | Specimen | + + | | + + + + + + + | Performing | Address | City/State/Zipcode | Phone Number | | Organization | | | | + + + + + | [facility] | [address] | [place], [place] | | | [facility] | [address] | [address] | | | TESTS | | | | + + + + + CAPILLARY BLOOD GLUCOSE (NO CHG), POC (03/08/2018 4:39 PM PDT) + +---------+ + + + | Component | Value | Ref Range | Performed | Pathologist | | | | | At | Signature | + +---------+ + + + | BLOOD | 123 (H) | 70 - 99 mg/dL | [facility] - | | | GLUCOSE, | | | [place] | | | POC | | | [facility] | | | | | | OF CARE | | | | | | TESTS | | + +---------+ + + + + + | Specimen | + + | | + + + + + + + | Performing | Address | City/State/Zipcode | Phone Number | | Organization | | | | + + + + + | [facility] | [address] | [place], [place] | | | [facility] | [address] | [address] | | | TESTS | | | | + + + + + CAPILLARY BLOOD GLUCOSE (NO CHG), POC (03/08/2018 3:00 PM PDT) + +---------+ + + + | Component | Value | Ref Range | Performed | Pathologist | | | | | At | Signature | + +---------+ + + + | BLOOD | 158 (H) | 70 - 99 mg/dL | [facility] - | | | GLUCOSE, | | | [place] | | | POC | | | [facility] | | | | | | OF CARE | | | | | | TESTS | | + +---------+ + + + + + | Specimen | + + | | + + + + + + + | Performing | Address | City/State/Zipcode | Phone Number | | Organization | | | | + + + + + | [facility] | [address] | [place], [place] | | | [facility] | [address] | [address] | | | TESTS | | | | + + + + + CAPILLARY BLOOD GLUCOSE (NO CHG), POC (03/08/2018 2:03 PM PDT) + +---------+ + + + | Component | Value | Ref Range | Performed | Pathologist | | | | | At | Signature | + +---------+ + + + | BLOOD | 150 (H) | 70 - 99 mg/dL | [facility] - | | | GLUCOSE, | | | [place] | | | POC | | | [facility] | | | | | | OF CARE | | | | | | TESTS | | + +---------+ + + + + + | Specimen | + + | | + + + + + + + | Performing | Address | City/State/Zipcode | Phone Number | | Organization | | | | + + + + + | [facility] | [address] | [place], [place] | | | [facility] | [address] | [address] | | | TESTS | | | | + + + + + CAPILLARY BLOOD GLUCOSE (NO CHG), POC (03/08/2018 12:58 PM PDT) + +---------+ + + + | Component | Value | Ref Range | Performed | Pathologist | | | | | At | Signature | + +---------+ + + + | BLOOD | 103 (H) | 70 - 99 mg/dL | [facility] - | | | GLUCOSE, | | | [place] | | | POC | | | [facility] | | | | | | OF CARE | | | | | | TESTS | | + +---------+ + + + + + | Specimen | + + | | + + + + + + + | Performing | Address | City/State/Zipcode | Phone Number | | Organization | | | | + + + + + | [facility] | [address] | [place], [place] | | | [facility] | [facility] | [address] | | | TESTS | | | | + + + + + CAPILLARY BLOOD GLUCOSE (NO CHG), POC (03/08/2018 11:48 AM PDT) + +---------+ + + + | Component | Value | Ref Range | Performed | Pathologist | | | | | At | Signature | + +---------+ + + + | BLOOD | 164 (H) | 70 - 99 mg/dL | [facility] - | | | GLUCOSE, | | | [place] | | | POC | | | [facility] | | | | | | OF CARE | | | | | | TESTS | | + +---------+ + + + + + | Specimen | + + | | + + + + + + + | Performing | Address | City/State/Zipcode | Phone Number | | Organization | | | | + + + + + | [facility] | [address] | [place], [place] | | | [facility] | [address] | [address] | | | TESTS | | | | + + + + + CAPILLARY BLOOD GLUCOSE (NO CHG), POC (03/08/2018 10:34 AM PDT) + +---------+ + + + | Component | Value | Ref Range | Performed | Pathologist | | | | | At | Signature | + +---------+ + + + | BLOOD | 191 (H) | 70 - 99 mg/dL | [facility] - | | | GLUCOSE, | | | [place] | | | POC | | | [facility] | | | | | | OF CARE | | | | | | TESTS | | + +---------+ + + + + + | Specimen | + + | | + + + + + + + | Performing | Address | City/State/Zipcode | Phone Number | | Organization | | | | + + + + + | [facility] | [address] | [place], [place] | | | [facility] | [address] | [address] | | | TESTS | | | | + + + + + CAPILLARY BLOOD GLUCOSE (NO CHG), POC (03/08/2018 9:17 AM PDT) + +---------+ + + + | Component | Value | Ref Range | Performed | Pathologist | | | | | At | Signature | + +---------+ + + + | BLOOD | 142 (H) | 70 - 99 mg/dL | [facility] - | | | GLUCOSE, | | | [place] | | | POC | | | [facility] | | | | | | OF CARE | | | | | | TESTS | | + +---------+ + + + + + | Specimen | + + | | + + + + + + + | Performing | Address | City/State/Zipcode | Phone Number | | Organization | | | | + + + + + | [facility] | [address] | [place], [place] | | | [facility] | [facility] | [phone] | | | TESTS | | | | + + + + + CBC (HEMOGRAM) ONLY (03/08/2018 8:30 AM PDT) + + + + + + | Component | Value | Ref Range | Performed | Pathologist | | | | | At | Signature | + + + + + + | WHITE CELL | 8.47 | 3.50 - 10.80 | [facility] | | | COUNT | | K/cu mm | LABORATORY | | | | | | SERVICES, | | | | | | CORE | | + + + + + + | RED CELL | 4.52 | 4.00 - 5.20 | [facility] | | | COUNT | | M/cu mm | LABORATORY | | | | | | SERVICES, | | | | | | CORE | | + + + + + + | HEMOGLOBIN | 12.4 | 12.0 - 16.0 | [facility] | | | | | g/dL | LABORATORY | | | | | | SERVICES, | | | | | | CORE | | + + + + + + | HEMATOCRIT | 39.9 | 36.0 - 46.0 % | [facility] | | | | | | LABORATORY | | | | | | SERVICES, | | | | | | CORE | | + + + + + + | MCV | 88.3 | 80.0 - 96.0 fL | [facility] | | | | | | LABORATORY | | | | | | SERVICES, | | | | | | CORE | | + + + + + + | MCHC | 31.1 | 33.0 - 35.5 | [facility] | | | | | g/dL | LABORATORY | | | | | | SERVICES, | | | | | | CORE | | + + + + + + | RDW SD | 47.9 (H) | 35.1 - 46.3 fL | [facility] | | | | | | LABORATORY | | | | | | SERVICES, | | | | | | CORE | | + + + + + + | PLATELET | 256 | 150 - 400 K/cu | [facility] | | | COUNT | | mm | LABORATORY | | | | | | SERVICES, | | | | | | CORE | | + + + + + + | MPV | 10.9 | 9.7 - 12.3 fL | [facility] | | | | | | LABORATORY | | | | | | SERVICES, | | | | | | CORE | | + + + + + + | NRBC% | 0.0 | 0.0 - 0.3 % | [facility] | | | | | | LABORATORY | | | | | | SERVICES, | | | | | | CORE | | + + + + + + | NRBC# | 0.00 | 0.00 - 0.02 | [facility] | | | | | K/cu mm | LABORATORY | | | | | | SERVICES, | | | | | | CORE | | + + + + + + + + | Specimen | + + | Blood | + + + + + + + | Performing | Address | City/State/Zipcode | Phone Number | | Organization | | | | + + + + + | [facility] | [address] | [place] [address] | | | SERVICES, [place] | [address] | | | + + + + + RENAL FUNCTION SET (NA,K,CL,CO2,BUN,CREAT,GLUC,CA,PHOS,ALB ) (03/08/2018 8:30 AM PDT) + +---------+ + + + | Component | Value | Ref Range | Performed | Pathologist | | | | | At | Signature | + +---------+ + + + | GLUCOSE, | 132 (H) | 70 - 99 mg/dL | [facility] | | | PLASMA | | | LABORATORY | | | (LAB) | | | SERVICES, | | | | | | CORE | | + +---------+ + + + | BUN, PLASMA | 45 (H) | 6 - 20 mg/dL | [facility] | | | (LAB) | | | LABORATORY | | | | | | SERVICES, | | | | | | CORE | | + +---------+ + + + | CREATININE | 0.90 | 0.60 - 1.10 | [facility] | | | PLASMA | | mg/dL | LABORATORY | | | (LAB) | | | SERVICES, | | | | | | CORE | | + +---------+ + + + | EGFR | >60 | >60 mL/min | [facility] | | | - | | | LABORATORY | | | [place] | | | SERVICES, | | | | | | CORE | | + +---------+ + + + | EGFR NON | >60 | >60 mL/min | [facility] | | | -[facility] | | | LABORATORY | | | [facility] | | | SERVICES, | | | | | | CORE | | + +---------+ + + + | SODIUM, | 144 | 136 - 145 | [facility] | | | PLASMA | | mmol/L | LABORATORY | | | (LAB) | | | SERVICES, | | | | | | CORE | | + +---------+ + + + | POTASSIUM, | 4.2 | 3.4 - 5.0 | [facility] | | | PLASMA | | mmol/L | LABORATORY | | | (LAB) | | | SERVICES, | | | | | | CORE | | + +---------+ + + + | CHLORIDE, | 109 (H) | 97 - 108 mmol/L | [facility] | | | PLASMA | | | LABORATORY | | | (LAB) | | | SERVICES, | | | | | | CORE | | + +---------+ + + + | TOTAL CO2, | 29 | 21 - 32 mmol/L | [facility] | | | PLASMA | | | LABORATORY | | | (LAB) | | | SERVICES, | | | | | | CORE | | + +---------+ + + + | CALCIUM, | 8.2 (L) | 8.6 - 10.2 | [facility] | | | PLASMA | | mg/dL | LABORATORY | | | (LAB) | | | SERVICES, | | | | | | CORE | | + +---------+ + + + | CALCIUM(ALB | 9.4 | 8.6 - 10.2 | [facility] | | | CORRECTED) | | mg/dL | LABORATORY | | | | | | SERVICES, | | | | | | CORE | | + +---------+ + + + | ALBUMIN, | 2.5 (L) | 3.5 - 4.7 g/dL | [facility] | | | PLASMA | | | LABORATORY | | | (LAB) | | | SERVICES, | | | | | | CORE | | + +---------+ + + + | PHOSPHORUS, | 3.1 | 2.4 - 4.7 mg/dL | [facility] | | | PLASMA | | | LABORATORY | | | (LAB) | | | SERVICES, | | | | | | CORE | | + +---------+ + + + | POTASSIUM | No Hemo | | [facility] | | | CMNT | | | LABORATORY | | | | | | SERVICES, | | | | | | CORE | | + +---------+ + + + | ANION GAP | 6 | 4 - 11 mmol/L | [facility] | | | | | | LABORATORY | | | | | | SERVICES, | | | | | | CORE | | + +---------+ + + + | ANION | 9 | 4 - 11 mmol/L | [facility] | | | GAP(ALB | | | LABORATORY | | | CORRECTED) | | | SERVICES, | | | | | | CORE | | + +---------+ + + + + + | Specimen | + + | Blood | + + + + + | Narrative | Performed At | + + + | GFR is estimated using the MDRD equation recommended by the | [facility] | | National Kidney Disease Education Program. Estimated GFR | LABORATORY | | Interpretive Information: <60 mL/min/1.73 sq | SERVICES, CORE | | m Chronic Kidney Disease <15 mL/min/1.73 | | | sq m Kidney Failure Estimated GFR greater | | | that 60 mL/min/1.73 sq m is of limited clinical value. The MDRD | | | equation is not valid in the following situations: - Patients under | | | 18 years of age - Severe malnutrition or obesity - Vegetarian diet | | | - Rapidly changing kidney function - Amputees, paraplegics, or other | | | muscle-wasting diseses | | + + + + + + + + | Performing | Address | City/State/Zipcode | Phone Number | | Organization | | | | + + + + + | [facility] | [address] | [place] [address] | | | SERVICES, [place]ORE | [address] | | | + + + + + HEPATITIS B CORE AB, SERUM (03/08/2018 8:30 AM PDT) + + + + + + | Component | Value | Ref Range | Performed | Pathologist | | | | | At | Signature | + + + + + + | HEP B CORE | Detected (A) | Not Detected | [facility] | | | AB | | | LABORATORY | | | | | | SERVICES, | | | | | | CORE | | + + + + + + + + | Specimen | + + | Blood | + + + + + + + | Performing | Address | City/State/Zipcode | Phone Number | | Organization | | | | + + + + + | [facility] | [address] | [place] [address] | | | SERVICES, CORE | [address] | | | + + + + + HEPATITIS B SURFACE AB QUAL, SERUM (03/08/2018 8:30 AM PDT) + + + + + + | Component | Value | Ref Range | Performed | Pathologist | | | | | At | Signature | + + + + + + | HEP B | Detected (A) | Not Detected | [facility] | | | SURFACE AB | | | LABORATORY | | | QUAL | | | SERVICES, | | | | | | CORE | | + + + + + + + + | Specimen | + + | Blood | + + + + + | Narrative | Performed At | + + + | "Detected" >=10 mIU/mL indicates immunity to Hepatitis B. | [facility] | | | LABORATORY | | | [place] | + + + + + + + + | Performing | Address | City/State/Zipcode | Phone Number | | Organization | | | | + + + + + | [facility] | [address] | [place] [address] | | | [place] | [address] | | | + + + + + HEPATITIS B SURFACE AG W/REFLEX CONFIRMATION IF INDETERMINATE RESULTS (03/08/2018 8:30 AM PDT) + + + + + + | Component | Value | Ref Range | Performed | Pathologist | | | | | At | Signature | + + + + + + | HEPATITIS B | | | [facility] | | | SURFACE | | | LABORATORY | | | AG, SERUM | | | SERVICES, | | | | | | CORE | | + + + + + + | HEP B | Not Detected | Not Detected | [facility] | | | SURFACE AG | | | LABORATORY | | | | | | SERVICES, | | | | | | CORE | | + + + + + + + + | Specimen | + + | Blood | + + + + + + + | Performing | Address | City/State/Zipcode | Phone Number | | Organization | | | | + + + + + | [facility] | [address] | [place] [address] | | | SERVICES, [place] | [address] | | | + + + + + QUANTIFERON TB GOLD, BLOOD (03/08/2018 8:30 AM PDT) + + + + + + | Component | Value | Ref Range | Performed | Pathologist | | | | | At | Signature | + + + + + + | QUANTIFERON | NegativeComment: | Negative | [facility] - | | | TB GOLD | INTERPRETIVE | | AIRPORT - | | | | INFORMATION: | | [place] | | | | QuantiFERON-TB Gold | | | | | | In-TubeInterferon gamma | | | | | | release is measured for | | | | | | specimens from each of | | | | | | the three collection | | | | | | tubes. A qualitative | | | | | | result (Negative, | | | | | | Positive, or | | | | | | Indeterminate) is based | | | | | | on interpretation of the | | | | | | three values, NIL, | | | | | | MITOGEN minus NIL | | | | | | (MITOGEN-NIL), and TB | | | | | | minus NIL (TB-NIL). The | | | | | | NIL value represents | | | | | | nonspecific reactivity | | | | | | produced by the patient | | | | | | specimen. The | | | | | | MITOGEN-NIL value serves | | | | | | as the positive control | | | | | | for the patient | | | | | | specimen, demonstrating | | | | | | successful lymphocyte | | | | | | activity. The TB-NIL | | | | | | value represents | | | | | | lymphocyte reactivity | | | | | | specifically stimulated | | | | | | by the TB antigen. An | | | | | | overall Negative result | | | | | | does not completely rule | | | | | | out TB infection. A | | | | | | false-positive result in | | | | | | the absence of other | | | | | | clinical evidence of TB | | | | | | infection is not | | | | | | uncommon. Refer to: | | | | | | Updated Guidelines for | | | | | | Using Interferon Gamma | | | | | | Release Assays to Detect | | | | | | Mycobacterium | | | | | | tuberculosis Infection | | | | | | --- [place], 2009 | | | | | | (http://www.cdc.gov/mmwr | | | | | | /preview/mmwrhtml/hd6688 | | | | | | a1.htm), for information | | | | | | concerning test | | | | | | performance in | | | | | | low-prevalence | | | | | | populations and use in | | | | | | occupational screening. | | | | + + + + + + | NIL | 0.04Comment: Performed | IU/mL | [facility] - | | | | by [facility] | | AIRPORT - | | | | [facility], | | [place] | | | | | | | | | | [address] | | | | | | [address] [facility] [place] | | | | | | [address] | | | | | | [phone] | | | | | | | | | | | | www.[employer] [place] | | | | | | MD Rg - Lab. | | | | | | Director | | | | + + + + + + | TB AG-NIL | 0.01 | 0.00 - 0.34 | [facility] - | | | | | IU/mL | AIRPORT - | | | | | | [place] | | + + + + + + | MITOGEN-NIL | 7.93 | IU/mL | [facility] - | | | | | | AIRPORT - | | | | | | [place] | | + + + + + + + + | Specimen | + + | Blood | + + + + + + + | Performing | Address | City/State/Zipcode | Phone Number | | Organization | | | | + + + + + | [facility] - | [address] | [place] [address] | | | [place] | | | | + + + + + CAPILLARY BLOOD GLUCOSE (NO CHG), POC (03/08/2018 8:23 AM PDT) + +---------+ + + + | Component | Value | Ref Range | Performed | Pathologist | | | | | At | Signature | + +---------+ + + + | BLOOD | 134 (H) | 70 - 99 mg/dL | [facility] - | | | GLUCOSE, | | | [place] | | | POC | | | [facility] | | | | | | OF CARE | | | | | | TESTS | | + +---------+ + + + + + | Specimen | + + | | + + + + + + + | Performing | Address | City/State/Zipcode | Phone Number | | Organization | | | | + + + + + | [facility] | [address] | [place], [place] | | | [facility] | [address] | [address] | | | TESTS | | | | + + + + + CAPILLARY BLOOD GLUCOSE (NO CHG), POC (03/08/2018 7:18 AM PDT) + +---------+ + + + | Component | Value | Ref Range | Performed | Pathologist | | | | | At | Signature | + +---------+ + + + | BLOOD | 107 (H) | 70 - 99 mg/dL | [facility] - | | | GLUCOSE, | | | [place] | | | POC | | | [place] | | | | | | OF CARE | | | | | | TESTS | | + +---------+ + + + + + | Specimen | + + | | + + + + + + + | Performing | Address | City/State/Zipcode | Phone Number | | Organization | | | | + + + + + | [facility] | [address] | [place], [place] | | | [facility] | [address] | [address] | | | TESTS | | | | + + + + + CAPILLARY BLOOD GLUCOSE (NO CHG), POC (03/08/2018 6:11 AM PDT) + +---------+ + + + | Component | Value | Ref Range | Performed | Pathologist | | | | | At | Signature | + +---------+ + + + | BLOOD | 117 (H) | 70 - 99 mg/dL | [facility] - | | | GLUCOSE, | | | [place] | | | POC | | | [facility] | | | | | | OF CARE | | | | | | TESTS | | + +---------+ + + + + + | Specimen | + + | | + + + + + + + | Performing | Address | City/State/Zipcode | Phone Number | | Organization | | | | + + + + + | [facility] | [address] | [place], [place] | | | [facility] | [address] | [address] | | | TESTS | | | | + + + + + CAPILLARY BLOOD GLUCOSE (NO CHG), POC (03/08/2018 5:36 AM PDT) + +-------+ + + + | Component | Value | Ref Range | Performed | Pathologist | | | | | At | Signature | + +-------+ + + + | BLOOD | 88 | 70 - 99 mg/dL | [facility] - | | | GLUCOSE, | | | [place] | | | POC | | | [facility] | | | | | | OF CARE | | | | | | TESTS | | + +-------+ + + + + + | Specimen | + + | | + + + + + + + | Performing | Address | City/State/Zipcode | Phone Number | | Organization | | | | + + + + + | [facility] | [address] | [place], [place] | | | [facility] | [address] | [address] | | | TESTS | | | | + + + + + CAPILLARY BLOOD GLUCOSE (NO CHG), POC (03/08/2018 3:35 AM PDT) + +---------+ + + + | Component | Value | Ref Range | Performed | Pathologist | | | | | At | Signature | + +---------+ + + + | BLOOD | 127 (H) | 70 - 99 mg/dL | [facility] | | | [facility], | | | [facility] | | | POC | | | [facility] | | | | | | [facility] | | | | | | TESTS | | + +---------+ + + + + + | Specimen | + + | | + + + + + + + | Performing | Address | City/State/Zipcode | Phone Number | | Organization | | | | + + + + + | [facility] | [address] | [place], [place] | | | [facility] | [address] | [address] | | | TESTS | | | | + + + + + CAPILLARY BLOOD GLUCOSE (NO CHG), POC (03/08/2018 1:24 AM PDT) + +---------+ + + + | Component | Value | Ref Range | Performed | Pathologist | | | | | At | Signature | + +---------+ + + + | BLOOD | 131 (H) | 70 - 99 mg/dL | [facility] | | | [facility], | | | [facility] | | | POC | | | [facility] | | | | | | [facility] | | | | | | TESTS | | + +---------+ + + + + + | Specimen | + + | | + + + + + + + | Performing | Address | City/State/Zipcode | Phone Number | | Organization | | | | + + + + + | [facility] | [address] | [place], [place] | | | [facility] | [address] | [address] | | | TESTS | | | | + + + + + CAPILLARY BLOOD GLUCOSE (NO CHG), POC (03/07/2018 11:28 PM PDT) + +---------+ + + + | Component | Value | Ref Range | Performed | Pathologist | | | | | At | Signature | + +---------+ + + + | BLOOD | 128 (H) | 70 - 99 mg/dL | [facility] | | | [facility], | | | [facility] | | | POC | | | [facility] | | | | | | [facility] | | | | | | TESTS | | + +---------+ + + + + + | Specimen | + + | | + + + + + + + | Performing | Address | City/State/Zipcode | Phone Number | | Organization | | | | + + + + + | [facility] | [address] | [place], [place] | | | [facility] | [address] | [address] | | | TESTS | | | | + + + + + CAPILLARY BLOOD GLUCOSE (NO CHG), POC (03/07/2018 10:30 PM PDT) + +---------+ + + + | Component | Value | Ref Range | Performed | Pathologist | | | | | At | Signature | + +---------+ + + + | BLOOD | 129 (H) | 70 - 99 mg/dL | [facility] | | | [facility], | | | [facility] | | | POC | | | [facility] | | | | | | [facility] | | | | | | TESTS | | + +---------+ + + + + + | Specimen | + + | | + + + + + + + | Performing | Address | City/State/Zipcode | Phone Number | | Organization | | | | + + + + + | [facility] | [address] | [place], [place] | | | [facility] | [address] | [address] | | | TESTS | | | | + + + + + CAPILLARY BLOOD GLUCOSE (NO CHG), POC (03/07/2018 9:28 PM PDT) + +---------+ + + + | Component | Value | Ref Range | Performed | Pathologist | | | | | At | Signature | + +---------+ + + + | BLOOD | 129 (H) | 70 - 99 mg/dL | [facility] - | | | GLUCOSE, | | | [facility] | | | POC | | | [facility] | | | | | | [facility] | | | | | | TESTS | | + +---------+ + + + + + | Specimen | + + | | + + + + + + + | Performing | Address | City/State/Zipcode | Phone Number | | Organization | | | | + + + + + | [facility] | [address] | [place], [place] | | | [facility] | [address] | [phone] | | | TESTS | | | | + + + + + CAPILLARY BLOOD GLUCOSE (NO CHG), POC (03/07/2018 8:29 PM PDT) + +---------+ + + + | Component | Value | Ref Range | Performed | Pathologist | | | | | At | Signature | + +---------+ + + + | BLOOD | 141 (H) | 70 - 99 mg/dL | [facility] | | | GLUCOSE, | | | [facility] | | | POC | | | [facility] | | | | | | OF CARE | | | | | | TESTS | | + +---------+ + + + + + | Specimen | + + | | + + + + + + + | Performing | Address | City/State/Zipcode | Phone Number | | Organization | | | | + + + + + | [facility] | [address] | [place], [place] | | | [facility] | [address] | [address] | | | TESTS | | | | + + + + + CAPILLARY BLOOD GLUCOSE (NO CHG), POC (03/07/2018 7:12 PM PDT) + +---------+ + + + | Component | Value | Ref Range | Performed | Pathologist | | | | | At | Signature | + +---------+ + + + | BLOOD | 117 (H) | 70 - 99 mg/dL | [facility] | | | GLUCOSE, | | | [place] | | | POC | | | [facility] | | | | | | OF CARE | | | | | | TESTS | | + +---------+ + + + + + | Specimen | + + | | + + + + + + + | Performing | Address | City/State/Zipcode | Phone Number | | Organization | | | | + + + + + | [facility] | [address] | [place], [place] | | | [facility] | [address] | [address] | | | TESTS | | | | + + + + + CAPILLARY BLOOD GLUCOSE (NO CHG), POC (03/07/2018 6:19 PM PDT) + +---------+ + + + | Component | Value | Ref Range | Performed | Pathologist | | | | | At | Signature | + +---------+ + + + | BLOOD | 119 (H) | 70 - 99 mg/dL | [facility] | | | GLUCOSE, | | | [facility] | | | POC | | | [facility] | | | | | | OF CARE | | | | | | TESTS | | + +---------+ + + + + + | Specimen | + + | | + + + + + + + | Performing | Address | City/State/Zipcode | Phone Number | | Organization | | | | + + + + + | [facility] | [address] | [place], [place] | | | [facility] | [address] | [address] | | | TESTS | | | | + + + + + CAPILLARY BLOOD GLUCOSE (NO CHG), POC (03/07/2018 5:05 PM PDT) + +---------+ + + + | Component | Value | Ref Range | Performed | Pathologist | | | | | At | Signature | + +---------+ + + + | BLOOD | 161 (H) | 70 - 99 mg/dL | [facility] | | | GLUCOSE, | | | [place] | | | POC | | | [facility] | | | | | | OF CARE | | | | | | TESTS | | + +---------+ + + + + + | Specimen | + + | | + + + + + + + | Performing | Address | City/State/Zipcode | Phone Number | | Organization | | | | + + + + + | [facility] | [address] | [place], [place] | | | [facility] | [address] | [address] | | | TESTS | | | | + + + + + CAPILLARY BLOOD GLUCOSE (NO CHG), POC (03/07/2018 3:11 PM PDT) + +---------+ + + + | Component | Value | Ref Range | Performed | Pathologist | | | | | At | Signature | + +---------+ + + + | BLOOD | 184 (H) | 70 - 99 mg/dL | [facility] | | | GLUCOSE, | | | [facility] | | | POC | | | [facility] | | | | | | OF CARE | | | | | | TESTS | | + +---------+ + + + + + | Specimen | + + | | + + + + + + + | Performing | Address | City/State/Zipcode | Phone Number | | Organization | | | | + + + + + | [facility] | [address] | [place], [place] | | | [facility] | [address] | [address] | | | TESTS | | | | + + + + + CAPILLARY BLOOD GLUCOSE (NO CHG), POC (03/07/2018 2:01 PM PDT) + +---------+ + + + | Component | Value | Ref Range | Performed | Pathologist | | | | | At | Signature | + +---------+ + + + | BLOOD | 178 (H) | 70 - 99 mg/dL | [facility] | | | GLUCOSE, | | | [facility] | | | POC | | | [facility] | | | | | | OF CARE | | | | | | TESTS | | + +---------+ + + + + + | Specimen | + + | | + + + + + + + | Performing | Address | City/State/Zipcode | Phone Number | | Organization | | | | + + + + + | [facility] | [address] | [place], [place] | | | [facility] | [address] | [address] | | | TESTS | | | | + + + + + CAPILLARY BLOOD GLUCOSE (NO CHG), POC (03/07/2018 12:57 PM PDT) + +---------+ + + + | Component | Value | Ref Range | Performed | Pathologist | | | | | At | Signature | + +---------+ + + + | BLOOD | 163 (H) | 70 - 99 mg/dL | [facility] | | | GLUCOSE, | | | [place] | | | POC | | | [facility] | | | | | | OF CARE | | | | | | TESTS | | + +---------+ + + + + + | Specimen | + + | | + + + + + + + | Performing | Address | City/State/Zipcode | Phone Number | | Organization | | | | + + + + + | [facility] | [address] | [place], [place] | | | [facility] | [address] | [address] | | | TESTS | | | | + + + + + CAPILLARY BLOOD GLUCOSE (NO CHG), POC (03/07/2018 12:14 PM PDT) + +---------+ + + + | Component | Value | Ref Range | Performed | Pathologist | | | | | At | Signature | + +---------+ + + + | BLOOD | 132 (H) | 70 - 99 mg/dL | [facility] | | | GLUCOSE, | | | [place] | | | POC | | | [facility] | | | | | | OF CARE | | | | | | TESTS | | + +---------+ + + + + + | Specimen | + + | | + + + + + + + | Performing | Address | City/State/Zipcode | Phone Number | | Organization | | | | + + + + + | [facility] | [address] | [place], [place] | | | [place] [facility] | [address] | [address] | | | TESTS | | | | + + + + + FOLATE, SERUM (03/07/2018 11:18 AM PDT) + + + + + + | Component | Value | Ref Range | Performed | Pathologist | | | | | At | Signature | + + + + + + | FOLATE, | 13.3Comment: | >=5.9 ng/mL | [facility] | | | SERUM | INTERPRETIVE | | REG UNIV | | | | INFORMATION: Folate, | | PTH - INTFC | | | | Serum Reference | | | | | | Interval: Less than or | | | | | | equal to 3.9 ng/mL = | | | | | | Deficient 4.0 ng/mL - | | | | | | 5.8 ng/mL = | | | | | | Indeterminate Greater | | | | | | than or equal to 5.9 | | | | | | ng/mL = NormalPerformed | | | | | | by [address] | | | | | | [address], [facility] [place] | | | | | | [address] | | | | | | [phone].[facility]. | | | | | | Sherwin tyler MD, | | | | | | Lab. Director | | | | + + + + + + + + | Specimen | + + | Blood | + + + + + + + | Performing | Address | City/State/Zipcode | Phone Number | | Organization | | | | + + + + + | [facility] | [address] | [place], [place] | | | UNIV PTH - INT[facility] | | [address] | | + + + + + VITAMIN E, SERUM (03/07/2018 11:18 AM PDT) + + + + + + | Component | Value | Ref Range | Performed | Pathologist | | | | | At | Signature | + + + + + + | VITAMIN E | 0.2Comment: Performed by | 0.0 - 6.0 mg/L | [facility] | | | (JOANN F[facility]ICIO) | [address] | | REG UNIV | | | SERUM | [facility] | | PTH - INT[facility] | | | | [address] | | | | | | [phone].[employer]. | | | | | | Sherwin tyler MD, | | | | | | Lab. Director | | | | + + + + + + | VITAMIN E | 8.2Comment: Test | 5.5 - 18.0 mg/L | [facility] | | | (ALPHA | developed and | | REG UNIV | | | FABRICIO), SERUM | characteristics | | PTH - INTFC | | | | determined by [facility] | | | | | | Laboratories. See | | | | | | Compliance Statement B: | | | | | | [employer] | | | | + + + + + + + + | Specimen | + + | Blood | + + + + + + + | Performing | Address | City/State/Zipcode | Phone Number | | Organization | | | | + + + + + | [facility] | [address] | [place], [place] | | | UNIV PTH - INTFC | | [address] | | + + + + + VITAMIN B-12 (03/07/2018 11:18 AM PDT) + + + + + + | Component | Value | Ref Range | Performed | Pathologist | | | | | At | Signature | + + + + + + | VITAMIN B12 | 1,360 (H) | 193 - 986 pg/mL | [facility] | | | | | | LABORATORY | | | | | | SERVICES, | | | | | | CORE | | + + + + + + | COMMENT | 1 | | [facility] | | | (HEMO) | | | LABORATORY | | | | | | SERVICES, | | | | | | CORE | | + + + + + + | COMMENT | 1 | | [facility] | | | (ICTERUS) | | | LABORATORY | | | | | | SERVICES, | | | | | | CORE | | + + + + + + | COMMENT | 1 | | [facility] | | | (LIPEMIA) | | | LABORATORY | | | | | | SERVICES, | | | | | | CORE | | + + + + + + + + | Specimen | + + | Blood | + + + + + + + | Performing | Address | City/State/Zipcode | Phone Number | | Organization | | | | + + + + + | [facility] | [address] | [place] [address] | | | SERVICES, CORE | [address] | | | + + + + + HIV-1,2 AB/HIV-1 P24 AG SCRLaura (03/07/2018 11:18 AM PDT) + + + + + + | Component | Value | Ref Range | Performed | Pathologist | | | | | At | Signature | + + + + + + | HIV-1,2 | Negative | Negative | [facility] | | | AB/HIV-1 | | | LABORATORY | | | P24 AG | | | SERVICES, | | | SCREEN | | | SPECIAL IMM | | | | | | + [place] | | + + + + + + + + | Specimen | + + | Blood | + + + + + | Narrative | Performed At | + + + | HIV-1 p24 Ag and HIV-1,2 Ab not detected. Test modified from | [facility] | | original network lead's approved specifications. The performance | LABORATORY | | of the VENEER REPAIRER MACHINE HIV Combo test, with or without confirmation, was not | SERVICES, | | tested in pediatric patients less than 2 years of age. [facility] | SPECIAL IMM + | | guidelines recommend virologic assays (i.e. HIV 1 VIRAL LOAD) that | [facility] | | directly detect HIV for diagnosis of HIV infection in infants younger | | | than 2 years. | | + + + + + + + + | Performing | Address | City/State/Zipcode | Phone Number | | Organization | | | | + + + + + | [facility] | [address] [facility] | [place] [address] | | | SERVICES, SPECIAL | [address] | | | | IMM + [place] | | | | + + + + + CAPILLARY BLOOD GLUCOSE (NO CHG), POC (03/07/2018 11:10 AM PDT) + +---------+ + + + | Component | Value | Ref Range | Performed | Pathologist | | | | | At | Signature | + +---------+ + + + | BLOOD | 121 (H) | 70 - 99 mg/dL | [facility] - | | | GLUCOSE, | | | [place] | | | POC | | | [facility] | | | | | | OF CARE | | | | | | TESTS | | + +---------+ + + + + + | Specimen | + + | | + + + + + + + | Performing | Address | City/State/Zipcode | Phone Number | | Organization | | | | + + + + + | [facility] | [address] | [place], [place] | | | [facility] | [facility] | [address] | | | TESTS | | | | + + + + + CAPILLARY BLOOD GLUCOSE (NO CHG), POC (03/07/2018 10:07 AM PDT) + +---------+ + + + | Component | Value | Ref Range | Performed | Pathologist | | | | | At | Signature | + +---------+ + + + | BLOOD | 144 (H) | 70 - 99 mg/dL | [facility] - | | | GLUCOSE, | | | [facility] | | | POC | | | [facility] | | | | | | OF CARE | | | | | | TESTS | | + +---------+ + + + + + | Specimen | + + | | + + + + + + + | Performing | Address | City/State/Zipcode | Phone Number | | Organization | | | | + + + + + | [facility] | [address] | [place], [place] | | | [facility] | [address] | [address] | | | TESTS | | | | + + + + + CAPILLARY BLOOD GLUCOSE (NO CHG), POC (03/07/2018 8:04 AM PDT) + +---------+ + + + | Component | Value | Ref Range | Performed | Pathologist | | | | | At | Signature | + +---------+ + + + | BLOOD | 153 (H) | 70 - 99 mg/dL | [facility] - | | | GLUCOSE, | | | [place] | | | POC | | | [facility] | | | | | | OF CARE | | | | | | TESTS | | + +---------+ + + + + + | Specimen | + + | | + + + + + + + | Performing | Address | City/State/Zipcode | Phone Number | | Organization | | | | + + + + + | [facility] | [address] | [place], [place] | | | [facility] | [address] | [address] | | | TESTS | | | | + + + + + CAPILLARY BLOOD GLUCOSE (NO CHG), POC (03/07/2018 6:53 AM PDT) + +---------+ + + + | Component | Value | Ref Range | Performed | Pathologist | | | | | At | Signature | + +---------+ + + + | BLOOD | 136 (H) | 70 - 99 mg/dL | [facility] - | | | GLUCOSE, | | | [place] | | | POC | | | [facility] | | | | | | OF CARE | | | | | | TESTS | | + +---------+ + + + + + | Specimen | + + | | + + + + + + + | Performing | Address | City/State/Zipcode | Phone Number | | Organization | | | | + + + + + | [facility] | [address] | [place], [place] | | | [facility] | [facility] | [address] | | | TESTS | | | | + + + + + CAPILLARY BLOOD GLUCOSE (NO CHG), POC (03/07/2018 5:49 AM PDT) + +---------+ + + + | Component | Value | Ref Range | Performed | Pathologist | | | | | At | Signature | + +---------+ + + + | BLOOD | 112 (H) | 70 - 99 mg/dL | [facility] - | | | GLUCOSE, | | | [facility] | | | POC | | | [facility] | | | | | | OF CARE | | | | | | TESTS | | + +---------+ + + + + + | Specimen | + + | | + + + + + + + | Performing | Address | City/State/Zipcode | Phone Number | | Organization | | | | + + + + + | [facility] | [address] | [place], [place] | | | [facility] | [address] | [address] | | | TESTS | | | | + + + + + RENAL FUNCTION SET (NA,K,CL,CO2,BUN,CREAT,GLUC,CA,PHOS,ALB ) (03/07/2018 5:06 AM PDT) + +---------+ + + + | Component | Value | Ref Range | Performed | Pathologist | | | | | At | Signature | + +---------+ + + + | GLUCOSE, | 112 (H) | 70 - 99 mg/dL | [facility] | | | PLASMA | | | LABORATORY | | | (LAB) | | | SERVICES, | | | | | | CORE | | + +---------+ + + + | BUN, PLASMA | 47 (H) | 6 - 20 mg/dL | [facility] | | | (LAB) | | | LABORATORY | | | | | | SERVICES, | | | | | | CORE | | + +---------+ + + + | CREATININE | 1.05 | 0.60 - 1.10 | [facility] | | | PLASMA | | mg/dL | LABORATORY | | | (LAB) | | | SERVICES, | | | | | | CORE | | + +---------+ + + + | EGFR | >60 | >60 mL/min | [facility] | | | - | | | LABORATORY | | | [place] | | | SERVICES, | | | | | | CORE | | + +---------+ + + + | EGFR NON | 53 (L) | >60 mL/min | [facility] | | | -JOSEPH | | | LABORATORY | | | [facility] | | | SERVICES, | | | | | | CORE | | + +---------+ + + + | SODIUM, | 141 | 136 - 145 | [facility] | | | PLASMA | | mmol/L | LABORATORY | | | (LAB) | | | SERVICES, | | | | | | CORE | | + +---------+ + + + | POTASSIUM, | 4.2 | 3.4 - 5.0 | [facility] | | | PLASMA | | mmol/L | LABORATORY | | | (LAB) | | | SERVICES, | | | | | | CORE | | + +---------+ + + + | CHLORIDE, | 108 | 97 - 108 mmol/L | [facility] | | | PLASMA | | | LABORATORY | | | (LAB) | | | SERVICES, | | | | | | CORE | | + +---------+ + + + | TOTAL CO2, | 28 | 21 - 32 mmol/L | [facility] | | | PLASMA | | | LABORATORY | | | (LAB) | | | SERVICES, | | | | | | CORE | | + +---------+ + + + | CALCIUM, | 8.7 | 8.6 - 10.2 | [facility] | | | PLASMA | | mg/dL | LABORATORY | | | (LAB) | | | SERVICES, | | | | | | CORE | | + +---------+ + + + | CALCIUM(ALB | 9.7 | 8.6 - 10.2 | [facility] | | | CORRECTED) | | mg/dL | LABORATORY | | | | | | SERVICES, | | | | | | CORE | | + +---------+ + + + | ALBUMIN, | 2.8 (L) | 3.5 - 4.7 g/dL | [facility] | | | PLASMA | | | LABORATORY | | | (LAB) | | | SERVICES, | | | | | | CORE | | + +---------+ + + + | PHOSPHORUS, | 2.8 | 2.4 - 4.7 mg/dL | [facility] | | | PLASMA | | | LABORATORY | | | (LAB) | | | SERVICES, | | | | | | CORE | | + +---------+ + + + | POTASSIUM | No Hemo | | [facility] | | | CMNT | | | LABORATORY | | | | | | SERVICES, | | | | | | CORE | | + +---------+ + + + | ANION GAP | 5 | 4 - 11 mmol/L | [facility] | | | | | | LABORATORY | | | | | | SERVICES, | | | | | | CORE | | + +---------+ + + + | ANION | 8 | 4 - 11 mmol/L | [facility] | | | GAP(ALB | | | LABORATORY | | | CORRECTED) | | | SERVICES, | | | | | | CORE | | + +---------+ + + + + + | Specimen | + + | Blood | + + + + + | Narrative | Performed At | + + + | GFR is estimated using the MDRD equation recommended by the | [facility] | | National Kidney Disease Education Program. Estimated GFR | LABORATORY | | Interpretive Information: <60 mL/min/1.73 sq | SERVICES, CORE | | m Chronic Kidney Disease <15 mL/min/1.73 | | | sq m Kidney Failure Estimated GFR greater | | | that 60 mL/min/1.73 sq m is of limited clinical value. The MDRD | | | equation is not valid in the following situations: - Patients under | | | 18 years of age - Severe malnutrition or obesity - Vegetarian diet | | | - Rapidly changing kidney function - Amputees, paraplegics, or other | | | muscle-wasting diseses | | + + + + + + + + | Performing | Address | City/State/Zipcode | Phone Number | | Organization | | | | + + + + + | [facility] | [address] | [place] [address] | | | SERVICES, CORE | [address] | | | + + + + + CAPILLARY BLOOD GLUCOSE (NO CHG), POC (03/07/2018 4:39 AM PDT) + +-------+ + + + | Component | Value | Ref Range | Performed | Pathologist | | | | | At | Signature | + +-------+ + + + | BLOOD | 95 | 70 - 99 mg/dL | [facility] - | | | GLUCOSE, | | | [facility] | | | POC | | | [facility] | | | | | | OF CARE | | | | | | TESTS | | + +-------+ + + + + + | Specimen | + + | | + + + + + + + | Performing | Address | City/State/Zipcode | Phone Number | | Organization | | | | + + + + + | [facility] | [address] | [place], [place] | | | [facility] | [facility] | [address] | | | TESTS | | | | + + + + + CAPILLARY BLOOD GLUCOSE (NO CHG), POC (03/07/2018 3:30 AM PDT) + +---------+ + + + | Component | Value | Ref Range | Performed | Pathologist | | | | | At | Signature | + +---------+ + + + | BLOOD | 116 (H) | 70 - 99 mg/dL | [facility] - | | | GLUCOSE, | | | [place] | | | POC | | | [facility] | | | | | | OF CARE | | | | | | TESTS | | + +---------+ + + + + + | Specimen | + + | | + + + + + + + | Performing | Address | City/State/Zipcode | Phone Number | | Organization | | | | + + + + + | [facility] | [address] | [place], [place] | | | [facility] | [address] | [address] | | | TESTS | | | | + + + + + CAPILLARY BLOOD GLUCOSE (NO CHG), POC (03/07/2018 2:24 AM PDT) + +---------+ + + + | Component | Value | Ref Range | Performed | Pathologist | | | | | At | Signature | + +---------+ + + + | BLOOD | 130 (H) | 70 - 99 mg/dL | [facility] - | | | GLUCOSE, | | | [place] | | | POC | | | [facility] | | | | | | OF CARE | | | | | | TESTS | | + +---------+ + + + + + | Specimen | + + | | + + + + + + + | Performing | Address | City/State/Zipcode | Phone Number | | Organization | | | | + + + + + | [facility] | [address] | [place], [place] | | | [facility] | [address] | [address] | | | TESTS | | | | + + + + + CAPILLARY BLOOD GLUCOSE (NO CHG), POC (03/07/2018 1:37 AM PDT) + +---------+ + + + | Component | Value | Ref Range | Performed | Pathologist | | | | | At | Signature | + +---------+ + + + | BLOOD | 165 (H) | 70 - 99 mg/dL | [facility] - | | | GLUCOSE, | | | [place] | | | POC | | | [facility] | | | | | | OF CARE | | | | | | TESTS | | + +---------+ + + + + + | Specimen | + + | | + + + + + + + | Performing | Address | City/State/Zipcode | Phone Number | | Organization | | | | + + + + + | [facility] | [address] | [place], [place] | | | [facility] | [address] | [address] | | | TESTS | | | | + + + + + CAPILLARY BLOOD GLUCOSE (NO CHG), POC (03/07/2018 1:07 AM PDT) + +---------+ + + + | Component | Value | Ref Range | Performed | Pathologist | | | | | At | Signature | + +---------+ + + + | BLOOD | 155 (H) | 70 - 99 mg/dL | [facility] - | | | GLUCOSE, | | | [facility] | | | POC | | | [facility] | | | | | | OF CARE | | | | | | TESTS | | + +---------+ + + + + + | Specimen | + + | | + + + + + + + | Performing | Address | City/State/Zipcode | Phone Number | | Organization | | | | + + + + + | [facility] | [address] | [place], [place] | | | [facility] | [address] | [address] | | | TESTS | | | | + + + + + CAPILLARY BLOOD GLUCOSE (NO CHG), POC (03/07/2018 12:01 AM PDT) + +---------+ + + + | Component | Value | Ref Range | Performed | Pathologist | | | | | At | Signature | + +---------+ + + + | BLOOD | 163 (H) | 70 - 99 mg/dL | [facility] - | | | GLUCOSE, | | | [place] | | | POC | | | [facility] | | | | | | OF CARE | | | | | | TESTS | | + +---------+ + + + + + | Specimen | + + | | + + + + + + + | Performing | Address | City/State/Zipcode | Phone Number | | Organization | | | | + + + + + | [facility] | [address] | [place], [place] | | | [facility] | [address] | [address] | | | TESTS | | | | + + + + + CAPILLARY BLOOD GLUCOSE (NO CHG), POC (03/06/2018 11:17 PM PDT) + +---------+ + + + | Component | Value | Ref Range | Performed | Pathologist | | | | | At | Signature | + +---------+ + + + | BLOOD | 208 (H) | 70 - 99 mg/dL | [facility] - | | | GLUCOSE, | | | [facility] | | | POC | | | [facility] | | | | | | OF CARE | | | | | | TESTS | | + +---------+ + + + + + | Specimen | + + | | + + + + + + + | Performing | Address | City/State/Zipcode | Phone Number | | Organization | | | | + + + + + | [facility] | [address] | [place], [place] | | | [facility] | [address] | [address] | | | TESTS | | | | + + + + + CAPILLARY BLOOD GLUCOSE (NO CHG), POC (03/06/2018 10:44 PM PDT) + +---------+ + + + | Component | Value | Ref Range | Performed | Pathologist | | | | | At | Signature | + +---------+ + + + | BLOOD | 197 (H) | 70 - 99 mg/dL | [facility] | | | GLUCOSE, | | | [facility] | | | POC | | | [facility] | | | | | | [facility] | | | | | | TESTS | | + +---------+ + + + + + | Specimen | + + | | + + + + + + + | Performing | Address | City/State/Zipcode | Phone Number | | Organization | | | | + + + + + | [facility] | [address] | [place], [place] | | | [facility] | [address] | [address] | | | TESTS | | | | + + + + + CAPILLARY BLOOD GLUCOSE (NO CHG), POC (03/06/2018 10:01 PM PDT) + +---------+ + + + | Component | Value | Ref Range | Performed | Pathologist | | | | | At | Signature | + +---------+ + + + | BLOOD | 192 (H) | 70 - 99 mg/dL | [facility] | | | GLUCOSE, | | | [place] | | | POC | | | [facility] | | | | | | [facility] | | | | | | TESTS | | + +---------+ + + + + + | Specimen | + + | | + + + + + + + | Performing | Address | City/State/Zipcode | Phone Number | | Organization | | | | + + + + + | [facility] | [address] | [place], [place] | | | [facility] | [address] | [phone] | | | TESTS | | | | + + + + + CAPILLARY BLOOD GLUCOSE (NO CHG), POC (03/06/2018 9:26 PM PDT) + +---------+ + + + | Component | Value | Ref Range | Performed | Pathologist | | | | | At | Signature | + +---------+ + + + | BLOOD | 194 (H) | 70 - 99 mg/dL | [facility] - | | | GLUCOSE, | | | [place] | | | POC | | | [facility] | | | | | | [facility] | | | | | | TESTS | | + +---------+ + + + + + | Specimen | + + | | + + + + + + + | Performing | Address | City/State/Zipcode | Phone Number | | Organization | | | | + + + + + | [facility] | [address] | [place], [place] | | | [facility] | [address] | [phone] | | | TESTS | | | | + + + + + CAPILLARY BLOOD GLUCOSE (NO CHG), POC (03/06/2018 8:45 PM PDT) + +---------+ + + + | Component | Value | Ref Range | Performed | Pathologist | | | | | At | Signature | + +---------+ + + + | BLOOD | 212 (H) | 70 - 99 mg/dL | [facility] - | | | GLUCOSE, | | | [place] | | | POC | | | [facility] | | | | | | [facility] | | | | | | TESTS | | + +---------+ + + + + + | Specimen | + + | | + + + + + + + | Performing | Address | City/State/Zipcode | Phone Number | | Organization | | | | + + + + + | [facility] | [address] | [place], [place] | | | [facility] | [address] | [phone] | | | TESTS | | | | + + + + + CAPILLARY BLOOD GLUCOSE (NO CHG), POC (03/06/2018 8:11 PM PDT) + +---------+ + + + | Component | Value | Ref Range | Performed | Pathologist | | | | | At | Signature | + +---------+ + + + | BLOOD | 181 (H) | 70 - 99 mg/dL | [facility] | | | GLUCOSE, | | | [facility] | | | POC | | | [facility] | | | | | | [facility] | | | | | | TESTS | | + +---------+ + + + + + | Specimen | + + | | + + + + + + + | Performing | Address | City/State/Zipcode | Phone Number | | Organization | | | | + + + + + | [facility] | [address] | [place], [place] | | | [facility] | [address] | [phone] | | | TESTS | | | | + + + + + CAPILLARY BLOOD GLUCOSE (NO CHG), POC (03/06/2018 7:16 PM PDT) + +---------+ + + + | Component | Value | Ref Range | Performed | Pathologist | | | | | At | Signature | + +---------+ + + + | BLOOD | 157 (H) | 70 - 99 mg/dL | [facility] - | | | GLUCOSE, | | | [facility] | | | POC | | | [facility] | | | | | | [facility]ARE | | | | | | TESTS | | + +---------+ + + + + + | Specimen | + + | | + + + + + + + | Performing | Address | City/State/Zipcode | Phone Number | | Organization | | | | + + + + + | [facility] | [address] | [place], [place] | | | [facility] | [address] | [address] | | | TESTS | | | | + + + + + CAPILLARY BLOOD GLUCOSE (NO CHG), POC (03/06/2018 6:41 PM PDT) + +---------+ + + + | Component | Value | Ref Range | Performed | Pathologist | | | | | At | Signature | + +---------+ + + + | BLOOD | 196 (H) | 70 - 99 mg/dL | [facility] | | | GLUCOSE, | | | [facility] | | | POC | | | [facility] | | | | | | OF CARE | | | | | | TESTS | | + +---------+ + + + + + | Specimen | + + | | + + + + + + + | Performing | Address | City/State/Zipcode | Phone Number | | Organization | | | | + + + + + | [facility] | [address] | [place], [place] | | | [facility] | [address] | [address] | | | TESTS | | | | + + + + + CAPILLARY BLOOD GLUCOSE (NO CHG), POC (03/06/2018 5:43 PM PDT) + +---------+ + + + | Component | Value | Ref Range | Performed | Pathologist | | | | | At | Signature | + +---------+ + + + | BLOOD | 170 (H) | 70 - 99 mg/dL | [facility] | | | GLUCOSE, | | | [facility] | | | POC | | | [facility] | | | | | | OF CARE | | | | | | TESTS | | + +---------+ + + + + + | Specimen | + + | | + + + + + + + | Performing | Address | City/State/Zipcode | Phone Number | | Organization | | | | + + + + + | [facility] | [address] | [place], [place] | | | [facility] | [address] | [address] | | | TESTS | | | | + + + + + CAPILLARY BLOOD GLUCOSE (NO CHG), POC (03/06/2018 5:10 PM PDT) + +---------+ + + + | Component | Value | Ref Range | Performed | Pathologist | | | | | At | Signature | + +---------+ + + + | BLOOD | 200 (H) | 70 - 99 mg/dL | [facility] - | | | GLUCOSE, | | | [facility] | | | POC | | | [facility] | | | | | | OF CARE | | | | | | TESTS | | + +---------+ + + + + + | Specimen | + + | | + + + + + + + | Performing | Address | City/State/Zipcode | Phone Number | | Organization | | | | + + + + + | [facility] | [address] | [place], [place] | | | [facility] | [address] | [address] | | | TESTS | | | | + + + + + CAPILLARY BLOOD GLUCOSE (NO CHG), POC (03/06/2018 4:39 PM PDT) + +---------+ + + + | Component | Value | Ref Range | Performed | Pathologist | | | | | At | Signature | + +---------+ + + + | BLOOD | 209 (H) | 70 - 99 mg/dL | [facility] | | | GLUCOSE, | | | [facility] | | | POC | | | [facility] | | | | | | OF CARE | | | | | | TESTS | | + +---------+ + + + + + | Specimen | + + | | + + + + + + + | Performing | Address | City/State/Zipcode | Phone Number | | Organization | | | | + + + + + | [facility] | [address] | [place], [place] | | | [facility] | [address] | [address] | | | TESTS | | | | + + + + + CAPILLARY BLOOD GLUCOSE (NO CHG), POC (03/06/2018 4:09 PM PDT) + +---------+ + + + | Component | Value | Ref Range | Performed | Pathologist | | | | | At | Signature | + +---------+ + + + | BLOOD | 241 (H) | 70 - 99 mg/dL | [facility] | | | GLUCOSE, | | | [facility] | | | POC | | | [facility] | | | | | | OF CARE | | | | | | TESTS | | + +---------+ + + + + + | Specimen | + + | | + + + + + + + | Performing | Address | City/State/Zipcode | Phone Number | | Organization | | | | + + + + + | [facility] | [address] | [place], [place] | | | [facility] | [address] | [address] | | | TESTS | | | | + + + + + CAPILLARY BLOOD GLUCOSE (NO CHG), POC (03/06/2018 3:30 PM PDT) + +---------+ + + + | Component | Value | Ref Range | Performed | Pathologist | | | | | At | Signature | + +---------+ + + + | BLOOD | 237 (H) | 70 - 99 mg/dL | [facility] | | | GLUCOSE, | | | [facility] | | | POC | | | [facility] | | | | | | OF CARE | | | | | | TESTS | | + +---------+ + + + + + | Specimen | + + | | + + + + + + + | Performing | Address | City/State/Zipcode | Phone Number | | Organization | | | | + + + + + | [facility] | [address] | [place], [place] | | | [facility] | [address] | [address] | | | TESTS | | | | + + + + + CAPILLARY BLOOD GLUCOSE (NO CHG), POC (03/06/2018 3:02 PM PDT) + +---------+ + + + | Component | Value | Ref Range | Performed | Pathologist | | | | | At | Signature | + +---------+ + + + | BLOOD | 259 (H) | 70 - 99 mg/dL | [facility] | | | GLUCOSE, | | | [facility] | | | POC | | | [facility] | | | | | | OF CARE | | | | | | TESTS | | + +---------+ + + + + + | Specimen | + + | | + + + + + + + | Performing | Address | City/State/Zipcode | Phone Number | | Organization | | | | + + + + + | [facility] | [address] | [place], [place] | | | [facility] | [address] | [address] | | | TESTS | | | | + + + + + CAPILLARY BLOOD GLUCOSE (NO CHG), POC (03/06/2018 2:09 PM PDT) + +---------+ + + + | Component | Value | Ref Range | Performed | Pathologist | | | | | At | Signature | + +---------+ + + + | BLOOD | 323 (H) | 70 - 99 mg/dL | [facility] | | | GLUCOSE, | | | [facility] | | | POC | | | [facility] | | | | | | OF CARE | | | | | | TESTS | | + +---------+ + + + + + | Specimen | + + | | + + + + + + + | Performing | Address | City/State/Zipcode | Phone Number | | Organization | | | | + + + + + | [facility] | [address] | [place], [place] | | | [facility] | [facility] | [address] | | | TESTS | | | | + + + + + CAPILLARY BLOOD GLUCOSE (NO CHG), POC (03/06/2018 1:30 PM PDT) + +---------+ + + + | Component | Value | Ref Range | Performed | Pathologist | | | | | At | Signature | + +---------+ + + + | BLOOD | 322 (H) | 70 - 99 mg/dL | [facility] - | | | GLUCOSE, | | | [facility] | | | POC | | | [facility] | | | | | | OF CARE | | | | | | TESTS | | + +---------+ + + + + + | Specimen | + + | | + + + + + + + | Performing | Address | City/State/Zipcode | Phone Number | | Organization | | | | + + + + + | [facility] | [address] | [place], [place] | | | [facility] | [address] | [address] | | | TESTS | | | | + + + + + CAPILLARY BLOOD GLUCOSE (NO CHG), POC (03/06/2018 12:40 PM PDT) + +---------+ + + + | Component | Value | Ref Range | Performed | Pathologist | | | | | At | Signature | + +---------+ + + + | BLOOD | 262 (H) | 70 - 99 mg/dL | [facility] | | | GLUCOSE, | | | [facility] | | | POC | | | [facility] | | | | | | OF CARE | | | | | | TESTS | | + +---------+ + + + + + | Specimen | + + | | + + + + + + + | Performing | Address | City/State/Zipcode | Phone Number | | Organization | | | | + + + + + | [facility] | [address] | [place], [place] | | | [facility] | [address] | [address] | | | TESTS | | | | + + + + + CAPILLARY BLOOD GLUCOSE (NO CHG), POC (03/06/2018 10:11 AM PDT) + +---------+ + + + | Component | Value | Ref Range | Performed | Pathologist | | | | | At | Signature | + +---------+ + + + | BLOOD | 153 (H) | 70 - 99 mg/dL | [facility] - | | | GLUCOSE, | | | [facility] | | | POC | | | [facility] | | | | | | OF CARE | | | | | | TESTS | | + +---------+ + + + + + | Specimen | + + | | + + + + + + + | Performing | Address | City/State/Zipcode | Phone Number | | Organization | | | | + + + + + | [facility] | [address] | [place], [place] | | | [facility] | [address] | [address] | | | TESTS | | | | + + + + + CAPILLARY BLOOD GLUCOSE (NO CHG), POC (03/06/2018 8:37 AM PDT) + +---------+ + + + | Component | Value | Ref Range | Performed | Pathologist | | | | | At | Signature | + +---------+ + + + | BLOOD | 179 (H) | 70 - 99 mg/dL | [facility] - | | | GLUCOSE, | | | [facility] | | | POC | | | [facility] | | | | | | OF CARE | | | | | | TESTS | | + +---------+ + + + + + | Specimen | + + | | + + + + + + + | Performing | Address | City/State/Zipcode | Phone Number | | Organization | | | | + + + + + | [facility] | [address] | [place], [place] | | | [facility] | [address] | [address] | | | TESTS | | | | + + + + + CAPILLARY BLOOD GLUCOSE (NO CHG), POC (03/06/2018 6:48 AM PDT) + +---------+ + + + | Component | Value | Ref Range | Performed | Pathologist | | | | | At | Signature | + +---------+ + + + | BLOOD | 162 (H) | 70 - 99 mg/dL | [facility] | | | GLUCOSE, | | | [facility] | | | POC | | | [facility] | | | | | | OF CARE | | | | | | TESTS | | + +---------+ + + + + + | Specimen | + + | | + + + + + + + | Performing | Address | City/State/Zipcode | Phone Number | | Organization | | | | + + + + + | [facility] | [address] | [place], [place] | | | [facility] | [address] | [address] | | | TESTS | | | | + + + + + CAPILLARY BLOOD GLUCOSE (NO CHG), POC (03/06/2018 5:48 AM PDT) + +---------+ + + + | Component | Value | Ref Range | Performed | Pathologist | | | | | At | Signature | + +---------+ + + + | BLOOD | 156 (H) | 70 - 99 mg/dL | [facility] - | | | GLUCOSE, | | | [facility] | | | POC | | | [facility] | | | | | | OF CARE | | | | | | TESTS | | + +---------+ + + + + + | Specimen | + + | | + + + + + + + | Performing | Address | City/State/Zipcode | Phone Number | | Organization | | | | + + + + + | [facility] | [address] | [place], [place] | | | [facility] | [address] | [address] | | | TESTS | | | | + + + + + RENAL FUNCTION SET (NA,K,CL,CO2,BUN,CREAT,GLUC,CA,PHOS,ALB ) (03/06/2018 5:26 AM PDT) + +---------+ + + + | Component | Value | Ref Range | Performed | Pathologist | | | | | At | Signature | + +---------+ + + + | GLUCOSE, | 176 (H) | 70 - 99 mg/dL | [facility] | | | PLASMA | | | LABORATORY | | | (LAB) | | | SERVICES, | | | | | | CORE | | + +---------+ + + + | BUN, PLASMA | 45 (H) | 6 - 20 mg/dL | [facility] | | | (LAB) | | | LABORATORY | | | | | | SERVICES, | | | | | | CORE | | + +---------+ + + + | CREATININE | 1.02 | 0.60 - 1.10 | [facility] | | | PLASMA | | mg/dL | LABORATORY | | | (LAB) | | | SERVICES, | | | | | | CORE | | + +---------+ + + + | EGFR | >60 | >60 mL/min | [facility] | | | - | | | LABORATORY | | | [place] | | | SERVICES, | | | | | | CORE | | + +---------+ + + + | EGFR NON | 55 (L) | >60 mL/min | [facility] | | | -[facility] | | | LABORATORY | | | [facility] | | | SERVICES, | | | | | | CORE | | + +---------+ + + + | SODIUM, | 137 | 136 - 145 | [facility] | | | PLASMA | | mmol/L | LABORATORY | | | (LAB) | | | SERVICES, | | | | | | CORE | | + +---------+ + + + | POTASSIUM, | 4.3 | 3.4 - 5.0 | [facility] | | | PLASMA | | mmol/L | LABORATORY | | | (LAB) | | | SERVICES, | | | | | | CORE | | + +---------+ + + + | CHLORIDE, | 106 | 97 - 108 mmol/L | [facility] | | | PLASMA | | | LABORATORY | | | (LAB) | | | SERVICES, | | | | | | CORE | | + +---------+ + + + | TOTAL CO2, | 25 | 21 - 32 mmol/L | [facility] | | | PLASMA | | | LABORATORY | | | (LAB) | | | SERVICES, | | | | | | CORE | | + +---------+ + + + | CALCIUM, | 9.1 | 8.6 - 10.2 | [facility] | | | PLASMA | | mg/dL | LABORATORY | | | (LAB) | | | SERVICES, | | | | | | CORE | | + +---------+ + + + | CALCIUM(ALB | 10.0 | 8.6 - 10.2 | [facility] | | | CORRECTED) | | mg/dL | LABORATORY | | | | | | SERVICES, | | | | | | CORE | | + +---------+ + + + | ALBUMIN, | 2.9 (L) | 3.5 - 4.7 g/dL | [facility] | | | PLASMA | | | LABORATORY | | | (LAB) | | | SERVICES, | | | | | | CORE | | + +---------+ + + + | PHOSPHORUS, | 2.6 | 2.4 - 4.7 mg/dL | [facility] | | | PLASMA | | | LABORATORY | | | (LAB) | | | SERVICES, | | | | | | CORE | | + +---------+ + + + | POTASSIUM | No Hemo | | [facility] | | | CMNT | | | LABORATORY | | | | | | SERVICES, | | | | | | CORE | | + +---------+ + + + | ANION GAP | 6 | 4 - 11 mmol/L | [facility] | | | | | | LABORATORY | | | | | | SERVICES, | | | | | | CORE | | + +---------+ + + + | ANION | 8 | 4 - 11 mmol/L | [facility] | | | GAP(ALB | | | LABORATORY | | | CORRECTED) | | | SERVICES, | | | | | | CORE | | + +---------+ + + + + + | Specimen | + + | Blood | + + + + + | Narrative | Performed At | + + + | GFR is estimated using the MDRD equation recommended by the | [facility] | | National Kidney Disease Education Program. Estimated GFR | LABORATORY | | Interpretive Information: <60 mL/min/1.73 sq | SERVICES, CORE | | m Chronic Kidney Disease <15 mL/min/1.73 | | | sq m Kidney Failure Estimated GFR greater | | | that 60 mL/min/1.73 sq m is of limited clinical value. The MDRD | | | equation is not valid in the following situations: - Patients under | | | 18 years of age - Severe malnutrition or obesity - Vegetarian diet | | | - Rapidly changing kidney function - Amputees, paraplegics, or other | | | muscle-wasting diseses | | + + + + + + + + | Performing | Address | City/State/Zipcode | Phone Number | | Organization | | | | + + + + + | [facility] | [address] | [place] [address] | | | [place] | [address] | | | + + + + + IGA, SERUM (03/06/2018 5:26 AM PDT) + +-------+ + + + | Component | Value | Ref Range | Performed | Pathologist | | | | | At | Signature | + +-------+ + + + | IGA SERUM | 271 | 70 - 400 mg/dL | [facility] | | | | | | [facility] | | | | | | [place] | | + +-------+ + + + + + | Specimen | + + | Blood | + + + + + + + | Performing | Address | City/State/Zipcode | Phone Number | | Organization | | | | + + + + + | [facility] - | [address] | [place] [address] | | | [place] | | | | + + + + + CAPILLARY BLOOD GLUCOSE (NO CHG), POC (03/06/2018 4:40 AM PDT) + +---------+ + + + | Component | Value | Ref Range | Performed | Pathologist | | | | | At | Signature | + +---------+ + + + | BLOOD | 162 (H) | 70 - 99 mg/dL | [facility] - | | | GLUCOSE, | | | [facility] | | | POC | | | [facility] | | | | | | OF CARE | | | | | | TESTS | | + +---------+ + + + + + | Specimen | + + | | + + + + + + + | Performing | Address | City/State/Zipcode | Phone Number | | Organization | | | | + + + + + | [facility] | [address] | [place], [place] | | | [facility] | [address] | [address] | | | TESTS | | | | + + + + + CAPILLARY BLOOD GLUCOSE (NO CHG), POC (03/06/2018 3:23 AM PDT) + +---------+ + + + | Component | Value | Ref Range | Performed | Pathologist | | | | | At | Signature | + +---------+ + + + | BLOOD | 167 (H) | 70 - 99 mg/dL | [facility] - | | | GLUCOSE, | | | [facility] | | | POC | | | [facility] | | | | | | OF CARE | | | | | | TESTS | | + +---------+ + + + + + | Specimen | + + | | + + + + + + + | Performing | Address | City/State/Zipcode | Phone Number | | Organization | | | | + + + + + | [facility] | [address] | [place], [place] | | | [facility] | [address] | [address] | | | TESTS | | | | + + + + + CAPILLARY BLOOD GLUCOSE (NO CHG), POC (03/06/2018 2:15 AM PDT) + +---------+ + + + | Component | Value | Ref Range | Performed | Pathologist | | | | | At | Signature | + +---------+ + + + | BLOOD | 257 (H) | 70 - 99 mg/dL | [facility] - | | | GLUCOSE, | | | [facility] | | | POC | | | [facility] | | | | | | OF CARE | | | | | | TESTS | | + +---------+ + + + + + | Specimen | + + | | + + + + + + + | Performing | Address | City/State/Zipcode | Phone Number | | Organization | | | | + + + + + | [facility] | [address] | [place], [place] | | | [facility] | [facility] | [address] | | | TESTS | | | | + + + + + CAPILLARY BLOOD GLUCOSE (NO CHG), POC (03/06/2018 1:02 AM PDT) + +---------+ + + + | Component | Value | Ref Range | Performed | Pathologist | | | | | At | Signature | + +---------+ + + + | BLOOD | 222 (H) | 70 - 99 mg/dL | [facility] - | | | GLUCOSE, | | | [facility] | | | POC | | | [facility] | | | | | | OF CARE | | | | | | TESTS | | + +---------+ + + + + + | Specimen | + + | | + + + + + + + | Performing | Address | City/State/Zipcode | Phone Number | | Organization | | | | + + + + + | [facility] | [address] | [place], [place] | | | [facility] | [address] | [address] | | | TESTS | | | | + + + + + CAPILLARY BLOOD GLUCOSE (NO CHG), POC (03/05/2018 11:49 PM PDT) + +---------+ + + + | Component | Value | Ref Range | Performed | Pathologist | | | | | At | Signature | + +---------+ + + + | BLOOD | 249 (H) | 70 - 99 mg/dL | [facility] - | | | GLUCOSE, | | | [facility] | | | POC | | | [facility] | | | | | | OF CARE | | | | | | TESTS | | + +---------+ + + + + + | Specimen | + + | | + + + + + + + | Performing | Address | City/State/Zipcode | Phone Number | | Organization | | | | + + + + + | [facility] | [address] | [place], [place] | | | [facility] | [address] | [address] | | | TESTS | | | | + + + + + CAPILLARY BLOOD GLUCOSE (NO CHG), POC (03/05/2018 10:46 PM PDT) + +---------+ + + + | Component | Value | Ref Range | Performed | Pathologist | | | | | At | Signature | + +---------+ + + + | BLOOD | 260 (H) | 70 - 99 mg/dL | [facility] - | | | GLUCOSE, | | | [facility] | | | POC | | | [facility] | | | | | | OF CARE | | | | | | TESTS | | + +---------+ + + + + + | Specimen | + + | | + + + + + + + | Performing | Address | City/State/Zipcode | Phone Number | | Organization | | | | + + + + + | [facility] | [address] | [place], [place] | | | [facility] | [facility] | [address] | | | TESTS | | | | + + + + + CAPILLARY BLOOD GLUCOSE (NO CHG), POC (03/05/2018 10:10 PM PDT) + +---------+ + + + | Component | Value | Ref Range | Performed | Pathologist | | | | | At | Signature | + +---------+ + + + | BLOOD | 302 (H) | 70 - 99 mg/dL | [facility] - | | | GLUCOSE, | | | [facility] | | | POC | | | [facility] | | | | | | OF CARE | | | | | | TESTS | | + +---------+ + + + + + | Specimen | + + | | + + + + + + + | Performing | Address | City/State/Zipcode | Phone Number | | Organization | | | | + + + + + | [facility] | [address] | [place], [place] | | | [facility] | [address] | [address] | | | TESTS | | | | + + + + + CAPILLARY BLOOD GLUCOSE (NO CHG), POC (03/05/2018 9:40 PM PDT) + +---------+ + + + | Component | Value | Ref Range | Performed | Pathologist | | | | | At | Signature | + +---------+ + + + | BLOOD | 370 (H) | 70 - 99 mg/dL | [facility] - | | | GLUCOSE, | | | [facility] | | | POC | | | [facility] | | | | | | OF CARE | | | | | | TESTS | | + +---------+ + + + + + | Specimen | + + | | + + + + + + + | Performing | Address | City/State/Zipcode | Phone Number | | Organization | | | | + + + + + | [facility] | [address] | [place], [place] | | | [facility] | [address] | [address] | | | TESTS | | | | + + + + + CAPILLARY BLOOD GLUCOSE (NO CHG), SERGO (03/05/2018 8:50 PM PDT) + +---------+ + + + | Component | Value | Ref Range | Performed | Pathologist | | | | | At | Signature | + +---------+ + + + | BLOOD | 354 (H) | 70 - 99 mg/dL | [facility] - | | | GLUCOSE, | | | [facility] | | | POC | | | [facility] | | | | | | OF CARE | | | | | | TESTS | | + +---------+ + + + + + | Specimen | + + | | + + + + + + + | Performing | Address | City/State/Zipcode | Phone Number | | Organization | | | | + + + + + | [facility] | [address] | [place], [place] | | | [facility] | [facility] | [address] | | | TESTS | | | | + + + + + CAPILLARY BLOOD GLUCOSE (NO CHG), POC (03/05/2018 8:14 PM PDT) + +---------+ + + + | Component | Value | Ref Range | Performed | Pathologist | | | | | At | Signature | + +---------+ + + + | BLOOD | 421 (H) | 70 - 99 mg/dL | [facility] - | | | GLUCOSE, | | | [facility] | | | POC | | | [facility] | | | | | | OF CARE | | | | | | TESTS | | + +---------+ + + + + + | Specimen | + + | | + + + + + + + | Performing | Address | City/State/Zipcode | Phone Number | | Organization | | | | + + + + + | [facility] | [address] | [place], [place] | | | [facility] | [address] | [address] | | | TESTS | | | | + + + + + CAPILLARY BLOOD GLUCOSE (NO CHG), POC (03/05/2018 7:38 PM PDT) + +---------+ + + + | Component | Value | Ref Range | Performed | Pathologist | | | | | At | Signature | + +---------+ + + + | BLOOD | 435 (H) | 70 - 99 mg/dL | [facility] - | | | GLUCOSE, | | | [facility] | | | POC | | | [facility] | | | | | | OF CARE | | | | | | TESTS | | + +---------+ + + + + + | Specimen | + + | | + + + + + + + | Performing | Address | City/State/Zipcode | Phone Number | | Organization | | | | + + + + + | [facility] | [address] | [place], [place] | | | [facility] | [address] | [address] | | | TESTS | | | | + + + + + CAPILLARY BLOOD GLUCOSE (NO CHG), POC (03/05/2018 6:58 PM PDT) + +---------+ + + + | Component | Value | Ref Range | Performed | Pathologist | | | | | At | Signature | + +---------+ + + + | BLOOD | 374 (H) | 70 - 99 mg/dL | [facility] - | | | GLUCOSE, | | | [facility] | | | POC | | | [facility] | | | | | | [facility] | | | | | | TESTS | | + +---------+ + + + + + | Specimen | + + | | + + + + + + + | Performing | Address | City/State/Zipcode | Phone Number | | Organization | | | | + + + + + | [facility] | [address] | [place], [place] | | | [facility] | [facility] | [address] | | | TESTS | | | | + + + + + CAPILLARY BLOOD GLUCOSE (NO CHG), POC (03/05/2018 6:24 PM PDT) + +---------+ + + + | Component | Value | Ref Range | Performed | Pathologist | | | | | At | Signature | + +---------+ + + + | BLOOD | 458 (H) | 70 - 99 mg/dL | [facility] - | | | GLUCOSE, | | | [place] | | | POC | | | [facility] | | | | | | OF CARE | | | | | | TESTS | | + +---------+ + + + + + | Specimen | + + | | + + + + + + + | Performing | Address | City/State/Zipcode | Phone Number | | Organization | | | | + + + + + | [facility] | [address] | [place], [place] | | | [facility] | [address] | [address] | | | TESTS | | | | + + + + + CAPILLARY BLOOD GLUCOSE (NO CHG), POC (03/05/2018 4:59 PM PDT) + +---------+ + + + | Component | Value | Ref Range | Performed | Pathologist | | | | | At | Signature | + +---------+ + + + | BLOOD | 484 (H) | 70 - 99 mg/dL | [facility] - | | | GLUCOSE, | | | [place] | | | POC | | | [facility] | | | | | | OF [facility]ARE | | | | | | TESTS | | + +---------+ + + + + + | Specimen | + + | | + + + + + + + | Performing | Address | City/State/Zipcode | Phone Number | | Organization | | | | + + + + + | [facility] | [address] | [place], [place] | | | [facility] | [address] | [phone] | | | TESTS | | | | + + + + + CAPILLARY BLOOD GLUCOSE (NO CHG), POC (03/05/2018 12:21 PM PDT) + +---------+ + + + | Component | Value | Ref Range | Performed | Pathologist | | | | | At | Signature | + +---------+ + + + | BLOOD | 385 (H) | 70 - 99 mg/dL | [facility] - | | | GLUCOSE, | | | [facility] | | | POC | | | [facility] | | | | | | OF [facility]ARE | | | | | | TESTS | | + +---------+ + + + + + | Specimen | + + | | + + + + + + + | Performing | Address | City/State/Zipcode | Phone Number | | Organization | | | | + + + + + | [facility] | [address] | [place], [place] | | | [facility] | [facility] | [phone] | | | TESTS | | | | + + + + + BASIC METABOLIC SET (NA, K, CL, TCO2, BUN, CR, GLU, CA) (03/05/2018 8:47 AM PDT) + + + + + + | Component | Value | Ref Range | Performed | Pathologist | | | | | At | Signature | + + + + + + | GLUCOSE, | 386 (H) | 70 - 99 mg/dL | [facility] | | | PLASMA | | | LABORATORY | | | (LAB) | | | SERVICES, | | | | | | CORE | | + + + + + + | BUN, PLASMA | 36 (H) | 6 - 20 mg/dL | [facility] | | | (LAB) | | | LABORATORY | | | | | | SERVICES, | | | | | | CORE | | + + + + + + | CREATININE | 0.87 | 0.60 - 1.10 | [facility] | | | PLASMA | | mg/dL | LABORATORY | | | (LAB) | | | SERVICES, | | | | | | CORE | | + + + + + + | EGFR | >60 | >60 mL/min | [facility] | | | - | | | LABORATORY | | | [place] | | | SERVICES, | | | | | | CORE | | + + + + + + | EGFR NON | >60 | >60 mL/min | [facility] | | | -[facility] | | | LABORATORY | | | [facility] | | | SERVICES, | | | | | | CORE | | + + + + + + | SODIUM, | 133 (L) | 136 - 145 | [facility] | | | PLASMA | | mmol/L | LABORATORY | | | (LAB) | | | SERVICES, | | | | | | CORE | | + + + + + + | POTASSIUM, | 4.9 | 3.4 - 5.0 | [facility] | | | PLASMA | | mmol/L | LABORATORY | | | (LAB) | | | SERVICES, | | | | | | CORE | | + + + + + + | CHLORIDE, | 100 | 97 - 108 mmol/L | [facility] | | | PLASMA | | | LABORATORY | | | (LAB) | | | SERVICES, | | | | | | CORE | | + + + + + + | TOTAL CO2, | 24 | 21 - 32 mmol/L | [facility] | | | PLASMA | | | LABORATORY | | | (LAB) | | | SERVICES, | | | | | | CORE | | + + + + + + | CALCIUM, | 9.2 | 8.6 - 10.2 | [facility] | | | PLASMA | | mg/dL | LABORATORY | | | (LAB) | | | SERVICES, | | | | | | CORE | | + + + + + + | ANION GAP | 9 | 4 - 11 mmol/L | [facility] | | | | | | LABORATORY | | | | | | SERVICES, | | | | | | CORE | | + + + + + + | POTASSIUM | Mod Hemo | | [facility] | | | CMNT | | | LABORATORY | | | | | | SERVICES, | | | | | | CORE | | + + + + + + + + | Specimen | + + | Blood | + + + + + | Narrative | Performed At | + + + | Sample hemolyzed. Results for K, Total Bili, Direct Bili, AST, | [facility] | | LDH, or HDL may be inaccurate. Refer to comment under test result. | LABORATORY | | GFR is estimated using the MDRD equation recommended by the National | SERVICES, CORE | | Kidney Disease Education Program. Estimated GFR Interpretive | | | Information: <60 mL/min/1.73 sq m Chronic | | | Kidney Disease <15 mL/min/1.73 sq m | | | Kidney Failure Estimated GFR greater that 60 mL/min/1.73 sq m is of | | | limited clinical value. The MDRD equation is not valid in the | | | following situations: - Patients under 18 years of age - Severe | | | malnutrition or obesity - Vegetarian diet - Rapidly changing kidney | | | function - Amputees, paraplegics, or other muscle-wasting diseses | | + + + + + + + + | Performing | Address | City/State/Zipcode | Phone Number | | Organization | | | | + + + + + | [facility] | [address] | [place] [address] | | | SERVICES, [facility] [place] | [address] | | | + + + + + CAPILLARY BLOOD GLUCOSE (NO CHG), POC (03/05/2018 8:23 AM PDT) + +---------+ + + + | Component | Value | Ref Range | Performed | Pathologist | | | | | At | Signature | + +---------+ + + + | BLOOD | 329 (H) | 70 - 99 mg/dL | [facility] | | | GLUCOSE, | | | [facility] | | | POC | | | [facility] | | | | | | OF CARE | | | | | | TESTS | | + +---------+ + + + + + | Specimen | + + | | + + + + + + + | Performing | Address | City/State/Zipcode | Phone Number | | Organization | | | | + + + + + | [facility] | [address] | [place], [place] | | | [facility] | [address] | [phone] | | | TESTS | | | | + + + + + CAPILLARY BLOOD GLUCOSE (NO CHG), POC (03/05/2018 6:15 AM PDT) + +---------+ + + + | Component | Value | Ref Range | Performed | Pathologist | | | | | At | Signature | + +---------+ + + + | BLOOD | 297 (H) | 70 - 99 mg/dL | [facility] | | | GLUCOSE, | | | [facility] | | | POC | | | [facility] | | | | | | OF CARE | | | | | | TESTS | | + +---------+ + + + + + | Specimen | + + | | + + + + + + + | Performing | Address | City/State/Zipcode | Phone Number | | Organization | | | | + + + + + | [facility] | [address] | [place], [place] | | | [facility] | [address] | [phone] | | | TESTS | | | | + + + + + RENAL FUNCTION SET (NA,K,CL,CO2,BUN,CREAT,GLUC,CA,PHOS,ALB ) (03/05/2018 6:02 AM PDT) + + + + + + | Component | Value | Ref Range | Performed | Pathologist | | | | | At | Signature | + + + + + + | GLUCOSE, | 366 (H) | 70 - 99 mg/dL | [facility] | | | PLASMA | | | LABORATORY | | | (LAB) | | | SERVICES, | | | | | | CORE | | + + + + + + | BUN, PLASMA | 36 (H) | 6 - 20 mg/dL | [facility] | | | (LAB) | | | LABORATORY | | | | | | SERVICES, | | | | | | CORE | | + + + + + + | CREATININE | 0.69 | 0.60 - 1.10 | [facility] | | | PLASMA | | mg/dL | LABORATORY | | | (LAB) | | | SERVICES, | | | | | | CORE | | + + + + + + | EGFR | >60 | >60 mL/min | [facility] | | | - | | | LABORATORY | | | [place] | | | SERVICES, | | | | | | CORE | | + + + + + + | EGFR NON | >60 | >60 mL/min | [facility] | | | -[facility] | | | LABORATORY | | | [facility] | | | SERVICES, | | | | | | CORE | | + + + + + + | SODIUM, | 126 (L) | 136 - 145 | [facility] | | | PLASMA | | mmol/L | LABORATORY | | | (LAB) | | | SERVICES, | | | | | | CORE | | + + + + + + | POTASSIUM, | 6.5 (HH) | 3.4 - 5.0 | [facility] | | | PLASMA | | mmol/L | LABORATORY | | | (LAB) | | | SERVICES, | | | | | | CORE | | + + + + + + | CHLORIDE, | 101 | 97 - 108 mmol/L | [facility] | | | PLASMA | | | LABORATORY | | | (LAB) | | | SERVICES, | | | | | | CORE | | + + + + + + | TOTAL CO2, | 17 (L) | 21 - 32 mmol/L | [facility] | | | PLASMA | | | LABORATORY | | | (LAB) | | | SERVICES, | | | | | | CORE | | + + + + + + | CALCIUM, | 9.0 | 8.6 - 10.2 | [facility] | | | PLASMA | | mg/dL | LABORATORY | | | (LAB) | | | SERVICES, | | | | | | CORE | | + + + + + + | CALCIUM(ALB | 10.3 (H) | 8.6 - 10.2 | [facility] | | | CORRECTED) | | mg/dL | LABORATORY | | | | | | SERVICES, | | | | | | CORE | | + + + + + + | ALBUMIN, | 2.4 (L) | 3.5 - 4.7 g/dL | [facility] | | | PLASMA | | | LABORATORY | | | (LAB) | | | SERVICES, | | | | | | CORE | | + + + + + + | PHOSPHORUS, | 2.7 | 2.4 - 4.7 mg/dL | [facility] | | | PLASMA | | | LABORATORY | | | (LAB) | | | SERVICES, | | | | | | CORE | | + + + + + + | POTASSIUM | Mk Hemo | | [facility] | | | CMNT | | | LABORATORY | | | | | | SERVICES, | | | | | | CORE | | + + + + + + | ANION GAP | 8 | 4 - 11 mmol/L | [facility] | | | | | | LABORATORY | | | | | | SERVICES, | | | | | | CORE | | + + + + + + | ANION | 12 (H) | 4 - 11 mmol/L | [facility] | | | GAP(ALB | | | LABORATORY | | | CORRECTED) | | | SERVICES, | | | | | | CORE | | + + + + + + + + | Specimen | + + | Blood | + + + + + | Narrative | Performed At | + + + | Sample hemolyzed. Results for K, Total Bili, Direct Bili, AST, | [facility] | | LDH, or HDL may be inaccurate. Refer to comment under test result. | LABORATORY | | GFR is estimated using the MDRD equation recommended by the National | SERVICES, CORE | | Kidney Disease Education Program. Estimated GFR Interpretive | | | Information: <60 mL/min/1.73 sq m Chronic | | | Kidney Disease <15 mL/min/1.73 sq m | | | Kidney Failure Estimated GFR greater that 60 mL/min/1.73 sq m is of | | | limited clinical value. The MDRD equation is not valid in the | | | following situations: - Patients under 18 years of age - Severe | | | malnutrition or obesity - Vegetarian diet - Rapidly changing kidney | | | function - Amputees, paraplegics, or other muscle-wasting diseses | | + + + + + + + + | Performing | Address | City/State/Zipcode | Phone Number | | Organization | | | | + + + + + | [facility] | [address] | [place] [address] | | | SERVICES, CORE | [address] | | | + + + + + CAPILLARY BLOOD GLUCOSE (NO CHG), POC (03/05/2018 12:33 AM PDT) + +---------+ + + + | Component | Value | Ref Range | Performed | Pathologist | | | | | At | Signature | + +---------+ + + + | BLOOD | 305 (H) | 70 - 99 mg/dL | [facility] | | | GLUCOSE, | | | [facility] | | | POC | | | [facility] | | | | | | OF CARE | | | | | | TESTS | | + +---------+ + + + + + | Specimen | + + | | + + + + + + + | Performing | Address | City/State/Zipcode | Phone Number | | Organization | | | | + + + + + | [facility] | [address] | [place], [place] | | | [facility] | [address] | [phone] | | | TESTS | | | | + + + + + CT CHEST, ABDOMEN AND PELVIS W IV CONTRAST (03/04/2018 8:23 PM PDT) + + | Specimen | + + | | + + + + + | Narrative | Performed At | + + + | EXAM: CT of the chest, abdomen and pelvis with intravenous | [facility] | | contrast. HISTORY: 62 year old woman admitted on 02/10 due to | RADIOLOGY VOICE | | ARDS in the setting of metapneumovirus, she was extubated on 02/21 and | RECOGNITION | | has been progressively been encephalopathic Evaluate for | | | infection/abscess. COMPARISON: Chest radiograph 03/03/18 | | | TECHNIQUE: CT of the chest, abdomen and pelvis with non-ionic | | | iodinated intravenous contrast. Coronal and sagittal reformats were | | | created. FINDINGS: Tubes and lines: Nasogastric tube noted with | | | tip terminating in the proximal stomach. Visualized neck: Right | | | thyroid nodule demonstrate a ring calcification is noted. CHEST: | | | There is a rim calcified 10 mm right lobe thyroid nodule. The heart | | | and great vessels are unremarkable. No hilar, mediastinal, or axillary | | | adenopathy. Nodule within the right middle lobe measuring 8 mm | | | (72/4). Low lung volumes. Second right lower lobe nodule measuring 4 | | | mm (84/4). Bibasilar atelectasis. LIVER: Unremarkable. BILIARY: | | | Unremarkable. PANCREAS: Unremarkable. SPLEEN: Unremarkable. | | | ADRENALS: Nodular thickening of the adrenal glands, bilaterally. | | | KIDNEYS/URETERS: Unremarkable. PELVIC ORGANS/BLADDER: The uterus and | | | ovaries are surgically absent. GI TRACT: Unremarkable. Weighted | | | tip enteric tube with tip at gastric cardia. PERITONEUM: No free air | | | or fluid. LYMPH NODES: No lymphadenopathy. VESSELS: Moderate | | | atherosclerotic burden. No aneurysm. Contrast noted within the | | | mesenteric vasculature. BONES AND SOFT TISSUES: Chronic bilateral | | | L5 pars defects with grade 1 anterolisthesis of L5 on S1. Mild | | | stranding of the subcutaneous fat without evidence of discrete fluid | | | collection. Small periumbilical hernia measuring 3.4 cm without | | | evidence of angulation. IMPRESSION: No evidence of thoracic, | | | abdominal, or pelvic infection. Right middle lobe 8mm nodule | | | Fleischner Society Nodule Guidelines Low risk for malignancy: <4 | | | mm= no follow up (F/U) needed 4-6 mm= 12 month F/U nonenhanced CT | | | (NECT). If unchanged no further F/U needed. 6-8 mm= 6-12 month F/U | | | NECT then 18-24 month NECT >8 mm= F/U NECT in 3, 9, and 24 months. | | | Consider dynamic contrast enhanced CT, PET and/or biopsy. High | | | risk for malignancy (i.e. smoking or other exposure): <4 mm= 12 month | | | F/U nonenhanced CT (NECT) 4-6 mm= 6-12 month F/U NECT, then 18-24 | | | month NECT 6-8 mm= 3-6 month F/U NECT, then 9-12 and 24 month NECT | | | >8 mm= same as for low-risk patients I have personally | | | reviewed the images and, if necessary, edited the report. I agree | | | with the report as now presented. | | + + + + + | Procedure Note | + + | Service Account, Radiant Res In Interface - 03/05/2018 8:51 AM PDT EXAM: CT of the | | chest, abdomen and pelvis with intravenous contrast.HISTORY: 62 year old woman admitted | | on 02/10 due to ARDS in the setting of metapneumovirus, she was extubated on 02/21 and has | | been progressively been encephalopathic Evaluate for infection/abscess.COMPARISON: | | Chest radiograph 03/03/18TECHNIQUE: CT of the chest, abdomen and pelvis with non-ionic | | iodinated intravenous contrast. Coronal and sagittal reformats were created.FINDINGS: | | Tubes and lines: Nasogastric tube noted with tip terminating in the proximal | | stomach.Visualized neck: Right thyroid nodule demonstrate a ring calcification is | | noted.CHEST: There is a rim calcified 10 mm right lobe thyroid nodule. The heart and | | great vessels are unremarkable. No hilar, mediastinal, or axillary adenopathy. Nodule | | within the right middle lobe measuring 8 mm (72/4). Low lung volumes. Second right lower | | lobe nodule measuring 4 mm (84/4). Bibasilar atelectasis.LIVER: Unremarkable.BILIARY: | | Unremarkable.PANCREAS: Unremarkable.SPLEEN: Unremarkable.ADRENALS: Nodular thickening of | | the adrenal glands, bilaterally.KIDNEYS/URETERS: Unremarkable.PELVIC ORGANS/BLADDER: | | The uterus and ovaries are surgically absent.GI TRACT: Unremarkable. Weighted tip | | enteric tube with tip at gastric cardia.PERITONEUM: No free air or fluid.LYMPH NODES: No | | lymphadenopathy.VESSELS: Moderate atherosclerotic burden. No aneurysm. Contrast noted | | within the mesenteric vasculature.BONES AND SOFT TISSUES: Chronic bilateral L5 pars | | defects with grade 1 anterolisthesis of L5 on S1. Mild stranding of the subcutaneous fat | | without evidence of discrete fluid collection. Small periumbilical hernia measuring 3.4 | | cm without evidence of angulation.IMPRESSION: No evidence of thoracic, abdominal, or | | pelvic infection.Right middle lobe 8mm noduleFleischner Society Nodule GuidelinesLow | | risk for malignancy:<4 mm= no follow up (F/U) needed4-6 mm= 12 month F/U nonenhanced CT | | (NECT). If unchanged no further F/U needed.6-8 mm= 6-12 month F/U NECT then 18-24 month | | NECT>8 mm= F/U NECT in 3, 9, and 24 months. Consider dynamic contrast enhanced CT, PET | | and/or biopsy.High risk for malignancy (i.e. smoking or other exposure):<4 mm= 12 month | | F/U nonenhanced CT (NECT)4-6 mm= 6-12 month F/U NECT, then 18-24 month NECT6-8 mm= 3-6 | | month F/U NECT, then 9-12 and 24 month NECT >8 mm= same as for low-risk patientsI have | | personally reviewed the images and, if necessary, edited the report. I agree with the | | report as now presented. | |BONES AND SOFT TISSUES: Chronic bilateral L5 pars defects with grade 1 anterolisthesis of L 5 on S1. Mild stranding of the subcutaneous fat without evidence of discrete fluid collectio n. Small periumbilical hernia | |measuring 3.4 cm without evidence of angulation. | | | |IMPRESSION: | | | |No evidence of thoracic, abdominal, or pelvic infection. | | | |Right middle lobe 8mm nodule | | | |Fleischner Society Nodule Guidelines | | | |Low risk for malignancy: | |<4 mm= no follow up (F/U) needed | |4-6 mm= 12 month F/U nonenhanced CT (NECT). If unchanged no further F/U needed. | |6-8 mm= 6-12 month F/U NECT then 18-24 month NECT | |>8 mm= F/U NECT in 3, 9, and 24 months. Consider dynamic contrast enhanced CT, PET and/or b iopsy. | | | |High risk for malignancy (i.e. smoking or other exposure): | |<4 mm= 12 month F/U nonenhanced CT (NECT) | |4-6 mm= 6-12 month F/U NECT, then 18-24 month NECT | |6-8 mm= 3-6 month F/U NECT, then 9-12 and 24 month NECT | |>8 mm= same as for low-risk patients | | | | | | | | | | | |I have personally reviewed the images and, if necessary, edited the report. I agree with t he report as now presented. | + + + +---------+ + + | Performing | Address | City/State/Zipcode | Phone Number | | Organization | | | | + +---------+ + + | [facility] | | | | | VOICE RECOGNITION | | | | + +---------+ + + CT NECK SOFT TISSUE W CONTRAST (03/04/2018 8:23 PM PDT) + + | Specimen | + + | | + + + + + | Narrative | Performed At | + + + | CT NECK WITH CONTRAST HISTORY: Neck tenderness possible | [facility] | | infection/abscess COMPARISON: None TECHNIQUE: Axial CT images | RADIOLOGY VOICE | | of the neck from skull base to upper lungs,using weight appropriate | RECOGNITION | | dose Omnipaque contrast. 2D reformatted images were generated. | | | FINDINGS: Neck soft tissues: No soft tissue mass or abscess is | | | identified. Approximately 1.5 cm heavily elsewhere right thyroid | | | nodule is noted. NG tube coursing through appropriate structures. | | | Mild atherosclerotic changes otherwise unremarkable vessels. | | | Skull/Skull base: No fractures or destructive lesions. Visualized | | | mastoids and middle ears are unremarkable. Paranasal sinuses: | | | Right ethmoid air cell opacification. Fluid within the sphenoid | | | sinuses bilaterally. Posterior fossa: Visualized portions are | | | unremarkable. Spine: Generalized degenerative changes with | | | osteophyte formation anterolaterally. Lung apices: Visualized | | | portions are unremarkable. IMPRESSION: Heavily calcified 1.5 | | | cm thyroid nodule. Remainder of the neck is unremarkable with no | | | evidence of abscess or mass. I have personally reviewed the | | | images and, if necessary, edited the report. I agree with the | | | report as now presented. | | + + + + + | Procedure Note | + + | Service Account, Radiant Res In Interface - 03/04/2018 8:[address] NECK WITH | | CONTRASTHISTORY: Neck tenderness possible infection/abscess COMPARISON: NoneTECHNIQUE: | | Axial CT images of the neck from skull base to upper lungs,using weight appropriate dose | | Omnipaque contrast. 2D reformatted images were generated.FINDINGS:Neck soft tissues: No | | soft tissue mass or abscess is identified.Approximately 1.5 cm heavily elsewhere right | | thyroid nodule is noted.NG tube coursing through appropriate structures.Mild | | atherosclerotic changes otherwise unremarkable vessels. Skull/Skull base: No fractures | | or destructive lesions. Visualized mastoids and middle ears are unremarkable. Paranasal | | sinuses: Right ethmoid air cell opacification. Fluid within the sphenoid sinuses | | bilaterally.Posterior fossa: Visualized portions are unremarkable.Spine: Generalized | | degenerative changes with osteophyte formation anterolaterally. Lung apices: Visualized | | portions are unremarkable.IMPRESSION:Heavily calcified 1.5 cm thyroid nodule.Remainder | | of the neck is unremarkable with no evidence of abscess or mass.I have personally | | reviewed the images and, if necessary, edited the report. I agree with the report as | | now presented. | | | |Paranasal sinuses: Right ethmoid air cell opacification. Fluid within the sphenoid sinuses bilaterally. | | | |Posterior fossa: Visualized portions are unremarkable. | | | |Spine: Generalized degenerative changes with osteophyte formation anterolaterally. | | | |Lung apices: Visualized portions are unremarkable. | | | |IMPRESSION: | | | |Heavily calcified 1.5 cm thyroid nodule. | |Remainder of the neck is unremarkable with no evidence of abscess or mass. | | | | | |I have personally reviewed the images and, if necessary, edited the report. I agree with t he report as now presented. | + + + +---------+ + + | Performing | Address | City/State/Zipcode | Phone Number | | Organization | | | | + +---------+ + + | [facility] | | | | | VOICE RECOGNITION | | | | + +---------+ + + CAPILLARY BLOOD GLUCOSE (NO CHG), POC (03/04/2018 5:00 PM PDT) + +---------+ + + + | Component | Value | Ref Range | Performed | Pathologist | | | | | At | Signature | + +---------+ + + + | BLOOD | 282 (H) | 70 - 99 mg/dL | [facility] - | | | GLUCOSE, | | | [facility] | | | POC | | | [facility] | | | | | | OF CARE | | | | | | TESTS | | + +---------+ + + + + + | Specimen | + + | | + + + + + + + | Performing | Address | City/State/Zipcode | Phone Number | | Organization | | | | + + + + + | [facility] | [address] | [place], [place] | | | [facility] | [facility] | [phone] | | | TESTS | | | | + + + + + EEG CONTINUOUS, ADULT (03/04/2018 4:54 PM PDT) + + + | Narrative | Performed At | + + + | Patient Name: Sarah Reeves Date of : 1955 | [facility] - | | Date of Test: 03/04/2018 Place | [facility] | | of Service: [facility] [phone] [facility] Department: EEG [facility] - | POINT OF CARE | | [phone] LONGTERM VIDEO EEG Start | TESTS | | Date/Time: 03/04/2018 @ 16:30 End Date/Time: 03/05/2018 @ | | | 10:42 Telemetry Number: [id number] Reason for Test: Evaluate for | | | seizures and epileptiform activity. History: Ms. Reeves is a 62 | | | yo F admitted for ARDS due to metapneumovirus, with ongoing | | | encephalopathy since extubation. Has had about 1.5 months of slow | | | decline, with increasing frequency of falls, somnolence, and | | | forgetfulness, and need for walked due to sensation of leg weakness. 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 Medications: QUEtiapine (SEROQUEL) | | | tablet 50 mg, 50 mg, feeding tube, QPM methylPREDNISolone sod succ | | | (SOLU-MEDROL) 1,000 mg in NaCl 0.9 % IV, 1,000 mg, intravenous, DAILY | | | sertraline (ZOLOFT) tablet 100 mg, 100 mg, feeding tube, DAILY | | | melatonin tablet 3 mg, 3 mg, feeding tube, QPM thiamine (VITAMIN B-1) | | | IV 250 mg, 250 mg, intravenous, DAILY acetaminophen (TYLENOL) oral | | | suspension 1,000 mg, 1,000 mg, feeding tube, TID PRN amLODIPine | | | (NORVASC) tablet 10 mg, 10 mg, feeding tube, DAILY aspirin chewable | | | tablet 81 mg, 81 mg, feeding tube, DAILY atorvastatin (LIPITOR) | | | tablet 80 mg, 80 mg, feeding tube, DAILY budesonide (PULMICORT) 0.5 | | | mg/2 mL nebulizer suspension 0.5 mg, 0.5 mg, inhalation, BID | | | carvedilol (COREG) tablet 25 mg, 25 mg, feeding tube, BID | | | diphenhydrAMINE-zinc acetate (BENADRYL ITCH STOPPING) 2-0.1 % cream, , | | | topical, QID PRN ipratropium-albuterol (DUO-NEB) nebulizer solution | | | 3 mL, 3 mL, inhalation, Q6H PRN lisinopril (PRINIVIL) tablet 10 mg, | | | 10 mg, oral, DAILY | | | Methods: This study was a continuous EEG with the duration above. The | | | recording was performed with routine electrodes applied according to | | | the 10-20 electrode placement system. Video, EKG, and EOG monitoring | | | were utilized. The recording was obtained on a digital system. EEG | | | computer review was utilized. Automated digital spike and seizure | | | detection analysis was used, along with patient-activated alarms and | | | nursing observations. EEG Description: Background: The | | | record was obtained in an encephalopathic state. The record is | | | symmetric, variable, and reactive with overall normal voltage. In | | | the maximally alert state, there is a poorly sustained posterior | | | dominant rhythm of 7-8 Hz that attenuates with eye | | | opening. Symmetric diffuse frontocentral beta activity was present, | | | and an anterior to posterior gradient is apparent but overall poorly | | | organized. There are rare brief runs of Frontal Intermittent | | | Rhythmic Delta Activity (FIRDA) during drowsiness and sleep. This is | | | best seen over the right hemisphere due to Fp1 artifact, thus unable | | | to comment is the FIRDA is symmetric. The patient is awake for | | | the majority of the study. As the patient becomes drowsy, there is | | | diffuse slowing and attenuation of the background. Brief stage II | | | sleep is characterized by symmetric vertex waves and sleep spindles | | | which are poorly formed. Interictal Findings: Abnormal | | | slow wave activity: none Epileptiform activity: none Ictal | | | Activity: No seizures were observed. Clinical Events: No | | | pushbutton events documented. Patient was seen on video to have | | | frequent moments of restlessness, and at times holding her arm up in | | | the air, kicking her legs into the air, and even brief bicycling type | | | movement with right leg. None of these movements had electrographic | | | correlate to suggest epileptic etiology. Other variants: None. | | | Extra leads: Single EKG lead showed a normal sinus rhythm. | | | IMPRESSION This detention EEG is abnormal due to: 1. Mild to | | | moderate diffuse slowing 2. Frontal Intermittent Rhythmic Delta | | | Activity (FIRDA) No seizures or epileptiform discharges were seen. | | | Clinical correlate: Mild to moderate diffuse slowing is suggestive | | | of an underlying encephalopathy and is non-specific to etiology. FIRDA | | | is also a non-specific finding of encephalopathy, and rarely | | | associated with midline INTELLIGENT SYSTEMS ENGINEER lesions which was not demonstrated on | | | patients recent Brain MRI. Neurology team was updated with the | | | results. Continuous EEG is discontinued per neurology. | | | Electronically signed on 03/05/2018 at 10:13 AM Corina Kirby DO. | | | I reviewed the study and agree with the interpretation above. | | | Electronically signed on 03/05/2018 at 11:33 AM CARLOS HAMMER MD. Carlos | | | [facility] of Neurology | | | | | | Billing/Coding: Provider: Carlos Hammer MD Date: 03/04/18 to | | | 03/05/18 Suggested Modifier: GC - Resident Present Suggested CPT: | | | 40598 - EEG Video, (12 - 24 hours) Suggested Dx: G93.49 Other | | | encephalopathy | | + + + + + + + + | Performing | Address | City/State/Zipcode | Phone Number | | Organization | | | | + + + + + | [facility] | [address] | [place], [place] | | | [facility] | [facility] | [phone] | | | TESTS | | | | + + + + + CAPILLARY BLOOD GLUCOSE (NO CHG), POC (03/04/2018 12:16 PM PDT) + +---------+ + + + | Component | Value | Ref Range | Performed | Pathologist | | | | | At | Signature | + +---------+ + + + | BLOOD | 322 (H) | 70 - 99 mg/dL | [facility] - | | | GLUCOSE, | | | [facility] | | | POC | | | [place] [place] | | | | | | OF CARE | | | | | | TESTS | | + +---------+ + + + + + | Specimen | + + | | + + + + + + + | Performing | Address | City/State/Zipcode | Phone Number | | Organization | | | | + + + + + | [facility] | [address] | [place], [place] | | | [facility] | [address] | [address] | | | TESTS | | | | + + + + + NIK ACTH STM 60 (03/04/2018 11:02 AM PDT) + +-------+ + + + | Component | Value | Ref Range | Performed | Pathologist | | | | | At | Signature | + +-------+ + + + | CORTISOL, | 41.1 | ug/dL | [facility] | | | 60 MINUTE | | | LABORATORY | | | | | | SERVICES, | | | | | | CORE | | + +-------+ + + + + + | Specimen | + + | Blood | + + + + + | Narrative | Performed At | + + + | Reference Range: Normal response at 30 or 60 minutes: peak greater | [facility] | | than 20 ug/dL. | LABORATORY | | | SERVICES, CORE | + + + + + + + + | Performing | Address | City/State/Zipcode | Phone Number | | Organization | | | | + + + + + | [facility] | [address] | [place] [address] | | | SERVICES, CORE | [address] | | | + + + + + NIK ACTH STM 30 (03/04/2018 10:34 AM PDT) + +-------+ + + + | Component | Value | Ref Range | Performed | Pathologist | | | | | At | Signature | + +-------+ + + + | CORTISOL, | 31.4 | ug/dL | [facility] | | | 30 MINUTE | | | LABORATORY | | | | | | SERVICES, | | | | | | CORE | | + +-------+ + + + + + | Specimen | + + | Blood | + + + + + | Narrative | Performed At | + + + | Reference Range: Normal response at 30 or 60 minutes: peak greater | [facility] | | than 20 ug/dL. | LABORATORY | | | SERVICES, CORE | + + + + + + + + | Performing | Address | City/State/Zipcode | Phone Number | | Organization | | | | + + + + + | [facility] | [address] | [place] [address] | | | SERVICES, CORE | [address] | | | + + + + + NIK ACTH STM 0 (03/04/2018 10:05 AM PDT) + +-------+ + + + | Component | Value | Ref Range | Performed | Pathologist | | | | | At | Signature | + +-------+ + + + | CORTISOL, | 12.5 | ug/dL | [facility] | | | BASELINE | | | LABORATORY | | | | | | SERVICES, | | | | | | CORE | | + +-------+ + + + + + | Specimen | + + | Blood | + + + + + | Narrative | Performed At | + + + | Reference Ranges: A.M. collect(7-9am) = 5.3-22.5 ug/dL P.M. | [facility] | | collect(3-5 pm) = 3.4-16.8 ug/dL | LABORATORY | | | SERVICES, CORE | + + + + + + + + | Performing | Address | City/State/Zipcode | Phone Number | | Organization | | | | + + + + + | [facility] | [address] | [place] [address] | | | SERVICES, CORE | [address] | | | + + + + + ACTH, PLASMA (03/04/2018 10:05 AM PDT) + +-------+ + + + | Component | Value | Ref Range | Performed | Pathologist | | | | | At | Signature | + +-------+ + + + | ACTH,PLASMA | 20 | <=45 pg/mL | [facility] - | | | | | | [facility] - | | | | | | [place] | | + +-------+ + + + + + | Specimen | + + | Blood | + + + + + | Narrative | Performed At | + + + | High doses of biotin (>5 mg/day) can interfere with this | [facility] - | | laboratory test. Falsely elevated or decreased lab values may be seen. | [facility] - | | Patients should abstain from high dose biotin for 48 hours before | [place] | | having lab tests drawn. | | + + + + + + + + | Performing | Address | City/State/Zipcode | Phone Number | | Organization | | | | + + + + + | [facility] - | [address] | [place] [address] | | | [place] | | | | + + + + + RENAL FUNCTION SET (NA,K,CL,CO2,BUN,CREAT,GLUC,CA,PHOS,ALB ) (03/04/2018 10:05 AM PDT) + +---------+ + + + | Component | Value | Ref Range | Performed | Pathologist | | | | | At | Signature | + +---------+ + + + | GLUCOSE, | 360 (H) | 70 - 99 mg/dL | [facility] | | | PLASMA | | | LABORATORY | | | (LAB) | | | SERVICES, | | | | | | CORE | | + +---------+ + + + | BUN, PLASMA | 30 (H) | 6 - 20 mg/dL | [facility] | | | (LAB) | | | LABORATORY | | | | | | SERVICES, | | | | | | CORE | | + +---------+ + + + | CREATININE | 1.02 | 0.60 - 1.10 | [facility] | | | PLASMA | | mg/dL | LABORATORY | | | (LAB) | | | SERVICES, | | | | | | CORE | | + +---------+ + + + | EGFR | >60 | >60 mL/min | [facility] | | | - | | | LABORATORY | | | [place] | | | SERVICES, | | | | | | CORE | | + +---------+ + + + | EGFR NON | 55 (L) | >60 mL/min | [facility] | | | -[facility] | | | LABORATORY | | | [facility] | | | SERVICES, | | | | | | CORE | | + +---------+ + + + | SODIUM, | 136 | 136 - 145 | [facility] | | | PLASMA | | mmol/L | LABORATORY | | | (LAB) | | | SERVICES, | | | | | | CORE | | + +---------+ + + + | POTASSIUM, | 4.2 | 3.4 - 5.0 | [facility] | | | PLASMA | | mmol/L | LABORATORY | | | (LAB) | | | SERVICES, | | | | | | CORE | | + +---------+ + + + | CHLORIDE, | 102 | 97 - 108 mmol/L | [facility] | | | PLASMA | | | LABORATORY | | | (LAB) | | | SERVICES, | | | | | | CORE | | + +---------+ + + + | TOTAL CO2, | 27 | 21 - 32 mmol/L | [facility] | | | PLASMA | | | LABORATORY | | | (LAB) | | | SERVICES, | | | | | | CORE | | + +---------+ + + + | CALCIUM, | 8.9 | 8.6 - 10.2 | [facility] | | | PLASMA | | mg/dL | LABORATORY | | | (LAB) | | | SERVICES, | | | | | | CORE | | + +---------+ + + + | CALCIUM(ALB | 9.9 | 8.6 - 10.2 | [facility] | | | CORRECTED) | | mg/dL | LABORATORY | | | | | | SERVICES, | | | | | | CORE | | + +---------+ + + + | ALBUMIN, | 2.7 (L) | 3.5 - 4.7 g/dL | [facility] | | | PLASMA | | | LABORATORY | | | (LAB) | | | SERVICES, | | | | | | CORE | | + +---------+ + + + | PHOSPHORUS, | 2.4 | 2.4 - 4.7 mg/dL | [facility] | | | PLASMA | | | LABORATORY | | | (LAB) | | | SERVICES, | | | | | | CORE | | + +---------+ + + + | POTASSIUM | No Hemo | | [facility] | | | CMNT | | | LABORATORY | | | | | | SERVICES, | | | | | | CORE | | + +---------+ + + + | ANION GAP | 7 | 4 - 11 mmol/L | [facility] | | | | | | LABORATORY | | | | | | SERVICES, | | | | | | CORE | | + +---------+ + + + | ANION | 10 | 4 - 11 mmol/L | [facility] | | | GAP(ALB | | | LABORATORY | | | CORRECTED) | | | SERVICES, | | | | | | CORE | | + +---------+ + + + + + | Specimen | + + | Blood | + + + + + | Narrative | Performed At | + + + | GFR is estimated using the MDRD equation recommended by the | [facility] | | National Kidney Disease Education Program. Estimated GFR | LABORATORY | | Interpretive Information: <60 mL/min/1.73 sq | SERVICES, CORE | | m Chronic Kidney Disease <15 mL/min/1.73 | | | sq m Kidney Failure Estimated GFR greater | | | that 60 mL/min/1.73 sq m is of limited clinical value. The MDRD | | | equation is not valid in the following situations: - Patients under | | | 18 years of age - Severe malnutrition or obesity - Vegetarian diet | | | - Rapidly changing kidney function - Amputees, paraplegics, or other | | | muscle-wasting diseses | | + + + + + + + + | Performing | Address | City/State/Rustcode | Phone Number | | Organization | | | | + + + + + | [facility] | [address] | [place] [address] | | | [place] | [address] | | | + + + + + CAPILLARY BLOOD GLUCOSE (NO CHG), POC (03/04/2018 8:36 AM PDT) + +---------+ + + + | Component | Value | Ref Range | Performed | Pathologist | | | | | At | Signature | + +---------+ + + + | BLOOD | 336 (H) | 70 - 99 mg/dL | [facility] - | | | GLUCOSE, | | | [facility] | | | POC | | | [place] [place] | | | | | | OF CARE | | | | | | TESTS | | + +---------+ + + + + + | Specimen | + + | | + + + + + + + | Performing | Address | City/State/Zipcode | Phone Number | | Organization | | | | + + + + + | [facility] | [address] | [place], [place] | | | [facility] | [address] | [address] | | | TESTS | | | | + + + + + CAPILLARY BLOOD GLUCOSE (NO CHG), POC (03/03/2018 11:56 PM PDT) + +---------+ + + + | Component | Value | Ref Range | Performed | Pathologist | | | | | At | Signature | + +---------+ + + + | BLOOD | 239 (H) | 70 - 99 mg/dL | [facility] - | | | GLUCOSE, | | | [facility] | | | POC | | | [facility] | | | | | | OF CARE | | | | | | TESTS | | + +---------+ + + + + + | Specimen | + + | | + + + + + + + | Performing | Address | City/State/Zipcode | Phone Number | | Organization | | | | + + + + + | [facility] | [address] | [place], [place] | | | [facility] | [address] | [address] | | | TESTS | | | | + + + + + CAPILLARY BLOOD GLUCOSE (NO CHG), POC (03/03/2018 5:04 PM PDT) + +---------+ + + + | Component | Value | Ref Range | Performed | Pathologist | | | | | At | Signature | + +---------+ + + + | BLOOD | 224 (H) | 70 - 99 mg/dL | [facility] - | | | GLUCOSE, | | | [facility] | | | POC | | | [facility] | | | | | | OF CARE | | | | | | TESTS | | + +---------+ + + + + + | Specimen | + + | | + + + + + + + | Performing | Address | City/State/Zipcode | Phone Number | | Organization | | | | + + + + + | [facility] | [address] | [place], [place] | | | [facility] | [address] | [address] | | | TESTS | | | | + + + + + CAPILLARY BLOOD GLUCOSE (NO CHG), POC (03/03/2018 1:49 PM PDT) + +---------+ + + + | Component | Value | Ref Range | Performed | Pathologist | | | | | At | Signature | + +---------+ + + + | BLOOD | 247 (H) | 70 - 99 mg/dL | [facility] - | | | GLUCOSE, | | | [facility] | | | POC | | | [place] [place] | | | | | | OF CARE | | | | | | TESTS | | + +---------+ + + + + + | Specimen | + + | | + + + + + + + | Performing | Address | City/State/Zipcode | Phone Number | | Organization | | | | + + + + + | [facility] | [address] | [place], [place] | | | [facility] | [address] | [address] | | | TESTS | | | | + + + + + LAB OTHER (03/03/2018 12:41 PM PDT) + + + + + + | Component | Value | Ref Range | Performed | Pathologist | | | | | At | Signature | + + + + + + | MISC REF | Autoimmune | | [facility] | | | TEST NAME | Encephalopathy | | LABORATORY | | | | Evaluation, Serum | | SERVICES, | | | | | | CORE | | + + + + + + | MISC REF | | | [facility] | | | TEST RESULT | | | REFERENCE | | | | | | LAB | | + + + + + + | NORMAL | | | [facility] | | | RANGE | | | REFERENCE | | | | | | LAB | | + + + + + + | REFERRAL | Test performed by: | | [facility] | | | LAB NAME | [facility] | | REFERENCE | | | | [address] | | LAB | | | | [place] [address] | | | | + + + + + + + + | Specimen | + + | Blood | + + + + + | Narrative | Performed At | + + + | See scanned | [facility] | | report for Technical Results and further Interpretation and Comments. | REFERENCE LAB | | | | | | | + + + + + + + + | Performing | Address | City/State/Zipcode | Phone Number | | Organization | | | | + + + + + | [facility] | | | | + + + + + | [facility] | [address] | [place] [address] | | | SERVICES, CORE | [address] | | | + + + + + | [facility] | see below | | | + + + + + CAPILLARY BLOOD GLUCOSE (NO CHG), POC (03/03/2018 12:08 PM PDT) + +---------+ + + + | Component | Value | Ref Range | Performed | Pathologist | | | | | At | Signature | + +---------+ + + + | BLOOD | 311 (H) | 70 - 99 mg/dL | [facility] - | | | GLUCOSE, | | | [facility] | | | POC | | | [facility] | | | | | | OF CARE | | | | | | TESTS | | + +---------+ + + + + + | Specimen | + + | | + + + + + + + | Performing | Address | City/State/Zipcode | Phone Number | | Organization | | | | + + + + + | [facility] | [address] | [place], [place] | | | [facility] | [address] | [address] | | | TESTS | | | | + + + + + X-RAY PORTABLE CHEST 1 VIEW (03/03/2018 9:08 AM PDT) + + | Specimen | + + | | + + + + + | Narrative | Performed At | + + + | EXAM: ME CHEST 1 VIEW HISTORY: Right pectoral pain and is | [facility] | | encephalopathic patient. Unable to localize COMPARISON: 02/21/18 | RADIOLOGY VOICE | | FINDINGS: Rotation and overlying soft tissue mildly limits | RECOGNITION | | evaluation. Feeding tube projects below the diaphragm. Low lung | | | volumes. No large new focal consolidation or pneumothorax. No definite | | | pulmonary edema. No acute osseous abnormality. IMPRESSION: | | | Limited radiograph with no acute abnormality identified. I have | | | personally reviewed the images and, if necessary, edited the | | | report. I agree with the report as now presented. | | + + + + + | Procedure Note | + + | Service Account, [employer] In Interface - 03/03/2018 4:37 PM PDT EXAM: ME CHEST 1 | | VIEWHISTORY: Right pectoral pain and is encephalopathic patient. Unable to | | localizeCOMPARISON: 02/21/18INDINGS: Rotation and overlying soft tissue mildly limits | | evaluation. Feeding tube projects below the diaphragm. Low lung volumes. No large new | | focal consolidation or pneumothorax. No definite pulmonary edema. No acute osseous | | abnormality. IMPRESSION: Limited radiograph with no acute abnormality identified.I have | | personally reviewed the images and, if necessary, edited the report. I agree with the | | report as now presented. | | | |IMPRESSION: | | | |Limited radiograph with no acute abnormality identified. | | | | | |I have personally reviewed the images and, if necessary, edited the report. I agree with t he report as now presented. | + + + +---------+ + + | Performing | Address | City/State/Zipcode | Phone Number | | Organization | | | | + +---------+ + + | [facility] | | | | | VOICE RECOGNITION | | | | + +---------+ + + CBC AND AUTO DIFF (03/03/2018 7:20 AM PDT) + + + + + + | Component | Value | Ref Range | Performed | Pathologist | | | | | At | Signature | + + + + + + | WHITE CELL | 8.22 | 3.50 - 10.80 | [facility] | | | COUNT | | K/cu mm | LABORATORY | | | | | | SERVICES, | | | | | | CORE | | + + + + + + | RED CELL | 4.73 | 4.00 - 5.20 | [facility] | | | COUNT | | M/cu mm | LABORATORY | | | | | | SERVICES, | | | | | | CORE | | + + + + + + | HEMOGLOBIN | 12.9 | 12.0 - 16.0 | [facility] | | | | | g/dL | LABORATORY | | | | | | SERVICES, | | | | | | CORE | | + + + + + + | HEMATOCRIT | 41.7 | 36.0 - 46.0 % | [facility] | | | | | | LABORATORY | | | | | | SERVICES, | | | | | | CORE | | + + + + + + | MCV | 88.2 | 80.0 - 96.0 fL | [facility] | | | | | | LABORATORY | | | | | | SERVICES, | | | | | | CORE | | + + + + + + | MCHC | 30.9 | 33.0 - 35.5 | [facility] | | | | | g/dL | LABORATORY | | | | | | SERVICES, | | | | | | CORE | | + + + + + + | RDW SD | 44.5 | 35.1 - 46.3 fL | [facility] | | | | | | LABORATORY | | | | | | SERVICES, | | | | | | CORE | | + + + + + + | PLATELET | 253 | 150 - 400 K/cu | [facility] | | | COUNT | | mm | LABORATORY | | | | | | SERVICES, | | | | | | CORE | | + + + + + + | MPV | 10.9 | 9.7 - 12.3 fL | [facility] | | | | | | LABORATORY | | | | | | SERVICES, | | | | | | CORE | | + + + + + + | NRBC% | 0.0 | 0.0 - 0.3 % | [facility] | | | | | | LABORATORY | | | | | | SERVICES, | | | | | | CORE | | + + + + + + | NRBC# | 0.00 | 0.00 - 0.02 | [facility] | | | | | K/cu mm | LABORATORY | | | | | | SERVICES, | | | | | | CORE | | + + + + + + | NEUTROPHIL | 60.2 | 50.0 - 70.0 % | [facility] | | | % | | | LABORATORY | | | | | | SERVICES, | | | | | | CORE | | + + + + + + | LYMPHOCYTE | 27.0 | 18.0 - 42.0 % | [facility] | | | % | | | LABORATORY | | | | | | SERVICES, | | | | | | CORE | | + + + + + + | MONOCYTE % | 9.0 | 3.5 - 9.0 % | [facility] | | | | | | LABORATORY | | | | | | SERVICES, | | | | | | CORE | | + + + + + + | EOS % | 2.9 | 1.0 - 3.0 % | [facility] | | | | | | LABORATORY | | | | | | SERVICES, | | | | | | CORE | | + + + + + + | BASO % | 0.7 | 0.0 - 2.0 % | [facility] | | | | | | LABORATORY | | | | | | SERVICES, | | | | | | CORE | | + + + + + + | IG% | 0.2Comment: Increased | 0.0 - 1.0 % | [facility] | | | | immature granulocytes | | LABORATORY | | | | (IG) define a left | | SERVICES, | | | | shift. Immature | | CORE | | | | granulocytes (IG) are an | | | | | | automated count of | | | | | | metamyelocytes, | | | | | | myelocytes and | | | | | | promyelocytes. Bands | | | | | | are not included in the | | | | | | IG count. Bands are | | | | | | included in the | | | | | | neutrophil count. | | | | + + + + + + | NEUTROPHIL | 4.94 | 1.80 - 7.70 | [facility] | | | # | | K/cu mm | LABORATORY | | | | | | SERVICES, | | | | | | CORE | | + + + + + + | LYMPHOCYTE | 2.22 | 1.00 - 4.80 | [facility] | | | # | | K/cu mm | LABORATORY | | | | | | SERVICES, | | | | | | CORE | | + + + + + + | MONOCYTE # | 0.74 | 0.10 - 0.90 | [facility] | | | | | K/cu mm | LABORATORY | | | | | | SERVICES, | | | | | | CORE | | + + + + + + | EOS # | 0.24 | 0.00 - 0.50 | [facility] | | | | | K/cu mm | LABORATORY | | | | | | SERVICES, | | | | | | CORE | | + + + + + + | BASO # | 0.06 | 0.00 - 0.10 | [facility] | | | | | K/cu mm | LABORATORY | | | | | | SERVICES, | | | | | | CORE | | + + + + + + | IG# | 0.02 | 0.00 - 0.10 | [facility] | | | | | K/cu mm | LABORATORY | | | | | | SERVICES, | | | | | | CORE | | + + + + + + + + | Specimen | + + | Blood | + + + + + | Narrative | Performed At | + + + | New reference ranges for IG% and IG# effective 12/02/2017. | [facility] | | Increased immature granulocytes (IG) define a left shift. Immature | LABORATORY | | granulocytes (IG) are an automated count of metamyelocytes, myelocytes | SERVICES, CORE | | and promyelocytes. Bands are not included in the IG count. Bands are | | | included in the neutrophil count. | | + + + + + + + + | Performing | Address | City/State/Zipcode | Phone Number | | Organization | | | | + + + + + | [facility] | [address] | [place] [address] | | | SERVICES, CORE | [address] | | | + + + + + RENAL FUNCTION SET (NA,K,CL,CO2,BUN,CREAT,GLUC,CA,PHOS,ALB ) (03/03/2018 7:20 AM PDT) + +---------+ + + + | Component | Value | Ref Range | Performed | Pathologist | | | | | At | Signature | + +---------+ + + + | GLUCOSE, | 293 (H) | 70 - 99 mg/dL | [facility] | | | PLASMA | | | LABORATORY | | | (LAB) | | | SERVICES, | | | | | | CORE | | + +---------+ + + + | BUN, PLASMA | 29 (H) | 6 - 20 mg/dL | [facility] | | | (LAB) | | | LABORATORY | | | | | | SERVICES, | | | | | | CORE | | + +---------+ + + + | CREATININE | 0.88 | 0.60 - 1.10 | [facility] | | | PLASMA | | mg/dL | LABORATORY | | | (LAB) | | | SERVICES, | | | | | | CORE | | + +---------+ + + + | EGFR | >60 | >60 mL/min | [facility] | | | - | | | LABORATORY | | | [place] | | | SERVICES, | | | | | | CORE | | + +---------+ + + + | EGFR NON | >60 | >60 mL/min | [facility] | | | -[facility] | | | LABORATORY | | | [facility] | | | SERVICES, | | | | | | CORE | | + +---------+ + + + | SODIUM, | 138 | 136 - 145 | [facility] | | | PLASMA | | mmol/L | LABORATORY | | | (LAB) | | | SERVICES, | | | | | | CORE | | + +---------+ + + + | POTASSIUM, | 3.9 | 3.4 - 5.0 | [facility] | | | PLASMA | | mmol/L | LABORATORY | | | (LAB) | | | SERVICES, | | | | | | CORE | | + +---------+ + + + | CHLORIDE, | 104 | 97 - 108 mmol/L | [facility] | | | PLASMA | | | LABORATORY | | | (LAB) | | | SERVICES, | | | | | | CORE | | + +---------+ + + + | TOTAL CO2, | 29 | 21 - 32 mmol/L | [facility] | | | PLASMA | | | LABORATORY | | | (LAB) | | | SERVICES, | | | | | | CORE | | + +---------+ + + + | CALCIUM, | 8.5 (L) | 8.6 - 10.2 | [facility] | | | PLASMA | | mg/dL | LABORATORY | | | (LAB) | | | SERVICES, | | | | | | CORE | | + +---------+ + + + | CALCIUM(ALB | 9.5 | 8.6 - 10.2 | [facility] | | | CORRECTED) | | mg/dL | LABORATORY | | | | | | SERVICES, | | | | | | CORE | | + +---------+ + + + | ALBUMIN, | 2.7 (L) | 3.5 - 4.7 g/dL | [facility] | | | PLASMA | | | LABORATORY | | | (LAB) | | | SERVICES, | | | | | | CORE | | + +---------+ + + + | PHOSPHORUS, | 3.2 | 2.4 - 4.7 mg/dL | [facility] | | | PLASMA | | | LABORATORY | | | (LAB) | | | SERVICES, | | | | | | CORE | | + +---------+ + + + | POTASSIUM | No Hemo | | [facility] | | | CMNT | | | LABORATORY | | | | | | SERVICES, | | | | | | CORE | | + +---------+ + + + | ANION GAP | 5 | 4 - 11 mmol/L | [facility] | | | | | | LABORATORY | | | | | | SERVICES, | | | | | | CORE | | + +---------+ + + + | ANION | 8 | 4 - 11 mmol/L | [facility] | | | GAP(ALB | | | LABORATORY | | | CORRECTED) | | | SERVICES, | | | | | | CORE | | + +---------+ + + + + + | Specimen | + + | Blood | + + + + + | Narrative | Performed At | + + + | GFR is estimated using the MDRD equation recommended by the | [facility] | | National Kidney Disease Education Program. Estimated GFR | LABORATORY | | Interpretive Information: <60 mL/min/1.73 sq | SERVICES, CORE | | m Chronic Kidney Disease <15 mL/min/1.73 | | | sq m Kidney Failure Estimated GFR greater | | | that 60 mL/min/1.73 sq m is of limited clinical value. The MDRD | | | equation is not valid in the following situations: - Patients under | | | 18 years of age - Severe malnutrition or obesity - Vegetarian diet | | | - Rapidly changing kidney function - Amputees, paraplegics, or other | | | muscle-wasting diseses | | + + + + + + + + | Performing | Address | City/State/Zipcode | Phone Number | | Organization | | | | + + + + + | [facility] | [address] | [place] [address] | | | [place] | [address] | | | + + + + + C-REACTIVE PROTEIN (03/03/2018 7:20 AM PDT) + + + + + + | Component | Value | Ref Range | Performed | Pathologist | | | | | At | Signature | + + + + + + | C-REACTIVE | 15.7 (H) | <10.0 mg/L | [facility] | | | PROTEIN | | | LABORATORY | | | | | | SERVICES, | | | | | | CORE | | + + + + + + + + | Specimen | + + | Blood | + + + + + | Narrative | Performed At | + + + | New method, new reference range and new reporting units as of | [facility] | | 04/15/2014. | LABORATORY | | | [place] | + + + + + + + + | Performing | Address | City/State/Zipcode | Phone Number | | Organization | | | | + + + + + | [facility] | [address] | [place] [address] | | | [place] | [address] | | | + + + + + SEDIMENTATION RATE (03/03/2018 7:20 AM PDT) + +--------+ + + + | Component | Value | Ref Range | Performed | Pathologist | | | | | At | Signature | + +--------+ + + + | SEDIMENTATI | 42 (H) | 0 - 30 mm/hr | [facility] | | | ON RATE | | | LABORATORY | | | | | | SERVICES, | | | | | | CORE | | + +--------+ + + + + + | Specimen | + + | Blood | + + + + + | Narrative | Performed At | + + + | Conditions such as cold agglutinins, anemia, hemolysis, icterus or | [facility] | | lipemia may affect sedimentation rate. | LABORATORY | | | [place] | + + + + + + + + | Performing | Address | City/State/Zipcode | Phone Number | | Organization | | | | + + + + + | [facility] | [address] | [place] [address] | | | [place] | [address] | | | + + + + + RHEUMATOID FACTOR, SERUM (03/03/2018 7:20 AM PDT) + +--------+ + + + | Component | Value | Ref Range | Performed | Pathologist | | | | | At | Signature | + +--------+ + + + | RHEUMATOID | 25 (H) | <=14 IU/mL | [facility] | | | [facility] | | | | | | [place] | | + +--------+ + + + + + | Specimen | + + | Blood | + + + + + + + | Performing | Address | City/State/Zipcode | Phone Number | | Organization | | | | + + + + + | [facility] | [address] | [place] [address] | | | [place] | | | | + + + + + SSB AB (03/03/2018 7:20 AM PDT) + + + + + + | Component | Value | Ref Range | Performed | Pathologist | | | | | At | Signature | + + + + + + | SSB ([place]) | 0Comment: INTERPRETIVE | 0 - 40 AU/mL | [facility] | | | AB, IGG | INFORMATION: SSB ([place]) | | REG UNIV | | | | (RIKA) Ab, IgG 29 | | PTH - INTFC | | | | AU/mL or Less | | | | | | ............. | | | | | | Negative 30 - 40 | | | | | | AU/mL ................ | | | | | | Equivocal 41 AU/mL or | | | | | | Greater .......... | | | | | | Positive SSB ([place]) | | | | | | antibody is seen in | | | | | | 50-60% of Sjogren | | | | | | syndrome cases and is | | | | | | specific if it is the | | | | | | only RIKA antibody | | | | | | present. 15-25% of | | | | | | patients with systemic | | | | | | lupus erythematosus | | | | | | (SLE) and 5-10% of | | | | | | patients with | | | | | | progressive systemic | | | | | | sclerosis (PSS) also | | | | | | have this | | | | | | antibody.Performed by | | | | | | [facility] | | | | | | [address], [facility] [place] | | | | | | [id number] | | | | | | [phone].[email or web address]. | | | | | | [facility], Sherwin Diez MD, | | | | | | Lab. Director | | | | + + + + + + + + | Specimen | + + | Blood | + + + + + + + | Performing | Address | City/State/[place] | Phone Number | | Organization | | | | + + + + + | [facility] | [address] | [place], [place] | | | [facility] | | [id number] | | + + + + + SSA AB (03/03/2018 7:20 AM PDT) + + + + + + | Component | Value | Ref Range | Performed | Pathologist | | | | | At | Signature | + + + + + + | SSA 52 (RO) | 2Comment: INTERPRETIVE | 0 - 40 AU/mL | [facility] | | | AB, IGG | INFORMATION: SSA-52 | | REG UNIV | | | | (Ro52) (RIKA) Antibody, | | PTH - INTFC | | | | IgG 29 AU/mL or Less | | | | | | ............. | | | | | | Negative 30 - 40 | | | | | | AU/mL ................ | | | | | | Equivocal 41 AU/mL or | | | | | | Greater .......... | | | | | | Positive SSA-52 (Ro52) | | | | | | and/or SSA-60 (Ro60) | | | | | | antibodies are | | | | | | associated with a | | | | | | diagnosis of Sjogren | | | | | | syndrome, systemic lupus | | | | | | erythematosus (SLE), | | | | | | and systemic sclerosis. | | | | | | SSA-52 antibody overlaps | | | | | | significantly with the | | | | | | major SSc-related | | | | | | antibodies. SSA-52 | | | | | | (Ro52) antibody occurs | | | | | | frequently in patients | | | | | | with inflammatory | | | | | | myopathies, often in the | | | | | | presence of | | | | | | interstitial lung | | | | | | disease. | | | | + + + + + + | SSA 60 (RO) | 0Comment: REFERENCE | 0 - 40 AU/mL | [facility] | | | (RIKA) | INTERVAL: SSA-60 (Ro60) | | REG UNIV | | | ANTIBODY, | (RIKA) Antibody, IgG | | PTH - INTFC | | | IGG | 29 AU/mL or Less | | | | | | ............. | | | | | | Negative 30 - 40 | | | | | | AU/mL ................ | | | | | | Equivocal 41 AU/mL or | | | | | | Greater .......... | | | | | | PositivePerformed by | | | | | | [facility],[address] | | | | | | [address] [place] | | | | | | [address] | | | | | | [phone].aruplab. | | | | | | Sherwin tyler MD, | | | | | | Lab. Director | | | | + + + + + + + + | Specimen | + + | Blood | + + + + + + + | Performing | Address | City/State/Zipcode | Phone Number | | Organization | | | | + + + + + | [facility] | [address] | [place], [place] | | | [facility] | | [phone] | | + + + + + RIKA SCREEN (03/03/2018 7:20 AM PDT) + + + + + + | Component | Value | Ref Range | Performed | Pathologist | | | | | At | Signature | + + + + + + | RIKA SCREEN | NegativeComment: | Negative | [facility] | | | | T | | [facility] - | | | | his test measures the | | [place] | | | | following antibodies: | | | | | | SSA, SSB, Sm, Sm-POWER SYSTEM DISPATCHER, | | | | | | POWER SYSTEM DISPATCHER, Chromatin, dsDNA, | | | | | | Scl-70, Centromere-B, | | | | | | Ribosomal-P, Cristin-1. If | | | | | | the screen was reported | | | | | | as negative it means | | | | | | none of the above were | | | | | | detected. | | | | + + + + + + + + | Specimen | + + | Blood | + + + + + | Narrative | Performed At | + + + | Antigens screened in this assay are dsDNA, SSA (Ro), SSB ([place]), | [facility] - | | Sm, SmRNP, POWER SYSTEM DISPATCHER, Chromatin, Scl-70, Centromere-B, Ribosomal P, and | [facility] - | | Cristin-1. | [place] | + + + + + + + + | Performing | Address | City/State/Zipcode | Phone Number | | Organization | | | | + + + + + | [facility] | [address] | [place] [address] | | | [place] | | | | + + + + + JONATHAN BY SANDHYA W/REFLEX TO IFA PATTERN & AB ID WHEN INDICATED (03/03/2018 7:20 AM PDT) + + + + + + | Component | Value | Ref Range | Performed | Pathologist | | | | | At | Signature | + + + + + + | ANTI-NUCLEA | None DetectedComment: No | None Detected | [facility] | | | R AB(JONATHAN), | antibodies to | | REG UNIV | | | IGG BY | Anti-Nuclear Antibodies | | PTH - INT[facility] | | | SANDHYA | (JONATHAN) detected. No | | | | | | further testing will be | | | | | | performed. If suspicion | | | | | | of connective tissue | | | | | | disease is strong and | | | | | | JONATHAN EIA is negative, | | | | | | consider testing for JONATHAN | | | | | | by IFA | | | | | | ([id number]).INTERPRETIVE | | | | | | INFORMATION: | | | | | | Anti-Nuclear Antibodies | | | | | | (JONATHAN), IgG by SANDHYA | | | | | | Anti-Nuclear Antibodies | | | | | | (JONATHAN), IgG by SANDHYA: JONATHAN | | | | | | specimens are screened | | | | | | using enzyme-linked | | | | | | immunosorbent assay | | | | | | (SANDHYA) methodology. All | | | | | | SANDHYA results reported | | | | | | as Detected are further | | | | | | tested by indirect | | | | | | fluorescent assay (IFA) | | | | | | using HEp-2 substrate | | | | | | with an IgG-specific | | | | | | conjugate. The JONATHAN SANDHYA | | | | | | screen is designed to | | | | | | detect antibodies | | | | | | against dsDNA, histone, | | | | | | SS-A (Ro), SS-B (La), | | | | | | Bynum, snRNP/Sm, Scl-70, | | | | | | Cristin-1, centromere, and | | | | | | an extract of lysed | | | | | | HEp-2 cells. JONATHAN SANDHYA | | | | | | assays have been | | | | | | reported to have lower | | | | | | sensitivities than JONATHAN | | | | | | IFA for systemic | | | | | | autoimmune rheumatic | | | | | | diseases (SARD). | | | | | | Negative results do not | | | | | | necessarily rule out | | | | | | SARD.Performed by [facility] | | | | | | [facility],[address] [place] [address] | | | | | | [place] [address] | | | | | | [phone].[email or web address]. | | | | | | Sherwin tyler MD, | | | | | | Lab. Director | | | | + + + + + + + + | Specimen | + + | Blood | + + + + + + + | Performing | Address | City/State/Zipcode | Phone Number | | Organization | | | | + + + + + | [facility] | [address] | [place], [place] | | | [facility] | | [phone] | | + + + + + CAPILLARY BLOOD GLUCOSE (NO CHG), POC (03/03/2018 6:24 AM PDT) + +---------+ + + + | Component | Value | Ref Range | Performed | Pathologist | | | | | At | Signature | + +---------+ + + + | BLOOD | 235 (H) | 70 - 99 mg/dL | [facility] | | | GLUCOSE, | | | [facility] | | | POC | | | [facility] | | | | | | OF CARE | | | | | | TESTS | | + +---------+ + + + + + | Specimen | + + | | + + + + + + + | Performing | Address | City/State/Zipcode | Phone Number | | Organization | | | | + + + + + | [facility] | [address] | [place], [place] | | | [facility] | [address] | [address] | | | TESTS | | | | + + + + + CAPILLARY BLOOD GLUCOSE (NO CHG), POC (03/02/2018 11:22 PM PDT) + +---------+ + + + | Component | Value | Ref Range | Performed | Pathologist | | | | | At | Signature | + +---------+ + + + | BLOOD | 237 (H) | 70 - 99 mg/dL | [facility] | | | GLUCOSE, | | | [facility] | | | POC | | | [facility] | | | | | | OF CARE | | | | | | TESTS | | + +---------+ + + + + + | Specimen | + + | | + + + + + + + | Performing | Address | City/State/Zipcode | Phone Number | | Organization | | | | + + + + + | [facility] | [address] | [place], [place] | | | [facility] | [address] | [phone] | | | TESTS | | | | + + + + + CAPILLARY BLOOD GLUCOSE (NO CHG), POC (03/02/2018 6:22 PM PDT) + +---------+ + + + | Component | Value | Ref Range | Performed | Pathologist | | | | | At | Signature | + +---------+ + + + | BLOOD | 284 (H) | 70 - 99 mg/dL | [facility] - | | | GLUCOSE, | | | [facility] | | | POC | | | [facility] | | | | | | OF CARE | | | | | | TESTS | | + +---------+ + + + + + | Specimen | + + | | + + + + + + + | Performing | Address | City/State/Zipcode | Phone Number | | Organization | | | | + + + + + | [facility] | [address] | [place], [place] | | | [facility] | [address] | [address] | | | TESTS | | | | + + + + + CAPILLARY BLOOD GLUCOSE (NO CHG), POC (03/02/2018 2:41 PM PDT) + +---------+ + + + | Component | Value | Ref Range | Performed | Pathologist | | | | | At | Signature | + +---------+ + + + | BLOOD | 275 (H) | 70 - 99 mg/dL | [facility] - | | | GLUCOSE, | | | [facility] | | | POC | | | [facility] | | | | | | OF CARE | | | | | | TESTS | | + +---------+ + + + + + | Specimen | + + | | + + + + + + + | Performing | Address | City/State/Zipcode | Phone Number | | Organization | | | | + + + + + | [facility] | [address] | [place], [place] | | | [facility] | [address] | [address] | | | TESTS | | | | + + + + + CAPILLARY BLOOD GLUCOSE (NO CHG), POC (03/02/2018 12:20 PM PDT) + +---------+ + + + | Component | Value | Ref Range | Performed | Pathologist | | | | | At | Signature | + +---------+ + + + | BLOOD | 244 (H) | 70 - 99 mg/dL | [facility] - | | | GLUCOSE, | | | [facility] | | | POC | | | [facility] | | | | | | OF CARE | | | | | | TESTS | | + +---------+ + + + + + | Specimen | + + | | + + + + + + + | Performing | Address | City/State/Zipcode | Phone Number | | Organization | | | | + + + + + | [facility] | [address] | [place], [place] | | | [facility] | [address] | [address] | | | TESTS | | | | + + + + + PROCEDURE NOTE (03/02/2018 12:17 PM PDT)CBC AND AUTO DIFF (03/02/2018 8:27 AM PDT) + + + + + + | Component | Value | Ref Range | Performed | Pathologist | | | | | At | Signature | + + + + + + | WHITE CELL | 10.86 (H) | 3.50 - 10.80 | [facility] | | | COUNT | | K/cu mm | LABORATORY | | | | | | SERVICES, | | | | | | CORE | | + + + + + + | RED CELL | 4.80 | 4.00 - 5.20 | [facility] | | | COUNT | | M/cu mm | LABORATORY | | | | | | SERVICES, | | | | | | CORE | | + + + + + + | HEMOGLOBIN | 13.1 | 12.0 - 16.0 | [facility] | | | | | g/dL | LABORATORY | | | | | | SERVICES, | | | | | | CORE | | + + + + + + | HEMATOCRIT | 42.6 | 36.0 - 46.0 % | [facility] | | | | | | LABORATORY | | | | | | SERVICES, | | | | | | CORE | | + + + + + + | MCV | 88.8 | 80.0 - 96.0 fL | [facility] | | | | | | LABORATORY | | | | | | SERVICES, | | | | | | CORE | | + + + + + + | MCHC | 30.8 | 33.0 - 35.5 | [facility] | | | | | g/dL | LABORATORY | | | | | | SERVICES, | | | | | | CORE | | + + + + + + | RDW SD | 45.2 | 35.1 - 46.3 fL | [facility] | | | | | | LABORATORY | | | | | | SERVICES, | | | | | | CORE | | + + + + + + | PLATELET | 293 | 150 - 400 K/cu | [facility] | | | COUNT | | mm | LABORATORY | | | | | | SERVICES, | | | | | | CORE | | + + + + + + | MPV | 10.2 | 9.7 - 12.3 fL | [facility] | | | | | | LABORATORY | | | | | | SERVICES, | | | | | | CORE | | + + + + + + | NRBC% | 0.0 | 0.0 - 0.3 % | [facility] | | | | | | LABORATORY | | | | | | SERVICES, | | | | | | CORE | | + + + + + + | NRBC# | 0.00 | 0.00 - 0.02 | [facility] | | | | | K/cu mm | LABORATORY | | | | | | SERVICES, | | | | | | CORE | | + + + + + + | NEUTROPHIL | 66.8 | 50.0 - 70.0 % | [facility] | | | % | | | LABORATORY | | | | | | SERVICES, | | | | | | CORE | | + + + + + + | LYMPHOCYTE | 20.2 | 18.0 - 42.0 % | [facility] | | | % | | | LABORATORY | | | | | | SERVICES, | | | | | | CORE | | + + + + + + | MONOCYTE % | 10.0 (H) | 3.5 - 9.0 % | [facility] | | | | | | LABORATORY | | | | | | SERVICES, | | | | | | CORE | | + + + + + + | EOS % | 2.1 | 1.0 - 3.0 % | [facility] | | | | | | LABORATORY | | | | | | SERVICES, | | | | | | CORE | | + + + + + + | BASO % | 0.6 | 0.0 - 2.0 % | [facility] | | | | | | LABORATORY | | | | | | SERVICES, | | | | | | CORE | | + + + + + + | IG% | 0.3Comment: Increased | 0.0 - 1.0 % | [facility] | | | | immature granulocytes | | LABORATORY | | | | (IG) define a left | | SERVICES, | | | | shift. Immature | | CORE | | | | granulocytes (IG) are an | | | | | | automated count of | | | | | | metamyelocytes, | | | | | | myelocytes and | | | | | | promyelocytes. Bands | | | | | | are not included in the | | | | | | IG count. Bands are | | | | | | included in the | | | | | | neutrophil count. | | | | + + + + + + | NEUTROPHIL | 7.25 | 1.80 - 7.70 | [facility] | | | # | | K/cu mm | LABORATORY | | | | | | SERVICES, | | | | | | CORE | | + + + + + + | LYMPHOCYTE | 2.19 | 1.00 - 4.80 | [facility] | | | # | | K/cu mm | LABORATORY | | | | | | SERVICES, | | | | | | CORE | | + + + + + + | MONOCYTE # | 1.09 (H) | 0.10 - 0.90 | [facility] | | | | | K/cu mm | LABORATORY | | | | | | SERVICES, | | | | | | CORE | | + + + + + + | EOS # | 0.23 | 0.00 - 0.50 | [facility] | | | | | K/cu mm | LABORATORY | | | | | | SERVICES, | | | | | | CORE | | + + + + + + | BASO # | 0.07 | 0.00 - 0.10 | [facility] | | | | | K/cu mm | LABORATORY | | | | | | SERVICES, | | | | | | CORE | | + + + + + + | IG# | 0.03 | 0.00 - 0.10 | [facility] | | | | | K/cu mm | LABORATORY | | | | | | SERVICES, | | | | | | CORE | | + + + + + + + + | Specimen | + + | Blood | + + + + + | Narrative | Performed At | + + + | New reference ranges for IG% and IG# effective 12/02/2017. | [facility] | | Increased immature granulocytes (IG) define a left shift. Immature | LABORATORY | | granulocytes (IG) are an automated count of metamyelocytes, myelocytes | SERVICES, CORE | | and promyelocytes. Bands are not included in the IG count. Bands are | | | included in the neutrophil count. | | + + + + + + + + | Performing | Address | City/State/Zipcode | Phone Number | | Organization | | | | + + + + + | [facility] | [address] | [place] [address] | | | SERVICES, CORE | [address] | | | + + + + + RENAL FUNCTION SET (NA,K,CL,CO2,BUN,CREAT,GLUC,CA,PHOS,ALB ) (03/02/2018 8:27 AM PDT) + +---------+ + + + | Component | Value | Ref Range | Performed | Pathologist | | | | | At | Signature | + +---------+ + + + | GLUCOSE, | 206 (H) | 70 - 99 mg/dL | [facility] | | | PLASMA | | | LABORATORY | | | (LAB) | | | SERVICES, | | | | | | CORE | | + +---------+ + + + | BUN, PLASMA | 37 (H) | 6 - 20 mg/dL | [facility] | | | (LAB) | | | LABORATORY | | | | | | SERVICES, | | | | | | CORE | | + +---------+ + + + | CREATININE | 1.02 | 0.60 - 1.10 | [facility] | | | PLASMA | | mg/dL | LABORATORY | | | (LAB) | | | SERVICES, | | | | | | CORE | | + +---------+ + + + | EGFR | >60 | >60 mL/min | [facility] | | | - | | | LABORATORY | | | [place] | | | SERVICES, | | | | | | CORE | | + +---------+ + + + | EGFR NON | 55 (L) | >60 mL/min | [facility] | | | -[facility]SE[facility] | | | LABORATORY | | | [place] | | | SERVICES, | | | | | | CORE | | + +---------+ + + + | SODIUM, | 140 | 136 - 145 | [facility] | | | PLASMA | | mmol/L | LABORATORY | | | (LAB) | | | SERVICES, | | | | | | CORE | | + +---------+ + + + | POTASSIUM, | 4.0 | 3.4 - 5.0 | [facility] | | | PLASMA | | mmol/L | LABORATORY | | | (LAB) | | | SERVICES, | | | | | | CORE | | + +---------+ + + + | CHLORIDE, | 106 | 97 - 108 mmol/L | [facility] | | | PLASMA | | | LABORATORY | | | (LAB) | | | SERVICES, | | | | | | CORE | | + +---------+ + + + | TOTAL CO2, | 28 | 21 - 32 mmol/L | [facility] | | | PLASMA | | | LABORATORY | | | (LAB) | | | SERVICES, | | | | | | CORE | | + +---------+ + + + | CALCIUM, | 8.7 | 8.6 - 10.2 | [facility] | | | PLASMA | | mg/dL | LABORATORY | | | (LAB) | | | SERVICES, | | | | | | CORE | | + +---------+ + + + | CALCIUM(ALB | 9.7 | 8.6 - 10.2 | [facility] | | | CORRECTED) | | mg/dL | LABORATORY | | | | | | SERVICES, | | | | | | CORE | | + +---------+ + + + | ALBUMIN, | 2.7 (L) | 3.5 - 4.7 g/dL | [facility] | | | PLASMA | | | LABORATORY | | | (LAB) | | | SERVICES, | | | | | | CORE | | + +---------+ + + + | PHOSPHORUS, | 3.2 | 2.4 - 4.7 mg/dL | [facility] | | | PLASMA | | | LABORATORY | | | (LAB) | | | SERVICES, | | | | | | CORE | | + +---------+ + + + | POTASSIUM | No Hemo | | [facility] | | | CMNT | | | LABORATORY | | | | | | SERVICES, | | | | | | CORE | | + +---------+ + + + | ANION GAP | 6 | 4 - 11 mmol/L | [facility] | | | | | | LABORATORY | | | | | | SERVICES, | | | | | | CORE | | + +---------+ + + + | ANION | 9 | 4 - 11 mmol/L | [facility] | | | GAP(ALB | | | LABORATORY | | | CORRECTED) | | | SERVICES, | | | | | | CORE | | + +---------+ + + + + + | Specimen | + + | Blood | + + + + + | Narrative | Performed At | + + + | GFR is estimated using the MDRD equation recommended by the | [facility] | | National Kidney Disease Education Program. Estimated GFR | LABORATORY | | Interpretive Information: <60 mL/min/1.73 sq | SERVICES, CORE | | m Chronic Kidney Disease <15 mL/min/1.73 | | | sq m Kidney Failure Estimated GFR greater | | | that 60 mL/min/1.73 sq m is of limited clinical value. The MDRD | | | equation is not valid in the following situations: - Patients under | | | 18 years of age - Severe malnutrition or obesity - Vegetarian diet | | | - Rapidly changing kidney function - Amputees, paraplegics, or other | | | muscle-wasting diseses | | + + + + + + + + | Performing | Address | City/State/Zipcode | Phone Number | | Organization | | | | + + + + + | [facility] | [address] | [place] [address] | | | [place] | [address] | | | + + + + + CAPILLARY BLOOD GLUCOSE (NO CHG), POC (03/02/2018 5:56 AM PDT) + +---------+ + + + | Component | Value | Ref Range | Performed | Pathologist | | | | | At | Signature | + +---------+ + + + | BLOOD | 214 (H) | 70 - 99 mg/dL | [facility] - | | | GLUCOSE, | | | [facility] | | | POC | | | [place] | | | | | | OF CARE | | | | | | TESTS | | + +---------+ + + + + + | Specimen | + + | | + + + + + + + | Performing | Address | City/State/Zipcode | Phone Number | | Organization | | | | + + + + + | [facility] | [address] | [place], [place] | | | [facility] | [address] | [phone] | | | TESTS | | | | + + + + + CAPILLARY BLOOD GLUCOSE (NO CHG), POC (03/01/2018 11:22 PM PDT) + +---------+ + + + | Component | Value | Ref Range | Performed | Pathologist | | | | | At | Signature | + +---------+ + + + | BLOOD | 209 (H) | 70 - 99 mg/dL | [facility] - | | | GLUCOSE, | | | [facility] | | | POC | | | [facility] | | | | | | OF CARE | | | | | | TESTS | | + +---------+ + + + + + | Specimen | + + | | + + + + + + + | Performing | Address | City/State/Zipcode | Phone Number | | Organization | | | | + + + + + | [facility] | [address] | [place], [place] | | | [facility] | [address] | [phone] | | | TESTS | | | | + + + + + X-RAY PORTABLE ABDOMEN 1 VIEW (03/01/2018 10:38 PM PDT) + + | Specimen | + + | | + + + + + | Narrative | Performed At | + + + | EXAM: ME ABDOMEN 1 VIEW HISTORY: Enteric tube COMPARISON: | [facility] | | 02/23/80 IMPRESSION: Weighted enteric tube tip projects over | RADIOLOGY VOICE | | the gastric fundus. A nonobstructive bowel gas pattern is | RECOGNITION | | demonstrated. I have personally reviewed the images and, if | | | necessary, edited the report. I agree with the report as now | | | presented. | | + + + + + | Procedure Note | + + | Service Account, The[employer]ance In Interface - 03/02/2018 9:16 PM PDT EXAM: ME ABDOMEN | | 1 VIEWHISTORY: Enteric tubeCOMPARISON: 02/23/80IMPRESSION: Weighted enteric tube tip | | projects over the gastric fundus. A nonobstructive bowel gas pattern is demonstrated.I | | have personally reviewed the images and, if necessary, edited the report. I agree with | | the report as now presented. | | | |IMPRESSION: | | | |Weighted enteric tube tip projects over the gastric fundus. A nonobstructive bowel gas rosanna adalid is demonstrated. | | | | | |I have personally reviewed the images and, if necessary, edited the report. I agree with t he report as now presented. | + + + +---------+ + + | Performing | Address | City/State/Zipcode | Phone Number | | Organization | | | | + +---------+ + + | [facility] | | | | | VOICE RECOGNITION | | | | + +---------+ + + CAPILLARY BLOOD GLUCOSE (NO CHG), POC (03/01/2018 8:15 PM PDT) + +---------+ + + + | Component | Value | Ref Range | Performed | Pathologist | | | | | At | Signature | + +---------+ + + + | BLOOD | 216 (H) | 70 - 99 mg/dL | [facility] - | | | GLUCOSE, | | | [facility] | | | POC | | | [facility] | | | | | | OF CARE | | | | | | TESTS | | + +---------+ + + + + + | Specimen | + + | | + + + + + + + | Performing | Address | City/State/Zipcode | Phone Number | | Organization | | | | + + + + + | [facility] | [address] | [place], [place] | | | [facility] | [address] | [phone] | | | TESTS | | | | + + + + + X-RAY SPINAL TAP & ASPIRATION W/GUIDANCE (03/01/2018 7:58 PM PDT) + + | Specimen | + + | | + + + + + | Narrative | Performed At | + + + | PROCEDURE: Lumbar puncture with fluoroscopic guidance HISTORY: | [facility] | | Encephalopathy COMPARISON: 03/01/18 TECHNIQUE: Telephonic | RADIOLOGY VOICE | | consent was obtained from patient's sister as the patient unable to | RECOGNITION | | consent as the patient was under general anesthesia. The patient was | | | under general anesthesia for the procedure and was continuously | | | monitored by anesthesiology team during the procedure. Lumbar puncture | | | was performed under fluoroscopic guidance with standard aseptic | | | technique, additionally using 1% lidocaine for local | | | anesthesia. Lumbar puncture was performed at L1-L2 with a 20 gauge | | | 6 inch spinal needle. 18 mL clear colorless CSF was collected and sent | | | to the lab. No immediate complications. Physicians | | | present: Dr. aJmes, Dr. Wilkinson Fluoroscopy time: 27 sec | | | IMPRESSION: Successful lumbar puncture without complication. | | | By my electronic signature listed below, I, the attending | | | radiologist, was present for the critical portions of the procedure as | | | described in this note. I have personally reviewed | | | the images and, if necessary, edited the report. I agree with the | | | report as now presented. | | + + + + + | Procedure Note | + + | Service Account, Radiant Res In Interface - 03/02/2018 3:18 PM PDT PROCEDURE: Lumbar | | puncture with fluoroscopic guidanceHISTORY: EncephalopathyCOMPARISON: 03/01/18TECHNIQUE: | | Telephonic consent was obtained from patient's sister as the patient unable to consent | | as the patient was under general anesthesia. The patient was under general anesthesia | | for the procedure and was continuously monitored by anesthesiology team during the | | procedure. Lumbar puncture was performed under fluoroscopic guidance with standard | | aseptic technique, additionally using 1% lidocaine for local anesthesia. Lumbar | | puncture was performed at L1-L2 with a 20 gauge 6 inch spinal needle. 18 mL clear | | colorless CSF was collected and sent to the lab. No immediate complications. | | Physicians present: Dr. James, Dr. WilkinsonFluoroscopy time: 27 | | secIMPRESSION:Successful lumbar puncture without complication.By my electronic signature | | listed below, I, the attending radiologist, was present for the critical portions of | | the procedure as described in this note. I have personally reviewed the images and, if | | necessary, edited the report. I agree with the report as now presented. | | | |IMPRESSION: | | | |Successful lumbar puncture without complication. | | | | | |By my electronic signature listed below, I, the attending radiologist, was present for the critical portions of the procedure as described in this note. | | | | | | | | | | | |I have personally reviewed the images and, if necessary, edited the report. I agree with t he report as now presented. | + + + +---------+ + + | Performing | Address | City/State/Zipcode | Phone Number | | Organization | | | | + +---------+ + + | [facility] | | | | | VOICE RECOGNITION | | | | + +---------+ + + NON REHAB LIAISON CYTOLOGY (03/01/2018 7:54 PM PDT) + + + + + + | Component | Value | Ref Range | Performed | Pathologist | | | | | At | Signature | + + + + + + | Clinical | The patient is a 62 y.o. | | [facility] | | | History | female with ARDS | | DEPARTMENT | | | | secondary to | | OF | | | | metapneumovirus now with | | PATHOLOGY | | | | toxic metabolic | | | | | | encephalopathy. | | | | + + + + + + | Final | A. Cerebrospinal fluid; | | [facility] | Electronically | | Pathologic | Negative for | | DEPARTMENT | signed by | | Diagnosis | malignancy Case seen | | OF | Hao Guzman | | | by:Ally Lou, | | PATHOLOGY | Casey, | | | [place]([facility]) - | | | ,PhD on | | | CytotechnologistElizabet | | | 03/04/2018 at | | | h MD Rickie | | | 4:09 PM | | | | | | | | | Cytopathology | | | | | | FellowChristian | | | | | | MD Casey, PhD | | | | | | | | | | | | PathologistMy | | | | | | electronic signature | | | | | | indicates that I have | | | | | | personally reviewed all | | | | | | diagnostic slides, the | | | | | | gross and/or microscopic | | | | | | portion of this report | | | | | | and formulated the final | | | | | | diagnosis. | | | | + + + + + + | Microscopic | Adequacy: Satisfactory | | [facility] | | | Details | for evaluation. | | DEPARTMENT | | | | | | OF | | | | | | PATHOLOGY | | + + + + + + | Gross | a. Received is 3.5 mL of | | [facility] | | | Description | clear pink fluid for | | DEPARTMENT | | | | cytologic evaluation. | | OF | | | | One [employer] slide | | PATHOLOGY | | | | prepared. A cell block | | | | | | was not performed. | | | | + + + + + + + + | Specimen | + + | Fluid | + + + + + + + | Performing | Address | City/State/Zipcode | Phone Number | | Organization | | | | + + + + + | [facility]MENT | [address] | [place] [address] | | | PATHOLOGY | [address] | | | + + + + + LAB OTHER (03/01/2018 7:43 PM PDT) + + + + + + | Component | Value | Ref Range | Performed | Pathologist | | | | | At | Signature | + + + + + + | MISC REF | Encephalopathy, | | [facility] | | | TEST NAME | Autoimmune Evaluation, | | REFERENCE | | | | CSF | | LAB | | + + + + + + | MISC REF | | | [facility] | | | TEST RESULT | | | REFERENCE | | | | | | LAB | | + + + + + + | NORMAL | | | [facility] | | | RANGE | | | REFERENCE | | | | | | LAB | | + + + + + + | REFERRAL | Test performed by: | | [facility] | | | LAB NAME | [facility] | | REFERENCE | | | | [address] | | LAB | | | | [place] [address] | | | | + + + + + + + + | Specimen | + + | Cerebrospinal fluid | + + + + + | Narrative | Performed At | + + + | See scanned | [facility] | | report for Technical Results and further Interpretation and Comments. | REFERENCE LAB | | | | | | | + + + + + + + + | Performing | Address | City/State/Zipcode | Phone Number | | Organization | | | | + + + + + | [facility] | | | | + + + + + | [facility] | see below | | | + + + + + MENINGITIS/ENCEPHALITIS PCR (03/01/2018 7:43 PM PDT) + + + + + + | Component | Value | Ref Range | Performed | Pathologist | | | | | At | Signature | + + + + + + | ESCHERICHIA | Not Detected | Not Detected | [facility] | | | COL K1 BY | | | LABORATORY | | | PCR | | | SERVICES, | | | | | | CORE | | + + + + + + | HEMOPHILUS | Not Detected | Not Detected | [facility] | | | INFLUENZAE | | | LABORATORY | | | BY PCR | | | SERVICES, | | | | | | CORE | | + + + + + + | LISTERIA | Not Detected | Not Detected | [facility] | | | MONOCYTOGEN | | | LABORATORY | | | ES BY PCR | | | SERVICES, | | | | | | CORE | | + + + + + + | NEISSERIA | Not Detected | Not Detected | [facility] | | | MENINGITIDI | | | LABORATORY | | | S BY PCR | | | SERVICES, | | | | | | CORE | | + + + + + + | STREPTOCOCC | Not Detected | Not Detected | [facility] | | | US | | | LABORATORY | | | AGALACTIAE | | | SERVICES, | | | BY PCR | | | CORE | | + + + + + + | STREPTOCOCC | Not Detected | Not Detected | [facility] | | | US | | | LABORATORY | | | PNEUMONIAE | | | SERVICES, | | | BY PCR | | | CORE | | + + + + + + | CYTOMEGALOV | Not Detected | Not Detected | [facility] | | | IRUS (CMV) | | | LABORATORY | | | BY PCR | | | SERVICES, | | | | | | CORE | | + + + + + + | ENTEROVIRUS | Not Detected | Not Detected | [facility] | | | BY PCR | | | LABORATORY | | | | | | SERVICES, | | | | | | CORE | | + + + + + + | HERPES | Not Detected | Not Detected | [facility] | | | SIMPLEX | | | LABORATORY | | | VIRUS 1 ( | | | SERVICES, | | | HSV1) BY | | | CORE | | | PCR | | | | | + + + + + + | HERPES | Not Detected | Not Detected | [facility] | | | SIMPLEX | | | LABORATORY | | | VIRUS 2 ( | | | SERVICES, | | | HSV2) BY | | | CORE | | | PCR | | | | | + + + + + + | HUMAN | Not Detected | Not Detected | [facility] | | | HERPESVIRUS | | | LABORATORY | | | 6 ( HHV-6) | | | SERVICES, | | | BY PCR | | | CORE | | + + + + + + | HUMAN | Not Detected | Not Detected | [facility] | | | PARECHOVIRU | | | LABORATORY | | | S BY PCR | | | SERVICES, | | | | | | CORE | | + + + + + + | VARICELLA | Not Detected | Not Detected | [facility] | | | ZOSTER | | | LABORATORY | | | VIRUS (VZV) | | | SERVICES, | | | BY PCR | | | CORE | | + + + + + + | CRYPTOCOCCU | Not Detected | Not Detected | [facility] | | | S | | | LABORATORY | | | NEOFORMANS/ | | | SERVICES, | | | NICHOLE BY | | | CORE | | | PCR | | | | | + + + + + + + + | Specimen | + + | Cerebrospinal fluid | + + + + + | Narrative | Performed At | + + + | Not preferred sample, test run on frozen specimen. Approved by Dr. Mil GOMEZ | | | LABORATORY | | | SERVICES, CORE | + + + + + + + + | Performing | Address | City/State/Zipcode | Phone Number | | Organization | | | | + + + + + | [facility] | [address] | [place] [address] | | | SERVICES, CORE | [address] | | | + + + + + LAB HOLD - CSF (03/01/2018 7:43 PM PDT) + + | Specimen | + + | Cerebrospinal fluid | + + + + + + + | Performing | Address | City/State/Zipcode | Phone Number | | Organization | | | | + + + + + | [facility] | [address] | [place] [address] | | | [place] | [address] | | | + + + + + GRAM KATE ONLY, STAT (03/01/2018 7:43 PM PDT) + + + + + + | Component | Value | Ref Range | Performed | Pathologist | | | | | At | Signature | + + + + + + | GRAM STAIN | No organisms seen | No organisms | [facility] | | | RESULT | | seen | LABORATORY | | | | | | SERVICES, | | | | | | CORE | | + + + + + + | SMEAR | Cytospin | | [facility] | | | PREPARATION | | | LABORATORY | | | | | | SERVICES, | | | | | | CORE | | + + + + + + | SOURCE BODY | csf | | [facility] | | | SITE | | | LABORATORY | | | | | | SERVICES, | | | | | | CORE | | + + + + + + + + | Specimen | + + | Fluid | + + + + + | Narrative | Performed At | + + + | Few white blood cells seen. | [facility] | | | LABORATORY | | | SERVICES, OLUIS | + + + + + + + + | Performing | Address | City/State/Zipcode | Phone Number | | Organization | | | | + + + + + | [facility] | [address] | [place] [address] | | | SERVICES, CORE | [address] | | | + + + + + DIFFERENTIAL, CSF (03/01/2018 7:43 PM PDT) + +-------+ + + + | Component | Value | Ref Range | Performed | Pathologist | | | | | At | Signature | + +-------+ + + + | NEUTROPHIL | 2 | 0 - 6 % | [facility] | | | (CSF) | | | LABORATORY | | | | | | SERVICES, | | | | | | CORE | | + +-------+ + + + | LYMPHOCYTES | 69 | 40 - 80 % | [facility] | | | (CSF) | | | LABORATORY | | | | | | SERVICES, | | | | | | CORE | | + +-------+ + + + | MONOCYTES(C | 30 | 15 - 45 % | [facility] | | | SF) | | | LABORATORY | | | | | | SERVICES, | | | | | | CORE | | + +-------+ + + + | MACROPHAGES | 0 | % | [facility] | | | (CSF) | | | LABORATORY | | | | | | SERVICES, | | | | | | CORE | | + +-------+ + + + | EOSINOPHILS | 0 | % | [facility] | | | (CSF) | | | LABORATORY | | | | | | SERVICES, | | | | | | CORE | | + +-------+ + + + | BASOPHILS(C | 0 | % | [facility] | | | SF) | | | LABORATORY | | | | | | SERVICES, | | | | | | CORE | | + +-------+ + + + | LINING | 0 | % | [facility] | | | CELLS | | | LABORATORY | | | | | | SERVICES, | | | | | | CORE | | + +-------+ + + + | REACTIVE | 0 | % | [facility] | | | LYMPHS(CSF) | | | LABORATORY | | | | | | SERVICES, | | | | | | CORE | | + +-------+ + + + | ATYPICAL | 0 | 0.0 % | [facility] | | | CELLS(CSF) | | | LABORATORY | | | | | | SERVICES, | | | | | | CORE | | + +-------+ + + + | TOTAL CELL | 64 | | [facility] | | | COUNTED,CSF | | | LABORATORY | | | | | | SERVICES, | | | | | | CORE | | + +-------+ + + + + + | Specimen | + + | Cerebrospinal fluid | + + + + + | Narrative | Performed At | + + + | PLEASE SAVE ALL ADDITIONAL CSF FOR ADDITIONAL STUDIES | [facility] | | | LABORATORY | | | SERVICES, CORE | + + + + + + + + | Performing | Address | City/State/Zipcode | Phone Number | | Organization | | | | + + + + + | [facility] | [address] | [place] [address] | | | SERVICES, CORE | [address] | | | + + + + + CELL COUNT, CSF (03/01/2018 7:43 PM PDT) + + + + + + | Component | Value | Ref Range | Performed | Pathologist | | | | | At | Signature | + + + + + + | CSF | Bl Tinged (A) | Clear | [facility] | | | APPEARANCE | | | LABORATORY | | | | | | SERVICES, | | | | | | CORE | | + + + + + + | CSF COLOR | Colorless | Colorless | [facility] | | | | | | LABORATORY | | | | | | SERVICES, | | | | | | CORE | | + + + + + + | CSF TUBE | #3 | | [facility] | | | NUMBER | | | LABORATORY | | | | | | SERVICES, | | | | | | CORE | | + + + + + + | CSF WBC | <1 | 0 - 5 /cu mm | [facility] | | | | | | LABORATORY | | | | | | SERVICES, | | | | | | CORE | | + + + + + + | CSF RBC | 404 (H) | <1 /cu mm | [facility] | | | | | | LABORATORY | | | | | | SERVICES, | | | | | | CORE | | + + + + + + + + | Specimen | + + | Cerebrospinal fluid | + + + + + + + | Performing | Address | City/State/Zipcode | Phone Number | | Organization | | | | + + + + + | [facility] | [address] | [place] [address] | | | SERVICES, CORE | [address] | | | + + + + + PROTEIN, CSF (03/01/2018 7:43 PM PDT) + +--------+ + + + | Component | Value | Ref Range | Performed | Pathologist | | | | | At | Signature | + +--------+ + + + | TOTAL | 85 (H) | 15 - 45 mg/dL | [facility] | | | PROTEIN CSF | | | LABORATORY | | | | | | SERVICES, | | | | | | CORE | | + +--------+ + + + + + | Specimen | + + | Cerebrospinal fluid | + + + + + + + | Performing | Address | City/State/Zipcode | Phone Number | | Organization | | | | + + + + + | [facility] | [address] | [place] [address] | | | SERVICES, CORE | [address] | | | + + + + + LDH, CSF (03/01/2018 7:43 PM PDT) + +-------+ + + + | Component | Value | Ref Range | Performed | Pathologist | | | | | At | Signature | + +-------+ + + + | LDH CSF | 25 | U/L | [facility] | | | | | | LABORATORY | | | | | | SERVICES, | | | | | | CORE | | + +-------+ + + + + + | Specimen | + + | Cerebrospinal fluid | + + + + + + + | Performing | Address | City/State/Zipcode | Phone Number | | Organization | | | | + + + + + | [facility] | [address] | [place] [address] | | | SERVICES, CORE | [address] | | | + + + + + GLUCOSE, CSF (03/01/2018 7:43 PM PDT) + +---------+ + + + | Component | Value | Ref Range | Performed | Pathologist | | | | | At | Signature | + +---------+ + + + | GLUCOSE CSF | 114 (H) | 40 - 70 mg/dL | [facility] | | | | | | LABORATORY | | | | | | SERVICES, | | | | | | CORE | | + +---------+ + + + + + | Specimen | + + | Cerebrospinal fluid | + + + + + + + | Performing | Address | City/State/Zipcode | Phone Number | | Organization | | | | + + + + + | [facility] | [address] | [place] [address] | | | SERVICES, CORE | [address] | | | + + + + + CULTURE, CSF BACTI (03/01/2018 7:43 PM PDT) + + | Specimen | + + | Cerebrospinal fluid | + + + + + | Narrative | Performed At | + + + | Culture Report: No growth | [facility] | | [facility] | | | [place] | + + + + + + + + | Performing | Address | City/State/Zipcode | Phone Number | | Organization | | | | + + + + + | [facility] | [address] | [place] [address] | | | [place] | | | | + + + + + MRI BRAIN WWO CONTRAST (03/01/2018 6:16 PM PDT) + + | Specimen | + + | | + + + + + | Narrative | Performed At | + + + | EXAM: MRI brain without and with contrast HISTORY: | [facility] | | Encephalopathy COMPARISON: Head CT TECHNIQUE: | RADIOLOGY VOICE | | Multiplanar multi-sequence MRI of the brain without and with | RECOGNITION | | gadolinium based intravenous contrast. FINDINGS: Brain: | | | Subcentimeter focus of nonenhancing T2/flair hyperintensity in the | | | right occipital lobe is too small to actually characterize though is | | | favored to represent encephalomalacia, this is from prior ischemia. | | | Nonenhancing T2/flair hyperintensity is present in the posterior | | | inferior right putamen, also possibly representing sequela of prior | | | ischemia though nonspecific. There is generalized brain parenchymal | | | volume loss which is slightly greater than normal for patient age, | | | with distal portion at mesial temporal atrophy. No hydrocephalus, | | | herniation or mass. No acute infarction. No abnormal enhancement, | | | otherwise. Soft tissues and marrow: Unremarkable Face and orbits: | | | Sphenoid sinus fluid and mucosal thickening noted. IMPRESSION: | | | 1. No cause for patient's encephalopathy identified. No definite | | | acute intracranial abnormality. 2. Generalized brain parenchymal | | | volume loss, likely greater than normal for patient age. 3. Scattered | | | nonspecific parenchymal T2/flair hyperintense foci, discussed above, | | | favored to represent sequela of prior ischemia. I have | | | personally reviewed the images and, if necessary, edited the | | | report. I agree with the report as now presented. | | + + + + + | Procedure Note | + + | Service Account, Radiant Res In Interface - 03/01/2018 11:19 PM PDT EXAM: MRI brain | | without and with contrastHISTORY: EncephalopathyCOMPARISON: Head CT TECHNIQUE: | | Multiplanar multi-sequence MRI of the brain without and with gadolinium based | | intravenous contrast.FINDINGS:Brain: Subcentimeter focus of nonenhancing T2/flair | | hyperintensity in the right occipital lobe is too small to actually characterize though | | is favored to represent encephalomalacia, this is from prior ischemia. Nonenhancing | | T2/flair hyperintensity is present in the posterior inferior right putamen, also | | possibly representing sequela of prior ischemia though nonspecific. There is generalized | | brain parenchymal volume loss which is slightly greater than normal for patient age, | | with distal portion at mesial temporal atrophy. No hydrocephalus, herniation or mass. No | | acute infarction. No abnormal enhancement, otherwise.Soft tissues and marrow: | | UnremarkableFace and orbits: Sphenoid sinus fluid and mucosal thickening | | noted.IMPRESSION:1. No cause for patient's encephalopathy identified. No definite acute | | intracranial abnormality.2. Generalized brain parenchymal volume loss, likely greater | | than normal for patient age.3. Scattered nonspecific parenchymal T2/flair hyperintense | | foci, discussed above, favored to represent sequela of prior ischemia.I have personally | | reviewed the images and, if necessary, edited the report. I agree with the report as | | now presented. | | | |1. No cause for patient's encephalopathy identified. No definite acute intracranial abnorma lity. | |2. Generalized brain parenchymal volume loss, likely greater than normal for patient age. | |3. Scattered nonspecific parenchymal T2/flair hyperintense foci, discussed above, favored t o represent sequela of prior ischemia. | | | | | |I have personally reviewed the images and, if necessary, edited the report. I agree with t he report as now presented. | + + + +---------+ + + | Performing | Address | City/State/Zipcode | Phone Number | | Organization | | | | + +---------+ + + | [facility] | | | | | VOICE RECOGNITION | | | | + +---------+ + + MRI SPINE LUMBAR WO CONTRAST (03/01/2018 5:37 PM PDT) + + | Specimen | + + | | + + + + + | Narrative | Performed At | + + + | EXAM: MRI lumbar spine without contrast HISTORY: Planning for a | [facility] | | lumbar puncture COMPARISON: None TECHNIQUE: Sagittal and axial | RADIOLOGY VOICE | | T2 MRI lumbar spine without contrast. FINDINGS: | RECOGNITION | | Alignment: 5 mm grade I anterolisthesis of L5 on S1 with bilateral | | | L5 pars interarticularis defects noted. Marrow: | | | Well-circumscribed T2 hyperintense lesions are present within the L1, | | | L3, and L4 vertebral bodies, likely hemangiomas though incompletely | | | characterized on this limited T2-weighted imaging of the lumbar | | | spine.. Conus: Unremarkable L1-2: Unremarkable L2-3: | | | Minimal posterior disc bulge. L3-4: Posterior disc bulge causes | | | narrowing of the lateral recesses, and in combination with facet | | | hypertrophy contributes to moderate bilateral neuroforaminal stenosis. | | | L4-5: Posterior disc bulge causes narrowing of the lateral | | | recesses, and in combination with facet hypertrophy contributes to | | | moderately severe right and moderate left neuroforaminal stenosis. | | | Possible small subdural fluid collection is noted in the ventral | | | canal, incompletely characterized on these T2-weighted images. | | | L5-S1: Posterior disc bulge causes narrowing of the lateral | | | recesses, and in combination with facet hypertrophy contributes to | | | moderately severe right and moderate left neuroforaminal stenosis. | | | Paraspinal soft tissues: Unremarkable IMPRESSION: | | | Multilevel degenerative changes, as described above. No high-grade | | | central canal stenosis. Possible small subdural fluid collection in | | | the ventral canal at L4-5, incompletely characterized here. L5 pars | | | interarticularis defects noted bilaterally. I have personally | | | reviewed the images and, if necessary, edited the report. I agree | | | with the report as now presented. | | + + + + + | Procedure Note | + + | Service Account, Radiant Res In Interface - 03/01/2018 6:07 PM PDT EXAM: MRI lumbar | | spine without contrastHISTORY: Planning for a lumbar punctureCOMPARISON: NoneTECHNIQUE: | | Sagittal and axial T2 MRI lumbar spine without contrast.FINDINGS: Alignment: 5 mm grade | | I anterolisthesis of L5 on S1 with bilateral L5 pars interarticularis defects noted. | | Marrow: Well-circumscribed T2 hyperintense lesions are present within the L1, L3, and L4 | | vertebral bodies, likely hemangiomas though incompletely characterized on this limited | | T2-weighted imaging of the lumbar spine.. Conus: Unremarkable L1-2: Unremarkable | | L2-3: Minimal posterior disc bulge. L3-4: Posterior disc bulge causes narrowing of the | | lateral recesses, and in combination with facet hypertrophy contributes to moderate | | bilateral neuroforaminal stenosis. L4-5: Posterior disc bulge causes narrowing of the | | lateral recesses, and in combination with facet hypertrophy contributes to moderately | | severe right and moderate left neuroforaminal stenosis. Possible small subdural fluid | | collection is noted in the ventral canal, incompletely characterized on these | | T2-weighted images. L5-S1: Posterior disc bulge causes narrowing of the lateral | | recesses, and in combination with facet hypertrophy contributes to moderately severe | | right and moderate left neuroforaminal stenosis. Paraspinal soft tissues: | | UnremarkableIMPRESSION:Multilevel degenerative changes, as described above. No | | high-grade central canal stenosis.Possible small subdural fluid collection in the | | ventral canal at L4-5, incompletely characterized here.L5 pars interarticularis defects | | noted bilaterally.I have personally reviewed the images and, if necessary, edited the | | report. I agree with the report as now presented. | | Paraspinal soft tissues: Unremarkable | | | |IMPRESSION: | | | |Multilevel degenerative changes, as described above. No high-grade central canal stenosis. | |Possible small subdural fluid collection in the ventral canal at L4-5, incompletely charact erized here. | |L5 pars interarticularis defects noted bilaterally. | | | | | |I have personally reviewed the images and, if necessary, edited the report. I agree with t he report as now presented. | + + + +---------+ + + | Performing | Address | City/State/Zipcode | Phone Number | | Organization | | | | + +---------+ + + | [facility] | | | | | VOICE RECOGNITION | | | | + +---------+ + + CAPILLARY BLOOD GLUCOSE (NO CHG), POC (03/01/2018 12:24 PM PDT) + +---------+ + + + | Component | Value | Ref Range | Performed | Pathologist | | | | | At | Signature | + +---------+ + + + | BLOOD | 209 (H) | 70 - 99 mg/dL | [facility] | | | GLUCOSE, | | | [facility] | | | POC | | | [facility] | | | | | | OF CARE | | | | | | TESTS | | + +---------+ + + + + + | Specimen | + + | | + + + + + + + | Performing | Address | City/State/Zipcode | Phone Number | | Organization | | | | + + + + + | [facility] | [address] | [place], [place] | | | [facility] | [address] | [address] | | | TESTS | | | | + + + + + CBC AND AUTO DIFF (03/01/2018 8:21 AM PDT) + + + + + + | Component | Value | Ref Range | Performed | Pathologist | | | | | At | Signature | + + + + + + | WHITE CELL | 9.92 | 3.50 - 10.80 | [facility] | | | COUNT | | K/cu mm | LABORATORY | | | | | | SERVICES, | | | | | | CORE | | + + + + + + | RED CELL | 5.08 | 4.00 - 5.20 | [facility] | | | COUNT | | M/cu mm | LABORATORY | | | | | | SERVICES, | | | | | | CORE | | + + + + + + | HEMOGLOBIN | 13.9 | 12.0 - 16.0 | [facility] | | | | | g/dL | LABORATORY | | | | | | SERVICES, | | | | | | CORE | | + + + + + + | HEMATOCRIT | 44.6 | 36.0 - 46.0 % | [facility] | | | | | | LABORATORY | | | | | | SERVICES, | | | | | | CORE | | + + + + + + | MCV | 87.8 | 80.0 - 96.0 fL | [facility] | | | | | | LABORATORY | | | | | | SERVICES, | | | | | | CORE | | + + + + + + | MCHC | 31.2 | 33.0 - 35.5 | [facility] | | | | | g/dL | LABORATORY | | | | | | SERVICES, | | | | | | CORE | | + + + + + + | RDW SD | 44.7 | 35.1 - 46.3 fL | [facility] | | | | | | LABORATORY | | | | | | SERVICES, | | | | | | CORE | | + + + + + + | PLATELET | 313 | 150 - 400 K/cu | [facility] | | | COUNT | | mm | LABORATORY | | | | | | SERVICES, | | | | | | CORE | | + + + + + + | MPV | 10.0 | 9.7 - 12.3 fL | [facility] | | | | | | LABORATORY | | | | | | SERVICES, | | | | | | CORE | | + + + + + + | NRBC% | 0.0 | 0.0 - 0.3 % | [facility] | | | | | | LABORATORY | | | | | | SERVICES, | | | | | | CORE | | + + + + + + | NRBC# | 0.00 | 0.00 - 0.02 | [facility] | | | | | K/cu mm | LABORATORY | | | | | | SERVICES, | | | | | | CORE | | + + + + + + | NEUTROPHIL | 67.6 | 50.0 - 70.0 % | [facility] | | | % | | | LABORATORY | | | | | | SERVICES, | | | | | | CORE | | + + + + + + | LYMPHOCYTE | 20.3 | 18.0 - 42.0 % | [facility] | | | % | | | LABORATORY | | | | | | SERVICES, | | | | | | CORE | | + + + + + + | MONOCYTE % | 8.2 | 3.5 - 9.0 % | [facility] | | | | | | LABORATORY | | | | | | SERVICES, | | | | | | CORE | | + + + + + + | EOS % | 2.9 | 1.0 - 3.0 % | [facility] | | | | | | LABORATORY | | | | | | SERVICES, | | | | | | CORE | | + + + + + + | BASO % | 0.7 | 0.0 - 2.0 % | [facility] | | | | | | LABORATORY | | | | | | SERVICES, | | | | | | CORE | | + + + + + + | IG% | 0.3Comment: Increased | 0.0 - 1.0 % | [facility] | | | | immature granulocytes | | LABORATORY | | | | (IG) define a left | | SERVICES, | | | | shift. Immature | | CORE | | | | granulocytes (IG) are an | | | | | | automated count of | | | | | | metamyelocytes, | | | | | | myelocytes and | | | | | | promyelocytes. Bands | | | | | | are not included in the | | | | | | IG count. Bands are | | | | | | included in the | | | | | | neutrophil count. | | | | + + + + + + | NEUTROPHIL | 6.71 | 1.80 - 7.70 | [facility] | | | # | | K/cu mm | LABORATORY | | | | | | SERVICES, | | | | | | CORE | | + + + + + + | LYMPHOCYTE | 2.01 | 1.00 - 4.80 | [facility] | | | # | | K/cu mm | LABORATORY | | | | | | SERVICES, | | | | | | CORE | | + + + + + + | MONOCYTE # | 0.81 | 0.10 - 0.90 | [facility] | | | | | K/cu mm | LABORATORY | | | | | | SERVICES, | | | | | | CORE | | + + + + + + | EOS # | 0.29 | 0.00 - 0.50 | [facility] | | | | | K/cu mm | LABORATORY | | | | | | SERVICES, | | | | | | CORE | | + + + + + + | BASO # | 0.07 | 0.00 - 0.10 | [facility] | | | | | K/cu mm | LABORATORY | | | | | | SERVICES, | | | | | | CORE | | + + + + + + | IG# | 0.03 | 0.00 - 0.10 | [facility] | | | | | K/cu mm | LABORATORY | | | | | | SERVICES, | | | | | | CORE | | + + + + + + + + | Specimen | + + | Blood | + + + + + | Narrative | Performed At | + + + | New reference ranges for IG% and IG# effective 12/02/2017. | [facility] | | Increased immature granulocytes (IG) define a left shift. Immature | LABORATORY | | granulocytes (IG) are an automated count of metamyelocytes, myelocytes | SERVICES, CORE | | and promyelocytes. Bands are not included in the IG count. Bands are | | | included in the neutrophil count. | | + + + + + + + + | Performing | Address | City/State/Zipcode | Phone Number | | Organization | | | | + + + + + | [facility] | [address] | [place] [address] | | | SERVICES, CORE | [address] | | | + + + + + RENAL FUNCTION SET (NA,K,CL,CO2,BUN,CREAT,GLUC,CA,PHOS,ALB ) (03/01/2018 8:21 AM PDT) + +---------+ + + + | Component | Value | Ref Range | Performed | Pathologist | | | | | At | Signature | + +---------+ + + + | GLUCOSE, | 186 (H) | 70 - 99 mg/dL | [facility] | | | PLASMA | | | LABORATORY | | | (LAB) | | | SERVICES, | | | | | | CORE | | + +---------+ + + + | BUN, PLASMA | 32 (H) | 6 - 20 mg/dL | [facility] | | | (LAB) | | | LABORATORY | | | | | | SERVICES, | | | | | | CORE | | + +---------+ + + + | CREATININE | 0.96 | 0.60 - 1.10 | [facility] | | | PLASMA | | mg/dL | LABORATORY | | | (LAB) | | | SERVICES, | | | | | | CORE | | + +---------+ + + + | EGFR | >60 | >60 mL/min | [facility] | | | - | | | LABORATORY | | | [place] | | | SERVICES, | | | | | | CORE | | + +---------+ + + + | EGFR NON | 59 (L) | >60 mL/min | [facility] | | | -[facility] | | | LABORATORY | | | [facility] | | | SERVICES, | | | | | | CORE | | + +---------+ + + + | SODIUM, | 141 | 136 - 145 | [facility] | | | PLASMA | | mmol/L | LABORATORY | | | (LAB) | | | SERVICES, | | | | | | CORE | | + +---------+ + + + | POTASSIUM, | 4.0 | 3.4 - 5.0 | [facility] | | | PLASMA | | mmol/L | LABORATORY | | | (LAB) | | | SERVICES, | | | | | | CORE | | + +---------+ + + + | CHLORIDE, | 104 | 97 - 108 mmol/L | [facility] | | | PLASMA | | | LABORATORY | | | (LAB) | | | SERVICES, | | | | | | CORE | | + +---------+ + + + | TOTAL CO2, | 29 | 21 - 32 mmol/L | [facility] | | | PLASMA | | | LABORATORY | | | (LAB) | | | SERVICES, | | | | | | CORE | | + +---------+ + + + | CALCIUM, | 8.9 | 8.6 - 10.2 | [facility] | | | PLASMA | | mg/dL | LABORATORY | | | (LAB) | | | SERVICES, | | | | | | CORE | | + +---------+ + + + | CALCIUM(ALB | 9.9 | 8.6 - 10.2 | [facility] | | | CORRECTED) | | mg/dL | LABORATORY | | | | | | SERVICES, | | | | | | CORE | | + +---------+ + + + | ALBUMIN, | 2.8 (L) | 3.5 - 4.7 g/dL | [facility] | | | PLASMA | | | LABORATORY | | | (LAB) | | | SERVICES, | | | | | | CORE | | + +---------+ + + + | PHOSPHORUS, | 3.0 | 2.4 - 4.7 mg/dL | [facility] | | | PLASMA | | | LABORATORY | | | (LAB) | | | SERVICES, | | | | | | CORE | | + +---------+ + + + | POTASSIUM | No Hemo | | [facility] | | | CMNT | | | LABORATORY | | | | | | SERVICES, | | | | | | CORE | | + +---------+ + + + | ANION GAP | 8 | 4 - 11 mmol/L | [facility] | | | | | | LABORATORY | | | | | | SERVICES, | | | | | | CORE | | + +---------+ + + + | ANION | 11 | 4 - 11 mmol/L | [facility] | | | GAP(ALB | | | LABORATORY | | | CORRECTED) | | | SERVICES, | | | | | | CORE | | + +---------+ + + + + + | Specimen | + + | Blood | + + + + + | Narrative | Performed At | + + + | GFR is estimated using the MDRD equation recommended by the | [facility] | | National Kidney Disease Education Program. Estimated GFR | LABORATORY | | Interpretive Information: <60 mL/min/1.73 sq | SERVICES, CORE | | m Chronic Kidney Disease <15 mL/min/1.73 | | | sq m Kidney Failure Estimated GFR greater | | | that 60 mL/min/1.73 sq m is of limited clinical value. The MDRD | | | equation is not valid in the following situations: - Patients under | | | 18 years of age - Severe malnutrition or obesity - Vegetarian diet | | | - Rapidly changing kidney function - Amputees, paraplegics, or other | | | muscle-wasting diseses | | + + + + + + + + | Performing | Address | City/State/Zipcode | Phone Number | | Organization | | | | + + + + + | [facility] | [address] | [place] [address] | | | SERVICES, CORE | [address] | | | + + + + + CAPILLARY BLOOD GLUCOSE (NO CHG), POC (03/01/2018 6:17 AM PDT) + +---------+ + + + | Component | Value | Ref Range | Performed | Pathologist | | | | | At | Signature | + +---------+ + + + | BLOOD | 160 (H) | 70 - 99 mg/dL | [facility] - | | | GLUCOSE, | | | [place] | | | POC | | | [facility] | | | | | | OF CARE | | | | | | TESTS | | + +---------+ + + + + + | Specimen | + + | | + + + + + + + | Performing | Address | City/State/Zipcode | Phone Number | | Organization | | | | + + + + + | [facility] | [address] | [place], [place] | | | [facility] | [address] | [address] | | | TESTS | | | | + + + + + ANESTHESIA/SEDATION (03/01/2018 12:00 AM PDT) + + + | Narrative | Performed At | + + + | | | + + + CAPILLARY BLOOD GLUCOSE (NO CHG), POC (02/28/2018 11:38 PM PDT) + +---------+ + + + | Component | Value | Ref Range | Performed | Pathologist | | | | | At | Signature | + +---------+ + + + | BLOOD | 200 (H) | 70 - 99 mg/dL | [facility] - | | | GLUCOSE, | | | [place] | | | POC | | | [facility] | | | | | | OF CARE | | | | | | TESTS | | + +---------+ + + + + + | Specimen | + + | | + + + + + + + | Performing | Address | City/State/Zipcode | Phone Number | | Organization | | | | + + + + + | [facility] | [address] | [place], [place] | | | [facility] | [address] | [phone] | | | TESTS | | | | + + + + + CAPILLARY BLOOD GLUCOSE (NO CHG), POC (02/28/2018 6:55 PM PDT) + +---------+ + + + | Component | Value | Ref Range | Performed | Pathologist | | | | | At | Signature | + +---------+ + + + | BLOOD | 191 (H) | 70 - 99 mg/dL | [facility] - | | | GLUCOSE, | | | [place] | | | POC | | | [facility] | | | | | | OF CARE | | | | | | TESTS | | + +---------+ + + + + + | Specimen | + + | | + + + + + + + | Performing | Address | City/State/Zipcode | Phone Number | | Organization | | | | + + + + + | [facility] | [address] | [place], [place] | | | [facility] | [facility] | [phone] | | | TESTS | | | | + + + + + EEG ROUTINE (02/28/2018 2:52 PM PDT) + + + | Narrative | Performed At | + + + | Patient Name: Sarah Reeves Date of : 1955 | [facility] - | | Date of Test: 02/28/2018 Place | [facility], | | of Service: [facility] [phone] - [facility] Department: EEG [facility] - | POINT OF CARE | | ROUTINE EEG Indications: Evaluate for seizures and | TESTS | | epileptiform discharges History: 62 year old with history of | | | hypertension, heart failure, diabetes, obstructive sleep apnea who was | | | admitted for acute hypoxic respiratory failure. Medications: | | | Current Facility-Administered Medications: acetaminophen (TYLENOL) | | | oral suspension 1,000 mg, 1,000 mg, feeding tube, TID PRN amLODIPine | | | (NORVASC) tablet 10 mg, 10 mg, feeding tube, DAILY | | | amoxicillin-clavulanate (AUGMENTIN) 875-125 mg 875 mg, 875 mg, feeding | | | tube, BID aspirin chewable tablet 81 mg, 81 mg, feeding tube, DAILY | | | atorvastatin (LIPITOR) tablet 80 mg, 80 mg, feeding tube, DAILY | | | budesonide (PULMICORT) 0.5 mg/2 mL nebulizer suspension 0.5 mg, 0.5 | | | mg, inhalation, BID carvedilol (COREG) tablet 25 mg, 25 mg, feeding | | | tube, BID dextrose 50 % in water IV 25 mL, 25 mL, intravenous, PRN | | | diphenhydrAMINE-zinc acetate (BENADRYL ITCH STOPPING) 2-0.1 % cream, , | | | topical, QID PRN fluticasone (FLONASE) 50 mcg/actuation nasal spray | | | 2 spray, 2 spray, both nostrils, BID glucagon (GLUCAGEN) injection 1 | | | mg, 1 mg, intramuscular, PRN glucose chewable tablet 4-40 g, 4-40 g, | | | oral, PRN guar gum (BENEFIBER) oral powder 1 packet, 1 packet, | | | feeding tube, DAILY influenza vaccine (FLUZONE) (PF) IM injection | | | (age 3 years or greater) 0.5 mL, 0.5 mL, intramuscular, Day of | | | Discharge insulin lispro (HUMALOG) injection, , subcutaneous, QID | | | insulin NPH (HUMULIN N) injection 12 Units, 12 Units, subcutaneous, | | | Q8H ipratropium-albuterol (DUO-NEB) nebulizer solution 3 mL, 3 mL, | | | inhalation, Q6H PRN melatonin tablet 3 mg, 3 mg, feeding tube, QPM | | | menthol-zinc oxide (CALAZIME) topical paste 0.2%-16.5%, , topical, QID | | | PRN miconazole (SECURA) 2 % extra thick cream, , topical, BID | | | nystatin (MYCOSTATIN) powder, , topical, BID nystatin (MYCOSTATIN) | | | suspension 500,000 Units, 500,000 Units, oral, QID nystatin-zinc | | | oxide-lidocaine (NDX) ointment (compound), , topical, TID | | | polyethylene glycol (MIRALAX) packet 34 g, 34 g, feeding tube, TID PRN | | | probiotic kefir (KEYONNA'S KEFIR), , feeding tube, TID QUEtiapine | | | (SEROQUEL) tablet 50 mg, 50 mg, feeding tube, QPM senna (SENOKOT) | | | liquid 17.6 mg, 10 mL, feeding tube, BID PRN sertraline (ZOLOFT) | | | tablet 100 mg, 100 mg, feeding tube, DAILY white petrolatum-mineral | | | oil-lanolin (LACRILUBE) 83-15 % ophthalmic ointment, , Both Eyes, PRN | | | Methods: This study was a routine EEG with a duration of 25 | | | minutes, 30 seconds. The recording was performed with routine | | | electrodes applied according to the 10-20 electrode placement system. | | | Video, EKG, and EOG monitoring were utilized. The recording was | | | obtained on a digital system. EEG computer review was utilized. | | | Automated digital spike and seizure detection analysis was used, along | | | with patient-activated alarms and nursing observations. EEG | | | Description The record was obtained in awake and drowsy states. No | | | sedation was used. The background is continuous and symmetric, | | | consisting of a 6 hz theta activity with occasional mixture of faster | | | overlying alpha activity. Normal anterior to posterior gradient was | | | poorly preserved and no clear posterior dominant rhythm was noted. In | | | drowsiness, there was a reduction in myogenic artifact. No clear sleep | | | architecture was noted. Interictal Findings: Abnormal slow | | | wave activity: Mild to moderate continuous background slowing as | | | described above. Epileptiform activity: None Ictal Activity: | | | No seizures were observed. Clinical Events: None Other | | | variants: None Activation: a) Hyperventilation was not | | | performed as patient was not following commands. b) Intermittent | | | photic stimuli was performed, symmetric bilateral driving of the | | | occipital rhythms appeared. Extra leads: Single EKG lead showed a | | | normal sinus rhythm. IMPRESSION This awake and drowsy routine | | | EEG is abnormal due to mild to moderate generalized slowing. This | | | degree of slowing correlates to a mild to moderate encephalopathy that | | | is nonspecific in etiology. No epileptiform activity or seizures | | | captured. James Mares DO Epilepsy Fellow [facility] Comprehensive | | | Epilepsy Center NEUROLOGY ATTENDING ATTESTATION I independently | | | reviewed the EEG record, edited the report as necessary, and agree | | | with the fellow's interpretation as documented. Date of Service: | | | 02/28/18 Viridiana Ramos MD Materials Development Engineer, | | | Neurology/Epilepsy | | | | | | Billing/Coding: Provider: Viridiana Ramos MD Date: 02/28/18 | | | Suggested Modifier: GC - Resident Present Suggested CPT: 43496 - EEG | | | Routine Awake Only Suggested Dx: G93.49 Other encephalopathy | | + + + + + + + + | Performing | Address | City/State/Zipcode | Phone Number | | Organization | | | | + + + + + | [facility] | [address] | [place], [place] | | | [facility] | [address] | [phone] | | | TESTS | | | | + + + + + BLOOD GASES, VENOUS - LAB (02/28/2018 1:16 PM PDT) + +---------+ + + + | Component | Value | Ref Range | Performed | Pathologist | | | | | At | Signature | + +---------+ + + + | PH VENOUS | 7.44 | 7.35 - 7.45 | [facility] | | | | | | LABORATORY | | | | | | SERVICES, | | | | | | CORE | | + +---------+ + + + | PCO2 VENOUS | 44 | 35 - 50 mmHg | [facility] | | | | | | LABORATORY | | | | | | SERVICES, | | | | | | CORE | | + +---------+ + + + | PO2 VENOUS | 54 | 30 - 55 mmHg | [facility] | | | | | | LABORATORY | | | | | | SERVICES, | | | | | | CORE | | + +---------+ + + + | HCO3 VENOUS | 29 (H) | 22 - 28 mmol/L | [facility] | | | | | | LABORATORY | | | | | | SERVICES, | | | | | | CORE | | + +---------+ + + + | BASE EXCESS | 4.7 (H) | -3.0 - 3.0 | [facility] | | | VENOUS | | mmol/L | LABORATORY | | | | | | SERVICES, | | | | | | CORE | | + +---------+ + + + | O2 SAT, | 89.6 | No range has | [facility] | | | VENOUS | | been | LABORATORY | | | | | established % | SERVICES, | | | | | | CORE | | + +---------+ + + + | TOTAL CO2 | 30 (H) | 23 - 29 mmol/L | [facility] | | | VENOUS | | | LABORATORY | | | | | | SERVICES, | | | | | | CORE | | + +---------+ + + + + + | Specimen | + + | Blood | + + + + + + + | Performing | Address | City/State/Zipcode | Phone Number | | Organization | | | | + + + + + | [facility] | [address] | [place] [address] | | | SERVICES, CORE | [address] | | | + + + + + CAPILLARY BLOOD GLUCOSE (NO CHG), POC (02/28/2018 12:29 PM PDT) + +---------+ + + + | Component | Value | Ref Range | Performed | Pathologist | | | | | At | Signature | + +---------+ + + + | BLOOD | 208 (H) | 70 - 99 mg/dL | [facility] - | | | GLUCOSE, | | | [place] | | | POC | | | [facility] | | | | | | OF CARE | | | | | | TESTS | | + +---------+ + + + + + | Specimen | + + | | + + + + + + + | Performing | Address | City/State/Zipcode | Phone Number | | Organization | | | | + + + + + | [facility] | [address] | [place], [place] | | | [facility] [place] | [facility] | [phone] | | | TESTS | | | | + + + + + RENAL FUNCTION SET (NA,K,CL,CO2,BUN,CREAT,GLUC,CA,PHOS,ALB ) (02/28/2018 6:46 AM PDT) + +---------+ + + + | Component | Value | Ref Range | Performed | Pathologist | | | | | At | Signature | + +---------+ + + + | GLUCOSE, | 205 (H) | 70 - 99 mg/dL | [facility] | | | PLASMA | | | LABORATORY | | | (LAB) | | | SERVICES, | | | | | | CORE | | + +---------+ + + + | BUN, PLASMA | 36 (H) | 6 - 20 mg/dL | [facility] | | | (LAB) | | | LABORATORY | | | | | | SERVICES, | | | | | | CORE | | + +---------+ + + + | CREATININE | 0.90 | 0.60 - 1.10 | [facility] | | | PLASMA | | mg/dL | LABORATORY | | | (LAB) | | | SERVICES, | | | | | | CORE | | + +---------+ + + + | EGFR | >60 | >60 mL/min | [facility] | | | - | | | LABORATORY | | | [place] | | | SERVICES, | | | | | | CORE | | + +---------+ + + + | EGFR NON | >60 | >60 mL/min | [facility] | | | -[facility] | | | LABORATORY | | | [facility] | | | SERVICES, | | | | | | CORE | | + +---------+ + + + | SODIUM, | 141 | 136 - 145 | [facility] | | | PLASMA | | mmol/L | LABORATORY | | | (LAB) | | | SERVICES, | | | | | | CORE | | + +---------+ + + + | POTASSIUM, | 4.1 | 3.4 - 5.0 | [facility] | | | PLASMA | | mmol/L | LABORATORY | | | (LAB) | | | SERVICES, | | | | | | CORE | | + +---------+ + + + | CHLORIDE, | 107 | 97 - 108 mmol/L | [facility] | | | PLASMA | | | LABORATORY | | | (LAB) | | | SERVICES, | | | | | | CORE | | + +---------+ + + + | TOTAL CO2, | 29 | 21 - 32 mmol/L | [facility] | | | PLASMA | | | LABORATORY | | | (LAB) | | | SERVICES, | | | | | | CORE | | + +---------+ + + + | CALCIUM, | 8.8 | 8.6 - 10.2 | [facility] | | | PLASMA | | mg/dL | LABORATORY | | | (LAB) | | | SERVICES, | | | | | | CORE | | + +---------+ + + + | CALCIUM(ALB | 10.0 | 8.6 - 10.2 | [facility] | | | CORRECTED) | | mg/dL | LABORATORY | | | | | | SERVICES, | | | | | | CORE | | + +---------+ + + + | ALBUMIN, | 2.5 (L) | 3.5 - 4.7 g/dL | [facility] | | | PLASMA | | | LABORATORY | | | (LAB) | | | SERVICES, | | | | | | CORE | | + +---------+ + + + | PHOSPHORUS, | 2.8 | 2.4 - 4.7 mg/dL | [facility] | | | PLASMA | | | LABORATORY | | | (LAB) | | | SERVICES, | | | | | | CORE | | + +---------+ + + + | POTASSIUM | No Hemo | | [facility] | | | CMNT | | | LABORATORY | | | | | | SERVICES, | | | | | | CORE | | + +---------+ + + + | ANION GAP | 5 | 4 - 11 mmol/L | [facility] | | | | | | LABORATORY | | | | | | SERVICES, | | | | | | CORE | | + +---------+ + + + | ANION | 8 | 4 - 11 mmol/L | [facility] | | | GAP(ALB | | | LABORATORY | | | CORRECTED) | | | SERVICES, | | | | | | CORE | | + +---------+ + + + + + | Specimen | + + | Blood | + + + + + | Narrative | Performed At | + + + | Adult glucose reference range change effective 7-12-17. GFR is | [facility] | | estimated using the MDRD equation recommended by the National Kidney | LABORATORY | | Disease Education Program. Estimated GFR Interpretive Information: | SERVICES, CORE | | <60 mL/min/1.73 sq m Chronic Kidney | | | Disease <15 mL/min/1.73 sq m Kidney | | | Failure Estimated GFR greater that 60 mL/min/1.73 sq m is of limited | | | clinical value. The MDRD equation is not valid in the following | | | situations: - Patients under 18 years of age - Severe malnutrition | | | or obesity - Vegetarian diet - Rapidly changing kidney function | | + + + + + + + + | Performing | Address | City/State/Zipcode | Phone Number | | Organization | | | | + + + + + | [facility] | [address] | [place] [address] | | | SERVICES, CORE | [address] | | | + + + + + CBC AND AUTO DIFF (02/28/2018 6:45 AM PDT) + + + + + + | Component | Value | Ref Range | Performed | Pathologist | | | | | At | Signature | + + + + + + | WHITE CELL | 10.97 (H) | 3.50 - 10.80 | [facility] | | | COUNT | | K/cu mm | LABORATORY | | | | | | SERVICES, | | | | | | CORE | | + + + + + + | RED CELL | 4.98 | 4.00 - 5.20 | [facility] | | | COUNT | | M/cu mm | LABORATORY | | | | | | SERVICES, | | | | | | CORE | | + + + + + + | HEMOGLOBIN | 13.6 | 12.0 - 16.0 | [facility] | | | | | g/dL | LABORATORY | | | | | | SERVICES, | | | | | | CORE | | + + + + + + | HEMATOCRIT | 44.3 | 36.0 - 46.0 % | [facility] | | | | | | LABORATORY | | | | | | SERVICES, | | | | | | CORE | | + + + + + + | MCV | 89.0 | 80.0 - 96.0 fL | [facility] | | | | | | LABORATORY | | | | | | SERVICES, | | | | | | CORE | | + + + + + + | MCHC | 30.7 | 33.0 - 35.5 | [facility] | | | | | g/dL | LABORATORY | | | | | | SERVICES, | | | | | | CORE | | + + + + + + | RDW SD | 44.9 | 35.1 - 46.3 fL | [facility] | | | | | | LABORATORY | | | | | | SERVICES, | | | | | | CORE | | + + + + + + | PLATELET | 314 | 150 - 400 K/cu | [facility] | | | COUNT | | mm | LABORATORY | | | | | | SERVICES, | | | | | | CORE | | + + + + + + | MPV | 10.0 | 9.7 - 12.3 fL | [facility] | | | | | | LABORATORY | | | | | | SERVICES, | | | | | | CORE | | + + + + + + | NRBC% | 0.0 | 0.0 - 0.3 % | [facility] | | | | | | LABORATORY | | | | | | SERVICES, | | | | | | CORE | | + + + + + + | NRBC# | 0.00 | 0.00 - 0.02 | [facility] | | | | | K/cu mm | LABORATORY | | | | | | SERVICES, | | | | | | CORE | | + + + + + + | NEUTROPHIL | 65.0 | 50.0 - 70.0 % | [facility] | | | % | | | LABORATORY | | | | | | SERVICES, | | | | | | CORE | | + + + + + + | LYMPHOCYTE | 22.2 | 18.0 - 42.0 % | [facility] | | | % | | | LABORATORY | | | | | | SERVICES, | | | | | | CORE | | + + + + + + | MONOCYTE % | 8.6 | 3.5 - 9.0 % | [facility] | | | | | | LABORATORY | | | | | | SERVICES, | | | | | | CORE | | + + + + + + | EOS % | 3.1 (H) | 1.0 - 3.0 % | [facility] | | | | | | LABORATORY | | | | | | SERVICES, | | | | | | CORE | | + + + + + + | BASO % | 0.8 | 0.0 - 2.0 % | [facility] | | | | | | LABORATORY | | | | | | SERVICES, | | | | | | CORE | | + + + + + + | IG% | 0.3Comment: Increased | 0.0 - 1.0 % | [facility] | | | | immature granulocytes | | LABORATORY | | | | (IG) define a left | | SERVICES, | | | | shift. Immature | | CORE | | | | granulocytes (IG) are an | | | | | | automated count of | | | | | | metamyelocytes, | | | | | | myelocytes and | | | | | | promyelocytes. Bands | | | | | | are not included in the | | | | | | IG count. Bands are | | | | | | included in the | | | | | | neutrophil count. | | | | + + + + + + | NEUTROPHIL | 7.14 | 1.80 - 7.70 | [facility] | | | # | | K/cu mm | LABORATORY | | | | | | SERVICES, | | | | | | CORE | | + + + + + + | LYMPHOCYTE | 2.43 | 1.00 - 4.80 | [facility] | | | # | | K/cu mm | LABORATORY | | | | | | SERVICES, | | | | | | CORE | | + + + + + + | MONOCYTE # | 0.94 (H) | 0.10 - 0.90 | [facility] | | | | | K/cu mm | LABORATORY | | | | | | SERVICES, | | | | | | CORE | | + + + + + + | EOS # | 0.34 | 0.00 - 0.50 | [facility] | | | | | K/cu mm | LABORATORY | | | | | | SERVICES, | | | | | | CORE | | + + + + + + | BASO # | 0.09 | 0.00 - 0.10 | [facility] | | | | | K/cu mm | LABORATORY | | | | | | SERVICES, | | | | | | CORE | | + + + + + + | IG# | 0.03 | 0.00 - 0.10 | [facility] | | | | | K/cu mm | LABORATORY | | | | | | SERVICES, | | | | | | CORE | | + + + + + + + + | Specimen | + + | Blood | + + + + + | Narrative | Performed At | + + + | New reference ranges for IG% and IG# effective 12/02/2017. | [facility] | | Increased immature granulocytes (IG) define a left shift. Immature | LABORATORY | | granulocytes (IG) are an automated count of metamyelocytes, myelocytes | SERVICES, CORE | | and promyelocytes. Bands are not included in the IG count. Bands are | | | included in the neutrophil count. | | + + + + + + + + | Performing | Address | City/State/Zipcode | Phone Number | | Organization | | | | + + + + + | [facility] | [address] [facility] [facility] | [place] [address] | | | SERVICES, CORE | [address] | | | + + + + + CAPILLARY BLOOD GLUCOSE (NO CHG), POC (02/28/2018 6:25 AM PDT) + +---------+ + + + | Component | Value | Ref Range | Performed | Pathologist | | | | | At | Signature | + +---------+ + + + | BLOOD | 159 (H) | 70 - 99 mg/dL | [facility] - | | | GLUCOSE, | | | [place] | | | POC | | | [facility] | | | | | | OF CARE | | | | | | TESTS | | + +---------+ + + + + + | Specimen | + + | | + + + + + + + | Performing | Address | City/State/Zipcode | Phone Number | | Organization | | | | + + + + + | [facility] | [address] | [place], [place] | | | [facility] | [address] | [phone] | | | TESTS | | | | + + + + + CAPILLARY BLOOD GLUCOSE (NO CHG), POC (02/27/2018 9:59 PM PDT) + +---------+ + + + | Component | Value | Ref Range | Performed | Pathologist | | | | | At | Signature | + +---------+ + + + | BLOOD | 166 (H) | 70 - 99 mg/dL | [facility] - | | | GLUCOSE, | | | [place] | | | POC | | | [facility] | | | | | | OF CARE | | | | | | TESTS | | + +---------+ + + + + + | Specimen | + + | | + + + + + + + | Performing | Address | City/State/Zipcode | Phone Number | | Organization | | | | + + + + + | [facility] | [address] | [place], [place] | | | [facility] | [address] | [phone] | | | TESTS | | | | + + + + + CAPILLARY BLOOD GLUCOSE (NO CHG), POC (02/27/2018 1:58 PM PDT) + +---------+ + + + | Component | Value | Ref Range | Performed | Pathologist | | | | | At | Signature | + +---------+ + + + | BLOOD | 204 (H) | 70 - 99 mg/dL | [facility] - | | | GLUCOSE, | | | [place] | | | POC | | | [facility] | | | | | | OF CARE | | | | | | TESTS | | + +---------+ + + + + + | Specimen | + + | | + + + + + + + | Performing | Address | City/State/Zipcode | Phone Number | | Organization | | | | + + + + + | [facility] | [address] | [place], [place] | | | [facility] | [address] | [phone] | | | TESTS | | | | + + + + + X-RAY SPINAL TAP & ASPIRATION W/GUIDANCE (02/27/2018 1:29 PM PDT) + + | Specimen | + + | | + + + + + | Narrative | Performed At | + + + | PROCEDURE: Lumbar puncture with fluoroscopic guidance HISTORY: | [facility] | | Toxic metabolic encephalopathy. COMPARISON: None TECHNIQUE: | RADIOLOGY VOICE | | The patient's healthcare provider service representative (sister) consented after PARQ | RECOGNITION | | discussion. A team pause was performed. Lumbar puncture was performed | | | under fluoroscopic and digital x-ray guidance with standard aseptic | | | technique, using 1% lidocaine for local anesthesia. Lumbar puncture | | | was performed at L4 with a 20 gauge 6 inch spinal needle. Less | | | than 1 mL of serous blood-tinged CSF could be collected; this was sent | | | to the lab. Despite lateral decubatus positioning, and imaging | | | confirming needle within thecal sac in two perpendicular planes, | | | additional CSF could not be obtained. An attemt was made to obtain | | | CSF one level crainal (still within the prepped field; new needle | | | used) however the patient could not hold sufficiently still to | | | continue. This attempt was aborted before reaching the thecal sac. | | | No immediate complications. Physicians present: Parth Disla | | | ; Marlee Mares MD Fluoroscopy time: 23 sec IMPRESSION: | | | Minimal CSF obtained following successful lumbar puncture at L4, | | | despite lateral decbitus and trendelenburg positioning. This could | | | be due to stenosis at this level; consider L3 if a future attempt is | | | made. MR imaging may be useful as well. By my electronic signature | | | listed below, I, the attending radiologist, was present for the | | | entire procedure as described in this note. I have personally | | | reviewed the images and, if necessary, edited the report. I agree | | | with the report as now presented. | | + + + + + | Procedure Note | + + | Service Account, Radiant Res In Interface - 02/28/2018 8:56 PM PDT PROCEDURE: Lumbar | | puncture with fluoroscopic guidanceHISTORY: Toxic metabolic encephalopathy.COMPARISON: | | NoneTECHNIQUE: The patient's healthcare provider service representative (sister) consented after PARQ | | discussion. A team pause was performed. Lumbar puncture was performed under fluoroscopic | | and digital x-ray guidance with standard aseptic technique, using 1% lidocaine for | | local anesthesia. Lumbar puncture was performed at L4 with a 20 gauge 6 inch spinal | | needle. Less than 1 mL of serous blood-tinged CSF could be collected; this was sent to | | the lab. Despite lateral decubatus positioning, and imaging confirming needle within | | thecal sac in two perpendicular planes, additional CSF could not be obtained. An attemt | | was made to obtain CSF one level crainal (still within the prepped field; new needle | | used) however the patient could not hold sufficiently still to continue. This attempt | | was aborted before reaching the thecal sac. No immediate complications. Physicians | | present: Parth Disla MD; Marlee Mares MDFluoroscopy time: 23 secIMPRESSION:Minimal CSF | | obtained following successful lumbar puncture at L4, despite lateral decbitus and | | trendelenburg positioning. This could be due to stenosis at this level; consider L3 if | | a future attempt is made. MR imaging may be useful as well.By my electronic signature | | listed below, I, the attending radiologist, was present for the entire procedure as | | described in this note.I have personally reviewed the images and, if necessary, edited | | the report. I agree with the report as now presented. | | | |By my electronic signature listed below, I, the attending radiologist, was present for the entire procedure as described in this note. | | | | | |I have personally reviewed the images and, if necessary, edited the report. I agree with t he report as now presented. | + + + +---------+ + + | Performing | Address | City/State/Zipcode | Phone Number | | Organization | | | | + +---------+ + + | [facility] | | | | | VOICE RECOGNITION | | | | + +---------+ + + GRAM SMEAR ONLY, STAT (02/27/2018 1:15 PM PDT) + + + + + + | Component | Value | Ref Range | Performed | Pathologist | | | | | At | Signature | + + + + + + | GRAM STAIN | No organisms | No organisms | [facility] | | | RESULT | seenComment: FewWhite | seen | LABORATORY | | | | blood cells present. | | SERVICES, | | | |White blood cells present. | | CORE | | | | | | | | + + + + + + | SMEAR | Dilute cytospin | | [facility] | | | PREPARATION | | | LABORATORY | | | | | | SERVICES, | | | | | | CORE | | + + + + + + | SOURCE BODY | CSF | | [facility] | | | SITE | | | LABORATORY | | | | | | SERVICES, | | | | | | CORE | | + + + + + + + + | Specimen | + + | Fluid | + + + + + + + | Performing | Address | City/State/Zipcode | Phone Number | | Organization | | | | + + + + + | [facility] | [address] | [place] [address] | | | SERVICES, CORE | [address] | | | + + + + + CAPILLARY BLOOD GLUCOSE (NO CHG), POC (02/27/2018 10:37 AM PDT) + +---------+ + + + | Component | Value | Ref Range | Performed | Pathologist | | | | | At | Signature | + +---------+ + + + | BLOOD | 247 (H) | 70 - 99 mg/dL | [facility] - | | | GLUCOSE, | | | [facility] | | | POC | | | [facility] | | | | | | OF CARE | | | | | | TESTS | | + +---------+ + + + + + | Specimen | + + | | + + + + + + + | Performing | Address | City/State/Zipcode | Phone Number | | Organization | | | | + + + + + | [facility] | [address] | [place], [place] | | | [facility] | [address] | [phone] | | | TESTS | | | | + + + + + INR (02/27/2018 8:51 AM PDT) + +-------+ + + + | Component | Value | Ref Range | Performed | Pathologist | | | | | At | Signature | + +-------+ + + + | INR | 1.18 | 0.90 - 1.20 INR | [facility] | | | | | | LABORATORY | | | | | | SERVICES, | | | | | | CORE | | + +-------+ + + + + + | Specimen | + + | Blood | + + + + + | Narrative | Performed At | + + + | INR Therapeutic ranges for full anticoagulation: INR for | [facility] | | Venous Thromboembolism (2.0 - 3.0) INR INR | LABORATORY | | for most patients with mech. valves (2.5 - 3.5) INR | SERVICES, CORE | + + + + + + + + | Performing | Address | City/State/Zipcode | Phone Number | | Organization | | | | + + + + + | [facility] | [address] [facility] | [place] [address] | | | SERVICES, CORE | [address] | | | + + + + + CAPILLARY BLOOD GLUCOSE (NO CHG), POC (02/27/2018 6:24 AM PDT) + +---------+ + + + | Component | Value | Ref Range | Performed | Pathologist | | | | | At | Signature | + +---------+ + + + | BLOOD | 147 (H) | 70 - 99 mg/dL | [facility] - | | | GLUCOSE, | | | [facility] | | | POC | | | [facility] | | | | | | OF CARE | | | | | | TESTS | | + +---------+ + + + + + | Specimen | + + | | + + + + + + + | Performing | Address | City/State/Zipcode | Phone Number | | Organization | | | | + + + + + | [facility] | [address] | [place], [place] | | | [facility] | [facility] | [phone] | | | TESTS | | | | + + + + + CBC AND AUTO DIFF (02/27/2018 5:44 AM PDT) + + + + + + | Component | Value | Ref Range | Performed | Pathologist | | | | | At | Signature | + + + + + + | WHITE CELL | 11.06 (H) | 3.50 - 10.80 | [facility] | | | COUNT | | K/cu mm | LABORATORY | | | | | | SERVICES, | | | | | | CORE | | + + + + + + | RED CELL | 5.04 | 4.00 - 5.20 | [facility] | | | COUNT | | M/cu mm | LABORATORY | | | | | | SERVICES, | | | | | | CORE | | + + + + + + | HEMOGLOBIN | 13.8 | 12.0 - 16.0 | [facility] | | | | | g/dL | LABORATORY | | | | | | SERVICES, | | | | | | CORE | | + + + + + + | HEMATOCRIT | 44.1 | 36.0 - 46.0 % | [facility] | | | | | | LABORATORY | | | | | | SERVICES, | | | | | | CORE | | + + + + + + | MCV | 87.5 | 80.0 - 96.0 fL | [facility] | | | | | | LABORATORY | | | | | | SERVICES, | | | | | | CORE | | + + + + + + | MCHC | 31.3 | 33.0 - 35.5 | [facility] | | | | | g/dL | LABORATORY | | | | | | SERVICES, | | | | | | CORE | | + + + + + + | RDW SD | 44.2 | 35.1 - 46.3 fL | [facility] | | | | | | LABORATORY | | | | | | SERVICES, | | | | | | CORE | | + + + + + + | PLATELET | 325 | 150 - 400 K/cu | [facility] | | | COUNT | | mm | LABORATORY | | | | | | SERVICES, | | | | | | CORE | | + + + + + + | MPV | 9.9 | 9.7 - 12.3 fL | [facility] | | | | | | LABORATORY | | | | | | SERVICES, | | | | | | CORE | | + + + + + + | NRBC% | 0.0 | 0.0 - 0.3 % | [facility] | | | | | | LABORATORY | | | | | | SERVICES, | | | | | | CORE | | + + + + + + | NRBC# | 0.00 | 0.00 - 0.02 | [facility] | | | | | K/cu mm | LABORATORY | | | | | | SERVICES, | | | | | | CORE | | + + + + + + | NEUTROPHIL | 67.0 | 50.0 - 70.0 % | [facility] | | | % | | | LABORATORY | | | | | | SERVICES, | | | | | | CORE | | + + + + + + | LYMPHOCYTE | 22.1 | 18.0 - 42.0 % | [facility] | | | % | | | LABORATORY | | | | | | SERVICES, | | | | | | CORE | | + + + + + + | MONOCYTE % | 7.1 | 3.5 - 9.0 % | [facility] | | | | | | LABORATORY | | | | | | SERVICES, | | | | | | CORE | | + + + + + + | EOS % | 2.8 | 1.0 - 3.0 % | [facility] | | | | | | LABORATORY | | | | | | SERVICES, | | | | | | CORE | | + + + + + + | BASO % | 0.7 | 0.0 - 2.0 % | [facility] | | | | | | LABORATORY | | | | | | SERVICES, | | | | | | CORE | | + + + + + + | IG% | 0.3Comment: Increased | 0.0 - 1.0 % | [facility] | | | | immature granulocytes | | LABORATORY | | | | (IG) define a left | | SERVICES, | | | | shift. Immature | | CORE | | | | granulocytes (IG) are an | | | | | | automated count of | | | | | | metamyelocytes, | | | | | | myelocytes and | | | | | | promyelocytes. Bands | | | | | | are not included in the | | | | | | IG count. Bands are | | | | | | included in the | | | | | | neutrophil count. | | | | + + + + + + | NEUTROPHIL | 7.41 | 1.80 - 7.70 | [facility] | | | # | | K/cu mm | LABORATORY | | | | | | SERVICES, | | | | | | CORE | | + + + + + + | LYMPHOCYTE | 2.44 | 1.00 - 4.80 | [facility] | | | # | | K/cu mm | LABORATORY | | | | | | SERVICES, | | | | | | CORE | | + + + + + + | MONOCYTE # | 0.79 | 0.10 - 0.90 | [facility] | | | | | K/cu mm | LABORATORY | | | | | | SERVICES, | | | | | | CORE | | + + + + + + | EOS # | 0.31 | 0.00 - 0.50 | [facility] | | | | | K/cu mm | LABORATORY | | | | | | SERVICES, | | | | | | CORE | | + + + + + + | BASO # | 0.08 | 0.00 - 0.10 | [facility] | | | | | K/cu mm | LABORATORY | | | | | | SERVICES, | | | | | | CORE | | + + + + + + | IG# | 0.03 | 0.00 - 0.10 | [facility] | | | | | K/cu mm | LABORATORY | | | | | | SERVICES, | | | | | | CORE | | + + + + + + + + | Specimen | + + | Blood | + + + + + | Narrative | Performed At | + + + | New reference ranges for IG% and IG# effective 12/02/2017. | [facility] | | Increased immature granulocytes (IG) define a left shift. Immature | LABORATORY | | granulocytes (IG) are an automated count of metamyelocytes, myelocytes | SERVICES, CORE | | and promyelocytes. Bands are not included in the IG count. Bands are | | | included in the neutrophil count. | | + + + + + + + + | Performing | Address | City/State/Zipcode | Phone Number | | Organization | | | | + + + + + | [facility] | [address] | [place] [address] | | | SERVICES, CORE | [address] | | | + + + + + RENAL FUNCTION SET (NA,K,CL,CO2,BUN,CREAT,GLUC,CA,PHOS,ALB ) (02/27/2018 5:44 AM PDT) + + + + + + | Component | Value | Ref Range | Performed | Pathologist | | | | | At | Signature | + + + + + + | GLUCOSE, | 222 (H) | 70 - 99 mg/dL | [facility] | | | PLASMA | | | LABORATORY | | | (LAB) | | | SERVICES, | | | | | | CORE | | + + + + + + | BUN, PLASMA | 33 (H) | 6 - 20 mg/dL | [facility] | | | (LAB) | | | LABORATORY | | | | | | SERVICES, | | | | | | CORE | | + + + + + + | CREATININE | 0.81 | 0.60 - 1.10 | [facility] | | | PLASMA | | mg/dL | LABORATORY | | | (LAB) | | | SERVICES, | | | | | | CORE | | + + + + + + | EGFR | >60 | >60 mL/min | [facility] | | | - | | | LABORATORY | | | [place] [facility] | | | SERVICES, | | | | | | CORE | | + + + + + + | EGFR NON | >60 | >60 mL/min | [facility] | | | -[facility] | | | LABORATORY | | | [facility] | | | SERVICES, | | | | | | CORE | | + + + + + + | SODIUM, | 142 | 136 - 145 | [facility] | | | PLASMA | | mmol/L | LABORATORY | | | (LAB) | | | SERVICES, | | | | | | CORE | | + + + + + + | POTASSIUM, | 4.1 | 3.4 - 5.0 | [facility] | | | PLASMA | | mmol/L | LABORATORY | | | (LAB) | | | SERVICES, | | | | | | CORE | | + + + + + + | CHLORIDE, | 107 | 97 - 108 mmol/L | [facility] | | | PLASMA | | | LABORATORY | | | (LAB) | | | SERVICES, | | | | | | CORE | | + + + + + + | TOTAL CO2, | 31 | 21 - 32 mmol/L | [facility] | | | PLASMA | | | LABORATORY | | | (LAB) | | | SERVICES, | | | | | | CORE | | + + + + + + | CALCIUM, | 9.2 | 8.6 - 10.2 | [facility] | | | PLASMA | | mg/dL | LABORATORY | | | (LAB) | | | SERVICES, | | | | | | CORE | | + + + + + + | CALCIUM(ALB | 10.3 (H) | 8.6 - 10.2 | [facility] | | | CORRECTED) | | mg/dL | LABORATORY | | | | | | SERVICES, | | | | | | CORE | | + + + + + + | ALBUMIN, | 2.6 (L) | 3.5 - 4.7 g/dL | [facility] | | | PLASMA | | | LABORATORY | | | (LAB) | | | SERVICES, | | | | | | CORE | | + + + + + + | PHOSPHORUS, | 3.2 | 2.4 - 4.7 mg/dL | [facility] | | | PLASMA | | | LABORATORY | | | (LAB) | | | SERVICES, | | | | | | CORE | | + + + + + + | POTASSIUM | No Hemo | | [facility] | | | CMNT | | | LABORATORY | | | | | | SERVICES, | | | | | | CORE | | + + + + + + | ANION GAP | 4 | 4 - 11 mmol/L | [facility] | | | | | | LABORATORY | | | | | | SERVICES, | | | | | | CORE | | + + + + + + | ANION | 7 | 4 - 11 mmol/L | [facility] | | | GAP(ALB | | | LABORATORY | | | CORRECTED) | | | SERVICES, | | | | | | CORE | | + + + + + + + + | Specimen | + + | Blood | + + + + + | Narrative | Performed At | + + + | Adult glucose reference range change effective 7-12-17. GFR is | [facility] | | estimated using the MDRD equation recommended by the National Kidney | LABORATORY | | Disease Education Program. Estimated GFR Interpretive Information: | SERVICES, CORE | | <60 mL/min/1.73 sq m Chronic Kidney | | | Disease <15 mL/min/1.73 sq m Kidney | | | Failure Estimated GFR greater that 60 mL/min/1.73 sq m is of limited | | | clinical value. The MDRD equation is not valid in the following | | | situations: - Patients under 18 years of age - Severe malnutrition | | | or obesity - Vegetarian diet - Rapidly changing kidney function | | + + + + + + + + | Performing | Address | City/State/Zipcode | Phone Number | | Organization | | | | + + + + + | [facility] | [address] | [place] [address] | | | SERVICES, [place] | [address] | | | + + + + + CAPILLARY BLOOD GLUCOSE (NO CHG), POC (02/26/2018 10:08 PM PDT) + +---------+ + + + | Component | Value | Ref Range | Performed | Pathologist | | | | | At | Signature | + +---------+ + + + | BLOOD | 199 (H) | 70 - 99 mg/dL | [facility] - | | | GLUCOSE, | | | [facility] | | | POC | | | [facility] | | | | | | OF CARE | | | | | | TESTS | | + +---------+ + + + + + | Specimen | + + | | + + + + + + + | Performing | Address | City/State/Zipcode | Phone Number | | Organization | | | | + + + + + | [facility] | [address] | [place], [place] | | | [facility] | [address] | [phone] | | | TESTS | | | | + + + + + CAPILLARY BLOOD GLUCOSE (NO CHG), POC (02/26/2018 5:27 PM PDT) + +---------+ + + + | Component | Value | Ref Range | Performed | Pathologist | | | | | At | Signature | + +---------+ + + + | BLOOD | 211 (H) | 70 - 99 mg/dL | [facility] - | | | GLUCOSE, | | | [facility] | | | POC | | | [facility] | | | | | | OF CARE | | | | | | TESTS | | + +---------+ + + + + + | Specimen | + + | | + + + + + + + | Performing | Address | City/State/Zipcode | Phone Number | | Organization | | | | + + + + + | [facility] | [address] | [place], [place] | | | [facility] | [address] | [address] | | | TESTS | | | | + + + + + CAPILLARY BLOOD GLUCOSE (NO CHG), POC (02/26/2018 12:34 PM PDT) + +---------+ + + + | Component | Value | Ref Range | Performed | Pathologist | | | | | At | Signature | + +---------+ + + + | BLOOD | 254 (H) | 70 - 99 mg/dL | [facility] - | | | GLUCOSE, | | | [facility] | | | POC | | | [facility] | | | | | | OF CARE | | | | | | TESTS | | + +---------+ + + + + + | Specimen | + + | | + + + + + + + | Performing | Address | City/State/Zipcode | Phone Number | | Organization | | | | + + + + + | [facility] | [address] | [place], [place] | | | [facility] | [address] | [phone] | | | TESTS | | | | + + + + + CBC AND AUTO DIFF (02/26/2018 8:18 AM PDT) + + + + + + | Component | Value | Ref Range | Performed | Pathologist | | | | | At | Signature | + + + + + + | WHITE CELL | 11.41 (H) | 3.50 - 10.80 | [facility] | | | COUNT | | K/cu mm | LABORATORY | | | | | | SERVICES, | | | | | | CORE | | + + + + + + | RED CELL | 4.73 | 4.00 - 5.20 | [facility] | | | COUNT | | M/cu mm | LABORATORY | | | | | | SERVICES, | | | | | | CORE | | + + + + + + | HEMOGLOBIN | 13.1 | 12.0 - 16.0 | [facility] | | | | | g/dL | LABORATORY | | | | | | SERVICES, | | | | | | CORE | | + + + + + + | HEMATOCRIT | 41.0 | 36.0 - 46.0 % | [facility] | | | | | | LABORATORY | | | | | | SERVICES, | | | | | | CORE | | + + + + + + | MCV | 86.7 | 80.0 - 96.0 fL | [facility] | | | | | | LABORATORY | | | | | | SERVICES, | | | | | | CORE | | + + + + + + | MCHC | 32.0 | 33.0 - 35.5 | [facility] | | | | | g/dL | LABORATORY | | | | | | SERVICES, | | | | | | CORE | | + + + + + + | RDW SD | 43.8 | 35.1 - 46.3 fL | [facility] | | | | | | LABORATORY | | | | | | SERVICES, | | | | | | CORE | | + + + + + + | PLATELET | 339 | 150 - 400 K/cu | [facility] | | | COUNT | | mm | LABORATORY | | | | | | SERVICES, | | | | | | CORE | | + + + + + + | MPV | 9.8 | 9.7 - 12.3 fL | [facility] | | | | | | LABORATORY | | | | | | SERVICES, | | | | | | CORE | | + + + + + + | NRBC% | 0.0 | 0.0 - 0.3 % | [facility] | | | | | | LABORATORY | | | | | | SERVICES, | | | | | | CORE | | + + + + + + | NRBC# | 0.00 | 0.00 - 0.02 | [facility] | | | | | K/cu mm | LABORATORY | | | | | | SERVICES, | | | | | | CORE | | + + + + + + | NEUTROPHIL | 71.4 (H) | 50.0 - 70.0 % | [facility] | | | % | | | LABORATORY | | | | | | SERVICES, | | | | | | CORE | | + + + + + + | LYMPHOCYTE | 18.5 | 18.0 - 42.0 % | [facility] | | | % | | | LABORATORY | | | | | | SERVICES, | | | | | | CORE | | + + + + + + | MONOCYTE % | 6.5 | 3.5 - 9.0 % | [facility] | | | | | | LABORATORY | | | | | | SERVICES, | | | | | | CORE | | + + + + + + | EOS % | 2.5 | 1.0 - 3.0 % | [facility] | | | | | | LABORATORY | | | | | | SERVICES, | | | | | | CORE | | + + + + + + | BASO % | 0.8 | 0.0 - 2.0 % | [facility] | | | | | | LABORATORY | | | | | | SERVICES, | | | | | | CORE | | + + + + + + | IG% | 0.3Comment: Increased | 0.0 - 1.0 % | [facility] | | | | immature granulocytes | | LABORATORY | | | | (IG) define a left | | SERVICES, | | | | shift. Immature | | CORE | | | | granulocytes (IG) are an | | | | | | automated count of | | | | | | metamyelocytes, | | | | | | myelocytes and | | | | | | promyelocytes. Bands | | | | | | are not included in the | | | | | | IG count. Bands are | | | | | | included in the | | | | | | neutrophil count. | | | | + + + + + + | NEUTROPHIL | 8.15 (H) | 1.80 - 7.70 | [facility] | | | # | | K/cu mm | LABORATORY | | | | | | SERVICES, | | | | | | CORE | | + + + + + + | LYMPHOCYTE | 2.11 | 1.00 - 4.80 | [facility] | | | # | | K/cu mm | LABORATORY | | | | | | SERVICES, | | | | | | CORE | | + + + + + + | MONOCYTE # | 0.74 | 0.10 - 0.90 | [facility] | | | | | K/cu mm | LABORATORY | | | | | | SERVICES, | | | | | | CORE | | + + + + + + | EOS # | 0.29 | 0.00 - 0.50 | [facility] | | | | | K/cu mm | LABORATORY | | | | | | SERVICES, | | | | | | CORE | | + + + + + + | BASO # | 0.09 | 0.00 - 0.10 | [facility] | | | | | K/cu mm | LABORATORY | | | | | | SERVICES, | | | | | | CORE | | + + + + + + | IG# | 0.03 | 0.00 - 0.10 | [facility] | | | | | K/cu mm | LABORATORY | | | | | | SERVICES, | | | | | | CORE | | + + + + + + + + | Specimen | + + | Blood | + + + + + | Narrative | Performed At | + + + | New reference ranges for IG% and IG# effective 12/02/2017. | [facility] | | Increased immature granulocytes (IG) define a left shift. Immature | LABORATORY | | granulocytes (IG) are an automated count of metamyelocytes, myelocytes | SERVICES, CORE | | and promyelocytes. Bands are not included in the IG count. Bands are | | | included in the neutrophil count. | | + + + + + + + + | Performing | Address | City/State/Zipcode | Phone Number | | Organization | | | | + + + + + | [facility] | [address] | [place] [address] | | | [place], C[place] | [address] | | | + + + + + RENAL FUNCTION SET (NA,K,CL,CO2,BUN,CREAT,GLUC,CA,PHOS,ALB ) (02/26/2018 8:18 AM PDT) + + + + + + | Component | Value | Ref Range | Performed | Pathologist | | | | | At | Signature | + + + + + + | GLUCOSE, | 242 (H) | 70 - 99 mg/dL | [facility] | | | PLASMA | | | LABORATORY | | | (LAB) | | | SERVICES, | | | | | | CORE | | + + + + + + | BUN, PLASMA | 33 (H) | 6 - 20 mg/dL | [facility] | | | (LAB) | | | LABORATORY | | | | | | SERVICES, | | | | | | CORE | | + + + + + + | CREATININE | 0.76 | 0.60 - 1.10 | [facility] | | | PLASMA | | mg/dL | LABORATORY | | | (LAB) | | | SERVICES, | | | | | | CORE | | + + + + + + | EGFR | >60 | >60 mL/min | [facility] | | | - | | | LABORATORY | | | [place] [facility] | | | SERVICES, | | | | | | CORE | | + + + + + + | EGFR NON | >60 | >60 mL/min | [facility] | | | -[facility] | | | LABORATORY | | | [facility] | | | SERVICES, | | | | | | CORE | | + + + + + + | SODIUM, | 144 | 136 - 145 | [facility] | | | PLASMA | | mmol/L | LABORATORY | | | (LAB) | | | SERVICES, | | | | | | CORE | | + + + + + + | POTASSIUM, | 3.9 | 3.4 - 5.0 | [facility] | | | PLASMA | | mmol/L | LABORATORY | | | (LAB) | | | SERVICES, | | | | | | CORE | | + + + + + + | CHLORIDE, | 108 | 97 - 108 mmol/L | [facility] | | | PLASMA | | | LABORATORY | | | (LAB) | | | SERVICES, | | | | | | CORE | | + + + + + + | TOTAL CO2, | 29 | 21 - 32 mmol/L | [facility] | | | PLASMA | | | LABORATORY | | | (LAB) | | | SERVICES, | | | | | | CORE | | + + + + + + | CALCIUM, | 9.6 | 8.6 - 10.2 | [facility] | | | PLASMA | | mg/dL | LABORATORY | | | (LAB) | | | SERVICES, | | | | | | CORE | | + + + + + + | CALCIUM(ALB | 10.7 (H) | 8.6 - 10.2 | [facility] | | | CORRECTED) | | mg/dL | LABORATORY | | | | | | SERVICES, | | | | | | CORE | | + + + + + + | ALBUMIN, | 2.6 (L) | 3.5 - 4.7 g/dL | [facility] | | | PLASMA | | | LABORATORY | | | (LAB) | | | SERVICES, | | | | | | CORE | | + + + + + + | PHOSPHORUS, | 2.3 (L) | 2.4 - 4.7 mg/dL | [facility] | | | PLASMA | | | LABORATORY | | | (LAB) | | | SERVICES, | | | | | | CORE | | + + + + + + | POTASSIUM | No Hemo | | [facility] | | | CMNT | | | LABORATORY | | | | | | SERVICES, | | | | | | CORE | | + + + + + + | ANION GAP | 7 | 4 - 11 mmol/L | [facility] | | | | | | LABORATORY | | | | | | SERVICES, | | | | | | CORE | | + + + + + + | ANION | 10 | 4 - 11 mmol/L | [facility] | | | GAP(ALB | | | LABORATORY | | | CORRECTED) | | | SERVICES, | | | | | | CORE | | + + + + + + + + | Specimen | + + | Blood | + + + + + | Narrative | Performed At | + + + | Adult glucose reference range change effective 7-12-17. GFR is | [facility] | | estimated using the MDRD equation recommended by the National Kidney | LABORATORY | | Disease Education Program. Estimated GFR Interpretive Information: | SERVICES, CORE | | <60 mL/min/1.73 sq m Chronic Kidney | | | Disease <15 mL/min/1.73 sq m Kidney | | | Failure Estimated GFR greater that 60 mL/min/1.73 sq m is of limited | | | clinical value. The MDRD equation is not valid in the following | | | situations: - Patients under 18 years of age - Severe malnutrition | | | or obesity - Vegetarian diet - Rapidly changing kidney function | | + + + + + + + + | Performing | Address | City/State/Zipcode | Phone Number | | Organization | | | | + + + + + | [facility] | [address] | [place] [address] | | | SERVICES, CORE | [address] | | | + + + + + CAPILLARY BLOOD GLUCOSE (NO CHG), POC (02/26/2018 6:42 AM PDT) + +---------+ + + + | Component | Value | Ref Range | Performed | Pathologist | | | | | At | Signature | + +---------+ + + + | BLOOD | 194 (H) | 70 - 99 mg/dL | [facility] | | | GLUCOSE, | | | [facility] | | | POC | | | [facility] | | | | | | [facility] | | | | | | TESTS | | + +---------+ + + + + + | Specimen | + + | | + + + + + + + | Performing | Address | City/State/Zipcode | Phone Number | | Organization | | | | + + + + + | [facility] | [address] | [place], [place] | | | [facility] | [address] | [phone] | | | TESTS | | | | + + + + + CAPILLARY BLOOD GLUCOSE (NO CHG), POC (02/26/2018 12:48 AM PDT) + +---------+ + + + | Component | Value | Ref Range | Performed | Pathologist | | | | | At | Signature | + +---------+ + + + | BLOOD | 210 (H) | 70 - 99 mg/dL | [facility] - | | | GLUCOSE, | | | [facility] | | | POC | | | [facility] | | | | | | OF CARE | | | | | | TESTS | | + +---------+ + + + + + | Specimen | + + | | + + + + + + + | Performing | Address | City/State/Zipcode | Phone Number | | Organization | | | | + + + + + | [facility] | [address] | [place], [place] | | | [facility] | [address] | [phone] | | | TESTS | | | | + + + + + CAPILLARY BLOOD GLUCOSE (NO CHG), POC (02/25/2018 6:05 PM PDT) + +---------+ + + + | Component | Value | Ref Range | Performed | Pathologist | | | | | At | Signature | + +---------+ + + + | BLOOD | 213 (H) | 70 - 99 mg/dL | [facility] | | | GLUCOSE, | | | [facility] | | | POC | | | [facility] | | | | | | [facility]ARE | | | | | | TESTS | | + +---------+ + + + + + | Specimen | + + | | + + + + + + + | Performing | Address | City/State/Zipcode | Phone Number | | Organization | | | | + + + + + | [facility] | [address] | [place], [place] | | | [facility] | [address] | [phone] | | | TESTS | | | | + + + + + CAPILLARY BLOOD GLUCOSE (NO CHG), POC (02/25/2018 2:13 PM PDT) + +---------+ + + + | Component | Value | Ref Range | Performed | Pathologist | | | | | At | Signature | + +---------+ + + + | BLOOD | 214 (H) | 70 - 99 mg/dL | [facility] | | | GLUCOSE, | | | [facility] | | | POC | | | [facility] | | | | | | [facility]ARE | | | | | | TESTS | | + +---------+ + + + + + | Specimen | + + | | + + + + + + + | Performing | Address | City/State/Zipcode | Phone Number | | Organization | | | | + + + + + | [facility] | [address] | [place], [place] | | | [facility] | [address] | [phone] | | | TESTS | | | | + + + + + CAPILLARY BLOOD GLUCOSE (NO CHG), POC (02/25/2018 12:24 PM PDT) + +---------+ + + + | Component | Value | Ref Range | Performed | Pathologist | | | | | At | Signature | + +---------+ + + + | BLOOD | 258 (H) | 70 - 99 mg/dL | [facility] | | | GLUCOSE, | | | [facility] | | | POC | | | [facility] | | | | | | OF CARE | | | | | | TESTS | | + +---------+ + + + + + | Specimen | + + | | + + + + + + + | Performing | Address | City/State/Zipcode | Phone Number | | Organization | | | | + + + + + | [facility] | [address] | [place], [place] | | | [facility] | [address] | [address] | | | TESTS | | | | + + + + + CBC AND AUTO DIFF (02/25/2018 6:21 AM PDT) + + + + + + | Component | Value | Ref Range | Performed | Pathologist | | | | | At | Signature | + + + + + + | WHITE CELL | 12.05 (H) | 3.50 - 10.80 | [facility] | | | COUNT | | K/cu mm | LABORATORY | | | | | | SERVICES, | | | | | | CORE | | + + + + + + | RED CELL | 4.51 | 4.00 - 5.20 | [facility] | | | COUNT | | M/cu mm | LABORATORY | | | | | | SERVICES, | | | | | | CORE | | + + + + + + | HEMOGLOBIN | 12.7 | 12.0 - 16.0 | [facility] | | | | | g/dL | LABORATORY | | | | | | SERVICES, | | | | | | CORE | | + + + + + + | HEMATOCRIT | 39.3 | 36.0 - 46.0 % | [facility] | | | | | | LABORATORY | | | | | | SERVICES, | | | | | | CORE | | + + + + + + | MCV | 87.1 | 80.0 - 96.0 fL | [facility] | | | | | | LABORATORY | | | | | | SERVICES, | | | | | | CORE | | + + + + + + | MCHC | 32.3 | 33.0 - 35.5 | [facility] | | | | | g/dL | LABORATORY | | | | | | SERVICES, | | | | | | CORE | | + + + + + + | RDW SD | 44.6 | 35.1 - 46.3 fL | [facility] | | | | | | LABORATORY | | | | | | SERVICES, | | | | | | CORE | | + + + + + + | PLATELET | 320 | 150 - 400 K/cu | [facility] | | | COUNT | | mm | LABORATORY | | | | | | SERVICES, | | | | | | CORE | | + + + + + + | MPV | 9.7 | 9.7 - 12.3 fL | [facility] | | | | | | LABORATORY | | | | | | SERVICES, | | | | | | CORE | | + + + + + + | NRBC% | 0.0 | 0.0 - 0.3 % | [facility] | | | | | | LABORATORY | | | | | | SERVICES, | | | | | | CORE | | + + + + + + | NRBC# | 0.00 | 0.00 - 0.02 | [facility] | | | | | K/cu mm | LABORATORY | | | | | | SERVICES, | | | | | | CORE | | + + + + + + | NEUTROPHIL | 70.3 (H) | 50.0 - 70.0 % | [facility] | | | % | | | LABORATORY | | | | | | SERVICES, | | | | | | CORE | | + + + + + + | LYMPHOCYTE | 17.8 (L) | 18.0 - 42.0 % | [facility] | | | % | | | LABORATORY | | | | | | SERVICES, | | | | | | CORE | | + + + + + + | MONOCYTE % | 7.7 | 3.5 - 9.0 % | [facility] | | | | | | LABORATORY | | | | | | SERVICES, | | | | | | CORE | | + + + + + + | EOS % | 2.5 | 1.0 - 3.0 % | [facility] | | | | | | LABORATORY | | | | | | SERVICES, | | | | | | CORE | | + + + + + + | BASO % | 0.6 | 0.0 - 2.0 % | [facility] | | | | | | LABORATORY | | | | | | SERVICES, | | | | | | CORE | | + + + + + + | IG% | 1.1 (H)Comment: | 0.0 - 1.0 % | [facility] | | | | Increased immature | | LABORATORY | | | | granulocytes (IG) define | | SERVICES, | | | | a left shift. Immature | | CORE | | | | granulocytes (IG) are | | | | | | an automated count of | | | | | | metamyelocytes, | | | | | | myelocytes and | | | | | | promyelocytes. Bands | | | | | | are not included in the | | | | | | IG count. Bands are | | | | | | included in the | | | | | | neutrophil count. | | | | + + + + + + | NEUTROPHIL | 8.47 (H) | 1.80 - 7.70 | [facility] | | | # | | K/cu mm | LABORATORY | | | | | | SERVICES, | | | | | | CORE | | + + + + + + | LYMPHOCYTE | 2.15 | 1.00 - 4.80 | [facility] | | | # | | K/cu mm | LABORATORY | | | | | | SERVICES, | | | | | | CORE | | + + + + + + | MONOCYTE # | 0.93 (H) | 0.10 - 0.90 | [facility] | | | | | K/cu mm | LABORATORY | | | | | | SERVICES, | | | | | | CORE | | + + + + + + | EOS # | 0.30 | 0.00 - 0.50 | [facility] | | | | | K/cu mm | LABORATORY | | | | | | SERVICES, | | | | | | CORE | | + + + + + + | BASO # | 0.07 | 0.00 - 0.10 | [facility] | | | | | K/cu mm | LABORATORY | | | | | | SERVICES, | | | | | | CORE | | + + + + + + | IG# | 0.13 (H) | 0.00 - 0.10 | [facility] | | | | | K/cu mm | LABORATORY | | | | | | SERVICES, | | | | | | CORE | | + + + + + + + + | Specimen | + + | Blood | + + + + + | Narrative | Performed At | + + + | New reference ranges for IG% and IG# effective 12/02/2017. | [facility] | | Increased immature granulocytes (IG) define a left shift. Immature | LABORATORY | | granulocytes (IG) are an automated count of metamyelocytes, myelocytes | SERVICES, CORE | | and promyelocytes. Bands are not included in the IG count. Bands are | | | included in the neutrophil count. | | + + + + + + + + | Performing | Address | City/State/Zipcode | Phone Number | | Organization | | | | + + + + + | [facility] | [address] | [place] [address] | | | SERVICES, CORE | [address] | | | + + + + + RENAL FUNCTION SET (NA,K,CL,CO2,BUN,CREAT,GLUC,CA,PHOS,ALB ) (02/25/2018 6:21 AM PDT) + + + + + + | Component | Value | Ref Range | Performed | Pathologist | | | | | At | Signature | + + + + + + | GLUCOSE, | 270 (H) | 70 - 99 mg/dL | [facility] | | | PLASMA | | | LABORATORY | | | (LAB) | | | SERVICES, | | | | | | CORE | | + + + + + + | BUN, PLASMA | 33 (H) | 6 - 20 mg/dL | [facility] | | | (LAB) | | | LABORATORY | | | | | | SERVICES, | | | | | | CORE | | + + + + + + | CREATININE | 0.74 | 0.60 - 1.10 | [facility] | | | PLASMA | | mg/dL | LABORATORY | | | (LAB) | | | SERVICES, | | | | | | CORE | | + + + + + + | EGFR | >60 | >60 mL/min | [facility] | | | - | | | LABORATORY | | | [facility] | | | SERVICES, | | | | | | CORE | | + + + + + + | EGFR NON | >60 | >60 mL/min | [facility] | | | -[facility]SE[facility] | | | LABORATORY | | | [facility] | | | SERVICES, | | | | | | CORE | | + + + + + + | SODIUM, | 145 | 136 - 145 | [facility] | | | PLASMA | | mmol/L | LABORATORY | | | (LAB) | | | SERVICES, | | | | | | CORE | | + + + + + + | POTASSIUM, | 4.3 | 3.4 - 5.0 | [facility] | | | PLASMA | | mmol/L | LABORATORY | | | (LAB) | | | SERVICES, | | | | | | CORE | | + + + + + + | CHLORIDE, | 111 (H) | 97 - 108 mmol/L | [facility] | | | PLASMA | | | LABORATORY | | | (LAB) | | | SERVICES, | | | | | | CORE | | + + + + + + | TOTAL CO2, | 29 | 21 - 32 mmol/L | [facility] | | | PLASMA | | | LABORATORY | | | (LAB) | | | SERVICES, | | | | | | CORE | | + + + + + + | CALCIUM, | 9.1 | 8.6 - 10.2 | [facility] | | | PLASMA | | mg/dL | LABORATORY | | | (LAB) | | | SERVICES, | | | | | | CORE | | + + + + + + | CALCIUM(ALB | 10.3 (H) | 8.6 - 10.2 | [facility] | | | CORRECTED) | | mg/dL | LABORATORY | | | | | | SERVICES, | | | | | | CORE | | + + + + + + | ALBUMIN, | 2.5 (L) | 3.5 - 4.7 g/dL | [facility] | | | PLASMA | | | LABORATORY | | | (LAB) | | | SERVICES, | | | | | | CORE | | + + + + + + | PHOSPHORUS, | 2.4 | 2.4 - 4.7 mg/dL | [facility] | | | PLASMA | | | LABORATORY | | | (LAB) | | | SERVICES, | | | | | | CORE | | + + + + + + | POTASSIUM | Sl Hemo | | [facility] | | | CMNT | | | LABORATORY | | | | | | SERVICES, | | | | | | CORE | | + + + + + + | ANION GAP | 5 | 4 - 11 mmol/L | [facility] | | | | | | LABORATORY | | | | | | SERVICES, | | | | | | CORE | | + + + + + + | ANION | 8 | 4 - 11 mmol/L | [facility] | | | GAP(ALB | | | LABORATORY | | | CORRECTED) | | | SERVICES, | | | | | | CORE | | + + + + + + + + | Specimen | + + | Blood | + + + + + | Narrative | Performed At | + + + | Adult glucose reference range change effective 7-12-17. Sample | [facility] | | hemolyzed. Results for K, Total Bili, Direct Bili, AST, LDH, or HDL | LABORATORY | | may be inaccurate. Refer to comment under test result. GFR is | SERVICES, CORE | | estimated using the MDRD equation recommended by the National Kidney | | | Disease Education Program. Estimated GFR Interpretive Information: | | | <60 mL/min/1.73 sq m Chronic Kidney | | | Disease <15 mL/min/1.73 sq m Kidney | | | Failure Estimated GFR greater that 60 mL/min/1.73 sq m is of limited | | | clinical value. The MDRD equation is not valid in the following | | | situations: - Patients under 18 years of age - Severe malnutrition | | | or obesity - Vegetarian diet - Rapidly changing kidney function | | + + + + + + + + | Performing | Address | City/State/Zipcode | Phone Number | | Organization | | | | + + + + + | [facility] | [address] | [place] [address] | | | SERVICES, CORE | [address] | | | + + + + + CAPILLARY BLOOD GLUCOSE (NO CHG), POC (02/25/2018 6:15 AM PDT) + +---------+ + + + | Component | Value | Ref Range | Performed | Pathologist | | | | | At | Signature | + +---------+ + + + | BLOOD | 217 (H) | 70 - 99 mg/dL | [facility] | | | GLUCOSE, | | | [facility] | | | POC | | | [facility] | | | | | | OF CARE | | | | | | TESTS | | + +---------+ + + + + + | Specimen | + + | | + + + + + + + | Performing | Address | City/State/Zipcode | Phone Number | | Organization | | | | + + + + + | [facility] | [address] | [place], [place] | | | [facility] | [address] | [phone] | | | TESTS | | | | + + + + + CAPILLARY BLOOD GLUCOSE (NO CHG), POC (02/24/2018 11:07 PM PDT) + +---------+ + + + | Component | Value | Ref Range | Performed | Pathologist | | | | | At | Signature | + +---------+ + + + | BLOOD | 159 (H) | 70 - 99 mg/dL | [facility] | | | GLUCOSE, | | | [facility] | | | POC | | | [facility] | | | | | | OF CARE | | | | | | TESTS | | + +---------+ + + + + + | Specimen | + + | | + + + + + + + | Performing | Address | City/State/Zipcode | Phone Number | | Organization | | | | + + + + + | [facility] | [address] | [place], [place] | | | [facility] | [address] | [phone] | | | TESTS | | | | + + + + + CAPILLARY BLOOD GLUCOSE (NO CHG), POC (02/24/2018 6:13 PM PDT) + +---------+ + + + | Component | Value | Ref Range | Performed | Pathologist | | | | | At | Signature | + +---------+ + + + | BLOOD | 203 (H) | 70 - 99 mg/dL | [facility] | | | GLUCOSE, | | | [facility] | | | POC | | | [facility] | | | | | | OF CARE | | | | | | TESTS | | + +---------+ + + + + + | Specimen | + + | | + + + + + + + | Performing | Address | City/State/Zipcode | Phone Number | | Organization | | | | + + + + + | [facility] | [address] | [place], [place] | | | [facility] | [facility] | [phone] | | | TESTS | | | | + + + + + CAPILLARY BLOOD GLUCOSE (NO CHG), POC (02/24/2018 2:26 PM PDT) + +---------+ + + + | Component | Value | Ref Range | Performed | Pathologist | | | | | At | Signature | + +---------+ + + + | BLOOD | 254 (H) | 70 - 99 mg/dL | [facility] | | | GLUCOSE, | | | [facility] | | | POC | | | [facility] | | | | | | OF CARE | | | | | | TESTS | | + +---------+ + + + + + | Specimen | + + | | + + + + + + + | Performing | Address | City/State/Zipcode | Phone Number | | Organization | | | | + + + + + | [facility] | [address] | [place], [place] | | | [facility] | [address] | [phone] | | | TESTS | | | | + + + + + CAPILLARY BLOOD GLUCOSE (NO CHG), POC (02/24/2018 11:41 AM PDT) + +---------+ + + + | Component | Value | Ref Range | Performed | Pathologist | | | | | At | Signature | + +---------+ + + + | BLOOD | 259 (H) | 70 - 99 mg/dL | [facility] | | | GLUCOSE, | | | [facility] | | | POC | | | [facility] | | | | | | OF CARE | | | | | | TESTS | | + +---------+ + + + + + | Specimen | + + | | + + + + + + + | Performing | Address | City/State/Zipcode | Phone Number | | Organization | | | | + + + + + | [facility] | [address] | [place], [place] | | | [facility] | [address] | [phone] | | | TESTS | | | | + + + + + CBC AND AUTO DIFF (02/24/2018 8:42 AM PDT) + + + + + + | Component | Value | Ref Range | Performed | Pathologist | | | | | At | Signature | + + + + + + | WHITE CELL | 13.98 (H) | 3.50 - 10.80 | [facility] | | | COUNT | | K/cu mm | LABORATORY | | | | | | SERVICES, | | | | | | CORE | | + + + + + + | RED CELL | 4.86 | 4.00 - 5.20 | [facility] | | | COUNT | | M/cu mm | LABORATORY | | | | | | SERVICES, | | | | | | CORE | | + + + + + + | HEMOGLOBIN | 13.3 | 12.0 - 16.0 | [facility] | | | | | g/dL | LABORATORY | | | | | | SERVICES, | | | | | | CORE | | + + + + + + | HEMATOCRIT | 43.7 | 36.0 - 46.0 % | [facility] | | | | | | LABORATORY | | | | | | SERVICES, | | | | | | CORE | | + + + + + + | MCV | 89.9 | 80.0 - 96.0 fL | [facility] | | | | | | LABORATORY | | | | | | SERVICES, | | | | | | CORE | | + + + + + + | MCHC | 30.4 | 33.0 - 35.5 | [facility] | | | | | g/dL | LABORATORY | | | | | | SERVICES, | | | | | | CORE | | + + + + + + | RDW SD | 46.1 | 35.1 - 46.3 fL | [facility] | | | | | | LABORATORY | | | | | | SERVICES, | | | | | | CORE | | + + + + + + | PLATELET | 409 (H) | 150 - 400 K/cu | [facility] | | | COUNT | | mm | LABORATORY | | | | | | SERVICES, | | | | | | CORE | | + + + + + + | MPV | 10.0 | 9.7 - 12.3 fL | [facility] | | | | | | LABORATORY | | | | | | SERVICES, | | | | | | CORE | | + + + + + + | NRBC% | 0.0 | 0.0 - 0.3 % | [facility] | | | | | | LABORATORY | | | | | | SERVICES, | | | | | | CORE | | + + + + + + | NRBC# | 0.00 | 0.00 - 0.02 | [facility] | | | | | K/cu mm | LABORATORY | | | | | | SERVICES, | | | | | | CORE | | + + + + + + | NEUTROPHIL | 75.0 (H) | 50.0 - 70.0 % | [facility] | | | % | | | LABORATORY | | | | | | SERVICES, | | | | | | CORE | | + + + + + + | LYMPHOCYTE | 15.2 (L) | 18.0 - 42.0 % | [facility] | | | % | | | LABORATORY | | | | | | SERVICES, | | | | | | CORE | | + + + + + + | MONOCYTE % | 6.8 | 3.5 - 9.0 % | [facility] | | | | | | LABORATORY | | | | | | SERVICES, | | | | | | CORE | | + + + + + + | EOS % | 2.0 | 1.0 - 3.0 % | [facility] | | | | | | LABORATORY | | | | | | SERVICES, | | | | | | CORE | | + + + + + + | BASO % | 0.6 | 0.0 - 2.0 % | [facility] | | | | | | LABORATORY | | | | | | SERVICES, | | | | | | CORE | | + + + + + + | IG% | 0.4Comment: Increased | 0.0 - 1.0 % | [facility] | | | | immature granulocytes | | LABORATORY | | | | (IG) define a left | | SERVICES, | | | | shift. Immature | | CORE | | | | granulocytes (IG) are an | | | | | | automated count of | | | | | | metamyelocytes, | | | | | | myelocytes and | | | | | | promyelocytes. Bands | | | | | | are not included in the | | | | | | IG count. Bands are | | | | | | included in the | | | | | | neutrophil count. | | | | + + + + + + | NEUTROPHIL | 10.49 (H) | 1.80 - 7.70 | [facility] | | | # | | K/cu mm | LABORATORY | | | | | | SERVICES, | | | | | | CORE | | + + + + + + | LYMPHOCYTE | 2.13 | 1.00 - 4.80 | [facility] | | | # | | K/cu mm | LABORATORY | | | | | | SERVICES, | | | | | | CORE | | + + + + + + | MONOCYTE # | 0.95 (H) | 0.10 - 0.90 | [facility] | | | | | K/cu mm | LABORATORY | | | | | | SERVICES, | | | | | | CORE | | + + + + + + | EOS # | 0.28 | 0.00 - 0.50 | [facility] | | | | | K/cu mm | LABORATORY | | | | | | SERVICES, | | | | | | CORE | | + + + + + + | BASO # | 0.08 | 0.00 - 0.10 | [facility] | | | | | K/cu mm | LABORATORY | | | | | | SERVICES, | | | | | | CORE | | + + + + + + | IG# | 0.05 | 0.00 - 0.10 | [facility] | | | | | K/cu mm | LABORATORY | | | | | | SERVICES, | | | | | | CORE | | + + + + + + + + | Specimen | + + | Blood | + + + + + | Narrative | Performed At | + + + | New reference ranges for IG% and IG# effective 12/02/2017. | [facility] | | Increased immature granulocytes (IG) define a left shift. Immature | LABORATORY | | granulocytes (IG) are an automated count of metamyelocytes, myelocytes | SERVICES, CORE | | and promyelocytes. Bands are not included in the IG count. Bands are | | | included in the neutrophil count. | | + + + + + + + + | Performing | Address | City/State/Zipcode | Phone Number | | Organization | | | | + + + + + | [facility] | [address] | [place] [address] | | | SERVICES, CORE | [address] | | | + + + + + RENAL FUNCTION SET (NA,K,CL,CO2,BUN,CREAT,GLUC,CA,PHOS,ALB ) (02/24/2018 8:42 AM PDT) + +---------+ + + + | Component | Value | Ref Range | Performed | Pathologist | | | | | At | Signature | + +---------+ + + + | GLUCOSE, | 297 (H) | 70 - 99 mg/dL | [facility] | | | PLASMA | | | LABORATORY | | | (LAB) | | | SERVICES, | | | | | | CORE | | + +---------+ + + + | BUN, PLASMA | 39 (H) | 6 - 20 mg/dL | [facility] | | | (LAB) | | | LABORATORY | | | | | | SERVICES, | | | | | | CORE | | + +---------+ + + + | CREATININE | 0.80 | 0.60 - 1.10 | [facility] | | | PLASMA | | mg/dL | LABORATORY | | | (LAB) | | | SERVICES, | | | | | | CORE | | + +---------+ + + + | EGFR | >60 | >60 mL/min | [facility] | | | - | | | LABORATORY | | | [facility] [facility] | | | SERVICES, | | | | | | CORE | | + +---------+ + + + | EGFR NON | >60 | >60 mL/min | [facility] | | | -JOSEPH | | | LABORATORY | | | [facility] | | | SERVICES, | | | | | | CORE | | + +---------+ + + + | SODIUM, | 146 (H) | 136 - 145 | [facility] | | | PLASMA | | mmol/L | LABORATORY | | | (LAB) | | | SERVICES, | | | | | | CORE | | + +---------+ + + + | POTASSIUM, | 4.0 | 3.4 - 5.0 | [facility] | | | PLASMA | | mmol/L | LABORATORY | | | (LAB) | | | SERVICES, | | | | | | CORE | | + +---------+ + + + | CHLORIDE, | 113 (H) | 97 - 108 mmol/L | [facility] | | | PLASMA | | | LABORATORY | | | (LAB) | | | SERVICES, | | | | | | CORE | | + +---------+ + + + | TOTAL CO2, | 28 | 21 - 32 mmol/L | [facility] | | | PLASMA | | | LABORATORY | | | (LAB) | | | SERVICES, | | | | | | CORE | | + +---------+ + + + | CALCIUM, | 9.1 | 8.6 - 10.2 | [facility] | | | PLASMA | | mg/dL | LABORATORY | | | (LAB) | | | SERVICES, | | | | | | CORE | | + +---------+ + + + | CALCIUM(ALB | 10.1 | 8.6 - 10.2 | [facility] | | | CORRECTED) | | mg/dL | LABORATORY | | | | | | SERVICES, | | | | | | CORE | | + +---------+ + + + | ALBUMIN, | 2.7 (L) | 3.5 - 4.7 g/dL | [facility] | | | PLASMA | | | LABORATORY | | | (LAB) | | | SERVICES, | | | | | | CORE | | + +---------+ + + + | PHOSPHORUS, | 2.4 | 2.4 - 4.7 mg/dL | [facility] | | | PLASMA | | | LABORATORY | | | (LAB) | | | SERVICES, | | | | | | CORE | | + +---------+ + + + | POTASSIUM | No Hemo | | [facility] | | | CMNT | | | LABORATORY | | | | | | SERVICES, | | | | | | CORE | | + +---------+ + + + | ANION GAP | 5 | 4 - 11 mmol/L | [facility] | | | | | | LABORATORY | | | | | | SERVICES, | | | | | | CORE | | + +---------+ + + + | ANION | 8 | 4 - 11 mmol/L | [facility] | | | GAP(ALB | | | LABORATORY | | | CORRECTED) | | | SERVICES, | | | | | | CORE | | + +---------+ + + + + + | Specimen | + + | Blood | + + + + + | Narrative | Performed At | + + + | Adult glucose reference range change effective 7-12-17. GFR is | [facility] | | estimated using the MDRD equation recommended by the National Kidney | LABORATORY | | Disease Education Program. Estimated GFR Interpretive Information: | SERVICES, CORE | | <60 mL/min/1.73 sq m Chronic Kidney | | | Disease <15 mL/min/1.73 sq m Kidney | | | Failure Estimated GFR greater that 60 mL/min/1.73 sq m is of limited | | | clinical value. The MDRD equation is not valid in the following | | | situations: - Patients under 18 years of age - Severe malnutrition | | | or obesity - Vegetarian diet - Rapidly changing kidney function | | + + + + + + + + | Performing | Address | City/State/Zipcode | Phone Number | | Organization | | | | + + + + + | [facility] | [address] | [place] [address] | | | SERVICES, CORE | [address] | | | + + + + + CALCIUM, IONIZED, WHOLE BLOOD (02/24/2018 8:42 AM PDT) + + + + + + | Component | Value | Ref Range | Performed | Pathologist | | | | | At | Signature | + + + + + + | [place] ICA, | 1.32 | 1.14 - 1.32 | [facility] | | | WHOLE BLD | | mmol/L | LABORATORY | | | | | | SERVICES, | | | | | | CORE | | + + + + + + | PH, WHOLE | 7.37 | | [facility] | | | BLOOD | | | LABORATORY | | | | | | SERVICES, | | | | | | CORE | | + + + + + + | ICA, | 1.30 (H) | 1.14 - 1.28 | [facility] | | | CORRECTED | | mmol/L | LABORATORY | | | TO PH 7.4 | | | SERVICES, | | | | | | CORE | | + + + + + + + + | Specimen | + + | Blood | + + + + + + + | Performing | Address | City/State/Zipcode | Phone Number | | Organization | | | | + + + + + | [facility] | [address] | [place] [address] | | | SERVICES, CORE | [address] | | | + + + + + CAPILLARY BLOOD GLUCOSE (NO CHG), POC (02/24/2018 6:03 AM PDT) + +---------+ + + + | Component | Value | Ref Range | Performed | Pathologist | | | | | At | Signature | + +---------+ + + + | BLOOD | 240 (H) | 70 - 99 mg/dL | [facility] - | | | GLUCOSE, | | | [facility] | | | POC | | | [facility] | | | | | | OF CARE | | | | | | TESTS | | + +---------+ + + + + + | Specimen | + + | | + + + + + + + | Performing | Address | City/State/Zipcode | Phone Number | | Organization | | | | + + + + + | [facility] | [address] | [place], [place] | | | [facility] | [facility] | [phone] | | | TESTS | | | | + + + + + CAPILLARY BLOOD GLUCOSE (NO CHG), POC (02/23/2018 11:36 PM PDT) + +---------+ + + + | Component | Value | Ref Range | Performed | Pathologist | | | | | At | Signature | + +---------+ + + + | BLOOD | 220 (H) | 70 - 99 mg/dL | [facility] | | | [facility], | | | [facility] | | | POC | | | [facility] | | | | | | OF CARE | | | | | | TESTS | | + +---------+ + + + + + | Specimen | + + | | + + + + + + + | Performing | Address | City/State/Zipcode | Phone Number | | Organization | | | | + + + + + | [facility] | [address] | [place], [place] | | | [facility] | [address] | [address] | | | TESTS | | | | + + + + + CAPILLARY BLOOD GLUCOSE (NO CHG), POC (02/23/2018 9:20 PM PDT) + +---------+ + + + | Component | Value | Ref Range | Performed | Pathologist | | | | | At | Signature | + +---------+ + + + | BLOOD | 239 (H) | 70 - 99 mg/dL | [facility] | | | [facility], | | | [facility] | | | POC | | | [facility] | | | | | | OF CARE | | | | | | TESTS | | + +---------+ + + + + + | Specimen | + + | | + + + + + + + | Performing | Address | City/State/Zipcode | Phone Number | | Organization | | | | + + + + + | [facility] | [address] | [place], [place] | | | [facility] | [address] | [address] | | | TESTS | | | | + + + + + CAPILLARY BLOOD GLUCOSE (NO CHG), POC (02/23/2018 6:34 PM PDT) + +---------+ + + + | Component | Value | Ref Range | Performed | Pathologist | | | | | At | Signature | + +---------+ + + + | BLOOD | 316 (H) | 70 - 99 mg/dL | [facility] | | | [facility], | | | [facility] | | | POC | | | [facility] | | | | | | OF CARE | | | | | | TESTS | | + +---------+ + + + + + | Specimen | + + | | + + + + + + + | Performing | Address | City/State/Zipcode | Phone Number | | Organization | | | | + + + + + | [facility] | [address] | [place], [place] | | | [facility] | [address] | [address] | | | TESTS | | | | + + + + + CAPILLARY BLOOD GLUCOSE (NO CHG), POC (02/23/2018 1:15 PM PDT) + +---------+ + + + | Component | Value | Ref Range | Performed | Pathologist | | | | | At | Signature | + +---------+ + + + | BLOOD | 314 (H) | 70 - 99 mg/dL | [facility] | | | [facility], | | | [facility] | | | POC | | | [facility] | | | | | | OF CARE | | | | | | TESTS | | + +---------+ + + + + + | Specimen | + + | | + + + + + + + | Performing | Address | City/State/Zipcode | Phone Number | | Organization | | | | + + + + + | [facility] | [address] | [place], [place] | | | [facility] | [address] | [address] | | | TESTS | | | | + + + + + 12 LEAD ECG (02/23/2018 10:31 AM PDT) + + + + + + | Component | Value | Ref Range | Performed | Pathologist | | | | | At | Signature | + + + + + + | VENTRICULAR | 75 | bpm | [facility] | | | RATE | | | OF | | | | | | CARDIOLOGY | | + + + + + + | ATRIAL RATE | 74 | ms | [facility] | | | | | | OF | | | | | | CARDIOLOGY | | + + + + + + | P-R | 183 | ms | [facility] | | | INTERVAL | | | OF | | | | | | CARDIOLOGY | | + + + + + + | P AXIS | 22 | deg | [facility] | | | | | | OF | | | | | | CARDIOLOGY | | + + + + + + | QRS | 79 | ms | [facility] | | | DURATION | | | OF | | | | | | CARDIOLOGY | | + + + + + + | QT | 410 | ms | [facility] | | | | | | OF | | | | | | CARDIOLOGY | | + + + + + + | QTCB | 457 | ms | [facility] | | | | | | OF | | | | | | CARDIOLOGY | | + + + + + + | R AXIS | -65 | deg | [facility] | | | | | | OF | | | | | | CARDIOLOGY | | + + + + + + | T AXIS | 78 | deg | [facility] | | | | | | OF | | | | | | CARDIOLOGY | | + + + + + + | ECG | Sinus rhythm | | [facility] | | | IMPRESSION | | | OF | | | | | | CARDIOLOGY | | + + + + + + | ECG | Anterior infarct, old- | | [facility] | | | IMPRESSION | ABNORMAL ECG - | | OF | | | | | | CARDIOLOGY | | + + + + + + | ECG | Electronically signed | | [facility] | | | IMPRESSION | by: KEN JORGE | | OF | | | | 02-23-2018 14:30:28 | | CARDIOLOGY | | + + + + + + + + | Specimen | + + | | + + + + + | Narrative | Performed At | + + + | | | + + + + + + + + | Performing | Address | City/State/Zipcode | Phone Number | | Organization | | | | + + + + + | [facility] | [address] | [place], [place] | | | CARDIOLOGY | [address] | [address] | | + + + + + CAPILLARY BLOOD GLUCOSE (NO CHG), POC (02/23/2018 7:47 AM PDT) + +---------+ + + + | Component | Value | Ref Range | Performed | Pathologist | | | | | At | Signature | + +---------+ + + + | BLOOD | 312 (H) | 70 - 99 mg/dL | [facility] | | | GLUCOSE, | | | [facility] | | | POC | | | [facility] | | | | | | OF CARE | | | | | | TESTS | | + +---------+ + + + + + | Specimen | + + | | + + + + + + + | Performing | Address | City/State/Zipcode | Phone Number | | Organization | | | | + + + + + | [facility] | [address] | [place], [place] | | | [facility] | [address] | [address] | | | TESTS | | | | + + + + + TSH (02/23/2018 6:20 AM PDT) + +-------+ + + + | Component | Value | Ref Range | Performed | Pathologist | | | | | At | Signature | + +-------+ + + + | TSH | 1.80 | 0.46 - 5.56 | [facility] | | | | | mIU/L | LABORATORY | | | | | | SERVICES, | | | | | | CORE | | + +-------+ + + + + + | Specimen | + + | Blood | + + + + + | Narrative | Performed At | + + + | TSH reference ranges are influenced by a variety of environmental | [facility] | | influences, age, gender and ethnicity. The supplied reference limits | LABORATORY | | are based on published values utilizing a similar TSH assay, and | SERVICES, CORE | | should be interpreted with caution. | | + + + + + + + + | Performing | Address | City/State/Zipcode | Phone Number | | Organization | | | | + + + + + | [facility] | [address] [facility] | [place] [address] | | | SERVICES, CORE | [address] | | | + + + + + LIVER SET (AST,ALT,BILI TOTAL,BILI DIRECT,ALK PHOS,ALB,PROT TOTAL) (02/23/2018 6:20 AM PDT ) + +---------+ + + + | Component | Value | Ref Range | Performed | Pathologist | | | | | At | Signature | + +---------+ + + + | ALBUMIN, | 2.7 (L) | 3.5 - 4.7 g/dL | [facility] | | | PLASMA | | | LABORATORY | | | (LAB) | | | SERVICES, | | | | | | CORE | | + +---------+ + + + | BILIRUBIN | 0.4 | 0.3 - 1.2 mg/dL | [facility] | | | TOTAL | | | LABORATORY | | | | | | SERVICES, | | | | | | CORE | | + +---------+ + + + | BILIRUBIN | 0.1 | 0.0 - 0.3 mg/dL | [facility] | | | DIRECT | | | LABORATORY | | | | | | SERVICES, | | | | | | CORE | | + +---------+ + + + | ALK PHOS | 66 | 53 - 141 U/L | [facility] | | | | | | LABORATORY | | | | | | SERVICES, | | | | | | CORE | | + +---------+ + + + | AST(SGOT) | 44 (H) | <=41 U/L | [facility] | | | | | | LABORATORY | | | | | | SERVICES, | | | | | | CORE | | + +---------+ + + + | ALT (SGPT) | 53 | <=60 U/L | [facility] | | | | | | LABORATORY | | | | | | SERVICES, | | | | | | CORE | | + +---------+ + + + | TOTAL | 7.8 | 6.4 - 8.2 g/dL | [facility] | | | PROTEIN, | | | LABORATORY | | | PLASMA | | | SERVICES, | | | (LAB) | | | CORE | | + +---------+ + + + | AST CMNT | No Hemo | | [facility] | | | | | | LABORATORY | | | | | | SERVICES, | | | | | | CORE | | + +---------+ + + + | BILI T CMNT | No Hemo | | [facility] | | | | | | LABORATORY | | | | | | SERVICES, | | | | | | CORE | | + +---------+ + + + | BILI D CMNT | No Hemo | | [facility] | | | | | | LABORATORY | | | | | | SERVICES, | | | | | | CORE | | + +---------+ + + + + + | Specimen | + + | Blood | + + + + + + + | Performing | Address | City/State/Zipcode | Phone Number | | Organization | | | | + + + + + | [facility] | [address] | [place] [address] | | | SERVICES, CORE | [address] | | | + + + + + LIPID SET (TRIG, T CHOL, HDL, CALC LDL) (02/23/2018 6:20 AM PDT) + +---------+ + + + | Component | Value | Ref Range | Performed | Pathologist | | | | | At | Signature | + +---------+ + + + | CHOLESTEROL | 151 | <200 mg/dL | [facility] | | | (LAB) | | | LABORATORY | | | | | | SERVICES, | | | | | | CORE | | + +---------+ + + + | TRIGLYCERID | 170 (H) | <150 mg/dL | [facility] | | | ES | | | LABORATORY | | | | | | SERVICES, | | | | | | CORE | | + +---------+ + + + | HDL | 34 (L) | >40 mg/dL | [facility] | | | CHOLESTEROL | | | LABORATORY | | | | | | SERVICES, | | | | | | CORE | | + +---------+ + + + | HDL CMNT | No Hemo | | [facility] | | | | | | LABORATORY | | | | | | SERVICES, | | | | | | CORE | | + +---------+ + + + | LDL | 83 | <100 mg/dL | [facility] | | | CHOLESTEROL | | | LABORATORY | | | , | | | SERVICES, | | | CALCULATED | | | CORE | | + +---------+ + + + | VLDL | 34 (H) | <31 mg/dL | [facility] | | | CHOLESTEROL | | | LABORATORY | | | , | | | SERVICES, | | | CALCULATED | | | CORE | | + +---------+ + + + | NON-HDL | 117 | <130 mg/dL | [facility] | | | CHOLESTEROL | | | LABORATORY | | | | | | SERVICES, | | | | | | CORE | | + +---------+ + + + + + | Specimen | + + | Blood | + + + + + | Narrative | Performed At | + + + | Cholesterol Reference Range: Desirable: <200 | [facility] | | mg/dL Borderline High: 200 - 239 mg/dL | LABORATORY | | High: >=240 mg/dL | SERVICES, CORE | | LDL Cholesterol Reference Range: | | | Optimal: <100 mg/dL Near | | | Optimal: 100-129 mg/dL Borderline High: 130-159 mg/dL | | | High: 160-189 mg/dL | | | Very High: >=190 mg/dL non-HDL Cholesterol | | | Reference Range: Optimal: <130 mg/dL | | | Near Optimal: 130-159 mg/dL Borderline | | | High: 160-189 mg/dL High: | | | 190-209 mg/dL Very High: >=210 mg/dL | | | Triglyceride Reference Range: Normal: <150 | | | mg/dL Borderline High: 150-199 mg/dL | | | High: 200-499 mg/dL Very | | | High: >=500 mg/dL HDL Reference Range: High | | | Risk: <40 mg/dL Desirable: >=60 mg/dL | | + + + + + + + + | Performing | Address | City/State/Zipcode | Phone Number | | Organization | | | | + + + + + | [facility] | [address] | [place] [address] | | | SERVICES, [place] | [address] | | | + + + + + CBC AND AUTO DIFF (02/23/2018 6:20 AM PDT) + + + + + + | Component | Value | Ref Range | Performed | Pathologist | | | | | At | Signature | + + + + + + | WHITE CELL | 15.30 (H) | 3.50 - 10.80 | [facility] | | | COUNT | | K/cu mm | LABORATORY | | | | | | SERVICES, | | | | | | CORE | | + + + + + + | RED CELL | 4.87 | 4.00 - 5.20 | [facility] | | | COUNT | | M/cu mm | LABORATORY | | | | | | SERVICES, | | | | | | CORE | | + + + + + + | HEMOGLOBIN | 13.5 | 12.0 - 16.0 | [facility] | | | | | g/dL | LABORATORY | | | | | | SERVICES, | | | | | | CORE | | + + + + + + | HEMATOCRIT | 44.0 | 36.0 - 46.0 % | [facility] | | | | | | LABORATORY | | | | | | SERVICES, | | | | | | CORE | | + + + + + + | MCV | 90.3 | 80.0 - 96.0 fL | [facility] | | | | | | LABORATORY | | | | | | SERVICES, | | | | | | CORE | | + + + + + + | MCHC | 30.7 | 33.0 - 35.5 | [facility] | | | | | g/dL | LABORATORY | | | | | | SERVICES, | | | | | | CORE | | + + + + + + | RDW SD | 47.2 (H) | 35.1 - 46.3 fL | [facility] | | | | | | LABORATORY | | | | | | SERVICES, | | | | | | CORE | | + + + + + + | PLATELET | 428 (H) | 150 - 400 K/cu | [facility] | | | COUNT | | mm | LABORATORY | | | | | | SERVICES, | | | | | | CORE | | + + + + + + | MPV | 9.7 | 9.7 - 12.3 fL | [facility] | | | | | | LABORATORY | | | | | | SERVICES, | | | | | | CORE | | + + + + + + | NRBC% | 0.0 | 0.0 - 0.3 % | [facility] | | | | | | LABORATORY | | | | | | SERVICES, | | | | | | CORE | | + + + + + + | NRBC# | 0.00 | 0.00 - 0.02 | [facility] | | | | | K/cu mm | LABORATORY | | | | | | SERVICES, | | | | | | CORE | | + + + + + + | NEUTROPHIL | 78.7 (H) | 50.0 - 70.0 % | [facility] | | | % | | | LABORATORY | | | | | | SERVICES, | | | | | | CORE | | + + + + + + | LYMPHOCYTE | 12.5 (L) | 18.0 - 42.0 % | [facility] | | | % | | | LABORATORY | | | | | | SERVICES, | | | | | | CORE | | + + + + + + | MONOCYTE % | 6.9 | 3.5 - 9.0 % | [facility] | | | | | | LABORATORY | | | | | | SERVICES, | | | | | | CORE | | + + + + + + | EOS % | 1.0 | 1.0 - 3.0 % | [facility] | | | | | | LABORATORY | | | | | | SERVICES, | | | | | | CORE | | + + + + + + | BASO % | 0.5 | 0.0 - 2.0 % | [facility] | | | | | | LABORATORY | | | | | | SERVICES, | | | | | | CORE | | + + + + + + | IG% | 0.4Comment: Increased | 0.0 - 1.0 % | [facility] | | | | immature granulocytes | | LABORATORY | | | | (IG) define a left | | SERVICES, | | | | shift. Immature | | CORE | | | | granulocytes (IG) are an | | | | | | automated count of | | | | | | metamyelocytes, | | | | | | myelocytes and | | | | | | promyelocytes. Bands | | | | | | are not included in the | | | | | | IG count. Bands are | | | | | | included in the | | | | | | neutrophil count. | | | | + + + + + + | NEUTROPHIL | 12.04 (H) | 1.80 - 7.70 | [facility] | | | # | | K/cu mm | LABORATORY | | | | | | SERVICES, | | | | | | CORE | | + + + + + + | LYMPHOCYTE | 1.92 | 1.00 - 4.80 | [facility] | | | # | | K/cu mm | LABORATORY | | | | | | SERVICES, | | | | | | CORE | | + + + + + + | MONOCYTE # | 1.05 (H) | 0.10 - 0.90 | [facility] | | | | | K/cu mm | LABORATORY | | | | | | SERVICES, | | | | | | CORE | | + + + + + + | EOS # | 0.15 | 0.00 - 0.50 | [facility] | | | | | K/cu mm | LABORATORY | | | | | | SERVICES, | | | | | | CORE | | + + + + + + | BASO # | 0.08 | 0.00 - 0.10 | [facility] | | | | | K/cu mm | LABORATORY | | | | | | SERVICES, | | | | | | CORE | | + + + + + + | IG# | 0.06 | 0.00 - 0.10 | [facility] | | | | | K/cu mm | LABORATORY | | | | | | SERVICES, | | | | | | CORE | | + + + + + + + + | Specimen | + + | Blood | + + + + + | Narrative | Performed At | + + + | New reference ranges for IG% and IG# effective 12/02/2017. | [facility] | | Increased immature granulocytes (IG) define a left shift. Immature | LABORATORY | | granulocytes (IG) are an automated count of metamyelocytes, myelocytes | SERVICES, CORE | | and promyelocytes. Bands are not included in the IG count. Bands are | | | included in the neutrophil count. | | + + + + + + + + | Performing | Address | City/State/Zipcode | Phone Number | | Organization | | | | + + + + + | [facility] | [address] | [place] [address] | | | SERVICES, CORE | [address] | | | + + + + + RENAL FUNCTION SET (NA,K,CL,CO2,BUN,CREAT,GLUC,CA,PHOS,ALB ) (02/23/2018 6:20 AM PDT) + + + + + + | Component | Value | Ref Range | Performed | Pathologist | | | | | At | Signature | + + + + + + | GLUCOSE, | 313 (H) | 70 - 99 mg/dL | [facility] | | | PLASMA | | | LABORATORY | | | (LAB) | | | SERVICES, | | | | | | CORE | | + + + + + + | BUN, PLASMA | 54 (H) | 6 - 20 mg/dL | [facility] | | | (LAB) | | | LABORATORY | | | | | | SERVICES, | | | | | | CORE | | + + + + + + | CREATININE | 0.92 | 0.60 - 1.10 | [facility] | | | PLASMA | | mg/dL | LABORATORY | | | (LAB) | | | SERVICES, | | | | | | CORE | | + + + + + + | EGFR | >60 | >60 mL/min | [facility] | | | - | | | LABORATORY | | | [place] | | | SERVICES, | | | | | | CORE | | + + + + + + | EGFR NON | >60 | >60 mL/min | [facility] | | | -JOSEPH | | | LABORATORY | | | [facility] | | | SERVICES, | | | | | | CORE | | + + + + + + | SODIUM, | 145 | 136 - 145 | [facility] | | | PLASMA | | mmol/L | LABORATORY | | | (LAB) | | | SERVICES, | | | | | | CORE | | + + + + + + | POTASSIUM, | 3.9 | 3.4 - 5.0 | [facility] | | | PLASMA | | mmol/L | LABORATORY | | | (LAB) | | | SERVICES, | | | | | | CORE | | + + + + + + | CHLORIDE, | 112 (H) | 97 - 108 mmol/L | [facility] | | | PLASMA | | | LABORATORY | | | (LAB) | | | SERVICES, | | | | | | CORE | | + + + + + + | TOTAL CO2, | 25 | 21 - 32 mmol/L | [facility] | | | PLASMA | | | LABORATORY | | | (LAB) | | | SERVICES, | | | | | | CORE | | + + + + + + | CALCIUM, | 9.6 | 8.6 - 10.2 | [facility] | | | PLASMA | | mg/dL | LABORATORY | | | (LAB) | | | SERVICES, | | | | | | CORE | | + + + + + + | CALCIUM(ALB | 10.7 (H) | 8.6 - 10.2 | [facility] | | | CORRECTED) | | mg/dL | LABORATORY | | | | | | SERVICES, | | | | | | CORE | | + + + + + + | ALBUMIN, | 2.6 (L) | 3.5 - 4.7 g/dL | [facility] | | | PLASMA | | | LABORATORY | | | (LAB) | | | SERVICES, | | | | | | CORE | | + + + + + + | PHOSPHORUS, | 2.6 | 2.4 - 4.7 mg/dL | [facility] | | | PLASMA | | | LABORATORY | | | (LAB) | | | SERVICES, | | | | | | CORE | | + + + + + + | POTASSIUM | No Hemo | | [facility] | | | CMNT | | | LABORATORY | | | | | | SERVICES, | | | | | | CORE | | + + + + + + | ANION GAP | 8 | 4 - 11 mmol/L | [facility] | | | | | | LABORATORY | | | | | | SERVICES, | | | | | | CORE | | + + + + + + | ANION | 11 | 4 - 11 mmol/L | [facility] | | | GAP(ALB | | | LABORATORY | | | CORRECTED) | | | SERVICES, | | | | | | CORE | | + + + + + + + + | Specimen | + + | Blood | + + + + + | Narrative | Performed At | + + + | Adult glucose reference range change effective 05-23-17. GFR is | [facility] | | estimated using the MDRD equation recommended by the National Kidney | LABORATORY | | Disease Education Program. Estimated GFR Interpretive Information: | SERVICES, CORE | | <60 mL/min/1.73 sq m Chronic Kidney | | | Disease <15 mL/min/1.73 sq m Kidney | | | Failure Estimated GFR greater that 60 mL/min/1.73 sq m is of limited | | | clinical value. The MDRD equation is not valid in the following | | | situations: - Patients under 18 years of age - Severe malnutrition | | | or obesity - Vegetarian diet - Rapidly changing kidney function | | + + + + + + + + | Performing | Address | City/State/Zipcode | Phone Number | | Organization | | | | + + + + + | [facility] | [address] | [place] [address] | | | SERVICES, [place] | [address] | | | + + + + + CAPILLARY BLOOD GLUCOSE (NO CHG), POC (02/23/2018 6:11 AM PDT) + +---------+ + + + | Component | Value | Ref Range | Performed | Pathologist | | | | | At | Signature | + +---------+ + + + | BLOOD | 294 (H) | 70 - 99 mg/dL | [facility] - | | | GLUCOSE, | | | [facility] | | | POC | | | [place] [place] | | | | | | OF CARE | | | | | | TESTS | | + +---------+ + + + + + | Specimen | + + | | + + + + + + + | Performing | Address | City/State/Zipcode | Phone Number | | Organization | | | | + + + + + | [facility] | [address] | [place], [place] | | | [facility] | [facility] | [address] | | | TESTS | | | | + + + + + CAPILLARY BLOOD GLUCOSE (NO CHG), POC (02/23/2018 12:28 AM PDT) + +---------+ + + + | Component | Value | Ref Range | Performed | Pathologist | | | | | At | Signature | + +---------+ + + + | BLOOD | 309 (H) | 70 - 99 mg/dL | [facility] | | | GLUCOSE, | | | [facility] | | | POC | | | [facility] | | | | | | OF CARE | | | | | | TESTS | | + +---------+ + + + + + | Specimen | + + | | + + + + + + + | Performing | Address | City/State/Zipcode | Phone Number | | Organization | | | | + + + + + | [facility] | [address] | [place], [place] | | | [facility] | [address] | [address] | | | TESTS | | | | + + + + + CAPILLARY BLOOD GLUCOSE (NO CHG), POC (02/22/2018 9:59 PM PDT) + +---------+ + + + | Component | Value | Ref Range | Performed | Pathologist | | | | | At | Signature | + +---------+ + + + | BLOOD | 269 (H) | 70 - 99 mg/dL | [facility] | | | GLUCOSE, | | | [facility] | | | POC | | | [facility] | | | | | | OF CARE | | | | | | TESTS | | + +---------+ + + + + + | Specimen | + + | | + + + + + + + | Performing | Address | City/State/Zipcode | Phone Number | | Organization | | | | + + + + + | [facility] | [address] | [place], [place] | | | [facility] | [facility] | [address] | | | TESTS | | | | + + + + + CAPILLARY BLOOD GLUCOSE (NO CHG), POC (02/22/2018 6:09 PM PDT) + +---------+ + + + | Component | Value | Ref Range | Performed | Pathologist | | | | | At | Signature | + +---------+ + + + | BLOOD | 189 (H) | 70 - 99 mg/dL | [facility] - | | | GLUCOSE, | | | [facility] | | | POC | | | [facility] [place] | | | | | | OF CARE | | | | | | TESTS | | + +---------+ + + + + + | Specimen | + + | | + + + + + + + | Performing | Address | City/State/Zipcode | Phone Number | | Organization | | | | + + + + + | [facility] | [address] | [place], [place] | | | [facility] | [facility] | [phone] | | | TESTS | | | | + + + + + C. DIFFICILE PCR (02/22/2018 3:12 PM PDT) + + + + + + | Component | Value | Ref Range | Performed | Pathologist | | | | | At | Signature | + + + + + + | C. | Negative by PCR | Negative by PCR | [facility] | | | DIFFICILE | | | LABORATORY | | | TOXIGENIC | | | SERVICES, | | | STRAIN | | | CORE | | + + + + + + | [id number] | Presumptive Negative | Presumptive | [facility] | | | STRAIN | | Negative | LABORATORY | | | | | | SERVICES, | | | | | | CORE | | + + + + + + + + | Specimen | + + | Stool | + + + + + + + | Performing | Address | City/State/Zipcode | Phone Number | | Organization | | | | + + + + + | [facility] | [address] | [place] [address] | | | SERVICES, CORE | [address] | | | + + + + + C. DIFFICILE TOXIN, W/REFLEX CONFIRMATION IF INDETERMINATE RESULTS (02/22/2018 3:12 PM PDT ) + + + + + + | Component | Value | Ref Range | Performed | Pathologist | | | | | At | Signature | + + + + + + | C.DIFFICILE | Indeterminate (A) | Negative | [facility] | | | TOXIN | | | LABORATORY | | | | | | SERVICES, | | | | | | CORE | | + + + + + + + + | Specimen | + + | Stool | + + + + + + + | Performing | Address | City/State/Zipcode | Phone Number | | Organization | | | | + + + + + | [facility] | [address] | [place] [address] | | | SERVICES, CORE | [address] | | | + + + + + CAPILLARY BLOOD GLUCOSE (NO CHG), POC (02/22/2018 2:52 PM PDT) + +---------+ + + + | Component | Value | Ref Range | Performed | Pathologist | | | | | At | Signature | + +---------+ + + + | BLOOD | 145 (H) | 70 - 99 mg/dL | [facility] - | | | GLUCOSE, | | | [facility] | | | POC | | | [facility] | | | | | | OF CARE | | | | | | TESTS | | + +---------+ + + + + + | Specimen | + + | | + + + + + + + | Performing | Address | City/State/Zipcode | Phone Number | | Organization | | | | + + + + + | [facility] | [address] | [place], [place] | | | [facility] | [address] | [address] | | | TESTS | | | | + + + + + CAPILLARY BLOOD GLUCOSE (NO CHG), POC (02/22/2018 1:41 PM PDT) + +---------+ + + + | Component | Value | Ref Range | Performed | Pathologist | | | | | At | Signature | + +---------+ + + + | BLOOD | 171 (H) | 70 - 99 mg/dL | [facility] - | | | GLUCOSE, | | | [facility] | | | POC | | | [facility] | | | | | | OF CARE | | | | | | TESTS | | + +---------+ + + + + + | Specimen | + + | | + + + + + + + | Performing | Address | City/State/Zipcode | Phone Number | | Organization | | | | + + + + + | [facility] | [address] | [place], [place] | | | [facility] | [address] | [address] | | | TESTS | | | | + + + + + X-RAY ABD LTD FEEDING TUBE EVAL (02/22/2018 12:32 PM PDT) + + | Specimen | + + | | + + + + + | Narrative | Performed At | + + + | HISTORY: Feeding tube. COMPARISON: [facility] 02/12/18. | [facility] | | IMPRESSION: Single frontal view of the abdomen obtained. The tip | RADIOLOGY VOICE | | of the feeding tube is in the gastric fundus, pointing to the left. | RECOGNITION | | I have personally reviewed the images and, if necessary, edited | | | the report. I agree with the report as now presented. | | + + + + + | Procedure Note | + + | Service Account, Radiant Res In Interface - 02/22/2018 3:23 PM PDT HISTORY: Feeding | | tube.COMPARISON: [facility] of 02/12/18.IMPRESSION:Single frontal view of the abdomen obtained. | | The tip of the feeding tube is in the gastric fundus, pointing to the left.I have | | personally reviewed the images and, if necessary, edited the report. I agree with the | | report as now presented. | | | |Single frontal view of the abdomen obtained. The tip of the feeding tube is in the gastric fundus, pointing to the left. | | | | | |I have personally reviewed the images and, if necessary, edited the report. I agree with t he report as now presented. | + + + +---------+ + + | Performing | Address | City/State/Zipcode | Phone Number | | Organization | | | | + +---------+ + + | [facility] | | | | | VOICE RECOGNITION | | | | + +---------+ + + CAPILLARY BLOOD GLUCOSE (NO CHG), POC (02/22/2018 12:27 PM PDT) + +---------+ + + + | Component | Value | Ref Range | Performed | Pathologist | | | | | At | Signature | + +---------+ + + + | BLOOD | 175 (H) | 70 - 99 mg/dL | [facility] - | | | GLUCOSE, | | | [place] | | | POC | | | [facility] | | | | | | OF CARE | | | | | | TESTS | | + +---------+ + + + + + | Specimen | + + | | + + + + + + + | Performing | Address | City/State/Zipcode | Phone Number | | Organization | | | | + + + + + | [facility] | [address] | [place], [place] | | | [facility] | [facility] | [address] | | | TESTS | | | | + + + + + CAPILLARY BLOOD GLUCOSE (NO CHG), POC (02/22/2018 11:17 AM PDT) + +---------+ + + + | Component | Value | Ref Range | Performed | Pathologist | | | | | At | Signature | + +---------+ + + + | BLOOD | 150 (H) | 70 - 99 mg/dL | [facility] - | | | GLUCOSE, | | | [place] | | | POC | | | [facility] | | | | | | OF CARE | | | | | | TESTS | | + +---------+ + + + + + | Specimen | + + | | + + + + + + + | Performing | Address | City/State/Zipcode | Phone Number | | Organization | | | | + + + + + | [facility] | [address] | [place], [place] | | | [facility] | [address] | [address] | | | TESTS | | | | + + + + + CAPILLARY BLOOD GLUCOSE (NO CHG), POC (02/22/2018 10:19 AM PDT) + +---------+ + + + | Component | Value | Ref Range | Performed | Pathologist | | | | | At | Signature | + +---------+ + + + | BLOOD | 148 (H) | 70 - 99 mg/dL | [facility] | | | GLUCOSE, | | | [facility] | | | POC | | | [facility] | | | | | | [facility] CARE | | | | | | TESTS | | + +---------+ + + + + + | Specimen | + + | | + + + + + + + | Performing | Address | City/State/Zipcode | Phone Number | | Organization | | | | + + + + + | [facility] | [address] | [place], [place] | | | [facility] | [address] | [phone] | | | TESTS | | | | + + + + + CT HEAD WO CONTRAST (02/22/2018 10:08 AM PDT) + + | Specimen | + + | | + + + + + | Narrative | Performed At | + + + | EXAM: CT head without contrast HISTORY: Encephalopathy. | [facility] | | COMPARISON: None TECHNIQUE: CT of the head without contrast. | [facility] | | FINDINGS: Brain: No acute intracranial abnormality. No evidence | RECOGNITION | | of hemorrhage, mass, or acute infarction. The ventricles are | | | normal in size and morphology. Soft tissues: Unremarkable Skull | | | and skull base: No fractures or destructive lesions. Mastoids and | | | middle ears are unremarkable. Face/orbits: Visualized portions are | | | unremarkable. Paranasal sinuses: Fluid layers within the maxillary | | | and sphenoid sinuses, and frothy secretions fill the left maxillary | | | sinus. IMPRESSION: Frothy secretions fill the paranasal | | | sinuses, which may be seen in the setting of sinusitis. No acute | | | intracranial abnormality. I have personally reviewed the images | | | and, if necessary, edited the report. I agree with the report as | | | now presented. | | + + + + + | Procedure Note | + + | Service Account, Radiant Res In Interface - 02/22/2018 1:08 PM PDT EXAM: CT head | | without contrastHISTORY: Encephalopathy.COMPARISON: NoneTECHNIQUE: CT of the head | | without contrast.FINDINGS:Brain: No acute intracranial abnormality. No evidence of | | hemorrhage, mass, or acute infarction. The ventricles are normal in size and | | morphology.Soft tissues: UnremarkableSkull and skull base: No fractures or destructive | | lesions. Mastoids and middle ears are unremarkable.Face/orbits: Visualized portions are | | unremarkable.Paranasal sinuses: Fluid layers within the maxillary and sphenoid sinuses, | | and frothy secretions fill the left maxillary sinus.IMPRESSION:Frothy secretions fill | | the paranasal sinuses, which may be seen in the setting of sinusitis.No acute | | intracranial abnormality.I have personally reviewed the images and, if necessary, edited | | the report. I agree with the report as now presented. | | | |Soft tissues: Unremarkable | |Skull and skull base: No fractures or destructive lesions. Mastoids and middle ears are unr emarkable. | |Face/orbits: Visualized portions are unremarkable. | |Paranasal sinuses: Fluid layers within the maxillary and sphenoid sinuses, and frothy secre tions fill the left maxillary sinus. | | | |IMPRESSION: | | | |Frothy secretions fill the paranasal sinuses, which may be seen in the setting of sinusitis . | | | |No acute intracranial abnormality. | | | | | |I have personally reviewed the images and, if necessary, edited the report. I agree with t he report as now presented. | + + + +---------+ + + | Performing | Address | City/State/Zipcode | Phone Number | | Organization | | | | + +---------+ + + | [facility] | | | | | VOICE RECOGNITION | | | | + +---------+ + + CAPILLARY BLOOD GLUCOSE (NO CHG), POC (02/22/2018 9:10 AM PDT) + +---------+ + + + | Component | Value | Ref Range | Performed | Pathologist | | | | | At | Signature | + +---------+ + + + | BLOOD | 150 (H) | 70 - 99 mg/dL | [facility] | | | GLUCOSE, | | | [facility] | | | POC | | | [facility] | | | | | | OF CARE | | | | | | TESTS | | + +---------+ + + + + + | Specimen | + + | | + + + + + + + | Performing | Address | City/State/Zipcode | Phone Number | | Organization | | | | + + + + + | [facility] | [address] | [place], [place] | | | [facility] | [address] | [address] | | | TESTS | | | | + + + + + CAPILLARY BLOOD GLUCOSE (NO CHG), POC (02/22/2018 8:06 AM PDT) + +---------+ + + + | Component | Value | Ref Range | Performed | Pathologist | | | | | At | Signature | + +---------+ + + + | BLOOD | 159 (H) | 70 - 99 mg/dL | [facility] | | | GLUCOSE, | | | [facility] | | | POC | | | [facility] | | | | | | OF CARE | | | | | | TESTS | | + +---------+ + + + + + | Specimen | + + | | + + + + + + + | Performing | Address | City/State/Zipcode | Phone Number | | Organization | | | | + + + + + | [facility] | [address] | [place], [place] | | | [facility] | [facility] | [address] | | | TESTS | | | | + + + + + CAPILLARY BLOOD GLUCOSE (NO CHG), POC (02/22/2018 6:52 AM PDT) + +---------+ + + + | Component | Value | Ref Range | Performed | Pathologist | | | | | At | Signature | + +---------+ + + + | BLOOD | 156 (H) | 70 - 99 mg/dL | [facility] | | | GLUCOSE, | | | [facility] | | | POC | | | [place] | | | | | | OF CARE | | | | | | TESTS | | + +---------+ + + + + + | Specimen | + + | | + + + + + + + | Performing | Address | City/State/Zipcode | Phone Number | | Organization | | | | + + + + + | [facility] | [address] | [place], [place] | | | [facility] | [facility] | [phone] | | | TESTS | | | | + + + + + CAPILLARY BLOOD GLUCOSE (NO CHG), POC (02/22/2018 5:48 AM PDT) + +---------+ + + + | Component | Value | Ref Range | Performed | Pathologist | | | | | At | Signature | + +---------+ + + + | BLOOD | 160 (H) | 70 - 99 mg/dL | [facility] - | | | GLUCOSE, | | | [facility] | | | POC | | | [facility] | | | | | | OF CARE | | | | | | TESTS | | + +---------+ + + + + + | Specimen | + + | | + + + + + + + | Performing | Address | City/State/Zipcode | Phone Number | | Organization | | | | + + + + + | [facility] | [address] | [place], [place] | | | [facility] | [address] | [address] | | | TESTS | | | | + + + + + CBC AND AUTO DIFF (02/22/2018 5:44 AM PDT) + + + + + + | Component | Value | Ref Range | Performed | Pathologist | | | | | At | Signature | + + + + + + | WHITE CELL | 17.11 (H) | 3.50 - 10.80 | [facility] | | | COUNT | | K/cu mm | LABORATORY | | | | | | SERVICES, | | | | | | CORE | | + + + + + + | RED CELL | 4.93 | 4.00 - 5.20 | [facility] | | | COUNT | | M/cu mm | LABORATORY | | | | | | SERVICES, | | | | | | CORE | | + + + + + + | HEMOGLOBIN | 13.6 | 12.0 - 16.0 | [facility] | | | | | g/dL | LABORATORY | | | | | | SERVICES, | | | | | | CORE | | + + + + + + | HEMATOCRIT | 44.2 | 36.0 - 46.0 % | [facility] | | | | | | LABORATORY | | | | | | SERVICES, | | | | | | CORE | | + + + + + + | MCV | 89.7 | 80.0 - 96.0 fL | [facility] | | | | | | LABORATORY | | | | | | SERVICES, | | | | | | CORE | | + + + + + + | MCHC | 30.8 | 33.0 - 35.5 | [facility] | | | | | g/dL | LABORATORY | | | | | | SERVICES, | | | | | | CORE | | + + + + + + | RDW SD | 46.2 | 35.1 - 46.3 fL | [facility] | | | | | | LABORATORY | | | | | | SERVICES, | | | | | | CORE | | + + + + + + | PLATELET | 401 (H) | 150 - 400 K/cu | [facility] | | | COUNT | | mm | LABORATORY | | | | | | SERVICES, | | | | | | CORE | | + + + + + + | MPV | 9.4 (L) | 9.7 - 12.3 fL | [facility] | | | | | | LABORATORY | | | | | | SERVICES, | | | | | | CORE | | + + + + + + | NRBC% | 0.0 | 0.0 - 0.3 % | [facility] | | | | | | LABORATORY | | | | | | SERVICES, | | | | | | CORE | | + + + + + + | NRBC# | 0.00 | 0.00 - 0.02 | [facility] | | | | | K/cu mm | LABORATORY | | | | | | SERVICES, | | | | | | CORE | | + + + + + + | NEUTROPHIL | 78.7 (H) | 50.0 - 70.0 % | [facility] | | | % | | | LABORATORY | | | | | | SERVICES, | | | | | | CORE | | + + + + + + | LYMPHOCYTE | 11.9 (L) | 18.0 - 42.0 % | [facility] | | | % | | | LABORATORY | | | | | | SERVICES, | | | | | | CORE | | + + + + + + | MONOCYTE % | 6.8 | 3.5 - 9.0 % | [facility] | | | | | | LABORATORY | | | | | | SERVICES, | | | | | | CORE | | + + + + + + | EOS % | 1.4 | 1.0 - 3.0 % | [facility] | | | | | | LABORATORY | | | | | | SERVICES, | | | | | | CORE | | + + + + + + | BASO % | 0.6 | 0.0 - 2.0 % | [facility] | | | | | | LABORATORY | | | | | | SERVICES, | | | | | | CORE | | + + + + + + | IG% | 0.6Comment: Increased | 0.0 - 1.0 % | [facility] | | | | immature granulocytes | | LABORATORY | | | | (IG) define a left | | SERVICES, | | | | shift. Immature | | CORE | | | | granulocytes (IG) are an | | | | | | automated count of | | | | | | metamyelocytes, | | | | | | myelocytes and | | | | | | promyelocytes. Bands | | | | | | are not included in the | | | | | | IG count. Bands are | | | | | | included in the | | | | | | neutrophil count. | | | | + + + + + + | NEUTROPHIL | 13.48 (H) | 1.80 - 7.70 | [facility] | | | # | | K/cu mm | LABORATORY | | | | | | SERVICES, | | | | | | CORE | | + + + + + + | LYMPHOCYTE | 2.03 | 1.00 - 4.80 | [facility] | | | # | | K/cu mm | LABORATORY | | | | | | SERVICES, | | | | | | CORE | | + + + + + + | MONOCYTE # | 1.16 (H) | 0.10 - 0.90 | [facility] | | | | | K/cu mm | LABORATORY | | | | | | SERVICES, | | | | | | CORE | | + + + + + + | EOS # | 0.24 | 0.00 - 0.50 | [facility] | | | | | K/cu mm | LABORATORY | | | | | | SERVICES, | | | | | | CORE | | + + + + + + | BASO # | 0.10 | 0.00 - 0.10 | [facility] | | | | | K/cu mm | LABORATORY | | | | | | SERVICES, | | | | | | CORE | | + + + + + + | IG# | 0.10 | 0.00 - 0.10 | [facility] | | | | | K/cu mm | LABORATORY | | | | | | SERVICES, | | | | | | CORE | | + + + + + + + + | Specimen | + + | Blood | + + + + + | Narrative | Performed At | + + + | New reference ranges for IG% and IG# effective 12/02/2017. | [facility] | | Increased immature granulocytes (IG) define a left shift. Immature | LABORATORY | | granulocytes (IG) are an automated count of metamyelocytes, myelocytes | SERVICES, CORE | | and promyelocytes. Bands are not included in the IG count. Bands are | | | included in the neutrophil count. | | + + + + + + + + | Performing | Address | City/State/Zipcode | Phone Number | | Organization | | | | + + + + + | [facility] | [address] [facility] | [place] [address] | | | SERVICES, CORE | [address] | | | + + + + + AMMONIA, PLASMA (02/22/2018 5:44 AM PDT) + +-------+ + + + | Component | Value | Ref Range | Performed | Pathologist | | | | | At | Signature | + +-------+ + + + | AMMONIA | 11 | 11 - 35 umol/L | [facility] | | | (LAB) | | | LABORATORY | | | | | | SERVICES, | | | | | | CORE | | + +-------+ + + + + + | Specimen | + + | Blood | + + + + + + + | Performing | Address | City/State/Zipcode | Phone Number | | Organization | | | | + + + + + | [facility] | [address] | [place] [address] | | | SERVICES, CORE | [address] | | | + + + + + BLOOD GASES, VENOUS - LAB (02/22/2018 5:44 AM PDT) + +--------+ + + + | Component | Value | Ref Range | Performed | Pathologist | | | | | At | Signature | + +--------+ + + + | PH VENOUS | 7.42 | 7.35 - 7.45 | [facility] | | | | | | LABORATORY | | | | | | SERVICES, | | | | | | CORE | | + +--------+ + + + | PCO2 VENOUS | 43 | 35 - 50 mmHg | [facility] | | | | | | LABORATORY | | | | | | SERVICES, | | | | | | CORE | | + +--------+ + + + | PO2 VENOUS | 58 (H) | 30 - 55 mmHg | [facility] | | | | | | LABORATORY | | | | | | SERVICES, | | | | | | CORE | | + +--------+ + + + | HCO3 VENOUS | 27 | 22 - 28 mmol/L | [facility] | | | | | | LABORATORY | | | | | | SERVICES, | | | | | | CORE | | + +--------+ + + + | BASE EXCESS | 2.9 | -3.0 - 3.0 | [facility] | | | VENOUS | | mmol/L | LABORATORY | | | | | | SERVICES, | | | | | | CORE | | + +--------+ + + + | O2 SAT, | 91.4 | No range has | [facility] | | | VENOUS | | been | LABORATORY | | | | | established % | SERVICES, | | | | | | CORE | | + +--------+ + + + | TOTAL CO2 | 29 | 23 - 29 mmol/L | [facility] | | | VENOUS | | | LABORATORY | | | | | | SERVICES, | | | | | | CORE | | + +--------+ + + + + + | Specimen | + + | Blood | + + + + + + + | Performing | Address | City/State/Zipcode | Phone Number | | Organization | | | | + + + + + | [facility] | [address] | [place] [address] | | | SERVICES, CORE | [address] | | | + + + + + MAGNESIUM, PLASMA (02/22/2018 5:44 AM PDT) + +-------+ + + + | Component | Value | Ref Range | Performed | Pathologist | | | | | At | Signature | + +-------+ + + + | MAGNESIUM,P | 2.4 | 1.6 - 2.6 mg/dL | [facility] | | | LASMA | | | LABORATORY | | | | | | SERVICES, | | | | | | CORE | | + +-------+ + + + + + | Specimen | + + | Blood | + + + + + | Narrative | Performed At | + + + | Reference range change effective 06/26/17. | [facility] | | | LABORATORY | | | SERVICES, CORE | + + + + + + + + | Performing | Address | City/State/Zipcode | Phone Number | | Organization | | | | + + + + + | [facility] | [address] | [place] [address] | | | SERVICES, CORE | [address] | | | + + + + + RENAL FUNCTION SET (NA,K,CL,CO2,BUN,CREAT,GLUC,CA,PHOS,ALB ) (02/22/2018 5:44 AM PDT) + + + + + + | Component | Value | Ref Range | Performed | Pathologist | | | | | At | Signature | + + + + + + | GLUCOSE, | 163 (H) | 70 - 99 mg/dL | [facility] | | | PLASMA | | | LABORATORY | | | (LAB) | | | [place], | | | | | | CORE | | + + + + + + | BUN, PLASMA | 45 (H) | 6 - 20 mg/dL | [facility] | | | (LAB) | | | LABORATORY | | | | | | SERVICES, | | | | | | CORE | | + + + + + + | CREATININE | 0.89 | 0.60 - 1.10 | [facility] | | | PLASMA | | mg/dL | LABORATORY | | | (LAB) | | | SERVICES, | | | | | | CORE | | + + + + + + | EGFR | >60 | >60 mL/min | [facility] | | | - | | | LABORATORY | | | [place] | | | SERVICES, | | | | | | CORE | | + + + + + + | EGFR NON | >60 | >60 mL/min | [facility] | | | -JOSEPH | | | LABORATORY | | | [facility] | | | SERVICES, | | | | | | CORE | | + + + + + + | SODIUM, | 148 (H) | 136 - 145 | [facility] | | | PLASMA | | mmol/L | LABORATORY | | | (LAB) | | | SERVICES, | | | | | | CORE | | + + + + + + | POTASSIUM, | 3.8 | 3.4 - 5.0 | [facility] | | | PLASMA | | mmol/L | LABORATORY | | | (LAB) | | | SERVICES, | | | | | | CORE | | + + + + + + | CHLORIDE, | 115 (H) | 97 - 108 mmol/L | [facility] | | | PLASMA | | | LABORATORY | | | (LAB) | | | SERVICES, | | | | | | CORE | | + + + + + + | TOTAL CO2, | 25 | 21 - 32 mmol/L | [facility] | | | PLASMA | | | LABORATORY | | | (LAB) | | | SERVICES, | | | | | | CORE | | + + + + + + | CALCIUM, | 9.6 | 8.6 - 10.2 | [facility] | | | PLASMA | | mg/dL | LABORATORY | | | (LAB) | | | SERVICES, | | | | | | CORE | | + + + + + + | CALCIUM(ALB | 10.6 (H) | 8.6 - 10.2 | [facility] | | | CORRECTED) | | mg/dL | LABORATORY | | | | | | SERVICES, | | | | | | CORE | | + + + + + + | ALBUMIN, | 2.7 (L) | 3.5 - 4.7 g/dL | [facility] | | | PLASMA | | | LABORATORY | | | (LAB) | | | SERVICES, | | | | | | CORE | | + + + + + + | PHOSPHORUS, | 2.4 | 2.4 - 4.7 mg/dL | [facility] | | | PLASMA | | | LABORATORY | | | (LAB) | | | SERVICES, | | | | | | CORE | | + + + + + + | POTASSIUM | No Hemo | | [facility] | | | CMNT | | | LABORATORY | | | | | | SERVICES, | | | | | | CORE | | + + + + + + | ANION GAP | 8 | 4 - 11 mmol/L | [facility] | | | | | | LABORATORY | | | | | | SERVICES, | | | | | | CORE | | + + + + + + | ANION | 11 | 4 - 11 mmol/L | [facility] | | | GAP(ALB | | | LABORATORY | | | CORRECTED) | | | SERVICES, | | | | | | CORE | | + + + + + + + + | Specimen | + + | Blood | + + + + + | Narrative | Performed At | + + + | Adult glucose reference range change effective 7-12-17. GFR is | [facility] | | estimated using the MDRD equation recommended by the National Kidney | LABORATORY | | Disease Education Program. Estimated GFR Interpretive Information: | SERVICES, CORE | | <60 mL/min/1.73 sq m Chronic Kidney | | | Disease <15 mL/min/1.73 sq m Kidney | | | Failure Estimated GFR greater that 60 mL/min/1.73 sq m is of limited | | | clinical value. The MDRD equation is not valid in the following | | | situations: - Patients under 18 years of age - Severe malnutrition | | | or obesity - Vegetarian diet - Rapidly changing kidney function | | + + + + + + + + | Performing | Address | City/State/Zipcode | Phone Number | | Organization | | | | + + + + + | [facility] | [address] [facility] | [place] [address] | | | SERVICES, CORE | [address] | | | + + + + + CAPILLARY BLOOD GLUCOSE (NO CHG), POC (02/22/2018 4:30 AM PDT) + +---------+ + + + | Component | Value | Ref Range | Performed | Pathologist | | | | | At | Signature | + +---------+ + + + | BLOOD | 151 (H) | 70 - 99 mg/dL | [facility] | | | GLUCOSE, | | | [facility] | | | POC | | | [facility] | | | | | | OF CARE | | | | | | TESTS | | + +---------+ + + + + + | Specimen | + + | | + + + + + + + | Performing | Address | City/State/Zipcode | Phone Number | | Organization | | | | + + + + + | [facility] | [address] | [place], [place] | | | [facility] | [address] | [address] | | | TESTS | | | | + + + + + CAPILLARY BLOOD GLUCOSE (NO CHG), POC (02/22/2018 3:29 AM PDT) + +---------+ + + + | Component | Value | Ref Range | Performed | Pathologist | | | | | At | Signature | + +---------+ + + + | BLOOD | 136 (H) | 70 - 99 mg/dL | [facility] | | | GLUCOSE, | | | [facility] | | | POC | | | [facility] | | | | | | OF CARE | | | | | | TESTS | | + +---------+ + + + + + | Specimen | + + | | + + + + + + + | Performing | Address | City/State/Zipcode | Phone Number | | Organization | | | | + + + + + | [facility] | [address] | [place], [place] | | | [facility] | [address] | [address] | | | TESTS | | | | + + + + + CAPILLARY BLOOD GLUCOSE (NO CHG), POC (02/22/2018 2:31 AM PDT) + +---------+ + + + | Component | Value | Ref Range | Performed | Pathologist | | | | | At | Signature | + +---------+ + + + | BLOOD | 142 (H) | 70 - 99 mg/dL | [facility] | | | GLUCOSE, | | | [facility] | | | POC | | | [facility] | | | | | | OF CARE | | | | | | TESTS | | + +---------+ + + + + + | Specimen | + + | | + + + + + + + | Performing | Address | City/State/Zipcode | Phone Number | | Organization | | | | + + + + + | [facility] | [address] | [place], [place] | | | [facility] | [address] | [phone] | | | TESTS | | | | + + + + + CAPILLARY BLOOD GLUCOSE (NO CHG), POC (02/22/2018 1:27 AM PDT) + +---------+ + + + | Component | Value | Ref Range | Performed | Pathologist | | | | | At | Signature | + +---------+ + + + | BLOOD | 146 (H) | 70 - 99 mg/dL | [facility] | | | GLUCOSE, | | | [place] | | | POC | | | [facility] | | | | | | OF CARE | | | | | | TESTS | | + +---------+ + + + + + | Specimen | + + | | + + + + + + + | Performing | Address | City/State/Zipcode | Phone Number | | Organization | | | | + + + + + | [facility] | [address] | [place], [place] | | | [facility] | [address] | [address] | | | TESTS | | | | + + + + + CAPILLARY BLOOD GLUCOSE (NO CHG), POC (02/22/2018 12:32 AM PDT) + +---------+ + + + | Component | Value | Ref Range | Performed | Pathologist | | | | | At | Signature | + +---------+ + + + | BLOOD | 149 (H) | 70 - 99 mg/dL | [facility] | | | GLUCOSE, | | | [facility] | | | POC | | | [facility] | | | | | | OF CARE | | | | | | TESTS | | + +---------+ + + + + + | Specimen | + + | | + + + + + + + | Performing | Address | City/State/Zipcode | Phone Number | | Organization | | | | + + + + + | [facility] | [address] | [place], [place] | | | [facility] | [address] | [address] | | | TESTS | | | | + + + + + CAPILLARY BLOOD GLUCOSE (NO CHG), POC (02/21/2018 11:26 PM PDT) + +---------+ + + + | Component | Value | Ref Range | Performed | Pathologist | | | | | At | Signature | + +---------+ + + + | BLOOD | 138 (H) | 70 - 99 mg/dL | [facility] | | | GLUCOSE, | | | [facility] | | | POC | | | [facility] | | | | | | OF CARE | | | | | | TESTS | | + +---------+ + + + + + | Specimen | + + | | + + + + + + + | Performing | Address | City/State/Zipcode | Phone Number | | Organization | | | | + + + + + | [facility] | [address] | [place], [place] | | | [facility] | [address] | [address] | | | TESTS | | | | + + + + + CAPILLARY BLOOD GLUCOSE (NO CHG), POC (02/21/2018 10:28 PM PDT) + +---------+ + + + | Component | Value | Ref Range | Performed | Pathologist | | | | | At | Signature | + +---------+ + + + | BLOOD | 152 (H) | 70 - 99 mg/dL | [facility] | | | GLUCOSE, | | | [facility] | | | POC | | | [facility] | | | | | | OF CARE | | | | | | TESTS | | + +---------+ + + + + + | Specimen | + + | | + + + + + + + | Performing | Address | City/State/Zipcode | Phone Number | | Organization | | | | + + + + + | [facility] | [address] | [place], [place] | | | [facility] | [address] | [address] | | | TESTS | | | | + + + + + X-RAY CHEST 1 VIEW (02/21/2018 10:01 PM PDT) + + | Specimen | + + | | + + + + + | Narrative | Performed At | + + + | EXAM: CHEST 1 VIEW HISTORY: Leukocytosis. Encephalopathy | [facility] | | COMPARISON: 02/15/18 and 02/08/18 FINDINGS: The endotracheal and | RADIOLOGY VOICE | | enteric tubes have been removed. The cardiomediastinal silhouette is | RECOGNITION | | no longer obscured and stable compared to 02/08/18. The left | | | greater than right opacities have resolved. No new consolidation. | | | Minimal residual left lower lobe atelectasis. No pulmonary edema, | | | pleural effusion or pneumothorax. Bones are intact. IMPRESSION: | | | Overall improved aeration with resolution of bilateral opacities. | | | Minimal residual left lower lobe atelectasis. I have personally | | | reviewed the images and, if necessary, edited the report. I agree | | | with the report as now presented. | | + + + + + | Procedure Note | + + | Service Account, Radiant Res In Interface - 02/22/2018 10:09 AM PDT EXAM: CHEST 1 | | VIEW HISTORY: Leukocytosis. EncephalopathyCOMPARISON: 02/15/18 and 02/08/18INDINGS: The | | endotracheal and enteric tubes have been removed. The cardiomediastinal silhouette is no | | longer obscured and stable compared to 02/08/18.The left greater than right opacities | | have resolved. No new consolidation. Minimal residual left lower lobe atelectasis. No | | pulmonary edema, pleural effusion or pneumothorax. Bones are intact.IMPRESSION: Overall | | improved aeration with resolution of bilateral opacities. Minimal residual left lower | | lobe atelectasis.I have personally reviewed the images and, if necessary, edited the | | report. I agree with the report as now presented. | | | |The left greater than right opacities have resolved. No new consolidation. Minimal residual left lower lobe atelectasis. No pulmonary edema, pleural effusion or pneumothorax. Bones ar e intact. | | | |IMPRESSION: | | | |Overall improved aeration with resolution of bilateral opacities. Minimal residual left low er lobe atelectasis. | | | | | |I have personally reviewed the images and, if necessary, edited the report. I agree with t he report as now presented. | + + + +---------+ + + | Performing | Address | City/State/Zipcode | Phone Number | | Organization | | | | + +---------+ + + | [facility] | | | | | VOICE RECOGNITION | | | | + +---------+ + + CAPILLARY BLOOD GLUCOSE (NO CHG), POC (02/21/2018 9:29 PM PDT) + +---------+ + + + | Component | Value | Ref Range | Performed | Pathologist | | | | | At | Signature | + +---------+ + + + | BLOOD | 149 (H) | 70 - 99 mg/dL | [facility] - | | | GLUCOSE, | | | [place] | | | POC | | | [facility] | | | | | | OF CARE | | | | | | TESTS | | + +---------+ + + + + + | Specimen | + + | | + + + + + + + | Performing | Address | City/State/Zipcode | Phone Number | | Organization | | | | + + + + + | [facility] | [address] | [place], [place] | | | [facility] | [address] | [address] | | | TESTS | | | | + + + + + URINE CULTURE WORKUP (02/21/2018 9:18 PM PDT) + + + + + + | Component | Value | Ref Range | Performed | Pathologist | | | | | At | Signature | + + + + + + | ORGANISM | Claudia albicans (A) | | [facility] | | | | | | [facility] | | | | | | [place] | | + + + + + + + + | Specimen | + + | Urine - Catheter - | | straight | + + + + + | Narrative | Performed At | + + + | Culture Report: 3,000 cfu/ml Claudia albicans | [facility] - | | | [facility] - | | | [place] | + + + + + + + + | Performing | Address | City/State/Zipcode | Phone Number | | Organization | | | | + + + + + | [facility] | [address] | [place] [address] | | | [place] | | | | + + + + + CULTURE, URINE PATRICIA (02/21/2018 9:18 PM PDT) + + + + + + | Component | Value | Ref Range | Performed | Pathologist | | | | | At | Signature | + + + + + + | URINE | See Cx Results (A) | | [facility] | | | CULTURE | | | LABORATORY | | | [facility] | | | SERVICES, | | | | | | CORE | | + + + + + + + + | Specimen | + + | Urine - Catheter - | | straight | + + + + + + + | Performing | Address | City/State/Zipcode | Phone Number | | Organization | | | | + + + + + | [facility] | [address] | [place] [address] | | | SERVICES, CORE | [address] | | | + + + + + URINE, MICROSCOPIC EXAM (02/21/2018 9:18 PM PDT) + +---------+ + + + | Component | Value | Ref Range | Performed | Pathologist | | | | | At | Signature | + +---------+ + + + | RED CELLS | 3 | 0 - 3 /hpf | [facility] | | | | | | LABORATORY | | | | | | SERVICES, | | | | | | CORE | | + +---------+ + + + | WHITE CELLS | 29 (H) | 0 - 5 /hpf | [facility] | | | | | | LABORATORY | | | | | | SERVICES, | | | | | | CORE | | + +---------+ + + + | BACTERIA | None | None /hpf | [facility] | | | | | | LABORATORY | | | | | | SERVICES, | | | | | | CORE | | + +---------+ + + + | YEAST (LAB) | None | None /hpf | [facility] | | | | | | LABORATORY | | | | | | SERVICES, | | | | | | CORE | | + +---------+ + + + | SQUAMOUS | Few (A) | None /hpf | [facility] | | | EPITHELIAL | | | LABORATORY | | | | | | SERVICES, | | | | | | CORE | | + +---------+ + + + | MUCOUS | Few (A) | None /hpf | [facility] | | | | | | LABORATORY | | | | | | SERVICES, | | | | | | CORE | | + +---------+ + + + | TRICHOMONAS | None | None /hpf | [facility] | | | | | | LABORATORY | | | | | | SERVICES, | | | | | | CORE | | + +---------+ + + + | NON-SQUAMOU | None | None /hpf | [facility] | | | S EPITH | | | LABORATORY | | | | | | SERVICES, | | | | | | CORE | | + +---------+ + + + | HYALINE | 0 | 0 - 2 /lpf | [facility] | | | CASTS | | | LABORATORY | | | | | | SERVICES, | | | | | | CORE | | + +---------+ + + + | GRANULAR | 0 | 0 - 2 /lpf | [facility] | | | CASTS | | | LABORATORY | | | | | | SERVICES, | | | | | | CORE | | + +---------+ + + + | CELLULAR | 0 | <=0 /lpf | [facility] | | | CASTS | | | LABORATORY | | | | | | SERVICES, | | | | | | CORE | | + +---------+ + + + | TRIPLE P04 | None | None /hpf | [facility] | | | [facility] | | | LABORATORY | | | | | | SERVICES, | | | | | | CORE | | + +---------+ + + + | CALCIUM | None | None /hpf | [facility] | | | OXALATE | | | LABORATORY | | | SEKOU | | | SERVICES, | | | | | | CORE | | + +---------+ + + + | URIC ACID | None | None /hpf | [facility] | | | [facility] | | | LABORATORY | | | | | | SERVICES, | | | | | | CORE | | + +---------+ + + + | AMORPHOUS | None | None /hpf | [facility] | | | [facility] | | | LABORATORY | | | | | | SERVICES, | | | | | | CORE | | + +---------+ + + + + + | Specimen | + + | Urine - Catheter - | | straight | + + + + + + + | Performing | Address | City/State/Zipcode | Phone Number | | Organization | | | | + + + + + | [facility] | [address] | [place] [address] | | | SERVICES, CORE | [address] | | | + + + + + URINE SCREEN FOR CULTURE (02/21/2018 9:18 PM PDT) + + + + + + | Component | Value | Ref Range | Performed | Pathologist | | | | | At | Signature | + + + + + + | URINE | Positive (A) | Negative | [facility] | | | SCREEN FOR | | | LABORATORY | | | CULTURE | | | SERVICES, | | | | | | CORE | | + + + + + + + + | Specimen | + + | Urine - Catheter - | | straight | + + + + + | Narrative | Performed At | + + + | Culture Screen Positive, specimen sent for culture. | [facility] | | | LABORATORY | | | SERVICES, CORE | + + + + + + + + | Performing | Address | City/State/Zipcode | Phone Number | | Organization | | | | + + + + + | [facility] | [address] | [place] [address] | | | SERVICES, CORE | [address] | | | + + + + + CAPILLARY BLOOD GLUCOSE (NO CHG), POC (02/21/2018 8:30 PM PDT) + +---------+ + + + | Component | Value | Ref Range | Performed | Pathologist | | | | | At | Signature | + +---------+ + + + | BLOOD | 153 (H) | 70 - 99 mg/dL | [facility] | | | GLUCOSE, | | | [facility] | | | POC | | | [facility] | | | | | | OF CARE | | | | | | TESTS | | + +---------+ + + + + + | Specimen | + + | | + + + + + + + | Performing | Address | City/State/Zipcode | Phone Number | | Organization | | | | + + + + + | [facility] | [address] | [place], [place] | | | [facility] | [address] | [phone] | | | TESTS | | | | + + + + + CAPILLARY BLOOD GLUCOSE (NO CHG), POC (02/21/2018 7:29 PM PDT) + +---------+ + + + | Component | Value | Ref Range | Performed | Pathologist | | | | | At | Signature | + +---------+ + + + | BLOOD | 138 (H) | 70 - 99 mg/dL | [facility] | | | GLUCOSE, | | | [facility] | | | POC | | | [facility] | | | | | | OF CARE | | | | | | TESTS | | + +---------+ + + + + + | Specimen | + + | | + + + + + + + | Performing | Address | City/State/Zipcode | Phone Number | | Organization | | | | + + + + + | [facility] | [address] | [place], [place] | | | [facility] | [address] | [address] | | | TESTS | | | | + + + + + CAPILLARY BLOOD GLUCOSE (NO CHG), POC (02/21/2018 6:22 PM PDT) + +---------+ + + + | Component | Value | Ref Range | Performed | Pathologist | | | | | At | Signature | + +---------+ + + + | BLOOD | 160 (H) | 70 - 99 mg/dL | [facility] | | | GLUCOSE, | | | [facility] | | | POC | | | [facility] | | | | | | OF CARE | | | | | | TESTS | | + +---------+ + + + + + | Specimen | + + | | + + + + + + + | Performing | Address | City/State/Zipcode | Phone Number | | Organization | | | | + + + + + | [facility] | [address] | [place], [place] | | | [facility] | [address] | [address] | | | TESTS | | | | + + + + + CAPILLARY BLOOD GLUCOSE (NO CHG), POC (02/21/2018 5:09 PM PDT) + +---------+ + + + | Component | Value | Ref Range | Performed | Pathologist | | | | | At | Signature | + +---------+ + + + | BLOOD | 159 (H) | 70 - 99 mg/dL | [facility] | | | GLUCOSE, | | | [facility] | | | POC | | | [facility] | | | | | | OF CARE | | | | | | TESTS | | + +---------+ + + + + + | Specimen | + + | | + + + + + + + | Performing | Address | City/State/Zipcode | Phone Number | | Organization | | | | + + + + + | [facility] | [address] | [place], [place] | | | [facility] | [address] | [address] | | | TESTS | | | | + + + + + CAPILLARY BLOOD GLUCOSE (NO CHG), POC (02/21/2018 3:59 PM PDT) + +---------+ + + + | Component | Value | Ref Range | Performed | Pathologist | | | | | At | Signature | + +---------+ + + + | BLOOD | 157 (H) | 70 - 99 mg/dL | [facility] | | | GLUCOSE, | | | [facility] | | | POC | | | [facility] | | | | | | OF CARE | | | | | | TESTS | | + +---------+ + + + + + | Specimen | + + | | + + + + + + + | Performing | Address | City/State/Zipcode | Phone Number | | Organization | | | | + + + + + | [facility] | [address] | [place], [place] | | | [facility] | [address] | [phone] | | | TESTS | | | | + + + + + CAPILLARY BLOOD GLUCOSE (NO CHG), POC (02/21/2018 2:51 PM PDT) + +---------+ + + + | Component | Value | Ref Range | Performed | Pathologist | | | | | At | Signature | + +---------+ + + + | BLOOD | 171 (H) | 70 - 99 mg/dL | [facility] | | | GLUCOSE, | | | [facility] | | | POC | | | [facility] | | | | | | OF CARE | | | | | | TESTS | | + +---------+ + + + + + | Specimen | + + | | + + + + + + + | Performing | Address | City/State/Zipcode | Phone Number | | Organization | | | | + + + + + | [facility] | [address] | [place], [place] | | | [facility] | [facility] | [phone] | | | TESTS | | | | + + + + + CAPILLARY BLOOD GLUCOSE (NO CHG), POC (02/21/2018 1:43 PM PDT) + +---------+ + + + | Component | Value | Ref Range | Performed | Pathologist | | | | | At | Signature | + +---------+ + + + | BLOOD | 170 (H) | 70 - 99 mg/dL | [facility] | | | GLUCOSE, | | | [facility] | | | POC | | | [facility] | | | | | | OF CARE | | | | | | TESTS | | + +---------+ + + + + + | Specimen | + + | | + + + + + + + | Performing | Address | City/State/Zipcode | Phone Number | | Organization | | | | + + + + + | [facility] | [address] | [place], [place] | | | [facility] | [address] | [address] | | | TESTS | | | | + + + + + CAPILLARY BLOOD GLUCOSE (NO CHG), POC (02/21/2018 12:39 PM PDT) + +---------+ + + + | Component | Value | Ref Range | Performed | Pathologist | | | | | At | Signature | + +---------+ + + + | BLOOD | 169 (H) | 70 - 99 mg/dL | [facility] | | | GLUCOSE, | | | [facility] | | | POC | | | [facility] | | | | | | OF CARE | | | | | | TESTS | | + +---------+ + + + + + | Specimen | + + | | + + + + + + + | Performing | Address | City/State/Zipcode | Phone Number | | Organization | | | | + + + + + | [facility] | [address] | [place], [place] | | | [facility] | [address] | [address] | | | TESTS | | | | + + + + + CAPILLARY BLOOD GLUCOSE (NO CHG), POC (02/21/2018 11:31 AM PDT) + +---------+ + + + | Component | Value | Ref Range | Performed | Pathologist | | | | | At | Signature | + +---------+ + + + | BLOOD | 179 (H) | 70 - 99 mg/dL | [facility] | | | GLUCOSE, | | | [facility] | | | POC | | | [facility] | | | | | | OF CARE | | | | | | TESTS | | + +---------+ + + + + + | Specimen | + + | | + + + + + + + | Performing | Address | City/State/Zipcode | Phone Number | | Organization | | | | + + + + + | [facility] | [address] | [place], [place] | | | [facility] | [facility] | [address] | | | TESTS | | | | + + + + + CAPILLARY BLOOD GLUCOSE (NO CHG), POC (02/21/2018 10:16 AM PDT) + +---------+ + + + | Component | Value | Ref Range | Performed | Pathologist | | | | | At | Signature | + +---------+ + + + | BLOOD | 184 (H) | 70 - 99 mg/dL | [facility] - | | | GLUCOSE, | | | [facility] | | | POC | | | [facility] | | | | | | OF CARE | | | | | | TESTS | | + +---------+ + + + + + | Specimen | + + | | + + + + + + + | Performing | Address | City/State/Zipcode | Phone Number | | Organization | | | | + + + + + | [facility] | [address] | [place], [place] | | | [facility] | [address] | [address] | | | TESTS | | | | + + + + + CAPILLARY BLOOD GLUCOSE (NO CHG), POC (02/21/2018 9:08 AM PDT) + +---------+ + + + | Component | Value | Ref Range | Performed | Pathologist | | | | | At | Signature | + +---------+ + + + | BLOOD | 184 (H) | 70 - 99 mg/dL | [facility] | | | GLUCOSE, | | | [facility] | | | POC | | | [facility] | | | | | | OF CARE | | | | | | TESTS | | + +---------+ + + + + + | Specimen | + + | | + + + + + + + | Performing | Address | City/State/Zipcode | Phone Number | | Organization | | | | + + + + + | [facility] | [address] | [place], [place] | | | [facility] | [address] | [address] | | | TESTS | | | | + + + + + CAPILLARY BLOOD GLUCOSE (NO CHG), POC (02/21/2018 7:37 AM PDT) + +---------+ + + + | Component | Value | Ref Range | Performed | Pathologist | | | | | At | Signature | + +---------+ + + + | BLOOD | 188 (H) | 70 - 99 mg/dL | [facility] - | | | GLUCOSE, | | | [facility] | | | POC | | | [facility] | | | | | | OF CARE | | | | | | TESTS | | + +---------+ + + + + + | Specimen | + + | | + + + + + + + | Performing | Address | City/State/Zipcode | Phone Number | | Organization | | | | + + + + + | [facility] | [address] | [place], [place] | | | [facility] | [facility] | [address] | | | TESTS | | | | + + + + + CAPILLARY BLOOD GLUCOSE (NO CHG), POC (02/21/2018 6:28 AM PDT) + +---------+ + + + | Component | Value | Ref Range | Performed | Pathologist | | | | | At | Signature | + +---------+ + + + | BLOOD | 198 (H) | 70 - 99 mg/dL | [facility] - | | | GLUCOSE, | | | [facility] | | | POC | | | [facility] | | | | | | OF CARE | | | | | | TESTS | | + +---------+ + + + + + | Specimen | + + | | + + + + + + + | Performing | Address | City/State/Zipcode | Phone Number | | Organization | | | | + + + + + | [facility] | [address] | [place], [place] | | | [facility] | [address] | [address] | | | TESTS | | | | + + + + + CAPILLARY BLOOD GLUCOSE (NO CHG), POC (02/21/2018 5:22 AM PDT) + +---------+ + + + | Component | Value | Ref Range | Performed | Pathologist | | | | | At | Signature | + +---------+ + + + | BLOOD | 195 (H) | 70 - 99 mg/dL | [facility] - | | | GLUCOSE, | | | [facility] | | | POC | | | [facility] | | | | | | OF CARE | | | | | | TESTS | | + +---------+ + + + + + | Specimen | + + | | + + + + + + + | Performing | Address | City/State/Zipcode | Phone Number | | Organization | | | | + + + + + | [facility] | [address] | [place], [place] | | | [facility] | [address] | [address] | | | TESTS | | | | + + + + + CBC AND AUTO DIFF (02/21/2018 4:30 AM PDT) + + + + + + | Component | Value | Ref Range | Performed | Pathologist | | | | | At | Signature | + + + + + + | WHITE CELL | 20.38 (H) | 3.50 - 10.80 | [facility] | | | COUNT | | K/cu mm | LABORATORY | | | | | | SERVICES, | | | | | | CORE | | + + + + + + | RED CELL | 4.80 | 4.00 - 5.20 | [facility] | | | COUNT | | M/cu mm | LABORATORY | | | | | | SERVICES, | | | | | | CORE | | + + + + + + | HEMOGLOBIN | 13.3 | 12.0 - 16.0 | [facility] | | | | | g/dL | LABORATORY | | | | | | SERVICES, | | | | | | CORE | | + + + + + + | HEMATOCRIT | 43.1 | 36.0 - 46.0 % | [facility] | | | | | | LABORATORY | | | | | | SERVICES, | | | | | | CORE | | + + + + + + | MCV | 89.8 | 80.0 - 96.0 fL | [facility] | | | | | | LABORATORY | | | | | | SERVICES, | | | | | | CORE | | + + + + + + | MCHC | 30.9 | 33.0 - 35.5 | [facility] | | | | | g/dL | LABORATORY | | | | | | SERVICES, | | | | | | CORE | | + + + + + + | RDW SD | 46.5 (H) | 35.1 - 46.3 fL | [facility] | | | | | | LABORATORY | | | | | | SERVICES, | | | | | | CORE | | + + + + + + | PLATELET | 394 | 150 - 400 K/cu | [facility] | | | COUNT | | mm | LABORATORY | | | | | | SERVICES, | | | | | | CORE | | + + + + + + | MPV | 9.5 (L) | 9.7 - 12.3 fL | [facility] | | | | | | LABORATORY | | | | | | SERVICES, | | | | | | CORE | | + + + + + + | NRBC% | 0.0 | 0.0 - 0.3 % | [facility] | | | | | | LABORATORY | | | | | | SERVICES, | | | | | | CORE | | + + + + + + | NRBC# | 0.00 | 0.00 - 0.02 | [facility] | | | | | K/cu mm | LABORATORY | | | | | | SERVICES, | | | | | | CORE | | + + + + + + | NEUTROPHIL | 77.9 (H) | 50.0 - 70.0 % | [facility] | | | % | | | LABORATORY | | | | | | SERVICES, | | | | | | CORE | | + + + + + + | LYMPHOCYTE | 12.2 (L) | 18.0 - 42.0 % | [facility] | | | % | | | LABORATORY | | | | | | SERVICES, | | | | | | CORE | | + + + + + + | MONOCYTE % | 7.3 | 3.5 - 9.0 % | [facility] | | | | | | LABORATORY | | | | | | SERVICES, | | | | | | CORE | | + + + + + + | EOS % | 1.5 | 1.0 - 3.0 % | [facility] | | | | | | LABORATORY | | | | | | SERVICES, | | | | | | CORE | | + + + + + + | BASO % | 0.5 | 0.0 - 2.0 % | [facility] | | | | | | LABORATORY | | | | | | SERVICES, | | | | | | CORE | | + + + + + + | IG% | 0.6Comment: Increased | 0.0 - 1.0 % | [facility] | | | | immature granulocytes | | LABORATORY | | | | (IG) define a left | | SERVICES, | | | | shift. Immature | | CORE | | | | granulocytes (IG) are an | | | | | | automated count of | | | | | | metamyelocytes, | | | | | | myelocytes and | | | | | | promyelocytes. Bands | | | | | | are not included in the | | | | | | IG count. Bands are | | | | | | included in the | | | | | | neutrophil count. | | | | + + + + + + | NEUTROPHIL | 15.87 (H) | 1.80 - 7.70 | [facility] | | | # | | K/cu mm | LABORATORY | | | | | | SERVICES, | | | | | | CORE | | + + + + + + | LYMPHOCYTE | 2.49 | 1.00 - 4.80 | [facility] | | | # | | K/cu mm | LABORATORY | | | | | | SERVICES, | | | | | | CORE | | + + + + + + | MONOCYTE # | 1.49 (H) | 0.10 - 0.90 | [facility] | | | | | K/cu mm | LABORATORY | | | | | | SERVICES, | | | | | | CORE | | + + + + + + | EOS # | 0.31 | 0.00 - 0.50 | [facility] | | | | | K/cu mm | LABORATORY | | | | | | SERVICES, | | | | | | CORE | | + + + + + + | BASO # | 0.10 | 0.00 - 0.10 | [facility] | | | | | K/cu mm | LABORATORY | | | | | | SERVICES, | | | | | | CORE | | + + + + + + | IG# | 0.12 (H) | 0.00 - 0.10 | [facility] | | | | | K/cu mm | LABORATORY | | | | | | SERVICES, | | | | | | CORE | | + + + + + + + + | Specimen | + + | Blood | + + + + + | Narrative | Performed At | + + + | New reference ranges for IG% and IG# effective 12/02/2017. | [facility] | | Increased immature granulocytes (IG) define a left shift. Immature | LABORATORY | | granulocytes (IG) are an automated count of metamyelocytes, myelocytes | SERVICES, CORE | | and promyelocytes. Bands are not included in the IG count. Bands are | | | included in the neutrophil count. | | + + + + + + + + | Performing | Address | City/State/Zipcode | Phone Number | | Organization | | | | + + + + + | [facility] | [address] | [place] [address] | | | SERVICES, CORE | [address] | | | + + + + + MAGNESIUM, PLASMA (02/21/2018 4:30 AM PDT) + +-------+ + + + | Component | Value | Ref Range | Performed | Pathologist | | | | | At | Signature | + +-------+ + + + | MAGNESIUM,P | 2.3 | 1.6 - 2.6 mg/dL | [facility] | | | [facility] | | | LABORATORY | | | | | | SERVICES, | | | | | | CORE | | + +-------+ + + + + + | Specimen | + + | Blood | + + + + + | Narrative | Performed At | + + + | Reference range change effective 06/26/17. | [facility] | | | LABORATORY | | | [facility] | + + + + + + + + | Performing | Address | City/State/Zipcode | Phone Number | | Organization | | | | + + + + + | [facility] | [address] | [place] [address] | | | [facility], [place] | [address] | | | + + + + + RENAL FUNCTION SET (NA,K,CL,CO2,BUN,CREAT,GLUC,CA,PHOS,ALB ) (02/21/2018 4:30 AM PDT) + + + + + + | Component | Value | Ref Range | Performed | Pathologist | | | | | At | Signature | + + + + + + | GLUCOSE, | 177 (H) | 70 - 99 mg/dL | [facility] | | | PLASMA | | | LABORATORY | | | (LAB) | | | SERVICES, | | | | | | CORE | | + + + + + + | BUN, PLASMA | 49 (H) | 6 - 20 mg/dL | [facility] | | | (LAB) | | | LABORATORY | | | | | | SERVICES, | | | | | | CORE | | + + + + + + | CREATININE | 1.09 | 0.60 - 1.10 | [facility] | | | PLASMA | | mg/dL | LABORATORY | | | (LAB) | | | SERVICES, | | | | | | CORE | | + + + + + + | EGFR | >60 | >60 mL/min | [facility] | | | - | | | LABORATORY | | | [place] | | | SERVICES, | | | | | | CORE | | + + + + + + | EGFR NON | 51 (L) | >60 mL/min | [facility] | | | -[facility] | | | LABORATORY | | | [facility] | | | SERVICES, | | | | | | CORE | | + + + + + + | SODIUM, | 145 | 136 - 145 | [facility] | | | PLASMA | | mmol/L | LABORATORY | | | (LAB) | | | SERVICES, | | | | | | CORE | | + + + + + + | POTASSIUM, | 4.2 | 3.4 - 5.0 | [facility] | | | PLASMA | | mmol/L | LABORATORY | | | (LAB) | | | SERVICES, | | | | | | CORE | | + + + + + + | CHLORIDE, | 110 (H) | 97 - 108 mmol/L | [facility] | | | PLASMA | | | LABORATORY | | | (LAB) | | | SERVICES, | | | | | | CORE | | + + + + + + | TOTAL CO2, | 26 | 21 - 32 mmol/L | [facility] | | | PLASMA | | | LABORATORY | | | (LAB) | | | SERVICES, | | | | | | CORE | | + + + + + + | CALCIUM, | 9.6 | 8.6 - 10.2 | [facility] | | | PLASMA | | mg/dL | LABORATORY | | | (LAB) | | | SERVICES, | | | | | | CORE | | + + + + + + | CALCIUM(ALB | 10.6 (H) | 8.6 - 10.2 | [facility] | | | CORRECTED) | | mg/dL | LABORATORY | | | | | | SERVICES, | | | | | | CORE | | + + + + + + | ALBUMIN, | 2.7 (L) | 3.5 - 4.7 g/dL | [facility] | | | PLASMA | | | LABORATORY | | | (LAB) | | | SERVICES, | | | | | | CORE | | + + + + + + | PHOSPHORUS, | 3.0 | 2.4 - 4.7 mg/dL | [facility] | | | PLASMA | | | LABORATORY | | | (LAB) | | | SERVICES, | | | | | | CORE | | + + + + + + | POTASSIUM | No Hemo | | [facility] | | | CMNT | | | LABORATORY | | | | | | SERVICES, | | | | | | CORE | | + + + + + + | ANION GAP | 9 | 4 - 11 mmol/L | [facility] | | | | | | LABORATORY | | | | | | SERVICES, | | | | | | CORE | | + + + + + + | ANION | 12 (H) | 4 - 11 mmol/L | [facility] | | | GAP(ALB | | | LABORATORY | | | CORRECTED) | | | SERVICES, | | | | | | CORE | | + + + + + + + + | Specimen | + + | Blood | + + + + + | Narrative | Performed At | + + + | Adult glucose reference range change effective 7-12-17. GFR is | [facility] | | estimated using the MDRD equation recommended by the National Kidney | LABORATORY | | Disease Education Program. Estimated GFR Interpretive Information: | SERVICES, CORE | | <60 mL/min/1.73 sq m Chronic Kidney | | | Disease <15 mL/min/1.73 sq m Kidney | | | Failure Estimated GFR greater that 60 mL/min/1.73 sq m is of limited | | | clinical value. The MDRD equation is not valid in the following | | | situations: - Patients under 18 years of age - Severe malnutrition | | | or obesity - Vegetarian diet - Rapidly changing kidney function | | + + + + + + + + | Performing | Address | City/State/Zipcode | Phone Number | | Organization | | | | + + + + + | [facility] | [address] | [place] [address] | | | SERVICES, CORE | [address] | | | + + + + + BLOOD GASES, VENOUS - LAB (02/21/2018 4:19 AM PDT) + +-------+ + + + | Component | Value | Ref Range | Performed | Pathologist | | | | | At | Signature | + +-------+ + + + | PH VENOUS | 7.38 | 7.35 - 7.45 | [facility] | | | | | | LABORATORY | | | | | | SERVICES, | | | | | | CORE | | + +-------+ + + + | PCO2 VENOUS | 46 | 35 - 50 mmHg | [facility] | | | | | | LABORATORY | | | | | | SERVICES, | | | | | | CORE | | + +-------+ + + + | PO2 VENOUS | 49 | 30 - 55 mmHg | [facility] | | | | | | LABORATORY | | | | | | SERVICES, | | | | | | CORE | | + +-------+ + + + | HCO3 VENOUS | 27 | 22 - 28 mmol/L | [facility] | | | | | | LABORATORY | | | | | | SERVICES, | | | | | | CORE | | + +-------+ + + + | BASE EXCESS | 1.6 | -3.0 - 3.0 | [facility] | | | VENOUS | | mmol/L | LABORATORY | | | | | | SERVICES, | | | | | | CORE | | + +-------+ + + + | O2 SAT, | 85.0 | No range has | [facility] | | | VENOUS | | been | LABORATORY | | | | | established % | SERVICES, | | | | | | CORE | | + +-------+ + + + | TOTAL CO2 | 28 | 23 - 29 mmol/L | [facility] | | | VENOUS | | | LABORATORY | | | | | | SERVICES, | | | | | | CORE | | + +-------+ + + + + + | Specimen | + + | Blood | + + + + + + + | Performing | Address | City/State/Zipcode | Phone Number | | Organization | | | | + + + + + | [facility] | [address] | [place] [address] | | | [facility], [place] | [address] | | | + + + + + CAPILLARY BLOOD GLUCOSE (NO CHG), POC (02/21/2018 4:18 AM PDT) + +---------+ + + + | Component | Value | Ref Range | Performed | Pathologist | | | | | At | Signature | + +---------+ + + + | BLOOD | 146 (H) | 70 - 99 mg/dL | [facility] - | | | GLUCOSE, | | | [facility] | | | POC | | | [facility] | | | | | | OF CARE | | | | | | TESTS | | + +---------+ + + + + + | Specimen | + + | | + + + + + + + | Performing | Address | City/State/Zipcode | Phone Number | | Organization | | | | + + + + + | [facility] | [address] | [place], [place] | | | [facility] | [address] | [phone] | | | TESTS | | | | + + + + + CAPILLARY BLOOD GLUCOSE (NO CHG), POC (02/21/2018 3:04 AM PDT) + +---------+ + + + | Component | Value | Ref Range | Performed | Pathologist | | | | | At | Signature | + +---------+ + + + | BLOOD | 162 (H) | 70 - 99 mg/dL | [facility] - | | | GLUCOSE, | | | [facility] | | | POC | | | [facility] | | | | | | OF CARE | | | | | | TESTS | | + +---------+ + + + + + | Specimen | + + | | + + + + + + + | Performing | Address | City/State/Zipcode | Phone Number | | Organization | | | | + + + + + | [facility] | [address] | [place], [place] | | | [facility] | [address] | [phone] | | | TESTS | | | | + + + + + CAPILLARY BLOOD GLUCOSE (NO CHG), POC (02/21/2018 2:00 AM PDT) + +---------+ + + + | Component | Value | Ref Range | Performed | Pathologist | | | | | At | Signature | + +---------+ + + + | BLOOD | 155 (H) | 70 - 99 mg/dL | [facility] | | | [facility], | | | [facility] | | | POC | | | [facility] | | | | | | [facility] | | | | | | TESTS | | + +---------+ + + + + + | Specimen | + + | | + + + + + + + | Performing | Address | City/State/Zipcode | Phone Number | | Organization | | | | + + + + + | [facility] | [address] | [place], [place] | | | [facility] | [address] | [phone] | | | TESTS | | | | + + + + + CAPILLARY BLOOD GLUCOSE (NO CHG), POC (02/21/2018 1:08 AM PDT) + +---------+ + + + | Component | Value | Ref Range | Performed | Pathologist | | | | | At | Signature | + +---------+ + + + | BLOOD | 166 (H) | 70 - 99 mg/dL | [facility] | | | [facility], | | | [facility] | | | POC | | | [facility] | | | | | | [facility] | | | | | | TESTS | | + +---------+ + + + + + | Specimen | + + | | + + + + + + + | Performing | Address | City/State/Zipcode | Phone Number | | Organization | | | | + + + + + | [facility] | [address] | [place], [place] | | | [facility] | [address] | [address] | | | TESTS | | | | + + + + + CARDIOLOGY (02/21/2018 12:00 AM PDT) + + + | Narrative | Performed At | + + + | | | + + + CAPILLARY BLOOD GLUCOSE (NO CHG), POC (02/20/2018 11:54 PM PDT) + +---------+ + + + | Component | Value | Ref Range | Performed | Pathologist | | | | | At | Signature | + +---------+ + + + | BLOOD | 160 (H) | 70 - 99 mg/dL | [facility] | | | [facility], | | | [facility] | | | POC | | | [facility] | | | | | | [facility] | | | | | | TESTS | | + +---------+ + + + + + | Specimen | + + | | + + + + + + + | Performing | Address | City/State/Zipcode | Phone Number | | Organization | | | | + + + + + | [facility] | [address] | [place], [place] | | | [facility] | [address] | [address] | | | TESTS | | | | + + + + + CAPILLARY BLOOD GLUCOSE (NO CHG), POC (02/20/2018 10:49 PM PDT) + +---------+ + + + | Component | Value | Ref Range | Performed | Pathologist | | | | | At | Signature | + +---------+ + + + | BLOOD | 159 (H) | 70 - 99 mg/dL | [facility] | | | [facility], | | | [facility] | | | POC | | | [facility] | | | | | | [facility] | | | | | | TESTS | | + +---------+ + + + + + | Specimen | + + | | + + + + + + + | Performing | Address | City/State/Zipcode | Phone Number | | Organization | | | | + + + + + | [facility] | [address] | [place], [place] | | | [facility] | [facility] | [phone] | | | TESTS | | | | + + + + + CAPILLARY BLOOD GLUCOSE (NO CHG) POC (02/20/2018 9:45 PM PDT) + +---------+ + + + | Component | Value | Ref Range | Performed | Pathologist | | | | | At | Signature | + +---------+ + + + | BLOOD | 180 (H) | 70 - 99 mg/dL | [facility] | | | [facility], | | | [facility] | | | POC | | | [facility] | | | | | | [facility] | | | | | | TESTS | | + +---------+ + + + + + | Specimen | + + | | + + + + + + + | Performing | Address | City/State/Zipcode | Phone Number | | Organization | | | | + + + + + | [facility] | [address] | [place], [place] | | | [facility] | [facility] | [phone] | | | TESTS | | | | + + + + + CAPILLARY BLOOD GLUCOSE (NO CHG), POC (02/20/2018 8:42 PM PDT) + +---------+ + + + | Component | Value | Ref Range | Performed | Pathologist | | | | | At | Signature | + +---------+ + + + | BLOOD | 168 (H) | 70 - 99 mg/dL | [facility] - | | | GLUCOSE, | | | [facility] | | | POC | | | [facility] | | | | | | [facility] | | | | | | TESTS | | + +---------+ + + + + + | Specimen | + + | | + + + + + + + | Performing | Address | City/State/Zipcode | Phone Number | | Organization | | | | + + + + + | [facility] | [address] | [place], [place] | | | [facility] | [address] | [phone] | | | TESTS | | | | + + + + + CAPILLARY BLOOD GLUCOSE (NO CHG), POC (02/20/2018 7:32 PM PDT) + +---------+ + + + | Component | Value | Ref Range | Performed | Pathologist | | | | | At | Signature | + +---------+ + + + | BLOOD | 165 (H) | 70 - 99 mg/dL | [facility] | | | GLUCOSE, | | | [place] | | | POC | | | [facility] | | | | | | OF CARE | | | | | | TESTS | | + +---------+ + + + + + | Specimen | + + | | + + + + + + + | Performing | Address | City/State/Zipcode | Phone Number | | Organization | | | | + + + + + | [facility] | [address] | [place], [place] | | | [facility] | [facility] | [address] | | | TESTS | | | | + + + + + CAPILLARY BLOOD GLUCOSE (NO CHG) POC (02/20/2018 7:04 PM PDT) + +---------+ + + + | Component | Value | Ref Range | Performed | Pathologist | | | | | At | Signature | + +---------+ + + + | BLOOD | 152 (H) | 70 - 99 mg/dL | [facility] - | | | GLUCOSE, | | | [place] | | | POC | | | [place] | | | | | | OF CARE | | | | | | TESTS | | + +---------+ + + + + + | Specimen | + + | | + + + + + + + | Performing | Address | City/State/Zipcode | Phone Number | | Organization | | | | + + + + + | [facility] | [address] | [place], [place] | | | [facility] | [facility] | [address] | | | TESTS | | | | + + + + + CAPILLARY BLOOD GLUCOSE (NO CHG), POC (02/20/2018 6:12 PM PDT) + +---------+ + + + | Component | Value | Ref Range | Performed | Pathologist | | | | | At | Signature | + +---------+ + + + | BLOOD | 133 (H) | 70 - 99 mg/dL | [facility] - | | | GLUCOSE, | | | [place] | | | POC | | | [facility] | | | | | | OF CARE | | | | | | TESTS | | + +---------+ + + + + + | Specimen | + + | | + + + + + + + | Performing | Address | City/State/Zipcode | Phone Number | | Organization | | | | + + + + + | [facility] | [address] | [place], [place] | | | [facility] | [address] | [address] | | | TESTS | | | | + + + + + BLOOD GASES, VENOUS - LAB (02/20/2018 4:45 PM PDT) + + + + + + | Component | Value | Ref Range | Performed | Pathologist | | | | | At | Signature | + + + + + + | PH VENOUS | 7.34 (L) | 7.35 - 7.45 | [facility] | | | | | | LABORATORY | | | | | | SERVICES, | | | | | | CORE | | + + + + + + | PCO2 VENOUS | 52 (H) | 35 - 50 mmHg | [facility] | | | | | | LABORATORY | | | | | | SERVICES, | | | | | | CORE | | + + + + + + | PO2 VENOUS | 47 | 30 - 55 mmHg | [facility] | | | | | | LABORATORY | | | | | | SERVICES, | | | | | | CORE | | + + + + + + | HCO3 VENOUS | 27 | 22 - 28 mmol/L | [facility] | | | | | | LABORATORY | | | | | | SERVICES, | | | | | | CORE | | + + + + + + | BASE EXCESS | 0.9 | -3.0 - 3.0 | [facility] | | | VENOUS | | mmol/L | LABORATORY | | | | | | SERVICES, | | | | | | CORE | | + + + + + + | O2 SAT, | 78.8 | No range has | [facility] | | | VENOUS | | been | LABORATORY | | | | | established % | SERVICES, | | | | | | CORE | | + + + + + + | TOTAL CO2 | 29 | 23 - 29 mmol/L | [facility] | | | VENOUS | | | LABORATORY | | | | | | SERVICES, | | | | | | CORE | | + + + + + + + + | Specimen | + + | Blood | + + + + + + + | Performing | Address | City/State/Zipcode | Phone Number | | Organization | | | | + + + + + | [facility] | [address] | [place] [address] | | | [facility], [place] | [address] | | | + + + + + CAPILLARY BLOOD GLUCOSE (NO CHG), POC (02/20/2018 4:24 PM PDT) + +---------+ + + + | Component | Value | Ref Range | Performed | Pathologist | | | | | At | Signature | + +---------+ + + + | BLOOD | 162 (H) | 70 - 99 mg/dL | [facility] - | | | GLUCOSE, | | | [place] | | | POC | | | [facility] | | | | | | OF CARE | | | | | | TESTS | | + +---------+ + + + + + | Specimen | + + | | + + + + + + + | Performing | Address | City/State/Zipcode | Phone Number | | Organization | | | | + + + + + | [facility] | [address] | [place], [place] | | | [facility] | [address] | [address] | | | TESTS | | | | + + + + + CAPILLARY BLOOD GLUCOSE (NO CHG), POC (02/20/2018 3:03 PM PDT) + +---------+ + + + | Component | Value | Ref Range | Performed | Pathologist | | | | | At | Signature | + +---------+ + + + | BLOOD | 179 (H) | 70 - 99 mg/dL | [facility] - | | | GLUCOSE, | | | [place] | | | POC | | | [facility] | | | | | | OF CARE | | | | | | TESTS | | + +---------+ + + + + + | Specimen | + + | | + + + + + + + | Performing | Address | City/State/Zipcode | Phone Number | | Organization | | | | + + + + + | [facility] | [address] | [place], [place] | | | [facility] | [address] | [address] | | | TESTS | | | | + + + + + BLOOD GASES, VENOUS - LAB (02/20/2018 2:49 PM PDT) + + + + + + | Component | Value | Ref Range | Performed | Pathologist | | | | | At | Signature | + + + + + + | PH VENOUS | 7.33 (L) | 7.35 - 7.45 | [facility] | | | | | | LABORATORY | | | | | | SERVICES, | | | | | | CORE | | + + + + + + | PCO2 VENOUS | 54 (H) | 35 - 50 mmHg | [facility] | | | | | | LABORATORY | | | | | | SERVICES, | | | | | | CORE | | + + + + + + | PO2 VENOUS | 44 | 30 - 55 mmHg | [facility] | | | | | | LABORATORY | | | | | | SERVICES, | | | | | | CORE | | + + + + + + | HCO3 VENOUS | 27 | 22 - 28 mmol/L | [facility] | | | | | | LABORATORY | | | | | | SERVICES, | | | | | | CORE | | + + + + + + | BASE EXCESS | 1.0 | -3.0 - 3.0 | [facility] | | | VENOUS | | mmol/L | LABORATORY | | | | | | SERVICES, | | | | | | CORE | | + + + + + + | O2 SAT, | 75.6 | No range has | [facility] | | | VENOUS | | been | LABORATORY | | | | | established % | SERVICES, | | | | | | CORE | | + + + + + + | TOTAL CO2 | 29 | 23 - 29 mmol/L | [facility] | | | VENOUS | | | LABORATORY | | | | | | SERVICES, | | | | | | CORE | | + + + + + + + + | Specimen | + + | Blood | + + + + + + + | Performing | Address | City/State/Zipcode | Phone Number | | Organization | | | | + + + + + | [facility] | [address] | [place] [address] | | | SERVICES, CORE | [address] | | | + + + + + CAPILLARY BLOOD GLUCOSE (NO CHG), POC (02/20/2018 1:25 PM PDT) + +---------+ + + + | Component | Value | Ref Range | Performed | Pathologist | | | | | At | Signature | + +---------+ + + + | BLOOD | 153 (H) | 70 - 99 mg/dL | [facility] - | | | GLUCOSE, | | | [place] | | | POC | | | [facility] | | | | | | OF CARE | | | | | | TESTS | | + +---------+ + + + + + | Specimen | + + | | + + + + + + + | Performing | Address | City/State/Zipcode | Phone Number | | Organization | | | | + + + + + | [facility] | [address] | [place], [place] | | | [facility] | [address] | [address] | | | TESTS | | | | + + + + + CAPILLARY BLOOD GLUCOSE (NO CHG), POC (02/20/2018 12:01 PM PDT) + +---------+ + + + | Component | Value | Ref Range | Performed | Pathologist | | | | | At | Signature | + +---------+ + + + | BLOOD | 175 (H) | 70 - 99 mg/dL | [facility] - | | | GLUCOSE, | | | [place] | | | POC | | | [facility] | | | | | | OF CARE | | | | | | TESTS | | + +---------+ + + + + + | Specimen | + + | | + + + + + + + | Performing | Address | City/State/Zipcode | Phone Number | | Organization | | | | + + + + + | [facility] | [address] | [place], [place] | | | [facility] | [address] | [address] | | | TESTS | | | | + + + + + CAPILLARY BLOOD GLUCOSE (NO CHG), POC (02/20/2018 10:53 AM PDT) + +---------+ + + + | Component | Value | Ref Range | Performed | Pathologist | | | | | At | Signature | + +---------+ + + + | BLOOD | 184 (H) | 70 - 99 mg/dL | [facility] - | | | GLUCOSE, | | | [place] | | | POC | | | [facility] | | | | | | OF CARE | | | | | | TESTS | | + +---------+ + + + + + | Specimen | + + | | + + + + + + + | Performing | Address | City/State/Zipcode | Phone Number | | Organization | | | | + + + + + | [facility] | [address] | [place], [place] | | | [facility] | [facility] | [phone] | | | TESTS | | | | + + + + + CAPILLARY BLOOD GLUCOSE (NO CHG), POC (02/20/2018 9:45 AM PDT) + +---------+ + + + | Component | Value | Ref Range | Performed | Pathologist | | | | | At | Signature | + +---------+ + + + | BLOOD | 127 (H) | 70 - 99 mg/dL | [facility] - | | | GLUCOSE, | | | [place] | | | POC | | | [facility] | | | | | | OF CARE | | | | | | TESTS | | + +---------+ + + + + + | Specimen | + + | | + + + + + + + | Performing | Address | City/State/Zipcode | Phone Number | | Organization | | | | + + + + + | [facility] | [address] | [place], [place] | | | [facility] | [address] | [phone] | | | TESTS | | | | + + + + + CAPILLARY BLOOD GLUCOSE (NO CHG), POC (02/20/2018 8:37 AM PDT) + +---------+ + + + | Component | Value | Ref Range | Performed | Pathologist | | | | | At | Signature | + +---------+ + + + | BLOOD | 149 (H) | 70 - 99 mg/dL | [facility] - | | | GLUCOSE, | | | [place] | | | POC | | | [facility] | | | | | | OF CARE | | | | | | TESTS | | + +---------+ + + + + + | Specimen | + + | | + + + + + + + | Performing | Address | City/State/Zipcode | Phone Number | | Organization | | | | + + + + + | [facility] | [address] | [place], [place] | | | [facility] | [address] | [address] | | | TESTS | | | | + + + + + CAPILLARY BLOOD GLUCOSE (NO CHG), POC (02/20/2018 7:13 AM PDT) + +---------+ + + + | Component | Value | Ref Range | Performed | Pathologist | | | | | At | Signature | + +---------+ + + + | BLOOD | 155 (H) | 70 - 99 mg/dL | [facility] - | | | GLUCOSE, | | | [place] | | | POC | | | [facility] | | | | | | OF CARE | | | | | | TESTS | | + +---------+ + + + + + | Specimen | + + | | + + + + + + + | Performing | Address | City/State/Zipcode | Phone Number | | Organization | | | | + + + + + | [facility] | [address] | [place], [place] | | | [facility] | [facility] | [address] | | | TESTS | | | | + + + + + CAPILLARY BLOOD GLUCOSE (NO CHG), POC (02/20/2018 6:09 AM PDT) + +---------+ + + + | Component | Value | Ref Range | Performed | Pathologist | | | | | At | Signature | + +---------+ + + + | BLOOD | 162 (H) | 70 - 99 mg/dL | [facility] - | | | GLUCOSE, | | | [place] | | | POC | | | [facility] | | | | | | OF CARE | | | | | | TESTS | | + +---------+ + + + + + | Specimen | + + | | + + + + + + + | Performing | Address | City/State/Zipcode | Phone Number | | Organization | | | | + + + + + | [facility] | [address] | [place], [place] | | | [facility] | [address] | [address] | | | TESTS | | | | + + + + + CAPILLARY BLOOD GLUCOSE (NO CHG), POC (02/20/2018 5:04 AM PDT) + +---------+ + + + | Component | Value | Ref Range | Performed | Pathologist | | | | | At | Signature | + +---------+ + + + | BLOOD | 148 (H) | 70 - 99 mg/dL | [facility] - | | | GLUCOSE, | | | [place] | | | POC | | | [facility] | | | | | | OF CARE | | | | | | TESTS | | + +---------+ + + + + + | Specimen | + + | | + + + + + + + | Performing | Address | City/State/Zipcode | Phone Number | | Organization | | | | + + + + + | [facility] | [address] | [place], [place] | | | [facility] | [address] | [address] | | | TESTS | | | | + + + + + MAGNESIUM, PLASMA (02/20/2018 5:03 AM PDT) + +-------+ + + + | Component | Value | Ref Range | Performed | Pathologist | | | | | At | Signature | + +-------+ + + + | MAGNESIUM,P | 2.0 | 1.6 - 2.6 mg/dL | [facility] | | | LASMA | | | LABORATORY | | | | | | SERVICES, | | | | | | CORE | | + +-------+ + + + + + | Specimen | + + | Blood | + + + + + | Narrative | Performed At | + + + | Reference range change effective 06/26/17. | [facility] | | | LABORATORY | | | [facility] | + + + + + + + + | Performing | Address | City/State/Zipcode | Phone Number | | Organization | | | | + + + + + | [facility] | [address] | [place] [address] | | | SERVICES, [place] | [address] | | | + + + + + RENAL FUNCTION SET (NA,K,CL,CO2,BUN,CREAT,GLUC,CA,PHOS,ALB ) (02/20/2018 5:03 AM PDT) + +---------+ + + + | Component | Value | Ref Range | Performed | Pathologist | | | | | At | Signature | + +---------+ + + + | GLUCOSE, | 163 (H) | 70 - 99 mg/dL | [facility] | | | PLASMA | | | LABORATORY | | | (LAB) | | | SERVICES, | | | | | | CORE | | + +---------+ + + + | BUN, PLASMA | 49 (H) | 6 - 20 mg/dL | [facility] | | | (LAB) | | | LABORATORY | | | | | | SERVICES, | | | | | | CORE | | + +---------+ + + + | CREATININE | 1.05 | 0.60 - 1.10 | [facility] | | | PLASMA | | mg/dL | LABORATORY | | | (LAB) | | | SERVICES, | | | | | | CORE | | + +---------+ + + + | EGFR | >60 | >60 mL/min | [facility] | | | - | | | LABORATORY | | | [place] | | | SERVICES, | | | | | | CORE | | + +---------+ + + + | EGFR NON | 53 (L) | >60 mL/min | [facility] | | | -[facility]SE[facility] | | | LABORATORY | | | [place] | | | SERVICES, | | | | | | CORE | | + +---------+ + + + | SODIUM, | 142 | 136 - 145 | [facility] | | | PLASMA | | mmol/L | LABORATORY | | | (LAB) | | | SERVICES, | | | | | | CORE | | + +---------+ + + + | POTASSIUM, | 4.0 | 3.4 - 5.0 | [facility] | | | PLASMA | | mmol/L | LABORATORY | | | (LAB) | | | SERVICES, | | | | | | CORE | | + +---------+ + + + | CHLORIDE, | 110 (H) | 97 - 108 mmol/L | [facility] | | | PLASMA | | | LABORATORY | | | (LAB) | | | SERVICES, | | | | | | CORE | | + +---------+ + + + | TOTAL CO2, | 24 | 21 - 32 mmol/L | [facility] | | | PLASMA | | | LABORATORY | | | (LAB) | | | SERVICES, | | | | | | CORE | | + +---------+ + + + | CALCIUM, | 8.9 | 8.6 - 10.2 | [facility] | | | PLASMA | | mg/dL | LABORATORY | | | (LAB) | | | SERVICES, | | | | | | CORE | | + +---------+ + + + | CALCIUM(ALB | 10.2 | 8.6 - 10.2 | [facility] | | | CORRECTED) | | mg/dL | LABORATORY | | | | | | SERVICES, | | | | | | CORE | | + +---------+ + + + | ALBUMIN, | 2.4 (L) | 3.5 - 4.7 g/dL | [facility] | | | PLASMA | | | LABORATORY | | | (LAB) | | | SERVICES, | | | | | | CORE | | + +---------+ + + + | PHOSPHORUS, | 3.2 | 2.4 - 4.7 mg/dL | [facility] | | | PLASMA | | | LABORATORY | | | (LAB) | | | SERVICES, | | | | | | CORE | | + +---------+ + + + | POTASSIUM | No Hemo | | [facility] | | | CMNT | | | LABORATORY | | | | | | SERVICES, | | | | | | CORE | | + +---------+ + + + | ANION GAP | 8 | 4 - 11 mmol/L | [facility] | | | | | | LABORATORY | | | | | | SERVICES, | | | | | | CORE | | + +---------+ + + + | ANION | 12 (H) | 4 - 11 mmol/L | [facility] | | | GAP(ALB | | | LABORATORY | | | CORRECTED) | | | SERVICES, | | | | | | CORE | | + +---------+ + + + + + | Specimen | + + | Blood | + + + + + | Narrative | Performed At | + + + | Adult glucose reference range change effective 712-17. GFR is | [facility] | | estimated using the MDRD equation recommended by the National Kidney | LABORATORY | | Disease Education Program. Estimated GFR Interpretive Information: | SERVICES, CORE | | <60 mL/min/1.73 sq m Chronic Kidney | | | Disease <15 mL/min/1.73 sq m Kidney | | | Failure Estimated GFR greater that 60 mL/min/1.73 sq m is of limited | | | clinical value. The MDRD equation is not valid in the following | | | situations: - Patients under 18 years of age - Severe malnutrition | | | or obesity - Vegetarian diet - Rapidly changing kidney function | | + + + + + + + + | Performing | Address | City/State/Zipcode | Phone Number | | Organization | | | | + + + + + | [facility] | [address] | [place] [address] | | | SERVICES, CORE | [address] | | | + + + + + CBC AND AUTO DIFF (02/20/2018 4:53 AM PDT) + + + + + + | Component | Value | Ref Range | Performed | Pathologist | | | | | At | Signature | + + + + + + | WHITE CELL | 17.96 (H) | 3.50 - 10.80 | [facility] | | | COUNT | | K/cu mm | LABORATORY | | | | | | SERVICES, | | | | | | CORE | | + + + + + + | RED CELL | 4.63 | 4.00 - 5.20 | [facility] | | | COUNT | | M/cu mm | LABORATORY | | | | | | SERVICES, | | | | | | CORE | | + + + + + + | HEMOGLOBIN | 12.9 | 12.0 - 16.0 | [facility] | | | | | g/dL | LABORATORY | | | | | | SERVICES, | | | | | | CORE | | + + + + + + | HEMATOCRIT | 41.6 | 36.0 - 46.0 % | [facility] | | | | | | LABORATORY | | | | | | SERVICES, | | | | | | CORE | | + + + + + + | MCV | 89.8 | 80.0 - 96.0 fL | [facility] | | | | | | LABORATORY | | | | | | SERVICES, | | | | | | CORE | | + + + + + + | MCHC | 31.0 | 33.0 - 35.5 | [facility] | | | | | g/dL | LABORATORY | | | | | | SERVICES, | | | | | | CORE | | + + + + + + | RDW SD | 46.4 (H) | 35.1 - 46.3 fL | [facility] | | | | | | LABORATORY | | | | | | SERVICES, | | | | | | CORE | | + + + + + + | PLATELET | 351 | 150 - 400 K/cu | [facility] | | | COUNT | | mm | LABORATORY | | | | | | SERVICES, | | | | | | CORE | | + + + + + + | MPV | 9.4 (L) | 9.7 - 12.3 fL | [facility] | | | | | | LABORATORY | | | | | | SERVICES, | | | | | | CORE | | + + + + + + | NRBC% | 0.0 | 0.0 - 0.3 % | [facility] | | | | | | LABORATORY | | | | | | SERVICES, | | | | | | CORE | | + + + + + + | NRBC# | 0.00 | 0.00 - 0.02 | [facility] | | | | | K/cu mm | LABORATORY | | | | | | SERVICES, | | | | | | CORE | | + + + + + + | NEUTROPHIL | 78.8 (H) | 50.0 - 70.0 % | [facility] | | | % | | | LABORATORY | | | | | | SERVICES, | | | | | | CORE | | + + + + + + | LYMPHOCYTE | 11.5 (L) | 18.0 - 42.0 % | [facility] | | | % | | | LABORATORY | | | | | | SERVICES, | | | | | | CORE | | + + + + + + | MONOCYTE % | 7.0 | 3.5 - 9.0 % | [facility] | | | | | | LABORATORY | | | | | | SERVICES, | | | | | | CORE | | + + + + + + | EOS % | 1.3 | 1.0 - 3.0 % | [facility] | | | | | | LABORATORY | | | | | | SERVICES, | | | | | | CORE | | + + + + + + | BASO % | 0.6 | 0.0 - 2.0 % | [facility] | | | | | | LABORATORY | | | | | | SERVICES, | | | | | | CORE | | + + + + + + | IG% | 0.8Comment: Increased | 0.0 - 1.0 % | [facility] | | | | immature granulocytes | | LABORATORY | | | | (IG) define a left | | SERVICES, | | | | shift. Immature | | CORE | | | | granulocytes (IG) are an | | | | | | automated count of | | | | | | metamyelocytes, | | | | | | myelocytes and | | | | | | promyelocytes. Bands | | | | | | are not included in the | | | | | | IG count. Bands are | | | | | | included in the | | | | | | neutrophil count. | | | | + + + + + + | NEUTROPHIL | 14.15 (H) | 1.80 - 7.70 | [facility] | | | # | | K/cu mm | LABORATORY | | | | | | SERVICES, | | | | | | CORE | | + + + + + + | LYMPHOCYTE | 2.07 | 1.00 - 4.80 | [facility] | | | # | | K/cu mm | LABORATORY | | | | | | SERVICES, | | | | | | CORE | | + + + + + + | MONOCYTE # | 1.26 (H) | 0.10 - 0.90 | [facility] | | | | | K/cu mm | LABORATORY | | | | | | SERVICES, | | | | | | CORE | | + + + + + + | EOS # | 0.23 | 0.00 - 0.50 | [facility] | | | | | K/cu mm | LABORATORY | | | | | | SERVICES, | | | | | | CORE | | + + + + + + | BASO # | 0.11 (H) | 0.00 - 0.10 | [facility] | | | | | K/cu mm | LABORATORY | | | | | | SERVICES, | | | | | | CORE | | + + + + + + | IG# | 0.14 (H) | 0.00 - 0.10 | [facility] | | | | | K/cu mm | LABORATORY | | | | | | SERVICES, | | | | | | CORE | | + + + + + + + + | Specimen | + + | Blood | + + + + + | Narrative | Performed At | + + + | New reference ranges for IG% and IG# effective 12/02/2017. | [facility] | | Increased immature granulocytes (IG) define a left shift. Immature | LABORATORY | | granulocytes (IG) are an automated count of metamyelocytes, myelocytes | SERVICES, CORE | | and promyelocytes. Bands are not included in the IG count. Bands are | | | included in the neutrophil count. | | + + + + + + + + | Performing | Address | City/State/Zipcode | Phone Number | | Organization | | | | + + + + + | [facility] | [address] [facility] | [place] [address] | | | [place], CORE | [address] | | | + + + + + CAPILLARY BLOOD GLUCOSE (NO CHG), POC (02/20/2018 4:01 AM PDT) + +---------+ + + + | Component | Value | Ref Range | Performed | Pathologist | | | | | At | Signature | + +---------+ + + + | BLOOD | 163 (H) | 70 - 99 mg/dL | [facility] - | | | GLUCOSE, | | | [facility] | | | POC | | | [facility] | | | | | | OF CARE | | | | | | TESTS | | + +---------+ + + + + + | Specimen | + + | | + + + + + + + | Performing | Address | City/State/Zipcode | Phone Number | | Organization | | | | + + + + + | [facility] | [address] | [place], [place] | | | [facility] | [facility] | [phone] | | | TESTS | | | | + + + + + CAPILLARY BLOOD GLUCOSE (NO CHG), POC (02/20/2018 2:56 AM PDT) + +---------+ + + + | Component | Value | Ref Range | Performed | Pathologist | | | | | At | Signature | + +---------+ + + + | BLOOD | 157 (H) | 70 - 99 mg/dL | [facility] - | | | GLUCOSE, | | | [place] | | | POC | | | [facility] | | | | | | [facility] | | | | | | TESTS | | + +---------+ + + + + + | Specimen | + + | | + + + + + + + | Performing | Address | City/State/Zipcode | Phone Number | | Organization | | | | + + + + + | [facility] | [address] | [place], [place] | | | [facility] | [facility] | [phone] | | | TESTS | | | | + + + + + CAPILLARY BLOOD GLUCOSE (NO CHG), POC (02/20/2018 1:54 AM PDT) + +---------+ + + + | Component | Value | Ref Range | Performed | Pathologist | | | | | At | Signature | + +---------+ + + + | BLOOD | 131 (H) | 70 - 99 mg/dL | [facility] | | | GLUCOSE, | | | [place] | | | POC | | | [facility] | | | | | | [facility]ARE | | | | | | TESTS | | + +---------+ + + + + + | Specimen | + + | | + + + + + + + | Performing | Address | City/State/Zipcode | Phone Number | | Organization | | | | + + + + + | [facility] | [address] | [place], [place] | | | [facility] | [address] | [phone] | | | TESTS | | | | + + + + + CAPILLARY BLOOD GLUCOSE (NO CHG), POC (02/20/2018 12:49 AM PDT) + +---------+ + + + | Component | Value | Ref Range | Performed | Pathologist | | | | | At | Signature | + +---------+ + + + | BLOOD | 158 (H) | 70 - 99 mg/dL | [facility] | | | GLUCO[facility], | | | [place] | | | POC | | | [facility] | | | | | | [facility] | | | | | | TESTS | | + +---------+ + + + + + | Specimen | + + | | + + + + + + + | Performing | Address | City/State/Zipcode | Phone Number | | Organization | | | | + + + + + | [facility] | [address] | [place], [place] | | | [facility] | [facility] | [phone] | | | TESTS | | | | + + + + + CAPILLARY BLOOD GLUCOSE (NO CHG), POC (02/19/2018 11:45 PM PDT) + +---------+ + + + | Component | Value | Ref Range | Performed | Pathologist | | | | | At | Signature | + +---------+ + + + | BLOOD | 139 (H) | 70 - 99 mg/dL | [facility] | | | GLUCO[facility], | | | [place] | | | POC | | | [facility] | | | | | | [facility] | | | | | | TESTS | | + +---------+ + + + + + | Specimen | + + | | + + + + + + + | Performing | Address | City/State/Zipcode | Phone Number | | Organization | | | | + + + + + | [facility] | [address] | [place], [place] | | | [facility] | [facility] | [phone] | | | TESTS | | | | + + + + + CAPILLARY BLOOD GLUCOSE (NO CHG), POC (02/19/2018 10:37 PM PDT) + +---------+ + + + | Component | Value | Ref Range | Performed | Pathologist | | | | | At | Signature | + +---------+ + + + | BLOOD | 190 (H) | 70 - 99 mg/dL | [facility] | | | GLUCO[facility], | | | [facility] | | | POC | | | [facility] | | | | | | [facility] | | | | | | TESTS | | + +---------+ + + + + + | Specimen | + + | | + + + + + + + | Performing | Address | City/State/Zipcode | Phone Number | | Organization | | | | + + + + + | [facility] | [address] | [place], [place] | | | [facility] | [address] | [phone] | | | TESTS | | | | + + + + + CAPILLARY BLOOD GLUCOSE (NO CHG), POC (02/19/2018 9:38 PM PDT) + +---------+ + + + | Component | Value | Ref Range | Performed | Pathologist | | | | | At | Signature | + +---------+ + + + | BLOOD | 166 (H) | 70 - 99 mg/dL | [facility] | | | GLUCOSE, | | | [facility] | | | POC | | | [facility] | | | | | | [facility] | | | | | | TESTS | | + +---------+ + + + + + | Specimen | + + | | + + + + + + + | Performing | Address | City/State/Zipcode | Phone Number | | Organization | | | | + + + + + | [facility] | [address] | [place], [place] | | | [facility] | [facility] | [phone] | | | TESTS | | | | + + + + + CAPILLARY BLOOD GLUCOSE (NO CHG), POC (02/19/2018 8:28 PM PDT) + +---------+ + + + | Component | Value | Ref Range | Performed | Pathologist | | | | | At | Signature | + +---------+ + + + | BLOOD | 164 (H) | 70 - 99 mg/dL | [facility] | | | GLUCOSE, | | | [place] | | | POC | | | [facility] | | | | | | [facility] | | | | | | TESTS | | + +---------+ + + + + + | Specimen | + + | | + + + + + + + | Performing | Address | City/State/Zipcode | Phone Number | | Organization | | | | + + + + + | [facility] | [address] | [place], [place] | | | [facility] | [facility] | [address] | | | TESTS | | | | + + + + + CAPILLARY BLOOD GLUCOSE (NO CHG), POC (02/19/2018 7:12 PM PDT) + +---------+ + + + | Component | Value | Ref Range | Performed | Pathologist | | | | | At | Signature | + +---------+ + + + | BLOOD | 164 (H) | 70 - 99 mg/dL | [facility] | | | GLUCOSE, | | | [facility] | | | POC | | | [facility] | | | | | | OF CARE | | | | | | TESTS | | + +---------+ + + + + + | Specimen | + + | | + + + + + + + | Performing | Address | City/State/Zipcode | Phone Number | | Organization | | | | + + + + + | [facility] | [address] | [place], [place] | | | [facility] | [address] | [address] | | | TESTS | | | | + + + + + CAPILLARY BLOOD GLUCOSE (NO CHG), POC (02/19/2018 6:06 PM PDT) + +---------+ + + + | Component | Value | Ref Range | Performed | Pathologist | | | | | At | Signature | + +---------+ + + + | BLOOD | 181 (H) | 70 - 99 mg/dL | [facility] | | | GLUCOSE, | | | [facility] | | | POC | | | [facility] | | | | | | OF CARE | | | | | | TESTS | | + +---------+ + + + + + | Specimen | + + | | + + + + + + + | Performing | Address | City/State/Zipcode | Phone Number | | Organization | | | | + + + + + | [facility] | [address] | [place], [place] | | | [facility] | [facility] | [address] | | | TESTS | | | | + + + + + CAPILLARY BLOOD GLUCOSE (NO CHG), POC (02/19/2018 5:01 PM PDT) + +---------+ + + + | Component | Value | Ref Range | Performed | Pathologist | | | | | At | Signature | + +---------+ + + + | BLOOD | 178 (H) | 70 - 99 mg/dL | [facility] | | | GLUCOSE, | | | [facility] | | | POC | | | [facility] | | | | | | OF CARE | | | | | | TESTS | | + +---------+ + + + + + | Specimen | + + | | + + + + + + + | Performing | Address | City/State/Zipcode | Phone Number | | Organization | | | | + + + + + | [facility] | [address] | [place], [place] | | | [facility] | [address] | [address] | | | TESTS | | | | + + + + + CAPILLARY BLOOD GLUCOSE (NO CHG), POC (02/19/2018 4:08 PM PDT) + +---------+ + + + | Component | Value | Ref Range | Performed | Pathologist | | | | | At | Signature | + +---------+ + + + | BLOOD | 171 (H) | 70 - 99 mg/dL | [facility] | | | GLUCOSE, | | | [facility] | | | POC | | | [facility] | | | | | | OF CARE | | | | | | TESTS | | + +---------+ + + + + + | Specimen | + + | | + + + + + + + | Performing | Address | City/State/Zipcode | Phone Number | | Organization | | | | + + + + + | [facility] | [address] | [place], [place] | | | [facility] | [address] | [address] | | | TESTS | | | | + + + + + CAPILLARY BLOOD GLUCOSE (NO CHG), POC (02/19/2018 3:17 PM PDT) + +---------+ + + + | Component | Value | Ref Range | Performed | Pathologist | | | | | At | Signature | + +---------+ + + + | BLOOD | 156 (H) | 70 - 99 mg/dL | [facility] | | | GLUCOSE, | | | [facility] | | | POC | | | [facility] | | | | | | OF CARE | | | | | | TESTS | | + +---------+ + + + + + | Specimen | + + | | + + + + + + + | Performing | Address | City/State/Zipcode | Phone Number | | Organization | | | | + + + + + | [facility] | [address] | [place], [place] | | | [facility] | [address] | [address] | | | TESTS | | | | + + + + + CAPILLARY BLOOD GLUCOSE (NO CHG), POC (02/19/2018 2:12 PM PDT) + +---------+ + + + | Component | Value | Ref Range | Performed | Pathologist | | | | | At | Signature | + +---------+ + + + | BLOOD | 158 (H) | 70 - 99 mg/dL | [facility] | | | GLUCOSE, | | | [facility] | | | POC | | | [facility] | | | | | | OF CARE | | | | | | TESTS | | + +---------+ + + + + + | Specimen | + + | | + + + + + + + | Performing | Address | City/State/Zipcode | Phone Number | | Organization | | | | + + + + + | [facility] | [address] | [place], [place] | | | [facility] | [facility] | [address] | | | TESTS | | | | + + + + + CAPILLARY BLOOD GLUCOSE (NO CHG), POC (02/19/2018 1:05 PM PDT) + +---------+ + + + | Component | Value | Ref Range | Performed | Pathologist | | | | | At | Signature | + +---------+ + + + | BLOOD | 162 (H) | 70 - 99 mg/dL | [facility] | | | GLUCOSE, | | | [facility] | | | POC | | | [facility] | | | | | | OF CARE | | | | | | TESTS | | + +---------+ + + + + + | Specimen | + + | | + + + + + + + | Performing | Address | City/State/Zipcode | Phone Number | | Organization | | | | + + + + + | [facility] | [address] | [place], [place] | | | [facility] | [address] | [address] | | | TESTS | | | | + + + + + CAPILLARY BLOOD GLUCOSE (NO CHG), POC (02/19/2018 12:09 PM PDT) + +---------+ + + + | Component | Value | Ref Range | Performed | Pathologist | | | | | At | Signature | + +---------+ + + + | BLOOD | 162 (H) | 70 - 99 mg/dL | [facility] | | | GLUCOSE, | | | [facility] | | | POC | | | [facility] | | | | | | OF CARE | | | | | | TESTS | | + +---------+ + + + + + | Specimen | + + | | + + + + + + + | Performing | Address | City/State/Zipcode | Phone Number | | Organization | | | | + + + + + | [facility] | [address] | [place], [place] | | | [facility] | [address] | [address] | | | TESTS | | | | + + + + + CAPILLARY BLOOD GLUCOSE (NO CHG), POC (02/19/2018 11:07 AM PDT) + +---------+ + + + | Component | Value | Ref Range | Performed | Pathologist | | | | | At | Signature | + +---------+ + + + | BLOOD | 180 (H) | 70 - 99 mg/dL | [facility] | | | GLU[facility]SE, | | | [facility] | | | POC | | | [facility] | | | | | | OF CARE | | | | | | TESTS | | + +---------+ + + + + + | Specimen | + + | | + + + + + + + | Performing | Address | City/State/Zipcode | Phone Number | | Organization | | | | + + + + + | [facility] | [address] | [place], [place] | | | [facility] | [facility] | [phone] | | | TESTS | | | | + + + + + CAPILLARY BLOOD GLUCOSE (NO CHG), POC (02/19/2018 10:02 AM PDT) + +---------+ + + + | Component | Value | Ref Range | Performed | Pathologist | | | | | At | Signature | + +---------+ + + + | BLOOD | 181 (H) | 70 - 99 mg/dL | [facility] | | | GLUCOSE, | | | [facility] | | | POC | | | [facility] | | | | | | OF CARE | | | | | | TESTS | | + +---------+ + + + + + | Specimen | + + | | + + + + + + + | Performing | Address | City/State/Zipcode | Phone Number | | Organization | | | | + + + + + | [facility] | [address] | [place], [place] | | | [facility] | [address] | [address] | | | TESTS | | | | + + + + + CAPILLARY BLOOD GLUCOSE (NO CHG), POC (02/19/2018 8:59 AM PDT) + +---------+ + + + | Component | Value | Ref Range | Performed | Pathologist | | | | | At | Signature | + +---------+ + + + | BLOOD | 164 (H) | 70 - 99 mg/dL | [facility] | | | GLUCOSE, | | | [facility] | | | POC | | | [facility] | | | | | | OF CARE | | | | | | TESTS | | + +---------+ + + + + + | Specimen | + + | | + + + + + + + | Performing | Address | City/State/Zipcode | Phone Number | | Organization | | | | + + + + + | [facility] | [address] | [place], [place] | | | [facility] | [facility] | [address] | | | TESTS | | | | + + + + + CAPILLARY BLOOD GLUCOSE (NO CHG), POC (02/19/2018 7:45 AM PDT) + +---------+ + + + | Component | Value | Ref Range | Performed | Pathologist | | | | | At | Signature | + +---------+ + + + | BLOOD | 125 (H) | 70 - 99 mg/dL | [facility] - | | | GLUCOSE, | | | [facility] | | | POC | | | [facility] | | | | | | OF CARE | | | | | | TESTS | | + +---------+ + + + + + | Specimen | + + | | + + + + + + + | Performing | Address | City/State/Zipcode | Phone Number | | Organization | | | | + + + + + | [facility] | [address] | [place], [place] | | | [facility] | [facility] | [address] | | | TESTS | | | | + + + + + CAPILLARY BLOOD GLUCOSE (NO CHG), POC (02/19/2018 6:41 AM PDT) + +---------+ + + + | Component | Value | Ref Range | Performed | Pathologist | | | | | At | Signature | + +---------+ + + + | BLOOD | 159 (H) | 70 - 99 mg/dL | [facility] | | | GLUCOSE, | | | [facility] | | | POC | | | [facility] | | | | | | OF CARE | | | | | | TESTS | | + +---------+ + + + + + | Specimen | + + | | + + + + + + + | Performing | Address | City/State/Zipcode | Phone Number | | Organization | | | | + + + + + | [facility] | [address] | [place], [place] | | | [facility] | [address] | [address] | | | TESTS | | | | + + + + + CAPILLARY BLOOD GLUCOSE (NO CHG), POC (02/19/2018 5:35 AM PDT) + +---------+ + + + | Component | Value | Ref Range | Performed | Pathologist | | | | | At | Signature | + +---------+ + + + | BLOOD | 148 (H) | 70 - 99 mg/dL | [facility] | | | GLUCOSE, | | | [facility] | | | POC | | | [facility] | | | | | | OF CARE | | | | | | TESTS | | + +---------+ + + + + + | Specimen | + + | | + + + + + + + | Performing | Address | City/State/Zipcode | Phone Number | | Organization | | | | + + + + + | [facility] | [address] | [place], [place] | | | [facility] | [facility] | [address] | | | TESTS | | | | + + + + + CAPILLARY BLOOD GLUCOSE (NO CHG), POC (02/19/2018 4:31 AM PDT) + +---------+ + + + | Component | Value | Ref Range | Performed | Pathologist | | | | | At | Signature | + +---------+ + + + | BLOOD | 168 (H) | 70 - 99 mg/dL | [facility] - | | | GLUCOSE, | | | [facility] | | | POC | | | [facility] | | | | | | OF CARE | | | | | | TESTS | | + +---------+ + + + + + | Specimen | + + | | + + + + + + + | Performing | Address | City/State/Zipcode | Phone Number | | Organization | | | | + + + + + | [facility] | [address] | [place], [place] | | | [facility] | [address] | [address] | | | TESTS | | | | + + + + + CAPILLARY BLOOD GLUCOSE (NO CHG), POC (02/19/2018 3:23 AM PDT) + +---------+ + + + | Component | Value | Ref Range | Performed | Pathologist | | | | | At | Signature | + +---------+ + + + | BLOOD | 166 (H) | 70 - 99 mg/dL | [facility] | | | GLUCOSE, | | | [facility] | | | POC | | | [facility] | | | | | | OF CARE | | | | | | TESTS | | + +---------+ + + + + + | Specimen | + + | | + + + + + + + | Performing | Address | City/State/Zipcode | Phone Number | | Organization | | | | + + + + + | [facility] | [address] | [place], [place] | | | [facility] | [facility] | [address] | | | TESTS | | | | + + + + + MAGNESIUM, PLASMA (02/19/2018 3:17 AM PDT) + +-------+ + + + | Component | Value | Ref Range | Performed | Pathologist | | | | | At | Signature | + +-------+ + + + | MAGNESIUM,P | 2.1 | 1.6 - 2.6 mg/dL | [facility] | | | LASMA | | | LABORATORY | | | | | | SERVICES, | | | | | | CORE | | + +-------+ + + + + + | Specimen | + + | Blood | + + + + + | Narrative | Performed At | + + + | Reference range change effective 06/26/17. | [facility] | | | LABORATORY | | | SERVICES, CORE | + + + + + + + + | Performing | Address | City/State/Zipcode | Phone Number | | Organization | | | | + + + + + | [facility] | [address] [facility] | [place] [address] | | | SERVICES, CORE | [address] | | | + + + + + RENAL FUNCTION SET (NA,K,CL,CO2,BUN,CREAT,GLUC,CA,PHOS,ALB ) (02/19/2018 3:17 AM PDT) + +---------+ + + + | Component | Value | Ref Range | Performed | Pathologist | | | | | At | Signature | + +---------+ + + + | GLUCOSE, | 147 (H) | 70 - 99 mg/dL | [facility] | | | PLASMA | | | LABORATORY | | | (LAB) | | | SERVICES, | | | | | | CORE | | + +---------+ + + + | BUN, PLASMA | 48 (H) | 6 - 20 mg/dL | [facility] | | | (LAB) | | | LABORATORY | | | | | | SERVICES, | | | | | | CORE | | + +---------+ + + + | CREATININE | 1.09 | 0.60 - 1.10 | [facility] | | | PLASMA | | mg/dL | LABORATORY | | | (LAB) | | | SERVICES, | | | | | | CORE | | + +---------+ + + + | EGFR | >60 | >60 mL/min | [facility] | | | - | | | LABORATORY | | | [place] | | | SERVICES, | | | | | | CORE | | + +---------+ + + + | EGFR NON | 51 (L) | >60 mL/min | [facility] | | | -JOSEPH | | | LABORATORY | | | [facility] | | | SERVICES, | | | | | | CORE | | + +---------+ + + + | SODIUM, | 144 | 136 - 145 | [facility] | | | PLASMA | | mmol/L | LABORATORY | | | (LAB) | | | SERVICES, | | | | | | CORE | | + +---------+ + + + | POTASSIUM, | 3.4 | 3.4 - 5.0 | [facility] | | | PLASMA | | mmol/L | LABORATORY | | | (LAB) | | | SERVICES, | | | | | | CORE | | + +---------+ + + + | CHLORIDE, | 111 (H) | 97 - 108 mmol/L | [facility] | | | PLASMA | | | LABORATORY | | | (LAB) | | | SERVICES, | | | | | | CORE | | + +---------+ + + + | TOTAL CO2, | 27 | 21 - 32 mmol/L | [facility] | | | PLASMA | | | LABORATORY | | | (LAB) | | | SERVICES, | | | | | | CORE | | + +---------+ + + + | CALCIUM, | 8.5 (L) | 8.6 - 10.2 | [facility] | | | PLASMA | | mg/dL | LABORATORY | | | (LAB) | | | SERVICES, | | | | | | CORE | | + +---------+ + + + | CALCIUM(ALB | 9.9 | 8.6 - 10.2 | [facility] | | | CORRECTED) | | mg/dL | LABORATORY | | | | | | SERVICES, | | | | | | CORE | | + +---------+ + + + | ALBUMIN, | 2.3 (L) | 3.5 - 4.7 g/dL | [facility] | | | PLASMA | | | LABORATORY | | | (LAB) | | | SERVICES, | | | | | | CORE | | + +---------+ + + + | PHOSPHORUS, | 3.0 | 2.4 - 4.7 mg/dL | [facility] | | | PLASMA | | | LABORATORY | | | (LAB) | | | SERVICES, | | | | | | CORE | | + +---------+ + + + | POTASSIUM | No Hemo | | [facility] | | | CMNT | | | LABORATORY | | | | | | SERVICES, | | | | | | CORE | | + +---------+ + + + | ANION GAP | 6 | 4 - 11 mmol/L | [facility] | | | | | | LABORATORY | | | | | | SERVICES, | | | | | | CORE | | + +---------+ + + + | ANION | 10 | 4 - 11 mmol/L | [facility] | | | GAP(ALB | | | LABORATORY | | | CORRECTED) | | | SERVICES, | | | | | | CORE | | + +---------+ + + + + + | Specimen | + + | Blood | + + + + + | Narrative | Performed At | + + + | Adult glucose reference range change effective 7-12-17. GFR is | [facility] | | estimated using the MDRD equation recommended by the National Kidney | LABORATORY | | Disease Education Program. Estimated GFR Interpretive Information: | SERVICES, CORE | | <60 mL/min/1.73 sq m Chronic Kidney | | | Disease <15 mL/min/1.73 sq m Kidney | | | Failure Estimated GFR greater that 60 mL/min/1.73 sq m is of limited | | | clinical value. The MDRD equation is not valid in the following | | | situations: - Patients under 18 years of age - Severe malnutrition | | | or obesity - Vegetarian diet - Rapidly changing kidney function | | + + + + + + + + | Performing | Address | City/State/Zipcode | Phone Number | | Organization | | | | + + + + + | [facility] | [address] | [place] [address] | | | SERVICES, CORE | [address] | | | + + + + + CAPILLARY BLOOD GLUCOSE (NO CHG), POC (02/19/2018 2:22 AM PDT) + +---------+ + + + | Component | Value | Ref Range | Performed | Pathologist | | | | | At | Signature | + +---------+ + + + | BLOOD | 152 (H) | 70 - 99 mg/dL | [facility] - | | | GLUCOSE, | | | [facility] | | | POC | | | [facility] | | | | | | OF CARE | | | | | | TESTS | | + +---------+ + + + + + | Specimen | + + | | + + + + + + + | Performing | Address | City/State/Zipcode | Phone Number | | Organization | | | | + + + + + | [facility] | [address] | [place], [place] | | | [facility] | [facility] | [address] | | | TESTS | | | | + + + + + CAPILLARY BLOOD GLUCOSE (NO CHG), POC (02/19/2018 1:16 AM PDT) + +---------+ + + + | Component | Value | Ref Range | Performed | Pathologist | | | | | At | Signature | + +---------+ + + + | BLOOD | 120 (H) | 70 - 99 mg/dL | [facility] - | | | GLUCOSE, | | | [facility] | | | POC | | | [facility] | | | | | | OF CARE | | | | | | TESTS | | + +---------+ + + + + + | Specimen | + + | | + + + + + + + | Performing | Address | City/State/Zipcode | Phone Number | | Organization | | | | + + + + + | [facility] | [address] | [place], [place] | | | [facility] | [address] | [address] | | | TESTS | | | | + + + + + CAPILLARY BLOOD GLUCOSE (NO CHG), POC (02/19/2018 12:11 AM PDT) + +---------+ + + + | Component | Value | Ref Range | Performed | Pathologist | | | | | At | Signature | + +---------+ + + + | BLOOD | 153 (H) | 70 - 99 mg/dL | [facility] - | | | GLUCOSE, | | | [facility] | | | POC | | | [facility] | | | | | | OF CARE | | | | | | TESTS | | + +---------+ + + + + + | Specimen | + + | | + + + + + + + | Performing | Address | City/State/Zipcode | Phone Number | | Organization | | | | + + + + + | [facility] | [address] | [place], [place] | | | [facility] | [facility] | [address] | | | TESTS | | | | + + + + + CAPILLARY BLOOD GLUCOSE (NO CHG), POC (02/18/2018 11:08 PM PDT) + +---------+ + + + | Component | Value | Ref Range | Performed | Pathologist | | | | | At | Signature | + +---------+ + + + | BLOOD | 160 (H) | 70 - 99 mg/dL | [facility] - | | | GLUCOSE, | | | [place] | | | POC | | | [facility] | | | | | | OF CARE | | | | | | TESTS | | + +---------+ + + + + + | Specimen | + + | | + + + + + + + | Performing | Address | City/State/Zipcode | Phone Number | | Organization | | | | + + + + + | [facility] | [address] | [place], [place] | | | [facility] | [facility] | [address] | | | TESTS | | | | + + + + + CAPILLARY BLOOD GLUCOSE (NO CHG), POC (02/18/2018 9:08 PM PDT) + +---------+ + + + | Component | Value | Ref Range | Performed | Pathologist | | | | | At | Signature | + +---------+ + + + | BLOOD | 139 (H) | 70 - 99 mg/dL | [facility] - | | | GLUCOSE, | | | [facility] | | | POC | | | [facility] | | | | | | OF CARE | | | | | | TESTS | | + +---------+ + + + + + | Specimen | + + | | + + + + + + + | Performing | Address | City/State/Zipcode | Phone Number | | Organization | | | | + + + + + | [facility] | [address] | [place], [place] | | | [facility] | [address] | [address] | | | TESTS | | | | + + + + + CAPILLARY BLOOD GLUCOSE (NO CHG), POC (02/18/2018 6:55 PM PDT) + +---------+ + + + | Component | Value | Ref Range | Performed | Pathologist | | | | | At | Signature | + +---------+ + + + | BLOOD | 136 (H) | 70 - 99 mg/dL | [facility] - | | | GLUCOSE, | | | [place] | | | POC | | | [facility] | | | | | | OF CARE | | | | | | TESTS | | + +---------+ + + + + + | Specimen | + + | | + + + + + + + | Performing | Address | City/State/Zipcode | Phone Number | | Organization | | | | + + + + + | [facility] | [address] | [place], [place] | | | [facility] | [facility] | [address] | | | TESTS | | | | + + + + + CAPILLARY BLOOD GLUCOSE (NO CHG), POC (02/18/2018 4:59 PM PDT) + +---------+ + + + | Component | Value | Ref Range | Performed | Pathologist | | | | | At | Signature | + +---------+ + + + | BLOOD | 149 (H) | 70 - 99 mg/dL | [facility] - | | | GLUCOSE, | | | [place] | | | POC | | | [facility] | | | | | | OF CARE | | | | | | TESTS | | + +---------+ + + + + + | Specimen | + + | | + + + + + + + | Performing | Address | City/State/Zipcode | Phone Number | | Organization | | | | + + + + + | [facility] | [address] | [place], [place] | | | [facility] | [facility] | [address] | | | TESTS | | | | + + + + + CAPILLARY BLOOD GLUCOSE (NO CHG), POC (02/18/2018 3:57 PM PDT) + +---------+ + + + | Component | Value | Ref Range | Performed | Pathologist | | | | | At | Signature | + +---------+ + + + | BLOOD | 148 (H) | 70 - 99 mg/dL | [facility] - | | | GLUCOSE, | | | [facility] | | | POC | | | [facility] | | | | | | OF CARE | | | | | | TESTS | | + +---------+ + + + + + | Specimen | + + | | + + + + + + + | Performing | Address | City/State/Zipcode | Phone Number | | Organization | | | | + + + + + | [facility] | [address] | [place], [place] | | | [facility] | [address] | [address] | | | TESTS | | | | + + + + + CAPILLARY BLOOD GLUCOSE (NO CHG), POC (02/18/2018 2:51 PM PDT) + +---------+ + + + | Component | Value | Ref Range | Performed | Pathologist | | | | | At | Signature | + +---------+ + + + | BLOOD | 114 (H) | 70 - 99 mg/dL | [facility] - | | | GLUCOSE, | | | [facility] | | | POC | | | [facility] | | | | | | OF CARE | | | | | | TESTS | | + +---------+ + + + + + | Specimen | + + | | + + + + + + + | Performing | Address | City/State/Zipcode | Phone Number | | Organization | | | | + + + + + | [facility] | [address] | [place], [place] | | | [facility] | [facility] | [phone] | | | TESTS | | | | + + + + + CAPILLARY BLOOD GLUCOSE (NO CHG), POC (02/18/2018 1:48 PM PDT) + +---------+ + + + | Component | Value | Ref Range | Performed | Pathologist | | | | | At | Signature | + +---------+ + + + | BLOOD | 146 (H) | 70 - 99 mg/dL | [facility] - | | | GLUCOSE, | | | [place] | | | POC | | | [facility] | | | | | | OF CARE | | | | | | TESTS | | + +---------+ + + + + + | Specimen | + + | | + + + + + + + | Performing | Address | City/State/Zipcode | Phone Number | | Organization | | | | + + + + + | [facility] | [address] | [place], [place] | | | [facility] | [facility] | [phone] | | | TESTS | | | | + + + + + CAPILLARY BLOOD GLUCOSE (NO CHG), POC (02/18/2018 12:41 PM PDT) + +---------+ + + + | Component | Value | Ref Range | Performed | Pathologist | | | | | At | Signature | + +---------+ + + + | BLOOD | 166 (H) | 70 - 99 mg/dL | [facility] - | | | GLUCOSE, | | | [facility] | | | POC | | | [facility] | | | | | | OF CARE | | | | | | TESTS | | + +---------+ + + + + + | Specimen | + + | | + + + + + + + | Performing | Address | City/State/Zipcode | Phone Number | | Organization | | | | + + + + + | [facility] | [address] | [place], [place] | | | [facility] | [address] | [address] | | | TESTS | | | | + + + + + CAPILLARY BLOOD GLUCOSE (NO CHG), POC (02/18/2018 11:32 AM PDT) + +---------+ + + + | Component | Value | Ref Range | Performed | Pathologist | | | | | At | Signature | + +---------+ + + + | BLOOD | 163 (H) | 70 - 99 mg/dL | [facility] | | | GLUCOSE, | | | [facility] | | | POC | | | [facility] | | | | | | OF CARE | | | | | | TESTS | | + +---------+ + + + + + | Specimen | + + | | + + + + + + + | Performing | Address | City/State/Zipcode | Phone Number | | Organization | | | | + + + + + | [facility] | [address] | [place], [place] | | | [facility] | [address] | [address] | | | TESTS | | | | + + + + + CAPILLARY BLOOD GLUCOSE (NO CHG), POC (02/18/2018 10:29 AM PDT) + +---------+ + + + | Component | Value | Ref Range | Performed | Pathologist | | | | | At | Signature | + +---------+ + + + | BLOOD | 153 (H) | 70 - 99 mg/dL | [facility] - | | | GLUCOSE, | | | [place] | | | POC | | | [facility] | | | | | | OF CARE | | | | | | TESTS | | + +---------+ + + + + + | Specimen | + + | | + + + + + + + | Performing | Address | City/State/Zipcode | Phone Number | | Organization | | | | + + + + + | [facility] | [address] | [place], [place] | | | [facility] | [address] | [address] | | | TESTS | | | | + + + + + CAPILLARY BLOOD GLUCOSE (NO CHG), POC (02/18/2018 9:28 AM PDT) + +---------+ + + + | Component | Value | Ref Range | Performed | Pathologist | | | | | At | Signature | + +---------+ + + + | BLOOD | 136 (H) | 70 - 99 mg/dL | [facility] - | | | GLUCOSE, | | | [facility] | | | POC | | | [facility] | | | | | | OF CARE | | | | | | TESTS | | + +---------+ + + + + + | Specimen | + + | | + + + + + + + | Performing | Address | City/State/Zipcode | Phone Number | | Organization | | | | + + + + + | [facility] | [address] | [place], [place] | | | [facility] | [address] | [phone] | | | TESTS | | | | + + + + + CAPILLARY BLOOD GLUCOSE (NO CHG), POC (02/18/2018 9:25 AM PDT) + +-------+ + + + | Component | Value | Ref Range | Performed | Pathologist | | | | | At | Signature | + +-------+ + + + | BLOOD | 80 | 70 - 99 mg/dL | [facility] | | | GLUCOSE, | | | [facility] | | | POC | | | [facility] [facility] | | | | | | OF CARE | | | | | | TESTS | | + +-------+ + + + + + | Specimen | + + | | + + + + + + + | Performing | Address | City/State/Zipcode | Phone Number | | Organization | | | | + + + + + | [facility] | [address] | [place], [place] | | | [facility] | [facility] | [phone] | | | TESTS | | | | + + + + + CAPILLARY BLOOD GLUCOSE (NO CHG), POC (02/18/2018 8:11 AM PDT) + +---------+ + + + | Component | Value | Ref Range | Performed | Pathologist | | | | | At | Signature | + +---------+ + + + | BLOOD | 127 (H) | 70 - 99 mg/dL | [facility] - | | | GLUCOSE, | | | [place] | | | POC | | | [facility] | | | | | | OF CARE | | | | | | TESTS | | + +---------+ + + + + + | Specimen | + + | | + + + + + + + | Performing | Address | City/State/Zipcode | Phone Number | | Organization | | | | + + + + + | [facility] | [address] | [place], [place] | | | [facility] | [address] | [address] | | | TESTS | | | | + + + + + CAPILLARY BLOOD GLUCOSE (NO CHG), POC (02/18/2018 7:06 AM PDT) + +---------+ + + + | Component | Value | Ref Range | Performed | Pathologist | | | | | At | Signature | + +---------+ + + + | BLOOD | 151 (H) | 70 - 99 mg/dL | [facility] | | | GLUCOSE, | | | [place] | | | POC | | | [facility] | | | | | | OF CARE | | | | | | TESTS | | + +---------+ + + + + + | Specimen | + + | | + + + + + + + | Performing | Address | City/State/Zipcode | Phone Number | | Organization | | | | + + + + + | [facility] | [address] | [place], [place] | | | [facility] | [address] | [phone] | | | TESTS | | | | + + + + + CAPILLARY BLOOD GLUCOSE (NO CHG), POC (02/18/2018 6:01 AM PDT) + +---------+ + + + | Component | Value | Ref Range | Performed | Pathologist | | | | | At | Signature | + +---------+ + + + | BLOOD | 170 (H) | 70 - 99 mg/dL | [facility] - | | | GLUCOSE, | | | [place] | | | POC | | | [facility] | | | | | | OF CARE | | | | | | TESTS | | + +---------+ + + + + + | Specimen | + + | | + + + + + + + | Performing | Address | City/State/Zipcode | Phone Number | | Organization | | | | + + + + + | [facility] | [address] | [place], [place] | | | [facility] | [facility] | [phone] | | | TESTS | | | | + + + + + CAPILLARY BLOOD GLUCOSE (NO CHG), POC (02/18/2018 4:53 AM PDT) + +---------+ + + + | Component | Value | Ref Range | Performed | Pathologist | | | | | At | Signature | + +---------+ + + + | BLOOD | 157 (H) | 70 - 99 mg/dL | [facility] - | | | GLUCOSE, | | | [place] | | | POC | | | [facility] | | | | | | OF CARE | | | | | | TESTS | | + +---------+ + + + + + | Specimen | + + | | + + + + + + + | Performing | Address | City/State/Zipcode | Phone Number | | Organization | | | | + + + + + | [facility] | [address] | [place], [place] | | | [facility] | [facility] | [phone] | | | TESTS | | | | + + + + + CBC (HEMOGRAM) ONLY (02/18/2018 3:43 AM PDT) + + + + + + | Component | Value | Ref Range | Performed | Pathologist | | | | | At | Signature | + + + + + + | WHITE CELL | 11.86 (H) | 3.50 - 10.80 | [facility] | | | COUNT | | K/cu mm | LABORATORY | | | | | | SERVICES, | | | | | | CORE | | + + + + + + | RED CELL | 4.56 | 4.00 - 5.20 | [facility] | | | COUNT | | M/cu mm | LABORATORY | | | | | | SERVICES, | | | | | | CORE | | + + + + + + | HEMOGLOBIN | 12.4 | 12.0 - 16.0 | [facility] | | | | | g/dL | LABORATORY | | | | | | SERVICES, | | | | | | CORE | | + + + + + + | HEMATOCRIT | 40.6 | 36.0 - 46.0 % | [facility] | | | | | | LABORATORY | | | | | | SERVICES, | | | | | | CORE | | + + + + + + | MCV | 89.0 | 80.0 - 96.0 fL | [facility] | | | | | | LABORATORY | | | | | | SERVICES, | | | | | | CORE | | + + + + + + | MCHC | 30.5 | 33.0 - 35.5 | [facility] | | | | | g/dL | LABORATORY | | | | | | SERVICES, | | | | | | CORE | | + + + + + + | RDW SD | 47.4 (H) | 35.1 - 46.3 fL | [facility] | | | | | | LABORATORY | | | | | | SERVICES, | | | | | | CORE | | + + + + + + | PLATELET | 314 | 150 - 400 K/cu | [facility] | | | COUNT | | mm | LABORATORY | | | | | | SERVICES, | | | | | | CORE | | + + + + + + | MPV | 9.6 (L) | 9.7 - 12.3 fL | [facility] | | | | | | LABORATORY | | | | | | SERVICES, | | | | | | CORE | | + + + + + + | NRBC% | 0.0 | 0.0 - 0.3 % | [facility] | | | | | | LABORATORY | | | | | | SERVICES, | | | | | | CORE | | + + + + + + | NRBC# | 0.00 | 0.00 - 0.02 | [facility] | | | | | K/cu mm | LABORATORY | | | | | | SERVICES, | | | | | | CORE | | + + + + + + + + | Specimen | + + | Blood | + + + + + + + | Performing | Address | City/State/Zipcode | Phone Number | | Organization | | | | + + + + + | [facility] | [address] | [place] [address] | | | SERVICES, CORE | [address] | | | + + + + + BASIC METABOLIC SET (NA, K, CL, TCO2, BUN, CR, GLU, CA) (02/18/2018 3:43 AM PDT) + + + + + + | Component | Value | Ref Range | Performed | Pathologist | | | | | At | Signature | + + + + + + | GLUCOSE, | 148 (H) | 70 - 99 mg/dL | [facility] | | | PLASMA | | | LABORATORY | | | (LAB) | | | SERVICES, | | | | | | CORE | | + + + + + + | BUN, PLASMA | 53 (H) | 6 - 20 mg/dL | [facility] | | | (LAB) | | | LABORATORY | | | | | | SERVICES, | | | | | | CORE | | + + + + + + | CREATININE | 1.14 (H) | 0.60 - 1.10 | [facility] | | | PLASMA | | mg/dL | LABORATORY | | | (LAB) | | | SERVICES, | | | | | | CORE | | + + + + + + | EGFR | 58 (L) | >60 mL/min | [facility] | | | - | | | LABORATORY | | | [place] | | | SERVICES, | | | | | | CORE | | + + + + + + | EGFR NON | 48 (L) | >60 mL/min | [facility] | | | -[facility] | | | LABORATORY | | | [facility] | | | SERVICES, | | | | | | CORE | | + + + + + + | SODIUM, | 144 | 136 - 145 | [facility] | | | PLASMA | | mmol/L | LABORATORY | | | (LAB) | | | SERVICES, | | | | | | CORE | | + + + + + + | POTASSIUM, | 3.8 | 3.4 - 5.0 | [facility] | | | PLASMA | | mmol/L | LABORATORY | | | (LAB) | | | SERVICES, | | | | | | CORE | | + + + + + + | CHLORIDE, | 111 (H) | 97 - 108 mmol/L | [facility] | | | PLASMA | | | LABORATORY | | | (LAB) | | | SERVICES, | | | | | | CORE | | + + + + + + | TOTAL CO2, | 26 | 21 - 32 mmol/L | [facility] | | | PLASMA | | | LABORATORY | | | (LAB) | | | SERVICES, | | | | | | CORE | | + + + + + + | CALCIUM, | 8.9 | 8.6 - 10.2 | [facility] | | | PLASMA | | mg/dL | LABORATORY | | | (LAB) | | | SERVICES, | | | | | | CORE | | + + + + + + | ANION GAP | 7 | 4 - 11 mmol/L | [facility] | | | | | | LABORATORY | | | | | | SERVICES, | | | | | | CORE | | + + + + + + | POTASSIUM | No Hemo | | [facility] | | | CMNT | | | LABORATORY | | | | | | SERVICES, | | | | | | CORE | | + + + + + + + + | Specimen | + + | Blood | + + + + + | Narrative | Performed At | + + + | Adult glucose reference range change effective 7-12-17. GFR is | [facility] | | estimated using the MDRD equation recommended by the National Kidney | LABORATORY | | Disease Education Program. Estimated GFR Interpretive Information: | SERVICES, CORE | | <60 mL/min/1.73 sq m Chronic Kidney | | | Disease <15 mL/min/1.73 sq m Kidney | | | Failure Estimated GFR greater that 60 mL/min/1.73 sq m is of limited | | | clinical value. The MDRD equation is not valid in the following | | | situations: - Patients under 18 years of age - Severe malnutrition | | | or obesity - Vegetarian diet - Rapidly changing kidney function | | + + + + + + + + | Performing | Address | City/State/Zipcode | Phone Number | | Organization | | | | + + + + + | [facility] | [address] [facility] | [place] [address] | | | SERVICES, CORE | [address] | | | + + + + + CAPILLARY BLOOD GLUCOSE (NO CHG), POC (02/18/2018 3:42 AM PDT) + +---------+ + + + | Component | Value | Ref Range | Performed | Pathologist | | | | | At | Signature | + +---------+ + + + | BLOOD | 149 (H) | 70 - 99 mg/dL | [facility] | | | GLUCOSE, | | | [place] | | | POC | | | [facility] | | | | | | OF CARE | | | | | | TESTS | | + +---------+ + + + + + | Specimen | + + | | + + + + + + + | Performing | Address | City/State/Zipcode | Phone Number | | Organization | | | | + + + + + | [facility] | [address] | [place], [place] | | | [facility] | [facility] | [address] | | | TESTS | | | | + + + + + CAPILLARY BLOOD GLUCOSE (NO CHG), POC (02/18/2018 2:23 AM PDT) + +---------+ + + + | Component | Value | Ref Range | Performed | Pathologist | | | | | At | Signature | + +---------+ + + + | BLOOD | 126 (H) | 70 - 99 mg/dL | [facility] | | | GLUCOSE, | | | [place] | | | POC | | | [facility] | | | | | | OF CARE | | | | | | TESTS | | + +---------+ + + + + + | Specimen | + + | | + + + + + + + | Performing | Address | City/State/Zipcode | Phone Number | | Organization | | | | + + + + + | [facility] | [address] | [place], [place] | | | [facility] | [address] | [address] | | | TESTS | | | | + + + + + CAPILLARY BLOOD GLUCOSE (NO CHG), POC (02/18/2018 1:19 AM PDT) + +---------+ + + + | Component | Value | Ref Range | Performed | Pathologist | | | | | At | Signature | + +---------+ + + + | BLOOD | 136 (H) | 70 - 99 mg/dL | [facility] - | | | GLUCOSE, | | | [place] | | | POC | | | [facility] | | | | | | OF CARE | | | | | | TESTS | | + +---------+ + + + + + | Specimen | + + | | + + + + + + + | Performing | Address | City/State/Zipcode | Phone Number | | Organization | | | | + + + + + | [facility] | [address] | [place], [place] | | | [facility] | [address] | [address] | | | TESTS | | | | + + + + + CAPILLARY BLOOD GLUCOSE (NO CHG), POC (02/18/2018 12:14 AM PDT) + +---------+ + + + | Component | Value | Ref Range | Performed | Pathologist | | | | | At | Signature | + +---------+ + + + | BLOOD | 164 (H) | 70 - 99 mg/dL | [facility] | | | GLUCOSE, | | | [place] | | | POC | | | [facility] | | | | | | OF CARE | | | | | | TESTS | | + +---------+ + + + + + | Specimen | + + | | + + + + + + + | Performing | Address | City/State/Zipcode | Phone Number | | Organization | | | | + + + + + | [facility] | [address] | [place], [place] | | | [facility] | [facility] | [address] | | | TESTS | | | | + + + + + CAPILLARY BLOOD GLUCOSE (NO CHG), POC (02/17/2018 11:07 PM PDT) + +---------+ + + + | Component | Value | Ref Range | Performed | Pathologist | | | | | At | Signature | + +---------+ + + + | BLOOD | 156 (H) | 70 - 99 mg/dL | [facility] - | | | GLUCOSE, | | | [place] | | | POC | | | [facility] | | | | | | OF CARE | | | | | | TESTS | | + +---------+ + + + + + | Specimen | + + | | + + + + + + + | Performing | Address | City/State/Zipcode | Phone Number | | Organization | | | | + + + + + | [facility] | [address] | [place], [place] | | | [facility] | [address] | [address] | | | TESTS | | | | + + + + + CAPILLARY BLOOD GLUCOSE (NO CHG), POC (02/17/2018 10:01 PM PDT) + +---------+ + + + | Component | Value | Ref Range | Performed | Pathologist | | | | | At | Signature | + +---------+ + + + | BLOOD | 146 (H) | 70 - 99 mg/dL | [facility] - | | | GLUCOSE, | | | [place] | | | POC | | | [facility] | | | | | | OF CARE | | | | | | TESTS | | + +---------+ + + + + + | Specimen | + + | | + + + + + + + | Performing | Address | City/State/Zipcode | Phone Number | | Organization | | | | + + + + + | [facility] | [address] | [place], [place] | | | [facility] | [address] | [address] | | | TESTS | | | | + + + + + CAPILLARY BLOOD GLUCOSE (NO CHG), POC (02/17/2018 9:00 PM PDT) + +---------+ + + + | Component | Value | Ref Range | Performed | Pathologist | | | | | At | Signature | + +---------+ + + + | BLOOD | 167 (H) | 70 - 99 mg/dL | [facility] - | | | GLUCOSE, | | | [place] | | | POC | | | [facility] | | | | | | OF CARE | | | | | | TESTS | | + +---------+ + + + + + | Specimen | + + | | + + + + + + + | Performing | Address | City/State/Zipcode | Phone Number | | Organization | | | | + + + + + | [facility] | [address] | [place], [place] | | | [facility] | [facility] | [address] | | | TESTS | | | | + + + + + CAPILLARY BLOOD GLUCOSE (NO CHG), POC (02/17/2018 7:47 PM PDT) + +---------+ + + + | Component | Value | Ref Range | Performed | Pathologist | | | | | At | Signature | + +---------+ + + + | BLOOD | 150 (H) | 70 - 99 mg/dL | [facility] - | | | GLUCOSE, | | | [place] | | | POC | | | [facility] | | | | | | OF CARE | | | | | | TESTS | | + +---------+ + + + + + | Specimen | + + | | + + + + + + + | Performing | Address | City/State/Zipcode | Phone Number | | Organization | | | | + + + + + | [facility] | [address] | [place], [place] | | | [facility] | [address] | [address] | | | TESTS | | | | + + + + + CAPILLARY BLOOD GLUCOSE (NO CHG), POC (02/17/2018 6:41 PM PDT) + +---------+ + + + | Component | Value | Ref Range | Performed | Pathologist | | | | | At | Signature | + +---------+ + + + | BLOOD | 144 (H) | 70 - 99 mg/dL | [facility] | | | GLUCOSE, | | | [place] | | | POC | | | [facility] | | | | | | OF CARE | | | | | | TESTS | | + +---------+ + + + + + | Specimen | + + | | + + + + + + + | Performing | Address | City/State/Zipcode | Phone Number | | Organization | | | | + + + + + | [facility] | [address] | [place], [place] | | | [facility] | [address] | [address] | | | TESTS | | | | + + + + + CAPILLARY BLOOD GLUCOSE (NO CHG), POC (02/17/2018 5:42 PM PDT) + +---------+ + + + | Component | Value | Ref Range | Performed | Pathologist | | | | | At | Signature | + +---------+ + + + | BLOOD | 170 (H) | 70 - 99 mg/dL | [facility] | | | GLUCOSE, | | | [place] | | | POC | | | [facility] | | | | | | OF CARE | | | | | | TESTS | | + +---------+ + + + + + | Specimen | + + | | + + + + + + + | Performing | Address | City/State/Zipcode | Phone Number | | Organization | | | | + + + + + | [facility] | [address] | [place], [place] | | | [facility] | [address] | [address] | | | TESTS | | | | + + + + + CAPILLARY BLOOD GLUCOSE (NO CHG), POC (02/17/2018 4:33 PM PDT) + +---------+ + + + | Component | Value | Ref Range | Performed | Pathologist | | | | | At | Signature | + +---------+ + + + | BLOOD | 166 (H) | 70 - 99 mg/dL | [facility] | | | GLUCOSE, | | | [place] | | | POC | | | [facility] | | | | | | OF CARE | | | | | | TESTS | | + +---------+ + + + + + | Specimen | + + | | + + + + + + + | Performing | Address | City/State/Zipcode | Phone Number | | Organization | | | | + + + + + | [facility] | [address] | [place], [place] | | | [facility] | [address] | [address] | | | TESTS | | | | + + + + + CAPILLARY BLOOD GLUCOSE (NO CHG), POC (02/17/2018 3:21 PM PDT) + +---------+ + + + | Component | Value | Ref Range | Performed | Pathologist | | | | | At | Signature | + +---------+ + + + | BLOOD | 132 (H) | 70 - 99 mg/dL | [facility] | | | GLUCOSE, | | | [place] | | | POC | | | [facility] | | | | | | OF CARE | | | | | | TESTS | | + +---------+ + + + + + | Specimen | + + | | + + + + + + + | Performing | Address | City/State/Zipcode | Phone Number | | Organization | | | | + + + + + | [facility] | [address] | [place], [place] | | | [facility] | [address] | [address] | | | TESTS | | | | + + + + + CAPILLARY BLOOD GLUCOSE (NO CHG), POC (02/17/2018 2:17 PM PDT) + +---------+ + + + | Component | Value | Ref Range | Performed | Pathologist | | | | | At | Signature | + +---------+ + + + | BLOOD | 154 (H) | 70 - 99 mg/dL | [facility] | | | GLUCOSE, | | | [place] | | | POC | | | [facility] | | | | | | OF CARE | | | | | | TESTS | | + +---------+ + + + + + | Specimen | + + | | + + + + + + + | Performing | Address | City/State/Zipcode | Phone Number | | Organization | | | | + + + + + | [facility] | [address] | [place], [place] | | | [facility] | [address] | [address] | | | TESTS | | | | + + + + + CAPILLARY BLOOD GLUCOSE (NO CHG), POC (02/17/2018 1:14 PM PDT) + +---------+ + + + | Component | Value | Ref Range | Performed | Pathologist | | | | | At | Signature | + +---------+ + + + | BLOOD | 167 (H) | 70 - 99 mg/dL | [facility] | | | GLUCOSE, | | | [place] | | | POC | | | [facility] | | | | | | OF CARE | | | | | | TESTS | | + +---------+ + + + + + | Specimen | + + | | + + + + + + + | Performing | Address | City/State/Zipcode | Phone Number | | Organization | | | | + + + + + | [facility] | [address] | [place], [place] | | | [facility] | [address] | [address] | | | TESTS | | | | + + + + + CAPILLARY BLOOD GLUCOSE (NO CHG), POC (02/17/2018 12:13 PM PDT) + +---------+ + + + | Component | Value | Ref Range | Performed | Pathologist | | | | | At | Signature | + +---------+ + + + | BLOOD | 162 (H) | 70 - 99 mg/dL | [facility] - | | | GLUCOSE, | | | [place] | | | POC | | | [facility] | | | | | | OF CARE | | | | | | TESTS | | + +---------+ + + + + + | Specimen | + + | | + + + + + + + | Performing | Address | City/State/Zipcode | Phone Number | | Organization | | | | + + + + + | [facility] | [address] | [place], [place] | | | [facility] | [address] | [address] | | | TESTS | | | | + + + + + CAPILLARY BLOOD GLUCOSE (NO CHG), POC (02/17/2018 11:05 AM PDT) + +---------+ + + + | Component | Value | Ref Range | Performed | Pathologist | | | | | At | Signature | + +---------+ + + + | BLOOD | 184 (H) | 70 - 99 mg/dL | [facility] - | | | GLUCOSE, | | | [place] | | | POC | | | [facility] | | | | | | OF CARE | | | | | | TESTS | | + +---------+ + + + + + | Specimen | + + | | + + + + + + + | Performing | Address | City/State/Zipcode | Phone Number | | Organization | | | | + + + + + | [facility] | [address] | [place], [place] | | | [facility] | [address] | [address] | | | TESTS | | | | + + + + + CAPILLARY BLOOD GLUCOSE (NO CHG), POC (02/17/2018 9:03 AM PDT) + +---------+ + + + | Component | Value | Ref Range | Performed | Pathologist | | | | | At | Signature | + +---------+ + + + | BLOOD | 150 (H) | 70 - 99 mg/dL | [facility] - | | | GLUCOSE, | | | [place] | | | POC | | | [facility] | | | | | | OF CARE | | | | | | TESTS | | + +---------+ + + + + + | Specimen | + + | | + + + + + + + | Performing | Address | City/State/Zipcode | Phone Number | | Organization | | | | + + + + + | [facility] | [address] | [place], [place] | | | [facility] | [address] | [address] | | | TESTS | | | | + + + + + CAPILLARY BLOOD GLUCOSE (NO CHG), POC (02/17/2018 7:00 AM PDT) + +---------+ + + + | Component | Value | Ref Range | Performed | Pathologist | | | | | At | Signature | + +---------+ + + + | BLOOD | 137 (H) | 70 - 99 mg/dL | [facility] - | | | GLUCOSE, | | | [place] | | | POC | | | [facility] | | | | | | OF CARE | | | | | | TESTS | | + +---------+ + + + + + | Specimen | + + | | + + + + + + + | Performing | Address | City/State/Zipcode | Phone Number | | Organization | | | | + + + + + | [facility] | [address] | [place], [place] | | | [facility] | [address] | [address] | | | TESTS | | | | + + + + + CAPILLARY BLOOD GLUCOSE (NO CHG), POC (02/17/2018 6:08 AM PDT) + +---------+ + + + | Component | Value | Ref Range | Performed | Pathologist | | | | | At | Signature | + +---------+ + + + | BLOOD | 137 (H) | 70 - 99 mg/dL | [facility] | | | GLUCOSE, | | | [facility] | | | POC | | | [facility] | | | | | | OF CARE | | | | | | TESTS | | + +---------+ + + + + + | Specimen | + + | | + + + + + + + | Performing | Address | City/State/Zipcode | Phone Number | | Organization | | | | + + + + + | [facility] | [address] | [place], [place] | | | [facility] | [address] | [address] | | | TESTS | | | | + + + + + CAPILLARY BLOOD GLUCOSE (NO CHG), POC (02/17/2018 5:03 AM PDT) + +---------+ + + + | Component | Value | Ref Range | Performed | Pathologist | | | | | At | Signature | + +---------+ + + + | BLOOD | 138 (H) | 70 - 99 mg/dL | [facility] | | | [facility], | | | [facility] | | | POC | | | [facility] | | | | | | OF CARE | | | | | | TESTS | | + +---------+ + + + + + | Specimen | + + | | + + + + + + + | Performing | Address | City/State/Zipcode | Phone Number | | Organization | | | | + + + + + | [facility] | [address] | [place], [place] | | | [facility] | [address] | [address] | | | TESTS | | | | + + + + + CAPILLARY BLOOD GLUCOSE (NO CHG), POC (02/17/2018 4:19 AM PDT) + +---------+ + + + | Component | Value | Ref Range | Performed | Pathologist | | | | | At | Signature | + +---------+ + + + | BLOOD | 196 (H) | 70 - 99 mg/dL | [facility] | | | GLUCOSE, | | | [facility] | | | POC | | | [facility] | | | | | | [facility]ARE | | | | | | TESTS | | + +---------+ + + + + + | Specimen | + + | | + + + + + + + | Performing | Address | City/State/Zipcode | Phone Number | | Organization | | | | + + + + + | [facility] | [address] | [place], [place] | | | [facility] | [address] | [address] | | | TESTS | | | | + + + + + CBC AND AUTO DIFF (02/17/2018 4:03 AM PDT) + + + + + + | Component | Value | Ref Range | Performed | Pathologist | | | | | At | Signature | + + + + + + | WHITE CELL | 13.88 (H) | 3.50 - 10.80 | [facility] | | | COUNT | | K/cu mm | LABORATORY | | | | | | SERVICES, | | | | | | CORE | | + + + + + + | RED CELL | 4.81 | 4.00 - 5.20 | [facility] | | | COUNT | | M/cu mm | LABORATORY | | | | | | SERVICES, | | | | | | CORE | | + + + + + + | HEMOGLOBIN | 13.2 | 12.0 - 16.0 | [facility] | | | | | g/dL | LABORATORY | | | | | | SERVICES, | | | | | | CORE | | + + + + + + | HEMATOCRIT | 44.5 | 36.0 - 46.0 % | [facility] | | | | | | LABORATORY | | | | | | SERVICES, | | | | | | CORE | | + + + + + + | MCV | 92.5 | 80.0 - 96.0 fL | [facility] | | | | | | LABORATORY | | | | | | SERVICES, | | | | | | CORE | | + + + + + + | MCHC | 29.7 | 33.0 - 35.5 | [facility] | | | | | g/dL | LABORATORY | | | | | | SERVICES, | | | | | | CORE | | + + + + + + | RDW SD | 49.6 (H) | 35.1 - 46.3 fL | [facility] | | | | | | LABORATORY | | | | | | SERVICES, | | | | | | CORE | | + + + + + + | PLATELET | 293 | 150 - 400 K/cu | [facility] | | | COUNT | | mm | LABORATORY | | | | | | SERVICES, | | | | | | CORE | | + + + + + + | MPV | 9.6 (L) | 9.7 - 12.3 fL | [facility] | | | | | | LABORATORY | | | | | | SERVICES, | | | | | | CORE | | + + + + + + | NRBC% | 0.0 | 0.0 - 0.3 % | [facility] | | | | | | LABORATORY | | | | | | SERVICES, | | | | | | CORE | | + + + + + + | NRBC# | 0.00 | 0.00 - 0.02 | [facility] | | | | | K/cu mm | LABORATORY | | | | | | SERVICES, | | | | | | CORE | | + + + + + + | NEUTROPHIL | 73.2 (H) | 50.0 - 70.0 % | [facility] | | | % | | | LABORATORY | | | | | | SERVICES, | | | | | | CORE | | + + + + + + | LYMPHOCYTE | 13.8 (L) | 18.0 - 42.0 % | [facility] | | | % | | | LABORATORY | | | | | | SERVICES, | | | | | | CORE | | + + + + + + | MONOCYTE % | 7.8 | 3.5 - 9.0 % | [facility] | | | | | | LABORATORY | | | | | | SERVICES, | | | | | | CORE | | + + + + + + | EOS % | 2.9 | 1.0 - 3.0 % | [facility] | | | | | | LABORATORY | | | | | | SERVICES, | | | | | | CORE | | + + + + + + | BASO % | 0.6 | 0.0 - 2.0 % | [facility] | | | | | | LABORATORY | | | | | | SERVICES, | | | | | | CORE | | + + + + + + | IG% | 1.7 (H)Comment: | 0.0 - 1.0 % | [facility] | | | | Increased immature | | LABORATORY | | | | granulocytes (IG) define | | SERVICES, | | | | a left shift. Immature | | CORE | | | | granulocytes (IG) are | | | | | | an automated count of | | | | | | metamyelocytes, | | | | | | myelocytes and | | | | | | promyelocytes. Bands | | | | | | are not included in the | | | | | | IG count. Bands are | | | | | | included in the | | | | | | neutrophil count. | | | | + + + + + + | NEUTROPHIL | 10.16 (H) | 1.80 - 7.70 | [facility] | | | # | | K/cu mm | LABORATORY | | | | | | SERVICES, | | | | | | CORE | | + + + + + + | LYMPHOCYTE | 1.92 | 1.00 - 4.80 | [facility] | | | # | | K/cu mm | LABORATORY | | | | | | SERVICES, | | | | | | CORE | | + + + + + + | MONOCYTE # | 1.08 (H) | 0.10 - 0.90 | [facility] | | | | | K/cu mm | LABORATORY | | | | | | SERVICES, | | | | | | CORE | | + + + + + + | EOS # | 0.40 | 0.00 - 0.50 | [facility] | | | | | K/cu mm | LABORATORY | | | | | | SERVICES, | | | | | | CORE | | + + + + + + | BASO # | 0.09 | 0.00 - 0.10 | [facility] | | | | | K/cu mm | LABORATORY | | | | | | SERVICES, | | | | | | CORE | | + + + + + + | IG# | 0.23 (H) | 0.00 - 0.10 | [facility] | | | | | K/cu mm | LABORATORY | | | | | | SERVICES, | | | | | | CORE | | + + + + + + + + | Specimen | + + | Blood | + + + + + | Narrative | Performed At | + + + | New reference ranges for IG% and IG# effective 12/02/2017. | [facility] | | Increased immature granulocytes (IG) define a left shift. Immature | LABORATORY | | granulocytes (IG) are an automated count of metamyelocytes, myelocytes | SERVICES, CORE | | and promyelocytes. Bands are not included in the IG count. Bands are | | | included in the neutrophil count. | | + + + + + + + + | Performing | Address | City/State/Zipcode | Phone Number | | Organization | | | | + + + + + | [facility] | [address] | [place] [address] | | | SERVICES, CORE | [address] | | | + + + + + MAGNESIUM, PLASMA (02/17/2018 4:03 AM PDT) + +---------+ + + + | Component | Value | Ref Range | Performed | Pathologist | | | | | At | Signature | + +---------+ + + + | MAGNESIUM,P | 2.7 (H) | 1.6 - 2.6 mg/dL | [facility] | | | LASMA | | | LABORATORY | | | | | | SERVICES, | | | | | | CORE | | + +---------+ + + + + + | Specimen | + + | Blood | + + + + + | Narrative | Performed At | + + + | Reference range change effective 06/26/17. | [facility] | | | LABORATORY | | | [place] | + + + + + + + + | Performing | Address | City/State/Zipcode | Phone Number | | Organization | | | | + + + + + | [facility] | [address] | [place] [address] | | | [place], [place] | [address] | | | + + + + + RENAL FUNCTION SET (NA,K,CL,CO2,BUN,CREAT,GLUC,CA,PHOS,ALB ) (02/17/2018 4:03 AM PDT) + +---------+ + + + | Component | Value | Ref Range | Performed | Pathologist | | | | | At | Signature | + +---------+ + + + | GLUCOSE, | 149 (H) | 70 - 99 mg/dL | [facility] | | | PLASMA | | | LABORATORY | | | (LAB) | | | SERVICES, | | | | | | CORE | | + +---------+ + + + | BUN, PLASMA | 46 (H) | 6 - 20 mg/dL | [facility] | | | (LAB) | | | LABORATORY | | | | | | SERVICES, | | | | | | CORE | | + +---------+ + + + | CREATININE | 1.04 | 0.60 - 1.10 | [facility] | | | PLASMA | | mg/dL | LABORATORY | | | (LAB) | | | SERVICES, | | | | | | CORE | | + +---------+ + + + | EGFR | >60 | >60 mL/min | [facility] | | | - | | | LABORATORY | | | [place] | | | SERVICES, | | | | | | CORE | | + +---------+ + + + | EGFR NON | 54 (L) | >60 mL/min | [facility] | | | -[facility] | | | LABORATORY | | | [place] | | | SERVICES, | | | | | | CORE | | + +---------+ + + + | SODIUM, | 147 (H) | 136 - 145 | [facility] | | | PLASMA | | mmol/L | LABORATORY | | | (LAB) | | | SERVICES, | | | | | | CORE | | + +---------+ + + + | POTASSIUM, | 3.8 | 3.4 - 5.0 | [facility] | | | PLASMA | | mmol/L | LABORATORY | | | (LAB) | | | SERVICES, | | | | | | CORE | | + +---------+ + + + | CHLORIDE, | 114 (H) | 97 - 108 mmol/L | [facility] | | | PLASMA | | | LABORATORY | | | (LAB) | | | SERVICES, | | | | | | CORE | | + +---------+ + + + | TOTAL CO2, | 28 | 21 - 32 mmol/L | [facility] | | | PLASMA | | | LABORATORY | | | (LAB) | | | SERVICES, | | | | | | CORE | | + +---------+ + + + | CALCIUM, | 8.7 | 8.6 - 10.2 | [facility] | | | PLASMA | | mg/dL | LABORATORY | | | (LAB) | | | SERVICES, | | | | | | CORE | | + +---------+ + + + | CALCIUM(ALB | 10.1 | 8.6 - 10.2 | [facility] | | | CORRECTED) | | mg/dL | LABORATORY | | | | | | SERVICES, | | | | | | CORE | | + +---------+ + + + | ALBUMIN, | 2.3 (L) | 3.5 - 4.7 g/dL | [facility] | | | PLASMA | | | LABORATORY | | | (LAB) | | | SERVICES, | | | | | | CORE | | + +---------+ + + + | PHOSPHORUS, | 2.8 | 2.4 - 4.7 mg/dL | [facility] | | | PLASMA | | | LABORATORY | | | (LAB) | | | SERVICES, | | | | | | CORE | | + +---------+ + + + | POTASSIUM | No Hemo | | [facility] | | | CMNT | | | LABORATORY | | | | | | SERVICES, | | | | | | CORE | | + +---------+ + + + | ANION GAP | 5 | 4 - 11 mmol/L | [facility] | | | | | | LABORATORY | | | | | | SERVICES, | | | | | | CORE | | + +---------+ + + + | ANION | 9 | 4 - 11 mmol/L | [facility] | | | GAP(ALB | | | LABORATORY | | | CORRECTED) | | | SERVICES, | | | | | | CORE | | + +---------+ + + + + + | Specimen | + + | Blood | + + + + + | Narrative | Performed At | + + + | Adult glucose reference range change effective 05-23-17. GFR is | [facility] | | estimated using the MDRD equation recommended by the National Kidney | LABORATORY | | Disease Education Program. Estimated GFR Interpretive Information: | SERVICES, CORE | | <60 mL/min/1.73 sq m Chronic Kidney | | | Disease <15 mL/min/1.73 sq m Kidney | | | Failure Estimated GFR greater that 60 mL/min/1.73 sq m is of limited | | | clinical value. The MDRD equation is not valid in the following | | | situations: - Patients under 18 years of age - Severe malnutrition | | | or obesity - Vegetarian diet - Rapidly changing kidney function | | + + + + + + + + | Performing | Address | City/State/Zipcode | Phone Number | | Organization | | | | + + + + + | [facility] | [address] | [place] [address] | | | SERVICES, CORE | [address] | | | + + + + + TRIGLYCERIDES, PLASMA (02/17/2018 4:03 AM PDT) + +---------+ + + + | Component | Value | Ref Range | Performed | Pathologist | | | | | At | Signature | + +---------+ + + + | TRIGLYCERID | 286 (H) | <150 mg/dL | [facility] | | | ES | | | LABORATORY | | | | | | SERVICES, | | | | | | CORE | | + +---------+ + + + + + | Specimen | + + | Blood | + + + + + | Narrative | Performed At | + + + | Triglyceride Reference Range: Normal: | [facility] | | <150 mg/dL Borderline High: 150-199 mg/dL | LABORATORY | | High: 200-499 mg/dL Very | SERVICES, CORE | | High: >=500 mg/dL | | + + + + + + + + | Performing | Address | City/State/Zipcode | Phone Number | | Organization | | | | + + + + + | [facility] | [address] | [place] [address] | | | SERVICES, CORE | [address] | | | + + + + + CAPILLARY BLOOD GLUCOSE (NO CHG), POC (02/17/2018 3:15 AM PDT) + +---------+ + + + | Component | Value | Ref Range | Performed | Pathologist | | | | | At | Signature | + +---------+ + + + | BLOOD | 149 (H) | 70 - 99 mg/dL | [facility] | | | GLUCOSE, | | | [facility] | | | POC | | | [facility] | | | | | | OF CARE | | | | | | TESTS | | + +---------+ + + + + + | Specimen | + + | | + + + + + + + | Performing | Address | City/State/Zipcode | Phone Number | | Organization | | | | + + + + + | [facility] | [address] | [place], [place] | | | [facility] | [address] | [address] | | | TESTS | | | | + + + + + CAPILLARY BLOOD GLUCOSE (NO CHG), POC (02/17/2018 2:06 AM PDT) + +---------+ + + + | Component | Value | Ref Range | Performed | Pathologist | | | | | At | Signature | + +---------+ + + + | BLOOD | 134 (H) | 70 - 99 mg/dL | [facility] | | | GLUCOSE, | | | [facility] | | | POC | | | [facility] | | | | | | OF CARE | | | | | | TESTS | | + +---------+ + + + + + | Specimen | + + | | + + + + + + + | Performing | Address | City/State/Zipcode | Phone Number | | Organization | | | | + + + + + | [facility] | [address] | [place], [place] | | | [facility] | [address] | [address] | | | TESTS | | | | + + + + + CAPILLARY BLOOD GLUCOSE (NO CHG), POC (02/17/2018 12:50 AM PDT) + +---------+ + + + | Component | Value | Ref Range | Performed | Pathologist | | | | | At | Signature | + +---------+ + + + | BLOOD | 168 (H) | 70 - 99 mg/dL | [facility] - | | | GLUCOSE, | | | [facility] | | | POC | | | [facility] | | | | | | OF CARE | | | | | | TESTS | | + +---------+ + + + + + | Specimen | + + | | + + + + + + + | Performing | Address | City/State/Zipcode | Phone Number | | Organization | | | | + + + + + | [facility] | [address] | [place], [place] | | | [facility] | [address] | [address] | | | TESTS | | | | + + + + + CAPILLARY BLOOD GLUCOSE (NO CHG), POC (02/16/2018 11:59 PM PDT) + +---------+ + + + | Component | Value | Ref Range | Performed | Pathologist | | | | | At | Signature | + +---------+ + + + | BLOOD | 172 (H) | 70 - 99 mg/dL | [facility] - | | | GLUCOSE, | | | [facility] | | | POC | | | [facility] | | | | | | OF CARE | | | | | | TESTS | | + +---------+ + + + + + | Specimen | + + | | + + + + + + + | Performing | Address | City/State/Zipcode | Phone Number | | Organization | | | | + + + + + | [facility] | [address] | [place], [place] | | | [facility] | [address] | [phone] | | | TESTS | | | | + + + + + CAPILLARY BLOOD GLUCOSE (NO CHG), POC (02/16/2018 10:09 PM PDT) + +---------+ + + + | Component | Value | Ref Range | Performed | Pathologist | | | | | At | Signature | + +---------+ + + + | BLOOD | 141 (H) | 70 - 99 mg/dL | [facility] - | | | GLUCOSE, | | | [facility] | | | POC | | | [facility] | | | | | | OF CARE | | | | | | TESTS | | + +---------+ + + + + + | Specimen | + + | | + + + + + + + | Performing | Address | City/State/Zipcode | Phone Number | | Organization | | | | + + + + + | [facility] | [address] | [place], [place] | | | [facility] | [address] | [address] | | | TESTS | | | | + + + + + CAPILLARY BLOOD GLUCOSE (NO CHG), POC (02/16/2018 7:48 PM PDT) + +---------+ + + + | Component | Value | Ref Range | Performed | Pathologist | | | | | At | Signature | + +---------+ + + + | BLOOD | 144 (H) | 70 - 99 mg/dL | [facility] - | | | GLUCOSE, | | | [facility] | | | POC | | | [facility] | | | | | | OF CARE | | | | | | TESTS | | + +---------+ + + + + + | Specimen | + + | | + + + + + + + | Performing | Address | City/State/Zipcode | Phone Number | | Organization | | | | + + + + + | [facility] | [address] | [place], [place] | | | [facility] | [address] | [address] | | | TESTS | | | | + + + + + CAPILLARY BLOOD GLUCOSE (NO CHG), POC (02/16/2018 6:05 PM PDT) + +---------+ + + + | Component | Value | Ref Range | Performed | Pathologist | | | | | At | Signature | + +---------+ + + + | BLOOD | 149 (H) | 70 - 99 mg/dL | [facility] - | | | GLUCOSE, | | | [facility] | | | POC | | | [facility] | | | | | | OF CARE | | | | | | TESTS | | + +---------+ + + + + + | Specimen | + + | | + + + + + + + | Performing | Address | City/State/Zipcode | Phone Number | | Organization | | | | + + + + + | [facility] | [address] | [place], [place] | | | [facility] | [address] | [address] | | | TESTS | | | | + + + + + CAPILLARY BLOOD GLUCOSE (NO CHG), POC (02/16/2018 4:12 PM PDT) + +---------+ + + + | Component | Value | Ref Range | Performed | Pathologist | | | | | At | Signature | + +---------+ + + + | BLOOD | 148 (H) | 70 - 99 mg/dL | [facility] - | | | GLUCOSE, | | | [facility] | | | POC | | | [facility] | | | | | | OF CARE | | | | | | TESTS | | + +---------+ + + + + + | Specimen | + + | | + + + + + + + | Performing | Address | City/State/Zipcode | Phone Number | | Organization | | | | + + + + + | [facility] | [address] | [place], [place] | | | [facility] | [address] | [address] | | | TESTS | | | | + + + + + CAPILLARY BLOOD GLUCOSE (NO CHG), POC (02/16/2018 2:46 PM PDT) + +---------+ + + + | Component | Value | Ref Range | Performed | Pathologist | | | | | At | Signature | + +---------+ + + + | BLOOD | 133 (H) | 70 - 99 mg/dL | [facility] | | | GLUCOSE, | | | [facility] | | | POC | | | [facility] | | | | | | OF CARE | | | | | | TESTS | | + +---------+ + + + + + | Specimen | + + | | + + + + + + + | Performing | Address | City/State/Zipcode | Phone Number | | Organization | | | | + + + + + | [facility] | [address] | [place], [place] | | | [facility] | [address] | [address] | | | TESTS | | | | + + + + + CAPILLARY BLOOD GLUCOSE (NO CHG), POC (02/16/2018 1:08 PM PDT) + +---------+ + + + | Component | Value | Ref Range | Performed | Pathologist | | | | | At | Signature | + +---------+ + + + | BLOOD | 162 (H) | 70 - 99 mg/dL | [facility] - | | | GLUCOSE, | | | [place] | | | POC | | | [facility] | | | | | | OF CARE | | | | | | TESTS | | + +---------+ + + + + + | Specimen | + + | | + + + + + + + | Performing | Address | City/State/Zipcode | Phone Number | | Organization | | | | + + + + + | [facility] | [address] | [place], [place] | | | [facility] | [address] | [address] | | | TESTS | | | | + + + + + CAPILLARY BLOOD GLUCOSE (NO CHG), POC (02/16/2018 11:47 AM PDT) + +---------+ + + + | Component | Value | Ref Range | Performed | Pathologist | | | | | At | Signature | + +---------+ + + + | BLOOD | 151 (H) | 70 - 99 mg/dL | [facility] - | | | GLUCOSE, | | | [facility] | | | POC | | | [facility] | | | | | | OF CARE | | | | | | TESTS | | + +---------+ + + + + + | Specimen | + + | | + + + + + + + | Performing | Address | City/State/Zipcode | Phone Number | | Organization | | | | + + + + + | [facility] | [address] | [place], [place] | | | [facility] | [address] | [address] | | | TESTS | | | | + + + + + CAPILLARY BLOOD GLUCOSE (NO CHG), POC (02/16/2018 10:28 AM PDT) + +---------+ + + + | Component | Value | Ref Range | Performed | Pathologist | | | | | At | Signature | + +---------+ + + + | BLOOD | 152 (H) | 70 - 99 mg/dL | [facility] - | | | GLUCOSE, | | | [facility] | | | POC | | | [facility] | | | | | | OF CARE | | | | | | TESTS | | + +---------+ + + + + + | Specimen | + + | | + + + + + + + | Performing | Address | City/State/Zipcode | Phone Number | | Organization | | | | + + + + + | [facility] | [address] | [place], [place] | | | [facility] | [address] | [address] | | | TESTS | | | | + + + + + CAPILLARY BLOOD GLUCOSE (NO CHG), POC (02/16/2018 9:22 AM PDT) + +---------+ + + + | Component | Value | Ref Range | Performed | Pathologist | | | | | At | Signature | + +---------+ + + + | BLOOD | 146 (H) | 70 - 99 mg/dL | [facility] - | | | GLUCOSE, | | | [place] | | | POC | | | [facility] | | | | | | OF CARE | | | | | | TESTS | | + +---------+ + + + + + | Specimen | + + | | + + + + + + + | Performing | Address | City/State/Zipcode | Phone Number | | Organization | | | | + + + + + | [facility] | [address] | [place], [place] | | | [facility] | [address] | [address] | | | TESTS | | | | + + + + + CAPILLARY BLOOD GLUCOSE (NO CHG), POC (02/16/2018 7:43 AM PDT) + +---------+ + + + | Component | Value | Ref Range | Performed | Pathologist | | | | | At | Signature | + +---------+ + + + | BLOOD | 144 (H) | 70 - 99 mg/dL | [facility] - | | | GLUCOSE, | | | [place] | | | POC | | | [facility] | | | | | | OF CARE | | | | | | TESTS | | + +---------+ + + + + + | Specimen | + + | | + + + + + + + | Performing | Address | City/State/Zipcode | Phone Number | | Organization | | | | + + + + + | [facility] | [address] | [place], [place] | | | [facility] | [address] | [address] | | | TESTS | | | | + + + + + CAPILLARY BLOOD GLUCOSE (NO CHG), POC (02/16/2018 6:36 AM PDT) + +---------+ + + + | Component | Value | Ref Range | Performed | Pathologist | | | | | At | Signature | + +---------+ + + + | BLOOD | 163 (H) | 70 - 99 mg/dL | [facility] - | | | GLUCOSE, | | | [place] | | | POC | | | [facility] | | | | | | OF CARE | | | | | | TESTS | | + +---------+ + + + + + | Specimen | + + | | + + + + + + + | Performing | Address | City/State/Zipcode | Phone Number | | Organization | | | | + + + + + | [facility] | [address] | [place], [place] | | | [facility] | [address] | [address] | | | TESTS | | | | + + + + + CAPILLARY BLOOD GLUCOSE (NO CHG), POC (02/16/2018 5:33 AM PDT) + +---------+ + + + | Component | Value | Ref Range | Performed | Pathologist | | | | | At | Signature | + +---------+ + + + | BLOOD | 187 (H) | 70 - 99 mg/dL | [facility] - | | | GLUCOSE, | | | [place] | | | POC | | | [facility] | | | | | | OF CARE | | | | | | TESTS | | + +---------+ + + + + + | Specimen | + + | | + + + + + + + | Performing | Address | City/State/Zipcode | Phone Number | | Organization | | | | + + + + + | [facility] | [address] | [place], [place] | | | [facility] | [address] | [address] | | | TESTS | | | | + + + + + CAPILLARY BLOOD GLUCOSE (NO CHG), POC (02/16/2018 4:29 AM PDT) + +---------+ + + + | Component | Value | Ref Range | Performed | Pathologist | | | | | At | Signature | + +---------+ + + + | BLOOD | 138 (H) | 70 - 99 mg/dL | [facility] - | | | GLUCOSE, | | | [facility] | | | POC | | | [facility] | | | | | | OF CARE | | | | | | TESTS | | + +---------+ + + + + + | Specimen | + + | | + + + + + + + | Performing | Address | City/State/Zipcode | Phone Number | | Organization | | | | + + + + + | [facility] | [address] | [place], [place] | | | [facility] | [address] | [address] | | | TESTS | | | | + + + + + CAPILLARY BLOOD GLUCOSE (NO CHG), POC (02/16/2018 3:25 AM PDT) + +---------+ + + + | Component | Value | Ref Range | Performed | Pathologist | | | | | At | Signature | + +---------+ + + + | BLOOD | 161 (H) | 70 - 99 mg/dL | [facility] - | | | GLUCOSE, | | | [facility] | | | POC | | | [facility] | | | | | | OF CARE | | | | | | TESTS | | + +---------+ + + + + + | Specimen | + + | | + + + + + + + | Performing | Address | City/State/Zipcode | Phone Number | | Organization | | | | + + + + + | [facility] | [address] | [place], [place] | | | [facility] | [address] | [address] | | | TESTS | | | | + + + + + CAPILLARY BLOOD GLUCOSE (NO CHG), POC (02/16/2018 2:08 AM PDT) + +---------+ + + + | Component | Value | Ref Range | Performed | Pathologist | | | | | At | Signature | + +---------+ + + + | BLOOD | 180 (H) | 70 - 99 mg/dL | [facility] - | | | GLUCOSE, | | | [place] | | | POC | | | [facility] | | | | | | OF CARE | | | | | | TESTS | | + +---------+ + + + + + | Specimen | + + | | + + + + + + + | Performing | Address | City/State/Zipcode | Phone Number | | Organization | | | | + + + + + | [facility] | [address] | [place], [place] | | | [facility] | [address] | [address] | | | TESTS | | | | + + + + + CBC AND AUTO DIFF (02/16/2018 1:20 AM PDT) + + + + + + | Component | Value | Ref Range | Performed | Pathologist | | | | | At | Signature | + + + + + + | WHITE CELL | 12.62 (H) | 3.50 - 10.80 | [facility] | | | COUNT | | K/cu mm | LABORATORY | | | | | | SERVICES, | | | | | | CORE | | + + + + + + | RED CELL | 4.70 | 4.00 - 5.20 | [facility] | | | COUNT | | M/cu mm | LABORATORY | | | | | | SERVICES, | | | | | | CORE | | + + + + + + | HEMOGLOBIN | 13.1 | 12.0 - 16.0 | [facility] | | | | | g/dL | LABORATORY | | | | | | SERVICES, | | | | | | CORE | | + + + + + + | HEMATOCRIT | 43.4 | 36.0 - 46.0 % | [facility] | | | | | | LABORATORY | | | | | | SERVICES, | | | | | | CORE | | + + + + + + | MCV | 92.3 | 80.0 - 96.0 fL | [facility] | | | | | | LABORATORY | | | | | | SERVICES, | | | | | | CORE | | + + + + + + | MCHC | 30.2 | 33.0 - 35.5 | [facility] | | | | | g/dL | LABORATORY | | | | | | SERVICES, | | | | | | CORE | | + + + + + + | RDW SD | 51.6 (H) | 35.1 - 46.3 fL | [facility] | | | | | | LABORATORY | | | | | | SERVICES, | | | | | | CORE | | + + + + + + | PLATELET | 276 | 150 - 400 K/cu | [facility] | | | COUNT | | mm | LABORATORY | | | | | | SERVICES, | | | | | | CORE | | + + + + + + | MPV | 9.7 | 9.7 - 12.3 fL | [facility] | | | | | | LABORATORY | | | | | | SERVICES, | | | | | | CORE | | + + + + + + | NRBC% | 0.0 | 0.0 - 0.3 % | [facility] | | | | | | LABORATORY | | | | | | SERVICES, | | | | | | CORE | | + + + + + + | NRBC# | 0.00 | 0.00 - 0.02 | [facility] | | | | | K/cu mm | LABORATORY | | | | | | SERVICES, | | | | | | CORE | | + + + + + + | NEUTROPHIL | 77.2 (H) | 50.0 - 70.0 % | [facility] | | | % | | | LABORATORY | | | | | | SERVICES, | | | | | | CORE | | + + + + + + | LYMPHOCYTE | 12.6 (L) | 18.0 - 42.0 % | [facility] | | | % | | | LABORATORY | | | | | | SERVICES, | | | | | | CORE | | + + + + + + | MONOCYTE % | 6.5 | 3.5 - 9.0 % | [facility] | | | | | | LABORATORY | | | | | | SERVICES, | | | | | | CORE | | + + + + + + | EOS % | 1.7 | 1.0 - 3.0 % | [facility] | | | | | | LABORATORY | | | | | | SERVICES, | | | | | | CORE | | + + + + + + | BASO % | 0.6 | 0.0 - 2.0 % | [facility] | | | | | | LABORATORY | | | | | | SERVICES, | | | | | | CORE | | + + + + + + | IG% | 1.4 (H)Comment: | 0.0 - 1.0 % | [facility] | | | | Increased immature | | LABORATORY | | | | granulocytes (IG) define | | SERVICES, | | | | a left shift. Immature | | CORE | | | | granulocytes (IG) are | | | | | | an automated count of | | | | | | metamyelocytes, | | | | | | myelocytes and | | | | | | promyelocytes. Bands | | | | | | are not included in the | | | | | | IG count. Bands are | | | | | | included in the | | | | | | neutrophil count. | | | | + + + + + + | NEUTROPHIL | 9.75 (H) | 1.80 - 7.70 | [facility] | | | # | | K/cu mm | LABORATORY | | | | | | SERVICES, | | | | | | CORE | | + + + + + + | LYMPHOCYTE | 1.59 | 1.00 - 4.80 | [facility] | | | # | | K/cu mm | LABORATORY | | | | | | SERVICES, | | | | | | CORE | | + + + + + + | MONOCYTE # | 0.82 | 0.10 - 0.90 | [facility] | | | | | K/cu mm | LABORATORY | | | | | | SERVICES, | | | | | | CORE | | + + + + + + | EOS # | 0.21 | 0.00 - 0.50 | [facility] | | | | | K/cu mm | LABORATORY | | | | | | SERVICES, | | | | | | CORE | | + + + + + + | BASO # | 0.07 | 0.00 - 0.10 | [facility] | | | | | K/cu mm | LABORATORY | | | | | | SERVICES, | | | | | | CORE | | + + + + + + | IG# | 0.18 (H) | 0.00 - 0.10 | [facility] | | | | | K/cu mm | LABORATORY | | | | | | SERVICES, | | | | | | CORE | | + + + + + + + + | Specimen | + + | Blood | + + + + + | Narrative | Performed At | + + + | New reference ranges for IG% and IG# effective 12/02/2017. | [facility] | | Increased immature granulocytes (IG) define a left shift. Immature | LABORATORY | | granulocytes (IG) are an automated count of metamyelocytes, myelocytes | SERVICES, CORE | | and promyelocytes. Bands are not included in the IG count. Bands are | | | included in the neutrophil count. | | + + + + + + + + | Performing | Address | City/State/Zipcode | Phone Number | | Organization | | | | + + + + + | [facility] | [id number] | [place] [address] | | | SERVICES, CORE | [address] | | | + + + + + MAGNESIUM, PLASMA (02/16/2018 1:20 AM PDT) + +---------+ + + + | Component | Value | Ref Range | Performed | Pathologist | | | | | At | Signature | + +---------+ + + + | MAGNESIUM,P | 2.9 (H) | 1.6 - 2.6 mg/dL | [facility] | | | [facility] | | | LABORATORY | | | | | | SERVICES, | | | | | | CORE | | + +---------+ + + + + + | Specimen | + + | Blood | + + + + + | Narrative | Performed At | + + + | Reference range change effective 06/26/17. | [facility] | | | LABORAT[facility] | | | [place] | + + + + + + + + | Performing | Address | City/State/Zipcode | Phone Number | | Organization | | | | + + + + + | [facility] | [phone] | [place] [address] | | | [place] | [address] | | | + + + + + RENAL FUNCTION SET (NA,K,CL,CO2,BUN,CREAT,GLUC,CA,PHOS,ALB ) (02/16/2018 1:20 AM PDT) + + + + + + | Component | Value | Ref Range | Performed | Pathologist | | | | | At | Signature | + + + + + + | GLUCOSE, | 191 (H) | 70 - 99 mg/dL | [facility] | | | PLASMA | | | LABORATORY | | | (LAB) | | | SERVICES, | | | | | | CORE | | + + + + + + | BUN, PLASMA | 49 (H) | 6 - 20 mg/dL | [facility] | | | (LAB) | | | LABORATORY | | | | | | SERVICES, | | | | | | CORE | | + + + + + + | CREATININE | 1.36 (H) | 0.60 - 1.10 | [facility] | | | PLASMA | | mg/dL | LABORATORY | | | (LAB) | | | SERVICES, | | | | | | CORE | | + + + + + + | EGFR | 48 (L) | >60 mL/min | [facility] | | | - | | | LABORATORY | | | [place] | | | SERVICES, | | | | | | CORE | | + + + + + + | EGFR NON | 39 (L) | >60 mL/min | [facility] | | | -[facility] | | | LABORATORY | | | [facility] | | | SERVICES, | | | | | | CORE | | + + + + + + | SODIUM, | 146 (H) | 136 - 145 | [facility] | | | PLASMA | | mmol/L | LABORATORY | | | (LAB) | | | SERVICES, | | | | | | CORE | | + + + + + + | POTASSIUM, | 4.4 | 3.4 - 5.0 | [facility] | | | PLASMA | | mmol/L | LABORATORY | | | (LAB) | | | SERVICES, | | | | | | CORE | | + + + + + + | CHLORIDE, | 112 (H) | 97 - 108 mmol/L | [facility] | | | PLASMA | | | LABORATORY | | | (LAB) | | | SERVICES, | | | | | | CORE | | + + + + + + | TOTAL CO2, | 27 | 21 - 32 mmol/L | [facility] | | | PLASMA | | | LABORATORY | | | (LAB) | | | SERVICES, | | | | | | CORE | | + + + + + + | CALCIUM, | 8.4 (L) | 8.6 - 10.2 | [facility] | | | PLASMA | | mg/dL | LABORATORY | | | (LAB) | | | SERVICES, | | | | | | CORE | | + + + + + + | CALCIUM(ALB | 9.7 | 8.6 - 10.2 | [facility] | | | CORRECTED) | | mg/dL | LABORATORY | | | | | | SERVICES, | | | | | | CORE | | + + + + + + | ALBUMIN, | 2.4 (L) | 3.5 - 4.7 g/dL | [facility] | | | PLASMA | | | LABORATORY | | | (LAB) | | | SERVICES, | | | | | | CORE | | + + + + + + | PHOSPHORUS, | 3.6 | 2.4 - 4.7 mg/dL | [facility] | | | PLASMA | | | LABORATORY | | | (LAB) | | | SERVICES, | | | | | | CORE | | + + + + + + | POTASSIUM | No Hemo | | [facility] | | | CMNT | | | LABORATORY | | | | | | SERVICES, | | | | | | CORE | | + + + + + + | ANION GAP | 7 | 4 - 11 mmol/L | [facility] | | | | | | LABORATORY | | | | | | SERVICES, | | | | | | CORE | | + + + + + + | ANION | 11 | 4 - 11 mmol/L | [facility] | | | GAP(ALB | | | LABORATORY | | | CORRECTED) | | | SERVICES, | | | | | | CORE | | + + + + + + + + | Specimen | + + | Blood | + + + + + | Narrative | Performed At | + + + | Adult glucose reference range change effective 7-12-17. GFR is | [facility] | | estimated using the MDRD equation recommended by the National Kidney | LABORATORY | | Disease Education Program. Estimated GFR Interpretive Information: | SERVICES, CORE | | <60 mL/min/1.73 sq m Chronic Kidney | | | Disease <15 mL/min/1.73 sq m Kidney | | | Failure Estimated GFR greater that 60 mL/min/1.73 sq m is of limited | | | clinical value. The MDRD equation is not valid in the following | | | situations: - Patients under 18 years of age - Severe malnutrition | | | or obesity - Vegetarian diet - Rapidly changing kidney function | | + + + + + + + + | Performing | Address | City/State/Zipcode | Phone Number | | Organization | | | | + + + + + | [facility] | [address] | [place] [address] | | | SERVICES, CORE | [address] | | | + + + + + CAPILLARY BLOOD GLUCOSE (NO CHG), POC (02/16/2018 12:59 AM PDT) + +---------+ + + + | Component | Value | Ref Range | Performed | Pathologist | | | | | At | Signature | + +---------+ + + + | BLOOD | 180 (H) | 70 - 99 mg/dL | [facility] | | | GLUCOSE, | | | [facility] | | | POC | | | [facility] | | | | | | OF CARE | | | | | | TESTS | | + +---------+ + + + + + | Specimen | + + | | + + + + + + + | Performing | Address | City/State/Zipcode | Phone Number | | Organization | | | | + + + + + | [facility] | [address] | [place], [place] | | | [facility] | [address] | [address] | | | TESTS | | | | + + + + + CAPILLARY BLOOD GLUCOSE (NO CHG), POC (02/15/2018 11:46 PM PDT) + +---------+ + + + | Component | Value | Ref Range | Performed | Pathologist | | | | | At | Signature | + +---------+ + + + | BLOOD | 216 (H) | 70 - 99 mg/dL | [facility] | | | GLUCOSE, | | | [facility] | | | POC | | | [facility] | | | | | | OF CARE | | | | | | TESTS | | + +---------+ + + + + + | Specimen | + + | | + + + + + + + | Performing | Address | City/State/Zipcode | Phone Number | | Organization | | | | + + + + + | [facility] | [address] | [place], [place] | | | [facility] | [address] | [phone] | | | TESTS | | | | + + + + + CAPILLARY BLOOD GLUCOSE (NO CHG), POC (02/15/2018 10:40 PM PDT) + +---------+ + + + | Component | Value | Ref Range | Performed | Pathologist | | | | | At | Signature | + +---------+ + + + | BLOOD | 209 (H) | 70 - 99 mg/dL | [facility] - | | | GLUCOSE, | | | [facility] | | | POC | | | [facility] | | | | | | OF CARE | | | | | | TESTS | | + +---------+ + + + + + | Specimen | + + | | + + + + + + + | Performing | Address | City/State/Zipcode | Phone Number | | Organization | | | | + + + + + | [facility] | [address] | [place], [place] | | | [facility] | [address] | [address] | | | TESTS | | | | + + + + + CAPILLARY BLOOD GLUCOSE (NO CHG), POC (02/15/2018 9:37 PM PDT) + +---------+ + + + | Component | Value | Ref Range | Performed | Pathologist | | | | | At | Signature | + +---------+ + + + | BLOOD | 240 (H) | 70 - 99 mg/dL | [facility] | | | GLUCOSE, | | | [facility] | | | POC | | | [facility] | | | | | | OF CARE | | | | | | TESTS | | + +---------+ + + + + + | Specimen | + + | | + + + + + + + | Performing | Address | City/State/Zipcode | Phone Number | | Organization | | | | + + + + + | [facility] | [address] | [place], [place] | | | [facility] | [address] | [address] | | | TESTS | | | | + + + + + CAPILLARY BLOOD GLUCOSE (NO CHG), POC (02/15/2018 8:35 PM PDT) + +---------+ + + + | Component | Value | Ref Range | Performed | Pathologist | | | | | At | Signature | + +---------+ + + + | BLOOD | 243 (H) | 70 - 99 mg/dL | [facility] | | | GLUCOSE, | | | [facility] | | | POC | | | [facility] | | | | | | OF CARE | | | | | | TESTS | | + +---------+ + + + + + | Specimen | + + | | + + + + + + + | Performing | Address | City/State/Zipcode | Phone Number | | Organization | | | | + + + + + | [facility] | [address] | [place], [place] | | | [facility] | [address] | [phone] | | | TESTS | | | | + + + + + CAPILLARY BLOOD GLUCOSE (NO CHG), POC (02/15/2018 7:25 PM PDT) + +---------+ + + + | Component | Value | Ref Range | Performed | Pathologist | | | | | At | Signature | + +---------+ + + + | BLOOD | 291 (H) | 70 - 99 mg/dL | [facility] - | | | GLUCOSE, | | | [facility] | | | POC | | | [facility] | | | | | | OF CARE | | | | | | TESTS | | + +---------+ + + + + + | Specimen | + + | | + + + + + + + | Performing | Address | City/State/Zipcode | Phone Number | | Organization | | | | + + + + + | [facility] | [address] | [place], [place] | | | [facility] | [address] | [phone] | | | TESTS | | | | + + + + + CAPILLARY BLOOD GLUCOSE (NO CHG), POC (02/15/2018 6:48 PM PDT) + +---------+ + + + | Component | Value | Ref Range | Performed | Pathologist | | | | | At | Signature | + +---------+ + + + | BLOOD | 326 (H) | 70 - 99 mg/dL | [facility] - | | | GLUCOSE, | | | [facility] | | | POC | | | [facility] | | | | | | OF CARE | | | | | | TESTS | | + +---------+ + + + + + | Specimen | + + | | + + + + + + + | Performing | Address | City/State/Zipcode | Phone Number | | Organization | | | | + + + + + | [facility] | [address] | [place], [place] | | | [facility] | [address] | [address] | | | TESTS | | | | + + + + + CAPILLARY BLOOD GLUCOSE (NO CHG), POC (02/15/2018 5:32 PM PDT) + +---------+ + + + | Component | Value | Ref Range | Performed | Pathologist | | | | | At | Signature | + +---------+ + + + | BLOOD | 311 (H) | 70 - 99 mg/dL | [facility] - | | | GLUCOSE, | | | [facility] | | | POC | | | [facility] | | | | | | OF CARE | | | | | | TESTS | | + +---------+ + + + + + | Specimen | + + | | + + + + + + + | Performing | Address | City/State/Zipcode | Phone Number | | Organization | | | | + + + + + | [facility] | [address] | [place], [place] | | | [facility] | [address] | [address] | | | TESTS | | | | + + + + + CAPILLARY BLOOD GLUCOSE (NO CHG), POC (02/15/2018 3:39 PM PDT) + +---------+ + + + | Component | Value | Ref Range | Performed | Pathologist | | | | | At | Signature | + +---------+ + + + | BLOOD | 299 (H) | 70 - 99 mg/dL | [facility] - | | | GLUCOSE, | | | [facility] | | | POC | | | [facility] | | | | | | OF CARE | | | | | | TESTS | | + +---------+ + + + + + | Specimen | + + | | + + + + + + + | Performing | Address | City/State/Zipcode | Phone Number | | Organization | | | | + + + + + | [facility] | [address] | [place], [place] | | | [facility] | [address] | [address] | | | TESTS | | | | + + + + + MAGNESIUM, PLASMA (02/15/2018 1:19 PM PDT) + +-------+ + + + | Component | Value | Ref Range | Performed | Pathologist | | | | | At | Signature | + +-------+ + + + | MAGNESIUM,P | 2.6 | 1.6 - 2.6 mg/dL | [facility] | | | LASMA | | | LABORATORY | | | | | | SERVICES, | | | | | | CORE | | + +-------+ + + + + + | Specimen | + + | Blood | + + + + + | Narrative | Performed At | + + + | Reference range change effective 06/26/17. | [facility] | | | LABORATORY | | | SERVICES, CORE | + + + + + + + + | Performing | Address | City/State/Zipcode | Phone Number | | Organization | | | | + + + + + | [facility] | [address] | [place] [address] | | | SERVICES, CORE | [address] | | | + + + + + BASIC METABOLIC SET (NA, K, CL, TCO2, BUN, CR, GLU, CA) (02/15/2018 1:19 PM PDT) + + + + + + | Component | Value | Ref Range | Performed | Pathologist | | | | | At | Signature | + + + + + + | GLUCOSE, | 309 (H) | 70 - 99 mg/dL | [facility] | | | PLASMA | | | LABORATORY | | | (LAB) | | | SERVICES, | | | | | | CORE | | + + + + + + | BUN, PLASMA | 41 (H) | 6 - 20 mg/dL | [facility] | | | (LAB) | | | LABORATORY | | | | | | SERVICES, | | | | | | CORE | | + + + + + + | CREATININE | 1.38 (H) | 0.60 - 1.10 | [facility] | | | PLASMA | | mg/dL | LABORATORY | | | (LAB) | | | SERVICES, | | | | | | CORE | | + + + + + + | EGFR | 47 (L) | >60 mL/min | [facility] | | | - | | | LABORATORY | | | [place] | | | SERVICES, | | | | | | CORE | | + + + + + + | EGFR NON | 39 (L) | >60 mL/min | [facility] | | | -[facility] | | | LABORATORY | | | [facility] | | | SERVICES, | | | | | | CORE | | + + + + + + | SODIUM, | 141 | 136 - 145 | [facility] | | | PLASMA | | mmol/L | LABORATORY | | | (LAB) | | | SERVICES, | | | | | | CORE | | + + + + + + | POTASSIUM, | 4.9 | 3.4 - 5.0 | [facility] | | | PLASMA | | mmol/L | LABORATORY | | | (LAB) | | | SERVICES, | | | | | | CORE | | + + + + + + | CHLORIDE, | 108 | 97 - 108 mmol/L | [facility] | | | PLASMA | | | LABORATORY | | | (LAB) | | | SERVICES, | | | | | | CORE | | + + + + + + | TOTAL CO2, | 24 | 21 - 32 mmol/L | [facility] | | | PLASMA | | | LABORATORY | | | (LAB) | | | SERVICES, | | | | | | CORE | | + + + + + + | CALCIUM, | 7.8 (L) | 8.6 - 10.2 | [facility] | | | PLASMA | | mg/dL | LABORATORY | | | (LAB) | | | SERVICES, | | | | | | CORE | | + + + + + + | ANION GAP | 9 | 4 - 11 mmol/L | [facility] | | | | | | LABORATORY | | | | | | SERVICES, | | | | | | CORE | | + + + + + + | POTASSIUM | Sl Hemo | | [facility] | | | CMNT | | | LABORATORY | | | | | | SERVICES, | | | | | | CORE | | + + + + + + + + | Specimen | + + | Blood | + + + + + | Narrative | Performed At | + + + | Adult glucose reference range change effective 712-17. Sample | [facility] | | hemolyzed. Results for K, Total Bili, Direct Bili, AST, LDH, or HDL | LABORATORY | | may be inaccurate. Refer to comment under test result. GFR is | SERVICES, CORE | | estimated using the MDRD equation recommended by the National Kidney | | | Disease Education Program. Estimated GFR Interpretive Information: | | | <60 mL/min/1.73 sq m Chronic Kidney | | | Disease <15 mL/min/1.73 sq m Kidney | | | Failure Estimated GFR greater that 60 mL/min/1.73 sq m is of limited | | | clinical value. The MDRD equation is not valid in the following | | | situations: - Patients under 18 years of age - Severe malnutrition | | | or obesity - Vegetarian diet - Rapidly changing kidney function | | + + + + + + + + | Performing | Address | City/State/Zipcode | Phone Number | | Organization | | | | + + + + + | [facility] | [address] | [place] [address] | | | SERVICES, CORE | [address] | | | + + + + + CAPILLARY BLOOD GLUCOSE (NO CHG), POC (02/15/2018 12:28 PM PDT) + +---------+ + + + | Component | Value | Ref Range | Performed | Pathologist | | | | | At | Signature | + +---------+ + + + | BLOOD | 255 (H) | 70 - 99 mg/dL | [facility] - | | | GLUCOSE, | | | [facility] | | | POC | | | [facility] | | | | | | OF CARE | | | | | | TESTS | | + +---------+ + + + + + | Specimen | + + | | + + + + + + + | Performing | Address | City/State/Zipcode | Phone Number | | Organization | | | | + + + + + | [facility] | [address] | [place], [place] | | | [facility] | [address] | [address] | | | TESTS | | | | + + + + + CAPILLARY BLOOD GLUCOSE (NO CHG), POC (02/15/2018 11:05 AM PDT) + +---------+ + + + | Component | Value | Ref Range | Performed | Pathologist | | | | | At | Signature | + +---------+ + + + | BLOOD | 249 (H) | 70 - 99 mg/dL | [facility] - | | | GLUCOSE, | | | [facility] | | | POC | | | [facility] | | | | | | OF CARE | | | | | | TESTS | | + +---------+ + + + + + | Specimen | + + | | + + + + + + + | Performing | Address | City/State/Zipcode | Phone Number | | Organization | | | | + + + + + | [facility] | [address] | [place], [place] | | | [facility] | [address] | [phone] | | | TESTS | | | | + + + + + TRIGLYCERIDES, PLASMA (02/15/2018 10:21 AM PDT) + +---------+ + + + | Component | Value | Ref Range | Performed | Pathologist | | | | | At | Signature | + +---------+ + + + | TRIGLYCERID | 466 (H) | <150 mg/dL | [facility] | | | ES | | | LABORATORY | | | | | | SERVICES, | | | | | | CORE | | + +---------+ + + + + + | Specimen | + + | Blood | + + + + + | Narrative | Performed At | + + + | Triglyceride Reference Range: Normal: | [facility] | | <150 mg/dL Borderline High: 150-199 mg/dL | LABORATORY | | High: 200-499 mg/dL Very | [facility] | | High: >=500 mg/dL | | + + + + + + + + | Performing | Address | City/State/Zipcode | Phone Number | | Organization | | | | + + + + + | [facility] | [address] | [place] [address] | | | [place] | [address] | | | + + + + + BLOOD GASES, VENOUS - LAB (02/15/2018 9:58 AM PDT) + + + + + + | Component | Value | Ref Range | Performed | Pathologist | | | | | At | Signature | + + + + + + | PH VENOUS | 7.34 (L) | 7.35 - 7.45 | [facility] | | | | | | LABORATORY | | | | | | SERVICES, | | | | | | CORE | | + + + + + + | PCO2 VENOUS | 49 | 35 - 50 mmHg | [facility] | | | | | | LABORATORY | | | | | | SERVICES, | | | | | | CORE | | + + + + + + | PO2 VENOUS | 61 (H) | 30 - 55 mmHg | [facility] | | | | | | LABORATORY | | | | | | SERVICES, | | | | | | CORE | | + + + + + + | HCO3 VENOUS | 26 | 22 - 28 mmol/L | [facility] | | | | | | LABORATORY | | | | | | SERVICES, | | | | | | CORE | | + + + + + + | BASE EXCESS | 0.4 | -3.0 - 3.0 | [facility] | | | VENOUS | | mmol/L | LABORATORY | | | | | | SERVICES, | | | | | | CORE | | + + + + + + | O2 SAT, | 89.5 | No range has | [facility] | | | VENOUS | | been | LABORATORY | | | | | established % | SERVICES, | | | | | | CORE | | + + + + + + | TOTAL CO2 | 28 | 23 - 29 mmol/L | [facility] | | | VENOUS | | | LABORATORY | | | | | | SERVICES, | | | | | | CORE | | + + + + + + + + | Specimen | + + | Blood | + + + + + + + | Performing | Address | City/State/Zipcode | Phone Number | | Organization | | | | + + + + + | [facility] | [address] | [place] [address] | | | SERVICES, CORE | [address] | | | + + + + + CAPILLARY BLOOD GLUCOSE (NO CHG), POC (02/15/2018 8:25 AM PDT) + +---------+ + + + | Component | Value | Ref Range | Performed | Pathologist | | | | | At | Signature | + +---------+ + + + | BLOOD | 211 (H) | 70 - 99 mg/dL | [facility] - | | | GLUCOSE, | | | [facility] | | | POC | | | [facility] | | | | | | OF CARE | | | | | | TESTS | | + +---------+ + + + + + | Specimen | + + | | + + + + + + + | Performing | Address | City/State/Zipcode | Phone Number | | Organization | | | | + + + + + | [facility] | [address] | [place], [place] | | | [facility] | [facility] | [address] | | | TESTS | | | | + + + + + X-RAY PORTABLE CHEST 1 VIEW (02/15/2018 7:15 AM PDT) + + | Specimen | + + | | + + + + + | Narrative | Performed At | + + + | EXAM: ME CHEST 1 VIEW 02/15/18 06:12:20 HISTORY: Worsening | [facility] | | hypoxia COMPARISON: Yesterday FINDINGS: The support | RADIOLOGY VOICE | | equipment is unchanged. The cardiomediastinal silhouette is stable. | RECOGNITION | | Right lung groundglass is unchanged. There is minimally improved left | | | lower lobe atelectasis. There is no pneumothorax. IMPRESSION: | | | Minimal improvement left lower lobe consolidation likely combination | | | of atelectasis and possible aspiration. I have personally | | | reviewed the images and, if necessary, edited the report. I agree | | | with the report as now presented. | | + + + + + | Procedure Note | + + | Service Account, Radiant Res In Interface - 02/15/2018 9:15 AM PDT EXAM: ME CHEST 1 | | VIEW 02/15/18 06:12:20 HISTORY: Worsening hypoxiaCOMPARISON: YesterdayFINDINGS: The | | support equipment is unchanged. The cardiomediastinal silhouette is stable. Right lung | | groundglass is unchanged. There is minimally improved left lower lobe atelectasis. There | | is no pneumothorax.IMPRESSION: Minimal improvement left lower lobe consolidation likely | | combination of atelectasis and possible aspiration. I have personally reviewed the | | images and, if necessary, edited the report. I agree with the report as now presented. | | | |The support equipment is unchanged. The cardiomediastinal silhouette is stable. Right lung groundglass is unchanged. There is minimally improved left lower lobe atelectasis. There is no pneumothorax. | | | |IMPRESSION: | | | |Minimal improvement left lower lobe consolidation likely combination of atelectasis and pos sible aspiration. | | | | | |I have personally reviewed the images and, if necessary, edited the report. I agree with t he report as now presented. | + + + +---------+ + + | Performing | Address | City/State/Zipcode | Phone Number | | Organization | | | | + +---------+ + + | [facility] | | | | | VOICE RECOGNITION | | | | + +---------+ + + CAPILLARY BLOOD GLUCOSE (NO CHG), POC (02/15/2018 5:51 AM PDT) + +---------+ + + + | Component | Value | Ref Range | Performed | Pathologist | | | | | At | Signature | + +---------+ + + + | BLOOD | 180 (H) | 70 - 99 mg/dL | [facility] - | | | GLUCOSE, | | | [facility] | | | POC | | | [facility] | | | | | | OF CARE | | | | | | TESTS | | + +---------+ + + + + + | Specimen | + + | | + + + + + + + | Performing | Address | City/State/Zipcode | Phone Number | | Organization | | | | + + + + + | [facility] | [address] | [place], [place] | | | [facility] | [facility] | [address] | | | TESTS | | | | + + + + + CAPILLARY BLOOD GLUCOSE (NO CHG), POC (02/15/2018 4:42 AM PDT) + +---------+ + + + | Component | Value | Ref Range | Performed | Pathologist | | | | | At | Signature | + +---------+ + + + | BLOOD | 178 (H) | 70 - 99 mg/dL | [facility] - | | | GLUCOSE, | | | [facility] | | | POC | | | [facility] | | | | | | OF CARE | | | | | | TESTS | | + +---------+ + + + + + | Specimen | + + | | + + + + + + + | Performing | Address | City/State/Zipcode | Phone Number | | Organization | | | | + + + + + | [facility] | [address] | [place], [place] | | | [facility] | [address] | [address] | | | TESTS | | | | + + + + + MAGNESIUM, PLASMA (02/15/2018 4:01 AM PDT) + +-------+ + + + | Component | Value | Ref Range | Performed | Pathologist | | | | | At | Signature | + +-------+ + + + | MAGNESIUM,P | 2.6 | 1.6 - 2.6 mg/dL | [facility] | | | LASMA | | | LABORATORY | | | | | | SERVICES, | | | | | | CORE | | + +-------+ + + + + + | Specimen | + + | Blood | + + + + + | Narrative | Performed At | + + + | Reference range change effective 06/26/17. | [facility] | | | LABORATORY | | | SERVICES, CORE | + + + + + + + + | Performing | Address | City/State/Zipcode | Phone Number | | Organization | | | | + + + + + | [facility] | [address] [facility] | [place] [address] | | | SERVICES, CORE | [address] | | | + + + + + RENAL FUNCTION SET (NA,K,CL,CO2,BUN,CREAT,GLUC,CA,PHOS,ALB ) (02/15/2018 4:01 AM PDT) + + + + + + | Component | Value | Ref Range | Performed | Pathologist | | | | | At | Signature | + + + + + + | GLUCOSE, | 152 (H) | 70 - 99 mg/dL | [facility] | | | PLASMA | | | LABORATORY | | | (LAB) | | | SERVICES, | | | | | | CORE | | + + + + + + | BUN, PLASMA | 32 (H) | 6 - 20 mg/dL | [facility] | | | (LAB) | | | LABORATORY | | | | | | SERVICES, | | | | | | CORE | | + + + + + + | CREATININE | 1.50 (H) | 0.60 - 1.10 | [facility] | | | PLASMA | | mg/dL | LABORATORY | | | (LAB) | | | SERVICES, | | | | | | CORE | | + + + + + + | EGFR | 43 (L) | >60 mL/min | [facility] | | | - | | | LABORATORY | | | [place] | | | SERVICES, | | | | | | CORE | | + + + + + + | EGFR NON | 35 (L) | >60 mL/min | [facility] | | | -[facility] | | | LABORATORY | | | [facility] | | | SERVICES, | | | | | | CORE | | + + + + + + | SODIUM, | 145 | 136 - 145 | [facility] | | | PLASMA | | mmol/L | LABORATORY | | | (LAB) | | | SERVICES, | | | | | | CORE | | + + + + + + | POTASSIUM, | 4.4 | 3.4 - 5.0 | [facility] | | | PLASMA | | mmol/L | LABORATORY | | | (LAB) | | | SERVICES, | | | | | | CORE | | + + + + + + | CHLORIDE, | 110 (H) | 97 - 108 mmol/L | [facility] | | | PLASMA | | | LABORATORY | | | (LAB) | | | SERVICES, | | | | | | CORE | | + + + + + + | TOTAL CO2, | 27 | 21 - 32 mmol/L | [facility] | | | PLASMA | | | LABORATORY | | | (LAB) | | | SERVICES, | | | | | | CORE | | + + + + + + | CALCIUM, | 7.9 (L) | 8.6 - 10.2 | [facility] | | | PLASMA | | mg/dL | LABORATORY | | | (LAB) | | | SERVICES, | | | | | | CORE | | + + + + + + | CALCIUM(ALB | 9.3 | 8.6 - 10.2 | [facility] | | | CORRECTED) | | mg/dL | LABORATORY | | | | | | SERVICES, | | | | | | CORE | | + + + + + + | ALBUMIN, | 2.2 (L) | 3.5 - 4.7 g/dL | [facility] | | | PLASMA | | | LABORATORY | | | (LAB) | | | SERVICES, | | | | | | CORE | | + + + + + + | PHOSPHORUS, | 4.0 | 2.4 - 4.7 mg/dL | [facility] | | | PLASMA | | | LABORATORY | | | (LAB) | | | SERVICES, | | | | | | CORE | | + + + + + + | POTASSIUM | No Hemo | | [facility] | | | CMNT | | | LABORATORY | | | | | | SERVICES, | | | | | | CORE | | + + + + + + | ANION GAP | 8 | 4 - 11 mmol/L | [facility] | | | | | | LABORATORY | | | | | | SERVICES, | | | | | | CORE | | + + + + + + | ANION | 12 (H) | 4 - 11 mmol/L | [facility] | | | GAP(ALB | | | LABORATORY | | | CORRECTED) | | | SERVICES, | | | | | | CORE | | + + + + + + + + | Specimen | + + | Blood | + + + + + | Narrative | Performed At | + + + | Adult glucose reference range change effective 7-12-17. GFR is | [facility] | | estimated using the MDRD equation recommended by the National Kid[employer] | LABORATORY | | Disease Education Program. Estimated GFR Interpretive Information: | SERVICES, CORE | | <60 mL/min/1.73 sq m Chronic Kidney | | | Disease <15 mL/min/1.73 sq m Kidney | | | Failure Estimated GFR greater that 60 mL/min/1.73 sq m is of limited | | | clinical value. The MDRD equation is not valid in the following | | | situations: - Patients under 18 years of age - Severe malnutrition | | | or obesity - Vegetarian diet - Rapidly changing kidney function | | + + + + + + + + | Performing | Address | City/State/Zipcode | Phone Number | | Organization | | | | + + + + + | [facility] | [id number] | [place] [address] | | | SERVICES, CORE | [address] | | | + + + + + CBC AND AUTO DIFF (02/15/2018 4:00 AM PDT) + + + + + + | Component | Value | Ref Range | Performed | Pathologist | | | | | At | Signature | + + + + + + | WHITE CELL | 12.15 (H) | 3.50 - 10.80 | [facility] | | | COUNT | | K/cu mm | LABORATORY | | | | | | SERVICES, | | | | | | CORE | | + + + + + + | RED CELL | 4.64 | 4.00 - 5.20 | [facility] | | | COUNT | | M/cu mm | LABORATORY | | | | | | SERVICES, | | | | | | CORE | | + + + + + + | HEMOGLOBIN | 12.8 | 12.0 - 16.0 | [facility] | | | | | g/dL | LABORATORY | | | | | | SERVICES, | | | | | | CORE | | + + + + + + | HEMATOCRIT | 42.3 | 36.0 - 46.0 % | [facility] | | | | | | LABORATORY | | | | | | SERVICES, | | | | | | CORE | | + + + + + + | MCV | 91.2 | 80.0 - 96.0 fL | [facility] | | | | | | LABORATORY | | | | | | SERVICES, | | | | | | CORE | | + + + + + + | MCHC | 30.3 | 33.0 - 35.5 | [facility] | | | | | g/dL | LABORATORY | | | | | | SERVICES, | | | | | | CORE | | + + + + + + | RDW SD | 51.2 (H) | 35.1 - 46.3 fL | [facility] | | | | | | LABORATORY | | | | | | SERVICES, | | | | | | CORE | | + + + + + + | PLATELET | 261 | 150 - 400 K/cu | [facility] | | | COUNT | | mm | LABORATORY | | | | | | SERVICES, | | | | | | CORE | | + + + + + + | MPV | 9.5 (L) | 9.7 - 12.3 fL | [facility] | | | | | | LABORATORY | | | | | | SERVICES, | | | | | | CORE | | + + + + + + | NRBC% | 0.0 | 0.0 - 0.3 % | [facility] | | | | | | LABORATORY | | | | | | SERVICES, | | | | | | CORE | | + + + + + + | NRBC# | 0.00 | 0.00 - 0.02 | [facility] | | | | | K/cu mm | LABORATORY | | | | | | SERVICES, | | | | | | CORE | | + + + + + + | NEUTROPHIL | 77.3 (H) | 50.0 - 70.0 % | [facility] | | | % | | | LABORATORY | | | | | | SERVICES, | | | | | | CORE | | + + + + + + | LYMPHOCYTE | 12.6 (L) | 18.0 - 42.0 % | [facility] | | | % | | | LABORATORY | | | | | | SERVICES, | | | | | | CORE | | + + + + + + | MONOCYTE % | 5.8 | 3.5 - 9.0 % | [facility] | | | | | | LABORATORY | | | | | | SERVICES, | | | | | | CORE | | + + + + + + | EOS % | 2.3 | 1.0 - 3.0 % | [facility] | | | | | | LABORATORY | | | | | | SERVICES, | | | | | | CORE | | + + + + + + | BASO % | 0.6 | 0.0 - 2.0 % | [facility] | | | | | | LABORATORY | | | | | | SERVICES, | | | | | | CORE | | + + + + + + | IG% | 1.4 (H)Comment: | 0.0 - 1.0 % | [facility] | | | | Increased immature | | LABORATORY | | | | granulocytes (IG) define | | SERVICES, | | | | a left shift. Immature | | CORE | | | | granulocytes (IG) are | | | | | | an automated count of | | | | | | metamyelocytes, | | | | | | myelocytes and | | | | | | promyelocytes. Bands | | | | | | are not included in the | | | | | | IG count. Bands are | | | | | | included in the | | | | | | neutrophil count. | | | | + + + + + + | NEUTROPHIL | 9.40 (H) | 1.80 - 7.70 | [facility] | | | # | | K/cu mm | LABORATORY | | | | | | SERVICES, | | | | | | CORE | | + + + + + + | LYMPHOCYTE | 1.53 | 1.00 - 4.80 | [facility] | | | # | | K/cu mm | LABORATORY | | | | | | SERVICES, | | | | | | CORE | | + + + + + + | MONOCYTE # | 0.70 | 0.10 - 0.90 | [facility] | | | | | K/cu mm | LABORATORY | | | | | | SERVICES, | | | | | | CORE | | + + + + + + | EOS # | 0.28 | 0.00 - 0.50 | [facility] | | | | | K/cu mm | LABORATORY | | | | | | SERVICES, | | | | | | CORE | | + + + + + + | BASO # | 0.07 | 0.00 - 0.10 | [facility] | | | | | K/cu mm | LABORATORY | | | | | | SERVICES, | | | | | | CORE | | + + + + + + | IG# | 0.17 (H) | 0.00 - 0.10 | [facility] | | | | | K/cu mm | LABORATORY | | | | | | SERVICES, | | | | | | CORE | | + + + + + + + + | Specimen | + + | Blood | + + + + + | Narrative | Performed At | + + + | New reference ranges for IG% and IG# effective 12/02/2017. | [facility] | | Increased immature granulocytes (IG) define a left shift. Immature | LABORATORY | | granulocytes (IG) are an automated count of metamyelocytes, myelocytes | SERVICES, CORE | | and promyelocytes. Bands are not included in the IG count. Bands are | | | included in the neutrophil count. | | + + + + + + + + | Performing | Address | City/State/Zipcode | Phone Number | | Organization | | | | + + + + + | [facility] | [address] | [place] [address] | | | SERVICES, CORE | [address] | | | + + + + + CAPILLARY BLOOD GLUCOSE (NO CHG), POC (02/15/2018 3:37 AM PDT) + +---------+ + + + | Component | Value | Ref Range | Performed | Pathologist | | | | | At | Signature | + +---------+ + + + | BLOOD | 159 (H) | 70 - 99 mg/dL | [facility] | | | GLUCOSE, | | | [place] | | | POC | | | [facility] | | | | | | OF CARE | | | | | | TESTS | | + +---------+ + + + + + | Specimen | + + | | + + + + + + + | Performing | Address | City/State/Zipcode | Phone Number | | Organization | | | | + + + + + | [facility] | [address] | [place], [place] | | | [facility] | [address] | [address] | | | TESTS | | | | + + + + + CAPILLARY BLOOD GLUCOSE (NO CHG), POC (02/15/2018 2:34 AM PDT) + +---------+ + + + | Component | Value | Ref Range | Performed | Pathologist | | | | | At | Signature | + +---------+ + + + | BLOOD | 150 (H) | 70 - 99 mg/dL | [facility] | | | GLUCOSE, | | | [facility] | | | POC | | | [facility] | | | | | | OF CARE | | | | | | TESTS | | + +---------+ + + + + + | Specimen | + + | | + + + + + + + | Performing | Address | City/State/Zipcode | Phone Number | | Organization | | | | + + + + + | [facility] | [address] | [place], [place] | | | [facility] | [address] | [address] | | | TESTS | | | | + + + + + CAPILLARY BLOOD GLUCOSE (NO CHG), POC (02/15/2018 1:29 AM PDT) + +---------+ + + + | Component | Value | Ref Range | Performed | Pathologist | | | | | At | Signature | + +---------+ + + + | BLOOD | 132 (H) | 70 - 99 mg/dL | [facility] | | | GLUCOSE, | | | [place] | | | POC | | | [facility] | | | | | | OF CARE | | | | | | TESTS | | + +---------+ + + + + + | Specimen | + + | | + + + + + + + | Performing | Address | City/State/Zipcode | Phone Number | | Organization | | | | + + + + + | [facility] | [address] | [place], [place] | | | [facility] | [address] | [address] | | | TESTS | | | | + + + + + CAPILLARY BLOOD GLUCOSE (NO CHG), POC (02/15/2018 12:23 AM PDT) + +---------+ + + + | Component | Value | Ref Range | Performed | Pathologist | | | | | At | Signature | + +---------+ + + + | BLOOD | 158 (H) | 70 - 99 mg/dL | [facility] | | | GLUCOSE, | | | [facility] | | | POC | | | [facility] | | | | | | OF CARE | | | | | | TESTS | | + +---------+ + + + + + | Specimen | + + | | + + + + + + + | Performing | Address | City/State/Zipcode | Phone Number | | Organization | | | | + + + + + | [facility] | [address] | [place], [place] | | | [facility] | [address] | [address] | | | TESTS | | | | + + + + + CAPILLARY BLOOD GLUCOSE (NO CHG), POC (02/14/2018 11:17 PM PDT) + +---------+ + + + | Component | Value | Ref Range | Performed | Pathologist | | | | | At | Signature | + +---------+ + + + | BLOOD | 169 (H) | 70 - 99 mg/dL | [facility] | | | GLUCOSE, | | | [place] | | | POC | | | [facility] | | | | | | OF CARE | | | | | | TESTS | | + +---------+ + + + + + | Specimen | + + | | + + + + + + + | Performing | Address | City/State/Zipcode | Phone Number | | Organization | | | | + + + + + | [facility] | [address] | [place], [place] | | | [facility] | [address] | [address] | | | TESTS | | | | + + + + + CAPILLARY BLOOD GLUCOSE (NO CHG), POC (02/14/2018 9:08 PM PDT) + +---------+ + + + | Component | Value | Ref Range | Performed | Pathologist | | | | | At | Signature | + +---------+ + + + | BLOOD | 126 (H) | 70 - 99 mg/dL | [facility] - | | | GLUCOSE, | | | [facility] | | | POC | | | [facility] | | | | | | OF CARE | | | | | | TESTS | | + +---------+ + + + + + | Specimen | + + | | + + + + + + + | Performing | Address | City/State/Zipcode | Phone Number | | Organization | | | | + + + + + | [facility] | [address] | [place], [place] | | | [facility] | [address] | [address] | | | TESTS | | | | + + + + + CAPILLARY BLOOD GLUCOSE (NO CHG), POC (02/14/2018 8:07 PM PDT) + +---------+ + + + | Component | Value | Ref Range | Performed | Pathologist | | | | | At | Signature | + +---------+ + + + | BLOOD | 132 (H) | 70 - 99 mg/dL | [facility] - | | | GLUCOSE, | | | [facility] | | | POC | | | [facility] | | | | | | OF CARE | | | | | | TESTS | | + +---------+ + + + + + | Specimen | + + | | + + + + + + + | Performing | Address | City/State/Zipcode | Phone Number | | Organization | | | | + + + + + | [facility] | [address] | [place], [place] | | | [facility] | [address] | [address] | | | TESTS | | | | + + + + + CAPILLARY BLOOD GLUCOSE (NO CHG), POC (02/14/2018 7:03 PM PDT) + +---------+ + + + | Component | Value | Ref Range | Performed | Pathologist | | | | | At | Signature | + +---------+ + + + | BLOOD | 141 (H) | 70 - 99 mg/dL | [facility] - | | | GLUCOSE, | | | [facility] | | | POC | | | [facility] | | | | | | OF CARE | | | | | | TESTS | | + +---------+ + + + + + | Specimen | + + | | + + + + + + + | Performing | Address | City/State/Zipcode | Phone Number | | Organization | | | | + + + + + | [facility] | [address] | [place], [place] | | | [facility] | [address] | [address] | | | TESTS | | | | + + + + + 12 LEAD ECG (02/14/2018 6:58 PM PDT) + + + + + + | Component | Value | Ref Range | Performed | Pathologist | | | | | At | Signature | + + + + + + | VENTRICULAR | 123 | bpm | [facility] | | | RATE | | | OF | | | | | | CARDIOLOGY | | + + + + + + | ATRIAL RATE | 57 | ms | [facility] | | | | | | OF | | | | | | CARDIOLOGY | | + + + + + + | P-R | 163 | ms | [facility] | | | INTERVAL | | | OF | | | | | | CARDIOLOGY | | + + + + + + | P AXIS | 44 | deg | [facility] | | | | | | OF | | | | | | CARDIOLOGY | | + + + + + + | QRS | 77 | ms | [facility] | | | DURATION | | | OF | | | | | | CARDIOLOGY | | + + + + + + | QT | 347 | ms | [facility] | | | | | | OF | | | | | | CARDIOLOGY | | + + + + + + | QTCB | 497 | ms | [facility] | | | | | | OF | | | | | | CARDIOLOGY | | + + + + + + | R AXIS | 268 | deg | [facility] | | | | | | OF | | | | | | CARDIOLOGY | | + + + + + + | T AXIS | 51 | deg | [facility] | | | | | | OF | | | | | | CARDIOLOGY | | + + + + + + | ECG | Sinus tachycardia | | [facility] | | | IMPRESSION | | | OF | | | | | | CARDIOLOGY | | + + + + + + | ECG | Atrial premature | | [facility] | | | IMPRESSION | complexes with aberrant | | OF | | | | conduction | | CARDIOLOGY | | + + + + + + | ECG | Low voltage, precordial | | [facility] | | | IMPRESSION | leads | | OF | | | | | | CARDIOLOGY | | + + + + + + | ECG | Anteroseptal infarct, | | [facility] | | | IMPRESSION | old- ABNORMAL ECG - | | OF | | | | | | CARDIOLOGY | | + + + + + + | ECG | Electronically signed | | [facility] | | | IMPRESSION | by: SHAHAB RENNER | | OF | | | | 02-16-2018 08:21:03 | | CARDIOLOGY | | + + + + + + + + | Specimen | + + | | + + + + + | Narrative | Performed At | + + + | | | + + + + + + + + | Performing | Address | City/State/Zipcode | Phone Number | | Organization | | | | + + + + + | [facility] | [address] | [place], [place] | | | CARDIOLOGY | [address] | [address] | | + + + + + MAGNESIUM, PLASMA (02/14/2018 6:29 PM PDT) + +-------+ + + + | Component | Value | Ref Range | Performed | Pathologist | | | | | At | Signature | + +-------+ + + + | MAGNESIUM,P | 2.2 | 1.6 - 2.6 mg/dL | [facility] | | | LASMA | | | LABORATORY | | | | | | SERVICES, | | | | | | CORE | | + +-------+ + + + + + | Specimen | + + | Blood | + + + + + | Narrative | Performed At | + + + | Reference range change effective 06/26/17. | [facility] | | | LABORATORY | | | SERVICES, CORE | + + + + + + + + | Performing | Address | City/State/Zipcode | Phone Number | | Organization | | | | + + + + + | [facility] | [address] | [place] [address] | | | SERVICES, CORE | [address] | | | + + + + + BASIC METABOLIC SET (NA, K, CL, TCO2, BUN, CR, GLU, CA) (02/14/2018 6:29 PM PDT) + + + + + + | Component | Value | Ref Range | Performed | Pathologist | | | | | At | Signature | + + + + + + | GLUCOSE, | 162 (H) | 70 - 99 mg/dL | [facility] | | | PLASMA | | | LABORATORY | | | (LAB) | | | SERVICES, | | | | | | CORE | | + + + + + + | BUN, PLASMA | 25 (H) | 6 - 20 mg/dL | [facility] | | | (LAB) | | | LABORATORY | | | | | | SERVICES, | | | | | | CORE | | + + + + + + | CREATININE | 1.38 (H) | 0.60 - 1.10 | [facility] | | | PLASMA | | mg/dL | LABORATORY | | | (LAB) | | | SERVICES, | | | | | | CORE | | + + + + + + | EGFR | 47 (L) | >60 mL/min | [facility] | | | - | | | LABORATORY | | | [place] | | | SERVICES, | | | | | | CORE | | + + + + + + | EGFR NON | 39 (L) | >60 mL/min | [facility] | | | -[facility] | | | LABORATORY | | | [place] | | | SERVICES, | | | | | | CORE | | + + + + + + | SODIUM, | 144 | 136 - 145 | [facility] | | | PLASMA | | mmol/L | LABORATORY | | | (LAB) | | | SERVICES, | | | | | | CORE | | + + + + + + | POTASSIUM, | 4.1 | 3.4 - 5.0 | [facility] | | | PLASMA | | mmol/L | LABORATORY | | | (LAB) | | | SERVICES, | | | | | | CORE | | + + + + + + | CHLORIDE, | 108 | 97 - 108 mmol/L | [facility] | | | PLASMA | | | LABORATORY | | | (LAB) | | | SERVICES, | | | | | | CORE | | + + + + + + | TOTAL CO2, | 28 | 21 - 32 mmol/L | [facility] | | | PLASMA | | | LABORATORY | | | (LAB) | | | SERVICES, | | | | | | CORE | | + + + + + + | CALCIUM, | 8.0 (L) | 8.6 - 10.2 | [facility] | | | PLASMA | | mg/dL | LABORATORY | | | (LAB) | | | SERVICES, | | | | | | CORE | | + + + + + + | ANION GAP | 8 | 4 - 11 mmol/L | [facility] | | | | | | LABORATORY | | | | | | SERVICES, | | | | | | CORE | | + + + + + + | POTASSIUM | No Hemo | | [facility] | | | CMNT | | | LABORATORY | | | | | | SERVICES, | | | | | | CORE | | + + + + + + + + | Specimen | + + | Blood | + + + + + | Narrative | Performed At | + + + | Adult glucose reference range change effective 7-17. GFR is | [facility] | | estimated using the MDRD equation recommended by the National Kidney | LABORATORY | | Disease Education Program. Estimated GFR Interpretive Information: | SERVICES, CORE | | <60 mL/min/1.73 sq m Chronic Kidney | | | Disease <15 mL/min/1.73 sq m Kidney | | | Failure Estimated GFR greater that 60 mL/min/1.73 sq m is of limited | | | clinical value. The MDRD equation is not valid in the following | | | situations: - Patients under 18 years of age - Severe malnutrition | | | or obesity - Vegetarian diet - Rapidly changing kidney function | | + + + + + + + + | Performing | Address | City/State/Zipcode | Phone Number | | Organization | | | | + + + + + | [facility] | [address] | [place] [address] | | | SERVICES, CORE | [address] | | | + + + + + CAPILLARY BLOOD GLUCOSE (NO CHG), POC (02/14/2018 5:53 PM PDT) + +---------+ + + + | Component | Value | Ref Range | Performed | Pathologist | | | | | At | Signature | + +---------+ + + + | BLOOD | 181 (H) | 70 - 99 mg/dL | [facility] - | | | GLUCOSE, | | | [place] | | | POC | | | [facility] | | | | | | OF CARE | | | | | | TESTS | | + +---------+ + + + + + | Specimen | + + | | + + + + + + + | Performing | Address | City/State/Zipcode | Phone Number | | Organization | | | | + + + + + | [facility] | [address] | [place], [place] | | | [facility] | [address] | [address] | | | TESTS | | | | + + + + + CAPILLARY BLOOD GLUCOSE (NO CHG), POC (02/14/2018 4:47 PM PDT) + +---------+ + + + | Component | Value | Ref Range | Performed | Pathologist | | | | | At | Signature | + +---------+ + + + | BLOOD | 188 (H) | 70 - 99 mg/dL | [facility] - | | | GLUCOSE, | | | [place] | | | POC | | | [facility] | | | | | | OF CARE | | | | | | TESTS | | + +---------+ + + + + + | Specimen | + + | | + + + + + + + | Performing | Address | City/State/Zipcode | Phone Number | | Organization | | | | + + + + + | [facility] | [address] | [place], [place] | | | [facility] | [address] | [address] | | | TESTS | | | | + + + + + CAPILLARY BLOOD GLUCOSE (NO CHG), POC (02/14/2018 3:50 PM PDT) + +---------+ + + + | Component | Value | Ref Range | Performed | Pathologist | | | | | At | Signature | + +---------+ + + + | BLOOD | 195 (H) | 70 - 99 mg/dL | [facility] - | | | GLUCOSE, | | | [place] | | | POC | | | [facility] | | | | | | OF CARE | | | | | | TESTS | | + +---------+ + + + + + | Specimen | + + | | + + + + + + + | Performing | Address | City/State/Zipcode | Phone Number | | Organization | | | | + + + + + | [facility] | [address] | [place], [place] | | | [facility] | [address] | [address] | | | TESTS | | | | + + + + + CAPILLARY BLOOD GLUCOSE (NO CHG), POC (02/14/2018 2:46 PM PDT) + +---------+ + + + | Component | Value | Ref Range | Performed | Pathologist | | | | | At | Signature | + +---------+ + + + | BLOOD | 182 (H) | 70 - 99 mg/dL | [facility] - | | | GLUCOSE, | | | [place] | | | POC | | | [facility] | | | | | | OF CARE | | | | | | TESTS | | + +---------+ + + + + + | Specimen | + + | | + + + + + + + | Performing | Address | City/State/Zipcode | Phone Number | | Organization | | | | + + + + + | [facility] | [address] | [place], [place] | | | [facility] | [address] | [address] | | | TESTS | | | | + + + + + CAPILLARY BLOOD GLUCOSE (NO CHG), POC (02/14/2018 1:38 PM PDT) + +---------+ + + + | Component | Value | Ref Range | Performed | Pathologist | | | | | At | Signature | + +---------+ + + + | BLOOD | 209 (H) | 70 - 99 mg/dL | [facility] - | | | GLUCOSE, | | | [place] | | | POC | | | [facility] | | | | | | OF CARE | | | | | | TESTS | | + +---------+ + + + + + | Specimen | + + | | + + + + + + + | Performing | Address | City/State/Zipcode | Phone Number | | Organization | | | | + + + + + | [facility] | [address] | [place], [place] | | | [facility] | [address] | [address] | | | TESTS | | | | + + + + + CAPILLARY BLOOD GLUCOSE (NO CHG), POC (02/14/2018 1:05 PM PDT) + +---------+ + + + | Component | Value | Ref Range | Performed | Pathologist | | | | | At | Signature | + +---------+ + + + | BLOOD | 205 (H) | 70 - 99 mg/dL | [facility] - | | | GLUCOSE, | | | [place] | | | POC | | | [facility] | | | | | | OF CARE | | | | | | TESTS | | + +---------+ + + + + + | Specimen | + + | | + + + + + + + | Performing | Address | City/State/Zipcode | Phone Number | | Organization | | | | + + + + + | [facility] | [address] | [place], [place] | | | [facility] | [address] | [address] | | | TESTS | | | | + + + + + CAPILLARY BLOOD GLUCOSE (NO CHG), POC (02/14/2018 12:00 PM PDT) + +---------+ + + + | Component | Value | Ref Range | Performed | Pathologist | | | | | At | Signature | + +---------+ + + + | BLOOD | 207 (H) | 70 - 99 mg/dL | [facility] | | | GLUCOSE, | | | [facility] | | | POC | | | [facility] | | | | | | OF CARE | | | | | | TESTS | | + +---------+ + + + + + | Specimen | + + | | + + + + + + + | Performing | Address | City/State/Zipcode | Phone Number | | Organization | | | | + + + + + | [facility] | [address] | [place], [place] | | | [facility] | [address] | [address] | | | TESTS | | | | + + + + + CULTURE, SPUTUM (02/14/2018 11:47 AM PDT) + + | Specimen | + + | Endotracheal fluid - | | Endotracheal tube | | tip | + + + + + | Narrative | Performed At | + + + | Culture Report: 1+ Oral Francisco Gram Stain: Rare squamous | [facility] - | | epithelial cells No polymorphonuclear cells No organisms seen | [facility] | | | [place] | + + + + + + + + | Performing | Address | City/State/Zipcode | Phone Number | | Organization | | | | + + + + + | [facility] | [address] | [place] [address] | | | [place] | | | | + + + + + CAPILLARY BLOOD GLUCOSE (NO CHG), POC (02/14/2018 10:55 AM PDT) + +---------+ + + + | Component | Value | Ref Range | Performed | Pathologist | | | | | At | Signature | + +---------+ + + + | BLOOD | 179 (H) | 70 - 99 mg/dL | [facility] - | | | GLUCOSE, | | | [place] | | | POC | | | [facility] | | | | | | OF CARE | | | | | | TESTS | | + +---------+ + + + + + | Specimen | + + | | + + + + + + + | Performing | Address | City/State/Zipcode | Phone Number | | Organization | | | | + + + + + | [facility] | [address] | [place], [place] | | | [facility] | [address] | [address] | | | TESTS | | | | + + + + + CAPILLARY BLOOD GLUCOSE (NO CHG), POC (02/14/2018 9:50 AM PDT) + +---------+ + + + | Component | Value | Ref Range | Performed | Pathologist | | | | | At | Signature | + +---------+ + + + | BLOOD | 162 (H) | 70 - 99 mg/dL | [facility] | | | GLUCOSE, | | | [place] | | | POC | | | [facility] | | | | | | OF CARE | | | | | | TESTS | | + +---------+ + + + + + | Specimen | + + | | + + + + + + + | Performing | Address | City/State/Zipcode | Phone Number | | Organization | | | | + + + + + | [facility] | [address] | [place], [place] | | | [facility] | [address] | [address] | | | TESTS | | | | + + + + + X-RAY PORTABLE CHEST 1 VIEW (02/14/2018 9:36 AM PDT) + + | Specimen | + + | | + + + + + | Narrative | Performed At | + + + | EXAM: ME CHEST 1 VIEW HISTORY: Fever of unknown origin. | [facility] | | COMPARISON: 02/13/2018. FINDINGS: Endotracheal tube tip | RADIOLOGY VOICE | | terminates 4 cm above the jim. Enteric tube courses below the | RECOGNITION | | diaphragm, out of the [id number]. Cardiomediastinal contour is | | | stable. Increased, dense retrocardiac consolidation. Right infrahilar | | | opacity and right lung groundglass is not significantly changed. No | | | large pleural effusion or pneumothorax. IMPRESSION: | | | Increased dense retrocardiac and stable infrahilar opacification, most | | | likely aspiration or developing pneumonia. I have personally | | | reviewed the images and, if necessary, edited the report. I agree | | | with the report as now presented. | | + + + + + | Procedure Note | + + | Service Account, Radiant Res In Interface - 02/14/2018 9:47 AM PDT EXAM: ME CHEST 1 | | VIEW HISTORY: Fever of unknown origin.COMPARISON: 02/13/2018.FINDINGS: Endotracheal tube | | tip terminates 4 cm above the jim. Enteric tube courses below the diaphragm, out of | | the [id number]. Cardiomediastinal contour is stable. Increased, dense retrocardiac | | consolidation. Right infrahilar opacity and right lung groundglass is not significantly | | changed. No large pleural effusion or pneumothorax. IMPRESSION: Increased dense | | retrocardiac and stable infrahilar opacification, most likely aspiration or developing | | pneumonia.I have personally reviewed the images and, if necessary, edited the report. I | | agree with the report as now presented. | |infrahilar opacity and right lung groundglass is not significantly changed. No large pleura l effusion or pneumothorax. | | | |IMPRESSION: | | | |Increased dense retrocardiac and stable infrahilar opacification, most likely aspiration or developing pneumonia. | | | | | |I have personally reviewed the images and, if necessary, edited the report. I agree with t he report as now presented. | + + + +---------+ + + | Performing | Address | City/State/Zipcode | Phone Number | | Organization | | | | + +---------+ + + | [facility] | | | | | VOICE RECOGNITION | | | | + +---------+ + + CULTURE, BLOOD BACTI & YEAST PATRICIA (02/14/2018 9:17 AM PDT) + + + + + + | Component | Value | Ref Range | Performed | Pathologist | | | | | At | Signature | + + + + + + | CULTURE | Final Report:No Bacteria | | [facility] | | | RESULT | or Yeast isolated at 5 | | LABORATORY | | | | days. | | SERVICES, | | | | | | CORE | | + + + + + + + + | Specimen | + + | Blood | + + + + + + + | Performing | Address | City/State/Zipcode | Phone Number | | Organization | | | | + + + + + | [facility] | [id number] | [place] [address] | | | SERVICES, [place] | [address] | | | + + + + + CULTURE, BLOOD BACTI & YEAST PATRICIA (02/14/2018 9:17 AM PDT) + + + + + + | Component | Value | Ref Range | Performed | Pathologist | | | | | At | Signature | + + + + + + | CULTURE | Final Report:No Bacteria | | [facility] | | | RESULT | or Yeast isolated at 5 | | LABORATORY | | | | days. | | SERVICES, | | | | | | CORE | | + + + + + + + + | Specimen | + + | Blood | + + + + + + + | Performing | Address | City/State/Zipcode | Phone Number | | Organization | | | | + + + + + | [facility] | [address] | [place] [address] | | | [place] | [address] | | | + + + + + CAPILLARY BLOOD GLUCOSE (NO CHG), POC (02/14/2018 8:47 AM PDT) + +---------+ + + + | Component | Value | Ref Range | Performed | Pathologist | | | | | At | Signature | + +---------+ + + + | BLOOD | 140 (H) | 70 - 99 mg/dL | [facility] - | | | GLUCOSE, | | | [facility] | | | POC | | | [facility] | | | | | | OF CARE | | | | | | TESTS | | + +---------+ + + + + + | Specimen | + + | | + + + + + + + | Performing | Address | City/State/Zipcode | Phone Number | | Organization | | | | + + + + + | [facility] | [address] | [place], [place] | | | [facility] | [address] | [address] | | | TESTS | | | | + + + + + CAPILLARY BLOOD GLUCOSE (NO CHG), POC (02/14/2018 7:36 AM PDT) + +---------+ + + + | Component | Value | Ref Range | Performed | Pathologist | | | | | At | Signature | + +---------+ + + + | BLOOD | 155 (H) | 70 - 99 mg/dL | [facility] - | | | GLUCOSE, | | | [facility] | | | POC | | | [facility] | | | | | | OF CARE | | | | | | TESTS | | + +---------+ + + + + + | Specimen | + + | | + + + + + + + | Performing | Address | City/State/Rust[place] | Phone Number | | Organization | | | | + + + + + | [facility] | [address] | [place], [place] | | | [facility] | [facility] | [phone] | | | TESTS | | | | + + + + + CAPILLARY BLOOD GLUCOSE (NO CHG) POC (02/14/2018 6:32 AM PDT) + +---------+ + + + | Component | Value | Ref Range | Performed | Pathologist | | | | | At | Signature | + +---------+ + + + | BLOOD | 138 (H) | 70 - 99 mg/dL | [facility] | | | GLUCOSE, | | | [place] | | | POC | | | [place] [place] | | | | | | OF CARE | | | | | | TESTS | | + +---------+ + + + + + | Specimen | + + | | + + + + + + + | Performing | Address | City/State/Zipcode | Phone Number | | Organization | | | | + + + + + | [facility] | [address] | [place], [place] | | | [facility] | [facility] | [address] | | | TESTS | | | | + + + + + CAPILLARY BLOOD GLUCOSE (NO CHG), POC (02/14/2018 5:04 AM PDT) + +---------+ + + + | Component | Value | Ref Range | Performed | Pathologist | | | | | At | Signature | + +---------+ + + + | BLOOD | 152 (H) | 70 - 99 mg/dL | [facility] - | | | GLUCOSE, | | | [place] | | | POC | | | [facility] | | | | | | OF CARE | | | | | | TESTS | | + +---------+ + + + + + | Specimen | + + | | + + + + + + + | Performing | Address | City/State/Zipcode | Phone Number | | Organization | | | | + + + + + | [facility] | [address] | [place], [place] | | | [facility] | [address] | [address] | | | TESTS | | | | + + + + + BLOOD GASES, ARTERIAL - LAB (02/14/2018 4:57 AM PDT) + + + + + + | Component | Value | Ref Range | Performed | Pathologist | | | | | At | Signature | + + + + + + | PH ARTERIAL | 7.45 (H) | 7.37 - 7.44 | [facility] | | | | | | LABORATORY | | | | | | SERVICES, | | | | | | CORE | | + + + + + + | PCO2 | 44 (H) | 32 - 43 mmHg | [facility] | | | ARTERIAL | | | LABORATORY | | | | | | SERVICES, | | | | | | CORE | | + + + + + + | PO2 | 64 (L) | 72 - 104 mmHg | [facility] | | | ARTERIAL | | | LABORATORY | | | | | | SERVICES, | | | | | | CORE | | + + + + + + | HCO3 | 30 (H) | 21 - 28 mmol/L | [facility] | | | ARTERIAL | | | LABORATORY | | | | | | SERVICES, | | | | | | CORE | | + + + + + + | TOTAL CO2 | 31 (H) | 22 - 28 mmol/L | [facility] | | | ARTERIAL | | | LABORATORY | | | | | | SERVICES, | | | | | | CORE | | + + + + + + | BASE EXCESS | 5.5 (H) | -2.0 - 2.0 | [facility] | | | ARTERIAL | | mmol/L | LABORATORY | | | | | | SERVICES, | | | | | | CORE | | + + + + + + | O2 SAT, | 94.2 | 92.0 - 98.0 % | [facility] | | | ARTERIAL | | | LABORATORY | | | | | | SERVICES, | | | | | | CORE | | + + + + + + + + | Specimen | + + | Blood | + + + + + + + | Performing | Address | City/State/Zipcode | Phone Number | | Organization | | | | + + + + + | [facility] | [address] | [place] [address] | | | [place] | [address] | | | + + + + + MAGNESIUM, PLASMA (02/14/2018 4:57 AM PDT) + +-------+ + + + | Component | Value | Ref Range | Performed | Pathologist | | | | | At | Signature | + +-------+ + + + | MAGNESIUM,P | 2.0 | 1.6 - 2.6 mg/dL | [facility] | | | [facility] | | | LABORATORY | | | | | | [place], | | | | | | CORE | | + +-------+ + + + + + | Specimen | + + | Blood | + + + + + | Narrative | Performed At | + + + | Reference range change effective 06/26/17. | [facility] | | | LABORATORY | | | [place] | + + + + + + + + | Performing | Address | City/State/Zipcode | Phone Number | | Organization | | | | + + + + + | [facility] | [address] | [place] [address] | | | [place], [place] | [address] | | | + + + + + RENAL FUNCTION SET (NA,K,CL,CO2,BUN,CREAT,GLUC,CA,PHOS,ALB ) (02/14/2018 4:57 AM PDT) + + + + + + | Component | Value | Ref Range | Performed | Pathologist | | | | | At | Signature | + + + + + + | GLUCOSE, | 143 (H) | 70 - 99 mg/dL | [facility] | | | PLASMA | | | LABORATORY | | | (LAB) | | | SERVICES, | | | | | | CORE | | + + + + + + | BUN, PLASMA | 23 (H) | 6 - 20 mg/dL | [facility] | | | (LAB) | | | LABORATORY | | | | | | SERVICES, | | | | | | CORE | | + + + + + + | CREATININE | 1.36 (H) | 0.60 - 1.10 | [facility] | | | PLASMA | | mg/dL | LABORATORY | | | (LAB) | | | SERVICES, | | | | | | CORE | | + + + + + + | EGFR | 48 (L) | >60 mL/min | [facility] | | | - | | | LABORATORY | | | [place] | | | SERVICES, | | | | | | CORE | | + + + + + + | EGFR NON | 39 (L) | >60 mL/min | [facility] | | | -[facility]SE[facility] | | | LABORATORY | | | [place] | | | SERVICES, | | | | | | CORE | | + + + + + + | SODIUM, | 145 | 136 - 145 | [facility] | | | PLASMA | | mmol/L | LABORATORY | | | (LAB) | | | SERVICES, | | | | | | CORE | | + + + + + + | POTASSIUM, | 3.3 (L) | 3.4 - 5.0 | [facility] | | | PLASMA | | mmol/L | LABORATORY | | | (LAB) | | | SERVICES, | | | | | | CORE | | + + + + + + | CHLORIDE, | 108 | 97 - 108 mmol/L | [facility] | | | PLASMA | | | LABORATORY | | | (LAB) | | | SERVICES, | | | | | | CORE | | + + + + + + | TOTAL CO2, | 28 | 21 - 32 mmol/L | [facility] | | | PLASMA | | | LABORATORY | | | (LAB) | | | SERVICES, | | | | | | CORE | | + + + + + + | CALCIUM, | 7.6 (L) | 8.6 - 10.2 | [facility] | | | PLASMA | | mg/dL | LABORATORY | | | (LAB) | | | SERVICES, | | | | | | CORE | | + + + + + + | CALCIUM(ALB | 9.1 | 8.6 - 10.2 | [facility] | | | CORRECTED) | | mg/dL | LABORATORY | | | | | | SERVICES, | | | | | | CORE | | + + + + + + | ALBUMIN, | 2.1 (L) | 3.5 - 4.7 g/dL | [facility] | | | PLASMA | | | LABORATORY | | | (LAB) | | | SERVICES, | | | | | | CORE | | + + + + + + | PHOSPHORUS, | 2.0 (L) | 2.4 - 4.7 mg/dL | [facility] | | | PLASMA | | | LABORATORY | | | (LAB) | | | SERVICES, | | | | | | CORE | | + + + + + + | POTASSIUM | No Hemo | | [facility] | | | CMNT | | | LABORATORY | | | | | | SERVICES, | | | | | | CORE | | + + + + + + | ANION GAP | 9 | 4 - 11 mmol/L | [facility] | | | | | | LABORATORY | | | | | | SERVICES, | | | | | | CORE | | + + + + + + | ANION | 13 (H) | 4 - 11 mmol/L | [facility] | | | GAP(ALB | | | LABORATORY | | | CORRECTED) | | | SERVICES, | | | | | | CORE | | + + + + + + + + | Specimen | + + | Blood | + + + + + | Narrative | Performed At | + + + | Adult glucose reference range change effective 7-12-17. GFR is | [facility] | | estimated using the MDRD equation recommended by the National Kidney | LABORATORY | | Disease Education Program. Estimated GFR Interpretive Information: | SERVICES, CORE | | <60 mL/min/1.73 sq m Chronic Kidney | | | Disease <15 mL/min/1.73 sq m Kidney | | | Failure Estimated GFR greater that 60 mL/min/1.73 sq m is of limited | | | clinical value. The MDRD equation is not valid in the following | | | situations: - Patients under 18 years of age - Severe malnutrition | | | or obesity - Vegetarian diet - Rapidly changing kidney function | | + + + + + + + + | Performing | Address | City/State/Zipcode | Phone Number | | Organization | | | | + + + + + | [facility] | [address] | [place] [address] | | | SERVICES, CORE | [address] | | | + + + + + CAPILLARY BLOOD GLUCOSE (NO CHG), POC (02/14/2018 3:00 AM PDT) + +---------+ + + + | Component | Value | Ref Range | Performed | Pathologist | | | | | At | Signature | + +---------+ + + + | BLOOD | 139 (H) | 70 - 99 mg/dL | [facility] - | | | GLUCOSE, | | | [place] | | | POC | | | [facility] | | | | | | OF CARE | | | | | | TESTS | | + +---------+ + + + + + | Specimen | + + | | + + + + + + + | Performing | Address | City/State/Zipcode | Phone Number | | Organization | | | | + + + + + | [facility] | [address] | [place], [place] | | | [facility] | [address] | [address] | | | TESTS | | | | + + + + + CAPILLARY BLOOD GLUCOSE (NO CHG), POC (02/14/2018 12:56 AM PDT) + +---------+ + + + | Component | Value | Ref Range | Performed | Pathologist | | | | | At | Signature | + +---------+ + + + | BLOOD | 147 (H) | 70 - 99 mg/dL | [facility] - | | | GLUCOSE, | | | [place] | | | POC | | | [facility] | | | | | | OF CARE | | | | | | TESTS | | + +---------+ + + + + + | Specimen | + + | | + + + + + + + | Performing | Address | City/State/Zipcode | Phone Number | | Organization | | | | + + + + + | [facility] | [address] | [place], [place] | | | [facility] | [address] | [address] | | | TESTS | | | | + + + + + CAPILLARY BLOOD GLUCOSE (NO CHG), POC (02/13/2018 11:51 PM PDT) + +---------+ + + + | Component | Value | Ref Range | Performed | Pathologist | | | | | At | Signature | + +---------+ + + + | BLOOD | 142 (H) | 70 - 99 mg/dL | [facility] - | | | GLUCOSE, | | | [place] | | | POC | | | [facility] | | | | | | OF CARE | | | | | | TESTS | | + +---------+ + + + + + | Specimen | + + | | + + + + + + + | Performing | Address | City/State/Zipcode | Phone Number | | Organization | | | | + + + + + | [facility] | [address] | [place], [place] | | | [facility] | [address] | [address] | | | TESTS | | | | + + + + + CAPILLARY BLOOD GLUCOSE (NO CHG), POC (02/13/2018 10:48 PM PDT) + +---------+ + + + | Component | Value | Ref Range | Performed | Pathologist | | | | | At | Signature | + +---------+ + + + | BLOOD | 150 (H) | 70 - 99 mg/dL | [facility] - | | | GLUCOSE, | | | [place] | | | POC | | | [facility] | | | | | | OF CARE | | | | | | TESTS | | + +---------+ + + + + + | Specimen | + + | | + + + + + + + | Performing | Address | City/State/Zipcode | Phone Number | | Organization | | | | + + + + + | [facility] | [address] | [place], [place] | | | [facility] | [address] | [address] | | | TESTS | | | | + + + + + CAPILLARY BLOOD GLUCOSE (NO CHG), POC (02/13/2018 9:43 PM PDT) + +---------+ + + + | Component | Value | Ref Range | Performed | Pathologist | | | | | At | Signature | + +---------+ + + + | BLOOD | 152 (H) | 70 - 99 mg/dL | [facility] - | | | GLUCOSE, | | | [place] | | | POC | | | [facility] | | | | | | OF CARE | | | | | | TESTS | | + +---------+ + + + + + | Specimen | + + | | + + + + + + + | Performing | Address | City/State/Zipcode | Phone Number | | Organization | | | | + + + + + | [facility] | [address] | [place], [place] | | | [facility] | [address] | [address] | | | TESTS | | | | + + + + + BLOOD GASES, ARTERIAL - LAB (02/13/2018 9:39 PM PDT) + + + + + + | Component | Value | Ref Range | Performed | Pathologist | | | | | At | Signature | + + + + + + | FIO2 | 0.40 | | [facility] | | | ARTERIAL | | | LABORATORY | | | | | | SERVICES, | | | | | | CORE | | + + + + + + | PH ARTERIAL | 7.46 (H) | 7.37 - 7.44 | [facility] | | | | | | LABORATORY | | | | | | SERVICES, | | | | | | CORE | | + + + + + + | PCO2 | 42 | 32 - 43 mmHg | [facility] | | | ARTERIAL | | | LABORATORY | | | | | | SERVICES, | | | | | | CORE | | + + + + + + | PO2 | 63 (L) | 72 - 104 mmHg | [facility] | | | ARTERIAL | | | LABORATORY | | | | | | SERVICES, | | | | | | CORE | | + + + + + + | HCO3 | 30 (H) | 21 - 28 mmol/L | [facility] | | | ARTERIAL | | | LABORATORY | | | | | | SERVICES, | | | | | | CORE | | + + + + + + | TOTAL CO2 | 31 (H) | 22 - 28 mmol/L | [facility] | | | ARTERIAL | | | LABORATORY | | | | | | SERVICES, | | | | | | CORE | | + + + + + + | BASE EXCESS | 5.8 (H) | -2.0 - 2.0 | [facility] | | | ARTERIAL | | mmol/L | LABORATORY | | | | | | SERVICES, | | | | | | CORE | | + + + + + + | O2 SAT, | 93.2 | 92.0 - 98.0 % | [facility] | | | ARTERIAL | | | LABORATORY | | | | | | SERVICES, | | | | | | CORE | | + + + + + + | PAO2/FIO2 | 158 (L) | >300 mmHg | [facility] | | | RATIO | | | LABORATORY | | | | | | SERVICES, | | | | | | CORE | | + + + + + + + + | Specimen | + + | Blood | + + + + + + + | Performing | Address | City/State/Zipcode | Phone Number | | Organization | | | | + + + + + | [facility] | [address] | [place] [address] | | | SERVICES, CORE | [address] | | | + + + + + CAPILLARY BLOOD GLUCOSE (NO CHG), POC (02/13/2018 7:48 PM PDT) + +---------+ + + + | Component | Value | Ref Range | Performed | Pathologist | | | | | At | Signature | + +---------+ + + + | BLOOD | 141 (H) | 70 - 99 mg/dL | [facility] - | | | GLUCOSE, | | | [place] | | | POC | | | [facility] | | | | | | OF CARE | | | | | | TESTS | | + +---------+ + + + + + | Specimen | + + | | + + + + + + + | Performing | Address | City/State/Zipcode | Phone Number | | Organization | | | | + + + + + | [facility] | [address] | [place], [place] | | | [facility] | [address] | [address] | | | TESTS | | | | + + + + + CAPILLARY BLOOD GLUCOSE (NO CHG), POC (02/13/2018 6:40 PM PDT) + +---------+ + + + | Component | Value | Ref Range | Performed | Pathologist | | | | | At | Signature | + +---------+ + + + | BLOOD | 145 (H) | 70 - 99 mg/dL | [facility] - | | | GLUCOSE, | | | [place] | | | POC | | | [facility] | | | | | | OF CARE | | | | | | TESTS | | + +---------+ + + + + + | Specimen | + + | | + + + + + + + | Performing | Address | City/State/Zipcode | Phone Number | | Organization | | | | + + + + + | [facility] | [address] | [place], [place] | | | [facility] | [facility] | [address] | | | TESTS | | | | + + + + + CAPILLARY BLOOD GLUCOSE (NO CHG), POC (02/13/2018 5:41 PM PDT) + +---------+ + + + | Component | Value | Ref Range | Performed | Pathologist | | | | | At | Signature | + +---------+ + + + | BLOOD | 147 (H) | 70 - 99 mg/dL | [facility] - | | | GLUCOSE, | | | [place] | | | POC | | | [facility] | | | | | | OF CARE | | | | | | TESTS | | + +---------+ + + + + + | Specimen | + + | | + + + + + + + | Performing | Address | City/State/Zipcode | Phone Number | | Organization | | | | + + + + + | [facility] | [address] | [place], [place] | | | [facility] | [facility] | [phone] | | | TESTS | | | | + + + + + CAPILLARY BLOOD GLUCOSE (NO CHG), POC (02/13/2018 4:32 PM PDT) + +---------+ + + + | Component | Value | Ref Range | Performed | Pathologist | | | | | At | Signature | + +---------+ + + + | BLOOD | 167 (H) | 70 - 99 mg/dL | [facility] - | | | GLUCOSE, | | | [place] | | | POC | | | [facility] | | | | | | OF CARE | | | | | | TESTS | | + +---------+ + + + + + | Specimen | + + | | + + + + + + + | Performing | Address | City/State/Zipcode | Phone Number | | Organization | | | | + + + + + | [facility] | [address] | [place], [place] | | | [facility] | [address] | [address] | | | TESTS | | | | + + + + + CAPILLARY BLOOD GLUCOSE (NO CHG), POC (02/13/2018 3:30 PM PDT) + +---------+ + + + | Component | Value | Ref Range | Performed | Pathologist | | | | | At | Signature | + +---------+ + + + | BLOOD | 151 (H) | 70 - 99 mg/dL | [facility] - | | | GLUCOSE, | | | [place] | | | POC | | | [facility] | | | | | | OF CARE | | | | | | TESTS | | + +---------+ + + + + + | Specimen | + + | | + + + + + + + | Performing | Address | City/State/Zipcode | Phone Number | | Organization | | | | + + + + + | [facility] | [address] | [place], [place] | | | [facility] | [facility] | [address] | | | TESTS | | | | + + + + + CAPILLARY BLOOD GLUCOSE (NO CHG), POC (02/13/2018 2:24 PM PDT) + +---------+ + + + | Component | Value | Ref Range | Performed | Pathologist | | | | | At | Signature | + +---------+ + + + | BLOOD | 171 (H) | 70 - 99 mg/dL | [facility] | | | GLUCOSE, | | | [place] | | | POC | | | [facility] | | | | | | OF CARE | | | | | | TESTS | | + +---------+ + + + + + | Specimen | + + | | + + + + + + + | Performing | Address | City/State/Zipcode | Phone Number | | Organization | | | | + + + + + | [facility] | [address] | [place], [place] | | | [facility] | [facility] | [address] | | | TESTS | | | | + + + + + CAPILLARY BLOOD GLUCOSE (NO CHG), POC (02/13/2018 1:14 PM PDT) + +---------+ + + + | Component | Value | Ref Range | Performed | Pathologist | | | | | At | Signature | + +---------+ + + + | BLOOD | 175 (H) | 70 - 99 mg/dL | [facility] - | | | GLUCOSE, | | | [place] | | | POC | | | [facility] | | | | | | OF CARE | | | | | | TESTS | | + +---------+ + + + + + | Specimen | + + | | + + + + + + + | Performing | Address | City/State/Zipcode | Phone Number | | Organization | | | | + + + + + | [facility] | [address] | [place], [place] | | | [facility] | [address] | [address] | | | TESTS | | | | + + + + + CAPILLARY BLOOD GLUCOSE (NO CHG), POC (02/13/2018 12:16 PM PDT) + +---------+ + + + | Component | Value | Ref Range | Performed | Pathologist | | | | | At | Signature | + +---------+ + + + | BLOOD | 153 (H) | 70 - 99 mg/dL | [facility] - | | | GLUCOSE, | | | [place] | | | POC | | | [facility] | | | | | | OF CARE | | | | | | TESTS | | + +---------+ + + + + + | Specimen | + + | | + + + + + + + | Performing | Address | City/State/Zipcode | Phone Number | | Organization | | | | + + + + + | [facility] | [address] | [place], [place] | | | [facility] | [facility] | [phone] | | | TESTS | | | | + + + + + BLOOD GASES, ARTERIAL - LAB (02/13/2018 11:05 AM PDT) + + + + + + | Component | Value | Ref Range | Performed | Pathologist | | | | | At | Signature | + + + + + + | FIO2 | 0.40 | | [facility] | | | ARTERIAL | | | LABORATORY | | | | | | SERVICES, | | | | | | CORE | | + + + + + + | PH ARTERIAL | 7.33 (L) | 7.37 - 7.44 | [facility] | | | | | | LABORATORY | | | | | | SERVICES, | | | | | | CORE | | + + + + + + | PCO2 | 56 (H) | 32 - 43 mmHg | [facility] | | | ARTERIAL | | | LABORATORY | | | | | | SERVICES, | | | | | | CORE | | + + + + + + | PO2 | 79 | 72 - 104 mmHg | [facility] | | | ARTERIAL | | | LABORATORY | | | | | | SERVICES, | | | | | | CORE | | + + + + + + | HCO3 | 29 (H) | 21 - 28 mmol/L | [facility] | | | ARTERIAL | | | LABORATORY | | | | | | SERVICES, | | | | | | CORE | | + + + + + + | TOTAL CO2 | 30 (H) | 22 - 28 mmol/L | [facility] | | | ARTERIAL | | | LABORATORY | | | | | | SERVICES, | | | | | | CORE | | + + + + + + | BASE EXCESS | 2.1 (H) | -2.0 - 2.0 | [facility] | | | ARTERIAL | | mmol/L | LABORATORY | | | | | | SERVICES, | | | | | | CORE | | + + + + + + | O2 SAT, | 96.3 | 92.0 - 98.0 % | [facility] | | | ARTERIAL | | | LABORATORY | | | | | | SERVICES, | | | | | | CORE | | + + + + + + | PAO2/FIO2 | 198 (L) | >300 mmHg | [facility] | | | RATIO | | | LABORATORY | | | | | | SERVICES, | | | | | | CORE | | + + + + + + + + | Specimen | + + | Blood | + + + + + + + | Performing | Address | City/State/Zipcode | Phone Number | | Organization | | | | + + + + + | [facility] | [address] | [place] [address] | | | SERVICES, CORE | [address] | | | + + + + + CAPILLARY BLOOD GLUCOSE (NO CHG), POC (02/13/2018 11:04 AM PDT) + +---------+ + + + | Component | Value | Ref Range | Performed | Pathologist | | | | | At | Signature | + +---------+ + + + | BLOOD | 156 (H) | 70 - 99 mg/dL | [facility] - | | | GLUCOSE, | | | [place] | | | POC | | | [facility] | | | | | | OF CARE | | | | | | TESTS | | + +---------+ + + + + + | Specimen | + + | | + + + + + + + | Performing | Address | City/State/Zipcode | Phone Number | | Organization | | | | + + + + + | [facility] | [address] | [place], [place] | | | [facility] | [address] | [address] | | | TESTS | | | | + + + + + X-RAY CHEST 1 VIEW (02/13/2018 10:11 AM PDT) + + | Specimen | + + | | + + + + + | Narrative | Performed At | + + + | EXAM: CHEST 1 VIEW HISTORY: Hypoxemia. Evaluate endotracheal | [facility] | | tube. COMPARISON: 02/12/18, 02/11/18 FINDINGS: The | RADIOLOGY VOICE | | endotracheal tube is unchanged in position, terminating 5 cm above the | RECOGNITION | | jim. Enteric tube courses below the diaphragm and terminates | | | outside the field of view. Evaluation of the lungs is somewhat | | | limited due to large amount of overlying soft tissue. There is | | | persistent left lower lobe retrocardiac consolidation, overall similar | | | compared with 02/11/18. There is right infrahilar consolidative | | | opacity, relatively similar to prior. Patchy opacity in the right | | | upper lobe has decreased in conspicuity. No large pleural effusion | | | or pneumothorax is evident. The cardiomediastinal silhouette is | | | stable, given differences in technique. IMPRESSION: Dense | | | retrocardiac opacification and nodular right infrahilar opacities most | | | suggestive of aspiration or pneumonia. I have personally | | | reviewed the images and, if necessary, edited the report. I agree | | | with the report as now presented. | | + + + + + | Procedure Note | + + | Service Account, [employer] [facility] In Interface - 02/13/2018 11:07 AM PDT EXAM: CHEST 1 | | VIEW HISTORY: Hypoxemia. Evaluate endotracheal tube.COMPARISON: 02/12/18, 02/11/18INDINGS: | | The endotracheal tube is unchanged in position, terminating 5 cm above the jim. | | Enteric tube courses below the diaphragm and terminates outside the field of view. | | Evaluation of the lungs is somewhat limited due to large amount of overlying soft | | tissue. There is persistent left lower lobe retrocardiac consolidation, overall similar | | compared with 02/11/18. There is right infrahilar consolidative opacity, relatively | | similar to prior. Patchy opacity in the right upper lobe has decreased in conspicuity. | | No large pleural effusion or pneumothorax is evident. The cardiomediastinal silhouette | | is stable, given differences in technique.IMPRESSION: Dense retrocardiac opacification | | and nodular right infrahilar opacities most suggestive of aspiration or pneumonia.I have | | personally reviewed the images and, if necessary, edited the report. I agree with the | | report as now presented. | | | |IMPRESSION: | | | |Dense retrocardiac opacification and nodular right infrahilar opacities most suggestive of aspiration or pneumonia. | | | | | |I have personally reviewed the images and, if necessary, edited the report. I agree with t he report as now presented. | + + + +---------+ + + | Performing | Address | City/State/Zipcode | Phone Number | | Organization | | | | + +---------+ + + | [facility] | | | | | VOICE RECOGNITION | | | | + +---------+ + + CAPILLARY BLOOD GLUCOSE (NO CHG), POC (02/13/2018 10:06 AM PDT) + +---------+ + + + | Component | Value | Ref Range | Performed | Pathologist | | | | | At | Signature | + +---------+ + + + | BLOOD | 154 (H) | 70 - 99 mg/dL | [facility] | | | GLU[facility], | | | [facility] | | | POC | | | [facility] | | | | | | [facility] | | | | | | TESTS | | + +---------+ + + + + + | Specimen | + + | | + + + + + + + | Performing | Address | City/State/Zipcode | Phone Number | | Organization | | | | + + + + + | [facility] | [address] | [place], [place] | | | [facility] | [address] | [phone] | | | TESTS | | | | + + + + + CAPILLARY BLOOD GLUCOSE (NO CHG), POC (02/13/2018 9:04 AM PDT) + +---------+ + + + | Component | Value | Ref Range | Performed | Pathologist | | | | | At | Signature | + +---------+ + + + | BLOOD | 155 (H) | 70 - 99 mg/dL | [facility] | | | GLU[facility], | | | [facility] | | | POC | | | [facility] | | | | | | [facility]ARE | | | | | | TESTS | | + +---------+ + + + + + | Specimen | + + | | + + + + + + + | Performing | Address | City/State/Zipcode | Phone Number | | Organization | | | | + + + + + | [facility] | [address] | [place], [place] | | | [facility] | [facility] | [phone] | | | TESTS | | | | + + + + + CAPILLARY BLOOD GLUCOSE (NO CHG), POC (02/13/2018 7:46 AM PDT) + +---------+ + + + | Component | Value | Ref Range | Performed | Pathologist | | | | | At | Signature | + +---------+ + + + | BLOOD | 154 (H) | 70 - 99 mg/dL | [facility] | | | GLU[facility], | | | [facility] | | | POC | | | [facility] | | | | | | [facility] | | | | | | TESTS | | + +---------+ + + + + + | Specimen | + + | | + + + + + + + | Performing | Address | City/State/Zipcode | Phone Number | | Organization | | | | + + + + + | [facility] | [address] | [place], [place] | | | [facility] | [address] | [address] | | | TESTS | | | | + + + + + CAPILLARY BLOOD GLUCOSE (NO CHG), POC (02/13/2018 6:41 AM PDT) + +---------+ + + + | Component | Value | Ref Range | Performed | Pathologist | | | | | At | Signature | + +---------+ + + + | BLOOD | 141 (H) | 70 - 99 mg/dL | [facility] | | | GLU[facility], | | | [facility] | | | POC | | | [facility] | | | | | | [facility] | | | | | | TESTS | | + +---------+ + + + + + | Specimen | + + | | + + + + + + + | Performing | Address | City/State/Zipcode | Phone Number | | Organization | | | | + + + + + | [facility] | [address] | [place], [place] | | | [facility] | [address] | [address] | | | TESTS | | | | + + + + + CAPILLARY BLOOD GLUCOSE (NO CHG), POC (02/13/2018 5:29 AM PDT) + +---------+ + + + | Component | Value | Ref Range | Performed | Pathologist | | | | | At | Signature | + +---------+ + + + | BLOOD | 160 (H) | 70 - 99 mg/dL | [facility] | | | GLUCOSE, | | | [facility] | | | POC | | | [facility] | | | | | | OF CARE | | | | | | TESTS | | + +---------+ + + + + + | Specimen | + + | | + + + + + + + | Performing | Address | City/State/Zipcode | Phone Number | | Organization | | | | + + + + + | [facility] | [address] | [place], [place] | | | [facility] | [address] | [address] | | | TESTS | | | | + + + + + BLOOD GASES, ARTERIAL - LAB (02/13/2018 5:29 AM PDT) + + + + + + | Component | Value | Ref Range | Performed | Pathologist | | | | | At | Signature | + + + + + + | FIO2 | 0.50 | | [facility] | | | ARTERIAL | | | LABORATORY | | | | | | SERVICES, | | | | | | CORE | | + + + + + + | PH ARTERIAL | 7.34 (L) | 7.37 - 7.44 | [facility] | | | | | | LABORATORY | | | | | | SERVICES, | | | | | | CORE | | + + + + + + | PCO2 | 55 (H) | 32 - 43 mmHg | [facility] | | | ARTERIAL | | | LABORATORY | | | | | | SERVICES, | | | | | | CORE | | + + + + + + | PO2 | 74 | 72 - 104 mmHg | [facility] | | | ARTERIAL | | | LABORATORY | | | | | | SERVICES, | | | | | | CORE | | + + + + + + | HCO3 | 29 (H) | 21 - 28 mmol/L | [facility] | | | ARTERIAL | | | LABORATORY | | | | | | SERVICES, | | | | | | CORE | | + + + + + + | TOTAL CO2 | 31 (H) | 22 - 28 mmol/L | [facility] | | | ARTERIAL | | | LABORATORY | | | | | | SERVICES, | | | | | | CORE | | + + + + + + | BASE EXCESS | 2.7 (H) | -2.0 - 2.0 | [facility] | | | ARTERIAL | | mmol/L | LABORATORY | | | | | | SERVICES, | | | | | | CORE | | + + + + + + | O2 SAT, | 95.3 | 92.0 - 98.0 % | [facility] | | | ARTERIAL | | | LABORATORY | | | | | | SERVICES, | | | | | | CORE | | + + + + + + | PAO2/FIO2 | 148 (L) | >300 mmHg | [facility] | | | RATIO | | | LABORATORY | | | | | | SERVICES, | | | | | | CORE | | + + + + + + + + | Specimen | + + | Blood | + + + + + + + | Performing | Address | City/State/Zipcode | Phone Number | | Organization | | | | + + + + + | [facility] | [address] | [place] [address] | | | SERVICES, CORE | [address] | | | + + + + + CAPILLARY BLOOD GLUCOSE (NO CHG), POC (02/13/2018 4:10 AM PDT) + +---------+ + + + | Component | Value | Ref Range | Performed | Pathologist | | | | | At | Signature | + +---------+ + + + | BLOOD | 156 (H) | 70 - 99 mg/dL | [facility] - | | | GLUCOSE, | | | [facility] | | | POC | | | [facility] | | | | | | OF CARE | | | | | | TESTS | | + +---------+ + + + + + | Specimen | + + | | + + + + + + + | Performing | Address | City/State/Zipcode | Phone Number | | Organization | | | | + + + + + | [facility] | [address] | [place], [place] | | | [facility] | [address] | [address] | | | TESTS | | | | + + + + + CAPILLARY BLOOD GLUCOSE (NO CHG), POC (02/13/2018 3:06 AM PDT) + +---------+ + + + | Component | Value | Ref Range | Performed | Pathologist | | | | | At | Signature | + +---------+ + + + | BLOOD | 165 (H) | 70 - 99 mg/dL | [facility] | | | GLUCOSE, | | | [facility] | | | POC | | | [facility] | | | | | | OF CARE | | | | | | TESTS | | + +---------+ + + + + + | Specimen | + + | | + + + + + + + | Performing | Address | City/State/Zipcode | Phone Number | | Organization | | | | + + + + + | [facility] | [address] | [place], [place] | | | [facility] | [address] | [address] | | | TESTS | | | | + + + + + CAPILLARY BLOOD GLUCOSE (NO CHG), POC (02/13/2018 1:59 AM PDT) + +---------+ + + + | Component | Value | Ref Range | Performed | Pathologist | | | | | At | Signature | + +---------+ + + + | BLOOD | 164 (H) | 70 - 99 mg/dL | [facility] | | | GLUCOSE, | | | [facility] | | | POC | | | [facility] | | | | | | OF CARE | | | | | | TESTS | | + +---------+ + + + + + | Specimen | + + | | + + + + + + + | Performing | Address | City/State/Zipcode | Phone Number | | Organization | | | | + + + + + | [facility] | [address] | [place], [place] | | | [facility] | [address] | [address] | | | TESTS | | | | + + + + + CBC (HEMOGRAM) ONLY (02/13/2018 1:34 AM PDT) + + + + + + | Component | Value | Ref Range | Performed | Pathologist | | | | | At | Signature | + + + + + + | WHITE CELL | 7.38 | 3.50 - 10.80 | [facility] | | | COUNT | | K/cu mm | LABORATORY | | | | | | SERVICES, | | | | | | CORE | | + + + + + + | RED CELL | 4.05 | 4.00 - 5.20 | [facility] | | | COUNT | | M/cu mm | LABORATORY | | | | | | SERVICES, | | | | | | CORE | | + + + + + + | HEMOGLOBIN | 11.4 (L) | 12.0 - 16.0 | [facility] | | | | | g/dL | LABORATORY | | | | | | SERVICES, | | | | | | CORE | | + + + + + + | HEMATOCRIT | 36.2 | 36.0 - 46.0 % | [facility] | | | | | | LABORATORY | | | | | | SERVICES, | | | | | | CORE | | + + + + + + | MCV | 89.4 | 80.0 - 96.0 fL | [facility] | | | | | | LABORATORY | | | | | | SERVICES, | | | | | | CORE | | + + + + + + | MCHC | 31.5 | 33.0 - 35.5 | [facility] | | | | | g/dL | LABORATORY | | | | | | SERVICES, | | | | | | CORE | | + + + + + + | RDW SD | 48.3 (H) | 35.1 - 46.3 fL | [facility] | | | | | | LABORATORY | | | | | | SERVICES, | | | | | | CORE | | + + + + + + | PLATELET | 189 | 150 - 400 K/cu | [facility] | | | COUNT | | mm | LABORATORY | | | | | | SERVICES, | | | | | | CORE | | + + + + + + | MPV | 9.7 | 9.7 - 12.3 fL | [facility] | | | | | | LABORATORY | | | | | | SERVICES, | | | | | | CORE | | + + + + + + | NRBC% | 0.0 | 0.0 - 0.3 % | [facility] | | | | | | LABORATORY | | | | | | SERVICES, | | | | | | CORE | | + + + + + + | NRBC# | 0.00 | 0.00 - 0.02 | [facility] | | | | | K/cu mm | LABORATORY | | | | | | SERVICES, | | | | | | CORE | | + + + + + + + + | Specimen | + + | Blood | + + + + + + + | Performing | Address | City/State/Zipcode | Phone Number | | Organization | | | | + + + + + | [facility] | [address] | [place] [address] | | | SERVICES, CORE | [address] | | | + + + + + BLOOD GASES, ARTERIAL - LAB (02/13/2018 1:34 AM PDT) + + + + + + | Component | Value | Ref Range | Performed | Pathologist | | | | | At | Signature | + + + + + + | FIO2 | 0.50 | | [facility] | | | ARTERIAL | | | LABORATORY | | | | | | SERVICES, | | | | | | CORE | | + + + + + + | PH ARTERIAL | 7.34 (L) | 7.37 - 7.44 | [facility] | | | | | | LABORATORY | | | | | | SERVICES, | | | | | | CORE | | + + + + + + | PCO2 | 56 (H) | 32 - 43 mmHg | [facility] | | | ARTERIAL | | | LABORATORY | | | | | | SERVICES, | | | | | | CORE | | + + + + + + | PO2 | 67 (L) | 72 - 104 mmHg | [facility] | | | ARTERIAL | | | LABORATORY | | | | | | SERVICES, | | | | | | CORE | | + + + + + + | HCO3 | 29 (H) | 21 - 28 mmol/L | [facility] | | | ARTERIAL | | | LABORATORY | | | | | | SERVICES, | | | | | | CORE | | + + + + + + | TOTAL CO2 | 31 (H) | 22 - 28 mmol/L | [facility] | | | ARTERIAL | | | LABORATORY | | | | | | SERVICES, | | | | | | CORE | | + + + + + + | BASE EXCESS | 3.0 (H) | -2.0 - 2.0 | [facility] | | | ARTERIAL | | mmol/L | LABORATORY | | | | | | SERVICES, | | | | | | CORE | | + + + + + + | O2 SAT, | 94.0 | 92.0 - 98.0 % | [facility] | | | ARTERIAL | | | LABORATORY | | | | | | SERVICES, | | | | | | CORE | | + + + + + + | PAO2/FIO2 | 134 (L) | >300 mmHg | [facility] | | | RATIO | | | LABORATORY | | | | | | SERVICES, | | | | | | CORE | | + + + + + + + + | Specimen | + + | Blood | + + + + + + + | Performing | Address | City/State/Zipcode | Phone Number | | Organization | | | | + + + + + | [facility] | [address] | [place] [address] | | | SERVICES, CORE | [address] | | | + + + + + TRIGLYCERIDES, PLASMA (02/13/2018 1:34 AM PDT) + +---------+ + + + | Component | Value | Ref Range | Performed | Pathologist | | | | | At | Signature | + +---------+ + + + | TRIGLYCERID | 305 (H) | <150 mg/dL | [facility] | | | ES | | | LABORATORY | | | | | | SERVICES, | | | | | | CORE | | + +---------+ + + + + + | Specimen | + + | Blood | + + + + + | Narrative | Performed At | + + + | Triglyceride Reference Range: Normal: | [facility] | | <150 mg/dL Borderline High: 150-199 mg/dL | LABORATORY | | High: 200-499 mg/dL Very | [facility], C[facility] | | High: >=500 mg/dL | | + + + + + + + + | Performing | Address | City/State/Zipcode | Phone Number | | Organization | | | | + + + + + | [facility] | [address] | [place] [address] | | | [facility] | [address] | | | + + + + + MAGNESIUM, PLASMA (02/13/2018 1:34 AM PDT) + +-------+ + + + | Component | Value | Ref Range | Performed | Pathologist | | | | | At | Signature | + +-------+ + + + | MAGNESIUM,P | 2.1 | 1.6 - 2.6 mg/dL | [facility] | | | LASMA | | | LABORATORY | | | | | | SERVICES, | | | | | | CORE | | + +-------+ + + + + + | Specimen | + + | Blood | + + + + + | Narrative | Performed At | + + + | Reference range change effective 06/26/17. | [facility] | | | LABORATORY | | | [facility] | + + + + + + + + | Performing | Address | City/State/Zipcode | Phone Number | | Organization | | | | + + + + + | [facility] | [address] [facility] | [place] [address] | | | SERVICES, [place] | [address] | | | + + + + + RENAL FUNCTION SET (NA,K,CL,CO2,BUN,CREAT,GLUC,CA,PHOS,ALB ) (02/13/2018 1:34 AM PDT) + + + + + + | Component | Value | Ref Range | Performed | Pathologist | | | | | At | Signature | + + + + + + | GLUCOSE, | 170 (H) | 70 - 99 mg/dL | [facility] | | | PLASMA | | | LABORATORY | | | (LAB) | | | SERVICES, | | | | | | CORE | | + + + + + + | BUN, PLASMA | 23 (H) | 6 - 20 mg/dL | [facility] | | | (LAB) | | | LABORATORY | | | | | | SERVICES, | | | | | | CORE | | + + + + + + | CREATININE | 1.48 (H) | 0.60 - 1.10 | [facility] | | | PLASMA | | mg/dL | LABORATORY | | | (LAB) | | | SERVICES, | | | | | | CORE | | + + + + + + | EGFR | 43 (L) | >60 mL/min | [facility] | | | - | | | LABORATORY | | | [place] | | | SERVICES, | | | | | | CORE | | + + + + + + | EGFR NON | 36 (L) | >60 mL/min | [facility] | | | -[facility] | | | LABORATORY | | | [facility] | | | SERVICES, | | | | | | CORE | | + + + + + + | SODIUM, | 144 | 136 - 145 | [facility] | | | PLASMA | | mmol/L | LABORATORY | | | (LAB) | | | SERVICES, | | | | | | CORE | | + + + + + + | POTASSIUM, | 3.9 | 3.4 - 5.0 | [facility] | | | PLASMA | | mmol/L | LABORATORY | | | (LAB) | | | SERVICES, | | | | | | CORE | | + + + + + + | CHLORIDE, | 106 | 97 - 108 mmol/L | [facility] | | | PLASMA | | | LABORATORY | | | (LAB) | | | SERVICES, | | | | | | CORE | | + + + + + + | TOTAL CO2, | 28 | 21 - 32 mmol/L | [facility] | | | PLASMA | | | LABORATORY | | | (LAB) | | | SERVICES, | | | | | | CORE | | + + + + + + | CALCIUM, | 7.2 (L) | 8.6 - 10.2 | [facility] | | | PLASMA | | mg/dL | LABORATORY | | | (LAB) | | | SERVICES, | | | | | | CORE | | + + + + + + | CALCIUM(ALB | 8.7 | 8.6 - 10.2 | [facility] | | | CORRECTED) | | mg/dL | LABORATORY | | | | | | SERVICES, | | | | | | CORE | | + + + + + + | ALBUMIN, | 2.1 (L) | 3.5 - 4.7 g/dL | [facility] | | | PLASMA | | | LABORATORY | | | (LAB) | | | SERVICES, | | | | | | CORE | | + + + + + + | PHOSPHORUS, | 3.4 | 2.4 - 4.7 mg/dL | [facility] | | | PLASMA | | | LABORATORY | | | (LAB) | | | SERVICES, | | | | | | CORE | | + + + + + + | POTASSIUM | No Hemo | | [facility] | | | CMNT | | | LABORATORY | | | | | | SERVICES, | | | | | | CORE | | + + + + + + | ANION GAP | 10 | 4 - 11 mmol/L | [facility] | | | | | | LABORATORY | | | | | | SERVICES, | | | | | | CORE | | + + + + + + | ANION | 14 (H) | 4 - 11 mmol/L | [facility] | | | GAP(ALB | | | LABORATORY | | | CORRECTED) | | | SERVICES, | | | | | | CORE | | + + + + + + + + | Specimen | + + | Blood | + + + + + | Narrative | Performed At | + + + | Adult glucose reference range change effective 7-12-17. GFR is | [facility] | | estimated using the MDRD equation recommended by the National Kidney | LABORATORY | | Disease Education Program. Estimated GFR Interpretive Information: | SERVICES, CORE | | <60 mL/min/1.73 sq m Chronic Kidney | | | Disease <15 mL/min/1.73 sq m Kidney | | | Failure Estimated GFR greater that 60 mL/min/1.73 sq m is of limited | | | clinical value. The MDRD equation is not valid in the following | | | situations: - Patients under 18 years of age - Severe malnutrition | | | or obesity - Vegetarian diet - Rapidly changing kidney function | | + + + + + + + + | Performing | Address | City/State/Zipcode | Phone Number | | Organization | | | | + + + + + | [facility] | [address] [facility] | [place] [address] | | | SERVICES, CORE | [address] | | | + + + + + CAPILLARY BLOOD GLUCOSE (NO CHG), POC (02/13/2018 12:55 AM PDT) + +---------+ + + + | Component | Value | Ref Range | Performed | Pathologist | | | | | At | Signature | + +---------+ + + + | BLOOD | 181 (H) | 70 - 99 mg/dL | [facility] - | | | GLUCOSE, | | | [facility] | | | POC | | | [facility] | | | | | | OF CARE | | | | | | TESTS | | + +---------+ + + + + + | Specimen | + + | | + + + + + + + | Performing | Address | City/State/Zipcode | Phone Number | | Organization | | | | + + + + + | [facility] | [address] | [place], [place] | | | [facility] | [facility] | [phone] | | | TESTS | | | | + + + + + CAPILLARY BLOOD GLUCOSE (NO CHG) POC (02/12/2018 11:41 PM PDT) + +---------+ + + + | Component | Value | Ref Range | Performed | Pathologist | | | | | At | Signature | + +---------+ + + + | BLOOD | 164 (H) | 70 - 99 mg/dL | [facility] | | | GLUCOSE, | | | [facility] | | | POC | | | [facility] | | | | | | OF CARE | | | | | | TESTS | | + +---------+ + + + + + | Specimen | + + | | + + + + + + + | Performing | Address | City/State/Zipcode | Phone Number | | Organization | | | | + + + + + | [facility] | [address] | [place], [place] | | | [facility] | [facility] | [phone] | | | TESTS | | | | + + + + + CAPILLARY BLOOD GLUCOSE (NO CHG), POC (02/12/2018 10:37 PM PDT) + +---------+ + + + | Component | Value | Ref Range | Performed | Pathologist | | | | | At | Signature | + +---------+ + + + | BLOOD | 174 (H) | 70 - 99 mg/dL | [facility] - | | | GLUCOSE, | | | [facility] | | | POC | | | [facility] | | | | | | OF CARE | | | | | | TESTS | | + +---------+ + + + + + | Specimen | + + | | + + + + + + + | Performing | Address | City/State/Zipcode | Phone Number | | Organization | | | | + + + + + | [facility] | [address] | [place], [place] | | | [facility] | [address] | [address] | | | TESTS | | | | + + + + + CAPILLARY BLOOD GLUCOSE (NO CHG), POC (02/12/2018 9:22 PM PDT) + +---------+ + + + | Component | Value | Ref Range | Performed | Pathologist | | | | | At | Signature | + +---------+ + + + | BLOOD | 181 (H) | 70 - 99 mg/dL | [facility] | | | GLUCOSE, | | | [facility] | | | POC | | | [facility] | | | | | | OF CARE | | | | | | TESTS | | + +---------+ + + + + + | Specimen | + + | | + + + + + + + | Performing | Address | City/State/Zipcode | Phone Number | | Organization | | | | + + + + + | [facility] | [address] | [place], [place] | | | [facility] | [facility] | [phone] | | | TESTS | | | | + + + + + CAPILLARY BLOOD GLUCOSE (NO CHG) POC (02/12/2018 8:18 PM PDT) + +---------+ + + + | Component | Value | Ref Range | Performed | Pathologist | | | | | At | Signature | + +---------+ + + + | BLOOD | 157 (H) | 70 - 99 mg/dL | [facility] - | | | GLUCOSE, | | | [facility] | | | POC | | | [facility] | | | | | | OF CARE | | | | | | TESTS | | + +---------+ + + + + + | Specimen | + + | | + + + + + + + | Performing | Address | City/State/Zipcode | Phone Number | | Organization | | | | + + + + + | [facility] | [address] | [place], [place] | | | [facility] | [address] | [address] | | | TESTS | | | | + + + + + BASIC METABOLIC SET (NA, K, CL, TCO2, BUN, CR, GLU, CA) (02/12/2018 8:05 PM PDT) + + + + + + | Component | Value | Ref Range | Performed | Pathologist | | | | | At | Signature | + + + + + + | GLUCOSE, | 168 (H) | 70 - 99 mg/dL | [facility] | | | PLASMA | | | LABORATORY | | | (LAB) | | | SERVICES, | | | | | | CORE | | + + + + + + | BUN, PLASMA | 23 (H) | 6 - 20 mg/dL | [facility] | | | (LAB) | | | LABORATORY | | | | | | SERVICES, | | | | | | CORE | | + + + + + + | CREATININE | 1.56 (H) | 0.60 - 1.10 | [facility] | | | PLASMA | | mg/dL | LABORATORY | | | (LAB) | | | SERVICES, | | | | | | CORE | | + + + + + + | EGFR | 41 (L) | >60 mL/min | [facility] | | | - | | | LABORATORY | | | [place] | | | SERVICES, | | | | | | CORE | | + + + + + + | EGFR NON | 34 (L) | >60 mL/min | [facility] | | | -[facility] | | | LABORATORY | | | [facility] | | | SERVICES, | | | | | | CORE | | + + + + + + | SODIUM, | 143 | 136 - 145 | [facility] | | | PLASMA | | mmol/L | LABORATORY | | | (LAB) | | | SERVICES, | | | | | | CORE | | + + + + + + | POTASSIUM, | 3.8 | 3.4 - 5.0 | [facility] | | | PLASMA | | mmol/L | LABORATORY | | | (LAB) | | | SERVICES, | | | | | | CORE | | + + + + + + | CHLORIDE, | 107 | 97 - 108 mmol/L | [facility] | | | PLASMA | | | LABORATORY | | | (LAB) | | | SERVICES, | | | | | | CORE | | + + + + + + | TOTAL CO2, | 27 | 21 - 32 mmol/L | [facility] | | | PLASMA | | | LABORATORY | | | (LAB) | | | SERVICES, | | | | | | CORE | | + + + + + + | CALCIUM, | 7.1 (L) | 8.6 - 10.2 | [facility] | | | PLASMA | | mg/dL | LABORATORY | | | (LAB) | | | SERVICES, | | | | | | CORE | | + + + + + + | ANION GAP | 9 | 4 - 11 mmol/L | [facility] | | | | | | LABORATORY | | | | | | SERVICES, | | | | | | CORE | | + + + + + + | POTASSIUM | No Hemo | | [facility] | | | CMNT | | | LABORATORY | | | | | | SERVICES, | | | | | | CORE | | + + + + + + + + | Specimen | + + | Blood | + + + + + | Narrative | Performed At | + + + | Adult glucose reference range change effective 712-17. GFR is | [facility] | | estimated using the MDRD equation recommended by the National Kidney | LABORATORY | | Disease Education Program. Estimated GFR Interpretive Information: | SERVICES, CORE | | <60 mL/min/1.73 sq m Chronic Kidney | | | Disease <15 mL/min/1.73 sq m Kidney | | | Failure Estimated GFR greater that 60 mL/min/1.73 sq m is of limited | | | clinical value. The MDRD equation is not valid in the following | | | situations: - Patients under 18 years of age - Severe malnutrition | | | or obesity - Vegetarian diet - Rapidly changing kidney function | | + + + + + + + + | Performing | Address | City/State/Zipcode | Phone Number | | Organization | | | | + + + + + | [facility] | [address] | [place] [address] | | | SERVICES, CORE | [address] | | | + + + + + MAGNESIUM, PLASMA (02/12/2018 8:05 PM PDT) + +-------+ + + + | Component | Value | Ref Range | Performed | Pathologist | | | | | At | Signature | + +-------+ + + + | MAGNESIUM,P | 2.1 | 1.6 - 2.6 mg/dL | [facility] | | | LASMA | | | LABORATORY | | | | | | SERVICES, | | | | | | CORE | | + +-------+ + + + + + | Specimen | + + | Blood | + + + + + | Narrative | Performed At | + + + | Reference range change effective 8/15/17. | [facility] | | | LABORATORY | | | SERVICES, CORE | + + + + + + + + | Performing | Address | City/State/Zipcode | Phone Number | | Organization | | | | + + + + + | [facility] | [address] | [place] [address] | | | [facility] | [address] | | | + + + + + CAPILLARY BLOOD GLUCOSE (NO CHG), POC (02/12/2018 7:12 PM PDT) + +---------+ + + + | Component | Value | Ref Range | Performed | Pathologist | | | | | At | Signature | + +---------+ + + + | BLOOD | 164 (H) | 70 - 99 mg/dL | [facility] - | | | GLUCOSE, | | | [facility] | | | POC | | | [facility] | | | | | | OF CARE | | | | | | TESTS | | + +---------+ + + + + + | Specimen | + + | | + + + + + + + | Performing | Address | City/State/Zipcode | Phone Number | | Organization | | | | + + + + + | [facility] | [address] | [place] | | | [facility] | [address] | [address] | | | TESTS | | | | + + + + + BLOOD GASES, ARTERIAL - LAB (02/12/2018 7:11 PM PDT) + + + + + + | Component | Value | Ref Range | Performed | Pathologist | | | | | At | Signature | + + + + + + | FIO2 | 0.60 | | [facility] | | | ARTERIAL | | | LABORATORY | | | | | | SERVICES, | | | | | | CORE | | + + + + + + | PH ARTERIAL | 7.35 (L) | 7.37 - 7.44 | [facility] | | | | | | LABORATORY | | | | | | SERVICES, | | | | | | CORE | | + + + + + + | PCO2 | 54 (H) | 32 - 43 mmHg | [facility] | | | ARTERIAL | | | LABORATORY | | | | | | SERVICES, | | | | | | CORE | | + + + + + + | PO2 | 65 (L) | 72 - 104 mmHg | [facility] | | | ARTERIAL | | | LABORATORY | | | | | | SERVICES, | | | | | | CORE | | + + + + + + | HCO3 | 29 (H) | 21 - 28 mmol/L | [facility] | | | ARTERIAL | | | LABORATORY | | | | | | SERVICES, | | | | | | CORE | | + + + + + + | TOTAL CO2 | 31 (H) | 22 - 28 mmol/L | [facility] | | | ARTERIAL | | | LABORATORY | | | | | | SERVICES, | | | | | | CORE | | + + + + + + | BASE EXCESS | 2.9 (H) | -2.0 - 2.0 | [facility] | | | ARTERIAL | | mmol/L | LABORATORY | | | | | | SERVICES, | | | | | | CORE | | + + + + + + | O2 SAT, | 91.6 (L) | 92.0 - 98.0 % | [facility] | | | ARTERIAL | | | LABORATORY | | | | | | SERVICES, | | | | | | CORE | | + + + + + + | PAO2/FIO2 | 108 (L) | >300 mmHg | [facility] | | | RATIO | | | LABORATORY | | | | | | SERVICES, | | | | | | CORE | | + + + + + + + + | Specimen | + + | Blood | + + + + + + + | Performing | Address | City/State/Zipcode | Phone Number | | Organization | | | | + + + + + | [facility] | [address] | [place] [address] | | | [place] | [address] | | | + + + + + CAPILLARY BLOOD GLUCOSE (NO CHG), POC (02/12/2018 6:03 PM PDT) + +---------+ + + + | Component | Value | Ref Range | Performed | Pathologist | | | | | At | Signature | + +---------+ + + + | BLOOD | 172 (H) | 70 - 99 mg/dL | [facility] | | | GLU[facility], | | | [place] | | | POC | | | [facility] | | | | | | [facility] | | | | | | TESTS | | + +---------+ + + + + + | Specimen | + + | | + + + + + + + | Performing | Address | City/State/Zipcode | Phone Number | | Organization | | | | + + + + + | [facility] | [address] | [place], [place] | | | [facility] | [facility] | [address] | | | TESTS | | | | + + + + + CAPILLARY BLOOD GLUCOSE (NO CHG), POC (02/12/2018 4:32 PM PDT) + +---------+ + + + | Component | Value | Ref Range | Performed | Pathologist | | | | | At | Signature | + +---------+ + + + | BLOOD | 158 (H) | 70 - 99 mg/dL | [facility] | | | GLUCOSE, | | | [place] | | | POC | | | [facility] | | | | | | [facility] | | | | | | TESTS | | + +---------+ + + + + + | Specimen | + + | | + + + + + + + | Performing | Address | City/State/Zipcode | Phone Number | | Organization | | | | + + + + + | [facility] | [address] | [place], [place] | | | [facility] | [address] | [address] | | | TESTS | | | | + + + + + CAPILLARY BLOOD GLUCOSE (NO CHG), POC (02/12/2018 3:14 PM PDT) + +---------+ + + + | Component | Value | Ref Range | Performed | Pathologist | | | | | At | Signature | + +---------+ + + + | BLOOD | 157 (H) | 70 - 99 mg/dL | [facility] | | | GLUCOSE, | | | [place] | | | POC | | | [facility] | | | | | | [facility] | | | | | | TESTS | | + +---------+ + + + + + | Specimen | + + | | + + + + + + + | Performing | Address | City/State/Zipcode | Phone Number | | Organization | | | | + + + + + | [facility] | [address] | [place], [place] | | | [facility] | [address] | [address] | | | TESTS | | | | + + + + + CAPILLARY BLOOD GLUCOSE (NO CHG), POC (02/12/2018 1:40 PM PDT) + +---------+ + + + | Component | Value | Ref Range | Performed | Pathologist | | | | | At | Signature | + +---------+ + + + | BLOOD | 162 (H) | 70 - 99 mg/dL | [facility] | | | GLUCOSE, | | | [facility] | | | POC | | | [facility] | | | | | | [facility] | | | | | | TESTS | | + +---------+ + + + + + | Specimen | + + | | + + + + + + + | Performing | Address | City/State/Zipcode | Phone Number | | Organization | | | | + + + + + | [facility] | [address] | [place], [place] | | | [facility] | [address] | [address] | | | TESTS | | | | + + + + + CAPILLARY BLOOD GLUCOSE (NO CHG), POC (02/12/2018 12:25 PM PDT) + +---------+ + + + | Component | Value | Ref Range | Performed | Pathologist | | | | | At | Signature | + +---------+ + + + | BLOOD | 152 (H) | 70 - 99 mg/dL | [facility] | | | GLUCOSE, | | | [facility] | | | POC | | | [facility] | | | | | | OF CARE | | | | | | TESTS | | + +---------+ + + + + + | Specimen | + + | | + + + + + + + | Performing | Address | City/State/Zipcode | Phone Number | | Organization | | | | + + + + + | [facility] | [address] | [place], [place] | | | [facility] | [address] | [address] | | | TESTS | | | | + + + + + BLOOD GASES, ARTERIAL - LAB (02/12/2018 10:24 AM PDT) + + + + + + | Component | Value | Ref Range | Performed | Pathologist | | | | | At | Signature | + + + + + + | FIO2 | 0.40 | | [facility] | | | ARTERIAL | | | LABORATORY | | | | | | SERVICES, | | | | | | CORE | | + + + + + + | PH ARTERIAL | 7.35 (L) | 7.37 - 7.44 | [facility] | | | | | | LABORATORY | | | | | | SERVICES, | | | | | | CORE | | + + + + + + | PCO2 | 54 (H) | 32 - 43 mmHg | [facility] | | | ARTERIAL | | | LABORATORY | | | | | | SERVICES, | | | | | | CORE | | + + + + + + | PO2 | 64 (L) | 72 - 104 mmHg | [facility] | | | ARTERIAL | | | LABORATORY | | | | | | SERVICES, | | | | | | CORE | | + + + + + + | HCO3 | 29 (H) | 21 - 28 mmol/L | [facility] | | | ARTERIAL | | | LABORATORY | | | | | | SERVICES, | | | | | | CORE | | + + + + + + | TOTAL CO2 | 30 (H) | 22 - 28 mmol/L | [facility] | | | ARTERIAL | | | LABORATORY | | | | | | SERVICES, | | | | | | CORE | | + + + + + + | BASE EXCESS | 2.6 (H) | -2.0 - 2.0 | [facility] | | | ARTERIAL | | mmol/L | LABORATORY | | | | | | SERVICES, | | | | | | CORE | | + + + + + + | O2 SAT, | 92.7 | 92.0 - 98.0 % | [facility] | | | ARTERIAL | | | LABORATORY | | | | | | SERVICES, | | | | | | CORE | | + + + + + + | PAO2/FIO2 | 160 (L) | >300 mmHg | [facility] | | | RATIO | | | LABORATORY | | | | | | SERVICES, | | | | | | CORE | | + + + + + + + + | Specimen | + + | Blood | + + + + + + + | Performing | Address | City/State/Zipcode | Phone Number | | Organization | | | | + + + + + | [facility] | [address] | [place] [address] | | | SERVICES, CORE | [address] | | | + + + + + CAPILLARY BLOOD GLUCOSE (NO CHG), POC (02/12/2018 10:20 AM PDT) + +---------+ + + + | Component | Value | Ref Range | Performed | Pathologist | | | | | At | Signature | + +---------+ + + + | BLOOD | 120 (H) | 70 - 99 mg/dL | [facility] - | | | GLUCOSE, | | | [facility] | | | POC | | | [facility] | | | | | | OF CARE | | | | | | TESTS | | + +---------+ + + + + + | Specimen | + + | | + + + + + + + | Performing | Address | City/State/Zipcode | Phone Number | | Organization | | | | + + + + + | [facility] | [address] | [place], [place] | | | [facility] | [address] | [address] | | | TESTS | | | | + + + + + X-RAY ABD LTD FEEDING TUBE EVAL (02/12/2018 9:17 AM PDT) + + | Specimen | + + | | + + + + + | Narrative | Performed At | + + + | EXAM: ABD LTD FEEDING TUBE EVAL HISTORY: Feeding tube | [facility] | | evaluation. COMPARISON: Plain radiography from the same date | RADIOLOGY VOICE | | and the day before IMPRESSION: Of note, the patient is prone, | RECOGNITION | | and images have not been corrected. An orogastric tube is identified | | | terminating below the diaphragm likely within the body of the stomach. | | | END IMPRESSION I have personally reviewed the images and, | | | if necessary, edited the report. I agree with the report as now | | | presented. | | + + + + + | Procedure Note | + + | Service Chance, Guille Res In Interface - 02/12/2018 9:37 AM PDT EXAM: ABD LTD | | FEEDING TUBE EVALHISTORY: Feeding tube evaluation.COMPARISON: Plain radiography from | | the same date and the day beforeIMPRESSION: Of note, the patient is prone, and images | | have not been corrected. An orogastric tube is identified terminating below the | | diaphragm likely within the body of the stomach.END IMPRESSIONI have personally reviewed | | the images and, if necessary, edited the report. I agree with the report as now | | presented. | | | |Of note, the patient is prone, and images have not been corrected. An orogastric tube is id entified terminating below the diaphragm likely within the body of the stomach. | | | |END IMPRESSION | | | | | |I have personally reviewed the images and, if necessary, edited the report. I agree with t he report as now presented. | + + + +---------+ + + | Performing | Address | City/State/Zipcode | Phone Number | | Organization | | | | + +---------+ + + | [facility] | | | | | VOICE RECOGNITION | | | | + +---------+ + + X-RAY PORTABLE CHEST 1 VIEW (02/12/2018 9:17 AM PDT) + + | Specimen | + + | | + + + + + | Narrative | Performed At | + + + | STUDY: ME CHEST 1 VIEW HISTORY: Endotracheal tube placement. | [facility] | | COMPARISON: February 11, 2018 FINDINGS: The patient is imaged in | RADIOLOGY VOICE | | prone position, limiting assessment of the lungs. The endotracheal | RECOGNITION | | tube terminates at the level of the clavicles, approximately 6.7 cm | | | above the jim. The transesophageal sump tube terminates off the | | | [id number]. Lung opacities are mostly obscured. IMPRESSION: | | | Endotracheal tube terminates in the high trachea, 6.7 cm above the | | | jim. I have personally reviewed the images and, if | | | necessary, edited the report. I agree with the report as now | | | presented. | | + + + + + | Procedure Note | + + | Service Account, Radiant Res In Interface - 02/12/2018 10:14 AM PDT STUDY: ME CHEST 1 | | VIEWHISTORY: Endotracheal tube placement.COMPARISON: February 11, 2018FINDINGS: The patient | | is imaged in prone position, limiting assessment of the lungs. The endotracheal tube | | terminates at the level of the clavicles, approximately 6.7 cm above the jim. The | | transesophageal sump tube terminates off the [id number]. Lung opacities are mostly | | obscured.IMPRESSION: Endotracheal tube terminates in the high trachea, 6.7 cm above the | | jim.I have personally reviewed the images and, if necessary, edited the report. I | | agree with the report as now presented. | |The patient is imaged in prone position, limiting assessment of the lungs. The endotracheal tube terminates at the level of the clavicles, approximately 6.7 cm above the jim. The t ransesophageal sump tube | |terminates off the [id number]. Lung opacities are mostly obscured. | | | |IMPRESSION: | | | |Endotracheal tube terminates in the high trachea, 6.7 cm above the jim. | | | | | |I have personally reviewed the images and, if necessary, edited the report. I agree with t he report as now presented. | + + + +---------+ + + | Performing | Address | City/State/Zipcode | Phone Number | | Organization | | | | + +---------+ + + | [facility] | | | | | VOICE RECOGNITION | | | | + +---------+ + + BASIC METABOLIC SET (NA, K, CL, TCO2, BUN, CR, GLU, CA) (02/12/2018 8:26 AM PDT) + + + + + + | Component | Value | Ref Range | Performed | Pathologist | | | | | At | Signature | + + + + + + | GLUCOSE, | 140 (H) | 70 - 99 mg/dL | [facility] | | | PLASMA | | | LABORATORY | | | (LAB) | | | SERVICES, | | | | | | CORE | | + + + + + + | BUN, PLASMA | 21 (H) | 6 - 20 mg/dL | [facility] | | | (LAB) | | | LABORATORY | | | | | | SERVICES, | | | | | | CORE | | + + + + + + | CREATININE | 1.39 (H) | 0.60 - 1.10 | [facility] | | | PLASMA | | mg/dL | LABORATORY | | | (LAB) | | | SERVICES, | | | | | | CORE | | + + + + + + | EGFR | 46 (L) | >60 mL/min | [facility] | | | - | | | LABORATORY | | | [place] | | | SERVICES, | | | | | | CORE | | + + + + + + | EGFR NON | 38 (L) | >60 mL/min | [facility] | | | -[facility]SEPH | | | LABORATORY | | | [facility] | | | SERVICES, | | | | | | CORE | | + + + + + + | SODIUM, | 142 | 136 - 145 | [facility] | | | PLASMA | | mmol/L | LABORATORY | | | (LAB) | | | SERVICES, | | | | | | CORE | | + + + + + + | POTASSIUM, | 3.9 | 3.4 - 5.0 | [facility] | | | PLASMA | | mmol/L | LABORATORY | | | (LAB) | | | SERVICES, | | | | | | CORE | | + + + + + + | CHLORIDE, | 107 | 97 - 108 mmol/L | [facility] | | | PLASMA | | | LABORATORY | | | (LAB) | | | SERVICES, | | | | | | CORE | | + + + + + + | TOTAL CO2, | 29 | 21 - 32 mmol/L | [facility] | | | PLASMA | | | LABORATORY | | | (LAB) | | | SERVICES, | | | | | | CORE | | + + + + + + | CALCIUM, | 7.2 (L) | 8.6 - 10.2 | [facility] | | | PLASMA | | mg/dL | LABORATORY | | | (LAB) | | | SERVICES, | | | | | | CORE | | + + + + + + | ANION GAP | 6 | 4 - 11 mmol/L | [facility] | | | | | | LABORATORY | | | | | | SERVICES, | | | | | | CORE | | + + + + + + | POTASSIUM | No Hemo | | [facility] | | | CMNT | | | LABORATORY | | | | | | SERVICES, | | | | | | CORE | | + + + + + + + + | Specimen | + + | Blood | + + + + + | Narrative | Performed At | + + + | Adult glucose reference range change effective 7-12-17. GFR is | [facility] | | estimated using the MDRD equation recommended by the National Kidney | LABORATORY | | Disease Education Program. Estimated GFR Interpretive Information: | SERVICES, CORE | | <60 mL/min/1.73 sq m Chronic Kidney | | | Disease <15 mL/min/1.73 sq m Kidney | | | Failure Estimated GFR greater that 60 mL/min/1.73 sq m is of limited | | | clinical value. The MDRD equation is not valid in the following | | | situations: - Patients under 18 years of age - Severe malnutrition | | | or obesity - Vegetarian diet - Rapidly changing kidney function | | + + + + + + + + | Performing | Address | City/State/Zipcode | Phone Number | | Organization | | | | + + + + + | [facility] | [address] | [place] [address] | | | [facility] | [address] | | | + + + + + CAPILLARY BLOOD GLUCOSE (NO CHG), POC (02/12/2018 8:05 AM PDT) + +---------+ + + + | Component | Value | Ref Range | Performed | Pathologist | | | | | At | Signature | + +---------+ + + + | BLOOD | 145 (H) | 70 - 99 mg/dL | [facility] - | | | GLUCOSE, | | | [facility] | | | POC | | | [facility] | | | | | | OF CARE | | | | | | TESTS | | + +---------+ + + + + + | Specimen | + + | | + + + + + + + | Performing | Address | City/State/Zipcode | Phone Number | | Organization | | | | + + + + + | [facility] | [address] | [place], [place] | | | [facility] | [address] | [address] | | | TESTS | | | | + + + + + BLOOD GASES, ARTERIAL - LAB (02/12/2018 6:31 AM PDT) + + + + + + | Component | Value | Ref Range | Performed | Pathologist | | | | | At | Signature | + + + + + + | FIO2 | 0.40Comment: 37.5 temp | | [facility] | | | ARTERIAL | | | LABORATORY | | | | | | SERVICES, | | | | | | CORE | | + + + + + + | PH ARTERIAL | 7.41 | 7.37 - 7.44 | [facility] | | | | | | LABORATORY | | | | | | SERVICES, | | | | | | CORE | | + + + + + + | PCO2 | 46 (H) | 32 - 43 mmHg | [facility] | | | ARTERIAL | | | LABORATORY | | | | | | SERVICES, | | | | | | CORE | | + + + + + + | PO2 | 70 (L) | 72 - 104 mmHg | [facility] | | | ARTERIAL | | | LABORATORY | | | | | | SERVICES, | | | | | | CORE | | + + + + + + | HCO3 | 29 (H) | 21 - 28 mmol/L | [facility] | | | ARTERIAL | | | LABORATORY | | | | | | SERVICES, | | | | | | CORE | | + + + + + + | TOTAL CO2 | 30 (H) | 22 - 28 mmol/L | [facility] | | | ARTERIAL | | | LABORATORY | | | | | | SERVICES, | | | | | | CORE | | + + + + + + | BASE EXCESS | 3.6 (H) | -2.0 - 2.0 | [facility] | | | ARTERIAL | | mmol/L | LABORATORY | | | | | | SERVICES, | | | | | | CORE | | + + + + + + | O2 SAT, | 95.7 | 92.0 - 98.0 % | [facility] | | | ARTERIAL | | | LABORATORY | | | | | | SERVICES, | | | | | | CORE | | + + + + + + | PAO2/FIO2 | 175 (L) | >300 mmHg | [facility] | | | RATIO | | | LABORATORY | | | | | | SERVICES, | | | | | | CORE | | + + + + + + + + | Specimen | + + | Blood | + + + + + + + | Performing | Address | City/State/Zipcode | Phone Number | | Organization | | | | + + + + + | [facility] | [address] | [place] [address] | | | SERVICES, CORE | [address] | | | + + + + + CAPILLARY BLOOD GLUCOSE (NO CHG), POC (02/12/2018 6:12 AM PDT) + +---------+ + + + | Component | Value | Ref Range | Performed | Pathologist | | | | | At | Signature | + +---------+ + + + | BLOOD | 138 (H) | 70 - 99 mg/dL | [facility] - | | | GLUCOSE, | | | [facility] | | | POC | | | [facility] | | | | | | OF CARE | | | | | | TESTS | | + +---------+ + + + + + | Specimen | + + | | + + + + + + + | Performing | Address | City/State/Zipcode | Phone Number | | Organization | | | | + + + + + | [facility] | [address] | [place], [place] | | | [facility] | [address] | [address] | | | TESTS | | | | + + + + + ART LINE (02/12/2018 6:09 AM PDT) + + + | Narrative | Performed At | + + + | Fercho Carrasco MD 02/11/2018 11:13 PM ARTERIAL LINE | | | Performed by: FERCHO CARRASCO Authorized by: RON MEEKS | | | ART Line Insertion Procedure Note Indications: Frequent lab | | | draws Procedure location: Providers: Resident name: | | | Fercho Carrasco MD Fellow name: Josr Aguirre MD Pre-Procedure | | | Consent: written consent obtained Consent given by: Other Other | | | consent provider: sister Patient identity confirmed per policy: Yes | | | Team Pause: Immediatly prior to the procedure a pause per protocol | | | was called. A pause verifies correct patient, procedure, equipment, | | | passport support manager and site/side marked as required. [facility] | | | Prevention Bundle: Insertion site: Left Radial Skin preparation: | | | Chloraprep Protective barrier: Cap, Mask, Hand scrub, Gloves and | | | Partially draped. Line secured: Suture and tape | | | Anesthesia Anesthesia: local infiltration Local anesthetic: | | | Lidocaine 1% Procedure Details Patient was placed in appropriate | | | position Catheter size: 24g Line was secured by suture and tape | | | Attempts 1 attempt(s) were made. Complications Type: | | | None | | + + + CAPILLARY BLOOD GLUCOSE (NO CHG), POC (02/12/2018 5:10 AM PDT) + +---------+ + + + | Component | Value | Ref Range | Performed | Pathologist | | | | | At | Signature | + +---------+ + + + | BLOOD | 144 (H) | 70 - 99 mg/dL | [facility] - | | | GLUCOSE, | | | [facility] | | | POC | | | [facility] | | | | | | OF CARE | | | | | | TESTS | | + +---------+ + + + + + | Specimen | + + | | + + + + + + + | Performing | Address | City/State/Zipcode | Phone Number | | Organization | | | | + + + + + | [facility] | [address] | [place], [place] | | | [facility] | [address] | [address] | | | TESTS | | | | + + + + + BLOOD GASES, ARTERIAL - LAB (02/12/2018 5:03 AM PDT) + + + + + + | Component | Value | Ref Range | Performed | Pathologist | | | | | At | Signature | + + + + + + | FIO2 | 0.40Comment: 37.5 | | [facility] | | | ARTERIAL | | | LABORATORY | | | | | | SERVICES, | | | | | | CORE | | + + + + + + | PH ARTERIAL | 7.42 | 7.37 - 7.44 | [facility] | | | | | | LABORATORY | | | | | | SERVICES, | | | | | | CORE | | + + + + + + | PCO2 | 47 (H) | 32 - 43 mmHg | [facility] | | | ARTERIAL | | | LABORATORY | | | | | | SERVICES, | | | | | | CORE | | + + + + + + | PO2 | 68 (L) | 72 - 104 mmHg | [facility] | | | ARTERIAL | | | LABORATORY | | | | | | SERVICES, | | | | | | CORE | | + + + + + + | HCO3 | 30 (H) | 21 - 28 mmol/L | [facility] | | | ARTERIAL | | | LABORATORY | | | | | | SERVICES, | | | | | | CORE | | + + + + + + | TOTAL CO2 | 31 (H) | 22 - 28 mmol/L | [facility] | | | ARTERIAL | | | LABORATORY | | | | | | SERVICES, | | | | | | CORE | | + + + + + + | BASE EXCESS | 4.9 (H) | -2.0 - 2.0 | [facility] | | | ARTERIAL | | mmol/L | LABORATORY | | | | | | SERVICES, | | | | | | CORE | | + + + + + + | O2 SAT, | 93.3 | 92.0 - 98.0 % | [facility] | | | ARTERIAL | | | LABORATORY | | | | | | SERVICES, | | | | | | CORE | | + + + + + + | PAO2/FIO2 | 170 (L) | >300 mmHg | [facility] | | | RATIO | | | LABORATORY | | | | | | SERVICES, | | | | | | CORE | | + + + + + + + + | Specimen | + + | Blood | + + + + + + + | Performing | Address | City/State/Zipcode | Phone Number | | Organization | | | | + + + + + | [facility] | [address] | [place] [address] | | | SERVICES, CORE | [address] | | | + + + + + CAPILLARY BLOOD GLUCOSE (NO CHG), POC (02/12/2018 4:19 AM PDT) + +---------+ + + + | Component | Value | Ref Range | Performed | Pathologist | | | | | At | Signature | + +---------+ + + + | BLOOD | 127 (H) | 70 - 99 mg/dL | [facility] - | | | GLUCOSE, | | | [facility] | | | POC | | | [facility] | | | | | | OF CARE | | | | | | TESTS | | + +---------+ + + + + + | Specimen | + + | | + + + + + + + | Performing | Address | City/State/Zipcode | Phone Number | | Organization | | | | + + + + + | [facility] | [address] | [place], [place] | | | [facility] | [address] | [address] | | | TESTS | | | | + + + + + CAPILLARY BLOOD GLUCOSE (NO CHG), POC (02/12/2018 3:07 AM PDT) + +---------+ + + + | Component | Value | Ref Range | Performed | Pathologist | | | | | At | Signature | + +---------+ + + + | BLOOD | 163 (H) | 70 - 99 mg/dL | [facility] - | | | GLUCOSE, | | | [facility] | | | POC | | | [facility] | | | | | | OF CARE | | | | | | TESTS | | + +---------+ + + + + + | Specimen | + + | | + + + + + + + | Performing | Address | City/State/Zipcode | Phone Number | | Organization | | | | + + + + + | [facility] | [address] | [place], [place] | | | [facility] | [address] | [address] | | | TESTS | | | | + + + + + CBC AND AUTO DIFF (02/12/2018 3:05 AM PDT) + + + + + + | Component | Value | Ref Range | Performed | Pathologist | | | | | At | Signature | + + + + + + | WHITE CELL | 7.94 | 3.50 - 10.80 | [facility] | | | COUNT | | K/cu mm | LABORATORY | | | | | | SERVICES, | | | | | | CORE | | + + + + + + | RED CELL | 4.07 | 4.00 - 5.20 | [facility] | | | COUNT | | M/cu mm | LABORATORY | | | | | | SERVICES, | | | | | | CORE | | + + + + + + | HEMOGLOBIN | 11.4 (L) | 12.0 - 16.0 | [facility] | | | | | g/dL | LABORATORY | | | | | | SERVICES, | | | | | | CORE | | + + + + + + | HEMATOCRIT | 35.7 (L) | 36.0 - 46.0 % | [facility] | | | | | | LABORATORY | | | | | | SERVICES, | | | | | | CORE | | + + + + + + | MCV | 87.7 | 80.0 - 96.0 fL | [facility] | | | | | | LABORATORY | | | | | | SERVICES, | | | | | | CORE | | + + + + + + | MCHC | 31.9 | 33.0 - 35.5 | [facility] | | | | | g/dL | LABORATORY | | | | | | SERVICES, | | | | | | CORE | | + + + + + + | RDW SD | 46.5 (H) | 35.1 - 46.3 fL | [facility] | | | | | | LABORATORY | | | | | | SERVICES, | | | | | | CORE | | + + + + + + | PLATELET | 185 | 150 - 400 K/cu | [facility] | | | COUNT | | mm | LABORATORY | | | | | | SERVICES, | | | | | | CORE | | + + + + + + | MPV | 9.7 | 9.7 - 12.3 fL | [facility] | | | | | | LABORATORY | | | | | | SERVICES, | | | | | | CORE | | + + + + + + | NRBC% | 0.0 | 0.0 - 0.3 % | [facility] | | | | | | LABORATORY | | | | | | SERVICES, | | | | | | CORE | | + + + + + + | NRBC# | 0.00 | 0.00 - 0.02 | [facility] | | | | | K/cu mm | LABORATORY | | | | | | SERVICES, | | | | | | CORE | | + + + + + + | NEUTROPHIL | 76.5 (H) | 50.0 - 70.0 % | [facility] | | | % | | | LABORATORY | | | | | | SERVICES, | | | | | | CORE | | + + + + + + | LYMPHOCYTE | 20.4 | 18.0 - 42.0 % | [facility] | | | % | | | LABORATORY | | | | | | SERVICES, | | | | | | CORE | | + + + + + + | MONOCYTE % | 2.0 (L) | 3.5 - 9.0 % | [facility] | | | | | | LABORATORY | | | | | | SERVICES, | | | | | | CORE | | + + + + + + | EOS % | 0.4 (L) | 1.0 - 3.0 % | [facility] | | | | | | LABORATORY | | | | | | SERVICES, | | | | | | CORE | | + + + + + + | BASO % | 0.3 | 0.0 - 2.0 % | [facility] | | | | | | LABORATORY | | | | | | SERVICES, | | | | | | CORE | | + + + + + + | IG% | 0.4Comment: Increased | 0.0 - 1.0 % | [facility] | | | | immature granulocytes | | LABORATORY | | | | (IG) define a left | | SERVICES, | | | | shift. Immature | | CORE | | | | granulocytes (IG) are an | | | | | | automated count of | | | | | | metamyelocytes, | | | | | | myelocytes and | | | | | | promyelocytes. Bands | | | | | | are not included in the | | | | | | IG count. Bands are | | | | | | included in the | | | | | | neutrophil count. | | | | + + + + + + | NEUTROPHIL | 6.08 | 1.80 - 7.70 | [facility] | | | # | | K/cu mm | LABORATORY | | | | | | SERVICES, | | | | | | CORE | | + + + + + + | LYMPHOCYTE | 1.62 | 1.00 - 4.80 | [facility] | | | # | | K/cu mm | LABORATORY | | | | | | SERVICES, | | | | | | CORE | | + + + + + + | MONOCYTE # | 0.16 | 0.10 - 0.90 | [facility] | | | | | K/cu mm | LABORATORY | | | | | | SERVICES, | | | | | | CORE | | + + + + + + | EOS # | 0.03 | 0.00 - 0.50 | [facility] | | | | | K/cu mm | LABORATORY | | | | | | SERVICES, | | | | | | CORE | | + + + + + + | BASO # | 0.02 | 0.00 - 0.10 | [facility] | | | | | K/cu mm | LABORATORY | | | | | | SERVICES, | | | | | | CORE | | + + + + + + | IG# | 0.03 | 0.00 - 0.10 | [facility] | | | | | K/cu mm | LABORATORY | | | | | | SERVICES, | | | | | | CORE | | + + + + + + + + | Specimen | + + | Blood | + + + + + | Narrative | Performed At | + + + | New reference ranges for IG% and IG# effective 12/02/2017. | [facility] | | Increased immature granulocytes (IG) define a left shift. Immature | LABORATORY | | granulocytes (IG) are an automated count of metamyelocytes, myelocytes | SERVICES, CORE | | and promyelocytes. Bands are not included in the IG count. Bands are | | | included in the neutrophil count. | | + + + + + + + + | Performing | Address | City/State/Zipcode | Phone Number | | Organization | | | | + + + + + | [facility] | [address] | [place] [address] | | | [facility] | [address] | | | + + + + + MAGNESIUM, PLASMA (02/12/2018 3:05 AM PDT) + +-------+ + + + | Component | Value | Ref Range | Performed | Pathologist | | | | | At | Signature | + +-------+ + + + | MAGNESIUM,P | 2.1 | 1.6 - 2.6 mg/dL | [facility] | | | LASMA | | | LABORATORY | | | | | | SERVICES, | | | | | | CORE | | + +-------+ + + + + + | Specimen | + + | Blood | + + + + + | Narrative | Performed At | + + + | IV Trough to be drawn immediately prior to next dose. Prior to | [facility] | | 4th dose for initial therapy. Reference range change effective | LABORATORY | | 06/26/17. | [place] | + + + + + + + + | Performing | Address | City/State/Zipcode | Phone Number | | Organization | | | | + + + + + | [facility] | [address] [facility] | [place] [address] | | | [place] | [address] | | | + + + + + RENAL FUNCTION SET (NA,K,CL,CO2,BUN,CREAT,GLUC,CA,PHOS,ALB ) (02/12/2018 3:05 AM PDT) + + + + + + | Component | Value | Ref Range | Performed | Pathologist | | | | | At | Signature | + + + + + + | GLUCOSE, | 152 (H) | 70 - 99 mg/dL | [facility] | | | PLASMA | | | LABORATORY | | | (LAB) | | | SERVICES, | | | | | | CORE | | + + + + + + | BUN, PLASMA | 21 (H) | 6 - 20 mg/dL | [facility] | | | (LAB) | | | LABORATORY | | | | | | SERVICES, | | | | | | CORE | | + + + + + + | CREATININE | 1.33 (H) | 0.60 - 1.10 | [facility] | | | PLASMA | | mg/dL | LABORATORY | | | (LAB) | | | SERVICES, | | | | | | CORE | | + + + + + + | EGFR | 49 (L) | >60 mL/min | [facility] | | | - | | | LABORATORY | | | [place] | | | SERVICES, | | | | | | CORE | | + + + + + + | EGFR NON | 40 (L) | >60 mL/min | [facility] | | | -[facility] | | | LABORATORY | | | [place] | | | SERVICES, | | | | | | CORE | | + + + + + + | SODIUM, | 141 | 136 - 145 | [facility] | | | PLASMA | | mmol/L | LABORATORY | | | (LAB) | | | SERVICES, | | | | | | CORE | | + + + + + + | POTASSIUM, | 3.0 (L) | 3.4 - 5.0 | [facility] | | | PLASMA | | mmol/L | LABORATORY | | | (LAB) | | | SERVICES, | | | | | | CORE | | + + + + + + | CHLORIDE, | 103 | 97 - 108 mmol/L | [facility] | | | PLASMA | | | LABORATORY | | | (LAB) | | | SERVICES, | | | | | | CORE | | + + + + + + | TOTAL CO2, | 28 | 21 - 32 mmol/L | [facility] | | | PLASMA | | | LABORATORY | | | (LAB) | | | SERVICES, | | | | | | CORE | | + + + + + + | CALCIUM, | 7.4 (L) | 8.6 - 10.2 | [facility] | | | PLASMA | | mg/dL | LABORATORY | | | (LAB) | | | SERVICES, | | | | | | CORE | | + + + + + + | CALCIUM(ALB | 8.8 | 8.6 - 10.2 | [facility] | | | CORRECTED) | | mg/dL | LABORATORY | | | | | | SERVICES, | | | | | | CORE | | + + + + + + | ALBUMIN, | 2.2 (L) | 3.5 - 4.7 g/dL | [facility] | | | PLASMA | | | LABORATORY | | | (LAB) | | | SERVICES, | | | | | | CORE | | + + + + + + | PHOSPHORUS, | 1.6 (L) | 2.4 - 4.7 mg/dL | [facility] | | | PLASMA | | | LABORATORY | | | (LAB) | | | SERVICES, | | | | | | CORE | | + + + + + + | POTASSIUM | No Hemo | | [facility] | | | [facility] | | | LABORATORY | | | | | | SERVICES, | | | | | | CORE | | + + + + + + | ANION GAP | 10 | 4 - 11 mmol/L | [facility] | | | | | | LABORATORY | | | | | | SERVICES, | | | | | | CORE | | + + + + + + | ANION | 14 (H) | 4 - 11 mmol/L | [facility] | | | GAP(ALB | | | LABORATORY | | | CORRECTED) | | | SERVICES, | | | | | | CORE | | + + + + + + + + | Specimen | + + | Blood | + + + + + | Narrative | Performed At | + + + | Adult glucose reference range change effective 7-12-17. IV | [facility] | | Trough to be drawn immediately prior to next dose. Prior to 4th | LABORATORY | | dose for initial therapy. GFR is estimated using the MDRD equation | SERVICES, CORE | | recommended by the National Kidney Disease Education Program. | | | Estimated GFR Interpretive Information: <60 mL/min/1.73 sq | | | m Chronic Kidney Disease <15 mL/min/1.73 | | | sq m Kidney Failure Estimated GFR greater | | | that 60 mL/min/1.73 sq m is of limited clinical value. The MDRD | | | equation is not valid in the following situations: - Patients under | | | 18 years of age - Severe malnutrition or obesity - Vegetarian diet | | | - Rapidly changing kidney function | | + + + + + + + + | Performing | Address | City/State/Zipcode | Phone Number | | Organization | | | | + + + + + | [facility] | [address] | [place] [address] | | | SERVICES, CORE | [address] | | | + + + + + VANCOMYCIN, TROUGH (02/12/2018 3:05 AM PDT) + + + + + + | Component | Value | Ref Range | Performed | Pathologist | | | | | At | Signature | + + + + + + | VANCOMYCIN, | 29.3 (H) | 10.0 - 20.0 | [facility] | | | TROUGH | | ug/mL | LABORATORY | | | | | | SERVICES, | | | | | | CORE | | + + + + + + + + | Specimen | + + | Blood | + + + + + | Narrative | Performed At | + + + | IV Trough to be drawn immediately prior to next dose. Prior to | [facility] | | 4th dose for initial therapy. Reference range change effective | LABORATORY | | 08/06/2017. | SERVICES, CORE | + + + + + + + + | Performing | Address | City/State/Zipcode | Phone Number | | Organization | | | | + + + + + | [facility] | [address] | [place] [address] | | | SERVICES, CORE | [address] | | | + + + + + CAPILLARY BLOOD GLUCOSE (NO CHG), POC (02/12/2018 2:15 AM PDT) + +---------+ + + + | Component | Value | Ref Range | Performed | Pathologist | | | | | At | Signature | + +---------+ + + + | BLOOD | 160 (H) | 70 - 99 mg/dL | [facility] | | | GLUCOSE, | | | [facility] | | | POC | | | [facility] | | | | | | OF CARE | | | | | | TESTS | | + +---------+ + + + + + | Specimen | + + | | + + + + + + + | Performing | Address | City/State/Zipcode | Phone Number | | Organization | | | | + + + + + | [facility] | [address] | [place], [place] | | | [facility] | [address] | [address] | | | TESTS | | | | + + + + + CAPILLARY BLOOD GLUCOSE (NO CHG), POC (02/12/2018 1:12 AM PDT) + +---------+ + + + | Component | Value | Ref Range | Performed | Pathologist | | | | | At | Signature | + +---------+ + + + | BLOOD | 138 (H) | 70 - 99 mg/dL | [facility] - | | | GLUCOSE, | | | [facility] | | | POC | | | [facility] | | | | | | OF CARE | | | | | | TESTS | | + +---------+ + + + + + | Specimen | + + | | + + + + + + + | Performing | Address | City/State/Zipcode | Phone Number | | Organization | | | | + + + + + | [facility] | [address] | [place], [place] | | | [facility] | [address] | [address] | | | TESTS | | | | + + + + + BLOOD GASES, ARTERIAL - LAB (02/12/2018 1:08 AM PDT) + + + + + + | Component | Value | Ref Range | Performed | Pathologist | | | | | At | Signature | + + + + + + | FIO2 | 0.40Comment: 37.5 temp | | [facility] | | | ARTERIAL | | | LABORATORY | | | | | | SERVICES, | | | | | | CORE | | + + + + + + | PH ARTERIAL | 7.44 | 7.37 - 7.44 | [facility] | | | | | | LABORATORY | | | | | | SERVICES, | | | | | | CORE | | + + + + + + | PCO2 | 45 (H) | 32 - 43 mmHg | [facility] | | | ARTERIAL | | | LABORATORY | | | | | | SERVICES, | | | | | | CORE | | + + + + + + | PO2 | 71 (L) | 72 - 104 mmHg | [facility] | | | ARTERIAL | | | LABORATORY | | | | | | SERVICES, | | | | | | CORE | | + + + + + + | HCO3 | 30 (H) | 21 - 28 mmol/L | [facility] | | | ARTERIAL | | | LABORATORY | | | | | | SERVICES, | | | | | | CORE | | + + + + + + | TOTAL CO2 | 31 (H) | 22 - 28 mmol/L | [facility] | | | ARTERIAL | | | LABORATORY | | | | | | SERVICES, | | | | | | CORE | | + + + + + + | BASE EXCESS | 5.3 (H) | -2.0 - 2.0 | [facility] | | | ARTERIAL | | mmol/L | LABORATORY | | | | | | SERVICES, | | | | | | CORE | | + + + + + + | O2 SAT, | 96.1 | 92.0 - 98.0 % | [facility] | | | ARTERIAL | | | LABORATORY | | | | | | SERVICES, | | | | | | CORE | | + + + + + + | PAO2/FIO2 | 178 (L) | >300 mmHg | [facility] | | | RATIO | | | LABORATORY | | | | | | SERVICES, | | | | | | CORE | | + + + + + + + + | Specimen | + + | Blood | + + + + + + + | Performing | Address | City/State/Zipcode | Phone Number | | Organization | | | | + + + + + | [facility] | [address] | [place] [address] | | | SERVICES, CORE | [address] | | | + + + + + CAPILLARY BLOOD GLUCOSE (NO CHG), POC (02/12/2018 12:07 AM PDT) + +---------+ + + + | Component | Value | Ref Range | Performed | Pathologist | | | | | At | Signature | + +---------+ + + + | BLOOD | 155 (H) | 70 - 99 mg/dL | [facility] - | | | GLUCOSE, | | | [facility] | | | POC | | | [facility] | | | | | | OF CARE | | | | | | TESTS | | + +---------+ + + + + + | Specimen | + + | | + + + + + + + | Performing | Address | City/State/Zipcode | Phone Number | | Organization | | | | + + + + + | [facility] | [address] | [place] | | | [facility] | [address] | [address] | | | TESTS | | | | + + + + + 12 LEAD ECG (02/11/2018 11:40 PM PDT) + + + + + + | Component | Value | Ref Range | Performed | Pathologist | | | | | At | Signature | + + + + + + | VENTRICULAR | 80 | bpm | [facility] | | | RATE | | | OF | | | | | | CARDIOLOGY | | + + + + + + | ATRIAL RATE | 80 | ms | [facility] | | | | | | OF | | | | | | CARDIOLOGY | | + + + + + + | P-R | 117 | ms | [facility] | | | INTERVAL | | | OF | | | | | | CARDIOLOGY | | + + + + + + | P AXIS | -34 | deg | [facility] | | | | | | OF | | | | | | CARDIOLOGY | | + + + + + + | QRS | 82 | ms | [facility] | | | DURATION | | | OF | | | | | | CARDIOLOGY | | + + + + + + | QT | 405 | ms | [facility] | | | | | | OF | | | | | | CARDIOLOGY | | + + + + + + | QTCB | 468 | ms | [facility] | | | | | | OF | | | | | | CARDIOLOGY | | + + + + + + | R AXIS | -67 | deg | [facility] | | | | | | OF | | | | | | CARDIOLOGY | | + + + + + + | T AXIS | 57 | deg | [facility] | | | | | | OF | | | | | | CARDIOLOGY | | + + + + + + | ECG | Sinus rhythm | | [facility] | | | IMPRESSION | | | OF | | | | | | CARDIOLOGY | | + + + + + + | ECG | Atrial premature complex | | [facility] | | | IMPRESSION | | | OF | | | | | | CARDIOLOGY | | + + + + + + | ECG | Low voltage, precordial | | [facility] | | | IMPRESSION | leads | | OF | | | | | | CARDIOLOGY | | + + + + + + | ECG | Consider anteroseptal | | [facility] | | | IMPRESSION | infarct- ABNORMAL ECG - | | OF | | | | | | CARDIOLOGY | | + + + + + + | ECG | Electronically signed | | [facility] | | | IMPRESSION | by: TYLOR RUIZ | | OF | | | | 02-12-2018 07:55:34 | | CARDIOLOGY | | + + + + + + + + | Specimen | + + | | + + + + + | Narrative | Performed At | + + + | | | + + + + + + + + | Performing | Address | City/State/Zipcode | Phone Number | | Organization | | | | + + + + + | [facility] | [address] | [place], [place] | | | CARDIOLOGY | [address] | [address] | | + + + + + CAPILLARY BLOOD GLUCOSE (NO CHG), POC (02/11/2018 11:03 PM PDT) + +---------+ + + + | Component | Value | Ref Range | Performed | Pathologist | | | | | At | Signature | + +---------+ + + + | BLOOD | 180 (H) | 70 - 99 mg/dL | [facility] - | | | GLUCOSE, | | | [facility] | | | POC | | | [facility] | | | | | | OF CARE | | | | | | TESTS | | + +---------+ + + + + + | Specimen | + + | | + + + + + + + | Performing | Address | City/State/Zipcode | Phone Number | | Organization | | | | + + + + + | [facility] | [address] | [place], [place] | | | [facility] | [address] | [address] | | | TESTS | | | | + + + + + CAPILLARY BLOOD GLUCOSE (NO CHG), POC (02/11/2018 9:58 PM PDT) + +---------+ + + + | Component | Value | Ref Range | Performed | Pathologist | | | | | At | Signature | + +---------+ + + + | BLOOD | 208 (H) | 70 - 99 mg/dL | [facility] - | | | GLUCOSE, | | | [facility] | | | POC | | | [facility] | | | | | | OF CARE | | | | | | TESTS | | + +---------+ + + + + + | Specimen | + + | | + + + + + + + | Performing | Address | City/State/Zipcode | Phone Number | | Organization | | | | + + + + + | [facility] | [address] | [place], [place] | | | [facility] | [address] | [address] | | | TESTS | | | | + + + + + BLOOD GASES, ARTERIAL - LAB (02/11/2018 9:20 PM PDT) + + + + + + | Component | Value | Ref Range | Performed | Pathologist | | | | | At | Signature | + + + + + + | FIO2 | 0.40Comment: 37.8 temp | | [facility] | | | ARTERIAL | | | LABORATORY | | | | | | SERVICES, | | | | | | CORE | | + + + + + + | PH ARTERIAL | 7.43 | 7.37 - 7.44 | [facility] | | | | | | LABORATORY | | | | | | SERVICES, | | | | | | CORE | | + + + + + + | PCO2 | 45 (H) | 32 - 43 mmHg | [facility] | | | ARTERIAL | | | LABORATORY | | | | | | SERVICES, | | | | | | CORE | | + + + + + + | PO2 | 54 (L) | 72 - 104 mmHg | [facility] | | | ARTERIAL | | | LABORATORY | | | | | | SERVICES, | | | | | | CORE | | + + + + + + | HCO3 | 29 (H) | 21 - 28 mmol/L | [facility] | | | ARTERIAL | | | LABORATORY | | | | | | SERVICES, | | | | | | CORE | | + + + + + + | TOTAL CO2 | 31 (H) | 22 - 28 mmol/L | [facility] | | | ARTERIAL | | | LABORATORY | | | | | | SERVICES, | | | | | | CORE | | + + + + + + | BASE EXCESS | 4.9 (H) | -2.0 - 2.0 | [facility] | | | ARTERIAL | | mmol/L | LABORATORY | | | | | | SERVICES, | | | | | | CORE | | + + + + + + | O2 SAT, | 89.0 (L) | 92.0 - 98.0 % | [facility] | | | ARTERIAL | | | LABORATORY | | | | | | SERVICES, | | | | | | CORE | | + + + + + + | PAO2/FIO2 | 135 (L) | >300 mmHg | [facility] | | | RATIO | | | LABORATORY | | | | | | SERVICES, | | | | | | CORE | | + + + + + + + + | Specimen | + + | Blood | + + + + + + + | Performing | Address | City/State/Zipcode | Phone Number | | Organization | | | | + + + + + | [facility] | [address] | [place] [address] | | | [place] | [address] | | | + + + + + CAPILLARY BLOOD GLUCOSE (NO CHG), POC (02/11/2018 8:47 PM PDT) + +---------+ + + + | Component | Value | Ref Range | Performed | Pathologist | | | | | At | Signature | + +---------+ + + + | BLOOD | 291 (H) | 70 - 99 mg/dL | [facility] | | | GLUCOSE, | | | [facility] | | | POC | | | [facility] | | | | | | OF CARE | | | | | | TESTS | | + +---------+ + + + + + | Specimen | + + | | + + + + + + + | Performing | Address | City/State/Zipcode | Phone Number | | Organization | | | | + + + + + | [facility] | [address] | [place], [place] | | | [facility] | [facility] | [phone] | | | TESTS | | | | + + + + + CAPILLARY BLOOD GLUCOSE (NO CHG), POC (02/11/2018 7:47 PM PDT) + +---------+ + + + | Component | Value | Ref Range | Performed | Pathologist | | | | | At | Signature | + +---------+ + + + | BLOOD | 292 (H) | 70 - 99 mg/dL | [facility] - | | | GLUCOSE, | | | [facility] | | | POC | | | [facility] | | | | | | OF CARE | | | | | | TESTS | | + +---------+ + + + + + | Specimen | + + | | + + + + + + + | Performing | Address | City/State/Zipcode | Phone Number | | Organization | | | | + + + + + | [facility] | [address] | [place], [place] | | | [facility] | [address] | [address] | | | TESTS | | | | + + + + + CAPILLARY BLOOD GLUCOSE (NO CHG), POC (02/11/2018 6:44 PM PDT) + +---------+ + + + | Component | Value | Ref Range | Performed | Pathologist | | | | | At | Signature | + +---------+ + + + | BLOOD | 264 (H) | 70 - 99 mg/dL | [facility] - | | | GLUCOSE, | | | [facility] | | | POC | | | [facility] | | | | | | OF CARE | | | | | | TESTS | | + +---------+ + + + + + | Specimen | + + | | + + + + + + + | Performing | Address | City/State/Zipcode | Phone Number | | Organization | | | | + + + + + | [facility] | [address] | [place], [place] | | | [facility] | [facility] | [phone] | | | TESTS | | | | + + + + + CAPILLARY BLOOD GLUCOSE (NO CHG), POC (02/11/2018 1:35 PM PDT) + +---------+ + + + | Component | Value | Ref Range | Performed | Pathologist | | | | | At | Signature | + +---------+ + + + | BLOOD | 264 (H) | 70 - 99 mg/dL | [facility] - | | | GLUCOSE, | | | [facility] | | | POC | | | [facility] | | | | | | OF CARE | | | | | | TESTS | | + +---------+ + + + + + | Specimen | + + | | + + + + + + + | Performing | Address | City/State/Zipcode | Phone Number | | Organization | | | | + + + + + | [facility] | [address] | [place], [place] | | | [facility] | [facility] | [address] | | | TESTS | | | | + + + + + BLOOD GASES, ARTERIAL - LAB (02/11/2018 11:32 AM PDT) + + + + + + | Component | Value | Ref Range | Performed | Pathologist | | | | | At | Signature | + + + + + + | FIO2 | 0.50 | | [facility] | | | ARTERIAL | | | LABORATORY | | | | | | SERVICES, | | | | | | CORE | | + + + + + + | PH ARTERIAL | 7.45 (H) | 7.37 - 7.44 | [facility] | | | | | | LABORATORY | | | | | | SERVICES, | | | | | | CORE | | + + + + + + | PCO2 | 41 | 32 - 43 mmHg | [facility] | | | ARTERIAL | | | LABORATORY | | | | | | SERVICES, | | | | | | CORE | | + + + + + + | PO2 | 64 (L) | 72 - 104 mmHg | [facility] | | | ARTERIAL | | | LABORATORY | | | | | | SERVICES, | | | | | | CORE | | + + + + + + | HCO3 | 28 | 21 - 28 mmol/L | [facility] | | | ARTERIAL | | | LABORATORY | | | | | | SERVICES, | | | | | | CORE | | + + + + + + | TOTAL CO2 | 29 (H) | 22 - 28 mmol/L | [facility] | | | ARTERIAL | | | LABORATORY | | | | | | SERVICES, | | | | | | CORE | | + + + + + + | BASE EXCESS | 3.8 (H) | -2.0 - 2.0 | [facility] | | | ARTERIAL | | mmol/L | LABORATORY | | | | | | SERVICES, | | | | | | CORE | | + + + + + + | O2 SAT, | 93.4 | 92.0 - 98.0 % | [facility] | | | ARTERIAL | | | LABORATORY | | | | | | SERVICES, | | | | | | CORE | | + + + + + + | PAO2/FIO2 | 128 (L) | >300 mmHg | [facility] | | | RATIO | | | LABORATORY | | | | | | SERVICES, | | | | | | CORE | | + + + + + + + + | Specimen | + + | Blood | + + + + + + + | Performing | Address | City/State/Zipcode | Phone Number | | Organization | | | | + + + + + | [facility] | [address] | [place] [address] | | | [place] | [address] | | | + + + + + CULTURE, R/O MSSA/MRSA (02/11/2018 11:32 AM PDT) + + | Specimen | + + | Swab | + + + + + | Narrative | Performed At | + + + | Culture Report: No Methicillin resistant Staphylococcus aureus | [facility] - | | isolated No Methicillin susceptible Staphylococcus aureus isolated. | [facility] | | | [place] | + + + + + + + + | Performing | Address | City/State/Zipcode | Phone Number | | Organization | | | | + + + + + | [facility] | [address] | [place] [address] | | | [place] | | | | + + + + + TRANSTHORACIC ECHOCARDIOGRAM, ADULT (02/11/2018 8:54 AM PDT) + + + + + + | Component | Value | Ref Range | Performed | Pathologist | | | | | At | Signature | + + + + + + | BIPLANE, EF | 57 | | [facility] | | | | | | OF | | | | | | CARDIOLOGY | | + + + + + + | EJECTION | 55 to 60 | | [facility] | | | FRACTION | | | OF | | | | | | CARDIOLOGY | | + + + + + + | LA | 3.5 | | [facility] | | | DIMENSION | | | OF | | | | | | CARDIOLOGY | | + + + + + + | LVIDD | 4.8 | | [facility] | | | | | | OF | | | | | | CARDIOLOGY | | + + + + + + | MV A VMAX | 1.0 | | [facility] | | | | | | OF | | | | | | CARDIOLOGY | | + + + + + + | MV E? | 0.1 | | [facility] | | | | | | OF | | | | | | CARDIOLOGY | | + + + + + + | MV E VMAX | 1.1 | | [facility] | | | | | | OF | | | | | | CARDIOLOGY | | + + + + + + | RV TAPSE | 2.1 | | [facility] | | | | | | OF | | | | | | CARDIOLOGY | | + + + + + + | RV TDI S? | 17.4 | | [facility] | | | | | | OF | | | | | | CARDIOLOGY | | + + + + + + | EJECTION | 57.5 | % | [facility] | | | FRACTION | | | OF | | | RANGE MEAN | | | CARDIOLOGY | | | VALUE | | | | | + + + + + + + + | Specimen | + + | | + + + + + | Narrative | Performed At | + + + | [facility] | [facility] | | [facility] Adult Echocardiography | CARDIOLOGY | | Laboratory [address] [place] [address], | | | [place] [address] Pt Name: | | | SARAH REEVES Study Date/Time 02/11/2018 / 8:54:59 | | | AMMRN: [id number] Most recent | | | prior: 0Acc #: [id number] No. previous | | | echos: 0DOB: 1955 62 years Heart Rate: | | | 91 bpmHeight: 66.0 in Blood | | | Pressure: 134/62 mm/HgWeight: 357.0 | | | lb Gender: | | | FBSA: 2.56 m2 Order | | | ID: [id number] [employer] Umpire: Trent Martinez MA, | | | [facility] Referring Provider: Chad Gamble Location: [address] [place] [address] | | | Performed: 2D, Color flow, Spectral Doppler and Definity | | | contrast.Study Quality: This was a technically difficult study, but | | | image quality improved with echo contrast.Exam Indication: Reevaluate | | | LV function to guide therapyHistory: admitted to the MICU for acute | | | hypoxemic hypercarbic respiratory failure that required intubation | | | Patient history has been obtained from the EHR Transthoracic | | | Echocardiographic Report | | | + | | | ---------+Final | | | Impressions: | | | | | | | | | | | | | | | | | | 1. The left ventricular cavity size is | | | normal. | | | 2. The LV function is | | | normal. | | | 3. Left ventricular systolic | | | thickening is segmentally abnormal (see comments | | | below). 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 4. Right ventricular size, | | | thickness and function are normal. 5. | | | There are no prior exams available for | | | comparison. | | | | | | | | | + | | | + Description of Findings: Cardiac Rhythm: | | | Normal sinus rhythm.Left Ventricle: The left ventricular cavity size | | | is normal. Visually estimated left ventricular ejection fraction is 55 | | | - 60%. The ejection fraction is 56.6 % as measured by Ag's | | | biplane method. The LV function is normal. Due to poor endocardial | | | definition, ultrasound contrast was used (Lumason).Left Ventricular | | | Wall Motion: The apical septal segment, apical anterior segment, and | | | apex are akinetic. All remaining scored segments are normal. Left | | | ventricular systolic thickening is segmentally abnormal.Atria: Left | | | atrial size is normal. Normal right atrium.Right Ventricle: Right | | | ventricular size, thickness and function are normal. TAPSE measures | | | 2.13cm. The RV TDI s' velocity is 17.4cm/sec.Aortic Valve: The aortic | | | valve is trileaflet.Mitral Valve: The mitral valve is structurally | | | normal. No evidence of mitral valve stenosis.Tricuspid Valve: The | | | tricuspid valve is structurally normal.Pulmonic Valve: The pulmonic | | | valve is structurally normal. The peak trans pulmonic gradient is 5.1 | | | mmHg.Aorta: Visualized portions of the ascending aorta and aortic root | | | appear normal.Venous: Inferior vena cava is normal with normal | | | inspiratory collapse.Pericardium: No pericardial effusion is seen. | | | Additional Findings: There are no prior exams.2D | | | Measurements Doppler Measurements | | | 2D NL Values Aortic | | | MitralLVID(d) 4.82 (3.5-5.7cm) Max Dave 1.56 Peak | | | E 1.14 | | | cm | | | m/s m/sLVID(s) 3.05 | | | Mean grad 6.0 Peak | | | A 0.98 | | | cm | | | mmHg m/sIVS(d) 1.28 (0.6-1.1cm) | | | LVOT Dave 1.08 E/A Ratio 1.16 | | | cm | | | m/sLVPW(d) 0.81 | | | (0.6-1.1cm) TDI | | | (E/e') 12.7 cm | | | LVOT Diam 2.10 MV mn gdLA A/Ps 2D 3.50 | | | (2.7-3.9cm) cm | | | cm Tricuspid PulmonicLA vol | | | A/L 43.2 (40-73ml) TR Vmax PV Vmax | | | 1.1BP | | | ml | | | m/sLA vol A/L 16.9 | | | (16-34)index ml/m2 Aorta: | | | Index:LA vol MOD 41.9 | | | (40-73ml) Ao Sinus 3.10 (2.1-3.5cm) 12.1BP | | | ml | | | cm mm/m2LA vol MOD 16.4 | | | (16-34) Asc Ao 3.50 | | | 13.7index ml/m2 (prox) cm | | | mm/m2 Biplane EF 56.6 %Evaluation of | | | chamber size and geometry is accomplished through the incorporation of | | | linear, volumetric, and indexed values Wall Scoring: Report | | | electronically signed by: [id number] Arden Donaldson MD (02/11/2018, | | | 1:20:19 PM) Final | | | | | | | | | | | | Final | | + + + + + | Procedure Note | + + | Interface, Cardiology Results - 02/11/2018 1:20 PM [facility] | | [facility] Echocardiography Laboratory [address] [place] [address] | | [place], [place] [address] Pt Name: SARAH | | LAL[place] Study Date/Time 02/11/2018 / 8:54:59 AMMRN: [id number] Most | | recent prior: 0Acc #: [id number] No. previous echos: 0DOB: 1955 62 | | years Heart Rate: 91 bpmHeight: 66.0 in Blood Pressure: | | 134/62 mm/HgWeight: 357.0 lb Gender: FBSA: 2.56 m2 | | Order ID: [id number] [employer] Umpire: Trent Martinez MA, RDCSReferring Provider: | | Chad Gamble Location: [facility] Performed: 2D, Color flow, Spectral | | Doppler and Definity contrast.Study Quality: This was a technically difficult study, but | | image quality improved with echo contrast.Exam Indication: Reevaluate LV function to | | guide therapyHistory: admitted to the MICU for acute hypoxemic hypercarbic respiratory | | failure that required intubation Patient history has been obtained from the EHR | | Transthoracic Echocardiographic | | Report+ +Fi | | nal Impressions: | | | | 1. The left ventricular cavity | | size is normal. 2. The LV function is normal. | | 3. Left ventricular systolic thickening is | | segmentally abnormal (see comments below). Findings suggest prior LAD territory | | infarct. 4. Right ventricular size, thickness and function are normal. | | 5. There are no prior exams available for comparison. | | | | + + | | Description of Findings: Cardiac Rhythm: Normal sinus rhythm.Left Ventricle: The left | | ventricular cavity size is normal. Visually estimated left ventricular ejection fraction | | is 55 - 60%. The ejection fraction is 56.6 % as measured by Ag's biplane method. | | The LV function is normal. Due to poor endocardial definition, ultrasound contrast was | | used ([place]umason).Left Ventricular Wall Motion: The apical septal segment, apical anterior | | segment, and apex are akinetic. All remaining scored segments are normal. Left | | ventricular systolic thickening is segmentally abnormal.Atria: Left atrial size is | | normal. Normal right atrium.Right Ventricle: Right ventricular size, thickness and | | function are normal. TAPSE measures 2.13cm. The RV TDI s' velocity is 17.4cm/sec.Aortic | | Valve: The aortic valve is trileaflet.Mitral Valve: The mitral valve is structurally | | normal. No evidence of mitral valve stenosis.Tricuspid Valve: The tricuspid valve is | | structurally normal.Pulmonic Valve: The pulmonic valve is structurally normal. The peak | | trans pulmonic gradient is 5.1 mmHg.Aorta: Visualized portions of the ascending aorta | | and aortic root appear normal.Venous: Inferior vena cava is normal with normal | | inspiratory collapse.Pericardium: No pericardial effusion is seen. Additional Findings: | | There are no prior exams.2D Measurements Doppler Measurements | | 2D NL Values Aortic MitralLVID(d) 4.82 (3.5-5.7cm) Max Dave 1.56 | | Peak E 1.14 cm m/s m/sLVID(s) | | 3.05 Mean grad 6.0 Peak A 0.98 cm | | mmHg m/sIVS(d) 1.28 (0.6-1.1cm) LVOT Dave 1.08 E/A Ratio 1.16 | | cm m/sLVPW(d) 0.81 (0.6-1.1cm) TDI | | (E/e') 12.7 cm LVOT Diam 2.10 MV mn gdLA A/Ps 2D 3.50 | | (2.7-3.9cm) cm cm Tricuspid PulmonicLA vol A/L | | 43.2 (40-73ml) TR Vmax PV Vmax 1.1BP ml | | m/sLA vol A/L 16.9 (16-34)index ml/m2 Aorta: | | Index:LA vol MOD 41.9 (40-73ml) Ao Sinus 3.10 (2.1-3.5cm) 12.1BP | | ml cm mm/m2LA vol MOD 16.4 (16-34) | | Asc Ao 3.50 13.7index ml/m2 (prox) cm | | mm/m2 Biplane EF 56.6 %Evaluation of chamber size and geometry is accomplished through | | the incorporation of linear, volumetric, and indexed values Wall Scoring: Report | | electronically signed by: [id number] Arden Donaldson MD (02/11/2018, 1:20:19 PM) Final | | | |Mitral Valve: The mitral valve is structurally normal. No evidence of mitral valve | |stenosis. | |Tricuspid Valve: The tricuspid valve is structurally normal. | |Pulmonic Valve: The pulmonic valve is structurally normal. The peak trans pulmonic | |gradient is 5.1 mmHg. | |Aorta: Visualized portions of the ascending aorta and aortic root appear normal. | |Venous: Inferior vena cava is normal with normal inspiratory collapse. | |Pericardium: No pericardial effusion is seen. | | | |Additional Findings: There are no prior exams. | |2D Measurements Doppler Measurements | | | | 2D NL Values Aortic Mitral | |LVID(d) 4.82 (3.5-5.7cm) Max Dave 1.56 Peak E 1.14 | | cm m/s m/s | |LVID(s) 3.05 Mean grad 6.0 Peak A 0.98 | | cm mmHg m/s | |IVS(d) 1.28 (0.6-1.1cm) LVOT Dave 1.08 E/A Ratio 1.16 | | cm m/s | |LVPW(d) 0.81 (0.6-1.1cm) TDI (E/e') 12.7 | | cm LVOT Diam 2.10 MV mn gd | |LA A/Ps 2D 3.50 (2.7-3.9cm) cm | | cm Tricuspid Pulmonic | |LA vol A/L 43.2 (40-73ml) TR Vmax PV Vmax 1.1 | |BP ml m/s | |LA vol A/L 16.9 (16-34) | |index ml/m2 Aorta: Index: | |LA vol MOD 41.9 (40-73ml) Ao Sinus 3.10 (2.1-3.5cm) 12.1 | |BP ml cm mm/m2 | |LA vol MOD 16.4 (16-34) Asc Ao 3.50 13.7 | |index ml/m2 (prox) cm mm/m2 | | | |Biplane EF 56.6 % | |Evaluation of chamber size and geometry is accomplished through the incorporation of | |linear, volumetric, and indexed values | | | |Wall Scoring: | | | | | |Report electronically signed by: [id number] Arden Donaldson MD (02/11/2018, 1:20:19 PM) | | | | | | | | Final | + + + + + + + | Performing | Address | City/State/Zipcode | Phone Number | | Organization | | | | + + + + + | [facility] | [address] | [place], [place] | | | CARDIOLOGY | [address] | [address] | | + + + + + LAB HOLD - URINE (02/11/2018 1:00 AM PDT) + + | Specimen | + + | Urine | + + + + + + + | Performing | Address | City/State/Zipcode | Phone Number | | Organization | | | | + + + + + | [facility] | [address] | [place] [address] | | | SERVICES, CORE | [address] | | | + + + + + 12 LEAD ECG (02/11/2018 12:51 AM PDT) + + + + + + | Component | Value | Ref Range | Performed | Pathologist | | | | | At | Signature | + + + + + + | VENTRICULAR | 64 | bpm | [facility] | | | RATE | | | OF | | | | | | CARDIOLOGY | | + + + + + + | ATRIAL RATE | 64 | ms | [facility] | | | | | | OF | | | | | | CARDIOLOGY | | + + + + + + | P-R | 160 | ms | [facility] | | | INTERVAL | | | OF | | | | | | CARDIOLOGY | | + + + + + + | P AXIS | 48 | deg | [facility] | | | | | | OF | | | | | | CARDIOLOGY | | + + + + + + | QRS | 77 | ms | [facility] | | | DURATION | | | OF | | | | | | CARDIOLOGY | | + + + + + + | QT | 459 | ms | [facility] | | | | | | OF | | | | | | CARDIOLOGY | | + + + + + + | QTCB | 474 | ms | [facility] | | | | | | OF | | | | | | CARDIOLOGY | | + + + + + + | R AXIS | -58 | deg | [facility] | | | | | | OF | | | | | | CARDIOLOGY | | + + + + + + | T AXIS | 72 | deg | [facility] | | | | | | OF | | | | | | CARDIOLOGY | | + + + + + + | ECG | Sinus rhythm | | [facility] | | | IMPRESSION | | | OF | | | | | | CARDIOLOGY | | + + + + + + | ECG | Low voltage, precordial | | [facility] | | | IMPRESSION | leads | | OF | | | | | | CARDIOLOGY | | + + + + + + | ECG | Consider anteroseptal | | [facility] | | | IMPRESSION | infarct- ABNORMAL ECG - | | OF | | | | | | CARDIOLOGY | | + + + + + + | ECG | Electronically signed | | [facility] | | | IMPRESSION | by: TYLOR RUIZ | | OF | | | | 02-11-2018 12:21:34 | | CARDIOLOGY | | + + + + + + + + | Specimen | + + | | + + + + + | Narrative | Performed At | + + + | | | + + + + + + + + | Performing | Address | City/State/Zipcode | Phone Number | | Organization | | | | + + + + + | [facility] | [address] | [place], [place] | | | CARDIOLOGY | [address] | [address] | | + + + + + X-RAY PORTABLE CHEST 1 VIEW (02/11/2018 12:42 AM PDT) + + | Specimen | + + | | + + + + + | Narrative | Performed At | + + + | STUDY: Portable chest radiograph HISTORY: Intubated | [facility] | | COMPARISON: 02/10/2018 FINDINGS: Endotracheal tube tip | RADIOLOGY VOICE | | terminates approximately 5 cm above the jim. An enteric tube | RECOGNITION | | travels caudally beyond the [id number]. Low lung volumes. Unchanged | | | appearance of the cardiomediastinal silhouette which is partially | | | obscured by the bilateral diffuse airspace opacities. No large | | | pneumothorax. Probable small bilateral pleural effusions. The | | | distribution of the air space opacities have not significantly | | | changed. No acute osseous abnormalities. IMPRESSION: | | | Redemonstration of diffuse bilateral extensive patchy airspace | | | opacities. Enteric tube tip terminates approximately 5 cm above | | | the jim. I have personally reviewed the images and, if | | | necessary, edited the report. I agree with the report as now | | | presented. | | + + + + + | Procedure Note | + + | Service Account, [employer] Res In Interface - 02/11/2018 9:22 AM PDT STUDY: Portable | | chest radiograph HISTORY: IntubatedCOMPARISON: 02/10/2018FINDINGS: Endotracheal tube tip | | terminates approximately 5 cm above the jim. An enteric tube travels caudally beyond | | the tswzj-ci-vbxl. Low lung volumes. Unchanged appearance of the cardiomediastinal | | silhouette which is partially obscured by the bilateral diffuse airspace opacities. No | | large pneumothorax. Probable small bilateral pleural effusions. The distribution of the | | air space opacities have not significantly changed. No acute osseous | | abnormalities.IMPRESSION: Redemonstration of diffuse bilateral extensive patchy airspace | | opacities.Enteric tube tip terminates approximately 5 cm above the jmi.I have | | personally reviewed the images and, if necessary, edited the report. I agree with the | | report as now presented. | |IMPRESSION: | | | |Redemonstration of diffuse bilateral extensive patchy airspace opacities. | | | |Enteric tube tip terminates approximately 5 cm above the jim. | | | | | |I have personally reviewed the images and, if necessary, edited the report. I agree with t he report as now presented. | + + + +---------+ + + | Performing | Address | City/State/Zipcode | Phone Number | | Organization | | | | + +---------+ + + | [facility] | | | | | VOICE RECOGNITION | | | | + +---------+ + + LEGIONELLA AG, URINE (02/11/2018 12:41 AM PDT) + + + + + + | Component | Value | Ref Range | Performed | Pathologist | | | | | At | Signature | + + + + + + | LEGIONELLA | NegativeComment: Sample | Negative | [facility] | | | AG, UR | is negative for the | | REG UNIV | | | | presence of L. | | PTH - [facility] | | | | pneumophila serogroup 1 | | | | | | antigen in urine, | | | | | | suggesting no recent or | | | | | | current infection. | | | | | | Legionnaires' Disease | | | | | | cannot be ruled out | | | | | | since other serogroups | | | | | | and species may also | | | | | | cause | | | | | | disease.INTERPRETIVE | | | | | | INFORMATION: Legionella | | | | | | pneumophila Antigen, | | | | | | UrineThis assay detects | | | | | | Legionella pneumophila | | | | | | serogroup one (1) | | | | | | antigen.Performed by | | | | | | [facility],[address] | | | | | [address] [facility] [place] | | | | | | [phone] | | | | | | [phone].[employer]. | | | | | | Sherwin tyler MD, | | | | | | Lab. Director | | | | + + + + + + + + | Specimen | + + | Urine | + + + + + + + | Performing | Address | City/State/Zipcode | Phone Number | | Organization | | | | + + + + + | [facility] | [address] | [place], [place] | | | UNIV P[facility] | | [address] | | + + + + + STREP PNEUMONIAE AG, URINE (02/11/2018 12:41 AM PDT) + + + + + + | Component | Value | Ref Range | Performed | Pathologist | | | | | At | Signature | + + + + + + | STREP. | NegativeComment: | Negative | [facility] | | | PNEUMONIAE | INTERPRETIVE | | REG UNIV | | | AG, URINE | INFORMATION: | | P[facility] - [facility] | | | | Streptococcus pneumoniae | | | | | | Ag, | | | | | | UrineFalse-positives may | | | | | | occur because of | | | | | | cross-reactivity with | | | | | | other members of the S. | | | | | | mitis group. Clinical | | | | | | correlation is | | | | | | recommended.Performed by | | | | | | [facility],[address] | | | | | | [address], [facility] [place] | | | | | | [address] | | | | | | [phone][employer]. | | | | | | Sherwin tyler MD, | | | | | | Lab. Director | | | | + + + + + + + + | Specimen | + + | Urine | + + + + + + + | Performing | Address | City/State/Zipcode | Phone Number | | Organization | | | | + + + + + | [facility] | [address] | [place], [place] | | | UN[facility] | | [address] | | + + + + + CULTURE, BLOOD BACTI & YEAST PATRICIA (02/11/2018 12:40 AM PDT) + + + + + + | Component | Value | Ref Range | Performed | Pathologist | | | | | At | Signature | + + + + + + | CULTURE | Final Report:No Bacteria | | [facility] | | | RESULT | or Yeast isolated at 5 | | LABORATORY | | | | days. | | SERVICES, | | | | | | CORE | | + + + + + + + + | Specimen | + + | Blood - Venipuncture | + + + + + + + | Performing | Address | City/State/Zipcode | Phone Number | | Organization | | | | + + + + + | [facility] | [address] | [place] [address] | | | SERVICES, CORE | [address] | | | + + + + + CULTURE, BLOOD BACTI & YEAST [facility] (02/11/2018 12:40 AM PDT) + + + + + + | Component | Value | Ref Range | Performed | Pathologist | | | | | At | Signature | + + + + + + | CULTURE | Final Report:No Bacteria | | [facility] | | | RESULT | or Yeast isolated at 5 | | LABORATORY | | | | days. | | SERVICES, | | | | | | CORE | | + + + + + + + + | Specimen | + + | Blood - Venipuncture | + + + + + + + | Performing | Address | City/State/Zipcode | Phone Number | | Organization | | | | + + + + + | [facility] | [address] | [place] [address] | | | SERVICES, CORE | [address] | | | + + + + + RESPIRATORY PATHOGEN PANEL PCR (02/11/2018 12:40 AM PDT) + + + + + + | Component | Value | Ref Range | Performed | Pathologist | | | | | At | Signature | + + + + + + | ADENOVIRUS | Not Detected | Not Detected | [facility] | | | PCR | | | LABORATORY | | | | | | SERVICES, | | | | | | CORE | | + + + + + + | CORONAVIRUS | Not Detected | Not Detected | [facility] | | | 229E PCR | | | LABORATORY | | | | | | SERVICES, | | | | | | CORE | | + + + + + + | CORONAVIRUS | Not Detected | Not Detected | [facility] | | | HKU1 PCR | | | LABORATORY | | | | | | SERVICES, | | | | | | CORE | | + + + + + + | CORONAVIRUS | Not Detected | Not Detected | [facility] | | | NL63 PCR | | | LABORATORY | | | | | | SERVICES, | | | | | | CORE | | + + + + + + | CORONAVIRUS | Not Detected | Not Detected | [facility] | | | OC43 PCR | | | LABORATORY | | | | | | SERVICES, | | | | | | CORE | | + + + + + + | METAPNEUMOV | Detected (AA) | Not Detected | [facility] | | | IRUS PCR | | | LABORATORY | | | | | | SERVICES, | | | | | | CORE | | + + + + + + | RHINOVIRUS/ | Not Detected | Not Detected | [facility] | | | ENTEROVIRUS | | | LABORATORY | | | PCR | | | SERVICES, | | | | | | CORE | | + + + + + + | INFLUENZA A | Not Detected | Not Detected | [facility] | | | PCR | | | LABORATORY | | | | | | SERVICES, | | | | | | CORE | | + + + + + + | INFLUENZA A | Not Detected | Not Detected | [facility] | | | SUBTYPE H1 | | | LABORATORY | | | PCR | | | SERVICES, | | | | | | CORE | | + + + + + + | INFLUENZA A | Not Detected | Not Detected | [facility] | | | H1-2008 | | | LABORATORY | | | PCR | | | SERVICES, | | | | | | CORE | | + + + + + + | INFLUENZA A | Not Detected | Not Detected | [facility] | | | H3 PCR | | | LABORATORY | | | | | | SERVICES, | | | | | | CORE | | + + + + + + | INFLUENZA B | Not Detected | Not Detected | [facility] | | | PCR | | | LABORATORY | | | | | | SERVICES, | | | | | | CORE | | + + + + + + | PARAINFLUEN | Not Detected | Not Detected | [facility] | | | ZA 1 PCR | | | LABORATORY | | | | | | SERVICES, | | | | | | CORE | | + + + + + + | PARAINFLUEN | Not Detected | Not Detected | [facility] | | | ZA 2 PCR | | | LABORATORY | | | | | | SERVICES, | | | | | | CORE | | + + + + + + | PARAINFLUEN | Not Detected | Not Detected | [facility] | | | ZA 3 PCR | | | LABORATORY | | | | | | SERVICES, | | | | | | CORE | | + + + + + + | PARAINFLUEN | Not Detected | Not Detected | [facility] | | | ZA 4 PCR | | | LABORATORY | | | | | | SERVICES, | | | | | | CORE | | + + + + + + | RSV PCR | Not Detected | Not Detected | [facility] | | | | | | LABORATORY | | | | | | SERVICES, | | | | | | CORE | | + + + + + + | BORDETELLA | Not Detected | Not Detected | [facility] | | | PERTUSSIS | | | LABORATORY | | | PCR | | | SERVICES, | | | | | | CORE | | + + + + + + | CHLAMYDOPHI | Not Detected | Not Detected | [facility] | | | LA | | | LABORATORY | | | PNEUMONIAE | | | SERVICES, | | | PCR | | | CORE | | + + + + + + | MYCOPLASMA | Not Detected | Not Detected | [facility] | | | PNEUMONIAE | | | LABORATORY | | | PCR | | | SERVICES, | | | | | | CORE | | + + + + + + + + | Specimen | + + | Swab - Nasopharynx | + + + + + + + | Performing | Address | City/State/Zipcode | Phone Number | | Organization | | | | + + + + + | [facility] | [address] | [place] [address] | | | SERVICES, CORE | [address] | | | + + + + + LACTATE (02/11/2018 12:40 AM PDT) + +-------+ + + + | Component | Value | Ref Range | Performed | Pathologist | | | | | At | Signature | + +-------+ + + + | LACTATE | 1.1 | mmol/L | [facility] | | | | | | LABORATORY | | | | | | SERVICES, | | | | | | CORE | | + +-------+ + + + + + | Specimen | + + | Blood | + + + + + | Narrative | Performed At | + + + | Reference Range: Venous blood: 0.5 - 2.2 mmol/L Critical | [facility] | | >= 4.0 mmol/L Arterial blood: 0.5 - 1.6 mmol/L Critical >= 4.0 | LABORATORY | | mmol/L | [facility] | + + + + + + + + | Performing | Address | City/State/Zipcode | Phone Number | | Organization | | | | + + + + + | [facility] | [address] | [place] [address] | | | [place] | [address] | | | + + + + + BLOOD GASES, ARTERIAL - LAB (02/11/2018 12:40 AM PDT) + + + + + + | Component | Value | Ref Range | Performed | Pathologist | | | | | At | Signature | + + + + + + | FIO2 | 0.40Comment: This is an | | [facility] | | | ARTERIAL | addended result. | | LABORATORY | | | | Previous result was | | SERVICES, | | | | blank on 02/11/2018 at | | CORE | | | | 0104 PDT. | | | | + + + + + + | PH ARTERIAL | 7.39 | 7.37 - 7.44 | [facility] | | | | | | LABORATORY | | | | | | SERVICES, | | | | | | CORE | | + + + + + + | PCO2 | 41 | 32 - 43 mmHg | [facility] | | | ARTERIAL | | | LABORATORY | | | | | | SERVICES, | | | | | | CORE | | + + + + + + | PO2 | 63 (L) | 72 - 104 mmHg | [facility] | | | ARTERIAL | | | LABORATORY | | | | | | SERVICES, | | | | | | CORE | | + + + + + + | HCO3 | 24 | 21 - 28 mmol/L | [facility] | | | ARTERIAL | | | LABORATORY | | | | | | SERVICES, | | | | | | CORE | | + + + + + + | TOTAL CO2 | 26 | 22 - 28 mmol/L | [facility] | | | ARTERIAL | | | LABORATORY | | | | | | SERVICES, | | | | | | CORE | | + + + + + + | BASE EXCESS | 0.0 | -2.0 - 2.0 | [facility] | | | ARTERIAL | | mmol/L | LABORATORY | | | | | | SERVICES, | | | | | | CORE | | + + + + + + | O2 SAT, | 94.3 | 92.0 - 98.0 % | [facility] | | | ARTERIAL | | | LABORATORY | | | | | | SERVICES, | | | | | | CORE | | + + + + + + | PAO2/FIO2 | 158 (L)Comment: This is | >300 mmHg | [facility] | | | RATIO | an addended result. | | LABORATORY | | | | Previous result was | | SERVICES, | | | | blank on 02/11/2018 at | | CORE | | | | 0104 PDT. | | | | + + + + + + + + | Specimen | + + | Blood | + + + + + + + | Performing | Address | City/State/Zipcode | Phone Number | | Organization | | | | + + + + + | [facility] | [address] | [place] [address] | | | SERVICES, CORE | [address] | | | + + + + + CULTURE, SPUTUM (02/11/2018 12:40 AM PDT) + + | Specimen | + + | Sputum | + + + + + | Narrative | Performed At | + + + | Culture Report: No growth Gram Stain: No squamous epithelial | [facility] - | | cells Moderate polymorphonuclear cells No organisms seen | [facility] - | | | [place] | + + + + + + + + | Performing | Address | City/State/Zipcode | Phone Number | | Organization | | | | + + + + + | [facility] | [address] | [place] [address] | | | [place] | | | | + + + + + NT-PRO BNP (02/11/2018 12:36 AM PDT) + + + + + + | Component | Value | Ref Range | Performed | Pathologist | | | | | At | Signature | + + + + + + | NT-PRO BNP | 2,080 (H) | <125 pg/mL | [facility] | | | | | | LABORATORY | | | | | | SERVICES, | | | | | | CORE | | + + + + + + + + | Specimen | + + | Blood | + + + + + + + | Performing | Address | City/State/Zipcode | Phone Number | | Organization | | | | + + + + + | [facility] | [address] | [place] [address] | | | SERVICES, CORE | [address] | | | + + + + + TROPONIN I, PLASMA (02/11/2018 12:36 AM PDT) + +-------+ + + + | Component | Value | Ref Range | Performed | Pathologist | | | | | At | Signature | + +-------+ + + + | TROPONIN I | <0.02 | <0.80 ng/mL | [facility] | | | | | | LABORATORY | | | | | | SERVICES, | | | | | | CORE | | + +-------+ + + + + + | Specimen | + + | Blood | + + + + + + + | Performing | Address | City/State/Zipcode | Phone Number | | Organization | | | | + + + + + | [facility] | [address] | [place] [address] | | | SERVICES, CORE | [address] | | | + + + + + CBC AND AUTO DIFF (02/11/2018 12:36 AM PDT) + + + + + + | Component | Value | Ref Range | Performed | Pathologist | | | | | At | Signature | + + + + + + | WHITE CELL | 10.69 | 3.50 - 10.80 | [facility] | | | COUNT | | K/cu mm | LABORATORY | | | | | | SERVICES, | | | | | | CORE | | + + + + + + | RED CELL | 4.15 | 4.00 - 5.20 | [facility] | | | COUNT | | M/cu mm | LABORATORY | | | | | | SERVICES, | | | | | | CORE | | + + + + + + | HEMOGLOBIN | 11.7 (L) | 12.0 - 16.0 | [facility] | | | | | g/dL | LABORATORY | | | | | | SERVICES, | | | | | | CORE | | + + + + + + | HEMATOCRIT | 37.0 | 36.0 - 46.0 % | [facility] | | | | | | LABORATORY | | | | | | SERVICES, | | | | | | CORE | | + + + + + + | MCV | 89.2 | 80.0 - 96.0 fL | [facility] | | | | | | LABORATORY | | | | | | SERVICES, | | | | | | CORE | | + + + + + + | MCHC | 31.6 | 33.0 - 35.5 | [facility] | | | | | g/dL | LABORATORY | | | | | | SERVICES, | | | | | | CORE | | + + + + + + | RDW SD | 46.4 (H) | 35.1 - 46.3 fL | [facility] | | | | | | LABORATORY | | | | | | SERVICES, | | | | | | CORE | | + + + + + + | PLATELET | 168 | 150 - 400 K/cu | [facility] | | | COUNT | | mm | LABORATORY | | | | | | SERVICES, | | | | | | CORE | | + + + + + + | MPV | 9.5 (L) | 9.7 - 12.3 fL | [facility] | | | | | | LABORATORY | | | | | | SERVICES, | | | | | | CORE | | + + + + + + | NRBC% | 0.0 | 0.0 - 0.3 % | [facility] | | | | | | LABORATORY | | | | | | SERVICES, | | | | | | CORE | | + + + + + + | NRBC# | 0.00 | 0.00 - 0.02 | [facility] | | | | | K/cu mm | LABORATORY | | | | | | SERVICES, | | | | | | CORE | | + + + + + + | NEUTROPHIL | 90.2 (H) | 50.0 - 70.0 % | [facility] | | | % | | | LABORATORY | | | | | | SERVICES, | | | | | | CORE | | + + + + + + | LYMPHOCYTE | 7.0 (L) | 18.0 - 42.0 % | [facility] | | | % | | | LABORATORY | | | | | | SERVICES, | | | | | | CORE | | + + + + + + | MONOCYTE % | 2.0 (L) | 3.5 - 9.0 % | [facility] | | | | | | LABORATORY | | | | | | SERVICES, | | | | | | CORE | | + + + + + + | EOS % | 0.0 (L) | 1.0 - 3.0 % | [facility] | | | | | | LABORATORY | | | | | | SERVICES, | | | | | | CORE | | + + + + + + | BASO % | 0.3 | 0.0 - 2.0 % | [facility] | | | | | | LABORATORY | | | | | | SERVICES, | | | | | | CORE | | + + + + + + | IG% | 0.5Comment: Increased | 0.0 - 1.0 % | [facility] | | | | immature granulocytes | | LABORATORY | | | | (IG) define a left | | SERVICES, | | | | shift. Immature | | CORE | | | | granulocytes (IG) are an | | | | | | automated count of | | | | | | metamyelocytes, | | | | | | myelocytes and | | | | | | promyelocytes. Bands | | | | | | are not included in the | | | | | | IG count. Bands are | | | | | | included in the | | | | | | neutrophil count. | | | | + + + + + + | NEUTROPHIL | 9.65 (H) | 1.80 - 7.70 | [facility] | | | # | | K/cu mm | LABORATORY | | | | | | SERVICES, | | | | | | CORE | | + + + + + + | LYMPHOCYTE | 0.75 (L) | 1.00 - 4.80 | [facility] | | | # | | K/cu mm | LABORATORY | | | | | | SERVICES, | | | | | | CORE | | + + + + + + | MONOCYTE # | 0.21 | 0.10 - 0.90 | [facility] | | | | | K/cu mm | LABORATORY | | | | | | SERVICES, | | | | | | CORE | | + + + + + + | EOS # | 0.00 | 0.00 - 0.50 | [facility] | | | | | K/cu mm | LABORATORY | | | | | | SERVICES, | | | | | | CORE | | + + + + + + | BASO # | 0.03 | 0.00 - 0.10 | [facility] | | | | | K/cu mm | LABORATORY | | | | | | SERVICES, | | | | | | CORE | | + + + + + + | IG# | 0.05 | 0.00 - 0.10 | [facility] | | | | | K/cu mm | LABORATORY | | | | | | SERVICES, | | | | | | CORE | | + + + + + + + + | Specimen | + + | Blood | + + + + + | Narrative | Performed At | + + + | New reference ranges for IG% and IG# effective 12/02/2017. | [facility] | | Increased immature granulocytes (IG) define a left shift. Immature | LABORATORY | | granulocytes (IG) are an automated count of metamyelocytes, myelocytes | SERVICES, CORE | | and promyelocytes. Bands are not included in the IG count. Bands are | | | included in the neutrophil count. | | + + + + + + + + | Performing | Address | City/State/Zipcode | Phone Number | | Organization | | | | + + + + + | [facility] | [address] | [place] [address] | | | SERVICES, CORE | [address] | | | + + + + + PHOSPHORUS, PLASMA (02/11/2018 12:36 AM PDT) + +---------+ + + + | Component | Value | Ref Range | Performed | Pathologist | | | | | At | Signature | + +---------+ + + + | PHOSPHORUS, | 1.8 (L) | 2.4 - 4.7 mg/dL | [facility] | | | PLASMA | | | LABORATORY | | | (LAB) | | | SERVICES, | | | | | | CORE | | + +---------+ + + + + + | Specimen | + + | Blood | + + + + + + + | Performing | Address | City/State/Zipcode | Phone Number | | Organization | | | | + + + + + | [facility] | [address] | [place] [address] | | | SERVICES, CORE | [address] | | | + + + + + MAGNESIUM, PLASMA (02/11/2018 12:36 AM PDT) + +-------+ + + + | Component | Value | Ref Range | Performed | Pathologist | | | | | At | Signature | + +-------+ + + + | MAGNESIUM,P | 2.1 | 1.6 - 2.6 mg/dL | [facility] | | | LASMA | | | LABORATORY | | | | | | SERVICES, | | | | | | CORE | | + +-------+ + + + + + | Specimen | + + | Blood | + + + + + | Narrative | Performed At | + + + | Reference range change effective 06/26/17. | [facility] | | | LABORATORY | | | SERVICES, CORE | + + + + + + + + | Performing | Address | City/State/Zipcode | Phone Number | | Organization | | | | + + + + + | [facility] | [address] | [place] [address] | | | SERVICES, CORE | [address] | | | + + + + + COMPLETE METABOLIC SET (NA,K,CL,CO2,BUN,CREAT,GLUC,CA,AST,ALT,BILI TOTAL,ALK PHOS,ALB,PROT TOTAL) (02/11/2018 12:36 AM PDT) + + + + + + | Component | Value | Ref Range | Performed | Pathologist | | | | | At | Signature | + + + + + + | GLUCOSE, | 158 (H) | 70 - 99 mg/dL | [facility] | | | PLASMA | | | LABORATORY | | | (LAB) | | | SERVICES, | | | | | | CORE | | + + + + + + | BUN, PLASMA | 29 (H) | 6 - 20 mg/dL | [facility] | | | (LAB) | | | LABORATORY | | | | | | SERVICES, | | | | | | CORE | | + + + + + + | CREATININE | 1.23 (H) | 0.60 - 1.10 | [facility] | | | PLASMA | | mg/dL | LABORATORY | | | (LAB) | | | SERVICES, | | | | | | CORE | | + + + + + + | EGFR | 54 (L) | >60 mL/min | [facility] | | | - | | | LABORATORY | | | [place] | | | SERVICES, | | | | | | CORE | | + + + + + + | EGFR NON | 44 (L) | >60 mL/min | [facility] | | | -[facility] | | | LABORATORY | | | [facility] | | | SERVICES, | | | | | | CORE | | + + + + + + | SODIUM, | 135 (L) | 136 - 145 | [facility] | | | PLASMA | | mmol/L | LABORATORY | | | (LAB) | | | SERVICES, | | | | | | CORE | | + + + + + + | POTASSIUM, | 4.5 | 3.4 - 5.0 | [facility] | | | PLASMA | | mmol/L | LABORATORY | | | (LAB) | | | SERVICES, | | | | | | CORE | | + + + + + + | CHLORIDE, | 103 | 97 - 108 mmol/L | [facility] | | | PLASMA | | | LABORATORY | | | (LAB) | | | SERVICES, | | | | | | CORE | | + + + + + + | TOTAL CO2, | 23 | 21 - 32 mmol/L | [facility] | | | PLASMA | | | LABORATORY | | | (LAB) | | | SERVICES, | | | | | | CORE | | + + + + + + | CALCIUM, | 7.6 (L) | 8.6 - 10.2 | [facility] | | | PLASMA | | mg/dL | LABORATORY | | | (LAB) | | | SERVICES, | | | | | | CORE | | + + + + + + | CALCIUM(ALB | 8.7 | 8.6 - 10.2 | [facility] | | | CORRECTED) | | mg/dL | LABORATORY | | | | | | SERVICES, | | | | | | CORE | | + + + + + + | BILIRUBIN | 0.5 | 0.3 - 1.2 mg/dL | [facility] | | | TOTAL | | | LABORATORY | | | | | | SERVICES, | | | | | | CORE | | + + + + + + | TOTAL | 6.4 | 6.4 - 8.2 g/dL | [facility] | | | PROTEIN, | | | LABORATORY | | | PLASMA | | | SERVICES, | | | (LAB) | | | CORE | | + + + + + + | ALBUMIN, | 2.6 (L) | 3.5 - 4.7 g/dL | [facility] | | | PLASMA | | | LABORATORY | | | (LAB) | | | SERVICES, | | | | | | CORE | | + + + + + + | ALK PHOS | 59 | 53 - 141 U/L | [facility] | | | | | | LABORATORY | | | | | | SERVICES, | | | | | | CORE | | + + + + + + | AST(SGOT) | 40 | <=41 U/L | [facility] | | | | | | LABORATORY | | | | | | SERVICES, | | | | | | CORE | | + + + + + + | ALT (SGPT) | 22 | <=60 U/L | [facility] | | | | | | LABORATORY | | | | | | SERVICES, | | | | | | CORE | | + + + + + + | ANION GAP | 9 | 4 - 11 mmol/L | [facility] | | | | | | LABORATORY | | | | | | SERVICES, | | | | | | CORE | | + + + + + + | ANION | 12 (H) | 4 - 11 mmol/L | [facility] | | | GAP(ALB | | | LABORATORY | | | CORRECTED) | | | SERVICES, | | | | | | CORE | | + + + + + + | POTASSIUM | No Hemo | | [facility] | | | CMNT | | | LABORATORY | | | | | | SERVICES, | | | | | | CORE | | + + + + + + | BILI T CMNT | No Hemo | | [facility] | | | | | | LABORATORY | | | | | | SERVICES, | | | | | | CORE | | + + + + + + | AST CMNT | No Hemo | | [facility] | | | | | | LABORATORY | | | | | | SERVICES, | | | | | | CORE | | + + + + + + + + | Specimen | + + | Blood | + + + + + | Narrative | Performed At | + + + | Adult glucose reference range change effective 712-17. GFR is | [facility] | | estimated using the MDRD equation recommended by the National Kidney | LABORATORY | | Disease Education Program. Estimated GFR Interpretive Information: | SERVICES, CORE | | <60 mL/min/1.73 sq m Chronic Kidney | | | Disease <15 mL/min/1.73 sq m Kidney | | | Failure Estimated GFR greater that 60 mL/min/1.73 sq m is of limited | | | clinical value. The MDRD equation is not valid in the following | | | situations: - Patients under 18 years of age - Severe malnutrition | | | or obesity - Vegetarian diet - Rapidly changing kidney function | | + + + + + + + + | Performing | Address | City/State/Zipcode | Phone Number | | Organization | | | | + + + + + | [facility] | [address] | [place] [address] | | | SERVICES, CORE | [address] | | | + + + + + CAPILLARY BLOOD GLUCOSE (NO CHG), POC (02/11/2018 12:22 AM PDT) + +---------+ + + + | Component | Value | Ref Range | Performed | Pathologist | | | | | At | Signature | + +---------+ + + + | BLOOD | 147 (H) | 70 - 99 mg/dL | [facility] | | | GLUCOSE, | | | [facility] | | | POC | | | [facility] | | | | | | [facility] | | | | | | TESTS | | + +---------+ + + + + + | Specimen | + + | | + + + + + + + | Performing | Address | City/State/Zipcode | Phone Number | | Organization | | | | + + + + + | [facility] | [address] | [place], [place] | | | [facility] | [address] | [phone] | | | TESTS | | | | + + + + + documented in this encounter Visit Diagnoses + + | Diagnosis | + + | Encephalomyelitis, autoimmune - Primary Other causes of encephalitis and | | encephalomyelitis | + + | Pneumonia due to infectious organism, unspecified laterality, unspecified part of lung | + + | ARDS (adult respiratory distress syndrome) (HCC) Other pulmonary insufficiency, not | | elsewhere classified, following trauma and surgery | + + | Pneumonia due to human metapneumovirus (hMPV) | + + | Severe obesity (BMI >= 40) (HCC) Morbid obesity | + + | SVT (supraventricular tachycardia) ([facility]) Other specified cardiac dysrhythmias | + + | CKD (chronic kidney disease) Chronic kidney disease, unspecified | + + | HTN (hypertension) Unspecified essential hypertension | + + | Leukocytosis Leukocytosis, unspecified | + + | (HFpEF) heart failure with preserved ejection fraction (HCC) | + + | T2DM (type 2 diabetes mellitus) (HCC) Type II or unspecified type diabetes mellitus | | without mention of complication, not stated as uncontrolled | + + | Abnormal ventricular wall motion Nonspecific (abnormal) findings on radiological and | | other examination of other intrathoracic organs | + + | Moderate protein-calorie malnutrition (HCC) Malnutrition of moderate degree | + + documented in this encounter Administered Medications + +--------+ + +------+------+ | Medication Order | MAR | Action | Dose | Rate | Site | | | Action | Date | | | | + +--------+ + +------+------+ | acetaminophen (TYLENOL) oral | Given | 02/20/20 | 1,000 mg | | | | suspension 1,000 mg 1,000 mg, | | 18 4:01 | | | | | feeding tube, THREE TIMES DAILY | | PM PDT | | | | | NEEDED, Starting 02/11/18 at | | | | | | | 0013, Until Tu03/05/18 at 1658, | | | | | | | mild pain, fever | | | | | | + +--------+ + +------+------+ +-------+ + +---+---+ | Given | 02/20/20 | 1,000 mg | | | | | 18 2:18 | | | | | | AM PDT | | | | +-------+ + +---+---+ | Given | 02/18/20 | 1,000 mg | | | | | 18 6:43 | | | | | | PM PDT | | | | +-------+ + +---+---+ +---+---+ | | | +---+---+ + +-------+ +--------+---+---+ | acetaminophen (TYLENOL) tablet | Given | 03/10/20 | 650 mg | | | | 650 mg 650 mg, oral, EVERY 24 | | 18 3:00 | | | | | HOURS, 4 doses, First dose on Lisa | | PM PDT | | | | | 03/07/18 at 1500, Last dose on | | | | | | | 03/10/18 at 1500 | | | | | | + +-------+ +--------+---+---+ +-------+ +--------+---+---+ | Given | 03/09/20 | 650 mg | | | | | 18 3:14 | | | | | | PM PDT | | | | +-------+ +--------+---+---+ | Given | 03/08/20 | 650 mg | | | | | 18 3:31 | | | | | | PM PDT | | | | +-------+ +--------+---+---+ +---+---+ | | | +---+---+ + +-------+ +--------+---+---+ | albuterol 0.083% | Given | 02/15/20 | 2.5 mg | | | | (PROVENTIL,VENTOLIN) 2.5 mg /3 mL | | 18 10:25 | | | | | (0.083 %) nebulizer solution 1 | | PM PDT | | | | | dose, Starting Lisa 02/14/18 at | | | | | | | 2222, Until Lisa 02/14/18 at 2225 | | | | | | + +-------+ +--------+---+---+ +---+---+ | | | +---+---+ + +-------+ +--------+---+---+ | albuterol 0.083% | Given | 02/15/20 | 2.5 mg | | | | (PROVENTIL,VENTOLIN) 2.5 mg /3 mL | | 18 10:37 | | | | | (0.083 %) nebulizer solution 1 | | PM PDT | | | | | dose, Starting [facility] 02/14/18 at | | | | | | | 2236, Until [facility] 02/14/18 at 2237 | | | | | | + +-------+ +--------+---+---+ +---+---+ | | | +---+---+ + +-------+ +-------+---+---+ | aluminum-magnesium | Given | 03/11/20 | 30 mL | | | | hydroxide-simethicone (MAALOX; | | 18 12:55 | | | | | MYLANTA) 200-200-20 mg/5 mL | | AM PDT | | | | | suspension 30 mL 30 mL, oral, | | | | | | | ONCE, 1 dose, [place] 03/10/18 at 2315 | | | | | | + +-------+ +-------+---+---+ +---+---+ | | | +---+---+ + +-------+ +-------+---+---+ | aluminum-magnesium | Given | 03/12/20 | 30 mL | | | | hydroxide-simethicone (MAALOX; | | 18 1:03 | | | | | MYLANTA) 200-200-20 mg/5 mL | | AM PDT | | | | | suspension 30 mL 30 mL, oral, | | | | | | | ONCE, 1 dose, [facility] 03/12/18 at 0115 | | | | | | + +-------+ +-------+---+---+ +---+---+ | | | +---+---+ + +-------+ +-------+---+---+ | amLODIPine (NORVASC) tablet 10 | Given | 03/15/20 | 10 mg | | | | mg 10 mg, feeding tube, DAILY, | | 18 9:02 | | | | | First dose on [facility] 02/14/18 at 1800, | | AM PDT | | | | | Until Discontinued | | | | | | + +-------+ +-------+---+---+ +-------+ +-------+---+---+ | Given | 03/14/20 | 10 mg | | | | | 18 9:11 | | | | | | AM PDT | | | | +-------+ +-------+---+---+ | Given | 03/13/20 | 10 mg | | | | | 18 8:46 | | | | | | AM PDT | | | | +-------+ +-------+---+---+ +---+---+ | | | +---+---+ + +-------+ +--------+---+---+ | amoxicillin-clavulanate | Given | 02/26/20 | 875 mg | | | | (AUGMENTIN) 875-125 mg 875 mg | | 18 9:52 | | | | | 875 mg, oral, TWICE DAILY, First | | AM PDT | | | | | dose on 02/23/18 at 0800, | | | | | | | Until Discontinued | | | | | | + +-------+ +--------+---+---+ +-------+ +--------+---+---+ | Given | 02/25/20 | 875 mg | | | | | 18 8:35 | | | | | | PM PDT | | | | +-------+ +--------+---+---+ | Given | 02/25/20 | 875 mg | | | | | 18 9:41 | | | | | | AM PDT | | | | +-------+ +--------+---+---+ +---+---+ | | | +---+---+ + +-------+ +--------+---+---+ | amoxicillin-clavulanate | Given | 03/02/20 | 875 mg | | | | (AUGMENTIN) 875-125 mg 875 mg | | 18 9:05 | | | | | 875 mg, feeding tube, TWICE | | AM PDT | | | | | DAILY, 10 doses, First dose on | | | | | | | 02/25/18 at 2100, Last dose on | | | | | | | 03/02/18 at 0900 | | | | | | + +-------+ +--------+---+---+ +-------+ +--------+---+---+ | Given | 03/01/20 | 875 mg | | | | | 18 8:39 | | | | | | PM PDT | | | | +-------+ +--------+---+---+ | Given | 03/01/20 | 875 mg | | | | | 18 10:43 | | | | | | AM PDT | | | | +-------+ +--------+---+---+ +---+---+ | | | +---+---+ + +-------+ +-------+---+---+ | aspirin chewable tablet 81 mg | Given | 03/15/20 | 81 mg | | | | 81 mg, feeding tube, DAILY, First | | 18 9:01 | | | | | dose on 02/23/18 at 0800, | | AM PDT | | | | | Until Discontinued | | | | | | + +-------+ +-------+---+---+ +-------+ +-------+---+---+ | Given | 03/14/20 | 81 mg | | | | | 18 9:12 | | | | | | AM PDT | | | | +-------+ +-------+---+---+ | Given | 03/13/20 | 81 mg | | | | | 18 8:46 | | | | | | AM PDT | | | | +-------+ +-------+---+---+ +---+---+ | | | +---+---+ + +-------+ +-------+---+---+ | atorvastatin (LIPITOR) tablet | Given | 02/23/20 | 10 mg | | | | 10 mg 10 mg, feeding tube, | | 18 2:01 | | | | | DAILY, First dose on Sun02/11/18 | | PM PDT | | | | | at 0900, Until Discontinued | | | | | | + +-------+ +-------+---+---+ +-------+ +-------+---+---+ | Given | 02/21/20 | 10 mg | | | | | 18 9:04 | | | | | | AM PDT | | | | +-------+ +-------+---+---+ | Given | 02/20/20 | 10 mg | | | | | 18 8:48 | | | | | | AM PDT | | | | +-------+ +-------+---+---+ +---+---+ | | | +---+---+ + +-------+ +-------+---+---+ | atorvastatin (LIPITOR) tablet | Given | 03/15/20 | 80 mg | | | | 80 mg 80 mg, feeding tube, | | 18 9:02 | | | | | DAILY, First dose on 02/23/18 | | AM PDT | | | | | at 0900, Until Discontinued | | | | | | + +-------+ +-------+---+---+ +-------+ +-------+---+---+ | Given | 03/14/20 | 80 mg | | | | | 18 9:12 | | | | | | AM PDT | | | | +-------+ +-------+---+---+ | Given | 03/13/20 | 80 mg | | | | | 18 8:46 | | | | | | AM PDT | | | | +-------+ +-------+---+---+ +---+---+ | | | +---+---+ + +---------+ +--------+---+---+ | azithromycin (ZITHROMAX) IV 500 | New Bag | 02/12/20 | 500 mg | | | | mg 500 mg, intravenous, ONCE, 1 | | 18 2:01 | | | | | dose, 02/11/18 at 0100 | | AM PDT | | | | + +---------+ +--------+---+---+ +---+---+ | | | +---+---+ + +-------+ +--------+---+---+ | azithromycin (ZITHROMAX) tablet | Given | 02/14/20 | 500 mg | | | | 500 mg 500 mg, feeding tube, | | 18 1:44 | | | | | EVERY 24 HOURS, First dose on Sun | | AM PDT | | | | | 02/12/18 at 0200, Until | | | | | | | Discontinued | | | | | | + +-------+ +--------+---+---+ +-------+ +--------+---+---+ | Given | 02/13/20 | 500 mg | | | | | 18 1:57 | | | | | | AM PDT | | | | +-------+ +--------+---+---+ +---+---+ | | | +---+---+ + +-------+ +--------+---+---+ | budesonide (PULMICORT) 0.5 mg/2 | Given | 03/15/20 | 0.5 mg | | | | mL nebulizer suspension 0.5 mg | | 18 8:13 | | | | | 0.5 mg, inhalation, TWICE DAILY, | | AM PDT | | | | | First dose on Sun02/11/18 at 0900, | | | | | | | Until Discontinued | | | | | | + +-------+ +--------+---+---+ +-------+ +--------+---+---+ | Given | 03/14/20 | 0.5 mg | | | | | 18 8:18 | | | | | | PM PDT | | | | +-------+ +--------+---+---+ | Given | 03/14/20 | 0.5 mg | | | | | 18 9:02 | | | | | | AM PDT | | | | +-------+ +--------+---+---+ +---+---+ | | | +---+---+ + +-------+ +---------+---+---+ | carvedilol (COREG) tablet 12.5 | Given | 02/18/20 | 12.5 mg | | | | mg 12.5 mg, oral, TWICE DAILY | | 18 3:53 | | | | | WITH MEALS, First dose on Sat | | PM PDT | | | | | 02/16/18 at 1000, Until | | | | | | | Discontinued | | | | | | + +-------+ +---------+---+---+ +-------+ +---------+---+---+ | Given | 02/18/20 | 12.5 mg | | | | | 18 8:09 | | | | | | AM PDT | | | | +-------+ +---------+---+---+ | Given | 02/17/20 | 12.5 mg | | | | | 18 6:01 | | | | | | PM PDT | | | | +-------+ +---------+---+---+ +---+---+ | | | +---+---+ + +-------+ + +---+---+ | carvedilol (COREG) tablet 18.75 | Given | 02/18/20 | 18.75 mg | | | | mg 18.75 mg, oral, EVERY | | 18 9:03 | | | | | EVENING, First dose on 02/17/18 | | PM PDT | | | | | at 2100, Until Discontinued | | | | | | + +-------+ + +---+---+ +---+---+ | | | +---+---+ + +-------+ + +---+---+ | carvedilol (COREG) tablet 18.75 | Given | 02/25/20 | 18.75 mg | | | | mg 18.75 mg, feeding tube, | | 18 9:40 | | | | | TWICE DAILY, First dose on Mon | | AM PDT | | | | | 02/18/18 at 1015, Until | | | | | | | Discontinued | | | | | | + +-------+ + +---+---+ +-------+ + +---+---+ | Given | 02/24/20 | 18.75 mg | | | | | 18 8:51 | | | | | | PM PDT | | | | +-------+ + +---+---+ | Given | 02/24/20 | 18.75 mg | | | | | 18 8:38 | | | | | | AM PDT | | | | +-------+ + +---+---+ +---+---+ | | | +---+---+ + +-------+ +-------+---+---+ | carvedilol (COREG) tablet 25 mg | Given | 03/15/20 | 25 mg | | | | 25 mg, feeding tube, TWICE | | 18 9:02 | | | | | DAILY, First dose on 02/24/18 | | AM PDT | | | | | at 2100, Until Discontinued | | | | | | + +-------+ +-------+---+---+ +-------+ +-------+---+---+ | Given | 03/14/20 | 25 mg | | | | | 18 8:17 | | | | | | PM PDT | | | | +-------+ +-------+---+---+ | Given | 03/14/20 | 25 mg | | | | | 18 9:11 | | | | | | AM PDT | | | | +-------+ +-------+---+---+ +---+---+ | | | +---+---+ + +-------+ +-----+---+---+ | cefTRIAXone (ROCEPHIN) | Given | 02/15/20 | 2 g | | | | injection 2 g 2 g, intravenous, | | 18 2:21 | | | | | EVERY 24 HOURS, 2 doses, First | | PM PDT | | | | | dose on Sun02/13/18 at 1245, Last | | | | | | | dose on Sun02/14/18 at 1245 | | | | | | + +-------+ +-----+---+---+ +-------+ +-----+---+---+ | Given | 02/14/20 | 2 g | | | | | 18 1:20 | | | | | | PM PDT | | | | +-------+ +-----+---+---+ +---+---+ | | | +---+---+ + +-------+ +--------+---+---+ | cephALEXin (KEFLEX) suspension | Given | 02/24/20 | 250 mg | | | | 250 mg 250 mg, feeding tube, | | 18 6:19 | | | | | EVERY 6 HOURS, First dose on Sun | | AM PDT | | | | | 02/22/18 at 1015, Until | | | | | | | Discontinued | | | | | | + +-------+ +--------+---+---+ +-------+ +--------+---+---+ | Given | 02/24/20 | 250 mg | | | | | 18 2:04 | | | | | | AM PDT | | | | +-------+ +--------+---+---+ | Given | 02/23/20 | 250 mg | | | | | 18 8:33 | | | | | | PM PDT | | | | +-------+ +--------+---+---+ +---+---+ | | | +---+---+ + +-------+ +-------+---+---+ | chlorhexidine (PERIDEX) | Given | 02/19/20 | 15 mL | | | | mouthwash 15 mL 15 mL, oral, | | 18 3:59 | | | | | EVERY 6 HOURS, First dose on Mon | | PM PDT | | | | | 02/11/18 at 0400, Until | | | | | | | Discontinued | | | | | | + +-------+ +-------+---+---+ +-------+ +-------+---+---+ | Given | 02/19/20 | 15 mL | | | | | 18 10:20 | | | | | | AM PDT | | | | +-------+ +-------+---+---+ | Given | 02/19/20 | 15 mL | | | | | 18 3:57 | | | | | | AM PDT | | | | +-------+ +-------+---+---+ +---+---+ | | | +---+---+ + +-------+ +-------+---+---+ | chlorhexidine (PERIDEX) | Given | 02/21/20 | 15 mL | | | | mouthwash 15 mL 15 mL, oral, | | 18 4:00 | | | | | EVERY 6 HOURS, First dose on Mon | | PM PDT | | | | | 02/18/18 at 1700, Until | | | | | | | Discontinued | | | | | | + +-------+ +-------+---+---+ +-------+ +-------+---+---+ | Given | 02/21/20 | 15 mL | | | | | 18 9:03 | | | | | | AM PDT | | | | +-------+ +-------+---+---+ | Given | 02/20/20 | 15 mL | | | | | 18 9:15 | | | | | | PM PDT | | | | +-------+ +-------+---+---+ +---+---+ | | | +---+---+ + +-------+ +---------+---+---+ | cosyntropin (CORTROSYN) | Given | 03/04/20 | 0.25 mg | | | | injection 0.25 mg 0.25 mg, | | 18 10:01 | | | | | intravenous, ONCE, 1 dose, Mon | | AM PDT | | | | | 03/04/18 at 0845 | | | | | | + +-------+ +---------+---+---+ +---+---+ | | | +---+---+ + +---------+ +-------+-------+---+ | dextrose 5%-NaCl 0.45% IV | New Bag | 02/28/20 | 125 | 125 | | | infusion 125 mL/hr, intravenous, | | 18 7:44 | mL/hr | mL/hr | | | CONTINUOUS, Starting Sun02/27/18 | | AM PDT | | | | | at 0800, Until Sun02/27/18 at | | | | | | | 2159 | | | | | | + +---------+ +-------+-------+---+ + +---+ | | | + +---+ | dextrose 50 % in water IV 25 mL | | | 25 mL, intravenous, NEEDED, | | | Starting 03/08/18 at 1509, | | | Until 03/15/18 at 1626, CBG | | | less than 70 mg/dL if patient | | | unable to take PO, per Adult | | | Hypoglycemia Protocol | | + +---+ | | | + +---+ + +-------+ +-------+---+---+ | diphenhydrAMINE (BENADRYL) | Given | 03/10/20 | 25 mg | | | | capsule 25 mg 25 mg, oral, EVERY | | 18 3:00 | | | | | 24 HOURS, 4 doses, First dose on | | PM PDT | | | | | Lisa 03/07/18 at 1500, Last dose | | | | | | | on 03/10/18 at 1500 | | | | | | + +-------+ +-------+---+---+ +-------+ +-------+---+---+ | Given | 03/09/20 | 25 mg | | | | | 18 3:14 | | | | | | PM PDT | | | | +-------+ +-------+---+---+ | Given | 03/08/20 | 25 mg | | | | | 18 3:32 | | | | | | PM PDT | | | | +-------+ +-------+---+---+ +---+---+ | | | +---+---+ + +-------+ +-------+---+---+ | diphenhydrAMINE (BENADRYL) | Given | 03/06/20 | 25 mg | | | | injection 25 mg 25 mg, | | 18 4:16 | | | | | intravenous, ONCE, 1 dose, Wed | | PM PDT | | | | | 03/06/18 at 1500 | | | | | | + +-------+ +-------+---+---+ +---+---+ | | | +---+---+ + +-------+ +---+---+---+ | diphenhydrAMINE-zinc acetate | Given | 03/01/20 | | | | | (BENADRYL ITCH STOPPING) 2-0.1 % | | 18 11:40 | | | | | cream topical, FOUR TIMES DAILY | | PM PDT | | | | | NEEDED, Starting 02/23/18 | | | | | | | at 0925, Until 03/05/18 at | | | | | | | 1658, itching, rash | | | | | | + +-------+ +---+---+---+ +-------+ +---+---+---+ | Given | 02/26/20 | | | | | | 18 9:52 | | | | | | AM PDT | | | | +-------+ +---+---+---+ +---+---+ | | | +---+---+ + +-------+ +--------+---+---+ | docusate sodium liquid 100 mg | Given | 02/15/20 | 100 mg | | | | 100 mg, feeding tube, TWICE | | 18 8:59 | | | | | DAILY, First dose on 02/11/18 | | PM PDT | | | | | at 0030, Until Discontinued | | | | | | + +-------+ +--------+---+---+ +-------+ +--------+---+---+ | Given | 02/15/20 | 100 mg | | | | | 18 8:49 | | | | | | AM PDT | | | | +-------+ +--------+---+---+ | Given | 02/14/20 | 100 mg | | | | | 18 9:35 | | | | | | AM PDT | | | | +-------+ +--------+---+---+ +---+---+ | | | +---+---+ + +-------+ +-------+---+---------+ | enoxaparin (LOVENOX) injection | Given | 02/27/20 | 40 mg | | Abdomen | | 40 mg 40 mg, subcutaneous, EVERY | | 18 8:59 | | | | | 12 HOURS, First dose on Mon | | AM PDT | | | | | 02/11/18 at 1130, Until | | | | | | | Discontinued | | | | | | + +-------+ +-------+---+---------+ +-------+ +-------+---+---------+ | Given | 02/26/20 | 40 mg | | Abdomen | | | 18 10:15 | | | | | | PM PDT | | | | +-------+ +-------+---+---------+ | Given | 02/26/20 | 40 mg | | Abdomen | | | 18 9:52 | | | | | | AM PDT | | | | +-------+ +-------+---+---------+ +---+---+ | | | +---+---+ + +-------+ +-------+---+ + | enoxaparin (LOVENOX) injection | Given | 03/14/20 | 40 mg | | Left Arm | | 40 mg 40 mg, subcutaneous, EVERY | | 18 8:17 | | | | | EVENING, First dose on Sat | | PM PDT | | | | | 03/02/18 at 2100, Until | | | | | | | Discontinued | | | | | | + +-------+ +-------+---+ + +-------+ +-------+---+ + | Given | 03/13/20 | 40 mg | | Left Arm | | | 18 8:26 | | | | | | PM PDT | | | | +-------+ +-------+---+ + | Given | 03/12/20 | 40 mg | | Left Arm | | | 18 8:14 | | | | | | PM PDT | | | | +-------+ +-------+---+ + +---+---+ | | | +---+---+ + +-------+ +-------+---+---+ | famotidine (PEPCID) injection | Given | 02/12/20 | 20 mg | | | | 20 mg 20 mg, intravenous, TWICE | | 18 9:14 | | | | | DAILY, First dose on 02/11/18 | | AM PDT | | | | | at 0200, Until Discontinued | | | | | | + +-------+ +-------+---+---+ +-------+ +-------+---+---+ | Given | 02/12/20 | 20 mg | | | | | 18 2:01 | | | | | | AM PDT | | | | +-------+ +-------+---+---+ +---+---+ | | | +---+---+ + +-------+ +-------+---+---+ | famotidine (PEPCID) tablet 20 | Given | 02/19/20 | 20 mg | | | | mg 20 mg, feeding tube, TWICE | | 18 10:09 | | | | | DAILY, First dose on Sun02/11/18 | | AM PDT | | | | | at 2100, Until Discontinued | | | | | | + +-------+ +-------+---+---+ +-------+ +-------+---+---+ | Given | 02/18/20 | 20 mg | | | | | 18 9:03 | | | | | | PM PDT | | | | +-------+ +-------+---+---+ | Given | 02/18/20 | 20 mg | | | | | 18 9:00 | | | | | | AM PDT | | | | +-------+ +-------+---+---+ +---+---+ | | | +---+---+ + +-------+ +-------+---+---+ | famotidine (PEPCID) tablet 20 | Given | 02/21/20 | 20 mg | | | | mg 20 mg, feeding tube, TWICE | | 18 9:04 | | | | | DAILY, First dose on 02/18/18 | | AM PDT | | | | | at 2100, Until Discontinued | | | | | | + +-------+ +-------+---+---+ +-------+ +-------+---+---+ | Given | 02/20/20 | 20 mg | | | | | 18 9:15 | | | | | | PM PDT | | | | +-------+ +-------+---+---+ | Given | 02/20/20 | 20 mg | | | | | 18 8:48 | | | | | | AM PDT | | | | +-------+ +-------+---+---+ +---+---+ | | | +---+---+ + +-------+ + +---+---+ | fluticasone (FLONASE) 50 | Given | 03/05/20 | 2 sprays | | | | mcg/actuation nasal spray 2 spray | | 18 9:08 | | | | | 2 spray, both nostrils, TWICE | | AM PDT | | | | | DAILY, First dose on 02/23/18 | | | | | | | at 0800, Until Discontinued | | | | | | + +-------+ + +---+---+ +-------+ + +---+---+ | Given | 03/04/20 | 2 sprays | | | | | 18 8:54 | | | | | | AM PDT | | | | +-------+ + +---+---+ | Given | 03/03/20 | 2 sprays | | | | | 18 11:26 | | | | | | PM PDT | | | | +-------+ + +---+---+ +---+---+ | | | +---+---+ + +-------+ +-------+---+---+ | furosemide (LASIX) injection 40 | Given | 02/12/20 | 40 mg | | | | mg 40 mg, intravenous, ONCE, 1 | | 18 3:54 | | | | | dose, 02/11/18 at 0330 | | AM PDT | | | | + +-------+ +-------+---+---+ +---+---+ | | | +---+---+ + +-------+ +-------+---+---+ | furosemide (LASIX) injection 40 | Given | 02/12/20 | 40 mg | | | | mg 40 mg, intravenous, ONCE, 10:11 | | | | | dose, Ismael 02/11/18 at 1015 | | AM PDT | | | | + +-------+ +-------+---+---+ +---+---+ | | | +---+---+ + +-------+ +-------+---+---+ | furosemide (LASIX) injection 40 | Given | 02/13/20 | 40 mg | | | | mg 40 mg, intravenous, ONCE, 9:58 | | | | | dose, Alvaro 02/12/18 at 1000 | | AM PDT | | | | + +-------+ +-------+---+---+ +---+---+ | | | +---+---+ + +-------+ +-------+---+---+ | furosemide (LASIX) injection 40 | Given | 02/13/20 | 40 mg | | | | mg 40 mg, intravenous, ONCE, | | 18 9:56 | | | | | dose, Alvaro 02/12/18 at 2100 | | PM PDT | | | | + +-------+ +-------+---+---+ +---+---+ | | | +---+---+ + +-------+ +-------+---+---+ | furosemide (LASIX) injection 40 | Given | 02/18/20 | 40 mg | | | | mg 40 mg, intravenous, ONCE, | | 18 12:11 | | | | | dose, Marisol 02/17/18 at 1145 | | PM PDT | | | | + +-------+ +-------+---+---+ +---+---+ | | | +---+---+ + +-------+ +-------+---+---+ | furosemide (LASIX) injection 40 | Given | 02/19/20 | 40 mg | | | | mg 40 mg, intravenous, ONCE, | | 18 10:26 | | | | | dose, [facility] 02/18/18 at 1030 | | AM PDT | | | | + +-------+ +-------+---+---+ +---+---+ | | | +---+---+ + +-------+ +-------+---+---+ | furosemide (LASIX) injection 40 | Given | 02/21/20 | 40 mg | | | | mg 40 mg, intravenous, ONCE, 12:42 | | | | | dose, 02/20/18 at 0045 | | AM PDT | | | | + +-------+ +-------+---+---+ +---+---+ | | | +---+---+ + +-------+ +-------+---+---+ | furosemide (LASIX) injection 60 | Given | 02/14/20 | 60 mg | | | | mg 60 mg, intravenous, ONCE, 1:30 | | | | | dose, 02/13/18 at 1245 | | PM PDT | | | | + +-------+ +-------+---+---+ +---+---+ | | | +---+---+ + +-------+ +-------+---+---+ | furosemide (LASIX) injection 60 | Given | 02/15/20 | 60 mg | | | | mg 60 mg, intravenous, ONCE, 18 2:49 | | | | | dose, [facility] [facility]14/18 at 1445 | | PM PDT | | | | + +-------+ +-------+---+---+ +---+---+ | | | +---+---+ + +-------+ +-------+---+---+ | furosemide (LASIX) injection 60 | Given | 02/21/20 | 60 mg | | | | mg 60 mg, intravenous, ONCE, | | 18 11:31 | | | | | dose, [facility] 02/20/18 at 1100 | | AM PDT | | | | + +-------+ +-------+---+---+ +---+---+ | | | +---+---+ + +-------+ +--------+---+---+ | gabapentin (NEURONTIN) capsule | Given | 02/23/20 | 100 mg | | | | 100 mg 100 mg, oral, THREE TIMES | | 18 2:01 | | | | | DAILY, First dose on Lisa 02/21/18 | | PM PDT | | | | | at 1600, Until Discontinued | | | | | | + +-------+ +--------+---+---+ +---+---+ | | | +---+---+ + +-------+ +--------+---+---+ | gabapentin (NEURONTIN) liquid | Given | 02/21/20 | 300 mg | | | | 300 mg 300 mg, feeding tube, | | 18 9:33 | | | | | THREE TIMES DAILY, First dose on | | AM PDT | | | | | 02/11/18 at 1600, Until | | | | | | | Discontinued | | | | | | + +-------+ +--------+---+---+ +-------+ +--------+---+---+ | Given | 02/20/20 | 300 mg | | | | | 18 10:32 | | | | | | PM PDT | | | | +-------+ +--------+---+---+ | Given | 02/20/20 | 300 mg | | | | | 18 4:01 | | | | | | PM PDT | | | | +-------+ +--------+---+---+ +---+---+ | | | +---+---+ + +---------+ +-------+---+---+ | gadoterate meglumine (DOTAREM) | IV Push | 03/01/20 | 25 mL | | | | 0.5 mmol/mL injection 30 mL 30 | | 18 5:59 | | | | | mL, intravenous, ONCE, 1 dose, | | PM PDT | | | | | 03/01/18 at 1830 | | | | | | + +---------+ +-------+---+---+ + +---+ | | | + +---+ | glucagon (GLUCAGEN) injection 1 | | | mg 1 mg, intramuscular, | | | NEEDED, Starting Sun03/08/18 at | | | 1509, Until Sun03/15/18 at 1626, | | | CBG less than 70 mg/dL per Adult | | | Hypoglycemia Protocol | | + +---+ | | | + +---+ | glucose chewable tablet 16 g | | | 16 g, oral, NEEDED, Starting | | | Sun03/08/18 at 1509, Until Fri | | | 03/15/18 at 1626, CBG less than 70 | | | mg/dL per Adult Hypoglycemia | | | Protocol | | + +---+ | | | + +---+ + +-------+ + +---+---+ | guar gum (BENEFIBER) oral | Given | 02/26/20 | 1 packet | | | | powder 1 packet 1 packet, oral, | | 18 10:59 | | | | | DAILY, First dose on 02/23/18 | | AM PDT | | | | | at 1000, Until Discontinued | | | | | | + +-------+ + +---+---+ +-------+ + +---+---+ | Given | 02/25/20 | 1 packet | | | | | 18 9:39 | | | | | | AM PDT | | | | +-------+ + +---+---+ | Given | 02/24/20 | 1 packet | | | | | 18 10:19 | | | | | | AM PDT | | | | +-------+ + +---+---+ +---+---+ | | | +---+---+ + +-------+ + +---+---+ | guar gum (BENEFIBER) oral | Given | 03/13/20 | 1 packet | | | | powder 1 packet 1 packet, | | 18 8:46 | | | | | feeding tube, DAILY, First dose | | AM PDT | | | | | on Sun02/26/18 at 0900, Until | | | | | | | Discontinued | | | | | | + +-------+ + +---+---+ +-------+ + +---+---+ | Given | 03/12/20 | 1 packet | | | | | 18 2:06 | | | | | | PM PDT | | | | +-------+ + +---+---+ | Given | 03/11/20 | 1 packet | | | | | 18 8:13 | | | | | | AM PDT | | | | +-------+ + +---+---+ +---+---+ | | | +---+---+ + +-------+ +-------+---+---+ | hydrALAZINE (APRESOLINE) | Given | 02/15/20 | 10 mg | | | | injection 10 mg 10 mg, | | 18 10:52 | | | | | intravenous, ONCE, 1 dose, Lisa | | AM PDT | | | | | 02/14/18 at 1130 | | | | | | + +-------+ +-------+---+---+ +---+---+ | | | +---+---+ + +-------+ +-------+---+---+ | hydrALAZINE (APRESOLINE) | Given | 02/18/20 | 10 mg | | | | injection 10 mg 10 mg, | | 18 8:10 | | | | | intravenous, EVERY 4 HOURS | | AM PDT | | | | | NEEDED, Starting Lisa 02/14/18 at | | | | | | | 1109, Until Lisa 02/21/18 at 1715, | | | | | | | hypertension, first line | | | | | | + +-------+ +-------+---+---+ +-------+ +-------+---+---+ | Given | 02/15/20 | 10 mg | | | | | 18 10:09 | | | | | | PM PDT | | | | +-------+ +-------+---+---+ + +---+ | | | + +---+ | hydrALAZINE (APRESOLINE) | | | injection 1 dose, Starting Lisa | | | 02/14/18 at 1049, Until Lisa 02/14/18 | | | at 1052 | | + +---+ | | | + +---+ + + + +-------+-------+---+ | HYDROmorphone (DILAUDID) 100 mg | Rate/Dos | 02/14/20 | 0.2 | 0.2 | | | in dextrose 5 % 100 mL (1 mg/mL) | e Change | 18 8:00 | mg/hr | mL/hr | | | IV infusion 0.2-4 mg/hr (0.2-4 | | PM PDT | | | | | mL/hr), intravenous, CONTINUOUS, | | | | | | | Starting [facility] 02/11/18 at 2345, | | | | | | | Until [facility] 02/14/18 at 0143 | | | | | | + + + +-------+-------+---+ + + +-------+-------+---+ | Rate/Dose Change | 02/14/20 | 0.4 | 0.4 | | | | 18 7:45 | mg/hr | mL/hr | | | | PM PDT | | | | + + +-------+-------+---+ | Rate/Dose Change | 02/14/20 | 0.6 | 0.6 | | | | 18 5:41 | mg/hr | mL/hr | | | | PM PDT | | | | + + +-------+-------+---+ +---+---+ | | | +---+---+ + +-------+ +------+---+---+ | HYDROmorphone (DILAUDID) | Given | 02/12/20 | 1 mg | | | | injection 0.5-1.5 mg 0.5-1.5 mg, | | 18 9:53 | | | | | intravenous, EVERY 2 HOURS | | PM PDT | | | | | NEEDED, Starting 02/11/18 at | | | | | | | 0203, Until 02/11/18 at 2305, | | | | | | | severe pain | | | | | | + +-------+ +------+---+---+ +---+---+ | | | +---+---+ + +-------+ +--------+---+---+ | HYDROmorphone (DILAUDID) | Given | 02/17/20 | 0.5 mg | | | | injection 0.5-1.5 mg 0.5-1.5 mg, | | 18 12:24 | | | | | intravenous, EVERY 2 HOURS | | AM PDT | | | | | NEEDED, Starting Lisa 02/14/18 at | | | | | | | 2253, Until 02/17/18 at 2051, | | | | | | | severe pain | | | | | | + +-------+ +--------+---+---+ +-------+ +--------+---+---+ | Given | 02/15/20 | 1.5 mg | | | | | 18 11:09 | | | | | | PM PDT | | | | +-------+ +--------+---+---+ +---+---+ | | | +---+---+ + + + +------+---+---+ | HYDROmorphone bolus from | Bolus | 02/14/20 | 1 mg | | | | continuous infusion 0.5-1.5 mg | from | 18 9:37 | | | | | intravenous, EVERY 1 HOUR | Same Bag | AM PDT | | | | | NEEDED, Starting 02/11/18 at | | | | | | | 2305, Until Lisa 02/14/18 at 0143, | | | | | | | CPOT not at goal | | | | | | + + + +------+---+---+ + + +--------+---+---+ | Bolus from Same Bag | 02/14/20 | 1 mg | | | | | 18 7:57 | | | | | | AM PDT | | | | + + +--------+---+---+ | Bolus from Same Bag | 02/14/20 | 0.5 mg | | | | | 18 7:55 | | | | | | AM PDT | | | | + + +--------+---+---+ +---+---+ | | | +---+---+ + + + +------+-------+---+ | immune globulin (GAMMAGARD) 5% | Rate/Dos | 03/10/20 | 35 g | 400 | | | IV 35 g, intravenous, EVERY 24 | e Change | 18 6:00 | | mL/hr | | | HOURS, 5 doses, First dose on Sun | | PM PDT | | | | | 03/06/18 at 1600, Last dose on | | | | | | | 03/10/18 at 1600 | | | | | | + + + +------+-------+---+ + + +------+-------+---+ | Rate/Dose Change | 03/10/20 | 35 g | 200 | | | | 18 5:30 | | mL/hr | | | | PM PDT | | | | + + +------+-------+---+ | Rate/Dose Change | 03/10/20 | 35 g | 100 | | | | 18 5:00 | | mL/hr | | | | PM PDT | | | | + + +------+-------+---+ + +---+ | | | + +---+ | influenza vaccine (FLUZONE) | | | (PF) IM injection (age 3 years or | | | greater) 0.5 mL 0.5 mL, | | | intramuscular, DAY OF DISCHARGE, | | | 1 dose, Starting Sun02/19/18 at | | | 1010, Until Sun03/15/18 at 1626, | | | flu vaccination per delegation | | | protocol | | + +---+ | | | + +---+ + +-------+ + +---+---------+ | insulin glargine (LANTUS) | Given | 03/15/20 | 20 Units | | Abdomen | | injection 20 Units 20 Units, | | 18 9:03 | | | | | subcutaneous, EVERY MORNING, | | AM PDT | | | | | First dose on [facility] 03/14/18 at 0815, | | | | | | | Until Discontinued | | | | | | + +-------+ + +---+---------+ +-------+ + +---+ + | Given | 03/14/20 | 20 Units | | Left Arm | | | 18 9:11 | | | | | | AM PDT | | | | +-------+ + +---+ + +---+---+ | | | +---+---+ + +-------+ + +---+---------+ | insulin lispro (HUMALOG) | Given | 03/15/20 | 10 Units | | Abdomen | | injection 10 Units 10 Units, | | 18 9:03 | | | | | subcutaneous, THREE TIMES DAILY | | AM PDT | | | | | WITH MEALS, First dose on Lisa | | | | | | | 03/14/18 at 1200, Until | | | | | | | Discontinued | | | | | | + +-------+ + +---+---------+ +-------+ + +---+ + | Given | 03/14/20 | 10 Units | | Left Arm | | | 18 6:27 | | | | | | PM PDT | | | | +-------+ + +---+ + | Given | 03/14/20 | 10 Units | | Left Arm | | | 18 12:52 | | | | | | PM PDT | | | | +-------+ + +---+ + +---+---+ | | | +---+---+ + +-------+ +---------+---+--------+ | insulin lispro (HUMALOG) | Given | 02/12/20 | 6 Units | | Right | | injection subcutaneous, FOUR | | 18 1:41 | | | Leg | | TIMES DAILY, First dose on Mon | | PM PDT | | | | | 02/11/18 at 0800, Until | | | | | | | Discontinued | | | | | | + +-------+ +---------+---+--------+ +---+---+ | | | +---+---+ + +-------+ + +---+--------+ | insulin lispro (HUMALOG) | Given | 02/16/20 | 12 Units | | Right | | injection subcutaneous, FOUR | | 18 5:59 | | | Arm | | TIMES DAILY, First dose on Sun | | PM PDT | | | | | 02/15/18 at 0900, Until | | | | | | | Discontinued | | | | | | + +-------+ + +---+--------+ +-------+ +---------+---+ + | Given | 02/16/20 | 6 Units | | Left Arm | | | 18 1:00 | | | | | | PM PDT | | | | +-------+ +---------+---+ + | Given | 02/16/20 | 4 Units | | Right | | | 18 11:12 | | | Arm | | | AM PDT | | | | +-------+ +---------+---+ + +---+---+ | | | +---+---+ + +-------+ + +---+ + | insulin lispro (HUMALOG) | Given | 03/05/20 | 16 Units | | Left Arm | | injection subcutaneous, FOUR | | 18 12:50 | | | | | TIMES DAILY, First dose on Sun | | PM PDT | | | | | 02/22/18 at 1700, Until | | | | | | | Discontinued | | | | | | + +-------+ + +---+ + +-------+ + +---+---------+ | Given | 03/05/20 | 10 Units | | Right | | | 18 6:23 | | | Arm | | | AM PDT | | | | +-------+ + +---+---------+ | Given | 03/05/20 | 12 Units | | Abdomen | | | 18 12:41 | | | | | | AM PDT | | | | +-------+ + +---+---------+ +---+---+ | | | +---+---+ + +-------+ +---------+---+---------+ | insulin lispro (HUMALOG) | Given | 03/15/20 | 2 Units | | Abdomen | | injection subcutaneous, FOUR | | 18 9:03 | | | | | TIMES DAILY, First dose on Sun | | AM PDT | | | | | 03/08/18 at 1715, Until | | | | | | | Discontinued | | | | | | + +-------+ +---------+---+---------+ +-------+ +---------+---+ + | Given | 03/14/20 | 2 Units | | Left Arm | | | 18 12:52 | | | | | | PM PDT | | | | +-------+ +---------+---+ + | Given | 03/14/20 | 4 Units | | Left Arm | | | 18 9:11 | | | | | | AM PDT | | | | +-------+ +---------+---+ + +---+---+ | | | +---+---+ + +-------+ + +---+ + | insulin NPH (HUMULIN N) | Given | 02/25/20 | 11 Units | | Left Arm | | injection 11 Units 11 Units, | | 18 6:12 | | | | | subcutaneous, EVERY 8 HOURS, | | AM PDT | | | | | First dose on 02/23/18 at | | | | | | | 1400, Until Discontinued | | | | | | + +-------+ + +---+ + +-------+ + +---+ + | Given | 02/24/20 | 11 Units | | Left Arm | | | 18 9:27 | | | | | | PM PDT | | | | +-------+ + +---+ + | Given | 02/24/20 | 11 Units | | Abdomen | | | 18 1:27 | | | | | | PM PDT | | | | +-------+ + +---+ + +---+---+ | | | +---+---+ + +-------+ + +---+--------+ | insulin NPH (HUMULIN N) | Given | 03/03/20 | 12 Units | | Right | | injection 12 Units 12 Units, | | 18 6:51 | | | Arm | | subcutaneous, EVERY 8 HOURS, | | AM PDT | | | | | First dose on Sun02/27/18 at | | | | | | | 2200, Until Discontinued | | | | | | + +-------+ + +---+--------+ +-------+ + +---+--------+ | Given | 03/02/20 | 12 Units | | Right | | | 18 11:37 | | | Arm | | | PM PDT | | | | +-------+ + +---+--------+ | Given | 03/02/20 | 12 Units | | Right | | | 18 2:52 | | | Arm | | | PM PDT | | | | +-------+ + +---+--------+ +---+---+ | | | +---+---+ + +-------+ + +---+ + | insulin NPH (HUMULIN N) | Given | 02/26/20 | 14 Units | | Left Arm | | injection 14 Units 14 Units, | | 18 6:25 | | | | | subcutaneous, EVERY 8 HOURS, | | AM PDT | | | | | First dose on 02/24/18 at | | | | | | | 1400, Until Discontinued | | | | | | + +-------+ + +---+ + +-------+ + +---+---------+ | Given | 02/25/20 | 14 Units | | Right | | | 18 11:16 | | | Arm | | | PM PDT | | | | +-------+ + +---+---------+ | Given | 02/25/20 | 14 Units | | Abdomen | | | 18 2:42 | | | | | | PM PDT | | | | +-------+ + +---+---------+ +---+---+ | | | +---+---+ + +-------+ + +---+ + | insulin NPH (HUMULIN N) | Given | 03/04/20 | 15 Units | | Left Arm | | injection 15 Units 15 Units, | | 18 12:01 | | | | | subcutaneous, EVERY 8 HOURS, | | AM PDT | | | | | First dose on 03/03/18 at | | | | | | | 1400, Until Discontinued | | | | | | + +-------+ + +---+ + +-------+ + +---+ + | Given | 03/03/20 | 15 Units | | Left Leg | | | 18 1:58 | | | | | | PM PDT | | | | +-------+ + +---+ + +---+---+ | | | +---+---+ + +-------+ + +---+--------+ | insulin NPH (HUMULIN N) | Given | 02/27/20 | 16 Units | | Right | | injection 16 Units 16 Units, | | 18 12:59 | | | Arm | | subcutaneous, EVERY 8 HOURS, | | AM PDT | | | | | First dose on 02/25/18 at | | | | | | | 1400, Until Discontinued | | | | | | + +-------+ + +---+--------+ +-------+ + +---+--------+ | Given | 02/26/20 | 16 Units | | Right | | | 18 2:18 | | | Arm | | | PM PDT | | | | +-------+ + +---+--------+ +---+---+ | | | +---+---+ + +-------+ + +---+---------+ | insulin NPH (HUMULIN N) | Given | 03/05/20 | 18 Units | | Abdomen | | injection 18 Units 18 Units, | | 18 12:41 | | | | | subcutaneous, EVERY 8 HOURS, | | AM PDT | | | | | First dose on Sun03/04/18 at | | | | | | | 0800, Until Discontinued | | | | | | + +-------+ + +---+---------+ +-------+ + +---+ + | Given | 03/04/20 | 18 Units | | Left Arm | | | 18 5:15 | | | | | | PM PDT | | | | +-------+ + +---+ + | Given | 03/04/20 | 18 Units | | Left Arm | | | 18 8:49 | | | | | | AM PDT | | | | +-------+ + +---+ + +---+---+ | | | +---+---+ + +-------+ + +---+---------+ | insulin NPH (HUMULIN N) | Given | 02/28/20 | 19 Units | | Abdomen | | injection 19 Units 19 Units, | | 18 6:33 | | | | | subcutaneous, EVERY 8 HOURS, | | AM PDT | | | | | First dose on Sun02/26/18 at | | | | | | | 1400, Until Discontinued | | | | | | + +-------+ + +---+---------+ +-------+ + +---+---------+ | Given | 02/27/20 | 19 Units | | Abdomen | | | 18 10:42 | | | | | | PM PDT | | | | +-------+ + +---+---------+ | Given | 02/27/20 | 19 Units | | Abdomen | | | 18 12:45 | | | | | | PM PDT | | | | +-------+ + +---+---------+ +---+---+ | | | +---+---+ + +-------+ + +---+---------+ | insulin NPH (HUMULIN N) | Given | 02/28/20 | 19 Units | | Abdomen | | injection 19 Units 19 Units, | | 18 3:28 | | | | | subcutaneous, EVERY 8 HOURS, | | PM PDT | | | | | First dose on Sun02/27/18 at | | | | | | | 1445, Until Discontinued | | | | | | + +-------+ + +---+---------+ +---+---+ | | | +---+---+ + +-------+ + +---+--------+ | insulin NPH (HUMULIN N) | Given | 03/08/20 | 20 Units | | Right | | injection 20 Units 20 Units, | | 18 9:58 | | | Arm | | subcutaneous, THREE TIMES DAILY, | | PM PDT | | | | | First dose on Sun03/08/18 at | | | | | | | 1715, Until Discontinued | | | | | | + +-------+ + +---+--------+ +-------+ + +---+---------+ | Given | 03/08/20 | 20 Units | | Abdomen | | | 18 5:29 | | | | | | PM PDT | | | | +-------+ + +---+---------+ +---+---+ | | | +---+---+ + +-------+ + +---+ + | insulin NPH (HUMULIN N) | Given | 03/14/20 | 22 Units | | Left Arm | | injection 22 Units 22 Units, | | 18 12:01 | | | | | subcutaneous, THREE TIMES DAILY, | | AM PDT | | | | | First dose on Sun03/13/18 at 1600, | | | | | | | Until Discontinued | | | | | | + +-------+ + +---+ + +-------+ + +---+ + | Given | 03/13/20 | 22 Units | | Left Arm | | | 18 6:05 | | | | | | PM PDT | | | | +-------+ + +---+ + +---+---+ | | | +---+---+ + +-------+ + +---+---------+ | insulin NPH (HUMULIN N) | Given | 03/10/20 | 23 Units | | Abdomen | | injection 23 Units 23 Units, | | 18 8:46 | | | | | subcutaneous, THREE TIMES DAILY, | | AM PDT | | | | | First dose on 03/09/18 at | | | | | | | 0900, Until Discontinued | | | | | | + +-------+ + +---+---------+ +-------+ + +---+---------+ | Given | 03/09/20 | 23 Units | | Abdomen | | | 18 10:18 | | | | | | PM PDT | | | | +-------+ + +---+---------+ | Given | 03/09/20 | 23 Units | | Abdomen | | | 18 5:11 | | | | | | PM PDT | | | | +-------+ + +---+---------+ +---+---+ | | | +---+---+ + +-------+ + +---+ + | insulin NPH (HUMULIN N) | Given | 03/05/20 | 26 Units | | Left Arm | | injection 26 Units 26 Units, | | 18 9:49 | | | | | subcutaneous, EVERY 8 HOURS, | | AM PDT | | | | | First dose on Sun03/05/18 at | | | | | | | 0915, Until Discontinued | | | | | | + +-------+ + +---+ + +---+---+ | | | +---+---+ + +-------+ + +---+ + | insulin NPH (HUMULIN N) | Given | 03/11/20 | 27 Units | | Left Arm | | injection 27 Units 27 Units, | | 18 8:51 | | | | | subcutaneous, THREE TIMES DAILY, | | AM PDT | | | | | First dose on Sun03/10/18 at | | | | | | | 1600, Until Discontinued | | | | | | + +-------+ + +---+ + +-------+ + +---+---------+ | Given | 03/10/20 | 27 Units | | Right | | | 18 9:20 | | | Arm | | | PM PDT | | | | +-------+ + +---+---------+ | Given | 03/10/20 | 27 Units | | Abdomen | | | 18 6:16 | | | | | | PM PDT | | | | +-------+ + +---+---------+ +---+---+ | | | +---+---+ + +-------+ + +---+---------+ | insulin NPH (HUMULIN N) | Given | 03/13/20 | 30 Units | | Abdomen | | injection 30 Units 30 Units, | | 18 8:46 | | | | | subcutaneous, THREE TIMES DAILY, | | AM PDT | | | | | First dose on 03/11/18 at | | | | | | | 1600, Until Discontinued | | | | | | + +-------+ + +---+---------+ +-------+ + +---+ + | Given | 03/12/20 | 30 Units | | Left Arm | | | 18 10:21 | | | | | | PM PDT | | | | +-------+ + +---+ + | Given | 03/12/20 | 30 Units | | Left Arm | | | 18 4:55 | | | | | | PM PDT | | | | +-------+ + +---+ + +---+---+ | | | +---+---+ + +-------+ + +---+ + | insulin NPH (HUMULIN N) | Given | 02/16/20 | 33 Units | | Left Arm | | injection 33 Units 33 Units, | | 18 1:00 | | | | | subcutaneous, EVERY 8 HOURS, | | PM PDT | | | | | First dose on Sun02/15/18 at 0600, | | | | | | | Until Discontinued | | | | | | + +-------+ + +---+ + +-------+ + +---+---------+ | Given | 02/16/20 | 33 Units | | Abdomen | | | 18 5:24 | | | | | | AM PDT | | | | +-------+ + +---+---------+ +---+---+ | | | +---+---+ + +-------+ + +---+--------+ | insulin NPH (HUMULIN N) | Given | 02/16/20 | 35 Units | | Right | | injection 35 Units 35 Units, | | 18 5:14 | | | Arm | | subcutaneous, EVERY 8 HOURS, | | PM PDT | | | | | First dose on Sun02/15/18 at 1530, | | | | | | | Until Discontinued | | | | | | + +-------+ + +---+--------+ +---+---+ | | | +---+---+ + +-------+ +---------+---+ + | insulin NPH (HUMULIN N) | Given | 02/24/20 | 7 Units | | Left Arm | | injection 7 Units 7 Units, | | 18 6:19 | | | | | subcutaneous, EVERY 8 HOURS, | | AM PDT | | | | | First dose on Sun02/22/18 at | | | | | | | 1400, Until Discontinued | | | | | | + +-------+ +---------+---+ + +-------+ +---------+---+ + | Given | 02/23/20 | 7 Units | | Left Arm | | | 18 10:11 | | | | | | PM PDT | | | | +-------+ +---------+---+ + | Given | 02/23/20 | 7 Units | | Abdomen | | | 18 2:01 | | | | | | PM PDT | | | | +-------+ +---------+---+ + +---+---+ | | | +---+---+ + + + +---------+---+---+ | insulin regular bolus from | Bolus | 02/12/20 | 8 Units | | | | continuous infusion 1-50 Units | from | 18 8:47 | | | | | 1-50 Units, intravenous, BOLUS | Same Bag | PM PDT | | | | | PRN, Starting Sun02/11/18 at 1853, | | | | | | | Until Sun02/15/18 at 1310, Per | | | | | | | [facility] Infusion Protocol | | | | | | + + + +---------+---+---+ +---+---+ | | | +---+---+ + + + + +---+---+ | insulin regular bolus from | Bolus | 03/06/20 | 33 Units | | | | continuous infusion 1-50 Units | from | 18 2:25 | | | | | 1-50 Units, intravenous, BOLUS | Same Bag | PM PDT | | | | | PRN, Starting 03/05/18 at | | | | | | | 1707, Until 03/09/18 at 0720, | | | | | | | Per [facility] Infusion Protocol | | | | | | + + + + +---+---+ + + + +---+---+ | Bolus from Same Bag | 03/06/20 | 46 Units | | | | | 18 1:36 | | | | | | PM PDT | | | | + + + +---+---+ | Bolus from Same Bag | 03/06/20 | 25 Units | | | | | 18 2:19 | | | | | | AM PDT | | | | + + + +---+---+ +---+---+ | | | +---+---+ + +---------+ + + +---+ | insulin regular in NaCl 0.9% IV | New Bag | 02/16/20 | 13 | 13 mL/hr | | | infusion (1 unit/mL) 0.1-50 | | 18 5:52 | Units/hr | | | | Units/hr (0.1-50 mL/hr), | | AM PDT | | | | | intravenous, CONTINUOUS, Starting | | | | | | | 02/11/18 at 1930, Until Fri | | | | | | | 02/15/18 at 1310 | | | | | | + +---------+ + + +---+ + + + +-------+---+ | Rate/Dose Change | 02/16/20 | 11.5 | 11.5 | | | | 18 4:42 | Units/hr | mL/hr | | | | AM PDT | | | | + + + +-------+---+ | Rate/Dose Change | 02/16/20 | 9.5 | 9.5 | | | | 18 3:37 | Units/hr | mL/hr | | | | AM PDT | | | | + + + +-------+---+ +---+---+ | | | +---+---+ + + + + +-------+---+ | insulin regular in NaCl 0.9% IV | Rate/Dos | 02/23/20 | 1.8 | 1.8 | | | infusion (1 unit/mL) 0.1-50 | e Change | 18 2:54 | Units/hr | mL/hr | | | Units/hr (0.1-50 mL/hr), | | PM PDT | | | | | intravenous, CONTINUOUS, Starting | | | | | | | 02/15/18 at 1830, Until Fri | | | | | | | 02/22/18 at 1639 | | | | | | + + + + +-------+---+ + + + +-------+---+ | Rate/Dose Verify | 02/23/20 | 2.8 | 2.8 | | | | 18 1:42 | Units/hr | mL/hr | | | | PM PDT | | | | + + + +-------+---+ | Rate/Dose Change | 02/23/20 | 2.8 | 2.8 | | | | 18 12:30 | Units/hr | mL/hr | | | | PM PDT | | | | + + + +-------+---+ +---+---+ | | | +---+---+ + + + + +-------+---+ | insulin regular in NaCl 0.9% IV | Rate/Dos | 03/08/20 | 2.6 | 2.6 | | | infusion (1 unit/mL) 0.1-50 | e Change | 18 5:44 | Units/hr | mL/hr | | | Units/hr (0.1-50 mL/hr), | | PM PDT | | | | | intravenous, CONTINUOUS, Starting | | | | | | | 03/05/18 at 1745, Until Sat | | | | | | | 03/09/18 at 0720 | | | | | | + + + + +-------+---+ + + + +-------+---+ | Rate/Dose Change | 03/08/20 | 1.8 | 1.8 | | | | 18 4:40 | Units/hr | mL/hr | | | | PM PDT | | | | + + + +-------+---+ | Rate/Dose Change | 03/08/20 | 4.4 | 4.4 | | | | 18 3:02 | Units/hr | mL/hr | | | | PM PDT | | | | + + + +-------+---+ +---+---+ | | | +---+---+ + +---------+ +--------+---+---+ | iohexol (OMNIPAQUE) 350 mg | IV Push | 03/04/20 | 125 mL | | | | iodine/mL injection 125 mL 125 | | 18 8:24 | | | | | mL, intravenous, PROCEDURE ONCE, | | PM PDT | | | | | 1 dose, Sun03/04/18 at 2030 | | | | | | + +---------+ +--------+---+---+ +---+---+ | | | +---+---+ + +-------+ +------+---+---+ | ipratropium-albuterol (NELLYO-ZAHIRA) | Given | 02/19/20 | 3 mL | | | | nebulizer solution 3 mL 3 mL, | | 18 8:30 | | | | | inhalation, EVERY 4 HOURS, First | | PM PDT | | | | | dose on Sun02/11/18 at 0200, Until | | | | | | | Discontinued | | | | | | + +-------+ +------+---+---+ +-------+ +------+---+---+ | Given | 02/19/20 | 3 mL | | | | | 18 4:40 | | | | | | PM PDT | | | | +-------+ +------+---+---+ | Given | 02/19/20 | 3 mL | | | | | 18 1:00 | | | | | | PM PDT | | | | +-------+ +------+---+---+ +---+---+ | | | +---+---+ + +-------+ +------+---+---+ | ipratropium-albuterol (DUO-NEB) | Given | 02/21/20 | 3 mL | | | | nebulizer solution 3 mL 3 mL, | | 18 8:15 | | | | | inhalation, EVERY 6 HOURS, First | | AM PDT | | | | | dose on Sun02/19/18 at 0400, | | | | | | | Until Discontinued | | | | | | + +-------+ +------+---+---+ +-------+ +------+---+---+ | Given | 02/21/20 | 3 mL | | | | | 18 3:41 | | | | | | AM PDT | | | | +-------+ +------+---+---+ | Given | 02/20/20 | 3 mL | | | | | 18 7:58 | | | | | | PM PDT | | | | +-------+ +------+---+---+ +---+---+ | | | +---+---+ + +-------+ +------+---+---+ | ipratropium-albuterol (DUO-NEB) | Given | 03/01/20 | 3 mL | | | | nebulizer solution 3 mL 3 mL, | | 18 8:12 | | | | | inhalation, EVERY 6 HOURS | | AM PDT | | | | | NEEDED, Starting Lisa 02/21/18 at | | | | | | | 1719, Until 03/15/18 at 1626, | | | | | | | dyspnea/SOB | | | | | | + +-------+ +------+---+---+ +---+---+ | | | +---+---+ + +-------+ +-------+---+---+ | labetalol (TRANDATE) IV | Given | 02/15/20 | 10 mg | | | | injection 10 mg 10 mg, | | 18 6:27 | | | | | intravenous, ONCE, 1 dose, Lisa | | AM PDT | | | | | 02/14/18 at 0615 | | | | | | + +-------+ +-------+---+---+ +---+---+ | | | +---+---+ + +---------+ + +---+---+ | lactated Ringers IV 1,000 mL, | New Bag | 02/17/20 | 1,000 mL | | | | intravenous, ONCE, 1 dose, Sat | | 18 2:30 | | | | | 02/16/18 at 0300 | | AM PDT | | | | + +---------+ + +---+---+ +---+---+ | | | +---+---+ + +---------+ +-------+-------+---+ | lactated Ringers IV 125 mL/hr, | New Bag | 02/25/20 | 125 | 125 | | | intravenous, CONTINUOUS, | | 18 8:05 | mL/hr | mL/hr | | | Starting 02/23/18 at 0830, | | PM PDT | | | | | Until 02/24/18 at 2140 | | | | | | + +---------+ +-------+-------+---+ + + +-------+-------+---+ | Rate/Dose Verify | 02/25/20 | 125 | 125 | | | | 18 7:36 | mL/hr | mL/hr | | | | AM PDT | | | | + + +-------+-------+---+ | New Bag | 02/25/20 | 125 | 125 | | | | 18 2:08 | mL/hr | mL/hr | | | | AM PDT | | | | + + +-------+-------+---+ +---+---+ | | | +---+---+ + +-------+ +-------+---+---+ | lidocaine viscous (XYLOCAINE | Given | 03/11/20 | 30 mL | | | | VISCOUS) 2 % mucosal solution 30 | | 18 12:54 | | | | | mL 30 mL, oral, ONCE, 1 dose, | | AM PDT | | | | | 03/10/18 at 2315 | | | | | | + +-------+ +-------+---+---+ +---+---+ | | | +---+---+ + +-------+ +-------+---+---+ | lidocaine viscous (XYLOCAINE | Given | 03/12/20 | 30 mL | | | | VISCOUS) 2 % mucosal solution 30 | | 18 1:03 | | | | | mL 30 mL, oral, ONCE, 1 dose, | | AM PDT | | | | | 03/12/18 at 0115 | | | | | | + +-------+ +-------+---+---+ +---+---+ | | | +---+---+ + +-------+ +-------+---+---+ | lisinopril (PRINIVIL) tablet 10 | Given | 03/14/20 | 10 mg | | | | mg 10 mg, oral, DAILY, First | | 18 9:11 | | | | | dose on 03/03/18 at 1400, | | AM PDT | | | | | Until Discontinued | | | | | | + +-------+ +-------+---+---+ +-------+ +-------+---+---+ | Given | 03/13/20 | 10 mg | | | | | 18 12:47 | | | | | | PM PDT | | | | +-------+ +-------+---+---+ | Given | 03/12/20 | 10 mg | | | | | 18 8:47 | | | | | | AM PDT | | | | +-------+ +-------+---+---+ +---+---+ | | | +---+---+ + +-------+ +-------+---+---+ | lisinopril (PRINIVIL) tablet 20 | Given | 02/15/20 | 20 mg | | | | mg 20 mg, feeding tube, DAILY, | | 18 9:30 | | | | | First dose on Sun02/14/18 at 1000, | | AM PDT | | | | | Until Discontinued | | | | | | + +-------+ +-------+---+---+ +---+---+ | | | +---+---+ + +-------+ +------+---+---+ | LORazepam (ATIVAN) injection 1 | Given | 03/12/20 | 1 mg | | | | mg 1 mg, intravenous, ONCE | | 18 12:39 | | | | | NEEDED, 1 dose, Starting Tue | | PM PDT | | | | | 03/12/18 at 0845, Until 03/12/18 | | | | | | | at 1239, sedation for PET | | | | | | + +-------+ +------+---+---+ +---+---+ | | | +---+---+ + +-------+ +------+---+---+ | LORazepam (ATIVAN) tablet 1 mg | Given | 03/12/20 | 1 mg | | | | 1 mg, oral, ONCE, 1 dose, Tue | | 18 10:32 | | | | | 03/12/18 at 0930 | | AM PDT | | | | + +-------+ +------+---+---+ +---+---+ | | | +---+---+ + +---------+ +-----+---+---+ | magnesium sulfate in water IV | New Bag | 02/15/20 | 2 g | | | | (RTU) 2 g 2 g, intravenous, | | 18 7:38 | | | | | ONCE, 1 dose, Lisa 02/14/18 at 1930 | | PM PDT | | | | + +---------+ +-----+---+---+ +---+---+ | | | +---+---+ + +-------+ +------+---+---+ | melatonin tablet 3 mg 3 mg, | Given | 03/14/20 | 3 mg | | | | feeding tube, EVERY EVENING, | | 18 8:17 | | | | | First dose on Sun02/22/18 at | | PM PDT | | | | | 2100, Until Discontinued | | | | | | + +-------+ +------+---+---+ +-------+ +------+---+---+ | Given | 03/13/20 | 3 mg | | | | | 18 8:26 | | | | | | PM PDT | | | | +-------+ +------+---+---+ | Given | 03/12/20 | 3 mg | | | | | 18 8:14 | | | | | | PM PDT | | | | +-------+ +------+---+---+ +---+---+ | | | +---+---+ + +-------+ +---+---+---+ | menthol-zinc oxide (CALAZIME) | Given | 03/12/20 | | | | | topical paste 0.2%-16.5% | | 18 5:34 | | | | | topical, FOUR TIMES DAILY | | PM PDT | | | | | NEEDED, Starting Sun02/11/18 at | | | | | | | 0013, Until Sun03/15/18 at 1626, | | | | | | | skin irritation, redness, | | | | | | | breakdown | | | | | | + +-------+ +---+---+---+ +-------+ +---+---+ + | Given | 03/04/20 | | | Perineum | | | 18 9:16 | | | | | | PM PDT | | | | +-------+ +---+---+ + | Given | 03/02/20 | | | | | | 18 9:05 | | | | | | AM PDT | | | | +-------+ +---+---+ + +---+---+ | | | +---+---+ + +---------+ + + +---+ | methylPREDNISolone sod succ | New Bag | 03/06/20 | 1,000 mg | 66 mL/hr | | | (SOLU-MEDROL) 1,000 mg in NaCl | | 18 9:35 | | | | | 0.9 % IV 1,000 mg, intravenous, | | AM PDT | | | | | DAILY, 3 doses, First dose on Mon | | | | | | | 03/04/18 at 1700, Last dose on | | | | | | | 03/06/18 at 0900 | | | | | | + +---------+ + + +---+ +---------+ + +---+---+ | New Bag | 03/05/20 | 1,000 mg | | | | | 18 8:23 | | | | | | AM PDT | | | | +---------+ + +---+---+ | New Bag | 03/04/20 | 1,000 mg | | | | | 18 5:30 | | | | | | PM PDT | | | | +---------+ + +---+---+ +---+---+ | | | +---+---+ + +-------+ +-------+---+---+ | metoprolol tartrate (LOPRESSOR) | Given | 02/17/20 | 25 mg | | | | tablet 25 mg 25 mg, oral, TWICE | | 18 5:28 | | | | | DAILY, First dose on Sun02/16/18 | | AM PDT | | | | | at 0500, Until Discontinued | | | | | | + +-------+ +-------+---+---+ +---+---+ | | | +---+---+ + +-------+ +---+---+---+ | miconazole (SECURA) 2 % extra | Given | 03/15/20 | | | | | thick cream topical, TWICE | | 18 9:03 | | | | | DAILY, First dose on Sun02/25/18 | | AM PDT | | | | | at 2100, Until Discontinued | | | | | | + +-------+ +---+---+---+ +-------+ +---+---+---+ | Given | 03/14/20 | | | | | | 18 10:32 | | | | | | PM PDT | | | | +-------+ +---+---+---+ | Given | 03/14/20 | | | | | | 18 9:39 | | | | | | AM PDT | | | | +-------+ +---+---+---+ +---+---+ | | | +---+---+ + +-------+ +------+---+---+ | midazolam (PF) (VERSED) | Given | 02/14/20 | 2 mg | | | | injection 2 mg 2 mg, | | 18 4:26 | | | | | intravenous, ONCE, 1 dose, Wed | | AM PDT | | | | | 02/13/18 at 0445 | | | | | | + +-------+ +------+---+---+ +---+---+ | | | +---+---+ + +-------+ +------+---+---+ | midazolam (PF) (VERSED) | Given | 02/14/20 | 2 mg | | | | injection 2 mg 2 mg, | | 18 4:26 | | | | | intravenous, ONCE, 1 dose, Wed | | AM PDT | | | | | 18 at 0445 | | | | | | + +-------+ +------+---+---+ + +---+ | | | + +---+ | midazolam (PF) (VERSED) | | | injection 1 dose, Starting Wed | | | 02/13/18 at 0339, Until Sun02/13/18 | | | at 0426 | | + +---+ | | | + +---+ + + + +-------+-------+---+ | midazolam (VERSED) 100 mg in | Rate/Dos | 02/14/20 | 1.5 | 1.5 | | | NaCl 0.9 % 100 mL (1 mg/mL) IV | e Change | 18 3:30 | mg/hr | mL/hr | | | infusion 0.5-10 mg/hr (0.5-10 | | PM PDT | | | | | mL/hr), intravenous, CONTINUOUS, | | | | | | | Starting Sun02/13/18 at 0445, | | | | | | | Until Sun02/13/18 at 1758 | | | | | | + + + +-------+-------+---+ + + +---------+---------+---+ | Rate/Dose Change | 02/14/20 | 2 mg/hr | 2 mL/hr | | | | 18 2:24 | | | | | | PM PDT | | | | + + +---------+---------+---+ | Rate/Dose Verify | 02/14/20 | 2.5 | 2.5 | | | | 18 2:00 | mg/hr | mL/hr | | | | PM PDT | | | | + + +---------+---------+---+ +---+---+ | | | +---+---+ + + + +------+---+---+ | midazolam (VERSED) bolus from | Bolus | 02/14/20 | 1 mg | | | | continuous infusion 1-2 mg | from | 18 8:17 | | | | | intravenous, EVERY 1 HOUR | Same Bag | AM PDT | | | | | NEEDED, Starting Sun02/13/18 at | | | | | | | 0400, Until Sun02/13/18 at 1758, | | | | | | | RASS greater than or equal to +2 | | | | | | | OR BSAS greater than +3 OR breath | | | | | | | stacking greater than 5 per | | | | | | | minute | | | | | | + + + +------+---+---+ + + +------+---+---+ | Bolus from Same Bag | 02/14/20 | 1 mg | | | | | 18 8:02 | | | | | | AM PDT | | | | + + +------+---+---+ +---+---+ | | | +---+---+ + +-------+ +---+---+---+ | nystatin (MYCOSTATIN) powder | Given | 03/14/20 | | | | | topical, TWICE DAILY, First dose | | 18 10:32 | | | | | on 02/11/18 at 0900, Until | | PM PDT | | | | | Discontinued | | | | | | + +-------+ +---+---+---+ +-------+ +---+---+---+ | Given | 03/14/20 | | | | | | 18 9:39 | | | | | | AM PDT | | | | +-------+ +---+---+---+ | Given | 03/13/20 | | | | | | 18 8:53 | | | | | | AM PDT | | | | +-------+ +---+---+---+ +---+---+ | | | +---+---+ + +-------+ + +---+---+ | nystatin (MYCOSTATIN) | Given | 03/02/20 | 500,000 | | | | suspension 500,000 Units 500,000 | | 18 2:52 | Units | | | | Units, oral, FOUR TIMES DAILY, | | PM PDT | | | | | First dose on 02/25/18 at | | | | | | | 1800, Until Discontinued | | | | | | + +-------+ + +---+---+ +-------+ + +---+---+ | Given | 03/02/20 | 500,000 | | | | | 18 9:06 | Units | | | | | AM PDT | | | | +-------+ + +---+---+ | Given | 02/29/20 | 500,000 | | | | | 18 9:11 | Units | | | | | PM PDT | | | | +-------+ + +---+---+ +---+---+ | | | +---+---+ + +-------+ +---+---+---+ | nystatin-zinc oxide-lidocaine | Given | 03/13/20 | | | | | (NDX) ointment (compound) | | 18 8:27 | | | | | topical, THREE TIMES DAILY, First | | PM PDT | | | | | dose on 02/23/18 at 1115, | | | | | | | Until Discontinued | | | | | | + +-------+ +---+---+---+ +-------+ +---+---+---+ | Given | 03/12/20 | | | | | | 18 8:14 | | | | | | PM PDT | | | | +-------+ +---+---+---+ | Given | 03/12/20 | | | | | | 18 4:56 | | | | | | PM PDT | | | | +-------+ +---+---+---+ +---+---+ | | | +---+---+ + +-------+ +------+---+---+ | ondansetron (ZOFRAN) tablet 4 | Given | 03/14/20 | 4 mg | | | | mg 4 mg, oral, EVERY 8 HOURS | | 18 8:18 | | | | | NEEDED, Starting Lisa 03/14/18 at | | PM PDT | | | | | 1949, Until Sun03/15/18 at 1626, | | | | | | | nausea/vomiting, first line | | | | | | + +-------+ +------+---+---+ +---+---+ | | | +---+---+ + +-------+ +--------+---+---+ | oxyCODONE (immediate release) | Given | 02/21/20 | 2.5 mg | | | | (ROXICODONE) tablet 2.5-5 mg | | 18 2:50 | | | | | 2.5-5 mg, feeding tube, EVERY 4 | | AM PDT | | | | | HOURS NEEDED, Starting Sun | | | | | | | 02/17/18 at 2051, Until 02/20/18 | | | | | | | at 1725, moderate pain, First | | | | | | | line, goal CPOT0-1 | | | | | | + +-------+ +--------+---+---+ +-------+ +--------+---+---+ | Given | 02/21/20 | 2.5 mg | | | | | 18 1:41 | | | | | | AM PDT | | | | +-------+ +--------+---+---+ | Given | 02/20/20 | 2.5 mg | | | | | 18 6:28 | | | | | | PM PDT | | | | +-------+ +--------+---+---+ +---+---+ | | | +---+---+ + +-------+ +------+---+---+ | oxyCODONE (immediate release) | Given | 02/15/20 | 5 mg | | | | (ROXICODONE) tablet 5 mg 5 mg, | | 18 4:15 | | | | | feeding tube, EVERY 4 HOURS | | AM PDT | | | | | NEEDED, Starting 02/11/18 at | | | | | | | 0936, Until Sun02/14/18 at 1113, | | | | | | | moderate pain, First line, goal | | | | | | | CPOT0-1 | | | | | | + +-------+ +------+---+---+ +-------+ +------+---+---+ | Given | 02/14/20 | 5 mg | | | | | 18 8:17 | | | | | | PM PDT | | | | +-------+ +------+---+---+ | Given | 02/12/20 | 5 mg | | | | | 18 9:21 | | | | | | PM PDT | | | | +-------+ +------+---+---+ +---+---+ | | | +---+---+ + +-------+ +------+---+---+ | oxyCODONE (immediate release) | Given | 02/15/20 | 5 mg | | | | (ROXICODONE) tablet 5 mg 5 mg, | | 18 8:04 | | | | | oral, ONCE, 1 dose, [facility] 02/14/18 at | | AM PDT | | | | | 0830 | | | | | | + +-------+ +------+---+---+ +---+---+ | | | +---+---+ + +-------+ +------+---+---+ | oxyCODONE (immediate release) | Given | 02/18/20 | 5 mg | | | | (ROXICODONE) tablet 5-10 mg 5-10 | | 18 3:52 | | | | | mg, feeding tube, EVERY 4 HOURS | | PM PDT | | | | | NEEDED, Starting Lisa 02/14/18 at | | | | | | | 1105, Until 02/17/18 at 205, | | | | | | | moderate pain, First line, goal | | | | | | | CPOT0-1 | | | | | | + +-------+ +------+---+---+ +-------+ +------+---+---+ | Given | 02/15/20 | 5 mg | | | | | 18 11:09 | | | | | | PM PDT | | | | +-------+ +------+---+---+ | Given | 02/15/20 | 5 mg | | | | | 18 10:09 | | | | | | PM PDT | | | | +-------+ +------+---+---+ +---+---+ | | | +---+---+ + +-------+ +--------+---+---+ | perflutren lipid microspheres | Given | 02/12/20 | 1.5 mL | | | | (DEFINITY) injection 1.5 mL 1.5 | | 18 9:08 | | | | | mL, intravenous, PROCEDURE ONCE, | | AM PDT | | | | | 1 dose, 02/11/18 at 0915 | | | | | | + +-------+ +--------+---+---+ +---+---+ | | | +---+---+ + +---------+ +-------+---+---+ | piperacillin-tazobactam (ZOSYN) | New Bag | 02/14/20 | 4.5 g | | | | IV 4.5 g 4.5 g, intravenous, | | 18 7:49 | | | | | EVERY 8 HOURS, First dose on Mon | | AM PDT | | | | | 02/11/18 at 0715, Until | | | | | | | Discontinued | | | | | | + +---------+ +-------+---+---+ +---------+ +-------+---+---+ | New Bag | 02/13/20 | 4.5 g | | | | | 18 11:44 | | | | | | PM PDT | | | | +---------+ +-------+---+---+ | New Bag | 02/13/20 | 4.5 g | | | | | 18 3:56 | | | | | | PM PDT | | | | +---------+ +-------+---+---+ +---+---+ | | | +---+---+ + +---------+ +-------+---+---+ | piperacillin-tazobactam (ZOSYN) | New Bag | 02/12/20 | 4.5 g | | | | IV 4.5 g 4.5 g, intravenous, | | 18 1:16 | | | | | ONCE, 1 dose, Sun02/11/18 at 0030 | | AM PDT | | | | + +---------+ +-------+---+---+ +---+---+ | | | +---+---+ + +-------+ +------+---+---+ | polyethylene glycol (MIRALAX) | Given | 02/15/20 | 17 g | | | | packet 17 g 17 g, feeding tube, | | 18 8:49 | | | | | DAILY, First dose on Sun02/11/18 | | AM PDT | | | | | at 0900, Until Discontinued | | | | | | + +-------+ +------+---+---+ +-------+ +------+---+---+ | Given | 02/14/20 | 17 g | | | | | 18 9:35 | | | | | | AM PDT | | | | +-------+ +------+---+---+ | Given | 02/13/20 | 17 g | | | | | 18 7:59 | | | | | | AM PDT | | | | +-------+ +------+---+---+ + +---+ | | | + +---+ | polyethylene glycol (MIRALAX) | | | packet 34 g 34 g, feeding tube, | | | THREE TIMES DAILY NEEDED, | | | Starting 02/18/18 at 1013, | | | Until 03/15/18 at 1626, 2nd | | | line - for no BM for 2 days | | + +---+ | | | + +---+ + +-------+ +--------+---+---+ | potassium & sodium phosphates | Given | 02/12/20 | 250 mg | | | | (K PHOS NEUTRAL) tablet 250 mg | | 18 9:13 | | | | | 250 mg, oral, TWICE DAILY, First | | AM PDT | | | | | dose on Sun02/11/18 at 0900, Until | | | | | | | Discontinued | | | | | | + +-------+ +--------+---+---+ +---+---+ | | | +---+---+ + +-------+ +--------+---+---+ | potassium & sodium phosphates | Given | 02/12/20 | 250 mg | | | | (K PHOS NEUTRAL) tablet 250 mg | | 18 9:22 | | | | | 250 mg, feeding tube, TWICE | | PM PDT | | | | | DAILY, First dose on Sun02/11/18 | | | | | | | at 2100, Until Discontinued | | | | | | + +-------+ +--------+---+---+ +---+---+ | | | +---+---+ + +-------+ +--------+---+---+ | potassium chloride (KLOR-CON) | Given | 02/13/20 | 20 mEq | | | | packet 20 mEq 20 mEq, feeding | | 18 9:58 | | | | | tube, ONCE, 1 dose, 02/12/18 at | | AM PDT | | | | | 1000 | | | | | | + +-------+ +--------+---+---+ +---+---+ | | | +---+---+ + +-------+ +--------+---+---+ | potassium chloride (KLOR-CON) | Given | 02/13/20 | 20 mEq | | | | packet 20 mEq 20 mEq, feeding | | 18 9:56 | | | | | tube, ONCE, 1 dose, e 02/12/18 at | | PM PDT | | | | | 2200 | | | | | | + +-------+ +--------+---+---+ +---+---+ | | | +---+---+ + +-------+ +--------+---+---+ | potassium chloride (KLOR-CON) | Given | 02/14/20 | 20 mEq | | | | packet 20 mEq 20 mEq, oral, | | 18 3:53 | | | | | ONCE, 1 dose, Sun02/13/18 at 1330 | | PM PDT | | | | + +-------+ +--------+---+---+ +---+---+ | | | +---+---+ + +-------+ +--------+---+---+ | potassium chloride (KLOR-CON) | Given | 02/13/20 | 40 mEq | | | | packet 40 mEq 40 mEq, feeding | | 18 6:06 | | | | | tube, EVERY 1 HOUR, 2 doses, | | AM PDT | | | | | First dose on Sun02/12/18 at 0445, | | | | | | | Last dose on Sun02/12/18 at 0600 | | | | | | + +-------+ +--------+---+---+ +-------+ +--------+---+---+ | Given | 02/13/20 | 40 mEq | | | | | 18 4:40 | | | | | | AM PDT | | | | +-------+ +--------+---+---+ +---+---+ | | | +---+---+ + +-------+ +--------+---+---+ | potassium chloride (KLOR-CON) | Given | 02/15/20 | 40 mEq | | | | packet 40 mEq 40 mEq, oral, | | 18 8:04 | | | | | EVERY 1 HOUR, 2 doses, First dose | | AM PDT | | | | | on Lisa 02/14/18 at 0630, Last dose | | | | | | | on Lisa 02/14/18 at 0800 | | | | | | + +-------+ +--------+---+---+ +-------+ +--------+---+---+ | Given | 02/15/20 | 40 mEq | | | | | 18 6:51 | | | | | | AM PDT | | | | +-------+ +--------+---+---+ +---+---+ | | | +---+---+ + +-------+ +--------+---+---+ | potassium chloride (KLOR-CON) | Given | 02/15/20 | 40 mEq | | | | packet 40 mEq 40 mEq, feeding | | 18 2:49 | | | | | tube, ONCE, 1 dose, [facility] 02/14/18 at | | PM PDT | | | | | 1445 | | | | | | + +-------+ +--------+---+---+ +---+---+ | | | +---+---+ + +-------+ +--------+---+---+ | potassium chloride (KLOR-CON) | Given | 02/15/20 | 40 mEq | | | | packet 40 mEq 40 mEq, feeding | | 18 7:38 | | | | | tube, ONCE, 1 dose, [facility] 02/14/18 at | | PM PDT | | | | | 1945 | | | | | | + +-------+ +--------+---+---+ +---+---+ | | | +---+---+ + +-------+ +--------+---+---+ | potassium chloride (KLOR-CON) | Given | 02/18/20 | 40 mEq | | | | packet 40 mEq 40 mEq, feeding | | 18 5:01 | | | | | tube, ONCE, 1 dose, [place] 02/17/18 at | | AM PDT | | | | | 0530 | | | | | | + +-------+ +--------+---+---+ +---+---+ | | | +---+---+ + +-------+ +--------+---+---+ | potassium chloride (KLOR-CON) | Given | 02/20/20 | 40 mEq | | | | packet 40 mEq 40 mEq, feeding | | 18 8:50 | | | | | tube, EVERY 1 HOUR, 2 doses, | | AM PDT | | | | | First dose on Sun02/19/18 at | | | | | | | 0800, Last dose on Sun02/19/18 at | | | | | | | 0900 | | | | | | + +-------+ +--------+---+---+ +-------+ +--------+---+---+ | Given | 02/20/20 | 40 mEq | | | | | 18 7:09 | | | | | | AM PDT | | | | +-------+ +--------+---+---+ +---+---+ | | | +---+---+ + +-------+ +--------+---+---+ | potassium chloride (KLOR-CON) | Given | 02/21/20 | 40 mEq | | | | packet 40 mEq 40 mEq, feeding | | 18 11:31 | | | | | tube, ONCE, 1 dose, 02/20/18 | | AM PDT | | | | | at 1100 | | | | | | + +-------+ +--------+---+---+ +---+---+ | | | +---+---+ + +---------+ +--------+---+---+ | potassium chloride IV | New Bag | 02/13/20 | 20 mEq | | | | (peripheral line) 20 mEq 20 mEq, | | 18 5:09 | | | | | intravenous, ONCE, 1 dose, Tue | | AM PDT | | | | | 02/12/18 at 0500 | | | | | | + +---------+ +--------+---+---+ +---+---+ | | | +---+---+ + +-------+ + +---+---+ | potassium, sodium phosphates | Given | 02/13/20 | 1 packet | | | | (NEUTRA-PHOS, PHOS-NAK) | | 18 8:01 | | | | | 280-160-250 mg packet 1 packet 1 | | AM PDT | | | | | packet, oral, ONCE, 1 dose, Tue | | | | | | | 02/12/18 at 0700 | | | | | | + +-------+ + +---+---+ +---+---+ | | | +---+---+ + +-------+ + +---+---+ | potassium, sodium phosphates | Given | 02/15/20 | 1 packet | | | | (NEUTRA-PHOS, PHOS-NAK) | | 18 11:45 | | | | | 280-160-250 mg packet 1 packet 1 | | AM PDT | | | | | packet, oral, EVERY 6 HOURS, 2 | | | | | | | doses, First dose on [facility] 02/14/18 | | | | | | | at 0630, Last dose on [facility] 02/14/18 | | | | | | | at 1000 | | | | | | + +-------+ + +---+---+ +-------+ + +---+---+ | Given | 02/15/20 | 1 packet | | | | | 18 6:52 | | | | | | AM PDT | | | | +-------+ + +---+---+ +---+---+ | | | +---+---+ + +-------+ +---------+---+---+ | potassium, sodium phosphates | Given | 02/13/20 | 2 | | | | (NEUTRA-PHOS, PHOS-NAK) | | 18 10:02 | packets | | | | 280-160-250 mg packet 2 packet 2 | | AM PDT | | | | | packet, feeding tube, ONCE, 1 | | | | | | | doseAlvaro 02/12/18 at 1015 | | | | | | + +-------+ +---------+---+---+ +---+---+ | | | +---+---+ + + + +---+---+---+ | probiotic kefir (KEYONNA'S KEFIR) | Given - | 02/20/20 | | | | | oral, TWICE DAILY, First dose | Food | 18 9:16 | | | | | on Lisa 02/14/18 at 2100, Until | | PM PDT | | | | | Discontinued | | | | | | + + + +---+---+---+ + + +---+---+---+ | Given - Food | 02/20/20 | | | | | | 18 11:50 | | | | | | AM PDT | | | | + + +---+---+---+ | Given - Food | 02/19/20 | | | | | | 18 9:10 | | | | | | PM PDT | | | | + + +---+---+---+ +---+---+ | | | +---+---+ + + + +---+---+---+ | probiotic kefir (KEYONNA'S KEFIR) | Given - | 03/13/20 | | | | | feeding tube, THREE TIMES | Food | 18 8:27 | | | | | DAILY, First dose on 02/23/18 | | PM PDT | | | | | at 0945, Until Discontinued | | | | | | + + + +---+---+---+ + + +---+---+---+ | Given - Food | 03/13/20 | | | | | | 18 6:07 | | | | | | PM PDT | | | | + + +---+---+---+ | Given - Food | 03/13/20 | | | | | | 18 8:51 | | | | | | AM PDT | | | | + + +---+---+---+ + +---+ | | | + +---+ | probiotic yogurt (KEYONNA'S | | | YOGURT) oral, TWICE DAILY, First | | | dose on Sun03/14/18 at 1000, | | | Until Discontinued | | + +---+ | | | + +---+ + + + +-------+---+---+ | propofol (DIPRIVAN) bolus from | Bolus | 02/17/20 | 10 mg | | | | continuous infusion 10-20 mg | from | 18 3:00 | | | | | intravenous, EVERY 15 MINUTES | Same Bag | AM PDT | | | | | NEEDED, Starting 02/11/18 at | | | | | | | 0111, Until Sun02/18/18 at 1007, | | | | | | | RASS greater than or equal to +2 | | | | | | | OR BSAS greater than +3 OR breath | | | | | | | stacking greater than 5 per | | | | | | | minute | | | | | | + + + +-------+---+---+ + + +-------+---+---+ | Bolus from Same Bag | 02/16/20 | 10 mg | | | | | 18 11:00 | | | | | | PM PDT | | | | + + +-------+---+---+ | Bolus from Same Bag | 02/16/20 | 20 mg | | | | | 18 8:30 | | | | | | PM PDT | | | | + + +-------+---+---+ + +---+ | | | + +---+ | propofol (DIPRIVAN) injection | | | 1 dose, Starting 02/10/18 at | | | 2310, Until Sun02/11/18 at 1114 | | + +---+ | | | + +---+ + + + + +-------+---+ | propofol (DIPRIVAN) injection | Rate/Dos | 02/18/20 | 10 | 9.72 | | | 0.5-50 mcg/kg/min | e Change | 18 10:15 | mcg/kg/m | mL/hr | | | 162 kg Dosing weight (0.486-48.6 | | AM PDT | in | | | | mL/hr, rounded to 0.49-48.6 | | | | | | | mL/hr), intravenous, CONTINUOUS, | | | | | | | Starting Sun02/11/18 at 0115, | | | | | | | Until Sun02/18/18 at 1002 | | | | | | + + + + +-------+---+ + + + +--------+---+ | Rate/Dose Verify | 02/18/20 | 15 | 14.58 | | | | 18 10:00 | mcg/kg/m | mL/hr | | | | AM PDT | in | | | + + + +--------+---+ | New Bag | 02/18/20 | 15 | 14.58 | | | | 18 9:19 | mcg/kg/m | mL/hr | | | | AM PDT | in | | | + + + +--------+---+ +---+---+ | | | +---+---+ + +-------+ +-------+---+---+ | QUEtiapine (SEROQUEL) tablet 25 | Given | 02/24/20 | 25 mg | | | | mg 25 mg, oral, EVERY EVENING, | | 18 8:51 | | | | | First dose on 02/23/18 at | | PM PDT | | | | | 2100, Until Discontinued | | | | | | + +-------+ +-------+---+---+ +---+---+ | | | +---+---+ + +-------+ +-------+---+---+ | QUEtiapine (SEROQUEL) tablet 25 | Given | 03/14/20 | 25 mg | | | | mg 25 mg, feeding tube, EVERY | | 18 8:17 | | | | | EVENING, First dose on Mon | | PM PDT | | | | | 03/11/18 at 2100, Until | | | | | | | Discontinued | | | | | | + +-------+ +-------+---+---+ +-------+ +-------+---+---+ | Given | 03/13/20 | 25 mg | | | | | 18 8:26 | | | | | | PM PDT | | | | +-------+ +-------+---+---+ | Given | 03/12/20 | 25 mg | | | | | 18 8:14 | | | | | | PM PDT | | | | +-------+ +-------+---+---+ +---+---+ | | | +---+---+ + +-------+ +-------+---+---+ | QUEtiapine (SEROQUEL) tablet 50 | Given | 02/25/20 | 50 mg | | | | mg 50 mg, oral, EVERY EVENING, | | 18 8:36 | | | | | First dose on 02/24/18 at | | PM PDT | | | | | 2100, Until Discontinued | | | | | | + +-------+ +-------+---+---+ +---+---+ | | | +---+---+ + +-------+ +-------+---+---+ | QUEtiapine (SEROQUEL) tablet 50 | Given | 03/10/20 | 50 mg | | | | mg 50 mg, feeding tube, EVERY | | 18 9:17 | | | | | EVENING, First dose on Mon | | PM PDT | | | | | 02/25/18 at 2100, Until | | | | | | | Discontinued | | | | | | + +-------+ +-------+---+---+ +-------+ +-------+---+---+ | Given | 03/09/20 | 50 mg | | | | | 18 8:20 | | | | | | PM PDT | | | | +-------+ +-------+---+---+ | Given | 04/27/20 | 50 mg | | | | | 18 8:41 | | | | | | PM PDT | | | | +-------+ +-------+---+---+ +---+---+ | | | +---+---+ + +-------+ +---------+---+---+ | senna (SENOKOT) liquid 17.6 mg | Given | 02/18/20 | 17.6 mg | | | | 17.6 mg (10 mL), feeding tube, | | 18 9:03 | | | | | TWICE DAILY, First dose on Mon | | PM PDT | | | | | 02/11/18 at 0030, Until | | | | | | | Discontinued | | | | | | + +-------+ +---------+---+---+ +-------+ +---------+---+---+ | Given | 02/15/20 | 17.6 mg | | | | | 18 8:59 | | | | | | PM PDT | | | | +-------+ +---------+---+---+ | Given | 02/15/20 | 17.6 mg | | | | | 18 8:49 | | | | | | AM PDT | | | | +-------+ +---------+---+---+ +---+---+ | | | +---+---+ + +-------+ +---------+---+---+ | senna (SENOKOT) liquid 17.6 mg | Given | 02/23/20 | 17.6 mg | | | | 17.6 mg (10 mL), feeding tube, | | 18 2:00 | | | | | TWICE DAILY NEEDED, Starting | | PM PDT | | | | | 02/18/18 at 1000, Until Fri | | | | | | | 03/15/18 at 1626, constipation, | | | | | | | First line | | | | | | + +-------+ +---------+---+---+ +---+---+ | | | +---+---+ + +-------+ +--------+---+---+ | sertraline (ZOLOFT) tablet 100 | Given | 02/16/20 | 100 mg | | | | mg 100 mg, feeding tube, DAILY, | | 18 10:55 | | | | | First dose on Sun02/11/18 at 0900, | | AM PDT | | | | | Until Discontinued | | | | | | + +-------+ +--------+---+---+ +-------+ +--------+---+---+ | Given | 02/15/20 | 100 mg | | | | | 18 9:30 | | | | | | AM PDT | | | | +-------+ +--------+---+---+ | Given | 02/14/20 | 100 mg | | | | | 18 9:35 | | | | | | AM PDT | | | | +-------+ +--------+---+---+ +---+---+ | | | +---+---+ + +-------+ +--------+---+---+ | sertraline (ZOLOFT) tablet 100 | Given | 02/26/20 | 100 mg | | | | mg 100 mg, oral, DAILY, First | | 18 9:52 | | | | | dose on 02/16/18 at 1115, Until | | AM PDT | | | | | Discontinued | | | | | | + +-------+ +--------+---+---+ +-------+ +--------+---+---+ | Given | 02/25/20 | 100 mg | | | | | 18 9:41 | | | | | | AM PDT | | | | +-------+ +--------+---+---+ | Given | 02/24/20 | 100 mg | | | | | 18 8:38 | | | | | | AM PDT | | | | +-------+ +--------+---+---+ +---+---+ | | | +---+---+ + +-------+ +--------+---+---+ | sertraline (ZOLOFT) tablet 100 | Given | 03/15/20 | 100 mg | | | | mg 100 mg, feeding tube, DAILY, | | 18 9:02 | | | | | First dose on Sun02/26/18 at | | AM PDT | | | | | 0900, Until Discontinued | | | | | | + +-------+ +--------+---+---+ +-------+ +--------+---+---+ | Given | 03/14/20 | 100 mg | | | | | 18 9:11 | | | | | | AM PDT | | | | +-------+ +--------+---+---+ | Given | 03/13/20 | 100 mg | | | | | 18 8:46 | | | | | | AM PDT | | | | +-------+ +--------+---+---+ +---+---+ | | | +---+---+ + +-------+ +--------+---+---+ | thiamine (VITAMIN B-1) | Given | 03/02/20 | 100 mg | | | | injection 100 mg 100 mg, | | 18 9:06 | | | | | intravenous, DAILY, 3 doses, | | AM PDT | | | | | First dose on Sun03/01/18 at | | | | | | | 1900, Last dose on Sun03/03/18 at | | | | | | | 0900 | | | | | | + +-------+ +--------+---+---+ +-------+ +--------+---+---+ | Given | 03/01/20 | 100 mg | | | | | 18 11:39 | | | | | | PM PDT | | | | +-------+ +--------+---+---+ +---+---+ | | | +---+---+ + +---------+ +--------+-------+---+ | thiamine (VITAMIN B-1) IV 250 | New Bag | 03/07/20 | 250 mg | 105 | | | mg 250 mg, intravenous, DAILY, 5 | | 18 8:21 | | mL/hr | | | doses, First dose on 03/05/18 | | AM PDT | | | | | at 0900, Last dose on Sun | | | | | | | 03/09/18 at 0900 | | | | | | + +---------+ +--------+-------+---+ +---------+ +--------+-------+---+ | New Bag | 03/06/20 | 250 mg | 105 | | | | 18 8:34 | | mL/hr | | | | AM PDT | | | | +---------+ +--------+-------+---+ | New Bag | 03/05/20 | 250 mg | 105 | | | | 18 9:49 | | mL/hr | | | | AM PDT | | | | +---------+ +--------+-------+---+ +---+---+ | | | +---+---+ + +---------+ +--------+-------+---+ | thiamine (VITAMIN B-1) IV 500 | New Bag | 03/03/20 | 500 mg | 110 | | | mg 500 mg, intravenous, DAILY, 3 | | 18 7:56 | | mL/hr | | | doses, First dose on 03/02/18 | | AM PDT | | | | | at 0945, Last dose on Mon | | | | | | | 03/04/18 at 0900 | | | | | | + +---------+ +--------+-------+---+ +---------+ +--------+-------+---+ | New Bag | 03/02/20 | 500 mg | 110 | | | | 18 12:24 | | mL/hr | | | | PM PDT | | | | +---------+ +--------+-------+---+ +---+---+ | | | +---+---+ + +---------+ +--------+-------+---+ | thiamine (VITAMIN B-1) IV 500 | New Bag | 03/04/20 | 500 mg | 110 | | | mg 500 mg, intravenous, THREE | | 18 10:28 | | mL/hr | | | TIMES DAILY, First dose on Sun | | PM PDT | | | | | 03/03/18 at 1600, Until | | | | | | | Discontinued | | | | | | + +---------+ +--------+-------+---+ +---------+ +--------+-------+---+ | New Bag | 03/04/20 | 500 mg | 110 | | | | 18 3:58 | | mL/hr | | | | PM PDT | | | | +---------+ +--------+-------+---+ | New Bag | 03/04/20 | 500 mg | 110 | | | | 18 10:01 | | mL/hr | | | | AM PDT | | | | +---------+ +--------+-------+---+ +---+---+ | | | +---+---+ + +-------+ +--------+---+---+ | thiamine tablet 100 mg 100 mg, | Given | 02/14/20 | 100 mg | | | | feeding tube, DAILY, 3 doses, | | 18 9:35 | | | | | First dose on Sun02/11/18 at 1715, | | AM PDT | | | | | Last dose on Sun02/13/18 at 0900 | | | | | | + +-------+ +--------+---+---+ +-------+ +--------+---+---+ | Given | 02/13/20 | 100 mg | | | | | 18 8:00 | | | | | | AM PDT | | | | +-------+ +--------+---+---+ | Given | 02/12/20 | 100 mg | | | | | 18 6:31 | | | | | | PM PDT | | | | +-------+ +--------+---+---+ +---+---+ | | | +---+---+ + +-------+ +---------+---+ + | tuberculin (TUBERSOL, APLISOL) | Given | 03/12/20 | 5 Units | | Left Arm | | injection 5 Units 5 Units, | | 18 4:52 | | | | | intradermal, ONCE, 1 dose, Tue | | PM PDT | | | | | 03/12/18 at 1115 | | | | | | + +-------+ +---------+---+ + +---+---+ | | | +---+---+ + +---------+ + +---+---+ | vancomycin (VANCOCIN) IV 2,000 | New Bag | 02/12/20 | 2,000 mg | | | | mg 2,000 mg, intravenous, ONCE, | | 18 3:05 | | | | | 1 dose, 02/11/18 at 0230 | | AM PDT | | | | + +---------+ + +---+---+ +---+---+ | | | +---+---+ + +---------+ + +---+---+ | vancomycin (VANCOCIN) IV 2,000 | New Bag | 02/13/20 | 2,000 mg | | | | mg 2,000 mg, intravenous, EVERY | | 18 3:13 | | | | | 12 HOURS, First dose on Mon | | AM PDT | | | | | 02/11/18 at 1500, Until | | | | | | | Discontinued | | | | | | + +---------+ + +---+---+ +---------+ + +---+---+ | New | 02/12/20 | 2,000 mg | | | | | 18 2:47 | | | | | | PM PDT | | | | +---------+ + +---+---+ +---+---+ | | | +---+---+ + +-------+ +---+---+---+ | white petrolatum-mineral | Given | 02/17/20 | | | | | oil-lanolin (LACRILUBE) 83-15 % | | 18 4:30 | | | | | ophthalmic ointment Both Eyes, | | AM PDT | | | | | NEEDED, Starting Sun02/13/18 at | | | | | | | 1044, Until Sun03/15/18 at 1626, | | | | | | | dry eyes | | | | | | + +-------+ +---+---+---+ +-------+ +---+---+---+ | Given | 02/16/20 | | | | | | 18 10:29 | | | | | | PM PDT | | | | +-------+ +---+---+---+ | Given | 02/14/20 | | | | | | 18 3:52 | | | | | | PM PDT | | | | +-------+ +---+---+---+ +---+---+ | | | +---+---+ documented in this encounter
--- OUTSIDE RECORDS SUMMARY | ~2019-04-06 | XMS | Encounter Summary ---
Demographics + + + | Address | [address] | | | [place] [address] | + + + | Home Phone | | + + + | Preferred Language | Unknown | + + + | Marital Status | Single | + + + | Jew Affiliation | NON | + + + | Race | White | + + + | Ethnic Group | Not or | + + + Author + + + | Author | [facility] | + + + | Organization | [facility] | + + + | Address | Unknown | + + + | Phone | Unavailable | + + + Support + + + + + | Name | Relationship | Address | Phone | + + + + + | Caroline Gil | ECON | [place], [place] | | | | | [address] | | + + + + + | Van Reeves | ECON | [address] | | | | | [place] | | | | | [address] | | + + + + + | Cherelle Rea | ECON | Unknown | | + + + + + Care Team Providers + +------+ + | Care Juvenile Counselor Name | Role | Phone | + +------+ + | Jamel Keyes NP | PCP | | + +------+ + Encounter Details +--------+ + + + + | Date | Type | Department | Care Team | Description | +--------+ + + + + | 03/04/ | Procedure | Diagnostic Imaging | | | | 2018 | Pass | Services at [facility] | | | | | | [address] | | | | | | [facility] | | | | | | Mailcode: [id number] [facility] | | | | | | [facility], | | | | | | [place] [address] | | | | | | [phone] | | | +--------+ + + + [...]
--- OUTSIDE RECORDS SUMMARY | ~2019-04-06 | XMS | Encounter Summary ---
Demographics + + + | Address | [address] | | | [place] [address] | + + + | Home Phone [...] | Author | [facility] | + + + | Organization | [facility] | + + + | Address | Unknown | + + + | Phone | Unavailable | + + + Support + + + + + | Name | Relationship | Address | Phone | + + + + + | Caroline Gil | ECON | [place], [place] | | | | | [address] | | + + + + + | Van Reeves | ECON | [address] | | | | | [place] | | | | | [address] | | + + + + + | Cherelle Rea | ECON | Unknown | | + + + + + Care Team Providers + +------+ + | Care Flight Kitchen Manager Name | Role | Phone | [...] | Only | [address] | [phone] | | | | | Road [place], [place] | | | | | | [address] | | | | | | [phone] | | | +--------+ + + + [...] | + + + + + | [facility] | [address] | [place] [address] | | | PATHOLOGY | [address] | | | + + + + + documented in this encounter Visit Diagnoses Not on filedocumented in this encounter"
--- OUTSIDE RECORDS SUMMARY | ~2019-04-06 | XMS | Clinical Summary ---
Demographics + + + | Address | [address] | | | [place] [address] | + + + | Home Phone [...] + | Caroline Gil | ECON | [place], [place] | | | | | [address] | | + + + + + | Van Reeves | ECON | [address] | | | | | [place] | | | | | [address] | | + + + + + | Cherelle Rea | ECON | Unknown | | + + + + + Care Team Providers + +------+ + | Care Hydro Operator Name | Role | Phone | + +------+ + | Jamel Keyes NP | PP | | + +------+ + Source Comments [facility] is fully live on both [facility] and [facility] Allergies No Known Allergies Medications + + [...] MEDICARE | MEDICA | xxxxxxxxxxx | | [phone] | [address] | [address] | | | RE A & | | [phone] | [address] | | | B | | esent | | [place], [place] | | | | | | | | [address] | | + +--------+ +--------+ + +--------+ | | CHAM[employer] | xxxxxxxxx | 10/25/ | [phone] | | Indemn | | | A [...] | 1954 | [id number] | [place] [address] | | | craig | | | 5 (Home) | | + +--------+ +--------+ + + | Sarah Reeves | [place] | Self | [birth year] | | [address] | | | [place] | | 1954 | [id number] | [place] [address] | | | red | | | [...]
--- OUTSIDE RECORDS SUMMARY | ~2019-04-06 | XMS | Encounter Summary ---
Demographics + + + | Address | [address] | | | [place] [address] | + + + | Home Phone | | + + + | Preferred Language | Unknown | + + + | Marital Status | Single | + + + | Uatsdin Affiliation | NON | + + + | Race | White | + + + | Ethnic Group | Not or | + + + Author + + + | Author | [facility] | + + + | Organization | [facility] | + + + | Address | Unknown | + + + | Phone | Unavailable | + + + Support + + + + + | Name | Relationship | Address | Phone | + + + + + | Caroline Gil | ECON | [place], [place] | | | | | [address] | | + + + + + | Van Reeves | ECON | [address] | | | | | [place] | | | | | [address] | | + + + + + | Cherelle Rea | ECON | Unknown | | + + + + + Care Team Providers + +------+ + | Care Hazmat Technician Name | Role | Phone | + +------+ + | Jamel Keyes NP | PCP | | + +------+ + Encounter Details +--------+ + + + + | Date | Type | Department | Care Team | Description | +--------+ + + + + | 02/28/ | Procedure | Diagnostic Imaging | | | | 2017 | Pass | Services at [facility] | | | | | | [address] | | | | | | [facility] | | | | | | Mail[address]: [id number] | | | | | | [facility] | | | | | | [place], [place] | | | | | | [address] | | | | | | [phone] | | | +--------+ + + + [...]
--- OUTSIDE RECORDS SUMMARY | ~2019-04-06 | XMS | Encounter Summary ---
Demographics + + + | Address | [address] | | | [place] [address] | + + + | Home Phone | | + + + | Preferred Language | Unknown | + + + | Marital Status | Single | + + + | Denominational Affiliation | NON | + + + | Race | White | + + + | Ethnic Group | Not or | + + + Author + + + | Author | [facility] | + + + | Organization | [facility] | + + + | Address | Unknown | + + + | Phone | Unavailable | + + + Support + + + + + | Name | Relationship | Address | Phone | + + + + + | Caroline Gil | ECON | [place], [place] | | | | | [address] | | + + + + + | Van Reeves | ECON | [address] | | | | | [place] | | | | | [address] | | + + + + + | Cherelle Rea | ECON | Unknown | | + + + + + Care Team Providers + +------+ + | Care Dynamicist Name | Role | Phone | + +------+ + | Jamel Keyes NP | PCP | | + +------+ + Encounter Details +--------+ + + + + | Date | Type | Department | Care Team | Description | +--------+ + + + + | 03/01/ | Anesthesia | Diagnostic Imaging | Marlen Odell, | | | 2018 | Event | Services at [facility] | [address] | | | | | [address] | [facility] | | | | | [facility] | [place], [place] | | | | | Mail[address]: [id number] | [address] | | | | | [address] | [phone] | | | | | [place], [place] | | | | | | [address] | | | | | | [phone] | | | +--------+ + + + + Anesthesia Record + + + + + | Procedure Name | Responsible | Anesthesia Start | Anesthesia Stop Time | | | Anesthesiologist | Time | | + + + + + | MRI BRAIN WWO | | | | | CONTRAST | | | | + + + + + + + | No events on file. | + + +------+ | Meds | +------+ + + + No medications | on file. | + + + + + | No agents on file. | + + + + | No blood administrations on file. | + + + + | No LDAs on file. | + + documented in this encounter Social History + +-------+ +--------+------+ | Tobacco [...]
--- OUTSIDE RECORDS SUMMARY | ~2019-04-06 | XMS | Encounter Summary ---
Demographics + + + | Address | [address] | | | [place] [address] | + + + | Home Phone [...] Author + + + | Author | [facility] | + + + | Organization | [facility] | + + + | Address | Unknown | + + + | Phone | Unavailable | + + + Support + + + + + | Name | Relationship | Address | Phone | + + + + + | Caroline Gil | ECON | [place], [place] | | | | | [address] | | + + + + + | Van Reeves | ECON | [address] | | | | | [place] | | | | | [address] | | + + + + + | Cherelle Rea | ECON | Unknown | | + + + + + Care Team Providers + +------+ + | Care Branch Coordinator Name | Role | Phone | + [...] | Only | [address] | [phone] | | | | | Road [place], [place] | | | | | | [address] | | | | | | [phone] | | | +--------+ + + + [...] | | | | | | [facility], [place], | | | | | | [place], are twoslides | | | | | | bearing accession number | | | | | | [id number] ([id number] and | | | | | [...] | + + + + + | [facility] [place] | [address] | [place] [address] | | | PATHOLOGY | [address] | | | + + + + + documented in this encounter Visit Diagnoses Not on filedocumented in this encounter"
--- OUTSIDE RECORDS SUMMARY | ~2019-04-06 | XMS | Encounter Summary ---
Demographics + + + | Address | [address] | | | [place] [address] | + + + | Home Phone [...] + | Caroline Gil | ECON | [place], [place] | | | | | [address] | | + + + + + | Van Reeves | ECON | [address] [facility] [address] [facility] | | | | | [place] | | | | | [address] | | + + + + + | Latanya Rea | ECON | Unknown | | + + + + + Care Team Providers + +------+ + | Care Account Financial Manager Name | Role | Phone | [...] | | | | | unspecified | [place], [place] | | | | | | laterality, | [address] | | | | | | unspecified | Phone: | | | | | | part of lung | [phone] | | | | | | | Fax: | | | | | | Encephalomye | [phone] | | | | | | litis, [...] | | | | | unspecified | [place], [place] | | | | | | laterality, | [address] | | | | | | unspecified | Phone: | | | | | | part of lung | [phone] | | | | | | | Fax: | | | | | | Encephalomye | [phone] | | | | | | litis, [...] | | | | | infectious | [facility] | | | | | | organism, | Rd | | | | | | unspecified | [place], [place] | | | | | | laterality, | [address] | | | | | | unspecified | Phone: | | | | | | part of lung | [phone] | | | | | | | Fax: | | | | | | Encephalomye | [phone] | | | | | | litis, [...] + + | 02/11/ | Hospital | [facility] 14C [address] | [place], | | | 2018 - | Encounter | [address] | [address] [facility] | | | | | 14C [facility] | [address] | | | 03/15/ | | [place], [place] | [place], [place] | | | 2018 | | [address] | [address] | | | | | [phone] | [phone] | | | | | | | | | | | | Leif Matamoros MD | | | | | | [address] | | | | | | [facility] | | | | | | [place], [place] | | | | | | [address] | | | | | | [phone] | | | | | | | | | | | | Sergio Sanchez MD | | | | | | [address] | | | | | | [address] [place], | | | | | | [place] [address] | | | | | | [phone] | | | | | | | | | | | | Sierra Rizo, | | | | | | DO [address] | | | | | | [facility] | | | | | | [place], [place] | | | | | | [address] | | | | | | [phone] | | | | | | | | | | | | Lori Freeman MD | | | | | | [address] | | | | | | [facility], | | | | | | [place] [address] | | | | | | [phone] | | | | | | | | | | | | Radha Velarde MD | | | | | | [address] [place] | | | | | | [facility], | | | | | | [place] [address] | | | | | | [phone] | | | | | | | [...] Andrade MD - 03/15/2018 10:02 AM PDT [facility] Discharge Summary Discharging Provider: George Andrade MD Discharging Attending Physician: Radha Velarde MD PCP: Jamel Johnson NP Admission Date: 02/11/2018 Discharge Date: 03/15/2018 Hospital Stay: 32 day(s) Reason for Admission: Sarah Reeves is a 62 y.o. Femalewith HTN, HFpEF, T2DM, OLIVIA initially transferred from [facility] to MICU for acute hypoxic respiratory failure requiring intubation (02/07) secondary to me tapneumovirus PNA. Extubated 02/20, transferred out of ICU 02/22. Hospital course complicated by superimposed bacterial PNA, ARDS, and now persistent toxic metabolic encephalopathy of un known etiology. Principal Final Diagnosis: 1) *Encephalopathy Additional Diagnoses: 3) ARDS (adult respiratory distress syndrome) ([facility]) 4) Pneumonia due to human metapneumovirus (hMPV) 5) HTN (hypertension) 6) SVT (supraventricular tachycardia) ([facility]) 7) Severe obesity (BMI >= 40) ([facility]) 8) (HFpEF) heart failure with preserved ejection fraction ([facility]) 9) T2DM (type 2 diabetes mellitus) ([facility]) 10) Abnormal ventricular wall motion 11) Moderate protein-calorie malnutrition ([facility]) Resolved Hospital Problems 12) Leukocytosis 13) CKD [...] obtained from her who reported th at [place] for 1-2 months prior to her admission [...] wait for the results of the serum Normanna autoimmune encephalitis panel izabel or to starting any further medications. She was thus discharged to a SNF for further rehabil itation. -Follow up serum Normanna auto-immune encephalitis panel - drawn on 03/02 [...] <1, RBC 404, Protein 85, Glucose 114 Normanna Autoimmune Encephalopathy CSF Panel: Negative Imaging: Routine [...] noted bilaterally. 24 Hr EEG: (03/04/2018): This snf EEG is abnormal due to: 1. Mild [...] ce of malignancy. Outstanding or Pending Labs/Studies: Normanna Autoimmune Encephalopathy Serum Panel: Pending ([phone]; expect results 12-14 business days from 03/05) [...] wait for serum autoimmune encephalitis panel w [facility] is still pending. This will take weeks to come back. The neurology team at [facility] will fo llow up on this [...] Selected Specialties Address Phone Number Fax Number [facility] Selected Residential Facility [address] [place] [address] [facility] No service has been selected for the patient. Social Care Services No service has been selected for the patient. Follow Up: Future Appointments Department Dept Phone Center 02/11/2018 12:12 AM [facility] 14C [phone] Contact information for other follow-up providers JAMEL JOHNSON NP . Specialty: Nurse Practitioner Adult Health Contact information [facility] [address] [facility] [place] [id number] Contact information for after-discharge care Discharge Destination [facility] . Specialty: Residential Facility Contact information [address] [phone] Discharge Physical Exam: Last 24 hour min/max [...] still) Kassi Andrade MD Family Medicine, PGY-3 [facility] Pager # [phone] Associated attestation - Radha Velarde MD - 03/15/2018 10:50 AM PDTGeneral Medicine Team 2 Attending Note I have seen and examined Ms. Reeves and agree with discharge summary as documented by Dr. Andrade. Briefly, pt is a 62 y/o lady with HFpEF, HTN, DM II, OLIVIA transferred from [facility] to [facility] MICU with acute hypoxic respiratory failure secondary to metapneumovirus PNA with hospital course complicated by superimposed bacterial PNA, ARDS and toxic metabolic encephalopathy. She is medically stable for discharge to [facility] with Neurology follow- up as outpatient. RADHA VELARDE MD Pager - [phone] Industrial Order Clerkthermoforming machine operator Director, Clinical Hospitalist Service Clinical and Medicine Teaching Hospitalist Services [facility] I spent more than 25 minutes [id number] with the patient of which greater than [...] HTN, HFpEF, T2DM, OLIVIA initially transferred from [facility] to MICU for acute hypoxic respiratory failure requiring intubation (02/07) secondary to me tapneumovirus PNA. Extubated 02/20, transferred out of ICU 02/22. Hospital course complicated by superimposed bacterial PNA, ARDS, and now persistent toxic metabolic encephalopathy of un known etiology. Assessment and Plan Patients Hospital Problem List: Active Hospital Problems 1) Encephalopathy 3) ARDS (adult respiratory distress syndrome) ([facility]) 4) Pneumonia due to human metapneumovirus (hMPV) 5) HTN (hypertension) 6) SVT (supraventricular tachycardia) ([facility]) 7) Severe obesity (BMI >= 40) ([facility]) 8) (HFpEF) heart failure with preserved ejection fraction ([facility]) 9) T2DM (type 2 diabetes mellitus) ([facility]) 10) Abnormal ventricular wall motion 11) Moderate [...] thus far. -baby aspirin -continue atorvastin 80mg -[id number] -carvedilol HTN(hypertension): -continue carvedilol, lisinopril CKD (chronic [...] Primary Surrogate Decision Maker Latanya Gunter Sister [phone] Secondary Surrogate Decision Maker Mr. Reeves Dispo: likely tomorrow to SNF Seen and evaluated with attending Radha Velarde MD who agrees with my assessment and plan u nless otherwise stated. Kassi Andrade MD Family Medicine, PGY-3 [facility] Pager # [phone] Radha Li MD - 01/2018 9:35 AM [...] DM II, OLIVIA transferred from OSH to [facility] MICU with acute hypoxic respiratory failure [...] SNF tomorrow. RADHA VELARDE MD Pager - [phone] Industrial Order Clerkthermoforming machine operator Director, Clinical Hospitalist Service Clinical and Medicine Teaching Hospitalist Services [facility] I have spent more than 35 minutes with the patient of which more than 50% was spent residential child care counselor ing regarding toxic metabolic encephalopathy. George [...] 129 > 106 Quant gold- negative 03/03 Normanna-ESN 1 serumautoimmune encephalitis panel - [facility] CSF[facility]immune [facility]itis panel - villarreal negative [...] HTN, HFpEF, T2DM, OLIVIA initially transferred from [facility] to MICU for acute hypoxic respiratory failure [...] get neurology fol low up- patient from [facility], Sister lives in [facility]) -f/u serum encephalitis panel #T2DM: Endotool discontinued [...] thus far. -baby aspirin -continue atorvastin 80mg -[id number] -carvedilol HTN(hypertension): -continue carvedilol, lisinopril CKD (chronic [...] Decision Maker Primary Surrogate Decision Maker Latanya Gunetr Sister [phone] Secondary Surrogate Decision Maker Mr. Reeves Dispo: possibly by Sunday - pending Neuro and Neuroimmunology plan Seen and evaluated with attending Radha Velarde MD who agrees with my assessment and plan u nless otherwise stated. Kassi Andrade MD Family Medicine, PGY-3 [facility] Pager # [phone] Radha Li MD - 12/2017 9:46 AM [...] DM II, OLIVIA transferred from OSH to [facility] MICU with acute hypoxic respiratory failure [...] Neuroimmunology involvement. RADHA VELARDE MD Pager - [phone] Industrial Order Clerkthermoforming machine operator Director, Clinical Hospitalist Service Clinical and Medicine Teaching Hospitalist Services [facility] I have spent more than 35 minutes with the patient of which more than 50% was spent residential child care counselor ing regarding autoimmune encephalitis. aMarvin england [...] depth eschar present on the R gl muscogee that is lifting at the edges. There [...] > 255 Quant gold - in process [facility] 1 serum autoimmune encephalitis panel - in process [facility] 1 CSF autoimmune encephalitis panel - villarreal negative Meningitis/Encephalitis PCR - negative Imaging Interpretation: No new Brief Summary: Sarah Reeves is a 62 y.o. Femalewith HTN, HFpEF, T2DM, OLIVIA initially transferred from [facility] to [facility]U for acute hypoxic respiratory failure [...] to get neurology follow up- patient from [facility], Sister henny ledezma in [facility]) -PET scan today -f/u serum encephalitis panel [...] thus far. -baby aspirin -continue atorvastin 80mg -[id number] -carvedilol HTN(hypertension): -continue carvedilol, lisinopril CKD (chronic [...] Primary Surrogate Decision Maker Latanya Gunter Sister [phone] Secondary Surrogate Decision Maker Mr. Reeves Dispo: pending Neurology, rituximab plan Seen and evaluated with attending Radha Velarde MD who agrees with my assessment and plan u nless otherwise stated. Kassi Andrade MD Family Medicine, PGY-3 [facility] Pager # [phone] adha Velarde MD - 11/2017 9:57 AM PDT GENERAL INTERNAL MEDICINE FACULTY PROGRESS NOTE - GM 2 Attending Physician: Rdaha Velarde MD Hospital Day: 29 PCP: Jamel [...] DM II, OLIVIA transferred from OSH to [facility] MICU with acute hypoxic respiratory failure [...] Neurology involvement. RADHA VELARDE MD Pager - [phone] Industrial Order Clerkthermoforming machine operator Director, Clinical Hospitalist Service Clinical and Medicine Teaching Hospitalist Services [facility] I have spent more than 35 minutes with the patient of which more than 50% was spent residential child care counselor ing regarding autoimmune encephalitis. George Schilling [...] Date 03/11/18 0700 - 03/12/18 0659 Shift [id number] [id number] 24 Hour Total I N T A [...] HTN, HFpEF, T2DM, OLIVIA initially transferred from [facility] to MICU for acute hypoxic respiratory failure [...] to get neurology follow up- patient from [facility], Sister [place]) [...] thus far. -baby aspirin -continue atorvastin 80mg -[id number] -carvedilol HTN(hypertension): -continue carvedilol, lisinopril CKD (chronic [...] Primary Surrogate Decision Maker Latanya Gunter Sister [phone] Secondary Surrogate Decision Maker Mr. Reeves Dispo: possibly end of this week - pending rituximab plan Seen and evaluated with attending Radha Velarde MD who agrees with my assessment and plan u nless otherwise stated. Kassi Andrade MD Family Medicine, PGY-3 [facility] Pager # [phone] Radha Li MD - 10:40 AM PDT [...] DM II, OLIVIA transferred from OSH to [facility] MICU with acute hypoxic respiratory failure secondary to metapneumovirus PNA with hospital cours e complicated by superimposed bacterial PNA, ARDS and toxic metabolic encephalopathy seconda ry to autoimmune encephalitis. Finished course of IVIG yesterday. Plan for PET tomorrow at 10 am. Appreciate Neurology inv olvement. RADHA VELARDE MD Pager - [phone] Industrial Order Clerkthermoforming machine operator Director, Clinical Hospitalist Service Clinical and Medicine Teaching Hospitalist Services [facility] I have spent more than 35 minutes with the patient of which more than 50% was spent residential child care counselor ing regarding autoimmune encephalitis. Lori Lowe [...] Symptoms: Latanya at bedside, has questions regarding snf plan and placement Sarah minimally interactive, responsive [...] HTN, HFpEF, T2DM, OLIVIA initially transferred from [facility] to MICU for acute hypoxic respiratory failure [...] on IVIG. Plan is to initiate more crime victim specialist rituxan therapy. Wo rkup for a malignant [...] thus far. -baby aspirin -continue atorvastin 80mg -[id number] -carvedilol HTN(hypertension): -continue carvedilol, lisinopril CKD (chronic [...] Surrogate Decision Maker Primary Surrogate Decision Maker Latnaya Gunter Sister [phone] Secondary Surrogate Decision Maker Mr. Reeves Dispo: possibly mid to late next week pending rituximab plan. Latanya [place] or closer to [place] ([place]) but wherever would be best for her neurologic c are trumps her preferences. (e.x. She would be willing to drive to [place] if that is what she needs). Will discuss with CM. Seen and evaluated with attending Lori Freeman MD who agrees with my assessment and plan unl ess otherwise stated. Kassi Andrade MD Family Medicine, PGY-3 [facility] Pager # [phone] Associated attestation - Lori Freeman MD - [...] of HBV reactivation, we recommend that health career law clerk: Screen all patients for HBV infection before [...] is day 3/5) - Follow up with [facility] on Sunday regarding paraneoplastic panel - F/U quantiferon test - Consult hepatology regarding use of Rituximab #Diet: NG tubes feeds at night, Diabetic diet during the day #DVT Ppx: Lovenox #Dispo: Pending IVIG course This patient has been seen and staffed with Dr. Fraire, attending neurologist, who agree s with the above assessment and plan. Barb Katelyn Marta Tam MD Pager #[phone] Associated attestation - Ramonita Tam MD - 03/11/2018 12:52 PM PDTI agree with [facility] medical student note. Please see my and my attending's note from this date for any update s or changes to the assessment and plan. Ramonita Tam Pager #[phone] Lori Freeman MD - 03/08/2018 11:56 AM PDTFormatting of this note might be different from e original. ATTENDING 2 PROGRESS NOTE TODAY'S DATE: 03/08/2018 (HOSPITAL DAY 25) I personally interviewed the patient, performed the marcano elements of the physical examinati on, and have noted my assessment and plan. This serves as the note of the day for the 2 t [facility] 24 Hour Events Pt continues to [...] on IVIG. Plan is to initiate more crime victim specialist rituxan therapy. Wo rkup for a malignant [...] after completion of IVIG; pt will need snf close follow up with Neurology. Pt from [place] so will ask CM to work on [...] ophthalmic ointment Both Eye s PRN Van aPlma MD PE: Constitutional: Elderly obese woman, lying [...] assessment and plan. Barb Tam MD Pager #[phone] Associated attestation - Ramonita Tam MD - 03/07/2018 2:03 PM PDTI agree with medical student note. Please see my and my attending's note from this date for any updates or subramanian es to the assessment and plan. Ramonita Tam Pager #[phone] Lori Freeman MD - 03/06/2018 10:52 AM [...] assessment and plan. Barb Tam MD Pager #[phone] Associated attestation - Ramonita Tam MD - 03/06/2018 5:56 PM PDTI agree with [facility] medical student note. Please see my and my attending's note from this date for any update s or changes to the assessment and plan. Ramonita Tam Pager #[phone] Barb Lozano - 03/05/2018 2:33 PM PDT [...] abscess or mass. EEG 03/04- IMPRESSION This snf EEG is abnormal due to: 1. Mild [...] assessment and plan. Barb Tam MD Pager #[phone] Associated attestation - Ramonita Tam MD - 03/06/2018 5:55 PM PDTI agree with [facility] medical student note. Please see my and my attending's note from this date for any update s or changes to the assessment and plan. Ramonita Tam Pager #[phone] Lori Freeman MD - 03/05/2018 5:32 AM [...] when asked but understood she was at [facility]. Wants to eat pizza. Worked with [...] lab) Pneumonia ARDS (adult respiratory distress syndrome) ([facility]) Pneumonia due to human metapneumovirus (hMPV) Completed [...] Chronic heart failure with preserved ejection fraction ([facility]) Regional wall movement abnormality -baby aspirin -statin [...] Chronic Issues #Severe obesity (BMI >= 40) ([facility]) Lori Freeman MD Juana Patton MD - 5:59 PM PDTI received a page from the on-call EEG reader that the EEG shows mildly diffuse slowing but no epileptiform or seizure activity noted. Juana Jacinto MD PGY2 Neurology Pager [phone] signed by Juana Jacinto MD at 03/04/2018 6:00 PM PDTStair Felicita ly - 03/04/2018 4:54 PM PDTPatient is connected to [facility] with MRI/CT compatible jennifer ds. Please page #[phone] (all hours) with questions or to discontinue [...] pneumonia. Will obtain records from ED in [place] since pt had presented at [facility] 3-5 times there and see if [...] Chronic Issues #Severe obesity (BMI >= 40) ([facility]) Lori Freeman MD Barb Gonzalez - 02/11 [...] assessment and plan. Barb Tam MD Pager #[phone] Associated attestation - Ramonita Tam MD - 03/04/2018 4:32 PM PDTI agree with [facility] medical student note. Please see my and my attending's note from this date for any update s or changes to the assessment and plan. Ramonita Tam Pager #[phone] George Andrade MD - 03/03/2018 11:13 AM [...] changes 3) ARDS (adult respiratory distress syndrome) ([facility]) 4) Pneumonia due to human metapneumovirus (hMPV) [...] - creatinine stable. 8) SVT (supraventricular tachycardia) ([facility]) - resolved. Had episodes of SVT at OSH and was started on metoprolol. Holding home metoprolol 25mg BID currently. Continue to monitor. 9) Severe obesity (BMI >= 40) ([facility]) - stable. 10) (HFpEF) heart failure with preserved ejection fraction ([facility]) 12) Abnormal ventricular wall motion ECHO 02/11/18 with regional wall motion abnormality. Does not appear significantly volume o verloaded. -baby aspirin -continue atorvastatin 80mg once daily -resume lisinopril 10mg 11) T2DM (type 2 diabetes mellitus) ([facility]) -NPH adjusted to 12 to 15u q8H + SSI -adjust insulin as necessary Diet: tube feeding 55ml/hr - high protein with fiver 1kcal/ml Prophylaxis: enoxaparin Code: full Surrogate Decision Maker Primary Surrogate Decision Maker Latanya Gunter Sister [phone] Secondary Surrogate Decision Maker Mr. Reeves Dispo: pending placement at this point Seen and evaluated with attending Lori Freeman MD who agrees with my assessment and plan unl ess otherwise stated. Kassi Andrade MD Family Medicine, PGY-3 [facility] Pager # [phone] Associated attestation - Lori Freeman MD - [...] encephalopathy 2) ARDS (adult respiratory distress syndrome) ([facility]) 3) Pneumonia due to human metapneumovirus (hMPV) 4) Leukocytosis 5) HTN (hypertension) 6) CKD (chronic kidney disease) 7) SVT (supraventricular tachycardia) ([facility]) 8) Severe obesity (BMI >= 40) ([facility]) 9) (HFpEF) heart failure with preserved ejection fraction ([facility]) 10) T2DM (type 2 diabetes mellitus) ([facility]) 11) Abnormal ventricular wall motion Assessment and [...] pending Pneumonia ARDS (adult respiratory distress syndrome) ([facility]) Pneumonia due to human metapneumovirus (hMPV) Completed [...] Chronic heart failure with preserved ejection fraction ([facility]) Regional wall movement abnormality -baby aspirin -statin [...] Chronic Issues #Severe obesity (BMI >= 40) ([facility]) Lori Andrade, George Zepeda MD - 03/02/2018 [...] options 3) ARDS (adult respiratory distress syndrome) ([facility]) 4) Pneumonia due to human metapneumovirus (hMPV) [...] - creatinine stable. 8) SVT (supraventricular tachycardia) ([facility]) - resolved. Had episodes of SVT at OSH and was started on metoprolol. Holding home metoprolol 25mg BID currently. Continue to monitor. 9) Severe obesity (BMI >= 40) ([facility]) - stable. 10) (HFpEF) heart failure with preserved ejection fraction ([facility]) 12) Abnormal ventricular wall motion ECHO 02/11/18 with regional wall motion abnormality. Does not appear significantly volume o verloaded. -baby aspirin -continue atorvastatin 80mg once daily -SARAVANAN on hold for now 11) T2DM (type 2 diabetes mellitus) ([facility]) -continue NPH 12u q8H + SSI -adjust insulin as necessary Diet: tube feeding 55ml/hr - high protein with fiver 1kcal/ml Prophylaxis: enoxaparin Code: full Surrogate Decision Maker Primary Surrogate Decision Maker Latanya Gunter Sister [phone] Secondary Surrogate Decision Maker Mr. Reeves Dispo: pending further work-up of encephalopathy. If no additional work up after Neurology recs today, will start discharge planning. Seen and evaluated with attending Lori Freeman MD who agrees with my assessment and plan unl ess otherwise stated. Kassi Andrade MD Family Medicine, PGY-3 [facility] Pager # [phone] Associated attestation - Lori Freeman MD - 03/02/2018 1:58 PM [facility] MEDICINE ATTENDIN Liang PROGRESS NOTE ADMIT DATE: [...] encephalopathy 2) ARDS (adult respiratory distress syndrome) ([facility]) 3) Pneumonia due to human metapneumovirus (hMPV) 4) Leukocytosis 5) HTN (hypertension) 6) CKD (chronic kidney disease) 7) SVT (supraventricular tachycardia) ([facility]) 8) Severe obesity (BMI >= 40) ([facility]) 9) (HFpEF) heart failure with preserved ejection fraction ([facility]) 10) T2DM (type 2 diabetes mellitus) ([facility] [facility]) 11) Abnormal ventricular wall motion Assessment and [...] a reason. Pt may req uire more crime victim specialist monitoring to see if encephalopathy clears. No [...] (HCC) 10) T2DM (type 2 diabetes mellitus) ([facility]) 11) Abnormal ventricular wall motion Assessment and [...] head Pneumonia ARDS (adult respiratory distress syndrome) ([facility]) Pneumonia due to human metapneumovirus (hMPV) Completed [...] Chronic Issues #Severe obesity (BMI >= 40) ([facility]) No DVT prophy due to changing schedule [...] encephalopathy 2) ARDS (adult respiratory distress syndrome) ([facility]) 3) Pneumonia due to human metapneumovirus (hMPV) 4) Leukocytosis 5) HTN (hypertension) 6) CKD (chronic kidney disease) 7) SVT (supraventricular tachycardia) ([facility]) 8) Severe obesity (BMI >= 40) ([facility]) 9) (HFpEF) heart failure with preserved ejection fraction ([facility]) 10) T2DM (type 2 diabetes mellitus) ([facility]) 11) Abnormal ventricular wall motion Assessment and [...] today Pneumonia ARDS (adult respiratory distress syndrome) ([facility]) Pneumonia due to human metapneumovirus (hMPV) Completed [...] Chronic heart failure with preserved ejection fraction ([facility]) Regional wall movement abnormality -baby aspirin -statin increased from 10->80mg atorva daily -SARAVANAN/BB on hold for now as we monitor BP which has trended down sli ghtly HTN(hypertension): Challening fluid status exam, seems to be euvolemic today but difficult exam -amlodipine 10mg daily -Carvedilol 18.75->25mg BID CKD (chronic kidney disease): Cr peaked at 1.56, now down to baseline. BUN stable SVT (supraventricular tachycardia) ([facility]): Transitioned form metop to carvedilol at OSH with no persistent SVT in house T2DM: Home regimen glargine 75+ 30u lispro with meals. On NPH TID while on tube feeds -NPH to be reinitiated after procedure-12 units but will need incre ase likely given hyperglycemia -SSI Stable Chronic Issues #Severe obesity (BMI >= 40) ([facility]) Lori Freeman MD Lori Lowe MD - [...] (chronic kidney disease) 7) SVT (supraventricular tachycardia) ([facility]) 8) Severe obesity (BMI >= 40) ([facility]) 9) (HFpEF) heart failure with preserved ejection fraction ([facility]) 10) T2DM (type 2 diabetes mellitus) ([facility]) 11) Abnormal ventricular wall motion Assessment and [...] to baseline. BUN stable SVT (supraventricular tachycardia) ([facility]): Transitioned form metop to carvedilol at OSH with no persistent SVT in house T2DM: Home regimen glargine 75+ 30u lispro with meals. On NPH TID while on tube feeds -NPH to be reinitiated after procedure-19 units but will need incre ase likely given hyperglycemia -SSI Stable Chronic Issues #Severe obesity (BMI >= 40) ([facility]) Lori Freeman MD Fidencio Plasencia MD - [...] Date 02/26/18 0700 - 02/27/18 0659 Shift 6494-0499 5197-6351 5276-6211 24 Hour Total I N T A K E I.V. 10 10 Other 490 034 4552 Shift Total 170 543 8226 O U T P U T Shift [...] Issues # Severe obesity (BMI >= 40) ([facility]) Diet: Tube feeds (hold at midnight) Code: Full DVT: Holding for LP Dispo: In house likely through Sunday pending resolution of encephalopathy. Fidencio Arreaga MD/MPH PGY-3, Family Medicine Pager:[phone] Associated attestation - Lori Freeman MD - [...] encephalopathy 2) ARDS (adult respiratory distress syndrome) ([facility]) 3) Pneumonia due to human metapneumovirus (hMPV) 4) Leukocytosis 5) HTN (hypertension) 6) CKD (chronic kidney disease) 7) SVT (supraventricular tachycardia) ([facility]) 8) Severe obesity (BMI >= 40) ([facility]) 9) (HFpEF) heart failure with preserved ejection fraction ([facility]) 10) T2DM (type 2 diabetes mellitus) ([facility]) 11) Abnormal ventricular wall motion Assessment and [...] Pneumonia # ARDS (adult respiratory distress syndrome) ([facility]) # Pneumonia due to human metapneumovirus (hMPV) [...] now down trending. # SVT (supraventricular tachycardia) ([facility]): Transitioned form metop to carvedilol at OSH [...] clear. Fidencio Arreaga MD/MPH PGY-3, Family Medicine Pager:[phone] Associated attestation - Lori Freeman MD - [...] ICU 8) Severe obesity (BMI >= 40) ([facility]) 9) (HFpEF) heart failure with preserved ejection fraction-increased carvedilol, continued amlodipine; lisinopril and lasix on hold but will restart tomorrow if Cr remains normal 10) T2DM (type 2 diabetes mellitus) (HCC) 11) Abnormal ventricular wall motion Sierra Lynne MD, DO - 02/24/2018 11:42 AM PDT GM2 ATTENDING PROGRESS NOTE PATIENT'S NAME/MRN: Sarah Reeves/[id number] HOSPITAL DAY: #13 24-HOUR EVENTS: -No acute [...] (NDX) ointment (compound), , topical, TID, [place] , polyethylene glycol (MIRALAX) packet 34 g, 34 g, feeding tube, TID PRN, Leif Matamoros MD probiotic kefir (KEYONNA'S KEFIR), , feeding tube, TID, [place], DO QUEtiapine (SEROQUEL) tablet 50 mg, 50 mg, oral, QPM, [place], senna (SENOKOT) liquid 17.6 mg, 10 mL, [...] who was initially transferred from OSH to [facility] MICU 02/10 for further management of [...] Dobbhoff tube for tube feeds/enteral access -Appreciate SEAL DELIVERY VEHICLE OFFICER continuing to reevaluate swallow, transition to PO when safe per SEAL DELIVERY VEHICLE OFFICER -Scheduled voids with turning q2 hours BUN [...] care for the patient. Sierra Rizo DO Industrial Order Clerkthermoforming machine operator Clinical Hospitalist and Medicine Teaching Service Division of Hospital Medicine [facility] Pager [phone] [facility] DEPARTMENT: Hosp- [id number] Place of Service: - [id number] CSN: [id number] Modifiers:GC Resident Involved: No Suggested CPT: 41244 Subsequent Visit Detailed/High complexity 35 min Rasheeda Ocampo DO - 02/23/2018 7:37 AM PDT . GM2 ATTENDING PROGRESS NOTE PATIENT'S NAME/MRN: Sarah Reeves/[id number] HOSPITAL DAY: #12 24-HOUR EVENTS: -No acute [...] who was initially transferred from OSH to [facility] MICU 11/2017 for further management of [...] Dobbhoff tube for tube feeds/enteral access -Appreciate SEAL DELIVERY VEHICLE OFFICER continuing to reevaluate swallow, transition to PO when safe per SEAL DELIVERY VEHICLE OFFICER -Scheduled voids with turning q2 hours BUN [...] pending improvement in encephalopathy, anticipate discharge to [facility] likely mid- week, ~02/27 I spent 40 minutes in the care of this patient while on the medical unit today of which gre ater than 50% was spent counseling and coordinating care for the patient. Sierra Rizo DO Industrial Order Clerkthermoforming machine operator Clinical Hospitalist and Medicine Teaching Service Division of Hospital Medicine [facility] Pager [phone] [facility] DEPARTMENT: Hosp- [id number] Place of Service: - CSN: [id number] Modifiers:GC Resident Involved: No Suggested CPT: 75873 Subsequent Visit Detailed/High complexity 35 min idencio [...] Date 02/22/18 0700 - 02/23/18 0659 Shift 3068-4077 2627-6723 0586-4721 24 Hour Total I N T A [...] to it. -AM BMP #SVT (supraventricular tachycardia) ([facility]): At OSH - none here. Switched from metop -> carv edilol for improved BP control. Stable Chronic Medical Issues # Severe obesity (BMI >= 40) (HCC) # Fibromyalgia: gabapentin 300TID -> 100 TID # Depression: Sertraline Diet: NPO DVT: Lovenox Code: Full Dispo: Expect prolonged hospital stay pending clearing of encephalopathy. WIll likely need oxygen at discharge. Fidencio Arreaga MD/MPH PGY-3, Family Medicine Pager:[phone] Associated attestation - Sierra Rizo DO - 02/22/2018 10:14 PM PDTI saw and evaluat ed the patient. I agree with the findings and the plan of care as documented in the resident s note. Please see my attestation from note on 02/21 for updates for today, additions, exceptions. Sierra Rizo DO Industrial Order Clerkthermoforming machine operator Clinical Hospitalist and Medicine Teaching Service Division of [facility] Medicine Pager [phone] Sergio Sanchez MD - 02/21/2018 10:49 AM [...] fo care starting today. SERGIO SANCHEZ MD [facility] [address] [place] [address] I spent 31 min in [...] Gross for the last 10 days Intake 77920.87 ml Output 25903 ml Net since Admission -05841.13 ml Mechanical Ventilation Wentworth body weight: 59.6 kg (131 lb 7.2 [...] 64 (L) 02/14/2018 HCO3 30 (H) 02/14/2018 Q1HQTSBN 94.2 02/14/2018 FIO2 0.40 02/13/2018 FGP7GYF8 158 (L) 02/13/2018 Lab Results Component Value Date VBGEXCESS 1.6 02/21/2018 VBGPH 7.38 02/21/2018 VBGPCO2 46 02/21/2018 VBGPO2 49 02/21/2018 VBGHCO3 27 02/21/2018 Up to Last 5 ABGs in 72 hours: No results for input(s): PH, PCO2, PO2, HCO3, PWBOZ5JYR, N9EPHEWD, L8YVTPGBD, FIO2 in the l ast 72 hours. [...] 29 (H) 02/13/2018 HCO3 29 (H) 02/12/2018 G0RYUVAJ 94.2 02/14/2018 A4WIZRXB 93.2 02/13/2018 J2QAYZBT 96.3 02/13/2018 I0NDBNPX 95.3 02/13/2018 C2PXSPZR 94.0 02/13/2018 X0SVUQCG 91.6 (L) 02/12/2018 FIO2 0.40 02/13/2018 FIO2 0.40 02/13/2018 FIO2 0.50 02/13/2018 FIO2 0.50 02/13/2018 FIO2 0.60 02/12/2018 FIO2 0.40 02/12/2018 BGF8UJJ1 158 (L) 02/13/2018 GBB3CKA4 198 (L) 02/13/2018 XAR4IXY4 148 (L) 02/13/2018 AKT2ZGD5 134 (L) 02/13/2018 XYK6BDV6 108 (L) 02/12/2018 TNW0GHS1 160 (L) 02/12/2018 Recent Labs 02/11/18 0036 [...] for: APTT, FIBRINOGEN No results found for: [id number] No results found for: URICACID No results found for: FREET4, TSH, TPOAB, THYROGLOB, THYROGLOBAB, C8VAYMT No results found for: IRON, IRONBINDCAP, SATTRANSFERR, [...] Chest 1 View Result Date: 02/15/2018 EXAM: OK CHEST 1 VIEW 02/15/18 06:12:20 HISTORY: Worsening [...] Chest 1 View Result Date: 02/14/2018 EXAM: OK CHEST 1 VIEW HISTORY: Fever of unknown origin. COMPARISON: 02/13/2018. FINDINGS: Endotracheal tube tip terminates 4 cm above the jim. Enteric tube courses below the diap hragm, out of the beztd-ic-mynr. Cardiomediastinal contour is stable. Increased, dense retro [...] Chest 1 View Result Date: 02/12/2018 STUDY: OK CHEST 1 VIEW HISTORY: Endotracheal tube placement. COMPARISON: February 11, 2018 FINDINGS: The patient is imaged in prone position, limiting assessment of the lungs. The endotracheal tube terminates at the level of the clavicles, approximately 6.7 cm above the jim. The t ransesophageal sump tube terminates off the wrorq-rj-jlbv. Lung opacities are mostly obscure d. IMPRESSION: [...] enteric tube trave ls caudally beyond the iiduq-gv-gpst. Low lung volumes. Unchanged appearance of the [...] MD - 0 02/21/2018 6:03 AM PDT [facility] MEDICAL ICU - PROGRESS NOTE Hospital [...] Mandatory 350 ml | Spontaneous 470 ml Wentworth BW: 59.6 kg RR: 22 bpm Minute [...] Gross for the last 10 days Intake 45663.1 ml Output 07377 ml Net since Admission -33097.9 ml BMI: 57.5 Weights 156 kg (343 [...] and vancomyci n added 02/10 at OSH HYPERBARIC TECH. Pt already with poor baseline pulm function [...] Nutrition #OG tube, Removed 02/20 - F/u SEAL DELIVERY VEHICLE OFFICER consult on 02/21 prior to re-starting diet. [...] not likely to happen, already communicated with occupational health physiotherapist, Leodan to possibly have bed coordinator start looking for beds at [facility] (pt lives in [place], so this is closest [facility] affiliation to that area). RESOLVED/CHRONIC ISSUES: #Non-oligouric NANCY on CKD stage III Baseline Cr 1.3. Etiology: pre-renal in setting of aggressive diuresis from 02/11-02/12. -IV diuresis 02/17. SCr 1.0 -> 1.14. #HLD - Continue atorvastatin 10 mg QDAY. #Depression - Continue sertraline 100 mg QDAY Consultants:Nutrition Feeding: NPO. Awaiting SEAL DELIVERY VEHICLE OFFICER eval 02/21 prior to starting diet. Analgesia: [...] Primary Surrogate Decision Maker Latanya Gunter Sister [phone] Secondary Surrogate Decision Maker Mr. Reeves This [...] results for input(s): PH, PCO2, PO2, HCO3, CKHAC8CQN, X9SXNAHE, F9XPNBECU, FIO2 in the l ast 72 hours. [...] Code status/Family: Full code. SERGIO SANCHEZ MD [facility] [address] [place] [address] I spent 32 min in [...] Gross for the last 9 days Intake 03955.47 ml Output 24994 ml Net since Admission -26233.53 ml Mechanical Ventilation Wentworth body weight: 59.6 kg (131 lb 7.2 [...] 64 (L) 02/14/2018 HCO3 30 (H) 02/14/2018 V0RBVPYM 94.2 02/14/2018 FIO2 0.40 02/13/2018 OUZ9YUO9 158 (L) 02/13/2018 Lab Results Component Value Date VBGEXCESS 0.4 02/15/2018 VBGPH 7.34 (L) 02/15/2018 VBGPCO2 49 02/15/2018 VBGPO2 61 (H) 02/15/2018 VBGHCO3 26 02/15/2018 Up to Last 5 ABGs in 72 hours: No results for input(s): PH, PCO2, PO2, HCO3, EJWVK1OYQ, A2UBBNZS, A4YDJAPDK, FIO2 in the l ast 72 hours. [...] 29 (H) 02/13/2018 HCO3 29 (H) 02/12/2018 H3CKVPBD 94.2 02/14/2018 I2PKFTFH 93.2 02/13/2018 A7LOLGES 96.3 02/13/2018 M8FTRAED 95.3 02/13/2018 E5YNSXFK 94.0 02/13/2018 P2WOBVAJ 91.6 (L) 02/12/2018 FIO2 0.40 02/13/2018 FIO2 0.40 02/13/2018 FIO2 0.50 02/13/2018 FIO2 0.50 02/13/2018 FIO2 0.60 02/12/2018 FIO2 0.40 02/12/2018 OQE6DLP7 158 (L) 02/13/2018 XQV8VHQ8 198 (L) 02/13/2018 ZBY9VIO2 148 (L) 02/13/2018 ZLL8MRD5 134 (L) 02/13/2018 MMF9MFZ6 108 (L) 02/12/2018 UMO0FKK7 160 (L) 02/12/2018 Recent Labs 02/11/18 0036 [...] for: APTT, FIBRINOGEN No results found for: TYTG52HAATFJ No results found for: URICACID No results found for: FREET4, TSH, TPOAB, THYROGLOB, THYROGLOBAB, H9IYHCH No results found for: IRON, IRONBINDCAP, SATTRANSFERR, [...] Chest 1 View Result Date: 02/15/2018 EXAM: OK CHEST 1 VIEW 04/06/18 06:12:20 HISTORY: Worsening [...] Chest 1 View Result Date: 02/14/2018 EXAM: OK CHEST 1 VIEW HISTORY: Fever of unknown origin. COMPARISON: 02/13/2018. FINDINGS: Endotracheal tube tip terminates 4 cm above the jim. Enteric tube courses below the diap hragm, out of the nfkfp-is-birl. Cardiomediastinal contour is stable. Increased, dense retro [...] Chest 1 View Result Date: 02/12/2018 STUDY: OK CHEST 1 VIEW HISTORY: Endotracheal tube placement. COMPARISON: February 11, 2018 FINDINGS: The patient is imaged in prone position, limiting assessment of the lungs. The endotracheal tube terminates at the level of the clavicles, approximately 6.7 cm above the jim. The t ransesophageal sump tube terminates off the peeyx-al-szjd. Lung opacities are mostly obscure d. IMPRESSION: [...] enteric tube trave ls caudally beyond the csvsz-rr-qkmh. Low lung volumes. Unchanged appearance of the [...] MD - 0 02/20/2018 6:07 AM PDT [facility] MEDICAL ICU - PROGRESS NOTE Hospital [...] Mandatory 350 ml | Spontaneous 370 ml [place]worth BW: 59.6 kg RR: 20 bpm Minute [...] Gross for the last 9 days Intake 72541.86 ml Output 42461 ml Net since Admission -22434.14 ml BMI: 57.5 Weights 156 kg (343 [...] and vancomyci n added 02/10 at OSH HYPERBARIC TECH. Pt already with poor baseline pulm function [...] Primary Surrogate Decision Maker Latanya Gunter Sister [phone] Secondary Surrogate Decision Maker Mr. Reeves This [...] Will try physical therapy. SERGIO SANCHEZ MD [facility] [address] [place] [address] I spent 31 min in [...] Gross for the last 8 days Intake 55358.89 ml Output 72325 ml Net since Admission -60126.11 ml Mechanical Ventilation Wentworth body weight: 59.6 kg (131 lb 7.2 [...] 64 (L) 02/14/2018 HCO3 30 (H) 02/14/2018 J1ILOBPZ 94.2 02/14/2018 FIO2 0.40 02/13/2018 FIB7GOI9 158 (L) 02/13/2018 Lab Results Component Value Date VBGEXCESS 0.4 02/15/2018 VBGPH 7.34 (L) 02/15/2018 VBGPCO2 49 02/15/2018 VBGPO2 61 (H) 02/15/2018 VBGHCO3 26 02/15/2018 Up to Last 5 ABGs in 72 hours: No results for input(s): PH, PCO2, PO2, HCO3, HYFNT3MGA, V6PETSLB, H7NBIZGVR, FIO2 in the l ast 72 hours. [...] 29 (H) 02/13/2018 HCO3 29 (H) 02/12/2018 W2ECBTWR 94.2 02/14/2018 L2ZWDDDQ 93.2 02/13/2018 S5MHYSNK 96.3 02/13/2018 W4LEAITU 95.3 02/13/2018 I2XPMTNW 94.0 02/13/2018 R8GEVIMK 91.6 (L) 02/12/2018 FIO2 0.40 02/13/2018 FIO2 0.40 02/13/2018 FIO2 0.50 02/13/2018 FIO2 0.50 02/13/2018 FIO2 0.60 02/12/2018 FIO2 0.40 02/12/2018 LLR6UTM4 158 (L) 02/13/2018 OWU8IJB1 198 (L) 02/13/2018 UGF2STI8 148 (L) 02/13/2018 FOU7PNI2 134 (L) 02/13/2018 YYM1WBC6 108 (L) 02/12/2018 HJR2XOX2 160 (L) 02/12/2018 Recent Labs 02/11/18 0036 [...] for: APTT, FIBRINOGEN No results found for: OWXV92NMPDER No results found for: URICACID No results found for: FREET4, TSH, TPOAB, THYROGLOB, THYROGLOBAB, W8MEOOA No results found for: IRON, IRONBINDCAP, SATTRANSFERR, [...] Chest 1 View Result Date: 02/15/2018 EXAM: OK CHEST 1 VIEW 02/15/18 06:12:20 HISTORY: Worsening [...] Chest 1 View Result Date: 02/14/2018 EXAM: OK CHEST 1 VIEW HISTORY: Fever of unknown origin. COMPARISON: 02/13/2018. FINDINGS: Endotracheal tube tip terminates 4 cm above the jim. Enteric tube courses below the diap hragm, out of the riwug-tn-atcc. Cardiomediastinal contour is stable. Increased, dense retro [...] Chest 1 View Result Date: 02/12/2018 STUDY: OK CHEST 1 VIEW HISTORY: Endotracheal tube placement. COMPARISON: February 11, 2018 FINDINGS: The patient is imaged in prone position, limiting assessment of the lungs. The endotracheal tube terminates at the level of the clavicles, approximately 6.7 cm above the jim. The t ransesophageal sump tube terminates off the uuqzz-mx-gwcv. Lung opacities are mostly obscure d. IMPRESSION: [...] enteric tube trave ls caudally beyond the fqvoi-ax-ggtb. Low lung volumes. Unchanged appearance of the [...] MD - 0 02/19/2018 6:01 AM PDT [facility] MEDICAL ICU - PROGRESS NOTE Hospital [...] Mandatory 350 ml | Spontaneous 41 ml [place]worth BW: 59.6 kg RR: 26 bpm Minute [...] Gross for the last 8 days Intake 33385.57 ml Output 65584 ml Net since Admission -02292.43 ml BMI: 57.5 Weights 156 kg (343 [...] and vancomyci n added 02/10 at OSH HYPERBARIC TECH. Pt already with poor baseline pulm function [...] Primary Surrogate Decision Maker Latanya Gunter Sister [phone] Secondary Surrogate Decision Maker Mr. Lala Mendoza This patient was staffed with Dr. Sancehz, attending physician. VAN PALMA MD Template created [...] on vent, day 7 ICU stay at [facility]. PSV wean, down to 8/5 now [...] results for input(s): PH, PCO2, PO2, HCO3, UCYJU0GJX, Z1KTMTRC, I2ABNWDZQ, FIO2 in the l ast 72 hours. [...] Renal / Electrolytes: I/O goal ~ negative 3223-6046 ml, Hypernatremia improving. Hem-Onc: Leukocytosis resolving Endo: On Insulin drip. Code status/Family: Full code. SERGIO SANCHEZ MD [facility] [address] [place] [address] I spent 33 min in [...] Gross for the last 7 days Intake 41922.01 ml Output 92376 ml Net since Admission -97468.99 ml Mechanical Ventilation Wentworth body weight: 59.6 kg (131 lb 7.2 [...] 64 (L) 02/14/2018 HCO3 30 (H) 02/14/2018 B5HDPOAT 94.2 02/14/2018 FIO2 0.40 02/13/2018 FJU3PDC4 158 (L) 02/13/2018 Lab Results Component Value Date VBGEXCESS 0.4 02/15/2018 VBGPH 7.34 (L) 02/15/2018 VBGPCO2 49 02/15/2018 VBGPO2 61 (H) 02/15/2018 VBGHCO3 26 02/15/2018 Up to Last 5 ABGs in 72 hours: No results for input(s): PH, PCO2, PO2, HCO3, ESYHG1VUI, H9BTNHJR, W3IZRHNSE, FIO2 in the l ast 72 hours. [...] 29 (H) 02/13/2018 HCO3 29 (H) 02/12/2018 A0EPXUMQ 94.2 02/14/2018 U5RTJIIC 93.2 02/13/2018 O7TRJDAF 96.3 02/13/2018 B3CGFHLJ 95.3 02/13/2018 G0HKTEBB 94.0 02/13/2018 G8RKIPCM 91.6 (L) 02/12/2018 FIO2 0.40 02/13/2018 FIO2 0.40 02/13/2018 FIO2 0.50 02/13/2018 FIO2 0.50 02/13/2018 FIO2 0.60 02/12/2018 FIO2 0.40 02/12/2018 UHC6XBD3 158 (L) 02/13/2018 EKG2ZTK0 198 (L) 02/13/2018 XBT4OJI2 148 (L) 02/13/2018 CJB5GQM0 134 (L) 02/13/2018 XUB7ZYS7 108 (L) 02/12/2018 QPM3RDP7 160 (L) 02/12/2018 Recent Labs 02/11/18 0036 [...] for: APTT, FIBRINOGEN No results found for: RZUZ67GXIUCG No results found for: URICACID No results found for: FREET4, TSH, TPOAB, THYROGLOB, THYROGLOBAB, S4CSKCI No results found for: IRON, IRONBINDCAP, SATTRANSFERR, [...] Chest 1 View Result Date: 02/15/2018 EXAM: OK CHEST 1 VIEW 02/15/18 06:12:20 HISTORY: Worsening [...] Chest 1 View Result Date: 02/14/2018 EXAM: OK CHEST 1 VIEW HISTORY: Fever of unknown origin. COMPARISON: 02/13/2018. FINDINGS: Endotracheal tube tip terminates 4 cm above the jim. Enteric tube courses below the diap hragm, out of the auibv-lq-xbfb. Cardiomediastinal contour is stable. Increased, dense retro [...] Chest 1 View Result Date: 02/12/2018 STUDY: OK CHEST 1 VIEW HISTORY: Endotracheal tube placement. COMPARISON: February 11, 2018 FINDINGS: The patient is imaged in prone position, limiting assessment of the lungs. The endotracheal tube terminates at the level of the clavicles, approximately 6.7 cm above the jim. The t ransesophageal sump tube terminates off the kpklo-ea-oblp. Lung opacities are mostly obscure d. IMPRESSION: [...] enteric tube trave ls caudally beyond the qinbl-tb-otky. Low lung volumes. Unchanged appearance of the [...] MD - 0 02/18/2018 6:07 AM PDT [facility] MEDICAL ICU - PROGRESS NOTE Hospital [...] Mandatory 350 ml | Spontaneous 390 ml [place]worth BW: 59.6 kg RR: 25 bpm Minute [...] Gross for the last 7 days Intake 18295.36 ml Output 06398 ml Net since Admission -9893.64 ml BMI: [...] and vancomyci n added 02/10 at OSH HYPERBARIC TECH. Pt already with poor baseline pulm function [...] Primary Surrogate Decision Maker Latanya Gunter Sister [phone] Secondary Surrogate Decision Maker Mr. Lala Mendoza This patient was staffed with Dr. Sanchez, attending physician. VAN PALMA MD Template created by [facility] 2017 Ron Friedman MD - 02/17/2018 8:48 [...] 64 (L) 02/14/2018 HCO3 30 (H) 02/14/2018 J7AKMRND 94.2 02/14/2018 FIO2 0.40 02/13/2018 OZR6RPL7 158 (L) 02/13/2018 Critical Diagnoses Hypoxic resp [...] SSRI Insulin gtt Ron Meeks MD, MA Industrial Order Clerk Division of Pulmonary & Critical Care Medicine Pager: [phone] Critical Care Time: I spent 16 minutes [...] [facility] Attending [facility] Hospital Admission Date: 02/11/2018 [...] who is critically ill. Leif Matamoros MD [facility] [address] [place] [address] Constanza Reilly MD - 02/17/2018 6:30 AM [...] and vancomyc in added 02/10 at OSH HYPERBARIC TECH. Pt already with poor baseline pulm function [...] above assessment & plan. CONSTANZA BYRD MD [facility] [address] [place] [address] ] Leif Rico RCP - 02/17/2018 6:11 [...] 64 (L) 02/14/2018 HCO3 30 (H) 02/14/2018 U8BOCGYJ 94.2 02/14/2018 FIO2 0.40 02/13/2018 KUH0CYA2 158 (L) 02/13/2018 BVS7JGT5 198 (L) 02/13/2018 XMA1OGA5 148 (L) 02/13/2018 SBM6QIX4 134 (L) 02/13/2018 P/F ratio: Improving/worsening Today [...] 64 (L) 02/14/2018 HCO3 30 (H) 02/14/2018 P0UVBGWZ 94.2 02/14/2018 FIO2 0.40 02/13/2018 XOT7JLS8 158 (L) 02/13/2018 Critical Diagnoses Hypoxic resp failure ARDS moderate Chronic pain metapneumovirus PNA Asthma OLIVIA Obesity pEFHF Anemia NOS NANCY Febrile Frequent PACs HTN Assessment/Plan PS ventilation, weaning support ceftriaxone Amlodipine and coreg started Propofol for sedation/pain with oxycodone; also on home gabapentin Continue home SSRI Insulin gtt Ron Meeks MD, MA Industrial Order Clerk Division of Pulmonary & Critical Care Medicine Pager: [phone] Critical Care Time: I spent 16 minutes [...] who is critically ill. Leif Matamoros MD [facility] [address] [place] [address] Pantera Armendariz RCP - 02/16/2018 9:07 AM PDTAdvanced oett 2cm . bs bilat Van Saucedo MD - 02/16/2018 6:03 AM PDTFormatting o f this note might be different from the original. [facility] MEDICAL ICU - PROGRESS NOTE Hospital [...] Mandatory 350 ml | Spontaneous 430 ml Wentworth BW: 59.6 kg RR: 18 bpm Minute [...] Gross for the last 5 days Intake 17103.79 ml Output 51569 ml Net since Admission -9527.21 ml BMI: [...] 64* -- HCO3 29* 30* 30* -- [id number] 198* 158* -- -- VBGPH -- -- [...] mg QDAY was held upon arrival to [facility] 02/10. -Amlodipine 10 mg QDAY (started [...] (02/08-02/10) and vanco added 02/10 at OSH HYPERBARIC TECH. Pt already with poor baseline pulm function [...] of positivity, s/p 5 days of Tamiflu HYPERBARIC TECH. On arrival to [facility], influe nza A/B negative on 02/11/2018. [...] Primary Surrogate Decision Maker Latanya Gunter Sister [phone] Secondary Surrogate Decision Maker Mr. Lala Mendoza [...] 64 (L) 02/14/2018 HCO3 30 (H) 02/14/2018 [id number] 94.2 02/14/2018 FIO2 0.40 02/13/2018 [id number] 158 (L) 02/13/2018 Critical Diagnoses Hypoxic resp [...] SSRI Insulin gtt Ron Meeks MD, MA Industrial Order Clerk Division of Pulmonary & Critical Care Medicine Pager: [phone] Critical Care Time: I spent 16 minutes [...] who is critically ill. Leif Matamoros MD [facility] [address] [place] [address] Van Saucedo M D - 02/15/2018 6:01 AM PDT [facility] MEDICAL ICU - PROGRESS NOTE Hospital [...] 4.5 mL/Kg (268.2 mL) RR: 24 bpm Wentworth BW: 59.6 kg FiO2 40 fraction of [...] last 4 days Intake 8176.57 ml Output 54221 ml Net since Admission -9890.43 ml BMI: [...] 63* 64* HCO3 29* 29* 30* 30* [id number] 148* 198* 158* -- Recent Labs 02/13/18 [...] mg QDAY was held upon arrival to [facility] 02/10. -Amlodipine 10 mg QDAY (started [...] (02/08-02/10) and vanco added 02/10 at OSH HYPERBARIC TECH. Pt already with poor baseline pulm function [...] of positivity, s/p 5 days of Tamiflu HYPERBARIC TECH. On arrival to [facility], influe nza A/B negative on 02/11/2018. [...] Primary Surrogate Decision Maker Latanya Gunter Sister [phone] Secondary Surrogate Decision Maker Mr. Reeves This patient was staffed with Dr. Leif Matamoros, attending physician. VAN PALMA MD Template created by [facility] 2017 2: 47 PM Ron Friedman MD [...] 64 (L) 02/14/2018 HCO3 30 (H) 02/14/2018 [id number] 94.2 02/14/2018 FIO2 0.40 02/13/2018 [id number] 158 (L) 02/13/2018 Critical Diagnoses Hypoxic resp [...] Diuresis as tolerated; maybe 1-2L negative today [place] study = non-paralysis group Vanc/zosyn and azithromycin stopped and ceftriaxone started for 7 days more Amlodipine started Fever work-up; may need to investigate LLL for effusion, may just be consolidation/ atel ectasis slow to resolve Propofol for sedation/pain with oxycodone; also on home gabapentin Continue home SSRI Ron Meeks MD, MA Industrial Order Clerk Division of Pulmonary & Critical Care Medicine Pager: [phone] Critical Care Time: I spent 27 minutes in the care and magagement of this patient who is cr itically ill (managing issues that acutely impair one or more vital organ systems such that there is a high probability of imminent or life threatening deterioration in the patient's c ondition). Annalee Arias, CONCILIATOR - 02/14/2018 4:52 PM PDTFormatting of this note might be different from the origina l. Events: PEEP weaned to +8 today, scheduled duonebs given Q4, Pulmicort BID. [place] study rem karen today. No plans to [...] 64 (L) 02/14/2018 HCO3 30 (H) 02/14/2018 [id number] 94.2 02/14/2018 FIO2 0.40 02/13/2018 [id number] 158 (L) 02/13/2018 [id number] 198 (L) 02/13/2018 [id number] 148 (L) 02/13/2018 [id number] 134 (L) 02/13/2018 P/F ratio: Improving/worsening Today [...] who is critically ill. Leif Matamoros MD [facility] [address] [place] [address] Van Saucedo M D - 02/14/2018 5:56 AM PDT [facility] MEDICAL ICU - PROGRESS NOTE Hospital [...] 4.5 mL/Kg (268.2 mL) RR: 28 bpm Wentworth BW: 59.6 kg FiO2 40 fraction of [...] last 3 days Intake 6643.09 ml Output 62397 ml Net since Admission -7128.91 ml BMI: [...] 63* 64* HCO3 29* 29* 30* 30* [id number] 148* 198* 158* -- Recent Labs 02/12/1830402/13/18133 [...] mg QDAY was held upon arrival to [facility] 02/10. -HTN was improving s/p diuresis [...] (02/08-02/10) and vanco added 02/10 at OSH HYPERBARIC TECH. Pt already with poor baseline pulm function [...] of positivity, s/p 5 days of Tamiflu HYPERBARIC TECH. On arrival to [facility], influe nza A/B negative on 02/11/2018. [...] 30 Ulcer Prophylaxis: H2 shane Glycemic control: Endotool insulin infusion Mobility Goal: Passive ROM Lines/Tubes/Drains/Airways: L foot PIV, RUE PIV, R wrist PIV, R arterial line, [place] and ET Tube. Code Status Code Status Full Code Surrogate Decision Maker Documentation: Surrogate Decision Maker Primary Surrogate Decision Maker Latanya Gunter Sister [phone] Secondary Surrogate Decision Maker Mr. Reeves This patient was staffed with Dr. Leif Matamoros, attending physician. VAN PALMA MD Template created by [facility] 2017 Ron Friedman MD - 02/13/2018 6:28 [...] PO2 79 02/13/2018 HCO3 29 (H) 02/13/2018 [id number] 96.3 02/13/2018 FIO2 0.40 02/13/2018 [id number] 198 (L) 02/13/2018 Critical Diagnoses Hypoxic resp [...] maybe 1L negative today given increasing creatinine [place] study = non-paralysis group Vanc/zosyn and azithromycin stopped and ceftriaxone started for 7 days more Propofol/dilaudid for sedation/pain; also on home gabapentin- may need to reduce with AK I Ron Meeks MD, MA Industrial Order Clerk Division of Pulmonary & Critical Care Medicine Pager: [phone] Critical Care Time: I spent 25 minutes [...] who is critically ill. Leif Matamoros MD [facility] [address] [place] [phone] Van Saucedo M D - 02/13/2018 5:53 AM PDT [facility] MEDICAL ICU - PROGRESS NOTE Hospital [...] 4.5 mL/Kg (268.2 mL) RR: 32 bpm Wentworth BW: 59.6 kg FiO2 50 fraction of [...] last 2 days Intake 4989.61 ml Output 05433 ml Net since Admission -5872.39 ml BMI: [...] 65* 67* 74 HCO3 29* 29* 29* [id number] 108* 134* 148* Recent Labs 02/11/186 02/12/1830402/13/18133 [...] mg QDAY was held upon arrival to [facility] 02/10. -HTN improving s/p diuresis. Although [...] (02/08-02/10) and vanco added 02/10 at OSH HYPERBARIC TECH. Pt already with poor baseline pulm function [...] of positivity, s/p 5 days of Tamiflu HYPERBARIC TECH. On arrival to [facility], influe nza A/B negative on 02/11/2018. [...] Primary Surrogate Decision Maker Latanya Gunter Sister [phone] Secondary Surrogate Decision Maker Mr. Reeves This [...] 64 (L) 02/12/2018 HCO3 29 (H) 02/12/2018 [id number] 92.7 02/12/2018 FIO2 0.40 02/12/2018 [id number] 160 (L) 02/12/2018 Critical Diagnoses Hypoxic resp failure ARDS moderate Chronic pain metapneumovirus PNA Asthma OLIVIA Obesity pSVTs pEFHF Anemia NOS NANCY Assessment/Plan Prone positioning with improved p/f ratio LTV ventilation (4.5ml/kg), pplat ~28-29; peep 14/fio2 40 Diuresis as tolerated; maybe 1-2L negative today given increasing creatinine [place] study = non-paralysis group Vanc/zosyn and azithromycin Propofol/dilaudid for sedation/pain; also on home gabapentin- may need to reduce with [place] I Ron Meeks MD, MA Industrial Order Clerk Division of Pulmonary & Critical Care Medicine Pager: [phone] Critical Care Time: I spent 15 minutes [...] who is critically ill. Leif Matamoros MD [facility] [address] [place] [phone] an Palma M D - 02/12/2018 6:07 AM PDT [facility] MEDICAL ICU - PROGRESS NOTE Hospital [...] 5 mL/Kg (298 mL) RR: 32 bpm Wentworth BW: 59.6 kg FiO2 40 fraction of [...] 54* 71* 68* HCO3 29* 30* 30* [id number] 135* 178* 170* Recent Labs 02/11/18 0036 [...] mg QDAY was held upon arrival to [facility] 02/10. -HTN improving s/p diuresis. -Given [...] (02/08-02/10) and vanco added 02/10 at OSH HYPERBARIC TECH. Pt already with poor baseline pulm function [...] of positivity, s/p 5 days of Tamiflu HYPERBARIC TECH. On arrival to [facility], influe nza A/B negative on 02/11/2018. [...] Primary Surrogate Decision Maker Latanya Gunter Sister [phone] Secondary Surrogate Decision Maker Mr. Lala Mendoza [...] with change in flow-trigger sensitivity Josr Mcnair, [facility] fellow Ron Friedman MD - [...] PO2 64 (L) 02/11/2018 HCO3 28 02/11/2018 [id number] 93.4 02/11/2018 FIO2 0.50 02/11/2018 [id number] 128 (L) 02/11/2018 Critical Diagnoses Hypoxic resp failure ARDS moderate Chronic pain metapneumovirus PNA Asthma OLIVIA Obesity pSVTs pEFHF Anemia NOS Assessment/Plan LTV ventilation, pplat ~28-29 Diuresis as tolerated [place] study = not paralyzed Vanc/zosyn and azithromycin Propofol/dilaudid for sedation/pain Serial ABGs- may consider prone positioning Latanya- sister at bedside Ron Meeks MD, MA Industrial Order Clerk Division of Pulmonary & Critical Care Medicine Pager: [phone] Critical Care Time: I spent 15 minutes [...] [employer] Network "BREANNE" Stud y (IRB # [id number]). Informed consent was obtained from the patient's LAR. The patient was subse quently enrolled in the study on 02/11/2018 at 1147 and randomized to the Control arm. The BREANNE study is an [facility]-sponsored multi-center, prospective, 2-arm, unblinded, randomized clinical trial of two management strategies of neuromuscular blockade [facility]. The study is assessing the efficacy and safety of early neuromuscular b lockade in reducing mortality and morbidity in patients with moderate-severe ARDS in compari son to a control group with no routine early neuromuscular blockade. Please see clinicaltria ls.gov # [id number] for more information. Informed Consent Informed consent was obtained prior to study enrollment. Due to the patient's critical illn ess and limited decision-making capacity, consent was obtained from the patient's legally au thorized community health representative (LAR). Study: BREANNE Date and time: 02/11/2018 at 1124 Research personnel obtaining consent: Janet Garcia, Research Coordinator Consent obtained from: Latanya Rea, patient's sibling and LAR Witness: Sergio Sanchez Principle Od Grinder Operator Method: phone Discussion: The nature of the [...] following aspects of the study: Participation in ANGOON NMB study: YES Participation in the ventilator [...] research, please contact the following individuals : Medical Claims Assistant Sergio Sanchez MD Office: [phone] Pager: [phone] Email: [email or web address] Manager PRISM Research Coordinator (smartweb -> Last Name -> PRISM) Pager: [phone] On-Call Coordinator Pager: [phone] (In SmartWeb type PRISM in last name) [...] (YOLIBS) Assoc. Prof. Pulm Crit Care | [facility] [address] | Mailcode: UHN-67 | [facility] [address] | Trent Adkins - 02/11/2018 9:09 AM PDTTransthoracic echocardiogram completed. Final report to follow. Van Saucedo MD - 12/2017 6:00 AM PDT [facility] MEDICAL ICU - PROGRESS NOTE Hospital Day: 0 | ICU Day: 1 ID/CC: Sarah Reeves is a 62 y.o. Woman w/ admitted to the MICU for acute hypoxemic hyperc arbic respiratory failure that required intubation. Consultants: None. 24 Hour Events: -Transferred from [facility] ([place], [place]) overnight. -Initially presented to ED 02/07/2018 [...] 8 mL/Kg (476.8 mL) RR: 22 bpm Wentworth BW: 59.6 kg FiO2 45 fraction of [...] mg QDAY was held upon arrival to [facility] 02/10. -Currently hypertensive with SBP 160s-170s. [...] (02/08-02/10) and vanco added 02/10 at OSH HYPERBARIC TECH. Pt already with poor baseline pulm function [...] of positivity, s/p 5 days of Tamiflu HYPERBARIC TECH. On arrival to [facility], influe nza A/B negative on 02/11/2018. [...] | + +------+--------+ + + | NON BUSINESS DEVELOPMENT RECRUITER CYTOLOGY | Lab | Routin | | [...] | + +------+--------+ + + | NON BUSINESS DEVELOPMENT RECRUITER CYTOLOGY | Lab | Routin | | [...] + +--------+ + + + | NON BUSINESS DEVELOPMENT RECRUITER CYTOLOGY | Routin | 03/01/2018 | | [...] [place] | [address] | [place], [place] | | | [place], POINT OF CARE | [address] | [address] | | | TESTS | | | [...] [facility] | [address] | [place] [address] | | | SERVICES, CORE | PARK [...] | | | LABORATORY | | | [place]RA[place] | | | SERVICES, | | | [...] the MDRD equation recommended by the | [facility] | | National Kidney Disease Education Program. Estimated GFR | LABORATORY | | Interpretive Information: <60 mL/min/1.73 sq | [place], CORE | | m Chronic Kidney Disease [...] | + + + + + | [facility] | [address] | [place] [address] | | | [place] | LANIE [...] [place]IO | [address] | [place], [place] | | | [place] [facility]INT [facility] CARE | [address] | [address] | | | TESTS | | | [...] [place] | [address] | [place], [place] | | | [facility] [place] | [address] | [address] | | | TESTS | | | [...] | [facility] | [address] | [place], [place] | | | [facility] OF CARE | [address] | [address] | | | TESTS | | | [...] - [place] | [address] | [place], [place] | | | [facility] | [address] | [address] | | | TESTS | | | [...] | | | LABORATORY | | | [place]RAINI | | | SERVICES, | | | [...] the MDRD equation recommended by the | [facility] | | National Kidney Disease Education [...] | + + + + + | [facility] | [address] [address] | [place] [address] | | | SERVICES, CORE | PARK [...] [place] | [address] | [place], [place] | | | [place] POINT OF CARE | [address] | [address] | | | TESTS | | | [...] KE[place]E | [address] | [place], [place] | | | [place] POINT OF CARE | [address] | [address] | | | TESTS | | | [...] [place] | [address] | [place], [place] | | | [place] POINT OF CARE | [address] | [address] | | | TESTS | | | [...] - [facility] | [address] | [place], [place] | | | [facility] | [address] | [address] | | | TESTS | | | [...] | | | LABORATORY | | | BAHRAINI | | | SERVICES, | | | [...] | Interpretive Information: <60 mL/min/1.73 sq | [facility] | | m Chronic Kidney Disease <15 [...] | + + + + + | [facility] | [address] | [place] [address] | | | [place], [place] | LANIE [...] (H) | 70 - 99 mg/dL | [facility] - | | | GLUCOSE, | [...] [place] | [address] | [place], [place] | | | [facility] | [facility] | [address] | | | TESTS | | | [...] KE[place]E | [address] | [place], [place] | | | [place]INT [facility] CARE | [address] | [address] | | | TESTS | | | [...] [place] | [address] | [place], [place] | | | STE[facility]IE [facility] OF CARE | [facility] | [address] | | | TESTS | | | [...] [place] | [address] | [place], [place] | | | [facility] [place] | [address] | [address] | | | TESTS | | | [...] KEBEDE | [address] | [place], [place] | | | [facility] CARE | [address] | [address] | | | TESTS | | | [...] [place] | [place]ES | | | [facility] | [address] | [address] | | | TESTS | | | [...] [place] | [address] | [place], [place] | | | [facility] CARE | [address] | [address] | | | TESTS | | | [...] [facility] | [address] | [place] [address] | | | SERVICES, CORE | LANIE [...] | | | LABORATORY | | | BAHRAINI | | | SERVICES, | | | [...] | + + + + + | [facility] [employer] | [address] | [place] [address] | | | [place] | LANIE [...] - DELIO | [address] | [place], [place] | | | [place] POINT OF CARE | [address] | [address] | | | TESTS | | | [...] (H) | 70 - 99 mg/dL | [facility] - | | | GLUCOSE, | [...] KE[place]EDE | [address] | [place], [place] | | | [facility] OF CARE | [address] | [address] | | | TESTS | | | [...] MARMICKIEAM | [address] | [place], [place] | | | [facility] CARE | [address] | [address] | | | TESTS | | | [...] DELIO | [address] | [place], [place] | | | [facility] | [address] | [address] | | | TESTS | | | [...] (H) | 70 - 99 mg/dL | [facility] - | | | GLUCOSE, | [...] [place] | [address] | [place], [place] | | | [facility] CARE | [address] | [address] | | | TESTS | | | [...] [facility] | [address] | [place] [address] | | | SERVICES, CORE | PARK [...] | | | LABORATORY | | | BAHRAINI | | | SERVICES, | | | [...] | + + + + + | [facility] [employer] | [address] [facility] | [place] [address] | | | [place] | LANIE [...] TAAM | [address] | [place], [place] | | | STE[facility]IE [facility] OF CARE | [facility] | [address] | | | TESTS | | | [...] (H) | 70 - 99 mg/dL | [facility] - | | | GLUCOSE, | [...] [place] | [address] | [place], [place] | | | [facility]INT OF CARE | [address] | [address] | | | TESTS | | | [...] KEBEDE | [address] | [place], [place] | | | VEE ZHU | [facility] | [address] | | | TESTS | | | [...] TAAM | [address] | [place], [place] | | | [facility] [place] | [facility] | [address] | | | TESTS | | | [...] (H) | 70 - 99 mg/dL | [facility] - | | | GLUCOSE, | [...] [place]E | [address] | [place], [place] | | | [facility] | [address] | [address] | | | TESTS | | | [...] | | | LABORATORY | | | BAHRAINI | | | SERVICES, | | | [...] | + + + + + | [facility] | [address] | [place] [address] | | | SERVICES, CORE | LANIE [...] (H) | 70 - 99 mg/dL | [facility] - | | | GLUCOSE, | [...] KEBEDE | [address] | [place], [place] | | | [facility] CARE | [facility] | [address] | | | TESTS | | | [...] [place] | [address] | [place], [place] | | | [facility] CARE | [address] | [address] | | | TESTS | | | [...] DELIO | [address] | [place], [place] | | | [facility] CARE | [address] | [address] | | | TESTS | | | [...] (H) | 70 - 99 mg/dL | [facility] - | | | GLUCOSE, | [...] + + + | [facility] | [address] | [place], [place] | | | [facility] | [address] | [address] | | | TESTS | | | [...] | | | LABORATORY | | | BAHRAINI | | | SERVICES, | | | [...] | + + + + + | [facility] | [address] | [place] [address] | | | [place], [place] | LANIE [...] (H) | 70 - 99 mg/dL | [facility] - | | | GLUCOSE, | [...] KEBEDE | [address] | [place], [place] | | | [facility] CARE | [address] | [address] | | | TESTS | | | [...] [place] | [address] | [place], [place] | | | [facility] CARE | [address] | [address] | | | TESTS | | | [...] [place] | [address] | [place], [place] | | | [facility] CARE | [address] | [address] | | | TESTS | | | [...] KEBEDE | [address] | [place], [place] | | | [facility] | [address] | [address] | | | TESTS | | | [...] [place] | [address] | [place], [place] | | | [facility] CARE | [address] | [address] | | | TESTS | | | [...] [place] | [address] | [place], [place] | | | STE[facility] OF CARE | [facility] | [address] | | | TESTS | | | [...] KE[place]E | [address] | [place], [place] | | | [facility] CARE | [address] | [address] | | | TESTS | | | [...] [place] | [address] | [place], [place] | | | [facility] CARE | [address] | [address] | | | TESTS | | | [...] TAAM | [address] | [place], [place] | | | [facility]INT OF CARE | [facility] | [address] | | | TESTS | | | [...] [facility] | [address] | [place] [address] | | | SERVICES, CORE | PARK [...] | | | LABORATORY | | | BAHRAINI | | | SERVICES, | | | [...] | + + + + + | [facility] | [address] | [place] [address] | | | SERVICES, CORE | PARK [...] [facility] | [address] | [place] [address] | | | SERVICES, CORE | PARK [...] | + + + + + | [facility] | [address] | [place] [address] | | | [place] | [address]ARK [...] | + + + + + | [facility] | [address] | [place] [address] | | | SERVICES, [place] | [address] | | | + [...] | | | | INFORMATION: | | [place] | | | | [employer] | [...] (http://www.cdc.gov/mmwr | | | | | | /preview/mmwrhtml/[email or web address] | | | | | | a1.htm), [...] | AIRPORT - | | | | [facility], | | [place] | | | | | | | | | | [address] | | | | | | [facility] [place] | | | | | | [address] | | | | | | [phone] | | | | | | | | | | | | [email or web address] [email or web address] | | | | | | [...] + | [facility] - AIRPORT - | [address] | [place] [address] | | | [place] | | | [...] [facility] | [address] | [place], [place] | | | [facility] CARE | [address] | [address] | | | TESTS | | | [...] [facility] | [address] | [place], [place] | | | [facility] CARE | [address] | [address] | | | TESTS | | | [...] [place] | [address] | [place] | | | [facility] | [address] | [address] | | | TESTS | | | [...] [place] | [address] | [place], [place] | | | STE[facility] CARE | [address] | [address] | | | TESTS | | | [...] - [facility] | [address] | [place], [place] | | | [facility]ARE | [address] | [address] | | | TESTS | | | [...] [place] | [address] | [place], [place] | | | [facility] | [address] | [address] | | | TESTS | | | [...] [place] | [address] | [place], [place] | | | [facility] CARE | [address] | [address] | | | TESTS | | | [...] - [facility] | [address] | [place], [place] | | | [facility]ARE | [address] | [address] | | | TESTS | | | [...] (H) | 70 - 99 mg/dL | [facility] - | | | GLUCOSE, | [...] [place] | [address] | [place], [place] | | | [facility] | [address] | [address] | | | TESTS | | | [...] [place] | [address] | [place], [place] | | | [facility] CARE | [address] | [address] | | | TESTS | | | [...] [place] | [address] | [place], [place] | | | [facility] | [address] | [address] | | | TESTS | | | [...] [place] | [address] | [place], [place] | | | [facility] | [address] | [address] | | | TESTS | | | [...] [place] | [address] | [place] | | | [facility]ARE | [address] | [address] | | | TESTS | | | [...] [place] | [address] | [place], [place] | | | [facility] | [address] | [address] | | | TESTS | | | [...] KEBEDE | [address] | [place], [place] | | | [facility] | [address] | [address] | | | TESTS | | | [...] MARQUAM | [address] | [place], [place] | | | [facility] | [address] | [address] | | | TESTS | | | [...] KEBEDE | [address] | [place], [place] | | | [facility] | [address] | [address] | | | TESTS | | | [...] | | | | | | by [employer],[address] | | | | | | [address], [facility] [place] | | | | | | [address] | | | | | | [phone].[facility]. | | | | | | Sherwin [...] [facility] | [address] | [place], [place] | | | [facility] | | [address] | | + + + + + [...] [facility] | | | (JOANN FABRICIO) | [employer],[address] | | [facility] UN[facility] | | | SERUM | [facility] [facility] | [facility] | | | | [address] | | | | | | [phone].[employer]. | | | | | | Sherwin [...] B: | | | | | | S[employer]/CS | | | | + + + + + + + + | Specimen | + + | Blood | + + + + + + + | Performing | Address | City/State/Zipcode | Phone Number | | Organization | | | | + + + + + | [facility] | [address] | [place], [place] | | | [facility] | | [address] | | + + + + + [...] | + + + + + | [facility] | [address] | [place] [address] | | | SERVICES, CORE | PARK [...] modified from | [facility] | | original receiving room clerk's approved specifications. The performance | LABORATORY | | of the COMPLIANCE OFFICER HIV Combo test, with or without confirmation, was not | SERVICES, | | tested in pediatric patients less than 2 years of age. [facility] | SPECIAL IMM + | | guidelines [...] | + + + + + | [facility] | [address] [address] | [place] [address] | | | SERVICES, SPECIAL | LANIE [...] DELIO | [address] | [place], [place] | | | STEPHIE ZHU OF DALY | [facility] | [address] | | | TESTS | | | [...] (H) | 70 - 99 mg/dL | [facility] - | | | GLUCOSE, | [...] KEBEDE | [address] | [place], [place] | | | [facility] CARE | [address] | [address] | | | TESTS | | | [...] PATRICIA - DELIO | [address] | [place], [place] | | | STEPHIE ZHU OF CARE | [address] | [address] | | | TESTS | | | [...] DELIO | [address] | [place], [place] | | | STEPHIE ZHU OF CARE | [facility] | [address] | | | TESTS | | | [...] (H) | 70 - 99 mg/dL | [facility] - | | | GLUCOSE, | [...] KEBEDE | [address] | [place], [place] | | | [facility]ARE | [address] | [address] | | | TESTS | | | [...] | | | LABORATORY | | | BAHRAINI | | | SERVICES, | | | [...] the MDRD equation recommended by the | [facility] | | National Kidney Disease Education Program. [...] | + + + + + | [facility] | [address] | [place] [address] | | | SERVICES, CORE | LANIE [...] 95 | 70 - 99 mg/dL | [facility] - | | | GLUCOSE, | [...] KEBEDE | [address] | [place], [place] | | | AU[facility]A POINT OF CARE | [facility] | [address] | | | TESTS | | | [...] MARQUAM | [address] | [place], [place] | | | STEPHIE ZHU OF CARE | [address] | [address] | | | TESTS | | | [...] DELIO | [address] | [place], [place] | | | STEPHIE ZHU OF CARE | [address] | [address] | | | TESTS | | | [...] (H) | 70 - 99 mg/dL | [facility] - | | | GLUCOSE, | [...] KEBEDE | [address] | [place], [place] | | | STEPHIE ZHU OF CARE | [address] | [address] | | | TESTS | | | [...] MARQUAM | [address] | [place], [place] | | | STEPHIE ZHU OF CARE | [address] | [address] | | | TESTS | | | [...] - DELIO | [address] | [place], [place] | | | STEPHIE ZHU OF CARE | [address] | [address] | | | TESTS | | | [...] (H) | 70 - 99 mg/dL | [facility] - | | | GLUCOSE, | [...] KEBEDE | [address] | [place], [place] | | | [facility]ARE | [address] | [address] | | | TESTS | | | [...] MARQUAM | [address] | [place], [place] | | | STEPHIE ZHU OF CARE | [address] | [address] | | | TESTS | | | [...] - DELIO | [address] | [place], [place] | | | STEPHIE Z[facility] OF CARE | [address] | [address] | | | TESTS | | | [...] (H) | 70 - 99 mg/dL | [facility] - | | | GLUCOSE, | [...] KEBEDE | [address] | [place], [place] | | | STEPHIE [facility] OF CARE | [address] | [address] | | | TESTS | | | [...] MARQUAM | [address] | [place], [place] | | | STEPHIE ZHU OF CARE | [address] | [address] | | | TESTS | | | [...] - DELIO | [address] | [place], [place] | | | [facility] | [address] | [address] | | | TESTS | | | [...] (H) | 70 - 99 mg/dL | [facility] - | | | GLUCOSE, | [...] KEBEDE | [address] | [place], [place] | | | STEPHIE ZHU OF CARE | [address] | [address] | | | TESTS | | | [...] MARMICKIEAM | [address] | [place], [place] | | | STEPHIE ZHU OF CARE | [address] | [address] | | | TESTS | | | [...] DELIO | [address] | [place], [place] | | | [facility] | [address] | [address] | | | TESTS | | | [...] (H) | 70 - 99 mg/dL | [facility] - | | | GLUCOSE, | [...] KEBEDE | [address] | [place], [place] | | | STEPHIE [facility] CARE | [address] | [address] | | | TESTS | | | [...] MARQUAM | [address] | [place], [place] | | | STEPHIE ZHU OF DALY | [address] | [address] | | | TESTS | | | [...] TAAM | [address] | [place], [place] | | | STE[facility]IE [facility] CARE | [address] | [address] | | | TESTS | | | [...] KEBEDE | [address] | [place], [place] | | | STE[facility]IE [facility] CARE | [address] | [address] | | | TESTS | | | [...] MARQUAM | [address] | [place], [place] | | | STEPHIE Z[facility] OF DALY | [address] | [address] | | | TESTS | | | [...] + + + + | [facility] | [address] | [place], [place] | | | STEPHIE ZHU OF CARE | [facility] | [address] | | | TESTS | | | [...] KEBEDE | [address] | [place], [place] | | | [facility] | [address] | [address] | | | TESTS | | | [...] MARQUAM | [address] | [place], [place] | | | STEPHIE Z[facility] CARE | [address] | [address] | | | TESTS | | | [...] MARQUAM | [address] | [place], [place] | | | STE[facility]IE Z[facility] CARE | [address] | [address] | | | TESTS | | | [...] KEBEDE | [address] | [place], [place] | | | [facility] | [address] | [address] | | | TESTS | | | [...] MARQUAM | [address] | [place], [place] | | | STEPHIE Z[facility] OF CARE | [address] | [address] | | | TESTS | | | [...] DELIO | [address] | [place], [place] | | | [facility]ARE | [address] | [address] | | | TESTS | | | [...] | | | LABORATORY | | | BAHRAINI | | | SERVICES, | | | [...] | + + + + + | [facility] | [address] | [place] [address] | | | [place] | LANIE [...] | + + + + + | [facility] - | [address] | [place] [address] | | | [place] | | | [...] + | PATRICIA KEBEDE | [address] | [place], [place] | | | [facility] CARE | [address] | [address] | | | TESTS | | | [...] KEBEDE | [address] | [place], [place] | | | STEPHIE ZHU OF DALY | [address] | [address] | | | TESTS | | | [...] DELIO | [address] | [place], [place] | | | STEPHIE ZHU OF DALY | [facility] | [address] | | | TESTS | | | [...] (H) | 70 - 99 mg/dL | [facility] - | | | GLUCOSE, | [...] KEBEDE | [address] | [place], [place] | | | [facility] | [address] | [address] | | | TESTS | | | [...] KEBEDE | [address] | [place], [place] | | | STEPHIE ZHU OF DALY | [address] | [address] | | | TESTS | | | [...] DELIO | [address] | [place], [place] | | | STEPHIE ZHU OF DALY | [facility] | [address] | | | TESTS | | | [...] (H) | 70 - 99 mg/dL | [facility] - | | | GLUCOSE, | [...] KEBEDE | [address] | [place], [place] | | | [facility] | [address] | [address] | | | TESTS | | | [...] KEBEDE | [address] | [place], [place] | | | STEPHIE Z[facility] OF DALY | [address] | [address] | | | TESTS | | | [...] DELIO | [address] | [place], [place] | | | STEPHIE ZHU OF DALY | [facility] | [address] | | | TESTS | | | [...] (H) | 70 - 99 mg/dL | [facility] - | | | GLUCOSE, | [...] KEBEDE | [address] | [place], [place] | | | [facility] | [address] | [address] | | | TESTS | | | [...] DELIO | [address] | [place], [place] | | | STEPHIE ZHU OF DALY | [address] | [address] | | | TESTS | | | [...] DELIO | [address] | [place], [place] | | | STEPHIE ZHU OF DALY | [facility] | [address] | | | TESTS | | | [...] (H) | 70 - 99 mg/dL | [facility] - | | | GLUCOSE, | [...] KEBEDE | [address] | [place], [place] | | | [facility] | [address] | [address] | | | TESTS | | | [...] DELIO | [address] | [place], [place] | | | STEPHIE ZUH OF CARE | [address] | [address] | | | TESTS | | | [...] DELIO | [address] | [place], [place] | | | [facility] | [facility] | [address] | | | TESTS | | | [...] | | | LABORATORY | | | BAHRAINI | | | SERVICES, | | | [...] + + | [facility] | [address] [address] | [place] [address] | | | SERVICES, [facility] | [address] | | | + [...] MARQUAM | [address] | [place], [place] | | | [facility] PO[facility] CARE | [address] | [address] | | | TESTS | | | [...] + + + | PATRICIA KEBEDE | [address] | [place], [place] | | | [facility] | [address] | [address] | | | TESTS | | | [...] | | | LABORATORY | | | BAHRAINI | | | SERVICES, | | | [...] | + + + + + | [facility] | [address] | [place] [address] | | | SERVICES, CORE | LANIE [...] TAAM | [address] | [place], [place] | | | STEPHIE ZHU OF DALY | [address] | [address] | | | TESTS | | | [...] | | + +---------+ + + | [facility] | | | | | [...] | + + + + + | [facility] | [address] [facility] [address] | [place], [place] | | | [facility] | [facility] | [address] | | | TESTS | | | | + + + + + EEG CONTINUOUS, ADULT (03/04/2018 4:54 PM PDT) + + + | Narrative | Performed At | + + + | Patient Name: Sarah Reeves Date of : 1955 | [facility] - | | Date of Test: 03/04/2018 Place | DELIO [facility] | | of Service: [facility] ([phone]) [phone] - [id number] [facility] Department: EEG [facility] - | POINT OF CARE | | [phone] [facility] VIDEO EEG Start | TESTS | | Date/Time: 03/04/2018 @ 16:30 End Date/Time: 03/05/2018 @ | | | 10:42 Telemetry Number: [id number] Reason for Test: Evaluate for | | [...] | | | on IV solumedrol, and crime victim specialist EEG ordered to assess for possible | [...] sinus rhythm. | | | IMPRESSION This snf EEG is abnormal due to: 1. Mild [...] rarely | | | associated with midline INTELLECTUAL PROPERTY COUNSEL lesions which was not demonstrated on | [...] Resident Present Suggested CPT: | | | 52148 - EEG Video, (12 - 24 hours) Suggested Dx: G93.49 Other | | | encephalopathy | | + + + + + + + + | Performing | Address | City/State/Zipcode | Phone Number | | Organization | | | | + + + + + | [facility] | [address] | [place], [place] | | | STEPHIE ZHU OF DALY | [facility] | [address] | | | TESTS | | | [...] KEBEDE | [address] | [place], [place] | | | [facility]A PO[facility] CARE | [address] | [address] | | | TESTS | | | [...] | + + + + + | [facility] [facility] | [address] | [place] [address] | | | SERVICES, CORE | PARK [...] [facility] | [address] | [place] [address] | | | SERVICES, CORE | PARK [...] | + + + + + | [facility] | [address] | [place] [address] | | | SERVICES, CORE | LANIE [...] - | | | | | | [place] | | + +-------+ + + + [...] | + + + + + | [facility] - | [address] | [place] [address] | | | [place] | | | [...] | | | LABORATORY | | | BAHRAINI | | | SERVICES, | | | [...] + + | Performing | Address | City/State/[facility] | Phone Number | | Organization | | | | + + + + + | [facility] | [address] | [place] [address] | | | [place] | LANIE [...] MARQUAM | [address] | [place], [place] | | | AU[facility]A POINT OF CARE | [address] | [address] | | | TESTS | | | [...] KEBEDE | [address] | [place], [place] | | | STEPHIE Z[facility] CARE | [address] | [address] | | | TESTS | | | [...] MARQUAM | [address] | [place], [place] | | | STE[facility]IE [facility] CARE | [address] | [address] | | | TESTS | | | [...] - DELIO | [address] | [place], [place] | | | [facility] CARE | [address] | [address] | | | TESTS | | | [...] [facility] | | | LAB NAME | [facility] | | REFERENCE | | | | [address] | | LAB | | | | [place] [address] | | | | + + + [...] | + + + + + | [facility] | [address] | [place] [address] | | | SERVICES, CORE | [address] | | | + + + + + | [facility] | see below | [...] (H) | 70 - 99 mg/dL | [facility] - | | | GLUCOSE, | [...] KEBEDE | [address] | [place], [place] | | | [facility] | [address] | [address] | | | TESTS | | | | + + + + + X-RAY PORTABLE CHEST 1 VIEW (03/03/2018 9:08 AM PDT) + + | Specimen | + + | | + + + + + | Narrative | Performed At | + + + | EXAM: OK CHEST 1 VIEW HISTORY: Right pectoral pain [...] Note | + + | Service Account, [employer] Res In Interface - 03/03/2018 4:37 PM PDT EXAM: OK CHEST 1 | | VIEWHISTORY: Right pectoral [...] [facility] | [address] | [place] [address] | | | SERVICES, CORE | PARK [...] | | | LABORATORY | | | BAHRAINI | | | SERVICES, | | | [...] the MDRD equation recommended by the | [facility] | | National Kidney Disease Education [...] | + + + + + | [facility] | [address] | [place] [address] | | | [place] | LANIE [...] and new reporting units as of | [facility] | | 04/15/2014. | LABORATORY | | | [place] | + + + + + + + + | Performing | Address | City/State/Zipcode | Phone Number | | Organization | | | | + + + + + | [facility] | [address] | [place] [address] | | | [place] | LANIE [...] | + + + + + | [facility] | [address] | [place] [address] | | | [place] | LANIE [...] + | [facility] - | [address] | [place] [address] | | | [place] | | | [...] by | | | | | | [employer],[address] | | | | | | Stan Cruz, [facility] | | | | | | [address] | | | | | | [phone].[email or web address]. | | | | | | [facility], Sherwin Diez MD, | | | | | | Lab. Director | | | | + + + + + + + + | Specimen | + + | Blood | + + + + + + + | Performing | Address | City/State/[facility] | Phone Number | | Organization | | | | + + + + + | [facility] | [address] | [place], [place] | | | [facility] | | [address] | | + + + + + [...] [place] | | | | | | [address] | | | | | | [phone]. | | | | | | Sherwin [...] [facility] | [address] | [place], [place] | | | [facility] | | [address] | | + + + + + [...] | | | | SSA, SSB, Sm, Sm-ELECTROCHEMIST, | | | | | | ELECTROCHEMIST, Chromatin, dsDNA, | | | | | [...] | [facility] - | | Sm, SmRNP, ELECTROCHEMIST, Chromatin, Scl-70, Centromere-B, Ribosomal P, and | [facility] - | | Cristin-1. | [place] | + + + + + + + + | Performing | Address | City/State/Zipcode | Phone Number | | Organization | | | | + + + + + | [facility] - | [address] | [place] [address] | | | [place] | | | [...] IFA | | | | | | ([id number]).INTERPRETIVE | | | | | | INFORMATION: [...] | | | | | SARD.Performed by [employer] | | | | | | [facility],[address] [place] [address] | | | | | | [place] [address] | | | | | | [phone].[email or web address]. | | | | | | Sherwin [...] [facility] | [address] | [place], [place] | | | [facility] | | [address] | | + + + + + [...] KEBEDE | [address] | [place], [place] | | | STEPHIE [facility] CARE | [address] | [address] | | | TESTS | | | [...] MARQUAM | [address] | [place], [place] | | | [facility] CARE | [address] | [address] | | | TESTS | | | [...] - MARMICKIEAM | [address] | [place], [place] | | | STE[facility] CARE | [address] | [address] | | | TESTS | | | [...] KEBEDE | [address] | [place], [place] | | | STEPHIE Z[facility] OF DALY | [address] | [address] | | | TESTS | | | [...] MARQUAM | [address] | [place], [place] | | | [facility] CARE | [address] | [address] | | | TESTS | | | [...] [facility] | [address] | [place] [address] | | | SERVICES, CORE | PARK [...] | | | LABORATORY | | | BAHRAINI | | | SERVICES, | | | [...] the MDRD equation recommended by the | [facility] | | National Kidney Disease Education [...] | + + + + + | [facility] | [address] | [place] [address] | | | [place] | LANIE [...] MARQUAM | [address] | [place], [place] | | | STE[facility] CARE | [address] | [address] | | | TESTS | | | [...] KEBEDE | [address] | [place], [place] | | | [facility] | [address] | [address] | | | TESTS | | | | + + + + + X-RAY PORTABLE ABDOMEN 1 VIEW (03/01/2018 10:38 PM PDT) + + | Specimen | + + | | + + + + + | Narrative | Performed At | + + + | EXAM: OK ABDOMEN 1 VIEW HISTORY: Enteric tube COMPARISON: [...] Note | + + | Service Account, [employer] Interface - 03/02/2018 9:16 PM PDT EXAM: OK ABDOMEN | | 1 VIEWHISTORY: Enteric tubeCOMPARISON: [...] | | + +---------+ + + | [facility] | | | | | [...] KEBEDE | [address] | [place], [place] | | | [facility] | [address] | [address] | | | TESTS | | | [...] complications. Physicians | | | present: Dr. James, Dr. Wilkinson Fluoroscopy time: 27 sec | [...] | | + +---------+ + + NON BUSINESS DEVELOPMENT RECRUITER CYTOLOGY (03/01/2018 7:54 PM PDT) + + [...] | PATHOLOGY | Casey, | | | CT([facility]) - | | | ,PhD [...] | + + + + + | [facility] DE[facility] | [address] | [place] [address] | | | PATHOLOGY | [address] [...] [facility] | | | LAB NAME | [facility] | | REFERENCE | | | | [address] | | LAB | | | | [place] [address] | | | | + + + [...] PATRICIA DELANEY | [address] | [place] [address] | | | SERVICES, CORE | LANIE [...] | + + + + + | [employer] [facility] | [address] | [place] [address] | | | [place] | LANIE [...] | | LABORATORY | | | SERVICES, [place] | + + + + + + + + | Performing | Address | City/State/Zipcode | Phone Number | | Organization | | | | + + + + + | [facility] | [address] | [place] [address] | | | SERVICES, CORE | LANIE [...] | + + + + + | [facility] | [address] | [place] [address] | | | SERVICES, CORE | PARK [...] | + + + + + | [facility] | [address] | [place] [address] | | | SERVICES, CORE | PARK [...] [facility] | [address] | [place] [address] | | | SERVICES, CORE | PARK [...] [facility] | [address] | [place] [address] | | | SERVICES, CORE | PARK [...] | + + + + + | [facility] | [address] [facility] | [place] [address] | | | SERVICES, CORE | LANIE [...] + | [facility] - | [address] | [place] [address] | | | [place] | | | [...] - DELIO | [address] | [place], [place] | | | [facility] | [address] | [address] | | | TESTS | | | [...] | + + + + + | [facility] | [address] | [place] [address] | | | SERVICES, CORE | PARK [...] | | | LABORATORY | | | BAHRAINI | | | SERVICES, | | | [...] | + + + + + | [facility] | [address] | [place] [address] | | | SERVICES, CORE | LANIE [...] (H) | 70 - 99 mg/dL | [facility] - | | | GLUCOSE, | [...] + + + | PATRICIA KEBEDE | [address] | [place], [place] | | | [facility] | [address] | [address] | | | TESTS | | | [...] MARMICKIEAM | [address] | [place], [place] | | | STE[facility]IE [facility] OF CARE | [address] | [address] | | | TESTS | | | [...] KEBEDE | [address] | [place], [place] | | | STEPHIE Z[facility] OF DALY | [facility] | [address] | | | TESTS | | | | + + + + + EEG ROUTINE (02/28/2018 2:52 PM PDT) + + + | Narrative | Performed At | + + + | Patient Name: Sarah Reeves Date of : 1955 | [facility] - | | Date of Test: 02/28/2018 Place | [facility], | | of Service: [facility] [phone] - [facility] Department: EEG [facility] - | POINT [...] | captured. James Mares DO Epilepsy Fellow [facility] Comprehensive | | | Epilepsy Center NEUROLOGY ATTENDING ATTESTATION I independently | | | reviewed the EEG record, edited the report as necessary, and agree | | | with the fellow's interpretation as documented. Date of Service: | | | 02/28/18 Viridiana Ramos MD Industrial Order Clerk, | | | Neurology/Epilepsy | | | | | | Billing/Coding: Provider: Viridiana Ramos MD Date: 02/28/18 | | | Suggested Modifier: GC - Resident Present Suggested CPT: 49763 - EEG | | | Routine Awake Only Suggested Dx: G93.49 Other encephalopathy | | + + + + + + + + | Performing | Address | City/State/Zipcode | Phone Number | | Organization | | | | + + + + + | [facility] | [address] | [place], [place] | | | [facility] | [address] | [address] | | | TESTS | | | [...] | + + + + + | [facility] | [address] | [place] [address] | | | SERVICES, CORE | LANIE [...] (H) | 70 - 99 mg/dL | VASU - | | | GLUCOSE, | | [...] DELIO | [address] | [place], [place] | | | [facility] | [facility] | [address] | | | TESTS | | | [...] | | | LABORATORY | | | [facility] | | | SERVICES, | | | [...] | + + + + + | [facility] | [address] | [place] [address] | | | SERVICES, CORE | PARK [...] | + + + + + | [facility] | [address] [facility] | [place] [address] | | | SERVICES, CORE | LANIE [...] MARQU[facility] | [address] | [place], [place] | | | [facility] | [address] | [address] | | | TESTS | | | [...] - [facility] | [address] | [place], [place] | | | [facility] | [address] | [address] | | | TESTS | | | [...] + + + | [facility] | [address] | [place], [place] | | | [facility] | [address] | [address] | | | TESTS | | | [...] RADIOLOGY VOICE | | The patient's healthcare community health representative (sister) consented after PARQ | RECOGNITION [...] encephalopathy.COMPARISON: | | NoneTECHNIQUE: The patient's healthcare community health representative (sister) consented after PARQ | | [...] | + + + + + | [facility] | [address] | [place] [address] | | | SERVICES, CORE | LANIE [...] (H) | 70 - 99 mg/dL | [facility] - | | | GLUCOSE, | [...] KEBEDE | [address] | [place], [place] | | | [facility] | [address] | [address] | | | TESTS | | | [...] | + + + + + | [facility] | [address] [facility] | [place] [address] | | | SERVICES, CORE | LANIE [...] (H) | 70 - 99 mg/dL | VASU - | | | GLUCOSE, | | [...] KEBEDE | [address] | [place], [place] | | | [facility] | [facility] | [address] | | | TESTS | | | [...] | + + + + + | [facility] | [address] | [place] [address] | | | SERVICES, CORE | LANIE [...] | | | LABORATORY | | | BAHRAINI | | | SERVICES, | | | [...] | + + + + + | [facility] [facility] | [address] | [place] [address] | | | SERVICES, [place] | LANIE [...] MARQU[facility] | [address] | [place], [place] | | | [facility] | [address] | [address] | | | TESTS | | | [...] MARQU[facility] | [address] | [place], [place] | | | [facility] | [address] | [address] | | | TESTS | | | [...] KEBEDE | [address] | [place], [place] | | | [facility] | [address] | [address] | | | TESTS | | | [...] | + + + + + | [facility] | [address] | [place] [address] | | | COSTA, CORE | LANIE [...] | | | LABORATORY | | | BAHRAINI | | | SERVICES, | | | [...] | + + + + + | [facility] | [address] | [place] [address] | | | SERVICES, CORE | LANIE [...] MARQUAM | [address] | [place], [place] | | | [facility] | [address] | [address] | | | TESTS | | | [...] TAAM | [address] | [place], [place] | | | [facility] | [address] | [address] | | | TESTS | | | [...] KEBEDE | [address] | [place], [place] | | | [facility] | [address] | [address] | | | TESTS | | | [...] MARQUAM | [address] | [place], [place] | | | [facility] | [address] | [address] | | | TESTS | | | [...] DELIO | [address] | [place], [place] | | | [facility] | [address] | [address] | | | TESTS | | | [...] | + + + + + | [facility] | [address] | [place] [address] | | | SERVICES, CORE | PARK [...] | | | LABORATORY | | | BAHRAINI | | | SERVICES, | | | [...] | + + + + + | [facility] | [address] | [place] [address] | | | SERVICES, CORE | LANIE [...] (H) | 70 - 99 mg/dL | [facility] - | | | GLUCOSE, | | [...] KEBEDE | [address] | [place], [place] | | | [facility] | [address] | [address] | | | TESTS | | | [...] MARQUAM | [address] | [place], [place] | | | [facility] | [address] | [address] | | | TESTS | | | [...] MARQUAM | [address] | [place], [place] | | | [facility] | [facility] | [address] | | | TESTS | | | [...] KEBEDE | [address] | [place], [place] | | | [facility] | [address] | [address] | | | TESTS | | | [...] MARQUAM | [address] | [place], [place] | | | [facility] | [address] | [address] | | | TESTS | | | [...] [facility] | [address] | [place] [address] | | | SERVICES, CORE | PARK [...] (H) | 70 - 99 mg/dL | [facility] | | | PLASMA | | | [...] | | | LABORATORY | | | BAHRAINI | | | SERVICES, | | | [...] | + + + + + | [facility] | [address] [facility] | [place] [address] | | | SERVICES, CORE | PARK [...] | + + + + + | [facility] | [address] | [place] [address] | | | SERVICES, CORE | PARK [...] MARQUAM | [address] | [place], [place] | | | [facility] | [facility] | [address] | | | TESTS | | | [...] - MARQUAM | [address] | [place], [place] | | | [facility] | [address] | [address] | | | TESTS | | | [...] + + + | PATRICIA KEBEDE | [address] | [place], [place] | | | [facility] | [address] | [address] | | | TESTS | | | [...] MARQUAM | [address] | [place], [place] | | | [facility] | [address] | [address] | | | TESTS | | | [...] - MARQUAM | [address] | [place], [place] | | | [facility] | [address] | [address] | | | TESTS | | | [...] [facility]PT [facility] | [address] | [place], [place] | | | CARDIOLOGY | [address] | [address] | | + + + + + [...] MARQUAM | [address] | [place], [place] | | | [facility] | [address] | [address] | | | TESTS | | | [...] | + + + + + | [facility] | [address] [facility] [facility] | [place] [address] | | | SERVICES, CORE | LANIE [...] [facility] | [address] | [place] [address] | | | SERVICES, CORE | PARK [...] | + + + + + | [facility] | [address] | [place] [address] | | | SERVICES, [place] | LANIE [...] | + + + + + | [facility] | [address] | [place] [address] | | | SERVICES, CORE | LANIE [...] | | | LABORATORY | | | BAHRAINI | | | SERVICES, | | | [...] | + + + + + | [facility] | [address] | [place] [address] | | | SERVICES, [place] | LANIE [...] [facility] | [address] | [place], [place] | | | [facility] | [facility] | [address] | | | TESTS | | | [...] MARQUAM | [address] | [place], [place] | | | [facility] | [address] | [address] | | | TESTS | | | [...] KEBEDE | [address] | [place], [place] | | | [facility] | [facility] | [address] | | | TESTS | | | [...] MARQUAM | [address] | [place], [place] | | | [facility] | [facility] | [address] | | | TESTS | | | [...] | + + + + + | [facility] | [address] | [place] [address] | | | SERVICES, CORE | LANIE [...] [facility] | [address] | [place] [address] | | | SERVICES, CORE | LANIE [...] MARQUAM | [address] | [place], [place] | | | [facility] | [address] | [address] | | | TESTS | | | [...] + + + | PATRICIA KEBEDE | [address] | [place], [place] | | | [facility] | [address] | [address] | | | TESTS | | | [...] MARQUAM | [address] | [place], [place] | | | [facility] | [facility] | [address] | | | TESTS | | | [...] KEBEDE | [address] | [place], [place] | | | [facility] | [address] | [address] | | | TESTS | | | [...] MARQUAM | [address] | [place], [place] | | | [facility] | [address] | [address] | | | TESTS | | | [...] DELIO | [address] | [place], [place] | | | [facility] | [address] | [address] | | | TESTS | | | [...] KEBEDE | [address] | [place], [place] | | | [facility] | [facility] | [address] | | | TESTS | | | [...] TAAM | [address] | [place], [place] | | | [facility] | [facility] | [address] | | | TESTS | | | [...] (H) | 70 - 99 mg/dL | [facility] - | | | GLUCOSE, | [...] KEBEDE | [address] | [place], [place] | | | [facility] | [address] | [address] | | | TESTS | | | [...] | + + + + + | [facility] | [address] [facility] [facility] | [place] [address] | | | SERVICES, CORE | LANIE [...] [facility] | [address] | [place] [address] | | | SERVICES, CORE | PARK [...] | + + + + + | [facility] | [address] | [place] [address] | | | SERVICES, CORE | LANIE [...] [facility] | [address] | [place] [address] | | | SERVICES, CORE | PARK [...] (H) | 70 - 99 mg/dL | [facility] | | | PLASMA | | | [...] | | | LABORATORY | | | BAHRAINI | | | SERVICES, | | | [...] | + + + + + | [facility] | [address] [facility] | [place] [address] | | | SERVICES, CORE | PARK [...] - MARQUAM | [address] | [place], [place] | | | [facility] | [address] | [address] | | | TESTS | | | [...] KEBEDE | [address] | [place], [place] | | | [facility] | [address] | [address] | | | TESTS | | | [...] MARQUAM | [address] | [place], [place] | | | [facility] | [address] | [address] | | | TESTS | | | [...] MARQUAM | [address] | [place], [place] | | | [facility] | [address] | [address] | | | TESTS | | | [...] KEBEDE | [address] | [place], [place] | | | [facility] | [address] | [address] | | | TESTS | | | [...] MARQUAM | [address] | [place] | | | [facility] | [address] | [address] | | | TESTS | | | [...] + + | PATRICIA KEBEDE | [address] [facility] [address] | [place], [place] | | | [facility] | [address] | [address] | | | TESTS | | | [...] + + | [facility] | [address] | [place], [place] | | | [facility] | [address] | [address] | | | TESTS | | | [...] | + + + + + | [facility] | [address] | [place] [address] | | | [place] | | | | + + + [...] [facility] | [address] | [place] [address] | | | SERVICES, CORE | PARK [...] + | [facility] | [address] | [place] [address] | | | SERVICES, CORE | PARK [...] | + + + + + | [facility] | [address] | [place] [address] | | | SERVICES, CORE | LANIE [...] (H) | 70 - 99 mg/dL | [facility] - | | | GLUCOSE, | | [...] KEBEDE | [address] | [place], [place] | | | [facility] | [address] | [address] | | | TESTS | | | [...] + + | [facility] | [address] | [place], [place] | | | [facility] | [address] | [address] | | | TESTS | | | [...] MARQUAM | [address] | [place], [place] | | | [facility] | [address] | [address] | | | TESTS | | | [...] KEBEDE | [address] | [place], [place] | | | [facility] | [address] | [address] | | | TESTS | | | [...] MARQUAM | [address] | [place], [place] | | | [facility] | [address] | [address] | | | TESTS | | | [...] MARQUAM | [address] | [place] | | | [facility] | [facility] | [address] | | | TESTS | | | [...] KEBEDE | [address] | [place], [place] | | | [facility] | [address] | [address] | | | TESTS | | | [...] MARQUAM | [address] | [place], [place] | | | [facility] | [address] | [address] | | | TESTS | | | [...] MARQUAM | [address] | [place], [place] | | | [facility] | [facility] | [address] | | | TESTS | | | [...] KEBEDE | [address] | [place], [place] | | | [facility] | [address] | [address] | | | TESTS | | | [...] MARQUAM | [address] | [place], [place] | | | [facility] | [address] | [address] | | | TESTS | | | [...] - MARQUAM | [address] | [place], [place] | | | [facility] | [facility] | [address] | | | TESTS | | | [...] KEBEDE | [address] | [place], [place] | | | [facility] | [address] | [address] | | | TESTS | | | [...] MARQUAM | [address] | [place], [place] | | | [facility] | [address] | [address] | | | TESTS | | | [...] | + + + + + | [facility] | [address] | [place] [address] | | | SERVICES, CORE | PARK [...] [facility] | [address] | [place] [address] | | | SERVICES, [place] | LANIE [...] | | | LABORATORY | | | BAHRAINI | | | SERVICES, | | | [...] | + + + + + | [facility] | [address] | [place] [address] | | | SERVICES, CORE | LANIE [...] | + + + + + | [facility] | [address] | [place] [address] | | | SERVICES, [place] | LANIE [...] (H) | 70 - 99 mg/dL | [facility] - | | | GLUCOSE, | [...] KEBEDE | [address] | [place], [place] | | | [facility] | [address] | [address] | | | TESTS | | | [...] MARQUAM | [address] | [place], [place] | | | [facility] | [address] | [address] | | | TESTS | | | [...] MARQUAM | [address] | [place], [place] | | | [facility] | [address] | [address] | | | TESTS | | | [...] KEBEDE | [address] | [place], [place] | | | [facility] | [address] | [address] | | | TESTS | | | [...] DELIO | [address] | [place], [place] | | | [facility] | [address] | [address] | | | TESTS | | | [...] KEBEDE | [address] | [place] | | | [facility] | [facility] | [address] | | | TESTS | | | [...] MARQUAM | [address] | [place], [place] | | | [facility] | [facility] | [address] | | | TESTS | | | [...] (H) | 70 - 99 mg/dL | [facility] - | | | GLUCOSE, | [...] TAAM | [address] | [place], [place] | | | [facility] | [address] | [address] | | | TESTS | | | [...] KEBEDE | [address] | [place], [place] | | | [facility] | [facility] | [address] | | | TESTS | | | [...] - MARQUAM | [address] | [place], [place] | | | [facility] | [facility] | [address] | | | TESTS | | | [...] (H) | 70 - 99 mg/dL | [facility] - | | | GLUCOSE, | [...] DELIO | [address] | [place], [place] | | | [facility] | [address] | [address] | | | TESTS | | | [...] | + + + + + | [facility] | [address] | [place] [address] | | | SERVICES, [place] | LANIE [...] (H) | 70 - 99 mg/dL | [facility] - | | | GLUCOSE, | [...] MARQUAM | [address] | [place], [place] | | | [facility] | [address] | [address] | | | TESTS | | | [...] KEBEDE | [address] | [place], [place] | | | [facility] | [address] | [address] | | | TESTS | | | [...] | + + + + + | [facility] | [address] | [place] [address] | | | SERVICES, CORE | LANIE [...] KEBEDE | [address] | [place], [place] | | | [facility] | [address] | [address] | | | TESTS | | | [...] MARQUAM | [address] | [place], [place] | | | [facility] | [address] | [address] | | | TESTS | | | [...] (H) | 70 - 99 mg/dL | [facility] - | | | GLUCOSE, | [...] - MARQUAM | [address] | [place], [place] | | | [facility] | [facility] | [address] | | | TESTS | | | [...] KEBEDE | [address] | [place], [place] | | | [facility] | [address] | [address] | | | TESTS | | | [...] MARQUAM | [address] | [place], [place] | | | [facility] | [address] | [address] | | | TESTS | | | [...] MARQUAM | [address] | [place], [place] | | | [facility] | [facility] | [address] | | | TESTS | | | [...] KEBEDE | [address] | [place], [place] | | | [facility] | [address] | [address] | | | TESTS | | | [...] MARQUAM | [address] | [place] | | | [facility] | [address] | [address] | | | TESTS | | | [...] | + + + + + | [facility] | [address] | [place] [address] | | | SERVICES, [place] | LANIE [...] | | | LABORATORY | | | BAHRAINI | | | SERVICES, | | | [...] | + + + + + | [facility] | [address] | [place] [address] | | | SERVICES, CORE | PARK [...] | + + + + + | [facility] | [address] [facility] [facility] | [place] [address] | | | COSTA, CORE | LANIE [...] MARQUAM | [address] | [place], [place] | | | [facility] | [facility] | [address] | | | TESTS | | | [...] MARQUAM | [address] | [place], [place] | | | [facility] | [facility] | [address] | | | TESTS | | | [...] KEBEDE | [address] | [place] | | | [facility] | [address] | [address] | | | TESTS | | | [...] MARQUAM | [address] | [place], [place] | | | [facility] | [facility] | [address] | | | TESTS | | | [...] MARQUAM | [address] | [place], [place] | | | [facility] | [facility] | [address] | | | TESTS | | | [...] KEBEDE | [address] | [place], [place] | | | [facility] | [address] | [address] | | | TESTS | | | [...] MARQUAM | [address] | [place], [place] | | | [facility] | [facility] | [address] | | | TESTS | | | [...] MARQUAM | [address] | [place], [place] | | | [facility] | [facility] | [address] | | | TESTS | | | [...] KEBEDE | [address] | [place], [place] | | | [facility] | [address] | [address] | | | TESTS | | | [...] MARQUAM | [address] | [place], [place] | | | [facility] | [facility] | [address] | | | TESTS | | | [...] MARQUAM | [address] | [place], [place] | | | [facility] | [address] | [address] | | | TESTS | | | [...] KEBEDE | [address] | [place], [place] | | | [facility] | [address] | [address] | | | TESTS | | | [...] MARMICKIEAM | [address] | [place], [place] | | | [facility] | [address] | [address] | | | TESTS | | | [...] MARQUAM | [address] | [place], [place] | | | [facility] | [facility] | [address] | | | TESTS | | | [...] KEBEDE | [address] | [place], [place] | | | [facility] | [address] | [address] | | | TESTS | | | [...] DELIO | [address] | [place], [place] | | | [facility] | [address] | [address] | | | TESTS | | | [...] MARQUAM | [address] | [place], [place] | | | [facility] | [facility] | [address] | | | TESTS | | | [...] KEBEDE | [address] | [place] | | | [facility] | [address] | [address] | | | TESTS | | | [...] DELIO | [address] | [place], [place] | | | [facility] | [facility] | [address] | | | TESTS | | | [...] (H) | 70 - 99 mg/dL | [facility] - | | | GLUCOSE, | [...] MARQUAM | [address] | [place], [place] | | | [facility] | [facility] | [address] | | | TESTS | | | [...] KEBEDE | [address] | [place], [place] | | | [facility] | [address] | [address] | | | TESTS | | | [...] DELIO | [address] | [place], [place] | | | [facility] | [facility] | [address] | | | TESTS | | | [...] (H) | 70 - 99 mg/dL | [facility] - | | | GLUCOSE, | [...] MARQUAM | [address] | [place], [place] | | | [facility] | [address] | [address] | | | TESTS | | | [...] KEBEDE | [address] | [place], [place] | | | [facility] | [facility] | [address] | | | TESTS | | | [...] | + + + + + | [facility] | [address] [facility] | [place] [address] | | | SERVICES, CORE | LANIE [...] | | | LABORATORY | | | BAHRAINI | | | SERVICES, | | | [...] | + + + + + | [facility] | [address] | [place] [address] | | | SERVICES, CORE | LANIE [...] (H) | 70 - 99 mg/dL | [facility] - | | | GLUCOSE, | [...] KEBEDE | [address] | [place], [place] | | | [facility] | [facility] | [address] | | | TESTS | | | [...] TAAM | [address] | [place], [place] | | | [facility] | [address] | [address] | | | TESTS | | | [...] DELIO | [address] | [place], [place] | | | [facility] | [facility] | [address] | | | TESTS | | | [...] (H) | 70 - 99 mg/dL | [facility] - | | | GLUCOSE, | [...] KEBEDE | [address] | [place], [place] | | | [facility] | [facility] | [address] | | | TESTS | | | [...] MARQUAM | [address] | [place], [place] | | | [facility] | [address] | [address] | | | TESTS | | | [...] DELIO | [address] | [place], [place] | | | [facility] | [facility] | [address] | | | TESTS | | | [...] (H) | 70 - 99 mg/dL | [facility] - | | | GLUCOSE, | [...] KEBEDE | [address] | [place], [place] | | | [facility] | [facility] | [address] | | | TESTS | | | [...] MARQUAM | [address] | [place], [place] | | | [facility] | [address] | [address] | | | TESTS | | | [...] DELIO | [address] | [place], [place] | | | [facility] | [facility] | [address] | | | TESTS | | | [...] (H) | 70 - 99 mg/dL | [facility] - | | | GLUCOSE, | [...] KEBEDE | [address] | [place], [place] | | | [facility] | [facility] | [address] | | | TESTS | | | [...] MARQUAM | [address] | [place], [place] | | | [facility] | [address] | [address] | | | TESTS | | | [...] DELIO | [address] | [place], [place] | | | [facility] | [address] | [address] | | | TESTS | | | [...] (H) | 70 - 99 mg/dL | [facility] - | | | GLUCOSE, | [...] KEBEDE | [address] | [place], [place] | | | [facility] | [address] | [address] | | | TESTS | | | [...] MARQUAM | [address] | [place], [place] | | | [facility] | [address] | [address] | | | TESTS | | | [...] - DELIO | [address] | [place], [place] | | | [facility] | [facility] | [address] | | | TESTS | | | [...] (H) | 70 - 99 mg/dL | [facility] - | | | GLUCOSE, | [...] KEBEDE | [address] | [place], [place] | | | [facility] | [address] | [address] | | | TESTS | | | [...] DELIO | [address] | [place], [place] | | | [facility] | [address] | [address] | | | TESTS | | | [...] - DELIO | [address] | [place], [place] | | | [facility] | [facility] | [address] | | | TESTS | | | [...] (H) | 70 - 99 mg/dL | [facility] - | | | GLUCOSE, | [...] KEBEDE | [address] | [place], [place] | | | [facility] | [facility] | [address] | | | TESTS | | | [...] [facility] | [address] | [place] [address] | | | SERVICES, CORE | PARK [...] | | | LABORATORY | | | BAHRAINI | | | SERVICES, | | | [...] | + + + + + | [facility] | [address] [facility] | [place] [address] | | | SERVICES, CORE | PARK [...] MARQUAM | [address] | [place], [place] | | | [facility] | [facility] | [address] | | | TESTS | | | [...] KEBEDE | [address] | [place], [place] | | | [facility] | [address] | [address] | | | TESTS | | | [...] MARQUAM | [address] | [place], [place] | | | [facility] | [address] | [address] | | | TESTS | | | [...] - MARQUAM | [address] | [place], [place] | | | [facility] | [facility] | [address] | | | TESTS | | | [...] KEBEDE | [address] | [place], [place] | | | [facility] | [address] | [address] | | | TESTS | | | [...] MARQUAM | [address] | [place], [place] | | | [facility] | [address] | [address] | | | TESTS | | | [...] - MARQUAM | [address] | [place], [place] | | | [facility] | [facility] | [address] | | | TESTS | | | [...] KEBEDE | [address] | [place], [place] | | | [facility] | [address] | [address] | | | TESTS | | | [...] MARQUAM | [address] | [place], [place] | | | [facility] | [address] | [address] | | | TESTS | | | [...] - MARQUAM | [address] | [place], [place] | | | [facility] | [address] | [address] | | | TESTS | | | [...] KEBEDE | [address] | [place], [place] | | | [facility] | [address] | [address] | | | TESTS | | | [...] MARQUAM | [address] | [place], [place] | | | [facility] | [address] | [address] | | | TESTS | | | [...] - MARQUAM | [address] | [place], [place] | | | [facility] | [address] | [address] | | | TESTS | | | [...] KEBEDE | [address] | [place], [place] | | | [facility] | [address] | [address] | | | TESTS | | | [...] MARQUAM | [address] | [place], [place] | | | [facility] | [address] | [address] | | | TESTS | | | [...] - MARMICKIEAM | [address] | [place], [place] | | | [facility] | [address] | [address] | | | TESTS | | | [...] KEBEDE | [address] | [place], [place] | | | [facility] | [address] | [address] | | | TESTS | | | [...] MARQUAM | [address] | [place], [place] | | | [facility] | [address] | [address] | | | TESTS | | | [...] - DELIO | [address] | [place], [place] | | | [facility] | [address] | [address] | | | TESTS | | | [...] KEBEDE | [address] | [place], [place] | | | [facility] | [address] | [address] | | | TESTS | | | [...] MARQUAM | [address] | [place], [place] | | | [facility] | [address] | [address] | | | TESTS | | | [...] | + + + + + | [facility] | [address] | [place] [address] | | | SERVICES, CORE | PARK [...] [facility] | [address] | [place] [address] | | | SERVICES, [place] | LANIE [...] | | | LABORATORY | | | BAHRAINI | | | SERVICES, | | | [...] | + + + + + | [facility] | [address] | [place] [address] | | | SERVICES, CORE | LANIE [...] | + + + + + | [facility] | [address] [facility] | [place] [address] | | | SERVICES, CORE | PARK [...] [facility] | [address] | [place], [place] | | | [facility] | [address] | [address] | | | TESTS | | | [...] - MAR[facility] | [address] | [place], [place] | | | [facility] | [address] | [address] | | | TESTS | | | [...] (H) | 70 - 99 mg/dL | [facility] - | | | GLUCOSE, | [...] KEBEDE | [address] | [place], [place] | | | [facility] | [address] | [address] | | | TESTS | | | [...] MARQUAM | [address] | [place], [place] | | | [facility] | [address] | [address] | | | TESTS | | | [...] MARQUAM | [address] | [place], [place] | | | [facility] | [address] | [address] | | | TESTS | | | [...] (H) | 70 - 99 mg/dL | [facility] - | | | GLUCOSE, | [...] | + + + + + | [facility] | [address] | [place], [place] | | | [facility] | [address] | [address] | | | TESTS | | | [...] MARQUAM | [address] | [place], [place] | | | [facility] | [address] | [address] | | | TESTS | | | [...] | [facility] | [address] | [place], [place] | | | [facility] | [address] | [address] | | | TESTS | | | [...] KEBEDE | [address] | [place], [place] | | | [facility] | [address] | [address] | | | TESTS | | | [...] MARQUAM | [address] | [place], [place] | | | [facility] | [address] | [address] | | | TESTS | | | [...] MARQUAM | [address] | [place], [place] | | | [facility] | [address] | [address] | | | TESTS | | | [...] KEBEDE | [address] | [place], [place] | | | [facility] | [address] | [address] | | | TESTS | | | [...] MARQUAM | [address] | [place], [place] | | | [facility] | [address] | [address] | | | TESTS | | | [...] MARQUAM | [address] | [place], [place] | | | [facility] | [address] | [address] | | | TESTS | | | [...] KEBEDE | [address] | [place], [place] | | | [facility] | [address] | [address] | | | TESTS | | | [...] MARQUAM | [address] | [place], [place] | | | [facility] | [address] | [address] | | | TESTS | | | [...] MARQUAM | [address] | [place], [place] | | | [facility] | [address] | [address] | | | TESTS | | | [...] KEBEDE | [address] | [place], [place] | | | [facility] | [address] | [address] | | | TESTS | | | [...] MARQUAM | [address] | [place], [place] | | | [facility] | [address] | [address] | | | TESTS | | | [...] | + + + + + | [facility] | [address] | [place] [address] | | | SERVICES, CORE | [address] | | | + + + + + MAGNESIUM, PLASMA (02/16/2018 1:20 AM PDT) + +---------+ + + + | Component | Value | Ref Range | Performed | Pathologist | | | | | At | Signature | + +---------+ + + + | MAGNESIUM,P | 2.9 (H) | 1.6 - 2.6 mg/dL | [facility] | | | ADAMMA | | | [...] [facility] | [address] | [place] [address] | | | [place], [place] | LANIE [...] | | | LABORATORY | | | BAHRAINI | | | SERVICES, | | | [...] | + + + + + | [facility] | [address] | [place] [address] | | | SERVICES, CORE | LANIE [...] MARQUAM | [address] | [place], [place] | | | [facility] | [address] | [address] | | | TESTS | | | [...] TAAM | [address] | [place], [place] | | | [facility] | [address] | [address] | | | TESTS | | | [...] (H) | 70 - 99 mg/dL | [facility] - | | | GLUCOSE, | [...] KEBEDE | [address] | [place], [place] | | | [facility] | [address] | [address] | | | TESTS | | | [...] MARQUAM | [address] | [place], [place] | | | [facility] | [address] | [address] | | | TESTS | | | [...] TAAM | [address] | [place], [place] | | | [facility] | [address] | [address] | | | TESTS | | | [...] KEBEDE | [address] | [place], [place] | | | [facility] | [address] | [address] | | | TESTS | | | [...] MARQUAM | [address] | [place], [place] | | | [facility] | [address] | [address] | | | TESTS | | | [...] TAAM | [address] | [place], [place] | | | [facility] | [address] | [address] | | | TESTS | | | [...] KEBEDE | [address] | [place], [place] | | | [facility] | [address] | [address] | | | TESTS | | | [...] [facility] | [address] | [place] [address] | | | SERVICES, CORE | PARK [...] | | | LABORATORY | | | BAHRAINI | | | SERVICES, | | | [...] | + + + + + | [facility] | [address] | [place] [address] | | | SERVICES, CORE | LANIE [...] (H) | 70 - 99 mg/dL | [facility] - | | | GLUCOSE, | [...] KEBEDE | [address] | [place], [place] | | | [facility] | [address] | [address] | | | TESTS | | | [...] MARQUAM | [address] | [place], [place] | | | [facility] | [address] | [address] | | | TESTS | | | [...] | + + + + + | [facility] | [address] | [place] [address] | | | [place] | PARK [...] | + + + + + | [facility] | [address] | [place] [address] | | | SERVICES, CORE | PARK [...] (H) | 70 - 99 mg/dL | [facility] - | | | GLUCOSE, | [...] KEBEDE | [address] | [place], [place] | | | [facility] | [facility] | [address] | | | TESTS | | | | + + + + + X-RAY PORTABLE CHEST 1 VIEW (02/15/2018 7:15 AM PDT) + + | Specimen | + + | | + + + + + | Narrative | Performed At | + + + | EXAM: OK CHEST 1 VIEW 02/15/18 06:12:20 HISTORY: Worsening [...] Interface - 02/15/2018 9:15 AM PDT EXAM: OK CHEST 1 | | VIEW 02/15/18 06:12:20 [...] MARQUAM | [address] | [place], [place] | | | [facility] | [facility] | [address] | | | TESTS | | | [...] KEBEDE | [address] | [place], [place] | | | [facility] | [address] | [address] | | | TESTS | | | [...] + + | [facility] | [address] [facility] | [place] [address] | | | SERVICES, CORE | PARK [...] | | | LABORATORY | | | BAHRAINI | | | SERVICES, | | | [...] [facility] | [address] | [place] [address] | | | SERVICES, CORE | PARK [...] | + + + + + | [facility] | [address] | [place] [address] | | | SERVICES, CORE | LANIE [...] (H) | 70 - 99 mg/dL | [facility] - | | | GLUCOSE, | | [...] + + + | [facility] | [address] | [place], [place] | | | [facility] | [address] | [address] | | | TESTS | | | [...] MARQUAM | [address] | [place], [place] | | | [facility] | [address] | [address] | | | TESTS | | | [...] MARQUAM | [address] | [place], [place] | | | [facility] | [address] | [address] | | | TESTS | | | [...] + + + | [facility] | [address] | [place], [place] | | | [facility] | [address] | [address] | | | TESTS | | | [...] MARQUAM | [address] | [place], [place] | | | [facility] | [address] | [address] | | | TESTS | | | [...] MARQUAM | [address] | [place], [place] | | | [facility] | [address] | [address] | | | TESTS | | | [...] + + + | [facility] | [address] | [place], [place] | | | [facility] | [address] | [address] | | | TESTS | | | [...] MARQUAM | [address] | [place], [place] | | | [facility] | [address] | [address] | | | TESTS | | | [...] DEPT OF | [address] | [place], [place] | | | CARDIOLOGY | [address] | [address] | | + + + + + [...] | + + + + + | [facility] | [address] | [place] [address] | | | SERVICES, CORE | LANIE [...] | | | LABORATORY | | | BAHRAINI | | | SERVICES, | | | [...] | + + + + + | [facility] | [address] | [place] [address] | | | SERVICES, CORE | LANIE [...] (H) | 70 - 99 mg/dL | [facility] - | | | GLUCOSE, | [...] KEBEDE | [address] | [place], [place] | | | [facility] | [address] | [address] | | | TESTS | | | [...] MARQUAM | [address] | [place], [place] | | | [facility] | [address] | [address] | | | TESTS | | | [...] - MARQU[facility] | [address] | [place], [place] | | | [facility] | [address] | [address] | | | TESTS | | | [...] (H) | 70 - 99 mg/dL | [facility] - | | | GLUCOSE, | [...] KEBEDE | [address] | [place], [place] | | | [facility] | [address] | [address] | | | TESTS | | | [...] MARQUAM | [address] | [place], [place] | | | [facility] | [address] | [address] | | | TESTS | | | [...] MARQUAM | [address] | [place], [place] | | | [facility] | [address] | [address] | | | TESTS | | | [...] + + + | [facility] | [address] | [place], [place] | | | [facility] | [address] | [address] | | | TESTS | | | [...] + | [facility] | [address] | [place] [address] | | | [place] | | | [...] TAAM | [address] | [place], [place] | | | [facility] | [address] | [address] | | | TESTS | | | [...] KEBEDE | [address] | [place], [place] | | | [facility] | [address] | [address] | | | TESTS | | | | + + + + + X-RAY PORTABLE CHEST 1 VIEW (02/14/2018 9:36 AM PDT) + + | Specimen | + + | | + + + + + | Narrative | Performed At | + + + | EXAM: OK CHEST 1 VIEW HISTORY: Fever of unknown origin. | [facility] | | COMPARISON: 02/13/2018. FINDINGS: Endotracheal tube tip | RADIOLOGY VOICE | | terminates 4 cm above the jim. Enteric tube courses below the | RECOGNITION | | diaphragm, out of the hixuv-ol-kwcb. Cardiomediastinal contour is | | | stable. [...] Interface - 02/14/2018 9:47 AM PDT EXAM: OK CHEST 1 | | VIEW HISTORY: Fever of unknown origin.COMPARISON: 02/13/2018.FINDINGS: Endotracheal tube | | tip terminates 4 cm above the jim. Enteric tube courses below the diaphragm, out of | | the dizjz-bv-vntb. Cardiomediastinal contour is stable. Increased, dense retrocardiac [...] | + + + + + | [facility] | [address] | [place] [address] | | | SERVICES, [place] | PARK [...] | + + + + + | [facility] | [address] | [place] [address] | | | [place] | LANIE [...] (H) | 70 - 99 mg/dL | [facility] - | | | GLUCOSE, | [...] DELIO | [address] | [place], [place] | | | [facility] | [address] | [address] | | | TESTS | | | [...] + + | Performing | Address | City/State[facility] | Phone Number | | Organization | | | | + + + + + | [facility] | [address] | [place], [place] | | | [facility] | [facility] | [address] | | | TESTS | | | [...] TAAM | [address] | [place], [place] | | | [facility] | [facility] | [address] | | | TESTS | | | [...] (H) | 70 - 99 mg/dL | [facility] - | | | GLUCOSE, | [...] KEBEDE | [address] | [place], [place] | | | [facility] | [address] | [address] | | | TESTS | | | [...] | + + + + + | [facility] | [address] | [place] [address] | | | [place], [place] | PARK [...] [facility] | [address] | [place] [address] | | | SERVICES, [place] | LANIE [...] | | | LABORATORY | | | BAHRAINI | | | SERVICES, | | | [...] | + + + + + | [facility] | [address] | [place] [address] | | | SERVICES, CORE | LANIE [...] MARQUAM | [address] | [place], [place] | | | [facility] | [address] | [address] | | | TESTS | | | [...] - MAR[facility] | [address] | [place], [place] | | | [facility] | [address] | [address] | | | TESTS | | | [...] KEBEDE | [address] | [place], [place] | | | [facility] | [address] | [address] | | | TESTS | | | [...] MARQUAM | [address] | [place], [place] | | | [facility] | [address] | [address] | | | TESTS | | | [...] - DELIO | [address] | [place], [place] | | | [facility] | [address] | [address] | | | TESTS | | | [...] | + + + + + | [facility] | [address] | [place] [address] | | | SERVICES, CORE | LANIE [...] (H) | 70 - 99 mg/dL | [facility] - | | | GLUCOSE, | [...] KEBEDE | [address] | [place], [place] | | | [facility] | [address] | [address] | | | TESTS | | | [...] MARQUAM | [address] | [place], [place] | | | [facility] | [facility] | [address] | | | TESTS | | | [...] MARQUAM | [address] | [place], [place] | | | [facility] | [facility] | [address] | | | TESTS | | | [...] KEBEED | [address] | [place], [place] | | | [facility] | [address] | [address] | | | TESTS | | | [...] MARQUAM | [address] | [place], [place] | | | [facility] | [facility] | [address] | | | TESTS | | | [...] MARQUAM | [address] | [place], [place] | | | [facility] | [facility] | [address] | | | TESTS | | | [...] KEBEDE | [address] | [place], [place] | | | [facility] | [address] | [address] | | | TESTS | | | [...] MARQUAM | [address] | [place], [place] | | | [facility] | [facility] | [address] | | | TESTS | | | [...] | + + + + + | [facility] | [address] | [place] [address] | | | SERVICES, CORE | LANIE [...] (H) | 70 - 99 mg/dL | [facility] - | | | GLUCOSE, | [...] KEBEDE | [address] | [place], [place] | | | [facility] | [address] | [address] | | | TESTS | | | [...] Note | + + | Service Account, [employer] Res In Interface - 02/13/2018 11:07 AM [...] MARQUAM | [address] | [place], [place] | | | [facility] | [address] | [address] | | | TESTS | | | [...] TAAM | [address] | [place], [place] | | | [facility] | [facility] | [address] | | | TESTS | | | [...] KEBEDE | [address] | [place], [place] | | | [facility] | [address] | [address] | | | TESTS | | | [...] MARQUAM | [address] | [place], [place] | | | [facility] | [address] | [address] | | | TESTS | | | [...] DELIO | [address] | [place], [place] | | | [facility] | [address] | [address] | | | TESTS | | | [...] | + + + + + | [facility] | [address] | [place] [address] | | | SERVICES, CORE | LANIE [...] (H) | 70 - 99 mg/dL | [facility] - | | | GLUCOSE, | [...] KEBEDE | [address] | [place], [place] | | | [facility] | [address] | [address] | | | TESTS | | | [...] MARQUAM | [address] | [place], [place] | | | [facility] | [address] | [address] | | | TESTS | | | [...] DELIO | [address] | [place], [place] | | | [facility] | [address] | [address] | | | TESTS | | | [...] [facility] | [address] | [place] [address] | | | SERVICES, CORE | PARK [...] [facility] | [address] | [place] [address] | | | SERVICES, CORE | PARK [...] [facility] | [address] | [place] [address] | | | [place] | PARK [...] | + + + + + | [facility] | [address] [facility] | [place] [address] | | | SERVICES, [place] | LANIE [...] | | | LABORATORY | | | BAHRAINI | | | SERVICES, | | | [...] | + + + + + | [facility] | [address] [facility] | [place] [address] | | | SERVICES, CORE | PARK [...] (H) | 70 - 99 mg/dL | [facility] - | | | GLUCOSE, | [...] KEBEDE | [address] | [place], [place] | | | [facility] | [facility] | [address] | | | TESTS | | | [...] MARQUAM | [address] | [place], [place] | | | [facility] | [facility] | [address] | | | TESTS | | | [...] (H) | 70 - 99 mg/dL | [facility] - | | | GLUCOSE, | [...] MARQUAM | [address] | [place], [place] | | | [facility] | [address] | [address] | | | TESTS | | | [...] KEBEDE | [address] | [place], [place] | | | [facility] | [facility] | [address] | | | TESTS | | | [...] - MARQUAM | [address] | [place], [place] | | | [facility] | [address] | [address] | | | TESTS | | | [...] | | | LABORATORY | | | BAHRAINI | | | SERVICES, | | | [...] | + + + + + | [facility] | [address] | [place] [address] | | | SERVICES, CORE | PARK [...] | + + + + + | [facility] | [address] | [place] [address] | | | [place] | LANIE [...] MARQUAM | [address] | [place] | | | [facility] | [address] | [address] | | | TESTS | | | [...] | [facility] | [address] | [place] [address] | | | [place] | LANIE [...] MARQUAM | [address] | [place], [place] | | | [facility] | [facility] | [address] | | | TESTS | | | [...] KEBEDE | [address] | [place], [place] | | | [facility] | [address] | [address] | | | TESTS | | | [...] MARQUAM | [address] | [place], [place] | | | [facility] | [address] | [address] | | | TESTS | | | [...] MARQUAM | [address] | [place], [place] | | | [facility] | [address] | [address] | | | TESTS | | | [...] + + + + + | [facility] | [address] | [place], [place] | | | [facility] | [address] | [address] | | | TESTS | | | [...] | + + + + + | [facility] | [address] | [place] [address] | | | SERVICES, CORE | LANIE [...] - DELIO | [address] | [place], [place] | | | [facility] | [address] | [address] | | | TESTS | | | [...] | | + +---------+ + + | [facility] | | | | | VOICE RECOGNITION | | | | + +---------+ + + X-RAY PORTABLE CHEST 1 VIEW (02/12/2018 9:17 AM PDT) + + | Specimen | + + | | + + + + + | Narrative | Performed At | + + + | STUDY: OK CHEST 1 VIEW HISTORY: Endotracheal tube placement. [...] tube terminates off the | | | [id number]-us-ugwl. Lung opacities are mostly obscured. IMPRESSION: | [...] Interface - 02/12/2018 10:14 AM PDT STUDY: OK CHEST 1 | | VIEWHISTORY: Endotracheal tube placement.COMPARISON: February 11, 2018FINDINGS: The patient | | is imaged in prone position, limiting assessment of the lungs. The endotracheal tube | | terminates at the level of the clavicles, approximately 6.7 cm above the jim. The | | transesophageal sump tube terminates off the [id number]-[id number]-efkm. Lung opacities are mostly | | obscured.IMPRESSION: [...] ransesophageal sump tube | |terminates off the ydkix-qk-cqre. Lung opacities are mostly obscured. | | [...] | | | LABORATORY | | | BAHRAINI | | | SERVICES, | | | [...] | + + + + + | [facility] | [address] | [place] [address] | | | [place] | LANIE [...] (H) | 70 - 99 mg/dL | [facility] - | | | GLUCOSE, | [...] KEBEDE | [address] | [place], [place] | | | [facility] | [address] | [address] | | | TESTS | | | [...] [facility] | [address] | [place] [address] | | | SERVICES, CORE | PARK [...] + | PATRICIA Archana DELIO | [address] [facility] [address] | [place], [place] | | | [facility] | [address] | [address] | | | TESTS | | | [...] correct patient, procedure, equipment, | | | sales support associate and site/side marked as required. CLABSI | [...] + + + | PATRICIA KEBEDE | [address] | [place], [place] | | | [facility] | [address] | [address] | | | TESTS | | | [...] [facility] | [address] | [place] [address] | | | SERVICES, CORE | LANIE [...] - MARQU[facility] | [address] | [place], [place] | | | [facility] | [address] | [address] | | | TESTS | | | [...] KEBEDE | [address] | [place], [place] | | | [facility] | [address] | [address] | | | TESTS | | | [...] | + + + + + | [facility] | [address] | [place] [address] | | | [place] [facility] | LANIE [...] | + + + + + | [facility] | [address] [facility] | [place] [address] | | | [place] | LANIE [...] | | | LABORATORY | | | [facility] | | | SERVICES, | | | [...] | + + + + + | [facility] | [address] | [place] [address] | | | SERVICES, CORE | LANIE [...] | + + + + + | [facility] | [address] | [place] [address] | | | SERVICES, CORE | PARK [...] DELIO | [address] | [place], [place] | | | [facility] | [address] | [address] | | | TESTS | | | [...] KEBEDE | [address] | [place], [place] | | | [facility] | [address] | [address] | | | TESTS | | | [...] | + + + + + | [facility] | [address] | [place] [address] | | | SERVICES, CORE | LANIE [...] MARQUAM | [address] | [place] | | | [facility] | [address] | [address] | | | TESTS | | | [...] + + | PATRICIA C[facility] | [address] | [place], [place] | | | CARDIOLOGY | [address] | [address] | | + + + + + [...] MARQUAM | [address] | [place], [place] | | | [facility] | [address] | [address] | | | TESTS | | | [...] DELIO | [address] | [place], [place] | | | [facility] | [address] | [address] | | | TESTS | | | [...] | + + + + + | [facility] | [address] | [place] [address] | | | [place] | PARK [...] DELIO | [address] | [place], [place] | | | [facility] | [facility] | [address] | | | TESTS | | | [...] (H) | 70 - 99 mg/dL | [facility] - | | | GLUCOSE, | [...] MARQUAM | [address] | [place], [place] | | | [facility] | [address] | [address] | | | TESTS | | | [...] KEBEDE | [address] | [place], [place] | | | [facility] | [facility] | [address] | | | TESTS | | | [...] [facility] | [address] | [place], [place] | | | [facility] | [facility] | [address] | | | TESTS | | | [...] | + + + + + | [facility] | [address] | [place] [address] | | | [place] | LANIE [...] + | [facility] - | [address] | [place] [address] | | | [place] | | | [...] Performed At | + + + | [facility] | [facility] DEPT OF | | [facility] Adult Echocardiography | CARDIOLOGY | | Laboratory [address] [place] [address], | | | [place] [address] Pt Name: | | | SARAH REEVES Study Date/Time 02/11/2018 / 8:54:59 | | | AMMRN: [id number] Most recent | | | prior: 0Acc #: [id number] No. previous | | | echos: 0DOB: 1955 62 years Heart Rate: | | | 91 bpmHeight: 66.0 in Blood | | | Pressure: 134/62 mm/HgWeight: 357.0 | | | lb Gender: | | | FBSA: 2.56 m2 Order | | | ID: [id number] Agriculture Technician: Trent Martinez MA, | | | [facility] Referring Provider: Chad Gamble Location: [address] [place] [address] | | | Performed: 2D, Color flow, [...] Report | | | electronically signed by: [id number] Arden Donaldson MD (02/11/2018, | | | 1:20:19 PM) Final | | | | | | | | | | | | Final | | + + + + + | Procedure Note | + + | Interface, Cardiology Results - 02/11/2018 1:20 PM [facility] | | [facility] Echocardiography Laboratory [address] [place] [address] | | [place], [place] [address] Pt Name: SARAH | | LALA Study Date/Time 02/11/2018 / 8:54:59 AMMRN: [id number] Most | | recent prior: 0Acc #: [id number] No. previous echos: 0DOB: 1955 62 | | years Heart Rate: 91 bpmHeight: 66.0 in Blood Pressure: | | 134/62 mm/HgWeight: 357.0 lb Gender: FBSA: 2.56 m2 | | Order ID: [id number] Agriculture Technician: Trent Martinez MA, RDCSReferring Provider: | | [...] Scoring: Report | | electronically signed by: [id number] Arden Donaldson MD (02/11/2018, 1:20:19 PM) Final [...] | | | |Report electronically signed by: [id number] Arden Donaldson MD (02/11/2018, 1:20:19 PM) | | | | | | | | Final | + + + + + + + | Performing | Address | City/State/Zipcode | Phone Number | | Organization | | | | + + + + + | [facility] | [address] | [place], [place] | | | CARDIOLOGY | [address] | [address] | | + + + + + LAB HOLD - URINE (02/11/2018 1:00 AM PDT) + + | Specimen | + + | Urine | + + + + + + + | Performing | Address | City/State/Zipcode | Phone Number | | Organization | | | | + + + + + | [facility] | [address] | [place] [address] | | | SERVICES, CORE | LANIE [...] | + + + + + | [facility] | [address] | [place], [place] | | | CARDIOLOGY | [address] | [address] | | + + + + + [...] RECOGNITION | | travels caudally beyond the fjgry-fs-mnna. Low lung volumes. Unchanged | | | [...] Note | + + | Service Account, [employer] Res In Interface - 02/11/2018 9:22 AM PDT STUDY: Portable | | chest radiograph HISTORY: IntubatedCOMPARISON: 02/10/2018FINDINGS: Endotracheal tube tip | | terminates approximately 5 cm above the jim. An enteric tube travels caudally beyond | | the rvjcj-hr-ulwi. Low lung volumes. Unchanged appearance of the [...] tip terminates approximately 5 cm above the jim.I have | | personally reviewed the images [...] | | + +---------+ + + | [facility]OLOGY | | | | | [...] by | | | | | | [employer],[address] | | | | | | [address] [facility] | | | | | | [address] | | | | | | [phone].WiWidelab. | | | | | | Sherwin [...] [facility] | [address] | [place], [place] | | | [facility] | | [address] | | + + + + + [...] by | | | | | | [employer],[address] | | | | | | [address], [facility] [place] | | | | | | [address] | | | | | | [phone].[employer]. | | | | | | Sherwin [...] [facility] | [address] | [place], [place] | | | UN[facility] INT[facility] | | [address] | | + + + + + [...] [facility] | [address] | [place] [address] | | | SERVICES, CORE | PARK [...] [facility] | [address] | [place] [address] | | | SERVICES, CORE | PARK [...] [facility] | [address] | [place] [address] | | | SERVICES, CORE | PARK [...] [facility] | [address] | [place] [address] | | | [place] | LANIE [...] | + + + + + | [facility] | [address] | [place] [address] | | | SERVICES, CORE | LANIE [...] | + + + + + | [facility] | [address] | [place] [address] | | | [place] | | | | + + + [...] [facility] | [address] | [place] [address] | | | SERVICES, CORE | LANIE [...] [facility] | [address] | [place] [address] | | | SERVICES, CORE | PARK [...] | + + + + + | [facility] | [address] [address] | [place] [address] | | | SERVICES, CORE | LANIE [...] | + + + + + | [facility] | [address] | [place] [address] | | | SERVICES, CORE | PARK [...] | + + + + + | [facility] | [address] | [place] [address] | | | SERVICES, CORE | PARK [...] | | | LABORATORY | | | [place] | | | SERVICES, | | | [...] | + + + + + | [facility] | [address] | [place] [address] | | | SERVICES, CORE | LANIE [...] [facility] | [address] | [place], [place] | | | [facility] CARE | [address] | [address] | | | TESTS | | | [...] | + + | SVT (supraventricular tachycardia) ([facility]) Other specified cardiac dysrhythmias | + + [...] | | | | | dose, Starting [facility] 02/14/18 at | | | | | | | 2236, Until [facility] 02/14/18 at 2237 | | | | [...] | | | | ONCE, 1 dose, [facility] 03/10/18 at 2315 | | | | [...] | | | | ONCE, 1 dose, [facility] 03/12/18 at 0115 | | | | | | + +-------+ +-------+---+---+ +---+---+ | | | +---+---+ + +-------+ +-------+---+---+ | amLODIPine (NORVASC) tablet 10 | Given | 03/15/20 | 10 mg | | | | mg 10 mg, feeding tube, DAILY, | | 18 9:02 | | | | | First dose on [facility] 02/14/18 at 1800, | | AM PDT [...] 10:26 | | | | | dose, [facility] 02/18/18 at 1030 | | AM PDT [...] 2:49 | | | | | dose, [facility] 02/14/18 at 1445 | | PM PDT | | | | + +-------+ +-------+---+---+ +---+---+ | | | +---+---+ + +-------+ +-------+---+---+ | furosemide (LASIX) injection 60 | Given | 02/21/20 | 60 mg | | | | mg 60 mg, intravenous, ONCE, | | 18 11:31 | | | | | dose, [facility] 02/20/18 at 1100 | | AM PDT [...] | | | | | | Starting [facility] 02/11/18 at 2345, | | | | | | | Until [facility] 02/14/18 at 0143 | | | | [...] | | | | First dose on [facility] 03/14/18 at 0815, | | | | [...] | | | oral, ONCE, 1 dose, [facility] 02/14/18 at | | AM PDT | [...] | | | tube, ONCE, 1 dose, [facility] 02/14/18 at | | PM PDT | | | | | 1445 | | | | | | + +-------+ +--------+---+---+ +---+---+ | | | +---+---+ + +-------+ +--------+---+---+ | potassium chloride (KLOR-CON) | Given | 02/15/20 | 40 mEq | | | | packet 40 mEq 40 mEq, feeding | | 18 7:38 | | | | | tube, ONCE, 1 dose, [facility] 02/14/18 at | | PM PDT | | | | | 1945 | | | | | | + +-------+ +--------+---+---+ +---+---+ | | | +---+---+ + +-------+ +--------+---+---+ | potassium chloride (KLOR-CON) | Given | 02/18/20 | 40 mEq | | | | packet 40 mEq 40 mEq, feeding | | 18 5:01 | | | | | tube, ONCE, 1 dose, [facility] 02/17/18 at | | AM PDT | [...] | | | doses, First dose on [facility] 02/14/18 | | | | | | | at 0630, Last dose on [facility] 02/14/18 | | | | | | [...]
--- OUTSIDE RECORDS SUMMARY | ~2019-04-06 | XMS | Encounter Summary ---
Demographics + + + | Address | [address] | | | [place] [address] | + + + | Home Phone | | + + + | Preferred Language | Unknown | + + + | Marital Status | Single | + + + | Anabaptist Affiliation | NON | + + + | Race | White | + + + | Ethnic Group | Not or | + + + Author + + + | Author | [facility] | + + + | Organization | [facility] | + + + | Address | Unknown | + + + | Phone | Unavailable | + + + Support + + + + + | Name | Relationship | Address | Phone | + + + + + | Caroline Gil | ECON | [place], [place] | | | | | [address] | | + + + + + | Van Reeves | ECON | [address] | | | | | [place] | | | | | [address] | | + + + + + | Cherelle Rea | ECON | Unknown | | + + + + + Care Team Providers + +------+ + | Care Forest Supervisor Name | Role | Phone | + +------+ + | Jamel Keyes NP | PCP | | + +------+ + Encounter Details +--------+ + + + + | Date | Type | Department | Care Team | Description | +--------+ + + + + | 02/28/ | Procedure | Diagnostic Imaging | | | | 2017 | Pass | Services at [facility] | | | | | | [address] | | | | | | [facility] | | | | | | Mailcode: [address] | | | | | | [facility] | | | | | | [place], [place] | | | | | | [address] | | | | | | [phone] | | | +--------+ + + + [...]
--- OUTSIDE RECORDS SUMMARY | ~2019-04-06 | XMS | Encounter Summary ---
Demographics + + + | Address | [address] | | | [place] [address] | + + + | Home Phone | | + + + | Preferred Language | Unknown | + + + | Marital Status | Single | + + + | Confucianism Affiliation | NON | + + + [...] + | Caroline Gil | ECON | [place], [place] | | | | | [address] | | + + + + + | Van Reeves | ECON | [address] | | | | | [place] | | | | | [address] | | + + + + + | Cherelle Rea | ECON | Unknown | | + + + + + Care Team Providers + +------+ + | Care Lining Closer Name | Role | Phone | + [...] | Event | Services at [facility] | [address] | | | | | [address] | [facility] | | | | | [facility] | [place], [place] | | | | | Mailcode: [address] | [address] | | | | | [place] [employer] | [phone] | | | | | [place], [place] | | | | | | [address] | | | | | | [phone] | | | +--------+ + + + [...]
--- OUTSIDE RECORDS SUMMARY | ~2019-04-06 | XMS | Encounter Summary ---
Demographics + + + | Address | [address] | | | [place] [address] | + + + | Home Phone | | + + + | Preferred Language | Unknown | + + + | Marital Status | Single | + + + | Worship Affiliation | NON | + + + | Race | White | + + + | Ethnic Group | Not or | + + + Author + + + | Author | [facility] | + + + | Organization | [facility] | + + + | Address | Unknown | + + + | Phone | Unavailable | + + + Support + + + + + | Name | Relationship | Address | Phone | + + + + + | Caroline Gil | ECON | [place], [place] | | | | | [address] | | + + + + + | Van Reeves | ECON | [address] | | | | | [place] | | | | | [address] | | + + + + + | Cherelle Rea | ECON | Unknown | | + + + + + Care Team Providers + +------+ + | Care Pharmacy Laboratory Technician Name | Role | Phone | [...] [place] | | | | | | [facility] Mailcode: | | | | | | [address] [place], [place] | | | | | | [address] | | | | | | [phone] | | | +--------+ + + + [...] | + + + + + | [facility] | [address] | [place] [address] | | | PATHOLOGY | [address] [...] | + + + + + | [facility] | [address] | [place] [address] | | | PATHOLOGY | [address] [...] | + + + + + | [facility] | [address] | [place] [address] | | | PATHOLOGY | [address] [...] | + + + + + | [facility] | [address] | [place] [address] | | | PATHOLOGY | [address] [...] | + + + + + | [facility] | [address] | [place] [address] | | | PATHOLOGY | [address] [...] | + + + + + | [facility] | [address] | [place] [address] | | | PATHOLOGY | [address] [...] | + + + + + | [facility] | [address] | [place] [address] | | | PATHOLOGY | [address] [...] | + + + + + | [facility] | [address] | [place], [place] [address] | | | PATHOLOGY | [address] [...] | + + + + + | [facility] | [address] | [place] [address] | | | PATHOLOGY | [address] [...] | + + + + + | [facility] | [address] | [place] [address] | | | PATHOLOGY | [address] | | | + + + + + documented in this encounter Visit Diagnoses Not on filedocumented in this encounter"
--- OUTSIDE RECORDS SUMMARY | ~2019-04-06 | XMS | Encounter Summary ---
Demographics + + + | Address | [address] | | | [place] [address] | + + + | Home Phone [...] + | Caroline Gil | ECON | [place], [place] | | | | | [address] | | + + + + + | Van Reeves | ECON | [address] | | | | | [place] | | | | | [address] | | + + + + + | Cherelle Hydro | ECON | Unknown | | + + + + + Care Team Providers + +------+ + | Care Soft Water Mechanic Name | Role | Phone | + +------+ + PCP | Unavailable | + +------+ + Encounter Details +--------+ + + + + | Date | Type | Department | Care Team | Description | +--------+ + + + + | 12/12/ | Results | | Other, Faculty | | | 1993 | Only | | [phone] | | +--------+ + + + + [...] | + + + + + | [facility] | [address] | [place] [address] | | | PATHOLOGY | [address] | | | + + + + + documented in this encounter Visit Diagnoses Not on filedocumented in this encounter"
--- OUTSIDE RECORDS SUMMARY | ~2019-04-06 | XMS | Encounter Summary ---
Demographics + + + | Address | [address] | | | [place] [address] | + + + | Home Phone [...] + | Caroline Gil | ECON | [place], [place] | | | | | [address] | | + + + + + | Van Reeves | ECON | [address] | | | | | [place] | | | | | [address] | | + + + + + | Cherelle Rea | ECON | Unknown | | + + + + + Care Team Providers + +------+ + | Care Concrete Mixer Name | Role | Phone | + [...] cribed | [facility] | | | | | | Road Mailcode: [address] | | | | | | Outpatient Clinic | | | | | | [facility], [address] | | | | | | [place], [place] | | | | | | [address] | | | | | | [phone] | | | +--------+ + + + [...] as of this encounter Progress Notes Interface, Police Specialist In - 02/22/2007 5:01 AM PDT CLINIC [...] emesis or systemic illness. Forest Matos M.D. Fishing Captain, Medicine :joya documented in this encounter Plan of Treatment Not on filedocumented as of this encounter Visit Diagnoses Not on filedocumented in this encounter"
--- OUTSIDE RECORDS SUMMARY | ~2019-04-06 | XMS | Encounter Summary ---
Demographics + + + | Address | [address] | | | [place] [address] | + + + | Home Phone [...] Author + + + | Author | [facility] | + + + | Organization | [facility] | + + + | Address | Unknown | + + + | Phone | Unavailable | + + + Support + + + + + | Name | Relationship | Address | Phone | + + + + + | Caroline Gil | ECON | [place], [place] | | | | | [address] | | + + + + + | Van Reeves | ECON | [address] | | | | | [place] | | | | | [address] | | + + + + + | Cherelle Rea | ECON | Unknown | | + + + + + Care Team Providers + +------+ + | Care Dumb Waiter Operator Name | Role | Phone | [...] | Only | [address] | [phone] | | | | | Road [place], [place] | | | | | | [address] | | | | | | [phone] | | | +--------+ + + + [...] | + + + + + | [facility] | [address] | [place] [address] | | | PATHOLOGY | [address] | | | + + + + + documented in this encounter Visit Diagnoses Not on filedocumented in this encounter"
--- OUTSIDE RECORDS SUMMARY | ~2019-04-06 | XMS | Clinical Summary ---
Demographics + + + | Address | [address] | | | [place] [address] | + + + | Home Phone | | + + + | Preferred Language | Unknown | + + + | Marital Status | | + + + | Sabianism Affiliation | Unknown | + + + | Race | Unknown | + + + | Ethnic Group | Unknown | + + + Author + + + | Author | [facility] | + + + | Organization | [facility] | + + + | Address [...] Team Providers + +------+ + | Care Utility Assembler Name | Role | Phone | [...] | | | | Activ | | [id number] | mouth. | | | | [...] | | | | | [place] [address] | | | | | | [phone] | | | | | | | [...] +------+-------+ + | MEDICARE | MEDICA | [id number] | | | [address] | | | RE | | | | [place] [address] | | | IP-OP | | | | | + +--------+ +------+-------+ + | [facility] - [employer]PS - | CHAMPV | [id number] | | | [address] [address] | | | A | | | | [place], [place] | | | | | | | [address] | + +--------+ +------+-------+ + + +--------+ +--------+ + + | Guarantor Name | Accoun | Relation to | Date | Phone | Billing Address | | | t Type | Patient | of | | | | | | | | | | + +--------+ +--------+ + + | MARICRUZ LINN | Person | Self [birth year] Home: | [address] | | | al/Hair | | 1955 | [phone] [place] [address] | | | craig | | | [phone] | | + +--------+ +--------+ + +
--- OUTSIDE RECORDS SUMMARY | ~2019-04-06 | XMS | Encounter Summary ---
Demographics + + + | Address | [address] | | | [place] [address] | + + + | Home Phone | | + + + | Preferred Language | Unknown | + + + | Marital Status | Single | + + + | Buddhist Affiliation | NON | + + + | Race | White | + + + | Ethnic Group | Not or | + + + Author + + + | Author | [facility] | + + + | Organization | [facility] | + + + | Address | Unknown | + + + | Phone | Unavailable | + + + Support + + + + + | Name | Relationship | Address | Phone | + + + + + | Caroline Gil | ECON | [place], [place] | | | | | [address] | | + + + + + | Van Reeves | ECON | [address] | | | | | [place] | | | | | [address] | | + + + + + | Cherelle Rea | ECON | Unknown | | + + + + + Care Team Providers + +------+ + | Care Manager City Name | Role | Phone | + +------+ + | Jamel Keyes NP | PCP | | + +------+ + Encounter Details +--------+ + + + + | Date | Type | Department | Care Team | Description | +--------+ + + + + | 03/04/ | Procedure | Diagnostic Imaging | | | | 2018 | Pass | Services at [facility] | | | | | | [address] | | | | | | [facility] | | | | | | Mailcode: [address] [facility] | | | | | | [facility], | | | | | | [place] [address] | | | | | | [phone] | | | +--------+ + + + [...]
[~2019-04-06 21:24] MED LIST changes: +METHYLPREDNISOLO4 M1 PO
--- OUTSIDE RECORDS SUMMARY | 2019-04-06 21:26 | XMS ---
PreManage Notification: [place] Security Community Resource Consultant Events No recent Security Events currently on file CRITERIA MET - Group Notification - [facility] CARE PROVIDERS KATHLEEN JOHNSON Nurse Practitioner: Family 07/04/2018-Current PHONE: Unknown Ivette Guerrero Vegetable Vendor/Older Adult Social Work Specialist 12/19/2018-Current PHONE: [phone] Justin Molina Vegetable Vendor/Older Adult Social Work Specialist 12/19/2018-Current PHONE: [phone] Justin Molina Primary Care 12/19/2018-Current PHONE: [phone] Maria Del Rosario has no Care Guidelines for this patient. Care History Medical/Surgical 10/22/2018 [facility] - Patient is currently established with [facility]. If patient is seen in the ED during business hours. Please contact [facility] at [facility]. Care Recommendation: This patient has had [...] providing care. E.D. VISIT COUNT (12 MO.) 5 [facility]. TOTAL 5 NOTE: Visits indicate total known visits. ED/UCC VISIT TRACKING (12 MO.) 04/06/2019 21:24 [facility] [place] TYPE: Emergency COMPLAINT: - FALL 02/03/2019 12:48 [facility] [place] TYPE: Emergency COMPLAINT: - R HIP/BACK PAIN DIAGNOSES: - Allergy status to other drugs, medicaments and biological substances status - MCFP (current) use of insulin - Major depressive disorder, single episode, unspecified - Sleep apnea, unspecified - Low back pain - Pure hypercholesterolemia, unspecified - Type 2 diabetes mellitus without complications - Unspecified asthma, uncomplicated - Obesity, unspecified - Other long-term (current) drug therapy - Lumbago with sciatica, right side - Acquired absence of both cervix and uterus - Essential (primary) hypertension 10/21/2018 21:06 [facility] [place] TYPE: Emergency COMPLAINT: - SHORTNESS OF BREATH DIAGNOSES: - Essential (primary) hypertension - Shortness of breath - Non-ST elevation (NSTEMI) myocardial infarction - Obesity, unspecified - Major depressive disorder, single episode, unspecified - Dyspnea, unspecified - Other long-term (current) drug therapy - Type 2 diabetes mellitus with hyperglycemia - Unspecified asthma, uncomplicated - Allergy status to other drugs, medicaments and biological substances status - Pure hypercholesterolemia, unspecified 06/24/2018 10:01 [facility] [place] TYPE: Emergency COMPLAINT: - VOMITING DIAGNOSES: - Type 2 diabetes mellitus with diabetic autonomic (poly)neuropathy - Gastroparesis - Obesity, unspecified - Essential (primary) hypertension - Other long-term (current) drug therapy - Pure hypercholesterolemia, unspecified - Major depressive disorder, single episode, unspecified - manager long term care (current) use of insulin - Nausea with vomiting, unspecified 05/11/2018 11:15 [facility] [place] TYPE: Emergency COMPLAINT: - FALL DIAGNOSES: - Type 2 diabetes mellitus with diabetic autonomic (poly)neuropathy - Other long-term (current) drug therapy - Pure hypercholesterolemia, unspecified - manager long term care (current) use of aspirin - Allergy status to other drugs, medicaments and biological substances status - Essential (primary) hypertension - Fall on same level, unspecified, initial encounter - PURE HYPERCHOLESTEROLEMIA, UNSPECIFIED - Headache - Unspecified asthma, uncomplicated - manager long term care (current) use of insulin - Major depressive disorder, single episode, unspecified - MCFP (current) use of inhaled steroids - Gastroparesis INPATIENT VISIT TRACKING (12 MO.) 10/22/2018 00:[address] [facility] Ralf PHILLIP TYPE: Medical Surgical DIAGNOSES: - Hypoxemia - Acute kidney failure, unspecified - Elevated white blood cell count, unspecified - Dependence on other enabling machines and devices - Type 2 diabetes mellitus without complications - Hyperkalemia - Moderate persistent asthma, uncomplicated - Obstructive sleep apnea (adult) (pediatric) - NSTEMI - Morbid (severe) obesity due to excess calories - manager long term care (current) use of insulin - Other hyperlipidemia - Abnormal levels of other serum enzymes - Acute embolism and thrombosis of unspecified deep veins of unspecified proximal lower extremity - Body mass index (BMI) 45.0-49.9, adult [id number]
[2019-04-06] MEDS ORDERED: ELIQUIS5 MG PO (21:35)
--- NOTE | 2019-04-08 19:13 | EKG ---
[facility] [address] [place] [address] Signed Sinus tachycardia with premature supraventricular complexes Septal infarct (cited on or before 05-AUG-2017) Abnormal ECG When compared with ECG of 21-OCT-2018 21:24, premature supraventricular complexes are now present Questionable change in initial forces of Septal leads Confirmed by GREG PALOMARES MD ([id number]) on 04/08/2019 7:12:46 PM Electronically Signed By: GREG PALOMARES MD 04/08/19 191 PATIENT NAME: MARICRUZ LINN SHANNA Electrocardiogram DATE OF : 55 PHYSICIAN: GREG PALOMARES MD REPORT #: [id number] REPORT IS CONFIDENTIAL AND NOT TO BE RELEASED WITHOUT AUTHORIZATION
== END 2019-04-06 23:25 | disposition home or self-care (01) ==
LOC: ED 21:24
DX: S09.90XA Unspecified injury of head, initial encounter (principal); S02.2XXA Fracture of nasal bones, initial encounter for closed fracture; R07.9 Chest pain, unspecified; E11.65 Type 2 diabetes mellitus with hyperglycemia; F32.9 Major depressive disorder, single episode, unspecified; D72.829 Elevated white blood cell count, unspecified; J45.909 Unspecified asthma, uncomplicated; I10 Essential (primary) hypertension; Z90.710 Acquired absence of both cervix and uterus; Z88.8 Allergy status to other drugs, medicaments and biological substances; Z79.4 Long term (current) use of insulin; Z79.899 Other long term (current) drug therapy; W18.30XA Fall on same level, unspecified, initial encounter
CPT/HCPCS: 70450; 71046; 72125; 73080; 80053; 81001; 84484; 85025; 93005; 93010; 99284-25

== ENCOUNTER 2021-05-06 22:09 | Emergency (ER) | payer MEDICARE, OTHER ==
[~2021-05-06] VITALS: Ht 160 cm; Wt 120.3 kg
[~2021-05-06 22:09] MED LIST changes: +DORZOLAMIDE-TI1 EACH OU; +ELIQUIS5 MG PO; +HUMALOG100 UNITS/ SUB-Q; +LANTUS100 UNITS/ SUB-Q; +LATANOPROST2.5 ML OU
--- OUTSIDE RECORDS SUMMARY | 2021-05-06 22:12 | XMS ---
PreManage Notification: MARICRUZ LINN Security Hardwood Floor Sander Events No recent Security Events currently on file CRITERIA MET - 6 ED Visits in 6 Months - PDMP - Group Notification - - 2 Visits in 30 Days CARE PROVIDERS MARIO SMITHiatrmelissa Saldaña PHONE: [phone] ADALBERTO MERRITT Internal Medicine Current PHONE: [phone] YFN GRANADOS Nurse Practitioner Current PHONE: [phone] KATHLEEN JOHNSON Nurse Practitioner: 07/04/2018-Current PHONE: [phone] [facility]ORTON Nurse Practitioner: Family Current PHONE: [phone] Corina Shepard Community Health Worker 02/16/2021-Current PHONE: [phone] Yolanda Rudolph Teacher Kindergarten/Chief Architect 12/13/2020-Current PHONE: [phone] Yolanda Rudolph Teacher Kindergarten/Chief Architect 06/12/2020-Current PHONE: [phone] IVETT Nurse Practitioner Ambreen OTERO PHONE: [phone] [facility]: [phone] [facility]: [phone] Maria Del Rosario has no Care Guidelines for this patient. Care History Medical/Surgical 06/18/2019 [facility] PATIENT WAS DISCHARGED TO [facility].\T\nbsp; PATIENT IS NON- WEIGHT BEARING L FOOT DUE TO FALL/FRACTURE AT HOME. 10/22/2018 [facility] - Patient is currently established with [facility]. If patient is seen in the ED during business hours. Please contact CHWs at [facility]. Care Recommendation: This patient has had [...] providing care. E.D. VISIT COUNT ([address] [facility] 1 [facility] [place] TOTAL 12 NOTE: Visits indicate total known visits. ED/UCC VISIT TRACKING (12 MO.) 05/06/2021 22:09 [facility] [place] TYPE: Emergency COMPLAINT: - LOW BLOOD SUGAR 04/30/2021 20:01 [facility] [place] TYPE: Emergency DIAGNOSES: - Hyperglycemia, unspecified - Other specified abnormalities of plasma proteins - VOMITING - Nausea with vomiting, unspecified 04/28/2021 08:20 [facility] [place] TYPE: Emergency DIAGNOSES: - Other specified diabetes mellitus with ketoacidosis without coma - ALTERED MENTAL STATUS - Acute cystitis without hematuria 04/15/2021 11:42 [facility] [place] TYPE: Emergency DIAGNOSES: - Unspecified foreign body in respiratory tract, part unspecified causing other injury, initial encounter - Altered mental status, unspecified - Poisoning by unspecified drugs, medicaments and biological substances, undetermined, initial encounter - Weakness - OD 04/11/2021 04:21 [facility] [place] TYPE: Emergency DIAGNOSES: - Lumbago with sciatica, right side - back pain - Other chronic pain 03/09/2021 17:17 [facility] [place] TYPE: Emergency DIAGNOSES: - Unspecified fall, initial encounter - FALL - Other injury of unspecified body region, initial encounter - Contusion of right lower leg, initial encounter 01/23/2021 10:32 [facility] [place] TYPE: Emergency DIAGNOSES: - VOMITING - Acute gastritis without bleeding - Nausea with vomiting, unspecified 12/15/2020 06:34 [facility] [place] TYPE: Emergency DIAGNOSES: - Nausea with vomiting, unspecified - VOMITING 12/12/2020 13:18 [employer] [place] TYPE: Emergency DIAGNOSES: - LEG PAIN - Contusion of right lower leg, initial encounter 11/24/2020 04:37 [facility] [place] TYPE: Emergency DIAGNOSES: - Laceration without foreign body of other part of head, initial encounter - FALL - Contusion of right upper arm, initial encounter - Contusion of other part of head, initial encounter - Contusion of right thigh, initial encounter 08/14/2020 10:00 [facility] [place] TYPE: Emergency DIAGNOSES: - VOMITING - intermediate project manager (current) use of insulin - Nausea with vomiting, unspecified - Type 2 diabetes mellitus with other specified complication 07/20/2020 09:19 [facility] [place] TYPE: Emergency DIAGNOSES: - Dermatitis, unspecified - STAPH INFECTION INPATIENT VISIT TRACKING (12 MO.) 05/01/2021 12:10 [facility] [place] TYPE: Medical Surgical COMPLAINT: - Nausea, Vomiting, Hyperglycemia DIAGNOSES: 0. Gastroparesis 04/15/2021 11:42 [facility] [place] TYPE: Medical Surgical DIAGNOSES: - Essential (primary) hypertension - Weakness - Poisoning by unspecified drugs, medicaments and biological substances, undetermined, initial encounter - Altered mental status, unspecified - Unspecified foreign body in respiratory tract, part unspecified causing other injury, initial encounter [email or web address]
== END 2021-05-07 01:13 | disposition home or self-care (01) ==
LOC: ED 22:09
DX: E11.649 Type 2 diabetes mellitus with hypoglycemia without coma (principal); T38.3X5A Adverse effect of insulin and oral hypoglycemic [antidiabetic] drugs, initial encounter; Z79.4 Long term (current) use of insulin; I10 Essential (primary) hypertension; E66.9 Obesity, unspecified; J45.909 Unspecified asthma, uncomplicated; G47.30 Sleep apnea, unspecified; E11.43 Type 2 diabetes mellitus with diabetic autonomic (poly)neuropathy; K31.84 Gastroparesis; Z88.8 Allergy status to other drugs, medicaments and biological substances; Z79.899 Other long term (current) drug therapy
CPT/HCPCS: 80053; 81001; 85025; 99285

== ENCOUNTER 2021-05-22 18:29 | Emergency (ER) | payer MEDICARE, OTHER ==
[~2021-05-22] VITALS: Ht 160 cm; Wt 120.3 kg
--- OUTSIDE RECORDS SUMMARY | 2021-05-22 18:32 | XMS ---
PreManage Notification: MARICRUZ LINN Security Power Originator Events No recent Security Events currently on file CRITERIA MET - [facility] - [facility] - 2 Visits in 30 Days - 6 ED Visits in 6 Months - Group Notification CARE PROVIDERS MARIO SMITHiatrmelissa Saldaña PHONE: [phone] ADALBERTO MERRITT Internal Medicine Current PHONE: [phone] YFN GRANADOS Nurse Practitioner Current PHONE: [phone] KATHLEEN JOHNSON Nurse Practitioner: 07/04/2018-Current PHONE: [phone] CHI NORTON Nurse Practitioner: Family Current PHONE: [phone] Corina Shepard Community Health Worker 02/16/2021-Current PHONE: [phone] Yolanda Rudolph Flash Oven Operator/Passenger Service Manager 04/12/2021-Current PHONE: [phone] Yolanda Rudolph Flash Oven Operator/Passenger Service Manager 06/12/2020-Current PHONE: [phone] IVETT Nurse Practitioner Ambreen OTERO PHONE: [phone] [facility] Current PHONE: [phone] [facility] Current PHONE: [phone] Maria Del Rosario has no Care Guidelines for this patient. Care History Medical/Surgical 06/18/2019 [facility] PATIENT WAS DISCHARGED TO [facility].\T\nbsp; PATIENT IS NON- WEIGHT BEARING L FOOT DUE TO FALL/FRACTURE AT HOME. 10/22/2018 [facility] - Patient is currently established with [facility]. If patient is seen in the ED during business hours. Please contact CHWs at [facility]. Care Recommendation: This patient has had 5 [...] providing care. E.D. VISIT COUNT (12 MO.) [address] [place] [address] [facility] TOTAL 13 NOTE: Visits indicate total known visits. ED/UCC VISIT TRACKING (12 MO.) 05/22/2021 18:29 [facility] [place] TYPE: Emergency COMPLAINT: - ALT MENTAL STATUS 05/06/2021 22:09 [facility] [place] TYPE: Emergency COMPLAINT: - LOW BLOOD SUGAR DIAGNOSES: - Type 2 diabetes mellitus with diabetic autonomic (poly)neuropathy - Sleep apnea, unspecified - Unspecified asthma, uncomplicated - Adverse effect of insulin and oral hypoglycemic [antidiabetic] drugs, initial encounter - Essential (primary) hypertension - Type 2 diabetes mellitus with hypoglycemia without coma - Obesity, unspecified - Allergy status to other drugs, medicaments and biological substances - terminal system operator (current) use of insulin - Other termite control servicer (current) drug therapy - Gastroparesis 04/30/2021 20:01 [email or web address] [place] TYPE: Emergency DIAGNOSES: - Hyperglycemia, unspecified - Other specified abnormalities of plasma proteins - VOMITING - Nausea with vomiting, unspecified 04/28/2021 08:20 [email or web address] [place] TYPE: Emergency DIAGNOSES: - Other specified diabetes mellitus with ketoacidosis without coma - ALTERED MENTAL STATUS - Acute cystitis without hematuria 04/15/2021 11:42 [facility] [place] TYPE: Emergency DIAGNOSES: - Unspecified foreign body in respiratory tract, part unspecified causing other injury, initial encounter - Altered mental status, unspecified - Poisoning by unspecified drugs, medicaments and biological substances, undetermined, initial encounter - Weakness - OD 04/11/2021 04:21 [facility] [place] TYPE: Emergency DIAGNOSES: - Lumbago with sciatica, right side - back pain - Other chronic pain 03/09/2021 17:17 [facility] [place] TYPE: Emergency DIAGNOSES: - Unspecified fall, initial encounter - FALL - Other injury of unspecified body region, initial encounter - Contusion of right lower leg, initial encounter 01/23/2021 10:32 [email or web address] [place] TYPE: Emergency DIAGNOSES: - VOMITING - Acute gastritis without bleeding - Nausea with vomiting, unspecified 12/15/2020 06:34 [facility] [place] TYPE: Emergency DIAGNOSES: - Nausea with vomiting, unspecified - VOMITING 12/12/2020 13:18 [facility] [place] TYPE: Emergency DIAGNOSES: - LEG PAIN - Contusion of right lower leg, initial encounter 11/24/2020 04:37 [facility] [place] TYPE: Emergency DIAGNOSES: - Laceration without foreign body of other part of head, initial encounter - FALL - Contusion of right upper arm, initial encounter - Contusion of other part of head, initial encounter - Contusion of right thigh, initial encounter 08/14/2020 10:00 [facility] [place] TYPE: Emergency DIAGNOSES: - VOMITING - alf (current) use of insulin - Nausea with vomiting, unspecified - Type 2 diabetes mellitus with other specified complication 07/20/2020 09:19 [facility] [place] TYPE: Emergency DIAGNOSES: - Dermatitis, unspecified - STAPH INFECTION INPATIENT VISIT TRACKING (12 MO.) 05/01/2021 12:10 [facility] [place] TYPE: Medical Surgical DIAGNOSES: 0. Gastroparesis 1. Nausea with vomiting, unspecified 1. Type 2 diabetes mellitus with diabetic autonomic (poly)neuropathy 2. Myocardial infarction type 2 3. Acute respiratory failure with hypoxia 4. Acute diastolic (congestive) heart failure 5. Acute kidney failure, unspecified 6. Hypertensive heart and chronic kidney disease with heart failure and stage 1 through stage 4 chronic kidney disease, or unspecified chronic kidney disease 7. Gastroparesis 8. Morbid (severe) obesity due to excess calories 9. Other intervertebral disc degeneration, lumbar region 10. Obstructive sleep apnea (adult) (pediatric) 11. Unspecified asthma, uncomplicated 12. Type 2 diabetes mellitus with hyperglycemia 13. Enterococcus as the cause of diseases classified elsewhere 14. Weakness 15. Disorder of kidney and ureter, unspecified 16. Type 2 diabetes mellitus with diabetic chronic kidney disease 17. Unspecified atrial fibrillation 18. Chronic kidney disease, stage 3 unspecified 19. Major depressive disorder, single episode, unspecified 20. Type 2 diabetes mellitus with diabetic neuropathy, unspecified 21. Iron deficiency anemia, unspecified 22. Personal history of other venous thrombosis and embolism 23. Body mass index [BMI] 38.0-38.9, adult 24. terminal system operator (current) use of anticoagulants 25. terminal system operator (current) use of insulin 26. Allergy status to other drugs, medicaments and biological substances 04/15/2021 11:42 [facility] [place] TYPE: Medical Surgical DIAGNOSES: - Essential (primary) hypertension - Weakness - Poisoning by unspecified drugs, medicaments and biological substances, undetermined, initial encounter - Altered mental status, unspecified - Unspecified foreign body in respiratory tract, part unspecified causing other injury, initial encounter [email or web address]
--- NOTE | 2021-05-23 14:34 | EKG ---
[facility] [address] [facility] [place] [address] Signed Normal sinus rhythm Low voltage QRS Borderline ECG When compared with ECG of 06-APR-2019 21:50, premature supraventricular complexes are no longer present QT has shortened Confirmed by ERNIE FELIX DO ([id number]) on 05/23/2021 2:34:12 PM Electronically Signed By: ERNIE FELIX DO 05/23/21 1434 PATIENT NAME: MARICRUZ LINN SHANNA Electrocardiogram DATE OF : 55 PHYSICIAN: ERNIE FELIX DO REPORT #: [id number] REPORT IS CONFIDENTIAL AND NOT TO BE RELEASED WITHOUT AUTHORIZATION
== END 2021-05-23 04:28 | disposition short-term general hospital (02) ==
LOC: ED 18:29
DX: A41.9 Sepsis, unspecified organism (principal); R65.21 Severe sepsis with septic shock; N17.9 Acute kidney failure, unspecified; R41.82 Altered mental status, unspecified; J96.90 Respiratory failure, unspecified, unspecified whether with hypoxia or hypercapnia; N39.0 Urinary tract infection, site not specified; I10 Essential (primary) hypertension; E78.00 Pure hypercholesterolemia, unspecified; E66.9 Obesity, unspecified; J45.909 Unspecified asthma, uncomplicated; Z20.822 Contact with and (suspected) exposure to COVID-19; G47.30 Sleep apnea, unspecified; E11.43 Type 2 diabetes mellitus with diabetic autonomic (poly)neuropathy; K31.84 Gastroparesis; Z88.8 Allergy status to other drugs, medicaments and biological substances; Z79.899 Other long term (current) drug therapy; Z79.4 Long term (current) use of insulin
CPT/HCPCS: 31500; 36600; 51702; 70450; 71045; 74176; 80048; 80053; 81001; 82803; 83605; 85025; 93005; 93010; 94002; 94640; 99291; 99292; C9803; J0330; J0610; J0696; J1940; J2405; J2543; J2704; J3010; J7030; U0003

== ENCOUNTER 2021-06-22 22:49 | Emergency (ER) | payer MEDICARE, OTHER ==
[~2021-06-22] VITALS: Ht 160 cm; Wt 120.3 kg
--- OUTSIDE RECORDS SUMMARY | 2021-06-22 22:52 | XMS ---
PreManage Notification: MARICRUZ LINN Security Piccoloist Events No recent Security Events currently on file CRITERIA MET - Group Notification - History of Sepsis Dx - 6 ED Visits in 6 Months - PDMP CARE PROVIDERS MARIO SMITHiatrmelissa Saldaña PHONE: [phone] ADALBERTO MERRITT Internal Medicine Current PHONE: [phone] YFN GRANADOS Nurse Practitioner Current PHONE: [phone] KATHLEEN JOHNSON Nurse Practitioner: 07/04/2018-Current PHONE: [phone] CHI NORTON Nurse Practitioner: Family Current PHONE: Unknown Corina Shepard Community Health Worker 02/16/2021-Current PHONE: [phone] Yolanda Rudolph Gm/Svp Global Publisher Business/Traffic Analysis Technician 06/12/2020-Current PHONE: [phone] Yolanda Rudolph Gm/Svp Global Publisher Business/Traffic Analysis Technician 04/12/2021-Current PHONE: [phone] IVETT Nurse Practitioner Ambreen OTERO PHONE: [phone] [facility] Current PHONE: [phone] [facility] Current PHONE: [phone] Maria Del Rosario has no Care Guidelines for this patient. Care History Medical/Surgical 06/18/2019 [facility]T\nbsp; PATIENT IS NON- WEIGHT BEARING L FOOT DUE TO FALL/FRACTURE AT HOME. 10/22/2018 [facility] - Patient is currently established with [facility]. If patient is seen in the ED during business hours. Please contact CHWs at [facility]. Care Recommendation: This patient has had [...] providing care. E.D. VISIT COUNT (12 MO.) [address] [place] [address] 3 [facility] Ramer SkylerXimena TOTAL 14 NOTE: Visits indicate total known visits. ED/UCC VISIT TRACKING (12 MO.) 06/22/2021 22:50 [facility] [place] TYPE: Emergency COMPLAINT: - FALL 05/22/2021 18:29 [facility] [place] TYPE: Emergency COMPLAINT: - ALT MENTAL STATUS DIAGNOSES: - prison (current) use of insulin - Severe sepsis with septic shock - Pure hypercholesterolemia, unspecified - Other inclusion special education teacher (current) drug therapy - Essential (primary) hypertension - Urinary tract infection, site not specified - Unspecified asthma, uncomplicated - Acute kidney failure, unspecified - Sepsis, unspecified organism - Type 2 diabetes mellitus with diabetic autonomic (poly)neuropathy - Gastroparesis - Nausea with vomiting, unspecified - Sleep apnea, unspecified - Obesity, unspecified - Altered mental status, unspecified - Respiratory failure, unspecified, unspecified whether with hypoxia or hypercapnia - Allergy status to other drugs, medicaments and biological substances 05/06/2021 22:09 [facility] [place] TYPE: Emergency [...] other drugs, medicaments and biological substances - laundry supervisor (current) use of insulin - Other inclusion special education teacher (current) drug therapy - Gastroparesis 04/30/2021 20:01 [facility] [place] TYPE: Emergency DIAGNOSES: - Hyperglycemia, unspecified - Other specified abnormalities of plasma proteins - VOMITING - Nausea with vomiting, unspecified 04/28/2021 08:20 [facility] [place] TYPE: Emergency DIAGNOSES: - Other specified diabetes mellitus with ketoacidosis without coma - ALTERED MENTAL STATUS - Acute cystitis without hematuria 04/15/2021 11:42 [facility] [place] TYPE: Emergency DIAGNOSES: - Unspecified foreign body in respiratory tract, part unspecified causing other injury, initial encounter - Altered mental status, unspecified - Poisoning by unspecified drugs, medicaments and biological substances, undetermined, initial encounter - Weakness - OD 04/11/2021 04:21 [facility] [place] TYPE: Emergency DIAGNOSES: - Lumbago with sciatica, right side - back pain - Other chronic pain 03/09/2021 17:17 [facility] [place] TYPE: Emergency DIAGNOSES: - Unspecified fall, initial encounter - FALL - Other injury of unspecified body region, initial encounter - Contusion of right lower leg, initial encounter 01/23/2021 10:32 [facility] [place] TYPE: Emergency DIAGNOSES: - VOMITING - Acute gastritis without bleeding - Nausea with vomiting, unspecified 12/15/2020 06:34 [facility] [place] TYPE: Emergency DIAGNOSES: - Nausea with vomiting, unspecified - VOMITING 12/12/2020 13:18 [facility] [place] TYPE: Emergency DIAGNOSES: - LEG PAIN - Contusion of right lower leg, initial encounter 11/24/2020 04:37 [facility] [place] TYPE: Emergency DIAGNOSES: - Laceration without foreign body of other part of head, initial encounter - FALL - Contusion of right upper arm, initial encounter - Contusion of other part of head, initial encounter - Contusion of right thigh, initial encounter 08/14/2020 10:00 [facility] [place] TYPE: Emergency DIAGNOSES: - VOMITING - prison (current) use of insulin - Nausea with vomiting, unspecified - Type 2 diabetes mellitus with other specified complication 07/20/2020 09:19 [facility] [place] TYPE: Emergency DIAGNOSES: - Dermatitis, unspecified - STAPH INFECTION INPATIENT VISIT TRACKING (12 MO.) 05/23/2021 07:16 [facility] TYPE: Internal Medicine DIAGNOSES: 0. SEPTIC SHOCK 05/01/2021 12:10 [facility] [place] TYPE: Medical Surgical DIAGNOSES: 0. Gastroparesis [...] Body mass index [BMI] 38.0-38.9, adult 24. prison (current) use of anticoagulants 25. prison (current) use of insulin 26. Allergy status to other drugs, medicaments and biological substances 04/15/2021 11:42 [facility] [place] TYPE: Medical Surgical DIAGNOSES: - Essential (primary) hypertension - Weakness - Poisoning by unspecified drugs, medicaments and biological substances, undetermined, initial encounter - Altered mental status, unspecified - Unspecified foreign body in respiratory tract, part unspecified causing other injury, initial encounter [email or web address]
[2021-06-22] MEDS ORDERED: C-10001000 MG PO (23:06)
[2021-06-22] MEDS ORDERED: [UNRECOGNIZED DRUG - OTHER] PO (23:07)
[2021-06-22] MEDS ORDERED: FEROSUL325 MG PO (23:07)
[2021-06-22] MEDS ORDERED: FUROSEMIDE20 MG PO (23:07)
[2021-06-22] MEDS ORDERED: MELATONIN5 M5 PO (23:08)
[2021-06-22] MEDS ORDERED: METOPROLOL SUC100 MG PO (23:09)
[2021-06-22] MEDS ORDERED: NORVASC10 MG PO (23:09)
[2021-06-22] MEDS ORDERED: PEPCID AC10 MG PO (23:10)
[2021-06-22] MEDS ORDERED: PROBIOTIC1 EAC1 PO (23:10)
[2021-06-22] MEDS ORDERED: REGLAN10 MG PO (23:12)
[2021-06-22] MEDS ORDERED: PAIN RELIEF650 MG PO (23:13)
[2021-06-22] MEDS ORDERED: NYSTATIN100000 UN1 PO (23:13)
[2021-06-22] MEDS ORDERED: BISACODYL10 MG PR (23:14)
[2021-06-22] MEDS ORDERED: BASE B,POLYETHYL1 GM MC (23:15)
[2021-06-22] MEDS ORDERED: ZOFRAN4 MG PO (23:16)
== END 2021-06-22 23:35 | disposition home or self-care (01) ==
LOC: ED 22:49
DX: Z04.3 Encounter for examination and observation following other accident (principal); I10 Essential (primary) hypertension; E78.00 Pure hypercholesterolemia, unspecified; E66.9 Obesity, unspecified; G47.30 Sleep apnea, unspecified; J45.909 Unspecified asthma, uncomplicated; E11.43 Type 2 diabetes mellitus with diabetic autonomic (poly)neuropathy; K31.84 Gastroparesis; Z79.899 Other long term (current) drug therapy; Z79.4 Long term (current) use of insulin
CPT/HCPCS: 99283